=== PATIENT | male | born 1935 | race Caucasian/White ===

== ENCOUNTER 2023-09-23 15:59 | Emergency (ER) | payer MEDICARE, SELFPAY ==
[2023-09-23 16:01] VITALS: BP 150/86; PULSE 76; RESP 16; TEMP 36.4; O2SAT 95; BMI 15.9
--- NOTE | 2023-09-23 16:31 | CT_ITS ---
INDICATION: trauma EXAMINATION: CT Spine Cervical W/O Contrast Injection TECHNIQUE: Helically acquired images were obtained of the cervical spine. 2D reformatted images were reviewed. A radiation dose optimization technique was used for this scan. IV Contrast dosage and agent: None. COMPARISON: None. FINDINGS: VERTEBRAE: No fracture or traumatic subluxation. No discrete lytic or blastic abnormality. Normal alignment. Normal craniocervical junction and cervicothoracic junction. 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 No critical stenosis. NECK SOFT TISSUES: No prevertebral soft tissue swelling. There is no cervical adenopathy. LUNG APICES: Clear. CT/Spine Cervical without Contras IMPRESSION: No evidence of acute cervical spinal fracture or spondylolisthesis. Severe multilevel degenerative disc disease and spondylosis. Electronically Signed: Abdi Lester MD at 17:35 EST ,
--- NOTE | 2023-09-23 16:31 | CT_ITS ---
EXAMINATION : Head CT w/out contrast HISTORY : trauma COMPARISON : None. TECHNIQUE : Multiple contiguous axial images were obtained from the skull base to the vertex without intravenous contrast. A radiation dose optimization technique was used for this scan. FINDINGS : There is no evidence for acute intracranial hemorrhage, mass effect, or midline shift. There is no extra-axial fluid collection. There are periventricular white matter changes consistent with chronic microvascular ischemic disease. There is sulcal widening and ventricular enlargement consistent with cerebral atrophy. There is normal werner-white differentiation, without CT evidence of acute ischemia or infarct. The skull base and calvarium are unremarkable. The orbits are unremarkable. The paranasal sinuses are clear. The mastoid air cells are well-aerated. The soft tissues are unremarkable. CT/Brain/Head without Contrast IMPRESSION: No acute intracranial abnormality. Chronic involutional and ischemic changes of the brain. Electronically Signed: Abdi Lester MD at 17:31 EST ,
--- NOTE | 2023-09-23 16:31 | EX.ED.DYSGE1 ---
HPI History of Present Illness Chief Complaint: Fall Informant: patient, family, EMS and SNF Onset/Context/Timing Onset: Today Narrative Narrative: Patient presents via EMS secondary to fall. Patient is currently a resident at the [facility] home and has a history of dementia. He was diagnosed with COVID on September 10 and was hospitalized for short time. Patient reportedly had a fall at 230 this afternoon falling backwards and striking his head. There is no reported loss of consciousness. Patient apparently was complaining of neck pain. He was placed in a c-collar. At this time patient denies any pain. Daughter is at bedside and states he seems to be acting his normal self. He takes aspirin daily but is on no other form of anticoagulation. [facility] Medical History (Updated 09/23/23 @ 17:[address] Iman Webster MD) Anxiety and depression Dementia Diabetes High cholesterol Hypertension Osteoporosis Allergy/AdvReac Type Severity Reaction Status Date / Time No Known Allergies Allergy Verified 09/23/23 16:00 ROS ROS ED ROS Narrative Review of systems limited given the patient's baseline dementia. He denies any complaints to me at this time. Review of Systems ROS Unobtainable: due to mental condition EXAM Physical Exam Const Vital Signs: 09/23/23 16:01 Temperature 97.6 F L Temperature Source Temporal Pulse Rate 76 Respiratory Rate 16 Blood Pressure 150/86 H Blood Pressure Mean 107 Pulse Ox 95 Oxygen Delivery Method Room Air Positive cachectic General Appearance ED: cachectic Nutritional Appearance: cachectic HEENT Reports moist mucous membranes Eyes EOMs intact bilaterally Neck Neck Narrative: C-collar in place. Chest Wall inspection of chest normal and palpation of chest normal Resp normal respiratory effort and clear to auscultation bilaterally Cardio regular rate and regular rhythm GI non-tender Palpation: soft Extremity Extremity Narrative: Moves both upper extremities without difficulty. Equal leg lengths noted to the lower extremities. No pain with logroll or hip manipulation. Neuro Neuro Narrative: Patient alert and answers questions best he can. Baseline dementia. No focal neurologic deficit noted. Skin no rashes or lesions noted MDM MDM MDM Narrative Medical decision making narrative: Patient was sent for CT scan of the head and C-spine to evaluate for fracture, intracranial bleed, edema. Radiography Diagnostic Testing: Clinical Impression(s) from Imaging Studies Brain CT 09/23/23 16:31 IMPRESSION: No acute intracranial abnormality. Chronic involutional and ischemic changes of the brain. Electronically Signed: Abdi Lester MD at 17:31 EST , Cervical Spine CT 09/23/23 16:31 IMPRESSION: No evidence of acute cervical spinal fracture or spondylolisthesis. Severe multilevel degenerative disc disease and spondylosis. Electronically Signed: Abdi Lester MD at 17:35 EST , Treatment and Re-Evaluation :: CT scan of the head reveals no acute intracranial abnormality. Chronic changes noted. CT of the C-spine reveals no evidence of fracture or spondylolisthesis. Degenerative disc disease noted. On repeat evaluation patient remains resting comfortably in bed. C-collar was removed. Test results discussed with the patient as well as his daughter at bedside. He will be discharged back to the [facility]. Return instructions given. Discharge Plan Triage Chief Complaint: Fall ED Provider: Iman Webster Dx/Rx/DC Orders Clinical Impression: CHI (closed head injury), Fall Instructions: ED Head Injury (Adult) Primary Care Provider: Javy Lynn Sr. Referrals: Javy Lynn Sr., DO [Primary Care Provider] - As Needed Disposition Disposition: Alf Facility Discharge Location: [facility]
== END 2023-09-23 18:43 | disposition skilled nursing facility (03) ==
PROVIDERS: Emergency Provider Emergency Medicine; PCP Internal Medicine; Visit Provider Emergency Medicine
DX: S09.8XXA Other specified injuries of head, initial encounter (principal); E11.9 Type 2 diabetes mellitus without complications; I10 Essential (primary) hypertension; E78.00 Pure hypercholesterolemia, unspecified; W18.30XA Fall on same level, unspecified, initial encounter; Y92.89 Other specified places as the place of occurrence of the external cause
CPT/HCPCS: 70450; 72125; 99284

== ENCOUNTER → 2023-11-02 | Outpatient (REF) | payer MEDICARE, SELFPAY ==
[2023-11-02 09:56] LABS: Mucous, Urine 0 SEEN /hpf (<or=2+); Red Blood Cells-Urine 0 SEEN /hpf (0-5); Squamous Epithelial Cells - UA 0 SEEN /hpf (0-5)
[2023-11-02 10:01] LABS: Color, Urine Yellow (Yellow); Glucose, Dipstick Normal (Normal); Ketone-Dipstick Negative (Negative); Leukocyte Esterase-Dipstick 100 /ul (Negative); Nitrite-Dipstick Negative (Negative); Occult Blood-Urine 10 /ul (Negative); Protein-Dipstick 15 mg/dl (Negative); Specific Gravity, Urine 1.015 (1.002-1.030); Urine Bilirubin Dipstick Negative (Negative); Urine Clarity Clear (Clear); Urine Urobilinogen Normal (Normal); Urine pH 6.5 (5.0 - 8.0)
[2023-11-02 10:33] LABS: Bacteria 1+ /hpf (None Seen); White Blood Cells 10-25 SEEN /hpf (0-5)
== END ==
LOC: OLS.ACH 05:00
PROVIDERS: PCP Internal Medicine; Visit Provider Internal Medicine
DX: N39.0 Urinary tract infection, site not specified (principal)
CPT/HCPCS: 81001; 87077; 87086; 87088; 87186

== ENCOUNTER → 2023-12-05 | Outpatient (REF) | payer MEDICARE, SELFPAY ==
[2023-12-05 09:11] LABS: Hematocrit 37.4 % (40-54); Hemoglobin 12.2 g/dL (13.0-16.5); Mean Corp Hgb Conc 32.6 g/dL (32-36); Mean Corpuscular Hgb 29.8 pg (27.0-32.0); Mean Corpuscular Volume 91.2 fL (80-94); Mean Platelet Vol. 11.9 fl (6.2-12.0); Platelet Count 138 K/mm3 (150-450); RBC Distribution Width CV 13.2 % (11.6-14.6)
[2023-12-05 09:45] LABS: ALB/GLOB Ratio 0.8 RATIO (0.9-2.4); AST(SGOT) 26 U/L (15-37); Alanine Aminotransfer ALT/SGPT 32 U/L (16-61); Albumin, Serum 3.1 g/dL (3.2-5.0); Alkaline Phosphatase 114 U/L (45-117); Anion Gap 8 (5-15); BUN 40 mg/dL (7-18); BUN/Creat Ratio 33.1 RATIO (10-20); Calcium,Total 9.4 mg/dL (8.5-10.1); Chloride 107 mmol/L (98-107); Creatinine, Serum 1.21 mg/dL (0.70-1.30); EST Glomerular Filtration Rate 60 mL/min (>60); Est Glom Filt Rate - Afr Amer 73 mL/min (>60); Globulin 3.7 g/dL (2.2-4.2); Glucose 109 mg/dL (74-106); Potassium 4.6 mmol/L (3.5-5.1); Protein, Total 6.8 g/dL (6.4-8.2); Sodium Level 140 mmol/L (136-145)
== END ==
LOC: OLS.ACH 05:00
PROVIDERS: PCP Internal Medicine; Visit Provider Internal Medicine
DX: I10 Essential (primary) hypertension (principal); E78.5 Hyperlipidemia, unspecified; E11.3293 Type 2 diabetes mellitus with mild nonproliferative diabetic retinopathy without macular edema, bilateral
CPT/HCPCS: 36415; 80053; 85027

== ENCOUNTER → 2024-01-14 | Outpatient (REF) | payer MEDICARE, SELFPAY ==
[2024-01-14 09:46] LABS: Hematocrit 39.3 % (40-54); Hemoglobin 12.3 g/dL (13.0-16.5); Mean Corp Hgb Conc 31.3 g/dL (32-36); Mean Corpuscular Hgb 29.2 pg (27.0-32.0); Mean Corpuscular Volume 93.3 fL (80-94); Mean Platelet Vol. 12.2 fl (6.2-12.0); Platelet Count 131 K/mm3 (150-450); RBC Distribution Width CV 13.3 % (11.6-14.6); RBC Distribution Width SD 45.5 fl (35.1-43.9); Red Blood Count 4.21 M/mm3 (4.6-6.2); White Blood Count 4.9 K/mm3 (4.4-11.0)
[2024-01-14 10:17] LABS: Anion Gap 3 (5-15); BUN 36 mg/dL (7-18); BUN/Creat Ratio 28.1 RATIO (10-20); Calcium,Total 9.8 mg/dL (8.5-10.1); Chloride 108 mmol/L (98-107); Creatinine, Serum 1.28 mg/dL (0.70-1.30); EST Glomerular Filtration Rate 56 mL/min (>60); Est Glom Filt Rate - Afr Amer 68 mL/min (>60); Glucose 114 mg/dL (74-106); Potassium 4.9 mmol/L (3.5-5.1); Sodium Level 143 mmol/L (136-145)
== END ==
LOC: OLS.ACH 04:00
PROVIDERS: PCP Internal Medicine; Referring Provider Internal Medicine; Visit Provider Internal Medicine
DX: R31.9 Hematuria, unspecified (principal)
CPT/HCPCS: 36415; 80048; 85027

== ENCOUNTER → 2024-01-24 | Outpatient (REF) | payer MEDICARE, SELFPAY ==
[2024-01-24 08:42] LABS: Hemoglobin 11.6 g/dL (13.0-16.5); Mean Corp Hgb Conc 32.2 g/dL (32-36); Mean Corpuscular Hgb 29.4 pg (27.0-32.0); Mean Corpuscular Volume 91.1 fL (80-94); Mean Platelet Vol. 11.8 fl (6.2-12.0); Platelet Count 155 K/mm3 (150-450); RBC Distribution Width SD 43.4 fl (35.1-43.9); Red Blood Count 3.95 M/mm3 (4.6-6.2); White Blood Count 4.1 K/mm3 (4.4-11.0)
== END ==
LOC: OLS.ACH 05:00
PROVIDERS: PCP Internal Medicine; Visit Provider Internal Medicine
DX: K92.1 Melena (principal)
CPT/HCPCS: 36415; 85027

== ENCOUNTER → 2024-03-05 | Outpatient (REF) | payer MEDICARE, SELFPAY ==
[2024-03-05 07:15] LABS: Hematocrit 37.9 % (40-54); Hemoglobin 12.2 g/dL (13.0-16.5); Mean Corp Hgb Conc 32.2 g/dL (32-36); Mean Platelet Vol. 11.3 fl (6.2-12.0); Platelet Count 187 K/mm3 (150-450); RBC Distribution Width CV 13.2 % (11.6-14.6); Red Blood Count 4.21 M/mm3 (4.6-6.2); White Blood Count 7.2 K/mm3 (4.4-11.0)
== END ==
LOC: OLS.ACH 04:00
PROVIDERS: PCP Internal Medicine; Referring Provider Internal Medicine; Visit Provider Internal Medicine
DX: I10 Essential (primary) hypertension (principal); E43 Unspecified severe protein-calorie malnutrition
CPT/HCPCS: 36415; 85027

== ENCOUNTER → 2024-03-18 05:00 | Outpatient (REF) | payer MEDICARE, SELFPAY ==
[2024-03-18 10:39] LABS: Hemoglobin A1c 7.1 % (3.8-5.6)
== END ==
LOC: OLS.ACH 05:00
PROVIDERS: PCP Internal Medicine; Visit Provider Internal Medicine
DX: E11.3293 Type 2 diabetes mellitus with mild nonproliferative diabetic retinopathy without macular edema, bilateral (principal)
CPT/HCPCS: 36415; 83036

== ENCOUNTER → 2024-04-01 05:00 | Outpatient (REF) | payer MEDICARE, SELFPAY ==
[2024-04-01 09:50] LABS: Hematocrit 37.7 % (40-54); Mean Corp Hgb Conc 31.8 g/dL (32-36); Mean Corpuscular Hgb 29.3 pg (27.0-32.0); Mean Platelet Vol. 11.6 fl (6.2-12.0); Platelet Count 135 K/mm3 (150-450); RBC Distribution Width CV 13.7 % (11.6-14.6); RBC Distribution Width SD 46.4 fl (35.1-43.9); White Blood Count 4.4 K/mm3 (4.4-11.0)
[2024-04-01 10:23] LABS: Valproic Acid (Depakene) Level 16 ug/mL (50-100)
[2024-04-01 10:28] LABS: ALB/GLOB Ratio 0.9 RATIO (0.9-2.4); AST(SGOT) 15 U/L (15-37); Alanine Aminotransfer ALT/SGPT 25 U/L (16-61); Albumin, Serum 3.3 g/dL (3.2-5.0); Alkaline Phosphatase 115 U/L (45-117); Anion Gap 5 (5-15); BUN 41 mg/dL (7-18); BUN/Creat Ratio 34.7 RATIO (10-20); Calcium,Total 9.6 mg/dL (8.5-10.1); Chloride 105 mmol/L (98-107); Creatinine, Serum 1.18 mg/dL (0.70-1.30); EST Glomerular Filtration Rate 62 mL/min (>60); Est Glom Filt Rate - Afr Amer 75 mL/min (>60); Globulin 3.7 g/dL (2.2-4.2); Glucose 156 mg/dL (74-106); Potassium 4.2 mmol/L (3.5-5.1); Sodium Level 139 mmol/L (136-145)
== END ==
LOC: OLS.ACH 05:00
PROVIDERS: PCP Internal Medicine; Visit Provider Internal Medicine
DX: R45.1 Restlessness and agitation (principal); E43 Unspecified severe protein-calorie malnutrition; E78.5 Hyperlipidemia, unspecified; I10 Essential (primary) hypertension; E11.51 Type 2 diabetes mellitus with diabetic peripheral angiopathy without gangrene; F03.911 Unspecified dementia, unspecified severity, with agitation
CPT/HCPCS: 36415; 80053; 80164; 85027

== ENCOUNTER → 2024-06-09 05:00 | Outpatient (REF) | payer MEDICARE, SELFPAY ==
[2024-06-09 10:13] LABS: Hemoglobin A1c 7.4 % (3.8-5.6)
== END ==
LOC: OLS.ACH 05:00
PROVIDERS: PCP Internal Medicine; Visit Provider Internal Medicine
DX: E11.3293 Type 2 diabetes mellitus with mild nonproliferative diabetic retinopathy without macular edema, bilateral (principal)
CPT/HCPCS: 36415; 83036

== ENCOUNTER → 2024-06-10 04:27 | Outpatient (REF) | payer MEDICARE, SELFPAY ==
[2024-06-10 13:56] LABS: Hemoglobin A1c 7.4 % (3.8-5.6)
== END ==
LOC: OLS.ACH 04:27
PROVIDERS: PCP Internal Medicine; Visit Provider Internal Medicine
DX: E11.3293 Type 2 diabetes mellitus with mild nonproliferative diabetic retinopathy without macular edema, bilateral (principal)
CPT/HCPCS: 36415; 83036

== ENCOUNTER → 2024-07-18 | Outpatient (REF) | payer MEDICARE, SELFPAY ==
[2024-07-18 09:25] LABS: Hematocrit 38.7 % (40-54); Hemoglobin 12.3 g/dL (13.0-16.5); Mean Corp Hgb Conc 31.8 g/dL (32-36); Mean Corpuscular Hgb 29.3 pg (27.0-32.0); Mean Corpuscular Volume 92.1 fL (80-94); Mean Platelet Vol. 11.9 fl (6.2-12.0); Platelet Count 165 K/mm3 (150-450); RBC Distribution Width SD 43.7 fl (35.1-43.9); White Blood Count 5.4 K/mm3 (4.4-11.0)
[2024-07-18 09:35] LABS: Anion Gap 7 (5-15); BUN 38 mg/dL (7-18); BUN/Creat Ratio 28.8 RATIO (10-20); Calcium,Total 9.7 mg/dL (8.5-10.1); Chloride 104 mmol/L (98-107); Creatinine, Serum 1.32 mg/dL (0.70-1.30); EST Glomerular Filtration Rate 54 mL/min (>60); Est Glom Filt Rate - Afr Amer 66 mL/min (>60); Glucose 252 mg/dL (74-106); Potassium 4.2 mmol/L (3.5-5.1); Sodium Level 138 mmol/L (136-145)
== END ==
LOC: OLS.ACH 05:00
PROVIDERS: PCP Internal Medicine; Visit Provider Internal Medicine
DX: I10 Essential (primary) hypertension (principal); E11.3293 Type 2 diabetes mellitus with mild nonproliferative diabetic retinopathy without macular edema, bilateral
CPT/HCPCS: 36415; 80048; 85027

== ENCOUNTER → 2024-08-04 | Outpatient (REF) | payer MEDICARE, SELFPAY ==
[2024-08-04 08:13] LABS: Mucous, Urine 0 SEEN /hpf (<or=2+); Red Blood Cells-Urine 0 SEEN /hpf (0-5)
[2024-08-04 08:31] LABS: Hematocrit 36.7 % (40-54); Mean Corp Hgb Conc 32.7 g/dL (32-36); Mean Corpuscular Hgb 29.9 pg (27.0-32.0); Mean Corpuscular Volume 91.5 fL (80-94); Mean Platelet Vol. 11.4 fl (6.2-12.0); Platelet Count 151 K/mm3 (150-450); RBC Distribution Width CV 13.1 % (11.6-14.6); RBC Distribution Width SD 43.4 fl (35.1-43.9); Red Blood Count 4.01 M/mm3 (4.6-6.2); White Blood Count 6.9 K/mm3 (4.4-11.0)
[2024-08-04 08:46] LABS: Anion Gap 6 (5-15); BUN 36 mg/dL (7-18); BUN/Creat Ratio 26.7 RATIO (10-20); Calcium,Total 9.6 mg/dL (8.5-10.1); Chloride 103 mmol/L (98-107); Creatinine, Serum 1.35 mg/dL (0.70-1.30); EST Glomerular Filtration Rate 53 mL/min (>60); Est Glom Filt Rate - Afr Amer 64 mL/min (>60); Glucose 216 mg/dL (74-106); Potassium 4.4 mmol/L (3.5-5.1); Sodium Level 138 mmol/L (136-145)
[2024-08-04 09:17] LABS: Color, Urine Yellow (Yellow); Glucose, Dipstick 250 mg/dl (Normal); Ketone-Dipstick Negative (Negative); Leukocyte Esterase-Dipstick 500 /ul (Negative); Nitrite-Dipstick Negative (Negative); Occult Blood-Urine 50 /ul (Negative); Protein-Dipstick 100 mg/dl (Negative); Urine Bilirubin Dipstick Negative (Negative); Urine Clarity Sl. Cloudy (Clear); Urine Urobilinogen Normal (Normal)
[2024-08-04 09:31] LABS: Bacteria 1+ /hpf (None Seen)
[2024-08-04 09:32] LABS: White Blood Cells 50-100 SEEN /hpf (0-5)
[2024-08-04 09:34] LABS: Squamous Epithelial Cells - UA 0-5 SEEN /hpf (0-5)
== END ==
LOC: OLS.ACH 04:00
PROVIDERS: PCP Internal Medicine; Visit Provider Internal Medicine
DX: N40.1 Benign prostatic hyperplasia with lower urinary tract symptoms (principal); R62.7 Adult failure to thrive; R39.9 Unspecified symptoms and signs involving the genitourinary system
CPT/HCPCS: 36415; 80048; 81001; 85027; 87086; 87088

== ENCOUNTER → 2024-08-06 | Outpatient (REF) | payer MEDICARE, SELFPAY ==
[2024-08-06 09:33] LABS: Hematocrit 40.3 % (40-54); Hemoglobin 13.3 g/dL (13.0-16.5); Mean Corpuscular Hgb 30.4 pg (27.0-32.0); Mean Corpuscular Volume 92.2 fL (80-94); Mean Platelet Vol. 11.6 fl (6.2-12.0); Platelet Count 161 K/mm3 (150-450); RBC Distribution Width CV 13.1 % (11.6-14.6); RBC Distribution Width SD 43.8 fl (35.1-43.9); Red Blood Count 4.37 M/mm3 (4.6-6.2); White Blood Count 4.9 K/mm3 (4.4-11.0)
== END ==
LOC: OLS.ACH 05:00
PROVIDERS: PCP Internal Medicine; Visit Provider Internal Medicine
DX: R53.1 Weakness (principal); R31.9 Hematuria, unspecified
CPT/HCPCS: 36415; 85027

== ENCOUNTER → 2024-08-27 | Outpatient (REF) | payer MEDICARE, SELFPAY ==
[2024-08-27 07:52] LABS: Hematocrit 33.9 % (40-54); Mean Corp Hgb Conc 32.4 g/dL (32-36); Mean Corpuscular Hgb 29.6 pg (27.0-32.0); Mean Corpuscular Volume 91.4 fL (80-94); Mean Platelet Vol. 11.2 fl (6.2-12.0); Platelet Count 153 K/mm3 (150-450); RBC Distribution Width CV 13.2 % (11.6-14.6); RBC Distribution Width SD 43.2 fl (35.1-43.9); Red Blood Count 3.71 M/mm3 (4.6-6.2); White Blood Count 5.2 K/mm3 (4.4-11.0)
[2024-08-27 08:06] LABS: Anion Gap 5 (5-15); BUN 34 mg/dL (7-18); BUN/Creat Ratio 28.1 RATIO (10-20); Calcium,Total 9.1 mg/dL (8.5-10.1); Chloride 104 mmol/L (98-107); Creatinine, Serum 1.21 mg/dL (0.70-1.30); EST Glomerular Filtration Rate 60 mL/min (>60); Est Glom Filt Rate - Afr Amer 73 mL/min (>60); Glucose 181 mg/dL (74-106); Potassium 4.6 mmol/L (3.5-5.1); Sodium Level 137 mmol/L (136-145)
[2024-08-27 08:34] LABS: Color, Urine Yellow (Yellow); Glucose, Dipstick 250 mg/dl (Normal); Ketone-Dipstick Negative (Negative); Leukocyte Esterase-Dipstick 500 /ul (Negative); Nitrite-Dipstick Negative (Negative); Occult Blood-Urine 250 /ul (Negative); Protein-Dipstick 30 mg/dl (Negative); Specific Gravity, Urine 1.005 (1.002-1.030); Urine Bilirubin Dipstick Negative (Negative); Urine Clarity Sl. Cloudy (Clear); Urine Urobilinogen Normal (Normal)
== END ==
LOC: OLS.ACH 05:00
PROVIDERS: PCP Internal Medicine; Visit Provider Internal Medicine
DX: N40.1 Benign prostatic hyperplasia with lower urinary tract symptoms (principal); R39.9 Unspecified symptoms and signs involving the genitourinary system
CPT/HCPCS: 36415; 80048; 81002; 85027; 87077; 87086; 87088; 87186

== ENCOUNTER → 2024-09-02 | Outpatient (REF) | payer MEDICARE, SELFPAY ==
[2024-09-02 10:06] LABS: Hemoglobin A1c 8.6 % (3.8-5.6)
== END ==
LOC: OLS.ACH 05:00
PROVIDERS: PCP Internal Medicine; Visit Provider Internal Medicine
DX: E11.3293 Type 2 diabetes mellitus with mild nonproliferative diabetic retinopathy without macular edema, bilateral (principal)
CPT/HCPCS: 36415; 83036

== ENCOUNTER → 2024-09-17 05:00 | Outpatient (REF) | payer MEDICARE, SELFPAY ==
[2024-09-17 07:38] LABS: Bacteria 0 SEEN /hpf (None Seen); Mucous, Urine 0 SEEN /hpf (<or=2+); Squamous Epithelial Cells - UA 0 SEEN /hpf (0-5)
[2024-09-17 07:55] LABS: Mean Corp Hgb Conc 33.3 g/dL (32-36); Mean Corpuscular Hgb 30.5 pg (27.0-32.0); Mean Corpuscular Volume 91.6 fL (80-94); Platelet Count 119 K/mm3 (150-450); RBC Distribution Width CV 13.2 % (11.6-14.6); RBC Distribution Width SD 44.2 fl (35.1-43.9); Red Blood Count 3.93 M/mm3 (4.6-6.2)
[2024-09-17 07:56] LABS: Color, Urine Amber (Yellow); Glucose, Dipstick Normal (Normal); Ketone-Dipstick 5 mg/dl (Negative); Leukocyte Esterase-Dipstick 500 /ul (Negative); Nitrite-Dipstick Positive (Negative); Occult Blood-Urine 250 /ul (Negative); Protein-Dipstick 100 mg/dl (Negative); Urine Bilirubin Dipstick Negative (Negative); Urine Clarity Cloudy (Clear); Urine Urobilinogen Normal (Normal); Urine pH 6.5 (5.0 - 8.0)
[2024-09-17 08:03] LABS: Red Blood Cells-Urine > 100 SEEN /hpf (0-5); White Blood Cells >100 SEEN /hpf (0-5)
[2024-09-17 08:16] LABS: ALB/GLOB Ratio 0.8 RATIO (0.9-2.4); AST(SGOT) 17 U/L (15-37); Alanine Aminotransfer ALT/SGPT 24 U/L (16-61); Albumin, Serum 2.9 g/dL (3.2-5.0); Alkaline Phosphatase 97 U/L (45-117); Anion Gap 5 (5-15); BUN 41 mg/dL (7-18); BUN/Creat Ratio 26.8 RATIO (10-20); Chloride 104 mmol/L (98-107); Creatinine, Serum 1.53 mg/dL (0.70-1.30); EST Glomerular Filtration Rate 46 mL/min (>60); Est Glom Filt Rate - Afr Amer 55 mL/min (>60); Globulin 3.5 g/dL (2.2-4.2); Glucose 172 mg/dL (74-106); Potassium 4.4 mmol/L (3.5-5.1); Protein, Total 6.4 g/dL (6.4-8.2); Sodium Level 138 mmol/L (136-145); Valproic Acid (Depakene) Level 10 ug/mL (50-100)
== END ==
LOC: OLS.ACH 05:00
PROVIDERS: PCP Internal Medicine; Visit Provider Internal Medicine
DX: F03.911 Unspecified dementia, unspecified severity, with agitation (principal); J96.11 Chronic respiratory failure with hypoxia; R30.0 Dysuria; N40.1 Benign prostatic hyperplasia with lower urinary tract symptoms
CPT/HCPCS: 36415; 80053; 80164; 81001; 85027; 87077; 87086; 87088

== ENCOUNTER → 2024-10-07 | Outpatient (REF) | payer MEDICARE, SELFPAY ==
[2024-10-07 07:35] LABS: Hematocrit 38.2 % (40-54); Hemoglobin 12.2 g/dL (13.0-16.5); Mean Corp Hgb Conc 31.9 g/dL (32-36); Mean Corpuscular Hgb 29.9 pg (27.0-32.0); Mean Corpuscular Volume 93.6 fL (80-94); Mean Platelet Vol. 11.6 fl (6.2-12.0); Platelet Count 173 K/mm3 (150-450); RBC Distribution Width CV 12.9 % (11.6-14.6); RBC Distribution Width SD 44.7 fl (35.1-43.9); Red Blood Count 4.08 M/mm3 (4.6-6.2); White Blood Count 3.9 K/mm3 (4.4-11.0)
[2024-10-07 08:08] LABS: ALB/GLOB Ratio 0.8 RATIO (0.9-2.4); AST(SGOT) 20 U/L (15-37); Alanine Aminotransfer ALT/SGPT 18 U/L (16-61); Albumin, Serum 2.8 g/dL (3.2-5.0); Alkaline Phosphatase 112 U/L (45-117); Anion Gap 5 (5-15); BUN 38 mg/dL (7-18); BUN/Creat Ratio 31.9 RATIO (10-20); Calcium,Total 9.1 mg/dL (8.5-10.1); Chloride 109 mmol/L (98-107); Creatinine, Serum 1.19 mg/dL (0.70-1.30); EST Glomerular Filtration Rate 61 mL/min (>60); Est Glom Filt Rate - Afr Amer 74 mL/min (>60); Globulin 3.7 g/dL (2.2-4.2); Glucose 89 mg/dL (74-106); Potassium 4.4 mmol/L (3.5-5.1); Protein, Total 6.5 g/dL (6.4-8.2); Sodium Level 139 mmol/L (136-145)
== END ==
LOC: OLS.ACH 05:00
PROVIDERS: PCP Internal Medicine; Visit Provider Internal Medicine
DX: E11.51 Type 2 diabetes mellitus with diabetic peripheral angiopathy without gangrene (principal); E78.5 Hyperlipidemia, unspecified
CPT/HCPCS: 36415; 80053; 85027

== ENCOUNTER → 2024-11-07 05:00 | Outpatient (REF) | payer MEDICARE, SELFPAY ==
[2024-11-07 08:27] LABS: Hematocrit 40.2 % (40-54); Hemoglobin 12.8 g/dL (13.0-16.5); Mean Corp Hgb Conc 31.8 g/dL (32-36); Mean Corpuscular Hgb 29.5 pg (27.0-32.0); Mean Corpuscular Volume 92.6 fL (80-94); Mean Platelet Vol. 11.6 fl (6.2-12.0); Platelet Count 111 K/mm3 (150-450); RBC Distribution Width SD 44.2 fl (35.1-43.9); Red Blood Count 4.34 M/mm3 (4.6-6.2); White Blood Count 5.6 K/mm3 (4.4-11.0)
[2024-11-07 08:52] LABS: Anion Gap 6 (5-15); BUN 33 mg/dL (7-18); BUN/Creat Ratio 21.4 RATIO (10-20); Calcium,Total 9.5 mg/dL (8.5-10.1); Chloride 106 mmol/L (98-107); Creatinine, Serum 1.54 mg/dL (0.70-1.30); EST Glomerular Filtration Rate 45 mL/min (>60); Est Glom Filt Rate - Afr Amer 55 mL/min (>60); Glucose 173 mg/dL (74-106); Potassium 4.7 mmol/L (3.5-5.1); Sodium Level 139 mmol/L (136-145)
== END ==
LOC: OLS.ACH 05:00
PROVIDERS: PCP Internal Medicine; Visit Provider Internal Medicine
DX: J96.11 Chronic respiratory failure with hypoxia (principal)
CPT/HCPCS: 36415; 80048; 85027

== ENCOUNTER → 2024-11-26 05:00 | Outpatient (REF) | payer MEDICARE, SELFPAY ==
[2024-11-26 08:32] LABS: Hemoglobin A1c 7.7 % (3.8-5.6)
== END ==
LOC: OLS.ACH 05:00
PROVIDERS: PCP Internal Medicine; Visit Provider Internal Medicine
DX: E11.3293 Type 2 diabetes mellitus with mild nonproliferative diabetic retinopathy without macular edema, bilateral (principal)
CPT/HCPCS: 36415; 83036

== ENCOUNTER → 2025-02-11 | Outpatient (REF) | payer MEDICARE, SELFPAY ==
[2025-02-13 08:21] LABS: Bacteria 0 SEEN /hpf (None Seen); Mucous, Urine 0 SEEN /hpf (<or=2+); Squamous Epithelial Cells - UA 0 SEEN /hpf (0-5)
[2025-02-13 08:56] LABS: Color, Urine Yellow (Yellow); Glucose, Dipstick Normal (Normal); Ketone-Dipstick Negative (Negative); Leukocyte Esterase-Dipstick 500 /ul (Negative); Nitrite-Dipstick Negative (Negative); Occult Blood-Urine 25 /ul (Negative); Protein-Dipstick 100 mg/dl (Negative); Specific Gravity, Urine 1.015 (1.002-1.030); Urine Bilirubin Dipstick Negative (Negative); Urine Clarity Sl. Cloudy (Clear); Urine Urobilinogen Normal (Normal)
[2025-02-13 09:10] LABS: White Blood Cells 10-25 SEEN /hpf (0-5)
[2025-02-13 09:11] LABS: Red Blood Cells-Urine 0-5 SEEN /hpf (0-5)
== END ==
LOC: OLS.ACH 13:40
PROVIDERS: PCP Internal Medicine; Visit Provider Internal Medicine
DX: J96.11 Chronic respiratory failure with hypoxia (principal); E11.9 Type 2 diabetes mellitus without complications; I10 Essential (primary) hypertension; R39.9 Unspecified symptoms and signs involving the genitourinary system
CPT/HCPCS: 81001; 87077; 87086; 87088; 87186

== ENCOUNTER → 2025-02-12 | Outpatient (REF) | payer MEDICARE, SELFPAY ==
[2025-02-12 07:32] LABS: Hematocrit 32.8 % (40-54); Hemoglobin 10.9 g/dL (13.0-16.5); Mean Corp Hgb Conc 33.2 g/dL (32-36); Mean Corpuscular Hgb 30.6 pg (27.0-32.0); Mean Corpuscular Volume 92.1 fL (80-94); Mean Platelet Vol. 11.7 fl (6.2-12.0); Platelet Count 142 K/mm3 (150-450); RBC Distribution Width CV 13.2 % (11.6-14.6); RBC Distribution Width SD 44.4 fl (35.1-43.9); Red Blood Count 3.56 M/mm3 (4.6-6.2); White Blood Count 5.7 K/mm3 (4.4-11.0)
[2025-02-12 07:34] LABS: Anion Gap 10 (5-15); BUN 34 mg/dL (4-19); BUN/Creat Ratio 27.2 RATIO (10-20); Carbon Dioxide 26.1 mmol/L (21.0-32.0); Chloride 103 mmol/L (98-108); Creatinine, Serum 1.25 mg/dL (0.70-1.20); EST Glomerular Filtration Rate 55 (>60); Glucose 154 mg/dL (70-99); Potassium 4.4 mmol/L (3.3-5.1); Sodium Level 139 mmol/L (133-145)
== END ==
LOC: OLS.ACH 05:00
PROVIDERS: PCP Internal Medicine; Visit Provider Internal Medicine
DX: J96.11 Chronic respiratory failure with hypoxia (principal); E11.9 Type 2 diabetes mellitus without complications; I10 Essential (primary) hypertension
CPT/HCPCS: 36415; 80048; 85027

== ENCOUNTER → 2025-02-17 | Outpatient (REF) | payer MEDICARE, SELFPAY ==
[2025-02-17 09:45] LABS: Hemoglobin A1c 6.9 % (<=5.6)
== END ==
LOC: OLS.ACH 04:00
PROVIDERS: PCP Internal Medicine; Referring Provider Internal Medicine; Visit Provider Internal Medicine
DX: E11.3293 Type 2 diabetes mellitus with mild nonproliferative diabetic retinopathy without macular edema, bilateral (principal)
CPT/HCPCS: 36415; 83036

== ENCOUNTER → 2025-03-02 | Outpatient (REF) | payer MEDICARE, SELFPAY ==
[2025-03-02 10:09] LABS: Hemoglobin A1c 6.9 % (<=5.6)
== END ==
LOC: OLS.ACH 05:00
PROVIDERS: PCP Internal Medicine; Visit Provider Internal Medicine
DX: E11.9 Type 2 diabetes mellitus without complications (principal)
CPT/HCPCS: 36415; 83036

== ENCOUNTER → 2025-03-03 05:40 | Outpatient (REF) | payer MEDICARE, SELFPAY ==
[2025-03-03 10:03] LABS: Hematocrit 37.6 % (40-54); Hemoglobin 12.5 g/dL (13.0-16.5); Mean Corp Hgb Conc 33.2 g/dL (32-36); Mean Corpuscular Hgb 30.6 pg (27.0-32.0); Mean Corpuscular Volume 91.9 fL (80-94); Mean Platelet Vol. 11.1 fl (6.2-12.0); Platelet Count 163 K/mm3 (150-450); RBC Distribution Width CV 12.7 % (11.6-14.6); RBC Distribution Width SD 42.8 fl (35.1-43.9); Red Blood Count 4.09 M/mm3 (4.6-6.2); White Blood Count 7.4 K/mm3 (4.4-11.0)
[2025-03-03 10:39] LABS: ALB/GLOB Ratio 1.2 RATIO (0.9-2.4); AST(SGOT) 18 U/L (<=37); Alanine Aminotransfer ALT/SGPT 12 U/L (<=46); Albumin, Serum 3.7 g/dL (3.4-4.8); Alkaline Phosphatase 133 U/L (40-129); Anion Gap 9 (5-15); BUN 27 mg/dL (4-19); BUN/Creat Ratio 24.7 RATIO (10-20); Calcium,Total 9.8 mg/dL (7.6-11.0); Carbon Dioxide 27.1 mmol/L (21.0-32.0); Chloride 102 mmol/L (98-108); Creatinine, Serum 1.08 mg/dL (0.70-1.20); EST Glomerular Filtration Rate 66 (>60); Globulin 3.2 g/dL (2.2-4.2); Glucose 162 mg/dL (70-99); Potassium 5.1 mmol/L (3.3-5.1); Protein, Total 6.8 g/dL (5.9-8.4); Sodium Level 138 mmol/L (133-145); Total Bilirubin 0.48 mg/dL (0.00-1.30); Valproic Acid (Depakene) Level 19 ug/mL (50-100)
== END ==
LOC: OLS.ACH 05:40
PROVIDERS: PCP Internal Medicine; Visit Provider Internal Medicine
DX: I10 Essential (primary) hypertension (principal); E78.5 Hyperlipidemia, unspecified; F03.911 Unspecified dementia, unspecified severity, with agitation
CPT/HCPCS: 36415; 80053; 80164; 85027

== ENCOUNTER → 2025-07-08 05:00 | Outpatient (REF) | payer MEDICARE, SELFPAY ==
[2025-07-08 08:23] LABS: Mucous, Urine 0 SEEN /hpf (<or=2+); Red Blood Cells-Urine 0 SEEN /hpf (0-5); Squamous Epithelial Cells - UA 0 SEEN /hpf (0-5)
[2025-07-08 08:32] LABS: Hematocrit 33.4 % (40-54); Hemoglobin 11.1 g/dL (13.0-16.5); Mean Corp Hgb Conc 33.2 g/dL (32-36); Mean Corpuscular Volume 90.0 fL (80-94); Mean Platelet Vol. 11.4 fl (6.2-12.0); Platelet Count 151 K/mm3 (150-450); RBC Distribution Width CV 13.7 % (11.6-14.6); RBC Distribution Width SD 44.7 fl (35.1-43.9); Red Blood Count 3.71 M/mm3 (4.6-6.2); White Blood Count 4.7 K/mm3 (4.4-11.0)
[2025-07-08 08:33] LABS: Color, Urine Yellow (Yellow); Glucose, Dipstick Normal (Normal); Ketone-Dipstick Negative (Negative); Leukocyte Esterase-Dipstick 100 /ul (Negative); Nitrite-Dipstick Negative (Negative); Occult Blood-Urine 10 /ul (Negative); Protein-Dipstick 30 mg/dl (Negative); Specific Gravity, Urine 1.010 (1.002-1.030); Urine Bilirubin Dipstick Negative (Negative)
[2025-07-08 09:10] LABS: Anion Gap 10 (5-15); BUN 30 mg/dL (4-19); BUN/Creat Ratio 25.7 RATIO (10-20); Calcium,Total 9.3 mg/dL (7.6-11.0); Carbon Dioxide 27.2 mmol/L (21.0-32.0); Chloride 102 mmol/L (98-108); Potassium 4.2 mmol/L (3.3-5.1)
[2025-07-08 09:15] LABS: Glucose 111 mg/dL (70-99)
== END ==
LOC: OLS.ACH 05:00
PROVIDERS: PCP Internal Medicine; Visit Provider Internal Medicine
DX: R45.1 Restlessness and agitation (principal); E11.3293 Type 2 diabetes mellitus with mild nonproliferative diabetic retinopathy without macular edema, bilateral
CPT/HCPCS: 36415; 80048; 81001; 85027; 87077; 87086; 87088; 87186

== ENCOUNTER → 2025-08-18 05:00 | Outpatient (REF) | payer MEDICARE, SELFPAY ==
--- OUTSIDE RECORDS SUMMARY | 2025-08-18 04:17 | XMS RPT_ITS | CCD ---
Author Organization [facility] ion [facility] Care Team Providers Care Director Of Clinical Education Name Role Phone Dudley Cobb Primary Care Unavailable Dudley Cobb Referring Unavailable ZAIN SAMAYOA Attending Unavailjenni Cobb MD, Dudley Primary Care Provider Marj Plasencia Primary Care Provider Marj Plasencia Primary Care Provider [phone] Deperro Sr. DO, Dr. Palafox Primary Care Provider Leah DRUMMOND, Javy Attending Provider Unavailable Deperro Sr. DO, Dr. Palafox Primary Care Provider Leah DRUMMOND, Javy Attending Provider Unavailable Leah DRUMMOND, Javy Referring Provider Unavailable JOSELITO LIU Attending Unavailable MARJ PLASENCIA Primary Care Unavailable MARJ PLASENCIA Primary Care Unavailable JUAN A, SHAY Admitting Unavailable DELEON, TRAE Consulting Unavailable ANTONIO CARDONA Attending Unavailable Deperro OLS, Javy Attending Unavailable Deperro Sr., Javy Primary Care Unavailable Deperro OLS, Javy Attending Unavailable Deperro Sr., Javy Primary Care Unavailable Deperro OLS, Javy Attending Unavailable Deperro Sr., Javy Primary Care Unavailable Deperro OLS, Ajvy Attending Unavailable Deperro Sr., Javy Primary Care Unavailable Deperro OLS, Javy Attending Unavailable Deperro Sr., Javy Primary Care Unavailable Deperro OLS, Javy Attending Unavailable Deperro Sr., Javy Primary Care Unavailable Deperro OLS, Javy Attending Unavailable Deperro Sr., Javy Primary Care Unavailable Deperro OLS, Javy Attending Unavailable Deperro Sr., Javy Primary Care Unavailable Deperro Sr., Javy Primary Care Unavailable Deperro OLS, Javy Attending Unavailable Deperro OLS, Javy Attending Unavailable Deperro Sr., Javy Primary Care Unavailable Deperro OLS, Javy Attending Unavailable Deperro Sr., Javy Primary Care Unavailable Deperro Sr., Javy Primary Care Unavailable Deperro OLS, Javy Attending Unavailable Deperro OLS, Javy Attending Unavailable Deperro Sr., Javy Primary Care Unavailable Deperro OLS, Javy Attending Unavailable Deperro Sr., Javy Primary Care Unavailable Deperro Sr., Javy Primary Care Unavailable Deperro OLS, Javy Attending Unavailable Deperro OLS, Javy Attending Unavailable Deperro Sr., Javy Primary Care Unavailable Deperro OLS, Javy Referring Unavailable Deperro OLS, Javy Attending Unavailable Deperro Sr., Javy Primary Care Unavailable Medications Current Medications Medication Drug Class(es) Dates Sig (Normalized) Sig (Original) acetaminophen 325 mg oral tablet (15 sources) Start: 04-02-2025 End: 04-12-2025 take 3 tablets by mouth every six hours as needed for pain and pain acetaminophen (Tylenol) 325 MG tablet Take 3 tablets (975 mg) by mouth every 6 hours as needed for mild pain (1-3) or moderate pain (4-6) for up to 10 days. 04/02/2025 04/12/2025 Active Start: 04-01-2025 End: 04-02-2025 take 1 tablet by mouth every six hours as needed for pain 650 mg, Oral, Every 6 hours PRN, mild pain (1-3), Starting on Sun04/01/25 at 0845, Maximum dose of acetaminophen is 4000 mg from all sources in 24 hours. Start: 12-07-2023 End: 12-12-2023 take 1 tablet by mouth every six hours as needed for pain acetaminophen (Tylenol) tablet 650 mg Start: 09-10-2023 End: 09-19-2023 take 1 tablet by mouth every six hours as needed for pain and fever acetaminophen (Tylenol) tablet 650 mg Start: 09-10-2023 End: 09-10-2023 acetaminophen (Tylenol) supp ository 650 mg Start: 01-17-2023 End: 01-26-2023 take 1 tablet by mouth every six hours as needed for pain and fever acetaminophen (Tylenol) tablet 650 mg Start: 01-05-2023 End: 01-05-2023 acetaminophen (Tylenol) tabl et 1,000 mg aspirin 81 mg delayed release oral tablet (9 sources) Platelet Aggregation Inhibitor, Nonsteroidal Anti-inflammatory Drug Start: 04-01-2025 End: 05-01-2025 take 1 tablet by mouth twice daily aspirin 81 MG EC tablet Take 1 tablet (81 mg) by mouth 2 times daily for 58 doses. 04/02/2025 05/01/2025 Active cefdinir 300 mg oral capsule (2 sources) Cephalosporin Antibacterial Start: 12-12-2023 End: 12-14-2023 take 1 capsule by mouth twice daily cefdinir (Omnicef) 300 MG capsule Take 1 capsule (300 mg) by mouth 2 times daily for 2 days. 4 capsule 0 12/12/2023 12/14/2023 Active insulin glargine 100 unt/ml injectable solution (20 sources) Insulin Analog Start: 12-12-2023 End: 04-02-2025 inject 4 [IU] by subcutaneous injection once daily insulin glargine (Lantus) 100 UNIT/ML injection Inject 4 Units under the skin Nightly. 10 mL 12 12/12/2023 Active Start: 12-10-2023 End: 12-12-2023 insulin glargine (Lantus) injection 4 Units Start: 12-07-2023 End: 12-10-2023 inject 14 [IU] by subcutaneous injection once daily 14 Units, SubCUTAneous, Nightly, First dose on Sun12/07/23 at 2100 Start: 09-16-2023 End: 09-19-2023 insulin glargine (Lantus) injection 10 Units Start: 09-11-2023 End: 09-16-2023 insulin glargine (Lantus) injection 5 Units Start: 01-19-2023 End: 01-19-2024 inject 14 [IU] by subcutaneous injection once daily insulin glargine (Lantus) 100 UNIT/ML pen Inject 14 Units under the skin Nightly. 0 01/19/2023 12/12/2023 Discontinued (Stop taking at discharge) Start: 01-17-2023 End: 01-26-2023 inject 14 [IU] by subcutaneous injection once daily 14 Units, SubCUTAneous, Nightly, First dose on Sun01/17/23 at 2355 Start: 03-06-2022 End: 03-06-2023 inject 8 [IU] by subcutaneous injection once daily insulin glargine (Lantus) 100 UNIT/ML pen INJECT 8UNITS UNDER THE SKIN NIGHTLY 15 mL 3 03/06/2022 01/19/2023 Discontinued (Reorder) Completed/Discontinued Medications Medication Drug Class(es) Dates Sig (Normalized) Sig (Original) albuterol 0.833 mg/ml / ipratropium bromide 0.167 mg/ml inhalation solution (6 sources) Anticholinergic, beta2-Adrenergic Agonist Start: 12-08-2023 End: 12-12-2023 ipratropium-albute rol (Duo-Neb) 0.5-2.5 mg/3 mL nebulizer solution 3 mL Start: 12-07-2023 End: 12-08-2023 3 mL, Nebulization, Every 4 hours while awake, First dose on Sun12/07/23 at 0600 barium sulfate (Varibar [place], Varibar Honey) 40 % suspension 5 mL (2 sources) Start: 04-02-2025 End: 04-02-2025 take 5 mL by mouth once 5 mL, Oral, Once, On Judith 04/02/25 at 0930, For 1 dose barium sulfate (Varibar Pudding) 40 % oral paste 5 mL (2 sources) Start: 04-02-2025 End: 04-02-2025 5 mL, Oral, Once, On Judith 04/02/25 at 0930, For 1 dose, Administer with oral syringe or spoon. Max cumulative dose of 30 mL. Discard any unused product 21 days after tube opened. barium sulfate (Varibar THIN Liquid) 40 % suspension 5 mL (2 sources) Start: 04-02-2025 End: 04-02-2025 take 5 mL by mouth once 5 mL, Oral, Once, On Judith 04/02/25 at 0930, For 1 dose ceFAZolin (Ancef) 2,000 mg in sodium chloride 0.9 % 100 mL IVPB (2 sources) Start: 03-31-2025 End: 04-01-2025 take 2000 mg intravenously every eight hours 2,000 mg, IntraVENous, at 200 mL/hr, Administer over 30 Minutes, Every 8 hours, First dose on Sun03/31/25 at 2300, For 2 doses, Phase II/On Unit, Mini-Bag Plus bag, Suspected Indication (Select all that apply): Surgical Prophylaxis cefTRIAXone (Rocephin) 1,000 mg in sodium chloride 0.9 % 50 mL IVPB Mini-Bag Plus (2 sources) Start: 12-08-2023 End: 12-12-2023 cefTRIAXone (Rocephin) 1,000 mg in sodium chloride 0.9 % 50 mL IVPB Mini-Bag Plus cefuroxime 250 mg oral tablet (2 sources) Cephalosporin Antibacterial Start: 01-09-2023 End: 01-19-2023 take 1 tablet by mouth twice daily cefuroxime (Ceftin) 250 MG tablet Take 250 mg by mouth 2 times daily. For 10 days 0 01/09/2023 01/19/2023 cholecalciferol 0.05 mg oral tablet (20 sources) Vitamin D Start: 03-31-2025 End: 04-02-2025 take 2000 [IU] by mouth once daily 2,000 Units, Oral, Daily, First dose on Sun03/31/25 at 0915 cholecalciferol (Vitamin D-3) 50 MCG (2000 UT) capsule Take 2,000 Units by mouth. Active cholecalciferol 9.52 unt/ml / glucose 357 mg/ml oral gel (8 sources) Vitamin D Start: 03-31-2025 End: 04-02-2025 Start: 12-07-2023 End: 12-12-2023 15 g, Oral, As needed, low b lood sugar, Starting on Sun12/07/23 at 0442, If blood glucose less than 50 mg/dL and patient ALERT and NOT NPO, give 2 tubes glucose gel. If blood glucose less than 70 mg/dL and patient ALERT and NOT NPO, give 1 tube glucose gel. Repeat blood glucose in 15 minutes. If blood glucose is less than 70 mg/dL, repeat treatment and recheck blood glucose in 15 minutes x2 and notify provider. Start: 09-10-2023 End: 09-19-2023 15 g, Oral, As needed, low b lood sugar, Starting on Sun09/10/23 at 2030, If blood glucose less than 50 mg/dL and patient ALERT and NOT NPO, give 2 tubes glucose gel. If blood glucose less than 70 mg/dL and patient ALERT and NOT NPO, give 1 tube glucose gel. Repeat blood glucose in 15 minutes. If blood glucose is less than 70 mg/dL, repeat treatment and recheck blood glucose in 15 minutes x2 and notify provider. Start: 01-17-2023 End: 01-26-2023 15 g, Oral, As needed, low b lood sugar, Starting on Sun01/17/23 at 2353 If blood glucose less than 50 mg/dL and patient ALERT and NOT NPO, give 2 tubes glucose gel. If blood glucose less than 70 mg/dL and patient ALERT and NOT NPO, give 1 tube glucose gel. Repeat blood glucose in 15 minutes. If blood glucose is less than 70 mg/dL, repeat treatment and recheck blood glucose in 15 minutes x2 and notify provider. dexamethasone 6 mg oral tablet (8 sources) Corticosteroid Start: 09-18-2023 End: 12-12-2023 take 1 tablet by mouth once daily dexAMETHasone (Decadron) 6 MG tablet Take 1 tablet (6 mg) by mouth daily for 3 days. 0 09/18/2023 12/12/2023 Discontinued (Stop taking at discharge) Start: 09-10-2023 End: 09-19-2023 6 mg, IntraVENous, Every 24 hours, First dose on Sun09/10/23 at 2200, For 10 doses Start: 09-10-2023 End: 09-10-2023 dexAMETHasone (PF) (Decadron ) injection 8 mg docusate sodium 100 mg oral capsule (20 sources) Start: 03-31-2025 End: 04-02-2025 take 100 mg by mouth twice daily 100 mg, Oral, 2 times daily, First dose on Sun03/31/25 at 1000, Do not crush or break. Start: 12-07-2023 End: 12-12-2023 take 100 mg by mouth twice daily 100 mg, Oral, 2 times daily, First dose on Sun12/07/23 at 0900, Do not crush or break. Start: 09-10-2023 End: 09-19-2023 take 100 mg by mouth twice daily 100 mg, Oral, 2 times daily, First dose on Sun09/10/23 at 2100, Do not crush or break. Start: 01-17-2023 End: 01-26-2023 take 100 mg by mouth twice daily 100 mg, Oral, 2 times daily, First dose on Sun01/17/23 at 2355 Do not crush or break. 0.3 ml enoxaparin sodium 100 mg/ml prefilled syringe (4 sources) Low Molecular Weight Heparin Start: 12-07-2023 End: 12-12-2023 inject 30 mg by subcutaneous injection every twenty-four hours 30 mg, SubCUTAneous, Every 24 hours scheduled (Daily), First dose on Sun12/07/23 at 0900, Renal dosing, Indication of Use: Prophylaxis-DVT/PE, Indications: Prophylaxis of Venous Thromboembolism Start: 01-18-2023 End: 01-26-2023 enoxaparin (Lovenox) syringe 30 mg erythromycin 0.005 mg/mg ophthalmic ointment (20 sources) Macrolide, Macrolide Antimicrobial Start: 03-31-2025 End: 04-02-2025 1 Application, Left Eye, Nightly, First dose on Sun03/31/25 at 2100, Apply Amount per Dose: 0.5 inch (~1 cm) per dose. Start: 01-23-2023 End: 01-28-2023 erythromycin (Romycin) 5 MG/ GM ophthalmic ointment Apply to left eye every 6 hours for 5 days. Apply Amount per Dose: 0.5 inch (~1 cm) per dose. 0 01/23/2023 01/28/2023 Active Start: 01-21-2023 End: 01-26-2023 erythromycin (Romycin) 5 MG/ GM ophthalmic ointment Start: 01-05-2023 End: 01-26-2023 erythromycin (Romycin) 5 MG/ GM ophthalmic ointment Apply 1 application to affected eye(s) in the morning and 1 application at noon and 1 application in the evening and 1 application before bedtime. Do all this for [address] a 1/2 inch ribbon of ointment into the lower eyelid. 3.5 g 0 01/05/2023 01/26/2023 Discontinued (Stop taking at discharge) Start: 01-05-2023 End: 01-05-2023 erythromycin (Romycin) 5 MG/ GM ophthalmic ointment glucagon (rdna) 1 mg injecti on (8 sources) Antihypoglycemic Agent Start: 03-31-2025 End: 04-02-2025 Start: 12-07-2023 End: 12-12-2023 1 mg, IntraMUSCular, PRN, lo w blood sugar, Blood glucose less than 70 mg/dL and patient NOT ALERT or NPO and does not have IV access., Starting on Sun12/07/23 at 0442, After administration, attempt intravenous access and start D5W at 100 mL/hr. Repeat blood glucose in 15 minutes x2 and notify provider. Start: 09-10-2023 End: 09-19-2023 1 mg, IntraMUSCular, PRN, lo w blood sugar, Blood glucose less than 70 mg/dL and patient NOT ALERT or NPO and does not have IV access., Starting on Sun09/10/23 at 2030, After administration, attempt intravenous access and start D5W at 100 mL/hr. Repeat blood glucose in 15 minutes x2 and notify provider. Start: 01-17-2023 End: 01-26-2023 take 1 mL intravenously every hour 1 mg, IntraMUSCular, PRN, low blood sugar, Blood glucose less than 70 mg/dL and patient NOT ALERT or NPO and does not have IV access., Starting on Sun01/17/23 at 2353 After administration, attempt intravenous access and start D5W at 100 mL/hr. Repeat blood glucose in 15 minutes x2 and notify provider. 50 ml glucose 50 mg/ml injec tion (16 sources) Start: 03-31-2025 End: 04-02-2025 Start: 03-31-2025 End: 04-02-2025 Start: 12-07-2023 End: 12-12-2023 12.5 g, IntraVENous, PRN, lo w blood sugar, Blood glucose less than 70 mg/dL and patient NOT ALERT or NPO., Starting on Sun12/07/23 at 0442, If patient does not respond within 5 minutes, repeat dose x1. Start D5W at 100 mL/hour until ordering provider can be reached. Repeat blood glucose in 15 minutes. If blood glucose is less than 70 mg/dL, repeat treatment and recheck blood glucose in 15 minutes x2. If using Glucostabilizer, dose as instructed per system. Start: 12-07-2023 End: 12-12-2023 100 mL/hr, IntraVENous, PRN, Blood sugar less than 70mg/dL, Starting on Sun12/07/23 at 0442, Start infusion following administration of dextrose 50% or glucagon. Start: 09-10-2023 End: 09-19-2023 12.5 g, IntraVENous, PRN, lo w blood sugar, Blood glucose less than 70 mg/dL and patient NOT ALERT or NPO., Starting on Sun09/10/23 at 2030, If patient does not respond within 5 minutes, repeat dose x1. Start D5W at 100 mL/hour until ordering provider can be reached. Repeat blood glucose in 15 minutes. If blood glucose is less than 70 mg/dL, repeat treatment and recheck blood glucose in 15 minutes x2. If using Glucostabilizer, dose as instructed per system. Start: 09-10-2023 End: 09-19-2023 100 mL/hr, IntraVENous, PRN, Blood sugar less than 70mg/dL, Starting on Sun09/10/23 at 2030, Start infusion following administration of dextrose 50% or glucagon. Start: 01-17-2023 End: 01-26-2023 12.5 g, IntraVENous, PRN, lo w blood sugar, Blood glucose less than 70 mg/dL and patient NOT ALERT or NPO., Starting on Sun01/17/23 at 2353 If patient does not respond within 5 minutes, repeat dose x1. Start D5W at 100 mL/hour until ordering provider can be reached. Repeat blood glucose in 15 minutes. If blood glucose is less than 70 mg/dL, repeat treatment and recheck blood glucose in 15 minutes x2. If using Glucostabilizer, dose as instructed per system. Start: 01-17-2023 End: 01-26-2023 100 mL/hr, IntraVENous, PRN, Blood sugar less than 70mg/dL, Starting on Sun01/17/23 at 2353 Start infusion following administration of dextrose 50% or glucagon. 250 ml glucose 50 mg/ml / sodium chloride 4.5 mg/ml injection (4 sources) Start: 03-30-2025 End: 03-31-2025 take 75 mL intravenously every hour 75 mL/hr, IntraVENous, Continuous, Starting on Sun03/31/25 at 0915, For 12 hours 1 ml haloperidol 5 mg/ml prefilled syringe (6 sources) Typical Antipsychotic Start: 12-10-2023 End: 12-10-2023 haloperidol lactate (Haldol) injection 2 mg Start: 12-10-2023 End: 12-12-2023 take 1 mg by mouth every six hours as needed haloperidol (Haldol) solution 1 mg Start: 12-07-2023 End: 12-12-2023 inject 1 mg by intramuscular injection every six hours as needed haloperidol lactate (Haldol) injection 1 mg 1 ml hydrALAZINE hydrochloride 20 mg/ml injection (4 sources) Arteriolar Vasodilator Start: 12-07-2023 End: 12-12-2023 take 10 mg intravenously every four hours as needed for hypertension 10 mg, IntraVENous, Every 4 hours PRN, high blood pressure, sbp>150, Starting on Sun12/07/23 at 0442 Start: 09-10-2023 End: 09-19-2023 take 10 mg intravenously every four hours as needed for hypertension 10 mg, IntraVENous, Every 4 hours PRN, high blood pressure, >150, Starting on Sun09/10/23 at 2030 1 ml HYDROmorphone hydrochloride 1 mg/ml cartridge (2 sources) Opioid Agonist Start: 03-31-2025 End: 04-02-2025 take 0.25 mg intravenously every four hours as needed for pain 0.25 mg, IntraVENous, Every 4 hours PRN, severe pain (7-10), Starting on Sun03/31/25 at 1004, If oral and injectable narcotics ordered, use oral first and only use injectable if oral is ineffective or cannot take oral. Do Not give oral and injectable within 1 hour of each other unless specifically ordered. insulin lispro 100 unt/ml injectable solution (6 sources) Insulin Analog Start: 04-01-2025 End: 04-02-2025 0-12 Units, SubCUTAneous, 3 times daily with meals, First dose on Sun04/01/25 at 1200, Medium Dose Correction Algorithm Glucose: Dose: LESS than 150 No Insulin 150-199 2 Units 200-249 4 Units 250-299 6 Units 300-349 8 Units 350-400 10 Units Above 400 12 Units Start: 03-31-2025 End: 03-31-2025 0-12 Units, SubCUTAneous, MS N, high blood sugar, Surgery patient, Starting on Sun03/31/25 at 1322, For 1 dose, Preprocedure, Corrective Low Dose Algorithm Glucose: Dose: 70-180 No Insulin 181-240 4 Unit 241-300 6 Units 301-350 8 Units 351-400 10 Units Over 400 12 Units and notify physician Start: 01-17-2023 End: 01-17-2023 Insulin Lispro (Humalog) inj ection 30 Units Insulin Lispro (Humalog) injection 0-12 Units (2 sources) Start: 12-07-2023 End: 12-12-2023 Insulin Lispro (Humalog) injection 0-12 Units Insulin Lispro (Humalog) injection 0-18 Units (4 sources) Start: 09-17-2023 End: 09-19-2023 Insulin Lispro (Humalog) injection 0-18 Units Start: 01-18-2023 End: 01-26-2023 Insulin Lispro (Humalog) inj ection 0-18 Units iopamidol (Isovue-370) 76 % injection 75 mL (2 sources) Start: 12-06-2023 End: 12-06-2023 iopamidol (Isovue-370) 76 % injection 75 mL lisinopril 20 mg oral tablet (20 sources) Angiotensin Converting Enzyme Inhibitor Start: 03-31-2025 End: 04-02-2025 take 20 mg by mouth once daily 20 mg, Oral, Daily, First dose on Sun03/31/25 at 1000 Start: 12-07-2023 End: 12-12-2023 take 20 mg by mouth once daily 20 mg, Oral, Daily, [facility] dose on Sun12/07/23 at 0900 Start: 09-10-2023 End: 09-11-2023 take 20 mg by mouth once daily 20 mg, Oral, Daily, [facility] dose on Sun09/10/23 at 2034 Start: 01-18-2023 End: 01-26-2023 take 20 mg by mouth once daily 20 mg, Oral, Daily, [facility] dose on Sun01/18/23 at 0900 LORazepam 0.5 mg oral tablet (17 sources) Benzodiazepine Start: 03-31-2025 End: 04-02-2025 Start: 12-07-2023 End: 12-12-2023 take 0.25 mg by mouth four times daily as needed for anxiety 0.25 mg, Oral, 4 times daily PRN, anxiety, Starting on Sun12/07/23 at 0442 Start: 09-11-2023 End: 09-19-2023 take 1 tablet by mouth every four hours as needed for anxiety LORazepam (Ativan) tablet 0.25 mg take 0.25 mg by mout h four times daily as needed for anxiety LORazepam (Ativan) 0.5 MG tablet Take 0.25 mg by mouth 4 times daily as needed for anxiety. Active melatonin 5 mg disintegrating oral tablet (17 sources) Start: 03-31-2025 End: 04-02-2025 take 5 mg by mouth once daily 5 mg, Oral, Nightly, First dose on Sun03/31/25 at 2099 Start: 12-07-2023 End: 12-12-2023 take 5 mg by mouth once daily 5 mg, Oral, Nightly, [facility] dose on Sun12/07/23 at 2099 Start: 09-10-2023 End: 09-19-2023 take 5 mg by mouth once daily as needed for sleep 5 mg, Oral, Nightly PRN, sleep, Starting on Sun09/10/23 at 2030 take 2 capsules by m outh once daily Melatonin 3 MG capsule Take 6 mg by mouth Nightly. Active mirtazapine 15 mg oral tablet (20 sources) Start: 03-31-2025 End: 04-02-2025 take 15 mg by mouth once daily 15 mg, Oral, Nightly, First dose on Sun03/31/25 at 2099 Start: 12-07-2023 End: 12-12-2023 take 15 mg by mouth once daily 15 mg, Oral, Nightly, F irst dose on Sun12/07/23 at 2099 Start: 09-10-2023 End: 09-19-2023 take 15 mg by mouth once daily 15 mg, Oral, Nightly, F irst dose on Sun09/10/23 at 2099 Start: 01-17-2023 End: 01-26-2023 take 15 mg by mouth once daily 15 mg, Oral, Nightly, F irst dose on Sun01/17/23 at 2355 take 7.5 mg by mouth once daily mirtazapine (Remeron) 15 MG tablet Take 7.5 mg by mouth Nightly. 0 Active morphine sulfate 20 mg/ml oral solution (10 sources) Opioid Agonist Start: 12-07-2023 End: 12-12-2023 take 20 mg by mouth every two hours as needed for pain 20 mg, Oral, Every 2 hour PRN, severe pain (7-10), Starting on Sun12/07/23 at 0442, Concentrated product Start: 09-11-2023 End: 09-19-2023 morphine 10 MG/0.5ML concent rated solution 5 mg End: 04-02-2025 take 20 mg by mouth every two hours as needed for pain morphine 10 MG/5ML solution Take 20 mg by mouth every 2 hours as needed for severe pain (7-10). 04/02/2025 Discontinued (Stop taking at discharge) 1 ml naloxone hydrochloride 0.4 mg/ml injection (6 sources) Opioid Antagonist Start: 03-31-2025 End: 04-02-2025 0.4 mg, IntraVENous, Every 5 min PRN, opioid reversal, respiratory depression, Starting on Sun03/31/25 at 1006, +++ For RR Start: 12-07-2023 End: 12-12-2023 naloxone (Narcan) injection 0.4 mg Start: 09-11-2023 End: 09-19-2023 naloxone (Narcan) injection 0.4 mg ondansetron ODT (Zofran-ODT) disintegrating tablet 4 mg (8 sources) Start: 03-31-2025 End: 04-02-2025 take 1 tablet by mouth every eight hours as needed for nausea and vomiting ondansetron ODT (Zofran-ODT) disintegrating tablet 4 mg Start: 12-07-2023 End: 12-12-2023 take 1 tablet by mouth every eight hours as needed for nausea and vomiting ondansetron ODT (Zofran-ODT) disintegrating tablet 4 mg Start: 09-10-2023 End: 09-19-2023 take 1 tablet by mouth every eight hours as needed for nausea and vomiting ondansetron ODT (Zofran-ODT) disintegrating tablet 4 mg Start: 01-17-2023 End: 01-26-2023 take 1 tablet by mouth every eight hours as needed for nausea and vomiting ondansetron ODT (Zofran-ODT) disintegrating tablet 4 mg piperacillin-tazobactam (Zosyn) 3,375 mg in sodium chloride 0.9 % 50 mL IVPB Mini-Bag Plus (2 sources) Start: 12-07-2023 End: 12-08-2023 take 3375 mg intravenously every eight hours 3,375 mg, IntraVENous, at 12.5 mL/hr, Administer over 4 Hours, Every 8 hours, First dose on Sun12/07/23 at 0530, Mini-Bag Plus bag, Suspected Indication (Select all that apply): Pneumonia (HAP) piperacillin-tazobactam (Zosyn) 4.5 g in sodium chloride 0.9 % 100 mL IVPB Mini-Bag Plus (2 sources) Start: 12-06-2023 End: 12-06-2023 piperacillin-ta zobactam (Zosyn) 4.5 g in sodium chloride 0.9 % 100 mL IVPB Mini-Bag Plus polyethylene glycol [id number] mg powder for oral solution (6 sources) Osmotic Laxative Start: 12-07-2023 End: 12-12-2023 take 17 g by mouth every twenty-four hours as needed for constipation 17 g, Oral, Daily PRN, constipation, Starting on Sun12/07/23 at 0442, 1st line for treatment of constipation - give scheduled if no bowel movement in past 24 hours. Start: 09-10-2023 End: 09-19-2023 take 17 g by mouth every twenty-four hours as needed for constipation 17 g, Oral, Daily PRN, constipation, Starting on Sun09/10/23 at 2030, 1st line for treatment of constipation - give scheduled if no bowel movement in past 24 hours. Start: 01-17-2023 End: 01-26-2023 take 17 g by mouth every twenty-four hours as needed for constipation 17 g, Oral, Daily PRN, constipation, Starting on Sun01/17/23 at 2353 1st line for treatment of constipation - give scheduled if no bowel movement in past 24 hours. QUEtiapine 25 mg oral tablet (20 sources) Atypical Antipsychotic Start: 03-31-2025 End: 04-02-2025 take 12.5 mg by mouth twice daily 12.5 mg, Oral, 2 times daily, First dose on Sun03/31/25 at 1000 Start: 03-30-2025 take 25 mg by mouth once 25 mg , Oral, Once, On Sun03/30/25 at 2000, For 1 dose Start: 12-07-2023 End: 12-12-2023 take 12.5 mg by mouth twice daily 12.5 mg, Oral, 2 times daily, First dose on Sun12/07/23 at 0900 Start: 09-10-2023 End: 09-11-2023 take 12.5 mg by mouth twice daily 12.5 mg, Oral, 2 times daily, First dose on Sun09/10/23 at 2100 Start: 01-19-2023 End: 02-18-2023 take 0.5 tablet by mouth twice daily QUEtiapine (SEROquel) 25 MG tablet Take 0.5 tablets (12.5 mg) by mouth 2 times daily. 30 tablet 01/19/2023 Active Start: 01-19-2023 End: 01-26-2023 QUEtiapine (SEROquel) tablet 12.5 mg Start: 03-06-2022 End: 03-06-2023 take 25 mg by mouth once daily 25 mg, Oral, Nightly, F irst dose on Sun01/17/23 at 2355 50 ml sodium chloride 9 mg/m l injection (20 sources) Start: 03-31-2025 End: 04-02-2025 Start: 03-31-2025 End: 04-02-2025 Start: 03-31-2025 End: 04-02-2025 take 5-40 mL intravenously every twelve hours 5-40 mL, IntraVENous, Every 12 hours, First dose on Sun03/31/25 at 0915, For Line Patency: Peripheral IV = 5 mL; Midline or Central Line = 10 mL/lumen. If following IV push medication, administer flush at same rate as the IV push. Flush volume is determined by type of infusion therapy being given. For non-viscous solutions use: Peripheral IV = 5 mL Midline or Central Line = 10 mL/lumen For viscous solutions (i.e. blood components, parenteral nutrition, contrast media, or after obtaining blood sample) use: Peripheral IV = 10 mL Midline or Central Line = 20 mL/lumen Start: 12-07-2023 End: 12-12-2023 10 mL, IntraVENous, Every 12 hours scheduled (2 times per day), First dose on Sun12/07/23 at 0900 Start: 12-07-2023 End: 12-08-2023 take 75 mL intravenously every hour 75 mL/hr, IntraVEN ous, Continuous, Starting on Sun12/07/23 at 0445 Start: 12-07-2023 End: 12-12-2023 take 100 mL intravenously every hour as needed, then take 20 mL intravenously every hour as needed 5-250 mL/hr, IntraVENous, PRN, if patient receiving piggyback infusions and maintenance fluids are not ordered OR KVO fluids to protect IV site / prevent frequent line interruptions/ long duration, Starting on Sun12/07/23 at 0442, For piggyback infusion, administer at same rate as piggyback for a total of 25 mL. Enter 25 mL into dose field and piggyback rate into rate field of order. If piggyback is infusing at a rate less than 100 mL/hr, enter 25 mL into dose field and 100 mL/hr into rate field of order. For KVO fluids, enter rate of 20 mL/hr or less into rate field of order. Start: 12-07-2023 End: 12-12-2023 take 10 mL intravenously once as needed 10 mL, IntraVENous, PRN, line care, Starting on Sun12/07/23 at 0442, After every IV line use Start: 12-06-2023 End: 12-06-2023 sodium chloride 0.9 % bolus 1,674 mL Start: 09-10-2023 End: 09-19-2023 10 mL, IntraVENous, Every 12 hours scheduled (2 times per day), First dose on Sun09/10/23 at 2100 Start: 09-10-2023 End: 09-19-2023 sodium chloride 0.9 % infusi on Start: 09-10-2023 End: 09-19-2023 take 100 mL intravenously every hour as needed, then take 20 mL intravenously every hour as needed 5-250 mL/hr, IntraVENous, PRN, if patient receiving piggyback infusions and maintenance fluids are not ordered OR KVO fluids to protect IV site / prevent frequent line interruptions/ long duration, Starting on Sun09/10/23 at 2030, For piggyback infusion, administer at same rate as piggyback for a total of 25 mL. Enter 25 mL into dose field and piggyback rate into rate field of order. If piggyback is infusing at a rate less than 100 mL/hr, enter 25 mL into dose field and 100 mL/hr into rate field of order. For KVO fluids, enter rate of 20 mL/hr or less into rate field of order. Start: 09-10-2023 End: 09-19-2023 take 10 mL intravenously once as needed 10 mL, IntraVENous, PRN, line care, Starting on Sun09/10/23 at 2030, After every IV line use Start: 09-10-2023 End: 09-10-2023 sodium chloride 0.9 % bolus 1,000 mL Start: 01-17-2023 End: 01-23-2023 take 100 mL intravenously every hour 100 mL/hr, IntraVENous, Continuous, Starting on Sun01/17/23 at 2355 Start: 01-17-2023 End: 01-18-2023 sodium chloride 0.9 % bolus 2,000 mL Start: 01-05-2023 End: 01-05-2023 sodium chloride 0.9 % bolus 1,000 mL tamsulosin hydrochloride 0.4 mg oral capsule (20 sources) alpha-Adrenergic Jeannette Start: 03-31-2025 End: 04-02-2025 Start: 12-07-2023 End: 12-12-2023 take 0.8 mg by mouth once daily 0.8 mg, Oral, Nightly, First dose on Sun12/07/23 at 2100, Do not crush, chew, or split. Start: 09-10-2023 End: 09-19-2023 take 0.8 mg by mouth once daily 0.8 mg, Oral, Nightly, First dose on Sun09/10/23 at 2100, Do not crush, chew, or split. Start: 01-17-2023 End: 01-26-2023 take 0.8 mg by mouth once daily 0.8 mg, Oral, Nightly, First dose on Sun01/17/23 at 2355 Do not crush, chew, or split. Vancomycin (2 sources) Glycopeptide Antibacterial Start: 12-06-2023 End: 12-06-2023 vancomycin IVPB 1500 mg in 250 mL NS (premix) vancomycin (Vancocin) 750 mg in sodium chloride 0.9 % 250 mL IVPB (2 sources) Start: 12-07-2023 End: 12-08-2023 vancomycin (Vancocin) 750 mg in sodium chloride 0.9 % 250 mL IVPB Problems Active Problems Problem Classification Problem Date Documented Date Episodic/Chronic Acute bronchitis (2 sources) Acute bronchiolitis due to respiratory syncytial virus; Translations: [Acute bronchiolitis due to respiratory syncytial virus] 12-06-2023 Episodic Delirium, dementia, and amnestic and other cognitive disorders (19 sources) Delirium due to known physiological condition; Translations: [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] Onset: 03-01-2022 Chronic Diabetes mellitus with complications (20 sources) Type 2 diabetes mellitus with hyperglycemia; Translations: [Hyperosmolar non-ketotic state due to diabetes mellitus] Onset: 03-01-2022 Chronic Diabetes mellitus without complication (20 sources) Type 2 diabetes mellitus without complications; Translations: [Type 2 diabetes mellitus] Onset: 03-01-2022 Chronic Disorders of lipid metabolism (4 sources) Hyperlipidemia, unspecified; Translations: [Hyperlipidemia, unspecified] Onset: 03-01-2022 Chronic E Codes: Fall (10 sources) Fall on same level; Translations: [Fall on same level, unspecified, initial encounter] Episodic Essential hypertension (4 sources) Essential (primary) hypertension; Translations: [Essential (primary) hypertension] Onset: 03-01-2022 Chronic Fracture of neck of femur (hip) (17 sources) Closed intertrochanteric fracture; Translations: [Nondisplaced intertrochanteric fracture of right femur, initial encounter for closed fracture] Onset: 03-30-2025 03-30-2025 Episodic Hyperplasia of prostate (2 sources) Benign prostatic hyperplasia with lower urinary tract symptoms; Translations: [Benign prostatic hyperplasia with lower urinary tract symptoms] Onset: 09-19-2024 Chronic Nutritional deficiencies (17 sources) Nutritional marasmus; Translations: [Unspecified severe protein-calorie malnutrition] Onset: 01-20-2023 Chronic Other eye disorders (2 sources) Discharge from eye; Translations: [Other specified disorders of eye and adnexa] Episodic Other injuries and conditions due to external causes (8 sources) Closed injury of head; Translations: [Unspecified injury of head, initial encounter] 09-23-2023 Episodic Other injuries and conditions due to external causes (2 sources) Personal history of (healed) traumatic fracture; Translations: [Personal history of (healed) traumatic fracture] Onset: 04-15-2025 Episodic Other lower respiratory disease (2 sources) Hypoxia; Translations: [Hypoxemia] 09-10-2023 Episodic Residual codes; unclassified (1 source) Restlessness and agitation; Translations: [Restlessness and agitation] Onset: 07-13-2025 Chronic Residual codes; unclassified (2 sources) Edema of right upper arm; Translations: [Localized edema] 09-17-2023 Episodic Residual codes; unclassified (1 source) History of operation on musculoskeletal system; Translations: [Other specified postprocedural states] 04-15-2025 Episodic Residual codes; unclassified (2 sources) Other specified postprocedural states; Translations: [Other specified postprocedural states] Onset: 04-15-2025 Episodic Respiratory failure; insufficiency; arrest (adult) (2 sources) Chronic respiratory failure with hypoxia; Translations: [Chronic respiratory failure with hypoxia] Onset: 11-17-2024 Chronic Septicemia (except in labor) (2 sources) Sepsis; Translations: [Sepsis, unspecified organism] 12-06-2023 Episodic Unclassified (5 sources) Autogenerated Problem Onset: 03-31-2025 03-31-2025 Unclassified (1 source) Unspecified dementia, unspecified severity, with agitation; Translations: [Unspecified dementia, unspecified severity, with agitation] Onset: 04-04-2025 Past or Other Problems Problem Classification Problem Date Documented Da te Episodic/Chronic Diabetes mellitus without complication (15 sources) Hyperglycemia; Translations: [Hyperglycemia, unspecified] Onset: 01-19-2023 Episodic Fluid and electrolyte disorders (2 sources) Dehydration; Translations: [Dehydration] Onset: 03-01-2022 Episodic Genitourinary symptoms and ill-defined conditions (1 source) Hematuria, unspecified; Translations: [Hematuria, unspecified] Onset: 09-19-2024 Episodic Malaise and fatigue (1 source) Weakness; Translations: [Weakness] Onset: 09-19-2024 Episodic Other diseases of kidney and ureters (2 sources) Disorder of kidney and ureter, unspecified; Translations: [Disorder of kidney and ureter, unspecified] Onset: 03-01-2022 Episodic Other nutritional; endocrine; and metabolic disorders (1 source) Adult failure to thrive; Translations: [Adult failure to thrive] Onset: 09-19-2024 Episodic Pneumonia (except that caused by tuberculosis or sexually transmitted disease) (13 sources) Infective pneumonia; Translations: [Pneumonia, unspecified organism] Onset: 12-06-2023 12-06-2023 Episodic Residual codes; unclassified (2 sources) Do not resuscitate; Translations: [Do not resuscitate] Onset: 03-01-2022 Episodic Viral infection (15 sources) Disease caused by 2019-nCoV; Translations: [COVID-19] Onset: 09-10-2023 09-10-2023 Episodic Results Test Name Value Interpretation Reference Range Facility Urine Cultureon 07-10-2025 [facility] Enterococcus faecalis Beta Lactamase-Reportable Negative [place] Count >100,000 Enterococcus faecalis: REACTION Ampicillin Islt PAVEL <=2 S Ciprofloxacin Islt PAVEL <=0.5 Gentamicin Synergy Susc Islt SYN-S S levoFLOXacin Islt PAVEL 1 S Linezolid Islt PAVEL 2 S Nitrofurantoin Islt PAVEL <=16 S Streptomycin High Pot Susc Islt SYN-S S Tetracycline Islt PAVEL >=16 R Vancomycin Islt PAVEL 1 S Normal [facility] Comment on above: Performed By: #### L 100.0500, L500.4050 #### [facility] [address] [place], [place], [id number] Basic Metabolic Profile (BMP )on 07-08-2025 Glucose [Mass/Vol] 111 mg/dL High 70-99 [facility] Comment on above: Order Comment: 206.2 Performed By: #### L 100.0500, L500.4050 #### [facility] [address] [place], [address] CBC-Complete Blood Cnt No Di ffon 07-08-2025 Erythrocyte distribution width (RBC) [Ratio] 13.7 % Normal 11.6-14.6 [facility] Comment on above: Order Comment: 206.2 Performed By: #### L 100.0500, L500.4050 #### [facility] [address] [place], [address] Hematocrit (Bld) [Volume fraction] 33.4 % Low 40-54 [facility] Comment on above: Order Comment: 206.2 Performed By: #### L 100.0500, L500.4050 #### [facility] [address] [place], [address] Hemoglobin (Bld) [Mass/Vol] 11.1 g/dL Low 13.0-16.5 [facility] Comment on above: Order Comment: 206.2 Performed By: #### L 100.0500, L500.4050 #### [facility] [address] [place], [address] MCH (RBC) [Entitic mass] 29.9 pg Normal 27.0-32.0 [facility] Comment on above: Order Comment: 206.2 Performed By: #### L 100.0500, L500.4050 #### [facility] [address] [place], [address] MCHC (RBC) [Mass/Vol] 33.2 g/dL Normal 32-36 [facility] Comment on above: Order Comment: 206.2 Performed By: #### L 100.0500, L500.4050 #### [facility] [address] [place], [address] MCV (RBC) [Entitic vol] 90.0 fL Normal 80-94 [facility] Comment on above: Order Comment: 206.2 Performed By: #### L 100.0500, L500.4050 #### [facility] [address] [place], [address] Platelet mean volume (Bld) [Entitic vol] 11.4 fL Normal 6.2-12.0 [facility] Comment on above: Order Comment: 206.2 Performed By: #### L 100.0500, L500.4050 #### [facility] [address] [place], [address] Platelets (Bld) [#/Vol] 151 10*3/uL Normal 150-450 [facility] Comment on above: Order Comment: 206.2 Performed By: #### L 100.0500, L500.4050 #### [facility] [address] [place], [address] RBC (Bld) [#/Vol] 3.71 10*6/uL Low 4.6-6.2 [facility] Comment on above: Order Comment: 206.2 Performed By: #### L 100.0500, L500.4050 #### [facility] [address] [place], [address] RDW SD 44.7 fl High 35.1-43.9 [facility] Comment on above: Order Comment: 206.2 Performed By: #### L 100.0500, L500.4050 #### [facility] [address] [place], [address] WBC (Bld) [#/Vol] 4.7 10*3/uL Normal 4.4-11.0 [facility] Comment on above: Order Comment: 206.2 Performed By: #### L 100.0500, L500.4050 #### [facility] [address] [place], [address] Urinalysis, Completeon 07-08 WBC 0-5 SEEN Normal 0-5 [facility] Comment on above: Order Comment: 206.2 Performed By: #### L 100.0500, L500.4050 #### [facility] [address] [place], [address] BACTERIA 0 SEEN Normal None Seen [facility] Comment on above: Order Comment: 206.2 Performed By: #### L 100.0500, L500.4050 #### [facility] [address] [place], [address] EPI,SQUAMOUS 0 SEEN Normal 0-5 [facility] Comment on above: Order Comment: 206.2 Performed By: #### L 100.0500, L500.4050 #### [facility] [address] [place], [address] Mucus Ql (Urine sed) 0 SEEN Normal [facility] Comment on above: Order Comment: 206.2 Performed By: #### L 100.0500, [id number] #### [facility] [address] [place], [address] RBC 0 SEEN Normal 0-5 [facility] Comment on above: Order Comment: 206.2 Performed By: #### L 100.0500, [id number] #### [facility] [address] [place], [address] 29on 04-21-2025 29 Addended by: EBONI JIMENEZ on: 04/21/2025 02:56 PM Modules accepted: Orders [facility] 36on 04-21-2025 36 Faxed orders to number provided. [facility] 36 Let me know what to send over. [facility] 36 Kerline calling due to family request to cancel in office appointment, due to it being difficult on the patient who is has advanced alzheimer's. IPO was cancelled per their request. Please fax orders for imaging and wound care/post op as needed to [phone]. Thank you! DOS: 03/31/25 R ORIF [facility] 36on 04-20-2025 36 Faxed to number provided [facility] Urine Cultureon 04-18-2025 [facility] Enterococcus faecalis [place] Count 11,000-25,000 Enterococcus faecalis: REACTION Ampicillin Islt PAVEL <=2 Ciprofloxacin Islt PAVEL 1 S Gentamicin Synergy Susc Islt SYN-S S levoFLOXacin Islt PAVEL 1 S Linezolid Islt PAVEL 2 S Nitrofurantoin Islt PAVEL <=16 S Streptomycin High Pot Susc Islt SYN-S S Tetracycline Islt PAVEL >=16 R Vancomycin Islt PAVEL 1 S Normal [facility] Comment on above: Performed By: #### L 100.0500, L500.4050 #### [facility] [address] [place], [address] 36on 04-17-2025 36 Name of caller: Carlotta Contact phone number: [phone] Relationship to Patient: [facility] Provider: Dr. Deleon Practice: Ortho Chief Complaint/Reason for Call: Carlotta called in asking if they can do the XR for the 05/06/2025 appointment in house. If yes, please fax orders to [phone]. Please advise. Best time of day caller can be reached: Any Patient advised that office/PCP has 24-48 business hours to return their call: Yes Normal [facility] CBC W/Diff, Automatedon - Absolute Lymph 1.50 X10 3/uL Normal 0.83-4.51 [facility] Comment on above: Performed By: #### L 100.0500, L500.4050 #### [facility] [address] [place], [address] Absolute Neut 4.6 X10 3/uL Normal 2.0-7.7 [facility] Comment on above: Performed By: #### L 100.0500, [id number] #### [facility] [address] [place], [address] Basophils/100 WBC (Bld) 0.4 % Normal 0-1 [facility] Comment on above: Performed By: #### L 100.0500, [id number] #### [facility] [address] [place], [address] Eosinophils/100 WBC (Bld) 3.2 % Normal 0-5 [facility] Comment on above: Performed By: #### L 100.0500, [id number] #### [facility] [address] [place], [address] Erythrocyte distribution width (RBC) [Ratio] 14.2 % Normal 11.6-14.6 [facility] Comment on above: Performed By: #### L 100.0500, [id number] #### [facility] [address] [place], [address] Hematocrit (Bld) [Volume fraction] 34.6 % Low 40-54 [facility] Comment on above: Performed By: #### L 100.0500, [id number] #### [facility] [address] [place], [address] Hemoglobin (Bld) [Mass/Vol] 11.3 g/dL Low 13.0-16.5 [facility] Comment on above: Performed By: #### L 100.0500, [id number] #### [facility] [address] [place], [address] IG% 0.300 Normal 0.0-0.9 [facility] Comment on above: Result Comment: IG% - Immature Granulocytes (promyelocytes, myelocytes and metamyelocytes) > 1% indicates that a LEFT SHIFT is Present. Performed By: #### L 100.0500, L500.4050 #### [facility] [address] [place], [address] Lymphocytes/100 WBC (Bld) 21.8 % Normal 19-41 [facility] Comment on above: Performed By: #### L 100.0500, [id number] #### [facility] [address] [place], [address] MCH (RBC) [Entitic mass] 30.6 pg Normal 27.0-32.0 [facility] Comment on above: Performed By: #### L 100.0500, [id number] #### [facility] [address] [place], [address] MCHC (RBC) [Mass/Vol] 32.7 g/dL Normal 32-36 [facility] Comment on above: Performed By: #### L 100.0500, [id number] #### [facility] [address] [place], [address] MCV (RBC) [Entitic vol] 93.8 fL Normal 80-94 [facility] Comment on above: Performed By: #### L 100.0500, [id number] #### [facility] [address] [place], [address] Monocytes/100 WBC (Bld) 7.1 % Normal 0-10 [facility] Comment on above: Performed By: #### L 100.0500, [id number] #### [facility] [address] [place], [address] Neutrophils/100 WBC (Bld) 67.2 % Normal 47-70 [facility] Comment on above: Performed By: #### L 100.0500, L500.4050 #### [facility] [address] [place], [address] Nucleated RBC (Bld) [#/Vol] 0 10*3/uL Normal 0-5 [facility] Comment on above: Performed By: #### L 100.0500, L500.4050 #### [facility] [address] [place], [address] Platelet mean volume (Bld) [Entitic vol] 11.5 fL Normal 6.2-12.0 [facility] Comment on above: Performed By: #### L 100.0500, L500.4050 #### [facility] [address] [place], [address] Platelets (Bld) [#/Vol] 231 10*3/uL Normal 150-450 [facility] Comment on above: Performed By: #### L 100.0500, [id number] #### [facility] [address] [place], [address] RBC (Bld) [#/Vol] 3.69 10*6/uL Low 4.6-6.2 [facility] Comment on above: Performed By: #### L 100.0500, L500.4050 #### [facility] [address] [place], [address] RDW SD 48.2 fl High 35.1-43.9 [facility] Comment on above: Performed By: #### L 100.0500, L500.4050 #### [facility] [address] [place], [address] WBC (Bld) [#/Vol] 6.9 10*3/uL Normal 4.4-11.0 [facility] Comment on above: Performed By: #### L 100.0500, L500.4050 #### [facility] [address] [place], [address] Comprehensive Metabolic Prof [facility] 04-16-2025 Albumin [Mass/Vol] 3.2 g/dL Low 3.4-4.8 [facility] Comment on above: Performed By: #### L 100.0500, L500.4050 #### [facility] [address] [place], [address] Albumin/Globulin [Mass ratio] 1.1 {ratio} Normal 0.9-2.4 [facility] Comment on above: Performed By: #### L 100.0500, L500.4050 #### [facility] [address] [place], [address] ALK PHOS 177 U/L High 40-129 [facility] Comment on above: Performed By: #### L 100.0500, [id number] #### [facility] [address] [place], [address] ALT [Catalytic activity/Vol] 13 U/L Normal <=46 [facility] Comment on above: Performed By: #### L 100.0500, [id number] #### [facility] [address] [place], [address] AST [Catalytic activity/Vol] 20 U/L Normal <=37 [facility] Comment on above: Performed By: #### L 100.0500, [id number] #### [facility] [address] [place], [address] Bilirubin [Mass/Vol] 0.41 mg/dL Normal 0.00-1.30 [facility] Comment on above: Performed By: #### L 100.0500, [id number] #### [facility] [address] [place], [address] BUN/CRE 29.7 RATIO High 10-20 [facility] Comment on above: Performed By: #### L 100.0500, [id number] #### [facility] [address] [place], [address] Calcium [Mass/Vol] 9.4 mg/dL Normal 7.6-11.0 [facility] Comment on above: Performed By: #### L 100.0500, [id number] #### [facility] [address] [place], [address] Chloride [Moles/Vol] 104 mmol/L Normal 98-108 [facility] Comment on above: Performed By: #### L 100.0500, [id number] #### [facility] [address] [place], [address] CO2 [Moles/Vol] 28.6 mmol/L Normal 21.0-32.0 [facility] Comment on above: Performed By: #### L 100.0500, [id number] #### [facility] [address] [place], [address] Creatinine [Mass/Vol] 1.52 mg/dL High 0.70-1.20 [facility] Comment on above: Performed By: #### L 100.0500, L500.4050 #### [facility] [address] [place], [address] GAP 10 Normal 5-15 [facility] Comment on above: Performed By: #### L 100.0500, [id number] #### [facility] [address] [place], [address] GFR/1.73 sq M.predicted among non-blacks MDRD (S/P/Bld) [Vol rate/Area] 44 mL/min/{1.73_m2} Low >60 [facility] Comment on above: Result Comment: mL/m in/1.73m2 CKD-EPI Creatinine Equation (2020) Performed By: #### L 100.0500, L500.4050 #### [facility] [address] [place], [address] Globulin (S) [Mass/Vol] 3.0 g/dL Normal 2.2-4.2 [facility] Comment on above: Performed By: #### L 100.0500, L500.4050 #### [facility] [address] [place], [address] Glucose [Mass/Vol] 144 mg/dL High 70-99 [facility] Comment on above: Performed By: #### L 100.0500, [id number] #### [facility] [address] [place], [address] Potassium [Moles/Vol] 4.5 mmol/L Normal 3.3-5.1 [facility] Comment on above: Performed By: #### L 100.0500, [id number] #### [facility] [address] [place], [address] Sodium [Moles/Vol] 143 mmol/L Normal 133-145 [facility] Comment on above: Performed By: #### L 100.0500, [id number] #### [facility] [address] [place], [address] T PROT 6.2 g/dL Normal 5.9-8.4 [facility] Comment on above: Performed By: #### L 100.0500, [id number] #### [facility] [address] [place], [address] Urea nitrogen [Mass/Vol] 45 mg/dL High 4-19 [facility] Comment on above: Performed By: #### L 100.0500, [id number] #### [facility] [address] [place], [address] Urinalysis, Completeon 04-16 RBC > 100 SEEN Normal 0-5 [facility] Comment on above: Order Comment: 206.2 Performed By: #### L 100.0500, [id number] #### [facility] [address] [place], [address] WBC >100 SEEN Normal 0-5 [facility] Comment on above: Order Comment: 206.2 Performed By: #### L 100.0500, [id number] #### [facility] [address] [place], [address] BACTERIA 0 SEEN Normal None Seen [facility] Comment on above: Order Comment: 206.2 Performed By: #### L 100.0500, [id number] #### [facility] [address] [place], [address] EPI,SQUAMOUS 0 SEEN Normal 0-5 [facility] Comment on above: Order Comment: 206.2 Performed By: #### L 100.0500, [id number] #### [facility] [address] [place], [address] Mucus Ql (Urine sed) 0 SEEN Normal [facility] Comment on above: Order Comment: 206.2 Performed By: #### L 100.0500, L500.4050 #### [facility] [address] [place], [address] Progress Noteon 04-15-2025 Progress Note DOS: 03/31/25 Surgery: intertan nailing of right hip Surgeon: Victoriano 4 Week Follow-up Scheduled: Yes Called patient to check in at 2 week post-op jj. Patient did not answer, left a voice message stating to call our office or reach out via Briteseed with further questions or concerns. We will plan on seeing them in office at the 4 week post-op visit. Joselito Liu PA-C Orthopedic Surgery Hip and Knee Reconstruction [facility] Normal [facility] Basic Metabolic Profile (BMP )on 04-07-2025 BUN/CRE 32.6 RATIO High 10-20 [facility] Comment on above: Order Comment: 206.2 Performed By: #### L 100.0500, L500.2500 #### [facility] [address] [place], [address] Calcium [Mass/Vol] 9.2 mg/dL Normal 7.6-11.0 [facility] Comment on above: Order Comment: 206.2 Performed By: #### L 100.0500, L500.2500 #### [facility] [address] [place] [place], [address] Chloride [Moles/Vol] 104 mmol/L Normal 98-108 [facility] Comment on above: Order Comment: 206.2 Performed By: #### L 100.0500, L500.2500 #### [facility] [address] [place], [address] CO2 [Moles/Vol] 27.5 mmol/L Normal 21.0-32.0 [facility] Comment on above: Order Comment: 206.2 Performed By: #### L 100.0500, L500.2500 #### [facility] [address] [place], [address] Creatinine [Mass/Vol] 1.33 mg/dL High 0.70-1.20 [facility] Comment on above: Order Comment: 206.2 Performed By: #### L 100.0500, L500.2500 #### [facility] [address] [place], [address] GAP 11 Normal 5-15 [facility] Comment on above: Order Comment: 206.2 Performed By: #### L 100.0500, L500.2500 #### [facility] [address] [place], [address] GFR/1.73 sq M.predicted among non-blacks MDRD (S/P/Bld) [Vol rate/Area] 51 mL/min/{1.73_m2} Low >60 [facility] Comment on above: Order Comment: 206.2 Result Comment: mL/m in/1.73m2 CKD-EPI Creatinine Equation (2020) Performed By: #### L 100.0500, L500.2500 #### [facility] [address] [place], [address] Glucose [Mass/Vol] 227 mg/dL High 70-99 [facility] Comment on above: Order Comment: 206.2 Performed By: #### L 100.0500, L500.2500 #### [facility] [address] [place], [address] Potassium [Moles/Vol] 4.5 mmol/L Normal 3.3-5.1 [facility] Comment on above: Order Comment: 206.2 Performed By: #### L 100.0500, L500.2500 #### [facility] [address] [place], [address] Sodium [Moles/Vol] 142 mmol/L Normal 133-145 [facility] Comment on above: Order Comment: 206.2 Performed By: #### L 100.0500, L500.2500 #### [facility] [address] [place], [address] Urea nitrogen [Mass/Vol] 43 mg/dL High 4-19 [facility] Comment on above: Order Comment: 206.2 Performed By: #### L 100.0500, L500.2500 #### [facility] [address] [place], [address] CBC-Complete Blood Cnt No Di ffon 04-07-2025 Erythrocyte distribution width (RBC) [Ratio] 12.9 % Normal 11.6-14.6 [facility] Comment on above: Order Comment: 206.2 Performed By: #### L 100.0500, L500.2500 #### [facility] [address] [place], [address] Hematocrit (Bld) [Volume fraction] 33.5 % Low 40-54 [facility] Comment on above: Order Comment: 206.2 Performed By: #### L 100.0500, L500.2500 #### [facility] [address] [place], [address] Hemoglobin (Bld) [Mass/Vol] 10.8 g/dL Low 13.0-16.5 [facility] Comment on above: Order Comment: 206.2 Performed By: #### L 100.0500, L500.2500 #### [facility] [address] [place], [address] MCH (RBC) [Entitic mass] 29.7 pg Normal 27.0-32.0 [facility] Comment on above: Order Comment: 206.2 Performed By: #### L 100.0500, L500.2500 #### [facility] [address] [place], [address] MCHC (RBC) [Mass/Vol] 32.2 g/dL Normal 32-36 [facility] Comment on above: Order Comment: 206.2 Performed By: #### L 100.0500, L500.2500 #### [facility] [address] [place], [address] MCV (RBC) [Entitic vol] 92.0 fL Normal 80-94 [facility] Comment on above: Order Comment: 206.2 Performed By: #### L 100.0500, L500.2500 #### [facility] [address] [place], [address] Platelet mean volume (Bld) [Entitic vol] 10.8 fL Normal 6.2-12.0 [facility] Comment on above: Order Comment: 206.2 Performed By: #### L 100.0500, L500.2500 #### [facility] [address] [place], [address] Platelets (Bld) [#/Vol] 229 10*3/uL Normal 150-450 [facility] Comment on above: Order Comment: 206.2 Performed By: #### L 100.0500, L500.2500 #### [facility] [address] [place], [address] RBC (Bld) [#/Vol] 3.64 10*6/uL Low 4.6-6.2 [facility] Comment on above: Order Comment: 206.2 Performed By: #### L 100.0500, L500.2500 #### [facility] [address] [place], [address] RDW SD 43.5 fl Normal 35.1-43.9 [facility] Comment on above: Order Comment: 206.2 Performed By: #### L 100.0500, L500.2500 #### [facility] [address] [place], [address] WBC (Bld) [#/Vol] 5.4 10*3/uL Normal 4.4-11.0 [facility] Comment on above: Order Comment: 206.2 Performed By: #### L 100.0500, L500.2500 #### [facility] [address] [place], [address] 36on 04-03-2025 36 I called and spoke with the facility and got the patient scheduled for the appointment. The facility requested the [facility] location. [facility] [phone] 04-02-2025 [phone] Next Site of Care Admission Date: 03/30/2025 05:49 PM Patient Name: TITA KEITH Location: [address] [id number] Date of : 1935 Placement Information Referral Type:Mcfp ICF - Return Referral ID:[id number] Provider Name:[facility]. Address 1:[address] Address 2: City:[place] Selection Factors:Returning to Facility State:[place] Normal [facility] [phone] Transport confirmed for 12 PM CM notified Kayleigh Sebastientrevon via phone of transport time. [facility] [phone] Confirmed pickup time of NOON by transport company Jonathan Santiago at phone number [phone]. Location of facility drop off is return back to [facility]. Facility notified via Careport, TCC notified on secure chat. [facility] [phone] Transport requested NOON in Roundtrip. Awaiting time confirmation. [facility] [phone] Discharge med list transmitted to TO RETURN BACK TO [facility] via Careport per TCC request. [facility] [phone] [facility] response received from facility that pt may dc today and return ICF . Spoke w MD and DC orders placed and RON completed. CM tasked for transport and for dc PW MAR to be sent to facility. Dtr to be updated via phone of Transport time. [facility] 36on 04-02-2025 36 Name of Caller: Isa Contact Reason for Appointment: Facility calling to schedule IPO for Pt. Please call to schedule thank you. Normal [facility] - Chemistry and C hemistry - challengeon 04-02-2025 Glucose [Mass/Vol] 227 mg/dL High 70 - 100 mg/dL [facility] Panel Informationon 04-02 Interpretation and review of laboratory results Abnormal [facility] Performed by: Gibson Velázquez, [address] [facility], [place] [address] CLIA ID: [id number] [facility] Nursing Noteon 04-02-2025 Nursing Note Reported called over the Apostolic to Carlotta. Normal [facility] Progress Noteon 04-02-2025 Progress Note Physician Response Please review the following and provide your response below. Please clarify which of the following accurately describes the patient's DM: Hyperglycemia due to Decadron This documentation will become part of the patient's medical record. Normal [facility] Progress Note Physician Response Please review the following and provide your response below. Please clarify which of the following accurately describes the patient's respiratory status: Other - please specify no hypoxia per hospitalist This documentation will become part of the patient's medical record. Normal [facility] Progress Note Speech-Language Pathology SPEECH LANGUAGE PATHOLOGY [facility] Modified Barium Swallow Study Patient Name: Tita Keith Evaluation Date: 04/02/2025 Date of : 1935 Admission Date: 03/30/2025 5:49 PM Age: 89 y.o. Room[facility]Bed: [facility] A IMPRESSION: The patient presents with mild - moderate oral phase dysphagia associated with reduced oral bolus control, reduced/disorganized bolus formation and AP transit, and oral residue. There is moderate - marked pharyngeal phase dysphagia associated with base of tongue weakness, pharyngeal wall weakness, reduced hyolaryngeal excursion (at times), nasopharyngeal penetration and incomplete epiglottic deflection (at times), cervical osteophytes (which d/n appear to affect swallowing). There was observed laryngeal penetration with - thin liquid, (cup edge, straw) - mildly thick liquid, (cup edge) - puree, (teaspoon) and aspiration on re-swallows/residual s with - thin liquid, (cup edge, straw (mixed with residuals/secretions ) - mildly thick liquid, (cup edge (residual textures vs. Current swallow) - puree, (residuals clearing mixed textures). Swallowing function continue with increased risk of aspiration. Continued concern for aspiration d/t inability to completely clearing pharyngeal secretions. Continue to feel due to advanced dementia pt is not appropriate for feeding tube (pt's daughter indicated that nutritional support is not part of his wishes therefore recommend Minced and moist vs. Continuation of Regular textures as most lenient diet. RECOMMENDATION: Recommend Minced and moist solids and Thin liquids (continue trials with CLAIMS PROCESSOR to determine benefit of mildly thick liquids) and meds crushed in puree and the following precautions: - Upright positioning for all PO intake - Small bites/sips - 1:1 Assistance - Alternate solid and liquids - Swallow x 2 per bolus - Clear your throat then swallow again - Single sips Penetration-Aspirati on Scale: 7. Contrast enters the airway, crosses the plane of the vocal folds, and is not ejected from the airway despite effort. Pt would benefit from skilled acute CLAIMS PROCESSOR services oropharyngeal strengthening trial and Formal instruction of swallow strategies. Frequency: 3 days/wk for 2 weeks Barriers: Cognitive deficit, Impulsivity, and Limited safety awareness Prognosis: fair D/C Recommendations: ongoing speech therapy at next level of care as appropriate Concern with self feeding and self awareness. Pt is able to follow commands during exam for re-swallows. General Repeat MBS completed to assess the efficiency of his swallow function, rule out aspiration, and make recommendations regarding safe dietary consistencies, effective compensatory strategies, and safe eating environment. Subjective: Pt more lethargic. Needed to arouse for exam. Radiologist: Jayden Blackburn MD Prior MBSS?: Yes - Date: 01/22/23 - Results: Oral Phase: Pt with mild to moderate disorganized oral transit with lingual rocking prior to swallowing initiation. Loss of bolus to the vallecula with all textures tested (thin, nectar via spoon, pudding) during attempt for swallow. Mild oral residuals after pudding and tongue base and palatal staining after liquids. Pharyngeal Phase Pharyngeal: Moderate pharyngeal weakness-decreased tongue base retraction/pharyngea l constriction and epiglottic deflection-- Vellecular residuals with all-moderate thin, severe pudding, [id number]-[id number] ar (difficulty to determine d/t unable to completely clear pudding prior to nectar). Pt does spontaneouly reswallow to assist with clearing, during reswallows transient spillage and accumulation on back of epiglottic falling and accumlating in laryngeal vestibule with eventual vocal cord penetration and anterior tracheal staining. Thicker liquids did not reduce residuals or aspiration risk. Greater vallecular reisduals and pharyngeal wall staing after pudding. Pt is at risk of aspiration with all textures. Suggest continue Palliative diet w/ strategies. Baseline Diet: Regular diet with Mildly thick liquids Current diet: Dietary Orders (From admission, onward) Start Ordered 03/31/251756 Adult diet Regular Diet effective now Question: Diet type Answer: Regular 03/31/251756 Textures tested: - thin liquid, (teaspoon, cup edge, straw) - mildly thick liquid, (teaspoon, cup edge) - puree, (teaspoon) Patient position: lateral Past Medical History: Medical History[1] Past Surgical History: Surgical History[2] Admission Diagnosis: Patient Active Problem List Diagnosis Date Noted Closed nondisplaced intertrochanteric fracture of right femur, initial encounter ([facility]) 03/30/2025 Severe malnutrition ([facility]) ([facility]) 12/07/2023 Pneumonia due to infectious organism, unspecified laterality, unspecified part of lung 12/06/2023 Dementia without behavioral disturbance ([facility]) 09/17/2023 COVID-19 09/10/2023 Hyper (more content not included)... Normal [facility] Progress Note OCCUPATIONAL THERAPY [facility] Name/MRN: Tita Keith ([id number]) Date: 04/02/2025 Chart reviewed. Attempted to see pt today. Daughter at bedside, reporting that he had his cookie swallow this AM and has been more drowsy and agitated this AM. Plan to re-attempt therapy evaluation as schedule permits, once pt is more alert. Reema Barrios, OT Normal [facility] BASIC METABOLIC PANELon 06- Anion gap [Moles/Vol] 11 mmol/L Normal 3-13 [facility] Comment on above: Performed By: #### L AB15 ####Duct Installer: GISSEL SHAW ([id number])[facility] ([facility])[address] [place] [address] Calcium [Mass/Vol] 9.3 mg/dL Normal 8.8-10.0 [facility] Comment on above: Performed By: #### L AB15 ####Duct Installer: GISSEL SHAW ([id number])[facility] ([facility])[address] Chloride [Moles/Vol] 103 mmol/L Normal 98-107 [facility] Comment on above: Performed By: #### L AB15 ####Duct Installer: GISSEL BAHOLAF ([id number])[facility] ([facility])[address] CO2 [Moles/Vol] 27 mmol/L Normal 23-31 [facility] Comment on above: Performed By: #### L AB15 ####Duct Installer: GISSEL BAHOLAF ([id number])[facility] ([facility])[address] Creatinine [Mass/Vol] 1.35 mg/dL High 0.72-1.25 [facility] Comment on above: Performed By: #### L AB15 ####Duct Installer: GISSEL BAHOLAF ([id number])[facility] BARB[facility] MED[facility] CENT[facility] ([facility])[address] GLOMERULAR FILTRATION RATE ML/MIN/1.73 SQ M.PREDICTED 50.2 mL/min/1.73m*2 Low >60.0 [facility] Comment on above: Result Comment: Calc ulation based on the Chronic Kidney Disease Epidemiology Collaboration (CKD-EPI) equation refit without adjustment for race Performed By: #### L AB15 ####Duct Installer: GISSEL SHAW ([id number])[facility] ([facility])[address] Glucose [Mass/Vol] 308 mg/dL High 82-115 [facility] Comment on above: Performed By: #### L AB15 ####Duct Installer: GISSEL SHAW ([id number])[facility] ([facility])[address] Potassium [Moles/Vol] 5.0 mmol/L Normal 3.5-5.1 [facility] Comment on above: Result Comment: [facility] potassium values may be up to 0.5 mmol/L lower than serum values. Performed By: #### L AB15 ####Duct Installer: GISSEL SHAW ([id number])[facility] ([facility])[address] Sodium [Moles/Vol] 141 mmol/L Normal 136-145 [facility] Comment on above: Performed By: #### L AB15 ####Duct Installer: GISSEL SHAW ([id number])[facility] ([facility])[address] Urea nitrogen [Mass/Vol] 30 mg/dL High 9-23 [facility] Comment on above: Performed By: #### L AB15 ####Duct Installer: GISSEL SHAW ([id number])[facility] ([facility])[address] Basic metabolic 1998 panelon 04-01-2025 Anion gap [Moles/Vol] 11 mmol/L 3 - 13 mmol/L [facility] Calcium [Mass/Vol] 9.3 mg/dL 8.8 - 10. 0 mg/dL [facility] Chloride [Moles/Vol] 103 mmol/L 98 - 10 7 mmol/L [facility] CO2 [Moles/Vol] 27 mmol/L 23 - 31 mmol/L [facility] Creatinine [Mass/Vol] 1.35 mg/dL High 0.72 - 1.25 mg/dL [facility] GFR/1.73 sq M.predicted (S/P/Bld) [Vol rate/Area] 50.2 mL/min Low - PINF [facility] Comment on above: Calculation based on the Chronic Kidney Disease Epidemiology Collaboration (CKD-EPI) equation refit without adjustment for race Glucose [Mass/Vol] 308 mg/dL High 82 - 115 mg/dL [facility] Interpretation and review of laboratory results Abnormal [facility] Potassium [Moles/Vol] 5 mmol/L 3.5 - 5.1 mmol/L [facility] Comment on above: Plasma potassium jacky ues may be up to 0.5 mmol/L lower than serum values. Sodium [Moles/Vol] 141 mmol/L 136 - 145 mmol/L [facility] Urea nitrogen [Mass/Vol] 30 mg/dL High 9 - 23 mg/d L [facility] CBC (HEMOGRAM)on 04-01-2025 Erythrocyte distribution width (RBC) [Ratio] 12.3 % Normal 11.5-15.0 [facility] Comment on above: Performed By: #### L AB294 ####Duct Installer: GISSEL SHAW ([id number])[facility] RICKSMENDY ([facility])[address] Hematocrit (Bld) [Volume fraction] 33.6 % Low 40.0-52.0 [facility] Comment on above: Performed By: #### L AB294 ####Duct Installer: GISSEL SHAW ([id number])[facility] ([facility])[address] Hemoglobin (Bld) [Mass/Vol] 10.9 g/dL Low 13.0-18.0 [facility] Comment on above: Performed By: #### L AB294 ####Duct Installer: GISSEL SHAW ([id number])[facility] ([facility])[address] IPF 5 Normal [facility] Comment on above: Performed By: #### L AB294 ####Duct Installer: GISSEL SHAW ([id number])[facility] ([facility])[address] MCH (RBC) [Entitic mass] 30.1 pg Normal 26.0-34.0 [facility] Comment on above: Performed By: #### L AB294 ####Duct Installer: GISSEL SHAW ([id number])[facility] ([facility])[address] MCHC 32.4 % Normal 30.5-36.0 [facility] Comment on above: Performed By: #### L AB294 ####Duct Installer: GISSEL SHAW ([id number])[facility] ([facility])[address] MCV (RBC) [Entitic vol] 92.8 fL Normal 77.0-99.0 S [facility] Comment on above: Performed By: #### L AB294 ####Duct Installer: GISSEL SHAW ([id number])[facility]KS[facility] ([facility])[address] Platelet mean volume (Bld) [Entitic vol] 11.0 fL Normal 9.0-12.7 [facility] Comment on above: Performed By: #### L AB294 ####Duct Installer: GISSEL SHAW ([id number])[facility] ([facility])[address] Platelets (Bld) [#/Vol] 144 10*3/uL Normal 140-440 [facility] Comment on above: Performed By: #### L AB294 ####Duct Installer: GISSEL SHAW ([id number])[facility] [place] ([facility])[address] RBC (Bld) [#/Vol] 3.62 10*6/uL Low 4.40-5.90 [facility] Comment on above: Performed By: #### L AB294 ####Duct Installer: GISSEL SHAW ([id number])[facility] [place] ([facility])[address] WBC (Bld) [#/Vol] 6.4 10*3/uL Normal 3.6-10.7 [facility] Comment on above: Performed By: #### L AB294 ####Duct Installer: GISSEL SHAW ([id number])[facility] ([facility])[address] CBC panel Auto (Bld)on 04-01 Erythrocyte distribution width (RBC) [Ratio] 12.3 % 11.5 - 15.0 % [facility] Hematocrit (Bld) [Volume fraction] 33.6 % Low 40.0 - 52.0 % [facility] Hemoglobin (Bld) [Mass/Vol] 10.9 g/dL Low 13.0 - 18.0 g/dL [facility] Interpretation and review of laboratory results Abnormal [facility] IPF 5 [facility] MCH (RBC) [Entitic mass] 30.1 pg 26. 0 - 34.0 pg [facility] MCHC (RBC) [Mass/Vol] 32.4 % 30.5 - 36.0 % [facility] MCV (RBC) [Entitic vol] 92.8 fL 77.0 - 99.0 fL [facility] Platelet mean volume (Bld) [Entitic vol] 11 fL 9.0 - 12.7 fL [facility] Platelets (Bld) [#/Vol] 144 10*3/uL 140 - 440 10*3/uL [facility] RBC (Bld) [#/Vol] 3.62 10*6/uL Low 4.40 - 5.9 0 10*6/uL [facility] WBC (Bld) [#/Vol] 6.4 10*3/uL 3.6 - 10.7 10*3/uL [facility] HEMOGLOBIN A1Con 04-01-2025 Glucose [Mass/Vol] 154 mg/dL Normal [facility] Comment on above: Result Comment: PRITESH Maxwell COMMENTS: If not done within the last 3 mos HbA1c values of 5.7-6.4 percent indicate an increased risk for developing diabetes mellitus. HbA1c values greater than or equal to 6.5 percent are diagnostic of diabetes mellitus. For diagnosis of diabetes in individuals without unequivocal hyperglycemia, results should be confirmed by repeat testing. Performed By: #### L AB90 ####Duct Installer: GISSEL SHAW ([id number])[facility] ([facility])[address] [place] [address] HEMOGLOBIN A1C 7.0 %HbA1C High <5.7 [facility] Comment on above: Result Comment: Norm al less than 5.7% Prediabetes 5.7% to 6.4% Diabetes 6.5% or higher --HgbA1C levels may not be accurate in patients who have renal disease, received recent blood transfusions, are anemic, or who have dyshemoglobinemia. Performed By: #### L AB90 ####Duct Installer: GISSEL SHAW ([id number])[facility] ([facility])[address] Laboratory - Chemistry and C hemistry - challengeon 04-01-2025 Glucose [Mass/Vol] 231 mg/dL High 70 - 100 mg/dL [facility] Glucose [Mass/Vol] 221 mg/dL High 70 - 100 mg/dL [facility] Glucose [Mass/Vol] 291 mg/dL High 70 - 100 mg/dL [facility] Average glucose Estimated from glycated hemoglobin (Bld) [Mass/Vol] 154 mg/dL [facility] Glucose [Mass/Vol] 310 mg/dL High 70 - 100 mg/dL [facility] Laboratory - Hematology and Cell countson 04-01-2025 HbA1c (Bld) [Mass fraction] 7 % High NINF [facility] Comment on above: Normal less than 5.7 % Prediabetes 5.7% to 6.4% Diabetes 6.5% or higher --HgbA1C levels may not be accurate in patients who have renal disease, received recent blood transfusions, are anemic, or who have dyshemoglobinemia. No Panel Informationon 04-01 Hip fracture with new metallic fixation in adequate alignment. Report Dictated on Electronically Signed By: Christiano Nava MD Electronically Signed Date/Time: 04/01/2025 8:32 PM T [facility] Interpretation and review of laboratory results Abnormal [facility] Performed by: Gibson Velázquez [address] [place] [address] CLIA ID: [id number] [facility] Interpretation and review of laboratory results Abnormal [facility] Performed by: Gibson Velázquez [address] [place] [id number] CLIA ID: [id number] [facility] Interpretation and review of laboratory results Abnormal [facility] Performed by: Gibson Velázquez [address] [place] [id number] CLIA ID: [id number] [facility] Dymant [facility] Interpretation and review of laboratory results Abnormal [facility] HbA1c values of 5.7-6.4 percent indicate an increased risk for developing diabetes mellitus. HbA1c values greater than or equal to 6.5 percent are diagnostic of diabetes mellitus. For diagnosis of diabetes in individuals without unequivocal hyperglycemia, results should be confirmed by repeat testing. [facility] Dymant [facility] Interpretation and review of laboratory results Abnormal [facility] Performed by: Gibson Velázquez, [address] [facility] [address] CLIA ID: [id number] [facility] No Panel InformationOrdered By: Christiano Nava on 04-01-2025 [facility] Work Phone: Progress Noteon 04-01-2025 Progress Note Speech-Language Pathology SPEECH LANGUAGE PATHOLOGY [facility] Bedside Swallow Evaluation Patient Name: Tita Keith Evaluation Date: 04/01/2025 Date of : 1935 Admission Date: 03/30/2025 5:49 PM Age: 89 y.o. Room[facility]Bed: [facility] A IMPRESSION: S/s oropharyngeal dysphagia. + overt clinical s/s pulmonary compromise with PO. Risk factors for aspiration include dementia, h/o of dysphagia, acute hypoxic respiratory failure, and baseline cough + "full" vocal quality. RECOMMENDATION: Recommend Easy to chew solids and Mildly thick liquids and meds as tolerated and the following precautions: - Upright positioning for all PO intake - Slow rate of intake - Small bites/sips - 1:1 Assistance - No straws Dysphagia NOMS: Level 2: Individual is not able to swallow safely by mouth for nutrition and hydration, but may take some consistency with consistent maximal cues in a therapy env only. Alternative method of feeding is required. Pt would benefit from skilled acute CLAIMS PROCESSOR services to determine the safest route and consistency for nutritional intake as well as monitoring tolerance of the recommended diet. Frequency: 3 days/wk for 2 weeks Barriers: cognitive deficit, limited safety awareness, baseline "full" vocal quality Prognosis: fair D/C Recommendations: to be determined Discussed with daughter past diet at home. Stated pt has been on a dysphagia diet. Daughter agreeable to MBSS to determine the safest diet and liquid consistency. Subjective Patient lethargic, confused and flat. Pt was cooperative during PO trials. Seen upright in bed. Answers no basic questions with weak vocal quality. Follows few basic commands. Visitors at bedside - daughter. Spoke with ISABEL Manuel who cleared pt to be evaluated. RN stated that pt coughed on water earlier in the morning. Dysphagia History: Retrospective chart review revealed a history of CLAIMS PROCESSOR services as follows: 01/18/23-09/19/23. Pt demonstrated prolonged mastication, even with softened foods. Hyolaryngeal elevation appeared decreased on 1-2 swallows, however, improved on palpation with progression of trials. Signs of occasional change in vocal quality and increase in cough after drinking via straw were noted. Pt's diet started with minced and moist and ended with puree diet with thin liquids. Prior MBS completed on 01/22/23 with results indicating mild to moderate disorganized oral transit with lingual rocking. Bolus loss into vallecula with the following textures: thin, nectar via spoon, pudding. Mild oral residuals with pudding. Tongue base and palatal staining after liquids. Moderate pharyngeal-weakness with decreased tongue base retraction/pharyngea l constriction and epiglottic deflection. Pt had vallecular residuals with moderate thin, severe pudding, kansvvvv-stjtqv-pibj ar. Transient spillage accumulating in laryngeal vestibule with vocal fold penetration. Osteophytes were noted throughout cervical spine. Baseline Diet: mildly thick liquids with regular solids Current Diet: Dietary Orders (From admission, onward) Start Ordered 03/31/251756 Adult diet Regular Diet effective now Question: Diet type Answer: Regular 03/31/251756 Tube Feeding: no Tracheostomy: no Recent Chest Xray/CT of Chest: XR chest 1 view 03/30/2025 Impression Normal examination. Report Dictated on Electronically Signed By: Gerhard Hannah MD Electronically Signed Date/Time: 03/30/2025 7:24 PM EDT Oxygen: Oxygen Therapy: None (Room air) O2 Delivery Method: Nasal cannula O2 Flow Rate (L/min): 2 L/min Past Medical History: Medical History[1] Past Surgical History: Surgical History[2] Admission Diagnosis: Patient Active Problem List Diagnosis Date Noted Closed nondisplaced intertrochanteric fracture of right femur, initial encounter ([facility]) 03/30/2025 Severe malnutrition (CMS/HCC) ([facility]) 12/07/2023 Pneumonia due to infectious organism, unspecified laterality, unspecified part of lung 12/06/2023 Dementia without behavioral disturbance ([facility]) 09/17/2023 COVID-19 09/10/2023 Hyperglycemia 01/19/2023 Hyperosmolar hyperglycemic state (HHS) ([facility]) 01/17/2023 New onset type 2 diabetes mellitus (CMS/HCC) ([facility]) 03/01/2022 History of Present Illness: Patient Complaint: None stated. Pain: Pt denies any current pain. PPE Worn: gloves Objective Bedside swallow eval completed. Oral Motor Mechanism Facial Movement (CN VII) - Generalized weakness Labial Structure/Function (CN VII) - Reduced retraction, Reduced protrusion, Generalized weakness Lingual Structure/Function (CN XII) - Generalized weakness, reduced elevation and depression, reduced lateralization (cyon-lo-nsll tongue movement) Velopharyngeal Structure/Function (CN X & XI) - Pt had difficulty opening his mouth and sticking tongue out to visualize palate. Oral Hygiene: dried secretions, xerostomia Swallowing Examination PO Trials - (more content not included)... Normal [facility] Progress Note Nutrition rescreen completed. Patient referred to the Dietitian. BMI 16.69. Normal [facility] Progress Note OCCUPATIONAL THERAPY [facility] & ED's Name/MRN: Tita Keith ([id number]) Date: 04/01/2025 OT orders received and chart reviewed. Per RN, pt OK to attempt, however pt not following commands well. Upon arrival to room, I introduced myself and role to pt. Pt was awake in bed, sitting with HOB elevated. He was unable to state his name or answer the question correctly when provided with options. He did not follow any simple commands and did not speak. Pt not appropriate for therapy at this time d/t very poor cognition and inability to follow basic commands. Plan to re-assess tomorrow to see if pts mentation improves at all, however I am not optimistic as notes indicate he is A&Ox 0 at baseline. Reema Barrios, OT [facility] Progress Note Adult Hip and Knee Reconstruction Service Patient Name: Tita Keith Date of : 1935 Date: 04/01/25 Assessment: s/p Right CMN on 03/31/2025 doing well Plan: -Weight bearing: WBAT -Immobilization: No immobilization needed -Consults: none -Antibiotics: Abx 24hrs post-op -Dressings: Keep bandage clean dry and intact for 7-10 days post operatively, then ok to leave open to air if incision is without drainage -Diet: no restrictions from ortho standpoint -Continue PT/OT -Pain control -Ice and elevate -DVT prophylaxis: per medicine -DC planning: home when clears PT -Ortho following, 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 Subjective: Patient is tired upon visit, he is able to participate some in exam but is not responding to questioning. Pain appears to be well controlled with pain medication. Patient has not been out of bed yet. Silverio in place. Starting PT/OT today if able to participate. Denies nausea or vomiting. Denies numbness/tingling. Denies SOB or calf pain. Medications: Scheduled Meds[1] Physical Exam: Vitals: 04/01/25 0456 BP: 122/87 Pulse: 79 Resp: 18 Temp: 36.2 ?C (97.2 ?F) SpO2: 96% Intake and Output Summary (Last 24 hours) at Date Time Intake/Output Summary (Last 24 hours) at 04/01/2025 0715 Last data filed at 04/01/2025 0620 Gross per 24 hour Intake 510 ml Output 1000 ml Net -490 ml General appearance - no acute distress Musculoskeletal - Dressing C/D/I Fires quad/TA/EHL/GSC SILT SP/DP/TN WWP distally Posterior tibial pulse 2+ bilaterally Calves soft, nontender bilateral. No edema, erythema or warmth noted to calves. Labs: Lab Results Component Value Date HGB 11.8 (L) 03/31/2025 , Lab Results Component Value Date WBC 6.8 03/31/2025 HGB 11.8 (L) 03/31/2025 HCT 35.2 (L) 03/31/2025 MCV 89.3 03/31/2025 PLT 119 (L) 03/31/2025 , Lab Results Component Value Date GLUCOSE 299 (H) 03/31/2025 CALCIUM 9.1 03/31/2025 NA 137 03/31/2025 K 4.2 03/31/2025 CO2 27 03/31/2025 CL 102 03/31/2025 BUN 30 (H) 03/31/2025 CREATININE 1.22 03/31/2025 , Lab Results Component Value Date CRP 60.0 (H) 09/14/2023 , and No results found for: "SEDRATE", SEDRATEBYMOD Rads: Radiological Procedure reviewed. Signed by: Rahel Redman PA-C [1] cholecalciferol, 2,000 Units, Oral, Daily docusate sodium, 100 mg, Oral, BID erythromycin, 1 Application, Left Eye, Nightly insulin glargine, 4 Units, SubCUTAneous, Nightly lisinopril, 20 mg, Oral, Daily Melatonin, 5 mg, Oral, Nightly mirtazapine, 15 mg, Oral, Nightly QUEtiapine, 12.5 mg, Oral, BID sodium chloride 0.9%, 5-40 mL, IntraVENous, q12h tamsulosin, 0.8 mg, Oral, Nightly Normal [facility] XR FEMUR 2+ VW RIGHTon 04-01 XR FEMUR 2+ VW RIGHT Patient Name: TITA KEITH : 1935 Exam Date/Time: 03/31/2025 17:32 Procedure: XR FEMUR 2+ VW RIGHT Ordering Provider: LIU WILLIAM Reason For Exam: S/P ORIF RIGHT FEMUR AND PELVIS CLINICAL INDICATION: S/P ORIF. Fracture TECHNIQUE: AP and lateral femur and AP pelvis COMPARISON: One day ago FINDINGS: Intertrochanteric hip fracture again noted with avulsion of the lesser trochanter. Metallic fixation is noted with a shilpa extending throughout the femur and screws extending to the femoral head in adequate position. No other fracture or dislocation is noted. There is degenerative change within the lower lumbar spine. Left hip is unremarkable. The right knee is unremarkable. No bone lesion is identified. Arterial calcifications are noted. IMPRESSION: Hip fracture with new metallic fixation in adequate alignment. Report Dictated on Electronically Signed By: Christiano Nava MD Electronically Signed Date/Time: 04/01/2025 8:32 PM EDT Normal [facility] XR Femur - right 2 Viewson 0 04-01-2025 Patient Name: TITA KEITH : 1935 Exam Date/Time: 03/31/2025 17:32 Procedure: XR FEMUR 2+ VW RIGHT Ordering Provider: LIU WILLIAM Reason For Exam: S/P ORIF RIGHT FEMUR AND PELVIS CLINICAL INDICATION: S/P ORIF. Fracture TECHNIQUE: AP and lateral femur and AP pelvis COMPARISON: One day ago FINDINGS: Intertrochanteric hip fracture again noted with avulsion of the lesser trochanter. Metallic fixation is noted with a shilpa extending throughout the femur and screws extending to the femoral head in adequate position. No other fracture or dislocation is noted. There is degenerative change within the lower lumbar spine. Left hip is unremarkable. The right knee is unremarkable. No bone lesion is identified. Arterial calcifications are noted. [facility] Christiano Nava MD - 04/01/2025 Patient Name: TITA KEITH : 1935 Exam Date/Time: 03/31/2025 17:32 Procedure: XR FEMUR 2+ VW RIGHT Ordering Provider: LIU WILLIAM Reason For Exam: S/P ORIF RIGHT FEMUR AND PELVIS CLINICAL INDICATION: S/P ORIF. Fracture TECHNIQUE: AP and lateral femur and AP pelvis COMPARISON: One day ago FINDINGS: Intertrochanteric hip fracture again noted with avulsion of the lesser trochanter. Metallic fixation is noted with a shilpa extending throughout the femur and screws extending to the femoral head in adequate position. No other fracture or dislocation is noted. There is degenerative change within the lower lumbar spine. Left hip is unremarkable. The right knee is unremarkable. No bone lesion is identified. Arterial calcifications are noted. IMPRESSION: Hip fracture with new metallic fixation in adequate alignment. Report Dictated on Electronically Signed By: Christiano Nava MD Electronically Signed Date/Time: 04/01/2025 8:32 PM EDT [employer] XR PELVIS 1-2 VIEWSon 2024 XR PELVIS 1-2 VIEWS Patient Name: TITA KEITH : 1935 Exam Date/Time: 03/31/2025 17:32 Procedure: XR PELVIS 1-2 VIEWS Ordering Provider: REDMAN BRITTANY Reason For Exam: post-op RIGHT FEMUR AND PELVIS CLINICAL INDICATION: S/P ORIF. Fracture TECHNIQUE: AP and lateral femur and AP pelvis COMPARISON: One day ago FINDINGS: Intertrochanteric hip fracture again noted with avulsion of the lesser trochanter. Metallic fixation is noted with a shilpa extending throughout the femur and screws extending to the femoral head in adequate position. No other fracture or dislocation is noted. There is degenerative change within the lower lumbar spine. Left hip is unremarkable. The right knee is unremarkable. No bone lesion is identified. Arterial calcifications are noted. IMPRESSION: Hip fracture with new metallic fixation in adequate alignment. Report Dictated on Electronically Signed By: Christiano Nava MD Electronically Signed Date/Time: 04/01/2025 8:32 PM EDT [facility] XR Pelvis 1 or 2 Viewson Patient Name: TITA KEITH : 1935 Exam Date/Time: 03/31/2025 17:32 Procedure: XR PELVIS 1-2 VIEWS Ordering Provider: REDMAN BRITTANY Reason For Exam: post-op RIGHT FEMUR AND PELVIS CLINICAL INDICATION: S/P ORIF. Fracture TECHNIQUE: AP and lateral femur and AP pelvis COMPARISON: One day ago FINDINGS: Intertrochanteric hip fracture again noted with avulsion of the lesser trochanter. Metallic fixation is noted with a shilpa extending throughout the femur and screws extending to the femoral head in adequate position. No other fracture or dislocation is noted. There is degenerative change within the lower lumbar spine. Left hip is unremarkable. The right knee is unremarkable. No bone lesion is identified. Arterial calcifications are noted. [facility] Christiano Nava MD - 04/01/2025 Patient Name: TITA KEITH : 1935 Exam Date/Time: 03/31/2025 17:32 Procedure: XR PELVIS 1-2 VIEWS Ordering Provider: REDMAN BRITTANY Reason For Exam: post-op RIGHT FEMUR AND PELVIS CLINICAL INDICATION: S/P ORIF. Fracture TECHNIQUE: AP and lateral femur and AP pelvis COMPARISON: One day ago FINDINGS: Intertrochanteric hip fracture again noted with avulsion of the lesser trochanter. Metallic fixation is noted with a shilpa extending throughout the femur and screws extending to the femoral head in adequate position. No other fracture or dislocation is noted. There is degenerative change within the lower lumbar spine. Left hip is unremarkable. The right knee is unremarkable. No bone lesion is identified. Arterial calcifications are noted. IMPRESSION: Hip fracture with new metallic fixation in adequate alignment. Report Dictated on Electronically Signed By: Christiano Nava MD Electronically Signed Date/Time: 04/01/2025 8:32 PM EDT [facility] ABO and Rh group Confirm Nom (Bld)on 03-31-2025 ABO group Nom (Bld) A [facility] Dymant D Ag Ql (RBC) Positive [facility] Healt h [facility] APTTon 03-31-2025 aPTT Coag (Bld) [Time] 28.6 s Normal 20.0-30.5 [facility] Comment on above: Result Comment: PRITESH Maxwell COMMENTS: NOTE: The therapeutic time for Heparin anticoagulation, based on Xa activity inhibition, is an APTT of 46-80 seconds. Performed By: #### L [id number], [id number] ####Duct Installer: GISSEL SHAW ([id number])[facility] ([facility])[address] BASIC METABOLIC PANELon 06-1 Anion gap [Moles/Vol] 8 mmol/L Normal 3-13 [facility] Comment on above: Performed By: #### L AB15 ####Duct Installer: GISSEL SHAW ([id number])[facility] ([facility])[address] Calcium [Mass/Vol] 9.1 mg/dL Normal 8.8-10.0 [facility] Comment on above: Performed By: #### L AB15 ####Duct Installer: GISSEL SHAW ([id number])[facility] ([facility])[address] Chloride [Moles/Vol] 102 mmol/L Normal 98-107 [facility] Comment on above: Performed By: #### L AB15 ####Duct Installer: GISSEL SHAW ([id number])[facility] ([facility])[address] CO2 [Moles/Vol] 27 mmol/L Normal 23-31 [facility] Comment on above: Performed By: #### L AB15 ####Duct Installer: GISSEL SHAW ([id number])[facility] ([facility])[address] Creatinine [Mass/Vol] 1.22 mg/dL Normal 0.72-1.25 [facility] Comment on above: Performed By: #### L AB15 ####Duct Installer: GISSEL SHAW ([id number])[facility] ([facility])[address] GLOMERULAR FILTRATION RATE ML/MIN/1.73 SQ M.PREDICTED 56.7 mL/min/1.73m*2 Low >60.0 [facility] Comment on above: Result Comment: Calc ulation based on the Chronic Kidney Disease Epidemiology Collaboration (CKD-EPI) equation refit without adjustment for race Performed By: #### L AB15 ####Duct Installer: GISSEL SHAW ([id number])[facility] ([facility])[address] Glucose [Mass/Vol] 299 mg/dL High 82-115 [facility] Comment on above: Performed By: #### L AB15 ####Duct Installer: GISSEL SHAW ([id number])[facility] ([facility])[address] Potassium [Moles/Vol] 4.2 mmol/L Normal 3.5-5.1 [facility] Comment on above: Result Comment: [facility] potassium values may be up to 0.5 mmol/L lower than serum values. Performed By: #### L AB15 ####Duct Installer: GISSEL SHAW ([id number])[facility] ([facility])[address] Sodium [Moles/Vol] 137 mmol/L Normal 136-145 [facility] Comment on above: Performed By: #### L AB15 ####Duct Installer: GISSEL SHAW ([id number])[facility] ([facility])[address] Urea nitrogen [Mass/Vol] 30 mg/dL High 9-23 [facility] Comment on above: Performed By: #### L AB15 ####Duct Installer: GISSEL SHAW ([id number])[facility] ([facility])[address] Anion gap [Moles/Vol] 10 mmol/L Normal 3-13 [facility] Comment on above: Performed By: #### L AB15 ####Duct Installer: GISSEL SHAW ([id number])[facility] [place] ([facility])[address] Calcium [Mass/Vol] 9.0 mg/dL Normal 8.8-10.0 [facility] Comment on above: Performed By: #### L AB15 ####Duct Installer: GISSEL SHAW ([id number])[facility] [place] ([facility])[address] Chloride [Moles/Vol] 103 mmol/L Normal 98-107 [facility] Comment on above: Performed By: #### L AB15 ####Duct Installer: GISSEL SHAW ([id number])[facility] [place] ([facility])[address] [place] [address] [place] CO2 [Moles/Vol] 26 mmol/L Normal 23-31 [facility] Comment on above: Performed By: #### L AB15 ####Duct Installer: GISSEL SHAW ([id number])[facility] [place] ([facility])[address] Creatinine [Mass/Vol] 1.33 mg/dL High 0.72-1.25 [facility] Comment on above: Performed By: #### L AB15 ####Duct Installer: GISSEL SHAW ([id number])[facility] [place] ([facility])[address] GLOMERULAR FILTRATION RATE ML/MIN/1.73 SQ M.PREDICTED 51.1 mL/min/1.73m*2 Low >60.0 [facility] Comment on above: Result Comment: Calc ulation based on the Chronic Kidney Disease Epidemiology Collaboration (CKD-EPI) equation refit without adjustment for race Performed By: #### L AB15 ####Duct Installer: GISSEL SHAW ([id number])[facility] ([facility] Glucose [Mass/Vol] 295 mg/dL High 82-115 [facility] Comment on above: Performed By: #### L AB15 ####Duct Installer: GISSEL SHAW ([id number])[facility] ([facility])[address] Potassium [Moles/Vol] 4.4 mmol/L Normal 3.5-5.1 [facility] Comment on above: Result Comment: [facility] potassium values may be up to 0.5 mmol/L lower than serum values. Performed By: #### L AB15 ####Duct Installer: GISSEL SHAW ([id number])[facility] ([facility])[address] Sodium [Moles/Vol] 139 mmol/L Normal 136-145 [facility] Comment on above: Performed By: #### L AB15 ####Duct Installer: GISSEL SHAW ([id number])[facility] ([facility] [place] [address] [place] Urea nitrogen [Mass/Vol] 35 mg/dL High 9-23 [facility] Comment on above: Performed By: #### L AB15 ####Duct Installer: GISSEL SHAW ([id number])[facility] ([facility] BLOOD TYPE AND SCREEN GELon 03-31-2025 ABO GROUPING A Normal [facility] Comment on above: Performed By: #### L AB276 ####Duct Installer: GISSEL MCCORMICKClaudetteOLAF ([id number])[facility] ([facility])[address] RH TYPE IN BLOOD Positive Normal [facility] Comment on above: Performed By: #### L AB276 ####Duct Installer: GISSEL SHAW ([id number])[facility] ([facility])[address] [place] [address] [facility] Basic metabolic 1998 panelon 03-31-2025 Anion gap [Moles/Vol] 8 mmol/L 3 - 13 mmol/L [facility] Calcium [Mass/Vol] 9.1 mg/dL 8.8 - 10. 0 mg/dL [facility] Chloride [Moles/Vol] 102 mmol/L 98 - 10 7 mmol/L [facility] CO2 [Moles/Vol] 27 mmol/L 23 - 31 mmol/L [facility] Creatinine [Mass/Vol] 1.22 mg/dL 0.72 - 1.25 mg/dL [facility] GFR/1.73 sq M.predicted (S/P/Bld) [Vol rate/Area] 56.7 mL/min Low - PINF [facility] Comment on above: Calculation based on the Chronic Kidney Disease Epidemiology Collaboration (CKD-EPI) equation refit without adjustment for race Glucose [Mass/Vol] 299 mg/dL High 82 - 115 mg/dL [facility] Interpretation and review of laboratory results Abnormal [facility] Potassium [Moles/Vol] 4.2 mmol/L 3.5 - 5.1 mmol/L [facility] Comment on above: Plasma potassium jacky ues may be up to 0.5 mmol/L lower than serum values. Sodium [Moles/Vol] 137 mmol/L 136 - 145 mmol/L [facility] Urea nitrogen [Mass/Vol] 30 mg/dL High 9 - 23 mg/d L [facility] Anion gap [Moles/Vol] 10 mmol/L 3 - 13 mmol/L [facility] Calcium [Mass/Vol] 9 mg/dL 8.8 - 10. 0 mg/dL [facility] Chloride [Moles/Vol] 103 mmol/L 98 - 10 7 mmol/L [facility] CO2 [Moles/Vol] 26 mmol/L 23 - 31 mmol/L [facility] Creatinine [Mass/Vol] 1.33 mg/dL High 0.72 - 1.25 mg/dL [facility] GFR/1.73 sq M.predicted (S/P/Bld) [Vol rate/Area] 51.1 mL/min Low - PINF [facility] Comment on above: Calculation based on the Chronic Kidney Disease Epidemiology Collaboration (CKD-EPI) equation refit without adjustment for race Glucose [Mass/Vol] 295 mg/dL High 82 - 115 mg/dL [facility] Interpretation and review of laboratory results Abnormal [facility] Potassium [Moles/Vol] 4.4 mmol/L 3.5 - 5.1 mmol/L [facility] Comment on above: Plasma potassium jacky ues may be up to 0.5 mmol/L lower than serum values. Sodium [Moles/Vol] 139 mmol/L 136 - 145 mmol/L [facility] Urea nitrogen [Mass/Vol] 35 mg/dL High 9 - 23 mg/d L [facility] Blood type and Crossmatch pa zabrina (Bld)on 03-31-2025 ABO group Nom (Bld) A [facility] Blood group antibody screen GEL Ql Negative [facility] D Ag Ql (RBC) [facility] CBC (HEMOGRAM)on 03-31-2025 Erythrocyte distribution width (RBC) [Ratio] 12.6 % Normal 11.5-15.0 [facility] Comment on above: Performed By: #### L [id number] ####Duct Installer: GISSEL SHAW ([id number])[facility] ([facility])[address] [place] [address] Hematocrit (Bld) [Volume fraction] 35.2 % Low 40.0-52.0 [facility] Comment on above: Performed By: #### L [id number] ####Duct Installer: GISSEL SHAW ([id number])[facility] ([facility])[address] [place] [address] Hemoglobin (Bld) [Mass/Vol] 11.8 g/dL Low 13.0-18.0 [facility] Comment on above: Performed By: #### L [id number] ####Duct Installer: GISSEL SHAW ([id number])[facility] (SB[facility]AB)[address] IPF 4 Normal [facility] Comment on above: Performed By: #### L [id number] ####Duct Installer: GISSEL SHAW ([id number])[facility] (SBHLAB)[address] MCH (RBC) [Entitic mass] 29.9 pg Normal 26.0-34.0 [facility] Comment on above: Performed By: #### L [id number] ####Duct Installer: GISSEL SHAW ([id number])[facility] (SB[facility]AB)[address] MCHC 33.5 % Normal 30.5-36.0 [facility] Comment on above: Performed By: #### L [id number] ####Duct Installer: GISSEL SHAW ([id number])[facility] (SBHLAB)[address] MCV (RBC) [Entitic vol] 89.3 fL Normal 77.0-99.0 S [facility] Comment on above: Performed By: #### L [id number] ####Duct Installer: GISSEL SHAW ([id number])[facility] (SBHLAB)[address] Platelet mean volume (Bld) [Entitic vol] 11.4 fL Normal 9.0-12.7 [facility] Comment on above: Performed By: #### L [id number] ####Duct Installer: GISSEL SHAW ([id number])[facility] (SBHLAB)[address] [place] [address] [place] Platelets (Bld) [#/Vol] 119 10*3/uL Low 140-440 [facility] Comment on above: Performed By: #### L [id number] ####Duct Installer: GISSEL SHAW ([id number])[facility] (SB[facility]AB)[address] RBC (Bld) [#/Vol] 3.94 10*6/uL Low 4.40-5.90 [facility] Comment on above: Performed By: #### L [id number] ####Duct Installer: GISESL SHAW ([id number])[facility] (SBHLAB)[address] WBC (Bld) [#/Vol] 6.8 10*3/uL Normal 3.6-10.7 [facility] Comment on above: Performed By: #### L [id number] ####Duct Installer: GISSEL SHAW ([id number])[facility] (SBHLAB)[address] CBC W Auto Differential pane l (Bld)on 03-31-2025 Basophils (Bld) [#/Vol] 0 10*3/uL 0.0 - 0.2 10*3/uL [facility] Basophils/100 WBC (Bld) 0.1 % 0.0 - 2.0 % [facility] Eosinophils (Bld) [#/Vol] 0 10*3/uL 0.0 - 0.5 10*3/uL [facility] Eosinophils/100 WBC (Bld) 0.3 % 0.0 - 6.0 % [facility]ym[facility] Erythrocyte distribution width (RBC) [Ratio] 12.7 % 11.5 - 15.0 % [facility] Hematocrit (Bld) [Volume fraction] 33.7 % Low 40.0 - 52.0 % [facility] Hemoglobin (Bld) [Mass/Vol] 11.4 g/dL Low 13.0 - 18.0 g/dL [facility] Immature granulocytes (Bld) [#/Vol] 0 10*3/uL NINF - 0.1 10*3/uL [facility] Immature granulocytes/100 WBC (Bld) 0.3 % 0.0 - 2.0 % [facility] Interpretation and review of laboratory results Abnormal [facility] IPF 3 [facility] Lymphocytes (Bld) [#/Vol] 1.1 10*3/uL 1.0 - 4.3 10*3/uL [facility] Lymphocytes/100 WBC (Bld) 15.4 % 15.0 - 45.0 % [facility] MCH (RBC) [Entitic mass] 30.3 pg 26. 0 - 34.0 pg [facility] MCHC (RBC) [Mass/Vol] 33.8 % 30.5 - 36.0 % [facility] MCV (RBC) [Entitic vol] 89.6 fL 77.0 - 99.0 fL [facility] Monocytes (Bld) [#/Vol] 0.8 10*3/uL 0.0 - 0.9 10*3/uL [facility] Monocytes/100 WBC (Bld) 11.2 % 5.0 - 13.0 % [facility] Neutrophils (Bld) [#/Vol] 4.9 10*3/uL 1.8 - 7.5 10*3/uL [facility] Neutrophils/100 WBC (Bld) 72.7 % 38.0 - 82.0 % [facility] Nucleated RBC/100 WBC (Bld) [Ratio] 0 % [facility] Platelet mean volume (Bld) [Entitic vol] 11.1 fL 9.0 - 12.7 fL [facility] Platelets (Bld) [#/Vol] 120 10*3/uL Low 140 - 440 10*3/uL [facility] RBC (Bld) [#/Vol] 3.76 10*6/uL Low 4.40 - 5.9 0 10*6/uL [facility] WBC (Bld) [#/Vol] 6.8 10*3/uL 3.6 - 10.7 10*3/uL [facility] CBC WITH AUTO DIFFERENTIALon 03-31-2025 Basophils (Bld) [#/Vol] 0.0 10*3/uL Normal 0.0-0.2 [facility] Comment on above: Performed By: #### L [id number] ####Duct Installer: GISSEL SHAW ([id number])[facility] ([facility])[address] [place] [address] Basophils/100 WBC (Bld) 0.1 % Normal 0.0-2.0 S [facility] Comment on above: Performed By: #### L [id number] ####Duct Installer: GISSEL SHAW ([id number])[facility] (SBHLAB)[address] Eosinophils (Bld) [#/Vol] 0.0 10*3/uL Normal 0.0-0.5 [facility] Comment on above: Performed By: #### L [id number] ####Duct Installer: GISSEL BAHOLAF ([id number])[facility]ITAL[facility] (SBAB)[address] Eosinophils/100 WBC (Bld) 0.3 % Normal 0.0-6.0 [facility] Comment on above: Performed By: #### L [id number] ####Duct Installer: GISSEL BAHOLAF ([id number])[facility] ([facility])[address] [place] [address] Erythrocyte distribution width (RBC) [Ratio] 12.7 % Normal 11.5-15.0 [facility] Comment on above: Performed By: #### L [id number] ####Duct Installer: GISSEL BAHOLAF ([id number])[facility] ([facility])[address] [place] [address] Hematocrit (Bld) [Volume fraction] 33.7 % Low 40.0-52.0 [facility] Comment on above: Performed By: #### L [id number] ####Duct Installer: GISSEL SHAW ([id number])[facility] ([facility])[address] [place] [address] Hemoglobin (Bld) [Mass/Vol] 11.4 g/dL Low 13.0-18.0 [facility] Comment on above: Performed By: #### L [id number] ####Duct Installer: GISSEL SHAW ([id number])[facility] ([facility])[address] IMMATURE GRANS % 0.3 % Normal 0.0-2.0 [facility] Comment on above: Performed By: #### L [id number] ####Duct Installer: GISSEL SHAW ([id number])[facility] [place] (SBHLAB)[address] IMMATURE GRANS ABSOLUTE 0.0 10*3/uL Normal <0.1 [facility] Comment on above: Performed By: #### L [id number] ####Duct Installer: GISSEL SHAW ([id number])[facility] [place] (SBHLAB)[address] IPF 3 Normal [facility] Comment on above: Performed By: #### L [id number] ####Duct Installer: GISSEL SHAW ([id number])[facility] (SBHLAB)[address] Lymphocytes (Bld) [#/Vol] 1.1 10*3/uL Normal 1.0-4.3 [facility] Comment on above: Performed By: #### L [id number] ####Duct Installer: GISSEL SHAW ([id number])[facility] [place] (SBHLAB)[address] Lymphocytes/100 WBC (Bld) 15.4 % Normal 15.0-45.0 [facility] Comment on above: Performed By: #### L [id number] ####Duct Installer: GISSEL SHAW ([id number])[facility] (SBHLAB)[address] MCH (RBC) [Entitic mass] 30.3 pg Normal 26.0-34.0 [facility] Comment on above: Performed By: #### L [id number] ####Duct Installer: GISSEL SHAW ([id number])[facility] (SBHLAB)[address] MCHC 33.8 % Normal 30.5-36.0 [facility] Comment on above: Performed By: #### L [id number] ####Duct Installer: GISSEL SHAW ([id number])[facility] [place] (SBHLAB)[address] MCV (RBC) [Entitic vol] 89.6 fL Normal 77.0-99.0 S [facility] Comment on above: Performed By: #### L [id number] ####Duct Installer: GISSEL SHAW ([id number])[facility] [place] (SBHLAB)[address] Monocytes (Bld) [#/Vol] 0.8 10*3/uL Normal 0.0-0.9 [facility] Comment on above: Performed By: #### L [id number] ####Duct Installer: GISSEL SHAW ([id number])[facility] [place] (SB[facility]AB)[address] Monocytes/100 WBC (Bld) 11.2 % Normal 5.0-13.0 S [facility] Comment on above: Performed By: #### L [id number] ####Duct Installer: GISSEL SHAW ([id number])[facility] [place] (SBHLAB)[address] NEUTROPHILS ABSOLUTE 4.9 10*3/uL Normal 1.8-7.5 [facility] Comment on above: Performed By: #### L [id number] ####Duct Installer: GISSEL SHAW ([id number])[facility] [place] (SB[facility]AB)[address] Neutrophils/100 WBC (Bld) 72.7 % Normal 38.0-82.0 [facility] Comment on above: Performed By: #### L [id number] ####Duct Installer: GISSEL SHAW ([id number])[facility] [place] (SBHLAB)[address] [place] [address] [place] NRBC 0.0 /100 WBCs Normal 0.0-2.0 [facility] Comment on above: Performed By: #### L [id number] ####Duct Installer: GISSEL SHAW ([id number])[facility] [place] (SB[facility]AB)[address] Platelet mean volume (Bld) [Entitic vol] 11.1 fL Normal 9.0-12.7 [facility] Comment on above: Performed By: #### L [id number] ####Duct Installer: GISSEL SHAW ([id number])[facility] (SBHLAB)[address] Platelets (Bld) [#/Vol] 120 10*3/uL Low 140-440 [facility] Comment on above: Performed By: #### L [id number] ####Duct Installer: GISSEL SHAW ([id number])[facility] (SBHLAB)[address] RBC (Bld) [#/Vol] 3.76 10*6/uL Low 4.40-5.90 [facility] Comment on above: Performed By: #### L [id number] ####Duct Installer: GISSEL SHAW ([id number])[facility] (SBHLAB)[address] WBC (Bld) [#/Vol] 6.8 10*3/uL Normal 3.6-10.7 [facility] Comment on above: Performed By: #### L [id number] ####Duct Installer: GISSEL SHAW ([id number])[facility] (SBHLAB)[address] CBC panel Auto (Bld)on 03-31 Erythrocyte distribution width (RBC) [Ratio] 12.6 % 11.5 - 15.0 % [facility] Hematocrit (Bld) [Volume fraction] 35.2 % Low 40.0 - 52.0 % [facility] Hemoglobin (Bld) [Mass/Vol] 11.8 g/dL Low 13.0 - 18.0 g/dL [facility] Interpretation and review of laboratory results Abnormal [facility] IPF 4 [facility] MCH (RBC) [Entitic mass] 29.9 pg 26. 0 - 34.0 pg [facility] MCHC (RBC) [Mass/Vol] 33.5 % 30.5 - 36.0 % [facility] MCV (RBC) [Entitic vol] 89.3 fL 77.0 - 99.0 fL [facility] Platelet mean volume (Bld) [Entitic vol] 11.4 fL 9.0 - 12.7 fL [facility] Platelets (Bld) [#/Vol] 119 10*3/uL Low 140 - 440 10*3/uL [facility] RBC (Bld) [#/Vol] 3.94 10*6/uL Low 4.40 - 5.9 0 10*6/uL [facility] WBC (Bld) [#/Vol] 6.8 10*3/uL 3.6 - 10.7 10*3/uL [facility] Consulton 03-31-2025 Consult Please see previously dictated consult note Normal [facility] ECG 12-LEADon 03-31-2025 ECG 12-LEAD IMPRESSION: Sinus rhythm Nonspecific T abnormalities, anterior leads Electronically Signed On 03-31-2025 08:56:56 EDT by Pawan Chin Normal [facility] ED Nursing Noteon 03-31-2025 ED Nursing Note Patient was incontinent of stool. Cleaned up and silverio placed as ordered. Patient repositioned to comfort. Confused to situation and date. Normal [facility] Laboratory - Chemistry and C hemistry - challengeon 03-31-2025 Glucose [Mass/Vol] 254 mg/dL High 70 - 100 mg/dL [facility] Glucose [Mass/Vol] 193 mg/dL High 70 - 100 mg/dL [facility] Glucose [Mass/Vol] 165 mg/dL High 70 - 100 mg/dL [facility] Glucose [Mass/Vol] 277 mg/dL High 70 - 100 mg/dL [facility] Glucose [Mass/Vol] 294 mg/dL High 70 - 100 mg/dL [facility] Laboratory - Coagulationon 0 03-31-2025 PT Coag (Bld) [Time] 10.9 s 9.0 - 12.0 s [facility] No Panel Informationon 03-31 Interpretation and review of laboratory results Abnormal [facility] Performed by: Gibson Velázquez, [address] [place], [place] [address] [address] CLIA ID: [id number] [facility] Interpretation and review of laboratory results Abnormal [facility] Performed by: Gibson [place], Will [facility] [address] CLIA ID: [id number] [facility] Interpretation and review of laboratory results Abnormal [facility] Performed by: Gibson Velázquez, [place] [facility] [address] CLIA ID: [id number] [facility] There is no interpretation needed for this exam. IMAGING Interpretation and review of laboratory results Abnormal [facility] Performed by: [place], [place] [facility] [address] CLIA ID: [id number] [facility] Interpretation and review of laboratory results Abnormal [facility] Performed by: Gibson [place], [place] [facility] [address] CLIA ID: [id number] [facility] Sinus rhythm Nonspecific T abnormalities, anterior leads Electronically Signed On 03-31-2025 08:56:56 EDT by Pawan Chin CV Pawan Wright MD - 03/31/2025 IMPRESSION: Sinus rhythm Nonspecific T abnormalities, anterior leads Electronically Signed On 03-31-2025 08:56:56 EDT by Pawan Chin [facility] Interpretation and review of laboratory results Normal [facility] No Panel InformationOrdered By: Pawan Chin on 03-31-2025 P [place] 34 degrees [facility] Work Phone: MS Interval 174 ms [facility] Work Phone: QRS [place] 48 degrees [facility] Work Phone: QRSD Interval 88 ms [facility] Work Phone: QT Interval 339 ms [facility] Work Phone: QTC Interval 400 ms [facility] Work Phone: T Wave [place] -5 degrees [facility] Work Phone: [facility] Work Phone: Nursing Noteon 03-31-2025 Nursing Note Pt bgl 277. Dr ngo notified and insulin order placed at this time Normal [facility] Op Noteon 03-31-2025 Op Note Operative Report Patient Name: Tita Keith Date of : 1935 Date of Surgery: 03/31/25 Pre-operative diagnosis: Right peritrochanteric femur fracture Post-operative diagnosis: Same Procedure(s): Intertan nailing of right hip (CPT 94896) Surgeon: Trae Deleon M.D. Pro Shop Attendant(s): Verna PGY-I Anesthesia: Nerve Block and General EBL: 100 mL IVF: 500 mL crystalloid Medications: Two grams of Cefazolin were given. TXA 1g beginning and end of procedure Implants: Intertan 10mm x 44cm nail, 125 degree Clinical History/Indication for Surgery The patient is a 89 y.o. year old male who was presents for operative fixation of a right peritrochanteric femur fracture. Typical indications for surgery were reviewed and long Intertan nailing was recommended. Risks of surgery in general were reviewed including, but not limited to, infection, nonunion, need for additional procedures, failure of fixation which would require revision, damage to normal structures as well as medical complications such as [place], stroke, PE, DVT, and even . Patient and any family present were given opportunity to ask questions and consider his options ultimately electing to proceed with surgery. No guarantees were given or implied. Operative Narration The patient was identified in the pre-operative holding area. The surgical site was identified and marked. Informed consent was obtained. The patient was then brought to the operating room and placed supine on the operating table. Anesthesia was administered and care of the head, neck, and airway was maintained by the anesthesia staff throughout the entire procedure. Patient was placed onto the fracture table. A well padded perineal post was placed. Both feet were well padded and placed in traction. Preop fluoroscopy confirmed a successful closed reduction. All bony prominences were identified and padded. The operative leg was prepped and draped in the usual sterile fashion. A surgical timeout was performed. Antibiotics were confirmed to have been given. The 3.2mm guide pin was placed percutaneously into the greater trochanter under AP and lateral fluoroscopic guidance. Once correctly positioned the skin incision was made to allow passage of the entry reamer over the pin. The long ball-tipped guidewire was passed across fracture and centered in the distal femur. 11.5 mm reamer was passed. The length of the nail was measured. The correct length and diameter nail was impacted using the depth tower to diving judge the depth of placement. The proximal femur was prepared for the lag and worm screws with excellent compression achieved. Based on the patient's fracture pattern, the preloaded setscrew did not require locking. The distal screw was placed using perfect washoe technique. Final films were obtained and saved. All incisions were irrigated and closed in a layered fashion. Sterile dressings were applied. Once the patient was awakened from anesthesia, they were transported to the PACU in stable condition, having tolerated surgery well with no immediate complications. Postoperative Plan WBAT Abx x 24hrs DVT prophylaxis Follow up 4wks This operative report was prepared and signed by Trae Deleon MD at 03/31/25, 8:18 PM Normal [facility] PROTHROMBIN TIMEon INR Coag (PPP) [Relative time] 1.0 {INR} Normal 0.9-1.1 [facility] Comment on above: Result Comment: Marquise mmended Anticoagulant Therapy: SEE BELOW ----- INR of 2.0 - 3.0 : - Prophylaxis of Venous Thrombosis (high-risk surgery) - Treatment of Venous Thrombosis - Treatment of Pulmonary Embolism (Includes tissue heart valves, Acute Myocardial Infarction to prevent systemic embolism, Valvular Heart Disease, and Atrial Fibrillation) ----- INR of 2.5 - 3.5 : - Mechanical Prosthetic Valves (high risk) - If oral anticoagulant therapy is used to prevent Myocardial Infarction Performed By: #### Brooks [id number], [id number] ####Duct Installer: GISSEL SHAW ([id number])[facility] ([facility])[address] [place] [address] PT Coag (PPP) [Time] 10.9 s Normal 9.0-12.0 [facility] Comment on above: Performed By: #### Brooks [id number], [id number] ####Duct Installer: GISSEL SHAW ([id number])[facility] ([facility])[address] [place] [address] PT Coag (Bld) [Time]on 03-31 INR Coag (PPP) [Relative time] 1 {INR} 0.9 - 1.1 [facility] Comment on above: Recommended Anticoag ulant Therapy: SEE BELOW ----- INR of 2.0 - 3.0 : - Prophylaxis of Venous Thrombosis (high-risk surgery) - Treatment of Venous Thrombosis - Treatment of Pulmonary Embolism (Includes tissue heart valves, Acute Myocardial Infarction to prevent systemic embolism, Valvular Heart Disease, and Atrial Fibrillation) ----- INR of 2.5 - 3.5 : - Mechanical Prosthetic Valves (high risk) - If oral anticoagulant therapy is used to prevent Myocardial Infarction Progress Noteon 03-31-2025 Progress Note ASSESSMENT: 89 y.o. male with right intertrochanteric femur fracture PLAN: -Plan for OR for right hip cephalomedullary nail today 03/31/[address] 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 Mild degenerative changes of the right knee. 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 Report Dictated on Electronically Signed By: Minh Sylvester MD Electronically Signed Date/Time: 03/31/2025 12:10 AM [facility] [email or web address] Patient Name: TITA KEITH : 1935 Exam Date/Time: 03/30/2025 23:50 Procedure: XR KNEE 1-2 VIEWS RIGHT Ordering Provider: VELAZCO ISH Reason For Exam: completion of femur films for hip fx RIGHT KNEE CLINICAL INDICATION: Hip fracture AP and lateral plain film views of the right knee were obtained. COMPARISON: Plain films of the right femur performed same day FINDINGS: No fracture or dislocation of the right knee is identified. Mild tricompartmental joint space loss and degenerative spurring is noted. There is chondrocalcinosis within the medial and lateral compartments of the right knee. No joint effusion is seen on the lateral view. There is no abnormal soft tissue swelling or radiopaque foreign body. Scattered vascular calcification is noted. [facility] Minh Sylvester MD - 03/31/2025 Patient Name: TITA KEITH : 1935 [id number] Exam Date/Time: 03/30/2025 23:50 Procedure: XR KNEE 1-2 VIEWS RIGHT Ordering Provider: VELAZCO ISH Reason For Exam: completion of femur films for hip fx RIGHT KNEE CLINICAL INDICATION: Hip fracture AP and lateral plain film views of the right knee were obtained. COMPARISON: Plain films of the right femur performed same day FINDINGS: No fracture or dislocation of the right knee is identified. Mild tricompartmental joint space loss and degenerative spurring is noted. There is chondrocalcinosis within the medial and lateral compartments of the right knee. No joint effusion is seen on the lateral view. There is no abnormal soft tissue swelling or radiopaque foreign body. Scattered vascular calcification is noted. IMPRESSION: No fracture or dislocation of the right knee is identified. Mild degenerative changes of the right knee. 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 Report Dictated on Electronically Signed By: Minh Sylvester MD Electronically Signed Date/Time: 03/31/2025 12:10 AM EDT [employer] XR Knee - right 1 or 2 Views Ordered By: Minh Sylvester on 03-31-2025 [employer] XR Pelvis 1 or 2 Viewson Radiology Study observation (narrative) [facility] aPTT Coag (Bld) [Time]on aPTT Coag (PPP) [Time] 28.6 s 20.0 - 30.5 s [employer] NOTE: The therapeutic time for Heparin anticoagulation, based on Xa activity inhibition, is an APTT of 46-80 seconds. [facility] Consulton 03-30-2025 Consult Attestation signed by Trae Deleon MD at 03/31/2025 1:38 PM Patient seen and examined independently by me. Above discussed and I agree with resident note except where indicated in the EMR revision history. Also see my additional comments and changes indicated by discrete font, text color, italics, and/or initials. Labs, cultures, and radiographs where available were reviewed. Changes were made in the orders as necessary. I discussed patient concerns with Judith Newell and instructions were given. Please see our orders for the updated patient care plan. Risks of fracture surgery in general were reviewed including, but not limited to, infection, non-union, need for additional procedures, painful or prominent hardware which could require additional surgery, failure of fixation which would require revision, damage to normal structures, as well as medical complications such as WA, stroke, PE, DVT, and even . Patient/family was given opportunity to ask questions and consider his options. They ultimately elected to proceed with surgery. No guarantees were stated or implied. Ortho Consult Patient: Tita Keith Date of : 1935 Acct: [id number] PCP: Marj Plasencia Date of Admission: 03/30/2025 Date of Service: Pt seen/examined on 03/30/2025 Chief Complaint: Right hip pain History Of Present Illness: 89 y.o. male who presents with right hip pain after a fall from standing. The patient was unable to get up and had to call for help. Patient has a medical history of dementia and lives in a memory care facility. History was obtained from his daughter Kayleigh Mendez. Patient had unwitnessed fall at facility. Daughter does report that patient has become more more weak over the past several months and years and now needs to ambulate with a walker. She is not surprised that he had a fall because he is often unsteady on his feet. PMH of dementia. Lives in memory care facility. Orthopaedic surgery history none Patient ambulation status: ambulates with: walker. Antiplatelets/Antico agulation includes: none. Hx from chart and/or Pt. Past Medical History: Medical History[1] Past Surgical History: Surgical History[2] Home Medications: Prior to Admission medications Medication Sig Start Date End Date Taking? Authorizing Provider cholecalciferol (Vitamin D-3) 50 MCG (1999 UT) capsule Take 2,000 Units by mouth. Historical ProviderMD docusate sodium (Colace) 100 MG capsule Take 100 mg by mouth 2 times daily. Historical ProviderMD erythromycin (Romycin) 5 MG/GM ophthalmic ointment Apply 1 Application to left eye Nightly. Apply Amount per Dose: 0.5 inch (~1 cm) per dose. Historical ProviderMD insulin glargine (Lantus) 100 UNIT/ML injection Inject 4 Units under the skin Nightly. 12/12/23 12/11/24 Ruizalfonso Braun MD lisinopril 20 MG tablet Take 20 mg by mouth daily. Historical ProviderMD LORazepam (Ativan) 0.5 MG tablet Take 0.25 mg by mouth 4 times daily as needed for anxiety. Historical ProviderMD Melatonin 3 MG capsule Take 6 mg by mouth Nightly. Historical ProviderMD mirtazapine (Remeron) 15 MG tablet Take 15 mg by mouth Nightly. Historical ProviderMD morphine 10 MG/5ML solution Take 20 mg by mouth every 2 hours as needed for severe pain (7-10). Historical ProviderMD QUEtiapine (SEROquel) 25 MG tablet Take 0.5 tablets (12.5 mg) by mouth 2 times daily. 01/19/23 02/18/23 Kayleigh Stout, tamsulosin (Flomax) 0.4 MG 24 hr capsule Take 0.8 mg by mouth Nightly. Historical Provider, Current Hospital Medications: Current Medications[3] Allergies: Patient has no known allergies. Social History: Social History Socioeconomic History Marital status: Spouse name: Not on file Number of children: Not on file Years of education: Not on file Highest education level: Not on file Occupational History Not on file Tobacco Use Smoking status: Never Smokeless tobacco: Never Substance and Sexual Activity Alcohol use: Not Currently Drug use: Never Sexual activity: Not on file Other Topics Concern Not on file Social History Narrative Not on file Social Drivers of Health Financial Resource Strain: Not on file Food Insecurity: Not on file Transportation Needs: No Transportation Needs (12/07/2023) PRAPARE - Transportation Lack of Transportation (Medical): No Lack of Transportation (Non-Medical): No Physical Activity: Not on file Stress: Not on file Social Connections: Not on file Intimate Partner Violence: Patient Declined (09/11/2023) Humiliation, Afraid, Rape, and Kick questionnaire Fear of Current or Ex-Partner: Patient declined Emotionally Abused: Patient declined Physically Abused: (more content not included)... [facility] ED Provider Noteon ED Provider Note EMERGENCY DEPARTMENT ENCOUNTER Pt Name: Tita Keith Birthdate 1935 Date of evaluation: 03/30/2025 ED Provider: Jj Lara MD CHIEF COMPLAINT Chief Complaint Patient presents with Fall Pt had a fall last night at [facility]. [facility] performed an X-Ray that shows a right femur fracture. Pt is AxOx0 at baseline. Hip Pain Confirmed right femur fracture. HISTORY OF PRESENT ILLNESS (Location/Symptom, Timing/Onset, Context/Setting, Quality, Duration, Modifying Factors, Severity) Note limiting factors. I wore appropriate PPE for the entirety of this encounter. HPI Tita Keith is a 89 y.o. who presents to the emergency department with chief complaint of right hip fracture. Patient had a reported fall last night and had x-rays done today showing a right proximal femur intertrochanteric fracture and sent to the emergency department for this. Patient has a significant history of dementia alert and oriented x 1. Only other noted injury was some ecchymosis to the right elbow. Nursing Notes were reviewed. Limitations to history: None Outside historians: None REVIEW OF SYSTEMS Review of Systems Pertinent positives and negatives as per HPI. PAST MEDICAL HISTORY Medical History[1] SURGICAL HISTORY Surgical History[2] CURRENT MEDICATIONS Previous Medications CHOLECALCIFEROL (VITAMIN D-3) 50 MCG (2000 UT) CAPSULE Take 2,000 Units by mouth. DOCUSATE SODIUM (COLACE) 100 MG CAPSULE Take 100 mg by mouth 2 times daily. ERYTHROMYCIN (ROMYCIN) 5 MG/GM OPHTHALMIC OINTMENT Apply 1 Application to left eye Nightly. Apply Amount per Dose: 0.5 inch (~1 cm) per dose. INSULIN GLARGINE (LANTUS) 100 UNIT/ML INJECTION Inject 4 Units under the skin Nightly. LISINOPRIL 20 MG TABLET Take 20 mg by mouth daily. LORAZEPAM (ATIVAN) 0.5 MG TABLET Take 0.25 mg by mouth 4 times daily as needed for anxiety. MELATONIN 3 MG CAPSULE Take 6 mg by mouth Nightly. MIRTAZAPINE (REMERON) 15 MG TABLET Take 15 mg by mouth Nightly. MORPHINE 10 MG/5ML SOLUTION Take 20 mg by mouth every 2 hours as needed for severe pain (7-10). QUETIAPINE (SEROQUEL) 25 MG TABLET Take 0.5 tablets (12.5 mg) by mouth 2 times daily. TAMSULOSIN (FLOMAX) 0.4 MG 24 HR CAPSULE Take 0.8 mg by mouth Nightly. ALLERGIES Patient has no known allergies. FAMILY HISTORY Family History[3] SOCIAL HISTORY Social History[4] SCREENINGS PHYSICAL EXAM ED Triage Vitals Temp Heart Rate Resp BP 03/30/25 1802 03/30/25 17503/30/25175703/30/251757 37.3 ?C (99.1 ?F) 83 18 (!) 171/90 SpO2 Temp src Heart Rate Source Patient Position 03/30/251757 -- -- -- 96 % BP Location FiO2 (%) 03/30/251757 -- Left arm General appearance: Well-appearing, no acute distress. Psych: Awake alert and oriented ?1. Pleasant and cooperative. Skin: Warm and dry. Neck: Supple. Nontender Cardiovascular: Regular rate and rhythm Lungs: no accessory muscle use, tachypnea, or retractions. Abdomen: Soft, nontender, and nondistended, no rebound, rigidity, or guarding, positive bowel sounds 4 quadrants. Extremities: Warm and well perfused. NROM and SILT throughout upper and lower extermities. Pain with any range of motion of the right hip. No shortening or external rotation. No pain with range of motion of the remainder of the extremities. There is no right knee pain or ankle pain. There is a small area of ecchymosis just distal to the right elbow but no pain at the medial or lateral epicondyle. No pain at the olecranon and normal range of motion of the elbow. DIAGNOSTIC RESULTS Interpretation per the Radiologist below, if available at the time of this note: XR chest 1 view Final Result Normal examination. Report Dictated on Electronically Signed By: Gerhard Hannah MD Electronically Signed Date/Time: 03/30/2025 7:24 PM EDT XR femur right 2+ views Final Result XR pelvis 1 or 2 views Final Result ED BEDSIDE ULTRASOUND: Performed by ED Physician - none LABS: Labs Reviewed CBC WITH AUTO DIFFERENTIAL PROTHROMBIN TIME APTT BLOOD TYPE AND SCREEN GEL BASIC METABOLIC PANEL All other labs were within normal range or not returned as of this dictation. EMERGENCY DEPARTMENT COURSE and DIFFERENTIAL DIAGNOSIS/MDM: Vitals: Vitals: 03/30/25 1758 03/30/25 1800 03/30/25 1802 BP: (!) 171/90 BP Location: Left arm Pulse: 83 Resp: 18 Temp: 37.3 ?C (99.1 ?F) SpO2: 96% 96% Weight: 59 kg (130 lb) Height: 1.88 m (6' 2") The patient presented with a chief complaint of right hip fracture. The differential diagnosis associated with this patient's presentation includes intertrochanteric fracture. Our workup consisted of ordering/reviewing repeat x-rays as well as preoperative labs and x-rays.. External records reviewed: Outpatient labs and studies report from x-rays outpatient showing a right intertrochanteric fracture Diagnostics interpreted by me: Xray(s) right intertrochanter (more content not included)... Normal ubigrate [facility] No Panel InformationOrdered By: Gerhard Hannah on 03-30-2025 [employer] Work Phone: XR Chest Single viewon 03-30 Normal examination. Report Dictated on Electronically Signed By: Gerhard Hannah MD Electronically Signed Date/Time: 03/30/2025 7:24 PM EDT [facility] Patient Name: TITA KEITH : 1935 Exam Date/Time: 03/30/2025 18:52 Procedure: XR CHEST 1 VIEW Ordering Provider: LARA MARK Reason For Exam: sob Chest one view History: Short of breath The heart, mediastinum, pulmonary vasculature, lungs and pleural spaces are normal. [facility] Gerhard Hannah MD - 03/30/2025 Patient Name: TITA KEITH : 1935 Exam Date/Time: 03/30/2025 18:52 Procedure: XR CHEST 1 VIEW Ordering Provider: LARA MARK Reason For Exam: sob Chest one view History: Short of breath The heart, mediastinum, pulmonary vasculature, lungs and pleural spaces are normal. IMPRESSION: Normal examination. Report Dictated on Electronically Signed By: Gerhard Hannah MD Electronically Signed Date/Time: 03/30/2025 7:24 PM EDT [facility] Radiology Study observation (narrative) [facility] XR Femur - right 2 Viewson 0 03-30-2025 Patient Name: TITA KEITH : 1935 Exam Date/Time: 03/30/2025 19:05 Procedure: XR FEMUR 2+ VW RIGHT Ordering Provider: LARA MARK Reason For Exam: PAIN Pelvis one view and right femur two views HISTORY: Pain Acute right femoral intertrochanteric fracture. No dislocations. Mild bilateral hip degenerative changes. Report Dictated on Electronically Signed By: Gerhard Hannah MD Electronically Signed Date/Time: 03/30/2025 7:25 PM EDT [facility] Gerhard Hannah MD - 03/30/2025 Patient Name: TITA KEITH : 1935 Exam Date/Time: 03/30/2025 19:05 Procedure: XR FEMUR 2+ VW RIGHT Ordering Provider: LARA MARK Reason For Exam: PAIN Pelvis one view and right femur two views HISTORY: Pain Acute right femoral intertrochanteric fracture. No dislocations. Mild bilateral hip degenerative changes. Report Dictated on Electronically Signed By: Gerhard Hannah MD Electronically Signed Date/Time: 03/30/2025 7:25 PM EDT [facility] Radiology Study observation (narrative) [facility] XR Knee - right 1 or 2 Views on 03-30-2025 Radiology Study observation (narrative) [facility] XR Pelvis 1 or 2 Viewson Patient Name: TITA KEITH : 1935 Exam Date/Time: 03/30/2025 18:52 Procedure: XR PELVIS 1-2 VIEWS Ordering Provider: LARA MARK Reason For Exam: fall, pain Pelvis one view and right femur two views HISTORY: Pain Acute right femoral intertrochanteric fracture. No dislocations. Mild bilateral hip degenerative changes. Report Dictated on Electronically Signed By: Gerhard Hannah MD Electronically Signed Date/Time: 03/30/2025 7:25 PM T [facility] Gerhard Hannah MD - 03/30/2025 Patient Name: TITA KEITH : 1935 Exam Date/Time: 03/30/2025 18:52 Procedure: XR PELVIS 1-2 VIEWS Ordering Provider: LARA MARK Reason For Exam: fall, pain Pelvis one view and right femur two views HISTORY: Pain Acute right femoral intertrochanteric fracture. No dislocations. Mild bilateral hip degenerative changes. Report Dictated on Electronically Signed By: Gerhard Hannah MD Electronically Signed Date/Time: 03/30/2025 7:25 PM EDT [facility] Radiology Study observation (narrative) [facility] Anion gap in Serum or Plasma Ordered By: Javy Lynn on 03-03-2025 Anion gap [Moles/Vol] 9 mmol/L 5-15 [facility] BUN/creatinine ratioOrdered By: Javy Lynn on 03-03-2025 Urea nitrogen/Creatinine [Mass ratio] 24.7 mg/mg High 10-20 [facility] Bilirubin, totalOrdered By: Javy Lynn on 03-03-2025 Bilirubin [Mass/Vol] 0.48 mg/dL 0.00-1.30 [facility] CBC-Complete Blood Cnt No Di ffon 03-03-2025 Erythrocyte distribution width (RBC) [Ratio] 12.7 % Normal 11.6-14.6 [facility] Comment on above: Performed By: #### L 100.0500, L500.4050 #### [facility] [address] [place], [address] Hematocrit (Bld) [Volume fraction] 37.6 % Low 40-54 [facility] Comment on above: Performed By: #### L 100.0500, L500.4050 #### [facility] [address] [place], [address] Hemoglobin (Bld) [Mass/Vol] 12.5 g/dL Low 13.0-16.5 [facility] Comment on above: Performed By: #### L 100.0500, [id number] #### [facility] [address] [place], [address] MCH (RBC) [Entitic mass] 30.6 pg Normal 27.0-32.0 [facility] Comment on above: Performed By: #### L 100.0500, [id number] #### [facility] [address] [place], [address] MCHC (RBC) [Mass/Vol] 33.2 g/dL Normal 32-36 [facility] Comment on above: Performed By: #### L 100.0500, [id number] #### [facility] [address] [place], [address] MCV (RBC) [Entitic vol] 91.9 fL Normal 80-94 [facility] Comment on above: Performed By: #### L 100.0500, [id number] #### [facility] [address] [place], [address] Platelet mean volume (Bld) [Entitic vol] 11.1 fL Normal 6.2-12.0 [facility] Comment on above: Performed By: #### L 100.0500, [id number] #### [facility] [address] [place], [address] Platelets (Bld) [#/Vol] 163 10*3/uL Normal 150-450 [facility] Comment on above: Performed By: #### L 100.0500, [id number] #### [facility] [address] [place], [address] RBC (Bld) [#/Vol] 4.09 10*6/uL Low 4.6-6.2 [facility] Comment on above: Performed By: #### L 100.0500, [id number] #### [facility] [address] [place], [address] RDW SD 42.8 fl Normal 35.1-43.9 [facility] Comment on above: Performed By: #### L 100.0500, [id number] #### [facility] [address] [place], [address] WBC (Bld) [#/Vol] 7.4 10*3/uL Normal 4.4-11.0 [facility] Comment on above: Performed By: #### L 100.0500, [id number] #### [facility] [address] [place], [address] Carbon dioxide, total [Moles /volume] in Central venous bloodOrdered By: Javy Lynn on 03-03-2025 CO2 [Moles/Vol] 27.1 mmol/L 21.0-32.0 [facility] Chloride assayOrdered By: Manzanares on 03-03-2025 Chloride [Moles/Vol] 102 mmol/L 98-108 [facility] Comprehensive Metabolic Prof ilon 03-03-2025 Albumin [Mass/Vol] 3.7 g/dL Normal 3.4-4.8 [facility] Comment on above: Performed By: #### L 100.0500, [id number] #### [facility] [address] [place], [address] Albumin/Globulin [Mass ratio] 1.2 {ratio} Normal 0.9-2.4 [facility] Comment on above: Performed By: #### L 100.0500, [id number] #### [facility] [address] [place], [address] ALK PHOS 133 U/L High 40-129 [facility] Comment on above: Performed By: #### L 100.0500, [id number] #### [facility] [address] [place], [address] ALT [Catalytic activity/Vol] 12 U/L Normal <=46 [facility] Comment on above: Performed By: #### L 100.0500, [id number] #### [facility] [address] [place], [address] AST [Catalytic activity/Vol] 18 U/L Normal <=37 [facility] Comment on above: Performed By: #### L 100.0500, [id number] #### [facility] [address] [place], [address] Bilirubin [Mass/Vol] 0.48 mg/dL Normal 0.00-1.30 [facility] Comment on above: Performed By: #### L 100.0500, [id number] #### [facility] [address] [place], [address] BUN/CRE 24.7 RATIO High 10-20 [facility] Comment on above: Performed By: #### L 100.0500, [id number] #### [facility] [address] [place], [address] Calcium [Mass/Vol] 9.8 mg/dL Normal 7.6-11.0 [facility] Comment on above: Performed By: #### L 100.0500, [id number] #### [facility] [address] [place], [address] Chloride [Moles/Vol] 102 mmol/L Normal 98-108 [facility] Comment on above: Performed By: #### L 100.0500, [id number] #### [facility] [address] [place], [address] CO2 [Moles/Vol] 27.1 mmol/L Normal 21.0-32.0 [facility] Comment on above: Performed By: #### L 100.0500, [id number] #### [facility] [address] [place], [address] Creatinine [Mass/Vol] 1.08 mg/dL Normal 0.70-1.20 [facility] Comment on above: Performed By: #### L 100.0500, [id number] #### [facility] [address] [place], [address] GAP 9 Normal 5-15 [facility] Comment on above: Performed By: #### L 100.0500, [id number] #### [facility] [address] [place], [address] GFR/1.73 sq M.predicted among non-blacks MDRD (S/P/Bld) [Vol rate/Area] 66 mL/min/{1.73_m2} Normal >60 [facility] Comment on above: Result Comment: mL/m in/1.73m2 CKD-EPI Creatinine Equation (2020) Performed By: #### L 100.0500, [id number] #### [facility] [address] [place], [address] Globulin (S) [Mass/Vol] 3.2 g/dL Normal 2.2-4.2 [facility] Comment on above: Performed By: #### L 100.0500, [id number] #### [facility] [address] [place], [address] Glucose [Mass/Vol] 162 mg/dL High 70-99 [facility] Comment on above: Performed By: #### L 100.0500, [id number] #### [facility] [address] [place], [address] Potassium [Moles/Vol] 5.1 mmol/L Normal 3.3-5.1 [facility] Comment on above: Performed By: #### L 100.0500, [id number] #### [facility] [address] [place], [address] Sodium [Moles/Vol] 138 mmol/L Normal 133-145 [facility] Comment on above: Performed By: #### L 100.0500, [id number] #### [facility] [address] [place], [address] T PROT 6.8 g/dL Normal 5.9-8.4 [facility] Comment on above: Performed By: #### L 100.0500, [id number] #### [facility] [address] [place], [place], [id number] Urea nitrogen [Mass/Vol] 27 mg/dL High 4-19 [facility] Comment on above: Performed By: #### L 100.0500, [id number] #### [facility] [address] [place], [place], [id number] Erythrocyte distribution wid th ratioOrdered By: Javy Lynn on 03-03-2025 Erythrocyte distribution width (RBC) [Ratio] 12.7 % 11.6-14.6 [facility] Erythrocyte distribution wid th standard deviationOrdered By: Javy Lynn on 03-03-2025 Erythrocyte distribution width (RBC) [Ratio] 42.8 fl 35.1-43.9 [facility] Glomerular filtration rate ( GFR) estimation/1.73 sq m using serum, plasma, or whole bOrdered By: Javy Lynn on 03-03-2025 GFR/1.73 sq M.predicted among non-blacks MDRD (S/P/Bld) [Vol rate/Area] 66 mL/min/{1.73_m2} >60 [facility] Comment on above: mL/min/1.73m2 CKD-EP I Creatinine Equation (2020) Hematocrit Auto (Bld) [Volum e fraction]Ordered By: Javy Lynn on 03-03-2025 Hematocrit (Bld) [Volume fraction] 37.6 % Low 40-54 [facility] Hemoglobin measurementOrdere d By: Javy Lynn on 03-03-2025 Hemoglobin (Bld) [Mass/Vol] 12.5 g/dL Low 13.0-16.5 [facility] - Chemistry and C hemistry - challengeOrdered By: Javy Lynn on 03-03-2025 AST [Catalytic activity/Vol] 18 U/L <38 [facility] MCV (mean corpuscular volume ) determinationOrdered By: Javy Lynn on 03-03-2025 MCV (RBC) [Entitic vol] 91.9 fL 80-94 [facility] Mean corpuscular hemoglobin (MCH) determinationOrdered By: Javy Lynn on 03-03-2025 MCH (RBC) [Entitic mass] 30.6 pg 27.0-32.0 [facility] Mean corpuscular hemoglobin concentration (MCHC) determinationOrdered By: Javy Lynn on 03-03-2025 MCHC (RBC) [Mass/Vol] 33.2 g/dL 32-36 [facility] Mean platelet volume determi nationOrdered By: Javy Lynn on 03-03-2025 Platelet mean volume (Bld) [Entitic vol] 11.1 fL 6.2-12.0 [facility] Platelet countOrdered By: Manzanares on 03-03-2025 Platelets (Bld) [#/Vol] 163 10*3/uL 150-450 [facility] Potassium measurement (mass/ volume)Ordered By: Javy Lynn on 03-03-2025 Potassium (Unsp spec) [Mass/Vol] 5.1 mmol/L 3.3-5.1 [facility] RBC Auto (Bld) [#/Vol]Ordere d By: Javy Lynn on 03-03-2025 RBC (Bld) [#/Vol] 4.09 10*6/uL Low 4.6-6.2 [facility] Serum creatinine measurement (mass/volume)Ordered By: Javy Lynn on 03-03-2025 Creatinine [Mass/Vol] 1.08 mg/dL 0.70-1.20 [facility] Serum globulin measurementOr dered By: Javy Lynn on 03-03-2025 Globulin (S) [Mass/Vol] 3.2 g/dL 2.2-4.2 [facility] Serum glucose measurement (m ass/volume)Ordered By: Javy Lynn on 03-03-2025 Glucose [Mass/Vol] 162 mg/dL High 70-99 [facility] Serum or plasma alanine romano otransferase (ALT) measurementOrdered By: Javy Lynn on 03-03-2025 ALT [Catalytic activity/Vol] 12 U/L <47 [facility] Serum or plasma albumin asud urement (mass/volume)Ordered By: Javy Lynn on 03-03-2025 Albumin [Mass/Vol] 3.7 g/dL 3.4-4.8 [facility] Serum or plasma albumin/glob ulin mass ratioOrdered By: Javy Lynn on 03-03-2025 Albumin/Globulin [Mass ratio] 1.2 {ratio} 0.9-2.4 [facility] Serum or plasma alkaline wiliam sphatase measurementOrdered By: Javy Lynn on 03-03-2025 ALP [Catalytic activity/Vol] 133 U/L High 40-129 [facility] Serum or plasma calcium saud urement (mass/volume)Ordered By: Javy Lynn on 03-03-2025 Calcium [Mass/Vol] 9.8 mg/dL 7.6-11.0 [facility] Serum or plasma urea nitroge n measurement (mass/volume)Ordered By: Javy Lynn on 03-03-2025 Urea nitrogen [Mass/Vol] 27 mg/dL High 4-19 [facility] Serum or plasma valproate me asurement (mass/volume)Ordered By: Javy Lynn on 03-03-2025 Valproate [Mass/Vol] 19 ug/mL Low 50-100 [facility] Comment on above: Valproic Acid concen trations >100 ug/mL are potentially toxic. Sodium levelOrdered By: Javy Lynn on 03-03-2025 Sodium [Moles/Vol] 138 mmol/L 133-145 [facility] Total proteinOrdered By: Sunitha Lynn on 03-03-2025 Protein [Mass/Vol] 6.8 g/dL 5.9-8.4 [facility] Valproic Acid (Depakene) Lev angel 03-03-2025 VALPROIC ACID 19 ug/mL Low 50-100 [facility] Comment on above: Result Comment: Valp roic Acid concentrations >100 ug/mL are potentially toxic. Performed By: #### L 100.0500, L500.4050 #### [facility] [address] [address] [place], [place] [address]te[place]. [place], [place], [id number] White blood cell (WBC) count Ordered By: Javy Lynn on 03-03-2025 WBC (Bld) [#/Vol] 7.4 10*3/uL 4.4-11.0 [facility] Hemoglobin A1con 03-02-2025 HbA1c (Bld) [Mass fraction] 6.9 % High <=5.6 [facility] Comment on above: Order Comment: 206.2 Result Comment: Norm al < 5.7 % Prediabetic 5.7 - 6.4 % Diabetic >or= 6.5 % Please note range changes. Performed By: #### L 100.0500, L500.4050 #### [facility] [address] [place], [place], [id number] Hemoglobin A1c percentageOrd ered By: Javy Lynn on 03-02-2025 HbA1c (Bld) [Mass fraction] 6.9 % High <5.7 [facility] Comment on above: Normal < 5.7 % Predi abetic 5.7 - 6.4 % Diabetic >or= 6.5 % Please note range changes. Hemoglobin A1con 02-17-2025 HbA1c (Bld) [Mass fraction] 6.9 % High <=5.6 [facility] Comment on above: Order Comment: 206.2 Result Comment: Norm al < 5.7 % Prediabetic 5.7 - 6.4 % Diabetic >or= 6.5 % Please note range changes. Performed By: #### L [id number] #### [facility] [address] [place], [place], [id number] Hemoglobin A1c percentageOrd ered By: Javy Lynn on 02-17-2025 HbA1c (Bld) [Mass fraction] 6.9 % High <5.7 [facility] Comment on above: Normal < 5.7 % Predi abetic 5.7 - 6.4 % Diabetic >or= 6.5 % Please note range changes. Urine Cultureon 02-15-2025 [facility] Enterococcus faecalis [place] Count 11,000-25,000 Enterococcus faecalis: REACTION Ampicillin Islt PAVEL <=2 Ciprofloxacin Islt PAVEL <=0.5 S Gentamicin Synergy Susc Islt SYN-S S levoFLOXacin Islt PAVEL 1 S Linezolid Islt PAVEL 2 S Nitrofurantoin Islt PAVEL <=16 S Streptomycin High Pot Susc Islt SYN-S S Tetracycline Islt PAVEL >=16 R Vancomycin Islt PAVEL 1 S Normal [facility] Comment on above: Performed By: #### M 100.2200, [id number] #### [facility] [address] [place], [address] Urinalysis, Completeon 02-13 RBC 0-5 SEEN Normal 0-5 [facility] Comment on above: Order Comment: ZACH TER SPECIMEN Performed By: #### M 100.2200, [id number] #### [facility] [address] [place], [address] WBC 10-25 SEEN Normal 0-5 [facility] Comment on above: Order Comment: ZACH TER SPECIMEN Performed By: #### M 100.2200, [id number] #### [facility] [address] [place], [address] BACTERIA 0 SEEN Normal None Seen [facility] Comment on above: Order Comment: ZACH TER SPECIMEN Performed By: #### M 100.2200, [id number] #### [facility] [address] [place], [address] EPI,SQUAMOUS 0 SEEN Normal 0-5 [facility] Comment on above: Order Comment: ZACH TER SPECIMEN Performed By: #### M 100.2200, [id number] #### [facility] [address] [place], [address] Mucus Ql (Urine sed) 0 SEEN Normal [facility] Comment on above: Order Comment: ZACH TER SPECIMEN Performed By: #### M 100.2200, [id number] #### [facility] [address] [place], [address] Anion gap in Serum or Plasma Ordered By: Javy Lynn on 02-12-2025 Anion gap [Moles/Vol] 10 mmol/L 5-15 [facility] BUN/creatinine ratioOrdered By: Javy Lynn on 02-12-2025 Urea nitrogen/Creatinine [Mass ratio] 27.2 mg/mg High - [facility] Basic Metabolic Profile (BMP )on 02-12-2025 BUN/CRE 27.2 RATIO High - [facility] Comment on above: Order Comment: 206.2 Performed By: #### L 100.0500, [id number] #### [facility] [address] [place], [address] Calcium [Mass/Vol] 9.0 mg/dL Normal 7.6-11.0 [facility] Comment on above: Order Comment: 206.2 Performed By: #### L 100.0500, [id number] #### [facility] [address] [place], [address] Chloride [Moles/Vol] 103 mmol/L Normal 98-108 [facility] Comment on above: Order Comment: 206.2 Performed By: #### L 100.0500, [id number] #### [facility] [address] [place], [address] CO2 [Moles/Vol] 26.1 mmol/L Normal 21.0-32.0 [facility] Comment on above: Order Comment: 206.2 Performed By: #### L 100.0500, [id number] #### [facility] [address] [place], [address] Creatinine [Mass/Vol] 1.25 mg/dL High 0.70-1.20 [facility] Comment on above: Order Comment: 206.2 Performed By: #### L 100.0500, [id number] #### [facility] [address] [place], [address] GAP 10 Normal -15 [facility] Comment on above: Order Comment: 206.2 Performed By: #### L 100.0500, [id number] #### [facility] [address] [place], [address] GFR/1.73 sq M.predicted among non-blacks MDRD (S/P/Bld) [Vol rate/Area] 55 mL/min/{1.73_m2} Low >60 [facility] Comment on above: Order Comment: 206.2 Result Comment: mL/m in/1.73m2 CKD-EPI Creatinine Equation (2020) Performed By: #### L 100.0500, [id number] #### [facility] [address] [place], [address] Glucose [Mass/Vol] 154 mg/dL High 70-99 [facility] Comment on above: Order Comment: 206.2 Performed By: #### L 100.0500, [id number] #### [facility] [address] [place], [address] Potassium [Moles/Vol] 4.4 mmol/L Normal 3.3-5.1 [facility] Comment on above: Order Comment: 206.2 Performed By: #### L 100.0500, [id number] #### [facility] [address] [place], [address] Sodium [Moles/Vol] 139 mmol/L Normal 133-145 [facility] Comment on above: Order Comment: 206.2 Performed By: #### L 100.0500, [id number] #### [facility] [address] [place], [address] Urea nitrogen [Mass/Vol] 34 mg/dL High 4-19 [facility] Comment on above: Order Comment: 206.2 Performed By: #### L 100.0500, [id number] #### [facility] [address] [place], [address] CBC-Complete Blood Cnt No Di ffon 02-12-2025 Erythrocyte distribution width (RBC) [Ratio] 13.2 % Normal 11.6-14.6 [facility] Comment on above: Order Comment: 206.2 Performed By: #### L 100.0500, [id number] #### [facility] [address] [place], [address] Hematocrit (Bld) [Volume fraction] 32.8 % Low 40-54 [facility] Comment on above: Order Comment: 206.2 Performed By: #### L 100.0500, [id number] #### [facility] [address] [place], [address] Hemoglobin (Bld) [Mass/Vol] 10.9 g/dL Low 13.0-16.5 [facility] Comment on above: Order Comment: 206.2 Performed By: #### L 100.0500, [id number] #### [facility] [address] [place], [address] MCH (RBC) [Entitic mass] 30.6 pg Normal 27.0-32.0 [facility] Comment on above: Order Comment: 206.2 Performed By: #### L 100.0500, [id number] #### [facility] [address] [place], [address] MCHC (RBC) [Mass/Vol] 33.2 g/dL Normal 32-36 [facility] Comment on above: Order Comment: 206.2 Performed By: #### L 100.0500, [id number] #### [facility] [address] [place], [address] MCV (RBC) [Entitic vol] 92.1 fL Normal 80-94 [facility] Comment on above: Order Comment: 206.2 Performed By: #### L 100.0500, [id number] #### [facility] [address] [place], [address] Platelet mean volume (Bld) [Entitic vol] 11.7 fL Normal 6.2-12.0 [facility] Comment on above: Order Comment: 206.2 Performed By: #### L 100.0500, [id number] #### [facility] [address] [place], [address] Platelets (Bld) [#/Vol] 142 10*3/uL Low 150-450 [facility] Comment on above: Order Comment: 206.2 Performed By: #### L 100.0500, [id number] #### [facility] [address] [place], [address] RBC (Bld) [#/Vol] 3.56 10*6/uL Low 4.6-6.2 [facility] Comment on above: Order Comment: 206.2 Performed By: #### L 100.0500, [id number] #### [facility] [address] [place], [address] RDW SD 44.4 fl High 35.1-43.9 [facility] Comment on above: Order Comment: 206.2 Performed By: #### L 100.0500, [id number] #### [facility] [address] [place], [address] WBC (Bld) [#/Vol] 5.7 10*3/uL Normal 4.4-11.0 [facility] Comment on above: Order Comment: 206.2 Performed By: #### L 100.0500, [id number] #### [facility] [address] [place], [address] Carbon dioxide, total [Moles /volume] in Central venous bloodOrdered By: Javy Lynn on 02-12-2025 CO2 [Moles/Vol] 26.1 mmol/L 21.0-32.0 [facility] Chloride assayOrdered By: Manzanares on 02-12-2025 Chloride [Moles/Vol] 103 mmol/L 98-108 [facility] Erythrocyte distribution wid th ratioOrdered By: Javy Lynn on 02-12-2025 Erythrocyte distribution width (RBC) [Ratio] 13.2 % 11.6-14.6 [facility] Erythrocyte distribution wid th standard deviationOrdered By: Javy Lynn on 02-12-2025 Erythrocyte distribution width (RBC) [Ratio] 44.4 fl High 35.1-43.9 [facility] Glomerular filtration rate ( GFR) estimation/1.73 sq m using serum, plasma, or whole bOrdered By: Javy Lynn on 02-12-2025 GFR/1.73 sq M.predicted among non-blacks MDRD (S/P/Bld) [Vol rate/Area] 55 mL/min/{1.73_m2} Low >60 [facility] Comment on above: mL/min/1.73m2 CKD-EP I Creatinine Equation (2020) Hematocrit Auto (Bld) [Volum e fraction]Ordered By: Javy Lynn on 02-12-2025 Hematocrit (Bld) [Volume fraction] 32.8 % Low 40-54 [facility] Hemoglobin measurementOrdere d By: Javy Lynn 02-12-2025 Hemoglobin (Bld) [Mass/Vol] 10.9 g/dL Low 13.0-16.5 [facility] MCV (mean corpuscular volume ) determinationOrdered By: Javy Lynn 02-12-2025 MCV (RBC) [Entitic vol] 92.1 fL 80-94 [facility] Mean corpuscular hemoglobin (MCH) determinationOrdered By: Javy Lynn on 02-12-2025 MCH (RBC) [Entitic mass] 30.6 pg 27.0-32.0 [facility] Mean corpuscular hemoglobin concentration (MCHC) determinationOrdered By: Javy Lynn 02-12-2025 MCHC (RBC) [Mass/Vol] 33.2 g/dL 32-36 [facility] Mean platelet volume determi nationOrdered By: Javy Lynn 02-12-2025 Platelet mean volume (Bld) [Entitic vol] 11.7 fL 6.2-12.0 [facility] Platelet countOrdered By: Manzanares on 02-12-2025 Platelets (Bld) [#/Vol] 142 10*3/uL Low 150-450 [facility] Potassium measurement (mass/ volume)Ordered By: Javy Lynn on 02-12-2025 Potassium (Unsp spec) [Mass/Vol] 4.4 mmol/L 3.3-5.1 [facility] RBC Auto (Bld) [#/Vol]Ordere d By: Javy Lynn on 02-12-2025 RBC (Bld) [#/Vol] 3.56 10*6/uL Low 4.6-6.2 [facility] Serum creatinine measurement (mass/volume)Ordered By: Javy Lynn on 02-12-2025 Creatinine [Mass/Vol] 1.25 mg/dL High 0.70-1.20 [facility] Serum glucose measurement (m ass/volume)Ordered By: Javy Lynn on 02-12-2025 Glucose [Mass/Vol] 154 mg/dL High 70-99 [facility] Serum or plasma calcium saud urement (mass/volume)Ordered By: Javy Lynn on 02-12-2025 Calcium [Mass/Vol] 9.0 mg/dL 7.6-11.0 [facility] Serum or plasma urea nitroge n measurement (mass/volume)Ordered By: Javy Lynn on 02-12-2025 Urea nitrogen [Mass/Vol] 34 mg/dL High 4-19 [facility] Sodium levelOrdered By: Javy Lynn on 02-12-2025 Sodium [Moles/Vol] 139 mmol/L 133-145 [facility] White blood cell (WBC) count Ordered By: Javy Lynn on 02-12-2025 WBC (Bld) [#/Vol] 5.7 10*3/uL 4.4-11.0 [facility] Bilirubin Test strip Ql (U)O rdered By: Javy Lynn on 02-11-2025 Bilirubin Ql (U) Negative Negative [facility] Ketones Test strip Ql (U)Ord ered By: Javy Lynn on 02-11-2025 Ketones Ql (U) Negative Negative [facility] Microscopic analysis of urin e for red blood cells (RBC)Ordered By: Javy Lynn on 02-11-2025 Microscopic analysis of urine for red blood cells (RBC) 0-5 SEEN /hpf 0-5 [facility] Mucus LM Ql (Urine sed)Order ed By: Javy Lynn on 02-11-2025 Mucus Ql (Urine sed) 0 SEEN /hpf [facility] Nitrite Test strip Ql (U)Ord ered By: Javy Lynn on 02-11-2025 Nitrite Ql (U) Negative Negative [facility] Protein Test strip Ql (U)Ord ered By: Javy Lynn on 02-11-2025 Protein Ql (U) 100 mg/dl High Negative [facility] Squamous epithelial cells de tection in urine sediment by light microscopyOrdered By: Javy Lynn on 02-11-2025 Epithelial cells.squamous LM Ql (Urine sed) 0 SEEN /hpf 0-5 [facility] Urine clarityOrdered By: Sunitha Lynn on 02-11-2025 Clarity (U) Sl. Cloudy Clear [facility] Urine color determinationOrd ered By: Javy Lynn on 02-11-2025 Color (U) Yellow Yellow [facility] Urine cultureOrdered By: Sunitha Lynn on 02-11-2025 Bacteria identified Cx Nom (U) Enterococcus faecalis Abnormal [facility] Urine glucose detectionOrder ed By: Javy Lynn on 02-11-2025 Glucose Ql (U) Normal mg/dl Normal [facility] Urine leukocyte esterase det ection by dipstickOrdered By: Javy Lynn on 02-11-2025 Leukocyte esterase Test strip Ql (U) 500 /ul High Negative [facility] Urine pHOrdered By: Javy gordon on 02-11-2025 pH (U) 6.0 [pH] 5.0 - 8.0 [facility] Urine sediment bacteria coun t by microscopy (number/high power field)Ordered By: Javy Lynn on 02-11-2025 Bacteria LM.HPF (Urine sed) [#/Area] 0 /[HPF] None Seen [facility] Urine specific gravity measu rementOrdered By: Javy Lynn on 02-11-2025 Specific gravity (U) [Rel density] 1.015 1.002-1.030 [facility] Urine urobilinogen measureme ntOrdered By: Javy Lynn on 02-11-2025 Urobilinogen Ql (U) Normal mg/dl Normal [facility] White blood cell countOrdere d By: Javy Lynn on 02-11-2025 White blood cell count 10-25 SEEN /hpf 0-5 [facility] Hemoglobin A1c percentageOrd ered By: Javy Lynn on 11-26-2024 HbA1c (Bld) [Mass fraction] 7.7 % High 3.8-5.6 [facility] Comment on above: Normal < 5.7 % Predi abetic 5.7 - 6.4 % Diabetic >or= 6.5 % Please note range changes. Order Comment: 206.2 Result Comment: Norm al < 5.7 % Prediabetic 5.7 - 6.4 % Diabetic >or= 6.5 % Please note range changes. Performed By: #### L [id number] #### [facility] [address] [place], [address] Basic Metabolic Profile (BMP )on 11-07-2024 BUN/CRE 21.4 RATIO High 10-20 [facility] Comment on above: Order Comment: 206.2 Performed By: #### L [id number] #### [facility] [address] [place], [address] CA,Total 9.5 mg/dL Normal 8.5-10.1 [facility] Comment on above: Order Comment: 206.2 Performed By: #### L [id number] #### [facility] [address] [place], [address] Chloride [Moles/Vol] 106 mmol/L Normal 98-107 [facility] Comment on above: Order Comment: 206.2 Performed By: #### L [id number] #### [facility] [address] [place], [address] CO2 [Moles/Vol] 27.0 mmol/L Normal 21.0-32.0 [facility] Comment on above: Order Comment: .2 Performed By: #### L [id number] #### [facility] [address] [place], [address] Creatinine [Mass/Vol] 1.54 mg/dL High 0.70-1.30 [facility] Comment on above: Order Comment: 206.2 Result Comment: The validity of the calculated GFR GFRAA in patients over 70 years has not been determined. Clinical correlation is essential. Performed By: #### L [id number] #### [facility] [address] [place], [address] EST GFR - AA 55 mL/min Low >60 [facility] Comment on above: Order Comment: .2 Result Comment: Afri can [place] GFR Calc Performed By: #### L [id number] #### [facility] [address] [place], [address] GAP 6 Normal 5-15 [facility] Comment on above: Order Comment: .2 Performed By: #### L [id number] #### [facility] [address] [place], [address] GFR/1.73 sq M.predicted among non-blacks MDRD (S/P/Bld) [Vol rate/Area] 45 mL/min/{1.73_m2} Low >60 [facility] Comment on above: Order Comment: 206.2 Result Comment: Non- GFR Calc Performed By: #### L [id number] #### [facility] [address] [place], [address] Glucose [Mass/Vol] 173 mg/dL High 74-106 [facility] Comment on above: Order Comment: 206.2 Result Comment: Fast ing Glucose result greater than or equal to 126 mg/dL suggests DIABETES MELLITUS per A.D.A. criteria. Performed By: #### L [id number] #### [facility] [address] [place], [address] Potassium [Moles/Vol] 4.7 mmol/L Normal 3.5-5.1 [facility] Comment on above: Order Comment: 206.2 Performed By: #### L [id number] #### [facility] [address] [place], [address] Sodium [Moles/Vol] 139 mmol/L Normal 136-145 [facility] Comment on above: Order Comment: 206.2 Performed By: #### L [id number] #### [facility] [address] [place], [address] Urea nitrogen [Mass/Vol] 33 mg/dL High 7-18 [facility] Comment on above: Order Comment: 206.2 Performed By: #### L [id number] #### [facility] [address] [place], [address] Blood urea nitrogen (BUN)/cr eatinine ratioOrdered By: Javy Lynn on 11-07-2024 Urea nitrogen/Creatinine [Mass ratio] 21.4 mg/mg High 10-20 [facility] CBC-Complete Blood Cnt No Di ffon 11-07-2024 Erythrocyte distribution width (RBC) [Ratio] 13.0 % Normal 11.6-14.6 [facility] Comment on above: Order Comment: 206.2 Performed By: #### L [id number] #### [facility] [address] [place], [address] Hematocrit (Bld) [Volume fraction] 40.2 % Normal 40-54 [facility] Comment on above: Order Comment: 206.2 Performed By: #### L [id number] #### [facility] [address] [place], [address] Hemoglobin (Bld) [Mass/Vol] 12.8 g/dL Low 13.0-16.5 [facility] Comment on above: Order Comment: 206.2 Performed By: #### L [id number] #### [facility] [address] [place], [address] MCH (RBC) [Entitic mass] 29.5 pg Normal 27.0-32.0 [facility] Comment on above: Order Comment: 206.2 Performed By: #### L [id number] #### [facility] [address] [place], [address] MCHC (RBC) [Mass/Vol] 31.8 g/dL Low 32-36 [facility] Comment on above: Order Comment: 206.2 Performed By: #### L [id number] #### [facility] [address] [place], [address] MCV (RBC) [Entitic vol] 92.6 fL Normal 80-94 [facility] Comment on above: Order Comment: 206.2 Performed By: #### L [id number] #### [facility] [address] [place], [address] Platelet mean volume (Bld) [Entitic vol] 11.6 fL Normal 6.2-12.0 [facility] Comment on above: Order Comment: 206.2 Performed By: #### L [id number] #### [facility] [address] [place], [address] Platelets (Bld) [#/Vol] 111 10*3/uL Low 150-450 [facility] Comment on above: Order Comment: 206.2 Performed By: #### L [id number] #### [facility] [address] [place], [address] RBC (Bld) [#/Vol] 4.34 10*6/uL Low 4.6-6.2 [facility] Comment on above: Order Comment: 206.2 Performed By: #### L [id number] #### [facility] [address] [place], [address] RDW SD 44.2 fl High 35.1-43.9 [facility] Comment on above: Order Comment: 206.2 Performed By: #### L [id number] #### [facility] [address] [place], [address] WBC (Bld) [#/Vol] 5.6 10*3/uL Normal 4.4-11.0 [facility] Comment on above: Order Comment: 206.2 Performed By: #### L [id number] #### [facility] [address] [place], [address] Carbon dioxide measurementOr dered By: Javy Lynn on 11-07-2024 CO2 [Moles/Vol] 27.0 mmol/L 21.0-32.0 [facility] Chloride measurementOrdered By: Javy Lynn on 11-07-2024 Chloride [Moles/Vol] 106 mmol/L 98-107 [facility] Erythrocyte distribution wid th ratioOrdered By: Javy Lynn on 11-07-2024 Erythrocyte distribution width (RBC) [Ratio] 13.0 % 11.6-14.6 [facility] Erythrocyte distribution wid th standard deviationOrdered By: Javy Lynn on 11-07-2024 Erythrocyte distribution width (RBC) [Ratio] 44.2 fl High 35.1-43.9 [facility] Glomerular filtration rate ( GFR) estimationOrdered By: Javy Lynn on 11-07-2024 GFR/1.73 sq M.predicted among non-blacks MDRD (S/P/Bld) [Vol rate/Area] 45 mL/min/{1.73_m2} Low >60 [facility] Comment on above: Non- GFR Calc Glucose measurementOrdered B y: Javy Lynn on 11-07-2024 Glucose [Mass/Vol] 173 mg/dL High 74-106 [facility] Comment on above: Fasting Glucose resu lt greater than or equal to 126 mg/dL suggests DIABETES MELLITUS per A.D.A. criteria. Hematocrit Auto (Bld) [Volum e fraction]Ordered By: Javy Lynn on 11-07-2024 Hematocrit (Bld) [Volume fraction] 40.2 % 40-54 [facility] Hemoglobin measurementOrdere d By: Javy Lynn on 11-07-2024 Hemoglobin (Bld) [Mass/Vol] 12.8 g/dL Low 13.0-16.5 [facility] MCV (mean corpuscular volume ) determinationOrdered By: Javy Lynn on 11-07-2024 MCV (RBC) [Entitic vol] 92.6 fL 80-94 [facility] Mean corpuscular hemoglobin (MCH) determinationOrdered By: Javy Lynn on 11-07-2024 MCH (RBC) [Entitic mass] 29.5 pg 27.0-32.0 [facility] Mean corpuscular hemoglobin concentration (MCHC) determinationOrdered By: Javy Lynn on 11-07-2024 MCHC (RBC) [Mass/Vol] 31.8 g/dL Low 32-36 [facility] Mean platelet volume determi nationOrdered By: Javy Lynn on 11-07-2024 Platelet mean volume (Bld) [Entitic vol] 11.6 fL 6.2-12.0 [facility] Platelet countOrdered By: Manzanares on 11-07-2024 Platelets (Bld) [#/Vol] 111 10*3/uL Low 150-450 [facility] Potassium measurementOrdered By: Javy Lynn on 11-07-2024 Potassium [Moles/Vol] 4.7 mmol/L 3.5-5.1 [facility] RBC Auto (Bld) [#/Vol]Ordere d By: Javy Lynn on 11-07-2024 RBC (Bld) [#/Vol] 4.34 10*6/uL Low 4.6-6.2 [facility] Serum anion gap measurementO rdered By: Javy Lynn on 11-07-2024 Anion gap [Moles/Vol] 6 mmol/L 5-15 [facility] Serum or plasma calcium saud urement (mass/volume)Ordered By: Javy Lynn on 11-07-2024 Calcium [Mass/Vol] 9.5 mg/dL 8.5-10.1 [facility] Serum or plasma creatinine m easurement (mass/volume)Ordered By: Javy Lynn on 11-07-2024 Creatinine [Mass/Vol] 1.54 mg/dL High 0.70-1.30 [facility] Comment on above: The validity of the calculated GFR & GFRAA in patients over 70 years has not been determined. Clinical correlation is essential. Serum or plasma urea nitroge n measurement (mass/volume)Ordered By: Javy Lynn on 11-07-2024 Urea nitrogen [Mass/Vol] 33 mg/dL High 7-18 [facility] Sodium levelOrdered By: Javy Lynn on 11-07-2024 Sodium [Moles/Vol] 139 mmol/L 136-145 [facility] White blood cell (WBC) count Ordered By: Javy Lynn on 11-07-2024 WBC (Bld) [#/Vol] 5.6 10*3/uL 4.4-11.0 [facility] CBC-Complete Blood Cnt No Di ffon 10-07-2024 Erythrocyte distribution width (RBC) [Ratio] 12.9 % Normal 11.6-14.6 [facility] Comment on above: Order Comment: 206.2 Performed By: #### L [id number] #### [facility] [address] [place], [address] ( Hematocrit (Bld) [Volume fraction] 38.2 % Low 40-54 [facility] Comment on above: Order Comment: 206.2 Performed By: #### L [id number] #### [facility] [address] [place], [address] Hemoglobin (Bld) [Mass/Vol] 12.2 g/dL Low 13.0-16.5 [facility] Comment on above: Order Comment: 206.2 Performed By: #### L [id number] #### [facility] [address] [place], [address] MCH (RBC) [Entitic mass] 29.9 pg Normal 27.0-32.0 [facility] Comment on above: Order Comment: 206.2 Performed By: #### L [id number] #### [facility] [address] [place], [address] MCHC (RBC) [Mass/Vol] 31.9 g/dL Low 32-36 [facility] Comment on above: Order Comment: 206.2 Performed By: #### L [id number] #### [facility] [address] [place], [address] MCV (RBC) [Entitic vol] 93.6 fL Normal 80-94 [facility] Comment on above: Order Comment: 206.2 Performed By: #### L [id number] #### [facility] [address] [place], [address] Platelet mean volume (Bld) [Entitic vol] 11.6 fL Normal 6.2-12.0 [facility] Comment on above: Order Comment: 206.2 Performed By: #### L [id number] #### [facility] [address] [place], [address] Platelets (Bld) [#/Vol] 173 10*3/uL Normal 150-450 [facility] Comment on above: Order Comment: 206.2 Performed By: #### L [id number] #### [facility] [address] [place], [address] RBC (Bld) [#/Vol] 4.08 10*6/uL Low 4.6-6.2 [facility] Comment on above: Order Comment: 206.2 Performed By: #### L [id number] #### [facility] [address] [place], [address] RDW SD 44.7 fl High 35.1-43.9 [facility] Comment on above: Order Comment: 206.2 Performed By: #### L [id number] #### [facility] [address] [place], [address] WBC (Bld) [#/Vol] 3.9 10*3/uL Low 4.4-11.0 [facility] Comment on above: Order Comment: 206.2 Performed By: #### L [id number] #### [facility] Laboratory [address] [place], [address] Comprehensive Metabolic Prof ilon 10-07-2024 Albumin [Mass/Vol] 2.8 g/dL Low 3.2-5.0 [facility] Comment on above: Order Comment: 206.2 Performed By: #### L 501.9985 #### [facility] [address] [place], [address] Albumin/Globulin [Mass ratio] 0.8 {ratio} Low 0.9-2.4 [facility] Comment on above: Order Comment: 206.2 Performed By: #### L [id number] #### [facility] [address] [place], [address] ALK P 112 U/L Normal 45-117 [facility] Comment on above: Order Comment: 206.2 Performed By: #### L [id number] #### [facility] [address] [place], [address] ALT [Catalytic activity/Vol] 18 U/L Normal 16-61 [facility] Comment on above: Order Comment: 206.2 Performed By: #### L 501.9985 #### [facility] [address] [place], [address] AST [Catalytic activity/Vol] 20 U/L Normal 15-37 [facility] Comment on above: Order Comment: 206.2 Result Comment: Slig ht Hemolysis, Result may be falsely increased. Performed By: #### L [id number] #### [facility] [address] [place], [address] Bilirubin [Mass/Vol] 0.30 mg/dL Normal 0.20-1.00 [facility] Comment on above: Order Comment: 206.2 Result Comment: For patients on eltrombopag therapy, use of Dimension [place] TBIL is not recommended. Performed By: #### L [id number] #### [facility] [address] [place], [address] BUN/CRE 31.9 RATIO High 10-20 [facility] Comment on above: Order Comment: 206.2 Performed By: #### L [id number] #### [facility] [address] [place], [address] CA,Total 9.1 mg/dL Normal 8.5-10.1 [facility] Comment on above: Order Comment: 206.2 Performed By: #### L [id number] #### [facility] [address] [place], [address] Chloride [Moles/Vol] 109 mmol/L High 98-107 [facility] Comment on above: Order Comment: 206.2 Performed By: #### L [id number] #### [facility] [address] [place], [address] CO2 [Moles/Vol] 26.0 mmol/L Normal 21.0-32.0 [facility] Comment on above: Order Comment: 206.2 Performed By: #### L [id number] #### [facility] [address] [place], [address] Creatinine [Mass/Vol] 1.19 mg/dL Normal 0.70-1.30 [facility] Comment on above: Order Comment: 206.2 Result Comment: The validity of the calculated GFR GFRAA in patients over 70 years has not been determined. Clinical correlation is essential. Performed By: #### L [id number] #### [facility] [address] [place], [address] EST GFR - AA 74 mL/min Normal >60 [facility] Comment on above: Order Comment: .2 Result Comment: Afri can [place] GFR Calc Performed By: #### L [id number] #### [facility] [address] [place], [address] GAP 5 Normal 5-15 [facility] Comment on above: Order Comment: .2 Performed By: #### L [id number] #### [facility] [address] [place], [address] GFR/1.73 sq M.predicted among non-blacks MDRD (S/P/Bld) [Vol rate/Area] 61 mL/min/{1.73_m2} Normal >60 [facility] Comment on above: Order Comment: .2 Result Comment: Non- GFR Calc Performed By: #### L [id number] #### [facility] [address] [place], [address] Globulin (S) [Mass/Vol] 3.7 g/dL Normal 2.2-4.2 [facility] Comment on above: Order Comment: .2 Performed By: #### L [id number] #### [facility] [address] [place], [address] Glucose [Mass/Vol] 89 mg/dL Normal 74-106 [facility] Comment on above: Order Comment: .2 Performed By: #### L [id number] #### [facility] [address] [place], [address] Potassium [Moles/Vol] 4.4 mmol/L Normal 3.5-5.1 [facility] Comment on above: Order Comment: 206.2 Result Comment: Slig ht Hemolysis, Result may be falsely increased. Performed By: #### L [id number] #### [facility] [address] [place], [address] Sodium [Moles/Vol] 139 mmol/L Normal 136-145 [facility] Comment on above: Order Comment: 206.2 Performed By: #### L [id number] #### [facility] [address] [place], [address] T PROT 6.5 g/dL Normal 6.4-8.2 [facility] Comment on above: Order Comment: 206.2 Performed By: #### L [id number] #### [facility] [address] [place], [address] Urea nitrogen [Mass/Vol] 38 mg/dL High 7-18 [facility] Comment on above: Order Comment: 206.2 Performed By: #### L [id number] #### [facility] [address] [place], [address] Urine Cultureon 09-21-2024 [facility] Organism is too fastidious for routine susceptibility studies. Urine Culture Urine Culture Urine Culture Aerococcus sanguinicola [place] Count >100,000 Normal [facility] Comment on above: Performed By: #### L 100.0500, L500.4050 #### [facility] [address] [place], [address] CBC-Complete Blood Cnt No Di ffon 09-17-2024 Erythrocyte distribution width (RBC) [Ratio] 13.2 % Normal 11.6-14.6 [facility] Comment on above: Order Comment: 206.2 Performed By: #### L 100.0500, L500.4050 #### [facility] [address] [place], [address] Hematocrit (Bld) [Volume fraction] 36.0 % Low 40-54 [facility] Comment on above: Order Comment: 206.2 Performed By: #### L 100.0500, L500.4050 #### [facility] [address] [place], [address] Hemoglobin (Bld) [Mass/Vol] 12.0 g/dL Low 13.0-16.5 [facility] Comment on above: Order Comment: 206.2 Performed By: #### L 100.0500, L500.4050 #### [facility] [address] [place], [address] MCH (RBC) [Entitic mass] 30.5 pg Normal 27.0-32.0 [facility] Comment on above: Order Comment: 206.2 Performed By: #### L 100.0500, L500.4050 #### [facility] [address] [place], [address] MCHC (RBC) [Mass/Vol] 33.3 g/dL Normal 32-36 [facility] Comment on above: Order Comment: 206.2 Performed By: #### L 100.0500, L500.4050 #### [facility] [address] [place], [address] MCV (RBC) [Entitic vol] 91.6 fL Normal 80-94 [facility] Comment on above: Order Comment: 206.2 Performed By: #### L 100.0500, L500.4050 #### [facility] [address] [place], [address] Platelet mean volume (Bld) [Entitic vol] 12.0 fL Normal 6.2-12.0 [facility] Comment on above: Order Comment: 206.2 Performed By: #### L 100.0500, L500.4050 #### [facility] [address] [place], [address] Platelets (Bld) [#/Vol] 119 10*3/uL Low 150-450 [facility] Comment on above: Order Comment: 206.2 Performed By: #### L 100.0500, L500.4050 #### [facility] [address] [place], [address] RBC (Bld) [#/Vol] 3.93 10*6/uL Low 4.6-6.2 [facility] Comment on above: Order Comment: 206.2 Performed By: #### L 100.0500, L500.4050 #### [facility] [address] [place], [address] RDW SD 44.2 fl High 35.1-43.9 [facility] Comment on above: Order Comment: 206.2 Performed By: #### L 100.0500, L500.4050 #### [facility] [address] [place], [address] WBC (Bld) [#/Vol] 14.0 10*3/uL High 4.4-11.0 [facility] Comment on above: Order Comment: 206.2 Performed By: #### L 100.0500, L500.4050 #### [facility] [address] [place], [address] Comprehensive Metabolic Prof [facility] 09-17-2024 Albumin [Mass/Vol] 2.9 g/dL Low 3.2-5.0 [facility] Comment on above: Order Comment: 206.2 Performed By: #### L 100.0500, L500.4050 #### [facility] [address] [place], [address] Albumin/Globulin [Mass ratio] 0.8 {ratio} Low 0.9-2.4 [facility] Comment on above: Order Comment: 206.2 Performed By: #### L 100.0500, L500.4050 #### [facility] [address] [place], [address] ALK P 97 U/L Normal 45-117 [facility] Comment on above: Order Comment: 206.2 Performed By: #### L 100.0500, L500.4050 #### [facility] [address] [place], [address] ALT [Catalytic activity/Vol] 24 U/L Normal 16-61 [facility] Comment on above: Order Comment: 206.2 Performed By: #### L 100.0500, L500.4050 #### [facility] [address] [place], [address] AST [Catalytic activity/Vol] 17 U/L Normal 15-37 [facility] Comment on above: Order Comment: 206.2 Performed By: #### L 100.0500, L500.4050 #### [facility] [address] [place], [address] Bilirubin [Mass/Vol] 0.60 mg/dL Normal 0.20-1.00 [facility] Comment on above: Order Comment: 206.2 Result Comment: For patients on eltrombopag therapy, use of Dimension [place] TBIL is not recommended. Performed By: #### L 100.0500, L500.4050 #### [facility] [address] [place], [address] BUN/CRE 26.8 RATIO High 10-20 [facility] Comment on above: Order Comment: 206.2 Performed By: #### L 100.0500, L500.4050 #### [facility] [address] [place], [address] CA,Total 9.0 mg/dL Normal 8.5-10.1 [facility] Comment on above: Order Comment: 206.2 Performed By: #### L 100.0500, L500.4050 #### [facility] [address] [place], [address] Chloride [Moles/Vol] 104 mmol/L Normal 98-107 [facility] Comment on above: Order Comment: 206.2 Performed By: #### L 100.0500, L500.4050 #### [facility] [address] [place], [address] CO2 [Moles/Vol] 29.0 mmol/L Normal 21.0-32.0 [facility] Comment on above: Order Comment: . Performed By: #### L 100.0500, L500.4050 #### [facility] [address] [place], [address] Creatinine [Mass/Vol] 1.53 mg/dL High 0.70-1.30 [facility] Comment on above: Order Comment: . Result Comment: The validity of the calculated GFR GFRAA in patients over 70 years has not been determined. Clinical correlation is essential. Performed By: #### L 100.0500, L500.4050 #### [facility] [address] [place], [address] EST GFR - AA 55 mL/min Low >60 [facility] Comment on above: Order Comment: Result Comment: Afri can [place] GFR Calc Performed By: #### L 100.0500, L500.4050 #### [facility] [address] [place], [address] GAP 5 Normal 5-15 [facility] Comment on above: Order Comment: . Performed By: #### L 100.0500, L500.4050 #### [facility] [address] [place], [address] GFR/1.73 sq M.predicted among non-blacks MDRD (S/P/Bld) [Vol rate/Area] 46 mL/min/{1.73_m2} Low >60 [facility] Comment on above: Order Comment: . Result Comment: Non- GFR Calc Performed By: #### L 100.0500, L500.4050 #### [facility] [address] [place], [address] Globulin (S) [Mass/Vol] 3.5 g/dL Normal 2.2-4.2 [facility] Comment on above: Order Comment: 206.2 Performed By: #### L 100.0500, L500.4050 #### [facility] [address] [place], [address] Glucose [Mass/Vol] 172 mg/dL High 74-106 [facility] Comment on above: Order Comment: 206.2 Result Comment: Fast ing Glucose result greater than or equal to 126 mg/dL suggests DIABETES MELLITUS per A.D.A. criteria. Performed By: #### L 100.0500, L500.4050 #### [facility] [address] [place], [address] Potassium [Moles/Vol] 4.4 mmol/L Normal 3.5-5.1 [facility] Comment on above: Order Comment: 206.2 Performed By: #### L 100.0500, L500.4050 #### [facility] [address] [place], [address] Sodium [Moles/Vol] 138 mmol/L Normal 136-145 [facility] Comment on above: Order Comment: 206.2 Performed By: #### L 100.0500, L500.4050 #### [facility] [address] [place], [address] T PROT 6.4 g/dL Normal 6.4-8.2 [facility] Comment on above: Order Comment: 206.2 Performed By: #### L 100.0500, L500.4050 #### [facility] [address] [place], [address] Urea nitrogen [Mass/Vol] 41 mg/dL High 7-18 [facility] Comment on above: Order Comment: 206.2 Performed By: #### L 100.0500, L500.4050 #### [facility] [address] [place], [address] Urinalysis, Completeon 11-27 -2024 RBC > 100 SEEN Normal 0-5 [facility] Comment on above: Order Comment: 206.2 Result Comment: Micr oscopic field is filled. Other elements may be obscured. Performed By: #### L 100.0500, L500.4050 #### [facility] [address] [place], [address] WBC >100 SEEN Normal 0-5 [facility] Comment on above: Order Comment: 206.2 Result Comment: Micr oscopic field is filled. Other elements may be obscured. Performed By: #### L 100.0500, L500.4050 #### [facility] [address] [place], [address] BACTERIA 0 SEEN Normal None Seen [facility] Comment on above: Order Comment: 206.2 Performed By: #### L 100.0500, L500.4050 #### [facility] [address] [place], [address] EPI,SQUAMOUS 0 SEEN Normal 0-5 [facility] Comment on above: Order Comment: 206.2 Performed By: #### L 100.0500, L500.4050 #### [facility] [address] [place], [address] Mucus Ql (Urine sed) 0 SEEN Normal [facility] Comment on above: Order Comment: 206.2 Performed By: #### L 100.0500, L500.4050 #### [facility] [address] [place], [address] Valproic Acid (Depakene) Lev angel 09-17-2024 VALPROIC ACID 10 ug/mL Low 50-100 [facility] Comment on above: Order Comment: 206.2 Performed By: #### L 100.0500, L500.4050 #### [facility] [address] [place], [address] CBC-Complete Blood Cnt No Di ffon 09-16-2024 HCT Normal 40-54 [facility] Comment on above: Order Comment: Result Comment: UTO X1 Performed By: #### L 100.0500, L500.4050 #### [facility] [address] [place], [address] HGB Normal 13.0-16.5 [facility] Comment on above: Order Comment: Result Comment: UTO X1 Performed By: #### L 100.0500, L500.4050 #### [facility] [address] [place], [address] MCH Normal 27.0-32.0 [facility] Comment on above: Order Comment: Result Comment: UTO X1 Performed By: #### L 100.0500, L500.4050 #### [facility] [address] [place], [address] MCHC Normal 32-36 [facility] Comment on above: Order Comment: Result Comment: UTO X1 Performed By: #### L 100.0500, L500.4050 #### [facility] [address] [place], [address] MCV Normal 80-94 [facility] Comment on above: Order Comment: Result Comment: UTO X1 Performed By: #### L 100.0500, L500.4050 #### [facility] [address] [place], [address] PLT Normal 150-450 [facility] Comment on above: Order Comment: Result Comment: UTO X1 Performed By: #### L 100.0500, L500.4050 #### [facility] [address] [place], [address] RBC Normal 4.6-6.2 [facility] Comment on above: Order Comment: Result Comment: UTO X1 Performed By: #### L 100.0500, L500.4050 #### [facility] [address] [place], [address] RDW CV Normal 11.6-14.6 [facility] Comment on above: Order Comment: Result Comment: UTO X1 Performed By: #### L 100.0500, L500.4050 #### [facility] [address] [place], [address] RDW SD Normal 35.1-43.9 [facility] Comment on above: Order Comment: Result Comment: UTO X1 Performed By: #### L 100.0500, L500.4050 #### [facility] [address] [place], [address] WBC Normal 4.4-11.0 [facility] Comment on above: Order Comment: Result Comment: UTO X1 Performed By: #### L 100.0500, L500.4050 #### [facility] [address] [place], [address] Comprehensive Metabolic Prof ilon 09-16-2024 ALB Normal 3.2-5.0 [facility] Comment on above: Order Comment: Result Comment: UTO X1 Performed By: #### L 100.0500, L500.4050 #### [facility] [address] [place], [address] ALK P Normal 45-117 [facility] Comment on above: Order Comment: Result Comment: UTO X1 Performed By: #### L 100.0500, L500.4050 #### [facility] [address] [place], [address] ALT Normal 16-61 [facility] Comment on above: Order Comment: Result Comment: UTO X1 Performed By: #### L 100.0500, L500.4050 #### [facility] [address] [place], [address] AST Normal 15-37 [facility] Comment on above: Order Comment: . Result Comment: UTO X1 Performed By: #### L 100.0500, L500.4050 #### [facility] [address] [place], [address] BUN Normal 7-18 [facility] Comment on above: Order Comment: . Result Comment: UTO X1 Performed By: #### L 100.0500, L500.4050 #### [facility] [address] [place], [address] BUN/CRE Normal 10-20 [facility] Comment on above: Order Comment: Result Comment: UTO X1 Performed By: #### L 100.0500, L500.4050 #### [facility] [address] [place], [address] CA,Total Normal 8.5-10.1 [facility] Comment on above: Order Comment: Result Comment: UTO X1 Performed By: #### L 100.0500, L500.4050 #### [facility] [address] [place], [address] CL Normal 98-107 [facility] Comment on above: Order Comment: . Result Comment: UTO X1 Performed By: #### L 100.0500, L500.4050 #### [facility] [address] [place], [address] CO2 Normal 21.0-32.0 [facility] Comment on above: Order Comment: Result Comment: UTO X1 Performed By: #### L 100.0500, L500.4050 #### [facility] [address] [place], [address] CREAT,SERUM Normal 0.70-1.30 [facility] Comment on above: Order Comment: .2 Result Comment: UTO X1 Performed By: #### L 100.0500, L500.4050 #### [facility] [address] [place], [address] EST GFR Normal >60 [facility] Comment on above: Order Comment: Result Comment: UTO X1 Performed By: #### L 100.0500, L500.4050 #### [facility] [address] [place], [address] EST GFR - AA Normal >60 [facility] Comment on above: Order Comment: Result Comment: UTO X1 Performed By: #### L 100.0500, L500.4050 #### [facility] [address] [place], [address] GAP Normal 5-15 [facility] Comment on above: Order Comment: Result Comment: UTO X1 Performed By: #### L 100.0500, L500.4050 #### [facility] [address] [place], [address] GLU Normal 74-106 [facility] Comment on above: Order Comment: Result Comment: UTO X1 Performed By: #### L 100.0500, L500.4050 #### [facility] [address] [place], [address] Potassium Normal 3.5-5.1 [facility] Comment on above: Order Comment: Result Comment: UTO X1 Performed By: #### L 100.0500, L500.4050 #### [facility] [address] [place], [address] T BILI Normal 0.20-1.00 [facility] Comment on above: Order Comment: Result Comment: UTO X1 Performed By: #### L 100.0500, L500.4050 #### [facility] [address] [place], [address] T PROT Normal 6.4-8.2 [facility] Comment on above: Order Comment: Result Comment: UTO X1 Performed By: #### L 100.0500, L500.4050 #### [facility] [address] [place], [address] Comprehensive Metabolic Profil Normal 136-145 [facility] Comment on above: Order Comment: Result Comment: UTO X1 Performed By: #### L 100.0500, L500.4050 #### [facility] [address] [place], [address] Hemoglobin A1con 09-02-2024 HbA1c (Bld) [Mass fraction] 8.6 % High 3.8-5.6 [facility] Comment on above: Order Comment: Result Comment: Norm al < 5.7 % Prediabetic 5.7 - 6.4 % Diabetic >or= 6.5 % Please note range changes. Performed By: #### L 501.9985 #### [facility] [address] [place], [place], [address] Urine Cultureon 08-29-2024 [facility] Enterococcus faecalis [place] Count 80,000-100,000 Enterococcus faecalis: REACTION Ampicillin Islt PAVEL <=2 Ciprofloxacin Islt PAVEL <=0.5 S levoFLOXacin Islt PAVEL 2 S Linezolid Islt PAVEL 2 S Nitrofurantoin Islt PAVEL 32 S Tetracycline Islt PAVEL >=16 R Vancomycin Islt PAVEL 1 S Normal [facility] Comment on above: Performed By: #### L 501.9985 #### [facility] [address] [place], [address] Basic Metabolic Profile (BMP )on 08-27-2024 BUN/CRE 28.1 RATIO High 10-20 [facility] Comment on above: Order Comment: Performed By: #### L [id number] #### [facility] [address] [place], [address] CA,Total 9.1 mg/dL Normal 8.5-10.1 [facility] Comment on above: Order Comment: 206.2 Performed By: #### L [id number] #### [facility] [address] [place], [address] Chloride [Moles/Vol] 104 mmol/L Normal 98-107 [facility] Comment on above: Order Comment: 206.2 Performed By: #### L [id number] #### [facility] [address] [place], [address] CO2 [Moles/Vol] 29.0 mmol/L Normal 21.0-32.0 [facility] Comment on above: Order Comment: 206.2 Performed By: #### L 501.9985 #### [facility] [address] [place], [address] Creatinine [Mass/Vol] 1.21 mg/dL Normal 0.70-1.30 [facility] Comment on above: Order Comment: 206.2 Result Comment: The validity of the calculated GFR GFRAA in patients over 70 years has not been determined. Clinical correlation is essential. Performed By: #### L [id number] #### [facility] [address] [place], [address] EST GFR - AA 73 mL/min Normal >60 [facility] Comment on above: Order Comment: 206.2 Result Comment: Afri can [place] GFR Calc Performed By: #### L [id number] #### [facility] [address] [place], [address] GAP 5 Normal 5-15 [facility] Comment on above: Order Comment: .2 Performed By: #### L [id number] #### [facility] [address] [place], [address] GFR/1.73 sq M.predicted among non-blacks MDRD (S/P/Bld) [Vol rate/Area] 60 mL/min/{1.73_m2} Normal >60 [facility] Comment on above: Order Comment: 206.2 Result Comment: Non- GFR Calc Performed By: #### L [id number] #### [facility] [address] [place], [address] Glucose [Mass/Vol] 181 mg/dL High 74-106 [facility] Comment on above: Order Comment: 206.2 Result Comment: Fast ing Glucose result greater than or equal to 126 mg/dL suggests DIABETES MELLITUS per A.D.A. criteria. Performed By: #### L [id number] #### [facility] [address] [place], [address] Potassium [Moles/Vol] 4.6 mmol/L Normal 3.5-5.1 [facility] Comment on above: Order Comment: 206.2 Performed By: #### L [id number] #### [facility] [address] [place], [address] Sodium [Moles/Vol] 137 mmol/L Normal 136-145 [facility] Comment on above: Order Comment: 206.2 Performed By: #### L [id number] #### [facility] [address] [place], [address] Urea nitrogen [Mass/Vol] 34 mg/dL High 7-18 [facility] Comment on above: Order Comment: 206.2 Performed By: #### L [id number] #### [facility] [address] [place], [address] CBC-Complete Blood Cnt No Di ffon 08-27-2024 Erythrocyte distribution width (RBC) [Ratio] 13.2 % Normal 11.6-14.6 [facility] Comment on above: Order Comment: 206.2 Performed By: #### L [id number] #### [facility] [address] [place], [address] Hematocrit (Bld) [Volume fraction] 33.9 % Low 40-54 [facility] Comment on above: Order Comment: 206.2 Performed By: #### L [id number] #### [facility] [address] [place], [address] Hemoglobin (Bld) [Mass/Vol] 11.0 g/dL Low 13.0-16.5 [facility] Comment on above: Order Comment: 206.2 Performed By: #### L [id number] #### [facility] [address] [place], [address] MCH (RBC) [Entitic mass] 29.6 pg Normal 27.0-32.0 [facility] Comment on above: Order Comment: 206.2 Performed By: #### L [id number] #### [facility] [address] [place], [address] MCHC (RBC) [Mass/Vol] 32.4 g/dL Normal 32-36 [facility] Comment on above: Order Comment: 206.2 Performed By: #### L [id number] #### [facility] [address] [place], [address] MCV (RBC) [Entitic vol] 91.4 fL Normal 80-94 [facility] Comment on above: Order Comment: 206.2 Performed By: #### L [id number] #### [facility] [address] [place], [address] Platelet mean volume (Bld) [Entitic vol] 11.2 fL Normal 6.2-12.0 [facility] Comment on above: Order Comment: 206.2 Performed By: #### L [id number] #### [facility] [address] [place], [address] Platelets (Bld) [#/Vol] 153 10*3/uL Normal 150-450 [facility] Comment on above: Order Comment: 206.2 Performed By: #### L [id number] #### [facility] [address] [place], [address] RBC (Bld) [#/Vol] 3.71 10*6/uL Low 4.6-6.2 [facility] Comment on above: Order Comment: 206.2 Performed By: #### L [id number] #### [facility] [address] [place], [address] RDW SD 43.2 fl Normal 35.1-43.9 [facility] Comment on above: Order Comment: 206.2 Performed By: #### L [id number] #### [facility] [address] [place], [address] WBC (Bld) [#/Vol] 5.2 10*3/uL Normal 4.4-11.0 [facility] Comment on above: Order Comment: 206.2 Performed By: #### L [id number] #### [facility] [address] [place], [address] Urinalysis, Routine (Dipstic k)on 08-27-2024 BILIRUBIN URINE Negative Normal Negative [facility] Comment on above: Order Comment: 206.2 Performed By: #### L [id number] #### [facility] [address] [place], [address] Clarity (U) Sl. Cloudy Normal Clear [facility] Comment on above: Order Comment: 206.2 Performed By: #### L [id number] #### [facility] [address] [place], [address] Color (U) Yellow Normal Yellow [facility] Comment on above: Order Comment: 206.2 Performed By: #### L [id number] #### [facility] [address] [place], [address] GLUCOSE, UR 250 mg/dl Abnormal Normal [facility] Comment on above: Order Comment: 206.2 Performed By: #### L [id number] #### [facility] [address] [place], [address] KETONE UR Negative Normal Negative [facility] Comment on above: Order Comment: 206.2 Performed By: #### L [id number] #### [facility] [address] [place], [address] LEUK ESTERASE 500 /ul Abnormal Negative [facility] Comment on above: Order Comment: 206.2 Performed By: #### L [id number] #### [facility] [address] [place], [address] Nitrite Ql (U) Negative Normal Negative [facility] Comment on above: Order Comment: 206.2 Performed By: #### L [id number] #### [facility] [address] [place], [address] OCCULT BLOOD-UR 250 /ul Abnormal Negative [facility] Comment on above: Order Comment: 206.2 Performed By: #### L [id number] #### [facility] [address] [place], [address] pH UR 7.0 Normal 5.0 - 8.0 [facility] Comment on above: Order Comment: 206.2 Performed By: #### L [id number] #### [facility] [address] [place], [address] PROT DIPSTX 30 mg/dl Abnormal Negative [facility] Comment on above: Order Comment: 206.2 Performed By: #### L [id number] #### [facility] [address] [place], [address] SP.GR. DIPSTX 1.005 Normal 1.002-1.030 [facility] Comment on above: Order Comment: 206.2 Performed By: #### L [id number] #### [facility] [address] [place], [address] UROBILI Normal Normal Normal [facility] Comment on above: Order Comment: 206.2 Performed By: #### L [id number] #### [facility] [address] [place], [address] CBC-Complete Blood Cnt No Di ffon 08-06-2024 Erythrocyte distribution width (RBC) [Ratio] 13.1 % Normal 11.6-14.6 [facility] Comment on above: Order Comment: 206.2 Performed By: #### L 100.0500 #### [facility] [address] [place], [address] Hematocrit (Bld) [Volume fraction] 40.3 % Normal 40-54 [facility] Comment on above: Order Comment: 206.2 Performed By: #### L 100.0500 #### [facility] [address] [place], [address] Hemoglobin (Bld) [Mass/Vol] 13.3 g/dL Normal 13.0-16.5 [facility] Comment on above: Order Comment: 206.2 Performed By: #### L 100.0500 #### [facility] [address] [place], [address] MCH (RBC) [Entitic mass] 30.4 pg Normal 27.0-32.0 [facility] Comment on above: Order Comment: 206.2 Performed By: #### L 100.0500 #### [facility] [address] [place], [address] MCHC (RBC) [Mass/Vol] 33.0 g/dL Normal 32-36 [facility] Comment on above: Order Comment: 206.2 Performed By: #### L 100.0500 #### [facility] [address] [place], [address] MCV (RBC) [Entitic vol] 92.2 fL Normal 80-94 [facility] Comment on above: Order Comment: 206.2 Performed By: #### L 100.0500 #### [facility] [address] [place], [address] Platelet mean volume (Bld) [Entitic vol] 11.6 fL Normal 6.2-12.0 [facility] Comment on above: Order Comment: 206.2 Performed By: #### L 100.0500 #### [facility] [address] [place], [address] Platelets (Bld) [#/Vol] 161 10*3/uL Normal 150-450 [facility] Comment on above: Order Comment: 206.2 Performed By: #### L 100.0500 #### [facility] [address] [place], [address] RBC (Bld) [#/Vol] 4.37 10*6/uL Low 4.6-6.2 [facility] Comment on above: Order Comment: 206.2 Performed By: #### L 100.0500 #### [facility] [address] [place], [address] RDW SD 43.8 fl Normal 35.1-43.9 [facility] Comment on above: Order Comment: 206.2 Performed By: #### L 100.0500 #### [facility] [address] [place], [address] WBC (Bld) [#/Vol] 4.9 10*3/uL Normal 4.4-11.0 [facility] Comment on above: Order Comment: 206.2 Performed By: #### L 100.0500 #### [facility] [address] [place], [address] Urine Cultureon 08-06-2024 [facility] Mixed Gram Positive Organisms [place] Count 11,000-25,000 MIXC Mixed contaminants. Submit a new specimen if indicated. Normal [facility] Comment on above: Performed By: #### L 501.9985 #### [facility] [address] [place], [address] Basic Metabolic Profile (BMP )on 08-04-2024 BUN/CRE 26.7 RATIO High 10-20 [facility] Comment on above: Order Comment: 206.2 Performed By: #### L [id number] #### [facility] [address] [place], [address] CA,Total 9.6 mg/dL Normal 8.5-10.1 [facility] Comment on above: Order Comment: 206.2 Performed By: #### L [id number] #### [facility] [address] [place], [address] Chloride [Moles/Vol] 103 mmol/L Normal 98-107 [facility] Comment on above: Order Comment: 206.2 Performed By: #### L [id number] #### [facility] [address] [place], [address] CO2 [Moles/Vol] 29.0 mmol/L Normal 21.0-32.0 [facility] Comment on above: Order Comment: 206.2 Performed By: #### L [id number] #### [facility] [address] [place], [address] Creatinine [Mass/Vol] 1.35 mg/dL High 0.70-1.30 [facility] Comment on above: Order Comment: 206.2 Result Comment: The validity of the calculated GFR GFRAA in patients over 70 years has not been determined. Clinical correlation is essential. Performed By: #### L [id number] #### [facility] [address] [place], [address] EST GFR - AA 64 mL/min Normal >60 [facility] Comment on above: Order Comment: 206.2 Result Comment: Afri can [place] GFR Calc Performed By: #### L [id number] #### [facility] [address] [place], [address] GAP 6 Normal 5-15 [facility] Comment on above: Order Comment: 206.2 Performed By: #### L [id number] #### [facility] [address] [place], [address] GFR/1.73 sq M.predicted among non-blacks MDRD (S/P/Bld) [Vol rate/Area] 53 mL/min/{1.73_m2} Low >60 [facility] Comment on above: Order Comment: 206.2 Result Comment: Non- GFR Calc Performed By: #### L [id number] #### [facility] [address] [place], [address] Glucose [Mass/Vol] 216 mg/dL High 74-106 [facility] Comment on above: Order Comment: 206.2 Result Comment: Gluc ose result greater than or equal to 200 mg/dL suggests DIABETES MELLITUS per A.D.A. criteria. Performed By: #### L [id number] #### [facility] [address] [place], [address] Potassium [Moles/Vol] 4.4 mmol/L Normal 3.5-5.1 [facility] Comment on above: Order Comment: 206.2 Performed By: #### L [id number] #### [facility] [address] [place], [address] Sodium [Moles/Vol] 138 mmol/L Normal 136-145 [facility] Comment on above: Order Comment: 206.2 Performed By: #### L [id number] #### [facility] [address] [place], [address] Urea nitrogen [Mass/Vol] 36 mg/dL High 7-18 [facility] Comment on above: Order Comment: 206.2 Performed By: #### L [id number] #### [facility] [address] [place], [address] CBC-Complete Blood Cnt No Di ffon 08-04-2024 Erythrocyte distribution width (RBC) [Ratio] 13.1 % Normal 11.6-14.6 [facility] Comment on above: Order Comment: 206.2 Performed By: #### L [id number] #### [facility] [address] [place], [address] Hematocrit (Bld) [Volume fraction] 36.7 % Low 40-54 [facility] Comment on above: Order Comment: 206.2 Performed By: #### L [id number] #### [facility] [address] [place], [address] Hemoglobin (Bld) [Mass/Vol] 12.0 g/dL Low 13.0-16.5 [facility] Comment on above: Order Comment: 206.2 Performed By: #### L [id number] #### [facility] [address] [place], [address] MCH (RBC) [Entitic mass] 29.9 pg Normal 27.0-32.0 [facility] Comment on above: Order Comment: 206.2 Performed By: #### L [id number] #### [facility] [address] [place], [address] MCHC (RBC) [Mass/Vol] 32.7 g/dL Normal 32-36 [facility] Comment on above: Order Comment: 206.2 Performed By: #### L [id number] #### [facility] [address] [place], [address] MCV (RBC) [Entitic vol] 91.5 fL Normal 80-94 [facility] Comment on above: Order Comment: 206.2 Performed By: #### L [id number] #### [facility] [address] [place], [address] Platelet mean volume (Bld) [Entitic vol] 11.4 fL Normal 6.2-12.0 [facility] Comment on above: Order Comment: 206.2 Performed By: #### L [id number] #### [facility] [address] [place], [address] Platelets (Bld) [#/Vol] 151 10*3/uL Normal 150-450 [facility] Comment on above: Order Comment: 206.2 Performed By: #### L [id number] #### [facility] [address] [place], [address] RBC (Bld) [#/Vol] 4.01 10*6/uL Low 4.6-6.2 [facility] Comment on above: Order Comment: 206.2 Performed By: #### L [id number] #### [facility] [address] [place], [address] RDW SD 43.4 fl Normal 35.1-43.9 [facility] Comment on above: Order Comment: 206.2 Performed By: #### L [id number] #### [facility] [address] [place], [address] WBC (Bld) [#/Vol] 6.9 10*3/uL Normal 4.4-11.0 [facility] Comment on above: Order Comment: 206.2 Performed By: #### L [id number] #### [facility] [address] [place], [address] Urinalysis, Completeon 08-04 EPI,SQUAMOUS 0-5 SEEN Normal 0-5 [facility] Comment on above: Order Comment: CLEAN CATCH Performed By: #### L 400.0001, M100.2200 #### [facility] [address] [place], [address] WBC 50-100 SEEN Normal 0-5 [facility] Comment on above: Order Comment: CLEAN CATCH Performed By: #### L 400.0001, M1.2199 #### [facility] [address] [place], [address] BACTERIA 1+ /hpf Normal None Seen [facility] Comment on above: Order Comment: CLEAN CATCH Performed By: #### L 400.0001, M1.2199 #### [facility] [address] [place], [address] Mucus Ql (Urine sed) 0 SEEN Normal [facility] Comment on above: Order Comment: CLEAN CATCH Performed By: #### L 400.0001, .2199 #### [facility] [address] [place], [address] RBC 0 SEEN Normal 0-5 [facility] Comment on above: Order Comment: CLEAN CATCH Performed By: #### L 400.0001, #### [facility] [address] [place], [address] Basic Metabolic Profile (BMP )on 07-18-2024 BUN/CRE 28.8 RATIO High 10-20 [facility] Comment on above: Order Comment: 206.2 Performed By: #### L [id number] #### [facility] [address] [place], [address] CA,Total 9.7 mg/dL Normal 8.5-10.1 [facility] Comment on above: Order Comment: 206.2 Performed By: #### L [id number] #### [facility] [address] [place], [address] Chloride [Moles/Vol] 104 mmol/L Normal 98-107 [facility] Comment on above: Order Comment: 206.2 Performed By: #### L [id number] #### [facility] [address] [place], [address] CO2 [Moles/Vol] 28.0 mmol/L Normal 21.0-32.0 [facility] Comment on above: Order Comment: .2 Performed By: #### L [id number] #### [facility] [address] [place], [address] Creatinine [Mass/Vol] 1.32 mg/dL High 0.70-1.30 [facility] Comment on above: Order Comment: 206.2 Result Comment: The validity of the calculated GFR GFRAA in patients over 70 years has not been determined. Clinical correlation is essential. Performed By: #### L [id number] #### [facility] [address] [place], [address] EST GFR - AA 66 mL/min Normal >60 [facility] Comment on above: Order Comment: .2 Result Comment: Afri can [place] GFR Calc Performed By: #### L [id number] #### [facility] [address] [place], [address] GAP 7 Normal 5-15 [facility] Comment on above: Order Comment: .2 Performed By: #### L [id number] #### [facility] [address] [place], [address] GFR/1.73 sq M.predicted among non-blacks MDRD (S/P/Bld) [Vol rate/Area] 54 mL/min/{1.73_m2} Low >60 [facility] Comment on above: Order Comment: 206.2 Result Comment: Non- GFR Calc Performed By: #### L [id number] #### [facility] [address] [place], [address] Glucose [Mass/Vol] 252 mg/dL High 74-106 [facility] Comment on above: Order Comment: 206.2 Result Comment: Gluc ose result greater than or equal to 200 mg/dL suggests DIABETES MELLITUS per A.D.A. criteria. Performed By: #### L [id number] #### [facility] [address] [place], [address] Potassium [Moles/Vol] 4.2 mmol/L Normal 3.5-5.1 [facility] Comment on above: Order Comment: 206.2 Performed By: #### L [id number] #### [facility] [address] [place], [address] Sodium [Moles/Vol] 138 mmol/L Normal 136-145 [facility] Comment on above: Order Comment: 206.2 Performed By: #### L [id number] #### [facility] [address] [place], [address] Urea nitrogen [Mass/Vol] 38 mg/dL High 7-18 [facility] Comment on above: Order Comment: 206.2 Performed By: #### L [id number] #### [facility] [address] [place], [address] CBC-Complete Blood Cnt No Di ffon 07-18-2024 Erythrocyte distribution width (RBC) [Ratio] 13.0 % Normal 11.6-14.6 [facility] Comment on above: Order Comment: 206.2 Performed By: #### L 100.0500, [id number] #### [facility] [address] [place], [address] Hematocrit (Bld) [Volume fraction] 38.7 % Low 40-54 [facility] Comment on above: Order Comment: 206.2 Performed By: #### L 100.0500, [id number] #### [facility] [address] [place], [address] Hemoglobin (Bld) [Mass/Vol] 12.3 g/dL Low 13.0-16.5 [facility] Comment on above: Order Comment: 206.2 Performed By: #### L 100.0500, [id number] #### [facility] [address] [place], [address] MCH (RBC) [Entitic mass] 29.3 pg Normal 27.0-32.0 [facility] Comment on above: Order Comment: 206.2 Performed By: #### L 100.0500, [id number] #### [facility] [address] [place], [address] MCHC (RBC) [Mass/Vol] 31.8 g/dL Low 32-36 [facility] Comment on above: Order Comment: 206.2 Performed By: #### L 100.0500, [id number] #### [facility] [address] [place], [address] MCV (RBC) [Entitic vol] 92.1 fL Normal 80-94 [facility] Comment on above: Order Comment: 206.2 Performed By: #### L 100.0500, [id number] #### [facility] [address] [place], [address] Platelet mean volume (Bld) [Entitic vol] 11.9 fL Normal 6.2-12.0 [facility] Comment on above: Order Comment: 206.2 Performed By: #### L 100.0500, [id number] #### [facility] [address] [place], [address] Platelets (Bld) [#/Vol] 165 10*3/uL Normal 150-450 [facility] Comment on above: Order Comment: 206.2 Performed By: #### L 100.0500, [id number] #### [facility] [address] [place], [address] RBC (Bld) [#/Vol] 4.20 10*6/uL Low 4.6-6.2 [facility] Comment on above: Order Comment: 206.2 Performed By: #### L 100.0500, [id number] #### [facility] [address] [place], [address] RDW SD 43.7 fl Normal 35.1-43.9 [facility] Comment on above: Order Comment: 206.2 Performed By: #### L 100.0500, [id number] #### [facility] [address] [place], [address] WBC (Bld) [#/Vol] 5.4 10*3/uL Normal 4.4-11.0 [facility] Comment on above: Order Comment: 206.2 Performed By: #### L 100.0500, [id number] #### [facility] [address] [place], [address] Basophil percentageOrdered B y: Javy Lynn on 01-24-2024 Hemoglobin (Bld) [Mass/Vol] 11.6 g/dL 13.0-16.5 [facility] WBC (Bld) [#/Vol] 4.1 10*3/uL 4.4-11.0 [facility] Determination of erythrocyte mean corpuscular volume (MCV)Ordered By: Javy Lynn on 01-24-2024 MCV (RBC) [Entitic vol] 91.1 fL 80-94 [facility] Erythrocyte distribution wid th ratioOrdered By: Javy Lynn on 01-24-2024 Erythrocyte distribution width (RBC) [Ratio] 13.0 % 11.6-14.6 [facility] Erythrocyte distribution wid th standard deviationOrdered By: Javy Lynn on 01-24-2024 Erythrocyte distribution width (RBC) [Entitic vol] 43.4 fL 35.1-43.9 [facility] Hematocrit Auto (Bld) [Volum e fraction]Ordered By: Javy Lynn on 01-24-2024 Hematocrit (Bld) [Volume fraction] 36.0 % 40-54 [facility] - Hematology and Cell countsOrdered By: Javy Lynn on 01-24-2024 MCH (RBC) [Entitic mass] 29.4 pg 27.0-32.0 [facility] MCHC (RBC) [Mass/Vol] 32.2 g/dL 32-36 [facility] Platelet mean volume (Bld) [Entitic vol] 11.8 fL 6.2-12.0 [facility] Platelets (Bld) [#/Vol] 155 10*3/uL 150-450 [facility] RBC Auto (Bld) [#/Vol]Ordere d By: Javy Lynn on 01-24-2024 RBC (Bld) [#/Vol] 3.95 10*6/uL 4.6-6.2 [facility] Basophil percentageOrdered B y: Javy Lynn on 01-14-2024 Chloride [Moles/Vol] 108 mmol/L 98-107 [facility] Glucose [Mass/Vol] 114 mg/dL 74-106 [facility] Comment on above: Fasting Glucose resu lt from 100 to 125 mg/dL suggests IMPAIRED HOMEOSTASIS per A.D.A. criteria. Hemoglobin (Bld) [Mass/Vol] 12.3 g/dL 13.0-16.5 [facility] Potassium [Moles/Vol] 4.9 mmol/L 3.5-5.1 [facility] Sodium [Moles/Vol] 143 mmol/L 136-145 [facility] WBC (Bld) [#/Vol] 4.9 10*3/uL 4.4-11.0 [facility] Determination of erythrocyte mean corpuscular volume (MCV)Ordered By: Javy Lynn on 01-14-2024 MCV (RBC) [Entitic vol] 93.3 fL 80-94 [facility] Erythrocyte distribution wid th ratioOrdered By: Javy Lynn on 01-14-2024 Erythrocyte distribution width (RBC) [Ratio] 13.3 % 11.6-14.6 [facility] Erythrocyte distribution wid th standard deviationOrdered By: Javy Lynn on 01-14-2024 Erythrocyte distribution width (RBC) [Entitic vol] 45.5 fL 35.1-43.9 [facility] Hematocrit Auto (Bld) [Volum e fraction]Ordered By: Javy Lynn on 01-14-2024 Hematocrit (Bld) [Volume fraction] 39.3 % 40-54 [facility] - Chemistry and C hemistry - challengeOrdered By: Javy Lynn on 01-14-2024 CO2 [Moles/Vol] 32.0 mmol/L 21.0-32.0 [facility] Urea nitrogen/Creatinine [Mass ratio] 28.1 mg/mg 10-20 [facility] - Hematology and Cell countsOrdered By: Javy Lynn on 01-14-2024 MCH (RBC) [Entitic mass] 29.2 pg 27.0-32.0 [facility] MCHC (RBC) [Mass/Vol] 31.3 g/dL 32-36 [facility] Platelet mean volume (Bld) [Entitic vol] 12.2 fL 6.2-12.0 [facility] Platelets (Bld) [#/Vol] 131 10*3/uL 150-450 [facility] No Panel InformationOrdered By: Javy Lynn on 01-14-2024 Estimated GFR (MDRD) Amer 68 mL/min >60 [facility] Comment on above: GFR Calc Estimated GFR (MDRD) Non-Af Amer 56 mL/min >60 [facility] Comment on above: Non- GFR Calc RBC Auto (Bld) [#/Vol]Ordere d By: Javy Lynn on 01-14-2024 RBC (Bld) [#/Vol] 4.21 10*6/uL 4.6-6.2 [facility] Serum or plasma calcium saud urement (mass/volume)Ordered By: Javy Lynn on 01-14-2024 Calcium [Mass/Vol] 9.8 mg/dL 8.5-10.1 [facility] Serum or plasma creatinine m easurement (mass/volume)Ordered By: Javy Lynn on 01-14-2024 Creatinine [Mass/Vol] 1.28 mg/dL 0.70-1.30 [facility] Comment on above: The validity of the calculated GFR & GFRAA in patients over 70 years has not been determined. Clinical correlation is essential. Serum or plasma urea nitroge n measurement (mass/volume)Ordered By: Javy Lynn on 01-14-2024 Urea nitrogen [Mass/Vol] 36 mg/dL 7-18 [facility] Thin prep Papanicolaou smear with manual screeningOrdered By: Javy Lynn on 01-14-2024 Thin prep Papanicolaou smear with manual screening 3 5-15 [facility] Basophil percentageOrdered B y: Javy Lynn on 12-25-2023 Bilirubin [Mass/Vol] 0.40 mg/dL 0.20-1.00 [facility] Comment on above: For patients on eltr ombopag therapy, use of Dimension [place] TBIL is not recommended. Chloride [Moles/Vol] 107 mmol/L 98-107 [facility] Glucose [Mass/Vol] 132 mg/dL 74-106 [facility] Comment on above: Fasting Glucose resu lt greater than or equal to 126 mg/dL suggests DIABETES MELLITUS per A.D.A. criteria. Hemoglobin (Bld) [Mass/Vol] 13.2 g/dL 13.0-16.5 [facility] Potassium [Moles/Vol] 4.3 mmol/L 3.5-5.1 [facility] Protein [Mass/Vol] 7.4 g/dL 6.4-8.2 [facility] Sodium [Moles/Vol] 139 mmol/L 136-145 [facility] WBC (Bld) [#/Vol] 5.1 10*3/uL 4.4-11.0 [facility] Determination of erythrocyte mean corpuscular volume (MCV)Ordered By: Javy Lynn on 12-25-2023 MCV (RBC) [Entitic vol] 91.5 fL 80-94 [facility] Erythrocyte distribution wid th ratioOrdered By: Javy Lynn on 12-25-2023 Erythrocyte distribution width (RBC) [Ratio] 13.0 % 11.6-14.6 [facility] Erythrocyte distribution wid th standard deviationOrdered By: Javy Lynn on 12-25-2023 Erythrocyte distribution width (RBC) [Entitic vol] 43.4 fL 35.1-43.9 [facility] Hematocrit Auto (Bld) [Volum e fraction]Ordered By: Javy Lynn on 12-25-2023 Hematocrit (Bld) [Volume fraction] 40.9 % 40-54 [facility] - Chemistry and C hemistry - challengeOrdered By: Javy Lynn on 12-25-2023 Albumin/Globulin [Mass ratio] 0.9 {ratio} 0.9-2.4 [facility] ALP [Catalytic activity/Vol] 132 U/L 45-117 [facility] ALT [Catalytic activity/Vol] 32 U/L 16-61 [facility] CO2 [Moles/Vol] 28.0 mmol/L 21.0-32.0 [facility] Globulin (S) [Mass/Vol] 3.8 g/dL 2.2-4.2 [facility] Urea nitrogen/Creatinine [Mass ratio] 28.0 mg/mg 10-20 [facility] - Hematology and Cell countsOrdered By: Javy Lynn on 12-25-2023 MCH (RBC) [Entitic mass] 29.5 pg 27.0-32.0 [facility] MCHC (RBC) [Mass/Vol] 32.3 g/dL 32-36 [facility] Platelet mean volume (Bld) [Entitic vol] 12.0 fL 6.2-12.0 [facility] Platelets (Bld) [#/Vol] 193 10*3/uL 150-450 [facility] No Panel InformationOrdered By: Javy Lynn on 12-25-2023 Estimated GFR (MDRD) Amer 66 mL/min >60 [facility] Comment on above: GFR Calc Estimated GFR (MDRD) Non-Af Amer 54 mL/min >60 [facility] Comment on above: Non- GFR Calc RBC Auto (Bld) [#/Vol]Ordere d By: Javy Lynn on 12-25-2023 RBC (Bld) [#/Vol] 4.47 10*6/uL 4.6-6.2 [facility] Serum or plasma calcium saud urement (mass/volume)Ordered By: Javy Lynn on 12-25-2023 Calcium [Mass/Vol] 9.7 mg/dL 8.5-10.1 [facility] Serum or plasma creatinine m easurement (mass/volume)Ordered By: Javy Lynn on 12-25-2023 Creatinine [Mass/Vol] 1.32 mg/dL 0.70-1.30 [facility] Comment on above: The validity of the calculated GFR & GFRAA in patients over 70 years has not been determined. Clinical correlation is essential. Serum or plasma urea nitroge n measurement (mass/volume)Ordered By: Javy Lynn on 12-25-2023 Urea nitrogen [Mass/Vol] 37 mg/dL 7-18 [facility] Thin prep Papanicolaou smear with manual screeningOrdered By: Javy Lynn on 12-25-2023 Thin prep Papanicolaou smear with manual screening 3.6 g/dL 3.2-5.0 [facility] Thin prep Papanicolaou smear with manual screening 18 U/L 15-37 [facility] Thin prep Papanicolaou smear with manual screening 4 5-15 [facility] Whole blood hemoglobin A1c/t otal hemoglobin ratio (mass fraction)Ordered By: Javy Lynn on 12-24-2023 HbA1c (Bld) [Mass fraction] 6.6 % 3.8-5.6 [facility] Comment on above: Normal < 5.7 % Predi abetic 5.7 - 6.4 % Diabetic >or= 6.5 % Please note range changes. Basophil percentageOrdered B y: Javy Lynn on 12-19-2023 Bilirubin [Mass/Vol] 0.30 mg/dL 0.20-1.00 [facility] Comment on above: For patients on eltr ombopag therapy, use of Dimension [place] TBIL is not recommended. Chloride [Moles/Vol] 108 mmol/L 98-107 [facility] Glucose [Mass/Vol] 136 mg/dL 74-106 [facility] Comment on above: Fasting Glucose resu lt greater than or equal to 126 mg/dL suggests DIABETES MELLITUS per A.D.A. criteria. Hemoglobin (Bld) [Mass/Vol] 11.9 g/dL 13.0-16.5 [facility] Potassium [Moles/Vol] 4.3 mmol/L 3.5-5.1 [facility] Comment on above: Slight Hemolysis, Re sult may be falsely increased. Protein [Mass/Vol] 6.6 g/dL 6.4-8.2 [facility] Sodium [Moles/Vol] 139 mmol/L 136-145 [facility] WBC (Bld) [#/Vol] 4.4 10*3/uL 4.4-11.0 [facility] Determination of erythrocyte mean corpuscular volume (MCV)Ordered By: Javy Lynn on 12-19-2023 MCV (RBC) [Entitic vol] 91.0 fL 80-94 [facility] Erythrocyte distribution wid th ratioOrdered By: Javy Lynn on 12-19-2023 Erythrocyte distribution width (RBC) [Ratio] 12.6 % 11.6-14.6 [facility] Erythrocyte distribution wid th standard deviationOrdered By: Javy Lynn on 12-19-2023 Erythrocyte distribution width (RBC) [Entitic vol] 41.8 fL 35.1-43.9 [facility] Hematocrit Auto (Bld) [Volum e fraction]Ordered By: Javy Lynn on 12-19-2023 Hematocrit (Bld) [Volume fraction] 37.2 % 40-54 [facility] - Chemistry and C hemistry - challengeOrdered By: Javy Lynn on 12-19-2023 Albumin/Globulin [Mass ratio] 0.8 {ratio} 0.9-2.4 [facility] ALP [Catalytic activity/Vol] 109 U/L 45-117 [facility] ALT [Catalytic activity/Vol] 31 U/L 16-61 [facility] CO2 [Moles/Vol] 28.0 mmol/L 21.0-32.0 [facility] Globulin (S) [Mass/Vol] 3.6 g/dL 2.2-4.2 [facility] Urea nitrogen/Creatinine [Mass ratio] 30.2 mg/mg 10-20 [facility] - Hematology and Cell countsOrdered By: Javy Lynn on 12-19-2023 MCH (RBC) [Entitic mass] 29.1 pg 27.0-32.0 [facility] MCHC (RBC) [Mass/Vol] 32.0 g/dL 32-36 [facility] Platelet mean volume (Bld) [Entitic vol] 11.1 fL 6.2-12.0 [facility] Platelets (Bld) [#/Vol] 234 10*3/uL 150-450 [facility] No Panel InformationOrdered By: Javy Lynn on 12-19-2023 Estimated GFR (MDRD) Amer 68 mL/min >60 [facility] Comment on above: GFR Calc Estimated GFR (MDRD) Non-Af Amer 56 mL/min >60 [facility] Comment on above: Non- GFR Calc RBC Auto (Bld) [#/Vol]Ordere d By: Javy Lynn on 12-19-2023 RBC (Bld) [#/Vol] 4.09 10*6/uL 4.6-6.2 [facility] Serum or plasma calcium saud urement (mass/volume)Ordered By: Javy Lynn on 12-19-2023 Calcium [Mass/Vol] 9.6 mg/dL 8.5-10.1 [facility] Serum or plasma creatinine m easurement (mass/volume)Ordered By: Javy Lynn on 12-19-2023 Creatinine [Mass/Vol] 1.29 mg/dL 0.70-1.30 [facility] Comment on above: The validity of the calculated GFR & GFRAA in patients over 70 years has not been determined. Clinical correlation is essential. Serum or plasma urea nitroge n measurement (mass/volume)Ordered By: Javy Lynn on 12-19-2023 Urea nitrogen [Mass/Vol] 39 mg/dL 7-18 [facility] Thin prep Papanicolaou smear with manual screeningOrdered By: Javy Lynn on 12-19-2023 Thin prep Papanicolaou smear with manual screening 3.0 g/dL 3.2-5.0 [facility] Thin prep Papanicolaou smear with manual screening 25 U/L 15-37 [facility] Comment on above: Slight Hemolysis, Re sult may be falsely increased. Thin prep Papanicolaou smear with manual screening 3 5-15 [facility] - Chemistry and C hemistry - challengeon 12-12-2023 Glucose [Mass/Vol] 174 mg/dL High 70 - 100 mg/dL [facility] Glucose [Mass/Vol] 101 mg/dL High 70 - 100 mg/dL [facility] Laboratory - Microbiology an d Antimicrobial susceptibilityOrdered By: Tatyana Cedillo on 12-12-2023 SARS-CoV-2 (COVID-19) Ag IA.rapid Ql (Resp) Negative Negative [facility] Comment on above: A negative result do es not rule out the possibility of SARS-CoV-2 infection. NAAT-based methods should be considered for symptomatic patients presenting greater than seven days after onset of symptoms. Method: Lateral flow immunoassay. Fact sheets for healthcare providers and patients can be found at the following sites: https://www.Kidblog.gov/media/652510/download https://www.Kidblog.gov/media/279087/download No Panel Informationon 12-12 Interpretation and review of laboratory results Abnormal [facility] Performed by: [facility], [address] [place] [address] CLIA ID: [id number] [facility] Interpretation and review of laboratory results Abnormal [facility] Performed by: [facility], [address] [place] [address] CLIA ID: [id number] [facility] Radiology Study observation (narrative) [facility] Radiology Study observation (narrative) [facility] SARS-CoV-2 (COVID-19) Ag IA. rapid Ql (Resp)Ordered By: Tatyana Cedillo on 12-12-2023 Interpretation and review of laboratory results Normal [facility] Bacteria identified Cx Nom ( Bld)on 12-11-2023 Interpretation and review of laboratory results Normal [facility] Blood Collection Site: Left Arm [facility] Blood Collection Site: Left Forearm [facility] CBC panel Auto (Bld)Ordered By: Osman Cadena on 12-11-2023 Erythrocyte distribution width (RBC) [Ratio] 13.7 % 11.5 - 14.5 % [facility] Hematocrit (Bld) [Volume fraction] 36.0 % Low 40.0 - 52.0 % [facility] Hemoglobin (Bld) [Mass/Vol] 12.1 g/dL Low 13.0 - 18.0 g/dL [facility] Interpretation and review of laboratory results Abnormal [facility] MCH (RBC) [Entitic mass] 29.8 pg 26. 0 - 34.0 pg [facility] MCHC (RBC) [Mass/Vol] 33.7 % 32.0 - 36.0 % [facility] MCV (RBC) [Entitic vol] 88.2 fL 80.0 - 98.0 fL [facility] Platelet mean volume (Bld) [Entitic vol] 8.4 fL 7.4 - 12.4 fL [facility] Platelets (Bld) [#/Vol] 204 10*3/uL 140 - 440 10*3/uL [facility] RBC (Bld) [#/Vol] 4.08 10*6/uL Low 4.40 - 5.9 0 10*6/uL [facility] WBC (Bld) [#/Vol] 4.6 10*3/uL 3.6 - 10.7 10*3/uL [facility] Comprehensive metabolic 1998 panelon 12-11-2023 Albumin [Mass/Vol] 3.6 g/dL 3.5 - 5.0 g/dL [facility] ALP [Catalytic activity/Vol] 104 U/L 38 - 126 U/L [facility] ALT [Catalytic activity/Vol] 24 U/L 0 - 49 U/L [facility] Anion gap [Moles/Vol] 9 mmol/L 3 - 13 mmol/L [facility] AST [Catalytic activity/Vol] 27 U/L 15 - 46 U/L [facility] Bilirubin [Mass/Vol] 0.3 mg/dL 0.2 - 1 .3 mg/dL [facility] Calcium [Mass/Vol] 9.5 mg/dL 8.4 - 10. 4 mg/dL [facility] Chloride [Moles/Vol] 105 mmol/L 98 - 10 7 mmol/L [facility] CO2 [Moles/Vol] 23 mmol/L 22 - 30 mmol/L [facility] Creatinine [Mass/Vol] 1.02 mg/dL 0.66 - 1.25 mg/dL [facility] GFR/1.73 sq M.predicted MDRD (S/P/Bld) [Vol rate/Area] 70.7 mL/min/{1.73_m2} - PINF [facility] Comment on above: Calculation based on the Chronic Kidney Disease Epidemiology Collaboration (CKD-EPI) equation refit without adjustment for race Glucose [Mass/Vol] 117 mg/dL High 70 - 100 mg/dL [facility] Interpretation and review of laboratory results Abnormal [facility] Potassium [Moles/Vol] 3.6 mmol/L 3.5 - 5.1 mmol/L [facility] Protein [Mass/Vol] 6.9 g/dL 6.3 - 8.2 g/dL [facility] Sodium [Moles/Vol] 137 mmol/L 135 - 145 mmol/L [facility] Urea nitrogen [Mass/Vol] 18 mg/dL 9 - 20 mg/d L [facility] Laboratory - Chemistry and C hemistry - challengeon 12-11-2023 Glucose [Mass/Vol] 214 mg/dL High 70 - 100 mg/dL [facility] Glucose [Mass/Vol] 123 mg/dL High 70 - 100 mg/dL [facility] Glucose [Mass/Vol] 137 mg/dL High 70 - 100 mg/dL [facility] Glucose [Mass/Vol] 226 mg/dL High 70 - 100 mg/dL [facility] Laboratory - Microbiology an d Antimicrobial susceptibilityon 12-11-2023 Bacteria identified Cx Nom (Bld) No growth at 5 days [facility] No Panel Informationon 12-11 Interpretation and review of laboratory results Abnormal [facility] Performed by: [facility], [address] [place] [address] CLIA ID: [id number] [facility] Interpretation and review of laboratory results Abnormal [facility] Performed by: [facility], [address] [place] [address] CLIA ID: [id number] [facility] Interpretation and review of laboratory results Abnormal [facility] Performed by: [facility], [address] [place] [id number] CLIA ID: [id number] [facility] Interpretation and review of laboratory results Abnormal [facility] Performed by: [facility], [address] [place] [address] CLIA ID: [id number] [facility] Radiology Study observation (narrative) [facility] Rad[facility] Study observation (narrative) [facility] Rad[facility] Study observation (narrative) [facility] Rad[facility] Study observation (narrative) [facility] CBC panel Auto (Bld)Ordered By: Davina Ramos on 12-10-2023 Erythrocyte distribution width (RBC) [Ratio] 13.7 % 11.5 - 14.5 % [facility] Hematocrit (Bld) [Volume fraction] 34.7 % Low 40.0 - 52.0 % [facility] Hemoglobin (Bld) [Mass/Vol] 11.8 g/dL Low 13.0 - 18.0 g/dL [facility] Interpretation and review of laboratory results Abnormal [facility] MCH (RBC) [Entitic mass] 30.0 pg 26. 0 - 34.0 pg [facility] MCHC (RBC) [Mass/Vol] 33.9 % 32.0 - 36.0 % [facility] MCV (RBC) [Entitic vol] 88.3 fL 80.0 - 98.0 fL [facility] Platelet mean volume (Bld) [Entitic vol] 8.8 fL 7.4 - 12.4 fL [facility] Platelets (Bld) [#/Vol] 185 10*3/uL 140 - 440 10*3/uL [facility] RBC (Bld) [#/Vol] 3.93 10*6/uL Low 4.40 - 5.9 0 10*6/uL [facility] WBC (Bld) [#/Vol] 4.3 10*3/uL 3.6 - 10.7 10*3/uL [facility] Comprehensive metabolic 1998 panelon 12-10-2023 Albumin [Mass/Vol] 3.5 g/dL 3.5 - 5.0 g/dL [facility] ALP [Catalytic activity/Vol] 93 U/L 38 - 126 U/L [facility] ALT [Catalytic activity/Vol] 24 U/L 0 - 49 U/L [facility] Anion gap [Moles/Vol] 8 mmol/L 3 - 13 mmol/L [facility] AST [Catalytic activity/Vol] 24 U/L 15 - 46 U/L [facility] Bilirubin [Mass/Vol] 0.2 mg/dL 0.2 - 1 .3 mg/dL [facility] Calcium [Mass/Vol] 9.3 mg/dL 8.4 - 10. 4 mg/dL [facility] Chloride [Moles/Vol] 104 mmol/L 98 - 10 7 mmol/L [facility] CO2 [Moles/Vol] 25 mmol/L 22 - 30 mmol/L [facility] Creatinine [Mass/Vol] 0.99 mg/dL 0.66 - 1.25 mg/dL [facility] GFR/1.73 sq M.predicted MDRD (S/P/Bld) [Vol rate/Area] 73.3 mL/min/{1.73_m2} - PINF [facility] Comment on above: Calculation based on the Chronic Kidney Disease Epidemiology Collaboration (CKD-EPI) equation refit without adjustment for race Glucose [Mass/Vol] 124 mg/dL High 70 - 100 mg/dL [facility] Interpretation and review of laboratory results Abnormal [facility] Potassium [Moles/Vol] 3.6 mmol/L 3.5 - 5.1 mmol/L [facility] Protein [Mass/Vol] 6.8 g/dL 6.3 - 8.2 g/dL [facility] Sodium [Moles/Vol] 137 mmol/L 135 - 145 mmol/L [facility] Urea nitrogen [Mass/Vol] 19 mg/dL 9 - 20 mg/d L [facility] Laboratory - Chemistry and C hemistry - challengeon 12-10-2023 Glucose [Mass/Vol] 142 mg/dL High 70 - 100 mg/dL [facility] Glucose [Mass/Vol] 112 mg/dL High 70 - 100 mg/dL [facility] Glucose [Mass/Vol] 223 mg/dL High 70 - 100 mg/dL [facility] Glucose [Mass/Vol] 136 mg/dL High 70 - 100 mg/dL [facility] Glucose [Mass/Vol] 141 mg/dL High 70 - 100 mg/dL [facility] No Panel Informationon 12-10 Interpretation and review of laboratory results Abnormal [facility]formed [facility]: [facility], [address] [place] [address] CLIA ID: [id number] [facility] Interpretation and review of laboratory results Abnormal [facility]formed by: [facility], [address] [place] [address] CLIA ID: [id number] [facility] Interpretation and review of laboratory results Abnormal [facility] Performed by: [facility], [address] [place] [address] CLIA ID: [id number] [facility] Interpretation and review of laboratory results Abnormal [facility] Performed by: [facility], [address] [place] [address] CLIA ID: [id number] [facility] Interpretation and review of laboratory results Abnormal [facility] Performed by: [facility], [address] [place] [address] CLIA ID: [id number] [facility] Radiology Study observation (narrative) [facility] Rad[facility] Study observation (narrative) [facility] Radiology Study observation (narrative) [facility] Rad[facility] Study observation (narrative) [facility] CBC panel Auto (Bld)on 12-09 Erythrocyte distribution width (RBC) [Ratio] 13.9 % 11.5 - 14.5 % [facility] Hematocrit (Bld) [Volume fraction] 35.3 % Low 40.0 - 52.0 % [facility] Hemoglobin (Bld) [Mass/Vol] 11.8 g/dL Low 13.0 - 18.0 g/dL [facility] Interpretation and review of laboratory results Abnormal [facility] MCH (RBC) [Entitic mass] 29.8 pg 26. 0 - 34.0 pg [facility] MCHC (RBC) [Mass/Vol] 33.4 % 32.0 - 36.0 % [facility] MCV (RBC) [Entitic vol] 89.0 fL 80.0 - 98.0 fL [facility] Platelet mean volume (Bld) [Entitic vol] 8.4 fL 7.4 - 12.4 fL [facility] Platelets (Bld) [#/Vol] 166 10*3/uL 140 - 440 10*3/uL [facility] RBC (Bld) [#/Vol] 3.97 10*6/uL Low 4.40 - 5.9 0 10*6/uL [facility] WBC (Bld) [#/Vol] 4.3 10*3/uL 3.6 - 10.7 10*3/uL [facility] Comprehensive metabolic 1998 panelon 12-09-2023 Albumin [Mass/Vol] 3.4 g/dL Low 3.5 - 5.0 g/dL [facility] ALP [Catalytic activity/Vol] 90 U/L 38 - 126 U/L [facility] ALT [Catalytic activity/Vol] 22 U/L 0 - 49 U/L [facility] Anion gap [Moles/Vol] 8 mmol/L 3 - 13 mmol/L [facility] AST [Catalytic activity/Vol] 27 U/L 15 - 46 U/L [facility] Bilirubin [Mass/Vol] 0.3 mg/dL 0.2 - 1 .3 mg/dL [facility] Calcium [Mass/Vol] 9.1 mg/dL 8.4 - 10. 4 mg/dL [facility] Chloride [Moles/Vol] 108 mmol/L High 98 - 10 7 mmol/L [facility] CO2 [Moles/Vol] 26 mmol/L 22 - 30 mmol/L [facility] Creatinine [Mass/Vol] 1.01 mg/dL 0.66 - 1.25 mg/dL [facility] GFR/1.73 sq M.predicted MDRD (S/P/Bld) [Vol rate/Area] 71.5 mL/min/{1.73_m2} - PINF [facility] Comment on above: Calculation based on the Chronic Kidney Disease Epidemiology Collaboration (CKD-EPI) equation refit without adjustment for race Glucose [Mass/Vol] 42 mg/dL Critically low 70 - 10 0 mg/dL [facility] Interpretation and review of laboratory results Abnormal [facility] Potassium [Moles/Vol] 3.3 mmol/L Low 3.5 - 5.1 mmol/L [facility] Protein [Mass/Vol] 6.4 g/dL 6.3 - 8.2 g/dL [facility] Sodium [Moles/Vol] 141 mmol/L 135 - 145 mmol/L [facility] Urea nitrogen [Mass/Vol] 22 mg/dL High 9 - 20 mg/d L [facility] Laboratory - Chemistry and C hemistry - challengeon 12-09-2023 Glucose [Mass/Vol] 137 mg/dL High 70 - 100 mg/dL [facility] Procalcitonin [Mass/Vol] 3.53 ng/mL High 0.0 0 - 0.09 ng/mL [facility] Glucose [Mass/Vol] 111 mg/dL High 70 - 100 mg/dL [facility] Glucose [Mass/Vol] 173 mg/dL High 70 - 100 mg/dL [facility] Glucose [Mass/Vol] 449 mg/dL High 70 - 100 mg/dL [facility] Glucose [Mass/Vol] 101 mg/dL High 70 - 100 mg/dL [facility] Glucose [Mass/Vol] 60 mg/dL Low 70 - 100 mg/dL [facility] Magnesium [Mass/Vol] 1.9 mg/dL 1.6 - 2 .3 mg/dL [facility] Glucose [Mass/Vol] mg/dL Low 70 - 100 mg/dL [facility] Comment on above: Repeated Test; Magnesium [Mass/Vol]on 12-09 Interpretation and review of laboratory results Normal [facility] No Panel Informationon 12-09 Interpretation and review of laboratory results Abnormal [facility]formed by: [facility], [address] [facility] [address] CLIA ID: [id number] [facility] Interpretation and review of laboratory results Abnormal [facility] Performed by: [facility], [address] [facility] [address] CLIA ID: [id number] [facility] Interpretation and review of laboratory results Abnormal [facility] Performed by: [facility], [address] [facility] [address] CLIA ID: [id number] [facility] Interpretation and review of laboratory results Abnormal [facility] Performed by: [facility], [address] [facility] [address] CLIA ID: [id number] [facility] Interpretation and review of laboratory results Abnormal [facility] Performed by: [facility], [address] [facility] [address] CLIA ID: [id number] [facility] Interpretation and review of laboratory results Abnormal [facility] Performed by: [facility], [address] [facility] [address] CLIA ID: [id number] [facility] Interpretation and review of laboratory results Abnormal [facility] Performed by: [facility], [address] [facility] [address] CLIA ID: [id number] [facility] Radiology Study observation (narrative) [facility] Procalcitonin [Mass/Vol]on 0 12-09-2023 Interpretation and review of laboratory results Abnormal [facility] PCT <0.50 = Low risk of severe sepsis and/or septic shock. PCT >2.00 = High risk of severe sepsis and/or septic shock. [facility] CBC panel Auto (Bld)Ordered By: Waylon Fajardo on 12-08-2023 Erythrocyte distribution width (RBC) [Ratio] 13.9 % 11.5 - 14.5 % [facility] Hematocrit (Bld) [Volume fraction] 35.0 % Low 40.0 - 52.0 % [facility] Hemoglobin (Bld) [Mass/Vol] 11.7 g/dL Low 13.0 - 18.0 g/dL [facility] Interpretation and review of laboratory results Abnormal [facility] MCH (RBC) [Entitic mass] 30.0 pg 26. 0 - 34.0 pg [facility] MCHC (RBC) [Mass/Vol] 33.4 % 32.0 - 36.0 % [facility] MCV (RBC) [Entitic vol] 90.0 fL 80.0 - 98.0 fL [facility] Platelet mean volume (Bld) [Entitic vol] 8.9 fL 7.4 - 12.4 fL [facility] Platelets (Bld) [#/Vol] 146 10*3/uL 140 - 440 10*3/uL [facility] RBC (Bld) [#/Vol] 3.89 10*6/uL Low 4.40 - 5.9 0 10*6/uL [facility] WBC (Bld) [#/Vol] 6.0 10*3/uL 3.6 - 10.7 10*3/uL [facility] Comprehensive metabolic 1998 panelon 12-08-2023 Albumin [Mass/Vol] 3.4 g/dL Low 3.5 - 5.0 g/dL [facility] ALP [Catalytic activity/Vol] 92 U/L 38 - 126 U/L [facility] ALT [Catalytic activity/Vol] 23 U/L 0 - 49 U/L [facility] Anion gap [Moles/Vol] 4 mmol/L 3 - 13 mmol/L [facility] AST [Catalytic activity/Vol] 34 U/L 15 - 46 U/L [facility] Bilirubin [Mass/Vol] 0.6 mg/dL 0.2 - 1 .3 mg/dL [facility] Calcium [Mass/Vol] 9.2 mg/dL 8.4 - 10. 4 mg/dL [facility] Chloride [Moles/Vol] 105 mmol/L 98 - 10 7 mmol/L [facility] CO2 [Moles/Vol] 28 mmol/L 22 - 30 mmol/L [facility] Creatinine [Mass/Vol] 1.29 mg/dL High 0.66 - 1.25 mg/dL [facility] GFR/1.73 sq M.predicted MDRD (S/P/Bld) [Vol rate/Area] 53.3 mL/min/{1.73_m2} Low - PINF [facility] Comment on above: Calculation based on the Chronic Kidney Disease Epidemiology Collaboration (CKD-EPI) equation refit without adjustment for race Glucose [Mass/Vol] 143 mg/dL High 70 - 100 mg/dL [facility] Interpretation and review of laboratory results Abnormal [facility] Potassium [Moles/Vol] 3.9 mmol/L 3.5 - 5.1 mmol/L [facility] Protein [Mass/Vol] 6.5 g/dL 6.3 - 8.2 g/dL [facility] Sodium [Moles/Vol] 138 mmol/L 135 - 145 mmol/L [facility] Urea nitrogen [Mass/Vol] 35 mg/dL High 9 - 20 mg/d L [facility] Laboratory - Chemistry and C hemistry - challengeon 12-08-2023 Glucose [Mass/Vol] 138 mg/dL High 70 - 100 mg/dL [facility] Glucose [Mass/Vol] 141 mg/dL High 70 - 100 mg/dL [facility] Glucose [Mass/Vol] 222 mg/dL High 70 - 100 mg/dL [facility] Glucose [Mass/Vol] 136 mg/dL High 70 - 100 mg/dL [facility] Glucose [Mass/Vol] 122 mg/dL High 70 - 100 mg/dL [facility] Laboratory - Drug toxicology on 12-08-2023 Vancomycin [Mass/Vol] 11.3 ug/mL Low 15.0 - 20.0 ug/mL [facility] MRSA DNA LISANDRO+probe Ql (Nose) on 12-08-2023 Interpretation and review of laboratory results Normal [facility] mecA gene Not detected Not Detected [facility] th Staphylococcus aureus Not detected Not Detected [facility] No Staphylococcus aureus detected. Negative nasal MRSA PCR has a high negative predictive value for MRSA pneumonia. Consider stopping Vancomycin if no other clinical indication. Contact Antimicrobial Stewardship for further recommendations. Staphylococcus aureus nasal screen by real-time PCR. This test was modified and its performance characteristics determined by [facility]. The U. S. Food and Drug Administration has not approved or cleared this test; however, FDA clearance or approval is not currently required for clinical use. The results are not intended to be used as the sole means for clinical diagnosis or patient management decisions. [facility] No Panel Informationon 12-08 Interpretation and review of laboratory results Abnormal [facility] Performed by: [facility], [address] [address], [facility] [address] CLIA ID: [id number] [facility] Interpretation and review of laboratory results Abnormal [facility] Performed by: [facility], [address] [facility], [facility] [address] CLIA ID: [id number] [facility] Interpretation and review of laboratory results Abnormal [facility] Performed by: [facility], [address] [facility], [facility] [address] CLIA ID: [id number] [facility] Interpretation and review of laboratory results Abnormal [facility] Performed by: [facility], [address] [facility], [facility] [address] CLIA ID: [id number] [facility] Interpretation and review of laboratory results Abnormal [facility] Performed by: [facility], [address] [place] [address], [facility] [address] CLIA ID: [id number] [facility] Interpretation and review of laboratory results Abnormal [facility] Radiology Study observation (narrative) [facility] Rad[facility]arrative[facility] (narrative) [facility] Radiology Study observation (narrative) [facility] (narrative) [facility] Laboratory - Chemistry and C hemistry - challengeon 12-07-2023 Glucose [Mass/Vol] 143 mg/dL High 70 - 100 mg/dL [facility] Glucose [Mass/Vol] 93 mg/dL 70 - 100 mg/dL [facility] Procalcitonin [Mass/Vol] 7.13 ng/mL High 0.0 0 - 0.09 ng/mL [facility] Glucose [Mass/Vol] 158 mg/dL High 70 - 100 mg/dL [facility] Glucose [Mass/Vol] 108 mg/dL High 70 - 100 mg/dL [facility] Average glucose Estimated from glycated hemoglobin (Bld) [Mass/Vol] 128 mg/dL [facility] Troponin I.cardiac [Mass/Vol] 0.070 ng/mL High [facility] - 0.034 ng/mL [facility] Laboratory - Hematology and Cell countson 12-07-2023 HbA1c (Bld) [Mass fraction] 6.1 % High [facility] - 5.7 % [facility] Comment on above: Normal less than 5.7 % Prediabetes 5.7% to 6.4% Diabetes 6.5% or higher --HgbA1C levels may not be accurate in patients who have renal disease, received recent blood transfusions, are anemic, or who have dyshemoglobinemia. No Panel Informationon 12-07 Interpretation and review of laboratory results Abnormal [facility] Performed by: [facility], [address] [place] [id number] CLIA ID: [id number] [facility] Interpretation and review of laboratory results Normal [facility] Performed by: [facility], [address] [place] [address] CLIA ID: [id number] [facility] Interpretation and review of laboratory results Abnormal [facility] Performed by: [facility], [address] [place] [address] CLIA ID: [id number] [facility] Interpretation and review of laboratory results Abnormal [facility] Performed by: [facility], [address] [place] [address] CLIA ID: [id number] [facility] Sinus rhythm Compared to ECG 09/10/23 Grossly unchanged Electronically Signed On 12-07-2023 06:37:55 EST by Thanh Howard, - 12/07/2023 IMPRESSION: Sinus rhythm Compared to ECG 09/10/23 Grossly unchanged Electronically Signed On 12-07-2023 06:37:55 EST by Thanh Polanco [facility] Interpretation and review of laboratory results Abnormal [facility] Radiology Study observation (narrative) [facility] Rad[facility] Study observation (narrative) [facility] Rad[facility] Study observation (narrative) [facility] Study observation (narrative) [facility] No Panel InformationOrdered By: Melissa Bui on 12-07-2023 Interpretation and review of laboratory results Abnormal [facility] Legionella pneumophila Ag Not detected Not Detected [facility] Streptococcus pneumoniae Ag Detected Abnormal Not Detected [facility] Methodology: Lateral flow enzyme immunoassay This assay is approved for detection of antigens to Streptococcus pneumoniae and Legionella pneumophila serogroup 1; however, other L. pneumophila serogroups may also be detected. [facility] [employer] [facility] No Panel InformationOrdered By: Thanh Polanco on 12-07-2023 P [place] 54 degrees [employer] Work Phone: MS Interval 169 ms [employer] Work Phone: QRS [place] 60 degrees [employer] Work Phone: QRSD Interval 74 ms [employer] Work Phone: QT Interval 334 ms [employer] Work Phone: QTC Interval 420 ms [employer] Work Phone: T Wave [place] 23 degrees [employer] Work Phone: [employer] Work Phone: Procalcitonin [Mass/Vol]on 0 12-07-2023 Interpretation and review of laboratory results Abnormal [facility] PCT <0.50 = Low risk of severe sepsis and/or septic shock. PCT >2.00 = High risk of severe sepsis and/or septic shock. [facility] Troponin I.cardiac [Mass/Vol ]on 12-07-2023 Interpretation and review of laboratory results Abnormal [facility] Patients with high levels of Biotin oral intake (ie >5 mg/day) may have falsely decreased Troponin levels. [facility] Urinalysis complete panel (U )Ordered By: Corina Hoffman on 12-07-2023 Bacteria LM.HPF (Urine sed) [#/Area] Negative Negative /HPF [facility] Bilirubin Ql (U) Negative Negative mg/dL [facility] Clarity (U) Clear Clear [facility] Color (U) Light Yellow Lt. Yellow [facility] Epithelial cells.squamous LM.HPF (Urine sed) [#/Area] Negative [facility] Glucose Ql (U) Normal Normal (<70) mg/dL [facility] Hemoglobin Ql (U) 0.03 mg/dL Abnormal Negative [facility] Interpretation and review of laboratory results Abnormal [facility] Ketones (U) [Mass/Vol] Negative Negat kate mg/dL [facility] Leukocyte esterase Test strip Ql (U) Negative Negative Rosales/uL [facility] Nitrite Ql (U) Negative Negative [facility] th pH (U) 6.0 [pH] 5.0 - 8.0 pH [facility] Protein (U) [Mass/Vol] 30 mg/dL Abnormal Negative [facility] RBC LM.HPF (Urine sed) [#/Area] 0-2 [facility] Specific gravity (U) [Rel density] 1.025 1.005 - 1.030 [facility] Urobilinogen (U) [Mass/Vol] Normal Normal (0-1) mg/dL [facility] WBC LM.HPF (Urine sed) [#/Area] 0-2 [facility] Vital signsOrdered By: Leticia Polanco on 12-07-2023 Heart rate 95 /min bpm [facility] Work Phone: CBC W Auto Differential pane l (Bld)Ordered By: Brianna Stokes on 12-06-2023 Basophils (Bld) [#/Vol] 0.0 10*3/uL 0.0 - 0.2 10*3/uL [facility] Basophils/100 WBC (Bld) 0.1 % 0.0 - 2.0 % [facility] Eosinophils (Bld) [#/Vol] 0.0 10*3/uL 0.0 - 0.5 10*3/uL [facility] Eosinophils/100 WBC (Bld) 0.1 % Low 1.0 - 6.0 % [facility] Erythrocyte distribution width (RBC) [Ratio] 14.0 % 11.5 - 14.5 % [facility] Hematocrit (Bld) [Volume fraction] 36.4 % Low 40.0 - 52.0 % [facility] Hemoglobin (Bld) [Mass/Vol] 12.6 g/dL Low 13.0 - 18.0 g/dL [facility] Interpretation and review of laboratory results Abnormal [facility] Lymphocytes (Bld) [#/Vol] 0.5 10*3/uL Low 1.0 - 4.3 10*3/uL [facility] Lymphocytes/100 WBC (Bld) 5.8 % Low 20.0 - 40.0 % [facility] MCH (RBC) [Entitic mass] 30.6 pg 26. 0 - 34.0 pg [facility] MCHC (RBC) [Mass/Vol] 34.6 % 32.0 - 36.0 % [facility] MCV (RBC) [Entitic vol] 88.5 fL 80.0 - 98.0 fL [facility] Monocytes (Bld) [#/Vol] 0.6 10*3/uL 0.0 - 0.8 10*3/uL [facility] Monocytes/100 WBC (Bld) 7.3 % 2.0 - 10.0 % [facility] Neutrophils (Bld) [#/Vol] 7.3 10*3/uL High 1.8 - 7.0 10*3/uL [facility] Neutrophils/100 WBC (Bld) 86.7 % High 40.0 - 80.0 % [facility] Nucleated RBC/100 WBC (Bld) [Ratio] 0.0 % [facility] Platelet mean volume (Bld) [Entitic vol] 8.9 fL 7.4 - 12.4 fL [facility] Platelets (Bld) [#/Vol] 144 10*3/uL 140 - 440 10*3/uL [facility] RBC (Bld) [#/Vol] 4.11 10*6/uL Low 4.40 - 5.9 0 10*6/uL [facility] WBC (Bld) [#/Vol] 8.4 10*3/uL 3.6 - 10.7 10*3/uL [facility] CTA Chest vessels WO and W c ontrast Jaylen 12-06-2023 1. No evidence of large vessel or central pulmonary emboli. 2. Mucous plugging and patchy atelectasis, infiltrates or postinflammatory change in the bilateral lower lobes, right greater than left, of uncertain chronicity. Correlate clinically. 3. Wedge-shaped compression deformities in mid thoracic vertebral bodies may represent insufficiency change, but age-indeterminate. Report Dictated on Electronically Signed By: Mark Murrell MD Electronically Signed Date/Time: 12/06/2023 6:26 PM [facility] [employer] RADIOLOGY SYSTEM Patient Name: TITA KEITH : 1935 Exam Date/Time: 12/06/2023 17:45 Procedure: CT CHEST ANGIOGRAM W AND/OR WO IV CONTRAST Ordering Provider: [facility], , [facility] Reason For Exam: Pulmonary embolism (PE) suspected, unknown D-dimer CTA CHEST WITH IV CONTRAST CLINICAL INDICATION: Pulmonary embolism (PE) suspected, unknown D-dimer. TECHNIQUE: CTA of the chest with IV contrast. Multiplanar reformations. 3-D image post-processing was performed on an independent workstation. Dose reduction was employed with automated exposure control. COMPARISON: None. FINDINGS: Motion artifact limits examination. The main and bilateral proximal pulmonary arteries are normally opacified without apparent filling defects. Cardiac size within normal limits. Coronary artery calcifications. No apparent aneurysm, pseudoaneurysm or aortic dissection. No significant lymph node enlargement or axillary adenopathy. Lungs show mucous plugging in bilateral lower lobe bronchial airways, right greater than left. Patchy and partially confluent opacities also in the bilateral lower lobes, right greater than left. No discrete mass, pleural effusion or apparent pneumothorax. Visualized upper abdomen without acute abnormality. 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 Marked wedge-shaped compression deformity in T7 level and less severe, moderate wedge-shaped compression in T8 level. Degenerative change scattered in thoracic spine. [facility] RADIOLOGY SYSTEM Mark Murrell MD - 12/06/2023 [facility] Name: [facility]ITA [facility]ITH : 1935 [id number] Exam Date/Time: 12/06/2023 17:45 Procedure: CT CHEST ANGIOGRAM W AND/OR WO IV CONTRAST Ordering Provider: [facility], [facility] Reason For Exam: Pulmonary embolism (PE) suspected, unknown D-dimer CTA CHEST WITH IV CONTRAST CLINICAL INDICATION: Pulmonary embolism (PE) suspected, unknown D-dimer. TECHNIQUE: CTA of the chest with IV contrast. Multiplan[employer] reformations. 3-D image post-processing was performed on an independent workstation. Dose reduction was employed with automated exposure control. COMPARISON: None. FINDINGS: Motion artifact limits examination. The main and bilateral proximal pulmonary arteries are normally opacified without apparent filling defects. Cardiac size within normal limits. Coronary artery calcifications. No apparent aneurysm, pseudoaneurysm or aortic dissection. No significant lymph node enlargement or axillary adenopathy. Lungs show mucous plugging in bilateral lower lobe bronchial airways, right greater than left. Patchy and partially confluent opacities also in the bilateral lower lobes, right greater than left. No discrete mass, pleural effusion or apparent pneumothorax. Visualized upper abdomen without acute abnormality. 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 Marked wedge-shaped compression deformity in T7 level and less severe, moderate wedge-shaped compression in T8 level. Degenerative change scattered in thoracic spine. IMPRESSION: 1. No evidence of large vessel or central pulmonary emboli. 2. Mucous plugging and patchy atelectasis, infiltrates or postinflammatory change in the bilateral lower lobes, right greater than left, of uncertain chronicity. Correlate clinically. 3. Wedge-shaped compression deformities in mid thoracic vertebral bodies may represent insufficiency change, but age-indeterminate. Report Dictated on Electronically Signed By: Mark Murrell MD Electronically Signed Date/Time: 12/06/2023 6:26 PM EST [facility] Radiology Study observation (narrative) [facility]th CTA Chest vessels WO and W c ontrast IVOrdered By: Mark Murrell on 12-06-2023 [facility] [employer] Work Phone: Comprehensive metabolic 1998 panelon 12-06-2023 Albumin [Mass/Vol] 3.8 g/dL 3.5 - 5.0 g/dL [facility] ALP [Catalytic activity/Vol] 99 U/L 38 - 126 U/L [facility] ALT [Catalytic activity/Vol] 28 U/L 0 - 49 U/L [facility] Anion gap [Moles/Vol] 10 mmol/L 3 - 13 mmol/L [facility] AST [Catalytic activity/Vol] 29 U/L 15 - 46 U/L [facility] Bilirubin [Mass/Vol] 0.7 mg/dL 0.2 - 1 .3 mg/dL [facility] Calcium [Mass/Vol] 9.4 mg/dL 8.4 - 10. 4 mg/dL [facility] Chloride [Moles/Vol] 101 mmol/L 98 - 10 7 mmol/L [facility] CO2 [Moles/Vol] 25 mmol/L 22 - 30 mmol/L [facility] Creatinine [Mass/Vol] 1.35 mg/dL High 0.66 - 1.25 mg/dL [facility] GFR/1.73 sq M.predicted MDRD (S/P/Bld) [Vol rate/Area] 50.5 mL/min/{1.73_m2} Low - PINF [facility] Comment on above: Calculation based on the Chronic Kidney Disease Epidemiology Collaboration (CKD-EPI) equation refit without adjustment for race Glucose [Mass/Vol] 200 mg/dL High 70 - 100 mg/dL [facility] Interpretation and review of laboratory results Abnormal [facility] Potassium [Moles/Vol] 4.5 mmol/L 3.5 - 5.1 mmol/L [facility] Protein [Mass/Vol] 7.1 g/dL 6.3 - 8.2 g/dL [facility] Sodium [Moles/Vol] 136 mmol/L 135 - 145 mmol/L [facility] Urea nitrogen [Mass/Vol] 47 mg/dL High 9 - 20 mg/d L [facility] Laboratory - Chemistry and C hemistry - challengeon 12-06-2023 Troponin I.cardiac [Mass/Vol] 0.080 ng/mL High [facility] - 0.034 ng/mL [facility] Troponin I.cardiac [Mass/Vol] 0.031 ng/mL [facility] - 0.034 ng/mL [facility] Lactate [Moles/Vol] 1.4 mmol/L 0.7 - 2. 0 mmol/L [facility] Laboratory - Microbiology an d Antimicrobial susceptibilityon 12-06-2023 FLUAV RNA LISANDRO+probe Ql (Resp) Not detected Not Detected [facility] FLUBV RNA LISANDRO+probe Ql (Resp) Not detected Not Detected [facility] RSV RNA LISANDRO+probe Ql (Resp) Detected Abnormal Not Detected [facility] SARS-CoV-2 (COVID-19) RNA LISANDRO+probe Ql (Resp) Not detected Not Detected [facility]th SARS-CoV-2 (COVID-19) RNA LISANDRO+probe Ql (Unsp spec) Methodology: real-time, RT-PCR The SARS-CoV-2, Flu A/B, and RSV Combo assay is intended for in vitro diagnostic use under the FDA Emergency Use Authorization (EUA). This test has not been FDA cleared or approved. In compliance with this authorization, please visit www.fda.gov/media/ 9568/download or www.fda.gov/media/ 295/download to access the applicable information sheets. [facility] No Panel Informationon 12-06 Interpretation and review of laboratory results Normal [facility] SARS-CoV-2, Flu A/B, and RSV Comboon 12-06-2023 Interpretation and review of laboratory results Abnormal [facility] Troponin I.cardiac [Mass/Vol ]on 12-06-2023 Interpretation and review of laboratory results Abnormal [facility] Patients with high levels of Biotin oral intake (ie >5 mg/day) may have falsely decreased Troponin levels. [facility] Interpretation and review of laboratory results Normal [facility] Patients with high levels of Biotin oral intake (ie >5 mg/day) may have falsely decreased Troponin levels. [facility] XR Chest Single viewon 12-06 No radiographic acute cardiopulmonary process. Report Dictated on Electronically Signed By: Iman Arriaga MD Electronically Signed Date/Time: 12/06/2023 4:36 PM EST [facility] RADIOLOGY SYSTEM Patient Name: TITA KEITH : 1935 Exam Date/Time: 12/06/2023 16:35 Procedure: XR CHEST 1 VIEW Ordering Provider: [facility] Reason For Exam: pna INDICATION: 88-year-old male; pneumonia. VIEWS: Portable AP upright chest-one image COMPARISON: 09/10/2023 FINDINGS: Cardiac monitoring wires and leads are present. The trachea is midline. The cardiac silhouette is within normal limits. There is no confluent consolidation. [facility] Iman Arriaga MD - 12/06/2023 Patient Name: TITA KEITH : 1935 Exam Date/Time: 12/06/2023 16:35 Procedure: XR CHEST 1 VIEW Ordering Provider: [facility] Reason For Exam: pna INDICATION: 88-year-old male; pneumonia. VIEWS: Portable AP upright chest-one image COMPARISON: 09/10/2023 FINDINGS: Cardiac monitoring wires and leads are present. The trachea is midline. The cardiac silhouette is within normal limits. There is no confluent consolidation. IMPRESSION: No radiographic acute cardiopulmonary process. Report Dictated on Electronically Signed By: Iman Arriaga MD Electronically Signed Date/Time: 12/06/2023 4:36 PM EST [facility] Radiology Study observation (narrative) [facility] XR Chest Single viewOrdered By: Iman Arriaga on 12-06-2023 [facility] [employer] Work Phone: Basophil percentageOrdered B y: Javy Lynn on 12-05-2023 Bilirubin [Mass/Vol] 0.50 mg/dL 0.20-1.00 [facility] Comment on above: For patients on eltr ombopag therapy, use of Dimension [place] TBIL is not recommended. Chloride [Moles/Vol] 107 mmol/L 98-107 [facility] Glucose [Mass/Vol] 109 mg/dL 74-106 [facility] Comment on above: Fasting Glucose resu lt from 100 to 125 mg/dL suggests IMPAIRED HOMEOSTASIS per A.D.A. criteria. Hemoglobin (Bld) [Mass/Vol] 12.2 g/dL 13.0-16.5 [facility] Potassium [Moles/Vol] 4.6 mmol/L 3.5-5.1 [facility] Comment on above: Slight Hemolysis, Re sult may be falsely increased. Protein [Mass/Vol] 6.8 g/dL 6.4-8.2 [facility] Sodium [Moles/Vol] 140 mmol/L 136-145 [facility] WBC (Bld) [#/Vol] 7.0 10*3/uL 4.4-11.0 [facility] Determination of erythrocyte mean corpuscular volume (MCV)Ordered By: Javy Lynn on 12-05-2023 MCV (RBC) [Entitic vol] 91.2 fL 80-94 [facility] Erythrocyte distribution wid th ratioOrdered By: Javy Lynn on 12-05-2023 Erythrocyte distribution width (RBC) [Ratio] 13.2 % 11.6-14.6 [facility] Erythrocyte distribution wid th standard deviationOrdered By: Javy Lynn on 12-05-2023 Erythrocyte distribution width (RBC) [Entitic vol] 44.0 fL 35.1-43.9 [facility] Hematocrit Auto (Bld) [Volum e fraction]Ordered By: Javy Lynn on 12-05-2023 Hematocrit (Bld) [Volume fraction] 37.4 % 40-54 [facility] Laboratory - Chemistry and C hemistry - challengeOrdered By: Javy Lynn on 12-05-2023 Albumin/Globulin [Mass ratio] 0.8 {ratio} 0.9-2.4 [facility] ALP [Catalytic activity/Vol] 114 U/L 45-117 [facility] ALT [Catalytic activity/Vol] 32 U/L 16-61 [facility] CO2 [Moles/Vol] 25.0 mmol/L 21.0-32.0 [facility] Globulin (S) [Mass/Vol] 3.7 g/dL 2.2-4.2 [facility] Urea nitrogen/Creatinine [Mass ratio] 33.1 mg/mg 10-20 [facility] Laboratory - Hematology and Cell countsOrdered By: Javy Lynn on 12-05-2023 MCH (RBC) [Entitic mass] 29.8 pg 27.0-32.0 [facility] MCHC (RBC) [Mass/Vol] 32.6 g/dL 32-36 [facility] Platelet mean volume (Bld) [Entitic vol] 11.9 fL 6.2-12.0 [facility] Platelets (Bld) [#/Vol] 138 10*3/uL 150-450 [facility] No Panel InformationOrdered By: Javy Lynn on 12-05-2023 Estimated GFR (MDRD) Amer 73 mL/min >60 [facility] Comment on above: GFR Calc Estimated GFR (MDRD) Non-Af Amer 60 mL/min >60 [facility] Comment on above: Non- GFR Calc RBC Auto (Bld) [#/Vol]Ordere d By: Javy Lynn on 12-05-2023 RBC (Bld) [#/Vol] 4.10 10*6/uL 4.6-6.2 [facility] Serum or plasma calcium saud urement (mass/volume)Ordered By: Javy Lynn on 12-05-2023 Calcium [Mass/Vol] 9.4 mg/dL 8.5-10.1 [facility] Serum or plasma creatinine m easurement (mass/volume)Ordered By: Javy Lynn on 12-05-2023 Creatinine [Mass/Vol] 1.21 mg/dL 0.70-1.30 [facility] Comment on above: The validity of the calculated GFR & GFRAA in patients over 70 years has not been determined. Clinical correlation is essential. Serum or plasma urea nitroge n measurement (mass/volume)Ordered By: Javy Lynn on 12-05-2023 Urea nitrogen [Mass/Vol] 40 mg/dL 7-18 [facility] Thin prep Papanicolaou smear with manual screeningOrdered By: Javy Lynn on 12-05-2023 Thin prep Papanicolaou smear with manual screening 3.1 g/dL 3.2-5.0 [facility] Thin prep Papanicolaou smear with manual screening 26 U/L 15-37 [facility] Comment on above: Slight Hemolysis, Re sult may be falsely increased. Thin prep Papanicolaou smear with manual screening 8 5-15 [facility] Basophil percentageOrdered B y: Javy Lynn on 11-02-2023 Basophil percentage 10-25 SEEN /hpf 0-5 [facility] Bilirubin Test strip Ql (U)O rdered By: Javy Lynn on 11-02-2023 Bilirubin Ql (U) Negative Negative [facility] Culture, urineOrdered By: Manzanares on 11-02-2023 Bacteria identified Cx Nom (U) Enterococcus faecalis [facility] Bacteria identified Cx Nom (U) Corynebacterium striatum [facility] Bacteria identified Cx Nom (U) Staphylococcus simulans [facility] Ketones Test strip Ql (U)Ord ered By: Javy Lynn on 11-02-2023 Ketones Ql (U) Negative Negative [facility] Mucus LM Ql (Urine sed)Order ed By: Javy Lynn on 11-02-2023 Mucus Ql (Urine sed) 0 SEEN /hpf [facility] Nitrite Test strip Ql (U)Ord ered By: Javy Lynn on 11-02-2023 Nitrite Ql (U) Negative Negative [facility] Protein Test strip Ql (U)Ord ered By: Javy Lynn on 11-02-2023 Protein Ql (U) 15 mg/dl Negative [facility] Squamous epithelial cells de tection in urine sediment by light microscopyOrdered By: Javy Lynn on 11-02-2023 Epithelial cells.squamous LM Ql (Urine sed) 0 SEEN /hpf 0-5 [facility] Urine blood detectionOrdered By: Javy Lynn on 11-02-2023 RBC Ql (U) 10 /ul Negative [facility] RBC Ql (U) 0 SEEN /hpf 0-5 [facility] Urine clarityOrdered By: Sunitha Lynn on 11-02-2023 Clarity (U) Clear Clear [facility] Urine color determinationOrd ered By: Javy Lynn on 11-02-2023 Color (U) Yellow Yellow [facility] Urine glucose detectionOrder ed By: Javy Lynn on 11-02-2023 Glucose Ql (U) Normal mg/dl Normal [facility] Urine leukocyte esterase det ection by dipstickOrdered By: Javy Lynn on 11-02-2023 Leukocyte esterase Test strip Ql (U) 100 /ul Negative [facility] Urine pHOrdered By: Javy gordon on 11-02-2023 pH (U) 6.5 [pH] 5.0 - 8.0 [facility] Urine sediment bacteria coun t by microscopy (number/high power field)Ordered By: Javy Lynn on 11-02-2023 Bacteria LM.HPF (Urine sed) [#/Area] 1 /[HPF] None Seen [facility] Urine specific gravity measu rementOrdered By: Javy Lynn on 11-02-2023 Specific gravity (U) [Rel density] 1.015 1.002-1.030 [facility] Urobilinogen Auto test strip Ql (U)Ordered By: Javy Lynn on 11-02-2023 Urobilinogen Ql (U) Normal mg/dl Normal [facility] Whole blood hemoglobin A1c/t otal hemoglobin ratio (mass fraction)Ordered By: Javy Lynn on 10-01-2023 HbA1c (Bld) [Mass fraction] 8.0 % 3.8-5.6 [facility] Comment on above: Normal < 5.7 % Predi abetic 5.7 - 6.4 % Diabetic >or= 6.5 % Please note range changes. Basophil percentageOrdered B y: Javy Lynn on 09-25-2023 Bilirubin [Mass/Vol] 0.50 mg/dL 0.20-1.00 [facility] Comment on above: For patients on eltr ombopag therapy, use of Dimension [place] TBIL is not recommended. Chloride [Moles/Vol] 104 mmol/L 98-107 [facility] Glucose [Mass/Vol] 63 mg/dL 74-106 [facility] Potassium [Moles/Vol] 4.1 mmol/L 3.5-5.1 [facility] Comment on above: Slight Hemolysis, Re sult may be falsely increased. Protein [Mass/Vol] 6.2 g/dL 6.4-8.2 [facility] Sodium [Moles/Vol] 137 mmol/L 136-145 [facility] WBC (Bld) [#/Vol] 4.6 10*3/uL 4.4-11.0 [facility] Blood erythrocytes count (nu mber/volume)Ordered By: Javy Lynn on 09-25-2023 RBC (Bld) [#/Vol] 4.37 10*6/uL 4.6-6.2 [facility] Blood hemoglobin measurement (mass/volume)Ordered By: Javy Lynn on 09-25-2023 Hemoglobin (Bld) [Mass/Vol] 12.7 g/dL 13.0-16.5 [facility] Blood platelet mean volumeOr dered By: Javy Lynn on 09-25-2023 Platelet mean volume (Bld) [Entitic vol] 11.9 fL 6.2-12.0 [facility] Determination of erythrocyte mean corpuscular volume (MCV)Ordered By: Javy Lynn on 09-25-2023 MCV (RBC) [Entitic vol] 91.8 fL 80-94 [facility] Hematocrit Auto (Bld) [Volum e fraction]Ordered By: Javy Lynn on 09-25-2023 Hematocrit (Bld) [Volume fraction] 40.1 % 40-54 [facility] Laboratory - Chemistry and C hemistry - challengeOrdered By: Javy Lynn on 09-25-2023 ALP [Catalytic activity/Vol] 110 U/L 45-117 [facility] ALT [Catalytic activity/Vol] 19 U/L 16-61 [facility] CO2 [Moles/Vol] 29.0 mmol/L 21.0-32.0 [facility] Globulin (S) [Mass/Vol] 3.5 g/dL 2.2-4.2 [facility] Urea nitrogen/Creatinine [Mass ratio] 29.8 mg/mg 10-20 [facility] Laboratory - Hematology and Cell countsOrdered By: Javy Lynn on 09-25-2023 Erythrocyte distribution width (RBC) [Entitic vol] 43.8 fL 35.1-43.9 [facility] Erythrocyte distribution width (RBC) [Ratio] 13.2 % 11.6-14.6 [facility] MCH (RBC) [Entitic mass] 29.1 pg 27.0-32.0 [facility] MCHC Auto (RBC) [Mass/Vol]Or dered By: Javy Lynn on 09-25-2023 MCHC (RBC) [Mass/Vol] 31.7 g/dL 32-36 [facility] No Panel InformationOrdered By: Javy Lynn on 09-25-2023 Estimated GFR (MDRD) Amer 66 mL/min >60 [facility] Comment on above: GFR Calc Estimated GFR (MDRD) Non-Af Amer 55 mL/min >60 [facility] Comment on above: Non- GFR Calc Platelets bldOrdered By: Sunitha Lynn on 09-25-2023 Platelets (Bld) [#/Vol] 225 10*3/uL 150-450 [facility] Serum or plasma albumin saud urement (mass/volume)Ordered By: Javy Lynn on 09-25-2023 Albumin [Mass/Vol] 2.7 g/dL 3.2-5.0 [facility] Serum or plasma albumin/glob ulin mass ratioOrdered By: Javy Lynn on 09-25-2023 Albumin/Globulin [Mass ratio] 0.8 {ratio} 0.9-2.4 [facility] Serum or plasma calcium saud urement (mass/volume)Ordered By: Javy Lynn on 09-25-2023 Calcium [Mass/Vol] 9.2 mg/dL 8.5-10.1 [facility] Serum or plasma creatinine m easurement (mass/volume)Ordered By: Javy Lynn on 09-25-2023 Creatinine [Mass/Vol] 1.31 mg/dL 0.70-1.30 [facility] Comment on above: The validity of the calculated GFR & GFRAA in patients over 70 years has not been determined. Clinical correlation is essential. Serum or plasma urea nitroge n measurement (mass/volume)Ordered By: Javy Lynn on 09-25-2023 Urea nitrogen [Mass/Vol] 39 mg/dL 7-18 [facility] Thin prep Papanicolaou smear with manual screeningOrdered By: Javy Lynn on 09-25-2023 Thin prep Papanicolaou smear with manual screening 16 U/L 15-37 [facility] Comment on above: Slight Hemolysis, Re sult may be falsely increased. Thin prep Papanicolaou smear with manual screening 4 5-15 [facility] Laboratory - Chemistry and C hemistry - challengeon 09-19-2023 Glucose [Mass/Vol] 236 mg/dL High 70 - 100 mg/dL [facility] No Panel Informationon 09-19 Interpretation and review of laboratory results Abnormal [facility] Performed by: [facility], [address] [place] [address] CLIA ID: [id number] [facility] Laboratory - Chemistry and C hemistry - challengeon 09-18-2023 Glucose [Mass/Vol] 155 mg/dL High 70 - 100 mg/dL [facility] Glucose [Mass/Vol] 169 mg/dL High 70 - 100 mg/dL [facility] Glucose [Mass/Vol] 282 mg/dL High 70 - 100 mg/dL [facility] Glucose [Mass/Vol] 124 mg/dL High 70 - 100 mg/dL [facility] No Panel Informationon 09-18 Interpretation and review of laboratory results Abnormal [facility]formed [facility]: [facility], [address], [facility] [address] CLIA ID: [id number] [facility] Interpretation and review of laboratory results Abnormal [facility] Performed by: [facility], [address], [facility] [address] CLIA ID: [id number] [facility] Interpretation and review of laboratory results Abnormal [facility] Performed by: [facility], [address], [facility] [address] CLIA ID: [id number] [facility] Interpretation and review of laboratory results Abnormal [facility] Performed by: [facility], [address], [facility] [address] CLIA ID: [id number] [facility] Basic metabolic 1998 panelon 09-17-2023 Anion gap [Moles/Vol] 6 mmol/L 3 - 13 mmol/L [facility] Calcium [Mass/Vol] 9.2 mg/dL 8.4 - 10. 4 mg/dL [facility] Chloride [Moles/Vol] 109 mmol/L High 98 - 10 7 mmol/L [facility] CO2 [Moles/Vol] 25 mmol/L 22 - 30 mmol/L [facility] Creatinine [Mass/Vol] 0.95 mg/dL 0.66 - 1.25 mg/dL [facility] GFR/1.73 sq M.predicted MDRD (S/P/Bld) [Vol rate/Area] 77.5 mL/min/{1.73_m2} - PINF [facility] Comment on above: Calculation based on the Chronic Kidney Disease Epidemiology Collaboration (CKD-EPI) equation refit without adjustment for race Glucose [Mass/Vol] 50 mg/dL Low 70 - 100 mg/dL [facility] Interpretation and review of laboratory results Abnormal [facility] Potassium [Moles/Vol] 3.1 mmol/L Low 3.5 - 5.1 mmol/L [facility] Sodium [Moles/Vol] 140 mmol/L 135 - 145 mmol/L [facility] Urea nitrogen [Mass/Vol] 37 mg/dL High 9 - 20 mg/d L [facility] CBC panel Auto (Bld)Ordered By: Davina Ramos on 09-17-2023 Erythrocyte distribution width (RBC) [Ratio] 14.0 % 11.5 - 14.5 % [facility] Hematocrit (Bld) [Volume fraction] 39.5 % Low 40.0 - 52.0 % [facility] Hemoglobin (Bld) [Mass/Vol] 13.7 g/dL 13.0 - 18.0 g/dL [facility] Interpretation and review of laboratory results Abnormal [facility] MCH (RBC) [Entitic mass] 29.9 pg 26. 0 - 34.0 pg [facility] MCHC (RBC) [Mass/Vol] 34.6 % 32.0 - 36.0 % [facility] MCV (RBC) [Entitic vol] 86.4 fL 80.0 - 98.0 fL [facility] Platelet mean volume (Bld) [Entitic vol] 8.9 fL 7.4 - 12.4 fL [facility] Platelets (Bld) [#/Vol] 182 10*3/uL 140 - 440 10*3/uL [facility] RBC (Bld) [#/Vol] 4.57 10*6/uL 4.40 - 5.9 0 10*6/uL [facility] WBC (Bld) [#/Vol] 7.0 10*3/uL 3.6 - 10.7 10*3/uL [facility] Laboratory - Chemistry and C hemistry - challengeon 09-17-2023 Glucose [Mass/Vol] 238 mg/dL High 70 - 100 mg/dL [facility] Glucose [Mass/Vol] 126 mg/dL High 70 - 100 mg/dL [facility] Glucose [Mass/Vol] 257 mg/dL High 70 - 100 mg/dL [facility] Glucose [Mass/Vol] 287 mg/dL High 70 - 100 mg/dL [facility] Glucose [Mass/Vol] 235 mg/dL High 70 - 100 mg/dL [facility] Glucose [Mass/Vol] 82 mg/dL 70 - 100 mg/dL [facility] Glucose [Mass/Vol] 65 mg/dL Low 70 - 100 mg/dL [facility] Glucose [Mass/Vol] 58 mg/dL Low 70 - 100 mg/dL [facility] Average glucose Estimated from glycated hemoglobin (Bld) [Mass/Vol] 174 mg/dL [facility] Laboratory - Hematology and Cell countson 09-17-2023 HbA1c (Bld) [Mass fraction] 7.7 % High NINF - 5.7 % [facility] Comment on above: Normal less than 5.7 % Prediabetes 5.7% to 6.4% Diabetes 6.5% or higher --HgbA1C levels may not be accurate in patients who have renal disease, received recent blood transfusions, are anemic, or who have dyshemoglobinemia. No Panel Informationon 09-17 Interpretation and review of laboratory results Abnormal [facility] Performed by: [facility], [address] [facility] [address] CLIA ID: [id number] [facility] Interpretation and review of laboratory results Abnormal [facility]formed by: [facility], [address] [facility] [address] CLIA ID: [id number] [facility] No evidence of deep vein or superficial vein thrombosis in the right upper extremity. Vessels demonstrate normal compressibility, color filling, and phasic and spontaneous flow. Contralateral imaging of the left subclavian vein was normal. Right Upper Venous No evidence of deep vein or superficial vein thrombosis. The internal jugular, subclavian, axillary, brachial, radial, ulnar, basilic, and cephalic veins were imaged in the transverse view and showed normal compressibility. The internal jugular, innominate, subclavian, and axillary veins were imaged in the longitudinal view and showed normal color filling and normal phasic and spontaneous flow. Cephalic Vein (Upper Arm): Not visualized. Left Upper Venous For comparison purposes, the left subclavian vein was investigated. This vein appeared to show normal color filling and Doppler interrogation showed phasic, spontaneous and somewhat pulsatile flow. [employer] Details A rodriguez scale, color Doppler imaging, spectral Doppler analysis and B-flow ultrasound was performed. During the study longitudinal and transverse views were obtained. Pulsed wave doppler was performed. The exam was performed with the patient in the supine position. Overall the study quality was adequate. Study was technically difficult due to: patient uncooperative, bedside exam and patient movement. CV CPACS Interpretation and review of laboratory results Abnormal [facility] Performed by: [facility], [address] [facility] [address] CLIA ID: [id number] [facility] Interpretation and review of laboratory results Abnormal [facility] Performed by: [facility], [address] [facility] [address] CLIA ID: [id number] [facility] Interpretation and review of laboratory results Abnormal [facility] Performed by: [facility], [address] [facility] [address] CLIA ID: [id number] [facility] Interpretation and review of laboratory results Normal [facility] Performed by: [facility], [address] [facility] [address] CLIA ID: [id number] [facility] Interpretation and review of laboratory results Abnormal [facility] Performed by: [facility], [address] [facility] [address] CLIA ID: [id number] [facility] Interpretation and review of laboratory results Abnormal [facility] Performed by: [facility], [address] [facility] [address] CLIA ID: [id number] [facility] Interpretation and review of laboratory results Abnormal [facility] SARS-CoV-2 (COVID-19) RNA pa zabrina LISANDRO+probe (Resp)Ordered By: Katelyn Vail on 09-17-2023 Interpretation and review of laboratory results Abnormal [facility] SARS-CoV-2 (COVID-19) RNA LISANDRO+probe Ql (Resp) Detected Abnormal Not Detected [facility] SARS-CoV-2 (COVID-19) RNA LISANDRO+probe Ql (Unsp spec) Methodology: real-time, RT-PCR The SARS-CoV-2 assay is intended for in vitro diagnostic use under the FDA Emergency Use Authorization (EUA). This test has not been FDA cleared or approved. In compliance with this authorization, please visit www.fda.gov/media/ 3052/download or www.fda.gov/media/ 2707/download to access the applicable information sheets. [facility] Bacteria identified Cx Nom ( Bld)on 09-16-2023 Interpretation and review of laboratory results Normal [facility] Blood Collection Site: Left Arm [facility] Laboratory - Chemistry and C hemistry - challengeon 09-16-2023 Glucose [Mass/Vol] mg/dL High 70 - 100 mg/dL [facility] Comment on above: Caregiver Notified; Glucose [Mass/Vol] 405 mg/dL High 70 - 100 mg/dL [facility] Laboratory - Microbiology an d Antimicrobial susceptibilityon 09-16-2023 Bacteria identified Cx Nom (Bld) No growth at 5 days [facility] No Panel Informationon 09-16 Interpretation and review of laboratory results Abnormal [facility]formed by: [facility], [address] [place] [address] CLIA ID: [id number] [facility] Interpretation and review of laboratory results Abnormal [facility] Performed by: [facility], [address] [place] [address] CLIA ID: [id number] [facility] Laboratory - Chemistry and C hemistry - challengeon 09-15-2023 Glucose [Mass/Vol] 334 mg/dL High 70 - 100 mg/dL [facility] Glucose [Mass/Vol] 320 mg/dL High 70 - 100 mg/dL [facility] No Panel Informationon 09-15 Interpretation and review of laboratory results Abnormal [facility]formed by: [facility], [address] [place] [address] CLIA ID: [id number] [facility] Interpretation and review of laboratory results Abnormal [facility] Performed by: [facility], [address] [place] [address] CLIA ID: [id number] [facility] CBC W Auto Differential pane l (Bld)Ordered By: Pérez Holm on 09-14-2023 Basophils (Bld) [#/Vol] 0.0 10*3/uL 0.0 - 0.2 10*3/uL [facility] Basophils/100 WBC (Bld) 0.1 % 0.0 - 2.0 % [facility] Eosinophils (Bld) [#/Vol] 0.0 10*3/uL 0.0 - 0.5 10*3/uL [facility] Eosinophils/100 WBC (Bld) 0.0 % Low 1.0 - 6.0 % [facility] Erythrocyte distribution width (RBC) [Ratio] 14.2 % 11.5 - 14.5 % [facility] Hematocrit (Bld) [Volume fraction] 41.7 % 40.0 - 52.0 % [facility] Hemoglobin (Bld) [Mass/Vol] 14.1 g/dL 13.0 - 18.0 g/dL [facility] Interpretation and review of laboratory results Abnormal [facility] Lymphocytes (Bld) [#/Vol] 0.6 10*3/uL Low 1.0 - 4.3 10*3/uL [facility] Lymphocytes/100 WBC (Bld) 11.0 % Low 20.0 - 40.0 % [facility] MCH (RBC) [Entitic mass] 29.4 pg 26. 0 - 34.0 pg [facility] MCHC (RBC) [Mass/Vol] 33.7 % 32.0 - 36.0 % [facility] MCV (RBC) [Entitic vol] 87.4 fL 80.0 - 98.0 fL [facility] Monocytes (Bld) [#/Vol] 0.2 10*3/uL 0.0 - 0.8 10*3/uL [facility] Monocytes/100 WBC (Bld) 3.9 % 2.0 - 10.0 % [facility] Neutrophils (Bld) [#/Vol] 4.5 10*3/uL 1.8 - 7.0 10*3/uL [facility] Neutrophils/100 WBC (Bld) 85.0 % High 40.0 - 80.0 % [facility] Nucleated RBC/100 WBC (Bld) [Ratio] 0.1 % [facility] Platelet mean volume (Bld) [Entitic vol] 9.6 fL 7.4 - 12.4 fL [facility] Platelets (Bld) [#/Vol] 133 10*3/uL Low 140 - 440 10*3/uL [facility] RBC (Bld) [#/Vol] 4.77 10*6/uL 4.40 - 5.9 0 10*6/uL [facility] WBC (Bld) [#/Vol] 5.3 10*3/uL 3.6 - 10.7 10*3/uL [facility] CRP [Mass/Vol]on 09-14-2023 Interpretation and review of laboratory results Abnormal [facility] Laboratory - Chemistry and C hemistry - challengeon 09-14-2023 Glucose [Mass/Vol] 263 mg/dL High 70 - 100 mg/dL [facility] Glucose [Mass/Vol] 279 mg/dL High 70 - 100 mg/dL [facility] Glucose [Mass/Vol] 262 mg/dL High 70 - 100 mg/dL [facility] Glucose [Mass/Vol] 238 mg/dL High 70 - 100 mg/dL [facility] CRP [Mass/Vol] 60.0 mg/L High NINF - 10.0 mg/L [facility] No Panel Informationon 09-14 Interpretation and review of laboratory results Abnormal [facility] Performed by: [facility], [address] [place] [address] CLIA ID: [id number] [facility] Interpretation and review of laboratory results Abnormal [facility] Performed by: [facility], [address] [place] [address] CLIA ID: [id number] [facility] Interpretation and review of laboratory results Abnormal [facility] Performed by: [facility], [address] [place] [address] CLIA ID: [id number] [facility] Interpretation and review of laboratory results Abnormal [facility] Performed by: [facility], [address] [place] [address] CLIA ID: [id number] [facility] Bacteria identified Aer cx N om (Lower resp)Ordered By: Loy Alcantar on 09-13-2023 Gram Stain Result Many Polymorphonuclear leukocytes per low power field Abnormal [facility] Gram Stain Result Few Epithelial cells per low power field Abnormal [facility] Gram Stain Result Positive [facility] Gram Stain Result Negative [facility]normal [facility] Interpretation and review of laboratory results Abnormal [facility] Bacteria identified Cx Nom ( Bld)Ordered By: Lexi Pineda on 09-13-2023 Interpretation and review of laboratory results Abnormal [facility] Blood Collection Site: Right Arm [facility] CBC W Auto Differential pane l (Bld)on 09-13-2023 Basophils (Bld) [#/Vol] 0.0 10*3/uL 0.0 - 0.2 10*3/uL [facility] Basophils/100 WBC (Bld) 0.1 % 0.0 - 2.0 % [facility] Eosinophils (Bld) [#/Vol] 0.0 10*3/uL 0.0 - 0.5 10*3/uL [facility] Eosinophils/100 WBC (Bld) 0.0 % Low 1.0 - 6.0 % [facility] Erythrocyte distribution width (RBC) [Ratio] 14.1 % 11.5 - 14.5 % [facility] Hematocrit (Bld) [Volume fraction] 37.1 % Low 40.0 - 52.0 % [facility] Hemoglobin (Bld) [Mass/Vol] 12.5 g/dL Low 13.0 - 18.0 g/dL [facility] Interpretation and review of laboratory results Abnormal [facility] Lymphocytes (Bld) [#/Vol] 0.5 10*3/uL Low 1.0 - 4.3 10*3/uL [facility] Lymphocytes/100 WBC (Bld) 10.6 % Low 20.0 - 40.0 % [facility] MCH (RBC) [Entitic mass] 29.7 pg 26. 0 - 34.0 pg [facility] MCHC (RBC) [Mass/Vol] 33.8 % 32.0 - 36.0 % [facility] MCV (RBC) [Entitic vol] 88.0 fL 80.0 - 98.0 fL [facility] Monocytes (Bld) [#/Vol] 0.1 10*3/uL 0.0 - 0.8 10*3/uL [facility] Monocytes/100 WBC (Bld) 1.9 % Low 2.0 - 10.0 % [facility] Neutrophils (Bld) [#/Vol] 4.1 10*3/uL 1.8 - 7.0 10*3/uL [facility] Neutrophils/100 WBC (Bld) 87.4 % High 40.0 - 80.0 % [facility] Nucleated RBC/100 WBC (Bld) [Ratio] 0.2 % [facility] Platelet mean volume (Bld) [Entitic vol] 10.2 fL 7.4 - 12.4 fL [facility] Platelets (Bld) [#/Vol] 115 10*3/uL Low 140 - 440 10*3/uL [facility] RBC (Bld) [#/Vol] 4.21 10*6/uL Low 4.40 - 5.9 0 10*6/uL [facility] WBC (Bld) [#/Vol] 4.7 10*3/uL 3.6 - 10.7 10*3/uL [facility] CRP [Mass/Vol]on 09-13-2023 Interpretation and review of laboratory results Abnormal [facility] Comprehensive metabolic 1998 panelon 09-13-2023 Albumin [Mass/Vol] 3.3 g/dL Low 3.5 - 5.0 g/dL [facility] ALP [Catalytic activity/Vol] 81 U/L 38 - 126 U/L [facility] ALT [Catalytic activity/Vol] 40 U/L 0 - 49 U/L [facility] Anion gap [Moles/Vol] 6 mmol/L 3 - 13 mmol/L [facility] AST [Catalytic activity/Vol] 45 U/L 15 - 46 U/L [facility] Bilirubin [Mass/Vol] 0.5 mg/dL 0.2 - 1 .3 mg/dL [facility] Calcium [Mass/Vol] 8.7 mg/dL 8.4 - 10. 4 mg/dL [facility] Chloride [Moles/Vol] 106 mmol/L 98 - 10 7 mmol/L [facility] CO2 [Moles/Vol] 25 mmol/L 22 - 30 mmol/L [facility] Creatinine [Mass/Vol] 0.89 mg/dL 0.66 - 1.25 mg/dL [facility] GFR/1.73 sq M.predicted MDRD (S/P/Bld) [Vol rate/Area] 82.9 mL/min/{1.73_m2} - PINF [facility] Comment on above: Calculation based on the Chronic Kidney Disease Epidemiology Collaboration (CKD-EPI) equation refit without adjustment for race Glucose [Mass/Vol] 296 mg/dL High 70 - 100 mg/dL [facility] Interpretation and review of laboratory results Abnormal [facility] Potassium [Moles/Vol] 4.0 mmol/L 3.5 - 5.1 mmol/L [facility] Protein [Mass/Vol] 6.4 g/dL 6.3 - 8.2 g/dL [facility] Sodium [Moles/Vol] 136 mmol/L 135 - 145 mmol/L [facility] Urea nitrogen [Mass/Vol] 39 mg/dL High 9 - 20 mg/d L [facility] Laboratory - Chemistry and C hemistry - challengeon 09-13-2023 Glucose [Mass/Vol] 229 mg/dL High 70 - 100 mg/dL [facility] Glucose [Mass/Vol] 275 mg/dL High 70 - 100 mg/dL [facility] Glucose [Mass/Vol] 291 mg/dL High 70 - 100 mg/dL [facility] Glucose [Mass/Vol] 306 mg/dL High 70 - 100 mg/dL [facility] CRP [Mass/Vol] 80.7 mg/L High NINF - 10.0 mg/L [facility] Laboratory - Microbiology an d Antimicrobial susceptibilityOrdered By: Loy Alcantar on 09-13-2023 Bacteria identified Aer cx Nom (Lower resp) Many respiratory rolando present. [facility] Laboratory - Microbiology an d Antimicrobial susceptibilityOrdered By: Lexi Pineda on 09-13-2023 Bacteria identified Cx Nom (Bld) Staphylococcus epidermidis Critically abnormal [facility] Comment on above: Contamination likely unless additional blood culture sets are found to be positive with the same organism. This is an edited result. Previous organism was Gram-positive cocci on 09/12/2023 at 0502 EST. No Panel Informationon 09-13 Interpretation and review of laboratory results Abnormal [facility] Performed by: [facility] [place] [facility], [address] [place] [id number] CLIA ID: [id number] [facility] Interpretation and review of laboratory results Abnormal [facility] Performed by: [facility] [place] [facility], [address] [place] [address] CLIA ID: [id number] [facility] Interpretation and review of laboratory results Abnormal [facility] Performed by: [facility] [place] [facility], [address] [place] [id number] CLIA ID: [id number] [facility] Interpretation and review of laboratory results Abnormal [facility] Performed by: [facility] [place] [facility], [address] [place] [address] CLIA ID: [id number] [facility] Urinalysis complete panel (U )Ordered By: Brianna Stokes on 09-13-2023 Bacteria LM.HPF (Urine sed) [#/Area] Moderate Abnormal Negative /HPF [facility] Bilirubin Ql (U) Negative Negative mg/dL [facility] Clarity (U) Clear Clear [facility] Color (U) Light Yellow Lt. Yellow [facility] Epithelial cells.squamous LM.HPF (Urine sed) [#/Area] [facility]l (U) >1,000 Abnormal Normal (<70) mg/dL [facility] Hemoglobin Ql (U) >1.0 Abnormal Negative mg/dL [facility] Interpretation and review of laboratory results Abnormal [facility] Ketones (U) [Mass/Vol] Negative Negat kate mg/dL [facility] Leukocyte esterase Test strip Ql (U) 25 Abnormal Negative Rosales/uL [facility] Nitrite Ql (U) Negative Negative [facility] pH (U) 5.5 [pH] 5.0 - 8.0 pH [facility] Protein (U) [Mass/Vol] 30 mg/dL Abnormal Negative [facility] RBC LM.HPF (Urine sed) [#/Area] 51-100 Abnormal [facility] Specific gravity (U) [Rel density] 1.022 1.005 - 1.030 [facility] Urobilinogen (U) [Mass/Vol] Normal Normal (0-1) mg/dL [facility] WBC LM.HPF (Urine sed) [#/Area] 11-25 Abnormal [facility] CBC W Auto Differential pane l (Bld)Ordered By: Osman Cadena on 09-12-2023 Basophils (Bld) [#/Vol] 0.0 10*3/uL 0.0 - 0.2 10*3/uL [facility] Basophils/100 WBC (Bld) 0.3 % 0.0 - 2.0 % [facility] Eosinophils (Bld) [#/Vol] 0.0 10*3/uL 0.0 - 0.5 10*3/uL [facility] Eosinophils/100 WBC (Bld) 0.0 % Low 1.0 - 6.0 % [facility] Erythrocyte distribution width (RBC) [Ratio] 14.4 % 11.5 - 14.5 % [facility] Hematocrit (Bld) [Volume fraction] 34.6 % Low 40.0 - 52.0 % [facility] Hemoglobin (Bld) [Mass/Vol] 11.9 g/dL Low 13.0 - 18.0 g/dL [facility] Interpretation and review of laboratory results Abnormal [facility] Lymphocytes (Bld) [#/Vol] 0.5 10*3/uL Low 1.0 - 4.3 10*3/uL [facility] Lymphocytes/100 WBC (Bld) 11.2 % Low 20.0 - 40.0 % [facility] MCH (RBC) [Entitic mass] 30.1 pg 26. 0 - 34.0 pg [facility] MCHC (RBC) [Mass/Vol] 34.4 % 32.0 - 36.0 % [facility] MCV (RBC) [Entitic vol] 87.6 fL 80.0 - 98.0 fL [facility] Monocytes (Bld) [#/Vol] 0.1 10*3/uL 0.0 - 0.8 10*3/uL [facility] Monocytes/100 WBC (Bld) 2.2 % 2.0 - 10.0 % [facility] Neutrophils (Bld) [#/Vol] 4.2 10*3/uL 1.8 - 7.0 10*3/uL [facility] Neutrophils/100 WBC (Bld) 86.3 % High 40.0 - 80.0 % [facility] Nucleated RBC/100 WBC (Bld) [Ratio] 0.1 % [facility] Platelet mean volume (Bld) [Entitic vol] 9.3 fL 7.4 - 12.4 fL [facility] Platelets (Bld) [#/Vol] 96 10*3/uL Low 140 - 440 10*3/uL [facility] RBC (Bld) [#/Vol] 3.95 10*6/uL Low 4.40 - 5.9 0 10*6/uL [facility] WBC (Bld) [#/Vol] 4.8 10*3/uL 3.6 - 10.7 10*3/uL [facility] CRP [Mass/Vol]on 09-12-2023 Interpretation and review of laboratory results Abnormal [facility] Comprehensive metabolic 1998 panelon 09-12-2023 Albumin [Mass/Vol] 3.3 g/dL Low 3.5 - 5.0 g/dL [facility] ALP [Catalytic activity/Vol] 79 U/L 38 - 126 U/L [facility] ALT [Catalytic activity/Vol] 48 U/L 0 - 49 U/L [facility] Anion gap [Moles/Vol] 5 mmol/L 3 - 13 mmol/L [facility] AST [Catalytic activity/Vol] 70 U/L High 15 - 46 U/L [facility] Bilirubin [Mass/Vol] 0.4 mg/dL 0.2 - 1 .3 mg/dL [facility] Calcium [Mass/Vol] 8.2 mg/dL Low 8.4 - 10. 4 mg/dL [facility] Chloride [Moles/Vol] 107 mmol/L 98 - 10 7 mmol/L [facility] CO2 [Moles/Vol] 23 mmol/L 22 - 30 mmol/L [facility] Creatinine [Mass/Vol] 1.06 mg/dL 0.66 - 1.25 mg/dL [facility] GFR/1.73 sq M.predicted MDRD (S/P/Bld) [Vol rate/Area] 67.9 mL/min/{1.73_m2} - PINF [facility] Comment on above: Calculation based on the Chronic Kidney Disease Epidemiology Collaboration (CKD-EPI) equation refit without adjustment for race Glucose [Mass/Vol] 254 mg/dL High 70 - 100 mg/dL [facility] Interpretation and review of laboratory results Abnormal [facility] Potassium [Moles/Vol] 4.4 mmol/L 3.5 - 5.1 mmol/L [facility] Protein [Mass/Vol] 6.5 g/dL 6.3 - 8.2 g/dL [facility] Sodium [Moles/Vol] 135 mmol/L 135 - 145 mmol/L [facility] Urea nitrogen [Mass/Vol] 45 mg/dL High 9 - 20 mg/d L [facility] Laboratory - Chemistry and C hemistry - challengeon 09-12-2023 Glucose [Mass/Vol] 272 mg/dL High 70 - 100 mg/dL [facility] CRP [Mass/Vol] 193.8 mg/L High NINF - 10.0 mg/L [facility] No Panel Informationon 09-12 Interpretation and review of laboratory results Abnormal [facility] Performed by: [facility], [address] [place] [id number] CLIA ID: [id number] [facility] No Panel InformationOrdered By: Earnest De Anda on 09-12-2023 Interpretation and review of laboratory results Abnormal [facility] mecA/C (MRSE/MRSL) Detected Abnormal Not Detected [facility] Staphylococcus epidermidis Detected Abnormal Not Detected [facility] Methodology: Multiplex PCR The [employer] BCID panel can detect the following organisms: E. faecalis, E. faecium, Staphylococcus spp., S. aureus, S. epidermidis, S. lugdunensis, Streptococcus spp., S. pyogenes (Group A), S. agalactiae (Group B), S. pneumoniae, A. baumannii complex, B. fragilis, H. influenzae, N. meningitidis, P. aeruginosa, S. maltophilia, Enterobacterales, E. cloacae complex, E. coli, K. aerogenes, K. oxytoca, K. pneumoniae, Proteus spp., Salmonella spp., S. marcescens, C. albicans, C. auris, C. glabrata, C. krusei, C. parapsilosis, C. tropicalis, and C. neoformans/gattii. The following antimicrobial resistance genes are reported if appropriate organisms are detected: mecA/C and Mesfin/B. The following antimicrobial resistance genes are reported if detected and the appropriate organisms are detected: CTX-M, IMP, KPC, NDM, OXA-48-like, VIM, and mcr-1. [facility] CBC W Auto Differential pane l (Bld)Ordered By: Tatyana Cedillo on 09-11-2023 Basophils (Bld) [#/Vol] 0.0 10*3/uL 0.0 - 0.2 10*3/uL [facility] Basophils/100 WBC (Bld) 0.2 % 0.0 - 2.0 % [facility] Eosinophils (Bld) [#/Vol] 0.0 10*3/uL 0.0 - 0.5 10*3/uL [facility] Eosinophils/100 WBC (Bld) 0.0 % Low 1.0 - 6.0 % [facility] Erythrocyte distribution width (RBC) [Ratio] 14.5 % 11.5 - 14.5 % [facility] Hematocrit (Bld) [Volume fraction] 36.9 % Low 40.0 - 52.0 % [facility] Hemoglobin (Bld) [Mass/Vol] 12.2 g/dL Low 13.0 - 18.0 g/dL [facility] Interpretation and review of laboratory results Abnormal [facility] Lymphocytes (Bld) [#/Vol] 0.7 10*3/uL Low 1.0 - 4.3 10*3/uL [facility] Lymphocytes/100 WBC (Bld) 10.8 % Low 20.0 - 40.0 % [facility] MCH (RBC) [Entitic mass] 29.7 pg 26. 0 - 34.0 pg [facility] MCHC (RBC) [Mass/Vol] 33.1 % 32.0 - 36.0 % [facility] MCV (RBC) [Entitic vol] 89.7 fL 80.0 - 98.0 fL [facility] Monocytes (Bld) [#/Vol] 0.3 10*3/uL 0.0 - 0.8 10*3/uL [facility] Monocytes/100 WBC (Bld) 4.0 % 2.0 - 10.0 % [facility] Neutrophils (Bld) [#/Vol] 5.5 10*3/uL 1.8 - 7.0 10*3/uL [facility] Neutrophils/100 WBC (Bld) 85.0 % High 40.0 - 80.0 % [facility] Nucleated RBC/100 WBC (Bld) [Ratio] 0.1 % [facility] Platelet mean volume (Bld) [Entitic vol] 9.1 fL 7.4 - 12.4 fL [facility] Platelets (Bld) [#/Vol] 97 10*3/uL Low 140 - 440 10*3/uL [facility] RBC (Bld) [#/Vol] 4.12 10*6/uL Low 4.40 - 5.9 0 10*6/uL [facility] WBC (Bld) [#/Vol] 6.5 10*3/uL 3.6 - 10.7 10*3/uL [facility] CRP [Mass/Vol]on 09-11-2023 Interpretation and review of laboratory results Abnormal [facility] Interpretation and review of laboratory results Abnormal [facility] Comprehensive metabolic 1998 panelon 09-11-2023 Albumin [Mass/Vol] 3.8 g/dL 3.5 - 5.0 g/dL [facility] ALP [Catalytic activity/Vol] 77 U/L 38 - 126 U/L [facility] ALT [Catalytic activity/Vol] 70 U/L High 0 - 49 U/L [facility] Anion gap [Moles/Vol] 10 mmol/L 3 - 13 mmol/L [facility] AST [Catalytic activity/Vol] 41 U/L 15 - 46 U/L [facility] Bilirubin [Mass/Vol] 0.5 mg/dL 0.2 - 1 .3 mg/dL [facility] Calcium [Mass/Vol] 8.8 mg/dL 8.4 - 10. 4 mg/dL [facility] Chloride [Moles/Vol] 106 mmol/L 98 - 10 7 mmol/L [facility] CO2 [Moles/Vol] 23 mmol/L 22 - 30 mmol/L [facility] Creatinine [Mass/Vol] 1.27 mg/dL High 0.66 - 1.25 mg/dL [facility] GFR/1.73 sq M.predicted MDRD (S/P/Bld) [Vol rate/Area] 54.7 mL/min/{1.73_m2} Low - PINF [facility] Comment on above: Calculation based on the Chronic Kidney Disease Epidemiology Collaboration (CKD-EPI) equation refit without adjustment for race Glucose [Mass/Vol] 232 mg/dL High 70 - 100 mg/dL [facility] Interpretation and review of laboratory results Abnormal [facility] Potassium [Moles/Vol] 4.6 mmol/L 3.5 - 5.1 mmol/L [facility] Protein [Mass/Vol] 7.3 g/dL 6.3 - 8.2 g/dL [facility] Sodium [Moles/Vol] 138 mmol/L 135 - 145 mmol/L [facility] Urea nitrogen [Mass/Vol] 42 mg/dL High 9 - 20 mg/d L [facility] Ferritin [Mass/Vol]on 2022 Interpretation and review of laboratory results Normal [facility] LDH Lactate to pyruvate reac tion [Catalytic activity/Vol]on 09-11-2023 Interpretation and review of laboratory results Normal [facility] Laboratory - Chemistry and C hemistry - challengeon 09-11-2023 Glucose [Mass/Vol] 203 mg/dL High 70 - 100 mg/dL [facility] CRP [Mass/Vol] 207.3 mg/L High NINF - 10.0 mg/L [facility] LDH Lactate to pyruvate reaction [Catalytic activity/Vol] 182 U/L 120 - 246 U/L [facility] Ferritin [Mass/Vol] 238 ng/mL 18 - 464 ng/mL [facility] CRP [Mass/Vol] 221.0 mg/L High NINF - 10.0 mg/L [facility] Glucose [Mass/Vol] 190 mg/dL High 70 - 100 mg/dL [facility] No Panel Informationon 09-11 Interpretation and review of laboratory results Abnormal [facility] Performed by: [facility] [place] [facility], [address] [facility] [address] CLIA ID: [id number] [facility] Interpretation and review of laboratory results Abnormal [facility] Performed by: [facility] [place] [facility], [address] [facility] [address] CLIA ID: [id number] [facility] Basic metabolic 1998 panelon 09-10-2023 Anion gap [Moles/Vol] 8 mmol/L 3 - 13 mmol/L [facility] Calcium [Mass/Vol] 8.4 mg/dL 8.4 - 10. 4 mg/dL [facility] Chloride [Moles/Vol] 102 mmol/L 98 - 10 7 mmol/L [facility] CO2 [Moles/Vol] 23 mmol/L 22 - 30 mmol/L [facility] Creatinine [Mass/Vol] 1.63 mg/dL High 0.66 - 1.25 mg/dL [facility] GFR/1.73 sq M.predicted MDRD (S/P/Bld) [Vol rate/Area] 40.5 mL/min/{1.73_m2} Low - PINF [facility] Comment on above: Calculation based on the Chronic Kidney Disease Epidemiology Collaboration (CKD-EPI) equation refit without adjustment for race Glucose [Mass/Vol] 289 mg/dL High 70 - 100 mg/dL [facility] Interpretation and review of laboratory results Abnormal [facility] Potassium [Moles/Vol] 4.2 mmol/L 3.5 - 5.1 mmol/L [facility] Sodium [Moles/Vol] 134 mmol/L Low 135 - 145 mmol/L [facility] Urea nitrogen [Mass/Vol] 50 mg/dL High 9 - 20 mg/d L [facility] CBC W Auto Differential pane l (Bld)Ordered By: Wilmar Salazar on 09-10-2023 Basophils (Bld) [#/Vol] 0.0 10*3/uL 0.0 - 0.2 10*3/uL [facility] Basophils/100 WBC (Bld) 0.2 % 0.0 - 2.0 % [facility] Eosinophils (Bld) [#/Vol] 0.0 10*3/uL 0.0 - 0.5 10*3/uL [facility] Eosinophils/100 WBC (Bld) 0.0 % Low 1.0 - 6.0 % [facility] Erythrocyte distribution width (RBC) [Ratio] 14.1 % 11.5 - 14.5 % [facility] Hematocrit (Bld) [Volume fraction] 36.7 % Low 40.0 - 52.0 % [facility] Hemoglobin (Bld) [Mass/Vol] 12.3 g/dL Low 13.0 - 18.0 g/dL [facility] Interpretation and review of laboratory results Abnormal [facility] Lymphocytes (Bld) [#/Vol] 0.5 10*3/uL Low 1.0 - 4.3 10*3/uL [facility] Lymphocytes/100 WBC (Bld) 13.3 % Low 20.0 - 40.0 % [facility] MCH (RBC) [Entitic mass] 29.9 pg 26. 0 - 34.0 pg [facility] MCHC (RBC) [Mass/Vol] 33.5 % 32.0 - 36.0 % [facility] MCV (RBC) [Entitic vol] 89.3 fL 80.0 - 98.0 fL [facility] Monocytes (Bld) [#/Vol] 0.1 10*3/uL 0.0 - 0.8 10*3/uL [facility] Monocytes/100 WBC (Bld) 3.5 % 2.0 - 10.0 % [facility] Neutrophils (Bld) [#/Vol] 2.9 10*3/uL 1.8 - 7.0 10*3/uL [facility] Neutrophils/100 WBC (Bld) 83.0 % High 40.0 - 80.0 % [facility] Nucleated RBC/100 WBC (Bld) [Ratio] 0.2 % [facility] Platelet mean volume (Bld) [Entitic vol] 9.2 fL 7.4 - 12.4 fL [facility] Platelets (Bld) [#/Vol] 99 10*3/uL Low 140 - 440 10*3/uL [facility] RBC (Bld) [#/Vol] 4.11 10*6/uL Low 4.40 - 5.9 0 10*6/uL [facility] WBC (Bld) [#/Vol] 3.5 10*3/uL Low 3.6 - 10.7 10*3/uL [facility] Laboratory - Chemistry and C hemistry - challengeon 09-10-2023 Lactate [Moles/Vol] 2.0 mmol/L 0.7 - 2. 0 mmol/L [facility] Laboratory - Microbiology an d Antimicrobial susceptibilityon 09-10-2023 FLUAV RNA LISANDRO+probe Ql (Resp) Not detected Not Detected [facility] FLUBV RNA LISANDRO+probe Ql (Resp) Not detected Not Detected [facility] RSV RNA LISANDRO+probe Ql (Resp) Not detected Not Detected [facility] SARS-CoV-2 (COVID-19) RNA LISANDRO+probe Ql (Resp) Detected Abnormal Not Detected [facility] SARS-CoV-2 (COVID-19) RNA LISANDRO+probe Ql (Unsp spec) Methodology: real-time, RT-PCR The SARS-CoV-2, Flu A/B, and RSV Combo assay is intended for in vitro diagnostic use under the FDA Emergency Use Authorization (EUA). This test has not been FDA cleared or approved. In compliance with this authorization, please visit www.fda.gov/media/53 3573/download or www.fda.gov/media/95 7201/download to access the applicable information sheets. [facility] [employer] No Panel InformationOrdered By: Jayden Briseno on 09-10-2023 P [place] 62 degrees [employer] Work Phone: MS Interval 158 ms [employer] Work Phone: QRS [place] 60 degrees [facility] [employer] Work Phone: QRSD Interval 83 ms [facility] [employer] Work Phone: QT Interval 333 ms [facility] [employer] Work Phone: QTC Interval 420 ms [facility] [employer] Work Phone: T Wave [place] 35 degrees [facility] [employer] Work Phone: [facility] Work Phone: No Panel Informationon 09-10 Sinus rhythm normal intervals st depressions laterally and inferioy Probable left atrial enlargement Anteroseptal infarct, age indeterminate Compared to ECG 01/17/2023 20:28:29 Myocardial infarct finding now present Ectopic atrial rhythm no longer present Electronically Signed On 09-10-2023 22:12:38 EST by Jayden Briseno CV Jayden Logan MD - 09/10/2023 IMPRESSION: Sinus rhythm normal intervals st depressions laterally and inferioy Probable left atrial enlargement Anteroseptal infarct, age indeterminate Compared to ECG 01/17/2023 20:28:29 Myocardial infarct finding now present Ectopic atrial rhythm no longer present Electronically Signed On 09-10-2023 22:12:38 EST by Jayden Briseno [facility] [employer] Interpretation and review of laboratory results Normal [facility] SARS-CoV-2, Flu A/B, and RSV Comboon 09-10-2023 Interpretation and review of laboratory results Abnormal [facility] Vital signsOrdered By: David Briseno on 09-10-2023 Heart rate 95 /min bpm [facility] [employer] Work Phone: XR Chest Single viewon 09-10 No acute process. Report Dictated on Electronically Signed By: Tal Patterson DO Electronically Signed Date/Time: 09/10/2023 12:29 PM EST [facility] [email or web address] [facility] 1935 [id number] Exam Date/Time: 09/10/2023 12:21 Procedure: XR CHEST 1 VIEW Ordering Provider: PHILLIPS JAY Reason For Exam: hypoxia PORTABLE CHEST: INDICATION: Hypoxia COMPARISON: 01/17/2023 Obtained at 1203 hours. A single portable AP radiograph of the chest was obtained. The heart is normal in size. The mediastinal silhouette is normal. The lungs are clear. There are no effusions or infiltrates. There is no pleural thickening. The osseous structures are unremarkable. [facility] Tal Patterson DO - 09/10/2023 Patient Name: TITA KEITH : 1935 [facility]#: [id number] Exam Date/Time: 09/10/2023 12:21 Procedure: XR CHEST 1 VIEW Ordering Provider: PHILLIPS JAY Reason For Exam: hypoxia PORTABLE CHEST: INDICATION: Hypoxia COMPARISON: 01/17/2023 Obtained at 1203 hours. A single portable AP radiograph of the chest was obtained. The heart is normal in size. The mediastinal silhouette is normal. The lungs are clear. There are no effusions or infiltrates. There is no pleural thickening. The osseous structures are unremarkable. IMPRESSION: No acute process. Report Dictated on Electronically Signed By: Tal Patterson DO Electronically Signed Date/Time: 09/10/2023 12:29 PM EST [facility] Radiology Study observation (narrative) [facility] XR Chest Single viewOrdered By: Tal Patterson on 09-10-2023 [facility] Work Phone: Laboratory - Chemistry and C hemistry - challengeon 01-26-2023 Glucose [Mass/Vol] 84 mg/dL 70 - 100 mg/dL [facility] No Panel Informationon 01-26 Interpretation and review of laboratory results Normal [facility] Performed by: [employer] [place] [facility], [address] [place] [address] CLIA ID: [id number] [facility] Laboratory - Chemistry and C hemistry - challengeon 01-25-2023 Glucose [Mass/Vol] 167 mg/dL High 70 - 100 mg/dL [facility] Glucose [Mass/Vol] 137 mg/dL High 70 - 100 mg/dL [facility] Glucose [Mass/Vol] 167 mg/dL High 70 - 100 mg/dL [facility] Glucose [Mass/Vol] 163 mg/dL High 70 - 100 mg/dL [facility] Glucose [Mass/Vol] 70 mg/dL 70 - 100 mg/dL [facility] No Panel Informationon 01-25 Interpretation and review of laboratory results Abnormal [facility] Performed by: [facility] [place] [facility], [address] [facility] [address] CLIA ID: [id number] [facility] Interpretation and review of laboratory results Abnormal [facility] Performed by: [facility], [address] [facility] [address] CLIA ID: [id number] [facility] Interpretation and review of laboratory results Abnormal [facility]formed by: [facility] [place] [facility], [address] [facility] [address] CLIA ID: [id number] [facility] Interpretation and review of laboratory results Abnormal [facility] Performed by: [facility], [address] [facility] [address] CLIA ID: [id number] [facility] Interpretation and review of laboratory results Normal [facility] Performed by: [facility], [address] [facility] [address] CLIA ID: [id number] [facility] Laboratory - Chemistry and C hemistry - challengeon 01-24-2023 Glucose [Mass/Vol] 203 mg/dL High 70 - 100 mg/dL [facility] Glucose [Mass/Vol] 129 mg/dL High 70 - 100 mg/dL [facility] Glucose [Mass/Vol] 248 mg/dL High 70 - 100 mg/dL [facility] Glucose [Mass/Vol] 120 mg/dL High 70 - 100 mg/dL [facility] Laboratory - Microbiology an d Antimicrobial susceptibilityOrdered By: Chelsey Muro on 01-24-2023 SARS-CoV-2 (COVID-19) Ag IA.rapid Ql (Resp) Negative Negative [facility] Comment on above: A negative result do es not rule out the possibility of SARS-CoV-2 infection. NAAT-based methods should be considered for symptomatic patients presenting greater than seven days after onset of symptoms. Method: Lateral flow immunoassay. Fact sheets for healthcare providers and patients can be found at the following sites: https://www.fda.gov/media/073452/download https://www.fda.gov/media/204633/download No Panel Informationon 01-24 Interpretation and review of laboratory results Abnormal [facility] Performed by: [facility], [address] [facility] [address] CLIA ID: [id number] [facility] Interpretation and review of laboratory results Abnormal [facility] Performed by: [facility], [address] [facility] [address] CLIA ID: [id number] [facility] Interpretation and review of laboratory results Abnormal [facility] Performed by: [facility] [place] [facility], [address] [facility] [address] CLIA ID: [id number] [facility] Interpretation and review of laboratory results Abnormal [facility] Performed by: [facility] [place] [facility], [address] [facility] [address] CLIA ID: [id number] [facility] SARS-CoV-2 (COVID-19) Ag IA. rapid Ql (Resp)Ordered By: Chelsye Muro on 01-24-2023 Interpretation and review of laboratory results Normal [facility] SARS-CoV-2 (COVID-19) RNA pa zabrina LISANDRO+probe (Resp)on 01-24-2023 Interpretation and review of laboratory results Normal [facility] SARS-CoV-2 (COVID-19) RNA LISANDRO+probe Ql (Resp) Not detected Not Detected [facility] SARS-CoV-2 (COVID-19) RNA LISANDRO+probe Ql (Unsp spec) Methodology: real-time, RT-PCR The SARS-CoV-2 assay is intended for in vitro diagnostic use under the FDA Emergency Use Authorization (EUA). This test has not been FDA cleared or approved. In compliance with this authorization, please visit www.fda.gov/media/ 8591/download or www.fda.gov/media/ 2941/download to access the applicable information sheets. [facility] Laboratory - Chemistry and C hemistry - challengeon 01-23-2023 Glucose [Mass/Vol] 288 mg/dL High 70 - 100 mg/dL [facility] Glucose [Mass/Vol] 122 mg/dL High 70 - 100 mg/dL [facility] Glucose [Mass/Vol] 230 mg/dL High 70 - 100 mg/dL [facility] Glucose [Mass/Vol] 168 mg/dL High 70 - 100 mg/dL [facility] No Panel Informationon 01-23 Interpretation and review of laboratory results Abnormal [facility] Performed by: [facility], [address] [facility] [address] CLIA ID: [id number] [facility] Interpretation and review of laboratory results Abnormal [facility] Performed by: [facility], [address] [facility] [address] CLIA ID: [id number] [facility] Interpretation and review of laboratory results Abnormal [facility] Performed by: [facility], [address] [facility] [address] CLIA ID: [id number] [facility] Interpretation and review of laboratory results Abnormal [facility] Performed by: [facility], [address] [facility] [address] CLIA ID: [id number] [facility] Laboratory - Chemistry and C hemistry - challengeon 01-22-2023 Glucose [Mass/Vol] 307 mg/dL High 70 - 100 mg/dL [facility] Glucose [Mass/Vol] 109 mg/dL High 70 - 100 mg/dL [facility] Glucose [Mass/Vol] 160 mg/dL High 70 - 100 mg/dL [facility] Glucose [Mass/Vol] 93 mg/dL 70 - 100 mg/dL [facility] Glucose [Mass/Vol] 83 mg/dL 70 - 100 mg/dL [facility] No Panel Informationon 01-22 Interpretation and review of laboratory results Abnormal [facility] Performed by: [facility], [address] [place] [address] CLIA ID: [id number] [facility] Interpretation and review of laboratory results Abnormal [facility] Performed by: [facility], [address] [place] [address], [facility] [address] CLIA ID: [id number] [facility] Interpretation and review of laboratory results Abnormal [facility] Performed by: [facility], [address] [place] [address] CLIA ID: [id number] [facility] Interpretation and review of laboratory results Normal [facility] Performed by: [facility], [address] [place] [address] CLIA ID: [id number] [facility] Interpretation and review of laboratory results Normal [facility] Performed by: [facility], [address] [place] [address] CLIA ID: [id number] [facility] RF videography Hypopharynx a nd Esophagus Views for swallowing function W speech and W barium contrast Viji 01-22-2023 1. Penetration and geovanny aspiration during the study. Please refer to the speech pathologist's report for additional details and recommendations. Report Dictated on Electronically Signed By: Christiano Stacy Electronically Signed Date/Time: 01/22/2023 10:44 AM EDT [facility] Patient Name: TITA KEITH : 1935 Exam Date/Time: 01/22/2023 10:25 Procedure: FL MODIFIED BARIUM WITH VIDEO AND SPEECH Ordering Provider: STOUT LISA Reason For Exam: Dysphagia CLINICAL INDICATION: Dysphagia. TECHNIQUE: Swallowing study was performed with fluoroscopic observation in association with the speech pathologist. The patient was observed to swallow barium mixtures of various consistencies with the patient in the sitting, lateral position. Videotape monitoring of the fluoroscopic procedure was performed along with digital radiographs. FLUOROSCOPY USED: Dose Ka,r = 23.55 mGy, 1.6 minutes, 10 cine run(s), and 0 fluoro spot(s) captured. FINDINGS: There is a slow oral phase. Note is made of significant pooling of material in the vallecula. Penetration and aspiration were visualized with both thin and thicker mixtures of barium. There was geovanny aspiration resulting in a cough. Residual pooling in the vallecula was also aspirated. [facility] Christiano Stacy MD - 01/22/2023 Patient Name: TITA KEITH : 1935 Exam Date/Time: 01/22/2023 10:25 Procedure: FL MODIFIED BARIUM WITH VIDEO AND SPEECH Ordering Provider: STOUT LISA Reason For Exam: Dysphagia CLINICAL INDICATION: Dysphagia. TECHNIQUE: Swallowing study was performed with fluoroscopic observation in association with the speech pathologist. The patient was observed to swallow barium mixtures of various consistencies with the patient in the sitting, lateral position. Videotape monitoring of the fluoroscopic procedure was performed along with digital radiographs. FLUOROSCOPY USED: Dose Ka,r = 23.55 mGy, 1.6 minutes, 10 cine run(s), and 0 fluoro spot(s) captured. FINDINGS: There is a slow oral phase. Note is made of significant pooling of material in the vallecula. Penetration and aspiration were visualized with both thin and thicker mixtures of barium. There was geovanny aspiration resulting in a cough. Residual pooling in the vallecula was also aspirated. IMPRESSION: 1. Penetration and geovanny aspiration during the study. Please refer to the speech pathologist's report for additional details and recommendations. Report Dictated on Electronically Signed By: Christiano Stacy Electronically Signed Date/Time: 01/22/2023 10:44 AM EDT [facility] Radiology Study observation (narrative) [facility] videography Hypopharynx a nd Esophagus Views for swallowing function W speech and W barium contrast POOrdered By: Christiano Stacy on 01-22-2023 [facility] Work Phone: Laboratory - Chemistry and C hemistry - challengeon 01-21-2023 Glucose [Mass/Vol] 66 mg/dL Low 70 - 100 mg/dL [facility] Glucose [Mass/Vol] 256 mg/dL High 70 - 100 mg/dL [facility] Glucose [Mass/Vol] 126 mg/dL High 70 - 100 mg/dL [facility] Glucose [Mass/Vol] 158 mg/dL High 70 - 100 mg/dL [facility] Glucose [Mass/Vol] 59 mg/dL Low 70 - 100 mg/dL [facility] Glucose [Mass/Vol] 52 mg/dL Low 70 - 100 mg/dL [facility] No Panel Informationon 01-21 Interpretation and review of laboratory results Abnormal [facility] Performed by: [facility], [address] [place] [address] CLIA ID: [id number] [facility] Interpretation and review of laboratory results Abnormal [facility] Performed by: [facility], [address] [facility] [address] CLIA ID: [id number] [facility] Interpretation and review of laboratory results Abnormal [facility] Performed by: [facility], [address] [facility] [address] CLIA ID: [id number] [facility] Interpretation and review of laboratory results Abnormal [facility] Performed by: [facility], [address] [facility] [address] CLIA ID: [id number] [facility] Interpretation and review of laboratory results Abnormal [facility] Performed by: [facility], [address] [facility] [address] CLIA ID: [id number] [facility] Interpretation and review of laboratory results Abnormal [facility] Performed by: [facility], [address] [facility] [address] CLIA ID: [id number] [facility] Basic metabolic 1998 panelon 01-20-2023 Anion gap [Moles/Vol] 5 mmol/L 3 - 13 mmol/L [facility] Calcium [Mass/Vol] 8.7 mg/dL 8.4 - 10. 4 mg/dL [facility] Chloride [Moles/Vol] 106 mmol/L 98 - 10 7 mmol/L [facility] CO2 [Moles/Vol] 26 mmol/L 22 - 30 mmol/L [facility] Creatinine [Mass/Vol] 1.02 mg/dL 0.66 - 1.25 mg/dL [facility] GFR/1.73 sq M.predicted MDRD (S/P/Bld) [Vol rate/Area] 71.1 mL/min/{1.73_m2} - PINF [facility] Comment on above: Calculation based on the Chronic Kidney Disease Epidemiology Collaboration (CKD-EPI) equation refit without adjustment for race Glucose [Mass/Vol] 75 mg/dL 70 - 100 mg/dL [facility] Interpretation and review of laboratory results Abnormal [facility] Potassium [Moles/Vol] 3.7 mmol/L 3.5 - 5.1 mmol/L [facility] Sodium [Moles/Vol] 137 mmol/L 135 - 145 mmol/L [facility] Urea nitrogen [Mass/Vol] 23 mg/dL High 9 - 20 mg/d L [facility] CBC W Auto Differential pane l (Bld)Ordered By: Davina Ramos on 01-20-2023 Basophils (Bld) [#/Vol] 0.0 10*3/uL 0.0 - 0.2 10*3/uL [facility] Basophils/100 WBC (Bld) 0.5 % 0.0 - 2.0 % [facility] Eosinophils (Bld) [#/Vol] 0.1 10*3/uL 0.0 - 0.5 10*3/uL [facility] Eosinophils/100 WBC (Bld) 0.6 % Low 1.0 - 6.0 % [facility] Erythrocyte distribution width (RBC) [Ratio] 12.9 % 11.5 - 14.5 % [facility] Hematocrit (Bld) [Volume fraction] 35.0 % Low 40.0 - 52.0 % [facility] Hemoglobin (Bld) [Mass/Vol] 12.0 g/dL Low 13.0 - 18.0 g/dL [facility] Interpretation and review of laboratory results Abnormal [facility] Lymphocytes (Bld) [#/Vol] 0.8 10*3/uL Low 1.0 - 4.3 10*3/uL [facility] Lymphocytes/100 WBC (Bld) 8.9 % Low 20.0 - 40.0 % [facility] MCH (RBC) [Entitic mass] 30.1 pg 26. 0 - 34.0 pg [facility] MCHC (RBC) [Mass/Vol] 34.1 % 32.0 - 36.0 % [facility] MCV (RBC) [Entitic vol] 88.3 fL 80.0 - 98.0 fL [facility] Monocytes (Bld) [#/Vol] 0.6 10*3/uL 0.0 - 0.8 10*3/uL [facility] Monocytes/100 WBC (Bld) 6.5 % 2.0 - 10.0 % [facility] Neutrophils (Bld) [#/Vol] 7.9 10*3/uL High 1.8 - 7.0 10*3/uL [facility] Neutrophils/100 WBC (Bld) 83.5 % High 40.0 - 80.0 % [facility] Nucleated RBC/100 WBC (Bld) [Ratio] 0.0 % [facility] Platelet mean volume (Bld) [Entitic vol] 9.1 fL 7.4 - 12.4 fL [facility] Platelets (Bld) [#/Vol] 366 10*3/uL 140 - 440 10*3/uL [facility] RBC (Bld) [#/Vol] 3.97 10*6/uL Low 4.40 - 5.9 0 10*6/uL [facility] WBC (Bld) [#/Vol] 9.4 10*3/uL 3.6 - 10.7 10*3/uL [facility] Laboratory - Chemistry and C hemistry - challengeon 01-20-2023 Glucose [Mass/Vol] 218 mg/dL High 70 - 100 mg/dL [facility] Glucose [Mass/Vol] 120 mg/dL High 70 - 100 mg/dL [facility] Glucose [Mass/Vol] 126 mg/dL High 70 - 100 mg/dL [facility] Glucose [Mass/Vol] 70 mg/dL 70 - 100 mg/dL [facility] No Panel Informationon 01-20 Interpretation and review of laboratory results Abnormal [facility]formed by: [facility], [address] [place] [address] CLIA ID: [id number] [facility] Interpretation and review of laboratory results Abnormal [facility] Performed by: [facility] [place] [facility], [address] [place] [address] CLIA ID: [id number] [facility] Interpretation and review of laboratory results Abnormal [facility] Performed by: [facility] [place] [facility], [address] [place] [address] CLIA ID: [id number] [facility] Interpretation and review of laboratory results Normal [facility] Performed by: [facility] [place] [facility], [address] [place] [address] CLIA ID: [id number] [facility] Basic metabolic 1998 panelon 01-19-2023 Anion gap [Moles/Vol] 3 mmol/L 3 - 13 mmol/L [facility] Calcium [Mass/Vol] 8.8 mg/dL 8.4 - 10. 4 mg/dL [facility] Chloride [Moles/Vol] 111 mmol/L High 98 - 10 7 mmol/L [facility] CO2 [Moles/Vol] 29 mmol/L 22 - 30 mmol/L [facility] Creatinine [Mass/Vol] 1.19 mg/dL 0.66 - 1.25 mg/dL [facility] GFR/1.73 sq M.predicted MDRD (S/P/Bld) [Vol rate/Area] 59.1 mL/min/{1.73_m2} Low - PINF [facility] Comment on above: Calculation based on the Chronic Kidney Disease Epidemiology Collaboration (CKD-EPI) equation refit without adjustment for race Glucose [Mass/Vol] 65 mg/dL Low 70 - 100 mg/dL [facility] Interpretation and review of laboratory results Abnormal [facility] Potassium [Moles/Vol] 3.9 mmol/L 3.5 - 5.1 mmol/L [facility] Sodium [Moles/Vol] 144 mmol/L 135 - 145 mmol/L [facility] Urea nitrogen [Mass/Vol] 34 mg/dL High 9 - 20 mg/d L [facility] CBC W Auto Differential pane l (Bld)on 01-19-2023 Basophils (Bld) [#/Vol] 0.0 10*3/uL 0.0 - 0.2 10*3/uL [facility] Basophils/100 WBC (Bld) 0.4 % 0.0 - 2.0 % [facility] Eosinophils (Bld) [#/Vol] 0.1 10*3/uL 0.0 - 0.5 10*3/uL [facility] Eosinophils/100 WBC (Bld) 1.0 % 1.0 - 6.0 % [facility] Erythrocyte distribution width (RBC) [Ratio] 13.2 % 11.5 - 14.5 % [facility] Hematocrit (Bld) [Volume fraction] 33.3 % Low 40.0 - 52.0 % [facility] Hemoglobin (Bld) [Mass/Vol] 11.2 g/dL Low 13.0 - 18.0 g/dL [facility] Interpretation and review of laboratory results Abnormal [facility] Lymphocytes (Bld) [#/Vol] 0.8 10*3/uL Low 1.0 - 4.3 10*3/uL [facility] Lymphocytes/100 WBC (Bld) 10.3 % Low 20.0 - 40.0 % [facility] MCH (RBC) [Entitic mass] 30.2 pg 26. 0 - 34.0 pg [facility] MCHC (RBC) [Mass/Vol] 33.8 % 32.0 - 36.0 % [facility] MCV (RBC) [Entitic vol] 89.5 fL 80.0 - 98.0 fL [facility] Monocytes (Bld) [#/Vol] 0.6 10*3/uL 0.0 - 0.8 10*3/uL [facility] Monocytes/100 WBC (Bld) 7.6 % 2.0 - 10.0 % [facility] Neutrophils (Bld) [#/Vol] 6.6 10*3/uL 1.8 - 7.0 10*3/uL [facility] Neutrophils/100 WBC (Bld) 80.7 % High 40.0 - 80.0 % [facility] Nucleated RBC/100 WBC (Bld) [Ratio] 0.0 % [facility] Platelet mean volume (Bld) [Entitic vol] 8.8 fL 7.4 - 12.4 fL [facility] Platelets (Bld) [#/Vol] 305 10*3/uL 140 - 440 10*3/uL [facility] RBC (Bld) [#/Vol] 3.72 10*6/uL Low 4.40 - 5.9 0 10*6/uL [facility] WBC (Bld) [#/Vol] 8.2 10*3/uL 3.6 - 10.7 10*3/uL [facility] Laboratory - Chemistry and C hemistry - challengeon 01-19-2023 Glucose [Mass/Vol] 119 mg/dL High 70 - 100 mg/dL [facility] Glucose [Mass/Vol] 91 mg/dL 70 - 100 mg/dL [facility] Glucose [Mass/Vol] 173 mg/dL High 70 - 100 mg/dL [facility] Glucose [Mass/Vol] 90 mg/dL 70 - 100 mg/dL [facility] Glucose [Mass/Vol] 68 mg/dL Low 70 - 100 mg/dL [facility] No Panel Informationon 01-19 Interpretation and review of laboratory results Abnormal [facility]formed by: [facility], [address] [facility] [address] CLIA ID: [id number] [facility] Interpretation and review of laboratory results Normal [facility] Performed by: [facility], [address] [facility] [address] CLIA ID: [id number] [facility] Interpretation and review of laboratory results Abnormal [facility] Performed by: [facility], [address] [facility] [address] CLIA ID: [id number] [facility] Interpretation and review of laboratory results Normal [facility] Performed by: [facility], [address] [facility] [address] CLIA ID: [id number] [facility] Interpretation and review of laboratory results Abnormal [facility]formed by: [facility], [address] [facility] [address] CLIA ID: [id number] [facility] Basic metabolic 1998 panelOr dered By: Osman Cadena on 01-18-2023 Anion gap [Moles/Vol] 4 mmol/L 3 - 13 mmol/L [facility] Calcium [Mass/Vol] 8.8 mg/dL 8.4 - 10. 4 mg/dL [facility] Chloride [Moles/Vol] 110 mmol/L High 98 - 10 7 mmol/L [facility] CO2 [Moles/Vol] 27 mmol/L 22 - 30 mmol/L [facility] Creatinine [Mass/Vol] 1.44 mg/dL High 0.66 - 1.25 mg/dL [facility] GFR/1.73 sq M.predicted MDRD (S/P/Bld) [Vol rate/Area] 47.0 mL/min/{1.73_m2} Low - PINF [facility] Comment on above: Calculation based on the Chronic Kidney Disease Epidemiology Collaboration (CKD-EPI) equation refit without adjustment for race Glucose [Mass/Vol] 94 mg/dL 70 - 100 mg/dL [facility] Interpretation and review of laboratory results Abnormal [facility] Potassium [Moles/Vol] 3.8 mmol/L 3.5 - 5.1 mmol/L [facility] Sodium [Moles/Vol] 141 mmol/L 135 - 145 mmol/L [facility] Urea nitrogen [Mass/Vol] 54 mg/dL High 9 - 20 mg/d L [facility] CBC W Auto Differential pane l (Bld)Ordered By: Waylon Fajardo on 01-18-2023 Basophils (Bld) [#/Vol] 0.0 10*3/uL 0.0 - 0.2 10*3/uL [facility] Basophils/100 WBC (Bld) 0.2 % 0.0 - 2.0 % [facility] Eosinophils (Bld) [#/Vol] 0.0 10*3/uL 0.0 - 0.5 10*3/uL [facility] Eosinophils/100 WBC (Bld) 0.3 % Low 1.0 - 6.0 % [facility] Erythrocyte distribution width (RBC) [Ratio] 12.9 % 11.5 - 14.5 % [facility] Hematocrit (Bld) [Volume fraction] 30.8 % Low 40.0 - 52.0 % [facility] Hemoglobin (Bld) [Mass/Vol] 10.6 g/dL Low 13.0 - 18.0 g/dL [facility] Interpretation and review of laboratory results Abnormal [facility] Lymphocytes (Bld) [#/Vol] 0.7 10*3/uL Low 1.0 - 4.3 10*3/uL [facility] Lymphocytes/100 WBC (Bld) 7.3 % Low 20.0 - 40.0 % [facility] MCH (RBC) [Entitic mass] 30.8 pg 26. 0 - 34.0 pg [facility] MCHC (RBC) [Mass/Vol] 34.5 % 32.0 - 36.0 % [facility] MCV (RBC) [Entitic vol] 89.2 fL 80.0 - 98.0 fL [facility] Monocytes (Bld) [#/Vol] 0.7 10*3/uL 0.0 - 0.8 10*3/uL [facility] Monocytes/100 WBC (Bld) 7.4 % 2.0 - 10.0 % [facility] Neutrophils (Bld) [#/Vol] 7.8 10*3/uL High 1.8 - 7.0 10*3/uL [facility] Neutrophils/100 WBC (Bld) 84.8 % High 40.0 - 80.0 % [facility] Nucleated RBC/100 WBC (Bld) [Ratio] 0.0 % [facility] Platelet mean volume (Bld) [Entitic vol] 9.4 fL 7.4 - 12.4 fL [facility] Platelets (Bld) [#/Vol] 289 10*3/uL 140 - 440 10*3/uL [facility] RBC (Bld) [#/Vol] 3.45 10*6/uL Low 4.40 - 5.9 0 10*6/uL [facility] WBC (Bld) [#/Vol] 9.2 10*3/uL 3.6 - 10.7 10*3/uL [facility] HbA1c (Bld) [Mass fraction]o n 01-18-2023 Glucose [Mass/Vol] 200 mg/dL [facility] HbA1c (Bld) [Mass/Vol] 8.6 % High NINF - 5.7 % [facility] Comment on above: Normal less than 5.7 % Prediabetes 5.7% to 6.4% Diabetes 6.5% or higher --HgbA1C levels may not be accurate in patients who have renal disease, received recent blood transfusions, are anemic, or who have dyshemoglobinemia. Interpretation and review of laboratory results Abnormal [facility] Laboratory - Chemistry and C hemistry - challengeon 01-18-2023 Glucose [Mass/Vol] 202 mg/dL High 70 - 100 mg/dL [facility] Procalcitonin [Mass/Vol] 0.26 ng/mL High 0.0 0 - 0.09 ng/mL [facility] Glucose [Mass/Vol] 74 mg/dL 70 - 100 mg/dL [facility] Glucose [Mass/Vol] 210 mg/dL High 70 - 100 mg/dL [facility] Glucose [Mass/Vol] 139 mg/dL High 70 - 100 mg/dL [facility] Glucose [Mass/Vol] 99 mg/dL 70 - 100 mg/dL [facility] No Panel Informationon 01-18 Interpretation and review of laboratory results Abnormal [facility] Performed by: [facility], [address] [place] [id number] CLIA ID: [id number] [facility] Interpretation and review of laboratory results Normal [facility] Performed by: [facility], [address] [place] [id number] CLIA ID: [id number] [facility] Interpretation and review of laboratory results Abnormal [facility] Performed by: [facility], [address] [facility] [address] CLIA ID: [id number] [facility] Interpretation and review of laboratory results Abnormal [facility] Performed by: [facility], [address] [facility] [address] CLIA ID: [id number] [facility] Interpretation and review of laboratory results Normal [facility] Performed by: [facility], [address] [facility] [address] CLIA ID: [id number] [facility] Procalcitonin [Mass/Vol]on 01-18-2023 Interpretation and review of laboratory results Abnormal [facility] PCT <0.50 = Low risk of severe sepsis and/or septic shock. PCT >2.00 = High risk of severe sepsis and/or septic shock. [facility] CBC W Auto Differential pane l (Bld)Ordered By: Sania Grigsby on 01-17-2023 Basophils (Bld) [#/Vol] 0.0 10*3/uL 0.0 - 0.2 10*3/uL [facility] Basophils/100 WBC (Bld) 0.5 % 0.0 - 2.0 % [facility] Eosinophils (Bld) [#/Vol] 0.1 10*3/uL 0.0 - 0.5 10*3/uL [facility] Eosinophils/100 WBC (Bld) 0.6 % Low 1.0 - 6.0 % [facility] Erythrocyte distribution width (RBC) [Ratio] 13.4 % 11.5 - 14.5 % [facility] Hematocrit (Bld) [Volume fraction] 33.3 % Low 40.0 - 52.0 % [facility] Hemoglobin (Bld) [Mass/Vol] 11.0 g/dL Low 13.0 - 18.0 g/dL [facility] Lymphocytes (Bld) [#/Vol] 0.9 10*3/uL Low 1.0 - 4.3 10*3/uL [facility] Lymphocytes/100 WBC (Bld) 10.0 % Low 20.0 - 40.0 % [facility] MCH (RBC) [Entitic mass] 29.8 pg 26. 0 - 34.0 pg [facility] MCHC (RBC) [Mass/Vol] 33.2 % 32.0 - 36.0 % [facility] MCV (RBC) [Entitic vol] 89.7 fL 80.0 - 98.0 fL [facility] Monocytes (Bld) [#/Vol] 0.6 10*3/uL 0.0 - 0.8 10*3/uL [employer] Monocytes/100 WBC (Bld) 6.9 % 2.0 - 10.0 % [employer] Neutrophils (Bld) [#/Vol] 7.3 10*3/uL High 1.8 - 7.0 10*3/uL [employer] Neutrophils/100 WBC (Bld) 82.0 % High 40.0 - 80.0 % [employer] Nucleated RBC/100 WBC (Bld) [Ratio] 0.2 % [employer] Platelet mean volume (Bld) [Entitic vol] 9.9 fL 7.4 - 12.4 fL [employer] Platelets (Bld) [#/Vol] 296 10*3/uL 140 - 440 10*3/uL [employer] Comment on above: Occasional fibrin st rands noted on smear, no clot detected in tube, may affect platelet count, suggest repeat draw RBC (Bld) [#/Vol] 3.71 10*6/uL Low 4.40 - 5.9 0 10*6/uL [employer] WBC (Bld) [#/Vol] 8.9 10*3/uL 3.6 - 10.7 10*3/uL [facility] CT Head WO contraston 2022 1. No acute intracranial process. 2. Global volume loss with small vessel ischemia. Report Dictated on Electronically Signed By: Iman Arriaga Electronically Signed Date/Time: 01/17/2023 8:59 PM [facility] RADIOLOGY SYSTEM Patient Name: TITA KEITH : 1935 [facility]#: [id number] Exam Date/Time: 01/17/2023 20:43 Procedure: CT HEAD WO IV CONTRAST Ordering Provider: GHOSH JOSEPH Reason For Exam: Mental status change, unknown cause CT HEAD: Clinical Indication: 87-year-old. Mental status change. Difficulty ambulating and difficulty swallowing. Imaging Technique: Multiple axial 3mm CT images of the head were obtained from the skull base to the vertex. Coronal and sagittal reconstructs were rendered. Dose reduction was employed with automated exposure control. Comparison: 01/05/2023 FINDINGS: No intracranial hemorrhage. No extra-axial fluid collection. Atherosclerotic changes are present. Global volume loss with commensurate ventricular dilatation, similar to prior imaging. Periventricular and subcortical areas of low attenuation representing small vessel ischemia. The osseous structures are intact. The globes are symmetric. The sinuses are pneumatized. [facility] RADIOLOGY SYSTEM Iman Arriaga MD - 01/17/2023 [facility] 1935 [id number] Exam Date/Time: 01/17/2023 20:43 Procedure: CT HEAD WO IV CONTRAST Ordering Provider: GHOSH JOSEPH Reason For Exam: Mental status change, unknown cause CT HEAD: Clinical Indication: 87-year-old. Mental status change. Difficulty ambulating and difficulty swallowing. Imaging Technique: Multiple axial 3mm CT images of the head were obtained from the skull base to the vertex. Coronal and sagittal reconstructs were rendered. Dose reduction was employed with automated exposure control. Comparison: 01/05/2023 FINDINGS: No intracranial hemorrhage. No extra-axial fluid collection. Atherosclerotic changes are present. Global volume loss with commensurate ventricular dilatation, similar to prior imaging. Periventricular and subcortical areas of low attenuation representing small vessel ischemia. The osseous structures are intact. The globes are symmetric. The sinuses are pneumatized. IMPRESSION: 1. No acute intracranial process. 2. Global volume loss with small vessel ischemia. Report Dictated on Electronically Signed By: Iman Arriaga Electronically Signed Date/Time: 01/17/2023 8:59 PM EDT [facility] Radiology Study observation (narrative) [facility] CT Head WO contrastOrdered B y: Iman Arriaga on 01-17-2023 [facility] [employer] Work Phone: Comprehensive metabolic 1998 panelOrdered By: Alexey Jackson on 01-17-2023 Albumin [Mass/Vol] 3.2 g/dL Low 3.5 - 5.0 g/dL [facility] ALP [Catalytic activity/Vol] 103 U/L 38 - 126 U/L [facility] ALT [Catalytic activity/Vol] 31 U/L 0 - 49 U/L [facility] Anion gap [Moles/Vol] 4 mmol/L 3 - 13 mmol/L [facility] AST [Catalytic activity/Vol] 45 U/L 15 - 46 U/L [facility] Bilirubin [Mass/Vol] 0.6 mg/dL 0.2 - 1 .3 mg/dL [facility] Calcium [Mass/Vol] 8.7 mg/dL 8.4 - 10. 4 mg/dL [facility] Chloride [Moles/Vol] 99 mmol/L 98 - 10 7 mmol/L [facility] CO2 [Moles/Vol] 28 mmol/L 22 - 30 mmol/L [facility] Creatinine [Mass/Vol] 1.77 mg/dL High 0.66 - 1.25 mg/dL [facility] GFR/1.73 sq M.predicted MDRD (S/P/Bld) [Vol rate/Area] 36.7 mL/min/{1.73_m2} Low - PINF [facility] Comment on above: Calculation based on the Chronic Kidney Disease Epidemiology Collaboration (CKD-EPI) equation refit without adjustment for race Glucose [Mass/Vol] 533 mg/dL Critically high 70 - 1 00 mg/dL [facility] Interpretation and review of laboratory results Abnormal [facility] Potassium [Moles/Vol] 5.4 mmol/L High 3.5 - 5.1 mmol/L [facility] Protein [Mass/Vol] 6.6 g/dL 6.3 - 8.2 g/dL [facility] Sodium [Moles/Vol] 131 mmol/L Low 135 - 145 mmol/L [facility] Urea nitrogen [Mass/Vol] 68 mg/dL High 9 - 20 mg/d L [facility] Specimen slightly hemolyzed please interpret with caution [facility] Laboratory - Chemistry and C hemistry - challengeon 01-17-2023 Lactate [Moles/Vol] 1.6 mmol/L 0.7 - 2. 0 mmol/L [facility] Base excess Calc (BldV) [Moles/Vol] 2.6 mmol/L -3 - 3 mmol/L [facility] CO2 (BldV) [Partial pressure] 48.8 mm[Hg] [facility] CO2 [Moles/Vol] 29.9 mmol/L High 24.0 - 28.0 mmol/L [facility] HCO3 (Bld) [Moles/Vol] 28.4 mmol/L High 23.0 - 27.0 mmol/L [facility] Oxygen (BldV) [Partial pressure] Low [facility] pH (BldV) 7.373 [pH] 7.330 - 7.430 pH [facility] Troponin I.cardiac [Mass/Vol] 0.016 ng/mL 0.000 - 0.034 ng/mL [facility] Beta hydroxybutyrate [Mass/Vol] 1.16 mg/dL 0.20 - 2.81 mg/dL [facility] Lipase [Catalytic activity/Vol] 86 U/L 23 - 300 U/L [facility] Glucose [Mass/Vol] mg/dL High 70 - 100 mg/dL [facility] Comment on above: Confirmation Drawn; Lipase [Catalytic activity/V ol]on 01-17-2023 Interpretation and review of laboratory results Normal [facility] Manual differential performe d Ql (Bld)on 01-17-2023 [place] cells LM Ql (Bld) Slight Abnormal (none) [facility] Leukocyte morphology finding Nom (Bld) Normal [facility] Ovalocytes LM Ql (Bld) Slight Abnormal (none) [facility] Platelet morphology finding Nom (Bld) Normal [facility] Polychromasia LM Ql (Bld) Rare Abnormal (none) [facility] WBC corrected for nucl RBC (Bld) [#/Vol] 8.90 10*3/uL 3.60 - 10.70 10*3/uL [facility] No Panel Informationon 01-17 P [place] -45 degrees [facility] MS Interval 136 ms [facility] QRS [place] 64 degrees [facility] QRSD Interval 84 ms [facility] QT Interval 372 ms [facility] QTC Interval 424 ms [facility] T Wave [place] 46 degrees [facility] SINUS OR ECTOPIC ATRIAL RHYTHM BASELINE WANDER IN LEAD(S) V3 Compared to ECG 01/05/2023 01:08:08 Ectopic atrial rhythm now present Sinus rhythm no longer present Electronically Signed On 01-17-2023 23:24:28 EDT by Karel Lees, - 01/17/2023 IMPRESSION: SINUS OR ECTOPIC ATRIAL RHYTHM BASELINE WANDER IN LEAD(S) V3 Compared to ECG 01/05/2023 01:08:08 Ectopic atrial rhythm now present Sinus rhythm no longer present Electronically Signed On 01-17-2023 23:24:28 EDT by Karel Ghosh [facility] Interpretation and review of laboratory results Normal [facility] FIO2 21 [facility] Comment on above: Performed by CLIA ID : [id number] [facility], [place], [place] ?Device: [id number] Custodial Engineer ID: [id number] Interpretation and review of laboratory results Abnormal [facility]formed by: [facility], [address] [place] [address] CLIA ID: [id number] [facility] Interpretation and review of laboratory results Normal [facility] Interpretation and review of laboratory results Abnormal [facility] Performed by: [facility], [address] [place] [address] CLIA ID: [id number] [facility] No Panel InformationOrdered By: Sania Grigsby on 01-17-2023 Interpretation and review of laboratory results Abnormal [facility] Troponin I.cardiac [Mass/Vol ]on 01-17-2023 Interpretation and review of laboratory results Normal [facility] Patients with high levels of Biotin oral intake (ie >5 mg/day) may have falsely decreased Troponin levels. [facility] Urinalysis complete panel (U )Ordered By: Lilian Mata on 01-17-2023 Amorphous Crystals, Urine Few Abnormal Negative /HPF [facility] Bacteria LM.HPF (Urine sed) [#/Area] Few Abnormal Negative /HPF [facility] Bilirubin Ql (U) Negative Negative mg/dL [facility] Clarity (U) Clear Clear [facility] Color (U) Light Yellow Lt. Yellow [facility] Epithelial cells.squamous LM.HPF (Urine sed) [#/Area] 0-[facility]l (U) >1,000 Abnormal Normal (<70) mg/dL [facility] Hemoglobin Ql (U) Negative Negative mg/dL [facility] Hyaline casts Auto (Urine sed) [#/Area] 0-2 Abnormal Negative /LPF [facility] Interpretation and review of laboratory results Abnormal [facility] Ketones (U) [Mass/Vol] Negative Negat kate mg/dL [facility] Leukocyte esterase Test strip Ql (U) Negative Negative [place]/uL [facility] Mucus LM.HPF (Urine sed) [#/Area] Few Negative /LPF [facility] Nitrite Ql (U) Negative Negative [facility] Non-Squamous Epithalial Cells, Urine 0-2 Abnormal Negative /HPF [facility] pH (U) 5.0 [pH] 5.0 - 8.0 pH [facility] Protein (U) [Mass/Vol] 10 mg/dL Abnormal Negative [facility] RBC LM.HPF (Urine sed) [#/Area] 0-2 [facility] Specific gravity (U) [Rel density] 1.020 1.005 - 1.030 [facility] Urobilinogen (U) [Mass/Vol] Normal Normal (0-1) mg/dL [facility] WBC LM.HPF (Urine sed) [#/Area] 0-2 [facility] Vital signson 01-17-2023 Heart rate 78 /min bpm [facility] Oxygen saturation in Venous blood 35.0 % Low 60.0 - 80.0 % [facility] XR Chest Single viewon 01-17 No acute cardiopulmonary process identified. Report Dictated on Electronically Signed By: Deniz Kelly Electronically Signed Date/Time: 01/17/2023 9:00 PM EDT [facility] [email or web address] Patient Name: TITA KEITH : 1935 Exam Date/Time: 01/17/2023 20:48 Procedure: XR CHEST 1 VIEW Ordering Provider: GHOSH JOSEPH Reason For Exam: weakness CHEST X-RAY CLINICAL INDICATION: weakness TECHNIQUE: Portable AP COMPARISON: 01/05/2023 FINDINGS: Quality: Exam quality: EKG leads obscure small portions of the chest. Lines: None Cardiomediastinal Silhouette: The heart demonstrates normal size. Calcification of the thoracic aorta is noted. Lungs: Chronic interstitial lung markings are observed. Otherwise, no focal consolidation.No evidence of pleural effusion or pneumothorax. Soft tissue: The soft tissue structures appear unremarkable. Bones: No acute osseous process identified. [facility] [email or web address] Deniz Kelly MD - 01/17/2023 Patient Name: TITA KEITH : 1935 [facility]#: [id number] Exam Date/Time: 01/17/2023 20:48 Procedure: XR CHEST 1 VIEW Ordering Provider: GHOSH JOSEPH Reason For Exam: weakness CHEST X-RAY CLINICAL INDICATION: weakness TECHNIQUE: Portable AP COMPARISON: 01/05/2023 FINDINGS: Quality: Exam quality: EKG leads obscure small portions of the chest. Lines: None Cardiomediastinal Silhouette: The heart demonstrates normal size. Calcification of the thoracic aorta is noted. Lungs: Chronic interstitial lung markings are observed. Otherwise, no focal consolidation.No evidence of pleural effusion or pneumothorax. Soft tissue: The soft tissue structures appear unremarkable. Bones: No acute osseous process identified. IMPRESSION: No acute cardiopulmonary process identified. Report Dictated on Electronically Signed By: Deniz Kelly Electronically Signed Date/Time: 01/17/2023 9:00 PM EDT [facility] [employer] Radiology Study observation (narrative) [facility] XR Chest Single viewOrdered By: Deniz Kelly on 01-17-2023 [employer] Work Phone: Basic metabolic 1998 panelon 01-05-2023 Anion gap [Moles/Vol] 2 mmol/L Low 3 - 13 mmol/L [facility] [employer] Calcium [Mass/Vol] 8.4 mg/dL 8.4 - 10. 4 mg/dL [facility] [employer] Chloride [Moles/Vol] 105 mmol/L 98 - 10 7 mmol/L [facility] [employer] CO2 [Moles/Vol] 29 mmol/L 22 - 30 mmol/L [facility] [employer] Creatinine [Mass/Vol] 1.23 mg/dL 0.66 - 1.25 mg/dL [facility] [employer] GFR/1.73 sq M.predicted MDRD (S/P/Bld) [Vol rate/Area] 56.8 mL/min/{1.73_m2} Low - PINF [facility] [employer] Comment on above: Calculation based on the Chronic Kidney Disease Epidemiology Collaboration (CKD-EPI) equation refit without adjustment for race Glucose [Mass/Vol] 127 mg/dL High 70 - 100 mg/dL [facility] [employer] Interpretation and review of laboratory results Abnormal [facility] [employer] Potassium [Moles/Vol] 4.0 mmol/L 3.5 - 5.1 mmol/L [facility] Sodium [Moles/Vol] 136 mmol/L 135 - 145 mmol/L [facility] Urea nitrogen [Mass/Vol] 35 mg/dL High 9 - 20 mg/d L [facility] CBC panel Auto (Bld)Ordered By: Chad Navarro on 01-05-2023 Erythrocyte distribution width (RBC) [Ratio] 12.4 % 11.5 - 14.5 % [facility] Hematocrit (Bld) [Volume fraction] 36.7 % Low 40.0 - 52.0 % [facility] Hemoglobin (Bld) [Mass/Vol] 12.6 g/dL Low 13.0 - 18.0 g/dL [facility] Interpretation and review of laboratory results Abnormal [facility] MCH (RBC) [Entitic mass] 31.2 pg 26. 0 - 34.0 pg [facility] MCHC (RBC) [Mass/Vol] 34.3 % 32.0 - 36.0 % [facility] MCV (RBC) [Entitic vol] 90.8 fL 80.0 - 98.0 fL [facility] Platelet mean volume (Bld) [Entitic vol] 10.4 fL 7.4 - 12.4 fL [facility] Comment on above: MPV is a calculated measurement using platelet volume ratio Platelets (Bld) [#/Vol] 141 10*3/uL 140 - 440 10*3/uL [facility] RBC (Bld) [#/Vol] 4.04 10*6/uL Low 4.40 - 5.9 0 10*6/uL [facility] WBC (Bld) [#/Vol] 9.6 10*3/uL 3.6 - 10.7 10*3/uL [facility] CT Cervical spine WO contras ton 01-05-2023 No cervical spine fracture. Report Dictated on Electronically Signed By: Otf Gutierrez Electronically Signed Date/Time: 01/05/2023 2:19 AM [facility] RADIOLOGY SYSTEM Patient Name: TITA KEITH : 1935 Exam Date/Time: 01/05/2023 01:57 Procedure: CT CERVICAL SPINE WO IV CONTRAST Ordering Provider: MISHRA NICHOLAS Reason For Exam: ground level fall, head injury CT CERVICAL SPINE: CLINICAL INDICATION: Neck pain, trauma TECHNIQUE: Transaxial sequence through the cervical spine. Coronal and sagittal reconstructions included. COMPARISON: None FINDINGS: There is normal cervical lordosis. No prevertebral soft tissue swelling. Craniocervical and atlantoaxial articulations are intact. Predental interval is not widened. Vertebral body heights are maintained. No cervical spine fracture. No spondylolisthesis. There are multilevel degenerative changes of the cervical spine with intervertebral disc space narrowing, endplate osteophytes, and uncovertebral and facet joint hypertrophy, most pronounced at C5-C6 and C6-C7. No high-grade osseous encroachment of the central canal or neural foramina. Imaged neck soft tissues and lung apices are unremarkable. [facility]IOLOGY SYSTEM Otf Gutierrez MD - 01/05/2023 Patient Name: TITA KEITH : 1935 Exam Date/Time: 01/05/2023 01:57 Procedure: CT CERVICAL SPINE WO IV CONTRAST Ordering Provider: MISHRA NICHOLAS Reason For Exam: ground level fall, head injury CT CERVICAL SPINE: CLINICAL INDICATION: Neck pain, trauma TECHNIQUE: Transaxial sequence through the cervical spine. Coronal and sagittal reconstructions included. COMPARISON: None FINDINGS: There is normal cervical lordosis. No prevertebral soft tissue swelling. Craniocervical and atlantoaxial articulations are intact. Predental interval is not widened. Vertebral body heights are maintained. No cervical spine fracture. No spondylolisthesis. There are multilevel degenerative changes of the cervical spine with intervertebral disc space narrowing, endplate osteophytes, and uncovertebral and facet joint hypertrophy, most pronounced at C5-C6 and C6-C7. No high-grade osseous encroachment of the central canal or neural foramina. Imaged neck soft tissues and lung apices are unremarkable. IMPRESSION: No cervical spine fracture. Report Dictated on Electronically Signed By: Otf Gutierrez Electronically Signed Date/Time: 01/05/2023 2:19 AM EDT [facility] Radiology Study observation (narrative) [facility] CT Head WO contraston 2022 No acute intracranial hemorrhage or mass effect. Report Dictated on Electronically Signed By: Otf Gutierrez Electronically Signed Date/Time: 01/05/2023 2:17 AM EDT [facility] Patient Name: TITA KEITH : 1935 Exam Date/Time: 01/05/2023 01:57 Procedure: CT HEAD WO IV CONTRAST Ordering Provider: MISHRA NICHOLAS Reason For Exam: ground level fall, head injury CT HEAD: CLINICAL INDICATION: Fall, head injury TECHNIQUE: Transaxial CT sequence performed through the head with 3 mm reconstruction. Sagittal and Coronal reconstruction images included. COMPARISON: None FINDINGS: Ventricles and sulci are prominent, consistent with age-related cerebral volume loss. There are scattered foci of hypoattenuation in the periventricular and subcortical white matter, which is nonspecific, but commonly seen with chronic small vessel ischemia. No extra-axial collection. No acute intracranial hemorrhage. No mass effect or midline shift. No CT evidence of an acute large territorial infarction. Vascular calcifications noted at the skull base. Imaged paranasal sinuses and mastoid air cells are well aerated. Calvarium is unremarkable. [facility] Otf Gutierrez MD - 01/05/2023 Patient Name: TITA KEITH : 1935 Exam Date/Time: 01/05/2023 01:57 Procedure: CT HEAD WO IV CONTRAST Ordering Provider: MISHRA NICHOLAS Reason For Exam: ground level fall, head injury CT HEAD: CLINICAL INDICATION: Fall, head injury TECHNIQUE: Transaxial CT sequence performed through the head with 3 mm reconstruction. Sagittal and Coronal reconstruction images included. COMPARISON: None FINDINGS: Ventricles and sulci are prominent, consistent with age-related cerebral volume loss. There are scattered foci of hypoattenuation in the periventricular and subcortical white matter, which is nonspecific, but commonly seen with chronic small vessel ischemia. No extra-axial collection. No acute intracranial hemorrhage. No mass effect or midline shift. No CT evidence of an acute large territorial infarction. Vascular calcifications noted at the skull base. Imaged paranasal sinuses and mastoid air cells are well aerated. Calvarium is unremarkable. IMPRESSION: No acute intracranial hemorrhage or mass effect. Report Dictated on Electronically Signed By: Otf Gutierrez Electronically Signed Date/Time: 01/05/2023 2:17 AM EDT [facility] Radiology Study observation (narrative) [facility] Comprehensive metabolic 1998 panelon 01-05-2023 Albumin [Mass/Vol] 4.2 g/dL 3.5 - 5.0 g/dL [facility] ALP [Catalytic activity/Vol] 107 U/L 38 - 126 U/L [facility] ALT [Catalytic activity/Vol] 19 U/L 0 - 49 U/L [facility] Anion gap [Moles/Vol] 4 mmol/L 3 - 13 mmol/L [facility] AST [Catalytic activity/Vol] 26 U/L 15 - 46 U/L [facility] Bilirubin [Mass/Vol] 0.7 mg/dL 0.2 - 1 .3 mg/dL [facility] Calcium [Mass/Vol] 9.5 mg/dL 8.4 - 10. 4 mg/dL [facility] Chloride [Moles/Vol] 104 mmol/L 98 - 10 7 mmol/L [facility] CO2 [Moles/Vol] 32 mmol/L High 22 - 30 mmol/L [facility] Creatinine [Mass/Vol] 1.35 mg/dL High 0.66 - 1.25 mg/dL [facility] GFR/1.73 sq M.predicted MDRD (S/P/Bld) [Vol rate/Area] 50.8 mL/min/{1.73_m2} Low - PINF [facility] Comment on above: Calculation based on the Chronic Kidney Disease Epidemiology Collaboration (CKD-EPI) equation refit without adjustment for race Glucose [Mass/Vol] 141 mg/dL High 70 - 100 mg/dL [facility] Interpretation and review of laboratory results Abnormal [facility] Potassium [Moles/Vol] 5.3 mmol/L High 3.5 - 5.1 mmol/L [facility] Protein [Mass/Vol] 7.5 g/dL 6.3 - 8.2 g/dL [facility] Sodium [Moles/Vol] 139 mmol/L 135 - 145 mmol/L [facility] Urea nitrogen [Mass/Vol] 38 mg/dL High 9 - 20 mg/d L [facility] Laboratory - Chemistry and C hemistry - challengeon 01-05-2023 Troponin I.cardiac [Mass/Vol] ng/mL 0.000 - 0.034 ng/mL [facility] No Panel Informationon 01-05 P [place] degrees [facility] MS Interval 183 ms [facility] QRS [place] 70 degrees [facility] QRSD Interval 88 ms [facility] QT Interval 330 ms [facility] QTC Interval 400 ms [facility] T Wave [place] 57 degrees [facility] SINUS RHYTHM Electronically Signed On 01-05-2023 1:26:20 EDT by Kee Mishra CV Kee Asencio MD - 01/05/2023 IMPRESSION: SINUS RHYTHM Electronically Signed On 01-05-2023 1:26:20 EDT by Kee Mishra [facility] Troponin I.cardiac [Mass/Vol ]on 01-05-2023 Interpretation and review of laboratory results Normal [facility] Patients with high levels of Biotin oral intake (ie >5 mg/day) may have falsely decreased Troponin levels. [facility] Vital signson 01-05-2023 Heart rate 88 /min bpm [facility] XR Chest Single viewon 01-05 No focal consolidation or pulmonary edema. Report Dictated on Electronically Signed By: Otf Gutierrez Electronically Signed Date/Time: 01/05/2023 2:13 AM EDT [employer] SYSTEM [facility]: [facility]ITA [facility] : 1935 [id number] Exam Date/Time: 01/05/2023 01:56 Procedure: XR CHEST 1 VIEW Ordering Provider: MISHRA NICHOLAS Reason For Exam: TRAUMA PORTABLE CHEST CLINICAL INDICATION: Chest pain, trauma TECHNIQUE: Portable AP COMPARISON: None FINDINGS: No focal consolidation or pulmonary edema. No pleural effusions or pneumothorax. The cardiac and mediastinal silhouettes are normal. Degenerative change of the thoracic spine is noted. [facility] Otf Gutierrez MD - 01/05/2023 Patient Name: TITA KEITH : 1935 Exam Date/Time: 01/05/2023 01:56 Procedure: XR CHEST 1 VIEW Ordering Provider: MISHRA NICHOLAS Reason For Exam: TRAUMA PORTABLE CHEST CLINICAL INDICATION: Chest pain, trauma TECHNIQUE: Portable AP COMPARISON: None FINDINGS: No focal consolidation or pulmonary edema. No pleural effusions or pneumothorax. The cardiac and mediastinal silhouettes are normal. Degenerative change of the thoracic spine is noted. IMPRESSION: No focal consolidation or pulmonary edema. Report Dictated on Electronically Signed By: Otf Gutierrez Electronically Signed Date/Time: 01/05/2023 2:13 AM EDT [facility] Radiology Study observation (narrative) [facility] XR Chest Single viewOrdered By: Otf Gutierrez on 01-05-2023 [facility] [employer] Work Phone: XR Hip - right 3 Viewson No fracture or dislocation. Report Dictated on Electronically Signed By: Otf Gutierrez Electronically Signed Date/Time: 01/05/2023 2:14 AM EDT [employer] SYSTEM Patient Name: TITA KEITH : 1935 Exam Date/Time: 01/05/2023 01:56 Procedure: XR HIP 2 OR 3 VW RIGHT Ordering Provider: MISHRA NICHOLAS Reason For Exam: fall, right hip pain PELVIS AND RIGHT HIP: CLINICAL INDICATION: Fall, right hip pain. TECHNIQUE: AP pelvis plus AP and lateral views of the right hip COMPARISON: None. FINDINGS: There is no evidence for fracture or dislocation. The hips joints are unremarkable. The sacroiliac joints are normal. No bone lesion is identified. There is no soft tissue abnormality. [facility] RADIOLOGY SYSTEM Otf Gutierrez MD - 01/05/2023 Patient Name: TITA KEITH : 1935 Exam Date/Time: 01/05/2023 01:56 Procedure: XR HIP 2 OR 3 VW RIGHT Ordering Provider: MISHRA NICHOLAS Reason For Exam: fall, right hip pain PELVIS AND RIGHT HIP: CLINICAL INDICATION: Fall, right hip pain. TECHNIQUE: AP pelvis plus AP and lateral views of the right hip COMPARISON: None. FINDINGS: There is no evidence for fracture or dislocation. The hips joints are unremarkable. The sacroiliac joints are normal. No bone lesion is identified. There is no soft tissue abnormality. IMPRESSION: No fracture or dislocation. Report Dictated on Electronically Signed By: Otf Gutierrez Electronically Signed Date/Time: 01/05/2023 2:14 AM EDT [facility] Radiology Study observation (narrative) [facility] loree Glucose,Bedsideon 03-06-2022 Glucose [Mass/Vol] 183 mg/dL High [address] [facility] Comment on above: Result Comment: Test performed by glucose meter. Results may be 10%-15% lower than serum/plasma values. (CLIA ID [id number]) Performed By: #### B GLU #### [facility] [address] [place] [address] Glucose [Mass/Vol] 145 mg/dL [facility] [address] [facility] Comment on above: Result Comment: Test performed by glucose meter. Results may be 10%-15% lower than serum/plasma values. (CLIA ID [id number]) Performed By: #### B GLU #### [facility] [address] [place] [address] Glucose,Bedsideon 03-05-2022 Glucose [Mass/Vol] 190 mg/dL High 70-100 [facility] Comment on above: Result Comment: Test performed by glucose meter. Results may be 10%-15% lower than serum/plasma values. (CLIA ID [id number]) Performed By: #### B GLU #### [facility] [address] [place] [address] Glucose [Mass/Vol] 210 mg/dL High 70-100 [facility] Comment on above: Result Comment: Test performed by glucose meter. Results may be 10%-15% lower than serum/plasma values. (CLIA ID [id number]) Performed By: #### B GLU #### [facility] [address] [place] [address] Glucose [Mass/Vol] 112 mg/dL High 70-100 [facility] Comment on above: Result Comment: Test performed by glucose meter. Results may be 10%-15% lower than serum/plasma values. (CLIA ID [id number]) Performed By: #### B GLU #### [facility] [address] [place] [address] Glucose,Bedsideon 03-04-2022 Glucose [Mass/Vol] 186 mg/dL High 70-100 [facility] Comment on above: Result Comment: Test performed by glucose meter. Results may be 10%-15% lower than serum/plasma values. (CLIA ID [id number]) Performed By: #### B GLU #### [facility] [address] [place] [address] Glucose [Mass/Vol] 127 mg/dL High 70-[address] [place] [address] Comment on above: Result Comment: Test performed by glucose meter. Results may be 10%-15% lower than serum/plasma values. (CLIA ID [id number]) Performed By: #### B GLU #### [facility] [address] [place] [address] Glucose [Mass/Vol] 192 mg/dL High 70-[address] [place] [address] Comment on above: Result Comment: Test performed by glucose meter. Results may be 10%-15% lower than serum/plasma values. (CLIA ID [id number]) Performed By: #### B GLU #### [facility] [address] [place] [address] Glucose [Mass/Vol] 128 mg/dL High 70-100 [facility] Comment on above: Result Comment: Test performed by glucose meter. Results may be 10%-15% lower than serum/plasma values. (CLIA ID [id number]) Performed By: #### B GLU #### [facility] [address] [place] [address] Basic Metabolic Panelon 05- Anion gap [Moles/Vol] 4 mmol/L Normal 3-13 [facility] Comment on above: Performed By: #### B MP3 #### [facility] [address] [place] [address] Calcium [Mass/Vol] 8.9 mg/dL Normal 8.4-10.4 [facility] Comment on above: Performed By: #### B MP3 #### [facility] [address] [place] [address] CO2 [Moles/Vol] 25 mmol/L Normal 22-30 [facility] Comment on above: Performed By: #### B MP3 #### [facility] [address] [place] [address] Glucose [Mass/Vol] 125 mg/dL High 70-100 [facility] Comment on above: Performed By: #### B MP3 #### [facility] [address] [place] [address] Urea nitrogen [Mass/Vol] 15 mg/dL Normal 7-17 [facility] Comment on above: Performed By: #### B MP3 #### [facility] [address] [place] [address] Creatinine [Mass/Vol] 1.12 mg/dL Normal 0.52-1.25 [facility] Comment on above: Performed By: #### B MP3 #### [facility] [address] [place] [address] GFR/1.73 sq M.predicted among blacks MDRD (S/P/Bld) [Vol rate/Area] 68.4 mL/min/{1.73_m2} Normal >60 [facility] Comment on above: Performed By: #### B MP3 #### [facility] [address] [place] [address] GFR/1.73 sq M.predicted among non-blacks MDRD (S/P/Bld) [Vol rate/Area] 59.1 mL/min/{1.73_m2} Abnormal >60 [facility] Comment on above: Result Comment: KDIG O guidelines provide the following GFR categories: Stage GFR(ml/min/1.73 m2) Terms G1 >=90 Normal or high G2 60-89 Mildly decreased* G3a 45-59 Mildly to moderately decreased G3b 30-44 Moderately to severely decreased G4 15-29 Severely decreased G5 <15 Kidney failure *Relative to young adult level. In the absence of evidence of kidney damage, neither GFR category G1 nor G2 fulfill the criteria for CKD. The CKD-EPI equation is validated in individuals 18 years of age and older. Currently the best equation for estimating glomerular filtration rate (GFR) from serum creatinine in children is the Bedside [place] equation. It is less accurate in patients with extremes of muscle mass, restriction of dietary protein, ingestion of creatine, extra-renal metabolism of creatinine, or treatment with medications that affect renal tubular creatinine secretion. Performed By: #### B MP3 #### [facility] [address] [place] [address] Chloride [Moles/Vol] 106 mmol/L Normal 98-107 [facility] Comment on above: Performed By: #### B MP3 #### [facility] [address] [place] [address] Potassium [Moles/Vol] 4.2 mmol/L Normal 3.5-5.1 [facility] Comment on above: Performed By: #### B MP3 #### [facility] [address] [place] [address] Sodium [Moles/Vol] 136 mmol/L Normal 135-145 [facility] Comment on above: Performed By: #### B MP3 #### [facility] [address] [place] [address] CULTURE URINEon 03-03-2022 CULTURE URINE CULTURE URINE --> Status: F No growth (<1,000 CFU/ml). Normal [facility] Comment on above: Performed By: #### B GLU #### [facility] [address] [place] [address] Glucose,Bedsideon 03-03-2022 Glucose [Mass/Vol] 235 mg/dL High 70-100 [facility] Comment on above: Result Comment: Test performed by glucose meter. Results may be 10%-15% lower than serum/plasma values. (CLIA ID [id number]) Performed By: #### B GLU #### [facility] [address] [place] [address] Glucose [Mass/Vol] 156 mg/dL High 70-100 [facility] Comment on above: Result Comment: Test performed by glucose meter. Results may be 10%-15% lower than serum/plasma values. (CLIA ID [id number]) Performed By: #### B GLU #### [facility] [address] [place] [address] Glucose [Mass/Vol] 119 mg/dL High 70-100 [facility] Comment on above: Result Comment: Test performed by glucose meter. Results may be 10%-15% lower than serum/plasma values. (CLIA ID [id number]) Performed By: #### B GLU #### [facility] [address] [place] [address] Glucose [Mass/Vol] 110 mg/dL High 70-100 [facility] Comment on above: Result Comment: Test performed by glucose meter. Results may be 10%-15% lower than serum/plasma values. (CLIA ID [id number]) Performed By: #### B GLU #### [facility] [address] [place] [address] Basic Metabolic Panelon 05-1 -2021 Anion gap [Moles/Vol] 10 mmol/L Normal 3-13 [facility] Comment on above: Performed By: #### B GLU #### [facility] [address] [place] [address] Calcium [Mass/Vol] 9.6 mg/dL Normal 8.4-10.4 [facility] Comment on above: Performed By: #### B GLU #### [facility] [address] [place] [address] CO2 [Moles/Vol] 24 mmol/L Normal 22-30 [facility] Comment on above: Performed By: #### B GLU #### [facility] [address] [place] [address] Glucose [Mass/Vol] 196 mg/dL High 70-100 [facility] Comment on above: Performed By: #### B GLU #### [facility] [address] [place] [address] Urea nitrogen [Mass/Vol] 23 mg/dL High 7-17 [facility] Comment on above: Performed By: #### B GLU #### [facility] [address] [place] [address] Creatinine [Mass/Vol] 1.27 mg/dL High 0.52-1.25 [facility] Comment on above: Performed By: #### B GLU #### [facility] [address] [place] [address] GFR/1.73 sq M.predicted among blacks MDRD (S/P/Bld) [Vol rate/Area] 58.8 mL/min/{1.73_m2} Abnormal >60 [facility] Comment on above: Performed By: #### B GLU #### [facility] [address] [place] [address] GFR/1.73 sq M.predicted among non-blacks MDRD (S/P/Bld) [Vol rate/Area] 50.7 mL/min/{1.73_m2} Abnormal >60 [facility] Comment on above: Result Comment: KDIG O guidelines provide the following GFR categories: Stage GFR(ml/min/1.73 m2) Terms G1 >=90 Normal or high G2 60-89 Mildly decreased* G3a 45-59 Mildly to moderately decreased G3b 30-44 Moderately to severely decreased G4 15-29 Severely decreased G5 <15 Kidney failure *Relative to young adult level. In the absence of evidence of kidney damage, neither GFR category G1 nor G2 fulfill the criteria for CKD. The CKD-EPI equation is validated in individuals 18 years of age and older. Currently the best equation for estimating glomerular filtration rate (GFR) from serum creatinine in children is the Bedside [place] equation. It is less accurate in patients with extremes of muscle mass, restriction of dietary protein, ingestion of creatine, extra-renal metabolism of creatinine, or treatment with medications that affect renal tubular creatinine secretion. Performed By: #### B GLU #### [facility] [address] [place] [address] Potassium [Moles/Vol] 3.7 mmol/L Normal 3.5-5.1 [facility] Comment on above: Performed By: #### B GLU #### [facility] [address] [place] [address] Chloride [Moles/Vol] 103 mmol/L Normal 98-107 [facility] Comment on above: Performed By: #### B GLU #### [facility] [address] [place] [place] [address] Sodium [Moles/Vol] 137 mmol/L Normal 135-145 [facility] Comment on above: Performed By: #### B GLU #### [facility] [address] [place] [address] Glucose,Bedsideon 03-02-2022 Glucose [Mass/Vol] 112 mg/dL High [address] [facility] Comment on above: Result Comment: Test performed by glucose meter. Results may be 10%-15% lower than serum/plasma values. (CLIA ID [id number]) Performed By: #### B GLU #### [facility] [address] [place] [address] Glucose [Mass/Vol] 347 mg/dL High 70-100 [facility] Comment on above: Result Comment: Test performed by glucose meter. Results may be 10%-15% lower than serum/plasma values. (CLIA ID [id number]) Performed By: #### B GLU #### [facility] [address] [place] [address] Glucose [Mass/Vol] 240 mg/dL [facility] 70-100 [facility] Comment on above: Result Comment: Test performed by glucose meter. Results may be 10%-15% lower than serum/plasma values. (CLIA ID [id number]) Performed By: #### B GLU #### [facility] [address] [place] [address] Glucose [Mass/Vol] 156 mg/dL High 70-100 [facility] Comment on above: Result Comment: Test performed by glucose meter. Results may be 10%-15% lower than serum/plasma values. (CLIA ID [id number]) Performed By: #### B GLU #### [facility] [address] [place] [address] Glucose [Mass/Vol] 202 mg/dL High 70-100 [facility] Comment on above: Result Comment: Test performed by glucose meter. Results may be 10%-15% lower than serum/plasma values. (CLIA ID [id number]) Performed By: #### B GLU #### [facility] [address] [place] [address] Glucose [Mass/Vol] 364 mg/dL High 70-100 [facility] Comment on above: Result Comment: Test performed by glucose meter. Results may be 10%-15% lower than serum/plasma values. (CLIA ID [id number]) Performed By: #### B GLU #### [facility] [address] [place] [address] Hemogram w/ Autodiffon 03-02 Abs Baso Cnt 0.0 10*3/uL Normal 0.0-0.2 [facility] Comment on above: Performed By: #### B GLU #### [facility] [address] [place] [address] Abs Neutrophile Cnt 2.8 10*3/uL Normal 1.8-7.0 [facility] Comment on above: Performed By: #### B GLU #### [facility] [address] [place] [address] Basophils/100 WBC (Bld) 0.4 % Normal 0.0-2.0 S [facility] Comment on above: Performed By: #### B GLU #### [facility] [address] [place] [address] Eosinophils (Bld) [#/Vol] 0.1 10*3/uL Normal 0.0-0.5 [facility] Comment on above: Performed By: #### B GLU #### [facility] [address] [place] [address] Eosinophils/100 WBC (Bld) 2.0 % Normal 1.0-6.0 [facility] Comment on above: Performed By: #### B GLU #### [facility] [address] [place] [address] Erythrocyte distribution width (RBC) [Ratio] 13.3 % Normal 11.5-14.5 [facility] Comment on above: Performed By: #### B GLU #### [facility] [address] [place] [address] Granulocytes/100 WBC (Bld) 59.3 % Normal 40.0-80.0 [facility] Comment on above: Performed By: #### B GLU #### [facility] [address] [place] [address] Hematocrit (Bld) [Volume fraction] 39.0 % Low 40.0-52.0 [facility] Comment on above: Performed By: #### B GLU #### [facility] [address] [place] [address] Hemoglobin (Bld) [Mass/Vol] 13.2 g/dL Normal 13.0-18.0 [facility] Comment on above: Performed By: #### B GLU #### [facility] [address] [place] [address] Lymphocytes (Bld) [#/Vol] 1.4 10*3/uL Normal 1.0-4.3 [facility] Comment on above: Performed By: #### B GLU #### [facility] [address] [place] [address] Lymphocytes/100 WBC (Bld) 28.6 % Normal 20.0-40.0 [facility] Comment on above: Performed By: #### B GLU #### [facility] [address] [place] [address] MCH (RBC) [Entitic mass] 29.6 pg Normal 26.0-34.0 [facility] Comment on above: Performed By: #### B GLU #### [facility] [address] [place] [address] MCHC 33.8 % Normal 32.0-36.0 [facility] Comment on above: Performed By: #### B GLU #### [facility] [address] [place] [address] MCV (RBC) [Entitic vol] 87.7 fL Normal 80.0-98.0 [facility] Comment on above: Performed By: #### B GLU #### [facility] [address] [place] [address] Monocytes (Bld) [#/Vol] 0.5 10*3/uL Normal 0.0-0.8 [facility] Comment on above: Performed By: #### B GLU #### [facility] [address] [place] [address] Monocytes/100 WBC (Bld) 9.7 % Normal 2.0-10.0 [facility] Comment on above: Performed By: #### B GLU #### [facility] [address] [place] [address] Platelet mean volume (Bld) [Entitic vol] 9.0 fL Normal 7.4-12.4 [facility] Comment on above: Result Comment: MPV is a calculated measurement using platelet volume ratio. Performed By: #### B GLU #### [facility] [address] [place] [place] [address] Platelets (Bld) [#/Vol] 163 10*3/uL Normal 140-440 [facility] Comment on above: Performed By: #### B GLU #### [facility] [address] [place] [address] RBC (Bld) [#/Vol] 4.45 10*6/uL Normal 4.40-5.90 [facility] Comment on above: Performed By: #### B GLU #### [facility] [address] [place] [address] WBC (Bld) [#/Vol] 4.7 10*3/uL Normal 3.6-10.7 [facility] Comment on above: Performed By: #### B GLU #### [facility] [address] [place] [address] Beta Hydroxybutyrateon 03-01 Beta Hydroxybutyrate 5.06 mg/dL High 0.20-2.81 [facility] Comment on above: Performed By: #### B GLU #### [facility] [address] [place] [address] Comp Metabolic Panelon 03-01 ALP [Catalytic activity/Vol] 118 U/L Normal 38-126 [facility] Comment on above: Performed By: #### B GLU #### [facility] [address] [place] [address] ALT [Catalytic activity/Vol] 27 U/L Normal 0-49 [facility] Comment on above: Result Comment: The ALT test is performed by an updated assay method. Please note that the reference intervals have been changed and are now sex specific. Performed By: #### B GLU #### [facility] [address] [place] [address] Anion gap [Moles/Vol] 7 mmol/L Normal 3-13 [facility] Comment on above: Performed By: #### B GLU #### [facility] [address] [place] [place] [address] AST [Catalytic activity/Vol] 28 U/L Normal 15-46 [facility] Comment on above: Performed By: #### B GLU #### [facility] [address] [place] [address] Calcium [Mass/Vol] 9.2 mg/dL Normal 8.4-10.4 [facility] Comment on above: Performed By: #### B GLU #### [facility] [address] [place] [address] CO2 [Moles/Vol] 26 mmol/L Normal 22-30 [facility] Comment on above: Performed By: #### B GLU #### [facility] [address] [place] [address] Glucose [Mass/Vol] 544 mg/dL Critically high 70-100 [facility] Comment on above: Performed By: #### B GLU #### [facility] [address] [place] [address] Protein [Mass/Vol] 7.0 g/dL Normal 6.3-8.2 [facility] Comment on above: Performed By: #### B GLU #### [facility] [address] [place] [address] Urea nitrogen [Mass/Vol] 26 mg/dL High 7-17 [facility] Comment on above: Performed By: #### B GLU #### [facility] [address] [place] [address] Bilirubin [Mass/Vol] 0.7 mg/dL Normal 0.2-1.3 [facility] Comment on above: Performed By: #### B GLU #### [facility] [address] [place] [address] Creatinine [Mass/Vol] 1.33 mg/dL High 0.52-1.25 [facility] Comment on above: Performed By: #### B GLU #### [facility] [address] [place] [place] [address] GFR/1.73 sq M.predicted among blacks MDRD (S/P/Bld) [Vol rate/Area] 55.6 mL/min/{1.73_m2} Abnormal >60 [facility] Comment on above: Performed By: #### B GLU #### [facility] [address] [place] [place] [address] GFR/1.73 sq M.predicted among non-blacks MDRD (S/P/Bld) [Vol rate/Area] 48.0 mL/min/{1.73_m2} Abnormal >60 [facility] Comment on above: Result Comment: KDIG O guidelines provide the following GFR categories: Stage GFR(ml/min/1.73 m2) Terms G1 >=90 Normal or high G2 60-89 Mildly decreased* G3a 45-59 Mildly to moderately decreased G3b 30-44 Moderately to severely decreased G4 15-29 Severely decreased G5 <15 Kidney failure *Relative to young adult level. In the absence of evidence of kidney damage, neither GFR category G1 nor G2 fulfill the criteria for CKD. The CKD-EPI equation is validated in individuals 18 years of age and older. Currently the best equation for estimating glomerular filtration rate (GFR) from serum creatinine in children is the Bedside [place] equation. It is less accurate in patients with extremes of muscle mass, restriction of dietary protein, ingestion of creatine, extra-renal metabolism of creatinine, or treatment with medications that affect renal tubular creatinine secretion. Performed By: #### B GLU #### [facility] [address] [place] [place] [address] Albumin [Mass/Vol] 4.2 g/dL Normal 3.5-5.0 [facility] Comment on above: Performed By: #### B GLU #### [facility] [address] [place] [place] [address] Chloride [Moles/Vol] 97 mmol/L Low 98-107 [facility] Comment on above: Performed By: #### B GLU #### [facility] [address] [place] [address] Potassium [Moles/Vol] 4.9 mmol/L Normal 3.5-5.1 [facility] Comment on above: Performed By: #### B GLU #### [facility] [address] [place] [address] Sodium [Moles/Vol] 130 mmol/L Low 135-145 [facility] Comment on above: Performed By: #### B GLU #### [facility] [address] [place] [address] Complete Urinalysison 2021 Appearance (U) Clear Normal Clear [facility] Comment on above: Result Comment: . Performed By: #### B GLU #### [facility] [address] [place] [place] [address] Bilirubin,Urine Negative Normal Negative [facility] Comment on above: Result Comment: . Performed By: #### B GLU #### [facility] [address] [place] [address] Color (U) LIGHT YELLOW Normal Lt. Yellow [facility] Comment on above: Result Comment: . Performed By: #### B GLU #### [facility] [address] [place] [address] Glucose Ql (U) > 1,000 Abnormal Normal (<70) [facility] Comment on above: Result Comment: . Performed By: #### B GLU #### [facility] [address] [place] [address] Ketone,Urine Negative Normal Negative [facility] Comment on above: Result Comment: . Performed By: #### B GLU #### [facility] [address] [place] [address] Leukocytes,Urine Negative Normal Negative [facility] Comment on above: Result Comment: . Performed By: #### B GLU #### [facility] [address] [place] [address] Nitrites,Urine Negative Normal Negative [facility] Comment on above: Result Comment: . Performed By: #### B GLU #### [facility] [address] [place] [address] Occult Blood,Urine Negative Normal Negative [facility] Comment on above: Result Comment: . Performed By: #### B GLU #### [facility] [address] [place] [address] pH,Urine 5.5 Normal 5.0-8.0 [facility] Comment on above: Result Comment: . Performed By: #### B GLU #### [facility] [address] [place] [address] Specific [place],Urine 1.026 Normal 1.005 - 1.030 [facility] Comment on above: Result Comment: . Performed By: #### B GLU #### [facility] [address] [place] [address] Total Protein,Urine Negative Normal Negative [facility] Comment on above: Result Comment: . Performed By: #### B GLU #### [facility] [address] [place] [address] Urobilinogen,Urine Normal Normal Normal (0-1) [facility] Comment on above: Result Comment: . Performed By: #### B GLU #### [facility] [address] [place] [address] Glucose,Bedsideon 03-01-2022 Glucose [Mass/Vol] 323 mg/dL High 70-100 [facility] Comment on above: Result Comment: Test performed by glucose meter. Results may be 10%-15% lower than serum/plasma values. (CLIA ID [id number]) Performed By: #### B GLU #### [facility] [address] [place] [address] Glucose [Mass/Vol] 275 mg/dL High 70-100 [facility] Comment on above: Result Comment: elderly caregiver Notified; Test performed by glucose meter. Results may be 10%-15% lower than serum/plasma values. (CLIA ID [id number]) Performed By: #### B GLU #### [facility] [address] [place] [address] Hemoglobin A1Con 03-01-2022 Glucose [Mass/Vol] 355 mg/dL Normal [facility] Comment on above: Performed By: #### B GLU #### [facility] [address] [place] [address] HbA1c (Bld) [Mass fraction] % Abnormal [facility] Comment on above: Result Comment: Norm al less than 5.7% Prediabetes 5.7% to 6.4% Diabetes 6.5% or higher --HgbA1C levels may not be accurate in patients who have renal disease, received recent blood transfusions, are anemic, or who have dyshemoglobinemia. Performed By: #### B GLU #### [facility] [address] [place] [address] Hemogram w/ Autodiffon 03-01 Abs Baso Cnt 0.0 10*3/uL Normal 0.0-0.2 [facility] Comment on above: Performed By: #### B GLU #### [facility] [address] [place] [address] Abs Neutrophile Cnt 2.5 10*3/uL Normal 1.8-7.0 [facility] Comment on above: Performed By: #### B GLU #### [place] [address] [place] [address] Basophils/100 WBC (Bld) 0.3 % Normal 0.0-2.0 [facility] Comment on above: Performed By: #### B GLU #### [place] [address] [place] [address] Eosinophils (Bld) [#/Vol] 0.0 10*3/uL Normal 0.0-0.5 [facility] Comment on above: Performed By: #### B GLU #### [place] [address] [place] [address] Eosinophils/100 WBC (Bld) 0.5 % Low 1.0-6.0 [facility] Comment on above: Performed By: #### B GLU #### [place] [address] [place] [address] Erythrocyte distribution width (RBC) [Ratio] 12.4 % Normal 11.5-14.5 [facility] Comment on above: Performed By: #### B GLU #### [place] [address] [place] [address] Granulocytes/100 WBC (Bld) 67.7 % Normal 40.0-80.0 [facility] Comment on above: Performed By: #### B GLU #### [place] [address] [place] [address] Hematocrit (Bld) [Volume fraction] 35.8 % Low 40.0-52.0 [facility] Comment on above: Performed By: #### B GLU #### [facility] [address] [place] [address] Hemoglobin (Bld) [Mass/Vol] 12.5 g/dL Low 13.0-18.0 [facility] Comment on above: Performed By: #### B GLU #### [facility] [address] [place] [address] Lymphocytes (Bld) [#/Vol] 0.8 10*3/uL Low 1.0-4.3 [facility] Comment on above: Performed By: #### B GLU #### [facility] [address] [place] [address] Lymphocytes/100 WBC (Bld) 21.5 % Normal 20.0-40.0 [facility] Comment on above: Performed By: #### B GLU #### [facility] [address] [place] [address] MCH (RBC) [Entitic mass] 30.5 pg Normal 26.0-34.0 [facility] Comment on above: Performed By: #### B GLU #### [facility] [address] [place] [address] MCHC 34.9 % Normal 32.0-36.0 [facility] Comment on above: Performed By: #### B GLU #### [place] [address] [place] [address] MCV (RBC) [Entitic vol] 87.3 fL Normal 80.0-98.0 [facility] Comment on above: Performed By: #### B GLU #### [facility] [address] [place] [address] Monocytes (Bld) [#/Vol] 0.4 10*3/uL Normal 0.0-0.8 [facility] Comment on above: Performed By: #### B GLU #### [facility] [address] [place] [address] Monocytes/100 WBC (Bld) 9.7 % Normal 2.0-10.0 [facility] Comment on above: Performed By: #### B GLU #### [facility] [address] [place] [address] Platelet mean volume (Bld) [Entitic vol] 10.8 fL Normal 7.4-12.4 [facility] Comment on above: Result Comment: MPV is a calculated measurement using platelet volume ratio. Performed By: #### B GLU #### [facility] [address] [place] [place] [address] Platelets (Bld) [#/Vol] 152 10*3/uL Normal 140-440 [facility] Comment on above: Performed By: #### B GLU #### [facility] [address] [place] [address] RBC (Bld) [#/Vol] 4.10 10*6/uL Low 4.40-5.90 [facility] Comment on above: Performed By: #### B GLU #### [facility] [address] [place] [address] WBC (Bld) [#/Vol] 3.7 10*3/uL Normal 3.6-10.7 [facility] Comment on above: Performed By: #### B GLU #### [facility] [address] [place] [address] Osmolality,Serumon 2 Osmolality,Serum 303 mosm/kg High 280-300 [facility] Comment on above: Order Comment: Speci men moderately hemolyzed. Performed By: #### B GLU #### [facility] [address] [place] [address] Venous Blood Gas Respiratory on 03-01-2022 Base Excess 0.9 mmol/L Normal -3.0-3.0 [facility] Comment on above: Performed By: #### B GLU #### [facility] [address] [place] [address] CO2 [Moles/Vol] 27.0 mmol/L Normal 24.0-28.0 [facility] Comment on above: Result Comment: Perf ormed by CLIA ID: [id number] [place] Performed By: #### B GLU #### [facility] [address] [place] [address] HCO3 (Bld) [Moles/Vol] 25.7 mmol/L Normal 23.0-27.0 [facility] Comment on above: Performed By: #### B GLU #### [facility] [address] [place] [address] Oxygen (Bld) [Partial pressure] 105.1 mm[Hg] High 30.0-50.0 [facility] Comment on above: Performed By: #### B GLU #### [facility] [address] [place] [address] Oxygen saturation in Blood 98.1 % High 60.0-80.0 [facility] Comment on above: Performed By: #### B GLU #### [facility] [address] [place] [address] pCO2 41.0 mm[Hg] Normal 40.0-55.0 [facility] Comment on above: Performed By: #### B GLU #### [facility] [address] [place] [address] pH 7.405 Normal 7.330-7.430 [facility] Comment on above: Performed By: #### B GLU #### [facility] [address] [place] [address] Vital Signs Date Time Vital Sign Value Performing Clinician Facility 04-02-2025 08:11-0400 Body temperature 97.3 [degF] Jj Lara MD Work Phone: [facility] 04-02-2025 08:11-0400 Diastolic blood pressure 107 mm[Hg] Jj Lara MD Work Phone: [facility] 04-02-2025 08:11-0400 Heart rate 71 /min Jj Lara MD Work Phone: [facility] 04-02-2025 08:11-0400 Respiratory rate 16 /min Jj Lara MD Work Phone: [facility] 04-02-2025 08:11-0400 SaO2% (BldA) [Mass fraction] 95 % Jj Lara MD Work Phone: [facility] 04-02-2025 08:11-0400 Systolic blood pressure 165 mm[Hg] Jj Lara MD Work Phone: [facility] 03-30-2025 17:58-0400 Body height 188 cm Jj Lara MD Work Phone: [facility] 03-30-2025 17:58-0400 Body mass index (BMI) [Ratio] 16.69 kg/m2 Jj Lara MD Work Phone: [facility] 03-30-2025 17:58-0400 Body weight 58.97 kg Jj Lara MD Work Phone: [facility] 12-12-2023 12:22-0500 Heart rate 79 /min Lala Lerma MD Work Phone: [facility] 12-12-2023 12:22-0500 Respiratory rate 18 /min Lala Lerma MD Work Phone: [facility] 12-12-2023 12:22-0500 SaO2% (BldA) [Mass fraction] 93 % Lala Lerma MD Work Phone: [facility] 12-12-2023 09:42-0500 Body temperature 98.1 [degF] Lala Lerma MD Work Phone: [facility] 12-12-2023 09:42-0500 Diastolic blood pressure 77 mm[Hg] Lala Lerma MD Work Phone: [facility] 12-12-2023 09:42-0500 Systolic blood pressure 143 mm[Hg] Lala Lerma MD Work Phone: [facility] 12-11-2023 14:54-0500 Body height 188 cm Lala Lerma MD Work Phone: [facility] 12-07-2023 14:38-0500 Body mass index (BMI) [Ratio] 16.63 kg/m2 Lala Lerma MD Work Phone: [facility] 12-07-2023 14:38-0500 Body weight 58.74 kg Lala Lerma MD Work Phone: [facility] 09-23-2023 16:01-0500 Body height 185.42 cm [facility] 09-23-2023 16:01-0500 Body mass index (BMI) [Ratio] 15.9 kg/m2 [facility] 09-23-2023 16:01-0500 Body temperature 97.6 [degF] [facility] 09-23-2023 16:01-0500 Body weight 54.8 kg [facility] 09-23-2023 16:01-0500 Diastolic blood pressure 86 mm[Hg] [facility] 09-23-2023 16:01-0500 Heart rate 76 /min [facility] 09-23-2023 16:01-0500 Respiratory rate 16 /min [facility] 09-23-2023 16:01-0500 SaO2% (BldA) [Mass fraction] 95 % [facility] 09-23-2023 16:01-0500 Systolic blood pressure 150 mm[Hg] [facility] 09-19-2023 08:02-0500 Body temperature 97 [degF] Bernard Phillips MD Work Phone: [facility] 09-19-2023 08:02-0500 Diastolic blood pressure 69 mm[Hg] Bernard Phillips MD Work Phone: [facility] 09-19-2023 08:02-0500 Heart rate 62 /min Bernard Phillips MD Work Phone: [facility] 09-19-2023 08:02-0500 Respiratory rate 16 /min Bernard Phillips MD Work Phone: [facility] 09-19-2023 08:02-0500 SaO2% (BldA) [Mass fraction] 97 % Bernard Phillips MD Work Phone: [facility] 09-19-2023 08:02-0500 Systolic blood pressure 128 mm[Hg] Bernard Phillips MD Work Phone: [facility] 09-14-2023 09:31-0500 Body height 188 cm Bernard Phillips MD Work Phone: [facility] 01-26-2023 08:41-0400 Diastolic blood pressure 73 mm[Hg] Karel Ghosh DO Work Phone: [facility] 01-26-2023 08:41-0400 Heart rate 116 /min Karel Ghosh DO Work Phone: [facility] 01-26-2023 08:41-0400 Systolic blood pressure 111 mm[Hg] Karel Ghosh DO Work Phone: [facility] 01-26-2023 08:33-0400 Body temperature 97.5 [degF] Karel Ghosh DO Work Phone: [facility] 01-26-2023 08:33-0400 Respiratory rate 17 /min Karel Ghosh DO Work Phone: [facility] 01-26-2023 08:33-0400 SaO2% (BldA) [Mass fraction] 97 % Karel Ghosh DO Work Phone: [facility] 01-20-2023 16:13-0400 Body height 188 cm Karel Ghosh DO Work Phone: [facility] 01-20-2023 16:13-0400 Body mass index (BMI) [Ratio] 15.88 kg/m2 Karel Ghosh DO Work Phone: [facility] 01-20-2023 16:13-0400 Body weight 56.11 kg Karel Ghosh DO Work Phone: [facility] 01-05-2023 04:22-0400 Diastolic blood pressure 88 mm[Hg] Kee Mishra MD Work Phone: [facility] 01-05-2023 04:22-0400 Heart rate 90 /min Kee Mishra MD Work Phone: [employer] [facility] 01-05-2023 04:22-0400 Respiratory rate 17 /min Kee Mishra MD Work Phone: [facility] 01-05-2023 04:22-0400 SaO2% (BldA) [Mass fraction] 98 % Kee Mishra MD Work Phone: [facility] 01-05-2023 04:22-0400 Systolic blood pressure 147 mm[Hg] Kee Mishra MD Work Phone: [facility] 01-05-2023 01:35-0400 Body height 188 cm Kee Mishra MD Work Phone: [facility] 01-05-2023 01:35-0400 Body mass index (BMI) [Ratio] 20.54 kg/m2 Kee Mishra MD Work Phone: [facility] 01-05-2023 01:35-0400 Body weight 72.58 kg Kee Mishra MD Work Phone: [facility] 01-05-2023 01:15-0400 Body temperature 98.49 [degF] Kee Mishra MD Work Phone: [facility] Encounters Encounter Date Encounter Type Care Provider Facility Start: 07-08-2025 ambulatory Javy Ross ty:[facility] Start: 04-21-2025 End: 04-21-2025 Telephone encounter Trae Deleon MD Work Phone: [facility] Clinical Communication Comment on above: Request For Order(s) ; Cancelled Appointment Start: 04-16-2025 ambulatory Javy Ross ty:[facility] Start: 04-15-2025 End: 04-15-2025 Postop follow up visit related to original px Joselito Liu PA-C Work Phone: [facility] Comment on above: Closed nondisplaced intertrochanteric fracture of right femur, initial encounter (HCC) (Primary Dx); S/P ORIF (open reduction internal fixation) fracture Start: 04-15-2025 End: 04-15-2025 ambulatory [facility] Start: 04-07-2025 ambulatory Javy Ross ty:[facility] Start: 04-02-2025 End: 04-03-2025 Telephone encounter Trae Deleon MD Work Phone: [facility] Clinical Communication Comment on above: Other (IPO needs shraddha eduled) Start: 03-30-2025 End: 04-02-2025 Evaluation and management of inpatient Jj Lara MD Work Phone: [facility] Medical Surgical Unit [facility] Comment on above: Closed nondisplaced intertrochanteric fracture of right femur, initial encounter (HCC) (Primary Dx) Start: 03-03-2025 ambulatory Javy REDDY Facili ty:[facility] Start: 03-03-2025 [facility] Start: 03-02-2025 End: 03-02-[address] Javy Lynn Sr. DO Work Phone: [facility] Work Phone: Start: 03-02-2025 End: 03-02-2025 Departed [facility] Start: 03-02-2025 Registered [facility] Start: 03-02-2025 End: 03-02-2025 ambulatory Javy REDDY Facility:[facility] Start: 02-17-2025 End: 02-17-[address] Javy Lynn Sr. DO Work Phone: [facility] Work Phone: Start: 02-17-2025 End: 02-17-2025 [facility]ed [facility] Start: 02-17-2025 Registered Ref[facility] Start: 02-17-2025 End: 02-17-2025 ambulatory Javy REDDY Facility:[facility] Start: 02-12-2025 End: 02-12-[address] Javy Lynn Sr. DO Work Phone: [facility] Work Phone: Start: 02-12-2025 End: 02-12-2025 [facility]ed [facility] Start: 02-12-2025 End: 02-12-2025 ambulatory Javy REDDY Facility:[facility] Start: 02-11-2025 End: 02-11-2025 Departed Referred Javy Lynn MD -[facility] Start: 02-11-2025 Registered Referred Javy Lynn MD -[facility] Start: 02-11-2025 End: 02-11-2025 ambulatory Javy REDDY Facility:[facility] Start: 11-26-2024 ambulatory Javy REDDY Facili ty:[facility] Start: 11-26-2024 Registered Referred Javy Lynn MD -[facility] Start: 11-07-2024 ambulatory Javy [facility] Sr. [facility] [facility] Start: 11-07-2024 Registered Referred Javy Lynn MD -[facility] Start: 10-07-2024 End: 10-07-2024 ambulatory Javy Lynn Sr. Facility:[facility] Start: 09-17-2024 ambulatory Javy Lynn Sr. Facili ty:[facility] Start: 09-02-2024 End: 09-02-2024 ambulatory Javy REDDY Facility:[facility] Start: 08-27-2024 End: 08-27-2024 ambulatory Javy REDDY Facility:[facility] Start: 08-06-2024 End: 08-06-2024 ambulatory Javy REDDY Facility:[facility] Start: 08-04-2024 End: 08-04-2024 ambulatory Javy REDDY Facility:[facility] Start: 07-18-2024 End: 07-18-2024 ambulatory Javy REDDY Facility:[facility] Start: 01-24-2024 End: 01-24-2024 ambulatory [facility] Work Phone: Start: 01-24-2024 End: 01-24-2024 Departed Referred [facility] Start: 01-24-2024 Registered Referred [facility] Start: 01-14-2024 End: 01-14-2024 ambulatory [facility] Work Phone: Start: 01-14-2024 End: 01-14-2024 Departed Referred [facility] Start: 12-25-2023 Registered Referred [facility] Start: 12-24-2023 Registered Referred [facility] Start: 12-19-2023 Registered Referred [facility] Start: 12-06-2023 End: 12-12-2023 Evaluation and management of inpatient Lala Lerma MD Work Phone: [facility] Cardiac Progressive Care Unit PCU 2E Comment on above: Pneumonia due to inf ectious organism, unspecified laterality, unspecified part of lung (Primary Dx); Sepsis, due to unspecified organism, unspecified whether acute organ dysfunction present (HCC); RSV (acute bronchiolitis due to respiratory syncytial virus) Start: 12-05-2023 End: 12-05-2023 ambulatory [facility] Work Phone: Start: 12-05-2023 End: 12-05-2023 Departed Referred [facility] Start: 11-02-2023 End: 11-02-2023 ambulatory [facility] Work Phone: Start: 11-02-2023 End: 11-02-2023 Departed Referred [facility] Start: 10-01-2023 Registered Referred [facility] Start: 09-25-2023 Registered Referred 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) Start: 01-17-2023 End: 01-26-2023 Emergency department patient visit Karel Ghosh DO Work Phone: [facility] 4S TELEMETRY Comment on above: Hyperosmolar hypergl ycemic state (HHS) (HCC) (Primary Dx) Start: 01-05-2023 End: 01-05-2023 Subsequent hospital visit by physician [facility] Exam Room [address] [facility] [address] Comment on above: Arrived Start: 01-05-2023 End: 01-05-2023 Emergency department patient visit Kee Mishra MD Work Phone: [facility] ED Comment on above: Fall from ground lev el (Primary Dx); Discharge of left eye Start: 03-01-2022 End: 03-06-2022 Evaluation and management of inpatient [facility] Procedures Date Procedure Procedure Detail Performing Clinician Start: 04-02-2025 Glucose quantitative blood xcpt reagent strip Antonio C Zay DO Work Phone: Start: 04-01-2025 Glucose quantitative blood xcpt reagent strip Antonio C Zay DO Work Phone: Start: 04-01-2025 Glucose quantitative blood xcpt reagent strip Antonio C Zay DO Work Phone: Start: 04-01-2025 Glucose quantitative blood xcpt reagent strip Antonio C Zay DO Work Phone: Start: 04-01-2025 End: 04-01-2025 Basic metabolic panel calcium total Antonio C Zay DO Work Phone: Start: 03-31-2025 Glucose quantitative blood xcpt reagent strip Antonio C Zay DO Work Phone: Start: 03-31-2025 End: 03-31-2025 Glucose quantitative blood xcpt reagent strip Antonio C Zay DO Work Phone: Start: 03-31-2025 End: 03-31-2025 Radiologic examination femur minimum 2 views Joselito Liu PA-C Work Phone: Start: 03-31-2025 FL GUIDANCE OR USE O NLY - NON-RESULTABLE Trae Deleon MD Work Phone: Start: 03-31-2025 End: 03-31-2025 Tx inter/pr/subtrchntric fem fx imed impltscrew Trae Deleon MD Work Phone: Start: 03-31-2025 Glucose quantitative blood xcpt reagent strip Antonio Cardona DO Work Phone: Start: 03-31-2025 End: 03-31-2025 Basic metabolic panel calcium total Antonio Cardona DO Work Phone: Start: 03-31-2025 Antibody screen JOSELITO LIU Comment on above: Performed By: #### L [id number] ####Duct Installer: GISSEL BABIN ([id number])[facility] B[facility] ([facility])[address] [facility] [address] Start: 03-31-2025 ABO and Rh group [Ty pe] in Blood by Confirmatory method Jj Lara MD Work Phone: Start: 03-31-2025 Basic metabolic pane l calcium total Jj Lara MD Work Phone: Start: 03-31-2025 Blood typing serologic abo Jj Lara MD Work Phone: Start: 03-31-2025 Radiologic examinati on knee 1/2 views Elvia Serrano MD Work Phone: Start: 03-30-2025 Ecg routine ecg w/le ast 12 lds trcg only w/o i&r Elvia Serrano MD Work Phone: Start: 03-30-2025 Radiologic exam ches t single view Jj Lara MD Work Phone: Start: 03-30-2025 End: 03-30-2025 Radiologic examination femur minimum 2 views Jj Lara MD Work Phone: Start: 02-11-[address] Javy Lynn Sr. DO Work Phone: Start: 02-11-2025 Urnls dip stick/tabl et reagent auto microscopy Dr. Javy Lynn Sr. DO Work Phone: Start: 11-07-2024 Measurement of renal function Dr. Javy Lynn Sr. DO Work Phone: Comment on above: GFR Calc Start: 12-12-2023 SARS-CoV-2 (COVID-19 ) Ag [Presence] in Respiratory specimen by Rapid immunoassay Ruiz Braun MD Work Phone: Start: 12-12-2023 Glucose quantitative blood xcpt reagent strip Ruiz Braun MD Work Phone: Start: 12-12-2023 Glucose quantitative blood xcpt reagent strip Ruiz Braun MD Work Phone: Start: 12-11-2023 Glucose quantitative blood xcpt reagent strip Ruiz Braun MD Work Phone: Start: 12-11-2023 Glucose quantitative blood xcpt reagent strip Ruiz Braun MD Work Phone: Start: 12-11-2023 Glucose quantitative blood xcpt reagent strip Ruiz Braun MD Work Phone: Start: 12-11-2023 Glucose quantitative blood xcpt reagent strip Ruiz Braun MD Work Phone: Start: 12-11-2023 Comprehensive metabo lic panel Rai Ray MD Work Phone: Start: 12-10-2023 Glucose quantitative blood xcpt reagent strip Rai Ray MD Work Phone: Start: 12-10-2023 Glucose quantitative blood xcpt reagent strip Rai Ray MD Work Phone: Start: 12-10-2023 Glucose quantitative blood xcpt reagent strip Rai Ray MD Work Phone: Start: 12-10-2023 Glucose quantitative blood xcpt reagent strip Rai Ray MD Work Phone: Start: 12-10-2023 Comprehensive metabo lic panel Rai Ray MD Work Phone: Start: 12-10-2023 Glucose quantitative blood xcpt reagent strip Rai Ray MD Work Phone: Start: 12-09-2023 Glucose quantitative blood xcpt reagent strip Rai Ray MD Work Phone: Start: 12-09-2023 Glucose quantitative blood xcpt reagent strip Rai Ray MD Work Phone: Start: 12-09-2023 Glucose quantitative blood xcpt reagent strip Rai Ray MD Work Phone: Start: 12-09-2023 Glucose quantitative blood xcpt reagent strip Rai Ray MD Work Phone: Start: 12-09-2023 End: 12-09-2023 Glucose quantitative blood xcpt reagent strip Rai Ray MD Work Phone: Start: 12-09-2023 POCT GLUCOSE METER UNSOLICITED RESULTS Rai Ray MD Work Phone: Start: 12-09-2023 Comprehensive metabo lic panel Rai Ray MD Work Phone: Start: 12-08-2023 Glucose quantitative blood xcpt reagent strip Rai Ray MD Work Phone: Start: 12-08-2023 Glucose quantitative blood xcpt reagent strip Rai Rya MD Work Phone: Start: 12-08-2023 Glucose quantitative blood xcpt reagent strip Rai Ray MD Work Phone: Start: 12-08-2023 Glucose quantitative blood xcpt reagent strip Rai Ray MD Work Phone: Start: 12-08-2023 Glucose quantitative blood xcpt reagent strip Rai Ray MD Work Phone: Start: 12-08-2023 Iadna s aureus methi cillin resist amp probe tq Sunshine Updyke PA-C Work Phone: Start: 12-08-2023 Comprehensive metabo lic panel Rai Ray MD Work Phone: Start: 12-08-2023 Drug screen quantita tive vancomycin Kayleigh John Esteraminata DO Work Phone: Start: 12-07-2023 Glucose quantitative blood xcpt reagent strip Rai Ray MD Work Phone: Start: 12-07-2023 Glucose quantitative blood xcpt reagent strip Lala Lerma MD Work Phone: Start: 12-07-2023 Iaad ia mult step me thod nos each organism Rai Ray MD Work Phone: Start: 12-07-2023 End: 12-07-2023 Procalcitonin (pct) Rai Ray MD Work Phone: Start: 12-07-2023 Glucose quantitative blood xcpt reagent strip Lala Lerma MD Work Phone: Start: 12-07-2023 Urinalysis complete panel - Urine Kayleigh Alvaro Esterle DO Work Phone: Start: 12-07-2023 Urnls dip stick/tabl et reagent auto microscopy Lala Lerma MD Work Phone: Start: 12-07-2023 Assay of troponin quantitative Lala Lerma MD Work Phone: Start: 12-06-2023 Assay of troponin quantitative Lala Lerma MD Work Phone: Start: 12-06-2023 Ecg routine ecg w/le ast 12 lds trcg only w/o i&r Lala Lerma MD Work Phone: Start: 12-06-2023 SARS-COV-2, FLU A/B, AND RSV COMBO Lala Lerma MD Work Phone: Start: 12-06-2023 Ct angiography chest w/contrast/noncontrast Lala Lerma MD Work Phone: Start: 12-06-2023 Radiologic exam ches t single view Lala Lerma MD Work Phone: Start: 12-06-2023 Bacteria identified in Blood by Culture Lala Lerma MD Work Phone: Start: 12-06-2023 Comprehensive metabo lic panel Lala Lerma MD Work Phone: Start: 11-02-2023 Urine culture Start: 09-23-2023 CT cervical spine wi thout contrast Start: 09-23-2023 CT of head without contrast Start: 09-19-2023 Glucose quantitative blood xcpt reagent strip Kayleigh M Esterle DO Work Phone: Start: 09-18-2023 Glucose quantitative blood xcpt reagent strip Kayleigh M Esterle DO Work Phone: Start: 09-18-2023 Glucose quantitative blood xcpt reagent strip Kayleigh M Esterle DO Work Phone: Start: 09-18-2023 Glucose quantitative blood xcpt reagent strip Kayleigh M Esterle DO Work Phone: Start: 09-18-2023 Glucose quantitative blood xcpt reagent strip Kayleigh M Esterle DO Work Phone: Start: 09-17-2023 Glucose quantitative blood xcpt reagent strip Kayleigh M Esterle DO Work Phone: Start: 09-17-2023 Glucose quantitative blood xcpt reagent strip Kayleigh M Esterle DO Work Phone: Start: 09-17-2023 Sars-cov-2 detection by dna/rna Kayleigh M Esterle DO Work Phone: Start: 09-17-2023 Glucose quantitative blood xcpt reagent strip Kayleigh M Esterle DO Work Phone: Start: 09-17-2023 Dup-scan xtr veins unilateral/limited study Kayleigh M Esterle DO Work Phone: Start: 09-17-2023 Glucose quantitative blood xcpt reagent strip Kayleigh M Esterle DO Work Phone: Start: 09-17-2023 Glucose quantitative blood xcpt reagent strip Kayleigh M Esterle DO Work Phone: Start: 09-17-2023 End: 09-17-2023 Glucose quantitative blood xcpt reagent strip Kayleigh John Esteraminata DO Work Phone: Start: 09-17-2023 End: 09-17-2023 Basic metabolic panel calcium total Kayleigh Alvaro Esteraminata DO Work Phone: Start: 09-16-2023 POCT GLUCOSE METER UNSOLICITED RESULTS Kayleigh John Esteraminata DO Work Phone: Start: 09-16-2023 Glucose quantitative blood xcpt reagent strip Kayleigh John Esteraminata DO Work Phone: Start: 09-15-2023 Glucose quantitative blood xcpt reagent strip Kayleigh John Esteraminata DO Work Phone: Start: 09-15-2023 Glucose quantitative blood xcpt reagent strip Kayleigh John Esteraminata DO Work Phone: Start: 09-14-2023 Glucose quantitative blood xcpt reagent strip Kayleigh Stout DO Work Phone: Start: 09-14-2023 Glucose quantitative blood xcpt reagent strip Kayleigh Stout DO Work Phone: Start: 09-14-2023 Glucose quantitative blood xcpt reagent strip Kayleigh Stout DO Work Phone: Start: 09-14-2023 Glucose quantitative blood xcpt reagent strip Kayleigh John Esterle DO Work Phone: Start: 09-14-2023 Blood count complete auto&auto difrntl wbc Kalpana León MD Work Phone: Start: 09-14-2023 C-reactive protein Sandy León MD Work Phone: Start: 09-13-2023 Glucose quantitative blood xcpt reagent strip Kayleigh John Esterle DO Work Phone: Start: 09-13-2023 Urnls dip stick/tabl et reagent auto microscopy Kalpana León MD Work Phone: Start: 09-13-2023 Glucose quantitative blood xcpt reagent strip Kayleigh John Esterle DO Work Phone: Start: 09-13-2023 Glucose quantitative blood xcpt reagent strip Kayleigh Alvaro Esterle DO Work Phone: Start: 09-13-2023 Glucose quantitative blood xcpt reagent strip Kayleigh M Esteraminata DO Work Phone: Start: 09-13-2023 C-reactive protein Sandy León MD Work Phone: Start: 09-13-2023 Comprehensive metabo lic panel Kayleigh John Esterle DO Work Phone: Start: 09-12-2023 Glucose quantitative blood xcpt reagent strip Kayleigh M Esterle DO Work Phone: Start: 09-12-2023 C-reactive protein Sandy León MD Work Phone: Start: 09-12-2023 Comprehensive metabo lic panel Kayleigh John Esteraminata DO Work Phone: Start: 09-11-2023 Glucose quantitative blood xcpt reagent strip Kayleigh John Esteraminata DO Work Phone: Start: 09-11-2023 C-reactive protein Sandy León MD Work Phone: Start: 09-11-2023 Lactate dehydrogenase ldh Kalpana León MD Work Phone: Start: 09-11-2023 Bacteria identified in Blood by Culture Kalpana León MD Work Phone: Start: 09-11-2023 BLOOD CULTURE IDENTIFICATION - ANAEROBIC Kalpana León MD Work Phone: Start: 09-11-2023 Glucose quantitative blood xcpt reagent strip Bernard Phillips MD Work Phone: Start: 09-11-2023 C-reactive protein Sandy León MD Work Phone: Start: 09-11-2023 Comprehensive metabo lic panel Kayleigh M Esterle DO Work Phone: Start: 09-11-2023 Smr prim src gram/gi emsa stain bct fungi/cell Kayleigh M Esterle DO Work Phone: Start: 09-10-2023 Radiologic exam ches t single view Bernard Phillips MD Work Phone: Start: 09-10-2023 Basic metabolic pane l calcium total Bernard Phillips MD Work Phone: Start: 09-10-2023 SARS-COV-2, FLU A/B, AND RSV COMBO Bernard Phillips MD Work Phone: Start: 09-10-2023 Ecg routine ecg w/le ast 12 lds trcg only w/o i&r Bernard Phillips MD Work Phone: Start: 01-26-2023 Glucose quantitative blood xcpt reagent strip Kayleigh M Esterle DO Work Phone: Start: 01-25-2023 Glucose quantitative blood xcpt reagent strip Kayleigh M Esterle DO Work Phone: Start: 01-25-2023 Glucose quantitative blood xcpt reagent strip Kayleigh M Esterle DO Work Phone: Start: 01-25-2023 Glucose quantitative blood xcpt reagent strip Kayleigh M Esterle DO Work Phone: Start: 01-25-2023 End: 01-25-2023 Glucose quantitative blood xcpt reagent strip Kayleigh M Esterle DO Work Phone: Start: 01-24-2023 Glucose quantitative blood xcpt reagent strip Kayleigh M Esterle DO Work Phone: Start: 01-24-2023 Glucose quantitative blood xcpt reagent strip Kayleigh M Esterle DO Work Phone: Start: 01-24-2023 SARS-CoV-2 (COVID-19 ) Ag [Presence] in Respiratory specimen by Rapid immunoassay Kayleigh M Esterle DO Work Phone: Start: 01-24-2023 SARS-CoV-2 (COVID-19 ) RNA panel - Respiratory specimen by LISANDRO with probe detection Kayleigh M Esterle DO Work Phone: Start: 01-24-2023 Glucose quantitative blood xcpt reagent strip Kayleigh M Esterle DO Work Phone: Start: 01-24-2023 Glucose quantitative blood xcpt reagent strip Kayleigh M Esterle DO Work Phone: Start: 01-23-2023 Glucose quantitative blood xcpt reagent strip Kayleigh M Esterle DO Work Phone: Start: 01-23-2023 Glucose quantitative blood xcpt reagent strip Kayleigh M Esterle DO Work Phone: Start: 01-23-2023 Glucose quantitative blood xcpt reagent strip Kayleigh M Esterle DO Work Phone: Start: 01-23-2023 Glucose quantitative blood xcpt reagent strip Kayleigh M Esterle DO Work Phone: Start: 01-22-2023 Glucose quantitative blood xcpt reagent strip Kayleigh M Esterle DO Work Phone: Start: 01-22-2023 Glucose quantitative blood xcpt reagent strip Kayleigh M Esterle DO Work Phone: Start: 01-22-2023 Glucose quantitative blood xcpt reagent strip Kayleigh M Esterle DO Work Phone: Start: 01-22-2023 Radiologic exam swal low function contrast study Kayleigh M Esterle DO Work Phone: Start: 01-22-2023 Glucose quantitative blood xcpt reagent strip Kayleigh M Esterle DO Work Phone: Start: 01-22-2023 Glucose quantitative blood xcpt reagent strip Kayleigh M Esterle DO Work Phone: Start: 01-21-2023 Glucose quantitative blood xcpt reagent strip Kayleigh M Esterle DO Work Phone: Start: 01-21-2023 Glucose quantitative blood xcpt reagent strip Kayleigh M Esterle DO Work Phone: Start: 01-21-2023 Glucose quantitative blood xcpt reagent strip Kayleigh M Esterle DO Work Phone: Start: 01-21-2023 Glucose quantitative blood xcpt reagent strip Kayleigh M Esterle DO Work Phone: Start: 01-21-2023 End: 01-21-2023 Glucose quantitative blood xcpt reagent strip Kayleigh M Esterle DO Work Phone: Start: 01-20-2023 Glucose quantitative blood xcpt reagent strip Kayleigh M Esterle DO Work Phone: Start: 01-20-2023 Glucose quantitative blood xcpt reagent strip Kayleigh M Esterle DO Work Phone: Start: 01-20-2023 Glucose quantitative blood xcpt reagent strip Kayleigh M Esterle DO Work Phone: Start: 01-20-2023 End: 01-20-2023 Basic metabolic panel calcium total Kayleigh M Esterle DO Work Phone: Start: 01-19-2023 Glucose quantitative blood xcpt reagent strip Kayleigh M Esterle DO Work Phone: Start: 01-19-2023 Glucose quantitative blood xcpt reagent strip Kayleigh M Esterle DO Work Phone: Start: 01-19-2023 Glucose quantitative blood xcpt reagent strip Kayleigh M Esterle DO Work Phone: Start: 01-19-2023 Glucose quantitative blood xcpt reagent strip Kayleigh M Esterle DO Work Phone: Start: 01-19-2023 Glucose quantitative blood xcpt reagent strip Kayleigh M Esterle DO Work Phone: Start: 01-19-2023 End: 01-19-2023 Basic metabolic panel calcium total Kayleigh M Esterle DO Work Phone: Start: 01-18-2023 Glucose quantitative blood xcpt reagent strip Kayleigh M Esterle DO Work Phone: Start: 01-18-2023 Glucose quantitative blood xcpt reagent strip Kayleigh M Esterle DO Work Phone: Start: 01-18-2023 Procalcitonin (pct) Lis a M Esterle DO Work Phone: Start: 01-18-2023 Glucose quantitative blood xcpt reagent strip Karel Ghosh DO Work Phone: Start: 01-18-2023 Glucose quantitative blood xcpt reagent strip Karel Ghosh DO Work Phone: Start: 01-18-2023 Basic metabolic pane l calcium total Kayleigh Stout DO Work Phone: Start: 01-18-2023 Glucose quantitative blood xcpt reagent strip Karel Ghosh DO Work Phone: Start: 01-17-2023 Blood gases any comb ination ph pco2 po2 co2 hco3 Karel Ghosh DO Work Phone: Start: 01-17-2023 Urinalysis complete panel - Urine Janet Lomeli MD Work Phone: Start: 01-17-2023 Urnls dip stick/tabl et reagent auto microscopy Janet Lomeli MD Work Phone: Start: 01-17-2023 End: 01-17-2023 Comprehensive metabolic panel Janet Lomeli MD Work Phone: Start: 01-17-2023 Manual differential performed [Presence] in Blood Janet Lomeli MD Work Phone: Start: 01-17-2023 Radiologic exam ches t single view Janet Lomeli MD Work Phone: Start: 01-17-2023 Ct head/brain w/o co ntrast material Karel Ghosh DO Work Phone: Start: 01-17-2023 Ecg routine ecg w/le ast 12 lds trcg only w/o i&r Janet Lomeli MD Work Phone: Start: 01-17-2023 POCT GLUCOSE METER UNSOLICITED RESULTS Karel Ghosh DO Work Phone: Start: 01-05-2023 Basic metabolic pane l calcium total Kee Mishra MD Work Phone: Start: 01-05-2023 Ct cervical spine w/ o contrast material Kee Mishra MD Work Phone: Start: 01-05-2023 Ct head/brain w/o co ntrast material Kee Mishra MD Work Phone: Start: 01-05-2023 Radex hip unilateral with pelvis 2-3 views Kee Mishra MD Work Phone: Start: 01-05-2023 Radiologic exam ches t single view Kee Mishra MD Work Phone: Start: 01-05-2023 Comprehensive metabo lic panel Kee Mishra MD Work Phone: Start: 01-05-2023 Ecg routine ecg w/le ast 12 lds i&r only Kee Mishra MD Work Phone: Plan of Treatment Date Care Activity Detail Author Start: 06-22-2025 Influenza vaccination [facility] Start: 05-06-2025 End: 05-06-2025 Patient encounter procedure 05/06/2025 3:00 PM EDT [facility] [address] [place] [address] [place] [address] Joselito Liu, PA-C [address] [place] [id number] [facility] Start: 04-28-2025 End: 05-22-2025 XR Femur - right 2 Views XR femur right 2+ views Imaging Routine Closed nondisplaced intertrochanteric fracture of right femur, initial encounter (HCC) Expected: 04/28/2025, Expires: 05/22/2025 [facility] Work Phone: Comment on above: Expected: 04/28/2025 , Expires: 05/22/2025 Start: 10-22-2024 Medicare Advantage Annual Wellness Visit Medicare Advantage Annual Wellness Visit [facility] Start: 06-22-2024 COVID-19 Vaccine ( season) COVID-19 Vaccine ( season) [facility] Start: 09-23-2023 [facility] Start: 06-22-2023 COVID-19 Vaccine ( season) COVID-19 Vaccine ( season) [facility] Start: 06-22-2023 Influenza vaccination [facility] Start: 04-20-2023 Hemoglobin A1c measurement Diabetes: Hemoglobin A1C [facility] Start: 06-22-2022 Influenza vaccination Influenza Vacc ine (#1) [facility] Start: 06-01-2022 Hemoglobin A1c measurement Diabetes: Hemoglobin A1C [facility] Start: 05-06-2022 COVID-19 Vaccine (2 - Booster for Jadyn series) COVID-19 Vaccine (2 - Booster for Jadyn series) [facility] Start: 2010 RSV Immunization for Adults (1 - 1-dose 75+ series) RSV Immunization for Adults (1 - 1-dose 75+ series) [facility] Start: 1995 RSV Immunization age d 60 or older (1 - 1-dose 60+ series) RSV Immunization aged 60 or older (1 - 1-dose 60+ series) [facility] Start: 1985 Zoster Vaccines (1 o f 2) Zoster Vaccines (1 of 2) [facility] Start: 1954 DTaP/Tdap/Td Vaccine s (1 - Tdap) DTaP/Tdap/Td Vaccines (1 - Tdap) [facility] Start: 1954 Pneumococcal Vaccine : 50+ Years (1 of 2 - PCV) Pneumococcal Vaccine: 50+ Years (1 of 2 - PCV) [facility] Start: 1954 Urine screening for protein Diabetes: Urine Protein Screening [facility] Start: 1947 Depression Monitoring Depression Mon itoring [facility] Start: 1947 Depression Screening Depression Scre ening [facility] Start: 1945 Diabetic foot examination Diabetes: Foot Exam [facility] Start: 1945 Glaucoma screening Diabetes: R etinopathy Screening [facility] Start: 1945 Preventive dental service Diabetes: Dental Exam [facility] Start: 1941 Pneumococcal Vaccine : 65+ Years (1 - PCV) Pneumococcal Vaccine: 65+ Years (1 - PCV) [facility] Start: 1941 Pneumococcal Vaccine : 65+ Years (1 of 2 - PCV) Pneumococcal Vaccine: 65+ Years (1 of 2 - PCV) [facility] Start: 1935 Hepatitis B Vaccines (1 of 3 - 3-dose series) Hepatitis B Vaccines (1 of 3 - 3-dose series) [facility] Start: 1935 Lipid panel Lipid Panel [facility] Start: 1935 Medicare Advantage Annual Wellness Visit (AWV) Medicare Advantage Annual Wellness Visit (AWV) [facility] Start: 1935 Screening for osteoporosis Bone Density Scan [facility] End: 12-07-2023 Bacteria identified in Lower respiratory specimen by Aerobe culture Respiratory culture and Stain Microbiology Routine Once (Lab) for 1 Occurrences starting 12/07/2023 until 12/07/2023 [facility] Comment on above: Once (Lab) for 1 Occ urrences starting 12/07/2023 until 12/07/2023 Patient Education ED Head Injury (Adult) [facility] Work Phone: Patient referral [facility] Work Phone: End: 12-07-2023 Respiratory pathogens DNA and RNA panel - Lower respiratory specimen by LISANDRO with non-probe detection Pneumonia PCR Panel Microbiology Routine Once (Lab) for 1 Occurrences starting 12/07/2023 until 12/07/2023 [facility] [employer] Work Phone: Comment on above: Once (Lab) for 1 Occ urrences starting 12/07/2023 until 12/07/2023 End: 04-02-2025 RF videography Hypopharynx and Esophagus Views for swallowing function W speech and W barium contrast PO [employer] Work Phone: Comment on above: Once for 1 Occurrenc es starting 04/02/2025 until 04/02/2025 Immunizations Immunization Date Immunization Notes Care Provider Fa mainor 09-11-2023 Influenza Vac A&B SA Adj quadrivalent (Fluad) vaccine 0.5 mL Bernard Phillips MD Work Phone: [employer] [place] NEGATED: Highlighted row has not occurred!01-18-2023 Influenza,seasonal,[place],quad,preserv Free Karel Ghosh DO Work Phone: [facility] Comment on above: 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 2021 Medicare HMO AETNA MEDICARE [id number] 2021 Private Health Insurance [id number] 1935 Unknown [id number]. 668 Medicare MEDICARE PART A B [id number] Private Health Insurance Unknown [id number] [id number]. 462 Unknown [id number] 2.16.840.1.040008.3.579.2. 462 Unknown [id number] 2.16.840.1.511921.3.579.2. 462 Unknown [id number] 2.16.840.1.012881.3.579.2. 462 Unknown [id number] 2.16.840.1.234991.3.579.2. 462 Unknown [id number] 2.16.840.1.752198.3.579.2. 462 Unknown [id number] 2.16.840.1.979537.3.579.2. 462 Unknown [id number] 2.16.840.1.926981.3.579.2. 462 Unknown [id number] 2.16.840.1.137294.3.579.2. 462 Unknown [id number] 2.16.840.1.148830.3.579.2. 462 Unknown [id number] 2.16.840.1.718651.3.579.2. 462 Unknown [id number] 2.16.840.1.520007.3.579.2. 462 Unknown [id number] 2.16.840.1.760421.3.579.2. 462 Unknown [id number] 2.16840.1.558458.3.579.2. 462 Unknown [id number] 2.16.840.1.175048.3.579.2. 462 Unknown [id number] 2.16840.1.833449.3.579.2. 462 Unknown [id number] 2.16.840.1.693539.3.579.2. 462 Social History Date Type Detail Facility Start: 09-23-2023 Tobacco smoking status NVIS Never smoked tobacco [facility] Start: 01-05-2023 End: 04-02-2025 Alcohol intake Ex-drinker (finding) [facility] Start: 1935 Sex Assigned At Not on file [facility] Start: 12-26-2022 End: 01-17-2023 Exposure to SARS-CoV-2 (event) Not sure [facility] Start: 01-18-2023 History SDOH IPV Fear 2 [facility] Start: 09-11-2023 End: 12-07-2023 History of Social function [facility] Start: 09-11-2023 End: 12-07-2023 Humiliation, Afraid, Rape, and Kick questionnaire [HARK] [facility] Within the last year , have you been afraid of your partner or ex-partner? Patient refused [facility] How often to you hav e a drink containing alcohol? Never [facility] In the past 12 month s, was there a time when you were not able to pay the mortgage or rent on time? No [facility] Start: 01-18-2023 Sexual orientation Heterosexual (finding) [facility] Start: 09-23-2023 End: 09-23-2023 Tobacco smoking status NVIS Unknown if ever smoked [facility] Start: 1935 Sex Assigned At Male [facility] Start: 03-31-2025 Tobacco smoking status NHIS Ex-smoker [facility] History of tobacco use Current smoker [facility] History of tobacco use Cigarette Smoker [facility] Start: 03-31-2025 Tobacco use and exposure Smokeless tobacco non-user [facility] Start: 05-22-2022 Sex Male (finding) [facility] Medical Equipment Procedure Code Equipment Code Equipment Origin al Text Equipment Identifier Dates USE TO INJECT LA NTUS NIGHTLY [id number] Start: 03-06-2022 End: 03-06-2023 Nail Intertan 10 x440 125deg R - [id number] ()[id number] [id number], [id number] FDA Start: 03-31-2025 Set Bn 85mm 11mm 7mm Intertan - [id number] ()[id number] [id number], [id number] FDA Start: 03-31-2025 Screw Bn 5mm 42. 5mm Trgn Fem - [id number] ()[id number] [id number], [id number] FDA Start: 03-31-2025 Goals Date Patient Goal Desired Activity /State Personal health goal Functional Status Date Assessment Result Facility 01-25-2023 Are you deaf, or do you have serious difficulty hearing Yes 01/25/2023 11:47 AM Edis Rodriguez RN Yes [facility] 01-25-2023 Are you blind, or do you have serious difficulty seeing, even when wearing glasses Yes 01/25/2023 11:47 AM EDEdis Márquez RN Yes [facility] 01-25-2023 Do you have serious difficulty walking or climbing stairs Yes 01/25/2023 11:47 AM EDT Edis Palomino RN Yes [facility] 01-25-2023 Do you have difficul ty dressing or bathing Yes 01/25/2023 11:47 AM EDT Edis Palomino RN Yes [facility] 01-25-2023 Because of a physica l, mental, or emotional condition, do you have difficulty doing errands alone such as visiting a physician's office or shopping Yes 01/25/2023 11:47 AM EDEdis Márquez RN Yes [facility] Mental Status Date Assessment Result Facility 01-25-2023 Because of a physica l, mental, or emotional condition, do you have serious difficulty concentrating, remembering, or making decisions Yes 01/25/2023 11:47 AM EDEdis Márquez RN Yes [facility] Clinical Notes 03-06-2022 to 04-21-2025 Telephone Encounter - Eboni Jimenez LPN - 04/21/2025 2:57 PM EDTTelephone Encounter - Eboni Jimenez LPN - 04/21/2025 2:57 PM EDTAddendum Note - Eboni Jimenez LPN - 04/21/2025 2:56 PM EDTAttachments Note Date & Type Note Facility 04-21-2025 Telephone encounter Note Faxed orders to number provided. [facility] 04-21-2025 Miscellaneous Notes Faxed orders to number provided. Addended by: EBONI JIMENEZ on: 04/21/2025 02:56 PM Modules accepted: Orders Let me know what to send over. Kerline calling due to family request to cancel in office appointment, due to it being difficult on the patient who is has advanced alzheimer's. IPO was cancelled per their request. Please fax orders for imaging and wound care/post op as needed to [phone]. Thank you! DOS: 03/31/25 R ORIF documented in this encounter [facility] 04-21-2025 Note Addended by: EBONI JIMENEZ on: 04/21/2025 02:56 PM Modules accepted: Orders [facility] 04-21-2025 Note Addended by: EBONI JIMENEZ on: 04/21/2025 02:56 PM Modules accepted: Orders [facility] 04-21-2025 Note Addended by: EBONI JIMENEZ on: 04/21/2025 02:56 PM Modules accepted: Orders [facility] 04-21-2025 Telephone encounter Note Let me know what to send over. [facility] 04-21-2025 Telephone encounter Note Kerline calling due to family request to cancel in office appointment, due to it being difficult on the patient who is has advanced alzheimer's. IPO was cancelled per their request. Please fax orders for imaging and wound care/post op as needed to [phone]. Thank you! DOS: 03/31/25 R ORIF [facility] 04-15-2025 History of Presen t illness Narrative Images from the original note were not included. DOS: 03/31/25 Surgery: intertan nailing of right hip Surgeon: Victoriano 4 Week Follow-up Scheduled: Yes Called patient to check in at 2 week post-op jj. Patient did not answer, left a voice message stating to call our office or reach out via [employer]hart with further questions or concerns. We will plan on seeing them in office at the 4 week post-op visit. Joselito Liu PA-C Orthopedic Surgery Hip and Knee Reconstruction [facility] documented in this encounter [facility] 04-03-2025 Telephone encounter Note I called and spoke with the facility and got the patient scheduled for the appointment. The facility requested the [place] location. [facility] 04-03-2025 Miscellaneous Notes I called and spoke with the facility and got the patient scheduled for the appointment. The facility requested the [place] location. Name of Caller: Isa Contact Reason for Appointment: Facility calling to schedule IPO for Pt. Please call to schedule thank you. documented in this encounter [facility] 04-02-2025 Telephone encounter Note Name of Caller: Isa Contact Reason for Appointment: Facility calling to schedule IPO for Pt. Please call to schedule thank you. [facility] 04-02-2025 Nurse Note Reported called over the [facility] to [facility]. [facility] 04-02-2025 Nurse Note Reported called over the [facility] to [facility]. documented in this encounter [facility] 04-02-2025 Note Formatting of this n ote might be different from the original. Transport confirmed for 12 PM CM notified Kayleigh Scott via phone of transport time. [facility] 04-02-2025 Note Formatting of this n ote might be different from the original. Transport confirmed for 12 PM CM notified Kayleigh Scott via phone of transport time. [facility] 04-02-2025 Miscellaneous Notes Transport confirmed for 12 PM CM notified Kayleigh Scott via phone of transport time. Confirmed pickup time of NOON by transport [employer] at phone number [phone]. Location of facility drop off is return back to [facility]. Facility notified via [facility], [facility] notified on secure chat. Transport requested NOON in Roundtrip. Awaiting time confirmation. Discharge med list transmitted to TO RETURN BACK TO [facility] via Careport per [facility] request. [facility]port response received from facility that pt may dc today and return ICF . Spoke w MD and DC orders placed and RON completed. CM tasked for transport and for dc PW MAR to be sent to facility. Dtr to be updated via phone of Transport time. Care Management Progress Note Pt's chart reviewed. Received call back from pt's daughter who is in pt's room. CM met with family member at bedside. Confirmed pt has been at [facility] for 2 yrs and was at another facility prior for 1. Required assist with transfers sit to stand then once up could ambulate length of facility hallways w walker indep. With Dementia diag. Pt does respond well to sensory mats. Baby dolls. CM messaged Facility regarding therapy rec for snf w inability to follow commands requesting pt be able to return unskilled and should mentation improve facility could request skilled time. Awaiting facility response. Length of Stay (Days): 3 GMLOS: No GMLOS Documented Referral placed to RETURN BACK TO [facility] via Careport per TCC request. Await review and response regarding ability to accept. [facility] notified. Problem: Potential for Falls Goal: I will remain free of falls Outcome: Progressing Problem: Safety Goal: I will remain free of falls Outcome: Progressing Problem: Daily Care Goal: Daily care needs are met Outcome: Progressing Care Management Progress Note Pts chart reviewed by BIANCA Pt admitted from [facility] resident s/p fall w acute femur fx. Orthopedic consult completed with radiology readings interpreted To OR for ORIF by Dr. Deleon 03/31/25. WBAT though 2/2 severe dementia unable to follow commands. Call by cm placed to Kayleigh Scott/daughter to discuss PLOF and dc plans. CM tasked SURFACE LAY OUT TECHNICIAN to place referral to [facility] for anticipated return. Call back number left for Daughter Kayleigh to return call. CM will contact again in the AM. DCP: Return to [facility] when stable. Length of Stay (Days): 2 GMLOS: No GMLOS Documented Problem: Potential for Compromised Skin Integrity Goal: Skin Integrity is Maintained or Improved Outcome: Progressing Problem: Urinary Incontinence Goal: Perineal skin integrity is maintained or improved Outcome: Progressing Problem: Potential for Falls Goal: I will remain free of falls Outcome: Progressing Problem: Pain Goal: My pain/discomfort is manageable Outcome: Progressing Images from the original note were not included. Operative Report Patient Name: Tita Keith Date of : 1935 Date of Surgery: 03/31/25 Pre-operative diagnosis: Right peritrochanteric femur fracture Post-operative diagnosis: Same Procedure(s): Intertan nailing of right hip (CPT 73919) Surgeon: Trae Deleon M.D. Pro Shop Attendant(s): Verna PGY-I Anesthesia: Nerve Block and General EBL: 100 mL IVF: 500 mL crystalloid Medications: Two grams of Cefazolin were given. TXA 1g beginning and end of procedure Implants: Intertan 10mm x 44cm nail, 125 degree Clinical History/Indication for Surgery The patient is a 89 y.o. year old male who was presents for operative fixation of a right peritrochanteric femur fracture. Typical indications for surgery were reviewed and long Intertan nailing was recommended. Risks of surgery in general were reviewed including, but not limited to, infection, nonunion, need for additional procedures, failure of fixation which would require revision, damage to normal structures as well as medical complications such as WA, stroke, PE, DVT, and even . Patient and any family present were given opportunity to ask questions and consider his options ultimately electing to proceed with surgery. No guarantees were given or implied. Operative Narration The patient was identified in the pre-operative holding area. The surgical site was identified and marked. Informed consent was obtained. The patient was then brought to the operating room and placed supine on the operating table. Anesthesia was administered and care of the head, neck, and airway was maintained by the anesthesia staff throughout the entire procedure. Patient was placed onto the fracture table. A well padded perineal post was placed. Both feet were well padded and placed in traction. Preop fluoroscopy confirmed a successful closed reduction. All bony prominences were identified and padded. The operative leg was prepped and draped in the usual sterile fashion. A surgical timeout was performed. Antibiotics were confirmed to have been given. The 3.2mm guide pin was placed percutaneously into the greater trochanter under AP and lateral fluoroscopic guidance. Once correctly positioned the skin incision was made to allow passage of the entry reamer over the pin. The long ball-tipped guidewire was passed across fracture and centered in the distal femur. 11.5 mm reamer was passed. The length of the nail was measured. The correct length and diameter nail was impacted using the depth tower to diving judge the depth of placement. The proximal femur was prepared for the lag and worm screws with excellent compression achieved. Based on the patient's fracture pattern, the preloaded setscrew did not require locking. The distal screw was placed using perfect washoe technique. Final films were obtained and saved. All incisions were irrigated and closed in a layered fashion. Sterile dressings were applied. Once the patient was awakened from anesthesia, they were transported to the PACU in stable condition, having tolerated surgery well with no immediate complications. Postoperative Plan WBAT Abx x 24hrs DVT prophylaxis Follow up 4wks This operative report was prepared and signed by Trae Deleon MD at 03/31/25, 8:18 PM Pt bgl 277. Dr ngo notified and insulin order placed at this time documented in this encounter [facility] 04-02-2025 Note Formatting of this n ote might be different from the original. Confirmed pickup time of NOON by transport Online [employer] at phone number [phone]. Location of facility drop off is return back to [facility]. Facility notified via Careport, [facility] notified on secure chat. [facility] 04-02-2025 Note Formatting of this n ote might be different from the original. Confirmed pickup time of NOON by transport [employer] at phone number [phone]. Location of facility drop off is return back to [facility]. Facility notified via [employer], [facility] notified on secure chat. [facility] 04-02-2025 Note Formatting of this n ote might be different from the original. Transport requested NOON in Roundtrip. Awaiting time confirmation. T [facility] 04-02-2025 Note Formatting of this n ote might be different from the original. Transport requested NOON in Roundtrip. Awaiting time confirmation. T [facility] 04-02-2025 Note Formatting of this n ote might be different from the original. Discharge med list transmitted to TO RETURN BACK TO [facility] via Careport per TCC request. [facility] 04-02-2025 Note Formatting of this n ote might be different from the original. Discharge med list transmitted to TO RETURN BACK TO [facility] via Careport per T[facility] request. [facility] 04-02-2025 Note Formatting of this n ote might be different from the original. [facility]port response received from facility that pt may dc today and return ICF . Spoke w MD and DC orders placed and RON completed. CM tasked for transport and for dc PW MAR to be sent to facility. Dtr to be updated via phone of Transport time. [facility] 04-02-2025 Note Formatting of this n ote might be different from the original. [facility]port response received from facility that pt may dc today and return ICF . Spoke w MD and DC orders placed and RON completed. CM tasked for transport and for dc PW MAR to be sent to facility. Dtr to be updated via phone of Transport time. [facility] 04-02-2025 History of Presen t illness Narrative Images from the original note were not included. Speech-Language Pathology SPEECH LANGUAGE PATHOLOGY [facility] ED's Modified Barium Swallow Study Patient Name: Tita Keith Evaluation Date: 04/02/2025 Date of : 1935 Admission Date: 03/30/2025 5:49 PM Age: 89 y.o. Room[facility]Bed: [facility] A IMPRESSION: The patient presents with mild - moderate oral phase dysphagia associated with reduced oral bolus control, reduced/disorganized bolus formation and AP transit, and oral residue. There is moderate - marked pharyngeal phase dysphagia associated with base of tongue weakness, pharyngeal wall weakness, reduced hyolaryngeal excursion (at times), nasopharyngeal penetration and incomplete epiglottic deflection (at times), cervical osteophytes (which d/n appear to affect swallowing). There was observed laryngeal penetration with - thin liquid, (cup edge, straw) - mildly thick liquid, (cup edge) - puree, (teaspoon) and aspiration on re-swallows/residuals with - thin liquid, (cup edge, straw (mixed with residuals/secretions) - mildly thick liquid, (cup edge (residual textures vs. Current swallow) - puree, (residuals clearing mixed textures). Swallowing function continue with increased risk of aspiration. Continued concern for aspiration d/t inability to completely clearing pharyngeal secretions. Continue to feel due to advanced dementia pt is not appropriate for feeding tube (pt's daughter indicated that nutritional support is not part of his wishes therefore recommend Minced and moist vs. Continuation of Regular textures as most lenient diet. RECOMMENDATION: Recommend Minced and moist solids and Thin liquids (continue trials with CLAIMS PROCESSOR to determine benefit of mildly thick liquids) and meds crushed in puree and the following precautions: - Upright positioning for all PO intake - Small bites/sips - 1:1 Assistance - Alternate solid and liquids - Swallow x 2 per bolus - Clear your throat then swallow again - Single sips Penetration-Aspiration Scale: 7. Contrast enters the airway, crosses the plane of the vocal folds, and is not ejected from the airway despite effort. Pt would benefit from skilled acute CLAIMS PROCESSOR services oropharyngeal strengthening trial and Formal instruction of swallow strategies. Frequency: 3 days/wk for 2 weeks Barriers: Cognitive deficit, Impulsivity, and Limited safety awareness Prognosis: fair D/C Recommendations: ongoing speech therapy at next level of care as appropriate Concern with self feeding and self awareness. Pt is able to follow commands during exam for re-swallows. General Repeat MBS completed to assess the efficiency of his swallow function, rule out aspiration, and make recommendations regarding safe dietary consistencies, effective compensatory strategies, and safe eating environment. Subjective: Pt more lethargic. Needed to arouse for exam. Radiologist: Jayden Blackburn MD Prior MBSS?: Yes - Date: 01/22/23 - Results: Oral Phase: Pt with mild to moderate disorganized oral transit with lingual rocking prior to swallowing initiation. Loss of bolus to the vallecula with all textures tested (thin, nectar via spoon, pudding) during attempt for swallow. Mild oral residuals after pudding and tongue base and palatal staining after liquids. Pharyngeal Phase Pharyngeal: Moderate pharyngeal weakness-decreased tongue base retraction/pharyngeal constriction and epiglottic deflection-- Vellecular residuals with all-moderate thin, severe pudding, [id number] (difficulty to determine d/t unable to completely clear pudding prior to nectar). Pt does spontaneouly reswallow to assist with clearing, during reswallows transient spillage and accumulation on back of epiglottic falling and accumlating in laryngeal vestibule with eventual vocal cord penetration and anterior tracheal staining. Thicker liquids did not reduce residuals or aspiration risk. Greater vallecular reisduals and pharyngeal wall staing after pudding. Pt is at risk of aspiration with all textures. Suggest continue Palliative diet w/ strategies. Baseline Diet: Regular diet with Mildly thick liquids Current diet: Dietary Orders (From admission, onward) Start Ordered 03/31/251756 Adult diet Regular Diet effective now Question: Diet type Answer: Regular 03/31/251756 Textures tested: - thin liquid, (teaspoon, cup edge, straw) - mildly thick liquid, (teaspoon, cup edge) - puree, (teaspoon) Patient position: lateral Past Medical History: Medical History[1] Past Surgical History: Surgical History[2] Admission Diagnosis: Patient Active Problem List Diagnosis Date Noted Closed nondisplaced intertrochanteric fracture of right femur, initial encounter ([facility]) 03/30/2025 Severe malnutrition ([facility]) ([facility]) 12/07/2023 Pneumonia due to infectious organism, unspecified laterality, unspecified part of lung 12/06/2023 Dementia without behavioral disturbance ([facility]) 09/17/2023 COVID-19 09/10/2023 Hyperglycemia 01/19/2023 Hyperosmolar hyperglycemic state (HHS) ([facility]) 01/17/2023 New onset type 2 diabetes mellitus ([facility]) ([facility]) 03/01/2022 Pain: Pt denies any current pain. Reason for current admission: 89 y.o. year old male who was presents for operative fixation of a right peritrochanteric femur fracture. Typical indications for surgery were reviewed and long Intertan nailing was recommended. Risks of surgery in general were reviewed including, but not limited to, infection, nonunion, need for additional procedures, failure of fixation which would require revision, damage to normal structures as well as medical complications such as WA, stroke, PE, DVT, and even . Patient and any family present were given opportunity to ask questions and consider his options ultimately electing to proceed with surgery. No guarantees were given or implied. Oral Phase Pt with decreased oral control with spillage to the pharynx with all textures. Weak oral motor musculature with oral residuals after the swallow. These oral residuals spill to pharynx increasing accumulation in pharynx. Spillage of bolus to floor of mouth, oral tongue residuals as well as base of tongue coating. Pt does benefit from slow rate or cue for re-swallows to assist with clearing residuals. Pharyngeal Phase Moderate to severe deficits related to reduced tongue base retraction, pharyngeal constriction with nasopharyngeal penetration. Reduced epiglottic deflection and laryngeal elevation contributes to moderate to severe vellecular and piriform residuals, posterior and lateral pharyngeal wall staining. (Suspect baseline pharyngeal secretions as well that collected barium staining). Re-swallow were effective to reduced residuals, yet unable to completely clear. Thinner liquids improve clearing however resulted in intermittent aspiration as the residuals cleared with the thin and mildly thick liquids. Difficulty with determining if related to single texture alone vs. Accumulation of all residuals and secretions. Single bolus size and re-swallow minimized residuals and aspiration risk. Pt was able to follow instructions with slow presentation and 1:1 cues. Aspiration appears after larger drink of thin, on re-swallow, and trace amount with midly thick questionable. Penetration and staining of the back of the epiglottis throughout; re-swallow clearing some and residuals restaining laryngeal vestibule. Esophageal Phase The esophagus was not visualized below the level of the UES. Noted: Mild narrowing at UES with osteophytes. (Residuals appear related to pharyngeal weakness) Education The preliminary results of this evaluation were briefly shared with the patient. Very briefly discussed with pt. He did not verbalize any understanding. Goals Patient Stated Goal: Patient unable to participate in goal setting at this time. Encounter Problems Encounter Problems (Active) Swallowing Patient will tolerate the least restrictive diet consistency to allow for safe consumption of daily meals Start: 04/01/25 Expected End: 04/15/25 Patient will demonstrate safe swallowing Intervention/techniques Start: 04/01/25 Expected End: 04/15/25 Patient will use appropriate strategies for increased oralpharyngeal swallow function Start: 04/01/25 Expected End: 04/15/25 Patient will participate in instrumental assessment of swallowing as appropriate Start: 04/01/25 Expected End: 04/15/25 Therapy Time CLAIMS PROCESSOR Individual Minutes Time In: 0820 Time Out: 0850 Minutes: 30 BRITTNY Mattson [1] Past Medical History: Diagnosis Date Awareness under anesthesia lateral Benign prostatic hyperplasia Cataract Dementia (HCC) Diabetes mellitus (HCC) Dysphagia Hyperlipidemia Hypertension Major depressive disorder [2] Past Surgical History: Procedure Laterality Date BACK SURGERY ORIF FEMUR FRACTURE Right 03/31/2025 with intramedullary implant insertion Images from the original note were not included. OCCUPATIONAL THERAPY [facility] & ED's Name/MRN: Tita Keith ([id number]) Date: 04/02/2025 Chart reviewed. Attempted to see pt today. Daughter at bedside, reporting that he had his cookie swallow this AM and has been more drowsy and agitated this AM. Plan to re-attempt therapy evaluation as schedule permits, once pt is more alert. Reema Barrios OT Images from the original note were not included. Ortho Progress Note Patient: Tita Keith Date of : 1935 Acct: [id number] PCP: Marj Plasencia Date of Admission: 03/30/2025 Date of Service: Pt seen/examined on 04/02/2025 SUBJECTIVE: No acute events overnight. Resting comfortably in bed. Pain appears adequately well controlled. Patient is A&Ox 0 and unable to participate further in exam OBJECTIVE: General: alert and oriented to person, place and time, well-developed and well-nourished, in no acute distress VITALS: BP 149/76 Pulse 79 Temp 36.3 C (97.4 F) (Temporal) Resp 17 Ht 1.88 m (6' 2") Wt 59 kg (130 lb) SpO2 96% BMI 16.69 kg/m MSK exam: RLE Dressing: C/D/I Withdraws to touch in all distributions Sa/Romeo/DP/SP/T GROSSLY MOVING DF/EHL/PF DP pulse palpable; brisk capillary refill to toes Lab Results Component Value Date WBC 6.4 04/01/2025 HGB 10.9 (L) 04/01/2025 HCT 33.6 (L) 04/01/2025 PLT 144 04/01/2025 ALT 24 12/11/2023 AST 27 12/11/2023 NA 141 04/01/2025 K 5.0 04/01/2025 CL 103 04/01/2025 CREATININE 1.35 (H) 04/01/2025 BUN 30 (H) 04/01/2025 CO2 27 04/01/2025 INR 1.0 03/31/2025 HGBA1C 7.0 (H) 04/01/2025 Lab Results Component Value Date RH POS 03/31/2025 RH POS 03/31/2025 ASSESSMENT AND PLAN: This is a 89 y.o. male status post right CMN on 03/31/2025 -Weight bearing: WBAT -Immobilization: No immobilization needed -Consults: none -Antibiotics: Abx 24hrs post-op -Dressings: Keep bandage clean dry and intact for 7-10 days post operatively, then ok to leave open to air if incision is without drainage -Diet: no restrictions from ortho standpoint -Continue PT/OT -Pain control -Ice and elevate -DVT prophylaxis: per medicine -DC planning: home when clears PT -Ortho following, 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 Judy Anderson 04/02/2025 Images from the original note were not included. PHYSICAL THERAPY [facility] Initial Evaluation Name/MRN: Tita Keith ([id number]) Evaluation Date: 04/01/2025 Date of : 1935 Admission Date: 03/30/2025 5:49 PM Age: 89 y.o. Room[facility]Bed: [facility] Discharge Recommendation: [facility] Equipment Needed: No Assessment IMPRESSION: Patient presents with closed nondisplaced intertrochanteric fracture of R femur and is now s/p R ORIF IMN. WBAT to RLE. Pt presents with decreased functional mobility, decreased strength, decreased safety awareness with use of assistive device, new post op limitations and decreased balance. Upon evaluation, pt required Max Ax1 for bed mobility, Max Ax1 for transfers with fww and without device. Pt has medical history as indicated below that contributes to their clinical presentation. Baseline mobility unknown d/t current cognition. Pt would benefit from skilled PT services in order to increase safety and independence in functional mobility and daily tasks. Recommend SNF upon DC. Admitting Diagnosis: R intertrochanteric hip fracture, s/p ORIF IMN Prognosis: poor Performance Deficits /Impairments: Increased Pain, Decreased Functional Mobility, Decreased ADL status, Decreased Strength, Decreased Safety Awareness, Decreased Endurance, Decreased Balance, Decreased ROM, and Decreased Cognition Decision Making: Medium Complexity Subjective Patient pleasant and agreeable to therapy session this date. Per RN patient okay for therapy. Observation: R hip sx dressing clean and intact Vitals: 04/01/25 1130 BP: 128/81 Pulse: 86 Resp: 18 Temp: 36.9 C (98.5 F) SpO2: 95% Pain: Moore-Rubin Pain Ratin = Hurts even more Pain Location: R hip Past Medical History: Medical History[1] Past Surgical History: Surgical History[2] Admission Diagnosis: Patient Active Problem List Diagnosis Date Noted Closed nondisplaced intertrochanteric fracture of right femur, initial encounter ([facility]) 03/30/2025 Severe malnutrition ([facility]) ([facility]) 12/07/2023 Pneumonia due to infectious organism, unspecified laterality, unspecified part of lung 12/06/2023 Dementia without behavioral disturbance ([facility]) 09/17/2023 COVID-19 09/10/2023 Hyperglycemia 01/19/2023 Hyperosmolar hyperglycemic state (HHS) ([facility]) 01/17/2023 New onset type 2 diabetes mellitus ([facility]) ([facility]) 03/01/2022 Medical Precautions: No active isolations Proper PPE donned/doffed in accordance with facility standards. Fall Risk: Sandoval Fall Risk Score: 100 (High Risk) Precautions/Restrictions: Right LE Weight Bearing: Weight Bearing As Tolerated Family/Caregiver Present: none Overall Cognitive Status: Exceptions - Following commands: follows one step commands with repetition, follows multi-step commands with repetition, and inconsistently follows commands - Attention span: difficulty attending to directions - Memory: decreased recall of biographical information, decreased recall of precautions, decreased recall of recent events, and decreased short term memory - Safety judgement: decreased awareness of need for assistance and decreased awareness of need for safety - Problem solving: assistance required to generate solutions, assistance required to implement solutions, assistance required to identify errors made, and assistance required to correct errors made - Insights: not aware of deficits - Initiation: requires cues for all - Sequencing: requires cues for all Overall Orientation Status: Oriented to Person, Reports he is in [place] but unaware he is in the hospital. Vision: Not Assessed Hearing: normal Social/Functional History Home setup unknown d/t poor orientation and inability to verbalize and PLOF questioning. Prior Level of Function Prior Level of ADL Function: Required Assist Prior Level of Mobility: Required Assist; Device: Unknown Prior Level of Transfers: Required Assist Objective Lower Extremity Assessment AROM: WFL Strength: Pt demonstrates appropriate B LE and quad strength in order to safely participate in OOB mobility. Poor ability to sequencing MMT cues. Sensation: WFL Bed Mobility: Supine to sit: Max Assist Sit to supine: Max Assist Rolling to right: Max Assist Rolling to left: Max Assist Scooting: Max Assist Max Ax1 for all bed mobility required. Total of 4 supine<>sit transitions and rolling L<>R x3 completed d/t pt impulsivity, bowel incontinence and poor sitting balance. Max cues with hand over hand sequencing required for body mechanics, sequencing and overall positioning for self assistance. Limited return d/t poor cognition. Transfers Sit to stand: Max Assist Stand to sit: Max Assist Pt completed STS x4 with max cues and continuous education on proper sequencing, LE positioning, hand placement, device management and overall sequencing of activity. Hand over hand assist required. Pt was able to initiate transfer with given countdown for initial 25% then heavy Max Ax1 to achieve erect standing balance. Unable to take steps at this time. Increased time and effort required to complete all activity. Ambulation Did not assess this session. Outcome Measures AM-PAC How much HELP from another person do you currently need Turning from your back to your side while in a flat bed without using bedrails?: Total Moving from lying on your back to sitting on the side of a flat bed without using bedrails?: Total Moving to and from a bed to a chair (including a wheelchair)?: Total Standing up from a chair using your arms (wheelchair or bedside chair)?: Total Walking in a hospital room?: Total Stair climbing assessed?: No AM-PAC Inpatient Mobility Raw Score (No Stairs) : 5 [facility] Score: Static standing (1 or more minutes) Plan Pt would benefit from skilled acute PT services to address Strengthening, Gait Training, Balance Training, Self-Care/ADL Training, Functional Mobility Training, Endurance Training, Safety Education and Training, Pain Management, and Cognitive Reorientation. Frequency: 10 visits during current hospital admission or until additional recommendations are made Barriers: Pain, Impaired balance, Lower extremity weakness, Decreased endurance, Limited safety awareness, Confusion, New weightbearing/ROM restrictions, and Cognitive deficit Safety/Education Safety Safety Devices in place: All fall risk precautions in place, call light within reach, left in bed, bed alarm in place, gait belt, patient at risk for falls, and nurse notified Restraints: N/A Education Education Given To: patient Education Provided: PT Role, PT Goals, Plan of Care, Precautions, Transfer Training, IADL Safety, Equipment, Fall Prevention Education, Discharge Recommendations, and Benefits of Increasing Activity Education Method: Verbal and Demonstration Barriers to Learning: Cognition Education Outcome: Unable to Verbalize, Unable to Demonstrate, and Continued Education Needed Goals Patient Stated Goal: none stated Encounter Problems Encounter Problems (Active) Balance Patient will maintain static standing balance for 3 minutes with min assist in order to demonstrate decreased risk of falling. Start: 04/01/25 Expected End: 04/11/25 Patient will maintain static sitting balance for 10 minutes with CGA in order to demonstrate improved postural control and prepare for out of bed mobility. Start: 04/01/25 Expected End: 04/11/25 Exercise Patient will complete lower extremity exercises for 1-2 sets / 10-15 reps in order to improve strength and activity tolerance for mobility. Start: 04/01/25 Expected End: 04/11/25 Mobility Patient will ambulate 10 feet with min assist and least restrictive device in order to improve safety and independence with mobility. Start: 04/01/25 Expected End: 04/11/25 Safety Patient will adhere to hip precautions during all functional mobility and ADLs in order to demonstrate improved understanding and promote healing post op. Start: 04/01/25 Expected End: 04/11/25 Patient will recall/demonstrate weight bearing and/or ROM restrictions with all functional mobility in order to promote healing and safety with functional tasks. Start: 04/01/25 Expected End: 04/11/25 Transfers Patient will perform bed mobility with min assist in order to improve independence and prepare for out of bed mobility. Start: 04/01/25 Expected End: 04/11/25 Patient will complete functional transfer with least restrictive device with min assist in order to prepare for ambulation. Start: 04/01/25 Expected End: 04/11/25 Therapy Time Individual Co-Treatment Co-Evaluation Time In 1305 Time Out 1330 Minutes 25 Timed Code Treatment Minutes: 8 Minutes (ther act x1) Uday Fernandez PT Patient's Physical Therapy Plan of Care supervision is transferred to a [facility] Therapy Services Physical Therapist. Goals and/or treatment plan was established in collaboration with patient/family/other representatives. [1] Past Medical History: Diagnosis Date Awareness under anesthesia lateral Benign prostatic hyperplasia Cataract Dementia (HCC) Diabetes mellitus (HCC) Dysphagia Hyperlipidemia Hypertension Major depressive disorder [2] Past Surgical History: Procedure Laterality Date BACK SURGERY ORIF FEMUR FRACTURE Right 03/31/2025 with intramedullary implant insertion Speech-Language Pathology SPEECH LANGUAGE PATHOLOGY [facility] Bedside Swallow Evaluation Patient Name: Tita Keith Evaluation Date: 04/01/2025 Date of : 1935 Admission Date: 03/30/2025 5:49 PM Age: 89 y.o. Room/Bed: B1-155/B1-155 A IMPRESSION: S/s oropharyngeal dysphagia. + overt clinical s/s pulmonary compromise with PO. Risk factors for aspiration include dementia, h/o of dysphagia, acute hypoxic respiratory failure, and baseline cough + "full" vocal quality. RECOMMENDATION: Recommend Easy to chew solids and Mildly thick liquids and meds as tolerated and the following precautions: - Upright positioning for all PO intake - Slow rate of intake - Small bites/sips - 1:1 Assistance - No straws Dysphagia NOMS: Level 2: Individual is not able to swallow safely by mouth for nutrition and hydration, but may take some consistency with consistent maximal cues in a therapy env only. Alternative method of feeding is required. Pt would benefit from skilled acute CLAIMS PROCESSOR services to determine the safest route and consistency for nutritional intake as well as monitoring tolerance of the recommended diet. Frequency: 3 days/wk for 2 weeks Barriers: cognitive deficit, limited safety awareness, baseline "full" vocal quality Prognosis: fair D/C Recommendations: to be determined Discussed with daughter past diet at home. Stated pt has been on a dysphagia diet. Daughter agreeable to MBSS to determine the safest diet and liquid consistency. Subjective Patient lethargic, confused and flat. Pt was cooperative during PO trials. Seen upright in bed. Answers no basic questions with weak vocal quality. Follows few basic commands. Visitors at bedside - daughter. Spoke with ISABEL Manuel who cleared pt to be evaluated. RN stated that pt coughed on water earlier in the morning. Dysphagia History: Retrospective chart review revealed a history of CLAIMS PROCESSOR services as follows: 01/18/23-09/19/23. Pt demonstrated prolonged mastication, even with softened foods. Hyolaryngeal elevation appeared decreased on 1-2 swallows, however, improved on palpation with progression of trials. Signs of occasional change in vocal quality and increase in cough after drinking via straw were noted. Pt's diet started with minced and moist and ended with puree diet with thin liquids. Prior MBS completed on 01/22/23 with results indicating mild to moderate disorganized oral transit with lingual rocking. Bolus loss into vallecula with the following textures: thin, nectar via spoon, pudding. Mild oral residuals with pudding. Tongue base and palatal staining after liquids. Moderate pharyngeal-weakness with decreased tongue base retraction/pharyngeal constriction and epiglottic deflection. Pt had vallecular residuals with moderate thin, severe pudding, [id number]. Transient spillage accumulating in laryngeal vestibule with vocal fold penetration. Osteophytes were noted throughout cervical spine. Baseline Diet: mildly thick liquids with regular solids Current Diet: Dietary Orders (From admission, onward) Start Ordered 03/31/251756 Adult diet Regular Diet effective now Question: Diet type Answer: Regular 03/31/251756 Tube Feeding: no Tracheostomy: no Recent Chest Xray/CT of Chest: XR chest 1 view 03/30/2025 Impression Normal examination. Report Dictated on Electronically Signed By: Gerhard Hannah MD Electronically Signed Date/Time: 03/30/2025 7:24 PM EDT Oxygen: Oxygen Therapy: None (Room air) O2 Delivery Method: Nasal cannula O2 Flow Rate (L/min): 2 L/min Past Medical History: Medical History[1] Past Surgical History: Surgical History[2] Admission Diagnosis: Patient Active Problem List Diagnosis Date Noted Closed nondisplaced intertrochanteric fracture of right femur, initial encounter ([facility]) 03/30/2025 Severe malnutrition ([facility]) ([facility]) 12/07/2023 Pneumonia due to infectious organism, unspecified laterality, unspecified part of lung 12/06/2023 Dementia without behavioral disturbance ([facility]) 09/17/2023 COVID-19 09/10/2023 Hyperglycemia 01/19/2023 Hyperosmolar hyperglycemic state (HHS) ([facility]) 01/17/2023 New onset type 2 diabetes mellitus ([facility]/HCC) ([facility]) 03/01/2022 History of Present Illness: Patient Complaint: None stated. Pain: Pt denies any current pain. PPE Worn: gloves Objective Bedside swallow eval completed. Oral Motor Mechanism Facial Movement (CN VII) - Generalized weakness Labial Structure/Function (CN VII) - Reduced retraction, Reduced protrusion, Generalized weakness Lingual Structure/Function (CN XII) - Generalized weakness, reduced elevation and depression, reduced lateralization ([id number] tongue movement) Velopharyngeal Structure/Function (CN X & XI) - Pt had difficulty opening his mouth and sticking tongue out to visualize palate. Oral Hygiene: dried secretions, xerostomia Swallowing Examination PO Trials - ice chips, (teaspoon, fed by clinician) - thin liquid, (cup edge, self administered) - mildly thick liquid, (teaspoon, fed by clinician) - puree, (teaspoon, self administered) - regular solids Oral Phase Pt with impaired and delayed oral receipt of PO trials. Pt demonstrated difficulty opening his mouth wide enough. No anterior spillage. Mastication with patricia crackers dipped in applesauce appeared prolonged. Oral transit time appears WFL. No oral residue. Pharyngeal Phase Hyolaryngeal excursion clinically appears reduced and slightly delayed per palpation. 1-2 swallows palpated per bolus, likely indicative of impaired pharyngeal clearance. Overt clinical s/s pulmonary compromise with ice chips, mildly thick liquids, and thin liquids, as evidenced by immediate cough, immediate throat clear, altered vocal quality. Education Education Given: role of therapy, diet recommendations Given To: patient and daughter Response: no evidence of learning and requires frequent reminders. Goals Patient Stated Goal: None stated. Encounter Problems Encounter Problems (Active) Swallowing Patient will tolerate the least restrictive diet consistency to allow for safe consumption of daily meals Start: 04/01/25 Expected End: 04/15/25 Patient will demonstrate safe swallowing Intervention/techniques Start: 04/01/25 Expected End: 04/15/25 Patient will use appropriate strategies for increased oralpharyngeal swallow function Start: 04/01/25 Expected End: 04/15/25 Patient will participate in instrumental assessment of swallowing as appropriate Start: 04/01/25 Expected End: 04/15/25 Therapy Time CLAIMS PROCESSOR Individual Minutes Time In: 1030 Time Out: 1049 Minutes: 19 Lexi Reynolds CLAIMS PROCESSOR Graduate Clinician [1] Past Medical History: Diagnosis Date Awareness under anesthesia lateral Benign prostatic hyperplasia Cataract Dementia (HCC) Diabetes mellitus (HCC) Dysphagia Hyperlipidemia Hypertension Major depressive disorder [2] Past Surgical History: Procedure Laterality Date BACK SURGERY ORIF FEMUR FRACTURE Right 03/31/2025 with intramedullary implant insertion Cosigned by BRITTNY Mattson at 04/01/2025 3:21 PM EDT Nutrition rescreen completed. Patient referred to the Dietitian. BMI 16.69. Hospitalist Progress Note 04/01/2025 Subjective: Admit Date: 03/30/2025 PCP: Marj Plasencia Room#: B1-155/B1-155 A BRIEF HOSPITAL COURSE: 89 y.o. male with PMHx of severe dementia (Aox0-1), type 2 diabetes, hypertension, hyperlipidemia. Patient was sent from snf (where he lives) to ED status post fall. XR showed right proximal femur intertrochanteric fracture. Patient is disoriented and unable to provide any history. Orthopedic surgery completed successful ORIF with right hip cephalomedullary nail on 03/31. Interval History: No overnight issues. Patient seen lying in bed eating small amounts of a muffin. Patient is alert but is not oriented to self or location or daughter. Patient states that he has mild pain in his right hip but feels better than he did yesterday. Patient admits to intermittent shortness of breath. Daughter is at bedside stating that patient appears better than he did yesterday. Case and plan discussed with patient and bedside nurse. All questions answered. Adult diet Regular 24HR INTAKE/OUTPUT: Intake/Output Summary (Last 24 hours) at 04/01/2025 0921 Last data filed at 04/01/2025 0620 Gross per 24 hour Intake 510 ml Output 1000 ml Net -490 ml Past Medical History: Medical History[1] LABS: CBC: Recent Labs 03/31/25 0314 03/31/25 1031 04/01/25 0821 WBC 6.8 6.8 6.4 RBC 3.76* 3.94* 3.62* HGB 11.4* 11.8* 10.9* HCT 33.7* 35.2* 33.6* MCV 89.6 89.3 92.8 RDW 12.7 12.6 12.3 PLT 120* 119* 144 BMP: Recent Labs 03/31/25 0314 03/31/25 1031 04/01/25 0821 NA 139 137 141 K 4.4 4.2 5.0 CL 103 102 103 CO2 26 27 27 BUN 35* 30* 30* CREATININE 1.33* 1.22 1.35* GLUCOSE 295* 299* 308* CALCIUM 9.0 9.1 9.3 ANIONGAP 10 8 11 LIVER PROFILE:No results for input(s): "AST", "ALT", "BILITOT", "ALKPHOS", "PROT" in the last 72 hours. No lab exists for component: LABALBU PT/INR: Recent Labs 03/31/25313 PROTIME 10.9 INR 1.0 CARDIAC ENZYMES: No results for input(s): "TROPONINI" in the last 72 hours. Procalcitonin: No results found for: "PROCAL" COVID-19 PCR: No results for input(s): "COVID19" in the last 72 hours. Objective: Vitals: BP 148/86 Pulse 82 Temp 36.4 C (97.6 F) (Temporal) Resp 17 Ht 6' 2" (1.88 m) Wt 130 lb (59 kg) SpO2 92% BMI 16.69 kg/m Pulse Ox: SpO2 Av.1 % Min: 91 % Max: 100 % Supplemental O2: O2 Flow Rate (L/min): 2 L/min Physical Exam Patient lying in bed with daughter feeding him a muffin chronically ill-appearing white male Intermittently alert, not oriented to self or location or daughter Lungs are mostly clear, small crackles in right lung Abdomen soft but feels possibly full stool Silverio catheter in place Right hip postoperative changes Medications: Scheduled PRN Scheduled Meds[2] PRN Meds[3] Continuous Continuous Meds[4] Assessment Acute, acute on chronic, unstable/uncontrolled chronic problems/diagnoses: Right proximal femur intertrochanteric fracture Unwitnessed fall, unclear etiology S/P ORIF on 03/31 Will restart DVT ppx with ASA 81 BID x 30 days Pain control PT/OT cannot rec SNF given inability to follow commands Acute hypoxic respiratory failure Patient has been intermittently placed on 1 to 2 L of oxygen --appears for comfort Will remove oxygen, if patient continues to be hypoxic will order chest x-ray Dysphagia Daughter states patient is on a dysphagia diet at the facility Will have speech see patient Accidental fall As above Stable chronic problems affecting care, new non-acute diagnoses: Severe dementia Continue home lorazepam 0.25 mg 4 times daily as needed, mirtazapine 50 mg daily, quetiapine 12.5 mg twice daily Type 2 diabetes Continue home glargine 4 units nightly Will add sliding scale insulin given steroid use Hypertension-continue home lisinopril Hyperlipidemia BPH-continue Flomax 0.8 mg nightly Plan As a result of the above findings & factors, the following mgmt was pursued: - as above - am labs, replace lytes prn - PT/OT/CM/SW - delirium precautions: increase activity - DVT prophylaxis: SCDs and encourage ambulation Advance Directive: DNR-CCA Anticipated Discharge - Date - 2 days - Location - Pending dispo choice - Pending the following -after OR and postop course Total time spent (which include face to face and non face to face encounters) : 35 minutes Extended Emergency Contact Information Primary Emergency Contact: Kayleigh Scott Mobile Relation: Child Secondary Emergency Contact: Mike Keith Mobile Relation: Child Antonio Cardona DO Division of Hospitalist Medicine [facility] [1] Past Medical History: Diagnosis Date Awareness under anesthesia lateral Benign prostatic hyperplasia Cataract Dementia (HCC) Diabetes mellitus (HCC) Dysphagia Hyperlipidemia Hypertension Major depressive disorder [2] cholecalciferol, 2,000 Units, Oral, Daily docusate sodium, 100 mg, Oral, BID erythromycin, 1 Application, Left Eye, Nightly insulin glargine, 4 Units, SubCUTAneous, Nightly insulin lispro, 0-12 Units, SubCUTAneous, TID WC lisinopril, 20 mg, Oral, Daily Melatonin, 5 mg, Oral, Nightly mirtazapine, 15 mg, Oral, Nightly QUEtiapine, 12.5 mg, Oral, BID sodium chloride 0.9%, 5-40 mL, IntraVENous, q12h tamsulosin, 0.8 mg, Oral, Nightly [3] PRN medications: acetaminophen, dextrose, dextrose, glucagon (rDNA), glucose, HYDROmorphone, LORazepam, naloxone, ondansetron ODT OR ondansetron, sodium chloride, sodium chloride 0.9% [4] Images from the original note were not included. OCCUPATIONAL THERAPY [facility] ED's Name/MRN: Tita Keith ([id number]) Date: 04/01/2025 OT orders received and chart reviewed. Per RN, pt OK to attempt, however pt not following commands well. Upon arrival to room, I introduced myself and role to pt. Pt was awake in bed, sitting with HOB elevated. He was unable to state his name or answer the question correctly when provided with options. He did not follow any simple commands and did not speak. Pt not appropriate for therapy at this time d/t very poor cognition and inability to follow basic commands. Plan to re-assess tomorrow to see if pts mentation improves at all, however I am not optimistic as notes indicate he is A&Ox 0 at baseline. Reema Barrios OT Images from the original note were not included. Adult Hip and Knee Reconstruction Service Patient Name: Tita Keith Date of : 1935 Date: 04/01/25 Assessment: s/p Right CMN on 03/31/2025 doing well Plan: -Weight bearing: WBAT -Immobilization: No immobilization needed -Consults: none -Antibiotics: Abx 24hrs post-op -Dressings: Keep bandage clean dry and intact for 7-10 days post operatively, then ok to leave open to air if incision is without drainage -Diet: no restrictions from ortho standpoint -Continue PT/OT -Pain control -Ice and elevate -DVT prophylaxis: per medicine -DC planning: home when clears PT -Ortho following, 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 Subjective: Patient is tired upon visit, he is able to participate some in exam but is not responding to questioning. Pain appears to be well controlled with pain medication. Patient has not been out of bed yet. Silverio in place. Starting PT/OT today if able to participate. Denies nausea or vomiting. Denies numbness/tingling. Denies SOB or calf pain. Medications: Scheduled Meds[1] Physical Exam: Vitals: 04/01/25 0456 BP: 122/87 Pulse: 79 Resp: 18 Temp: 36.2 C (97.2 F) SpO2: 96% Intake and Output Summary (Last 24 hours) at Date Time Intake/Output Summary (Last 24 hours) at 04/01/2025 0715 Last data filed at 04/01/2025 0620 Gross per 24 hour Intake 510 ml Output 1000 ml Net -490 ml General appearance - no acute distress Musculoskeletal - Dressing C/D/I Fires quad/TA/EHL/GSC SILT SP/DP/TN WWP distally Posterior tibial pulse 2+ bilaterally Calves soft, nontender bilateral. No edema, erythema or warmth noted to calves. Labs: Lab Results Component Value Date HGB 11.8 (L) 03/31/2025 , Lab Results Component Value Date WBC 6.8 03/31/2025 HGB 11.8 (L) 03/31/2025 HCT 35.2 (L) 03/31/2025 MCV 89.3 03/31/2025 PLT 119 (L) 03/31/2025 , Lab Results Component Value Date GLUCOSE 299 (H) 03/31/2025 CALCIUM 9.1 03/31/2025 NA 137 03/31/2025 K 4.2 03/31/2025 CO2 27 03/31/2025 CL 102 03/31/2025 BUN 30 (H) 03/31/2025 CREATININE 1.22 03/31/2025 , Lab Results Component Value Date CRP 60.0 (H) 09/14/2023 , and No results found for: "SEDRATE", "SEDRATEBYMOD" Rads: Radiological Procedure reviewed. Signed by: Rahel Redman PA-C [1] cholecalciferol, 2,000 Units, Oral, Daily docusate sodium, 100 mg, Oral, BID erythromycin, 1 Application, Left Eye, Nightly insulin glargine, 4 Units, SubCUTAneous, Nightly lisinopril, 20 mg, Oral, Daily Melatonin, 5 mg, Oral, Nightly mirtazapine, 15 mg, Oral, Nightly QUEtiapine, 12.5 mg, Oral, BID sodium chloride 0.9%, 5-40 mL, IntraVENous, q12h tamsulosin, 0.8 mg, Oral, Nightly Hospitalist Progress Note 03/31/2025 Subjective: Admit Date: 03/30/2025 PCP: Marj Plasencia Room#: BRIEF HOSPITAL COURSE: 89 y.o. male with PMHx of severe dementia (Aox0-1), type 2 diabetes, hypertension, hyperlipidemia. Patient was sent from snf (where he lives) to ED status post fall. XR showed right proximal femur intertrochanteric fracture. Patient is disoriented and unable to provide any history. Orthopedic surgery saw patient in the ER and plan for ORIF with right hip cephalomedullary nail Interval History: No overnight issues. Patient is alert but is not oriented to self or location or daughter. Patient does not provide history regarding pain. Daughter is at bedside stating that patient appears in intermittent pain but seems to be controlled by medications. Case and plan discussed with patient and bedside nurse. All questions answered. NPO diet with enteral medications 24HR INTAKE/OUTPUT: Intake/Output Summary (Last 24 hours) at 03/31/2025 0854 Last data filed at 03/31/2025 0626 Gross per 24 hour Intake -- Output 50 ml Net -50 ml Past Medical History: Medical History[1] LABS: CBC: Recent Labs 03/31/25313 WBC 6.8 RBC 3.76* HGB 11.4* HCT 33.7* MCV 89.6 RDW 12.7 PLT 120* BMP: Recent Labs 03/31/25313 NA 139 K 4.4 CL 103 CO2 26 BUN 35* CREATININE 1.33* GLUCOSE 295* CALCIUM 9.0 ANIONGAP 10 LIVER PROFILE:No results for input(s): "AST", "ALT", "BILITOT", "ALKPHOS", "PROT" in the last 72 hours. No lab exists for component: LABALBU PT/INR: Recent Labs 03/31/25313 PROTIME 10.9 INR 1.0 CARDIAC ENZYMES: No results for input(s): "TROPONINI" in the last 72 hours. Procalcitonin: No results found for: "PROCAL" COVID-19 PCR: No results for input(s): "COVID19" in the last 72 hours. Objective: Vitals: BP (!) 185/118 (BP Location: Left arm, Patient Position: Lying) Pulse 91 Temp 36.4 C (97.5 F) (Oral) Resp 18 Ht 6' 2" (1.88 m) Wt 130 lb (59 kg) SpO2 94% BMI 16.69 kg/m Pulse Ox: SpO2 Av.8 % Min: 93 % Max: 96 % Supplemental O2: Physical Exam Chronically ill-appearing white male Intermittently alert, not oriented to self or location or daughter Abdomen soft but feels possibly full stool Silverio catheter in place Right hip is swollen and warm Medications: Scheduled PRN Scheduled Meds[2] PRN Meds[3] Continuous Continuous Meds[4] Assessment Acute, acute on chronic, unstable/uncontrolled chronic problems/diagnoses: Right proximal femur intertrochanteric fracture Unwitnessed fall, unclear etiology Acute right intertrochanteric femur fracture Ortho to take patient for OR on 03/31 Hold DVT prophylaxis, pain control Accidental fall As above Stable chronic problems affecting care, new non-acute diagnoses: Severe dementia -continue home lorazepam 0.25 mg 4 times daily as needed, mirtazapine 50 mg daily, quetiapine 12.5 mg twice daily Type 2 diabetes-continue glargine 4 units nightly Hypertension-continue home lisinopril Hyperlipidemia BPH-continue Flomax 0.8 mg nightly Plan As a result of the above findings & factors, the following mgmt was pursued: - as above - am labs, replace lytes prn - PT/OT/CM/SW - delirium precautions: increase activity - DVT prophylaxis: SCDs and encourage ambulation Advance Directive: Prior Anticipated Discharge - Date - 2 days - Location - Pending PT/OT - Pending the following -after OR and postop course Total time spent (which include face to face and non face to face encounters) : 35 minutes Extended Emergency Contact Information Primary Emergency Contact: Kayleigh Scott Mobile Relation: Child Secondary Emergency Contact: Mike Keith Mobile Relation: Carlos Antonio Homero Cardona DO Division of Hospitalist Medicine [facility] [1] Past Medical History: Diagnosis Date Dementia (HCC) Diabetes mellitus (HCC) Hyperlipidemia Hypertension [2] [3] [4] dextrose 5 % and sodium chloride 0.45 %, 75 mL/hr, Last Rate: 75 mL/hr (03/31/25 0141) ASSESSMENT: 89 y.o. male with right intertrochanteric femur fracture PLAN: -Plan for OR for right hip cephalomedullary nail today 03/31/[address] Deleon -NPO -Cleared per medicine -Consent obtained over phone from Kayleigh Mendez [facility] power of city attorney -Pre-op workup complete -Ice -APS consulted -Bedrest -Admit to medicine -Pain control & medical management per primary -Please hold DVT prophylaxis in anticipation of OR -Please comment on clearance in case of OR, page ortho file conversion operator with clearance status documented in this encounter [facility] 04-02-2025 Note Hospitalist Discharg e Summary Tita Keith : 1935 Admit date: 03/30/2025 Discharge date: 04/02/2025 Admitting Physician: Shay Velazco MD Primary Care Physician: Marj Plasencia Visit Status: inpatient Code Status: DNR-CCA BRIEF HOSPITAL COURSE: 89 y.o. male with PMHx of severe dementia (Aox0-1), type 2 diabetes, hypertension, hyperlipidemia. Patient was sent from snf (where he lives) to ED status post fall. XR showed right proximal femur intertrochanteric fracture. Patient is disoriented and unable to provide any history. Orthopedic surgery completed successful ORIF with right hip cephalomedullary nail on 03/31 without complications. Patient was slated for SNF per PT and OT; [facility]. Acute, acute on chronic, unstable/uncontrolled chronic problems/discharge diagnoses: Right proximal femur intertrochanteric fracture Unwitnessed fall, unclear etiology S/P ORIF on 03/31 DVT ppx with ASA 81 BID x 30 days Pain control with Tylenol --can give low-dose opiate if needed Patient to go to SNF for rehab Acute hypoxic respiratory failure, resolved Patient has been intermittently placed on 1 to 2 L of oxygen --appears for comfort Patient is on room air Dysphagia Daughter states patient is on a dysphagia diet at the facility CLAIMS PROCESSOR recommended MBS This is currently pending, will discharge on rec'ed diet Accidental fall As above Stable chronic problems affecting care, new non-acute discharge diagnoses: Severe dementia Continue home lorazepam 0.25 mg 4 times daily as needed, mirtazapine 50 mg daily, quetiapine 12.5 mg twice daily Type 2 diabetes Continue home glargine 4 units nightly Will add sliding scale insulin given steroid use Hypertension-continue home lisinopril Hyperlipidemia BPH-continue Flomax 0.8 mg nightly Medical History[1] Procedures: ORIF on 03/31 Hospital Course: See discharge diagnoses list above and medication adjustments below in med rec.The patient is discharged in improved and stable condition. Consults: IP CONSULT TO ORTHOPAEDIC SURGERY IP CONSULT TO ORTHOPAEDIC SURGERY IP CONSULT TO WOUND PREVENTION Discharge Instructions: Diet: Dietary Orders (From admission, onward) Start Ordered 03/31/251756 Adult diet Regular Diet effective now Question: Diet type Answer: Regular 03/31/251756 Activity: as tolerated Recommended Outpatient Tests: Disposition: Patient discharged in stable condition to SNF. Greater than 31 minutes spent discharging the patient and coming up with patient discharge plan. Vitals: BP (!) 165/107 (BP Location: Left arm, Patient Position: Lying) Pulse 71 Temp 36.3 ?C (97.3 ?F) (Temporal) Resp 16 Ht 6' 2" (1.88 m) Wt 130 lb (59 kg) SpO2 95% BMI 16.69 kg/m? Pulse Ox: SpO2 Av.3 % Min: 95 % Max: 96 % Supplemental O2: O2 Flow Rate (L/min): 2 L/min Physical Exam Patient lying in bed with daughter in chair at bedside clear chronically ill-appearing white male Intermittently alert, not oriented to self or location or daughter Lungs are clear Abdomen soft but feels possibly full stool Right hip postoperative dressing, mild tenderness to palpation LABS: Recent Labs 03/31/25 0314 03/31/25 1031 04/01/25 0821 NA 139 137 141 K 4.4 4.2 5.0 CL 103 102 103 CO2 26 27 27 BUN 35* 30* 30* CREATININE 1.33* 1.22 1.35* GLUCOSE 295* 299* 308* CALCIUM 9.0 9.1 9.3 Recent Labs 03/31/25 0314 03/31/25 1031 04/01/25 0821 WBC 6.8 6.8 6.4 RBC 3.76* 3.94* 3.62* HGB 11.4* 11.8* 10.9* HCT 33.7* 35.2* 33.6* MCV 89.6 89.3 92.8 MCH 30.3 29.9 30.1 MCHC 33.8 33.5 32.4 RDW 12.7 12.6 12.3 PLT 120* 119* 144 MPV 11.1 11.4 11.0 Discharge Medications: Medication List START taking these medications acetaminophen 325 MG tablet Commonly known as: Tylenol Take 3 tablets (975 mg) by mouth every 6 hours as needed for mild pain (1-3) or moderate pain (4-6) for up to 10 days. aspirin 81 MG EC tablet Take 1 tablet (81 mg) by mouth 2 times daily for 58 doses. CONTINUE taking these medications cholecalciferol 50 MCG (2000 UT) capsule Commonly known as: Vitamin D-3 docusate sodium 100 MG capsule Commonly known as: Colace erythromycin 5 MG/GM ophthalmic ointment Commonly known as: Romycin insulin glargine 100 UNIT/ML injection Commonly known as: Lantus Inject 4 Units under the skin Nightly. lisinopril 20 MG tablet LORazepam 0.5 MG tablet Commonly known as: Ativan Melatonin 3 MG capsule mirtazapine 15 MG tablet Commonly known as: Remeron QUEtiapine 25 MG tablet Commonly known as: SEROquel Take 0.5 tablets (12.5 mg) by mouth 2 times daily. tamsulosin 0.4 MG 24 hr capsule Commonly known as: Flomax STOP taking these medications morphine 10 MG/5ML solution Where to Get Your Medications Information about where to get these medications is not yet available Ask your nurse or doctor a (more content not included)... [facility] 04-02-2025 Hospital course Narrative Hospitalist Discharge Summary Tita Keith : 1935 Admit date: 03/30/2025 Discharge date: 04/02/2025 Admitting Physician: Shay Velazco MD Primary Care Physician: Marj Plasencia Visit Status: inpatient Code Status: DNR-CCA BRIEF HOSPITAL COURSE: 89 y.o. male with PMHx of severe dementia (Aox0-1), type 2 diabetes, hypertension, hyperlipidemia. Patient was sent from snf (where he lives) to ED status post fall. XR showed right proximal femur intertrochanteric fracture. Patient is disoriented and unable to provide any history. Orthopedic surgery completed successful ORIF with right hip cephalomedullary nail on 03/31 without complications. Patient was slated for SNF per PT and OT; [facility]. Acute, acute on chronic, unstable/uncontrolled chronic problems/discharge diagnoses: Right proximal femur intertrochanteric fracture Unwitnessed fall, unclear etiology S/P ORIF on 03/31 DVT ppx with ASA 81 BID x 30 days Pain control with Tylenol --can give low-dose opiate if needed Patient to go to SNF for rehab Acute hypoxic respiratory failure, resolved Patient has been intermittently placed on 1 to 2 L of oxygen --appears for comfort Patient is on room air Dysphagia Daughter states patient is on a dysphagia diet at the facility CLAIMS PROCESSOR recommended MBS This is currently pending, will discharge on rec'ed diet Accidental fall As above Stable chronic problems affecting care, new non-acute discharge diagnoses: Severe dementia Continue home lorazepam 0.25 mg 4 times daily as needed, mirtazapine 50 mg daily, quetiapine 12.5 mg twice daily Type 2 diabetes Continue home glargine 4 units nightly Will add sliding scale insulin given steroid use Hypertension-continue home lisinopril Hyperlipidemia BPH-continue Flomax 0.8 mg nightly Medical History[1] Procedures: ORIF on 03/31 Hospital Course: See discharge diagnoses list above and medication adjustments below in [facility] rec.The patient is discharged in improved and stable condition. Consults: IP CONSULT TO ORTHOPAEDIC SURGERY IP CONSULT TO ORTHOPAEDIC SURGERY IP CONSULT TO WOUND PREVENTION Discharge Instructions: Diet: Dietary Orders (From admission, onward) Start Ordered 03/31/251756 Adult diet Regular Diet effective now Question: Diet type Answer: Regular 03/31/251756 Activity: as tolerated Recommended Outpatient Tests: Disposition: Patient discharged in stable condition to SNF. Greater than 31 minutes spent discharging the patient and coming up with patient discharge plan. Vitals: BP (!) 165/107 (BP Location: Left arm, Patient Position: Lying) Pulse 71 Temp 36.3 C (97.3 F) (Temporal) Resp 16 Ht 6' 2" (1.88 m) Wt 130 lb (59 kg) SpO2 95% BMI 16.69 kg/m Pulse Ox: SpO2 Av.3 % Min: 95 % Max: 96 % Supplemental O2: O2 Flow Rate (L/min): 2 L/min Physical Exam Patient lying in bed with daughter in chair at bedside clear chronically ill-appearing white male Intermittently alert, not oriented to self or location or daughter Lungs are clear Abdomen soft but feels possibly full stool Right hip postoperative dressing, mild tenderness to palpation LABS: Recent Labs 03/31/25 0314 03/31/25 1031 04/01/25 0821 NA 139 137 141 K 4.4 4.2 5.0 CL 103 102 103 CO2 26 27 27 BUN 35* 30* 30* CREATININE 1.33* 1.22 1.35* GLUCOSE 295* 299* 308* CALCIUM 9.0 9.1 9.3 Recent Labs 03/31/25 0314 03/31/25 1031 04/01/25 0821 WBC 6.8 6.8 6.4 RBC 3.76* 3.94* 3.62* HGB 11.4* 11.8* 10.9* HCT 33.7* 35.2* 33.6* MCV 89.6 89.3 92.8 MCH 30.3 29.9 30.1 MCHC 33.8 33.5 32.4 RDW 12.7 12.6 12.3 PLT 120* 119* 144 MPV 11.1 11.4 11.0 Discharge Medications: Medication List START taking these medications acetaminophen 325 MG tablet Commonly known as: Tylenol Take 3 tablets (975 mg) by mouth every 6 hours as needed for mild pain (1-3) or moderate pain (4-6) for up to 10 days. aspirin 81 MG EC tablet Take 1 tablet (81 mg) by mouth 2 times daily for 58 doses. CONTINUE taking these medications cholecalciferol 50 MCG (1999 UT) capsule Commonly known as: Vitamin D-3 docusate sodium 100 MG capsule Commonly known as: Colace erythromycin 5 MG/GM ophthalmic ointment Commonly known as: Romycin insulin glargine 100 UNIT/ML injection Commonly known as: Lantus Inject 4 Units under the skin Nightly. lisinopril 20 MG tablet LORazepam 0.5 MG tablet Commonly known as: Ativan Melatonin 3 MG capsule mirtazapine 15 MG tablet Commonly known as: Remeron QUEtiapine 25 MG tablet Commonly known as: SEROquel Take 0.5 tablets (12.5 mg) by mouth 2 times daily. tamsulosin 0.4 MG 24 hr capsule Commonly known as: Flomax STOP taking these medications morphine 10 MG/5ML solution Where to Get Your Medications Information about where to get these medications is not yet available Ask your nurse or doctor about these medications acetaminophen 325 MG tablet aspirin 81 MG EC tablet Recommended Follow-up: Trae Deleon MD [address] [place] [address] Follow up Complexity of Follow up: [] Moderate Complexity: follow up within 7-14 calendar days (21910) [x] Severe Complexity: follow up within 7 calendar days (62489) Follow up Testing, Pending results or Referrals at Transitional Care Visit: [x] yes [] no Instructions to MA: Please call patient on day after discharge (must document patient contacted within 2 business days of discharge). Follow up questions for MA: 1. Did you get medications filled and taking them as instructed from discharge? 2. Are you following your discharge instructions from your hospital stay? 3. Please confirm patient is scheduled for a follow up appointment within the above time frame. Signed: Antonio Cardona DO Division of Hospitalist Medicine [facility] 04/02/2025, 9:32 AM [1] Past Medical History: Diagnosis Date Awareness under anesthesia lateral Benign prostatic hyperplasia Cataract Dementia (HCC) Diabetes mellitus (HCC) Dysphagia Hyperlipidemia Hypertension Major depressive disorder documented in this encounter [facility] 04-02-2025 Note Formatting of this n ote might be different from the original. Care Management Progress Note Pt's chart reviewed. Received call back from pt's daughter who is in pt's room. CM met with family member at bedside. Confirmed pt has been at [facility] for 2 yrs and was at another facility prior for 1. Required assist with transfers sit to stand then once up could ambulate length of facility hallways w walker indep. With Dementia diag. Pt does respond well to sensory mats. Baby dolls. CM messaged Facility regarding therapy rec for snf w inability to follow commands requesting pt be able to return unskilled and should mentation improve facility could request skilled time. Awaiting facility response. Length of Stay (Days): 3 GMLOS: No GMLOS Documented T [facility] 04-02-2025 Note Formatting of this n ote might be different from the original. Care Management Progress Note Pt's chart reviewed. Received call back from pt's daughter who is in pt's room. CM met with family member at bedside. Confirmed pt has been at [facility] for 2 yrs and was at another facility prior for 1. Required assist with transfers sit to stand then once up could ambulate length of facility hallways w walker indep. With Dementia diag. Pt does respond well to sensory mats. Baby dolls. CM messaged Facility regarding therapy rec for snf w inability to follow commands requesting pt be able to return unskilled and should mentation improve facility could request skilled time. Awaiting facility response. Length of Stay (Days): 3 GMLOS: No GMLOS Documented [facility] 04-02-2025 Note Care Management Prog ress Note Pt's chart reviewed. Received call back from pt's daughter who is in pt's room. CM met with family member at bedside. Confirmed pt has been at [facility] for 2 yrs and was at another facility prior for 1. Required assist with transfers sit to stand then once up could ambulate length of facility hallways w walker indep. With Dementia diag. Pt does respond well to sensory mats. Baby dolls. CM messaged Facility regarding therapy rec for snf w inability to follow commands requesting pt be able to return unskilled and should mentation improve facility could request skilled time. Awaiting facility response. Length of Stay (Days): 3 GMLOS: No GMLOS Documented [facility] 04-02-2025 Note Formatting of this n ote might be different from the original. Referral placed to RETURN BACK TO [facility] via [facility] per TCC request. Await review and response regarding ability to accept. TCC notified. [facility] 04-02-2025 Note Formatting of this n ote might be different from the original. Referral placed to RETURN BACK TO [facility] via [facility] per TCC request. Await review and response regarding ability to accept. TCC notified. T [facility] 04-02-2025 Note Referral placed to R ETURN BACK TO [facility] via [facility] per TCC request. Await review and response regarding ability to accept. TCC notified. [facility] 04-02-2025 Note Ortho Progress Note Patient: Tita Keith Date of : 1935 Acct: [id number] PCP: Marj Plasencia Date of Admission: 03/30/2025 Date of Service: Pt seen/examined on 04/02/2025 SUBJECTIVE: No acute events overnight. Resting comfortably in bed. Pain appears adequately well controlled. Patient is A&Ox 0 and unable to participate further in exam OBJECTIVE: General: alert and oriented to person, place and time, well-developed and well-nourished, in no acute distress VITALS: BP 149/76 Pulse 79 Temp 36.3 ?C (97.4 ?F) (Temporal) Resp 17 Ht 1.88 m (6' 2") Wt 59 kg (130 lb) SpO2 96% BMI 16.69 kg/m? MSK exam: RLE Dressing: C/D/I Withdraws to touch in all distributions Sa/Romeo/DP/SP/T GROSSLY MOVING DF/EHL/PF DP pulse palpable; brisk capillary refill to toes Lab Results Component Value Date WBC 6.4 04/01/2025 HGB 10.9 (L) 04/01/2025 HCT 33.6 (L) 04/01/2025 PLT 144 04/01/2025 ALT 24 12/11/2023 AST 27 12/11/2023 NA 141 04/01/2025 K 5.0 04/01/2025 CL 103 04/01/2025 CREATININE 1.35 (H) 04/01/2025 BUN 30 (H) 04/01/2025 CO2 27 04/01/2025 INR 1.0 03/31/2025 HGBA1C 7.0 (H) 04/01/2025 Lab Results Component Value Date RH POS 03/31/2025 RH POS 03/31/2025 ASSESSMENT AND PLAN: This is a 89 y.o. male status post right CMN on 03/31/2025 -Weight bearing: WBAT -Immobilization: No immobilization needed -Consults: none -Antibiotics: Abx 24hrs post-op -Dressings: Keep bandage clean dry and intact for 7-10 days post operatively, then ok to leave open to air if incision is without drainage -Diet: no restrictions from ortho standpoint -Continue PT/OT -Pain control -Ice and elevate -DVT prophylaxis: per medicine -DC planning: home when clears PT -Ortho following, 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 Judy Anderson 04/02/2025 [facility] 04-02-2025 Note Problem: Potential f or Falls Goal: I will remain free of falls Outcome: Progressing Problem: Safety Goal: I will remain free of falls Outcome: Progressing Problem: Daily Care Goal: Daily care needs are met Outcome: Progressing [facility] 06-12-2025 Plan of care note Problem: Potential for Falls Goal: I will remain free of falls Outcome: Progressing Problem: Safety Goal: I will remain free of falls Outcome: Progressing Problem: Daily Care Goal: Daily care needs are met Outcome: Progressing T [facility] 04-01-2025 Note Formatting of this n ote might be different from the original. Care Management Progress Note Pts chart reviewed by BIANCA Pt admitted from [facility] resident s/p fall w acute femur fx. Orthopedic consult completed with radiology readings interpreted To OR for ORIF by Dr. Deleon 03/31/25. WBAT though 2/2 severe dementia unable to follow commands. Call by cm placed to Kayleigh Scott/daughter to discuss PLOF and dc plans. CM tasked SURFACE LAY OUT TECHNICIAN to place referral to [facility] for anticipated return. Call back number left for Daughter Kayleigh to return call. CM will contact again in the AM. DCP: Return to [facility] when stable. Length of Stay (Days): 2 GMLOS: No GMLOS Documented [facility] 04-01-2025 Note Formatting of this n ote might be different from the original. Care Management Progress Note Pts chart reviewed by BIANCA Pt admitted from [facility] resident s/p fall w acute femur fx. Orthopedic consult completed with radiology readings interpreted To OR for ORIF by Dr. Deleon 03/31/25. WBAT though 2/2 severe dementia unable to follow commands. Call by cm placed to Kayleigh Scott/daughter to discuss PLOF and dc plans. CM tasked SURFACE LAY OUT TECHNICIAN to place referral to [facility] for anticipated return. Call back number left for Daughter Kayleigh to return call. CM will contact again in the AM. DCP: Return to [facility] when stable. Length of Stay (Days): 2 GMLOS: No GMLOS Documented [facility] 04-01-2025 Note Care Management Prog ress Note Pts chart reviewed by CM Pt admitted from [facility] resident s/p fall w acute femur fx. Orthopedic consult completed with radiology readings interpreted To OR for ORIF by Dr. Deleon 03/31/25. WBAT though 2/2 severe dementia unable to follow commands. Call by cm placed to Kayleigh Scott/daughter to discuss PLOF and dc plans. CM tasked SURFACE LAY OUT TECHNICIAN to place referral to [facility] for anticipated return. Call back number left for Daughter Kayleigh to return call. CM will contact again in the AM. DCP: Return to [facility] when stable. Length of Stay (Days): 2 GMLOS: No GMLOS Documented [facility] 04-01-2025 Note PHYSICAL THERAPY [facility] Initial Evaluation Name/MRN: Tita Keith ([id number]) Evaluation Date: 04/01/2025 Date of : 1935 Admission Date: 03/30/2025 5:49 PM Age: 89 y.o. Room/Bed: B1-155/B1-155 A Discharge Recommendation: [facility] Equipment Needed: No Assessment IMPRESSION: Patient presents with closed nondisplaced intertrochanteric fracture of R femur and is now s/p R ORIF IMN. WBAT to RLE. Pt presents with decreased functional mobility, decreased strength, decreased safety awareness with use of assistive device, new post op limitations and decreased balance. Upon evaluation, pt required Max Ax1 for bed mobility, Max Ax1 for transfers with fww and without device. Pt has medical history as indicated below that contributes to their clinical presentation. Baseline mobility unknown d/t current cognition. Pt would benefit from skilled PT services in order to increase safety and independence in functional mobility and daily tasks. Recommend SNF upon DC. Admitting Diagnosis: R intertrochanteric hip fracture, s/p ORIF IMN Prognosis: poor Performance Deficits /Impairments: Increased Pain, Decreased Functional Mobility, Decreased ADL status, Decreased Strength, Decreased Safety Awareness, Decreased Endurance, Decreased Balance, Decreased ROM, and Decreased Cognition Decision Making: Medium Complexity Subjective Patient pleasant and agreeable to therapy session this date. Per RN patient okay for therapy. Observation: R hip sx dressing clean and intact Vitals: 04/01/25 1130 BP: 128/81 Pulse: 86 Resp: 18 Temp: 36.9 ?C (98.5 ?F) SpO2: 95% Pain: Moore-Rubin Pain Ratin = Hurts even more Pain Location: R hip Past Medical History: Medical History[1] Past Surgical History: Surgical History[2] Admission Diagnosis: Patient Active Problem List Diagnosis Date Noted Closed nondisplaced intertrochanteric fracture of right femur, initial encounter ([facility]) 03/30/2025 Severe malnutrition ([facility]) ([facility]) 12/07/2023 Pneumonia due to infectious organism, unspecified laterality, unspecified part of lung 12/06/2023 Dementia without behavioral disturbance ([facility]) 09/17/2023 COVID-19 09/10/2023 Hyperglycemia 01/19/2023 Hyperosmolar hyperglycemic state (HHS) ([facility]) 01/17/2023 New onset type 2 diabetes mellitus ([facility]) ([facility]) 03/01/2022 Medical Precautions: No active isolations Proper PPE donned/doffed in accordance with facility standards. Fall Risk: Sandoval Fall Risk Score: 100 (High Risk) Precautions/Restrictions: Right LE Weight Bearing: Weight Bearing As Tolerated Family/Caregiver Present: none Overall Cognitive Status: Exceptions - Following commands: follows one step commands with repetition, follows multi-step commands with repetition, and inconsistently follows commands - Attention span: difficulty attending to directions - Memory: decreased recall of biographical information, decreased recall of precautions, decreased recall of recent events, and decreased short term memory - Safety judgement: decreased awareness of need for assistance and decreased awareness of need for safety - Problem solving: assistance required to generate solutions, assistance required to implement solutions, assistance required to identify errors made, and assistance required to correct errors made - Insights: not aware of deficits - Initiation: requires cues for all - Sequencing: requires cues for all Overall Orientation Status: Oriented to Person, Reports he is in [place] but unaware he is in the hospital. Vision: Not Assessed Hearing: normal Social/Functional History Home setup unknown d/t poor orientation and inability to verbalize and PLOF questioning. Prior Level of Function Prior Level of ADL Function: Required Assist Prior Level of Mobility: Required Assist; Device: Unknown Prior Level of Transfers: Required Assist Objective Lower Extremity Assessment AROM: WFL Strength: Pt demonstrates appropriate B LE and quad strength in order to safely participate in OOB mobility. Poor ability to sequencing MMT cues. Sensation: WFL Bed Mobility: Supine to sit: Max Assist Sit to supine: Max Assist Rolling to right: Max Assist Rolling to left: Max Assist Scooting: Max Assist Max Ax1 for all bed mobility required. Total of 4 supine<>sit transitions and rolling L<>R x3 completed d/t pt impulsivity, bowel incontinence and poor sitting balance. Max cues with hand over hand sequencing required for body mechanics, sequencing and overall positioning for self assistance. Limited return d/t poor cognition. Transfers Sit to stand: Max Assist Stand to sit: Max Assist Pt completed STS x4 with max cues and continuous education on proper sequencing, LE positioning, hand placement, device management and overall sequencing of activity. Hand over hand assist required. Pt was able to initiate transfer with given countdown for initial 25% the (more content not included)... [facility] 04-01-2025 Note Hospitalist Progress Note 04/01/2025 Subjective: Admit Date: 03/30/2025 PCP: Marj Plasencia Room#: B1-155/B1-155 A BRIEF HOSPITAL COURSE: 89 y.o. male with PMHx of severe dementia (Aox0-1), type 2 diabetes, hypertension, hyperlipidemia. Patient was sent from snf (where he lives) to ED status post fall. XR showed right proximal femur intertrochanteric fracture. Patient is disoriented and unable to provide any history. Orthopedic surgery completed successful ORIF with right hip cephalomedullary nail on 03/31. Interval History: No overnight issues. Patient seen lying in bed eating small amounts of a muffin. Patient is alert but is not oriented to self or location or daughter. Patient states that he has mild pain in his right hip but feels better than he did yesterday. Patient admits to intermittent shortness of breath. Daughter is at bedside stating that patient appears better than he did yesterday. Case and plan discussed with patient and bedside nurse. All questions answered. Adult diet Regular 24HR INTAKE/OUTPUT: Intake/Output Summary (Last 24 hours) at 04/01/2025 0921 Last data filed at 04/01/2025 0620 Gross per 24 hour Intake 510 ml Output 1000 ml Net -490 ml Past Medical History: Medical History[1] LABS: CBC: Recent Labs 03/31/2531303/31/25 1031 04/01/25 0821 WBC 6.8 6.8 6.4 RBC 3.76* 3.94* 3.62* HGB 11.4* 11.8* 10.9* HCT 33.7* 35.2* 33.6* MCV 89.6 89.3 92.8 RDW 12.7 12.6 12.3 PLT 120* 119* 144 BMP: Recent Labs 03/31/2531303/31/25 1031 04/01/25 0821 NA 139 137 141 K 4.4 4.2 5.0 CL 103 102 103 CO2 26 27 27 BUN 35* 30* 30* CREATININE 1.33* 1.22 1.35* GLUCOSE 295* 299* 308* CALCIUM 9.0 9.1 9.3 ANIONGAP 10 8 11 LIVER PROFILE:No results for input(s): "AST", "ALT", "BILITOT", "ALKPHOS", "PROT" in the last 72 hours. No lab exists for component: LABALBU PT/INR: Recent Labs 03/31/25313 PROTIME 10.9 INR 1.0 CARDIAC ENZYMES: No results for input(s): "TROPONINI" in the last 72 hours. Procalcitonin: No results found for: "PROCAL" COVID-19 PCR: No results for input(s): "COVID19" in the last 72 hours. Objective: Vitals: BP 148/86 Pulse 82 Temp 36.4 ?C (97.6 ?F) (Temporal) Resp 17 Ht 6' 2" (1.88 m) Wt 130 lb (59 kg) SpO2 92% BMI 16.69 kg/m? Pulse Ox: SpO2 Av.1 % Min: 91 % Max: 100 % Supplemental O2: O2 Flow Rate (L/min): 2 L/min Physical Exam Patient lying in bed with daughter feeding him a muffin chronically ill-appearing white male Intermittently alert, not oriented to self or location or daughter Lungs are mostly clear, small crackles in right lung Abdomen soft but feels possibly full stool Silverio catheter in place Right hip postoperative changes Medications: Scheduled PRN Scheduled Meds[2] PRN Meds[3] Continuous Continuous Meds[4] Assessment Acute, acute on chronic, unstable/uncontrolled chronic problems/diagnoses: Right proximal femur intertrochanteric fracture Unwitnessed fall, unclear etiology S/P ORIF on 03/31 Will restart DVT ppx with ASA 81 BID x 30 days Pain control PT/OT cannot rec SNF given inability to follow commands Acute hypoxic respiratory failure Patient has been intermittently placed on 1 to 2 L of oxygen --appears for comfort Will remove oxygen, if patient continues to be hypoxic will order chest x-ray Dysphagia Daughter states patient is on a dysphagia diet at the facility Will have speech see patient Accidental fall As above Stable chronic problems affecting care, new non-acute diagnoses: Severe dementia Continue home lorazepam 0.25 mg 4 times daily as needed, mirtazapine 50 mg daily, quetiapine 12.5 mg twice daily Type 2 diabetes Continue home glargine 4 units nightly Will add sliding scale insulin given steroid use Hypertension-continue home lisinopril Hyperlipidemia BPH-continue Flomax 0.8 mg nightly Plan As a result of the above findings & factors, the following mgmt was pursued: - as above - am labs, replace lytes prn - PT/OT/CM/SW - delirium precautions: increase activity - DVT prophylaxis: SCDs and encourage ambulation Advance Directive: DNR-CCA Anticipated Discharge - Date - 2 days - Location - Pending dispo choice - Pending the following -after OR and postop course Total time spent (which include face to face and non face to face encounters) : 35 minutes Extended Emergency Contact Information Primary Emergency Contact: JackelinemaddisonKayleigh Mobile Relation: Child Secondary Emergency Contact: Mike Keith Mobile Relation: Child Antonio Cardona DO Division of Hospitalist Medicine Acute care [facility] [1] Past Medical History: Diagnosis Date Awareness under anesthesia lateral Benign prostatic hyperplasia Cataract Dementia (HCC) Diabetes mellitus (HCC) Dysphagia Hyperlipidemia Hypertension Major depressive disorder [2] cholec (more content not included)... [facility] 04-01-2025 Note Problem: Potential f or Compromised Skin Integrity Goal: Skin Integrity is Maintained or Improved Outcome: Progressing Problem: Urinary Incontinence Goal: Perineal skin integrity is maintained or improved Outcome: Progressing [facility] 04-01-2025 Plan of care note Problem: Potential for Compromised Skin Integrity Goal: Skin Integrity is Maintained or Improved Outcome: Progressing Problem: Urinary Incontinence Goal: Perineal skin integrity is maintained or improved Outcome: Progressing [facility] 03-31-2025 Note Problem: Potential f or Falls Goal: I will remain free of falls Outcome: Progressing Problem: Pain Goal: My pain/discomfort is manageable Outcome: Progressing [facility] 03-31-2025 Plan of care note Problem: Potential for Falls Goal: I will remain free of falls Outcome: Progressing Problem: Pain Goal: My pain/discomfort is manageable Outcome: Progressing [facility] 03-31-2025 Hospital Discharg e instructions Antonio Cardona DO - 03/31/2025 7:05 PM EDT Images from the original note were not included. General Orthopedic Discharge Instructions The following instructions have been prepared to help you when you leave the hospital. These guidelines are for the post surgery period. -Activity & Weightbearing: -Weight bearing as tolerated to your right leg. Meaning it is ok to put full weight on your leg for walking and other needs. -Weight bearing as tolerated to your left leg. Meaning it is ok to put full weight on your leg for walking and other needs. -Ok for full range of motion in your injured leg as you can tolerate it. We encourage frequent stretching and moving the hip, knee, and ankle to prevent stiffness. -Ease into normal activity as tolerated. Avoid heavy lifting/pulling/otherwise strenuous activity. -Wound Care and Hygiene: Keep bandaging clean and dry. Ok to change dressings as needed for saturation. Ok to remove bandaging/dressings 5 days after surgery. At this point, if incision is clean and without drainage it is ok to go without any bandaging. If it is draining, reapply new bandaging. -Immobilization Not applicable -Pain Control: -Pain control: Alternate Tylenol (acetaminophen) and Ibuprofen every 4 hours. For example, take Tylenol at 7am and Ibuprofen at 11am. Then take Tylenol at 3pm and Ibuprofen at 7pm. Take narcotic medicine (oxycodone, hydrocodone, vicodin, norco, percocet, tramadol, etc.) for breakthrough pain only. Make sure to double check that narcotic pain medicine does not also contain acetaminophen as exceeding greater than 3000mg a day is unsafe. -Elevate your injured extremity (meaning above the level of your heart) to reduce swelling. Use ice as needed to help reduce pain and swelling. Do not put ice directly on the skin. Do not leave ice on for more than 30 minutes at a time. -Medications: -See medication instructions. Please be sure to read and understand the information provided by your pharmacy. Ask your Pharmacist if you have any questions. -Precautions: call your doctor or return to the emergency department IF: -You experience SEVERE worsening of pain in short period of time and/or significant numbness/weakness in extremities or new loss of bowel or bladder function -You develop signs of infection including but not limited to: increasing pain, redness, swelling, purulent drainage, and/or a fever -Anesthesia Precautions: -Do Not operate any vehicle (automobile, bicycle, motorcycle) or power tools for 24 hours. Do Not drink alcoholic beverages for 24 hours. As precaution to prevent post-operative nausea and vomiting, start your diet with liquids, then progress to light foods. If tolerated, resume normal diet. -Follow up visit: -Follow-up in clinic with Dr. Deleon for a visit 2 weeks after the date of your surgery. The office contact information is provided in your paperwork. Diet recommendation: meals for single small drinks, cued re-swallows when eating. +aspiration of accumulation of residuals. Rec Minced and moist with thin liquids. SINGLE BITES, SINGLE DRINKS Lianet Claire RN - 04/02/2025 9:23 AM EDT Images from the original note were not included. Continuity of Care Form Patient Name: Tita Keith : 1935 Admit date: 03/30/2025 Discharge date: 04/02/2025 Code Status Order: DNR-CCA Advance Directives: Y Admitting Physician: Shay Velazco MD PCP: Marj Plasencia Discharging Nurse: Lianet Claire Discharging Hospital Unit/Room#: B1-155/B1-155 A Discharging Unit Phone Number: [phone] Emergency Contact: Extended Emergency Contact Information Primary Emergency Contact: Kayleigh Scott Mobile Relation: Child Secondary Emergency Contact: Mike Keith Mobile Relation: Child Past Surgical History: Past Surgical History: Procedure Laterality Date BACK SURGERY ORIF FEMUR FRACTURE Right 03/31/2025 with intramedullary implant insertion Immunization History: There is no immunization history for the selected administration types on file for this patient. Active Problems: Medical Problems Problem List * (Principal) Closed nondisplaced intertrochanteric fracture of right femur, initial encounter (HCC) New onset type 2 diabetes mellitus (CMS/HCC) (HCC) Hyperosmolar hyperglycemic state (HHS) (HCC) Hyperglycemia Severe malnutrition (CMS/HCC) (HCC) (Chronic) COVID-19 Dementia without behavioral disturbance ([facility]) Pneumonia due to infectious organism, unspecified laterality, unspecified part of lung Isolation/Infection: No active isolations No active infections Nurse Assessment: Last Vital Signs: BP (!) 165/107 (BP Location: Left arm, Patient Position: Lying) Pulse 71 Temp 36.3 C (97.3 F) (Temporal) Resp 16 Ht 6' 2" (1.88 m) Wt 130 lb (59 kg) SpO2 95% BMI 16.69 kg/m Last documented pain score (0-10 scale): Last Weight: Wt Readings from Last 1 Encounters: 03/30/25 130 lb (59 kg) Mental Status: RON Patient Mental Status: disoriented IV Access: RON IV Access: None Nursing Mobility/ADLs: Walking Total assistance Transfer Total assistance Bathing Total assistance Dressing Total assistance Toileting Total assistance Feeding Minimal assistance Garden Implement Mechanic Minimal assistance Med Delivery yes Wound Care Documentation and Therapy: Wound/Incision 09/11/23 Skin Tear Face Upper (Active) Number of days: 568 Wound/Incision 03/31/25 Incision Leg Anterior;Proximal;Right;Upper (Active) Site Assessment Unable to assess 04/01/252013 Maria Esther-Wound Assessment Unable to assess 04/01/252013 Odor None 04/01/252013 Drainage Amount None 04/01/252013 Treatments Ice applied 04/01/252013 Primary Dressing Sterile dressing;Transparent film 04/01/252013 Dressing Status Clean, dry & intact 04/01/252013 Number of days: 1 Elimination: Continence: Bowel: no Bladder: no Urinary Catheter: None Colostomy/Ileostomy/Ileal Conduit: None Date of Last BM: 04/02/2025 No intake or output data in the 24 hours ending 04/02/25922 I/O last 3 completed shifts: In: - (0 mL/kg) Out: 550 (9.3 mL/kg) [Urine:550 (0.3 mL/kg/hr)] Weight: 59 kg Safety Concerns: history of falls (last 30 days) and at risk for falls Impairments/Disabilities: none Nutrition Therapy: Current Nutrition Therapy: Oral diet: Minced and moist with thin liquids; small drinks and cued re-swallow when eating Routes of Feeding: oral Liquids: thin liquids Daily Fluid Restriction: no Last Modified Barium Swallow with Video (Video Swallowing Test): done on 04/02/2025 Treatments at the Time of Hospital Discharge: Respiratory Treatments: Oxygen Therapy: is not on home oxygen therapy. Ventilator: No ventilator support Rehab Therapies: physical therapy, occupational therapy, speech therapy, recreation therapy, nursing, and aide Weight Bearing Status/Restrictions: weight bearing as tolerated Other Medical Equipment (for information only, NOT a DME order): bedside commode, wheeled walker, and wheelchair Other Treatments: Patient's personal belongings (please select all that are sent with patient): none RN SIGNATURE: MANAGEMENT/SOCIAL WORK SECTION Inpatient Status Date: Discharging to Facility/ Agency Name: [facility] Address: [address] [place], [place] [id number] Fax: [employer] Developer signature: ICIAN SECTION Name: Tita Keith Prognosis: poor Condition at Discharge: stable Rehab Potential (if transferring to Rehab): poor Recommended Labs or Other Treatments After Discharge: The individual is being admitted to a nursing facility directly from an [facility] or a unit of a hospital that is not operated by or licensed by [facility] under section 5119.14 or 5160-3-15.1 5 The individual requires the level of services provided by a nursing facility for the condition for which he or she was treated in the hospital and, Physician Certification: I certify the above information and transfer of Tita Keith is necessary for the continuing treatment of the diagnosis listed and that he requires retirement facility for less than 30 days. Update Admission H&P: No change in H&P PHYSICIAN SIGNATURE: documented in this encounter [facility] 03-31-2025 Note Patient: Tita coates Procedure Summary Date: 03/31/25 Room / Location: [address] Operating Room Anesthesia Start: 1445 Anesthesia Stop: 165 Procedure: RIGHT ORIF, FRACTURE, FEMUR, INTERTROCHANTERIC, WITH INTRAMEDULLARY IMPLANT INSERTION (Right: Hip) Diagnosis: Closed nondisplaced intertrochanteric fracture of right femur, initial encounter ([facility]) Surgeons: Trae Deleon MD Responsible Provider: Jayden Ngo MD Anesthesia Type: general, regional ASA Status: 3 Anesthesia Type: general, regional Vitals Value Taken Time BP 98/68 03/31/25 17:06 Temp 37 03/31/25 17:06 Pulse 87 03/31/25 17:06 Resp 14 03/31/25 17:06 SpO2 98 03/31/25 17:06 Anesthesia Post Evaluation Patient participation: complete - patient participated Level of consciousness: alert and awake Pain management: satisfactory to patient Multimodal analgesia pain management approach Airway patency: patent Two or more strategies used to mitigate risk of obstructive sleep apnea Respiratory status: acceptable Cardiovascular status: acceptable Hydration status: acceptable No notable events documented. MIPS #430 PONV Patient received an inhalational anesthetic (4554F) Patient exhibits three or more risk factors for PONV (4556F) Patient received at leaset 2 prophylactic Rx PONV anti-emtic agents of different classes preop and/or intraop (G9775) MIPS # 424 Perioperative Temperature Management Anesthesia time was 60 minutes or longer (4255F) Anesthesai administered was General (inhalational or TIVA) or Neuraxial block (X0424) At least one body temperature greater than 95.8F/35.5C achieved within the 30 mins immediately prior to or the 15 minutes immediately following anesthesia end time (G9771) MIPS #477 Multimodal Pain Management Not emergent case Patient was administered multimodal pain management (two or more drugs and/or interventions excluding systemic opioids) in the periopeartive period occurring at some time between 6 hours prior to anesthesia start time until discharged from PACU (G2148) MIPS #404 Anesthesiology Smoking Abstinence The patient is not a current smoker (e.g. cigarette, cigar, pipe, e-cigarette/vaping/marijuana) If no stop here (XX404) I completed my handoff to the receiving clinician during which we: 1. Identified the patient 2. Identified the responsible provider 3. Reviewed the pertinent medical history 4. Discussed the surgical course 5. Reviewed intra-op anesthesia management and issues during anesthesia 6. Set expectations for post-procedure period 7. Allowed opportunity for questions and acknowledgement of understanding. [facility] 03-31-2025 Note Patient: Tita coates Procedure Summary Date: 03/31/25 Room / Location: [address] Operating Room Anesthesia Start: 1445 Anesthesia Stop: 1651 Procedure: RIGHT ORIF, FRACTURE, FEMUR, INTERTROCHANTERIC, WITH INTRAMEDULLARY IMPLANT INSERTION (Right: Hip) Diagnosis: Closed nondisplaced intertrochanteric fracture of right femur, initial encounter ([facility]) Surgeons: Trae Deleon MD Responsible Provider: Jayden Ngo MD Anesthesia Type: general, regional ASA Status: 3 Anesthesia Type: general, regional Vitals Value Taken Time BP 99/68 03/31/25 17:05 Temp 37 03/31/25 17:05 Pulse 78 03/31/25 17:05 Resp 14 03/31/25 17:05 SpO2 98 03/31/25 17:05 Anesthesia Post Evaluation Patient location during evaluation: PACU Patient participation: complete - patient participated Level of consciousness: awake and alert Pain management: satisfactory to patient Airway patency: patent Dental Injury: no Cardiovascular status: acceptable, blood pressure returned to baseline and hemodynamically stable Respiratory status: acceptable and spontaneous ventilation Hydration status: euvolemic Nausea/Vomiting: controlled No notable events documented. Patient can be discharged once all PACU criteria has been met. [facility] 03-31-2025 Note Airway Date/Time: 03/31/2025 2:47 PM Reason: emergent General Information and Staff Patient location during procedure: Procedural Resident/SUGAR MILL WORKER: Jj Barakat APRN - SUGAR MILL WORKER Performed: SRNA Patient Condition Indications for airway management: anesthesia Patient position: sniffing Sedation level: Asleep Final Airway Details Preoxygenated: yes Final airway type: supraglottic airway Successful airway: Igel Size: 4 ETT size (mm): 7.5 Number of attempts at approach: 1 [facility] 03-31-2025 Procedure note Images from the original note were not included. Operative Report Patient Name: Tita Keith Date of : 1935 Date of Surgery: 03/31/25 Pre-operative diagnosis: Right peritrochanteric femur fracture Post-operative diagnosis: Same Procedure(s): Intertan nailing of right hip (CPT 02618) Surgeon: Trae Deleon M.D. Pro Shop Attendant(s): Verna PGY-I Anesthesia: Nerve Block and General EBL: 100 mL IVF: 500 mL crystalloid Medications: Two grams of Cefazolin were given. TXA 1g beginning and end of procedure Implants: Intertan 10mm x 44cm nail, 125 degree Clinical History/Indication for Surgery The patient is a 89 y.o. year old male who was presents for operative fixation of a right peritrochanteric femur fracture. Typical indications for surgery were reviewed and long Intertan nailing was recommended. Risks of surgery in general were reviewed including, but not limited to, infection, nonunion, need for additional procedures, failure of fixation which would require revision, damage to normal structures as well as medical complications such as WA, stroke, PE, DVT, and even . Patient and any family present were given opportunity to ask questions and consider his options ultimately electing to proceed with surgery. No guarantees were given or implied. Operative Narration The patient was identified in the pre-operative holding area. The surgical site was identified and marked. Informed consent was obtained. The patient was then brought to the operating room and placed supine on the operating table. Anesthesia was administered and care of the head, neck, and airway was maintained by the anesthesia staff throughout the entire procedure. Patient was placed onto the fracture table. A well padded perineal post was placed. Both feet were well padded and placed in traction. Preop fluoroscopy confirmed a successful closed reduction. All bony prominences were identified and padded. The operative leg was prepped and draped in the usual sterile fashion. A surgical timeout was performed. Antibiotics were confirmed to have been given. The 3.2mm guide pin was placed percutaneously into the greater trochanter under AP and lateral fluoroscopic guidance. Once correctly positioned the skin incision was made to allow passage of the entry reamer over the pin. The long ball-tipped guidewire was passed across fracture and centered in the distal femur. 11.5 mm reamer was passed. The length of the nail was measured. The correct length and diameter nail was impacted using the depth tower to diving judge the depth of placement. The proximal femur was prepared for the lag and worm screws with excellent compression achieved. Based on the patient's fracture pattern, the preloaded setscrew did not require locking. The distal screw was placed using perfect washoe technique. Final films were obtained and saved. All incisions were irrigated and closed in a layered fashion. Sterile dressings were applied. Once the patient was awakened from anesthesia, they were transported to the PACU in stable condition, having tolerated surgery well with no immediate complications. Postoperative Plan WBAT Abx x 24hrs DVT prophylaxis Follow up 4wks This operative report was prepared and signed by Trae Deleon MD at 03/31/25, 8:18 PM [facility] [place] Work Phone: 03-31-2025 Note Peripheral Block Time Out: 03/31/2025 1:58 PM Patient location during procedure: pre-op Start time: 03/31/2025 1:58 PM End time: 03/31/2025 2:03 PM Reason for block: at surgeon's request and post-op pain management Staffing Performed: SUGAR MILL WORKER Resident/SUGAR MILL WORKER: Martin Leonard APRN - SUGAR MILL WORKER Preanesthetic Checklist Completed: patient identified, IV checked, site marked, risks and benefits discussed, surgical consent and timeout performed Region: Lower Extremities Primary: [place] : LFCN. Peripheral Block Patient position: supine Prep: ChloraPrep Patient monitoring: heart rate and continuous pulse ox O2: Room air Laterality: right Injection technique: single-shot Guidance: ultrasound guided -image retained in chart, tip of the needle identified by ultraound during injection. Needle Needle: 22G X 80 mm Additional Notes 03/31/2025 1:58 PM Assessment Injection assessment: negative aspiration for heme, no paresthesia on injection, incremental injection, local visualized surrounding nerve on ultrasound and transient paresthesias Heart rate change: no Slow fractionated injection: yes Required Documentation: Relevant anatomy identified (Nerves, Vessels, Muscles), Negative for blood on aspiration, Local anesthetic injected incrementally with intermittent aspiration every 5 mL, Normal resistance with injection, Local anesthetic spread visualized around nerves or plane., No EKG changes noted, No symptoms of toxicity and No paresthesias reported by patient during injectionMedications stxUFAIKhljds-beagkknfnwg-qukxmtj rine (TAP) syringe - Injection 30 mL - 03/31/2025 1:58:00 PM [facility] 03-31-2025 Nurse Note Pt bgl 277. Dr ngo notified and insulin order placed at this time T [facility] 03-31-2025 Note Patient: Tita coates Procedure Information Date/Time: 03/31/25 1230 Procedure: RIGHT ORIF, FRACTURE, FEMUR, INTERTROCHANTERIC, WITH INTRAMEDULLARY IMPLANT INSERTION (Right: Hip) Location: [place] [facility] [address] [place] [address] Operating Room Surgeons: Trae Deleon MD Relevant Problems Endo (+) New onset type 2 diabetes mellitus (CMS/HCC) (HCC) Pulmonary (+) Pneumonia due to infectious organism, unspecified laterality, unspecified part of lung Past Medical History: Past Medical History: No date: Awareness under anesthesia Comment: lateral No date: Benign prostatic hyperplasia No date: Cataract No date: Dementia (HCC) No date: Diabetes mellitus (HCC) No date: Dysphagia No date: Hyperlipidemia No date: Hypertension No date: Major depressive disorder Past Surgical History: Past Surgical History: No date: BACK SURGERY Social History: TOBACCO: reports that he has quit smoking. His smoking use included cigarettes. He has never used smokeless tobacco. ETOH: reports that he does not currently use alcohol. Social History Substance and Sexual Activity Drug Use Never Family History: Family History[1] Screening: unknown Clinical information reviewed: Tobacco Allergies Meds Med Hx Surg Hx Fam Hx Soc Hx Physical Exam Airway Mallampati: II Mouth Open: normal Cardiovascular Dental (+) Poor, Missing Pulmonary Abdominal Anesthesia Plan patient is NPO appropriate Any family history or previous problems with anesthesia no ASA 3 general and regional Any family history or previous problems with anesthesia no(Block as needed for post op pain) The patient is not a current smoker. Anesthetic plan and risks discussed with legal guardian. Anesthesia Mcmahon Considerations Children in room answering questions pt minimally responsive YAYO Screening Labs: Lab Results Component Value Date WBC 6.8 03/31/2025 HGB 11.8 (L) 03/31/2025 HCT 35.2 (L) 03/31/2025 MCV 89.3 03/31/2025 PLT 119 (L) 03/31/2025 Lab Results Component Value Date NA 137 03/31/2025 K 4.2 03/31/2025 CL 102 03/31/2025 CO2 27 03/31/2025 BUN 30 (H) 03/31/2025 CREATININE 1.22 03/31/2025 GLUCOSE 299 (H) 03/31/2025 CALCIUM 9.1 03/31/2025 PROT 6.9 12/11/2023 ALKPHOS 104 12/11/2023 AST 27 12/11/2023 ALT 24 12/11/2023 EGFR 56.7 (L) 03/31/2025 Pain Score: 10 - Worst possible pain No echocardiogram results found for the past 14 days 03/30/25 ECG 12-LEAD 03/31/2025 8:56 AM (Final) Impression Sinus rhythm Nonspecific T abnormalities, anterior leads Electronically Signed On 03-31-2025 08:56:56 EDT by Pawan Chin Signed by: Pawan Chin MD on 03/31/2025 8:56 AM Equipment Requests: Additional Equipment Requests [1] Family History Problem Relation Name Age of Onset Heart attack Mother Heart failure Father [facility] 03-31-2025 Consult note Associated Order (s): IP CONSULT TO ORTHOPAEDIC SURGERY Please see previously dictated consult note Cosigned by Trae Deleon MD at 03/31/2025 1:38 PM EDT [facility] [place] Work Phone: 03-31-2025 Consult note Associated Order (s): IP CONSULT TO ORTHOPAEDIC SURGERY Please see previously dictated consult note Cosigned by Trae Deleon MD at 03/31/2025 1:38 PM EDT Associated Order(s): IP CONSULT TO ORTHOPAEDIC SURGERY Ortho Consult Patient: Tita Keith Date of : 1935 Acct: [id number] PCP: Marj Plasencia Date of Admission: 03/30/2025 Date of Service: Pt seen/examined on 03/30/2025 Chief Complaint: Right hip pain History Of Present Illness: 89 y.o. male who presents with right hip pain after a fall from standing. The patient was unable to get up and had to call for help. Patient has a medical history of dementia and lives in a memory care facility. History was obtained from his daughter Kayleigh Mendez. Patient had unwitnessed fall at facility. Daughter does report that patient has become more more weak over the past several months and years and now needs to ambulate with a walker. She is not surprised that he had a fall because he is often unsteady on his feet. PMH of dementia. Lives in memory care facility. Orthopaedic surgery history none Patient ambulation status: ambulates with: walker. Antiplatelets/Anticoagulation includes: none. Hx from chart and/or Pt. Past Medical History: Medical History[1] Past Surgical History: Surgical History[2] Home Medications: Prior to Admission medications Medication Sig Start Date End Date Taking? Authorizing Provider cholecalciferol (Vitamin D-3) 50 MCG (1999) capsule Take 2,000 Units by mouth. Historical Provider, docusate sodium (Colace) 100 MG capsule Take 100 mg by mouth 2 times daily. Historical ProviderMD erythromycin (Romycin) 5 MG/GM ophthalmic ointment Apply 1 Application to left eye Nightly. Apply Amount per Dose: 0.5 inch (~1 cm) per dose. Historical ProviderMD insulin glargine (Lantus) 100 UNIT/ML injection Inject 4 Units under the skin Nightly. 12/12/23 12/11/24 Ruiz Braun MD lisinopril 20 MG tablet Take 20 mg by mouth daily. Historical ProviderMD LORazepam (Ativan) 0.5 MG tablet Take 0.25 mg by mouth 4 times daily as needed for anxiety. Historical ProviderMD Melatonin 3 MG capsule Take 6 mg by mouth Nightly. Historical ProviderMD mirtazapine (Remeron) 15 MG tablet Take 15 mg by mouth Nightly. Historical ProviderMD morphine 10 MG/5ML solution Take 20 mg by mouth every 2 hours as needed for severe pain (7-10). Historical ProviderMD QUEtiapine (SEROquel) 25 MG tablet Take 0.5 tablets (12.5 mg) by mouth 2 times daily. 01/19/23 02/18/23 Kayleigh Stout DO tamsulosin (Flomax) 0.4 MG 24 hr capsule Take 0.8 mg by mouth Nightly. Historical ProviderMD Current Hospital Medications: Current Medications[3] Allergies: Patient has no known allergies. Social History: Social History Socioeconomic History Marital status: Spouse name: Not on file Number of children: Not on file Years of education: Not on file Highest education level: Not on file Occupational History Not on file Tobacco Use Smoking status: Never Smokeless tobacco: Never Substance and Sexual Activity Alcohol use: Not Currently Drug use: Never Sexual activity: Not on file Other Topics Concern Not on file Social History Narrative Not on file Social Drivers of Health Financial Resource Strain: Not on file Food Insecurity: Not on file Transportation Needs: No Transportation Needs (12/07/2023) PRAPARE - Transportation Lack of Transportation (Medical): No Lack of Transportation (Non-Medical): No Physical Activity: Not on file Stress: Not on file Social Connections: Not on file Intimate Partner Violence: Patient Declined (09/11/2023) Humiliation, Afraid, Rape, and Kick questionnaire Fear of Current or Ex-Partner: Patient declined Emotionally Abused: Patient declined Physically Abused: Patient declined Sexually Abused: Patient declined Housing Stability: Unknown (12/07/2023) Housing Stability Vital Sign Unable to Pay for Housing in the Last Year: No Number of Places Lived in the Last Year: Not on file Unstable Housing in the Last Year: Not on file Family History: Family History[4] Further Family History is noncontributory to this injury. REVIEW OF SYSTEMS: Unable to be obtained PHYSICAL EXAM: BP (!) 171/90 (BP Location: Left arm) Pulse 83 Temp 37.3 C (99.1 F) Resp 18 Ht 1.88 m (6' 2") Wt 59 kg (130 lb) SpO2 96% BMI 16.69 kg/m GENERAL APPEARANCE: Awake and oriented x0. No acute distress, except appropriate to injury. MOOD AND AFFECT: Calm appropriate to situation GAIT AND STATION: unable to assess COORDINATION and BALANCE: unable to assess Lymphadenopathy: none on examination of the affected extremity(s) Right Upper Extremity: -No obvious pain or deformity to inspection with normal joint range of motion, stability, and muscle strength except noted below -No TTP over clavicle, shoulder, humerus, elbow, forearm, wrist, hand, or fingers -TTP: nontender throughout extremity -Radial pulse palpable -No Lymphedema -Skin intact except where noted below -Painless pROM at shoulder/elbow/wrist Left Upper Extremity: -No obvious pain or deformity to inspection with normal joint range of motion, stability, and muscle strength except noted below -No TTP over clavicle, shoulder, humerus, elbow, forearm, wrist, hand, or fingers -TTP: nontender throughout extremity -Radial pulse palpable -No Lymphedema -Skin intact except where noted below -Painless pROM at shoulder/elbow/wrist Right Lower Extremity: -No obvious pain or deformity to inspection with normal joint range of motion, stability, and muscle strength except noted below. Extremity shortened and externally rotated. Skin over lateral hip is clean and dry without signs of wounds or breakdown. -No TTP over knee, tibia, lateral mal, medial mal, calc, midfoot, forefoot -TTP: hip -Pulse: DP Palpable -No Lymphedema -Skin intact except where noted below -Painless pROM at knee/ankle - + logroll Left lower Extremity: -No obvious pain or deformity to inspection with normal joint range of motion, stability, and muscle strength except noted below -No TTP over pelvis, hip, thigh, knee, tibia, lateral mal, medial mal, calc, midfoot, forefoot -TTP: Nontender throughout extremity -Pulse: DP Palpable -No Lymphedema -Skin intact except where noted below -Painless pROM at hip/knee/ankle Labs: CBC: No results found for: "WBC", "RBC", "HEMOGLOBIN" BMP:No results found for: "GLUCOSE", "SODIUM", "POTASSIUM", "CHLORIDE", "CO2", "BUN", "CREATININE", "CALCIUM" PT/INR: No results found for: "PT", "INR", "APTT" Type and Screen: No results found for: "RH", "LABANTI" CRP: No results found for: "CRP" ESR: No results found for: SEDRATE HgBA1c: No components found for: LABA1C The above labs were reviewed by me. Radiology: The below images were independently reviewed and interpreted XR: Right hip, femur: Right intertrochanteric femur fracture. No other acute fracture or dislocation. Pelvis: Right intertrochanteric femur fracture. No other acute fracture or dislocation. Radiology report reviewed. ASSESSMENT: 89 y.o. male with right intertrochanteric femur fracture PLAN: -Will d/w Dr. 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 Current Outpatient Medications: cholecalciferol (Vitamin D-3) 50 MCG (2000 UT) capsule, Take 2,000 Units by mouth., Disp: , Rfl: docusate sodium (Colace) 100 MG capsule, Take 100 mg by mouth 2 times daily., Disp: , Rfl: erythromycin (Romycin) 5 MG/GM ophthalmic ointment, Apply 1 Application to left eye Nightly. Apply Amount per Dose: 0.5 inch (~1 cm) per dose., Disp: , Rfl: insulin glargine (Lantus) 100 UNIT/ML injection, Inject 4 Units under the skin Nightly., Disp: 10 mL, Rfl: 12 lisinopril 20 MG tablet, Take 20 mg by mouth daily., Disp: , Rfl: LORazepam (Ativan) 0.5 MG tablet, Take 0.25 mg by mouth 4 times daily as needed for anxiety., Disp: , Rfl: Melatonin 3 MG capsule, Take 6 mg by mouth Nightly., Disp: , Rfl: mirtazapine (Remeron) 15 MG tablet, Take 15 mg by mouth Nightly., Disp: , Rfl: morphine 10 MG/5ML solution, Take 20 mg by mouth every 2 hours as needed for severe pain (7-10)., Disp: , Rfl: QUEtiapine (SEROquel) 25 MG tablet, Take 0.5 tablets (12.5 mg) by mouth 2 times daily., Disp: 30 tablet, Rfl: 0 tamsulosin (Flomax) 0.4 MG 24 hr capsule, Take 0.8 mg by mouth Nightly., Disp: , Rfl: [4] No family history on file. Cosigned by Trae Deleon MD at 03/31/2025 1:38 PM EDT Associated attestation - Trae Deleon MD - 03/31/2025 1:38 PM EDT Patient seen and examined independently by me. Above discussed and I agree with resident note except where indicated in the EMR revision history. Also see my additional comments and changes indicated by discrete font, text color, italics, and/or initials. Labs, cultures, and radiographs where available were reviewed. Changes were made in the orders as necessary. I discussed patient concerns with Judith Newell and instructions were given. Please see our orders for the updated patient care plan. Risks of fracture surgery in general were reviewed including, but not limited to, infection, non-union, need for additional procedures, painful or prominent hardware which could require additional surgery, failure of fixation which would require revision, damage to normal structures, as well as medical complications such as WA, stroke, PE, DVT, and even . Patient/family was given opportunity to ask questions and consider his options. They ultimately elected to proceed with surgery. No guarantees were stated or implied. documented in this encounter [facility] 03-31-2025 Note Hospitalist Progress Note 03/31/2025 Subjective: Admit Date: 03/30/2025 PCP: Marj Plasencia Room#: BRIEF HOSPITAL COURSE: 89 y.o. male with PMHx of severe dementia (Aox0-1), type 2 diabetes, hypertension, hyperlipidemia. Patient was sent from snf (where he lives) to ED status post fall. XR showed right proximal femur intertrochanteric fracture. Patient is disoriented and unable to provide any history. Orthopedic surgery saw patient in the ER and plan for ORIF with right hip cephalomedullary nail Interval History: No overnight issues. Patient is alert but is not oriented to self or location or daughter. Patient does not provide history regarding pain. Daughter is at bedside stating that patient appears in intermittent pain but seems to be controlled by medications. Case and plan discussed with patient and bedside nurse. All questions answered. NPO diet with enteral medications 24HR INTAKE/OUTPUT: Intake/Output Summary (Last 24 hours) at 03/31/2025 0854 Last data filed at 03/31/2025 0626 Gross per 24 hour Intake -- Output 50 ml Net -50 ml Past Medical History: Medical History[1] LABS: CBC: Recent Labs 03/31/25313 WBC 6.8 RBC 3.76* HGB 11.4* HCT 33.7* MCV 89.6 RDW 12.7 PLT 120* BMP: Recent Labs 03/31/25313 NA 139 K 4.4 CL 103 CO2 26 BUN 35* CREATININE 1.33* GLUCOSE 295* CALCIUM 9.0 ANIONGAP 10 LIVER PROFILE:No results for input(s): "AST", "ALT", "BILITOT", "ALKPHOS", "PROT" in the last 72 hours. No lab exists for component: LABALBU PT/INR: Recent Labs 03/31/25313 PROTIME 10.9 INR 1.0 CARDIAC ENZYMES: No results for input(s): "TROPONINI" in the last 72 hours. Procalcitonin: No results found for: "PROCAL" COVID-19 PCR: No results for input(s): "COVID19" in the last 72 hours. Objective: Vitals: BP (!) 185/118 (BP Location: Left arm, Patient Position: Lying) Pulse 91 Temp 36.4 ?C (97.5 ?F) (Oral) Resp 18 Ht 6' 2" (1.88 m) Wt 130 lb (59 kg) SpO2 94% BMI 16.69 kg/m? Pulse Ox: SpO2 Av.8 % Min: 93 % Max: 96 % Supplemental O2: Physical Exam Chronically ill-appearing white male Intermittently alert, not oriented to self or location or daughter Abdomen soft but feels possibly full stool Silverio catheter in place Right hip is swollen and warm Medications: Scheduled PRN Scheduled Meds[2] PRN Meds[3] Continuous Continuous Meds[4] Assessment Acute, acute on chronic, unstable/uncontrolled chronic problems/diagnoses: Right proximal femur intertrochanteric fracture Unwitnessed fall, unclear etiology Acute right intertrochanteric femur fracture Ortho to take patient for OR on 03/31 Hold DVT prophylaxis, pain control Accidental fall As above Stable chronic problems affecting care, new non-acute diagnoses: Severe dementia -continue home lorazepam 0.25 mg 4 times daily as needed, mirtazapine 50 mg daily, quetiapine 12.5 mg twice daily Type 2 diabetes-continue glargine 4 units nightly Hypertension-continue home lisinopril Hyperlipidemia BPH-continue Flomax 0.8 mg nightly Plan As a result of the above findings & factors, the following mgmt was pursued: - as above - am labs, replace lytes prn - PT/OT/CM/SW - delirium precautions: increase activity - DVT prophylaxis: SCDs and encourage ambulation Advance Directive: Prior Anticipated Discharge - Date - 2 days - Location - Pending PT/OT - Pending the following -after OR and postop course Total time spent (which include face to face and non face to face encounters) : 35 minutes Extended Emergency Contact Information Primary Emergency Contact: Kayleigh Scott Mobile Relation: Child Secondary Emergency Contact: Mike Keith Mobile Relation: Child Antonio Cardona DO Division of Hospitalist Medicine [facility] [1] Past Medical History: Diagnosis Date Dementia (HCC) Diabetes mellitus (HCC) Hyperlipidemia Hypertension [2] [3] [4] dextrose 5 % and sodium chloride 0.45 %, 75 mL/hr, Last Rate: 75 mL/hr (03/31/25 0141) [facility] 03-31-2025 Emergency department Note Patient was incontinent of stool. Cleaned up and silverio placed as ordered. Patient repositioned to comfort. Confused to situation and date. [facility] 03-31-2025 Emergency department Note Patient was incontinent of stool. Cleaned up and silverio placed as ordered. Patient repositioned to comfort. Confused to situation and date. EMERGENCY DEPARTMENT ENCOUNTER Pt Name: Tita Keith Birthdate 1935 Date of evaluation: 03/30/2025 ED Provider: Jj Lara MD CHIEF COMPLAINT Chief Complaint Patient presents with Fall Pt had a fall last night at [facility]. [facility] performed an X-Ray that shows a right femur fracture. Pt is AxOx0 at baseline. Hip Pain Confirmed right femur fracture. HISTORY OF PRESENT ILLNESS (Location/Symptom, Timing/Onset, Context/Setting, Quality, Duration, Modifying Factors, Severity) Note limiting factors. I wore appropriate PPE for the entirety of this encounter. HPI Tita Keith is a 89 y.o. who presents to the emergency department with chief complaint of right hip fracture. Patient had a reported fall last night and had x-rays done today showing a right proximal femur intertrochanteric fracture and sent to the emergency department for this. Patient has a significant history of dementia alert and oriented x 1. Only other noted injury was some ecchymosis to the right elbow. Nursing Notes were reviewed. Limitations to history: None Outside historians: None REVIEW OF SYSTEMS Review of Systems Pertinent positives and negatives as per HPI. PAST MEDICAL HISTORY Medical History[1] SURGICAL HISTORY Surgical History[2] CURRENT MEDICATIONS Previous Medications CHOLECALCIFEROL (VITAMIN D-3) 50 MCG (2000 UT) CAPSULE Take 2,000 Units by mouth. DOCUSATE SODIUM (COLACE) 100 MG CAPSULE Take 100 mg by mouth 2 times daily. ERYTHROMYCIN (ROMYCIN) 5 MG/GM OPHTHALMIC OINTMENT Apply 1 Application to left eye Nightly. Apply Amount per Dose: 0.5 inch (~1 cm) per dose. INSULIN GLARGINE (LANTUS) 100 UNIT/ML INJECTION Inject 4 Units under the skin Nightly. LISINOPRIL 20 MG TABLET Take 20 mg by mouth daily. LORAZEPAM (ATIVAN) 0.5 MG TABLET Take 0.25 mg by mouth 4 times daily as needed for anxiety. MELATONIN 3 MG CAPSULE Take 6 mg by mouth Nightly. MIRTAZAPINE (REMERON) 15 MG TABLET Take 15 mg by mouth Nightly. MORPHINE 10 MG/5ML SOLUTION Take 20 mg by mouth every 2 hours as needed for severe pain (7-10). QUETIAPINE (SEROQUEL) 25 MG TABLET Take 0.5 tablets (12.5 mg) by mouth 2 times daily. TAMSULOSIN (FLOMAX) 0.4 MG 24 HR CAPSULE Take 0.8 mg by mouth Nightly. ALLERGIES Patient has no known allergies. FAMILY HISTORY Family History[3] SOCIAL HISTORY Social History[4] SCREENINGS PHYSICAL EXAM ED Triage Vitals Temp Heart Rate Resp BP 03/30/25 1802 03/30/25 1758 03/30/25 1758 03/30/251757 37.3 C (99.1 F) 83 18 (!) 171/90 SpO2 Temp src Heart Rate Source Patient Position 03/30/251757 -- -- -- 96 % BP Location FiO2 (%) 03/30/251757 -- Left arm General appearance: Well-appearing, no acute distress. Psych: Awake alert and oriented 1. Pleasant and cooperative. Skin: Warm and dry. Neck: Supple. Nontender Cardiovascular: Regular rate and rhythm Lungs: no accessory muscle use, tachypnea, or retractions. Abdomen: Soft, nontender, and nondistended, no rebound, rigidity, or guarding, positive bowel sounds 4 quadrants. Extremities: Warm and well perfused. NROM and SILT throughout upper and lower extermities. Pain with any range of motion of the right hip. No shortening or external rotation. No pain with range of motion of the remainder of the extremities. There is no right knee pain or ankle pain. There is a small area of ecchymosis just distal to the right elbow but no pain at the medial or lateral epicondyle. No pain at the olecranon and normal range of motion of the elbow. DIAGNOSTIC RESULTS Interpretation per the Radiologist below, if available at the time of this note: XR chest 1 view Final Result Normal examination. Report Dictated on Electronically Signed By: Gerhard Hannah MD Electronically Signed Date/Time: 03/30/2025 7:24 PM EDT XR femur right 2+ views Final Result XR pelvis 1 or 2 views Final Result ED BEDSIDE ULTRASOUND: Performed by ED Physician - none LABS: Labs Reviewed CBC WITH AUTO DIFFERENTIAL PROTHROMBIN TIME APTT BLOOD TYPE AND SCREEN GEL BASIC METABOLIC PANEL All other labs were within normal range or not returned as of this dictation. EMERGENCY DEPARTMENT COURSE and DIFFERENTIAL DIAGNOSIS/MDM: Vitals: Vitals: 03/30/25 1758 03/30/25 1800 03/30/25 1802 BP: (!) 171/90 BP Location: Left arm Pulse: 83 Resp: 18 Temp: 37.3 C (99.1 F) SpO2: 96% 96% Weight: 59 kg (130 lb) Height: 1.88 m (6' 2") The patient presented with a chief complaint of right hip fracture. The differential diagnosis associated with this patient's presentation includes intertrochanteric fracture. Our workup consisted of ordering/reviewing repeat x-rays as well as preoperative labs and x-rays.. External records reviewed: Outpatient labs and studies report from x-rays outpatient showing a right intertrochanteric fracture Diagnostics interpreted by me: Xray(s) right intertrochanteric fracture Discussions with other clinicians: Admitting team hospitalist and Women[employer] Soccer [employer] orthopedic resident Admission Criteria: The patient needs Med/surg level of care and not appropriate for a lower acuity location of care due to hip fracture Chronic conditions impacting care: Dementia ED Medications managed: Medications QUEtiapine (SEROquel) tablet 25 mg (has no administration in time range) CRITICAL CARE TIME CONSULTS: None PROCEDURES: Unless otherwise noted below, none Procedures FINAL IMPRESSION 1. Closed nondisplaced intertrochanteric fracture of right femur, initial encounter ([facility]) DISPOSITION Admit 03/30/2025 08:00:24 PM PATIENT REFERRED TO: No follow-up provider specified. DISCHARGE MEDICATIONS: New Prescriptions No medications on file (Comment: Please note this report has been produced using speech recognition software and may contain errors related to that system including errors in grammar, punctuation, and spelling, as well as words and phrases that may be inappropriate. If there are any questions or concerns please feel free to contact the dictating provider for clarification.) Jj Lara MD (electronically signed) Emergency Medicine Provider [1] Past Medical History: Diagnosis Date Dementia (HCC) Diabetes mellitus (HCC) Hyperlipidemia Hypertension [2] Past Surgical History: Procedure Laterality Date BACK SURGERY [3] No family history on file. [4] Social History Socioeconomic History Marital status: Tobacco Use Smoking status: Never Smokeless tobacco: Never Substance and Sexual Activity Alcohol use: Not Currently Drug use: Never Social Drivers of Health Transportation Needs: No Transportation Needs (12/07/2023) PRAPARE - Transportation Lack of Transportation (Medical): No Lack of Transportation (Non-Medical): No Intimate Partner Violence: Patient Declined (09/11/2023) Humiliation, Afraid, Rape, and Kick questionnaire Fear of Current or Ex-Partner: Patient declined Emotionally Abused: Patient declined Physically Abused: Patient declined Sexually Abused: Patient declined Housing Stability: Unknown (12/07/2023) Housing Stability Vital Sign Unable to Pay for Housing in the Last Year: No Jj Lara MD 03/30/251999 documented in this encounter [facility] 03-30-2025 Consult note Associated Order (s): IP CONSULT TO ORTHOPAEDIC SURGERY Ortho Consult Patient: Tita Keith Date of : 1935 Acct: [id number] PCP: Marj Plasencia Date of Admission: 03/30/2025 Date of Service: Pt seen/examined on 03/30/2025 Chief Complaint: Right hip pain History Of Present Illness: 89 y.o. male who presents with right hip pain after a fall from standing. The patient was unable to get up and had to call for help. Patient has a medical history of dementia and lives in a memory care facility. History was obtained from his daughter Kayleigh Mendez. Patient had unwitnessed fall at facility. Daughter does report that patient has become more more weak over the past several months and years and now needs to ambulate with a walker. She is not surprised that he had a fall because he is often unsteady on his feet. PMH of dementia. Lives in memory care facility. Orthopaedic surgery history none Patient ambulation status: ambulates with: walker. Antiplatelets/Anticoagulation includes: none. Hx from chart and/or Pt. Past Medical History: Medical History[1] Past Surgical History: Surgical History[2] Home Medications: Prior to Admission medications Medication Sig Start Date End Date Taking? Authorizing Provider cholecalciferol (Vitamin D-3) 50 MCG (1999) capsule Take 2,000 Units by mouth. Historical Provider, docusate sodium (Colace) 100 MG capsule Take 100 mg by mouth 2 times daily. Historical Provider, erythromycin (Romycin) 5 MG/GM ophthalmic ointment Apply 1 Application to left eye Nightly. Apply Amount per Dose: 0.5 inch (~1 cm) per dose. Historical Provider, insulin glargine (Lantus) 100 UNIT/ML injection Inject 4 Units under the skin Nightly. 12/12/23 12/11/24 uRiz Braun MD lisinopril 20 MG tablet Take 20 mg by mouth daily. Historical Provider, LORazepam (Ativan) 0.5 MG tablet Take 0.25 mg by mouth 4 times daily as needed for anxiety. Historical Provider, Melatonin 3 MG capsule Take 6 mg by mouth Nightly. Historical Provider, mirtazapine (Remeron) 15 MG tablet Take 15 mg by mouth Nightly. Historical Provider, morphine 10 MG/5ML solution Take 20 mg by mouth every 2 hours as needed for severe pain (7-10). Historical Provider, QUEtiapine (SEROquel) 25 MG tablet Take 0.5 tablets (12.5 mg) by mouth 2 times daily. 01/19/23 02/18/23 Kayleigh Stout DO tamsulosin (Flomax) 0.4 MG 24 hr capsule Take 0.8 mg by mouth Nightly. Historical Provider, Current Hospital Medications: Current Medications[3] Allergies: Patient has no known allergies. Social History: Social History Socioeconomic History Marital status: Spouse name: Not on file Number of children: Not on file Years of education: Not on file Highest education level: Not on file Occupational History Not on file Tobacco Use Smoking status: Never Smokeless tobacco: Never Substance and Sexual Activity Alcohol use: Not Currently Drug use: Never Sexual activity: Not on file Other Topics Concern Not on file Social History Narrative Not on file Social Drivers of Health Financial Resource Strain: Not on file Food Insecurity: Not on file Transportation Needs: No Transportation Needs (12/07/2023) PRAPARE - Transportation Lack of Transportation (Medical): No Lack of Transportation (Non-Medical): No Physical Activity: Not on file Stress: Not on file Social Connections: Not on file Intimate Partner Violence: Patient Declined (09/11/2023) Humiliation, Afraid, Rape, and Kick questionnaire Fear of Current or Ex-Partner: Patient declined Emotionally Abused: Patient declined Physically Abused: Patient declined Sexually Abused: Patient declined Housing Stability: Unknown (12/07/2023) Housing Stability Vital Sign Unable to Pay for Housing in the Last Year: No Number of Places Lived in the Last Year: Not on file Unstable Housing in the Last Year: Not on file Family History: Family History[4] Further Family History is noncontributory to this injury. REVIEW OF SYSTEMS: Unable to be obtained PHYSICAL EXAM: BP (!) 171/90 (BP Location: Left arm) Pulse 83 Temp 37.3 C (99.1 F) Resp 18 Ht 1.88 m (6' 2") Wt 59 kg (130 lb) SpO2 96% BMI 16.69 kg/m GENERAL APPEARANCE: Awake and oriented x0. No acute distress, except appropriate to injury. MOOD AND AFFECT: Calm appropriate to situation GAIT AND STATION: unable to assess COORDINATION and BALANCE: unable to assess Lymphadenopathy: none on examination of the affected extremity(s) Right Upper Extremity: -No obvious pain or deformity to inspection with normal joint range of motion, stability, and muscle strength except noted below -No TTP over clavicle, shoulder, humerus, elbow, forearm, wrist, hand, or fingers -TTP: nontender throughout extremity -Radial pulse palpable -No Lymphedema -Skin intact except where noted below -Painless pROM at shoulder/elbow/wrist Left Upper Extremity: -No obvious pain or deformity to inspection with normal joint range of motion, stability, and muscle strength except noted below -No TTP over clavicle, shoulder, humerus, elbow, forearm, wrist, hand, or fingers -TTP: nontender throughout extremity -Radial pulse palpable -No Lymphedema -Skin intact except where noted below -Painless pROM at shoulder/elbow/wrist Right Lower Extremity: -No obvious pain or deformity to inspection with normal joint range of motion, stability, and muscle strength except noted below. Extremity shortened and externally rotated. Skin over lateral hip is clean and dry without signs of wounds or breakdown. -No TTP over knee, tibia, lateral mal, medial mal, calc, midfoot, forefoot -TTP: hip -Pulse: DP Palpable -No Lymphedema -Skin intact except where noted below -Painless pROM at knee/ankle - + logroll Left lower Extremity: -No obvious pain or deformity to inspection with normal joint range of motion, stability, and muscle strength except noted below -No TTP over pelvis, hip, thigh, knee, tibia, lateral mal, medial mal, calc, midfoot, forefoot -TTP: Nontender throughout extremity -Pulse: DP Palpable -No Lymphedema -Skin intact except where noted below -Painless pROM at hip/knee/ankle Labs: CBC: No results found for: "WBC", "RBC", "HEMOGLOBIN" BMP:No results found for: "GLUCOSE", "SODIUM", "POTASSIUM", "CHLORIDE", "CO2", "BUN", "CREATININE", "CALCIUM" PT/INR: No results found for: "PT", "INR", "APTT" Type and Screen: No results found for: "RH", "LABANTI" CRP: No results found for: "CRP" ESR: No results found for: SEDRATE HgBA1c: No components found for: LABA1C The above labs were reviewed by me. Radiology: The below images were independently reviewed and interpreted XR: Right hip, femur: Right intertrochanteric femur fracture. No other acute fracture or dislocation. Pelvis: Right intertrochanteric femur fracture. No other acute fracture or dislocation. Radiology report reviewed. ASSESSMENT: 89 y.o. male with right intertrochanteric femur fracture PLAN: -Will d/w Dr. 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 Current Outpatient Medications: cholecalciferol (Vitamin D-3) 50 MCG (2000 UT) capsule, Take 2,000 Units by mouth., Disp: , Rfl: docusate sodium (Colace) 100 MG capsule, Take 100 mg by mouth 2 times daily., Disp: , Rfl: erythromycin (Romycin) 5 MG/GM ophthalmic ointment, Apply 1 Application to left eye Nightly. Apply Amount per Dose: 0.5 inch (~1 cm) per dose., Disp: , Rfl: insulin glargine (Lantus) 100 UNIT/ML injection, Inject 4 Units under the skin Nightly., Disp: 10 mL, Rfl: 12 lisinopril 20 MG tablet, Take 20 mg by mouth daily., Disp: , Rfl: LORazepam (Ativan) 0.5 MG tablet, Take 0.25 mg by mouth 4 times daily as needed for anxiety., Disp: , Rfl: Melatonin 3 MG capsule, Take 6 mg by mouth Nightly., Disp: , Rfl: mirtazapine (Remeron) 15 MG tablet, Take 15 mg by mouth Nightly., Disp: , Rfl: morphine 10 MG/5ML solution, Take 20 mg by mouth every 2 hours as needed for severe pain (7-10)., Disp: , Rfl: QUEtiapine (SEROquel) 25 MG tablet, Take 0.5 tablets (12.5 mg) by mouth 2 times daily., Disp: 30 tablet, Rfl: 0 tamsulosin (Flomax) 0.4 MG 24 hr capsule, Take 0.8 mg by mouth Nightly., Disp: , Rfl: [4] No family history on file. Cosigned by Trae Deleon MD at 03/31/2025 1:38 PM EDT Associated attestation - Trae Deleon MD - 03/31/2025 1:38 PM EDT Patient seen and examined independently by me. Above discussed and I agree with resident note except where indicated in the EMR revision history. Also see my additional comments and changes indicated by discrete font, text color, italics, and/or initials. Labs, cultures, and radiographs where available were reviewed. Changes were made in the orders as necessary. I discussed patient concerns with Judith Newell and instructions were given. Please see our orders for the updated patient care plan. Risks of fracture surgery in general were reviewed including, but not limited to, infection, non-union, need for additional procedures, painful or prominent hardware which could require additional surgery, failure of fixation which would require revision, damage to normal structures, as well as medical complications such as WA, stroke, PE, DVT, and even . Patient/family was given opportunity to ask questions and consider his options. They ultimately elected to proceed with surgery. No guarantees were stated or implied. [facility] 03-30-2025 History and physical note Attending History and Physical Admit Date: 03/30/2025 PCP: Marj Plasencia CHIEF COMPLAINT: Fall Reason for Admission: Right hip intertrochanteric fracture History Obtained From: ER provider HISTORY OF PRESENT ILLNESS: Tita is a 89 y.o. male with past medical history significant for severe dementia, type 2 diabetes, hypertension, hyperlipidemia. Patient currently resides at the nursing facility. Patient was sent to the emergency room status post fall that happened last night. Patient had an x-ray done today showing right proximal femur intertrochanteric fracture and was subsequently sent to the emergency room. Patient is disoriented and unable to provide any history. Daughter is currently in the room Case was discussed with her in detail. Past Medical History: Medical History[1] Past Surgical History: Surgical History[2] Social History: Social History Socioeconomic History Marital status: Spouse name: Not on file Number of children: Not on file Years of education: Not on file Highest education level: Not on file Occupational History Not on file Tobacco Use Smoking status: Never Smokeless tobacco: Never Substance and Sexual Activity Alcohol use: Not Currently Drug use: Never Sexual activity: Not on file Other Topics Concern Not on file Social History Narrative Not on file Social Drivers of Health Financial Resource Strain: Not on file Food Insecurity: Not on file Transportation Needs: No Transportation Needs (12/07/2023) PRAPARE - Transportation Lack of Transportation (Medical): No Lack of Transportation (Non-Medical): No Physical Activity: Not on file Stress: Not on file Social Connections: Not on file Intimate Partner Violence: Patient Declined (09/11/2023) Humiliation, Afraid, Rape, and Kick questionnaire Fear of Current or Ex-Partner: Patient declined Emotionally Abused: Patient declined Physically Abused: Patient declined Sexually Abused: Patient declined Housing Stability: Unknown (12/07/2023) Housing Stability Vital Sign Unable to Pay for Housing in the Last Year: No Number of Places Lived in the Last Year: Not on file Unstable Housing in the Last Year: Not on file Family History: Family History[3] Medications Prior to Admission: Current Medications[4] Allergies: Allergies[5] REVIEW OF SYSTEMS: Unable to obtain due to patient mental status Vitals: BP (!) 171/90 (BP Location: Left arm) Pulse 83 Temp 37.3 C (99.1 F) Resp 18 Ht 6' 2" (1.88 m) Wt 130 lb (59 kg) SpO2 96% BMI 16.69 kg/m BMI Classification: Underweight (BMI <18.5) Pulse Ox: SpO2 Av % Min: 96 % Max: 96 % Supplemental O2: PHYSICAL EXAM: Constitutional: General: Patient is not in acute distress. Appearance: Normal appearance. HENT: Head: Normocephalic and atraumatic. Right Ear: External ear normal. Left Ear: External ear normal. Mouth/Throat: Mouth: Mucous membranes are moist. Pharynx: Oropharynx is clear. Eyes: Extraocular Movements: Extraocular movements intact. Conjunctiva/sclera: Conjunctivae normal. Pupils: Pupils are equal, round, and reactive to light. Cardiovascular: Comments: Regular rate and rhythm, normal S1-S2, no murmurs noted. Radial pulses 2+ and symmetric. Pulmonary: Effort: Pulmonary effort is normal. No respiratory distress. Breath sounds: Normal breath sounds. No stridor. No wheezing or rhonchi. Abdominal: Comments: The abdomen is soft, nondistended and nontender. There is no rebound tenderness or guarding. Bowel sounds are normal. Skin: General: Skin is warm and dry. Capillary Refill: Capillary refill takes less than 2 seconds. Coloration: Skin is not jaundiced or pale. Findings: No bruising or erythema. Neurological: General: No focal deficit present. Mental Status: Patient is alert and pleasantly confused Musculoskeletal: NO edema, right hip minimal ecchymosis was noted. Pain with the range of motion of the right hip. No shortening or external rotation was noted DATA: CBC: No results for input(s): "WBC", "RBC", "HGB", "HCT", "MCV", "RDW", "PLT" in the last 72 hours. BMP: No results for input(s): "NA", "K", "CL", "CO2", "BUN", "CREATININE", "GLUCOSE", "CALCIUM", "ANIONGAP" in the last 72 hours. LIVER PROFILE: No results for input(s): "AST", "ALT", "BILITOT", "ALKPHOS", "PROT" in the last 72 hours. No lab exists for component: LABALBU PT/INR: No results for input(s): "PROTIME", "INR" in the last 72 hours. CARDIAC ENZYMES: No results for input(s): "TROPONINI" in the last 72 hours. Procalcitonin: No results found for: "PROCAL" Urine Culture: No results found for this or any previous visit. COVID-19 PCR: No results for input(s): "COVID19" in the last 72 hours. I reviewed: [x] laboratory results [x] radiographic results At the time of today's encounter. Pt was advised of the results. Data: (CAT1) Reviewed 3 or more labs/studies ordered by another provider not previously counted (each=1, panels count as 1). (LOW: 2x CAT1 or independent historian MOD: 3x CAT1 or 1x CAT3 EXTENSIVE: 3x CAT1 and 1x CAT3) Assessment Discussed management with the ED provider and agree with hospitalization. Acute, acute on chronic, unstable/uncontrolled chronic problems/diagnoses: Right proximal femur intertrochanteric fracture Accidental fall Stable chronic problems affecting care, new non-acute diagnoses: Senile dementia Type 2 diabetes Hypertension Hyperlipidemia Plan As a result of the above findings & factors, the following mgmt was pursued: - Admit the patient to the medical floor Will place him on complete bedrest Case discussed with the daughter in detail she would like to discuss with the orthopedic surgery regarding possibility of surgical intervention. I explained to her regarding prognosis. Daughter is very realistic. She would like to touch base with the orthopedic surgery regarding possible palliative surgery. Will also consult palliative care CODE STATUS was discussed with her in detail all the options were explained to her. At this point she prefers to keep him Comfort Care arrest with no intubation. If surgery is deferred then she would like the patient to be discharged back to nursing facility Will resume medications from home Accu-Cheks ACHS with sliding scale coverage needleworker consult - delirium precautions: limit nighttime disturbances - DVT prophylaxis: enoxaparin Complexity: Acute illness with systemic symptoms (MOD). Risk: Admission to hospital-level care was considered or occurred (HIGH). Advance Directive: Prior Anticipated Discharge - Date - 04/01/2025 - Location - [facility] (Non-Skilled) - Pending the following -orthopedic and palliative care evaluation Total time spent (which include face to face and non face to face encounters) : 65 minutes. Toxic drug monitoring/narrow therapeutic index drug monitoring : # Drug name : Brienox # Route administered : Subcutaneous # Method of monitoring : CBC Extended Emergency Contact Information Primary Emergency Contact: Kayleigh Scott Mobile Relation: Child Secondary Emergency Contact: Mike Keith Mobile Relation: Child [employer] Tita Keith : 1935 Primary Care Physician: Marj Plasencia The patient and/or family/surrogate voluntarily agreed to participate in ACP services. Patient s cognitive capacity: Alert, Orientedx3 Code Status: [_] [FULL CODE - Continue all advanced life support: CPR,intubation,invasive procedures] [x_] [DNR-CCA - DO NOT do CPR, intubation] [_] [DNR-ASSOCIATE PROFESSOR OF ART HISTORY - Comfort care only] [_] DNR form [was/was not] signed Summary of discussion: The patient health care POA/ surrogate is the following: Daughter [Condition that instigated the ACP on this DOS, relevant PMH, functional status, goals of care, and whom this was discussed with including names and relationship to the patient, and any relevant advance care documentation discussion] I answered all the patient/family questions that I could within the range and scope of the current medical situation. We discussed the medical conditions, risks, benefits, outcomes, and goals of care at this time for the patient's medical issues at hand in the face of the patient's chronic issues and current presentation. Total time spent: 7 minutes were spent discussing the patient's resuscitation status, advance care planning, and end of life care, with patient and/or family/surrogate. Shay Velazco MD Division of Hospitalist Medicine [facility] [facility] [1] Past Medical History: Diagnosis Date Dementia (HCC) Diabetes mellitus (HCC) Hyperlipidemia Hypertension [2] Past Surgical History: Procedure Laterality Date BACK SURGERY [3] No family history on file. [4] No current facility-administered medications for this encounter. Current Outpatient Medications: cholecalciferol (Vitamin D-3) 50 MCG (1999 UT) capsule, Take 2,000 Units by mouth., Disp: , Rfl: docusate sodium (Colace) 100 MG capsule, Take 100 mg by mouth 2 times daily., Disp: , Rfl: erythromycin (Romycin) 5 MG/GM ophthalmic ointment, Apply 1 Application to left eye Nightly. Apply Amount per Dose: 0.5 inch (~1 cm) per dose., Disp: , Rfl: insulin glargine (Lantus) 100 UNIT/ML injection, Inject 4 Units under the skin Nightly., Disp: 10 mL, Rfl: 12 lisinopril 20 MG tablet, Take 20 mg by mouth daily., Disp: , Rfl: LORazepam (Ativan) 0.5 MG tablet, Take 0.25 mg by mouth 4 times daily as needed for anxiety., Disp: , Rfl: Melatonin 3 MG capsule, Take 6 mg by mouth Nightly., Disp: , Rfl: mirtazapine (Remeron) 15 MG tablet, Take 15 mg by mouth Nightly., Disp: , Rfl: morphine 10 MG/5ML solution, Take 20 mg by mouth every 2 hours as needed for severe pain (7-10)., Disp: , Rfl: QUEtiapine (SEROquel) 25 MG tablet, Take 0.5 tablets (12.5 mg) by mouth 2 times daily., Disp: 30 tablet, Rfl: 0 tamsulosin (Flomax) 0.4 MG 24 hr capsule, Take 0.8 mg by mouth Nightly., Disp: , Rfl: [5] No Known Allergies [employer] Work Phone: 03-30-2025 Note Attending History an d Physical Admit Date: 03/30/2025 PCP: Marj Plasencia CHIEF COMPLAINT: Fall Reason for Admission: Right hip intertrochanteric fracture History Obtained From: ER provider HISTORY OF PRESENT ILLNESS: Tita is a 89 y.o. male with past medical history significant for severe dementia, type 2 diabetes, hypertension, hyperlipidemia. Patient currently resides at the nursing facility. Patient was sent to the emergency room status post fall that happened last night. Patient had an x-ray done today showing right proximal femur intertrochanteric fracture and was subsequently sent to the emergency room. Patient is disoriented and unable to provide any history. Daughter is currently in the room Case was discussed with her in detail. Past Medical History: Medical History[1] Past Surgical History: Surgical History[2] Social History: Social History Socioeconomic History Marital status: Spouse name: Not on file Number of children: Not on file Years of education: Not on file Highest education level: Not on file Occupational History Not on file Tobacco Use Smoking status: Never Smokeless tobacco: Never Substance and Sexual Activity Alcohol use: Not Currently Drug use: Never Sexual activity: Not on file Other Topics Concern Not on file Social History Narrative Not on file Social Drivers of Health Financial Resource Strain: Not on file Food Insecurity: Not on file Transportation Needs: No Transportation Needs (12/07/2023) PRAPARE - Transportation Lack of Transportation (Medical): No Lack of Transportation (Non-Medical): No Physical Activity: Not on file Stress: Not on file Social Connections: Not on file Intimate Partner Violence: Patient Declined (09/11/2023) Humiliation, Afraid, Rape, and Kick questionnaire Fear of Current or Ex-Partner: Patient declined Emotionally Abused: Patient declined Physically Abused: Patient declined Sexually Abused: Patient declined Housing Stability: Unknown (12/07/2023) Housing Stability Vital Sign Unable to Pay for Housing in the Last Year: No Number of Places Lived in the Last Year: Not on file Unstable Housing in the Last Year: Not on file Family History: Family History[3] Medications Prior to Admission: Current Medications[4] Allergies: Allergies[5] REVIEW OF SYSTEMS: Unable to obtain due to patient mental status Vitals: BP (!) 171/90 (BP Location: Left arm) Pulse 83 Temp 37.3 ?C (99.1 ?F) Resp 18 Ht 6' 2" (1.88 m) Wt 130 lb (59 kg) SpO2 96% BMI 16.69 kg/m? BMI Classification: Underweight (BMI <18.5) Pulse Ox: SpO2 Av % Min: 96 % Max: 96 % Supplemental O2: PHYSICAL EXAM: Constitutional: General: Patient is not in acute distress. Appearance: Normal appearance. HENT: Head: Normocephalic and atraumatic. Right Ear: External ear normal. Left Ear: External ear normal. Mouth/Throat: Mouth: Mucous membranes are moist. Pharynx: Oropharynx is clear. Eyes: Extraocular Movements: Extraocular movements intact. Conjunctiva/sclera: Conjunctivae normal. Pupils: Pupils are equal, round, and reactive to light. Cardiovascular: Comments: Regular rate and rhythm, normal S1-S2, no murmurs noted. Radial pulses 2+ and symmetric. Pulmonary: Effort: Pulmonary effort is normal. No respiratory distress. Breath sounds: Normal breath sounds. No stridor. No wheezing or rhonchi. Abdominal: Comments: The abdomen is soft, nondistended and nontender. There is no rebound tenderness or guarding. Bowel sounds are normal. Skin: General: Skin is warm and dry. Capillary Refill: Capillary refill takes less than 2 seconds. Coloration: Skin is not jaundiced or pale. Findings: No bruising or erythema. Neurological: General: No focal deficit present. Mental Status: Patient is alert and pleasantly confused Musculoskeletal: NO edema, right hip minimal ecchymosis was noted. Pain with the range of motion of the right hip. No shortening or external rotation was noted DATA: CBC: No results for input(s): "WBC", "RBC", "HGB", "HCT", "MCV", "RDW", "PLT" in the last 72 hours. BMP: No results for input(s): "NA", "K", "CL", "CO2", "BUN", "CREATININE", "GLUCOSE", "CALCIUM", "ANIONGAP" in the last 72 hours. LIVER PROFILE: No results for input(s): "AST", "ALT", "BILITOT", "ALKPHOS", "PROT" in the last 72 hours. No lab exists for component: LABALBU PT/INR: No results for input(s): "PROTIME", "INR" in the last 72 hours. CARDIAC ENZYMES: No results for input(s): "TROPONINI" in the last 72 hours. Procalcitonin: No results found for: "PROCAL" Urine Culture: No results found for this or any previous visit. COVID-19 PCR: No results for input(s): "COVID19" in the last 72 hours. I reviewed: [x] laboratory results [x] radiographic results At the time of today's encounter. Pt was advised of the results. Data: (CAT1) Reviewed 3 or more labs/studies ordered by anot (more content not included)... [facility] 03-30-2025 History and physical note Attending History and Physical Admit Date: 03/30/2025 PCP: Marj Plasencia CHIEF COMPLAINT: Fall Reason for Admission: Right hip intertrochanteric fracture History Obtained From: ER provider HISTORY OF PRESENT ILLNESS: Tita is a 89 y.o. male with past medical history significant for severe dementia, type 2 diabetes, hypertension, hyperlipidemia. Patient currently resides at the nursing facility. Patient was sent to the emergency room status post fall that happened last night. Patient had an x-ray done today showing right proximal femur intertrochanteric fracture and was subsequently sent to the emergency room. Patient is disoriented and unable to provide any history. Daughter is currently in the room Case was discussed with her in detail. Past Medical History: Medical History[1] Past Surgical History: Surgical History[2] Social History: Social History Socioeconomic History Marital status: Spouse name: Not on file Number of children: Not on file Years of education: Not on file Highest education level: Not on file Occupational History Not on file Tobacco Use Smoking status: Never Smokeless tobacco: Never Substance and Sexual Activity Alcohol use: Not Currently Drug use: Never Sexual activity: Not on file Other Topics Concern Not on file Social History Narrative Not on file Social Drivers of Health Financial Resource Strain: Not on file Food Insecurity: Not on file Transportation Needs: No Transportation Needs (12/07/2023) PRAPARE - Transportation Lack of Transportation (Medical): No Lack of Transportation (Non-Medical): No Physical Activity: Not on file Stress: Not on file Social Connections: Not on file Intimate Partner Violence: Patient Declined (09/11/2023) Humiliation, Afraid, Rape, and Kick questionnaire Fear of Current or Ex-Partner: Patient declined Emotionally Abused: Patient declined Physically Abused: Patient declined Sexually Abused: Patient declined Housing Stability: Unknown (12/07/2023) Housing Stability Vital Sign Unable to Pay for Housing in the Last Year: No Number of Places Lived in the Last Year: Not on file Unstable Housing in the Last Year: Not on file Family History: Family History[3] Medications Prior to Admission: Current Medications[4] Allergies: Allergies[5] REVIEW OF SYSTEMS: Unable to obtain due to patient mental status Vitals: BP (!) 171/90 (BP Location: Left arm) Pulse 83 Temp 37.3 C (99.1 F) Resp 18 Ht 6' 2" (1.88 m) Wt 130 lb (59 kg) SpO2 96% BMI 16.69 kg/m BMI Classification: Underweight (BMI <18.5) Pulse Ox: SpO2 Av % Min: 96 % Max: 96 % Supplemental O2: PHYSICAL EXAM: Constitutional: General: Patient is not in acute distress. Appearance: Normal appearance. HENT: Head: Normocephalic and atraumatic. Right Ear: External ear normal. Left Ear: External ear normal. Mouth/Throat: Mouth: Mucous membranes are moist. Pharynx: Oropharynx is clear. Eyes: Extraocular Movements: Extraocular movements intact. Conjunctiva/sclera: Conjunctivae normal. Pupils: Pupils are equal, round, and reactive to light. Cardiovascular: Comments: Regular rate and rhythm, normal S1-S2, no murmurs noted. Radial pulses 2+ and symmetric. Pulmonary: Effort: Pulmonary effort is normal. No respiratory distress. Breath sounds: Normal breath sounds. No stridor. No wheezing or rhonchi. Abdominal: Comments: The abdomen is soft, nondistended and nontender. There is no rebound tenderness or guarding. Bowel sounds are normal. Skin: General: Skin is warm and dry. Capillary Refill: Capillary refill takes less than 2 seconds. Coloration: Skin is not jaundiced or pale. Findings: No bruising or erythema. Neurological: General: No focal deficit present. Mental Status: Patient is alert and pleasantly confused Musculoskeletal: NO edema, right hip minimal ecchymosis was noted. Pain with the range of motion of the right hip. No shortening or external rotation was noted DATA: CBC: No results for input(s): "WBC", "RBC", "HGB", "HCT", "MCV", "RDW", "PLT" in the last 72 hours. BMP: No results for input(s): "NA", "K", "CL", "CO2", "BUN", "CREATININE", "GLUCOSE", "CALCIUM", "ANIONGAP" in the last 72 hours. LIVER PROFILE: No results for input(s): "AST", "ALT", "BILITOT", "ALKPHOS", "PROT" in the last 72 hours. No lab exists for component: LABALBU PT/INR: No results for input(s): "PROTIME", "INR" in the last 72 hours. CARDIAC ENZYMES: No results for input(s): "TROPONINI" in the last 72 hours. Procalcitonin: No results found for: "PROCAL" Urine Culture: No results found for this or any previous visit. COVID-19 PCR: No results for input(s): "COVID19" in the last 72 hours. I reviewed: [x] laboratory results [x] radiographic results At the time of today's encounter. Pt was advised of the results. Data: (CAT1) Reviewed 3 or more labs/studies ordered by another provider not previously counted (each=1, panels count as 1). (LOW: 2x CAT1 or independent historian MOD: 3x CAT1 or 1x CAT3 EXTENSIVE: 3x CAT1 and 1x CAT3) Assessment Discussed management with the ED provider and agree with hospitalization. Acute, acute on chronic, unstable/uncontrolled chronic problems/diagnoses: Right proximal femur intertrochanteric fracture Accidental fall Stable chronic problems affecting care, new non-acute diagnoses: Senile dementia Type 2 diabetes Hypertension Hyperlipidemia Plan As a result of the above findings & factors, the following mgmt was pursued: - Admit the patient to the medical floor Will place him on complete bedrest Case discussed with the daughter in detail she would like to discuss with the orthopedic surgery regarding possibility of surgical intervention. I explained to her regarding prognosis. Daughter is very realistic. She would like to touch base with the orthopedic surgery regarding possible palliative surgery. Will also consult palliative care CODE STATUS was discussed with her in detail all the options were explained to her. At this point she prefers to keep him Comfort Care arrest with no intubation. If surgery is deferred then she would like the patient to be discharged back to nursing facility Will resume medications from home Accu-Cheks ACHS with sliding scale coverage needleworker consult - delirium precautions: limit nighttime disturbances - DVT prophylaxis: enoxaparin Complexity: Acute illness with systemic symptoms (MOD). Risk: Admission to hospital-level care was considered or occurred (HIGH). Advance Directive: Prior Anticipated Discharge - Date - 04/01/2025 - [facility] - Pending the following -orthopedic and palliative care evaluation Total time spent (which include face to face and non face to face encounters) : 65 minutes. Toxic drug monitoring/narrow therapeutic index drug monitoring : # Drug name : Lovenox # Route administered : Subcutaneous # Method of monitoring : CBC Extended Emergency Contact Information Primary Emergency Contact: Kayleigh Scott Mobile Relation: Child Secondary Emergency Contact: Mike Keith Mobile Relation: Child [employer] Tita Keith : 1935 Primary Care Physician: Marj Plasencia The patient and/or family/surrogate voluntarily agreed to participate in ACP services. Patient s cognitive capacity: Alert, Orientedx3 Code Status: [_] [FULL CODE - Continue all advanced life support: CPR,intubation,invasive procedures] [x_] [DNR-CCA - DO NOT do CPR, intubation] [_] [DNR-ASSOCIATE PROFESSOR OF ART HISTORY - Comfort care only] [_] DNR form [was/was not] signed Summary of discussion: The patient health care POA/ surrogate is the following: Daughter [Condition that instigated the ACP on this DOS, relevant PMH, functional status, goals of care, and whom this was discussed with including names and relationship to the patient, and any relevant advance care documentation discussion] I answered all the patient/family questions that I could within the range and scope of the current medical situation. We discussed the medical conditions, risks, benefits, outcomes, and goals of care at this time for the patient's medical issues at hand in the face of the patient's chronic issues and current presentation. Total time spent: 7 minutes were spent discussing the patient's resuscitation status, advance care planning, and end of life care, with patient and/or family/surrogate. Shay Velazco MD Division of Hospitalist Medicine [facility] [1] Past Medical History: Diagnosis Date Dementia (HCC) Diabetes mellitus (HCC) Hyperlipidemia Hypertension [2] Past Surgical History: Procedure Laterality Date BACK SURGERY [3] No family history on file. [4] No current facility-administered medications for this encounter. Current Outpatient Medications: cholecalciferol (Vitamin D-3) 50 MCG (2000 UT) capsule, Take 2,000 Units by mouth., Disp: , Rfl: docusate sodium (Colace) 100 MG capsule, Take 100 mg by mouth 2 times daily., Disp: , Rfl: erythromycin (Romycin) 5 MG/GM ophthalmic ointment, Apply 1 Application to left eye Nightly. Apply Amount per Dose: 0.5 inch (~1 cm) per dose., Disp: , Rfl: insulin glargine (Lantus) 100 UNIT/ML injection, Inject 4 Units under the skin Nightly., Disp: 10 mL, Rfl: 12 lisinopril 20 MG tablet, Take 20 mg by mouth daily., Disp: , Rfl: LORazepam (Ativan) 0.5 MG tablet, Take 0.25 mg by mouth 4 times daily as needed for anxiety., Disp: , Rfl: Melatonin 3 MG capsule, Take 6 mg by mouth Nightly., Disp: , Rfl: mirtazapine (Remeron) 15 MG tablet, Take 15 mg by mouth Nightly., Disp: , Rfl: morphine 10 MG/5ML solution, Take 20 mg by mouth every 2 hours as needed for severe pain (7-10)., Disp: , Rfl: QUEtiapine (SEROquel) 25 MG tablet, Take 0.5 tablets (12.5 mg) by mouth 2 times daily., Disp: 30 tablet, Rfl: 0 tamsulosin (Flomax) 0.4 MG 24 hr capsule, Take 0.8 mg by mouth Nightly., Disp: , Rfl: [5] No Known Allergies documented in this encounter [facility] 03-30-2025 Physician Emergency department Note EMERGENCY DEPARTMENT ENCOUNTER Pt Name: Tita Keith Birthdate 1935 Date of evaluation: 03/30/2025 ED Provider: Jj Lara MD CHIEF COMPLAINT Chief Complaint Patient presents with Fall Pt had a fall last night at [facility]. [facility] performed an X-Ray that shows a right femur fracture. Pt is AxOx0 at baseline. Hip Pain Confirmed right femur fracture. HISTORY OF PRESENT ILLNESS (Location/Symptom, Timing/Onset, Context/Setting, Quality, Duration, Modifying Factors, Severity) Note limiting factors. I wore appropriate PPE for the entirety of this encounter. HPI Tita Keith is a 89 y.o. who presents to the emergency department with chief complaint of right hip fracture. Patient had a reported fall last night and had x-rays done today showing a right proximal femur intertrochanteric fracture and sent to the emergency department for this. Patient has a significant history of dementia alert and oriented x 1. Only other noted injury was some ecchymosis to the right elbow. Nursing Notes were reviewed. Limitations to history: None Outside historians: None REVIEW OF SYSTEMS Review of Systems Pertinent positives and negatives as per HPI. PAST MEDICAL HISTORY Medical History[1] SURGICAL HISTORY Surgical History[2] CURRENT MEDICATIONS Previous Medications CHOLECALCIFEROL (VITAMIN D-3) 50 MCG (1999 UT) CAPSULE Take 2,000 Units by mouth. DOCUSATE SODIUM (COLACE) 100 MG CAPSULE Take 100 mg by mouth 2 times daily. ERYTHROMYCIN (ROMYCIN) 5 MG/GM OPHTHALMIC OINTMENT Apply 1 Application to left eye Nightly. Apply Amount per Dose: 0.5 inch (~1 cm) per dose. INSULIN GLARGINE (LANTUS) 100 UNIT/ML INJECTION Inject 4 Units under the skin Nightly. LISINOPRIL 20 MG TABLET Take 20 mg by mouth daily. LORAZEPAM (ATIVAN) 0.5 MG TABLET Take 0.25 mg by mouth 4 times daily as needed for anxiety. MELATONIN 3 MG CAPSULE Take 6 mg by mouth Nightly. MIRTAZAPINE (REMERON) 15 MG TABLET Take 15 mg by mouth Nightly. MORPHINE 10 MG/5ML SOLUTION Take 20 mg by mouth every 2 hours as needed for severe pain (7-10). QUETIAPINE (SEROQUEL) 25 MG TABLET Take 0.5 tablets (12.5 mg) by mouth 2 times daily. TAMSULOSIN (FLOMAX) 0.4 MG 24 HR CAPSULE Take 0.8 mg by mouth Nightly. ALLERGIES Patient has no known allergies. FAMILY HISTORY Family History[3] SOCIAL HISTORY Social History[4] SCREENINGS PHYSICAL EXAM ED Triage Vitals Temp Heart Rate Resp BP 03/30/25 1802 03/30/25 1758 03/30/25 17503/30/[id number] 37.3 C (99.1 F) 83 18 (!) 171/90 SpO2 Temp src Heart Rate Source Patient Position 03/30/251757 -- -- -- 96 % BP Location FiO2 (%) 03/30/25 1758 -- Left arm General appearance: Well-appearing, no acute distress. Psych: Awake alert and oriented 1. Pleasant and cooperative. Skin: Warm and dry. Neck: Supple. Nontender Cardiovascular: Regular rate and rhythm Lungs: no accessory muscle use, tachypnea, or retractions. Abdomen: Soft, nontender, and nondistended, no rebound, rigidity, or guarding, positive bowel sounds 4 quadrants. Extremities: Warm and well perfused. NROM and SILT throughout upper and lower extermities. Pain with any range of motion of the right hip. No shortening or external rotation. No pain with range of motion of the remainder of the extremities. There is no right knee pain or ankle pain. There is a small area of ecchymosis just distal to the right elbow but no pain at the medial or lateral epicondyle. No pain at the olecranon and normal range of motion of the elbow. DIAGNOSTIC RESULTS Interpretation per the Radiologist below, if available at the time of this note: XR chest 1 view Final Result Normal examination. Report Dictated on Electronically Signed By: Gerhard Hannah MD Electronically Signed Date/Time: 03/30/2025 7:24 PM EDT XR femur right 2+ views Final Result XR pelvis 1 or 2 views Final Result ED BEDSIDE ULTRASOUND: Performed by ED Physician - none LABS: Labs Reviewed CBC WITH AUTO DIFFERENTIAL PROTHROMBIN TIME APTT BLOOD TYPE AND SCREEN GEL BASIC METABOLIC PANEL All other labs were within normal range or not returned as of this dictation. EMERGENCY DEPARTMENT COURSE and DIFFERENTIAL DIAGNOSIS/MDM: Vitals: Vitals: 03/30/25 1758 03/30/25 1800 03/30/25 1802 BP: (!) 171/90 BP Location: Left arm Pulse: 83 Resp: 18 Temp: 37.3 C (99.1 F) SpO2: 96% 96% Weight: 59 kg (130 lb) Height: 1.88 m (6' 2") The patient presented with a chief complaint of right hip fracture. The differential diagnosis associated with this patient's presentation includes intertrochanteric fracture. Our workup consisted of ordering/reviewing repeat x-rays as well as preoperative labs and x-rays.. External records reviewed: Outpatient labs and studies report from x-rays outpatient showing a right intertrochanteric fracture Diagnostics interpreted by me: Xray(s) right intertrochanteric fracture Discussions with other clinicians: Admitting team hospitalist and Women'S Soccer Coach orthopedic resident Admission Criteria: The patient needs Med/surg level of care and not appropriate for a lower acuity location of care due to hip fracture Chronic conditions impacting care: Dementia ED Medications managed: Medications QUEtiapine (SEROquel) tablet 25 mg (has no administration in time range) CRITICAL CARE TIME CONSULTS: None PROCEDURES: Unless otherwise noted below, none Procedures FINAL IMPRESSION 1. Closed nondisplaced intertrochanteric fracture of right femur, initial encounter (HCC) DISPOSITION Admit 03/30/2025 08:00:24 PM PATIENT REFERRED TO: No follow-up provider specified. DISCHARGE MEDICATIONS: New Prescriptions No medications on file (Comment: Please note this report has been produced using speech recognition software and may contain errors related to that system including errors in grammar, punctuation, and spelling, as well as words and phrases that may be inappropriate. If there are any questions or concerns please feel free to contact the dictating provider for clarification.) Jj Lara MD (electronically signed) Emergency Medicine Provider [1] Past Medical History: Diagnosis Date Dementia (HCC) Diabetes mellitus (HCC) Hyperlipidemia Hypertension [2] Past Surgical History: Procedure Laterality Date BACK SURGERY [3] No family history on file. [4] Social History Socioeconomic History Marital status: Tobacco Use Smoking status: Never Smokeless tobacco: Never Substance and Sexual Activity Alcohol use: Not Currently Drug use: Never Social Drivers of Health Transportation Needs: No Transportation Needs (12/07/2023) PRAPARE - Transportation Lack of Transportation (Medical): No Lack of Transportation (Non-Medical): No Intimate Partner Violence: Patient Declined (09/11/2023) Humiliation, Afraid, Rape, and Kick questionnaire Fear of Current or Ex-Partner: Patient declined Emotionally Abused: Patient declined Physically Abused: Patient declined Sexually Abused: Patient declined Housing Stability: Unknown (12/07/2023) Housing Stability Vital Sign Unable to Pay for Housing in the Last Year: No Jj Lara MD 03/30/251999 T [facility] 12-12-2023 History of Presen t illness Narrative Patients daughter was informed that the patient is set up for transfer to [facility] at 1:00pm. Report was called to [facility]. They were notified of hand picker time of 1300. They did request a covid test before discharge. Will contact Dr Braun for an order and obtain prior to leaving. Images from the original note were not included. OCCUPATIONAL THERAPY [facility] Treatment Note Name/MRN: Tita Keith ([id number]) Date of : 1935 Age: 88 y.o. Room/Bed: [facility] A Visit #: 2 out of 7 visits Discharge Recommendation: [facility] Facility Equipment Needed: No Prior Level of Function ADL Assistance: Needs Assist Ambulation Assistance: Needs Assistance Device(s) used: front wheeled walker Transfer Assistance: Needs Assist Assessment Pt in the bed uncovered and wearing only only a brief. Is pleasantly confused. States name but not birthday. Pt is max assist for supine > sit, SBA for sitting balance, max assist with LB dressing, mod assist with UB self care, max assist for sit > stand and mod assist to side step to th HOB. Once standing and balanced, pt was light min assist to maintain standing balance. Stood approx 3 minutes to pull up pants and resting before and after side stepping. Pt limited by decreased standing balance, weakness, fatigue and decreased cognition. OT recs SNF a discharge. Subjective Pt pleasantly confused Pain: Pt did not c/o pain Medical Precautions: Droplet Proper PPE donned/doffed in accordance with facility standards. Fall Risk: [place] Fall Risk Score: 85 (High Risk) Precautions/Restrictions: N/A Family/Caregiver Present: none Objective ADLs Feeding: SBA, after setup, Pt able to feed himself some yogurt in the bed after set up. Grooming: Mod Assist, washd face with set up and needed total assist for hair care. UE Dressing: Mod Assist, Hospital gown. LE Dressing: Max Assist, to don pants sitting EOB and to stand and pull up over hips. Toileting: Pt currently set up with a pure wick and is wearing a brief. Pt sat EOB to don pants and gown. No LOB in sitting but needed max assist to start pants and then conductor pullman hips. Fair tolerance. Bed Mobility Supine to sit: Max Assist Sit to supine: Mod Assist Transfers/Mobility Sit to stand: Max Assist Stand to sit: Mod Assist Sitting balance: SBA Standing balance: Min Assist Functional mobility: Mod Assist Once standing at the FWW, pt was able to stand for a total of 3-4 minutes between LB ADL's and side stepping to the HOB. Mod assist needed to side step with max verbal and visual cues. Pt is limited by decreased balance and decreased cognition. Device(s) used: front wheeled walker and hospital bed Cognition - Following commands: follows one step commands with increased time, follows one step commands with repetition, follows multi-step commands with increased time, and follows multi-step commands with repetition. - Memory: decreased short term memory and decreased lobsterman memory - Safety judgement: decreased awareness of need for assistance - Sequencing: requires cues for some Exceptions Pt is pleasant and not agitated. Plan Continue acute OT per plan of care. Safety/Education Safety Safety Devices in place: All fall risk precautions in place, call light within reach, left in bed, bed alarm in place, gait belt, and nurse notified Restraints: No Education Education Given To: patient Education Provided: OT Role, Plan of Care, ADL Adaptive Strategies, Transfer Training, Fall Prevention Education, and Benefits of Increasing Activity Education Method: Verbal and Demonstration Barriers to Learning: Cognition Education Outcome: Verbalized Understanding, Demonstrated Understanding, and Continued Education Needed AM-PAC AM-PAC Inpatient Daily Activity Raw Score: 13 ADL Inpatient CMS G-Code Modifier: CL Goals Patient Stated Goal: None stated Encounter Problems Encounter Problems (Active) Dressing Upper Extremities Patient will complete upper body dressing SBA (Progressing) Start: 12/07/23 Expected End: 12/17/23 Dressings Lower Extremities Patient will dress lower body MIN A overall (Progressing) Start: 12/07/23 Expected End: 12/17/23 Mobility Patient will demonstrate functional mobility with SBA and FWW (Progressing) Start: 12/07/23 Expected End: 12/17/23 Toileting Patient will complete toileting tasks at standard toilet with SBA. (Not Addressed) Start: 12/07/23 Expected End: 12/17/23 Transfers Patient will complete functional transfer with rolling walker with SBA in order to prepare for ambulation. (Progressing) Start: 12/07/23 Expected End: 12/17/23 Therapy Time Individual Co-treatment Time In 1143 Time Out 1215 Minutes 32 Timed Code Treatment Minutes: 32 Minutes (adl and ther act) KORI Carbone Images from the original note were not included. 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 Vitals, notes, and lab work reviewed. Patient is awake, pt is confused, and resting comfortably in bed. He remains afebrile and on RA. His daughter is at bedside. Daughter states his cough has improved and he has not had any mucous production. Patient denies shortness of breath, chest pain, and dyspnea on exertion. Has been able to ambulate with assistance. He denies chills, n/v, and diarrhea. Tolerating antibiotics, anticipated DC today. Objective: Vitals: Patient Vitals for the past 24 hrs: BP Temp Temp src Pulse Resp SpO2 Height 12/12/23 0942 143/77 36.7 C (98.1 F) Temporal 75 16 98 % -- 12/12/23 0827 -- -- -- 75 16 96 % -- 12/12/23 0324 132/86 36.3 C (97.4 F) Temporal 78 18 96 % -- 12/12/23 0022 (!) 164/98 36.6 C (97.9 F) Temporal 83 18 90 % -- 12/11/23 2148 -- -- -- 86 18 94 % -- 12/11/232020 149/91 36.9 C (98.5 F) Temporal 82 18 94 % -- 12/11/23 1717 -- -- -- 76 16 93 % -- 12/11/23 1454 -- -- -- -- -- -- 1.88 m (6' 2") Physical Exam Vitals and nursing note reviewed. Constitutional: General: He is awake. He is not in acute distress. Appearance: He is not toxic-appearing. Comments: Pt is alert, interactive and conversant, NAD. HENT: Head: Normocephalic and atraumatic. Nose: No congestion. Mouth/Throat: Mouth: Mucous membranes are moist. Eyes: General: Right eye: No discharge. Left eye: No discharge. Extraocular Movements: Extraocular movements intact. Conjunctiva/sclera: Left eye: No exudate. Pupils: Pupils are equal, round, and reactive to light. Comments: Right eye ptosis, Left lower lid redness. No drainage today and overall improved. Cardiovascular: Rate and Rhythm: Normal rate and regular rhythm. Pulses: Radial pulses are 2+ on the right side and 2+ on the left side. Dorsalis pedis pulses are 2+ on the right side and 2+ on the left side. Heart sounds: S1 normal and S2 normal. No murmur heard. No gallop. Pulmonary: Effort: No accessory muscle usage or respiratory distress. Breath sounds: Decreased air movement (right lower lobe) present. Examination of the left-lower field reveals rales. Rales present. No wheezing or rhonchi. Comments: Breathing comfortable on RA Abdominal: General: Abdomen is flat. Bowel sounds are normal. There is no distension. Palpations: Abdomen is soft. Tenderness: There is no abdominal tenderness. Musculoskeletal: General: No swelling or tenderness. Cervical back: Full passive range of motion without pain and neck supple. Right lower leg: No edema. Left lower leg: No edema. Skin: General: Skin is warm and dry. Capillary Refill: Capillary refill takes less than 2 seconds. Neurological: General: No focal deficit present. Mental Status: He is alert. Mental status is at baseline. He is disoriented. Sensory: Sensation is intact. Motor: Weakness present. No tremor. Coordination: Coordination normal. Psychiatric: Attention and Perception: Attention normal. Mood and Affect: Mood normal. Speech: Speech is delayed ((baseline)). Behavior: Behavior is cooperative. Thought Content: Thought content normal. Cognition and Memory: Memory is impaired. Comments: Baseline dementia Labs: Recent Labs 12/10/23 0348 12/11/23 0315 NA 137 137 K 3.6 3.6 CL 104 105 CO2 25 23 BUN 19 18 CREATININE 0.99 1.02 GLUCOSE 124* 117* CALCIUM 9.3 9.5 PROT 6.8 6.9 BILITOT 0.2 0.3 ALKPHOS 93 104 AST 24 27 ALT 24 24 Recent Labs 12/10/23 0348 12/11/23 0315 WBC 4.3 4.6 HGB 11.8* 12.1* HCT 34.7* 36.0* PLT 185 204 Micro: 12/12- Covid ag- negative 12/08- MRSA by PCR- negative 12/07- strep pneumo ag- +positive 12/07- legionella ag- negative 12/06- covid/rsv/flu combo- + RSV 12/06- blood cx- 11/23 NGTD Lines: PIV x1 Radiography/Echo/Other: 12/06- CT chest 1. No evidence of large vessel or central pulmonary emboli. 2. Mucous plugging and patchy atelectasis, infiltrates or postinflammatory change in the bilateral lower lobes, right greater than left, of uncertain chronicity. Correlate clinically. 3. Wedge-shaped compression deformities in mid thoracic vertebral bodies may represent insufficiency change, but age-indeterminate. 12/06- CXR Cardiac monitoring wires and leads are present. The trachea is midline. The cardiac silhouette is within normal limits. There is no confluent consolidation. Impression: No radiographic acute cardiopulmonary process. Antimicrobials, Start/End Dates: Vancomycin: 12/06 Pip/tazo: 12/06-12/07 Ceftriaxone: 12/08-present Impression: Bilateral pneumococcal pneumonia Acute RSV infection Fevers- resolved Bilateral conjunctival eye drainage; likely viral- improving Dementia DM Plan: Continue Ceftriaxone x 7 days total through 12/13 Can be transitioned to Cefdinir 300 mg bid to complete course at discharge Ok to transition to next phase of care from ID standpoint. Carola Raines NP Student 11:51am 12/12/23 [facility] Infectious Disease Advance Practice Provider Note Patient seen and evaluated with STRAND FORMING MACHINE OPERATOR student. I performed/re-performed a history and physical examination of the patient and discussed his/her management with the student. I reviewed pertinent history, medications, labs, radiology, and other reports. I performed the associated medical decision making activities, reviewed the note and agree with the documented findings and plan of care with changes as noted with italics. Doing well overall all and clinically Improved. Plans to discharge back to [facility] today. Based on diagnoses and management, combination of acute and chronic problems, exacerbations and/or acuity, this visit should be considered to be of moderate complexity. Nusrat Conde CNP [facility] Medical [facility] - Infectious Diseases 2:10 PM 12/12/2023 Nutrition Assessment Type and Reason for Visit: Reassess Nutrition Recommendations/Plan: Continue with Adult diet Dysphagia - Minced and Moist; 5 carb choices (75 gm/meal); No Drinking Straws Monitor need to consult CLAIMS PROCESSOR. Pt currently denies any further deficits, but not always a reliable historian. Continue with Ensure high protein BID. Ensure High Protein provides 160 kcals, 16 g protein per serving. Initiate Ensure Plus High Protein once daily per MNT protocol. Ensure Plus High Protein provides 350 kcals, 20g protein per serving. Please document pt's PO intakes via flowsheet to accurately assess PO intake adequacy. Monitor intakes, weights, and labs weekly. RD will follow. Malnutrition Assessment: Malnutrition Status: Severe malnutrition Context: Chronic Illness Findings of the 6 clinical characteristics of malnutrition: Energy Intake: 75% or less estimated energy requirements for 1 month or longer Weight Loss: Unable to assess Body Fat Loss: Severe body fat loss Orbital, Triceps, Buccal region Muscle Mass Loss: Severe muscle mass loss Temples (temporalis), Clavicles (pectoralis & deltoids), Thigh (quadraceps), Calf (gastrocnemius), Hand (interosseous), Scapula (trapezius) Fluid Accumulation: Mild Extremities Machine Attendant Strength: Not Performed Nutrition Assessment: Pt is comfortable, pleasant, answering questions, but may not be a reliable historian. Pt stated that he is eating well during admit, however, documented intakes are mostly <50% of meals. Pt reported to RD that he is eating most of the food he is receiving. Pt also stated that he is drinking his chocolate Ensure supplements. Agreed to receive TID. Will trial alternating low CHO Ensure and high protein/high calorie Ensure Plus HP to maximize nutrient intake. RD weighed the pt via bed scale today at 129.5#. Pt with evident severe muscle/fat loss observed. Estimated Daily Nutrient Needs: Energy Requirements Based On: Kcal/kg Weight Used for Energy Requirements: Current Weight for Energy Calculation (kg): 56 kg Total Energy Requirements (kcals/day): 5656-9877 kcals (30-35 kcals/kg) Weight Used for Protein Requirements: Current Weight in Kg Used for Protein Requirements: 56 kg Estimated Total Protein (g/day): 67-84 (1.2-1.5g/kg) Estimated Daily Total Fluid (ml/day): 1700 ml/day or per MD Nutrition Related Findings: non pitting generalized edema; trace RUE, non pitting BLE edema; Glucose 117, 124, 42, Hgb 12.1, Hct 36.0, Hgb A1c 6.1% Wound Type: Skin Tears (facial skin tear, red coccyx, scattered bruising) Current Nutrition Therapies: Adult diet Dysphagia - Minced and Moist; 5 carb choices (75 gm/meal); No Drinking Straws Current Oral Intake Average Meal Intake: 26-50%, 1-25% Average Supplements Intake: 76-100% Anthropometric Measures: Height: 188 cm (6' 2") Current Body Weight: 58.7 kg (129 lb 8 oz) Weight Source: Bed Scale Admission Body Weight: 55.8 kg (123 lb) (stated) Usual Body Weight: 57.6 kg (127 lb) (127-128# at facility) % Weight Change (Calculated): -3.1 [place] Body Weight (lbs) (Calculated): 190 lbs [place] Body Weight (Kg) (Calculated): 86 kg % [place] Body Weight (Calculated): 68.2 % BMI (kg/m2) (Calculated): 16.6 Weight Adjustment For: No Adjustment BMI Categories: Underweight (BMI less than 22) age over 65 Nutrition Diagnosis: Severe malnutrition related to inadequate protein-energy intake, cognitive or neurological impairment as evidenced by poor intake prior to admission, severe loss of subcutaneous fat, severe muscle loss, localized or generalized fluid accumulation Increased nutrient needs related to increase demand for energy/nutrients, impaired respiratory function as evidenced by BMI, other (comment) (estimated anabolic needs) Nutrition Interventions: Nutrition Education/Counseling: No recommendation at this time Coordination of Nutrition Care: Continue to monitor while inpatient Plan of Care discussed with: Patient Goals: Previous Goal Met: No Progress toward Goal(s) Goals: PO intake 75% or greater, by next RD assessment Nutrition Monitoring and Evaluation: Behavioral-Environmental Outcomes: None Identified Food/Nutrient Intake Outcomes: Diet Advancement/Tolerance, Food and Nutrient Intake, Supplement Intake Physical Signs/Symptoms Outcomes: Biochemical Data, GI Status, Nausea or Vomiting, Fluid Status or Edema, Nutrition Focused Physical Findings, Skin, Weight Discharge Planning: Continue current diet, Continue Oral Nutrition Supplement Dian Tipton RD Contact: *[phone] or via Secure Chat Images from the original note were not included. Hospitalist Progress Note 12/11/2023 Subjective: Admit Date: 12/06/2023 PCP: Marj Plasencia Room#: B2-260/B2-260 A Brief Hospital course: Interval History: Alert, awake, oriented to self only Discussed with daughter at bedside. Adult diet Dysphagia - Minced and Moist; 5 carb choices (75 gm/meal); No Drinking Straws 24HR INTAKE/OUTPUT: Intake/Output Summary (Last 24 hours) at 12/11/2023 1244 Last data filed at 12/11/2023 1100 Gross per 24 hour Intake 410 ml Output 1 ml Net 409 ml Past Medical History: Past Medical History: Diagnosis Date Dementia (HCC) Diabetes mellitus (HCC) Hyperlipidemia Hypertension LABS: CBC: Recent Labs 12/09/23 04012/10/23 0348 12/11/23 0315 WBC 4.3 4.3 4.6 RBC 3.97* 3.93* 4.08* HGB 11.8* 11.8* 12.1* HCT 35.3* 34.7* 36.0* MCV 89.0 88.3 88.2 RDW 13.9 13.7 13.7 PLT 166 185 204 BMP: Recent Labs 12/09/23 0407 12/10/23 0348 12/11/23 0315 NA 141 137 137 K 3.3* 3.6 3.6 CL 108* 104 105 CO2 26 25 23 BUN 22* 19 18 CREATININE 1.01 0.99 1.02 GLUCOSE 42* 124* 117* CALCIUM 9.1 9.3 9.5 ANIONGAP 8 8 9 LIVER PROFILE: Recent Labs 12/09/23 0407 12/10/23 0348 12/11/23 0315 AST 27 24 27 ALT 22 24 24 BILITOT 0.3 0.2 0.3 ALKPHOS 90 93 104 PROT 6.4 6.8 6.9 PT/INR: No results for input(s): "PROTIME", "INR" in the last 72 hours. CARDIAC ENZYMES: No results for input(s): "TROPONINI" in the last 72 hours. Procalcitonin: Lab Results Component Value Date PROCAL 3.53 (H) 12/09/2023 COVID-19 PCR: No results for input(s): "COVID19" in the last 72 hours. Objective: Vitals: BP 148/85 Pulse 84 Temp 36.3 C (97.4 F) (Temporal) Resp 16 Ht 6' 2" (1.88 m) Wt 123 lb (55.8 kg) SpO2 94% BMI 15.79 kg/m Pulse Ox: SpO2 Av.2 % Min: 94 % Max: 97 % Supplemental O2: Physical Exam Medications: cefTRIAXone, 1,000 mg, IntraVENous, q24h docusate sodium, 100 mg, Oral, BID enoxaparin, 30 mg, SubCUTAneous, Daily insulin glargine, 4 Units, SubCUTAneous, Nightly insulin lispro, 0-12 Units, SubCUTAneous, TID WC And insulin lispro, 0-12 Units, SubCUTAneous, Nightly insulin lispro, 5 Units, SubCUTAneous, Once ipratropium-albuterol, 3 mL, Nebulization, TID lisinopril, 20 mg, Oral, Daily Melatonin, 5 mg, Oral, Nightly mirtazapine, 15 mg, Oral, Nightly QUEtiapine, 12.5 mg, Oral, BID sodium chloride 0.9%, 10 mL, IntraVENous, 2 times per day tamsulosin, 0.8 mg, Oral, Nightly Assessment Data: (CAT1) Reviewed 1 notes from different specialty or health system (each=1). (LOW: 2x CAT1 or independent historian MOD: 3x CAT1 or 1x CAT3 EXTENSIVE: 3x CAT1 and 1x CAT3) Acute, acute on chronic, unstable/uncontrolled chronic problems/diagnoses: Community-acquired pneumonia due to RSV and Streptococcus pneumonia Simple sepsis due to above Acute hypoxia with respiratory insufficiency Mild elevated troponin due to demand ischemia Type 2 diabetes mellitus with hyperglycemia Alzheimer's dementia with behavioral disturbance Severe malnutrition Stable chronic problems affecting care, new non-acute diagnoses: Dementia DM HTN HLP Plan As a result of the above findings & factors, the following mgmt was pursued: - continue ceftriaxone to complete the course - DC planning. - am labs, replace lytes prn - PT/OT/CM/SW - delirium precautions: increase activity - DVT prophylaxis: enoxaparin and encourage ambulation Extended Emergency Contact Information Primary Emergency Contact: Kayleigh Scott Mobile Relation: Child Secondary Emergency Contact: Mike Keith Mobile Relation: Child Ruiz Braun MD Division of Hospitalist Medicine [facility] Images from the original note were not included. 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 Notes reviewed. Pt is alert and pleasantly confused. Resting comfortably in bed on RA. Daughter present at bedside. States he still has an occasional cough. Walked the halls yesterday wo dyspnea or sob. Diet is fare. Tolerating abx. Afebrile. Objective: Vitals: Patient Vitals for the past 24 hrs: BP Temp Temp src Pulse Resp SpO2 12/11/23 0835 -- -- -- 84 16 94 % 12/11/23 0749 148/85 36.3 C (97.4 F) Temporal 69 15 97 % 12/10/232038 152/89 36.7 C (98.1 F) Temporal 69 18 94 % 12/10/232031 -- -- -- 66 18 94 % 12/10/23 1451 151/87 36.2 C (97.2 F) Temporal 71 18 97 % 12/10/23 1255 -- -- -- 78 18 95 % 12/10/23 1059 104/65 36.4 C (97.5 F) Temporal 76 16 99 % Physical Exam Vitals and nursing note reviewed. Constitutional: General: He is not in acute distress. Appearance: Normal appearance. He is not toxic-appearing. Comments: Alert and interactive elderly male sitting up in bed, NAD. HENT: Head: Normocephalic and atraumatic. Nose: Nose normal. Mouth/Throat: Mouth: Mucous membranes are moist. Pharynx: Oropharynx is clear. No oropharyngeal exudate. Eyes: General: No scleral icterus. Right eye: No discharge. Left eye: No discharge. Conjunctiva/sclera: Conjunctivae normal. Comments: + mild R eye ptosis. L eye conjunctiva clear with clear drainage. Cardiovascular: Rate and Rhythm: Normal rate and regular rhythm. Pulmonary: Effort: Pulmonary effort is normal. No respiratory distress. Breath sounds: Normal breath sounds. No wheezing, rhonchi or rales. Comments: Diminished bases; breathing comfortable on RA Abdominal: General: Bowel sounds are normal. There is no distension. Palpations: Abdomen is soft. Tenderness: There is no abdominal tenderness. There is no right CVA tenderness, left CVA tenderness or guarding. Musculoskeletal: General: No swelling or tenderness. Normal range of motion. Cervical back: Neck supple. Right lower leg: No edema. Left lower leg: No edema. Skin: General: Skin is warm and dry. Findings: No erythema or rash. Neurological: General: No focal deficit present. Mental Status: He is alert. Mental status is at baseline. Cranial Nerves: No cranial nerve deficit. Motor: Weakness present. Comments: Baseline dementia Psychiatric: Mood and Affect: Mood normal. Behavior: Behavior normal. Labs: Recent Labs 12/09/23 0407 12/10/23 0348 12/11/23 0315 NA 141 137 137 K 3.3* 3.6 3.6 CL 108* 104 105 CO2 26 25 23 BUN 22* 19 18 CREATININE 1.01 0.99 1.02 GLUCOSE 42* 124* 117* CALCIUM 9.1 9.3 9.5 PROT 6.4 6.8 6.9 BILITOT 0.3 0.2 0.3 ALKPHOS 90 93 104 AST 27 24 27 ALT 22 24 24 PROCAL 3.53* -- -- Recent Labs 12/09/23 0407 12/10/23 0348 12/11/23 0315 WBC 4.3 4.3 4.6 HGB 11.8* 11.8* 12.1* HCT 35.3* 34.7* 36.0* PLT 166 185 204 Micro: 12/08- MRSA by PCR- negative 12/07- strep pneumo ag- +positive 12/07- legionella ag- negative 12/06- covid/rsv/flu combo- + RSV 12/06- blood cx- 11/23 NGTD Lines: PIV Radiography/Echo/Other: 12/06- CT chest 1. No evidence of large vessel or central pulmonary emboli. 2. Mucous plugging and patchy atelectasis, infiltrates or postinflammatory change in the bilateral lower lobes, right greater than left, of uncertain chronicity. Correlate clinically. 3. Wedge-shaped compression deformities in mid thoracic vertebral bodies may represent insufficiency change, but age-indeterminate. 12/06- CXR Cardiac monitoring wires and leads are present. The trachea is midline. The cardiac silhouette is within normal limits. There is no confluent consolidation. Impression: No radiographic acute cardiopulmonary process. Antimicrobials, Start/End Dates: Vancomycin: 12/06 Pip/tazo: 12/06-12/07 Ceftriaxone: 12/08-present Impression: Bilateral pneumococcal pneumonia Acute RSV infection Fevers- resolved Bilateral conjunctival eye drainage; likely viral Dementia DM Plan: Continue Ceftriaxone x 7 days total through 12/13 Can be transitioned to Cefdinir 300 mg bid to complete course at discharge ID service will continue to follow; plan d/w Dr. Favian Conde CNP [facility] - Infectious Diseases 10:58 AM 12/11/2023 Based on diagnoses and management, combination of acute and chronic problems, exacerbations and/or acuity, this visit should be considered to be of moderate complexity. Images from the original note were not included. Hospitalist Progress Note 12/10/2023 [id number]: Please secure chat me for patient care issues. [phone]: Please secure chat [facility] Hospitalist for any issues. Subjective: Admit Date: 12/06/2023 PCP: Marj Plasencia Room#: B2260/B2-564 A Brief History: Patient is 88-year-old gentleman with dementia admitted for shortness of breath and fever, CT chest showed mucous plugging and multiple infiltrates atelectasis versus pneumonia, respiratory panel positive for strep pneumo and RSV, Chief Complaint : Breathing and cough better, frequent agitation, daughter at bedside in the morning Interval History: Frequent agitation, received Haldol Cough and breathing improved, respiratory PCR panel grew strep pneumo Adult diet Dysphagia - Minced and Moist; 5 carb choices (75 gm/meal); No Drinking Straws @[id number]@ 24HR INTAKE/OUTPUT: Intake/Output Summary (Last 24 hours) at 12/10/2023 1314 Last data filed at 12/10/2023 0838 Gross per 24 hour Intake 850 ml Output 1000 ml Net -150 ml Past Medical History: Past Medical History: Diagnosis Date Dementia (HCC) Diabetes mellitus (HCC) Hyperlipidemia Hypertension LABS: CBC: Recent Labs 12/08/2332212/09/2340612/10/23347 WBC 6.0 4.3 4.3 RBC 3.89* 3.97* 3.93* HGB 11.7* 11.8* 11.8* HCT 35.0* 35.3* 34.7* MCV 90.0 89.0 88.3 RDW 13.9 13.9 13.7 PLT 146 166 185 BMP: Recent Labs 12/08/2332212/09/2340612/10/23347 NA 138 141 137 K 3.9 3.3* 3.6 CL 105 108* 104 CO2 28 26 25 BUN 35* 22* 19 CREATININE 1.29* 1.01 0.99 GLUCOSE 143* 42* 124* CALCIUM 9.2 9.1 9.3 ANIONGAP 4 8 8 LIVER PROFILE: Recent Labs 12/08/2332212/09/2340612/10/23347 AST 34 27 24 ALT 23 22 24 BILITOT 0.6 0.3 0.2 ALKPHOS 92 90 93 PROT 6.5 6.4 6.8 PT/INR: No results for input(s): "PROTIME", "INR" in the last 72 hours. CARDIAC ENZYMES: No results for input(s): "TROPONINI" in the last 72 hours. Procalcitonin: Lab Results Component Value Date PROCAL 3.53 (H) 12/09/2023 COVID-19 PCR: No results for input(s): "COVID19" in the last 72 hours. Objective: Vitals: BP 104/65 (BP Location: Left arm, Patient Position: Lying) Pulse 78 Temp 36.4 C (97.5 F) (Temporal) Resp 18 Ht 6' 2" (1.88 m) Wt 123 lb (55.8 kg) SpO2 95% BMI 15.79 kg/m Pulse Ox: SpO2 Av.9 % Min: 93 % Max: 99 % Physical Exam Constitutional: Appearance: He appears weak and pleasant on my initial exam Lateral in one hour, he became agitated and received Haldol-fluctuating agitation Cardiovascular: Rate and Rhythm: Normal rate and regular rhythm. Pulses: Normal pulses. Heart sounds: Normal heart sounds, S1 normal and S2 normal. Pulmonary: Diminished air entry throughout, normal respiratory effort Abdominal: General: Bowel sounds are normal. Palpations: Abdomen is soft. Musculoskeletal: Right lower le+ Pitting Edema present. Left lower le+ Pitting Edema present. Skin: Comments: Chronic skin changes of the legs Neurological: Comments: Underlying baseline dementia Medications: cefTRIAXone, 1,000 mg, IntraVENous, q24h docusate sodium, 100 mg, Oral, BID enoxaparin, 30 mg, SubCUTAneous, Daily haloperidol lactate, 2 mg, IntraMUSCular, Once insulin glargine, 14 Units, SubCUTAneous, Nightly insulin lispro, 0-12 Units, SubCUTAneous, TID WC And insulin lispro, 0-12 Units, SubCUTAneous, Nightly insulin lispro, 5 Units, SubCUTAneous, Once ipratropium-albuterol, 3 mL, Nebulization, TID lisinopril, 20 mg, Oral, Daily Melatonin, 5 mg, Oral, Nightly mirtazapine, 15 mg, Oral, Nightly QUEtiapine, 12.5 mg, Oral, BID sodium chloride 0.9%, 10 mL, IntraVENous, 2 times per day tamsulosin, 0.8 mg, Oral, Nightly Assessment Acute Problems : Community-acquired pneumonia due to RSV and Streptococcus pneumonia Simple sepsis due to above Acute hypoxia with respiratory insufficiency Mild elevated troponin due to demand ischemia Type 2 diabetes mellitus with hyperglycemia Alzheimer's dementia with behavioral disturbance Severe malnutrition Stable chronic problems affecting care, new non-acute diagnoses: Past Medical History: Diagnosis Date Dementia (HCC) Diabetes mellitus (HCC) Hyperlipidemia Hypertension Medical Decision Making 12/08 -says he feels better today, O2 sats maintaining well on room air, appears weak, daughter at bedside, PT and OT assessments, encourage oral intake, protein supplements, DC'd IV fluids DuoNebs 3 times a day, O2 supplementation, on ceftraixone switched from Zosyn and vancomycin, PCR panel positive for strep pneumo and RSV Procalcitonin high 12/09 -has dementia, feels breathing is better, continue current antibiotics and DuoNebs maintaining good O2 saturations PT and OT assessments 12/10 -Haldol as needed for agitation, antibiotic switched to ceftriaxone, respiratory panel grew strep pneumo, discussed with infectious diseases Blood sugar management, sitter free for 24 hours to be transferred to extended care facility, continue DuoNebs Maintaining good O2 saturations -am labs, replace lytes prn -increase activity -DVT prophylaxis: [] Lovenox [] Heparin [] SCDs [x] Encourage ambulation [] Already on Anticoagulation Anticipated Discharge - Date -December 12 or - Location -retirement facility - Pending the following -sitter free for 24 hours Total time spent (which include face to face and non face to face encounters) : 36 minutes Toxic drug monitoring/narrow therapeutic index drug monitoring : # Drug name : # Route administered : # Method of monitoring : Extended Emergency Contact Information Primary Emergency Contact: Kayleigh Scott Mobile Relation: Child Secondary Emergency Contact: Mike Keith Mobile Relation: Child RAI RAY MD, Division of Hospitalist Medicine [facility] PAGER: Epic chat Images from the original note were not included. PHYSICAL THERAPY [facility] Treatment Note Name/MRN: Tita Keith ([id number]) Date of : 1935 Age: 88 y.o. Room/Bed: B2-260/B2-260 A Visit #: 1 out of 5 visits Discharge Recommendation: [facility] Facility Equipment Needed: No Prior Level of Function ADL Assistance: Needs Assist Ambulation Assistance: Needs Assistance Device(s) used: front wheeled walker Transfer Assistance: Needs Assist Assessment Pt presents with improved functional independence and is progressing towards PT goals. Pt completed bed mobility, transfers and short ambulation with use of FWW and Jorge. Pt with history of dementia and requires constant cues for sequencing and to stay on task. Pt should continue to benefit from skilled PT to increase functional independence and safety. Continue to rec SNF. Subjective Pt lying in bed and agreeable to therapy. Pain: Pt denies any current pain. Medical Precautions: Droplet Proper PPE donned/doffed in accordance with facility standards. Fall Risk: [place] Fall Risk Score: 85 (High Risk) Precautions/Restrictions: N/A Overall Cognitive Status: Exceptions - Memory: decreased recall of recent events and decreased short term memory - Safety judgement: decreased awareness of need for assistance and decreased awareness of need for safety - Problem solving: assistance required to generate solutions, assistance required to implement solutions, assistance required to identify errors made, and assistance required to correct errors made - Insights: decreased awareness of deficits - Initiation: requires cues for some - Sequencing: requires cues for some Overall Orientation Status: Oriented to Place and Oriented to Person Family/Caregiver Present: daughter Objective Ambulation Ambulation 1 Assistive device(s) used: front wheeled walker Assist level: Min Assist Distance (ft): ~50'x1 Quality of gait: reciprocal stepping, shuffling, postural sway Cues for FWW management and to stay on task. Transfers/Mobility Sit to stand: Min Assist Stand to sit: Min Assist From EOB to FWW x2. Denies dizziness. Device(s) used: front wheeled walker Exercises Exercises Hip Flexion: 1x10 R and L seated marching Knee Long Arc Quad: 1x10 R and L in sitting Ankle Pumps: alternating DF/PF it sitting Bed Mobility Supine to sit: Min Assist Sit to supine: Min Assist Scooting: Min Assist Pt requires cues for sequencing and to stay on task. Use of bedrail for assist. Plan Continue acute PT per plan of care. Safety/Education Safety Safety Devices in place: All fall risk precautions in place, call light within reach, left in bed, bed alarm in place, gait belt, patient at risk for falls, and nurse notified Restraints: N/A Education Education Given To: patient Education Provided: PT Role, PT Goals, Gait Training, Plan of Care, Precautions, Transfer Training, Equipment, and Discharge Recommendations Education Method: Verbal and Demonstration Barriers to Learning: Cognition Education Outcome: Verbalized Understanding and Continued Education Needed Outcome Measures AM-PAC AM-PAC Inpatient Mobility Raw Score (No Stairs) : 15 Goals Patient Stated Goal: Pt did not state. Encounter Problems Encounter Problems (Active) Balance Patient will maintain dynamic standing balance for 5 minutes with CGA in order to demonstrate decreased risk of falling. (Progressing) Start: 12/07/23 Expected End: 12/13/23 Exercise Patient will complete lower extremity exercises for 1-2 sets / 5-10 reps in order to improve strength and activity tolerance for mobility. (Progressing) Start: 12/07/23 Expected End: 12/13/23 Mobility Patient will ambulate 50 feet with CGA and rolling walker in order to improve safety and independence with mobility. (Progressing) Start: 12/07/23 Expected End: 12/13/23 Transfers Patient will perform bed mobility with CGA in order to improve independence and prepare for out of bed mobility. (Progressing) Start: 12/07/23 Expected End: 12/13/23 Patient will complete functional transfer with rolling walker with CGA in order to prepare for ambulation. (Progressing) Start: 12/07/23 Expected End: 12/13/23 Therapy Time Individual Co-treatment Time In 1021 Time Out 1038 Minutes 17 Timed Code Treatment Minutes: 15 Minutes (1 Gt) Marry Mendoza PT Images from the original note were not included. 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 Chart, labs, and vitals reviewed. Daughter present at bedside. Fevers resolved. Daughter states he is still coughing. He is stable on RA. Denies any sob or chest pain. Eyes with no drainage today and conjunctiva clear. Tolerating abx. Afebrile. Objective: Vitals: Patient Vitals for the past 24 hrs: BP Temp Temp src Pulse Resp SpO2 12/10/23 1059 104/65 36.4 C (97.5 F) Temporal 76 16 99 % 12/10/23 0840 -- -- -- 70 16 95 % 12/10/23 0754 159/85 36.1 C (97 F) Temporal 69 20 98 % 12/10/23 0358 149/80 36.1 C (97 F) Temporal 65 16 95 % 12/09/23 2359 152/79 36.2 C (97.2 F) Temporal 73 17 97 % 12/09/23 2243 143/84 -- -- 70 -- 95 % 12/09/232018 -- -- -- 71 16 97 % 12/09/23 1956 (!) 169/92 36.5 C (97.7 F) Temporal 71 17 95 % 12/09/23 1509 146/92 36.5 C (97.7 F) Temporal 71 20 93 % 12/09/23 1158 -- -- -- -- -- 96 % 12/09/23 1123 143/80 36.2 C (97.2 F) Temporal 68 18 96 % Physical Exam Vitals and nursing note reviewed. Constitutional: General: He is not in acute distress. Appearance: Normal appearance. He is ill-appearing. He is not toxic-appearing. Comments: Alert and interactive elderly male sitting up in bed, NAD. HENT: Head: Normocephalic and atraumatic. Nose: Nose normal. Mouth/Throat: Mouth: Mucous membranes are moist. Pharynx: Oropharynx is clear. No oropharyngeal exudate. Eyes: General: No scleral icterus. Right eye: No discharge. Left eye: No discharge. Conjunctiva/sclera: Conjunctivae normal. Cardiovascular: Rate and Rhythm: Normal rate and regular rhythm. Pulmonary: Effort: Pulmonary effort is normal. No respiratory distress. Breath sounds: Normal breath sounds. No wheezing, rhonchi or rales. Comments: Diminished bases; breathing comfortable on RA Abdominal: General: Bowel sounds are normal. There is no distension. Palpations: Abdomen is soft. Tenderness: There is no abdominal tenderness. There is no right CVA tenderness, left CVA tenderness or guarding. Musculoskeletal: General: No swelling or tenderness. Normal range of motion. Cervical back: Neck supple. Right lower leg: No edema. Left lower leg: No edema. Skin: General: Skin is warm and dry. Findings: No erythema or rash. Neurological: General: No focal deficit present. Mental Status: He is alert. Mental status is at baseline. Cranial Nerves: No cranial nerve deficit. Motor: Weakness present. Comments: Baseline dementia Psychiatric: Mood and Affect: Mood normal. Behavior: Behavior normal. Labs: Recent Labs 12/07/23 1227 12/08/23 0323 12/09/23 0407 12/10/23 0348 NA -- 138 141 137 K -- 3.9 3.3* 3.6 CL -- 105 108* 104 CO2 -- 28 26 25 BUN -- 35* 22* 19 CREATININE -- 1.29* 1.01 0.99 GLUCOSE -- 143* 42* 124* CALCIUM -- 9.2 9.1 9.3 PROT -- 6.5 6.4 6.8 BILITOT -- 0.6 0.3 0.2 ALKPHOS -- 92 90 93 AST -- 34 27 24 ALT -- 23 22 24 PROCAL 7.13* -- 3.53* -- Recent Labs 12/08/23 0323 12/09/23 0407 12/10/23 0348 WBC 6.0 4.3 4.3 HGB 11.7* 11.8* 11.8* HCT 35.0* 35.3* 34.7* PLT 146 166 185 Micro: 12/08- MRSA by PCR- negative 12/07- strep pneumo ag- +tive 12/07- legionella ag- negative 12/06- covid/rsv/flu combo- + RSV 12/06- blood cx- 11/23 NGTD Lines: PIV Radiography/Echo/Other: 12/06- CT chest 1. No evidence of large vessel or central pulmonary emboli. 2. Mucous plugging and patchy atelectasis, infiltrates or postinflammatory change in the bilateral lower lobes, right greater than left, of uncertain chronicity. Correlate clinically. 3. Wedge-shaped compression deformities in mid thoracic vertebral bodies may represent insufficiency change, but age-indeterminate. 12/06- CXR Cardiac monitoring wires and leads are present. The trachea is midline. The cardiac silhouette is within normal limits. There is no confluent consolidation. Impression: No radiographic acute cardiopulmonary process. Antimicrobials, Start/End Dates: Vancomycin: 12/06 Pip/tazo: 12/06-12/07 Ceftriaxone: 12/08-present Impression: Bilateral pneumococcal pneumonia Acute RSV infection Fevers- resolved Bilateral conjunctival eye drainage; likely viral Dementia DM Plan: Continue Ceftriaxone Plan for 7 days total through 12/13; can be transitioned to Cefdinir 300 mg bid to complete course at discharge ID service will continue to follow; plan d/w Dr. Favian Conde CNP [facility] - Infectious Diseases 2:27 PM 12/10/2023 Based on diagnoses and management, combination of acute and chronic problems, exacerbations and/or acuity, this visit should be considered to be of moderate complexity. Images from the original note were not included. OCCUPATIONAL THERAPY [facility] Treatment Note Name/MRN: Tita Keith ([id number]) Date of : 1935 Age: 88 y.o. Room/Bed: B2-260/B2-260 A Visit #: 1 out of 7 visits Discharge Recommendation: [facility] Facility Equipment Needed: No Prior Level of Function ADL Assistance: Needs Assist Ambulation Assistance: Needs Assistance Device(s) used: front wheeled walker Transfer Assistance: Needs Assist Assessment Pt responded to session well. Pt completed x1 STS at Mod-Min A with increased time. Pt complete functional mobility, lateral side steps, and toilet transfer at Min A. Pt completed bed mobility at Mod-Min A. Pt requires Max VC for completion of tasks. Pt recommended for SNF at discharge. Pt would benefit from SNF to improve functional indep. Subjective Pt supine in bed, agreeable to OT services. Per RN, pt okay to see. Pt unable to recognize daughter at bedside this date. Pain: Pt denies any current pain. Medical Precautions: Droplet Proper PPE donned/doffed in accordance with facility standards. Fall Risk: [place] Fall Risk Score: 85 (High Risk) Precautions/Restrictions: N/A Family/Caregiver Present: child(natividad) Objective Bed Mobility Supine to sit: Mod Assist Sit to supine: Mod Assist Scooting: Min Assist Pt completed supine/sit and sit/supine at Mod A. Pt required guidance of BLE out/in bed and managing trunk when scooting EOB at Mod A. Pt required posterior assistance for trunk control into bed at Mod A. Pt required use of draw pads to scoot hips towards EOB at Min A. Transfers/Mobility Sit to stand: Mod Assist Stand to sit: Min Assist Toilet: Min Assist Sitting balance: Contact Guard Standing balance: Min Assist Functional mobility: Min Assist Pt completed x1 STS at Mod A with FWW. Pt required assistance with maintaining erect posture when standing at Mod A. Pt able to sit with Min A for guidance of LE and required CGA for sitting balance due to observed posterior lean. Pt completed toilet transfer at Min A with FWW. Pt required Max VC for guidance of FWW and body mechanics at toilet, therapist guiding hips for safe placement at Min A. Pt completed room functional mobility at Min A with FWW. Pt completing lateral steps at EOB at Min A with FWW. Pt required Min A for FWW management Device(s) used: front wheeled walker, hospital bed, and grab bars Cognition - Following commands: follows one step commands with increased time, follows one step commands with repetition, follows multi-step commands with increased time, and follows multi-step commands with repetition - Memory: decreased short term memory and decreased lobsterman memory - Safety judgement: decreased awareness of need for assistance - Sequencing: requires cues for some Exceptions Plan Continue acute OT per plan of care. Safety/Education Safety Safety Devices in place: All fall risk precautions in place, call light within reach, left in bed, bed alarm in place, gait belt, patient at risk for falls, nurse notified, video monitor, and construction materials tester present Restraints: No Education Education Given To: patient and daughter Education Provided: OT Role, Plan of Care, Precautions, Transfer Training, Orientation, Family Education, Equipment, and Fall Prevention Education Education Method: Verbal, Demonstration, and Teach Back Barriers to Learning: Cognition Education Outcome: Verbalized Understanding, Demonstrated Understanding, and Continued Education Needed AM-PAC AM-PAC Inpatient Daily Activity Raw Score: 13 ADL Inpatient CMS G-Code Modifier: CL Goals Patient Stated Goal: Encounter Problems Encounter Problems (Active) Dressing Upper Extremities Patient will complete upper body dressing SBA (Not Addressed) Start: 12/07/23 Expected End: 12/17/23 Dressings Lower Extremities Patient will dress lower body MIN A overall (Not Addressed) Start: 12/07/23 Expected End: 12/17/23 Mobility Patient will demonstrate functional mobility with SBA and FWW (Progressing) Start: 12/07/23 Expected End: 12/17/23 Toileting Patient will complete toileting tasks at standard toilet with SBA. (Progressing) Start: 12/07/23 Expected End: 12/17/23 Transfers Patient will complete functional transfer with rolling walker with SBA in order to prepare for ambulation. (Progressing) Start: 12/07/23 Expected End: 12/17/23 Therapy Time Individual Co-treatment Time In 0914 Time Out 0938 Minutes 24 Timed Code Treatment Minutes: 24 Minutes (2 Ther Act) Branden Mcfarlane I personally guided the care of this patient's treatment with the [employer] TECH[employer]IST student and agree with the above note. Alexus SHEIKH/Brooks Images from the original note were not included. Palliative Care Progress Note Chief Complaint: Tita Keith is a 88 y.o. male with chief complaint of SOB Palliative care consulted for goals of care Palliative Care is actively following. Assessment/Plan Goals of care - met with patient this morning , patient was awake, oriented x 0 - patient at this time does not have medical decision making capacity - met with daughter/HCPOA Kayleighchamp Scott,at bedside - Kayleigh's goal for patient is for patient to go back to [facility] for SNF - Code status at this time remains DNRCCA - will continue to have ongoing goals of care discussions with Kayleigh Altered mental status - likely due to delirium on top of Dementia, RSV infection - patient was awake when seen today, oriented X 0 - continue to monitor RSV/PNA - patient on isolation, empiric antibiotics, IVF started Bilateral pneumococcal pneumonia - on rocephin, per ID continue thru 12/13 Skin cancer - per daughter revoked hospice recently to get surgery for skin cancer Severe PCM - patient is hospice appropriate Palliative Care Encounter - will continue to follow for ongoing monitoring of progression of Dyspnea and Pain as well as for appropriateness for hospice care due to Protein Calorie Malnutrition - will continue to evaluate test results related to Protein Calorie Malnutrition, medication effectiveness for Dyspnea, Pain, and Constipation, response to treatment of Protein Calorie Malnutrition - obtaining testing as needed to monitor medication results:N/A Total of 55 minutes spent on this encounter including Chart review, Patient visit and exam, Documentation in EHR, Care coordination, and Communicating with primary attending or other consultants. Discharge planning: Not ready for discharge due to ongoing goals of care discussion Patient meets criteria for general inpatient hospice care including the following: N/A - Palliative Care Patient Referrals to: None Discussed patient and the plan of care with the other interdisciplinary team (IDT) members of Palliative Care Team, and with Family Insert attestation statement here if applicable (.disupervision) or (.npattest) Subjective: Subjective/Events Tita Keith is a 88 y.o. male admitted to [facility] on 12/06/23 for altered mental status. Patient seen and examined this morning. Daughter Kayleigh at bedside. Per Kayleigh patient's mental status continues to improve. Stated he does have a monitor in the room. Patient Goals of care:Continue Current Management Advance Directives: DNR-CCA Surrogate: Child and HCPOA Prognosis: depends upon goals Spiritual assessment: No spiritual distress identified Bereavement and grief: Grief Issues Not Identified Review of Systems ROS: See palliative care ROS/ESAS below; Detail ROS unable to be obtained due to patient's mental status [place] Symptom Assessment Score [place] Score Pain Score 0 Tiredness Score 8 Nausea Score 0 Depression Score 0 Anxiety Score 0 Drowsiness Score 8 Anorexia Score (0= eating well, 10= not eating) 6 Wellbeing Score (10= worst sense of well-being) 6 Constipation 0 Dyspnea Score (0= no shortness of breath) 0 FLACC Scale (For Pain Assessment of the Non-Verbal Patient) - Patient verbal but confused Assessed by: provider. Social history: status: no Marital status: single Living status: snf Work history: retired Family Meeting: (if discussing Advanced Care Planning, include .PALLACP) Participants: child Family meeting was held to discuss:Diagnosis and Prognosis, Goals of Care, Treatment Options, Symptom Management, Advanced Care Planning, and Prior Expressed Wishes Objective: Physical Exam BP 159/85 Pulse 70 Temp 36.1 C (97 F) (Temporal) Resp 16 Ht 6' 2" (1.88 m) Wt 123 lb (55.8 kg) SpO2 95% BMI 15.79 kg/m HENT: Head: Atraumatic. Nose: Nose normal. Mouth/Throat: Mouth: Mucous membranes are moist. Eyes: General: No scleral icterus. Pupils: Pupils are equal, round, and reactive to light. Cardiovascular: Rate and Rhythm: Normal rate and regular rhythm. Pulses: Normal pulses. Heart sounds: Normal heart sounds. No murmur heard. Pulmonary: Effort: Pulmonary effort is normal. Breath sounds: Normal breath sounds. No stridor. No wheezing or rhonchi. Abdominal: General: Bowel sounds are normal. Palpations: Abdomen is soft. Musculoskeletal: General: No swelling. Cervical back: Neck supple. Right lower leg: No edema. Left lower leg: No edema. Skin: General: Skin is warm. Coloration: Skin is not jaundiced. Neurological: Comments: Awake, alert, oriented X 0 Psychiatric: Comments: No agitation Current Medications: Inpatient medications reviewed: yes Home medications reviewed: yes OARRS Reviewed: Yes-Yes-11/06/23 Lorazepam 0.5 # 4 24 Hour PRN Meds: no PRN medications in 24 hours Results/Verification of Data Review Objective data reviewed (be specific which labs, imaging reports with dates reviewed): - labs, imaging, MAR reviewed 12/10/23 Data in Support of Terminal Illness: Is patient hospice appropriate? TBD Taking several bites of meal, then states he is full. Attempting to get OOB, states, "trying to find his gun." Call light handed to pt, pt states, "thank you for finding it." When asked why he needed a gun, pt states, "so if somebody comes in my house, I will shoot them." Assured he was safe, will cont to monitor. Appears to be sleeping, rouses with verbal stimuli. Refusing meal at present. Back to sleep after repositioning. Images from the original note were not included. Hospitalist Progress Note 12/09/2023 [phone]: Please secure chat me for patient care issues. [phone]: Please secure chat [facility] Hospitalist for any issues. Subjective: Admit Date: 12/06/2023 PCP: Marj Plasencia Room#: [id number] A Brief History: Patient is 88-year-old gentleman with dementia admitted for shortness of breath and fever, CT chest showed mucous plugging and multiple infiltrates atelectasis versus pneumonia, respiratory panel positive for strep pneumo and RSV, on Augmentin and droplet isolation Chief Complaint : Breathing better today appears better but looks weak Interval History: breathing improved, feels weak Adult diet Dysphagia - Minced and Moist; 5 carb choices (75 gm/meal); No Drinking Straws @[id number]@ 24HR INTAKE/OUTPUT: Intake/Output Summary (Last 24 hours) at 12/09/2023 1011 Last data filed at 12/08/2023 1846 Gross per 24 hour Intake 2050 ml Output -- Net 0 ml Past Medical History: Past Medical History: Diagnosis Date Dementia (HCC) Diabetes mellitus (HCC) Hyperlipidemia Hypertension LABS: CBC: Recent Labs 12/06/23162012/08/2332212/09/23 0407 WBC 8.4 6.0 4.3 RBC 4.11* 3.89* 3.97* HGB 12.6* 11.7* 11.8* HCT 36.4* 35.0* 35.3* MCV 88.5 90.0 89.0 RDW 14.0 13.9 13.9 PLT 144 146 166 BMP: Recent Labs 12/06/23162012/08/2332212/09/23 0407 NA 136 138 141 K 4.5 3.9 3.3* CL 101 105 108* CO2 25 28 26 BUN 47* 35* 22* CREATININE 1.35* 1.29* 1.01 GLUCOSE 200* 143* 42* CALCIUM 9.4 9.2 9.1 ANIONGAP 10 4 8 LIVER PROFILE: Recent Labs 12/06/23162012/08/2332212/09/23 0407 AST 29 34 27 ALT 28 23 22 BILITOT 0.7 0.6 0.3 ALKPHOS 99 92 90 PROT 7.1 6.5 6.4 PT/INR: No results for input(s): "PROTIME", "INR" in the last 72 hours. CARDIAC ENZYMES: Recent Labs 12/06/23162012/06/23202312/07/23 0104 TROPONINI 0.031 0.080* 0.070* Procalcitonin: Lab Results Component Value Date PROCAL 7.13 (H) 12/07/2023 COVID-19 PCR: No results for input(s): "COVID19" in the last 72 hours. Objective: Vitals: BP 136/78 (BP Location: Left arm, Patient Position: Lying) Pulse 83 Temp 36.3 C (97.3 F) (Temporal) Resp 20 Ht 6' 2" (1.88 m) Wt 123 lb (55.8 kg) SpO2 93% BMI 15.79 kg/m Pulse Ox: SpO2 Av.7 % Min: 91 % Max: 98 % Physical Exam Constitutional: Appearance: He is ill-appearing. Cardiovascular: Rate and Rhythm: Normal rate and regular rhythm. Pulses: Normal pulses. Heart sounds: Normal heart sounds, S1 normal and S2 normal. Pulmonary: Diminished air entry throughout, normal respiratory effort Abdominal: General: Bowel sounds are normal. Palpations: Abdomen is soft. Musculoskeletal: Right lower le+ Pitting Edema present. Left lower le+ Pitting Edema present. Skin: Comments: Chronic skin changes of the legs Neurological: Comments: Underlying baseline dementia Medications: cefTRIAXone, 1,000 mg, IntraVENous, q24h docusate sodium, 100 mg, Oral, BID enoxaparin, 30 mg, SubCUTAneous, Daily insulin glargine, 14 Units, SubCUTAneous, Nightly insulin lispro, 0-12 Units, SubCUTAneous, TID WC And insulin lispro, 0-12 Units, SubCUTAneous, Nightly insulin lispro, 5 Units, SubCUTAneous, Once ipratropium-albuterol, 3 mL, Nebulization, TID lisinopril, 20 mg, Oral, Daily Melatonin, 5 mg, Oral, Nightly mirtazapine, 15 mg, Oral, Nightly QUEtiapine, 12.5 mg, Oral, BID sodium chloride 0.9%, 10 mL, IntraVENous, 2 times per day tamsulosin, 0.8 mg, Oral, Nightly Assessment Acute Problems : Community-acquired pneumonia due to RSV and Streptococcus pneumonia Simple sepsis due to above Acute hypoxia with respiratory insufficiency Mild elevated troponin due to demand ischemia Type 2 diabetes mellitus with hyperglycemia Alzheimer's dementia with behavioral disturbance Severe malnutrition Stable chronic problems affecting care, new non-acute diagnoses: Past Medical History: Diagnosis Date Dementia (HCC) Diabetes mellitus (HCC) Hyperlipidemia Hypertension Medical Decision Making 12/08 -says he feels better today, O2 sats maintaining well on room air, appears weak, daughter at bedside, PT and OT assessments, encourage oral intake, protein supplements, DC'd IV fluids DuoNebs 3 times a day, O2 supplementation, on ceftraixone switched from Zosyn and vancomycin, PCR panel positive for strep pneumo and RSV Procalcitonin high 12/09 -has dementia, feels breathing is better, continue current antibiotics and DuoNebs maintaining good O2 saturations PT and OT assessments -am labs, replace lytes prn -increase activity -DVT prophylaxis: [x] Lovenox [] Heparin [] SCDs [x] Encourage ambulation [] Already on Anticoagulation Anticipated Discharge - Date -December 10 - Location -retirement facility - Pending the following -clinical improvement and bed availability Total time spent (which include face to face and non face to face encounters) : 36 minutes Toxic drug monitoring/narrow therapeutic index drug monitoring : # Drug name : enoxaparin # Route administered : SC # Method of monitoring : CBC Extended Emergency Contact Information Primary Emergency Contact: Kayleigh Scott Mobile Relation: Child Secondary Emergency Contact: Mike Keith Mobile Relation: Child RAI RAY MD, MD Division of Hospitalist Medicine [facility] PAGER: Epic chat Repositioned with skin care. Pt attempting to get OOB, Remains pleasantly confused, nonredirectable at times. Refusing breakfast but taking sips fluids. Will continue to monitor. Images from the original note were not included. Hospitalist Progress Note 12/08/2023 [phone]: Please secure chat me for patient care issues. [phone]: Please secure chat [facility] Hospitalist for any issues. Subjective: Admit Date: 12/06/2023 PCP: Marj Plasencia Room#: [id number] A Brief History: Patient is 88-year-old gentleman with dementia admitted for shortness of breath and fever, CT chest showed mucous plugging and multiple infiltrates atelectasis versus pneumonia, respiratory panel positive for strep pneumo and RSV, on Augmentin and droplet isolation Chief Complaint : Breathing better today appears better but looks weak Interval History: No overnight issues. Denies chest pain, abdominal pain, nausea, vomiting, diarrhea, constipation, fevers, or chills. Adult diet Dysphagia - Minced and Moist; 5 carb choices (75 gm/meal); No Drinking Straws @[id number]@ 24HR INTAKE/OUTPUT: Intake/Output Summary (Last 24 hours) at 12/08/2023 1339 Last data filed at 12/08/2023 0505 Gross per 24 hour Intake -- Output 460 ml Net -460 ml Past Medical History: Past Medical History: Diagnosis Date Dementia (HCC) Diabetes mellitus (HCC) Hyperlipidemia Hypertension LABS: CBC: Recent Labs 12/06/23162012/08/23 0323 WBC 8.4 6.0 RBC 4.11* 3.89* HGB 12.6* 11.7* HCT 36.4* 35.0* MCV 88.5 90.0 RDW 14.0 13.9 PLT 144 146 BMP: Recent Labs 12/06/23162012/08/23 0323 NA 136 138 K 4.5 3.9 CL 101 105 CO2 25 28 BUN 47* 35* CREATININE 1.35* 1.29* GLUCOSE 200* 143* CALCIUM 9.4 9.2 ANIONGAP 10 4 LIVER PROFILE: Recent Labs 12/06/23162012/08/23 0323 AST 29 34 ALT 28 23 BILITOT 0.7 0.6 ALKPHOS 99 92 PROT 7.1 6.5 PT/INR: No results for input(s): "PROTIME", "INR" in the last 72 hours. CARDIAC ENZYMES: Recent Labs 12/06/23162012/06/23202312/07/23 0104 TROPONINI 0.031 0.080* 0.070* Procalcitonin: Lab Results Component Value Date PROCAL 7.13 (H) 12/07/2023 COVID-19 PCR: No results for input(s): "COVID19" in the last 72 hours. Objective: Vitals: BP 153/93 (BP Location: Left arm, Patient Position: Lying) Pulse 68 Temp 36.2 C (97.2 F) (Temporal) Resp 16 Ht 6' 2" (1.88 m) Wt 123 lb (55.8 kg) SpO2 96% BMI 15.79 kg/m Pulse Ox: SpO2 Av.9 % Min: 94 % Max: 100 % Physical Exam Constitutional: Appearance: He is ill-appearing. Cardiovascular: Rate and Rhythm: Normal rate and regular rhythm. Pulses: Normal pulses. Heart sounds: Normal heart sounds, S1 normal and S2 normal. Pulmonary: Effort: Tachypnea present. Breath sounds: Decreased air movement (anteriorly) present. Abdominal: General: Bowel sounds are normal. Palpations: Abdomen is soft. Musculoskeletal: Right lower le+ Pitting Edema present. Left lower le+ Pitting Edema present. Skin: Comments: Chronic skin changes of the legs Neurological: Comments: Underlying baseline dementia Medications: amoxicillin-clavulanate, 875 mg, Oral, 2 times per day docusate sodium, 100 mg, Oral, BID enoxaparin, 30 mg, SubCUTAneous, Daily insulin glargine, 14 Units, SubCUTAneous, Nightly insulin lispro, 0-12 Units, SubCUTAneous, TID WC And insulin lispro, 0-12 Units, SubCUTAneous, Nightly ipratropium-albuterol, 3 mL, Nebulization, TID lisinopril, 20 mg, Oral, Daily Melatonin, 5 mg, Oral, Nightly mirtazapine, 15 mg, Oral, Nightly QUEtiapine, 12.5 mg, Oral, BID sodium chloride 0.9%, 10 mL, IntraVENous, 2 times per day tamsulosin, 0.8 mg, Oral, Nightly Assessment Acute Problems : Community-acquired pneumonia due to RSV and Streptococcus pneumonia Simple sepsis due to above Acute hypoxia with respiratory insufficiency Mild elevated troponin due to demand ischemia Type 2 diabetes mellitus with hyperglycemia Alzheimer's dementia with behavioral disturbance Severe malnutrition Stable chronic problems affecting care, new non-acute diagnoses: Past Medical History: Diagnosis Date Dementia (HCC) Diabetes mellitus (HCC) Hyperlipidemia Hypertension Medical Decision Making 12/08 -says he feels better today, O2 sats maintaining well on room air, appears weak, daughter at bedside, PT and OT assessments, encourage oral intake, protein supplements, DC'd IV fluids DuoNebs 3 times a day, O2 supplementation, on ceftraixone switched from Zosyn and vancomycin, PCR panel positive for strep pneumo and RSV Procalcitonin high -am labs, replace lytes prn -increase activity -DVT prophylaxis: [] Lovenox [] Heparin [] SCDs [x] Encourage ambulation [] Already on Anticoagulation Anticipated Discharge - Date -December 09 or - Location -retirement facility - Pending the following -PT and OT assessments, bed availability and insurance approval Total time spent (which include face to face and non face to face encounters) : 36 minutes Toxic drug monitoring/narrow therapeutic index drug monitoring : # Drug name : # Route administered : # Method of monitoring : Extended Emergency Contact Information Primary Emergency Contact: Kayleigh Scott Mobile Relation: Child Secondary Emergency Contact: Mike Keith Mobile Relation: Child RAI RAY MD, MD Division of Hospitalist Medicine [facility] PAGER: Epic chat [facility] Respiratory Care Department Progress Note As part of the Respiratory Assessment Program (RAP), the following Respiratory Therapist evaluation has been completed, including a chart review and clinical/physical assessment. Respiratory Therapist RAP Evaluation Guideline Points 0 1 2 3 4 Points Strongly Consider History Factor No Pulmonary conditions Stable Pulmonary condition(s) Surgery or Intervention that may impact Pulmonary system (at risk) Surgery or Intervention that is impacting Pulmonary system Active Exacerbation of Pulmonary Condition 0 Respiratory Pattern Regular, RR= 12-18 [place] or Increased RR= 19-24 Irregular, or RR= 25-30 SOB, talk in short sentences, or RR= 31-35 Severe SOB, accessory muscle use, one word answers, or RR>35 0 Aerosol Med(s), High Flow O2 Breath Sounds Clear Diminished in 1 lobe Diminished in ? 2 lobes Adventitious breath sounds Coarse crackles, Wheezes, or Diminished in >2 lobes 2 Aerosol Med(s), Bronchial Hygiene, Hyperinflation Cough & Sputum Strong cough, no secretion retention or production Weak cough, no secretion retention or production Weak cough, w/ production (less often than Q2hr), or secretion retention No cough, w/ secretion retention or production (less often than Q2hr) Significant secretion production (more often than Q2hr) or mucus plug 1 Aerosol Med(s), Bronchial Hygiene, Hyperinflation Level of Activity Ambulatory Ambulatory with Assist Up in chair or edge of bed (dangle) Non-ambulatory, bedridden with active ROM Completely paralyzed or without active ROM 2 Triage 5 0-2 Triage 4 3-5 Triage 3 6-10 Triage 2 11-14 Triage 1 ?15 Total 5 Triage Score = 3 TRIAGE SCORING - SUGGESTED FREQUENCIES Aerosol Therapy Bronchial Hygiene Hyperinflation Triage Score Q4h & PRN 1 Q4hWA (QID) & PRN 2 TID & PRN 3 BID & PRN 4 PRN 5 Therapy(s) Indicated Yes/No Aerosol Medication yes Hyperinflation no Bronchial Hygiene no High Flow Oxygen no Patient instructed and returned demonstration on use of MDI (with spacer, as appropriate) None RT to enter/modify frequency of treatment order in EMR/EHR to match this RAP evaluation. Based on this RAP evaluation the following therapy is being initiated: Duoneb At the following frequency: TID and PRN Comments: Patient states no SOB Thank you for involving Respiratory in the care of this patient, Pharmacy Vancomycin Consult Follow-Up Note Non-[employer] Patients Current Dosing: Vanc 750mg every 24 hours CREATININE Date Value Ref Range Status 12/08/2023 1.29 (H) 0.66 - 1.25 mg/dL Final 03/03/2022 1.12 0.52 - 1.25 mg/dL Final UREA NITROGEN Date Value Ref Range Status 12/08/2023 35 (H) 9 - 20 mg/dL Final Auto WBC Date Value Ref Range Status 12/08/2023 6.0 3.6 - 10.7 10*3/uL Final Ht Readings from Last 1 Encounters: 12/07/23 1.88 m (6' 2") Wt Readings from Last 1 Encounters: 12/06/23 55.8 kg (123 lb) Body mass index is Body mass index is 15.79 kg/m . Random: 11.3 mcg/ml drawn correctly at 0300 Calculated AUC: 420 mg/L.hr Assessment/Plan: Calculated AUC is therapeutic at 420 mg/L.hr. Will keep current dosing and continue to follow. Patient arrived to floor, this nurse pulled patient to new bed. This is a confused patient. New bed was ordered and visual monitor ordered. Patients vitals taken , patient resting comfortably. Nutrition Assessment Type and Reason for Visit: Initial, Consult (poor PO) Nutrition Recommendations/Plan: Modify diet to Adult diet Dysphagia - Minced and Moist; 5 carb choices (75 gm/meal); No Drinking Straws per MNT protocol. Monitor need for CLAIMS PROCESSOR consult. Initiate Ensure high protein TID per MNT protocol. Ensure High Protein provides 160 kcals, 16 g protein per serving. Prefers chocolate flavor. Please document pt's PO intakes via flowsheet to accurately assess PO intake adequacy. Monitor intakes, weights, and labs weekly. RD will follow. Malnutrition Assessment: Malnutrition Status: Severe malnutrition Context: Chronic Illness Findings of the 6 clinical characteristics of malnutrition: Energy Intake: 75% or less estimated energy requirements for 1 month or longer Weight Loss: Unable to assess Body Fat Loss: Severe body fat loss Orbital, Triceps, Buccal region Muscle Mass Loss: Severe muscle mass loss Temples (temporalis), Clavicles (pectoralis & deltoids), Calf (gastrocnemius), Hand (interosseous) Fluid Accumulation: Mild Extremities Machine Attendant Strength: Not Performed Nutrition Assessment: Pt was admitted from facility with Shortness of breath and fever here with RSV. Pt appeared weak and sleepy during RD visit today. Pt ate about 26-50% of his lunch tray this afternoon. Pt unable to provide much history this date. RD weighed via bed scale at 146.9#, however the ED bed scale was not zeroed prior to weighing. 12/06 wt-123#. Previous weights at the facility 127-128#. Estimated Daily Nutrient Needs: Energy Requirements Based On: Kcal/kg Weight Used for Energy Requirements: Current Weight for Energy Calculation (kg): 56 kg Total Energy Requirements (kcals/day): 7265-0168 kcals (30-35 kcals/kg) Weight Used for Protein Requirements: Current Weight in Kg Used for Protein Requirements: 56 kg Estimated Total Protein (g/day): 67-84 (1.2-1.5g/kg) Estimated Daily Total Fluid (ml/day): 1700 ml/day or per MD Nutrition Related Findings: non pitting generalized edema; moderate RUE edema; BUN 47, Cr 1.35, GFR 50.5, glucose 158, 108, 236, Troponin 0.070, NaCl-75 ml/hr Wound Type: Skin Tears (upper face) Current Nutrition Therapies: Adult diet Dysphagia - Minced and Moist; 5 carb choices (75 gm/meal); No Drinking Straws Current Oral Intake Average Meal Intake: 26-50% Average Supplements Intake: None Ordered Anthropometric Measures: Height: 188 cm (6' 2") Current Body Weight: 55.8 kg (123 lb) Weight Source: Not Specified Admission Body Weight: 55.8 kg (123 lb) (stated) Usual Body Weight: 57.6 kg (127 lb) (127-128# at facility) % Weight Change (Calculated): -3.1 [place] Body Weight (lbs) (Calculated): 190 lbs [place] Body Weight (Kg) (Calculated): 86 kg % [place] Body Weight (Calculated): 64.7 % BMI (kg/m2) (Calculated): 15.8 Weight Adjustment For: No Adjustment BMI Categories: Underweight (BMI less than 22) age over 65 Nutrition Diagnosis: Severe malnutrition related to inadequate protein-energy intake, cognitive or neurological impairment as evidenced by poor intake prior to admission, severe loss of subcutaneous fat, severe muscle loss, localized or generalized fluid accumulation Increased nutrient needs related to increase demand for energy/nutrients, impaired respiratory function as evidenced by BMI, other (comment) (estimated anabolic needs) Nutrition Interventions: Nutrition Education/Counseling: No recommendation at this time Coordination of Nutrition Care: Continue to monitor while inpatient Plan of Care discussed with: Patient Goals: Goals: PO intake 75% or greater, by next RD assessment Nutrition Monitoring and Evaluation: Behavioral-Environmental Outcomes: None Identified Food/Nutrient Intake Outcomes: Diet Advancement/Tolerance, Food and Nutrient Intake, Supplement Intake Physical Signs/Symptoms Outcomes: Biochemical Data, Chewing or Swallowing, GI Status, Fluid Status or Edema, Nutrition Focused Physical Findings, Skin, Weight Discharge Planning: Continue Oral Nutrition Supplement Dian Tipton RD Contact: *[phone] or via Secure Chat Images from the original note were not included. PHYSICAL THERAPY [facility] Initial Evaluation Name/MRN: Tita Keith ([id number]) Evaluation Date: 12/07/2023 Date of : 1935 Admission Date: 12/06/2023 3:50 PM Age: 88 y.o. Room/Bed: Discharge Recommendation: [facility] Equipment Needed: No Assessment IMPRESSION: Pt admitted 12/06 with SOB, fever and PNA. Pt also found to have sepsis and RSV. Pt presents with the below deficits limiting his functional independence. On evaluation patient requires ModA for bed mobility, mod-Jorge for transfers and CGA-Jorge for standing balance. Pt is limited by fatigue and demos poor safety awareness with cues for all sequencing and initiation. Per family patient recently revoked hospice to have a surgical procedure and was receiving PT/OT at SNF. Pt should continue to benefit from skilled PT to increase functional independence and safety. Rec return to SNF with PT. Prognosis: good Performance Deficits /Impairments: Decreased Functional Mobility, Decreased ADL status, Decreased ROM, Decreased Strength, Decreased Safety Awareness, Decreased Cognition, Decreased Endurance, Decreased Balance, and Decreased Posture Decision Making: Medium Complexity Subjective Pt lying in bed and agreeable to therapy. Daughter in room at bedside and assisting with questions. Pain: Pt denies any current pain. Past Medical History: Past Medical History: Diagnosis Date Dementia ([facility]) Diabetes mellitus ([facility]) Hyperlipidemia Hypertension Past Surgical History: Past Surgical History: Procedure Laterality Date BACK SURGERY Admission Diagnosis: Patient Active Problem List Diagnosis Date Noted Pneumonia due to infectious organism, unspecified laterality, unspecified part of lung 12/06/2023 Dementia without behavioral disturbance ([facility]) 09/17/2023 COVID-19 09/10/2023 Severe malnutrition ([facility]) ([facility]) 01/20/2023 Hyperglycemia 01/19/2023 Hyperosmolar hyperglycemic state (HHS) ([facility]) 01/17/2023 New onset type 2 diabetes mellitus ([facility]/HCC) ([facility]) 03/01/2022 Medical Precautions: Droplet Proper PPE donned/doffed in accordance with facility standards. Fall Risk: [place] Fall Risk Score: 80 (High Risk) Precautions/Restrictions: N/A Family/Caregiver Present: daughter Overall Cognitive Status: Exceptions - Arousal/alertness: appropriate responses to stimuli - Following commands: follows one step commands with increased time and follows one step commands with repetition - Attention span: attends with cues to redirect - Memory: decreased recall of recent events and decreased short term memory - Safety judgement: decreased awareness of need for assistance and decreased awareness of need for safety - Problem solving: assistance required to generate solutions, assistance required to implement solutions, assistance required to identify errors made, assistance required to correct errors made, and decreased awareness of errors - Insights: decreased awareness of deficits - Initiation: requires cues for all - Sequencing: requires cues for all Overall Orientation Status: Oriented to Person Vision: no visual deficits Hearing: normal Social/Functional History Pt admitted from SNF and per family was receiving PT/OT recently. Pt ambulates with use of FWW and assist x1 at SNF. Pt recently getting bedbaths due to inability to sit in shower. Prior Level of Function ADL Assistance: Needs Assist Ambulation Assistance: Needs Assistance Device(s) used: front wheeled walker Transfer Assistance: Needs Assist Objective Lower Extremity Assessment AROM: WFL PROM: WFL Strength: WFL demos at least 3/5 with mobility Bed Mobility: Supine to sit: Mod Assist Sit to supine: Mod Assist Scooting: Mod Assist ModA for Les and trunk management and increased time to complete. Denies dizziness with change in position. Transfers Sit to stand: Min Assist, Mod Assist Stand to sit: Min Assist, Mod Assist Pt completed 4 stand with modA initially and progressed to Jorge within session. Requires cues for initiation each time and demos good static standing balance with CGA and Jorge for dynamic standing balance. Denies dizziness. Ambulation Did not assess this session. Outcome Measures AM-PAC How much HELP from another person do you currently need Turning from your back to your side while in a flat bed without using bedrails?: A Lot Moving from lying on your back to sitting on the side of a flat bed without using bedrails?: A Lot Moving to and from a bed to a chair (including a wheelchair)?: A Lot Standing up from a chair using your arms (wheelchair or bedside chair)?: A Lot Walking in a hospital room?: A Lot Stair climbing assessed?: No AM-PAC Inpatient Mobility Raw Score (No Stairs) : 10 Plan Pt would benefit from skilled acute PT services to address Strengthening, ROM, Balance Training, Functional Mobility Training, Endurance Training, Gait Training, Pain Management, Safety Education and Training, Patient/Caregiver Training, Equipment Evaluation/Education, and Positioning. Frequency: 5 visits Barriers: Confusion and Decreased endurance Safety/Education Safety Safety Devices in place: All fall risk precautions in place, call light within reach, left in bed, gait belt, patient at risk for falls, and nurse notified Restraints: N/A Education Education Given To: patient and daughter Education Provided: PT Role, PT Goals, Plan of Care, Precautions, Transfer Training, Equipment, and Discharge Recommendations Education Method: Verbal and Demonstration Barriers to Learning: Cognition Education Outcome: Continued Education Needed Goals Patient Stated Goal: Pt did not state. Encounter Problems Encounter Problems (Active) Balance Patient will maintain dynamic standing balance for 5 minutes with CGA in order to demonstrate decreased risk of falling. Start: 12/07/23 Expected End: 12/13/23 Exercise Patient will complete lower extremity exercises for 1-2 sets / 5-10 reps in order to improve strength and activity tolerance for mobility. Start: 12/07/23 Expected End: 12/13/23 Mobility Patient will ambulate 50 feet with CGA and rolling walker in order to improve safety and independence with mobility. Start: 12/07/23 Expected End: 12/13/23 Transfers Patient will perform bed mobility with CGA in order to improve independence and prepare for out of bed mobility. Start: 12/07/23 Expected End: 12/13/23 Patient will complete functional transfer with rolling walker with CGA in order to prepare for ambulation. Start: 12/07/23 Expected End: 12/13/23 Therapy Time Individual Co-treatment Time In 0837 Time Out 0905 Minutes 28 Timed Code Treatment Minutes: 10 Minutes (1 TA) Marry Mendoza PT Patient's Physical Therapy Plan of Care supervision is transferred to a [facility] Therapy Services Physical Therapist. Goals and/or treatment plan was established in collaboration with patient/family/other representatives. Images from the original note were not included. OCCUPATIONAL THERAPY [facility] Initial Evaluation Name/MRN: Tita Keith ([id number]) Evaluation Date: 12/07/2023 Date of : 1935 Admission Date: 12/06/2023 3:50 PM Age: 88 y.o. Room/Bed: Discharge Recommendation: [facility] Facility Equipment Needed: No (TBD at next level of care) Assessment IMPRESSION: Pt in 12/06 with pneumonia, SOB, and fever. He was previously requiring assist for ADLs, IADLs, and transfers / mobility with a FWW. He is currently MAX A for LB ADLs, MOD A for UB ADLs, and MOD - MIN A for transfers with a FWW. He is limited by diminished cognition and increased fatigue this date. He requires increased cueing for safety this date. He would benefit from skilled OT Services to address the below. Recommend planned discharge for return to facility with OT services. Performance Deficits /Impairments: Decreased Functional Mobility, Decreased ADL status, Decreased Strength, Decreased Cognition, Decreased Endurance, and Decreased Balance Prognosis: Good Decision Making: Medium Complexity Subjective Pleasant and cooperative. OK to see per RN. ED tele intact and in place. Pain: Pt denies any current pain. Past Medical History: Past Medical History: Diagnosis Date Dementia ([facility]) Diabetes mellitus ([facility]) Hyperlipidemia Hypertension Past Surgical History: Past Surgical History: Procedure Laterality Date BACK SURGERY Admission Diagnosis: Patient Active Problem List Diagnosis Date Noted Pneumonia due to infectious organism, unspecified laterality, unspecified part of lung 12/06/2023 Dementia without behavioral disturbance ([facility]) 09/17/2023 COVID-19 09/10/2023 Severe malnutrition ([facility]) ([facility]) 01/20/2023 Hyperglycemia 01/19/2023 Hyperosmolar hyperglycemic state (HHS) ([facility]) 01/17/2023 New onset type 2 diabetes mellitus ([facility]) ([facility]) 03/01/2022 Medical Precautions: Droplet Proper PPE donned/doffed in accordance with facility standards. Fall Risk: [place] Fall Risk Score: 80 (High Risk) Precautions/Restrictions: N/A Family/Caregiver Present: family Overall Cognitive Status: Exceptions - Following commands: follows one step commands with increased time and follows one step commands with repetition - Attention span: attends with cues to redirect - Memory: decreased recall of recent events and decreased short term memory - Safety judgement: decreased awareness of need for assistance and decreased awareness of need for safety - Problem solving: assistance required to generate solutions, assistance required to implement solutions, assistance required to identify errors made, assistance required to correct errors made, and decreased awareness of errors - Insights: decreased awareness of deficits - Initiation: requires cues for some - Sequencing: requires cues for some Overall Orientation Status: Oriented to Person Social/Functional History Patient admitted from SNF. Assistive Equipment: front wheeled walker Prior Level of Function ADL Assistance: Needs Assist Ambulation Assistance: Needs Assistance Device(s) used: front wheeled walker Transfer Assistance: Needs Assist Objective ADLs LE Dressing: Max Assist Toileting: Max Assist Pt requries increased assist this date for completion of all functional tasks. He requires increased cueing for problem solving, sequencing, and initiation at this time. No true lOB noted during standing tasks. He required increased assist to thread clean briefs over BLE this date and to manage up over hips in standing posteriorly. He required increased assist to complete pericare this date in standing with increased reliance on FWW in standing for stability. Based on observed functional ability, anticipate that he would require MAX A for LB ADLs and MOD A for UB ADLs. Upper Extremity Assessment AROM: Exceptions: ~ 90 BUE shoulder flexion functionally observed PROM: Not assessed this session Strength: Exceptions: > +3/5 grossly observed with functional activity BUE. Vision: not assessed this session Hearing: normal Bed Mobility Supine to sit: Mod Assist Sit to supine: Mod Assist Scooting: Min Assist HOB elevated, increased time required to complete. Denies dizziness with positional changes. Repetitive cueing required for for positional changes and for BLE management/ trunk control. Pt demos diminished sequencing at this time. He required MOD A overall to manage trunk to EOB with increased time for BLE management. Transfers/Functional Mobility Sit to stand: Min Assist, Mod Assist Stand to sit: Min Assist, Mod Assist Sitting balance: Contact Guard Standing balance: Min Assist Pt completed sit<>stand from EOB to FWW x2 this date with MOD A progressing to MIN A on second attempt. Cueing required for proper hand placement for push up into standing / reach back during controlled descent. Pt demos no true LOB and denies dizziness with positional changes. MOD - MIN A for lift into standing at this time. Pt tolerates standing at EOB with CGA - MIN A fluctuating with noted posterior lean during standing. Cueing for posture correction with good follow through. Device(s) used: front wheeled walker AM-PAC AM-PAC Inpatient Daily Activity Raw Score: 13 ADL Inpatient CMS G-Code Modifier: CL Plan Pt would benefit from skilled acute OT services to address Strengthening, Balance Training, Functional Mobility Training, Endurance Training, Cognitive Reorientation, Safety Education and Training, Patient/Caregiver Training, Equipment Evaluation/Education, Self-Care/ADL Training, and Cognitive/Perceptual Training. Frequency: 7 visits during current hospital admission or until additional recommendations are made Barriers: Confusion, Cognitive deficit, Decreased endurance, Upper extremity weakness, and Lower extremity weakness Prognosis: good Safety/Education Safety Safety Devices in place: All fall risk precautions in place, call light within reach, left in bed, gait belt, patient at risk for falls, nurse notified, and no alarms engaged upon entry Restraints: No Education Education Given To: patient and family Education Provided: OT Role, Plan of Care, Precautions, ADL Adaptive Strategies, Transfer Training, Equipment, Fall Prevention Education, Discharge Recommendations, and Benefits of Increasing Activity Education Method: Verbal, Demonstration, and Teach Back Barriers to Learning: Cognition Education Outcome: Verbalized Understanding, Demonstrated Understanding, and Continued Education Needed Goals Patient Stated Goal: Patient unable to participate in goal setting at this time. Encounter Problems Encounter Problems (Active) Dressing Upper Extremities Patient will complete upper body dressing SBA Start: 12/07/23 Expected End: 12/17/23 Dressings Lower Extremities Patient will dress lower body MIN A overall Start: 12/07/23 Expected End: 12/17/23 Mobility Patient will demonstrate functional mobility with SBA and FWW Start: 12/07/23 Expected End: 12/17/23 Toileting Patient will complete toileting tasks at standard toilet with SBA. Start: 12/07/23 Expected End: 12/17/23 Transfers Patient will complete functional transfer with rolling walker with SBA in order to prepare for ambulation. Start: 12/07/23 Expected End: 12/17/23 Therapy Time Individual Co-treatment Time In 0840 Time Out 0905 Minutes 25 Timed Code Treatment Minutes: 8 Minutes (ADL) Margarito Hicks OT Patient's Occupational Therapy Plan of Care supervision is transferred to a [facility] Therapy Services Occupational Therapist. Goals and/or treatment plan was established in collaboration with patient/family/other representatives. documented in this encounter [facility] 12-12-2023 Note Formatting of this n ote might be different from the original. Dc to [facility] this afternoon at 1:00. [facility] to transport. [facility] messaged the facility with hand picker time. Ambulance form completed and report number provided to the bedside nurse. Spoke with patients daughter Kayleigh to discuss dc arrangements and the hand picker time. [facility] 12-12-2023 Note Formatting of this n ote might be different from the original. Dc to [facility] this afternoon at 1:00. [facility] to transport. [facility] messaged the facility with hand picker time. Ambulance form completed and report number provided to the bedside nurse. Spoke with patients daughter Kayleigh to discuss dc arrangements and the hand picker time. [facility] 12-12-2023 Miscellaneous Notes Dc to [facility] this afternoon at 1:00. [facility] to transport. [facility] messaged the facility with hand picker time. Ambulance form completed and report number provided to the bedside nurse. Spoke with patients daughter Kayleigh to discuss dc arrangements and the hand picker time. Images from the original note were not included. Care Management Progress Note Pt has discharge order. Pt to return to [facility]. COPPER [employer]ER notified to set up transport. SURFACE LAY OUT TECHNICIAN tasked to send discharge paperwork. Discharge Milestones and Delays Expected Date/Time: 12/12/2023 Disposition: [facility] Facility Transport status: No current request Discharge Milestones Completed Place discharge order Complete med reconciliation Case mgmt discharge readiness Expected Discharge History Expected Date/Time Set By Reviewed At 12/12/2023 Lara Russell RN 12/12/2023 10:47 AM [facility] 12/12/2023 Ruiz Braun MD 12/12/2023 10:10 AM Dysphasia. telesitter. [facility] when stable" 12/12/2023 MITCHELL Graham 12/11/2023 9:11 AM 12/12/2023 Mi Titus RN 12/10/2023 10:56 AM From [facility]. Dysphasia. telesitter." 12/11/2023 MITCHELL Graham 12/10/2023 9:30 AM 12/08/2023 Lala Lerma MD 12/07/2023 6:39 PM 12/08/2023 Lala Lerma MD 12/06/2023 6:39 PM Length of Stay (Days): 6 GMLOS: 5.1 Discharge med list transmitted to return back to [facility] via [facility] per [facility] request. Problem: Knowledge Deficit Goal: Patient/family/caregiver demonstrates understanding of disease process, treatment plan, medications, and discharge instructions Outcome: Progressing Problem: Potential for Compromised Skin Integrity Goal: Skin Integrity is Maintained or Improved Outcome: Progressing Goal: Nutritional status is improving Outcome: Progressing Problem: Urinary Incontinence Goal: Perineal skin integrity is maintained or improved Outcome: Progressing Problem: Problem Interventions Goal: Assess Nutritional Intake Outcome: Progressing Goal: Dietary Supplements Outcome: Progressing The patient is Moderately Stable - Low risk of patient condition declining or worsening The patient's goals for the shift include safety The clinical goals for the shift include safety Over the shift, the patient did not make progress toward the following goals. Barriers to progression include . Recommendations to address these barriers include . Images from the original note were not included. Care Management Progress Note Chart reviewed. Patient remains on 2 east for treatment of Pnemonia and RSV. On IVF and IV Rocephin. PT/OT. Droplet Isolation. Discussed patient in rounds; will need to be video monitor free for 24 hours before discharge back to [facility]. 1220: Spoke with Mckeznie at [facility]. Confirms patient will need to be sitter and/or video monitor free x 24 hours before discharge. She is aware patient received Haldol yesterday and currently has video monitor; but not a bed side sitter. Discharge Milestones and Delays Expected Date/Time: 12/12/[address] discharge order Complete med reconciliation Case mgmt discharge readiness Clinical Stability Diagnsotic Workup Expected Discharge History Expected Date/Time Set By Reviewed At 12/12/2023 MITCHELL Graham 12/11/2023 9:11 AM Dysphasia. telesitter. [facility] when stable" 12/12/2023 Mi Titus RN 12/10/2023 10:56 AM From [facility]. Dysphasia. telesitter." 12/11/2023 MITCHELL Graham 12/10/2023 9:30 AM 12/08/2023 Lala Lerma MD 12/07/2023 6:39 PM 12/08/2023 Lala Lerma MD 12/06/2023 6:39 PM Length of Stay (Days): 5 GMLOS: 5.1 Problem: Knowledge Deficit Goal: Patient/family/caregiver demonstrates understanding of disease process, treatment plan, medications, and discharge instructions Outcome: Progressing Problem: Potential for Compromised Skin Integrity Goal: Skin Integrity is Maintained or Improved Outcome: Progressing Goal: Nutritional status is improving Outcome: Progressing Problem: Urinary Incontinence Goal: Perineal skin integrity is maintained or improved Outcome: Progressing Problem: Problem Interventions Goal: Assess Nutritional Intake Outcome: Progressing Goal: Dietary Supplements Outcome: Progressing The patient is Moderately Stable - Low risk of patient condition declining or worsening The patient's goals for the shift include safety The clinical goals for the shift include safety Over the shift, the patient did not make progress toward the following goals. Barriers to progression include . Recommendations to address these barriers include . Images from the original note were not included. Care Management Progress Note Chart reviewed. Patient remains on 2 east for treatment of Pnemonia and RSV. On IVF and IV Rocephin. PT/OT. Droplet Isolation. Received call from Mckenzie at [facility]; [phone]. She states patient is a correction care bedhold and can return when ready. She states patient does not need authorization started before discharge. She did state patient will need to be tele sitter free for 24 hours; bedside Rn and Dr. Ray updated via secure [employer] chat. DC plan: Return to [facility], needs to be tele sitter free 24 hours before discharge. Discharge Milestones and Delays Expected Date/Time: 12/12/[address] discharge order Complete med reconciliation Case mgmt discharge readiness Clinical Stability Diagnsotic Workup Expected Discharge History Expected Date/Time Set By Reviewed At 12/12/2023 Mi Titus RN 12/10/2023 10:56 AM From [facility]. Dysphasia. 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/caregiver as indicated: Confirmation of Payer with patient/family: Yes Payer Name: Aet Medicare : Yes Confirmation of Primary Care Physician: Confirmed PCP Name: Peter Katsaros Seen in last 2 years?: Yes Primary Caregiver: Other (Comment) (F staff) If assistance needed, confirmed caregiver ready, willing and able to care for patient at discharge: Yes Confirmed with: ECF staff Living Arrangements Current Residence: Number of Floors Number of Entry Steps: Bed/Bath Levels: Facility: [facility] Facility Name: [facility] Plan to Return: Yes Lives with: (other residents of [facility]) Support Systems: Children, Family members, Comments (Other) (F staff) Activities of Daily Living Ambulation: Assistance (FWW) Bathing/Dressing: Assistance Elimination/Continence/Toileting: Assistance Feeding: Independent Who Assists with Activities of Daily Living: ECF staff Instrumental Activities of Daily Living Prescription Coverage: Yes Pharmacy Used: [facility] pharmacy Medication Management: Medication dispenser Who assists with medication securing and setup?: ECF staff Transportation/Shopping: Assistance Provider Transportation Mode: Wheelchair van, Senior/disability transport service Needs Assistance with Transportation at Discharge: Yes ( will setup transport for return to facility) Meal Preparation: Assistance Provider Meal Prep Assistance Provider Name: EC staff Laundry/Cleaning: Assistance Provider Laundry/Cleaning Assistance Provider Name: EC staff Finances/Bill Paying: Assistance Provider Finances/Bill Payer Assistance Provider Name: DaughterKayleigh Communication: Independent Types of Care Services/Equipment Utilized Care Services: (N/A) Dialysis Type: NA Durable Medical Equipment: Walker, Glucometer Patient's Goal/Discharge Plan Patient expects to be discharged to: Discharge Planning Actions: Continue to follow, [facility] Facility referral indicated [place] of choice: [place] of choice discussed Patient's Choice Rights and [employer] and Collaborative Relationships Disclosed as Indicated for Post-Acute Care: Yes Interdisciplinary Team Engagement: Social Work Referral for: Additional Information: Spoke with patient's daughter, Kayleigh Scott, at [phone]. Introduced self and role. Patient admitted for SOB, fever, pneumonia - RSV. Recently, he was hospice, but this was revoked by family to treat him for skin cancer. Reportedly, the patient is comfort care, but the facility is providing him with antibiotics. Daughter does not wish to reenroll patient into hospice at this time but if his condition declines she would be open to hospice discussions. ID consulted. PT/OT recommending SNF LOC. Return referral to [facility] ECF submitted via [facility]. TCC will continue to follow. Ru Duckworth RN documented in this encounter [facility] 12-12-2023 Note Formatting of this n ote is different from the original. Images from the original note were not included. Care Management Progress Note Pt has discharge order. Pt to return to [facility]. COPPER [employer]ER notified to set up transport. SURFACE LAY OUT TECHNICIAN tasked to send discharge paperwork. Discharge Milestones and Delays Expected Date/Time: 12/12/2023 Disposition: [facility] Facility Transport status: No current request Discharge Milestones Completed Place discharge order Complete med reconciliation Case mgmt discharge readiness Expected Discharge History Expected Date/Time Set By Reviewed At 12/12/2023 Lara Russell RN 12/12/2023 10:[address] [facility] 12/12/2023 Ruiz Braun MD 12/12/2023 10:[address] [facility] when stable" 12/12/2023 MITCHELL Graham 12/11/2023 9:11 AM 12/12/2023 Mi Titus RN 12/10/2023 10:56 AM From [facility]. Dysphasia. telesitter." 12/11/2023 MITCHELL Graham 12/10/2023 9:30 AM 12/08/2023 Lala Lerma MD 12/07/2023 6:39 PM 12/08/2023 Lala Lerma MD 12/06/2023 6:39 PM Length of Stay (Days): 6 GMLOS: 5.1 [facility] 12-12-2023 Note Formatting of this n ote is different from the original. Images from the original note were not included. Care Management Progress Note Pt has discharge order. Pt to return to [facility]. COPPER MINER notified to set up transport. SURFACE LAY OUT TECHNICIAN tasked to send discharge paperwork. Discharge Milestones and Delays Expected Date/Time: 12/12/2023 Disposition: [facility] Facility Transport status: No current request Discharge Milestones Completed Place discharge order Complete med reconciliation Case mgmt discharge readiness Expected Discharge History Expected Date/Time Set By Reviewed At 12/12/2023 Lara Russell RN 12/12/[facility]23 10:[facility] 12/12/2023 Ruiz Braun MD 12/12/2023 10:10 AM Dysphasia. telesitter. [facility] when stable" 12/12/2023 MITCHELL Graham 12/11/2023 9:11 AM 12/12/2023 Mi Titus RN 12/10/2023 10:56 AM From [facility]. Dysphasia. telesitter." 12/11/2023 MITCHELL Graham 12/10/2023 9:30 AM 12/08/2023 Lala Lerma MD 12/07/2023 6:39 PM 12/08/2023 Lala Lerma MD 12/06/2023 6:39 PM Length of Stay (Days): 6 GMLOS: 5.1 [facility] 12-12-2023 Note Formatting of this n ote might be different from the original. Discharge med list transmitted to return back to [facility] via [facility] per [facility] request. [facility] [place] 12-12-2023 Note Formatting of this n ote might be different from the original. Discharge med list transmitted to return back to [facility] via [facility] per T[facility] request. [facility] 12-12-2023 Hospital course Narrative Images from the original note were not included. Discharge Summary Tita Keith : 1935 ADMIT DATE: 12/06/2023 DISCHARGE DATE: 12/12/2023 PRIMARY CARE PHYSICIAN: Marj Plasencia VISIT STATUS: Admission CODE STATUS: DNR-CCA DISCHARGE DIAGNOSES: Principal Problem: Pneumonia due to infectious organism, unspecified laterality, unspecified part of lung Active Problems: Severe malnutrition (CMS/HCC) (HCC) Acute, acute on chronic, unstable/uncontrolled chronic problems/diagnoses: Community-acquired pneumonia due to RSV and Streptococcus pneumonia Simple sepsis due to above Acute hypoxia with respiratory insufficiency- improved Mild elevated troponin due to demand ischemia from sepsis. EKG - no acute ST- T changes. Type 2 diabetes mellitus with hypoglycemia Alzheimer's dementia with behavioral disturbance Severe malnutrition Age indeterminate compression deformities in mid thoracic vertebral bodies Stable chronic problems affecting care, new non-acute diagnoses: Dementia DM HTN HLP HOSPITAL COURSE: Details as above: Admitted for SOB and fever with pneumonia. Initially started on broad spectrum antibiotics. Pneumonia work up positive for RSV and strep pneumo antigen. ID consulted and treated with antibiotics. DC back to SNF in stable and improved condition. SIGNIFICANT DIAGNOSTIC STUDIES: CT chest: IMPRESSION: 1. No evidence of large vessel or central pulmonary emboli. 2. Mucous plugging and patchy atelectasis, infiltrates or postinflammatory change in the bilateral lower lobes, right greater than left, of uncertain chronicity. Correlate clinically. 3. Wedge-shaped compression deformities in mid thoracic vertebral bodies may represent insufficiency change, but age-indeterminate. 12/07/2023 1317 12/07/2023 1610 Legionella and Streptococcus Urine Antigen [[id number]] (Abnormal) Urine, Clean Catch Final result Component Value Legionella pneumophila Ag Not Detected Streptococcus pneumoniae Ag Detected Abnormal SARS-CoV-2, Flu A/B, and RSV Combo [[id number]] (Abnormal) Swab from Nasopharynx Final result Component Value SARS-CoV-2 Not Detected Respiratory Syncytial Virus Detected Abnormal Influenza A Not Detected Influenza B Not Detected CONSULTANTS: ID, palliative care RECOMMENDED NEXT STEPS: CBC/BMP in 3 days Exam: BP 143/77 Pulse 75 Temp 36.7 C (98.1 F) (Temporal) Resp 16 Ht 6' 2" (1.88 m) Wt 129 lb 8 oz (58.7 kg) SpO2 98% BMI 16.63 kg/m General: alert, awake Chest : b/l equal air entry, no added sound , decreased breath sound on lung bases CVS: s1, s2, mo PA: soft, NT, BS+ Ext: no edema Neuro: overall weak, no focal neuroglial deficit noted, oriented to self only DISCHARGE MEDICATIONS: Medication List START taking these medications cefdinir 300 MG capsule Commonly known as: Omnicef Take 1 capsule (300 mg) by mouth 2 times daily for 2 days. CHANGE how you take these medications insulin glargine 100 UNIT/ML injection Commonly known as: Lantus Inject 4 Units under the skin Nightly. What changed: how much to take CONTINUE taking these medications cholecalciferol 50 MCG (2000 UT) capsule Commonly known as: Vitamin D-3 docusate sodium 100 MG capsule Commonly known as: Colace erythromycin 5 MG/GM ophthalmic ointment Commonly known as: Romycin lisinopril 20 MG tablet LORazepam 0.5 MG tablet Commonly known as: Ativan Melatonin 3 MG capsule mirtazapine 15 MG tablet Commonly known as: Remeron morphine 10 MG/5ML solution QUEtiapine 25 MG tablet Commonly known as: SEROquel Take 0.5 tablets (12.5 mg) by mouth 2 times daily. tamsulosin 0.4 MG 24 hr capsule Commonly known as: Flomax STOP taking these medications dexAMETHasone 6 MG tablet Commonly known as: Decadron Where to Get Your Medications These medications were sent to [facility] [address] [place] [id number] Hours: Sunday to Sunday 10 am to 6 pm cefdinir 300 MG capsule insulin glargine 100 UNIT/ML injection DIET: Adult diet Dysphagia - Minced and Moist; 5 carb choices (75 gm/meal); No Drinking Straws ACTIVITY: No restriction. COMPLEXITY OF FOLLOW UP: [x] Moderate Complexity: follow up within 7-14 calendar days (10532) [] Severe Complexity: follow up within 7 calendar days (78490) FOLLOW UP TESTING, PENDING RESULTS OR REFERRALS AT TRANSITIONAL CARE VISIT: [x] Yes [] No PENDING STUDIES: DISPOSITION: Skilled Facility FACILITY/HOME CARE AGENCY NAME: Follow up with No follow-up provider specified. on per RON INSTRUCTIONS TO MA/SW: Please call patient on day after discharge (must document patient contacted within 2 business days of discharge). FOLLOW UP QUESTIONS FOR MA/SW: 1. Did you get medications filled and taking them as instructed from discharge? 2. Are you following your discharge instructions from your hospital stay? 3. Please confirm patient is scheduled for a follow up appointment within the above time frame. DISCHARGE TIME: 40 min SIGNED: Ruiz Braun MD 12/12/2023, 10:16 AM documented in this encounter [facility] 12-12-2023 Hospital Discharg e instructions Candace Eastman RN - 12/12/2023 10:12 AM EST Continuity of Care Form Patient Name: Tita Keith : 1935 Admit date: 12/06/2023 Discharge date: 12-12-23 Code Status Order: DNR-CCA Advance Directives: Y Admitting Physician: Kayleigh Stout DO PCP: Marj Plasencia Discharging Nurse: RN Discharging Hospital Unit/Room#: B2-260/B2-260 A Discharging Unit Emergency Contact: Extended Emergency Contact Information Primary Emergency Contact: Kayleigh Scott Mobile Relation: Child Secondary Emergency Contact: Mike Keith Mobile Relation: Child Past Surgical History: Past Surgical History: Procedure Laterality Date BACK SURGERY Immunization History: There is no immunization history for the selected administration types on file for this patient. Active Problems: Medical Problems Problem List * (Principal) Pneumonia due to infectious organism, unspecified laterality, unspecified part of lung New onset type 2 diabetes mellitus (CMS/HCC) (HCC) Hyperosmolar hyperglycemic state (HHS) (HCC) Hyperglycemia Severe malnutrition (CMS/HCC) (HCC) (Chronic) COVID-19 Dementia without behavioral disturbance ([facility]) Isolation/Infection: Droplet Pneumonia rule out Nurse Assessment: Last Vital Signs: BP 143/77 Pulse 75 Temp 36.7 C (98.1 F) (Temporal) Resp 16 Ht 6' 2" (1.88 m) Wt 129 lb 8 oz (58.7 kg) SpO2 98% BMI 16.63 kg/m Last documented pain score (0-10 scale): Last Weight: Wt Readings from Last 1 Encounters: 12/07/23 129 lb 8 oz (58.7 kg) Mental Status: RON Patient Mental Status: disoriented and alert IV Access: RON IV Access: None Nursing Mobility/ADLs: Walking Total assistance Transfer Total assistance Bathing Total assistance Dressing Total assistance Toileting Total assistance Feeding Minimal assistance Garden Implement Mechanic Total assistance Med Delivery yes Wound Care Documentation and Therapy: Wound/Incision 09/11/23 Skin Tear Face Upper (Active) Odor None 12/11/23 1000 Drainage Amount None 12/11/23 1000 Primary Dressing Open to air 12/11/23 1000 Number of days: 91 Elimination: Continence: Bowel: no Bladder: no Urinary Catheter: None Colostomy/Ileostomy/Ileal Conduit: None Date of Last BM: 12-11-23 Intake/Output Summary (Last 24 hours) at 12/12/2023 1012 Last data filed at 12/11/2023 2041 Gross per 24 hour Intake 360 ml Output -- Net 360 ml I/O last 3 completed shifts: In: 440 (7.5 mL/kg) [P.O.:360; I.V.:30 (0.5 mL/kg); IV Piggyback:50] Out: - (0 mL/kg) Weight: 58.7 kg Safety Concerns: history of falls (last 30 days) Impairments/Disabilities: Cognitive impairments due to dementia Nutrition Therapy: Current Nutrition Therapy: Oral diet: general Routes of Feeding: oral Liquids: thin liquids Daily Fluid Restriction: no Last Modified Barium Swallow with Video (Video Swallowing Test): not done Treatments at the Time of Hospital Discharge: Respiratory Treatments: na Oxygen Therapy: is not on home oxygen therapy. Ventilator: No ventilator support Rehab Therapies: physical therapy and occupational therapy Weight Bearing Status/Restrictions: no restriction Other Medical Equipment (for information only, NOT a DME order): none Other Treatments: Patient's personal belongings (please select all that are sent with patient): none RN SIGNATURE: MANAGEMENT/SOCIAL WORK SECTION Inpatient Status Date: Readmission Risk Assessment Score: @READMISSIONRISKDETAILS@ Discharging to Facility/ Agency Name: [facility] Address: [address], [place] [address] Dialysis Facility (if applicable) Name: Address: Dialysis Schedule: Phone: Fax: [employer]/Sap Bobj Developer signature: ICIAN SECTION Prognosis: fair Condition at Discharge: stable Rehab Potential (if transferring to Rehab): fair Recommended Labs or Other Treatments After Discharge: Cbc/bmp in 3 days Physician Certification: I certify the above information and transfer of Tiat Keith is necessary for the continuing treatment of the diagnosis listed and that he requires retirement facility for less than 30 days. Update Admission H&P: No change in H&P PHYSICIAN SIGNATURE: documented in this encounter [facility] 12-12-2023 Nurse Note Pt refused labs this am [facility] 12-12-2023 Nurse Note Pt refused labs this am documented in this encounter [facility] 12-11-2023 Plan of care note Problem: Knowledge Deficit Goal: Patient/family/caregiver demonstrates understanding of disease process, treatment plan, medications, and discharge instructions Outcome: Progressing Problem: Potential for Compromised Skin Integrity Goal: Skin Integrity is Maintained or Improved Outcome: Progressing Goal: Nutritional status is improving Outcome: Progressing Problem: Urinary Incontinence Goal: Perineal skin integrity is maintained or improved Outcome: Progressing Problem: Problem Interventions Goal: Assess Nutritional Intake Outcome: Progressing Goal: Dietary Supplements Outcome: Progressing The patient is Moderately Stable - Low risk of patient condition declining or worsening The patient's goals for the shift include safety The clinical goals for the shift include safety Over the shift, the patient did not make progress toward the following goals. Barriers to progression include . Recommendations to address these barriers include . [facility] 12-11-2023 Note Formatting of this n ote is different from the original. Images from the original note were not included. Care Management Progress Note Chart reviewed. Patient remains on 2 east for treatment of Pnemonia and RSV. On IVF and IV Rocephin. PT/OT. Droplet Isolation. Discussed patient in rounds; will need to be video monitor free for 24 hours before discharge back to [facility]. 1220: Spoke with Mckenzie at [facility]. Confirms patient will need to be sitter and/or video monitor free x 24 hours before discharge. She is aware patient received Haldol yesterday and currently has video monitor; but not a bed side sitter. Discharge Milestones and Delays Expected Date/Time: 12/12/[address] discharge order Complete med reconciliation Case mgmt discharge readiness Clinical Stability Diagnsotic Workup Expected Discharge History Expected Date/Time Set By Reviewed At 12/12/2023 MITCHELL Graham 12/11/2023 9:11 AM Dysphasia. telesitter. [facility] when stable" 12/12/2023 Mi Titus RN 12/10/2023 10:56 AM From [facility]. Dysphasia. telesitter." 12/11/2023 MITCHELL Graham 12/10/2023 9:30 AM 12/08/2023 Lala Lerma MD 12/07/2023 6:39 PM 12/08/2023 Lala Lerma MD 12/06/2023 6:39 PM Length of Stay (Days): 5 GMLOS: 5.1 [facility] 12-11-2023 Note Formatting of this n ote is different from the original. Images from the original note were not included. Care Management Progress Note Chart reviewed. Patient remains on 2 east for treatment of Pnemonia and RSV. On IVF and IV Rocephin. PT/OT. Droplet Isolation. Discussed patient in rounds; will need to be video monitor free for 24 hours before discharge back to [facility]. 1220: Spoke with Mckenzie at [facility]. Confirms patient will need to be sitter and/or video monitor free x 24 hours before discharge. She is aware patient received Haldol yesterday and currently has video monitor; but not a bed side sitter. Discharge Milestones and Delays Expected Date/Time: 12/12/[address] discharge order Complete med reconciliation Case mgmt discharge readiness Clinical Stability Diagnsotic Workup Expected Discharge History Expected Date/Time Set By Reviewed At 12/12/2023 MITCHELL Graham 12/11/2023 9:11 AM Dysphasia. telesitter. [facility] when stable" 12/12/2023 Mi Titus RN 12/10/2023 10:56 AM From [facility]. Dysphasia. telesitter." 12/11/2023 MITCHELL Graham 12/10/2023 9:30 AM 12/08/2023 Lala Lerma MD 12/07/2023 6:39 PM 12/08/2023 Lala Lerma MD 12/06/2023 6:39 PM Length of Stay (Days): 5 GMLOS: 5.1 [facility] 12-10-2023 Plan of care note Problem: Knowledge Deficit Goal: Patient/family/caregiver demonstrates understanding of disease process, treatment plan, medications, and discharge instructions Outcome: Progressing Problem: Potential for Compromised Skin Integrity Goal: Skin Integrity is Maintained or Improved Outcome: Progressing Goal: Nutritional status is improving Outcome: Progressing Problem: Urinary Incontinence Goal: Perineal skin integrity is maintained or improved Outcome: Progressing Problem: Problem Interventions Goal: Assess Nutritional Intake Outcome: Progressing Goal: Dietary Supplements Outcome: Progressing The patient is Moderately Stable - Low risk of patient condition declining or worsening The patient's goals for the shift include safety The clinical goals for the shift include safety Over the shift, the patient did not make progress toward the following goals. Barriers to progression include . Recommendations to address these barriers include . [facility] 12-10-2023 Note Formatting of this n ote is different from the original. Images from the original note were not included. Care Management Progress Note Chart reviewed. Patient remains on 2 east for treatment of Pnemonia and RSV. On IVF and IV Rocephin. PT/OT. Droplet Isolation. Received call from Mckenzie at [facility]; [phone]. She states patient is a correction care bedhold and can return when ready. She states patient does not need authorization started before discharge. She did state patient will need to be tele sitter free for 24 hours; bedside Rn and Dr. Ray updated via secure [employer] chat. DC plan: Return to [facility], needs to be tele sitter free 24 hours before discharge. Discharge Milestones and Delays Expected Date/Time: 12/12/[address] discharge order Complete med reconciliation Case mgmt discharge readiness Clinical Stability Diagnsotic Workup Expected Discharge History Expected Date/Time Set By Reviewed At 12/12/2023 Mi Titus RN 12/10/2023 10:56 AM From [facility]. Dysphasia. telesitter." 12/11/2023 MITCHELL Graham 12/10/2023 9:30 AM 12/08/2023 Lala Lerma MD 12/07/2023 6:39 PM 12/08/2023 Lala Lerma MD 12/06/2023 6:39 PM Length of Stay (Days): 4 GMLOS: No GMLOS Documented [id number] 12-10-2023 Note Formatting of this n ote is different from the original. Images from the original note were not included. Care Management Progress Note Chart reviewed. Patient remains on 2 east for treatment of Pnemonia and RSV. On IVF and IV Rocephin. PT/OT. Droplet Isolation. Received call from Mckenzie at [facility]; [phone]. She states patient is a lobsterman care bedhold and can return when ready. She states patient does not need authorization started before discharge. She did state patient will need to be tele sitter free for 24 hours; bedside Rn and Dr. Ray updated via secure [employer] chat. DC plan: Return to [facility], needs to be tele sitter free 24 hours before discharge. Discharge Milestones and Delays Expected Date/Time: 12/12/[address] discharge order Complete med reconciliation Case mgmt discharge readiness Clinical Stability Diagnsotic Workup Expected Discharge History Expected Date/Time Set By Reviewed At 12/12/2023 Mi Titus RN 12/10/2023 10:56 AM From [facility]. Dysphasia. telesitter." 12/11/2023 MITCHELL Graham 12/10/2023 9:30 AM 12/08/2023 Lala Lerma MD 12/07/2023 6:39 PM 12/08/2023 Lala Lerma MD 12/06/2023 6:39 PM Length of Stay (Days): 4 GMLOS: No GMLOS Documented [id number] 12-09-2023 Consult note Associated Order (s): PHARMACY TO DOSE VANCO Vancomycin therapy has been discontinued by Dr. Ray on 12/08/23. Thank you for the consult. Pharmacy signing off for vancomycin dosing. Dior Whitaker Bettie, PharmD Date: 12/09/23 Time: 7:05 AM [facility] 12-09-2023 Consult note Associated Order (s): PHARMACY TO DOSE VANCO Vancomycin therapy has been discontinued by Dr. Ray on 12/08/23. Thank you for the consult. Pharmacy signing off for vancomycin dosing. Dior Whitaker RPh, PharmD Date: 12/09/23 Time: 7:05 AM Associated Order(s): IP CONSULT TO DIETITIAN Nutrition Assessment Type and Reason for Visit: Initial, Consult (poor PO) Nutrition Recommendations/Plan: Modify diet to Adult diet Dysphagia - Minced and Moist; 5 carb choices (75 gm/meal); No Drinking Straws per MNT protocol. Monitor need for CLAIMS PROCESSOR consult. Initiate Ensure high protein TID per MNT protocol. Ensure High Protein provides 160 kcals, 16 g protein per serving. Prefers chocolate flavor. Please document pt's PO intakes via flowsheet to accurately assess PO intake adequacy. Monitor intakes, weights, and labs weekly. RD will follow. Malnutrition Assessment: Malnutrition Status: Severe malnutrition Context: Chronic Illness Findings of the 6 clinical characteristics of malnutrition: Energy Intake: 75% or less estimated energy requirements for 1 month or longer Weight Loss: Unable to assess Body Fat Loss: Severe body fat loss Orbital, Triceps, Buccal region Muscle Mass Loss: Severe muscle mass loss Temples (temporalis), Clavicles (pectoralis & deltoids), Calf (gastrocnemius), Hand (interosseous) Fluid Accumulation: Mild Extremities Machine Attendant Strength: Not Performed Nutrition Assessment: Pt was admitted from facility with Shortness of breath and fever here with RSV. Pt appeared weak and sleepy during RD visit today. Pt ate about 26-50% of his lunch tray this afternoon. Pt unable to provide much history this date. RD weighed via bed scale at 146.9#, however the ED bed scale was not zeroed prior to weighing. 12/06 wt-123#. Previous weights at the facility 127-128#. Estimated Daily Nutrient Needs: Energy Requirements Based On: Kcal/kg Weight Used for Energy Requirements: Current Weight for Energy Calculation (kg): 56 kg Total Energy Requirements (kcals/day): 0285-3144 kcals (30-35 kcals/kg) Weight Used for Protein Requirements: Current Weight in Kg Used for Protein Requirements: 56 kg Estimated Total Protein (g/day): 67-84 (1.2-1.5g/kg) Estimated Daily Total Fluid (ml/day): 1700 ml/day or per MD Nutrition Related Findings: non pitting generalized edema; moderate RUE edema; BUN 47, Cr 1.35, GFR 50.5, glucose 158, 108, 236, Troponin 0.070, NaCl-75 ml/hr Wound Type: Skin Tears (upper face) Current Nutrition Therapies: Adult diet Dysphagia - Minced and Moist; 5 carb choices (75 gm/meal); No Drinking Straws Current Oral Intake Average Meal Intake: 26-50% Average Supplements Intake: None Ordered Anthropometric Measures: Height: 188 cm (6' 2") Current Body Weight: 55.8 kg (123 lb) Weight Source: Not Specified Admission Body Weight: 55.8 kg (123 lb) (stated) Usual Body Weight: 57.6 kg (127 lb) (127-128# at facility) % Weight Change (Calculated): -3.1 [place] Body Weight (lbs) (Calculated): 190 lbs [place] Body Weight (Kg) (Calculated): 86 kg % [place] Body Weight (Calculated): 64.7 % BMI (kg/m2) (Calculated): 15.8 Weight Adjustment For: No Adjustment BMI Categories: Underweight (BMI less than 22) age over 65 Nutrition Diagnosis: Severe malnutrition related to inadequate protein-energy intake, cognitive or neurological impairment as evidenced by poor intake prior to admission, severe loss of subcutaneous fat, severe muscle loss, localized or generalized fluid accumulation Increased nutrient needs related to increase demand for energy/nutrients, impaired respiratory function as evidenced by BMI, other (comment) (estimated anabolic needs) Nutrition Interventions: Nutrition Education/Counseling: No recommendation at this time Coordination of Nutrition Care: Continue to monitor while inpatient Plan of Care discussed with: Patient Goals: Goals: PO intake 75% or greater, by next RD assessment Nutrition Monitoring and Evaluation: Behavioral-Environmental Outcomes: None Identified Food/Nutrient Intake Outcomes: Diet Advancement/Tolerance, Food and Nutrient Intake, Supplement Intake Physical Signs/Symptoms Outcomes: Biochemical Data, Chewing or Swallowing, GI Status, Fluid Status or Edema, Nutrition Focused Physical Findings, Skin, Weight Discharge Planning: Continue Oral Nutrition Supplement Dian Tipton RD Contact: *[phone] or via Secure Chat Associated Order(s): IP CONSULT TO INFECTIOUS DISEASES Images from the original note were not included. [facility] - Infectious Diseases Advanced Practice Provider Consult Note Reason for Consult: Bilateral pna History of Present Illness: This is an 88 yo M with a PMH of dementia, DM, HLD and HTN who presents to [facility] ED on 12/06 from his nursing facility for c/o fevers, chills and cough for the last 4 days. Pt has dementia and is poor historian. Does endorse fever and chills currently. Endorses cough. Denies abd pain, n/v/d. Pt's daughter assists in history, states his cough and fevers began on Sunday, and have worsened. His highest temp recorded at his nursing facility was 105F. He was given Tylenol rectally prior to ED arrival at . States when he coughs, it is sometimes wet with white colored phlegm. Daughter states his L eye always has lower lid drooping, but the eye discharge is new as of this week. Afebrile. Currently on room air. WBC 8.4. CXR without acute process. CTA chest with no evidence of PE, but with mucous plugging/patchy atelectasis/infiltrate in b/l lower lobes. Pt tested + for RSV on 12/06. Blood cx collected. Started on empiric vanc and zosyn by primary. ID consulted for bilateral pneumonia. Past Medical History: Past Medical History: Diagnosis Date Dementia (HCC) Diabetes mellitus (HCC) Hyperlipidemia Hypertension Past Surgical History: Past Surgical History: Procedure Laterality Date BACK SURGERY Current Medications: Current Facility-Administered Medications Medication Dose Route Frequency Provider Last Rate Last Admin acetaminophen (Tylenol) tablet 650 mg 650 mg Oral q6h PRN Kayleigh M Esterle, DO Or acetaminophen (Tylenol) suppository 650 mg 650 mg Rectal q6h PRN Kayleigh M Esterle, DO dextrose 5 % infusion 100 mL/hr IntraVENous PRN Kayleigh M Esterle, DO dextrose 50 % solution 12.5 g 12.5 g IntraVENous PRN Kayleigh M Esterle, DO docusate sodium (Colace) capsule 100 mg 100 mg Oral BID Kayleigh M Esterle, DO 100 mg at 12/07/23 0938 enoxaparin (Lovenox) syringe 30 mg 30 mg SubCUTAneous Daily Kayleigh M Esterle, DO 30 mg at 12/07/23 0938 glucagon (human recombinant) injection 1 mg 1 mg IntraMUSCular PRN Kayleigh M Esterle, DO glucose oral gel 15 g 15 g Oral PRN Kayleigh M Esterle, DO haloperidol lactate (Haldol) injection 1 mg 1 mg IntraMUSCular q6h PRN Rai Ray MD 1 mg at 12/07/23 1221 hydrALAZINE (Apresoline) injection 10 mg 10 mg IntraVENous q4h PRN Kayleigh M Esterle, DO insulin glargine (Lantus) injection 14 Units 14 Units SubCUTAneous Nightly Kayleigh M Esterle, DO Insulin Lispro (Humalog) injection 0-12 Units 0-12 Units SubCUTAneous TID WC Kayeligh M Esterle, DO 2 Units at 12/07/23 1313 And Insulin Lispro (Humalog) injection 0-12 Units 0-12 Units SubCUTAneous Nightly Kayleigh M Esterle, DO ipratropium-albuterol (Duo-Neb) 0.5-2.5 mg/3 mL nebulizer solution 3 mL 3 mL Nebulization Q4H while awake Kayleigh M Esterle, DO lisinopril tablet 20 mg 20 mg Oral Daily Kayleigh M Esterle, DO 20 mg at 12/07/23 0938 LORazepam (Ativan) tablet 0.25 mg 0.25 mg Oral 4x daily PRN Kayleigh M Esterle, DO Melatonin disintegrating tablet 5 mg 5 mg Oral Nightly Kayleigh M Esterle, DO mirtazapine (Remeron) tablet 15 mg 15 mg Oral Nightly Kayleigh M Esterle, DO morphine 10 MG/0.5ML concentrated solution 20 mg 20 mg Oral q2h PRN Kayleigh M Esterle, DO naloxone (Narcan) injection 0.4 mg 0.4 mg IntraVENous q5 min PRN Kayleigh M Esterle, DO ondansetron ODT (Zofran-ODT) disintegrating tablet 4 mg 4 mg Oral q8h PRN Kayleigh M Esterle, DO Or ondansetron (Zofran) injection 4 mg 4 mg IntraVENous q6h PRN Kayleigh M Esterle, DO piperacillin-tazobactam (Zosyn) 3,375 mg in sodium chloride 0.9 % 50 mL IVPB Mini-Bag Plus 3,375 mg IntraVENous q8h Kayleigh M Esterle, DO Stopped at 12/07/23 0931 polyethylene glycol (PEG) 3350 (Miralax) packet 17 g 17 g Oral Daily PRN Kayleigh M Esterle, DO QUEtiapine (SEROquel) tablet 12.5 mg 12.5 mg Oral BID Kayleigh M Esterle, DO 12.5 mg at 12/07/23 0938 sodium chloride 0.9 % infusion 5-250 mL/hr IntraVENous PRN Kayleihg M Esterle, DO sodium chloride 0.9 % infusion 75 mL/hr IntraVENous Continuous Kayleigh M Esterle, DO 75 mL/hr at 12/07/23 0821 75 mL/hr at 12/07/23 0821 sodium chloride 0.9% (NS) flush 10 mL 10 mL IntraVENous 2 times per day Kayleigh M Esterle, DO 10 mL at 12/07/23 0900 sodium chloride 0.9% (NS) flush 10 mL 10 mL IntraVENous PRN Kayleigh M Esterle, DO tamsulosin (Flomax) 24 hr capsule 0.8 mg 0.8 mg Oral Nightly Kayleigh M Esterle, DO vancomycin (Vancocin) 750 mg in sodium chloride 0.9 % 250 mL IVPB 750 mg IntraVENous q24h Kayleigh M Esterle, DO Current Outpatient Medications Medication Sig Dispense Refill cholecalciferol (Vitamin D-3) 50 MCG (1999 UT) capsule Take 2,000 Units by mouth. dexAMETHasone (Decadron) 6 MG tablet Take 1 tablet (6 mg) by mouth daily for 3 days. docusate sodium (Colace) 100 MG capsule Take 100 mg by mouth 2 times daily. erythromycin (Romycin) 5 MG/GM ophthalmic ointment Apply 1 Application to left eye Nightly. Apply Amount per Dose: 0.5 inch (~1 cm) per dose. insulin glargine (Lantus) 100 UNIT/ML pen Inject 14 Units under the skin Nightly. lisinopril 20 MG tablet Take 20 mg by mouth daily. LORazepam (Ativan) 0.5 MG tablet Take 0.25 mg by mouth 4 times daily as needed for anxiety. Melatonin 3 MG capsule Take 6 mg by mouth Nightly. mirtazapine (Remeron) 15 MG tablet Take 15 mg by mouth Nightly. morphine 10 MG/5ML solution Take 20 mg by mouth every 2 hours as needed for severe pain (7-10). QUEtiapine (SEROquel) 25 MG tablet Take 0.5 tablets (12.5 mg) by mouth 2 times daily. 30 tablet 0 tamsulosin (Flomax) 0.4 MG 24 hr capsule Take 0.8 mg by mouth Nightly. Allergies: No Known Allergies Social History: Social History Socioeconomic History Marital status: Spouse name: Not on file Number of children: Not on file Years of education: Not on file Highest education level: Not on file Occupational History Not on file Tobacco Use Smoking status: Never Smokeless tobacco: Never Substance and Sexual Activity Alcohol use: Not Currently Drug use: Never Sexual activity: Not on file Other Topics Concern Not on file Social History Narrative Not on file Social Determinants of Health Financial Resource Strain: Not on file Food Insecurity: Not on file Transportation Needs: No Transportation Needs (01/18/2023) PRAPARE - Transportation Lack of Transportation (Medical): No Lack of Transportation (Non-Medical): No Physical Activity: Not on file Stress: Not on file Social Connections: Not on file Intimate Partner Violence: Patient Declined (09/11/2023) Humiliation, Afraid, Rape, and Kick questionnaire Fear of Current or Ex-Partner: Patient declined Emotionally Abused: Patient declined Physically Abused: Patient declined Sexually Abused: Patient declined Housing Stability: Low Risk (01/18/2023) Housing Stability Vital Sign Unable to Pay for Housing in the Last Year: No Number of Places Lived in the Last Year: 2 Unstable Housing in the Last Year: No Family History: No family history on file. Review of Systems: Review of Systems Constitutional: Positive for chills and fever. Negative for activity change and appetite change. HENT: Negative for congestion, ear discharge, ear pain, facial swelling, hearing loss, sore throat, trouble swallowing and voice change. Eyes: Positive for discharge. Negative for photophobia, pain, redness, itching and visual disturbance. Respiratory: Positive for cough and shortness of breath. Negative for apnea, choking and wheezing. Cardiovascular: Negative for chest pain and leg swelling. Gastrointestinal: Negative for abdominal distention, abdominal pain, constipation, diarrhea, nausea and vomiting. Genitourinary: Negative for difficulty urinating, dysuria, flank pain, frequency, hematuria and urgency. Musculoskeletal: Negative for arthralgias, gait problem, joint swelling, neck pain and neck stiffness. Skin: Negative for color change, rash and wound. Neurological: Negative for dizziness, speech difficulty, weakness, light-headedness, numbness and headaches. Psychiatric/Behavioral: Negative for agitation, behavioral problems and confusion. Vitals: Patient Vitals for the past 24 hrs: BP Temp Temp src Pulse Resp SpO2 Height Weight 12/07/23 1400 -- -- -- -- -- -- 1.88 m (6' 2") 66.6 kg (146 lb 14.4 oz) 12/07/23 1131 122/77 -- -- 88 16 100 % -- -- 12/07/23 0757 128/84 36.6 C (97.8 F) Oral 64 16 97 % -- -- 12/07/23 0530 (!) 165/67 36.6 C (97.9 F) Oral 64 15 95 % -- -- 12/07/23 0130 (!) 160/71 -- -- 59 13 96 % -- -- 12/07/23 0005 (!) 178/63 -- -- 69 19 95 % -- -- 12/06/23 2232 133/65 -- -- 65 15 90 % -- -- 12/06/232023 (!) 152/135 -- -- 81 16 93 % 1.88 m (6' 2") 55.8 kg (123 lb) 12/06/23 1902 123/82 -- -- 84 25 92 % -- -- 12/06/23 1832 136/82 -- -- 89 20 93 % -- -- 12/06/23 1810 133/74 -- -- 93 19 93 % -- -- 12/06/23 1802 133/74 -- -- 95 20 92 % -- -- 12/06/23 1757 (!) 153/90 -- -- 100 19 -- -- -- 12/06/23 1626 -- -- -- -- -- -- -- 55.8 kg (123 lb) 12/06/23 1603 (!) 145/87 37.1 C (98.8 F) -- 110 23 93 % -- -- Physical Exam: Physical Exam Vitals and nursing note reviewed. Constitutional: General: He is not in acute distress. Appearance: He is normal weight. He is ill-appearing. He is not toxic-appearing or diaphoretic. Comments: Pt sitting up in bed, NAD.Responds appropriately, conversant. Daughter at bedside. HENT: Head: Atraumatic. Right Ear: External ear normal. Left Ear: External ear normal. Nose: Nose normal. Mouth/Throat: Mouth: Mucous membranes are moist. Pharynx: Oropharynx is clear. No oropharyngeal exudate. Eyes: General: Right eye: Discharge present. Left eye: Discharge present. Extraocular Movements: Extraocular movements intact. Pupils: Pupils are equal, round, and reactive to light. Comments: L lower eyelid ptosis. Bilateral crusting eye discharge Cardiovascular: Rate and Rhythm: Normal rate and regular rhythm. Pulses: Normal pulses. Heart sounds: Normal heart sounds. No murmur heard. Pulmonary: Effort: Pulmonary effort is normal. No respiratory distress. Breath sounds: Normal breath sounds. No wheezing or rhonchi. Abdominal: General: Abdomen is flat. Bowel sounds are normal. There is no distension. Palpations: Abdomen is soft. Tenderness: There is no abdominal tenderness. There is no guarding. Musculoskeletal: General: No swelling. Normal range of motion. Cervical back: Normal range of motion. No rigidity. Right lower leg: No edema. Left lower leg: No edema. Skin: General: Skin is warm and dry. Coloration: Skin is not jaundiced. Findings: No erythema, lesion or rash. Neurological: Mental Status: He is alert. Mental status is at baseline. Sensory: Sensory deficit present. Motor: Weakness present. Comments: Dementia Psychiatric: Mood and Affect: Mood normal. Behavior: Behavior normal. Labs: Recent Labs 12/06/23 1621 NA 136 K 4.5 CL 101 CO2 25 BUN 47* CREATININE 1.35* GLUCOSE 200* CALCIUM 9.4 PROT 7.1 BILITOT 0.7 ALKPHOS 99 AST 29 ALT 28 Recent Labs 12/06/23 1621 WBC 8.4 HGB 12.6* HCT 36.4* PLT 144 LYMPHOPCT 5.8* MONOPCT 7.3 BASOPCT 0.1 NEUTROABS 7.3* Micro: No results for input(s): "COVID19" in the last 72 hours. 12/07 legionella/strep pneumo antigen in process 12/06 RSV + 12/06 11/23 blood cx collected Lines: PIV Radiography/Echo/Other: 12/06 CT chest angio 1. No evidence of large vessel or central pulmonary emboli. 2. Mucous plugging and patchy atelectasis, infiltrates or postinflammatory change in the bilateral lower lobes, right greater than left, of uncertain chronicity. Correlate clinically. 3. Wedge-shaped compression deformities in mid thoracic vertebral bodies may represent insufficiency change, but age-indeterminate. 12/06 CXR No radiographic acute cardiopulmonary process. Antimicrobials,Start/End Dates: Vancomycin Pip tazo Impression: Acute RSV LRTI of b/l lower lobes without hypoxia Fevers ALFRED Dementia Bilateral conjunctival eye discharge L lower eyelid ptosis Plan: Pt afebrile. Without leukocytosis. Likely his infiltrates/fevers are d/t RSV. Continue supportive care. However, pending further pneumonia work up, can maintain empiric atb coverage with pip tazo and vancomycin. Procal not reliable in setting of ALFRED If MRSA nasal PCR negative, discontinue vancomycin Optimize as able Follow work up/blood cx Likely viral conjunctival discharge on eyelids, but if worsens/does not improve, consider Optho eval. No visual impairment at this time ID to follow Dr Signs to cover this weekend Total time 80 minutes on this day of encounter includes counseling, coordinating plan of care, record and documentation review before and after visit including documentation and time not explicitly included on EMR time stamp for accounting for open encounter. SIDNEY Faulkner PA-C Associated Order(s): IP CONSULT TO PALLIATIVE CARE Images from the original note were not included. Palliative Care Initial Consult Chief Complaint: Tita Keith is a 88 y.o. male with chief complaint of SOB Palliative care consulted for goals of care Palliative Care is actively following. Assessment/Plan Goals of care - met with patient this morning in ED, patient was confused - patient at this time does not have medical decision making capacity - reached out to daughter/HCPOA Kayleigh Sebastientrevon, introduced self and role - Kayleigh stated that patient has 4 children, 2 boys 2 girls - stated 2 of patient's children live out of town - Kayleigh stated that patient was in hospice at [facility] and they revoked hospice for him to be treated for skin cancer - kayleigh stated that patient likes it at [facility] and she would like him to go back there b - stated she does not want to re enroll him on hospice at this time but if his condition declined she would be open to hospice discussions - Code status at this time remains DNRCCA - will continue to have ongoing goals of care discussions with Kayleigh - discussed with primary team attending Dr. Ray Altered mental status - likely due to delirium on top of Dementia, RSV infection - continue to monitor RSV/PNA - patient on isolation, empiric antibiotics, IVF started Dementia - per daughter Kayleigh she was here this morning and that is his baseline - stated he did have altered mental status yesterday Pneumonia - on IV zosyn, vancomycin Skin cancer - per daughter revoked hospice recently to get surgery for skin cancer Severe PCM - patient is hospice appropriate Palliative Care Encounter - will continue to follow for ongoing monitoring of progression of Dyspnea and Pain as well as for appropriateness for hospice care due to Protein Calorie Malnutrition - will continue to evaluate test results related to Protein Calorie Malnutrition, medication effectiveness for Dyspnea, Pain, and Constipation, response to treatment of Protein Calorie Malnutrition - obtaining testing as needed to monitor medication results:N/A Total of 85 minutes spent on this encounter including Chart review, Patient visit and exam, Documentation in EHR, Care coordination, and Communicating with primary attending or other consultants. Discharge planning: Not ready for discharge due to ongoing goals of care discussion Patient meets criteria for general inpatient hospice care including the following: N/A - Palliative Care Patient Referrals to: None Discussed patient and the plan of care with the other interdisciplinary team (IDT) members of Palliative Care Team, and with Primary Attending, Family, and Floor Nurse Insert attestation statement here if applicable (.disupervision) or (.npattest) Subjective: Hospital days prior to consult: 1 day Trauma Consult: no. (If yes, please add .traumapall dotphrase for tracking purposes.) Subjective/Events Tita Keith is a 88 y.o. male with PMHx of Dementia, HTN, HLP, DM 2 who was admitted to [facility] on 12/06/23 from [facility] for altered mental status. Per daughter patient was previously on hospice at [facility], hospice was revoked to seek treatment for skin cancer. Daughter stated patient developed altered mental status, had TM of 105 F and he was sent to ED this admission. Patient found to have RSV infection, was palced on isolation. Patient was started on IV antibiotics. Palliative care consulted for goals of care. Pain Assessment (If Pain Scale >0) Please see FLACC Goals of care:Continue Current Management Advance Directives: DNR-CCA Surrogate: Child and HCPOA Prognosis: depends upon goals Spiritual assessment: No spiritual distress identified Bereavement and grief: Grief Issues Not Identified Past Medical History: Diagnosis Date Dementia (HCC) Diabetes mellitus (HCC) Hyperlipidemia Hypertension Past Surgical History: Procedure Laterality Date BACK SURGERY No family history on file. Unable to obtain family history due to patient unresponsive No Known Allergies Review of Systems ROS: See palliative care ROS/ESAS below; Detail ROS unable to be obtained due to patient's mental status [place] Symptom Assessment Score [place] Score Pain Score 0 per FLACC Tiredness Score 10 Nausea Score 0 Depression Score 0 Anxiety Score 0 Drowsiness Score 10 Anorexia Score (0= eating well, 10= not eating) 10 Wellbeing Score (10= worst sense of well-being) 8 Constipation 0 Dyspnea Score (0= no shortness of breath) 0 FLACC Scale (For Pain Assessment of the Non-Verbal Patient) Face: 0- no particular expression Legs: 0- normal position or relaxed Activity: 0-lying quietly, moves easily Cry: 0-no cry Consolability:0-content, relaxed Total Score: 0 Assessed by: provider. Social history: status: no Marital status: single Living status: snf Work history: retired Advance Care Planning: The patient has capacity to make healthcare and advanced care planning decisions No The patient's identified surrogate decision maker is Child and HCPOA. Discussion participants: Provider - myself and Child - Kayleigh Diagnosis and Prognosis, Goals of Care, Treatment Options, Symptom Management, Advanced Care Planning, and Prior Expressed Wishes We discussed goals of care related to the patient's current health as documented below: - see A and P We discussed molcigy-hv-vuar concerns identified by the patient/surrogate, including - see A and P Interventions reviewed: Resuscitation procedures (CPR), Mechanical ventilator support, and Diagnostic testing Advance Care Planning Documents: Healthcare Power of Animal Control Specialist: Completed Financial Power of Animal Control Specialist: Other Unknown Living Will: Other Unknown Code Status: DNR-CCA In addition to the time spent evaluating and managing the patient's medical diagnoses above, 15 minutes of this encounter was spent discussing advanced care planning documented above. Please bill [id number] for 16-46 minutes and add additional [id number] for >46 minutes. Family Meeting: Participants: child Family meeting was held to discuss:Diagnosis and Prognosis, Goals of Care, Treatment Options, Symptom Management, Advanced Care Planning, Prior Expressed Wishes, and Discharge Plan Objective: Physical Exam BP (!) 165/67 Pulse 64 Temp 36.6 C (97.9 F) (Oral) Resp 15 Ht 6' 2" (1.88 m) Wt 123 lb (55.8 kg) SpO2 95% BMI 15.79 kg/m Physical Exam HENT: Head: Atraumatic. Nose: Nose normal. Mouth/Throat: Mouth: Mucous membranes are moist. Eyes: General: No scleral icterus. Pupils: Pupils are equal, round, and reactive to light. Cardiovascular: Rate and Rhythm: Normal rate and regular rhythm. Pulses: Normal pulses. Heart sounds: Normal heart sounds. No murmur heard. Pulmonary: Effort: Pulmonary effort is normal. Breath sounds: Normal breath sounds. No stridor. No wheezing or rhonchi. Abdominal: General: Bowel sounds are normal. Palpations: Abdomen is soft. Musculoskeletal: General: No swelling. Cervical back: Neck supple. Right lower leg: No edema. Left lower leg: No edema. Skin: General: Skin is warm. Coloration: Skin is not jaundiced. Neurological: Comments: No response to verbal stimuli Psychiatric: Comments: No agitation Current Medications: Inpatient medications reviewed: yes Home medications reviewed: yes OARRS Reviewed: Yes-11/06/23 Lorazepam 0.5 # 4 24 Hour PRN Meds: no PRN medications in 24 hours Results/Verification of Data Review Objective data reviewed (be specific which labs, imaging reports with dates reviewed): - labs, imaging, OARRS reviewed 12/07/23 Data in Support of Terminal Illness: Is patient hospice appropriate? TBD Transition Note Initiated: yes. 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 year old male ordered vancomycin for Pneumonia (CAP); consult from Dr. Stout to manage therapy. Patient Active Problem List Diagnosis Date Noted Pneumonia due to infectious organism, unspecified laterality, unspecified part of lung 12/06/2023 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) 09/17/2023 COVID-19 09/10/2023 Severe malnutrition (CMS/HCC) ([facility]) 01/20/2023 Hyperglycemia 01/19/2023 Hyperosmolar hyperglycemic state (HHS) ([facility]) 01/17/2023 New onset type 2 diabetes mellitus ([facility]) ([facility]) 03/01/2022 Patient has no known allergies. CREATININE Date Value Ref Range Status 12/06/2023 1.35 (H) 0.66 - 1.25 mg/dL Final 03/03/2022 1.12 0.52 - 1.25 mg/dL Final UREA NITROGEN Date Value Ref Range Status 12/06/2023 47 (H) 9 - 20 mg/dL Final Auto WBC Date Value Ref Range Status 12/06/2023 8.4 3.6 - 10.7 10*3/uL Final Ht Readings from Last 1 Encounters: 12/06/23 1.88 m (6' 2") Wt Readings from Last 1 Encounters: 12/06/23 55.8 kg (123 lb) Plan: Will initiate vancomycin 750 mg IV every 24 hours based on predicted AUC of 494 mg/L.hr . Goal AUC is 400-600 mg/L.hr. Random level will be scheduled for 06:00 on 12/08/23. Thank you for the consult. Will continue to follow. documented in this encounter [facility] 12-08-2023 Note Formatting of this n ote might be different from the original. Care Managment Initial Assessment Date: 12/08/2023 Patient Name: Tita Keith : 1935 Patient Information Source of Information: Patient Perioperative Nurse Name/Contact Information: Kayleigh Scott dtr & MAY Cognition/Language: Confused at baseline Permission given to speak with patient metals sales representative/caregiver as indicated: Confirmation of Payer with patient/family: Yes Payer Name: [place] Medicare : Yes Confirmation of Primary Care Physician: Confirmed PCP Name: Marj Plasencia Seen in last 2 years?: Yes Primary Caregiver: Other (Comment) ([facility] staff) If assistance needed, confirmed caregiver ready, willing and able to care for patient at discharge: Yes Confirmed with: [facility] staff Living Arrangements Current Residence: Number of Floors Number of Entry Steps: Bed/Bath Levels: Facility: [facility] Facility Name: [facility] Plan to Return: Yes Lives with: (other residents of [facility]) Support Systems: Children, Family members, Comments (Other) (F staff) Activities of Daily Living Ambulation: Assistance (FWW) Bathing/Dressing: Assistance Elimination/Continence/Toileting: Assistance Feeding: Independent Who Assists with Activities of Daily Living: ECF staff Instrumental Activities of Daily Living Prescription Coverage: Yes Pharmacy Used: [facility] pharmacy Medication Management: Medication dispenser Who assists with medication securing and setup?: [facility] staff Transportation/Shopping: Assistance Provider Transportation Mode: Wheelchair van, Senior/disability transport service Needs Assistance with Transportation at Discharge: Yes ( will setup transport for return to facility) Meal Preparation: Assistance Provider Meal Prep Assistance Provider Name: [facility] staff Laundry/Cleaning: Assistance Provider Laundry/Cleaning Assistance Provider Name: [facility] staff Finances/Bill Paying: Assistance Provider Finances/Bill Payer Assistance Provider Name: DaughterKayleigh Communication: Independent Types of Care Services/Equipment Utilized Care Services: (N/A) Dialysis Type: NA Durable Medical Equipment: Walker, Glucometer Patient's Goal/Discharge Plan Patient expects to be discharged to: Discharge Planning Actions: Continue to follow, [facility] Facility referral indicated [place] of choice: [place] of [place] discussed Patient's Choice Rights and [employer] and Collaborative Relationships Disclosed as Indicated for Post-Acute Care: Yes Interdisciplinary Team Engagement: Social Work Referral for: Additional Information: Spoke with patient's daughter, Kayleigh Scott, at [phone]. Introduced self and role. Patient admitted for SOB, fever, pneumonia - RSV. Recently, he was hospice, but this was revoked by family to treat him for skin cancer. Reportedly, the patient is comfort care, but the facility is providing him with antibiotics. Daughter does not wish to reenroll patient into hospice at this time but if his condition declines she would be open to hospice discussions. ID consulted. PT/OT recommending SNF LOC. Return referral to [facility] submitted via [facility]. [facility] will continue to follow. Ru Duckworth RN [facility] 12-08-2023 Note Formatting of this n ote might be different from the original. 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 as indicated: Confirmation of Payer with patient/family: Yes Payer Name: [employer] Medicare : Yes Confirmation of Primary Care Physician: Confirmed PCP Name: Marj Plasencia Seen in last 2 years?: Yes Primary Caregiver: Other (Comment) (F staff) If assistance needed, confirmed caregiver ready, willing and able to care for patient at discharge: Yes Confirmed with: [facility] staff Living Arrangements Current Residence: Number of Floors Number of Entry Steps: Bed/Bath Levels: Facility: [facility] Facility Name: [facility] Plan to Return: Yes Lives with: (other residents of [facility]) Support Systems: Children, Family members, Comments (Other) (F staff) Activities of Daily Living Ambulation: Assistance (FWW) Bathing/Dressing: Assistance Elimination/Continence/Toileting: Assistance Feeding: Independent Who Assists with Activities of Daily Living: F staff Instrumental Activities of Daily Living Prescription Coverage: Yes Pharmacy Used: [facility] pharmacy Medication Management: Medication dispenser Who assists with medication securing and setup?: ECF staff Transportation/Shopping: Assistance Provider Transportation Mode: Wheelchair van, Senior/disability transport service Needs Assistance with Transportation at Discharge: Yes (SW will setup transport for return to facility) Meal Preparation: Assistance Provider Meal Prep Assistance Provider Name: ECF staff Laundry/Cleaning: Assistance Provider Laundry/Cleaning Assistance Provider Name: ECF staff Finances/Bill Paying: Assistance Provider Finances/Bill Payer Assistance Provider Name: DaughterKayleigh Communication: Independent Types of Care Services/Equipment Utilized Care Services: (N/A) Dialysis Type: NA Durable Medical Equipment: Walker, Glucometer Patient's Goal/Discharge Plan Patient expects to be discharged to: Discharge Planning Actions: Continue to follow, [facility] Facility referral indicated [place] of [facility]: [place] of [place] discussed Patient's Choice Rights and [employer] and Collaborative Relationships Disclosed as Indicated for Post-Acute Care: Yes Interdisciplinary Team Engagement: Social Work Referral for: Additional Information: Spoke with patient's daughter, Kayleigh Scott, at [phone]. Introduced self and role. Patient admitted for SOB, fever, pneumonia - RSV. Recently, he was hospice, but this was revoked by family to treat him for skin cancer. Reportedly, the patient is comfort care, but the facility is providing him with antibiotics. Daughter does not wish to reenroll patient into hospice at this time but if his condition declines she would be open to hospice discussions. ID consulted. PT/OT recommending SNF LOC. Return referral to [facility] submitted via [facility]. [facility] will continue to follow. Ru Duckworth RN [facility] [place] 12-07-2023 Emergency department Note Dietary bringing pt's tray to 2 east. Radha Torres RN 12/07/23 1578 [facility] [place] 12-07-2023 Emergency department Note Dietary bringing pt's tray to 2 east. Radha Torres RN 12/07/23 1843 Pt received ensure and is drinking it independently. Radha Torres RN 12/07/23 1826 Updated pt's RN Carly. Radha Torres RN 12/07/23 1818 Ordered pt dinner. Radha Torres RN 12/07/23 1801 Pt sleeping with non-labored respirations. Radha Torres RN 12/07/23 1656 Pt ate about 30% of tray. Pt pulling at leads again. Radha Torres RN 12/07/23 1429 Pt more calm post medication. Assisted pt to eat lunch. Radha Torres RN 12/07/23 1254 #20 left posterior forearm placed in 1 attempt after pt removed his IV. Pt tolerated well. Site wrapped in gauze for protection. Corina Osorio, EMT 12/07/23 1231 Let physician know about pt's agitation and non-cooperation. Radha Torres RN 12/07/23 1213 Rounded on pt. Pt removed last IV and took self off all telemetry. Pt refusing IV. Radha Torres RN 12/07/23 1210 Pt removed all monitoring devices and is not cooperative with staff in replacing them. 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 Corina Osorio EMT 12/07/23 1204 ID and daughter @ bedside. Radha Torres RN 12/07/23 0943 PT @ bedside. Radha Torres RN 12/07/23 0840 [facility] (SNF) staff notified about pt admission and status. Daughter @ bedside feeding pt. Daughter updated on POC. Radha Torres RN 12/07/23 0822 Rounded on pt. Pt pulled out one IV and all telemetry leads/SPO2. Pt confused however calm and cooperative. Placed pt back on tele and wrapped remaining IV site loosely w/Kerlix. Re-oriented pt to place and situation. Pt clean and dry. Urine collection in place and functioning well. Gave pt a clean gown. Propped pt to rt side. Ordered pt breakfast. Radha Torres RN 12/07/23 0757 EMERGENCY DEPARTMENT ENCOUNTER Pt Name: Tita Keith Birthdate 1935 Date of evaluation: 12/06/2023 ED Provider: Lala Lerma MD CHIEF COMPLAINT Chief Complaint Patient presents with Shortness of Breath Fever Pnuemonia HISTORY OF PRESENT ILLNESS (Location/Symptom, Timing/Onset, Context/Setting, Quality, Duration, Modifying Factors, Severity) Note limiting factors. I wore appropriate PPE for the entirety of this encounter. HPI Tita Keith is a 88 y.o. who presents to the emergency department with a chief complaint of fever in the setting of a pneumonia. He presents from his snf. Recently, he was hospice, but this was revoked by family. Reportedly, the patient is comfort care, but the facility is providing him with antibiotics. EMS reports that he was satting around 93%. History is limited secondary to the patient's AMS. Nursing Notes were reviewed. Limitations to history: AMS Outside historians: EMS REVIEW OF SYSTEMS Review of Systems Pertinent positives and negatives as per HPI. PAST MEDICAL HISTORY Past Medical History: Diagnosis Date Dementia (HCC) Diabetes mellitus (HCC) Hyperlipidemia Hypertension SURGICAL HISTORY Past Surgical History: Procedure Laterality Date BACK SURGERY CURRENT MEDICATIONS Previous Medications CHOLECALCIFEROL (VITAMIN D-3) 50 MCG (1999 UT) CAPSULE Take 2,000 Units by mouth. DEXAMETHASONE (DECADRON) 6 MG TABLET Take 1 tablet (6 mg) by mouth daily for 3 days. DOCUSATE SODIUM (COLACE) 100 MG CAPSULE Take 100 mg by mouth 2 times daily. ERYTHROMYCIN (ROMYCIN) 5 MG/GM OPHTHALMIC OINTMENT Apply 1 Application to left eye Nightly. Apply Amount per Dose: 0.5 inch (~1 cm) per dose. INSULIN GLARGINE (LANTUS) 100 UNIT/ML PEN Inject 14 Units under the skin Nightly. LISINOPRIL 20 MG TABLET Take 20 mg by mouth daily. LORAZEPAM (ATIVAN) 0.5 MG TABLET Take 0.25 mg by mouth 4 times daily as needed for anxiety. MELATONIN 3 MG CAPSULE Take 6 mg by mouth Nightly. MIRTAZAPINE (REMERON) 15 MG TABLET Take 15 mg by mouth Nightly. MORPHINE 10 MG/5ML SOLUTION Take 20 mg by mouth every 2 hours as needed for severe pain (7-10). QUETIAPINE (SEROQUEL) 25 MG TABLET Take 0.5 tablets (12.5 mg) by mouth 2 times daily. TAMSULOSIN (FLOMAX) 0.4 MG 24 HR CAPSULE Take 0.8 mg by mouth Nightly. ALLERGIES Patient has no known allergies. FAMILY HISTORY No family history on file. SOCIAL HISTORY Social History Socioeconomic History Marital status: Tobacco Use Smoking status: Never Smokeless tobacco: Never Substance and Sexual Activity Alcohol use: Not Currently Drug use: Never Social Determinants of Health Transportation Needs: No Transportation Needs (01/18/2023) PRAPARE - Transportation Lack of Transportation (Medical): No Lack of Transportation (Non-Medical): No Intimate Partner Violence: Patient Declined (09/11/2023) Humiliation, Afraid, Rape, and Kick questionnaire Fear of Current or Ex-Partner: Patient declined Emotionally Abused: Patient declined Physically Abused: Patient declined Sexually Abused: Patient declined Housing Stability: Low Risk (01/18/2023) Housing Stability Vital Sign Unable to Pay for Housing in the Last Year: No Number of Places Lived in the Last Year: 2 Unstable Housing in the Last Year: No SCREENINGS [place] Coma Scale Best Eye Response: To verbal stimuli Best Verbal Response: Inappropriate words Best Motor Response: Localizes pain [place] Coma Scale Score: 11 PHYSICAL EXAM ED Triage Vitals Temp Pulse Resp BP -- -- -- -- SpO2 Temp src Heart Rate Source Patient Position -- -- -- -- BP Location FiO2 (%) -- -- General-elderly, warm to the touch, no acute distress, nontoxic-appearing HEENT- atraumatic, normocephalic Neck- no meningismus, no obvious masses Respiratory- rhonchi noted on the L, no respiratory distress Cardiovascular- borderline tachycardic Abdomen- soft, non-tender, no rebound or guarding MSK- thin muscle bulk, no gross deformities Skin- non-diaphoretic, no obvious rashes or lesions Neuro- alert, CN2-12 grossly intact, moving all extremities DIAGNOSTIC RESULTS Interpretation per the Radiologist below, if available at the time of this note: CT chest angiogram w and/or wo IV contrast Final Result 1. No evidence of large vessel or central pulmonary emboli. 2. Mucous plugging and patchy atelectasis, infiltrates or postinflammatory change in the bilateral lower lobes, right greater than left, of uncertain chronicity. Correlate clinically. 3. Wedge-shaped compression deformities in mid thoracic vertebral bodies may represent insufficiency change, but age-indeterminate. Report Dictated on Electronically Signed By: Mark Murrell MD Electronically Signed Date/Time: 12/06/2023 6:26 PM EST XR chest 1 view Final Result No radiographic acute cardiopulmonary process. Report Dictated on Electronically Signed By: Iman Arriaga MD Electronically Signed Date/Time: 12/06/2023 4:36 PM EST LABS: Labs Reviewed SARS-COV-2, FLU A/B, AND RSV COMBO - Abnormal Result Value SARS-CoV-2 Not Detected Respiratory Syncytial Virus Detected (*) Influenza A Not Detected Influenza B Not Detected Narrative: Methodology: real-time, RT-PCR The SARS-CoV-2, Flu A/B, and RSV Combo assay is intended for in vitro diagnostic use under the FDA Emergency Use Authorization (EUA). This test has not been FDA cleared or approved. In compliance with this authorization, please visit www.fda.gov/media/066300/download or www.fda.gov/media/150503/download to access the applicable information sheets. CBC WITH AUTO DIFFERENTIAL - Abnormal Auto WBC 8.4 RBC 4.11 (*) Hemoglobin 12.6 (*) Hematocrit 36.4 (*) MCV 88.5 MCH 30.6 MCHC 34.6 RDW 14.0 Platelets 144 MPV 8.9 nRBC 0.0 Neutrophils Relative 86.7 (*) Lymphocytes Relative 5.8 (*) Monocytes Relative 7.3 Eosinophils Relative 0.1 (*) Basophils Relative 0.1 Neutrophils Absolute 7.3 (*) Lymphocytes Absolute 0.5 (*) Monocytes Absolute 0.6 Eosinophils Absolute 0.0 Basophils Absolute 0.0 COMPREHENSIVE METABOLIC PANEL - Abnormal SODIUM 136 POTASSIUM 4.5 CHLORIDE 101 CARBON DIOXIDE 25 ANION GAP 10 UREA NITROGEN 47 (*) CREATININE 1.35 (*) GLUCOSE 200 (*) CALCIUM 9.4 AST (SGOT) 29 ALT 28 ALKALINE PHOSPHATASE 99 ALBUMIN 3.8 BILIRUBIN, TOTAL 0.7 TOTAL PROTEIN 7.1 eGFR 50.5 (*) LACTIC ACID WITH REFLEX - Normal LACTIC ACID 1.4 BLOOD CULTURE BLOOD CULTURE COMPLETE URINALYSIS WITH REFLEX TO CULTURE Narrative: The following orders were created for panel order Urinalysis Complete with reflex to Culture. Procedure Abnormality Status --------- ------ Complete Urinalysis[[id number]] Please view results for these tests on the individual orders. COMPLETE URINALYSIS TROPONIN, WITH SERIAL REFLEX All other labs were within normal range or not returned as of this dictation. EMERGENCY DEPARTMENT COURSE/Reval Vitals: Vitals: 12/06/23 1802 12/06/23 1810 12/06/23 18312/06/23 190 BP: 133/74 133/74 136/82 123/82 BP Location: Patient Position: Pulse: 95 93 89 84 Resp: Temp: SpO2: 92% 93% 93% 92% Weight: Diagnoses as of 12/06/231948 Pneumonia due to infectious organism, unspecified laterality, unspecified part of lung Sepsis, due to unspecified organism, unspecified whether acute organ dysfunction present (HCC) RSV (acute bronchiolitis due to respiratory syncytial virus) Medications piperacillin-tazobactam (Zosyn) 4.5 g in sodium chloride 0.9 % 100 mL IVPB Mini-Bag Plus (0 g IntraVENous Stopped 12/06/23 1716) vancomycin IVPB 1500 mg in 250 mL NS (premix) (1,500 mg IntraVENous New Bag 12/06/23 1640) sodium chloride 0.9 % bolus 1,674 mL (0 mL IntraVENous Stopped 12/06/23 1740) iopamidol (Isovue-370) 76 % injection 75 mL (75 mL IntraVENous Given 12/06/23 1744) EMERGENCY DEPARTMENT COURSE and DIFFERENTIAL DIAGNOSIS/Reval/MDM: Vitals: Vitals: 12/06/23 1802 12/06/23 1810 12/06/23183112/06/23 190 BP: 133/74 133/74 136/82 123/82 BP Location: Patient Position: Pulse: 95 93 89 84 Resp: Temp: SpO2: 92% 93% 93% 92% Weight: Diagnoses as of 12/06/231948 Pneumonia due to infectious organism, unspecified laterality, unspecified part of lung Sepsis, due to unspecified organism, unspecified whether acute organ dysfunction present (HCC) RSV (acute bronchiolitis due to respiratory syncytial virus) ED Medications managed: Medications piperacillin-tazobactam (Zosyn) 4.5 g in sodium chloride 0.9 % 100 mL IVPB Mini-Bag Plus (0 g IntraVENous Stopped 12/06/23 1716) vancomycin IVPB 1500 mg in 250 mL NS (premix) (1,500 mg IntraVENous New Bag 12/06/23 1640) sodium chloride 0.9 % bolus 1,674 mL (0 mL IntraVENous Stopped 12/06/23 1740) iopamidol (Isovue-370) 76 % injection 75 mL (75 mL IntraVENous Given 12/06/23 174) SEP-1 CORE MEASURE DATA SIRS Criteria Sepsis Criteria Severe Sepsis Criteria Septic Shock Criteria Must meet 2: [] Temperature > 100.4 F (38 C) or < 96.8 F (36 C) [] HR > 90 [] RR > 20 [] WBC > 12 or < 4 or 10% bands Must be confirmed or suspected to move forward with diagnosis of sepsis. [] Infection Confirmed or Suspected. [] No infection present. Patient does not meet criteria for Sepsis. Must meet 1: [] Lactate > 2 or [] Signs of Organ Dysfunction: - SBP < 90 or MAP < 65 - Altered mental status - Creatinine > 2 or increased from baseline - Urine Output < 0.5 ml/kg/hr - Bilirubin > 2 - INR > 1.5 - Platelets < 100,000 - Acute Respiratory Failure as evidenced by new need for NIPPV or mechanical ventilation [] No criteria met for Severe Sepsis. Must meet 1: [] Lactate = or > 4 or [] SBP < 90 or MAP < 65 for at least two readings in the first hour after fluid bolus administration [] No criteria met for Septic Shock. No data found. Recent Labs 12/06/23 1621 WBC 8.4 LACTATE 1.4 CREATININE 1.35* BILITOT 0.7 PLT 144 Sepsis Identified at 1630 hours. Fluid Resuscitation Rational: at least 30mL/kg based on entered actual body weight at time of triage Infection Source: Pulmonary - Nosocomial Reassessment Exam: Not applicable. Patient does not have Septic Shock. Lala Lerma MD EKG interpreted by me: 12-06-2023. Time 1936. Rate 95 normal sinus rhythm. Normal axis. TERE 169, QRS 74, QTc 420. No STEMI. Discussions with other clinicians: hospitalist, about admission Medical conditions impacting care: dementia Social determinants of health affecting care: Resides at snf Escalation of care, appropriate for: Admission MDM: 88-year-old male presenting with concerns about treatment failure for pneumonia from his snf. He was hemodynamically stable, but not met sepsis criteria. Broad-spectrum antibiotics were started. His x-ray was negative. I had some concern for a radio-occult pneumonia, as well as a PE. Therefore, I got a CT angiogram of his chest for PE. This was negative for PE, but did demonstrate a pneumonia. I clarified the CODE STATUS with the daughter, and it was made DNR CCA. His EKG was reassuring. He was positive for RSV. I spoke with the hospitalist, and had the patient admitted for further care. CRITICAL CARE TIME PROCEDURES: Unless otherwise noted below, none Procedures FINAL IMPRESSION 1. Pneumonia due to infectious organism, unspecified laterality, unspecified part of lung 2. Sepsis, due to unspecified organism, unspecified whether acute organ dysfunction present (HCC) 3. RSV (acute bronchiolitis due to respiratory syncytial virus) DISPOSITION Admit 12/06/2023 06:39:14 PM PATIENT REFERRED TO: No follow-up provider specified. DISCHARGE MEDICATIONS: New Prescriptions No medications on file (Comment: Please note this report has been produced using speech recognition software and may contain errors related to that system including errors in grammar, punctuation, and spelling, as well as words and phrases that may be inappropriate. If there are any questions or concerns please feel free to contact the dictating provider for clarification.) Lala Lerma MD (electronically signed) Emergency Medicine Physician Lala Lerma MD 12/06/231949 Patient is from [facility] and was sent due to Mental status change, fever of 105 oral, rigors, and is being treated for pneumonia. Patient was started on Cefdinar 300 mg PO BID. [facility] X-ray at the [facility] showed infiltrates. Patient was given Tylenol suppository while EMS was enroute. documented in this encounter [facility] 12-07-2023 Emergency department Note Pt received ensure and is drinking it independently. Radha Torres RN 12/07/23 1826 [facility] 12-07-2023 Emergency department Note Updated pt's RN Carly. Radha Torres RN 12/07/23 1818 [facility] 12-07-2023 Emergency department Note Ordered pt dinner. Radha Torres RN 12/07/23 1801 [facility] 12-07-2023 Emergency department Note Pt sleeping with non-labored respirations. Radha Torres RN 12/07/23 1656 [facility] 12-07-2023 Consult note Associated Order (s): IP CONSULT TO DIETITIAN Nutrition Assessment Type and Reason for Visit: Initial, Consult (poor PO) Nutrition Recommendations/Plan: Modify diet to Adult diet Dysphagia - Minced and Moist; 5 carb choices (75 gm/meal); No Drinking Straws per MNT protocol. Monitor need for CLAIMS PROCESSOR consult. Initiate Ensure high protein TID per MNT protocol. Ensure High Protein provides 160 kcals, 16 g protein per serving. Prefers chocolate flavor. Please document pt's PO intakes via flowsheet to accurately assess PO intake adequacy. Monitor intakes, weights, and labs weekly. RD will follow. Malnutrition Assessment: Malnutrition Status: Severe malnutrition Context: Chronic Illness Findings of the 6 clinical characteristics of malnutrition: Energy Intake: 75% or less estimated energy requirements for 1 month or longer Weight Loss: Unable to assess Body Fat Loss: Severe body fat loss Orbital, Triceps, Buccal region Muscle Mass Loss: Severe muscle mass loss Temples (temporalis), Clavicles (pectoralis & deltoids), Calf (gastrocnemius), Hand (interosseous) Fluid Accumulation: Mild Extremities Machine Attendant Strength: Not Performed Nutrition Assessment: Pt was admitted from facility with Shortness of breath and fever here with RSV. Pt appeared weak and sleepy during RD visit today. Pt ate about 26-50% of his lunch tray this afternoon. Pt unable to provide much history this date. RD weighed via bed scale at 146.9#, however the ED bed scale was not zeroed prior to weighing. 12/06 wt-123#. Previous weights at the facility 127-128#. Estimated Daily Nutrient Needs: Energy Requirements Based On: Kcal/kg Weight Used for Energy Requirements: Current Weight for Energy Calculation (kg): 56 kg Total Energy Requirements (kcals/day): 5457-7268 kcals (30-35 kcals/kg) Weight Used for Protein Requirements: Current Weight in Kg Used for Protein Requirements: 56 kg Estimated Total Protein (g/day): 67-84 (1.2-1.5g/kg) Estimated Daily Total Fluid (ml/day): 1700 ml/day or per MD Nutrition Related Findings: non pitting generalized edema; moderate RUE edema; BUN 47, Cr 1.35, GFR 50.5, glucose 158, 108, 236, Troponin 0.070, NaCl-75 ml/hr Wound Type: Skin Tears (upper face) Current Nutrition Therapies: Adult diet Dysphagia - Minced and Moist; 5 carb choices (75 gm/meal); No Drinking Straws Current Oral Intake Average Meal Intake: 26-50% Average Supplements Intake: None Ordered Anthropometric Measures: Height: 188 cm (6' 2") Current Body Weight: 55.8 kg (123 lb) Weight Source: Not Specified Admission Body Weight: 55.8 kg (123 lb) (stated) Usual Body Weight: 57.6 kg (127 lb) (127-128# at facility) % Weight Change (Calculated): -3.1 [place] Body Weight (lbs) (Calculated): 190 lbs [place] Body Weight (Kg) (Calculated): 86 kg % [place] Body Weight (Calculated): 64.7 % BMI (kg/m2) (Calculated): 15.8 Weight Adjustment For: No Adjustment BMI Categories: Underweight (BMI less than 22) age over 65 Nutrition Diagnosis: Severe malnutrition related to inadequate protein-energy intake, cognitive or neurological impairment as evidenced by poor intake prior to admission, severe loss of subcutaneous fat, severe muscle loss, localized or generalized fluid accumulation Increased nutrient needs related to increase demand for energy/nutrients, impaired respiratory function as evidenced by BMI, other (comment) (estimated anabolic needs) Nutrition Interventions: Nutrition Education/Counseling: No recommendation at this time Coordination of Nutrition Care: Continue to monitor while inpatient Plan of Care discussed with: Patient Goals: Goals: PO intake 75% or greater, by next RD assessment Nutrition Monitoring and Evaluation: Behavioral-Environmental Outcomes: None Identified Food/Nutrient Intake Outcomes: Diet Advancement/Tolerance, Food and Nutrient Intake, Supplement Intake Physical Signs/Symptoms Outcomes: Biochemical Data, Chewing or Swallowing, GI Status, Fluid Status or Edema, Nutrition Focused Physical Findings, Skin, Weight Discharge Planning: Continue Oral Nutrition Supplement Dian Tipton RD Contact: *[phone] or via Secure Chat [facility] 12-07-2023 Emergency department Note Pt ate about 30% of tray. Pt pulling at leads again. Radha Torres RN 12/07/23 1429 [facility] 12-07-2023 Consult note Associated Order (s): IP CONSULT TO INFECTIOUS DISEASES Images from the original note were not included. [facility] - Infectious Diseases Advanced Practice Provider Consult Note Reason for Consult: Bilateral pna History of Present Illness: This is an 88 yo M with a PMH of dementia, DM, HLD and HTN who presents to [facility] ED on 12/06 from his nursing facility for c/o fevers, chills and cough for the last 4 days. Pt has dementia and is poor historian. Does endorse fever and chills currently. Endorses cough. Denies abd pain, n/v/d. Pt's daughter assists in history, states his cough and fevers began on Sunday, and have worsened. His highest temp recorded at his nursing facility was 105F. He was given Tylenol rectally prior to ED arrival at . States when he coughs, it is sometimes wet with white colored phlegm. Daughter states his L eye always has lower lid drooping, but the eye discharge is new as of this week. Afebrile. Currently on room air. WBC 8.4. CXR without acute process. CTA chest with no evidence of PE, but with mucous plugging/patchy atelectasis/infiltrate in b/l lower lobes. Pt tested + for RSV on 12/06. Blood cx collected. Started on empiric vanc and zosyn by primary. ID consulted for bilateral pneumonia. Past Medical History: Past Medical History: Diagnosis Date Dementia (HCC) Diabetes mellitus (HCC) Hyperlipidemia Hypertension Past Surgical History: Past Surgical History: Procedure Laterality Date BACK SURGERY Current Medications: Current Facility-Administered Medications Medication Dose Route Frequency Provider Last Rate Last Admin acetaminophen (Tylenol) tablet 650 mg 650 mg Oral q6h PRN Kayleigh M Esterle, DO Or acetaminophen (Tylenol) suppository 650 mg 650 mg Rectal q6h PRN Kayleigh M Esterle, DO dextrose 5 % infusion 100 mL/hr IntraVENous PRN Kayleigh M Esterle, DO dextrose 50 % solution 12.5 g 12.5 g IntraVENous PRN Kayleigh M Esterle, DO docusate sodium (Colace) capsule 100 mg 100 mg Oral BID Kayleigh M Esterle, DO 100 mg at 12/07/23 0938 enoxaparin (Lovenox) syringe 30 mg 30 mg SubCUTAneous Daily Kayleigh M Esterle, DO 30 mg at 12/07/23 0938 glucagon (human recombinant) injection 1 mg 1 mg IntraMUSCular PRN Kayleigh M Esterle, DO glucose oral gel 15 g 15 g Oral PRN Kayleigh M Esterle, DO haloperidol lactate (Haldol) injection 1 mg 1 mg IntraMUSCular q6h PRN Rai Ray MD 1 mg at 12/07/23 1221 hydrALAZINE (Apresoline) injection 10 mg 10 mg IntraVENous q4h PRN Kayleigh M Esterle, DO insulin glargine (Lantus) injection 14 Units 14 Units SubCUTAneous Nightly Kayleigh M Esterle, DO Insulin Lispro (Humalog) injection 0-12 Units 0-12 Units SubCUTAneous TID WC Kayleigh M Esterle, DO 2 Units at 12/07/23 1313 And Insulin Lispro (Humalog) injection 0-12 Units 0-12 Units SubCUTAneous Nightly Kayleigh M Esterle, DO ipratropium-albuterol (Duo-Neb) 0.5-2.5 mg/3 mL nebulizer solution 3 mL 3 mL Nebulization Q4H while awake Kayleigh M Esterle, DO lisinopril tablet 20 mg 20 mg Oral Daily Kayleigh M Esterle, DO 20 mg at 12/07/23 0938 LORazepam (Ativan) tablet 0.25 mg 0.25 mg Oral 4x daily PRN Kayleigh M Esterle, DO Melatonin disintegrating tablet 5 mg 5 mg Oral Nightly Kayleigh M Esterle, DO mirtazapine (Remeron) tablet 15 mg 15 mg Oral Nightly Kayleigh M Esterle, DO morphine 10 MG/0.5ML concentrated solution 20 mg 20 mg Oral q2h PRN Kayleigh M Esterle, DO naloxone (Narcan) injection 0.4 mg 0.4 mg IntraVENous q5 min PRN Kayleigh M Esterle, DO ondansetron ODT (Zofran-ODT) disintegrating tablet 4 mg 4 mg Oral q8h PRN Kayleigh M Esterle, DO Or ondansetron (Zofran) injection 4 mg 4 mg IntraVENous q6h PRN Kayleigh M Esterle, DO piperacillin-tazobactam (Zosyn) 3,375 mg in sodium chloride 0.9 % 50 mL IVPB Mini-Bag Plus 3,375 mg IntraVENous q8h Kayleigh M Esterle, DO Stopped at 12/07/23 0931 polyethylene glycol (PEG) 3350 (Miralax) packet 17 g 17 g Oral Daily PRN Kayleigh M Esterle, DO QUEtiapine (SEROquel) tablet 12.5 mg 12.5 mg Oral BID Kayleigh M Esterle, DO 12.5 mg at 12/07/23 0938 sodium chloride 0.9 % infusion 5-250 mL/hr IntraVENous PRN Kayleigh M Esterle, DO sodium chloride 0.9 % infusion 75 mL/hr IntraVENous Continuous Kayleigh M Esterle, DO 75 mL/hr at 12/07/23 0821 75 mL/hr at 12/07/23 0821 sodium chloride 0.9% (NS) flush 10 mL 10 mL IntraVENous 2 times per day Kayleigh M Esterle, DO 10 mL at 12/07/23 0900 sodium chloride 0.9% (NS) flush 10 mL 10 mL IntraVENous PRN Kayleigh M Esterle, DO tamsulosin (Flomax) 24 hr capsule 0.8 mg 0.8 mg Oral Nightly Kayleigh M Esterle, DO vancomycin (Vancocin) 750 mg in sodium chloride 0.9 % 250 mL IVPB 750 mg IntraVENous q24h Kayleigh M Esterle, DO Current Outpatient Medications Medication Sig Dispense Refill cholecalciferol (Vitamin D-3) 50 MCG (1999 UT) capsule Take 2,000 Units by mouth. dexAMETHasone (Decadron) 6 MG tablet Take 1 tablet (6 mg) by mouth daily for 3 days. docusate sodium (Colace) 100 MG capsule Take 100 mg by mouth 2 times daily. erythromycin (Romycin) 5 MG/GM ophthalmic ointment Apply 1 Application to left eye Nightly. Apply Amount per Dose: 0.5 inch (~1 cm) per dose. insulin glargine (Lantus) 100 UNIT/ML pen Inject 14 Units under the skin Nightly. lisinopril 20 MG tablet Take 20 mg by mouth daily. LORazepam (Ativan) 0.5 MG tablet Take 0.25 mg by mouth 4 times daily as needed for anxiety. Melatonin 3 MG capsule Take 6 mg by mouth Nightly. mirtazapine (Remeron) 15 MG tablet Take 15 mg by mouth Nightly. morphine 10 MG/5ML solution Take 20 mg by mouth every 2 hours as needed for severe pain (7-10). QUEtiapine (SEROquel) 25 MG tablet Take 0.5 tablets (12.5 mg) by mouth 2 times daily. 30 tablet 0 tamsulosin (Flomax) 0.4 MG 24 hr capsule Take 0.8 mg by mouth Nightly. Allergies: No Known Allergies Social History: Social History Socioeconomic History Marital status: Spouse name: Not on file Number of children: Not on file Years of education: Not on file Highest education level: Not on file Occupational History Not on file Tobacco Use Smoking status: Never Smokeless tobacco: Never Substance and Sexual Activity Alcohol use: Not Currently Drug use: Never Sexual activity: Not on file Other Topics Concern Not on file Social History Narrative Not on file Social Determinants of Health Financial Resource Strain: Not on file Food Insecurity: Not on file Transportation Needs: No Transportation Needs (01/18/2023) PRAPARE - Transportation Lack of Transportation (Medical): No Lack of Transportation (Non-Medical): No Physical Activity: Not on file Stress: Not on file Social Connections: Not on file Intimate Partner Violence: Patient Declined (09/11/2023) Humiliation, Afraid, Rape, and Kick questionnaire Fear of Current or Ex-Partner: Patient declined Emotionally Abused: Patient declined Physically Abused: Patient declined Sexually Abused: Patient declined Housing Stability: Low Risk (01/18/2023) Housing Stability Vital Sign Unable to Pay for Housing in the Last Year: No Number of Places Lived in the Last Year: 2 Unstable Housing in the Last Year: No Family History: No family history on file. Review of Systems: Review of Systems Constitutional: Positive for chills and fever. Negative for activity change and appetite change. HENT: Negative for congestion, ear discharge, ear pain, facial swelling, hearing loss, sore throat, trouble swallowing and voice change. Eyes: Positive for discharge. Negative for photophobia, pain, redness, itching and visual disturbance. Respiratory: Positive for cough and shortness of breath. Negative for apnea, choking and wheezing. Cardiovascular: Negative for chest pain and leg swelling. Gastrointestinal: Negative for abdominal distention, abdominal pain, constipation, diarrhea, nausea and vomiting. Genitourinary: Negative for difficulty urinating, dysuria, flank pain, frequency, hematuria and urgency. Musculoskeletal: Negative for arthralgias, gait problem, joint swelling, neck pain and neck stiffness. Skin: Negative for color change, rash and wound. Neurological: Negative for dizziness, speech difficulty, weakness, light-headedness, numbness and headaches. Psychiatric/Behavioral: Negative for agitation, behavioral problems and confusion. Vitals: Patient Vitals for the past 24 hrs: BP Temp Temp src Pulse Resp SpO2 Height Weight 12/07/23 1400 -- -- -- -- -- -- 1.88 m (6' 2") 66.6 kg (146 lb 14.4 oz) 12/07/23 1131 122/77 -- -- 88 16 100 % -- -- 12/07/23 0757 128/84 36.6 C (97.8 F) Oral 64 16 97 % -- -- 12/07/23 0530 (!) 165/67 36.6 C (97.9 F) Oral 64 15 95 % -- -- 12/07/23 0130 (!) 160/71 -- -- 59 13 96 % -- -- 12/07/23 0005 (!) 178/63 -- -- 69 19 95 % -- -- 12/06/23 2232 133/65 -- -- 65 15 90 % -- -- 12/06/232023 (!) 152/135 -- -- 81 16 93 % 1.88 m (6' 2") 55.8 kg (123 lb) 12/06/23 1902 123/82 -- -- 84 25 92 % -- -- 12/06/23 1832 136/82 -- -- 89 20 93 % -- -- 12/06/23 1810 133/74 -- -- 93 19 93 % -- -- 12/06/23 1802 133/74 -- -- 95 20 92 % -- -- 12/06/23 1757 (!) 153/90 -- -- 100 19 -- -- -- 12/06/23 1626 -- -- -- -- -- -- -- 55.8 kg (123 lb) 12/06/23 1603 (!) 145/87 37.1 C (98.8 F) -- 110 23 93 % -- -- Physical Exam: Physical Exam Vitals and nursing note reviewed. Constitutional: General: He is not in acute distress. Appearance: He is normal weight. He is ill-appearing. He is not toxic-appearing or diaphoretic. Comments: Pt sitting up in bed, NAD.Responds appropriately, conversant. Daughter at bedside. HENT: Head: Atraumatic. Right Ear: External ear normal. Left Ear: External ear normal. Nose: Nose normal. Mouth/Throat: Mouth: Mucous membranes are moist. Pharynx: Oropharynx is clear. No oropharyngeal exudate. Eyes: General: Right eye: Discharge present. Left eye: Discharge present. Extraocular Movements: Extraocular movements intact. Pupils: Pupils are equal, round, and reactive to light. Comments: L lower eyelid ptosis. Bilateral crusting eye discharge Cardiovascular: Rate and Rhythm: Normal rate and regular rhythm. Pulses: Normal pulses. Heart sounds: Normal heart sounds. No murmur heard. Pulmonary: Effort: Pulmonary effort is normal. No respiratory distress. Breath sounds: Normal breath sounds. No wheezing or rhonchi. Abdominal: General: Abdomen is flat. Bowel sounds are normal. There is no distension. Palpations: Abdomen is soft. Tenderness: There is no abdominal tenderness. There is no guarding. Musculoskeletal: General: No swelling. Normal range of motion. Cervical back: Normal range of motion. No rigidity. Right lower leg: No edema. Left lower leg: No edema. Skin: General: Skin is warm and dry. Coloration: Skin is not jaundiced. Findings: No erythema, lesion or rash. Neurological: Mental Status: He is alert. Mental status is at baseline. Sensory: Sensory deficit present. Motor: Weakness present. Comments: Dementia Psychiatric: Mood and Affect: Mood normal. Behavior: Behavior normal. Labs: Recent Labs 12/06/23 1621 NA 136 K 4.5 CL 101 CO2 25 BUN 47* CREATININE 1.35* GLUCOSE 200* CALCIUM 9.4 PROT 7.1 BILITOT 0.7 ALKPHOS 99 AST 29 ALT 28 Recent Labs 12/06/23 1621 WBC 8.4 HGB 12.6* HCT 36.4* PLT 144 LYMPHOPCT 5.8* MONOPCT 7.3 BASOPCT 0.1 NEUTROABS 7.3* Micro: No results for input(s): "COVID19" in the last 72 hours. 12/07 legionella/strep pneumo antigen in process 12/06 RSV + 12/06 11/23 blood cx collected Lines: PIV Radiography/Echo/Other: 12/06 CT chest angio 1. No evidence of large vessel or central pulmonary emboli. 2. Mucous plugging and patchy atelectasis, infiltrates or postinflammatory change in the bilateral lower lobes, right greater than left, of uncertain chronicity. Correlate clinically. 3. Wedge-shaped compression deformities in mid thoracic vertebral bodies may represent insufficiency change, but age-indeterminate. 12/06 CXR No radiographic acute cardiopulmonary process. Antimicrobials,Start/End Dates: Vancomycin Pip tazo Impression: Acute RSV LRTI of b/l lower lobes without hypoxia Fevers ALFRED Dementia Bilateral conjunctival eye discharge L lower eyelid ptosis Plan: Pt afebrile. Without leukocytosis. Likely his infiltrates/fevers are d/t RSV. Continue supportive care. However, pending further pneumonia work up, can maintain empiric atb coverage with pip tazo and vancomycin. Procal not reliable in setting of ALFRED If MRSA nasal PCR negative, discontinue vancomycin Optimize as able Follow work up/blood cx Likely viral conjunctival discharge on eyelids, but if worsens/does not improve, consider Optho eval. No visual impairment at this time ID to follow Dr Signs to cover this weekend Total time 80 minutes on this day of encounter includes counseling, coordinating plan of care, record and documentation review before and after visit including documentation and time not explicitly included on EMR time stamp for accounting for open encounter. SIDNEY Faulkner, TARA [id number] Work Phone: 12-07-2023 Emergency department Note Pt more calm post medication. Assisted pt to eat lunch. Radha Torres RN 12/07/23 1254 [facility] [place] 12-07-2023 Emergency department Note #20 left posterior forearm placed in 1 attempt after pt removed his IV. Pt tolerated well. Site wrapped in gauze for protection. KB White 12/07/23 1231 [facility] [employer] [place] 12-07-2023 Emergency department Note Let physician know about pt's agitation and non-cooperation. Radha Torres RN 12/07/23 1213 [id number] 12-07-2023 Emergency department Note Rounded on pt. Pt removed last IV and took self off all telemetry. Pt refusing IV. Radha Torres RN 12/07/23 1210 [facility] 12-07-2023 Emergency department Note Pt removed all monitoring devices and is not cooperative with staff in replacing them. 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 Corina Osorio EMT 12/07/23 1204 [facility] 12-07-2023 History and physical note Images from the original note were not included. Attending History and Physical Admit Date: 12/06/2023 PCP: Marj Plasencia CHIEF COMPLAINT: Shortness of breath and fever Reason for Admission: ED physician's notes, patient has dementia and a poor historian History Obtained From: HISTORY OF PRESENT ILLNESS: Tita is a 88 y.o. male with past medical history below who presents with chief complaint listed above. Patient presents to the emergency department with a chief complaint of fever, he was sent here from the nursing snf, he was a hospice care patient until recently when it was revoked. , CTA chest showed no PE, mucous plugging in the lower lobes and chronic changes and possible pneumonia, patient tested positive for RSV on respiratory panel. initial oxygen saturations were 93% on room air, Patient started on empiric antibiotics Zosyn and vancomycin. will admit for further evaluation and management. Past Medical History: Past Medical History: Diagnosis Date Dementia (HCC) Diabetes mellitus (HCC) Hyperlipidemia Hypertension Past Surgical History: Past Surgical History: Procedure Laterality Date BACK SURGERY Social History: Social History Socioeconomic History Marital status: Spouse name: Not on file Number of children: Not on file Years of education: Not on file Highest education level: Not on file Occupational History Not on file Tobacco Use Smoking status: Never Smokeless tobacco: Never Substance and Sexual Activity Alcohol use: Not Currently Drug use: Never Sexual activity: Not on file Other Topics Concern Not on file Social History Narrative Not on file Social Determinants of Health Financial Resource Strain: Not on file Food Insecurity: Not on file Transportation Needs: No Transportation Needs (01/18/2023) PRAPARE - Transportation Lack of Transportation (Medical): No Lack of Transportation (Non-Medical): No Physical Activity: Not on file Stress: Not on file Social Connections: Not on file Intimate Partner Violence: Patient Declined (09/11/2023) Humiliation, Afraid, Rape, and Kick questionnaire Fear of Current or Ex-Partner: Patient declined Emotionally Abused: Patient declined Physically Abused: Patient declined Sexually Abused: Patient declined Housing Stability: Low Risk (01/18/2023) Housing Stability Vital Sign Unable to Pay for Housing in the Last Year: No Number of Places Lived in the Last Year: 2 Unstable Housing in the Last Year: No Family History: No family history on file. Medications Prior to Admission: No current facility-administered medications on file prior to encounter. Current Outpatient Medications on File Prior to Encounter Medication Sig Dispense Refill cholecalciferol (Vitamin D-3) 50 MCG (1999 UT) capsule Take 2,000 Units by mouth. dexAMETHasone (Decadron) 6 MG tablet Take 1 tablet (6 mg) by mouth daily for 3 days. docusate sodium (Colace) 100 MG capsule Take 100 mg by mouth 2 times daily. erythromycin (Romycin) 5 MG/GM ophthalmic ointment Apply 1 Application to left eye Nightly. Apply Amount per Dose: 0.5 inch (~1 cm) per dose. insulin glargine (Lantus) 100 UNIT/ML pen Inject 14 Units under the skin Nightly. lisinopril 20 MG tablet Take 20 mg by mouth daily. LORazepam (Ativan) 0.5 MG tablet Take 0.25 mg by mouth 4 times daily as needed for anxiety. Melatonin 3 MG capsule Take 6 mg by mouth Nightly. mirtazapine (Remeron) 15 MG tablet Take 15 mg by mouth Nightly. morphine 10 MG/5ML solution Take 20 mg by mouth every 2 hours as needed for severe pain (7-10). QUEtiapine (SEROquel) 25 MG tablet Take 0.5 tablets (12.5 mg) by mouth 2 times daily. 30 tablet 0 tamsulosin (Flomax) 0.4 MG 24 hr capsule Take 0.8 mg by mouth Nightly. Allergies: No Known Allergies REVIEW OF SYSTEMS: Poor historian due to dementia, based on the ED physician's notes patient presents for fever, shortness of breath, generalized weakness and inability to ambulate Vitals: BP 128/84 Pulse 64 Temp 36.6 C (97.8 F) (Oral) Resp 16 Ht 6' 2" (1.88 m) Wt 123 lb (55.8 kg) SpO2 97% BMI 15.79 kg/m BMI Classification: Underweight (BMI <18.5) Pulse Ox: SpO2 Av.5 % Min: 90 % Max: 97 % Supplemental O2: PHYSICAL EXAM: Physical Exam Constitutional: Appearance: He is ill-appearing. Cardiovascular: Rate and Rhythm: Normal rate and regular rhythm. Pulses: Normal pulses. Heart sounds: Normal heart sounds, S1 normal and S2 normal. Pulmonary: Effort: Tachypnea present. Breath sounds: Decreased air movement (anteriorly) present. Abdominal: General: Bowel sounds are normal. Palpations: Abdomen is soft. Musculoskeletal: Right lower le+ Pitting Edema present. Left lower le+ Pitting Edema present. Skin: Comments: Chronic skin changes of the legs Neurological: Comments: Underlying baseline dementia DATA: CBC: Recent Labs 12/06/23 1621 WBC 8.4 RBC 4.11* HGB 12.6* HCT 36.4* MCV 88.5 RDW 14.0 PLT 144 BMP: Recent Labs 12/06/23 1621 NA 136 K 4.5 CL 101 CO2 25 BUN 47* CREATININE 1.35* GLUCOSE 200* CALCIUM 9.4 ANIONGAP 10 LIVER PROFILE: Recent Labs 12/06/23 1621 AST 29 ALT 28 BILITOT 0.7 ALKPHOS 99 PROT 7.1 PT/INR: No results for input(s): "PROTIME", "INR" in the last 72 hours. CARDIAC ENZYMES: Recent Labs 12/06/23 1621 12/06/23 2024 12/07/23 0104 TROPONINI 0.031 0.080* 0.070* Procalcitonin: No results found for: "PROCAL" Urine Culture: No results found for this or any previous visit. COVID-19 PCR: No results for input(s): "COVID19" in the last 72 hours. I reviewed: [x] laboratory results [x] radiographic results At the time of today's encounter. Pt was advised of the results. Assessment Discussed management with the ED provider and agree with hospitalization. Acute, acute on chronic, unstable/uncontrolled chronic problems/diagnoses: Acute RSV associated bronchitis/pneumonia Acute hypoxia with respiratory insufficiency Mild elevated troponin due to demand ischemia Type 2 diabetes mellitus with hyperglycemia Alzheimer's dementia with behavioral disturbance Stable chronic problems affecting care, new non-acute diagnoses: Past Medical History: Diagnosis Date Dementia (HCC) Diabetes mellitus (HCC) Hyperlipidemia Hypertension Plan As a result of the above findings & factors, the following mgmt was pursued: -Admit the patient to medical floor, droplet isolation, continue empiric antibiotics with pneumonia workup, IV fluids, monitor blood sugars, DuoNebs, O2 supplementation to keep sats more than 92% PT and OT assessments Palliative consulted-family wants SNF discharge before continuing hospice care Haldol PRN - am labs, replace lytes prn - PT/OT/CM/SW - delirium precautions: increase activity - DVT prophylaxis: enoxaparin and encourage ambulation Complexity: Risk: Advance Directive: DNR-CCA Anticipated Discharge - Date - - Location - - Pending the following - Total time spent (which include face to face and non face to face encounters) : 74 minutes. Toxic drug monitoring/narrow therapeutic index drug monitoring : # Drug name : # Route administered : # Method of monitoring : Extended Emergency Contact Information Primary Emergency Contact: Kayleigh Scott Mobile Relation: Child Secondary Emergency Contact: Mike Keith Mobile Relation: Child RAI RAY MD, MD Division of Hospitalist Medicine [facility] 12-07-2023 History and physical note Images from the original note were not included. Attending History and Physical Admit Date: 12/06/2023 PCP: Marj Plasencia CHIEF COMPLAINT: Shortness of breath and fever Reason for Admission: ED physician's notes, patient has dementia and a poor historian History Obtained From: HISTORY OF PRESENT ILLNESS: Tita is a 88 y.o. male with past medical history below who presents with chief complaint listed above. Patient presents to the emergency department with a chief complaint of fever, he was sent here from the nursing snf, he was a hospice care patient until recently when it was revoked. , CTA chest showed no PE, mucous plugging in the lower lobes and chronic changes and possible pneumonia, patient tested positive for RSV on respiratory panel. initial oxygen saturations were 93% on room air, Patient started on empiric antibiotics Zosyn and vancomycin. will admit for further evaluation and management. Past Medical History: Past Medical History: Diagnosis Date Dementia (HCC) Diabetes mellitus (HCC) Hyperlipidemia Hypertension Past Surgical History: Past Surgical History: Procedure Laterality Date BACK SURGERY Social History: Social History Socioeconomic History Marital status: Spouse name: Not on file Number of children: Not on file Years of education: Not on file Highest education level: Not on file Occupational History Not on file Tobacco Use Smoking status: Never Smokeless tobacco: Never Substance and Sexual Activity Alcohol use: Not Currently Drug use: Never Sexual activity: Not on file Other Topics Concern Not on file Social History Narrative Not on file Social Determinants of Health Financial Resource Strain: Not on file Food Insecurity: Not on file Transportation Needs: No Transportation Needs (01/18/2023) PRAPARE - Transportation Lack of Transportation (Medical): No Lack of Transportation (Non-Medical): No Physical Activity: Not on file Stress: Not on file Social Connections: Not on file Intimate Partner Violence: Patient Declined (09/11/2023) Humiliation, Afraid, Rape, and Kick questionnaire Fear of Current or Ex-Partner: Patient declined Emotionally Abused: Patient declined Physically Abused: Patient declined Sexually Abused: Patient declined Housing Stability: Low Risk (01/18/2023) Housing Stability Vital Sign Unable to Pay for Housing in the Last Year: No Number of Places Lived in the Last Year: 2 Unstable Housing in the Last Year: No Family History: No family history on file. Medications Prior to Admission: No current facility-administered medications on file prior to encounter. Current Outpatient Medications on File Prior to Encounter Medication Sig Dispense Refill cholecalciferol (Vitamin D-3) 50 MCG (2000 UT) capsule Take 2,000 Units by mouth. dexAMETHasone (Decadron) 6 MG tablet Take 1 tablet (6 mg) by mouth daily for 3 days. docusate sodium (Colace) 100 MG capsule Take 100 mg by mouth 2 times daily. erythromycin (Romycin) 5 MG/GM ophthalmic ointment Apply 1 Application to left eye Nightly. Apply Amount per Dose: 0.5 inch (~1 cm) per dose. insulin glargine (Lantus) 100 UNIT/ML pen Inject 14 Units under the skin Nightly. lisinopril 20 MG tablet Take 20 mg by mouth daily. LORazepam (Ativan) 0.5 MG tablet Take 0.25 mg by mouth 4 times daily as needed for anxiety. Melatonin 3 MG capsule Take 6 mg by mouth Nightly. mirtazapine (Remeron) 15 MG tablet Take 15 mg by mouth Nightly. morphine 10 MG/5ML solution Take 20 mg by mouth every 2 hours as needed for severe pain (7-10). QUEtiapine (SEROquel) 25 MG tablet Take 0.5 tablets (12.5 mg) by mouth 2 times daily. 30 tablet 0 tamsulosin (Flomax) 0.4 MG 24 hr capsule Take 0.8 mg by mouth Nightly. Allergies: No Known Allergies REVIEW OF SYSTEMS: Poor historian due to dementia, based on the ED physician's notes patient presents for fever, shortness of breath, generalized weakness and inability to ambulate Vitals: BP 128/84 Pulse 64 Temp 36.6 C (97.8 F) (Oral) Resp 16 Ht 6' 2" (1.88 m) Wt 123 lb (55.8 kg) SpO2 97% BMI 15.79 kg/m BMI Classification: Underweight (BMI <18.5) Pulse Ox: SpO2 Av.5 % Min: 90 % Max: 97 % Supplemental O2: PHYSICAL EXAM: Physical Exam Constitutional: Appearance: He is ill-appearing. Cardiovascular: Rate and Rhythm: Normal rate and regular rhythm. Pulses: Normal pulses. Heart sounds: Normal heart sounds, S1 normal and S2 normal. Pulmonary: Effort: Tachypnea present. Breath sounds: Decreased air movement (anteriorly) present. Abdominal: General: Bowel sounds are normal. Palpations: Abdomen is soft. Musculoskeletal: Right lower le+ Pitting Edema present. Left lower le+ Pitting Edema present. Skin: Comments: Chronic skin changes of the legs Neurological: Comments: Underlying baseline dementia DATA: CBC: Recent Labs 12/06/23 1621 WBC 8.4 RBC 4.11* HGB 12.6* HCT 36.4* MCV 88.5 RDW 14.0 PLT 144 BMP: Recent Labs 12/06/23 1621 NA 136 K 4.5 CL 101 CO2 25 BUN 47* CREATININE 1.35* GLUCOSE 200* CALCIUM 9.4 ANIONGAP 10 LIVER PROFILE: Recent Labs 12/06/23 1621 AST 29 ALT 28 BILITOT 0.7 ALKPHOS 99 PROT 7.1 PT/INR: No results for input(s): "PROTIME", "INR" in the last 72 hours. CARDIAC ENZYMES: Recent Labs 12/06/23 1621 12/06/23 20212/07/23 0104 TROPONINI 0.031 0.080* 0.070* Procalcitonin: No results found for: "PROCAL" Urine Culture: No results found for this or any previous visit. COVID-19 PCR: No results for input(s): "COVID19" in the last 72 hours. I reviewed: [x] laboratory results [x] radiographic results At the time of today's encounter. Pt was advised of the results. Assessment Discussed management with the ED provider and agree with hospitalization. Acute, acute on chronic, unstable/uncontrolled chronic problems/diagnoses: Acute RSV associated bronchitis/pneumonia Acute hypoxia with respiratory insufficiency Mild elevated troponin due to demand ischemia Type 2 diabetes mellitus with hyperglycemia Alzheimer's dementia with behavioral disturbance Stable chronic problems affecting care, new non-acute diagnoses: Past Medical History: Diagnosis Date Dementia (HCC) Diabetes mellitus (HCC) Hyperlipidemia Hypertension Plan As a result of the above findings & factors, the following mgmt was pursued: -Admit the patient to medical floor, droplet isolation, continue empiric antibiotics with pneumonia workup, IV fluids, monitor blood sugars, DuoNebs, O2 supplementation to keep sats more than 92% PT and OT assessments Palliative consulted-family wants SNF discharge before continuing hospice care Haldol PRN - am labs, replace lytes prn - PT/OT/CM/SW - delirium precautions: increase activity - DVT prophylaxis: enoxaparin and encourage ambulation Complexity: Risk: Advance Directive: DNR-CCA Anticipated Discharge - Date - - Location - - Pending the following - Total time spent (which include face to face and non face to face encounters) : 74 minutes. Toxic drug monitoring/narrow therapeutic index drug monitoring : # Drug name : # Route administered : # Method of monitoring : Extended Emergency Contact Information Primary Emergency Contact: Kayleigh Scott Mobile Relation: Child Secondary Emergency Contact: JulitoMike Mobile Relation: Child RAI RAY MD, Division of Hospitalist Medicine [facility] documented in this encounter [facility] 12-07-2023 Emergency department Note ID and daughter @ bedside. Radha Torres RN 12/07/23 0943 [facility] 12-07-2023 Emergency department Note PT @ bedside. Radha Torres RN 12/07/23 0840 [facility] 12-07-2023 Emergency department Note [facility] (S[facility]) staff notified about pt admission and status. Daughter @ bedside feeding pt. Daughter updated on POC. Radha Torres RN 12/07/23 0822 [facility] 12-07-2023 Emergency department Note Rounded on pt. Pt pulled out one IV and all telemetry leads/SPO2. Pt confused however calm and cooperative. Placed pt back on tele and wrapped remaining IV site loosely w/Kerlix. Re-oriented pt to place and situation. Pt clean and dry. Urine collection in place and functioning well. Gave pt a clean gown. Propped pt to rt side. Ordered pt breakfast. Radha Torres RN 12/07/23 0757 [facility] 12-07-2023 Consult note Associated Order (s): IP CONSULT TO PALLIATIVE CARE Images from the original note were not included. Palliative Care Initial Consult Chief Complaint: Tita Keith is a 88 y.o. male with chief complaint of SOB Palliative care consulted for goals of care Palliative Care is actively following. Assessment/Plan Goals of care - met with patient this morning in ED, patient was confused - patient at this time does not have medical decision making capacity - reached out to daughter/HCPOA Kayleigh Sebastientrevon, introduced self and role - Kayleigh stated that patient has 4 children, 2 boys 2 girls - stated 2 of patient's children live out of town - Kayleigh stated that patient was in hospice at [facility] and they revoked hospice for him to be treated for skin cancer - kayleigh stated that patient likes it at [facility] and she would like him to go back there b - stated she does not want to re enroll him on hospice at this time but if his condition declined she would be open to hospice discussions - Code status at this time remains DNRCCA - will continue to have ongoing goals of care discussions with Kayleigh - discussed with primary team attending Dr. Ray Altered mental status - likely due to delirium on top of Dementia, RSV infection - continue to monitor RSV/PNA - patient on isolation, empiric antibiotics, IVF started Dementia - per daughter Kayleigh she was here this morning and that is his baseline - stated he did have altered mental status yesterday Pneumonia - on IV zosyn, vancomycin Skin cancer - per daughter revoked hospice recently to get surgery for skin cancer Severe PCM - patient is hospice appropriate Palliative Care Encounter - will continue to follow for ongoing monitoring of progression of Dyspnea and Pain as well as for appropriateness for hospice care due to Protein Calorie Malnutrition - will continue to evaluate test results related to Protein Calorie Malnutrition, medication effectiveness for Dyspnea, Pain, and Constipation, response to treatment of Protein Calorie Malnutrition - obtaining testing as needed to monitor medication results:N/A Total of 85 minutes spent on this encounter including Chart review, Patient visit and exam, Documentation in EHR, Care coordination, and Communicating with primary attending or other consultants. Discharge planning: Not ready for discharge due to ongoing goals of care discussion Patient meets criteria for general inpatient hospice care including the following: N/A - Palliative Care Patient Referrals to: None Discussed patient and the plan of care with the other interdisciplinary team (IDT) members of Palliative Care Team, and with Primary Attending, Family, and Floor Nurse Insert attestation statement here if applicable (.disupervision) or (.npattest) Subjective: Hospital days prior to consult: 1 day Trauma Consult: no. (If yes, please add .traumapall aries for tracking purposes.) Subjective/Events Tita Keith is a 88 y.o. male with PMHx of Dementia, HTN, HLP, DM 2 who was admitted to [facility] on 12/06/23 from [facility] for altered mental status. Per daughter patient was previously on hospice at [facility], hospice was revoked to seek treatment for skin cancer. Daughter stated patient developed altered mental status, had TM of 105 F and he was sent to ED this admission. Patient found to have RSV infection, was palced on isolation. Patient was started on IV antibiotics. Palliative care consulted for goals of care. Pain Assessment (If Pain Scale >0) Please see FLACC Goals of care:Continue Current Management Advance Directives: DNR-CCA Surrogate: Child and HCPOA Prognosis: depends upon goals Spiritual assessment: No spiritual distress identified Bereavement and grief: Grief Issues Not Identified Past Medical History: Diagnosis Date Dementia (HCC) Diabetes mellitus (HCC) Hyperlipidemia Hypertension Past Surgical History: Procedure Laterality Date BACK SURGERY No family history on file. Unable to obtain family history due to patient unresponsive No Known Allergies Review of Systems ROS: See palliative care ROS/ESAS below; Detail ROS unable to be obtained due to patient's mental status [place] Symptom Assessment Score [place] Score Pain Score 0 per FLACC Tiredness Score 10 Nausea Score 0 Depression Score 0 Anxiety Score 0 Drowsiness Score 10 Anorexia Score (0= eating well, 10= not eating) 10 Wellbeing Score (10= worst sense of well-being) 8 Constipation 0 Dyspnea Score (0= no shortness of breath) 0 FLACC Scale (For Pain Assessment of the Non-Verbal Patient) Face: 0- no particular expression Legs: 0- normal position or relaxed Activity: 0-lying quietly, moves easily Cry: 0-no cry Consolability:0-content, relaxed Total Score: 0 Assessed by: provider. Social history: [place] status: no Marital status: single Living status: snf Work history: retired Advance Care Planning: The patient has capacity to make healthcare and advanced care planning decisions No The patient's identified surrogate decision maker is Child and HCPOA. Discussion participants: Provider - myself and Child - Kayleigh Diagnosis and Prognosis, Goals of Care, Treatment Options, Symptom Management, Advanced Care Planning, and Prior Expressed Wishes We discussed goals of care related to the patient's current health as documented below: - see A and P We discussed [id number] concerns identified by the patient/surrogate, including - see A and P Interventions reviewed: Resuscitation procedures (CPR), Mechanical ventilator support, and Diagnostic testing Advance Care Planning Documents: Healthcare Power of Animal Control Specialist: Completed Financial Power of Animal Control Specialist: Other Unknown Living Will: Other Unknown Code Status: DNR-CCA In addition to the time spent evaluating and managing the patient's medical diagnoses above, 15 minutes of this encounter was spent discussing advanced care planning documented above. Please bill [id number] for 16-46 minutes and add additional [id number] for >46 minutes. Family Meeting: Participants: child Family meeting was held to discuss:Diagnosis and Prognosis, Goals of Care, Treatment Options, Symptom Management, Advanced Care Planning, Prior Expressed Wishes, and Discharge Plan Objective: Physical Exam BP (!) 165/67 Pulse 64 Temp 36.6 C (97.9 F) (Oral) Resp 15 Ht 6' 2" (1.88 m) Wt 123 lb (55.8 kg) SpO2 95% BMI 15.79 kg/m Physical Exam HENT: Head: Atraumatic. Nose: Nose normal. Mouth/Throat: Mouth: Mucous membranes are moist. Eyes: General: No scleral icterus. Pupils: Pupils are equal, round, and reactive to light. Cardiovascular: Rate and Rhythm: Normal rate and regular rhythm. Pulses: Normal pulses. Heart sounds: Normal heart sounds. No murmur heard. Pulmonary: Effort: Pulmonary effort is normal. Breath sounds: Normal breath sounds. No stridor. No wheezing or rhonchi. Abdominal: General: Bowel sounds are normal. Palpations: Abdomen is soft. Musculoskeletal: General: No swelling. Cervical back: Neck supple. Right lower leg: No edema. Left lower leg: No edema. Skin: General: Skin is warm. Coloration: Skin is not jaundiced. Neurological: Comments: No response to verbal stimuli Psychiatric: Comments: No agitation Current Medications: Inpatient medications reviewed: yes Home medications reviewed: yes OARRS Reviewed: Yes-11/06/23 Lorazepam 0.5 # 4 24 Hour PRN Meds: no PRN medications in 24 hours Results/Verification of Data Review Objective data reviewed (be specific which labs, imaging reports with dates reviewed): - labs, imaging, OARRS reviewed 12/07/23 Data in Support of Terminal Illness: Is patient hospice appropriate? TBD Transition Note Initiated: yes. [facility] 12-07-2023 Consult note Formatting of th is note is different from the original. 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 year old male ordered vancomycin for Pneumonia (CAP); consult from Dr. Stout to manage therapy. Patient Active Problem List Diagnosis Date Noted Pneumonia due to infectious organism, unspecified laterality, unspecified part of lung 12/06/2023 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) 09/17/2023 COVID-19 09/10/2023 Severe malnutrition (CMS/HCC) ([facility]) 01/20/2023 Hyperglycemia 01/19/2023 Hyperosmolar hyperglycemic state (HHS) ([facility]) 01/17/2023 New onset type 2 diabetes mellitus ([facility]/HCC) ([facility]) 03/01/2022 Patient has no known allergies. CREATININE Date Value Ref Range Status 12/06/2023 1.35 (H) 0.66 - 1.25 mg/dL Final 03/03/2022 1.12 0.52 - 1.25 mg/dL Final UREA NITROGEN Date Value Ref Range Status 12/06/2023 47 (H) 9 - 20 mg/dL Final Auto WBC Date Value Ref Range Status 12/06/2023 8.4 3.6 - 10.7 10*3/uL Final Ht Readings from Last 1 Encounters: 12/06/23 1.88 m (6' 2") Wt Readings from Last 1 Encounters: 12/06/23 55.8 kg (123 lb) Plan: Will initiate vancomycin 750 mg IV every 24 hours based on predicted AUC of 494 mg/L.hr . Goal AUC is 400-600 mg/L.hr. Random level will be scheduled for 06:00 on 12/08/23. Thank you for the consult. Will continue to follow. [facility] 12-06-2023 Emergency department Triage note Patient is from SNF and was sent due to Mental status change, fever of 105 oral, rigors, and is being treated for pneumonia. Patient was started on Cefdinar 300 mg PO BID. [facility] X-ray at the [facility] showed infiltrates. Patient was given Tylenol suppository while EMS was enroute. [facility] 12-06-2023 Physician Emergency department Note EMERGENCY DEPARTMENT ENCOUNTER Pt Name: Tita Keith Birthdate 1935 Date of evaluation: 12/06/2023 ED Provider: Lala Lerma MD CHIEF COMPLAINT Chief Complaint Patient presents with Shortness of Breath Fever Pnuemonia HISTORY OF PRESENT ILLNESS (Location/Symptom, Timing/Onset, Context/Setting, Quality, Duration, Modifying Factors, Severity) Note limiting factors. I wore appropriate PPE for the entirety of this encounter. HPI Tita Keith is a 88 y.o. who presents to the emergency department with a chief complaint of fever in the setting of a pneumonia. He presents from his snf. Recently, he was hospice, but this was revoked by family. Reportedly, the patient is comfort care, but the facility is providing him with antibiotics. EMS reports that he was satting around 93%. History is limited secondary to the patient's AMS. Nursing Notes were reviewed. Limitations to history: AMS Outside historians: EMS REVIEW OF SYSTEMS Review of Systems Pertinent positives and negatives as per HPI. PAST MEDICAL HISTORY Past Medical History: Diagnosis Date Dementia (HCC) Diabetes mellitus (HCC) Hyperlipidemia Hypertension SURGICAL HISTORY Past Surgical History: Procedure Laterality Date BACK SURGERY CURRENT MEDICATIONS Previous Medications CHOLECALCIFEROL (VITAMIN D-3) 50 MCG (1999 UT) CAPSULE Take 2,000 Units by mouth. DEXAMETHASONE (DECADRON) 6 MG TABLET Take 1 tablet (6 mg) by mouth daily for 3 days. DOCUSATE SODIUM (COLACE) 100 MG CAPSULE Take 100 mg by mouth 2 times daily. ERYTHROMYCIN (ROMYCIN) 5 MG/GM OPHTHALMIC OINTMENT Apply 1 Application to left eye Nightly. Apply Amount per Dose: 0.5 inch (~1 cm) per dose. INSULIN GLARGINE (LANTUS) 100 UNIT/ML PEN Inject 14 Units under the skin Nightly. LISINOPRIL 20 MG TABLET Take 20 mg by mouth daily. LORAZEPAM (ATIVAN) 0.5 MG TABLET Take 0.25 mg by mouth 4 times daily as needed for anxiety. MELATONIN 3 MG CAPSULE Take 6 mg by mouth Nightly. MIRTAZAPINE (REMERON) 15 MG TABLET Take 15 mg by mouth Nightly. MORPHINE 10 MG/5ML SOLUTION Take 20 mg by mouth every 2 hours as needed for severe pain (7-10). QUETIAPINE (SEROQUEL) 25 MG TABLET Take 0.5 tablets (12.5 mg) by mouth 2 times daily. TAMSULOSIN (FLOMAX) 0.4 MG 24 HR CAPSULE Take 0.8 mg by mouth Nightly. ALLERGIES Patient has no known allergies. FAMILY HISTORY No family history on file. SOCIAL HISTORY Social History Socioeconomic History Marital status: Tobacco Use Smoking status: Never Smokeless tobacco: Never Substance and Sexual Activity Alcohol use: Not Currently Drug use: Never Social Determinants of Health Transportation Needs: No Transportation Needs (01/18/2023) PRAPARE - Transportation Lack of Transportation (Medical): No Lack of Transportation (Non-Medical): No Intimate Partner Violence: Patient Declined (09/11/2023) Humiliation, Afraid, Rape, and Kick questionnaire Fear of Current or Ex-Partner: Patient declined Emotionally Abused: Patient declined Physically Abused: Patient declined Sexually Abused: Patient declined Housing Stability: Low Risk (01/18/2023) Housing Stability Vital Sign Unable to Pay for Housing in the Last Year: No Number of Places Lived in the Last Year: 2 Unstable Housing in the Last Year: No SCREENINGS Jinny Coma Scale Best Eye Response: To verbal stimuli Best Verbal Response: Inappropriate words Best Motor Response: Localizes pain [place] Coma Scale Score: 11 PHYSICAL EXAM ED Triage Vitals Temp Pulse Resp BP -- -- -- -- SpO2 Temp src Heart Rate Source Patient Position -- -- -- -- BP Location FiO2 (%) -- -- General-elderly, warm to the touch, no acute distress, nontoxic-appearing HEENT- atraumatic, normocephalic Neck- no meningismus, no obvious masses Respiratory- rhonchi noted on the L, no respiratory distress Cardiovascular- borderline tachycardic Abdomen- soft, non-tender, no rebound or guarding MSK- thin muscle bulk, no gross deformities Skin- non-diaphoretic, no obvious rashes or lesions Neuro- alert, CN2-12 grossly intact, moving all extremities DIAGNOSTIC RESULTS Interpretation per the Radiologist below, if available at the time of this note: CT chest angiogram w and/or wo IV contrast Final Result 1. No evidence of large vessel or central pulmonary emboli. 2. Mucous plugging and patchy atelectasis, infiltrates or postinflammatory change in the bilateral lower lobes, right greater than left, of uncertain chronicity. Correlate clinically. 3. Wedge-shaped compression deformities in mid thoracic vertebral bodies may represent insufficiency change, but age-indeterminate. Report Dictated on Electronically Signed By: Mark Murrell MD Electronically Signed Date/Time: 12/06/2023 6:26 PM EST XR chest 1 view Final Result No radiographic acute cardiopulmonary process. Report Dictated on Electronically Signed By: Iman Arriaga MD Electronically Signed Date/Time: 12/06/2023 4:36 PM EST LABS: Labs Reviewed SARS-COV-2, FLU A/B, AND RSV COMBO - Abnormal Result Value SARS-CoV-2 Not Detected Respiratory Syncytial Virus Detected (*) Influenza A Not Detected Influenza B Not Detected Narrative: Methodology: real-time, RT-PCR The SARS-CoV-2, Flu A/B, and RSV Combo assay is intended for in vitro diagnostic use under the FDA Emergency Use Authorization (EUA). This test has not been FDA cleared or approved. In compliance with this authorization, please visit www.fda.gov/media/518303/download or www.fda.gov/media/917353/download to access the applicable information sheets. CBC WITH AUTO DIFFERENTIAL - Abnormal Auto WBC 8.4 RBC 4.11 (*) Hemoglobin 12.6 (*) Hematocrit 36.4 (*) MCV 88.5 MCH 30.6 MCHC 34.6 RDW 14.0 Platelets 144 MPV 8.9 nRBC 0.0 Neutrophils Relative 86.7 (*) Lymphocytes Relative 5.8 (*) Monocytes Relative 7.3 Eosinophils Relative 0.1 (*) Basophils Relative 0.1 Neutrophils Absolute 7.3 (*) Lymphocytes Absolute 0.5 (*) Monocytes Absolute 0.6 Eosinophils Absolute 0.0 Basophils Absolute 0.0 COMPREHENSIVE METABOLIC PANEL - Abnormal SODIUM 136 POTASSIUM 4.5 CHLORIDE 101 CARBON DIOXIDE 25 ANION GAP 10 UREA NITROGEN 47 (*) CREATININE 1.35 (*) GLUCOSE 200 (*) CALCIUM 9.4 AST (SGOT) 29 ALT 28 ALKALINE PHOSPHATASE 99 ALBUMIN 3.8 BILIRUBIN, TOTAL 0.7 TOTAL PROTEIN 7.1 eGFR 50.5 (*) LACTIC ACID WITH REFLEX - Normal LACTIC ACID 1.4 BLOOD CULTURE BLOOD CULTURE COMPLETE URINALYSIS WITH REFLEX TO CULTURE Narrative: The following orders were created for panel order Urinalysis Complete with reflex to Culture. Procedure Abnormality Status --------- ------ Complete Urinalysis[[id number]] Please view results for these tests on the individual orders. COMPLETE URINALYSIS TROPONIN, WITH SERIAL REFLEX All other labs were within normal range or not returned as of this dictation. EMERGENCY DEPARTMENT COURSE/Reval Vitals: Vitals: 12/06/23 1802 12/06/23 1810 12/06/23 18312/06/23 190 BP: 133/74 133/74 136/82 123/82 BP Location: Patient Position: Pulse: 95 93 89 84 Resp: 20 25 Temp: SpO2: 92% 93% 93% 92% Weight: Diagnoses as of 12/06/231948 Pneumonia due to infectious organism, unspecified laterality, unspecified part of lung Sepsis, due to unspecified organism, unspecified whether acute organ dysfunction present (HCC) RSV (acute bronchiolitis due to respiratory syncytial virus) Medications piperacillin-tazobactam (Zosyn) 4.5 g in sodium chloride 0.9 % 100 mL IVPB Mini-Bag Plus (0 g IntraVENous Stopped 12/06/23 1716) vancomycin IVPB 1500 mg in 250 mL NS (premix) (1,500 mg IntraVENous New Bag 12/06/23 1640) sodium chloride 0.9 % bolus 1,674 mL (0 mL IntraVENous Stopped 12/06/23 174) iopamidol (Isovue-370) 76 % injection 75 mL (75 mL IntraVENous Given 12/06/23 174) EMERGENCY DEPARTMENT COURSE and DIFFERENTIAL DIAGNOSIS/Reval/MDM: Vitals: Vitals: 12/06/23 1802 12/06/23 1810 12/06/23 18312/06/23 190 BP: 133/74 133/74 136/82 123/82 BP Location: Patient Position: Pulse: 95 93 89 84 Resp: 20 20 25 Temp: SpO2: 92% 93% 93% 92% Weight: Diagnoses as of 12/06/23 194 Pneumonia due to infectious organism, unspecified laterality, unspecified part of lung Sepsis, due to unspecified organism, unspecified whether acute organ dysfunction present (HCC) RSV (acute bronchiolitis due to respiratory syncytial virus) ED Medications managed: Medications piperacillin-tazobactam (Zosyn) 4.5 g in sodium chloride 0.9 % 100 mL IVPB Mini-Bag Plus (0 g IntraVENous Stopped 12/06/23 1716) vancomycin IVPB 1500 mg in 250 mL NS (premix) (1,500 mg IntraVENous New Bag 12/06/23 1640) sodium chloride 0.9 % bolus 1,674 mL (0 mL IntraVENous Stopped 12/06/23 1740) iopamidol (Isovue-370) 76 % injection 75 mL (75 mL IntraVENous Given 12/06/23 174) SEP-1 CORE MEASURE DATA SIRS Criteria Sepsis Criteria Severe Sepsis Criteria Septic Shock Criteria Must meet 2: [] Temperature > 100.4 F (38 C) or < 96.8 F (36 C) [] HR > 90 [] RR > 20 [] WBC > 12 or < 4 or 10% bands Must be confirmed or suspected to move forward with diagnosis of sepsis. [] Infection Confirmed or Suspected. [] No infection present. Patient does not meet criteria for Sepsis. Must meet 1: [] Lactate > 2 or [] Signs of Organ Dysfunction: - SBP < 90 or MAP < 65 - Altered mental status - Creatinine > 2 or increased from baseline - Urine Output < 0.5 ml/kg/hr - Bilirubin > 2 - INR > 1.5 - Platelets < 100,000 - Acute Respiratory Failure as evidenced by new need for NIPPV or mechanical ventilation [] No criteria met for Severe Sepsis. Must meet 1: [] Lactate = or > 4 or [] SBP < 90 or MAP < 65 for at least two readings in the first hour after fluid bolus administration [] No criteria met for Septic Shock. No data found. Recent Labs 12/06/23 1621 WBC 8.4 LACTATE 1.4 CREATININE 1.35* BILITOT 0.7 PLT 144 Sepsis Identified at 1630 hours. Fluid Resuscitation Rational: at least 30mL/kg based on entered actual body weight at time of triage Infection Source: Pulmonary - Nosocomial Reassessment Exam: Not applicable. Patient does not have Septic Shock. Lala Lerma MD EKG interpreted by me: 12-06-2023. Time 1936. Rate 95 normal sinus rhythm. Normal axis. TERE 169, QRS 74, QTc 420. No STEMI. Discussions with other clinicians: hospitalist, about admission Medical conditions impacting care: dementia Social determinants of health affecting care: Resides at snf Escalation of care, appropriate for: Admission MDM: 88-year-old male presenting with concerns about treatment failure for pneumonia from his snf. He was hemodynamically stable, but not met sepsis criteria. Broad-spectrum antibiotics were started. His x-ray was negative. I had some concern for a radio-occult pneumonia, as well as a PE. Therefore, I got a CT angiogram of his chest for PE. This was negative for PE, but did demonstrate a pneumonia. I clarified the CODE STATUS with the daughter, and it was made DNR CCA. His EKG was reassuring. He was positive for RSV. I spoke with the hospitalist, and had the patient admitted for further care. CRITICAL CARE TIME PROCEDURES: Unless otherwise noted below, none Procedures FINAL IMPRESSION 1. Pneumonia due to infectious organism, unspecified laterality, unspecified part of lung 2. Sepsis, due to unspecified organism, unspecified whether acute organ dysfunction present (HCC) 3. RSV (acute bronchiolitis due to respiratory syncytial virus) DISPOSITION Admit 12/06/2023 06:39:14 PM PATIENT REFERRED TO: No follow-up provider specified. DISCHARGE MEDICATIONS: New Prescriptions No medications on file (Comment: Please note this report has been produced using speech recognition software and may contain errors related to that system including errors in grammar, punctuation, and spelling, as well as words and phrases that may be inappropriate. If there are any questions or concerns please feel free to contact the dictating provider for clarification.) Lala Lerma MD (electronically signed) Emergency Medicine Physician Lala Lerma MD 12/06/231949 [facility] 09-19-2023 Nurse Note Report given to apostolic receiving nurse. All questions answered. Waiting on transport [facility] 09-19-2023 Nurse Note Report given to apostolic receiving nurse. All questions answered. Waiting on transport documented in this encounter [facility] 09-19-2023 History of Presen t illness Narrative Images from the original note were not included. Speech-Language Pathology SPEECH LANGUAGE PATHOLOGY [facility] Dysphagia Treatment Note Patient Name: Tita Keith Evaluation Date: 09/19/2023 Date of : 1935 Admission Date: 09/10/2023 11:21 AM Age: 87 y.o. Room[facility]Bed: [facility] A Subjective Patient alert and restless, fidgeting with sock on his arm. Seen upright, after pulling up in bed.. No visitors at bedside. Pt able to state name only. CLAIMS PROCESSOR oriented pt to place and time. Reference current date on the white board. Pain: RN managing pain. No indication or c/o pain. PPE Worn: n95, face shield, gown, gloves Objective & Assessment Dysphagia Treatment Dysphagia Activity 1: Assess cough and clearing ability (abdomenal/deep breathing) Dysphagia Activity 2: Assess advanced diet trials. Pt was alert when CLAIMS PROCESSOR entered. He did eat most of his breakfast tray per discussion with nursing home assistant administrator. He took depend off and was putting sock on his hand/arm. Pt was agreeable to po trial. He indicated that he does like chocolate pudding. Baseline "full" vocal quality. Unable to cough to clear on command. Completed blowing through straw (observation of increased abdominal breathing with progression of trial and cues to "blow hard" to make tissue move.) and loud vocalization which triggered a throat clear and multiple re-swallows. Pt's cough remains weak and non-productive. Trial of softened patricia crackers in pudding. He was able to clear given slow rate and continue with multiple re-swallows. Intermittent vocal changes, not observed 09/18. Pt is now on room air, overall improved alertness. Able to follow some simple commands and answer basic questions inconsistently. Will delay diet advancement. Baseline was Minced and moist with thin liquids via single drinks. Plan & Recommendations Plan: Continue puree diet with thin liquids. Needs set up for most upright position. Supervision to ensure slower rate and multiple swallows with each bite. Further assess need for repeat instrumentation. Clinically improved. Continue acute CLAIMS PROCESSOR therapy per initial plan of care and established goals. D/C Recommendations: to be determined Education Education Given: swallowing strategies, deep breathing and airway management. Given To: patient Response: no evidence of learning Goals Patient Stated Goal: I want a cold drink of water. Encounter Problems Encounter Problems (Active) Swallowing Patient will tolerate the least restrictive diet consistency to allow for safe consumption of daily meals (Progressing) Start: 09/13/23 Expected End: 09/27/23 Patient will tolerate recommended food and liquid consistencies without clinical signs and symptoms of aspirations (Progressing) Start: 09/13/23 Expected End: 09/27/23 Therapy Time CLAIMS PROCESSOR Individual Minutes Time In: 1006 Time Out: 1025 Minutes: 19 BRITTNY Mattson Images from the original note were not included. OCCUPATIONAL THERAPY [facility] Treatment Note Name/MRN: Tita Keith ([id number]) Date of : 1935 Age: 87 y.o. Room/Bed: -193/J3-017 A Visit #: 1 out of 8 visits Discharge Recommendation: SNF Equipment Needed: TBD at next level of care Prior Level of Function ADL Assistance: Needs Assist Ambulation Assistance: Independent Device(s) used: front wheeled walker Transfer Assistance: Independent Assessment Pt tolerated session fair, with improvement from previous session. Pt completed bed mobility with Mod Ax1-2. Pt completed x1 STS with Mod Ax2, and x1 with Mod Ax1. Pt completed functional mobility and UB dressing with Mod Ax1 and toilet transfer with Max Ax1. Pt is progressing with POC but is still below baseline and is a high fall risk. Pt would benefit from continued OT to improve activity tolerance, balance, and strength needed for improved occupational performance. Pt is recommended for SNF at D/C Subjective Pt supine in bed, pleasant and agreeable for therapy. Co-tx due to prior documenation of need for x2 therapists, current session billed separately. Pain: Pt denies any current pain. Medical Precautions: Droplet Plus Proper PPE donned/doffed in accordance with facility standards. Fall Risk: Sandoval Fall Risk Score: 75 (High Risk) Precautions/Restrictions: N/A Family/Caregiver Present: none Objective ADLs UE Dressing: Mod Assist Pt required Mod A to complete UB bathing. Pt with difficulty sequencing and task completion to dress UB. Bed Mobility Supine to sit: Mod Assist, x2 Person Assist Sit to supine: Mod Assist Scooting: Mod Assist Pt completed supine to sit with HOB elevated, use of bed rails, and Mod Ax2 for BLE and trunk management. Pt required Mod Ax1 to return to supine and to scoot hips to EOB with draw pad Transfers/Mobility Sit to stand: Mod Assist, x2 Person Assist Stand to sit: Mod Assist, x2 Person Assist, Pt completed x2 STS from lowered EOB with FWW. Pt initially required Mod Ax2 for transfer, progressing to Mod Ax1. Pt with poor carryover of proper BUE placement, despite VC. Pt with constant slight bora knee flexion, and posterior lean Toilet: Max Assist, Pt completed bathroom level toilet transfer with use of R grab bar and Max A. Pt required max tactile and VC for sequencing to complete. Sitting balance: Supervision Standing balance: Mod Assist Functional mobility: Mod Assist Pt completed functional mobility to/from bathroom with FWW and Mod A. Pt required tactile and VC for sequencing and FWW management. Device(s) used: front wheeled walker, hospital bed, and grab bars Cognition - Following commands: follows one step commands with increased time - Safety judgement: decreased awareness of need for safety - Problem solving: assistance required to generate solutions, assistance required to implement solutions, assistance required to identify errors made, assistance required to correct errors made, and decreased awareness of errors - Sequencing: requires cues for all WFL Plan Continue acute OT per plan of care. Safety/Education Safety Safety Devices in place: All fall risk precautions in place, call light within reach, left in bed, bed alarm in place, gait belt, patient at risk for falls, and nurse notified Restraints: No Education Education Given To: patient Education Provided: OT Role, Plan of Care, Precautions, ADL Adaptive Strategies, Transfer Training, Equipment, Fall Prevention Education, and Discharge Recommendations Education Method: Verbal, Demonstration, and Teach Back Barriers to Learning: None Education Outcome: Verbalized Understanding, Demonstrated Understanding, and Continued Education Needed AM-PAC AM-PAC Inpatient Daily Activity Raw Score: 10 ADL Inpatient CMS G-Code Modifier: CL Goals Patient Stated Goal: Encounter Problems Encounter Problems (Active) Dressing Upper Extremities Patient will complete upper body dressing with SBA (Slowly Progressing) Start: 09/11/23 Expected End: 09/19/23 Grooming Patient will complete daily grooming tasks with SBA (Not Addressed) Start: 09/11/23 Expected End: 09/19/23 Mobility Patient will demonstrate functional ambulation with min A (Progressing) Start: 09/11/23 Expected End: 09/19/23 Toileting Patient will complete toileting tasks at bedside commode with min assist. (Progressing) Start: 09/11/23 Expected End: 09/19/23 Transfers Patient will complete functional transfer with rolling walker with min assist in order to prepare for ambulation. (Progressing) Start: 09/11/23 Expected End: 09/19/23 Patient will perform bed mobility with min assist in order to improve independence and prepare for out of bed mobility. (Progressing) Start: 09/11/23 Expected End: 09/19/23 Therapy Time Individual Co-treatment Time In 1308 Time Out 1328 Minutes 20 Timed Code Treatment Minutes: 10 Minutes (1 Ther Act) Variance: 10 (co-tx due to pt last reported function) KORI Nguyen Images from the original note were not included. PHYSICAL THERAPY [facility] Treatment Note Name/MRN: Tita Keith ([id number]) Date of : 1935 Age: 87 y.o. Room/Bed: V8-238/R0-909 A Visit #: 1 out of 5 visits Discharge Recommendation: SNF Equipment Needed: TBD at next level of care Prior Level of Function ADL Assistance: Needs Assist Ambulation Assistance: Needs Assistance Device(s) used: front wheeled walker Transfer Assistance: Needs Assist Assessment Pt presents with increased functional mobility. Pt requires mod a x 2 for bed mobility, mod A x 2 progressing to mod A x 1 for transfers and mod A x 1 for ambulation within room due to precautions. Pt requires assist for FWW management and proximity. PT rec SNF at discharge. Subjective Pt is agreeable to therapy. Observation: Per RN okay to see. Vitals: Per RN okay to see. Pain: Pt denies any current pain. Medical Precautions: Droplet Plus Proper PPE donned/doffed in accordance with facility standards. Fall Risk: Sandoval Fall Risk Score: 75 (High Risk) Precautions/Restrictions: N/A Overall Cognitive Status: WFL requires assistance with sequencing Overall Orientation Status: Unable to Assess Family/Caregiver Present: none Objective Ambulation Ambulation 1 Assistive device(s) used: front wheeled walker Assist level: Mod Assist Distance (ft): 25ft x 2 Quality of gait: demonstrates a short step to pattern, decreased step height and length, forward flexed posture, requires assist for sequencing, proximity and safety awareness. Transfers/Mobility Sit to stand: Mod Assist, x2 Person Assist Stand to sit: Mod Assist, x2 Person Assist Pt initially requires mod A x 2 and progressed to mod A x 1 Device(s) used: front wheeled walker Bed Mobility Supine to sit: Mod Assist, x2 Person Assist Sit to supine: Mod Assist, x2 Person Assist HOB elevated unable to sequence use of bed rail and requires assist for B LE and trunk Plan Continue acute PT per plan of care. Safety/Education Safety Safety Devices in place: All fall risk precautions in place, call light within reach, left in bed, bed alarm in place, gait belt, patient at risk for falls, and nurse notified Restraints: No Education Education Given To: patient Education Provided: PT Role, PT Goals, Gait Training, Plan of Care, Transfer Training, and Equipment Education Method: Verbal and Demonstration Barriers to Learning: None Education Outcome: Verbalized Understanding and Demonstrated Understanding Outcome Measures AM-PAC AM-PAC Inpatient Mobility Raw Score (No Stairs) : 10 Goals Patient Stated Goal: To walk Encounter Problems Encounter Problems (Active) Balance Patient will maintain static standing balance for 2 minutes with SBA in order to demonstrate decreased risk of falling. (Progressing) Start: 09/11/23 Expected End: 09/18/23 Exercise Patient will complete lower extremity exercises for 1-2 sets / 10 reps in order to improve strength and activity tolerance for mobility. (Not Addressed) Start: 09/11/23 Expected End: 09/18/23 Mobility Patient will ambulate 25 feet with min assist and least restrictive device in order to improve safety and independence with mobility. (Progressing) Start: 09/11/23 Expected End: 09/18/23 Transfers Patient will perform bed mobility with SBA in order to improve independence and prepare for out of bed mobility. (Progressing) Start: 09/11/23 Expected End: 09/18/23 Patient will complete functional transfers with least restrictive device with min assist in order to prepare for ambulation. (Progressing) Start: 09/11/23 Expected End: 09/18/23 Therapy Time Individual Co-treatment Time In 1308 Time Out 1328 Minutes 20 Timed Code Treatment Minutes: 10 Minutes (1 gait) Lupe Santizo PTA Images from the original note were not included. Speech-Language Pathology SPEECH LANGUAGE PATHOLOGY [facility] Dysphagia Treatment Note Patient Name: Tita Keith Evaluation Date: 09/18/2023 Date of : 1935 Admission Date: 09/10/2023 11:21 AM Age: 87 y.o. Room[facility]Bed: [facility] A Subjective Patient alert and restless. Seen repositioned to most upright in bed. No visitors at bedside. Spoke with RN Jaswant who cleared pt for treatment. Pt was pulling at depend, assist with with repositioning and covering self back up with blankets. Oriented to Self only. Re-oriented to place and time. Pain: RN managing pain. PPE Worn: n95, face shield, gown, gloves Objective & Assessment Dysphagia Treatment # of Activities: 2 Dysphagia Activity 1: Assess tolerance of current diet. Dysphagia Activity 2: Assess advanced diet trials. Pt is on puree diet. H/o MBSS and modified diet. Pt with at risk for airway compromise with debility in the past. Pt was on Minced and moist diet with puree...unable to chew chopped for ground meats. Trial of soft and bite sized vs. Moist foods. Pt was spitting out hard solid bites of patricia cracker. He does not have upper denture. Improved mastication and clear of patricia cracker after softened in applesauce. +improved clearing and management. Trial of applesauce and additionally with softened patricia cracker with improved oral preparation and clearing. Suggest advance to Minced and moist with PUREE MEAT. Slight cough at conclusion of trial, not certain if rate of intake increased vs. Covid/cough. Plan & Recommendations Plan: Continue re-assessment of diet tolerance, prandial as able to determine further diet modification vs. Need for repeat MBS!.. Recommend Minced and moist solids, Thin liquids, and WITH PUREE MEATS and meds crushed in puree and the following precautions: - Upright positioning for all PO intake - Slow rate of intake - Alternate solid and liquids - slower rate to allow for reswallows. D/C Recommendations: to be determined Education Education Given: goals explained, diet recommendations Given To: patient Response: no evidence of learning Goals Patient Stated Goal: Pt did not state a goal. Encounter Problems Encounter Problems (Active) Swallowing Patient will tolerate the least restrictive diet consistency to allow for safe consumption of daily meals (Progressing) Start: 09/13/23 Expected End: 09/27/23 Patient will tolerate recommended food and liquid consistencies without clinical signs and symptoms of aspirations (Progressing) Start: 09/13/23 Expected End: 09/27/23 Therapy Time CLAIMS PROCESSOR Individual Minutes Time In: 1118 Time Out: 1133 Minutes: 15 BRITTNY Mattson Department of Family Medicine Daily Progress Note Subjective Chief Complaint (required for billing): COVID-19 Pt foing ok today sugars improved. Still waiting on ok to go back to snf he is still covid positive ROS: Review of Systems Objective BP 131/82 (BP Location: Right arm, Patient Position: Lying) Pulse 72 Temp 36.1 C (97 F) (Temporal) Resp 18 Ht 6' 2" (1.88 m) SpO2 94% BMI 15.88 kg/m Physical Exam Pt is alert and oriented x 2 Heent wnl Heart regular Lungs diminished throughout Abd benign Ext no edema Labs Notable Labs: Current Medications Medication orders reviewed, see MAR Assessment/Plan Principal Problem: COVID-19 Active Problems: 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) Acute hypoxic respiratory failure Covid 19 DM 2 with hyperglycemia Dementia HTN HPL Dysphagia Plan Cont current poc May not be able to return to snf until sep 21 if needs to quarantine for 10 days FEN:Adult diet Dysphagia - Pureed; Isolation Tray (Disposables) GI prophylaxis: NA DVT prophylaxis: lovenox # Anticipated Discharge - Date - ? - Location - Skilled Facility - Pending the following - KAYLEIGH STOUT DO 09/18/23 9:04 AM Pt getting testing done in his room at this time. Will re-attempt as able. KORI Carbone/Brooks Images from the original note were not included. 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 Weaned to RA. Denies cough or dyspnea Denies f/c/n/v/d, tolerating PO Awaiting dispo plans to return to SNF Objective: Vitals: Patient Vitals for the past 24 hrs: BP Temp Temp src Pulse Resp SpO2 09/17/23 0745 (!) 145/75 36.9 C (98.5 F) Temporal 77 16 93 % 09/16/23 2229 135/76 -- -- 69 -- -- 09/16/23 2044 (!) 169/90 36.1 C (96.9 F) Temporal 64 16 94 % Physical Exam Vitals and nursing note reviewed. Constitutional: General: He is awake. He is not in acute distress. Appearance: Normal appearance. He is not ill-appearing. HENT: Head: Normocephalic and atraumatic. Right Ear: External ear normal. Left Ear: External ear normal. Nose: Nose normal. Mouth/Throat: Mouth: Mucous membranes are moist. Pharynx: Oropharynx is clear. Eyes: Conjunctiva/sclera: Conjunctivae normal. Cardiovascular: Rate and Rhythm: Normal rate and regular rhythm. Heart sounds: Normal heart sounds. Pulmonary: Effort: Pulmonary effort is normal. Breath sounds: Normal breath sounds. Comments: Diminished bases, unlabored on RA Abdominal: General: Bowel sounds are normal. Palpations: Abdomen is soft. Tenderness: There is no right CVA tenderness or left CVA tenderness. Musculoskeletal: General: No swelling. Normal range of motion. Cervical back: Normal range of motion and neck supple. Skin: General: Skin is warm and dry. Findings: No rash. Neurological: General: No focal deficit present. Mental Status: He is alert and oriented to person, place, and time. Psychiatric: Mood and Affect: Mood normal. Behavior: Behavior normal. Behavior is cooperative. Labs: Recent Labs 09/17/2330 NA 140 K 3.1* CL 109* CO2 25 BUN 37* CREATININE 0.95 GLUCOSE 50* CALCIUM 9.2 Recent Labs 09/17/2330 WBC 7.0 HGB 13.7 HCT 39.5* PLT 182 Micro: No results for input(s): "COVID19" in the last 72 hours. 09/11 blood cx / + MRSE 09/11 sputum culture- mod respiratory rolando 09/10 COVID-19 + Lines: PIV Radiography/Echo/Other: Reviewed Antimicrobials, Start/End Dates: (Remdesivir) Impression: COVID-19 Ac Hypoxic Respiratory Failure- resolved MRSE in 1 set of blood cultures, likely contaminate AkiI- resolved Fever- resolved Leukopenia/ thrombocytopenia- resolved Plan: Completed Remdesivir Continue Decadron- management per primary ID will sign off at this time- please call with questions or concerns. Opportunity given for questions and all questions answered to the patient's satisfaction. Patient is in agreement with plan. Aliyah Raines APRN, CNP [facility] Infectious Disease 12:40 PM 09/17/2023 Images from the original note were not included. Speech-Language Pathology SPEECH LANGUAGE PATHOLOGY [facility] Dysphagia Treatment Note Patient Name: Tita Keith Evaluation Date: 09/17/2023 Date of : 1935 Admission Date: 09/10/2023 11:21 AM Age: 87 y.o. Room[facility]Bed: [facility] A Subjective Patient confused and cooperative. Seen upright in bed. Answers some basic questions with weak vocal quality. Follows some basic commands. No visitors at bedside. Spoke with RN, Karel, who cleared pt for treatment. Current Diet: Dietary Orders (From admission, onward) Start Ordered 09/14/23 5866 Supplement:Lunch; Chocolate Magic Cup Until discontinued Question Answer Comment Frequency Lunch Select supplement: Chocolate Magic Cup 09/14/23 1133 09/14/23 1133 Supplement:Breakfast, Dinner; Chocolate Ensure High Protein Until discontinued Question Answer Comment Frequency Breakfast Frequency Dinner Select supplement: Chocolate Ensure High Protein 09/14/23 1133 09/13/23 1604 Adult diet Dysphagia - Pureed; Isolation Tray (Disposables) Diet effective now Question Answer Comment Diet type Dysphagia - Pureed Tray Modifier: Isolation Tray (Disposables) 09/13/23 1604 Aspiration Precautions: - Upright positioning for all PO intake - Slow rate of intake - Small bites/sips - PO only when fully alert - Alternate solid and liquids - Consistent mouth care Oxygen: Oxygen Therapy: None (Room air) O2 Delivery Method: High flow nasal cannula O2 Flow Rate (L/min): 4 L/min Pain: RN managing pain. PPE Worn: n95, face shield, gown, gloves Objective & Assessment Activity 1: Diet tolerance Pt continues to present with confusion, impacting his ability to self-feed and answer questions adequately. Accepted small bite of puree with adequate manipulation & clearance, no pharyngeal phase deficits observed. Trialed mm & sbs trials with observed prolonged/disorganized mastication, bolus holding, and attempting to talk during mastication. Bolus clearance not fully achieved, with noted mild oral residue post liquid wash. Cough x2 observed. Recommending to continue with current diet and trial upgrades with CLAIMS PROCESSOR only. Plan & Recommendations Plan: Continue acute CLAIMS PROCESSOR therapy per initial plan of care and established goals. D/C Recommendations: to be determined Education Education Given: safety Given To: patient Response: verbalizes understanding Goals Patient Stated Goal: Patient unable to participate in goal setting at this time. Encounter Problems Encounter Problems (Active) Swallowing Patient will tolerate the least restrictive diet consistency to allow for safe consumption of daily meals (Progressing) Start: 09/13/23 Patient will tolerate recommended food and liquid consistencies without clinical signs and symptoms of aspirations (Progressing) Start: 09/13/23 Therapy Time CLAIMS PROCESSOR Individual Minutes Time In: 1055 Time Out: 1105 Minutes: 10 Janet Lauren CCC-CLAIMS PROCESSOR Department of Family Medicine Daily Progress Note Subjective Chief Complaint (required for billing): COVID-19 Pt had some low blood sugars during the night after being super high yesterday. He is doing ok this am ROS: Review of Systems Objective BP (!) 145/75 (BP Location: Left arm, Patient Position: Lying) Pulse 77 Temp 36.9 C (98.5 F) (Temporal) Resp 16 Ht 6' 2" (1.88 m) SpO2 93% BMI 15.88 kg/m Physical Exam Pt is alert and oriented x 2 Heent wnl Heart regular Lungs diminished throughout Abd benign Ext no edema Labs Notable Labs: Current Medications Medication orders reviewed, see MAR Assessment/Plan Principal Problem: COVID-19 Acute hypoxic respiratory failure Covid 19 DM 2 with hyperglycemia Dementia HTN HPL Dysphagia Plan Cont current poc May not be able to return to snf until dec 1 if needs to quarantine for 10 days FEN:Adult diet Dysphagia - Pureed; Isolation Tray (Disposables) GI prophylaxis: NA DVT prophylaxis: lovenox # Anticipated Discharge - Date - ? - Location - Skilled Facility - Pending the following - KAYLEIGH STOUT DO 09/17/23 9:06 AM Department of Family Medicine Daily Progress Note Subjective Chief Complaint (required for billing): DUID-19 Pt doing ok today no new issues overnight ROS: Review of Systems Objective BP 137/82 (BP Location: Right arm, Patient Position: Lying) Pulse 69 Temp 36.4 C (97.5 F) (Temporal) Resp 20 Ht 6' 2" (1.88 m) SpO2 95% BMI 15.88 kg/m Physical Exam Pt is alert and oriented x 2 Heent wnl Heart regular Lungs diminished throughout Abd benign Ext no edema Labs Notable Labs: Current Medications Medication orders reviewed, see MAR Assessment/Plan Principal Problem: COVID-19 Acute hypoxic respiratory failure Covid 19 DM 2 with hyperglycemia Dementia HTN HPL Dysphagia Plan Cont current poc May not be able to return to snf until dec 1 if needs to quarantine for 10 days FEN:Adult diet Dysphagia - Pureed; Isolation Tray (Disposables) GI prophylaxis: NA DVT prophylaxis: lovenox # Anticipated Discharge - Date - ? - Location - Skilled Facility - Pending the following - KAYLEIGH SOTUT DO 09/16/23 9:32 AM Department of Family Medicine Daily Progress Note Subjective Chief Complaint (required for billing): COVID-19 Pr doing ok today no new issues overnight ROS: Review of Systems Objective BP (!) 158/90 (BP Location: Left arm, Patient Position: Lying) Pulse 74 Temp 36.2 C (97.2 F) (Temporal) Resp 18 Ht 6' 2" (1.88 m) SpO2 100% BMI 15.88 kg/m Physical Exam Pt is alert and oriented x 2 Heent wnl Heart regular Lungs diminished throughout Abd benign Ext no edema Labs Notable Labs: Current Medications Medication orders reviewed, see MAR Assessment/Plan Principal Problem: COVID-19 Sepsis Acute hypoxic respiratory failure Covid 19 DM 2 with hyperglycemia Dementia HTN HPL Dysphagia Plan Cont current poc May not be able to return to snf until sep 21 if needs to quarantine for 10 days FEN:Adult diet Dysphagia - Pureed; Isolation Tray (Disposables) GI prophylaxis: NA DVT prophylaxis: lovenox # Anticipated Discharge - Date - ? - Location - Skilled Facility - Pending the following - KAYLEIGH STOUT DO 09/15/23 10:28 AM Nutrition Assessment Type and Reason for Visit: Initial Nutrition Recommendations/Plan: Continue diet as recommended by CLAIMS PROCESSOR during admit: Puree diet with thin liquids and meds crushed in Puree Per facility, patient was previously on a "Regular diet with cut up meat", +Glucerna TID (+180 kcal, 10 g protein. 240 mL/serving) Per MNT Protocol, added: Ensure High Protien BID (+160 kcal, 16 g protein, 240 mL/serving) Magic Cup with lunch daily (+290 kcal, 9 g protien, 120 mL/serving) Please record % meals and oral nutrition supplements consumed in flow-sheet for most accurate nutrient intake assessment. Obtain accurate weight for most accurate anthropometric data RDN to continue to monitor weekly: fluid accumulation, weight, skin integrity, trends in lab values, tolerance of diet and ability to meet nutrition needs, clinical status, discharge planning. Malnutrition Assessment: Malnutrition Status: Severe malnutrition Context: Chronic Illness Findings of the 6 clinical characteristics of malnutrition: Energy Intake: 75% or less estimated energy requirements for 1 month or longer (per facility "not a huge eater", +Glucerna TID) Weight Loss: Body Fat Loss: Severe body fat loss Buccal region, Triceps, Orbital Muscle Mass Loss: Severe muscle mass loss Temples (temporalis), Calf (gastrocnemius), Thigh (quadraceps), Clavicles (pectoralis & deltoids) Fluid Accumulation: No significant fluid accumulation Machine Attendant Strength: Not Performed Nutrition Assessment: 87 year old man with PMHx: dementia, HLD, HTN, DMII(A1C=8.6% on 01/18/23), and Dysphagia (MBSS 01/22/23 with mild oral and moderate pharyngeal deficits. Recommended Minced and Moist diet +pureed meats, and thin liquids). Recently family revoked DNR-CC for dermatology procedure scheduled on 09/25/23. He presented to [facility] ED with shortness of breath from nursing facility. Significant labs on admit: WBC(3.5), Hbg(12.3), Hct(36.7), Na+(134), BUN(50), Creatinine(1.63), BGL(289). Imaging on admit without acute process. +COVID and Respiratory PCR. Continues on IV fluid and decadron, final dose of remdesivir today. Noted difficulty eating, and CLAIMS PROCESSOR consulted and recommended: Pureed solids and Thin liquids with meds crushed in puree". RDN donned appropriate, required PPE to assess patient [id number]. Sitting up in bed at time of assessment with only adult diaper on. Severe sites of muscle and fat wasting observed, deferred NFPE. Observed 50% puree breakfast tray consumed, patient is agreeable to Chocolate Ensure shakes. Bed scale weight obtained: 54.5 kg or 120.1## (please note bed scale was not zeroed prior to obtaining). Per facility on a Regular diet, staff cuts up food and he is observed eating. Per staff he is not a huge eater , + 8 ounces of Glucerna TID. Reports that UBW has been between 127-128# since he became a resident in January 2023. Estimated Daily Nutrient Needs: Energy Requirements Based On: Kcal/kg Weight Used for Energy Requirements: Current Weight for Energy Calculation (kg): 54.5 kg Total Energy Requirements (kcals/day): 3900-9210 (30-35 kcal/kg CBW) Weight Used for Protein Requirements: Current Weight in Kg Used for Protein Requirements: 54.5 kg Estimated Total Protein (g/day): 65-82 (1.2-1.5 g protein/kg CBW) Estimated Daily Total Fluid (ml/day): per EMR Nutrition Related Findings: A+Ox1, +generalized Non-pitting edema. Inna score=11. +head tear. Meds: remdesivir, decadron, remeron, insulin, +IVF. Labs reviewed: CRP(60.0), BGL(238), PO minimal, +Puree diet per CLAIMS PROCESSOR Wound Type: Skin Tears (+skin tear to head) Current Nutrition Therapies: Adult diet Dysphagia - Pureed; Isolation Tray (Disposables) Current Oral Intake Average Meal Intake: 26-50% Average Supplements Intake: None Ordered Anthropometric Measures: Height: 188 cm (6' 2") Current Body Weight: 54.5 kg (120 lb 2.4 oz) Admission Body Weight: (NA) Usual Body Weight: 56.1 kg (123 lb 10.9 oz) (noted 01/20/23 per EMR review. Per facility has been weighing ~127-128# since his admit) % Weight Change (Calculated): -2.9 [place] Body Weight (lbs) (Calculated): 190 lbs [place] Body Weight (Kg) (Calculated): 86 kg % [place] Body Weight (Calculated): 63.2 % BMI (kg/m2) (Calculated): 15.4 Weight Adjustment For: No Adjustment BMI Categories: Underweight (BMI less than 22) age over 65 Nutrition Diagnosis: Severe malnutrition, In context of chronic illness related to inadequate protein-energy intake, cognitive or neurological impairment as evidenced by severe loss of subcutaneous fat, severe muscle loss Underweight related to inadequate protein-energy intake (predicted) as evidenced by BMI Nutrition Interventions: Nutrition Education/Counseling: Education not indicated Coordination of Nutrition Care: Speech Therapy, Continue to monitor while inpatient Plan of Care discussed with: patient Goals: Goals: PO intake 50% or greater, prior to discharge Nutrition Monitoring and Evaluation: Behavioral-Environmental Outcomes: None Identified Food/Nutrient Intake Outcomes: Food and Nutrient Intake Physical Signs/Symptoms Outcomes: Meal Time Behavior, Chewing or Swallowing, Biochemical Data, Hemodynamic Status, Weight, Skin, GI Status, Fluid Status or Edema, Nausea or Vomiting, Nutrition Focused Physical Findings Discharge Planning: Continue Oral Nutrition Supplement, Continue current diet Xuan Hogan RDN, LDN, Contact: *[phone] Images from the original note were not included. Speech-Language Pathology SPEECH LANGUAGE PATHOLOGY [facility] Dysphagia Treatment Note Patient Name: Tita Keith Evaluation Date: 09/14/2023 Date of : 1935 Admission Date: 09/10/2023 11:21 AM Age: 87 y.o. Room[facility]Bed: [facility] A Subjective Patient somnolent, confused and cooperative. Seen upright in bed. Answers few basic questions with weak vocal quality. Follows some basic commands. No visitors at bedside . Spoke with RNColleen, who cleared pt for treatment. Current Diet: Dietary Orders (From admission, onward) Start Ordered 09/13/23 1604 Adult diet Dysphagia - Pureed; Isolation Tray (Disposables) Diet effective now Question Answer Comment Diet type Dysphagia - Pureed Tray Modifier: Isolation Tray (Disposables) 09/13/23 1604 Aspiration Precautions: - Upright positioning for all PO intake - Slow rate of intake - Small bites/sips - PO only when fully alert - Alternate solid and liquids - Consistent mouth care Oxygen: Oxygen Therapy: None (Room air) O2 Delivery Method: High flow nasal cannula O2 Flow Rate (L/min): 4 L/min Pain: RN managing pain. PPE Worn: n95, face shield, gown, gloves Objective & Assessment Activity 1: Diet tolerance Per RN, pt's diet was only just downgraded to puree/thin with noted continued prolonged mastication. The appeared confused in today's therapy session and required short, 1 step directions from CLAIMS PROCESSOR. Tolerated thin liquids via straw & cup sip per bedside. Tolerated puree textures with full bolus clearance. Trialed minced/moist textures with noted prolonged mastication, bolus holding, and poor oral clearance. No overt s/s of aspiration/penetration observed at this time. Vocal quality remained weak before/after trials were provided. Plan & Recommendations Plan: Recommend Pureed solids and Thin liquids and meds crushed in puree and the following precautions: - Upright positioning for all PO intake - Slow rate of intake - Small bites/sips - Alternate solid and liquids - Consistent mouth care D/C Recommendations: to be determined Education Education Given: swallowing strategies, diet recommendations Given To: patient and RN Response: verbalizes understanding Goals Patient Stated Goal: Patient unable to participate in goal setting at this time. Encounter Problems Encounter Problems (Active) Swallowing Patient will tolerate the least restrictive diet consistency to allow for safe consumption of daily meals (Progressing) Start: 09/13/23 Patient will tolerate recommended food and liquid consistencies without clinical signs and symptoms of aspirations (Progressing) Start: 09/13/23 Therapy Time CLAIMS PROCESSOR Individual Minutes Time In: 954 Time Out: 1005 Minutes: 10 TRE AstorgaCLAIMS PROCESSOR Department of Family Medicine Daily Progress Note Subjective Chief Complaint (required for billing): COVID-19 Pt doing ok today no complaints. Apparently [facility] wont take him back without 2 neg covid tests or waiting the 10 days so he will be here a while ROS: Review of Systems Objective BP (!) 176/89 (BP Location: Right arm, Patient Position: Lying) Pulse 51 Temp 36.5 C (97.7 F) (Temporal) Resp 16 Ht 6' 2" (1.88 m) SpO2 96% BMI 15.88 kg/m Physical Exam Pt is alert and oriented x 2 Heent wnl Heart regular Lungs diminished throughout Abd benign Ext no edema Labs Notable Labs: Current Medications Medication orders reviewed, see MAR Assessment/Plan Principal Problem: COVID-19 Sepsis Acute hypoxic respiratory failure Covid 19 DM 2 with hyperglycemia Dementia HTN HPL Dysphagia Plan Cont current poc May not be able to return to snf until dec if needs to quarantine for 10 days FEN:Adult diet Dysphagia - Pureed; Isolation Tray (Disposables) GI prophylaxis: NA DVT prophylaxis: lovenox # Anticipated Discharge - Date - ? - Location - Skilled Facility - Pending the following - KAYLEIGH STOUT DO 09/14/23 9:58 AM Department of Family Medicine Daily Progress Note Subjective Chief Complaint (required for billing): COVID-19 Pt having difficulty swallowing this am speech is on consult. Otherwise stable oxygenation improved ROS: Review of Systems Objective BP 127/87 (BP Location: Right arm, Patient Position: Lying) Pulse 63 Temp 36.2 C (97.2 F) (Temporal) Resp 16 SpO2 92% Physical Exam Pt is alert and oriented x 2 Heent wnl Heart regular Lungs diminished throughout Abd benign Ext no edema Labs Notable Labs: Current Medications Medication orders reviewed, see MAR Assessment/Plan Principal Problem: COVID-19 Sepsis Acute hypoxic respiratory failure Covid 19 DM 2 with hyperglycemia Dementia HTN HPL Dysphagia Plan Speech eval pureed diet Cont remdesivir for total 5 days. FEN:Adult diet Dysphagia - Pureed GI prophylaxis: NA DVT prophylaxis: lovenox # Anticipated Discharge - Date - 2-3 d - Location - Skilled Facility - Pending the following - auth KAYLEIGH STOUT DO 09/13/23 9:57 AM Images from the original note were not included. Speech-Language Pathology SPEECH LANGUAGE PATHOLOGY [facility] Bedside Swallow Evaluation Patient Name: Tita Keith Evaluation Date: 09/13/2023 Date of : 1935 Admission Date: 09/10/2023 11:21 AM Age: 87 y.o. Room[facility]Bed: [facility] IMPRESSION: S/s oropharyngeal dysphagia. No overt clinical s/s pulmonary compromise with PO. Risk factors for aspiration include dementia, history of oropharyngeal dysphagia, and confusion. RECOMMENDATION: Recommend Pureed solids and Thin liquids and meds crushed in puree and the following precautions: - Upright positioning for all PO intake - Slow rate of intake - Small bites/sips - No straws - Alternate solid and liquids - Swallow x 2 per bolus Pt would benefit from skilled acute CLAIMS PROCESSOR services to address oropharyngeal dysphagia. Frequency: 3 days/wk for 2 weeks Barriers: Confusion and Limited insight into deficits Prognosis: good D/C Recommendations: to be determined Subjective Patient alert and cooperative. Seen upright in bed. Answers few basic questions with clear, breathy vocal quality. Follows few basic commands. No visitors at bedside. Spoke with ISABEL Macias who cleared pt to be evaluated. Dysphagia History: Retrospective chart review revealed a history of CLAIMS PROCESSOR services as follows: Pt was seen from 01/18/2023-01/26/2023 due to oropharyngeal dysphagia. Prior MBS completed on 01/22/2023 with results indicating Pt demonstrated mild oral and moderate pharyngeal deficits related to disorganized oral transit, loss of bolus to pharynx prior to swallow. Pharyngeal deficits include reduced tongue base and pharyngeal constriction w/ incomplete epiglottic deflection resulting in vallecular and piriform residuals. Eventual laryngeal vestibule penetration and accumulation and eventual vocal cord penetration and tracheal aspiration trace amounts (accumulating). Swallowing function is suggestive of NPO with alternate feeds, however pt does have advanced dementia and is not appropriate for feeding tube (feeding tube does not improve quality of life, nor does it eliminate aspiration in dementia pts) Therefore recommend continue most lenient diet of minced and moist with thin liquids. Slow rate--to allow reswallows, alternate liquids after solid. Expectorate and clear at conclusion of meal to clear residuals as able. Baseline Diet: Minced and moist solids, pureed meats; thin liquids Current Diet: Dietary Orders (From admission, onward) Start Ordered 09/13/23 0907 Adult diet Regular; Isolation Tray (Disposables); 5 carb choices (75 gm/meal) Diet effective now Question Answer Comment Diet type Regular Tray Modifier: Isolation Tray (Disposables) Carbohydrate restriction: 5 carb choices (75 gm/meal) 09/13/23 0906 Tube Feeding: no Tracheostomy: no Recent Chest Xray/CT of Chest: XR chest 1 view 09/10/2023 Impression No acute process. Report Dictated on Electronically Signed By: Tal Patterson DO Electronically Signed Date/Time: 09/10/2023 12:29 PM EST Oxygen: Oxygen Therapy: None (Room air) O2 Delivery Method: High flow nasal cannula O2 Flow Rate (L/min): 4 L/min Past Medical History: Past Medical History: Diagnosis Date Dementia (HCC) Diabetes mellitus (HCC) Hyperlipidemia Hypertension Past Surgical History: Past Surgical History: Procedure Laterality Date BACK SURGERY Admission Diagnosis: Patient Active Problem List Diagnosis Date Noted COVID-19 09/10/2023 Severe malnutrition ([facility] ([facility]) 01/20/2023 Hyperglycemia 01/19/2023 Hyperosmolar hyperglycemic state (HHS) ([facility]) 01/17/2023 New onset type 2 diabetes mellitus ([facility]) ([facility]) 03/01/2022 History of Present Illness: Tita Keith is a 87 y.o. person who presents to the emergency department with concern for shortness of breath. Has a history of dementia diabetes skin cancer from nursing facility. Initially came in with DNR CC paperwork although patient was not able to provide much details on this or his presentation. Reportedly developed a fever last night was tested positive for COVID-19. Was placed on CPAP by EMS as he was hypoxic which he normally is not. He does appear more somnolent. Discussed with patient's power of city attorney and daughter who noted that she revoked his hospice last week as he had a skin biopsy of his head although does not believe he would want intubation or extreme measures. Did note that would likely be amenable to at least more comfort measures as well as treatment of underlying COVID-19 as well as with oxygen therapy and fluids. He was started on iv remdesivir and decadron; I have also consulted palliative care. He is doing a little better this am still on high flow oxygen. Patient Complaint: I want a drink of cold water. Pain: RN managing pain. PPE Worn: n95, face shield, gown, gloves Objective Bedside swallow eval completed. Oral Motor Mechanism Facial Movement (CN VII) - WFL Labial Structure/Function (CN VII) - WFL Lingual Structure/Function (CN XII) - Generalized weakness Volitional Swallow - Present Volitional cough - weak/ineffective Dentition - Adequate Patient was not able to participate with a formal oral motor evaluation. Oral Hygiene: moist, clean Swallowing Examination PO Trials - thin liquid (cup edge) - puree (teaspoon) Oral Phase Pt with adequate oral receipt of PO trials. No anterior spillage. Mastication with pureed solids appeared disorganized and prolonged. Oral transit time appears prolonged. No oral residue. Additional Observations: Patient refused all offers of regular texture and minced and moist solids offered. Pharyngeal Phase Hyolaryngeal excursion clinically appears reduced and delayed per palpation. 3-4 swallows palpated per bolus, likely indicative of impaired pharyngeal clearance. No overt clinical s/s pulmonary compromise as evidenced by no cough, no throat clear, and no change in vocal quality. Additional Observations: RN reports difficulty with swallowing medications whole in puree, pocketing regular texture solids in buccal cavities, and prolonged mastication with regular texture solids. Education Education Given: swallowing strategies, diet recommendations Given To: patient and RN Response: verbalizes understanding Goals Patient Stated Goal: I want a cold drink of water. Encounter Problems Encounter Problems (Active) Swallowing Patient will tolerate the least restrictive diet consistency to allow for safe consumption of daily meals Start: 09/13/23 Patient will tolerate recommended food and liquid consistencies without clinical signs and symptoms of aspirations Start: 09/13/23 Therapy Time CLAIMS PROCESSOR Individual Minutes Time In: 923 Time Out: 934 Minutes: 11 Shannon Badillo CCC-CLAIMS PROCESSOR Images from the original note were not included. [facility] - Infectious Diseases Attending Progress Note Subjective: F/U for Sepsis and COVID-19 with hypoxia. He was seen, found him alert, laying on bed, answered few questions, Pox 95% in RA, fever decreased, did not cough during my exam, were not using accessory respiratory muscles, appeared confused and ill. He was admitted on 09/10/23 via EMS from a facility with fever, SOB, and acute mental status change; on presentation, he was febrile (T 102.4 F), tachycardic (P 118), tachypneic (R 24), Pox 93%- which was decreased to 89%; labs showed leukopenia (3.5k), anaemia (Hg 12.3), thrombocytopenia (99k), elevated creatinine (1.63), and SARS-CoV2 pcr was positive; he was started on O2 through positive pressure mask, Pox improved to 96%, O2 was changed to 4L NC, remdesivir and dexamethasone were started. He has h/o dementia, DM, and skin cancer. He was examined; notes, labs, imaging were reviewed and treatment plan was discussed. Objective: Vitals: Patient Vitals for the past 24 hrs: BP Temp Temp src Pulse Resp SpO2 09/12/23 0822 (!) 157/96 36.5 C (97.7 F) Temporal 72 16 95 % 09/11/23 2212 138/73 36.5 C (97.7 F) Temporal 70 16 93 % Physical Exam Vitals and nursing notes were reviewed. Constitutional: General: He is in acute distress. Appearance: He is ill-appearing. HENT: Mouth/Throat: Pharynx: Oropharynx is clear. Eyes: Extraocular Movements: Extraocular movements intact. Pupils: Pupils are equal, round, and reactive to light. Cardiovascular: Rate and Rhythm: Regular rhythm. Tachycardia present. Pulmonary: Effort: Pulmonary effort is normal. No accessory muscle usage. Breath sounds: Decreased breath sounds and rhonchi present. Chest: Chest wall: No tenderness. Musculoskeletal: General: Normal range of motion. Cervical back: Normal range of motion. Right lower leg: No edema. Left lower leg: No edema. Skin: General: Skin is warm. Capillary Refill: Capillary refill takes 2 to 3 seconds. Neurological: Mental Status: He is disoriented. Labs: Recent Labs 09/10/23 1219 09/11/23 0635 09/12/23 0521 NA 134* 138 135 K 4.2 4.6 4.4 CL 102 106 107 CO2 BUN 50* 42* 45* CREATININE 1.63* 1.27* 1.06 GLUCOSE 289* 232* 254* CALCIUM 8.4 8.8 8.2* PROT -- 7.3 6.5 BILITOT -- 0.5 0.4 ALKPHOS -- 77 79 AST -- 41 70* ALT -- 70* 48 Recent Labs 09/10/23 1219 09/11/23 1031 09/12/23 0521 WBC 3.5* 6.5 4.8 HGB 12.3* 12.2* 11.9* HCT 36.7* 36.9* 34.6* PLT 99* 97* 96* LYMPHOPCT 13.3* 10.8* 11.2* MONOPCT 3.5 4.0 2.2 BASOPCT 0.2 0.2 0.3 NEUTROABS 2.9 5.5 4.2 CRP 193.8 207.3 221.0 LDH 182 Ferritin 238 Micro: No results for input(s): "COVID19" in the last 72 hours. 09/11/2023 1013 09/12/2023 1401 Blood culture Site #1 - Suspected Infection [[id number]] Blood, Venous Preliminary result Component Value Blood Culture No growth at 24 hours P 09/11/2023 1013 09/12/2023 0502 Blood culture Site #2 - Suspected Infection [[id number]] (Abnormal) Blood, Venous Preliminary result Component Value Blood Culture Gram-positive cocci Panic P 09/11/2023 1013 09/12/2023 0502 Blood Culture Identification - Anaerobic [[id number]] (Abnormal) Blood, Venous Final result Component Value Staphylococcus epidermidis Detected Abnormal mecA/C (MRSE/MRSL) Detected Abnormal 09/11/2023 0635 09/12/2023 0708 Respiratory culture and Stain [[id number]] (Abnormal) Sputum Preliminary result Component Value Respiratory culture Many respiratory rolando present. P Gram Stain Result Many Polymorphonuclear leukocytes per low power field Abnormal P Few Epithelial cells per low power field Abnormal P Many Gram positive cocci Abnormal P Few Gram negative bacilli Abnormal P Few Gram positive bacilli Abnormal P Rare Gram negative diplococci Abnormal P 09/10/2023 1219 09/10/2023 1318 SARS-CoV-2, Flu A/B, and RSV Combo [[id number]] (Abnormal) Swab from Nasopharynx Final result Component Value SARS-CoV-2 Detected Abnormal Respiratory Syncytial Virus Not Detected Influenza A Not Detected Influenza B Not Detected Lines: PIV site ok Radiography/Echo/Other: XR chest 1 view [[id number]] Collected: 09/10/23 1228 Order Status: Completed Updated: 09/10/23 1230 Narrative: [facility] 1935 [id number] Exam Date/Time: 09/10/2023 12:21 Procedure: XR CHEST 1 VIEW Ordering Provider: PHILLIPS JAY Reason For Exam: hypoxia PORTABLE CHEST: INDICATION: Hypoxia COMPARISON: 01/17/2023 Obtained at 1203 hours. A single portable AP radiograph of the chest was obtained. The heart is normal in size. The mediastinal silhouette is normal. The lungs are clear. There are no effusions or infiltrates. There is no pleural thickening. The osseous structures are unremarkable. Impression: No acute process. Report Dictated on Electronically Signed By: Tal Patterson DO Electronically Signed Date/Time: 09/10/2023 12:29 PM EST Antimicrobials, Start/End Dates: Remdesivir 09/10- Impression: Sepsis. COVID-19 infection. Acute hypoxic respiratory failure. Improved. Dementia. Skin cancer. ALFRED. Improved. Plan: Pt sick due to sepsis and hypoxia due to C-19 infection. Fever decreased, hemodynamically ok. Oxygenation improved. CXR unremarkable. Crp remained significantly elevated (193.8). Continue remdesivir for a total of 5 days. Hypoxia resolved, dexamethasone may be discontinued. Pancytopenia improved. MRSE in 1 blood cx may not be significant. Please call with any further question. Total time 50 minutes on this day of encounter includes counseling, coordinating plan of care, record and documentation review before and after visit including documentation and time not explicitly included on EMR time stamp for accounting for open encounter. Images from the original note were not included. Palliative Care Progress Note Chief Complaint: Tita Keith is a 87 y.o. male with chief complaint of covid. Palliative Care is signing off, please re-consult if needed. (add SIGNOFFTRANSITION dotphrase below) Assessment/Plan Covid - dx 09/10/23 - droplet isolation - resides in [facility]--they are aware of covid status, his roommate has continued to test negative for covid as has all residents and staff - per primary: dexamethasone, remdesivir 12/24--suspect completion before returning to snf - on room air without concerns, admits to breathing easy - was on morphine concentrate at facility will order prn, 5mg q2h and monitor needs for pain or air hunger--without need since ordering Dementia - resides at [facility] - with behaviors as per primary and home list quetiapine scheduled, stopped as not supposed to be on this per facility - med list faxed and placed on chart in ER - continue prn lorazepam 0.25mg q4h prn--without need - was on hospice, revoked to have procedure with dermatology, dtr aware can return with hospice or wait until dermatology surgery which is scheduled for 09/25/23. - would recommend upon dc return to ECF WITHOUT hospice until surgery performed then can re-enroll. Surgery is less than 2 weeks away, if changes at facility can enroll sooner, doubtful that would need to happen though HTN/DM/HLD - per primary--of note lantus at facility was 5 units nightly, adjusted yesterday Reduced appetite - per facility yesterday had been doing and eating well there Palliative Care Encounter -full code--changed to [id number] icu transfer, if decompensates and needs hospice here will do that - call to dtr Kayleigh at [phone], introduced myself and service, why consulted provided medical updates, and plans. - without LW or HCPOA in epic - dtr Kayleigh is primary emergency contact - goals clear, without symptoms will sign off at this time. Tita Keith has been seen in consultation by [facility] during their admission to [facility]. They currently have no uncontrolled symptoms and have established goals of care and we have signed off of their case. The patient has established follow-up with ECF at [facility] . Total of 40 minutes spent on this encounter including Chart review, Patient visit and exam, Documentation in EHR, Care coordination, and Communicating with primary attending or other consultants. Discharge planning: Signing off, discharge disposition per primary team Patient meets criteria for general inpatient hospice care including the following: N/A - Palliative Care Patient Referrals to: None Discussed patient and the plan of care with the other interdisciplinary team (IDT) members of Palliative Care Team, and with Primary Attending, Patient, and Floor Nurse Insert attestation statement here if applicable (.disupervision) or (.npattest) I have discussed the patient's case and plan of care with my collaborating physician Dr. Moore Subjective: Subjective/Events Since last seen: admitted to 4S. Awake in bed in NAD, without pain, CP, abdominal pain, breathing easy and not labored, no nausea, vomiting, unknown BM, tells me ate eggs for breakfast. No family at bedside Tita Keith is a 87 y.o. male residing at [facility] for 24 hour care and supervision for underlying dementia, DM, HTN, HLD, skin cancer, had been on hospice services, but revoked to have biopsy completed last week. Had increased work of breathing, prompting SBHER, tested positive for covid, plans for admitting for treatment. Palliative care consulted for goals of care. Goals of care:Continue Current Management Advance Directives: DNR-CCA Surrogate: Child Prognosis: unknown Spiritual assessment: No spiritual distress identified Bereavement and grief: Grief Issues Not Identified Review of Systems ROS: See palliative care ROS/ESAS below; All other systems were reviewed and are negative. [place] Symptom Assessment Score [place] Score Pain Score 0 Tiredness Score 0 Nausea Score 0 Depression Score 0 Anxiety Score 0 Drowsiness Score 0 Anorexia Score (0= eating well, 10= not eating) 0 Wellbeing Score (10= worst sense of well-being) 0 Constipation 0 Dyspnea Score (0= no shortness of breath) 0 FLACC Scale (For Pain Assessment of the Non-Verbal Patient) Patient is verbal Assessed by: patient and provider. 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 Objective: Physical Exam BP (!) 157/96 (BP Location: Right arm, Patient Position: Lying) Pulse 72 Temp 36.5 C (97.7 F) (Temporal) Resp 16 SpO2 95% Physical Exam Vitals and nursing note reviewed. Constitutional: Appearance: He is underweight. He is ill-appearing. HENT: Head: Normocephalic and atraumatic. Nose: Nose normal. Mouth/Throat: Mouth: Mucous membranes are moist. Eyes: General: Right eye: No discharge. Left eye: No discharge. Cardiovascular: Rate and Rhythm: Normal rate and regular rhythm. Pulses: Normal pulses. Heart sounds: Normal heart sounds. No murmur heard. Comments: No edema B post tib/dorsalis pedis palpable Pulmonary: Effort: Pulmonary effort is normal. Breath sounds: Normal breath sounds. Abdominal: General: Bowel sounds are normal. There is no distension. Palpations: Abdomen is soft. There is no mass. Genitourinary: Comments: External male catheter/incontinent Musculoskeletal: Cervical back: Normal range of motion and neck supple. Right lower leg: No edema. Left lower leg: No edema. Skin: General: Skin is warm and dry. Comments: fragile Neurological: Mental Status: He is disoriented. Comments: Pleasantly confused Psychiatric: Mood and Affect: Mood normal. Behavior: Behavior normal. Behavior is cooperative. Comments: No agitation Current Medications: Inpatient medications reviewed: yes Home medications reviewed: yes OARRS Reviewed: copied from initial consult: Yes-no reportable medications, patient resided in [facility] 24 Hour PRN Meds: no PRN medications in 24 hours Results/Verification of Data Review Objective data reviewed (be specific which labs, imaging reports with dates reviewed): MAR/vitals/labs reviewed 09/12/23 Data in Support of Terminal Illness: Is patient hospice appropriate? no Nutrition rescreen completed. Pt referred to RD for malnutrition, new onset DM, and cachexia. Department of Family Medicine Daily Progress Note Subjective Chief Complaint (required for billing): COVID-19 Pt feeling better today on room air ROS: Review of Systems Objective BP (!) 157/96 (BP Location: Right arm, Patient Position: Lying) Pulse 72 Temp 36.5 C (97.7 F) (Temporal) Resp 16 SpO2 95% Physical Exam Pt is alert and oriented x 2 Heent wnl Heart regular Lungs diminished throughout Abd benign Ext no edema Labs Notable Labs: Current Medications Medication orders reviewed, see MAR Assessment/Plan Principal Problem: COVID-19 Sepsis Acute hypoxic respiratory failure Covid 19 DM 2 Dementia HTN HPL Plan Cont with current poc Anticipate 3-5 d remdesivir per ID Back to snf when able FEN:Adult diet Regular; 5 carb choices (75 gm/meal) GI prophylaxis: NA DVT prophylaxis: lovenox # Anticipated Discharge - Date - 2-3 d - Location - Skilled Facility - Pending the following - KAYLEIGH STOUT DO 09/12/23 9:22 AM Images from the original note were not included. PHYSICAL THERAPY [facility] Initial Evaluation Name/MRN: Tita Keith ([id number]) Evaluation Date: 09/11/2023 Date of : 1935 Admission Date: 09/10/2023 11:21 AM Age: 87 y.o. Room/Bed: B4-453/B4-453 A Discharge Recommendation: SNF Equipment Needed: TBD at next level of care Assessment IMPRESSION: Pt presents with decreased functional mobility, decreased strength, decreased safety awareness, decreased endurance and impaired balance. Pt has decreased balance, poor activity tolerance, decreased safety awareness and weakness requiring physical assist of 2 person in order to safely complete minimal bed level mobility placing him at a high risk of falling. Pt could benefit from skilled PT in order to address his decreased functional mobility, strength, balance and safety. Pt has medical history as listed below that that contributes to his clinical presentation. Patients recent baseline is unclear, however per documentation he was ambulating with assist and a walker. Currently patient is unsafe to return to his prior level of supervision secondary to his increased need for assist and fall risks with mobility. Diagnosis: Pt admitted 09/10 with AMS and SOB. Pt found to have COVID. Pt baseline unclear at this time, h/o dementia. Pt recently revoking hospice for biopsy however facility reporting he was ambulating with a walker and required assist with most ADLs. Prognosis: fair Performance Deficits /Impairments: Decreased Functional Mobility, Decreased Strength, Decreased Safety Awareness, Decreased Cognition, Decreased Endurance, and Decreased Balance Decision Making: Medium Complexity Subjective Patient pleasant agreeable to therapy session this date. Observation: 10 L O2 with continuous O2 monitoring, pt initially pleasant however with increased agitation patient removed O2 for ~ 5 minutes, SpO2 maintained 88-95% on room air and O2 redonned within session and all lines intact end of session with RN present in room Vitals: Pts SpO2 remained >88% throughout session Pain: Pt denies any current pain. Past Medical History: Past Medical History: Diagnosis Date Dementia (HCC) Diabetes mellitus (HCC) Hyperlipidemia Hypertension Past Surgical History: Past Surgical History: Procedure Laterality Date BACK SURGERY Admission Diagnosis: Patient Active Problem List Diagnosis Date Noted COVID-19 09/10/2023 Severe malnutrition (CMS/HCC) (HCC) 01/20/2023 Hyperglycemia 01/19/2023 Hyperosmolar hyperglycemic state (HHS) ([facility]) 01/17/2023 New onset type 2 diabetes mellitus ([facility]) ([facility]) 03/01/2022 Medical Precautions: Droplet Plus Proper PPE donned/doffed in accordance with facility standards. Fall Risk: [place] Fall Risk Score: 60 (High Risk) Precautions/Restrictions: N/A Family/Caregiver Present: none Overall Cognitive Status: Exceptions - Arousal/alertness: delayed responses to stimuli - Following commands: inconsistently follows commands - Attention span: difficulty dividing attention - Memory: decreased recall of recent events, decreased short term memory, and decreased lobsterman memory - Safety judgement: decreased awareness of need for assistance and decreased awareness of need for safety - Problem solving: assistance required to generate solutions, assistance required to implement solutions, assistance required to identify errors made, assistance required to correct errors made, and decreased awareness of errors - Insights: not aware of deficits - Initiation: requires cues for some - Sequencing: requires cues for some - h/o dementia Overall Orientation Status: Oriented to Person Vision: no visual deficits Hearing: normal Social/Functional History Patient admitted from SNF. Assistive Equipment: front wheeled walker Prior Level of Function ADL Assistance: Needs Assist Ambulation Assistance: Needs Assistance Device(s) used: front wheeled walker Transfer Assistance: Needs Assist Objective Lower Extremity Assessment AROM: WFL Strength: Pt demonstrates >3/5 with mobility, unable to formally assess due to variable command following Bed Mobility: Supine to sit: Max Assist, x2 Person Assist Sit to supine: Max Assist, x2 Person Assist Scooting: Max Assist, x2 Person Assist Pt completed with max A x2 for BLE mgmt and trunk mgmt. Pt denies dizziness with positional changes. Pt required verbal and tactile cues to initiate movement with bed mobility. Pt sitting EOB 10 minutes with initial min A progressing to SBA. Pt becoming agitated while sitting EOB and began pulling on OT/PT's hands and pulling on lines and removing oxygen. Pt refusing to allow oxygen be replaced. Pt desat to 88% sitting EOB. Eventually agreeable to allow oxygen to be replaced, and returned to high 90s. Transfers NT due to safety concerns. Ambulation Did not assess this session. Outcome Measures AM-PAC How much HELP from another person do you currently need Turning from your back to your side while in a flat bed without using bedrails?: A Lot Moving from lying on your back to sitting on the side of a flat bed without using bedrails?: A Lot Moving to and from a bed to a chair (including a wheelchair)?: A Lot Standing up from a chair using your arms (wheelchair or bedside chair)?: A Lot Walking in a hospital room?: Total Stair climbing assessed?: No AM-PAC Inpatient Mobility Raw Score (No Stairs) : 9 Plan Pt would benefit from skilled acute PT services to address Strengthening, ROM, Balance Training, Functional Mobility Training, Endurance Training, Gait Training, Neuromuscular Re-Education Training, Cognitive Reorientation, Pain Management, Safety Education and Training, Patient/Caregiver Training, Equipment Evaluation/Education, Positioning, and Cognitive/Perceptual Training. Frequency: 5 visits - trial Barriers: Confusion, Cognitive deficit, and Decreased endurance Safety/Education Safety Safety Devices in place: All fall risk precautions in place, call light within reach, left in bed, patient at risk for falls, nurse notified, and no alarms engaged upon entry Restraints: N/A Education Education Given To: patient Education Provided: PT Role, PT Goals, Plan of Care, Fall Prevention Education, Benefits of Increasing Activity, and functional mobility training Education Method: Verbal and Demonstration Barriers to Learning: Cognition Education Outcome: Continued Education Needed Goals Patient Stated Goal: Patient unable to participate in goal setting at this time. Encounter Problems Encounter Problems (Active) Balance Patient will maintain static standing balance for 2 minutes with SBA in order to demonstrate decreased risk of falling. Start: 09/11/23 Expected End: 09/18/23 Exercise Patient will complete lower extremity exercises for 1-2 sets / 10 reps in order to improve strength and activity tolerance for mobility. Start: 09/11/23 Expected End: 09/18/23 Mobility Patient will ambulate 25 feet with min assist and least restrictive device in order to improve safety and independence with mobility. Start: 09/11/23 Expected End: 09/18/23 Transfers Patient will perform bed mobility with SBA in order to improve independence and prepare for out of bed mobility. Start: 09/11/23 Expected End: 09/18/23 Patient will complete functional transfers with least restrictive device with min assist in order to prepare for ambulation. Start: 09/11/23 Expected End: 09/18/23 Therapy Time Individual Co-treatment Time In 0945 Time Out 1006 Minutes 21 Kerline Bhat, PT Patient's Physical Therapy Plan of Care supervision is transferred to a [facility] Therapy Services Physical Therapist. Goals and/or treatment plan was established in collaboration with patient/family/other representatives. Images from the original note were not included. OCCUPATIONAL THERAPY [facility] Initial Evaluation Name/MRN: Tita Keith ([id number]) Evaluation Date: 09/11/2023 Date of : 1935 Admission Date: 09/10/2023 11:21 AM Age: 87 y.o. Room/Bed: 05/29 Discharge Recommendation: SNF and Continue to assess pending progress Equipment Needed: TBD at next level of care Assessment IMPRESSION: Pt admitted 09/10 with AMS and SOB. Pt found to have COVID. Pt baseline unclear at this time. Pt recently revoking hospice for biopsy however facility reporting he was ambulating with a walker and required assist with most ADLs. At time of eval, pt is max-total A with ADLs and max A x2 for bed mobility. Pt unsafe to attempt transfers at this time. Pt is limited by cognition, weakness, balance deficits, poor activity tolerance, new O2 needs, and safety. Pt is functioning below baseline and would benefit from skilled OT services on a trial basis to maximize safety and independence with ADLs and functional mobility. Rec SNF. Performance Deficits /Impairments: Increased Pain, Decreased Functional Mobility, Decreased ADL status, Decreased Strength, Decreased Safety Awareness, Decreased Cognition, Decreased Endurance, Decreased Balance, and Decreased Posture Prognosis: Fair Decision Making: Medium Complexity Subjective Pt supine in bed at arrival. Pt ok to see per RN. ED tele, O2, and PIV in tact. Pt was pleasant and agreeable to OT eval. Pain: Pt denies any current pain. Past Medical History: Past Medical History: Diagnosis Date Dementia (HCC) Diabetes mellitus (HCC) Hyperlipidemia Hypertension Past Surgical History: Past Surgical History: Procedure Laterality Date BACK SURGERY Admission Diagnosis: Patient Active Problem List Diagnosis Date Noted COVID-19 09/10/2023 Severe malnutrition (CMS/HCC) ([facility]) 01/20/2023 Hyperglycemia 01/19/2023 Hyperosmolar hyperglycemic state (HHS) ([facility]) 01/17/2023 New onset type 2 diabetes mellitus (CMS/HCC) ([facility]) 03/01/2022 Medical Precautions: Droplet Plus Proper PPE donned/doffed in accordance with facility standards. Fall Risk: [place] Fall Risk Score: 60 (High Risk) Precautions/Restrictions: N/A Family/Caregiver Present: none Overall Cognitive Status: Exceptions - Arousal/alertness: appropriate responses to stimuli - Following commands: follows one step commands with increased time, follows one step commands with repetition, and inconsistently follows commands - Attention span: difficulty attending to directions - Memory: decreased recall of biographical information, decreased recall of precautions, decreased recall of recent events, decreased short term memory, and decreased correction memory - Safety judgement: decreased awareness of need for assistance and decreased awareness of need for safety - Problem solving: assistance required to generate solutions, assistance required to implement solutions, assistance required to identify errors made, assistance required to correct errors made, and decreased awareness of errors - Insights: not aware of deficits - Initiation: requires cues for all - Sequencing: requires cues for all Overall Orientation Status: Oriented to Person Social/Functional History Patient admitted from SNF. Assistive Equipment: front wheeled walker Prior Level of Function ADL Assistance: Needs Assist Ambulation Assistance: Independent Device(s) used: front wheeled walker Transfer Assistance: Independent Objective ADLs No formal ADLs completed this date d/t pt difficulty following commands. Pt likely to require total A for LB ADLs and bed level toileting and max A for UB ADLs evidenced by weakness, decreased functional reach, and cognition. Upper Extremity Assessment AROM: WFL mildly limited shoulder ROM PROM: WFL Strength: Exceptions: grossly 4/5 Vision: no visual deficits Hearing: normal Bed Mobility Supine to sit: Max Assist, x2 Person Assist Sit to supine: Max Assist, x2 Person Assist Scooting: Max Assist Pt completed with max A x2 for BLE mgmt and trunk mgmt. Pt denies dizziness with positional changes. Pt required verbal and tactile cues to initiate movement with bed mobility. Pt sitting EOB 10 minutes with initial min A progressing to SBA. Pt becoming agitated while sitting EOB and began pulling on OT/PT's hands and pulling on lines and removing oxygen. Pt refusing to allow oxygen be replaced. Pt desat to 88% sitting EOB. Eventually agreeable to allow oxygen to be replaced, and returned to high 90s. Transfers/Functional Mobility Unsafe to attempt transfers this date d/t pt cognition and weakness Device(s) used: none AM-PAC AM-PAC Inpatient Daily Activity Raw Score: 10 ADL Inpatient CMS G-Code Modifier: CL Plan Pt would benefit from skilled acute OT services to address Strengthening, ROM, Balance Training, Functional Mobility Training, Endurance Training, Cognitive Reorientation, Pain Management, Safety Education and Training, Patient/Caregiver Training, Equipment Evaluation/Education, Positioning, Self-Care/ADL Training, and Cognitive/Perceptual Training. Frequency: 8 visits during current hospital admission or until additional recommendations are made Barriers: Pain, Confusion, Cognitive deficit, Limited safety awareness, Limited insight into deficits, Decreased endurance, Upper extremity weakness, and Lower extremity weakness Prognosis: fair Safety/Education Safety Safety Devices in place: All fall risk precautions in place, call light within reach, left in bed, gait belt, patient at risk for falls, nurse notified, and no alarms engaged upon entry Restraints: N/A Education Education Given To: patient Education Provided: OT Role, Plan of Care, Orientation, and Fall Prevention Education Education Method: Verbal Barriers to Learning: Cognition Education Outcome: Continued Education Needed Goals Patient Stated Goal: Patient unable to participate in goal setting at this time. Encounter Problems Encounter Problems (Active) Dressing Upper Extremities Patient will complete upper body dressing with SBA Start: 09/11/23 Expected End: 09/19/23 Grooming Patient will complete daily grooming tasks with SBA Start: 09/11/23 Expected End: 09/19/23 Mobility Patient will demonstrate functional ambulation with min A Start: 09/11/23 Expected End: 09/19/23 Toileting Patient will complete toileting tasks at bedside commode with min assist. Start: 09/11/23 Expected End: 09/19/23 Transfers Patient will complete functional transfer with rolling walker with min assist in order to prepare for ambulation. Start: 09/11/23 Expected End: 09/19/23 Patient will perform bed mobility with min assist in order to improve independence and prepare for out of bed mobility. Start: 09/11/23 Expected End: 09/19/23 Therapy Time Individual Co-treatment Time In 0945 Time Out 1006 (co eval with PT) Minutes 21 Lata Desai OT Patient's Occupational Therapy Plan of Care supervision is transferred to a [facility] Therapy Services Occupational Therapist. Goals and/or treatment plan was established in collaboration with patient/family/other representatives. documented in this encounter [facility] 09-19-2023 Note Formatting of this n ote might be different from the original. Transportation arranged through [facility] by cot set for 11:30 am, however, since an ambulance is near by they may arrive at 11 am. Informed RN of this and she will call report. Notified patient's daughter of this as well. Attempted to speak with [facility] to notify them as well. Sent message in [facility]. SW remains available if any other needs or concerns arise. [facility] 09-19-2023 Note Formatting of this n ote might be different from the original. Transportation arranged through [facility] by cot set for 11:30 am, however, since an ambulance is near by they may arrive at 11 am. Informed RN of this and she will call report. Notified patient's daughter of this as well. Attempted to speak with [facility] to notify them as well. Sent message in [facility]. SW remains available if any other needs or concerns arise. [facility] 09-19-2023 Miscellaneous Notes Transportation arranged through [facility] by cot set for 11:30 am, however, since an ambulance is near by they may arrive at 11 am. Informed RN of this and she will call report. Notified patient's daughter of this as well. Attempted to speak with [facility] to notify them as well. Sent message in [facility]. SW remains available if any other needs or concerns arise. Discharge med list transmitted to return back to [facility] via [facility] per T[facility] request. Patient is able to discharge to [facility] today. . Number for report is [phone]. Attending aware. Did update primary care nurse and marriage and family social worker. Did task SURFACE LAY OUT TECHNICIAN to send discharge packet to [facility]. . Per Mckenzie at [facility] patient is able to return to facility tomorrow morning.Will update attending in the am. . Sent updated notes including MAR to return back to [facility] via [facility] per T[facility] request. Await review and response regarding ability to accept. TCC notified. Tasked SURFACE LAY OUT TECHNICIAN to send MAR to [facility]. Received call from Mckenzie at [facility] and they are agreeable to accepting patient back under skilled level of care tomorrow. She wants to verify that his Medicare is his primary payor, before [facility] updates attending of this. Anticipate patient to return to [facility] facility tomorrow. . Did call and update Mckenzie at [facility] that Covid PCR is still positive. She will speak with site administrator and call T[facility] back with update regarding requirements for him to return to facility. . Images from the original note were not included. Care Management Progress Note Covid PCR requested by [facility] was positive yesterday afternoon. Will call and speak with Mckenzie in admissions later this morning to discuss next steps regarding return to their facility. Pulse ox is 94% on room air. Remains on iv decadron and iv fluids. Discharge plan is return to [facility] when cleared by facility. . Discharge Milestones and Delays Expected Date/Time: 09/21/[address] discharge order Complete med reconciliation Case mgmt discharge readiness Clinical Stability Diagnsotic Workup Expected Discharge History Expected Date/Time Set By Reviewed At 09/21/2023 MITCHELL Rhodes 09/17/2023 10:00 AM will need to negative covid tests within 48 hours to return to [facility] due to hx of wandering. out of Covid iso" 09/21/2023 Mayra Lundberg RN 09/17/2023 8:55 AM will need to negative covid tests within 48 hours to return to [facility] due to hx of wandering." 09/21/2023 Mayra Lundberg RN 09/14/2023 9:03 AM iv decadron and remdesivir. will need to negative covid tests within 48 hours to return to [facility] due to hx of wandering." 09/15/2023 Mayra Lundberg RN 09/12/2023 8:44 AM iv decadron and remdesivir 09/13/2023 Kayleigh Stout, 09/11/2023 12:51 PM 09/13/2023 Kayleigh Stout, DO 09/10/2023 8:04 PM 09/12/2023 Bernard Phillips MD 09/10/2023 2:03 PM Length of Stay (Days): 8 GMLOS: 5.1 Spoke with Mckenzie at [facility]. Requesting covid PCR be completed today and one on day 10. If both are negative will be able to return on day 11. If not will have to wait/check again with her site administrator. Must be PCR and not antigens. Did update attending and primary care nurse of this. Did call and spoke with Mckenzie at [facility] to determine if patient is able to return once out of 10 days of isolation period and she is checking with her site administrator and will updated TCC with response... Images from the original note were not included. Care Management Progress Note Remains on iv decadron and cont ivf. Did require iv apresoline x 1 last pm for elevated blood pressure. Blood pressures have been elevated. Remains off of oxygen. Will contact admissions at [facility] to determine if will require 2 negative covid swabs or if will need to wait until day of 11 and patient is not longer in covid isolation for him to return. Will update attending and primary care nurse with this information. Discharge Milestones and Delays Expected Date/Time: 09/21/[address] discharge order Complete med reconciliation Case mgmt discharge readiness Clinical Stability Diagnsotic Workup Expected Discharge History Expected Date/Time Set By Reviewed At 09/21/2023 Mayra Lundberg RN 09/14/2023 9:03 AM iv decadron and remdesivir. will need to negative covid tests within 48 hours to return to [facility] due to hx of wandering." 09/15/2023 Mayra Lundberg RN 09/12/2023 8:44 AM iv decadron and remdesivir 09/13/2023 Kayleigh Stout DO 09/11/2023 12:51 PM 09/13/2023 Kayleigh Stout DO 09/10/2023 8:04 PM 09/12/2023 Bernard Phillips MD 09/10/2023 2:03 PM Length of Stay (Days): 7 GMLOS: 5.1 .. Remains on iv fluid and iv decadron. Will receive final dose of remdesivr tonight. Pulse ox is 95% on room air. Crp is improved this am. Is on pureed diet. Due to fact patient wanders at [facility]. Will need to have two negative rapid covid test within 48 hours of each other prior to returning. Did update attending of this. . 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: Patient Perioperative Nurse Name/Contact Information: KAYLEIGH SCOTT [phone] DAUGHTER Cognition/Language: Confused at baseline Permission given to speak with patient metals sales representative/caregiver as indicated: Yes Confirmation of Payer with patient/family: Yes Payer Name: TNA MEDICARE : Yes Confirmation of Primary Care Physician: Confirmed PCP Name: MARJ PLASENCIA Seen in last 2 years?: Yes Primary Caregiver: Other (Comment) If assistance needed, confirmed caregiver ready, willing and able to care for patient at discharge: Yes Confirmed with: STAFF AT [facility] Living Arrangements Current Residence: ([facility]) Number of Floors 1 Number of Entry Steps: (LEVEL ENTRY) Bed/Bath Levels: Both first floor Facility: [facility] Facility Name: [facility] Plan to Return: Lives with: Other (Comment) (FACILITY) Support Systems: Family members, Comments (Other) (FACILITY) Activities of Daily Living Ambulation: Assistance (WITH FWW) Bathing/Dressing: Assistance Elimination/Continence/Toileting: Assistance Feeding: Independent Who Assists with Activities of Daily Living: staff at [facility] Instrumental Activities of Daily Living Prescription Coverage: Yes Pharmacy Used: [facility] Medication Management: Medication dispenser Who assists with medication securing and setup?: staff at [facility] Transportation/Shopping: Assistance Provider Transportation/Shopping Assistance Provider Name: payor provided transport Transportation Mode: Payer provided transport service Needs Assistance with Transportation at Discharge: Yes Meal Preparation: Assistance Provider Meal Prep Assistance Provider Name: [facility] Laundry/Cleaning: Assistance Provider Laundry/Cleaning Assistance Provider Name: [facility] Finances/Bill Paying: Assistance Provider Finances/Bill Payer Assistance Provider Name: gilmar Communication: Emergency Call System Types of Care Services/Equipment Utilized Care Services: Dialysis Type: NA Durable Medical Equipment: Walker, Glucometer Patient's Goal/Discharge Plan Patient expects to be discharged to: return to [facility] Discharge Planning Actions: Continue to follow Patient's Choice Rights and [employer] and Collaborative Relationships Disclosed as Indicated for Post-Acute Care: Interdisciplinary Team Engagement: PT/OT, Palliative Care Social Work Referral for: Additional Information: Inpatient status from [facility] with covid. Receiving iv decadron and remdesivr. Did call and speak with daughter Kayleigh to complete case management initial assessment. Patient has been at facility since January. Was active with [facility] hospice services until last week, but had skin cancer that needed removed and due to billing, hospice services were revoked last week and plan to remain revoked until skin cancer is removed. Tentative date of removal is 09/25. Kayleigh would like patient to return to [facility] upon discharge. Spoke with Mckenzie [phone] venue coordinator at [facility], due to patient wandering at their facility and not staying in his room. They are unable to take him back until he has 2 negative rapid covid test within 48 hours of each other or until his appt on 09/25. Did call and speak with [facility] real estate portfolio manager and will honor [facility] infection control policies. Patient's initial covid diagnosis was 09/10. Will continue to work with [facility] and attending for return back to their facility. Did provide Mckenzie with [facility]'s direct contact number.. Mayra Lundberg RN Admitted from [facility] home with covid. Admitted to medical. Iv remdesivir and decadron, supplemental oxygen. Per documentation is 93% on ra. 10/23 bc positive. Anticipate contaminate. Palliative care following. Tentative discharge plan is to return to [facility] when medically stable. Will need to determine if will be returning under skilled services or under hospice care. Will contact daughter to complete case management initial assessment and also speak with admissions at [facility] and continue to follow with palliative care.. Called and left message for daughter to assist with completing case management initial assessment. . Referral placed to return back to [facility] via [facility] per [facility] request. Await review and response regarding ability to accept. T[facility] notified. documented in this encounter [facility] 09-19-2023 Note Formatting of this n ote might be different from the original. Discharge med list transmitted to return back to [facility] via [facility] per [facility] request. [facility] 09-19-2023 Note Formatting of this n ote might be different from the original. Discharge med list transmitted to return back to [facility] via [facility] per [facility] request. [facility] 09-19-2023 Note Formatting of this n ote might be different from the original. Patient is able to discharge to [facility] today. . Number for report is [phone]. Attending aware. Did update primary care nurse and marriage and family social worker. Did task SURFACE LAY OUT TECHNICIAN to send discharge packet to [facility]. . [facility] 09-19-2023 Note Formatting of this n ote might be different from the original. Patient is able to discharge to [facility] today. . Number for report is [phone]. Attending aware. Did update primary care nurse and marriage and family social worker. Did task SURFACE LAY OUT TECHNICIAN to send discharge packet to [facility]. . [facility] 09-18-2023 Note Formatting of this n ote might be different from the original. Per Mckenzie [facility] patient is able to return to facility tomorrow morning.Will update attending in the am. . [facility] 09-18-2023 Note Formatting of this n ote might be different from the original. Per Mckenzie at [facility] patient is able to return to facility tomorrow morning.Will update attending in the am. . [facility] 09-18-2023 Note Formatting of this n ote might be different from the original. Sent updated notes including MAR to return back to [facility] via [facility] per [facility] request. Await review and response regarding ability to accept. TCC notified. [facility] 09-18-2023 Note Formatting of this n ote might be different from the original. Sent updated notes including MAR to return back to [facility] via [facility] per [facility] request. Await review and response regarding ability to accept. TCC notified. [facility] 09-18-2023 Note Formatting of this n ote might be different from the original. Tasked SURFACE LAY OUT TECHNICIAN to send MAR to [facility]. Received call from Mckenzie at [facility] and they are agreeable to accepting patient back under skilled level of care tomorrow. She wants to verify that his Medicare is his primary payor, before [facility] updates attending of this. [facility] . [facility] 09-18-2023 Note Formatting of this n ote might be different from the original. Tasked SURFACE LAY OUT TECHNICIAN to send MAR to [facility]. Received call from Mckenzie at [facility] and they are agreeable to accepting patient back under skilled level of care tomorrow. She wants to verify that his Medicare is his primary payor, before [facility] updates attending of this. An[facility]ip[facility]. . [facility] 09-18-2023 Note Formatting of this n ote might be different from the original. Did call and update Mckenzie at [facility] that Covid PCR is still positive. She will speak with site administrator and call TCC back with update regarding requirements for him to return to facility. . [facility] 09-18-2023 Note Formatting of this n ote might be different from the original. Did call and update Mckenzie at [facility] that Covid PCR is still positive. She will speak with site administrator and call [facility] back with update regarding requirements for him to return to facility. . [facility] 09-18-2023 Note Formatting of this n ote is different from the original. Images from the original note were not included. Care Management Progress Note Covid PCR requested by [facility] was positive yesterday afternoon. Will call and speak with Mckenzie in admissions later this morning to discuss next steps regarding return to their facility. Pulse ox is 94% on room air. Remains on iv decadron and iv fluids. Discharge plan is return to [facility] when cleared by facility. . Discharge Milestones and Delays Expected Date/Time: 09/21/[address] discharge order Complete med reconciliation Case mgmt discharge readiness Clinical Stability Diagnsotic Workup Expected Discharge History Expected Date/Time Set By Reviewed At 09/21/2023 MITCHELL Rhodes 09/17/2023 10:00 AM will need to negative covid tests within 48 hours to return to [facility] due to hx of wandering. out of Covid iso" 09/21/2023 Mayra Lundberg RN 09/17/2023 8:55 AM will need to negative covid tests within 48 hours to return to [facility] due to hx of wandering." 09/21/2023 Mayra Lundberg RN 09/14/2023 9:03 AM iv decadron and remdesivir. will need to negative covid tests within 48 [facility]x of wandering." 09/15/2023 Mayra Lundberg RN 09/12/2023 8:44 AM iv decadron and remdesivir 09/13/2023 Kayleigh Stout, DO 09/11/2023 12:51 PM 09/13/2023 Kayleigh Stout, DO 09/10/2023 8:04 PM 09/12/2023 Bernard Phillips MD 09/10/2023 2:03 PM Length of Stay (Days): 8 GMLOS: 5.1 [facility] 09-18-2023 Note Formatting of this n ote is different from the original. Images from the original note were not included. Care Management Progress Note Covid PCR requested by [facility] was positive yesterday afternoon. Will call and speak with Mckenzie in admissions later this morning to discuss next steps regarding return to their facility. Pulse ox is 94% on room air. Remains on iv decadron and iv fluids. Discharge plan is return to [facility] when cleared by facility. . Discharge Milestones and Delays Expected Date/Time: 09/21/[address] discharge order Complete med reconciliation Case mgmt discharge readiness Clinical Stability Diagnsotic Workup Expected Discharge History Expected Date/Time Set By Reviewed At 09/21/2023 MITCHELL Rhodes 09/17/2023 10:00 AM will need to negative covid tests within 48 hours to return to [facility] due to hx of wandering. out of Covid iso" 09/21/2023 Mayra Lundberg RN 09/17/2023 8:55 AM will need to negative covid tests within 48 hours to return to [facility] due to hx of wandering." 09/21/2023 Mayra Lundberg RN 09/14/2023 9:03 AM iv decadron and remdesivir. will need to negative covid tests within 48 hours to return to [facility] due to hx of wandering." 09/15/2023 Mayra Lundberg RN 09/12/2023 8:44 AM iv decadron and remdesivir 09/13/2023 Kayleigh Stout, DO 09/11/2023 12:51 PM 09/13/2023 Kayleigh Stout, DO 09/10/2023 8:04 PM 09/12/2023 Bernard Phillips MD 09/10/2023 2:03 PM Length of Stay (Days): 8 GMLOS: 5.1 [facility] 09-17-2023 Note Formatting of this n ote might be different from the original. Spoke with Mckenzie at [facility]. Requesting covid PCR be completed today and one on day 10. If both are negative will be able to return on day 11. If not will have to wait/check again with her site administrator. Must be PCR and not antigens. Did update attending and primary care nurse of this. [facility] 09-17-2023 Note Formatting of this n ote might be different from the original. Spoke with Mckenzie at [facility]. Requesting covid PCR be completed today and one on day 10. If both are negative will be able to return on day 11. If not will have to wait/check again with her site administrator. Must be PCR and not antigens. Did update attending and primary care nurse of this. [email or web address] 09-17-2023 Note Formatting of this n ote might be different from the original. Did call and spoke with Mckenzie at [facility] to determine if patient is able to return once out of 10 days of isolation period and she is checking with her site administrator and will updated TCC with response... [email or web address] 09-17-2023 Note Formatting of this n ote might be different from the original. Did call and spoke with Mckenzie at [facility] to determine if patient is able to return once out of 10 days of isolation period and she is checking with her site administrator and will updated TCC with response... [facility] 09-17-2023 Note Formatting of this n ote is different from the original. Images from the original note were not included. Care Management Progress Note Remains on iv decadron and cont ivf. Did require iv apresoline x 1 last pm for elevated blood pressure. Blood pressures have been elevated. Remains off of oxygen. Will contact admissions at [facility] to determine if will require 2 negative covid swabs or if will need to wait until day of 11 and patient is not longer in covid isolation for him to return. Will update attending and primary care nurse with this information. Discharge Milestones and Delays Expected Date/Time: 09/21/[address] discharge order Complete med reconciliation Case mgmt discharge readiness Clinical Stability Diagnsotic Workup Expected Discharge History Expected Date/Time Set By Reviewed At 09/21/2023 Mayra Lundberg RN 09/14/2023 9:03 AM iv decadron and remdesivir. will need to negative covid tests within 48 hours to return to [facility] due to hx of wandering." 09/15/2023 Mayra Lundberg RN 09/12/2023 8:44 AM iv decadron and remdesivir 09/13/2023 Kayleigh Stout DO 09/11/2023 12:51 PM 09/13/2023 Kayleigh Stout DO 09/10/2023 8:04 PM 09/12/2023 Bernard Phillips MD 09/10/2023 2:03 PM Length of Stay (Days): 7 GMLOS: 5.1 .. [facility] 09-17-2023 Note Formatting of this n ote is different from the original. Images from the original note were not included. Care Management Progress Note Remains on iv decadron and cont ivf. Did require iv apresoline x 1 last pm for elevated blood pressure. Blood pressures have been elevated. Remains off of oxygen. Will contact admissions at [facility] to determine if will require 2 negative covid swabs or if will need to wait until day of 11 and patient is not longer in covid isolation for him to return. Will update attending and primary care nurse with this information. Discharge Milestones and Delays Expected Date/Time: 09/21/[address] discharge order Complete med reconciliation Case mgmt discharge readiness Clinical Stability Diagnsotic Workup Expected Discharge History Expected Date/Time Set By Reviewed At 09/21/2023 Mayra Lundberg RN 09/14/2023 9:03 AM iv decadron and remdesivir. will need to negative covid tests within 48 hours to return to [facility] due to hx of wandering." 09/15/2023 Mayra Lundberg RN 09/12/2023 8:44 AM iv decadron and remdesivir 09/13/2023 Kayleigh Stout, DO 09/11/2023 12:51 PM 09/13/2023 Kayleigh Stout, DO 09/10/2023 8:04 PM 09/12/2023 Bernard Phillips MD 09/10/2023 2:03 PM Length of Stay (Days): 7 GMLOS: 5.1 .. [facility] 09-14-2023 Note Formatting of this n ote might be different from the original. Remains on iv fluid and iv decadron. Will receive final dose of remdesivr tonight. Pulse ox is 95% on room air. Crp is improved this am. Is on pureed diet. Due to fact patient wanders at [facility] home. Will need to have two negative rapid covid test within 48 hours of each other prior to returning. Did update attending of this. . [facility] 09-14-2023 Note Formatting of this n ote might be different from the original. Remains on iv fluid and iv decadron. Will receive final dose of remdesivr tonight. Pulse ox is 95% on room air. Crp is improved this am. Is on pureed diet. Due to fact patient wanders at [facility]. Will need to have two negative rapid covid test within 48 hours of each other prior to returning. Did update attending of this. . [facility] 09-12-2023 Hospital Discharg e instructions Yue Ludwig RN - 09/12/2023 12:13 PM EST Continuity of Care Form Patient Name: Tita Keith : 1935 Admit date: 09/10/2023 Discharge date: [id number] Code Status Order: DNR-CCA Advance Directives: N Admitting Physician: Kayleigh Stout DO PCP: Marj Plasencia Discharging Nurse: Discharging Hospital Unit/Room#: B4-453/B4-453 A Discharging Unit Emergency Contact: Extended Emergency Contact Information Primary Emergency Contact: JackelineKayleigh washburn Mobile Relation: Child Secondary Emergency Contact: Mike Keith Mobile Relation: Child Past Surgical History: Past Surgical History: Procedure Laterality Date BACK SURGERY Immunization History: There is no immunization history for the selected administration types on file for this patient. Active Problems: Medical Problems Problem List * (Principal) COVID-19 New onset type 2 diabetes mellitus (CMS/HCC) (HCC) Hyperosmolar hyperglycemic state (HHS) (HCC) Hyperglycemia Severe malnutrition (CMS/HCC) (HCC) (Chronic) Isolation/Infection: Droplet Plus COVID-19 (confirmed) Nurse Assessment: Last Vital Signs: BP (!) 157/96 (BP Location: Right arm, Patient Position: Lying) Pulse 72 Temp 36.5 C (97.7 F) (Temporal) Resp 16 SpO2 95% Last documented pain score (0-10 scale): Last Weight: Wt Readings from Last 1 Encounters: 01/20/23 56.1 kg (123 lb 11.2 oz) Mental Status: Alert and oriented to self IV Access: RON IV Access: None Nursing Mobility/ADLs: Walking Total assistance Transfer Total assistance Bathing Total assistance Dressing Total assistance Toileting Total assistance Feeding Total assistance Garden Implement Mechanic Total assistance Med Delivery no Wound Care Documentation and Therapy: Wound/Incision 09/11/23 Skin Tear Face Upper (Active) Number of days: 0 Elimination: Continence: Bowel: no Bladder: no Urinary Catheter: None Colostomy/Ileostomy/Ileal Conduit: None Date of Last BM: 09/19/2023 Intake/Output Summary (Last 24 hours) at 09/12/2023 1212 Last data filed at 09/11/2023 2320 Gross per 24 hour Intake 1993.75 ml Output -- Net 1993.75 ml I/O last 3 completed shifts: In: 2243.8 [I.V.:1993.8; IV Piggyback:250] Out: 200 [Urine:200] Safety Concerns: at risk for falls and aspiration risk Impairments/Disabilities: vision and hearing Nutrition Therapy: Current Nutrition Therapy: Oral diet: dysphagia 1 pureed Routes of Feeding: oral Liquids: thin liquids Daily Fluid Restriction: no Last Modified Barium Swallow with Video (Video Swallowing Test): {done not done:84087} Treatments at the Time of Hospital Discharge: Respiratory Treatments: Oxygen Therapy: is not on home oxygen therapy. Ventilator: No ventilator support Rehab Therapies: {GEN THERAPY DISCIPLINE [facility]:5884050} Weight Bearing Status/Restrictions: {POD WEIGHT BEARIN} Other Medical Equipment (for information only, NOT a DME order): {Assistive Devices DME:35954} Other Treatments: Patient's personal belongings (please select all that are sent with patient): {RON Patient Belongings:81923} RN SIGNATURE: {E-signature:78562} CASE MANAGEMENT/SOCIAL WORK SECTION Inpatient Status Date: Readmission Risk Assessment Score: @READMISSIONRISKDETAILS@ Discharging to Facility/ Agency Name: [facility] Address:[address] [place] [address] Dialysis Facility (if applicable) Name: Address: Dialysis Schedule: Phone: Fax: [employer] Head/Sap Bobj Developer signature: ICIAN SECTION Prognosis: fair Condition at Discharge: stable Rehab Potential (if transferring to Rehab): fair Recommended Labs or Other Treatments After Discharge: none Physician Certification: I certify the above information and transfer of Tita Keith is necessary for the continuing treatment of the diagnosis listed and that he requires retirement facility for greater than 30 days. Update Admission H&P: No change in H&P PHYSICIAN SIGNATURE: documented in this encounter [facility] 09-12-2023 Note Formatting of this n ote might be different from the original. 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: Patient Perioperative Nurse Name/Contact Information: KAYLEIGH SEBASTIENTREVON [phone] DAUGHTER Cognition/Language: Confused at baseline Permission given to speak with patient metals sales representative/caregiver as indicated: Yes Confirmation of Payer with patient/family: Yes Payer Name: [employer] MEDICARE : Yes Confirmation of Primary Care Physician: Confirmed PCP Name: MARJ PLASENCIA Seen in last 2 years?: Yes Primary Caregiver: Other (Comment) If assistance needed, confirmed caregiver ready, willing and able to care for patient at discharge: Yes Confirmed with: STAFF AT [facility] Living Arrangements Current Residence: ([facility]) Number of Floors 1 Number of Entry Steps: (LEVEL ENTRY) Bed/Bath Levels: Both first floor Facility: [facility] Facility Name: [facility] Plan to Return: Lives with: Other (Comment) (FACILITY) Support Systems: Family members, Comments (Other) (FACILITY) Activities of Daily Living Ambulation: Assistance (WITH FWW) Bathing/Dressing: Assistance Elimination/Continence/Toileting: Assistance Feeding: Independent Who Assists with Activities of Daily Living: staff at [facility] Instrumental Activities of Daily Living Prescription Coverage: Yes Pharmacy Used: [facility] Medication Management: Medication dispenser Who assists with medication securing and setup?: staff at [facility] Transportation/Shopping: Assistance Provider Transportation/Shopping Assistance Provider Name: payor provided transport Transportation Mode: Payer provided transport service Needs Assistance with Transportation at Discharge: Yes Meal Preparation: Assistance Provider Meal Prep Assistance Provider Name: [facility] Laundry/Cleaning: Assistance Provider Laundry/Cleaning Assistance Provider Name: [facility] Finances/Bill Paying: Assistance Provider Finances/Bill Payer Assistance Provider Name: daughter Communication: Emergency Call System Types of Care Services/Equipment Utilized Care Services: Dialysis Type: NA Durable Medical Equipment: Walker, Glucometer Patient's Goal/Discharge Plan Patient expects to be discharged to: return to [facility] Discharge Planning Actions: Continue to follow Patient's Choice Rights and [employer] and Collaborative Relationships Disclosed as Indicated for Post-Acute Care: Interdisciplinary Team Engagement: PT/OT, Palliative Care Social Work Referral for: Additional Information: Inpatient status from [facility] with covid. Receiving iv decadron and remdesivr. Did call and speak with gilmar Martell to complete case management initial assessment. Patient has been at facility since January. Was active with [facility] hospice services until last week, but had skin cancer that needed removed and due to billing, hospice services were revoked last week and plan to remain revoked until skin cancer is removed. Tentative date of removal is 09/25. Kayleigh would like patient to return to [facility] upon discharge. Spoke with Mckenzie [phone] venue coordinator at [facility], due to patient wandering at their facility and not staying in his room. They are unable to take him back until he has 2 negative rapid covid test within 48 hours of each other or until his appt on 09/25. Did call and speak with [facility] real estate portfolio manager and will honor [facility] infection control policies. Patient's initial covid diagnosis was 09/10. Will continue to work with [facility] and attending for return back to their facility. Danica provide Mckenzie with [facility]'s direct contact number.. Mayra Lundberg RN [facility] 09-12-2023 Note Formatting of this n ote might be different from the original. 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: Patient Perioperative Nurse Name/Contact Information: KAYLEIGH SCOTT [phone] DAUGHTER Cognition/Language: Confused at baseline Permission given to speak with patient metals sales representative/caregiver as indicated: Yes Confirmation of Payer with patient/family: Yes Payer Name: [employer] MEDICARE : Yes Confirmation of Primary Care Physician: Confirmed PCP Name: MARJ PLASENCIA Seen in last 2 years?: Yes Primary Caregiver: Other (Comment) If assistance needed, confirmed caregiver ready, willing and able to care for patient at discharge: Yes Confirmed with: STAFF AT [facility] Living Arrangements Current Residence: ([facility]) Number of Floors 1 Number of Entry Steps: (LEVEL ENTRY) Bed/Bath Levels: Both first floor Facility: [facility] Facility Name: [facility] Plan to Return: Lives with: Other (Comment) (FACILITY) Support Systems: Family members, Comments (Other) (FACILITY) Activities of Daily Living Ambulation: Assistance (WITH FWW) Bathing/Dressing: Assistance Elimination/Continence/Toileting: Assistance Feeding: Independent Who Assists with Activities of Daily Living: staff at [facility] Instrumental Activities of Daily Living Prescription Coverage: Yes Pharmacy Used: [facility] Medication Management: Medication dispenser Who assists with medication securing and setup?: staff at [facility] Transportation/Shopping: Assistance Provider Transportation/Shopping Assistance Provider Name: payor provided transport Transportation Mode: Payer provided transport service Needs Assistance with Transportation at Discharge: Yes Meal Preparation: Assistance Provider Meal Prep Assistance Provider Name: [facility] Laundry/Cleaning: Assistance Provider Laundry/Cleaning Assistance Provider Name: [facility] Finances/Bill Paying: Assistance Provider Finances/Bill Payer Assistance Provider Name: daughter Communication: Emergency Call System Types of Care Services/Equipment Utilized Care Services: Dialysis Type: NA Durable Medical Equipment: Walker, Glucometer Patient's Goal/Discharge Plan Patient expects to be discharged to: return to [facility] Discharge Planning Actions: Continue to follow Patient's Choice Rights and [employer] and Collaborative Relationships Disclosed as Indicated for Post-Acute Care: Interdisciplinary Team Engagement: PT/OT, Palliative Care Social Work Referral for: Additional Information: Inpatient status from [facility] with covid. Receiving iv decadron and remdesivr. Did call and speak with daughter Kayleigh to complete case management initial assessment. Patient has been at facility since January. Was active with [facility] hospice services until last week, but had skin cancer that needed removed and due to billing, hospice services were revoked last week and plan to remain revoked until skin cancer is removed. Tentative date of removal is 09/25. Kayleigh would like patient to return to [facility] upon discharge. Spoke with Mckenzie [phone] venue coordinator at [facility], due to patient wandering at their facility and not staying in his room. They are unable to take him back until he has 2 negative rapid covid test within 48 hours of each other or until his appt on 09/25. Did call and speak with [facility] real estate portfolio manager and will honor [facility] infection control policies. Patient's initial covid diagnosis was 09/10. Will continue to work with [facility] and attending for return back to their facility. Did provide Mckenzie with [facility]'s direct contact number.. Mayra Lundberg RN [facility] 09-12-2023 Note Formatting of this n ote might be different from the original. Admitted from [facility] with covid. Admitted to medical. Iv remdesivir and decadron, supplemental oxygen. Per documentation is 93% on ra. 10/23 bc positive. Anticipate contaminate. Palliative care following. Tentative discharge plan is to return to [facility] when medically stable. Will need to determine if will be returning under skilled services or under hospice care. Will contact daughter to complete case management initial assessment and also speak with admissions at [facility] and continue to follow with palliative care.. [facility] 09-12-2023 Note Formatting of this n ote might be different from the original. Admitted from [facility] home with covid. Admitted to medical. Iv remdesivir and decadron, supplemental oxygen. Per documentation is 93% on ra. 10/23 bc positive. Anticipate contaminate. Palliative care following. Tentative discharge plan is to return to [facility] when medically stable. Will need to determine if will be returning under skilled services or under hospice care. Will contact daughter to complete case management initial assessment and also speak with admissions at [facility] and continue to follow with palliative care.. [facility] 09-11-2023 Note Formatting of this n ote might be different from the original. Called and left message for daughter to assist with completing case management initial assessment. . [facility] 09-11-2023 Note Formatting of this n ote might be different from the original. Called and left message for daughter to assist with completing case management initial assessment. . [facility] 09-11-2023 Note Formatting of this n ote might be different from the original. Referral placed to return back to [facility] via [facility] per [facility] request. Await review and response regarding ability to accept. [facility] notified. [facility] 09-11-2023 Note Formatting of this n ote might be different from the original. Referral placed to return back to [facility] via [facility] per [facility] request. Await review and response regarding ability to accept. [facility] notified. [facility] 09-11-2023 Consult note Associated Order (s): IP CONSULT TO INFECTIOUS DISEASES Images from the original note were not included. [facility] - Infectious Diseases Attending Consult Note Reason for Consult: Sepsis, COVID-19 with hypoxia History of Present Illness: 87 y/o male presented on 09/10/23 via EMS from a facility with fever, SOB, and acute mental status change; on presentation, he was febrile (T 102.4 F), tachycardic (P 118), tachypneic (R 24), Pox 93%- which was decreased to 89%; labs showed leukopenia (3.5k), anaemia (Hg 12.3), thrombocytopenia (99k), elevated creatinine (1.63), and SARS-CoV2 pcr was positive; he was started on O2 through positive pressure mask, Pox improved to 96%, O2 was changed to 4L NC, remdesivir and dexamethasone were given. He was seen, found him alert, laying on bed, answered few questions, took of O2 NC, Pox 92%, did not cough during my exam, were not using accessory muscles, appeared little confused and ill. He has h/o dementia, DM, and skin cancer. He was examined; notes, labs, imaging were reviewed and treatment plan was discussed. Past Medical History: Past Medical History: Diagnosis Date Dementia (HCC) Diabetes mellitus (HCC) Hyperlipidemia Hypertension Past Surgical History: Past Surgical History: Procedure Laterality Date BACK SURGERY Current Medications: Current Facility-Administered Medications Medication Dose Route Frequency Provider Last Rate Last Admin acetaminophen (Tylenol) tablet 650 mg 650 mg Oral q6h PRN Kayleigh M Esterle, DO Or acetaminophen (Tylenol) suppository 650 mg 650 mg Rectal q6h PRN Kayleigh M Esterle, DO dexAMETHasone (PF) (Decadron) injection 6 mg 6 mg IntraVENous q24h Kayleigh M Esterle, DO dextrose 5 % infusion 100 mL/hr IntraVENous PRN Kayleigh M Esterle, DO dextrose 50 % solution 12.5 g 12.5 g IntraVENous PRN Kayleigh M Esterle, DO docusate sodium (Colace) capsule 100 mg 100 mg Oral BID Kayleigh M Esterle, DO glucagon (human recombinant) injection 1 mg 1 mg IntraMUSCular PRN Kayleigh M Esterle, DO glucose oral gel 15 g 15 g Oral PRN Kayleigh M Esterle, DO hydrALAZINE (Apresoline) injection 10 mg 10 mg IntraVENous q4h PRN Kayleigh M Esterle, DO Influenza Vac A&B SA Adj quadrivalent (Fluad) vaccine 0.5 mL 0.5 mL IntraMUSCular Prior to discharge Kayleigh M Esterle, DO insulin glargine (Lantus) injection 5 Units 5 Units SubCUTAneous Nightly Radha L Hoiles, SUBSTATION MECHANIC - FULLING MACHINE OPERATOR LORazepam (Ativan) tablet 0.25 mg 0.25 mg Oral q4h PRN Radha L Hoiles, SUBSTATION MECHANIC - FULLING MACHINE OPERATOR Melatonin disintegrating tablet 5 mg 5 mg Oral Nightly PRN Kayleigh M Esterle, DO mirtazapine (Remeron) tablet 15 mg 15 mg Oral Nightly Kayleigh M Esterle, DO morphine 10 MG/0.5ML concentrated solution 5 mg 5 mg Oral q2h PRN Radha L Hoiles, SUBSTATION MECHANIC - FULLING MACHINE OPERATOR naloxone (Narcan) injection 0.4 mg 0.4 mg IntraVENous PRN Radha L Hoiles, SUBSTATION MECHANIC - FULLING MACHINE OPERATOR ondansetron ODT (Zofran-ODT) disintegrating tablet 4 mg 4 mg Oral q8h PRN Kayleigh M Esterle, DO Or ondansetron (Zofran) injection 4 mg 4 mg IntraVENous q6h PRN Kayleigh M Esterle, DO polyethylene glycol (PEG) 3350 (Miralax) packet 17 g 17 g Oral Daily PRN Kayleigh M Esterle, DO remdesivir (Veklury) 100 mg in sodium chloride 0.9 % 250 mL IVPB 100 mg IntraVENous q24h Kayleigh M Esterle, DO sodium chloride 0.9 % infusion 5-250 mL/hr IntraVENous PRN Kayleigh M Esterle, DO sodium chloride 0.9 % infusion 75 mL/hr IntraVENous Continuous Kayleigh M Esterle, DO 75 mL/hr at 09/11/23 1011 75 mL/hr at 09/11/23 1011 sodium chloride 0.9% (NS) flush 10 mL 10 mL IntraVENous 2 times per day Kayleigh M Esterle, DO 10 mL at 09/11/23 1006 sodium chloride 0.9% (NS) flush 10 mL 10 mL IntraVENous PRN Kayleigh M Esterle, DO tamsulosin (Flomax) 24 hr capsule 0.8 mg 0.8 mg Oral Nightly Kayleigh M Esterle, DO Current Outpatient Medications Medication Sig Dispense Refill cholecalciferol (Vitamin D-3) 50 MCG (1999 UT) capsule Take 2,000 Units by mouth. docusate sodium (Colace) 100 MG capsule Take 100 mg by mouth 2 times daily. insulin glargine (Lantus) 100 UNIT/ML pen Inject 14 Units under the skin Nightly. lisinopril 20 MG tablet Take 20 mg by mouth daily. mirtazapine (Remeron) 15 MG tablet Take 15 mg by mouth Nightly. QUEtiapine (SEROquel) 25 MG tablet Take 0.5 tablets (12.5 mg) by mouth 2 times daily. 30 tablet 0 tamsulosin (Flomax) 0.4 MG 24 hr capsule Take 0.8 mg by mouth Nightly. Allergies: No Known Allergies Social History: Social History Socioeconomic History Marital status: Spouse name: Not on file Number of children: Not on file Years of education: Not on file Highest education level: Not on file Occupational History Not on file Tobacco Use Smoking status: Never Smokeless tobacco: Never Substance and Sexual Activity Alcohol use: Not Currently Drug use: Never Sexual activity: Not on file Other Topics Concern Not on file Social History Narrative Not on file Social Determinants of Health Financial Resource Strain: Not on file Food Insecurity: Not on file Transportation Needs: No Transportation Needs (01/18/2023) PRAPARE - Transportation Lack of Transportation (Medical): No Lack of Transportation (Non-Medical): No Physical Activity: Not on file Stress: Not on file Social Connections: Not on file Intimate Partner Violence: Not At Risk (01/18/2023) Humiliation, Afraid, Rape, and Kick questionnaire Fear of Current or Ex-Partner: No Emotionally Abused: No Physically Abused: No Sexually Abused: No Housing Stability: Low Risk (01/18/2023) Housing Stability Vital Sign Unable to Pay for Housing in the Last Year: No Number of Places Lived in the Last Year: 2 Unstable Housing in the Last Year: No Family History: No family history on file. Review of Systems: Review of Systems Constitutional: Positive for fever. HENT: Negative for ear pain and sinus pain. Eyes: Positive for redness. Respiratory: Positive for shortness of breath. Cardiovascular: Negative for chest pain. Gastrointestinal: Negative for abdominal pain. Endocrine: Negative for polyphagia. Genitourinary: Positive for urgency. Musculoskeletal: Negative for arthralgias. Skin: Negative for rash. Neurological: Negative for headaches. Psychiatric/Behavioral: Positive for confusion. Vitals: Patient Vitals for the past 24 hrs: BP Temp Temp src Pulse Resp SpO2 09/11/23 1158 132/83 -- -- 78 16 91 % 09/11/23 1156 -- 36.2 C (97.2 F) Oral -- -- -- 09/11/23 0900 130/76 -- -- 79 19 97 % 09/11/23 0818 (!) 147/84 (!) 38.4 C (101.1 F) Temporal 77 22 97 % 09/11/23 0407 (!) 154/86 37.8 C (100 F) Temporal 79 20 92 % 09/10/23 2240 -- 36.4 C (97.5 F) Oral -- -- -- 09/10/23 2232 (!) 166/73 -- -- 72 13 97 % 09/10/23 2056 (!) 150/78 -- -- 82 16 100 % 09/10/23 1902 (!) 161/89 -- -- 75 16 94 % 09/10/23 1732 (!) 150/87 -- -- 79 18 93 % 09/10/23 1601 (!) 142/77 -- -- 80 20 94 % 09/10/23 1432 136/68 -- -- 88 20 (!) 89 % 09/10/23 1317 -- 37.5 C (99.5 F) Oral -- -- -- 09/10/23 1239 139/71 -- -- 90 20 96 % 09/10/23 1230 -- (!) 39 C (102.2 F) Rectal -- -- -- Physical Exam: Physical Exam Vitals and nursing notes were reviewed. Constitutional: General: He is in acute distress. Appearance: He is ill-appearing. HENT: Mouth/Throat: Pharynx: Oropharynx is clear. Eyes: Extraocular Movements: Extraocular movements intact. Pupils: Pupils are equal, round, and reactive to light. Cardiovascular: Rate and Rhythm: Regular rhythm. Tachycardia present. Pulmonary: Effort: Pulmonary effort is normal. No accessory muscle usage. Breath sounds: Decreased breath sounds and rhonchi present. Chest: Chest wall: No tenderness. Musculoskeletal: General: Normal range of motion. Cervical back: Normal range of motion. Right lower leg: No edema. Left lower leg: No edema. Skin: General: Skin is warm. Capillary Refill: Capillary refill takes 2 to 3 seconds. Neurological: Mental Status: He is disoriented. Labs: Recent Labs 09/10/23 1219 09/11/23 0635 NA 134* 138 K 4.2 4.6 CL 102 106 CO2 23 23 BUN 50* 42* CREATININE 1.63* 1.27* GLUCOSE 289* 232* CALCIUM 8.4 8.8 PROT -- 7.3 BILITOT -- 0.5 ALKPHOS -- 77 AST -- 41 ALT -- 70* Recent Labs 09/10/23 1219 09/11/23 1031 WBC 3.5* 6.5 HGB 12.3* 12.2* HCT 36.7* 36.9* PLT 99* 97* LYMPHOPCT 13.3* 10.8* MONOPCT 3.5 4.0 BASOPCT 0.2 0.2 NEUTROABS 2.9 5.5 CRP 207.3 221.0 LDH 182 Ferritin 238 Micro: No results for input(s): "COVID19" in the last 72 hours. 09/11/2023 1013 09/11/2023 1019 Blood culture Site #1 - Suspected Infection [[id number]] Blood, Venous In process Component Value No component results 09/11/2023 1013 09/11/2023 1019 Blood culture Site #2 - Suspected Infection [[id number]] Blood, Venous In process Component Value No component results 09/11/2023 0635 09/11/2023 1302 Respiratory culture and Stain [[id number]] (Abnormal) Sputum Preliminary result Component Value Respiratory culture Culture in progress P Gram Stain Result Many Polymorphonuclear leukocytes per low power field Abnormal P Few Epithelial cells per low power field Abnormal P Many Gram positive cocci Abnormal P Few Gram negative bacilli Abnormal P Few Gram positive bacilli Abnormal P Rare Gram negative diplococci Abnormal P 09/10/2023 1219 09/10/2023 1318 SARS-CoV-2, Flu A/B, and RSV Combo [[id number]] (Abnormal) Swab from Nasopharynx Final result Component Value SARS-CoV-2 Detected Abnormal Respiratory Syncytial Virus Not Detected Influenza A Not Detected Influenza B Not Detected Lines: PIV site ok Radiography/Echo/Other: XR chest 1 view [[id number]] Collected: 09/10/23 1228 Order Status: Completed Updated: 09/10/23 1230 Narrative: [facility] 1935 [id number] Exam Date/Time: 09/10/2023 12:21 Procedure: XR CHEST 1 VIEW Ordering Provider: PHILLIPS JAY Reason For Exam: hypoxia PORTABLE CHEST: INDICATION: Hypoxia COMPARISON: 01/17/2023 Obtained at 1203 hours. A single portable AP radiograph of the chest was obtained. The heart is normal in size. The mediastinal silhouette is normal. The lungs are clear. There are no effusions or infiltrates. There is no pleural thickening. The osseous structures are unremarkable. Impression: No acute process. Report Dictated on Electronically Signed By: Tal Patterson DO Electronically Signed Date/Time: 09/10/2023 12:29 PM EST Antimicrobials,Start/End Dates: Remdesivir 09/10- Impression: Sepsis (fever, tachycardia, tachypnea, leukopenia). COVID-19 infection. Acute hypoxic respiratory failure. Dementia. Skin cancer. ALFRED. Plan: Pt sick due to sepsis and hypoxia due to C-19 infection. He remained febrile and hypoxic-off O2 (he has been removing his NC). He has elevated CRP. CXR unremarkable. Continue remdesivir and dexamethasone. Use of O2 emphasized. His pancytopenia probably due to viral disease. LA borderline. Follow cultures for further recs. Will follow. High level complexity medical decision making. Thank you. Total time 75 minutes on this day of encounter includes counseling, coordinating plan of care, record and documentation review before and after visit including documentation and time not explicitly included on EMR time stamp for accounting for open encounter. [facility] 09-11-2023 Consult note Associated Order (s): IP CONSULT TO INFECTIOUS DISEASES Images from the original note were not included. [facility] - Infectious Diseases Attending Consult Note Reason for Consult: Sepsis, COVID-19 with hypoxia History of Present Illness: 87 y/o male presented on 09/10/23 via EMS from a facility with fever, SOB, and acute mental status change; on presentation, he was febrile (T 102.4 F), tachycardic (P 118), tachypneic (R 24), Pox 93%- which was decreased to 89%; labs showed leukopenia (3.5k), anaemia (Hg 12.3), thrombocytopenia (99k), elevated creatinine (1.63), and SARS-CoV2 pcr was positive; he was started on O2 through positive pressure mask, Pox improved to 96%, O2 was changed to 4L NC, remdesivir and dexamethasone were given. He was seen, found him alert, laying on bed, answered few questions, took of O2 NC, Pox 92%, did not cough during my exam, were not using accessory muscles, appeared little confused and ill. He has h/o dementia, DM, and skin cancer. He was examined; notes, labs, imaging were reviewed and treatment plan was discussed. Past Medical History: Past Medical History: Diagnosis Date Dementia (HCC) Diabetes mellitus (HCC) Hyperlipidemia Hypertension Past Surgical History: Past Surgical History: Procedure Laterality Date BACK SURGERY Current Medications: Current Facility-Administered Medications Medication Dose Route Frequency Provider Last Rate Last Admin acetaminophen (Tylenol) tablet 650 mg 650 mg Oral q6h PRN Kayleigh M Esterle, DO Or acetaminophen (Tylenol) suppository 650 mg 650 mg Rectal q6h PRN Kayleigh M Esterle, DO dexAMETHasone (PF) (Decadron) injection 6 mg 6 mg IntraVENous q24h Kayleigh M Esterle, DO dextrose 5 % infusion 100 mL/hr IntraVENous PRN Kayleigh M Esterle, DO dextrose 50 % solution 12.5 g 12.5 g IntraVENous PRN Kayleigh M Esterle, DO docusate sodium (Colace) capsule 100 mg 100 mg Oral BID Kayleigh M Esterle, DO glucagon (human recombinant) injection 1 mg 1 mg IntraMUSCular PRN Kayleigh M Esterle, DO glucose oral gel 15 g 15 g Oral PRN Kayleigh M Esterle, DO hydrALAZINE (Apresoline) injection 10 mg 10 mg IntraVENous q4h PRN Kayleigh M Esterle, DO Influenza Vac A&B SA Adj quadrivalent (Fluad) vaccine 0.5 mL 0.5 mL IntraMUSCular Prior to discharge Kayleigh M Esterle, DO insulin glargine (Lantus) injection 5 Units 5 Units SubCUTAneous Nightly Radha L Hoiles, SUBSTATION MECHANIC - FULLING MACHINE OPERATOR LORazepam (Ativan) tablet 0.25 mg 0.25 mg Oral q4h PRN Radha L Hoiles, SUBSTATION MECHANIC - FULLING MACHINE OPERATOR Melatonin disintegrating tablet 5 mg 5 mg Oral Nightly PRN Kayleigh M Esterle, DO mirtazapine (Remeron) tablet 15 mg 15 mg Oral Nightly Kayleigh M Esterle, DO morphine 10 MG/0.5ML concentrated solution 5 mg 5 mg Oral q2h PRN Radha L Hoiles, SUBSTATION MECHANIC - FULLING MACHINE OPERATOR naloxone (Narcan) injection 0.4 mg 0.4 mg IntraVENous PRN Radha L Hoiles, SUBSTATION MECHANIC - FULLING MACHINE OPERATOR ondansetron ODT (Zofran-ODT) disintegrating tablet 4 mg 4 mg Oral q8h PRN Kayleigh M Esterle, DO Or ondansetron (Zofran) injection 4 mg 4 mg IntraVENous q6h PRN Kayleigh M Esterle, DO polyethylene glycol (PEG) 3350 (Miralax) packet 17 g 17 g Oral Daily PRN Kayleigh M Esterle, DO remdesivir (Veklury) 100 mg in sodium chloride 0.9 % 250 mL IVPB 100 mg IntraVENous q24h Kayleigh M Esterle, DO sodium chloride 0.9 % infusion 5-250 mL/hr IntraVENous PRN Kayleigh M Esterle, DO sodium chloride 0.9 % infusion 75 mL/hr IntraVENous Continuous Kayleigh M Esterle, DO 75 mL/hr at 09/11/23 1011 75 mL/hr at 09/11/23 1011 sodium chloride 0.9% (NS) flush 10 mL 10 mL IntraVENous 2 times per day Kayleigh M Esterle, DO 10 mL at 09/11/23 1006 sodium chloride 0.9% (NS) flush 10 mL 10 mL IntraVENous PRN Kayleigh M Esterle, DO tamsulosin (Flomax) 24 hr capsule 0.8 mg 0.8 mg Oral Nightly Kayleigh Stout, DO Current Outpatient Medications Medication Sig Dispense Refill cholecalciferol (Vitamin D-3) 50 MCG (1999 UT) capsule Take 2,000 Units by mouth. docusate sodium (Colace) 100 MG capsule Take 100 mg by mouth 2 times daily. insulin glargine (Lantus) 100 UNIT/ML pen Inject 14 Units under the skin Nightly. lisinopril 20 MG tablet Take 20 mg by mouth daily. mirtazapine (Remeron) 15 MG tablet Take 15 mg by mouth Nightly. QUEtiapine (SEROquel) 25 MG tablet Take 0.5 tablets (12.5 mg) by mouth 2 times daily. 30 tablet 0 tamsulosin (Flomax) 0.4 MG 24 hr capsule Take 0.8 mg by mouth Nightly. Allergies: No Known Allergies Social History: Social History Socioeconomic History Marital status: Spouse name: Not on file Number of children: Not on file Years of education: Not on file Highest education level: Not on file Occupational History Not on file Tobacco Use Smoking status: Never Smokeless tobacco: Never Substance and Sexual Activity Alcohol use: Not Currently Drug use: Never Sexual activity: Not on file Other Topics Concern Not on file Social History Narrative Not on file Social Determinants of Health Financial Resource Strain: Not on file Food Insecurity: Not on file Transportation Needs: No Transportation Needs (01/18/2023) PRAPARE - Transportation Lack of Transportation (Medical): No Lack of Transportation (Non-Medical): No Physical Activity: Not on file Stress: Not on file Social Connections: Not on file Intimate Partner Violence: Not At Risk (01/18/2023) Humiliation, Afraid, Rape, and Kick questionnaire Fear of Current or Ex-Partner: No Emotionally Abused: No Physically Abused: No Sexually Abused: No Housing Stability: Low Risk (01/18/2023) Housing Stability Vital Sign Unable to Pay for Housing in the Last Year: No Number of Places Lived in the Last Year: 2 Unstable Housing in the Last Year: No Family History: No family history on file. Review of Systems: Review of Systems Constitutional: Positive for fever. HENT: Negative for ear pain and sinus pain. Eyes: Positive for redness. Respiratory: Positive for shortness of breath. Cardiovascular: Negative for chest pain. Gastrointestinal: Negative for abdominal pain. Endocrine: Negative for polyphagia. Genitourinary: Positive for urgency. Musculoskeletal: Negative for arthralgias. Skin: Negative for rash. Neurological: Negative for headaches. Psychiatric/Behavioral: Positive for confusion. Vitals: Patient Vitals for the past 24 hrs: BP Temp Temp src Pulse Resp SpO2 09/11/23 1158 132/83 -- -- 78 16 91 % 09/11/23 1156 -- 36.2 C (97.2 F) Oral -- -- -- 09/11/23 0900 130/76 -- -- 79 19 97 % 09/11/23 0818 (!) 147/84 (!) 38.4 C (101.1 F) Temporal 77 22 97 % 09/11/23 0407 (!) 154/86 37.8 C (100 F) Temporal 79 20 92 % 09/10/23 2240 -- 36.4 C (97.5 F) Oral -- -- -- 09/10/23 2232 (!) 166/73 -- -- 72 13 97 % 09/10/23 2056 (!) 150/78 -- -- 82 16 100 % 09/10/23 1902 (!) 161/89 -- -- 75 16 94 % 09/10/23 1732 (!) 150/87 -- -- 79 18 93 % 09/10/23 1601 (!) 142/77 -- -- 80 20 94 % 09/10/23 1432 136/68 -- -- 88 20 (!) 89 % 09/10/23 1317 -- 37.5 C (99.5 F) Oral -- -- -- 09/10/23 1239 139/71 -- -- 90 20 96 % 09/10/23 1230 -- (!) 39 C (102.2 F) Rectal -- -- -- Physical Exam: Physical Exam Vitals and nursing notes were reviewed. Constitutional: General: He is in acute distress. Appearance: He is ill-appearing. HENT: Mouth/Throat: Pharynx: Oropharynx is clear. Eyes: Extraocular Movements: Extraocular movements intact. Pupils: Pupils are equal, round, and reactive to light. Cardiovascular: Rate and Rhythm: Regular rhythm. Tachycardia present. Pulmonary: Effort: Pulmonary effort is normal. No accessory muscle usage. Breath sounds: Decreased breath sounds and rhonchi present. Chest: Chest wall: No tenderness. Musculoskeletal: General: Normal range of motion. Cervical back: Normal range of motion. Right lower leg: No edema. Left lower leg: No edema. Skin: General: Skin is warm. Capillary Refill: Capillary refill takes 2 to 3 seconds. Neurological: Mental Status: He is disoriented. Labs: Recent Labs 09/10/23 1219 09/11/23 0635 NA 134* 138 K 4.2 4.6 CL 102 106 CO2 23 23 BUN 50* 42* CREATININE 1.63* 1.27* GLUCOSE 289* 232* CALCIUM 8.4 8.8 PROT -- 7.3 BILITOT -- 0.5 ALKPHOS -- 77 AST -- 41 ALT -- 70* Recent Labs 09/10/23 1219 09/11/23 1031 WBC 3.5* 6.5 HGB 12.3* 12.2* HCT 36.7* 36.9* PLT 99* 97* LYMPHOPCT 13.3* 10.8* MONOPCT 3.5 4.0 BASOPCT 0.2 0.2 NEUTROABS 2.9 5.5 CRP 207.3 221.0 LDH 182 Ferritin 238 Micro: No results for input(s): "COVID19" in the last 72 hours. 09/11/2023 1013 09/11/2023 1019 Blood culture Site #1 - Suspected Infection [[id number]] Blood, Venous In process Component Value No component results 09/11/2023 1013 09/11/2023 1019 Blood culture Site #2 - Suspected Infection [[id number]] Blood, Venous In process Component Value No component results 09/11/2023 0635 09/11/2023 1302 Respiratory culture and Stain [[id number]] (Abnormal) Sputum Preliminary result Component Value Respiratory culture Culture in progress P Gram Stain Result Many Polymorphonuclear leukocytes per low power field Abnormal P Few Epithelial cells per low power field Abnormal P Many Gram positive cocci Abnormal P Few Gram negative bacilli Abnormal P Few Gram positive bacilli Abnormal P Rare Gram negative diplococci Abnormal P 09/10/2023 1219 09/10/2023 1318 SARS-CoV-2, Flu A/B, and RSV Combo [[id number]] (Abnormal) Swab from Nasopharynx Final result Component Value SARS-CoV-2 Detected Abnormal Respiratory Syncytial Virus Not Detected Influenza A Not Detected Influenza B Not Detected Lines: PIV site ok Radiography/Echo/Other: XR chest 1 view [[id number]] Collected: 09/10/23 1228 Order Status: Completed Updated: 09/10/23 1230 Narrative: Patient Name: TITA KEITH : 1935 [facility]#: [id number] Exam Date/Time: 09/10/2023 12:21 Procedure: XR CHEST 1 VIEW Ordering Provider: PHILLIPS JAY Reason For Exam: hypoxia PORTABLE CHEST: INDICATION: Hypoxia COMPARISON: 01/17/2023 Obtained at 1203 hours. A single portable AP radiograph of the chest was obtained. The heart is normal in size. The mediastinal silhouette is normal. The lungs are clear. There are no effusions or infiltrates. There is no pleural thickening. The osseous structures are unremarkable. Impression: No acute process. Report Dictated on Electronically Signed By: Tal Patterson DO Electronically Signed Date/Time: 09/10/2023 12:29 PM EST Antimicrobials,Start/End Dates: Remdesivir 09/10- Impression: Sepsis (fever, tachycardia, tachypnea, leukopenia). COVID-19 infection. Acute hypoxic respiratory failure. Dementia. Skin cancer. ALFRED. Plan: Pt sick due to sepsis and hypoxia due to C-19 infection. He remained febrile and hypoxic-off O2 (he has been removing his NC). He has elevated CRP. CXR unremarkable. Continue remdesivir and dexamethasone. Use of O2 emphasized. His pancytopenia probably due to viral disease. LA borderline. Follow cultures for further recs. Will follow. High level complexity medical decision making. Thank you. Total time 75 minutes on this day of encounter includes counseling, coordinating plan of care, record and documentation review before and after visit including documentation and time not explicitly included on EMR time stamp for accounting for open encounter. Associated Order(s): IP CONSULT TO PALLIATIVE CARE Images from the original note were not included. Palliative Care Initial Consult Chief Complaint: Tita Keith is a 87 y.o. male with chief complaint of increased work of breathing. Palliative Care is actively following. Assessment/Plan Covid - dx 09/10/23 - droplet isolation - resides in [facility]--they are aware of covid status, his roommate has continued to test negative for covid as has all residents and staff - per primary: dexamethasone, remdesivir /, - HFNC-->N/C 4L---> RA was 90%, replaced on 4L - was on morphine concentrate at facility will order prn, 5mg q2h and monitor needs for pain or air hunger Dementia - resides at [facility] - with behaviors as per primary and home list quetiapine scheduled, stopped as not supposed to be on this per facility - med list faxed and placed on chart in ER - will add prn lorazepam 0.25mg q4h prn - was on hospice, revoked to have procedure with dermatology, dtr aware can return with hospice or wait until dermatology surgery which is scheduled for 09/25/23. Also sounds as though he might be improving to point of hospice graduation but given covid might decline with this hospitalization, will continue to monitor HTN/DM/HLD - per primary--of note lantus at facility was 5 units nightly Reduced appetite - yesterday not awake enough to take any oral foods or fluids, does not want food right now, not hungry Palliative Care Encounter -full code--changed to [id number] transfer, if decompensates and needs hospice here will do that - call to dtr Kayleigh at [phone], introduced myself and service, why consulted provided medical updates, and plans. - without LW or HCPOA in epic - dtr Kayleigh is primary emergency contact - call to [facility] spoke with SERENA Wilkerson, will be faxing med list, confirms was on 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 Was on PRN lorazepam and morphine concentrate [employer] with minimal use. - will continue to follow for ongoing monitoring of progression of Dyspnea - will continue to evaluate test results related to COVID-19, medication effectiveness for Dyspnea, response to treatment of COVID-19 - follow Total of 75 minutes spent on this encounter including Chart review, Patient visit and exam, Documentation in EHR, Care coordination, Communicating with primary attending or other consultants, Electronic mill recorder of medications, tests or procedures, and Counseling and educating patient/family/caregiver. Discharge planning: Not ready for discharge due to medical instability Patient meets criteria for general inpatient hospice care including the following: N/A - Palliative Care Patient Referrals to: None Discussed patient and the plan of care with the other interdisciplinary team (IDT) members of Palliative Care Team, and with Primary Attending, Patient, Family, and Floor Nurse Insert attestation statement here if applicable (.disupervision) or (.npattest) I have discussed the patient's case and plan of care with my collaborating physician Dr. Jiang Subjective: Hospital days prior to consult: 0--seen in ER Trauma Consult: no. (If yes, please add .traumapall aries for tracking purposes.) Subjective/Events Tita Keith is a 87 y.o. male residing at [facility] for 24 hour care and supervision for underlying dementia, DM, HTN, HLD, skin cancer, had been on hospice services, but revoked to have biopsy completed last week. Had increased work of breathing, prompting SBHER, tested positive for covid, plans for admitting for treatment. Palliative care consulted for goals of care. Appears discussion with family regarding code status done but remains full code at this time. Patient awake in bed in NAD without pain, CP, abdominal pain, breathing easier, no nausea, vomiting, BM yesterday, not hungry Off hospice for squamous cell carcinoma. [facility], [facility] Pain Assessment (If Pain Scale >0) Denies pain Goals of care:Continue Current Management Advance Directives: Full Code Surrogate: Child Prognosis: depends upon goals Spiritual assessment: No spiritual distress identified Bereavement and grief: Grief Issues Not Identified Past Medical History: Diagnosis Date Dementia (HCC) Diabetes mellitus (HCC) Hyperlipidemia Hypertension Past Surgical History: Procedure Laterality Date BACK SURGERY No family history on file. Unable to obtain family history due to dementia No Known Allergies Review of Systems ROS: See palliative care ROS/ESAS below; All other systems were reviewed and are negative. [place] Symptom Assessment Score [place] Score Pain Score 0 Tiredness Score 0 Nausea Score 0 Depression Score 0 Anxiety Score 0 Drowsiness Score 0 Anorexia Score (0= eating well, 10= not eating) 5 Wellbeing Score (10= worst sense of well-being) 0 Constipation 0 Dyspnea Score (0= no shortness of breath) 4 FLACC Scale (For Pain Assessment of the Non-Verbal Patient) Patient is verbal Assessed by: provider. 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 As above Family Meeting: Participants: patient and child Family meeting was held to discuss:Diagnosis and Prognosis, Goals of Care, Symptom Management, and Discharge Plan Objective: Physical Exam BP (!) 147/84 Pulse 77 Temp (!) 38.4 C (101.1 F) (Temporal) Resp 22 SpO2 97% Physical Exam Vitals and nursing note reviewed. Constitutional: Appearance: He is ill-appearing. HENT: Head: Normocephalic and atraumatic. Nose: Nose normal. Mouth/Throat: Mouth: Mucous membranes are moist. Eyes: General: Right eye: No discharge. Left eye: No discharge. Cardiovascular: Rate and Rhythm: Normal rate and regular rhythm. Pulses: Normal pulses. Heart sounds: Normal heart sounds. No murmur heard. Comments: No edema B post tib/dorsalis pedis palpable Pulmonary: Effort: Pulmonary effort is normal. Breath sounds: Decreased breath sounds present. Abdominal: General: Bowel sounds are normal. There is no distension. Palpations: Abdomen is soft. There is no mass. Genitourinary: Comments: External male catheter Musculoskeletal: Cervical back: Normal range of motion and neck supple. Right lower leg: No edema. Left lower leg: No edema. Skin: General: Skin is warm and dry. Comments: fragile Neurological: Mental Status: He is disoriented. Psychiatric: Behavior: Behavior is cooperative. Comments: No agitation Current Medications: Inpatient medications reviewed: yes Home medications reviewed: yes OARRS Reviewed: Yes-no reportable medications, patient resided in [facility] 24 Hour PRN Meds: no PRN medications in 24 hours Results/Verification of Data Review Objective data reviewed (be specific which labs, imaging reports with dates reviewed): MAR/vitals/labs reviewed 09/11/23 09/10/23: COVID positive Data in Support of Terminal Illness: Is patient hospice appropriate? TBD Transition Note Initiated: yes. documented in this encounter [facility] 09-11-2023 Emergency department Note Patient up in bed at this time, speaking with this RN. Patient VS updated, patient being afebrile at this time and 92% on RA. Call light within reach. Nick Branham RN 09/11/23 115 [facility] 09-11-2023 Emergency department Note Patient up in bed at this time, speaking with this RN. Patient VS updated, patient being afebrile at this time and 92% on RA. Call light within reach. Nick Branham RN 09/11/[address] Stout notified that pt has not been alert enough to take PO medications. Per Dr Stout, ok to hold PO medications as well as lantus because pt is not eating meals. Molly Garcia RN 09/10/232043 Dr Stout contacted and asked for admission orders. States they will be put in shortly. Molly Garcia RN [facility]23[facility] Perla Sousa RN 09/10/[address] Jm mckinley. Pt to be transitioned to high flow NC Molly Garcia RN 09/10/23 1138 EMERGENCY DEPARTMENT ENCOUNTER Pt Name: Tita Keith Birthdate 1935 Date of evaluation: 09/10/2023 ED Provider: Bernard Phillips MD CHIEF COMPLAINT Chief Complaint Patient presents with Shortness of Breath HISTORY OF PRESENT ILLNESS I wore appropriate PPE for the entirety of this encounter. HPI Tita Keith is a 87 y.o. person who presents to the emergency department with concern for shortness of breath. Has a history of dementia diabetes skin cancer from nursing facility. Initially came in with DNR CC paperwork although patient was not able to provide much details on this or his presentation. Reportedly developed a fever last night was tested positive for COVID-19. Was placed on CPAP by EMS as he was hypoxic which he normally is not. He does appear more somnolent. Discussed with patient's power of city attorney and daughter who noted that she revoked his hospice last week as he had a skin biopsy of his head although does not believe he would want intubation or extreme measures. Did note that would likely be amenable to at least more comfort measures as well as treatment of underlying COVID-19 as well as with oxygen therapy and fluids. Nursing Notes were reviewed. Limitations to history: Patient's mental status Outside historians: Family REVIEW OF SYSTEMS Review of Systems Unable to perform ROS: Mental status change PAST MEDICAL HISTORY Past Medical History: Diagnosis Date Dementia (HCC) Diabetes mellitus (HCC) Hyperlipidemia Hypertension SURGICAL HISTORY Past Surgical History: Procedure Laterality Date BACK SURGERY CURRENT MEDICATIONS Previous Medications CHOLECALCIFEROL (VITAMIN D-3) 50 MCG (1999) CAPSULE Take 2,000 Units by mouth. DOCUSATE SODIUM (COLACE) 100 MG CAPSULE Take 100 mg by mouth 2 times daily. INSULIN GLARGINE (LANTUS) 100 UNIT/ML PEN Inject 14 Units under the skin Nightly. LISINOPRIL 20 MG TABLET Take 20 mg by mouth daily. MIRTAZAPINE (REMERON) 15 MG TABLET Take 15 mg by mouth Nightly. QUETIAPINE (SEROQUEL) 25 MG TABLET Take 0.5 tablets (12.5 mg) by mouth 2 times daily. TAMSULOSIN (FLOMAX) 0.4 MG 24 HR CAPSULE Take 0.8 mg by mouth Nightly. ALLERGIES Patient has no known allergies. FAMILY HISTORY No family history on file. SOCIAL HISTORY Social History Socioeconomic History Marital status: Tobacco Use Smoking status: Never Smokeless tobacco: Never Substance and Sexual Activity Alcohol use: Not Currently Drug use: Never Social Determinants of Health Transportation Needs: No Transportation Needs (01/18/2023) PRAPARE - Transportation Lack of Transportation (Medical): No Lack of Transportation (Non-Medical): No Intimate Partner Violence: Not At Risk (01/18/2023) Humiliation, Afraid, Rape, and Kick questionnaire Fear of Current or Ex-Partner: No Emotionally Abused: No Physically Abused: No Sexually Abused: No Housing Stability: Low Risk (01/18/2023) Housing Stability Vital Sign Unable to Pay for Housing in the Last Year: No Number of Places Lived in the Last Year: 2 Unstable Housing in the Last Year: No SCREENINGS PHYSICAL EXAM ED Triage Vitals Temp Heart Rate Resp BP 09/10/23 1134 09/10/23 1132 09/10/23 1132 09/10/23 1132 (!) 39.1 C (102.4 F) (!) 118 24 (!) 139/127 SpO2 Temp Source Heart Rate Source Patient Position 09/10/23 1132 09/10/23 1134 -- -- 93 % Axillary BP Location FiO2 (%) -- -- Physical Exam Constitutional: General: He is in acute distress. Appearance: He is ill-appearing. HENT: Mouth/Throat: Pharynx: Oropharynx is clear. Eyes: Extraocular Movements: Extraocular movements intact. Pupils: Pupils are equal, round, and reactive to light. Cardiovascular: Rate and Rhythm: Regular rhythm. Tachycardia present. Pulmonary: Effort: Pulmonary effort is normal. No accessory muscle usage. Breath sounds: Decreased breath sounds and rhonchi present. Chest: Chest wall: No tenderness. Musculoskeletal: General: Normal range of motion. Cervical back: Normal range of motion. Right lower leg: No edema. Left lower leg: No edema. Skin: General: Skin is warm. Capillary Refill: Capillary refill takes 2 to 3 seconds. Neurological: Mental Status: He is disoriented. DIAGNOSTIC RESULTS RADIOLOGY (Per Emergency Physician): Interpretation per the Radiologist below, if available at the time of this note: XR chest 1 view Final Result No acute process. Report Dictated on Electronically Signed By: Tal Patterson DO Electronically Signed Date/Time: 09/10/2023 12:29 PM EST EKG Interpretation: Sinus rhythm [address] segment elevations or depressions concerning for ischemia LABS: Labs Reviewed SARS-COV-2, FLU A/B, AND RSV COMBO - Abnormal Result Value SARS-CoV-2 Detected (*) Respiratory Syncytial Virus Not Detected Influenza A Not Detected Influenza B Not Detected Narrative: Methodology: real-time, RT-PCR The SARS-CoV-2, Flu A/B, and RSV Combo assay is intended for in vitro diagnostic use under the FDA Emergency Use Authorization (EUA). This test has not been FDA cleared or approved. In compliance with this authorization, please visit www.fda.gov/media/436995/download or www.fda.gov/media/594668/download to access the applicable information sheets. CBC WITH AUTO DIFFERENTIAL - Abnormal Auto WBC 3.5 (*) RBC 4.11 (*) Hemoglobin 12.3 (*) Hematocrit 36.7 (*) MCV 89.3 MCH 29.9 MCHC 33.5 RDW 14.1 Platelets 99 (*) MPV 9.2 nRBC 0.2 Neutrophils Relative 83.0 (*) Lymphocytes Relative 13.3 (*) Monocytes Relative 3.5 Eosinophils Relative 0.0 (*) Basophils Relative 0.2 Neutrophils Absolute 2.9 Lymphocytes Absolute 0.5 (*) Monocytes Absolute 0.1 Eosinophils Absolute 0.0 Basophils Absolute 0.0 BASIC METABOLIC PANEL - Abnormal SODIUM 134 (*) POTASSIUM 4.2 CHLORIDE 102 CARBON DIOXIDE 23 UREA NITROGEN 50 (*) CREATININE 1.63 (*) GLUCOSE 289 (*) CALCIUM 8.4 ANION GAP 8 eGFR 40.5 (*) LACTIC ACID WITH REFLEX - Normal LACTIC ACID 2.0 All other labs were within normal range or not returned as of this dictation. EMERGENCY DEPARTMENT COURSE and DIFFERENTIAL DIAGNOSIS/MDM: Vitals: Vitals: 09/10/23 1148 09/10/23 1230 09/10/23 1239 09/10/23 1317 BP: 139/71 Pulse: 100 90 Resp: 24 20 Temp: (!) 39 C (102.2 F) 37.5 C (99.5 F) TempSrc: Rectal Oral SpO2: 95% 96% Medications Administered in the ED: Medications dexAMETHasone (PF) (Decadron) injection 8 mg (8 mg IntraVENous Given 09/10/23 1227) sodium chloride 0.9 % bolus 1,000 mL (0 mL IntraVENous Stopped 09/10/23 1321) acetaminophen (Tylenol) suppository 650 mg (650 mg Rectal Given 09/10/23 1230) With shortness of breath, COVID-19 PROCEDURES: Unless otherwise noted below, none Procedures Differential Diagnosis Considerations: Viral pneumonia, hypoxia Sources of History: Patient, family ED Course: Vital signs on arrival with hypoxia, febrile without any hypotension. Is tachycardic as well. Patient was on CPAP and he was moving adequate air decision was made to place on nasal cannula for comfort purposes while we discussed with family members who noted that patient would still be agreeable to some nonaggressive measures such as steroids, oxygen and fluids if warranted although would not want intubation or other severe life saving measures. Did obtain chest x-ray, basic blood work, given Decadron and fluids. We will plan to admit and have inpatient palliative team evaluation to see if he is appropriate for hospice especially if his clinical course deteriorates. Does not want any significant escalation of care Reassessment: Work-up was positive for COVID-19, creatinine slightly elevated concerning for ALFRED. Fever did improve as well as his tachycardia although still on supplemental oxygen. Discussed this finding with family member and are recommending admission for further treatment as well as palliative care intervention as warranted. Consideration of Admission/Observation: Independent Interpretation of Tests: Diagnostic Tests Considered but not Performed: Prescription Medications Considered but not Prescribed: Chronic Conditions Affecting Care: FINAL IMPRESSION 1. COVID-19 2. Hypoxia DISPOSITION Admit 09/10/2023 02:03:33 PM PATIENT REFERRED TO: No follow-up provider specified. DISCHARGE MEDICATIONS: New Prescriptions No medications on file (Comment: Please note this report has been produced using speech recognition software and may contain errors related to that system including errors in grammar, punctuation, and spelling, as well as words and phrases that may be inappropriate. If there are any questions or concerns please feel free to contact the dictating provider for clarification.) Bernard Phillips MD (electronically signed) Emergency Medicine Provider [facility] Bernard Phillips MD 09/10/23 1436 Pt arrived by squad from a facility for AMS and SOB. Pt tested positive for covid this morning. Per EMS pt is normally alert and talking. Pt not responding to triage questions. Alert to voice. Pt arrived on CPAP sats in the low 90's. Per EMS pt is DNR. No paperwork provided at this time. Will call facility to have it faxed over Bed: 08 Expected date: Expected time: Means of arrival: Comments: Nathaniel Garcia RN 09/10/23 1122 documented in this encounter [facility] 09-11-2023 History and physical note Department of Family Medicine Attending History and Physical CHIEF COMPLAINT: sob Reason for Admission: covid History Obtained From: patient and medical records History of Present Illness Tita Keith is a 87 y.o. person who presents to the emergency department with concern for shortness of breath. Has a history of dementia diabetes skin cancer from nursing facility. Initially came in with DNR CC paperwork although patient was not able to provide much details on this or his presentation. Reportedly developed a fever last night was tested positive for COVID-19. Was placed on CPAP by EMS as he was hypoxic which he normally is not. He does appear more somnolent. Discussed with patient's power of city attorney and daughter who noted that she revoked his hospice last week as he had a skin biopsy of his head although does not believe he would want intubation or extreme measures. Did note that would likely be amenable to at least more comfort measures as well as treatment of underlying COVID-19 as well as with oxygen therapy and fluids. He was started on iv remdesivir and decadron; I have also consulted palliative care. He is doing a little better this am still on high flow oxygen. Past Medical History: Past Medical History: Diagnosis Date Dementia (HCC) Diabetes mellitus (HCC) Hyperlipidemia Hypertension Past Surgical History: Past Surgical History: Procedure Laterality Date BACK SURGERY Medications Prior to Admission: (Not in a hospital admission) Allergies: Patient has no known allergies. Social History: Social History Socioeconomic History Marital status: Tobacco Use Smoking status: Never Smokeless tobacco: Never Substance and Sexual Activity Alcohol use: Not Currently Drug use: Never Social Determinants of Health Transportation Needs: No Transportation Needs (01/18/2023) PRAPARE - Transportation Lack of Transportation (Medical): No Lack of Transportation (Non-Medical): No Intimate Partner Violence: Not At Risk (01/18/2023) Humiliation, Afraid, Rape, and Kick questionnaire Fear of Current or Ex-Partner: No Emotionally Abused: No Physically Abused: No Sexually Abused: No Housing Stability: Low Risk (01/18/2023) Housing Stability Vital Sign Unable to Pay for Housing in the Last Year: No Number of Places Lived in the Last Year: 2 Unstable Housing in the Last Year: No Family History: No family history on file. REVIEW OF SYSTEMS: Review of Systems Unable to assess due to his mental status Objective Vitals: BP (!) 147/84 Pulse 77 Temp (!) 38.4 C (101.1 F) (Temporal) Resp 22 SpO2 97% Physical Exam Pt is alert and oriented x 2 Heent wnl Heart regular Lungs diminished throughout Abd benign Ext no edema Assessment/Plan Patient Active Problem List Diagnosis New onset type 2 diabetes mellitus (CMS/HCC) (HCC) Hyperosmolar hyperglycemic state (HHS) (HCC) Hyperglycemia Severe malnutrition (CMS/HCC) (HCC) COVID-19 Sepsis Acute hypoxic respiratory failure Covid 19 DM 2 Dementia HTN HPL Plan Admit to med floor Consult ID Consult palliative Iv remdesivir and decadron KAYLEIGH STOUT DO 09/11/23 9:04 AM [facility] 09-11-2023 History and physical note Department of Family Medicine Attending History and Physical CHIEF COMPLAINT: sob Reason for Admission: covid History Obtained From: patient and medical records History of Present Illness Tita Keith is a 87 y.o. person who presents to the emergency department with concern for shortness of breath. Has a history of dementia diabetes skin cancer from nursing facility. Initially came in with DNR CC paperwork although patient was not able to provide much details on this or his presentation. Reportedly developed a fever last night was tested positive for COVID-19. Was placed on CPAP by EMS as he was hypoxic which he normally is not. He does appear more somnolent. Discussed with patient's power of city attorney and daughter who noted that she revoked his hospice last week as he had a skin biopsy of his head although does not believe he would want intubation or extreme measures. Did note that would likely be amenable to at least more comfort measures as well as treatment of underlying COVID-19 as well as with oxygen therapy and fluids. He was started on iv remdesivir and decadron; I have also consulted palliative care. He is doing a little better this am still on high flow oxygen. Past Medical History: Past Medical History: Diagnosis Date Dementia (HCC) Diabetes mellitus (HCC) Hyperlipidemia Hypertension Past Surgical History: Past Surgical History: Procedure Laterality Date BACK SURGERY Medications Prior to Admission: (Not in a hospital admission) Allergies: Patient has no known allergies. Social History: Social History Socioeconomic History Marital status: Tobacco Use Smoking status: Never Smokeless tobacco: Never Substance and Sexual Activity Alcohol use: Not Currently Drug use: Never Social Determinants of Health Transportation Needs: No Transportation Needs (01/18/2023) PRAPARE - Transportation Lack of Transportation (Medical): No Lack of Transportation (Non-Medical): No Intimate Partner Violence: Not At Risk (01/18/2023) Humiliation, Afraid, Rape, and Kick questionnaire Fear of Current or Ex-Partner: No Emotionally Abused: No Physically Abused: No Sexually Abused: No Housing Stability: Low Risk (01/18/2023) Housing Stability Vital Sign Unable to Pay for Housing in the Last Year: No Number of Places Lived in the Last Year: 2 Unstable Housing in the Last Year: No Family History: No family history on file. REVIEW OF SYSTEMS: Review of Systems Unable to assess due to his mental status Objective Vitals: BP (!) 147/84 Pulse 77 Temp (!) 38.4 C (101.1 F) (Temporal) Resp 22 SpO2 97% Physical Exam Pt is alert and oriented x 2 Heent wnl Heart regular Lungs diminished throughout Abd benign Ext no edema Assessment/Plan Patient Active Problem List Diagnosis New onset type 2 diabetes mellitus (CMS/HCC) (HCC) Hyperosmolar hyperglycemic state (HHS) (HCC) Hyperglycemia Severe malnutrition (CMS/HCC) (HCC) COVID-19 Sepsis Acute hypoxic respiratory failure Covid 19 DM 2 Dementia HTN HPL Plan Admit to med floor Consult ID Consult palliative Iv remdesivir and decadron KAYLEIGH STOUT DO 09/11/23 9:04 AM documented in this encounter [facility] 09-11-2023 Consult note Associated Order (s): IP CONSULT TO PALLIATIVE CARE Images from the original note were not included. Palliative Care Initial Consult Chief Complaint: Tita Keith is a 87 y.o. male with chief complaint of increased work of breathing. Palliative Care is actively following. Assessment/Plan Covid - dx 09/10/23 - droplet isolation - resides in [facility]--they are aware of covid status, his roommate has continued to test negative for covid as has all residents and staff - per primary: dexamethasone, remdesivir 2/5, - HFNC-->N/C 4L---> RA was 90%, replaced on 4L - was on morphine concentrate at facility will order prn, 5mg q2h and monitor needs for pain or air hunger Dementia - resides at [facility] - with behaviors as per primary and home list quetiapine scheduled, stopped as not supposed to be on this per facility - med list faxed and placed on chart in ER - will add prn lorazepam 0.25mg q4h prn - was on hospice, revoked to have procedure with dermatology, dtr aware can return with hospice or wait until dermatology surgery which is scheduled for 09/25/23. Also sounds as though he might be improving to point of hospice graduation but given covid might decline with this hospitalization, will continue to monitor HTN/DM/HLD - per primary--of note lantus at facility was 5 units nightly Reduced appetite - yesterday not awake enough to take any oral foods or fluids, does not want food right now, not hungry Palliative Care Encounter -full code--changed to [id number] icu transfer, if decompensates and needs hospice here will do that - call to dtr Kayleigh at [phone], introduced myself and service, why consulted provided medical updates, and plans. - without LW or HCPOA in [facility] - dtr Kayleigh is primary emergency contact - call to ECF spoke with SERENA Wilkerson, will be faxing med list, confirms was on 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 Was on PRN lorazepam and morphine concentrate [employer]ATING [employer] with minimal use. - will continue to follow for ongoing monitoring of progression of Dyspnea - will continue to evaluate test results related to COVID-19, medication effectiveness for Dyspnea, response to treatment of COVID-19 - follow Total of 75 minutes spent on this encounter including Chart review, Patient visit and exam, Documentation in EHR, Care coordination, Communicating with primary attending or other consultants, Electronic mill recorder of medications, tests or procedures, and Counseling and educating patient/family/caregiver. Discharge planning: Not ready for discharge due to medical instability Patient meets criteria for general inpatient hospice care including the following: N/A - Palliative Care Patient Referrals to: None Discussed patient and the plan of care with the other interdisciplinary team (IDT) members of Palliative Care Team, and with Primary Attending, Patient, Family, and Floor Nurse Insert attestation statement here if applicable (.disupervision) or (.npattest) I have discussed the patient's case and plan of care with my collaborating physician Dr. Jiang Subjective: Hospital days prior to consult: 0--seen in ER Trauma Consult: no. (If yes, please add .traumapall dotphrase for tracking purposes.) Subjective/Events Tita Keith is a 87 y.o. male residing at [facility] for 24 hour care and supervision for underlying dementia, DM, HTN, HLD, skin cancer, had been on hospice services, but revoked to have biopsy completed last week. Had increased work of breathing, prompting SBHER, tested positive for covid, plans for admitting for treatment. Palliative care consulted for goals of care. Appears discussion with family regarding code status done but remains full code at this time. Patient awake in bed in NAD without pain, CP, abdominal pain, breathing easier, no nausea, vomiting, BM yesterday, not hungry Off hospice for squamous cell carcinoma. [facility] Pain Assessment (If Pain Scale >0) Denies pain Goals of care:Continue Current Management Advance Directives: Full Code Surrogate: Child Prognosis: depends upon goals Spiritual assessment: No spiritual distress identified Bereavement and grief: Grief Issues Not Identified Past Medical History: Diagnosis Date Dementia (HCC) Diabetes mellitus (HCC) Hyperlipidemia Hypertension Past Surgical History: Procedure Laterality Date BACK SURGERY No family history on file. Unable to obtain family history due to dementia No Known Allergies Review of Systems ROS: See palliative care ROS/ESAS below; All other systems were reviewed and are negative. [place] Symptom Assessment Score [place] Score Pain Score 0 Tiredness Score 0 Nausea Score 0 Depression Score 0 Anxiety Score 0 Drowsiness Score 0 Anorexia Score (0= eating well, 10= not eating) 5 Wellbeing Score (10= worst sense of well-being) 0 Constipation 0 Dyspnea Score (0= no shortness of breath) 4 FLACC Scale (For Pain Assessment of the Non-Verbal Patient) Patient is verbal Assessed by: provider. 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 As above Family Meeting: Participants: patient and child Family meeting was held to discuss:Diagnosis and Prognosis, Goals of Care, Symptom Management, and Discharge Plan Objective: Physical Exam BP (!) 147/84 Pulse 77 Temp (!) 38.4 C (101.1 F) (Temporal) Resp 22 SpO2 97% Physical Exam Vitals and nursing note reviewed. Constitutional: Appearance: He is ill-appearing. HENT: Head: Normocephalic and atraumatic. Nose: Nose normal. Mouth/Throat: Mouth: Mucous membranes are moist. Eyes: General: Right eye: No discharge. Left eye: No discharge. Cardiovascular: Rate and Rhythm: Normal rate and regular rhythm. Pulses: Normal pulses. Heart sounds: Normal heart sounds. No murmur heard. Comments: No edema B post tib/dorsalis pedis palpable Pulmonary: Effort: Pulmonary effort is normal. Breath sounds: Decreased breath sounds present. Abdominal: General: Bowel sounds are normal. There is no distension. Palpations: Abdomen is soft. There is no mass. Genitourinary: Comments: External male catheter Musculoskeletal: Cervical back: Normal range of motion and neck supple. Right lower leg: No edema. Left lower leg: No edema. Skin: General: Skin is warm and dry. Comments: fragile Neurological: Mental Status: He is disoriented. Psychiatric: Behavior: Behavior is cooperative. Comments: No agitation Current Medications: Inpatient medications reviewed: yes Home medications reviewed: yes OARRS Reviewed: Yes-no reportable medications, patient resided in [facility] 24 Hour PRN Meds: no PRN medications in 24 hours Results/Verification of Data Review Objective data reviewed (be specific which labs, imaging reports with dates reviewed): MAR/vitals/labs reviewed 09/11/23 09/10/23: COVID positive Data in Support of Terminal Illness: Is patient hospice appropriate? TBD Transition Note Initiated: yes. [facility] 09-10-[address] Stout notified that pt has not been alert enough to take PO medications. Per Dr Stout, ok to hold PO medications as well as lantus because pt is not eating meals. Molly Garcia RN 09/10/232043 [facility] 09-10-[address] Stout contacted and asked for admission orders. States they will be put in shortly. Molly Garcia RN 09/10/231958 [facility] 09-10-[address] [facility] to fax over DNR Perla Sousa RN 09/10/23 1138 [facility] 09-10-2023 Emergency department Note RT and Dr Jm mckinley. Pt to be transitioned to high flow NC Molly Garcia RN 09/10/23 1138 [facility] 09-10-2023 Emergency department Note Bed: 08 Expected date: Expected time: Means of arrival: Comments: Nathaniel Garcia RN 09/10/23 1122 [facility] 09-10-2023 Emergency department Triage note Pt arrived by squad from a facility for AMS and SOB. Pt tested positive for covid this morning. Per EMS pt is normally alert and talking. Pt not responding to triage questions. Alert to voice. Pt arrived on CPAP sats in the low 90's. Per EMS pt is DNR. No paperwork provided at this time. Will call facility to have it faxed over [facility] 09-10-2023 Physician Emergency department Note EMERGENCY DEPARTMENT ENCOUNTER Pt Name: Tita Keith Birthdate 1935 Date of evaluation: 09/10/2023 ED Provider: Bernard Phillips MD CHIEF COMPLAINT Chief Complaint Patient presents with Shortness of Breath HISTORY OF PRESENT ILLNESS I wore appropriate PPE for the entirety of this encounter. HPI Tita Keith is a 87 y.o. person who presents to the emergency department with concern for shortness of breath. Has a history of dementia diabetes skin cancer from nursing facility. Initially came in with DNR CC paperwork although patient was not able to provide much details on this or his presentation. Reportedly developed a fever last night was tested positive for COVID-19. Was placed on CPAP by EMS as he was hypoxic which he normally is not. He does appear more somnolent. Discussed with patient's power of city attorney and daughter who noted that she revoked his hospice last week as he had a skin biopsy of his head although does not believe he would want intubation or extreme measures. Did note that would likely be amenable to at least more comfort measures as well as treatment of underlying COVID-19 as well as with oxygen therapy and fluids. Nursing Notes were reviewed. Limitations to history: Patient's mental status Outside historians: Family REVIEW OF SYSTEMS Review of Systems Unable to perform ROS: Mental status change PAST MEDICAL HISTORY Past Medical History: Diagnosis Date Dementia (HCC) Diabetes mellitus (HCC) Hyperlipidemia Hypertension SURGICAL HISTORY Past Surgical History: Procedure Laterality Date BACK SURGERY CURRENT MEDICATIONS Previous Medications CHOLECALCIFEROL (VITAMIN D-3) 50 MCG (2000 UT) CAPSULE Take 2,000 Units by mouth. DOCUSATE SODIUM (COLACE) 100 MG CAPSULE Take 100 mg by mouth 2 times daily. INSULIN GLARGINE (LANTUS) 100 UNIT/ML PEN Inject 14 Units under the skin Nightly. LISINOPRIL 20 MG TABLET Take 20 mg by mouth daily. MIRTAZAPINE (REMERON) 15 MG TABLET Take 15 mg by mouth Nightly. QUETIAPINE (SEROQUEL) 25 MG TABLET Take 0.5 tablets (12.5 mg) by mouth 2 times daily. TAMSULOSIN (FLOMAX) 0.4 MG 24 HR CAPSULE Take 0.8 mg by mouth Nightly. ALLERGIES Patient has no known allergies. FAMILY HISTORY No family history on file. SOCIAL HISTORY Social History Socioeconomic History Marital status: Tobacco Use Smoking status: Never Smokeless tobacco: Never Substance and Sexual Activity Alcohol use: Not Currently Drug use: Never Social Determinants of Health Transportation Needs: No Transportation Needs (01/18/2023) PRAPARE - Transportation Lack of Transportation (Medical): No Lack of Transportation (Non-Medical): No Intimate Partner Violence: Not At Risk (01/18/2023) Humiliation, Afraid, Rape, and Kick questionnaire Fear of Current or Ex-Partner: No Emotionally Abused: No Physically Abused: No Sexually Abused: No Housing Stability: Low Risk (01/18/2023) Housing Stability Vital Sign Unable to Pay for Housing in the Last Year: No Number of Places Lived in the Last Year: 2 Unstable Housing in the Last Year: No SCREENINGS PHYSICAL EXAM ED Triage Vitals Temp Heart Rate Resp BP 09/10/23 1134 09/10/23 1132 09/10/23 1132 09/10/23 1132 (!) 39.1 C (102.4 F) (!) 118 24 (!) 139/127 SpO2 Temp Source Heart Rate Source Patient Position 09/10/23 1132 09/10/23 1134 -- -- 93 % Axillary BP Location FiO2 (%) -- -- Physical Exam Constitutional: General: He is in acute distress. Appearance: He is ill-appearing. HENT: Mouth/Throat: Pharynx: Oropharynx is clear. Eyes: Extraocular Movements: Extraocular movements intact. Pupils: Pupils are equal, round, and reactive to light. Cardiovascular: Rate and Rhythm: Regular rhythm. Tachycardia present. Pulmonary: Effort: Pulmonary effort is normal. No accessory muscle usage. Breath sounds: Decreased breath sounds and rhonchi present. Chest: Chest wall: No tenderness. Musculoskeletal: General: Normal range of motion. Cervical back: Normal range of motion. Right lower leg: No edema. Left lower leg: No edema. Skin: General: Skin is warm. Capillary Refill: Capillary refill takes 2 to 3 seconds. Neurological: Mental Status: He is disoriented. DIAGNOSTIC RESULTS RADIOLOGY (Per Emergency Physician): Interpretation per the Radiologist below, if available at the time of this note: XR chest 1 view Final Result No acute process. Report Dictated on Electronically Signed By: Tal Patterson DO Electronically Signed Date/Time: 09/10/2023 12:29 PM EST EKG Interpretation: Sinus rhythm [address] segment elevations or depressions concerning for ischemia LABS: Labs Reviewed SARS-COV-2, FLU A/B, AND RSV COMBO - Abnormal Result Value SARS-CoV-2 Detected (*) Respiratory Syncytial Virus Not Detected Influenza A Not Detected Influenza B Not Detected Narrative: Methodology: real-time, RT-PCR The SARS-CoV-2, Flu A/B, and RSV Combo assay is intended for in vitro diagnostic use under the FDA Emergency Use Authorization (EUA). This test has not been FDA cleared or approved. In compliance with this authorization, please visit www.fda.gov/media/291206/download or www.fda.gov/media/023772/download to access the applicable information sheets. CBC WITH AUTO DIFFERENTIAL - Abnormal Auto WBC 3.5 (*) RBC 4.11 (*) Hemoglobin 12.3 (*) Hematocrit 36.7 (*) MCV 89.3 MCH 29.9 MCHC 33.5 RDW 14.1 Platelets 99 (*) MPV 9.2 nRBC 0.2 Neutrophils Relative 83.0 (*) Lymphocytes Relative 13.3 (*) Monocytes Relative 3.5 Eosinophils Relative 0.0 (*) Basophils Relative 0.2 Neutrophils Absolute 2.9 Lymphocytes Absolute 0.5 (*) Monocytes Absolute 0.1 Eosinophils Absolute 0.0 Basophils Absolute 0.0 BASIC METABOLIC PANEL - Abnormal SODIUM 134 (*) POTASSIUM 4.2 CHLORIDE 102 CARBON DIOXIDE 23 UREA NITROGEN 50 (*) CREATININE 1.63 (*) GLUCOSE 289 (*) CALCIUM 8.4 ANION GAP 8 eGFR 40.5 (*) LACTIC ACID WITH REFLEX - Normal LACTIC ACID 2.0 All other labs were within normal range or not returned as of this dictation. EMERGENCY DEPARTMENT COURSE and DIFFERENTIAL DIAGNOSIS/MDM: Vitals: Vitals: 09/10/23 1148 09/10/23 1230 09/10/23 1239 09/10/23 1317 BP: 139/71 Pulse: 100 90 Resp: 24 20 Temp: (!) 39 C (102.2 F) 37.5 C (99.5 F) TempSrc: Rectal Oral SpO2: 95% 96% Medications Administered in the ED: Medications dexAMETHasone (PF) (Decadron) injection 8 mg (8 mg IntraVENous Given 09/10/23 1227) sodium chloride 0.9 % bolus 1,000 mL (0 mL IntraVENous Stopped 09/10/23 1321) acetaminophen (Tylenol) suppository 650 mg (650 mg Rectal Given 09/10/23 1230) With shortness of breath, COVID-19 PROCEDURES: Unless otherwise noted below, none Procedures Differential Diagnosis Considerations: Viral pneumonia, hypoxia Sources of History: Patient, family ED Course: Vital signs on arrival with hypoxia, febrile without any hypotension. Is tachycardic as well. Patient was on CPAP and he was moving adequate air decision was made to place on nasal cannula for comfort purposes while we discussed with family members who noted that patient would still be agreeable to some nonaggressive measures such as steroids, oxygen and fluids if warranted although would not want intubation or other severe life saving measures. Did obtain chest x-ray, basic blood work, given Decadron and fluids. We will plan to admit and have inpatient palliative team evaluation to see if he is appropriate for hospice especially if his clinical course deteriorates. Does not want any significant escalation of care Reassessment: Work-up was positive for COVID-19, creatinine slightly elevated concerning for ALFRED. Fever did improve as well as his tachycardia although still on supplemental oxygen. Discussed this finding with family member and are recommending admission for further treatment as well as palliative care intervention as warranted. Consideration of Admission/Observation: Independent Interpretation of Tests: Diagnostic Tests Considered but not Performed: Prescription Medications Considered but not Prescribed: Chronic Conditions Affecting Care: FINAL IMPRESSION 1. COVID-19 2. Hypoxia DISPOSITION Admit 09/10/2023 02:03:33 PM PATIENT REFERRED TO: No follow-up provider specified. DISCHARGE MEDICATIONS: New Prescriptions No medications on file (Comment: Please note this report has been produced using speech recognition software and may contain errors related to that system including errors in grammar, punctuation, and spelling, as well as words and phrases that may be inappropriate. If there are any questions or concerns please feel free to contact the dictating provider for clarification.) Bernard Phillips MD (electronically signed) Emergency Medicine Provider Acute Care [facility] Bernard Phillips MD 09/10/23 1436 [facility] 01-26-2023 History of Presen t illness Narrative Speech-Language Pathology Facility/Department: [address] DYSPHAGIA TREATMENT NAME: Tita Keith : 1935 ADMISSION DATE: 01/17/2023 ADMITTING DIAGNOSIS: has New onset type 2 diabetes mellitus (CMS/HCC) (HCC); Hyperosmolar hyperglycemic state (HHS) (HCC); Hyperglycemia; and Severe malnutrition (CMS/HCC) (HCC) on their problem list. No Known Allergies Oxygen Level: O2 Device: None (Room air) Liters of Oxygen: Current Diet Level: Dietary Orders (From admission, onward) Start Ordered 01/23/23722 Adult diet Dysphagia - Minced and Moist; No Drinking Straws Diet effective now Comments: PLEASE PROVIDE PUREE MEAT Question Answer Comment Diet type Dysphagia - Minced and Moist Other restriction(s): No Drinking Straws 01/23/23 0701/20/23 1622 Supplement:Breakfast, Lunch, Dinner; Chocolate Ensure Plus Until discontinued Question Answer Comment Frequency Breakfast Frequency Lunch Frequency Dinner Select supplement: Chocolate Ensure Plus 01/20/23 1621 General Chart Reviewed: Yes Comments: Pt's daughter was at bedside. PPE Worn: surgical mask, gloves Pain: No indication of any pain. S: Pt more alert and sitting up in chair. Pt was cooperative with encouragement. Pt initiated request for use of "toilet room" I have to pee O: Oropharyngeal strengthening to assist with swallowing safety. A: Pt assist with sitting more upright in the chair. Following directions to assist by sitting up and pulling self forward. Assisted by CLAIMS PROCESSOR to push bottom back in chair from upright sitting and so pt would not slide out of chair when sat up. Pt was agreeable to Exercises: Expiratory resistance--blowing through straw; x4 set of 10 each. Pt did not cues to slow rate and 'take a deep breath' Increased effort and airflow noted. Increased functional noted by stronger voice, slight improvement in throat clear, cough overtly sounds stronger. CTAR (hold up to 5 seconds) Chin tuck against resistance. CTAR-4 sets of 3-4 each. Coaching pt to push hard, "I am" Pt is not able to maintain without resistance. Improved effort with progression of task. Pt took drinks of Ensure, "I'm not hungry" but accepted cup to self feed sips with encouragement. Recommended Diet and Intervention Diet Solids Recommendation: Dysphagia Minced and Moist (Dysphagia II) (Puree meats) Liquid Consistency Recommendation: Thin Recommended Form of Meds: Crushed in puree as able Recommendations: Dysphagia treatment Therapeutic Interventions: Patient/Family education, Effortful swallow, Pharyngeal exercises Compensatory Swallowing Strategies Compensatory Swallowing Strategies : Small bites/sips, Swallow 2 times per bite/sip, Upright as possible for all oral intake, Other (comments) (Throat clear and reswallows as able) Treatment/Goals Encounter Problems Encounter Problems (Active) Swallowing Patient will tolerate recommended food and liquid consistencies without clinical signs and symptoms of aspirations (Progressing) Start: 01/18/23 Expected End: 02/02/23 Patient will participate in instrumental assessment of swallowing as appropriate (Completed) Start: 01/18/23 Expected End: 02/02/23 Met: 01/22/23 Patient will complete oropharyngeal strengthening exercises to improve swallow function (Progressing) Start: 01/23/23 Expected End: 02/02/23 Education Education Given: Exercise instructions Education Given To: Patient Education Response: Needs reinforcement P: Continue dysphagia POC. Treatment Plan Requires CLAIMS PROCESSOR Intervention: Yes Frequency/Duration: Frequency of Treatment: 3 days/wk for Duration of Treatment: 2 weeks Therapy Time CLAIMS PROCESSOR Individual Minutes Time In: 1003 Time Out: 1022 Minutes: 19 BRITTNY Mattson 01/26/2023 12:36 PM Report given to Lauren at [facility]. Occupational Therapy Facility/Department: [facility] Occupational Therapy Treatment NAME: Tita Keith : 1935 Date of Service: 01/26/2023 Discharge Recommendations: Subacute/[facility]ci Facility Assessment Performance deficits / Impairments: Decreased functional mobility , Decreased endurance, Decreased ADL status, Decreased strength, Decreased balance, Decreased safe awareness, Decreased cognition Assessment: Pt tolerated session fair. Pt completed bed mobility and seated feeding with Min A. Pt required Max A for STS with FWW, and Mod A with FWW for stand step transfer. Pt is progressing with POC but is still below baseline and is a high fall risk. Pt would benefit from continued OT to improve activity tolerance, balance, and strength for increased indep and safety. Pt is recommended for SNF at D/C REQUIRES OT FOLLOW-UP: Yes Patient Diagnosis(es): The encounter diagnosis was Hyperosmolar hyperglycemic state (HHS) (HCC). has a past medical history of Dementia (HCC), Diabetes mellitus (HCC), Hyperlipidemia, and Hypertension. has a past surgical history that includes Back surgery. Restrictions Restrictions/Precautions Restrictions/Precautions: General Precautions, Fall Risk Required Braces or Orthoses?: No Cognition/Orientation Overall Cognitive Status: Exceptions Cognition Comment: able to give name, unable to give or location Overall Orientation Status: Impaired Subjective Subjective Subjective: Pt supine in bed, agreeable to OT tx General Comments Comments: Per RN ok to see. Pain Assessment Pain Assessment: No/denies pain Objective Feeding Assistance Level: Set-up, Minimal assistance Skilled Clinical Factors: Pt seated in recliner for breakfast. Pt required set up, explanation of all items on tray, and Min A to open containers and five appropriate utensils. Pt required intermittent Min A to complete, due to deficits in problem solving. Pt assisted with ~5 mins of breakfast before nursing home assistant administrator was addressed to finish assisting if needed. Balance Sitting Balance: Stand by assistance Standing Balance: Moderate assistance Standing Balance Time: ~1-2 mins Activity: side steps, static stand at recliner with difficulty sequencing to sit Comment: Pt completed lateral steps to recliner location and static stand at recliner with Mod A and FWW. Pt required constant Mod A for balance, demo difficulty with task initiation and sequencing needed to return to sitting. Pt required ~1 min of heavy VC to return to sitting. Functional Mobility Functional - Mobility Device: Rolling Walker Assist Level: Moderate assistance Functional Mobility Comments: Pt completed lateral steps to HOB to prepare for transfer to recliner. Pt completed with Mod A and FWW, required increased time and VC for sequencing and FWW management. Pt denied dizziness, but demo significant unsteadiness. Bed mobility Supine to Sit: Minimal assistance Sit to Supine: Unable to assess Scooting: Minimal assistance Comment: Pt completed supine to sit with HOB slightly elevated, increased time, and Min A for trunk elevation. Pt required Min A with use of draw pad to scoot hips to proper position at EOB. Pt in recliner post session to eat breakfast, Nurse assistant branch manager aware and stating she will asssit with feeding. Transfers Stand Step Transfers: Moderate assistance Sit to stand: Maximum assistance Stand to sit: Maximum assistance Transfer Comments: Pt completed STS from EOB in lowered position, use of FWW, and Max A to complete.P t required Max VC for BUE placement, poor carryover and still grabbing for FWW. Pt was very slow to rise and required heavy VC for task initiation to return to sitting. Pt denied dizziness. Pt completed stand step transfer from EOB to recliner. Pt completed with Mod A and FWW, increased time and frequent VC for sequencing. Pt denied dizziness no ovetr Lob but demo unsteadiness . Plan Times per Week: 4 visits Current Treatment Recommendations: Strengthening, Balance Training, Functional Mobility Training, Endurance Training, Pain Management, Safety Education & Training, Self-Care / ADL, Positioning, Cognitive Reorientation, Equipment Evaluation, Education, & procurement, Patient/Caregiver Education & Training Plan Comment: cont ot tx per poc Safety Safety Devices in place: Yes Type of devices: All fall risk precautions in place, Left in chair, Call light within reach, Nurse notified, Chair alarm in place, Gait belt, Patient at risk for falls (daughter in room, NA aware of breakfast being set up stating she is going in to assist) Restraints Initially in place: No AM-PAC Score AM-PAC Inpatient Daily Activity Raw Score: 13 ADL Inpatient [facility] G-Code Modifier: CL Goals Encounter Problems Encounter Problems (Active) Balance Patient will tolerate standing for 3 minutes with SBA to improve occupational performance. (Progressing) Start: 01/18/23 Expected End: 01/25/23 Patient will maintain dynamic sitting balance for 6 minutes with supervision in order to demonstrate improved postural control and prepare for out of bed mobility. (Progressing) Start: 01/18/23 Expected End: 01/25/23 Dressing Upper Extremities Patient will complete upper body ADLs and grooming tasks with SBA (Not Addressed) Start: 01/18/23 Expected End: 01/25/23 Dressings Lower Extremities Patient will perform LB ADLs with Min A (Not Addressed) Start: 01/18/23 Expected End: 01/25/23 Mobility Pt will perform functional mobility and transfers with Min A using FWW (Progressing) Start: 01/18/23 Expected End: 01/25/23 Toileting Patient will complete toileting tasks at standard toilet with min assist. (Not Addressed) Start: 01/18/23 Expected End: 01/25/23 Transfers Patient will perform bed mobility with min assist in order to improve independence and prepare for out of bed mobility. (Progressing) Start: 01/18/23 Expected End: 01/25/23 Education Education Given To: Patient, Family (daughter post session) Education Provided: OT Role, Plan of Care, Equipment, ADL Adaptive Strategies, Transfer Training, Energy Conservation, Fall Prevention Strategies Education Method: Demonstration, Verbal, Teach Back Barriers to Learning: Cognition Education Outcome: Verbalized understanding, Demonstrated understanding, Continued education needed Therapy Time Individual Co-treatment Time In 0832 Time Out 0850 Minutes 18 Timed Code Treatment Minutes: 18 Minutes (1 Ther Act) KORI Nguyen Pt is planned for discharge today. Pt is pleasant, was eating breakfast upon RD visit this AM. Pt remains on Minced and Moist diet, no straws, with pureed meats. Pt continues to receive Chocolate Ensure Plus TID which pt stated that he liked and wanted to continue. Ensure Plus High Protein provides 350 kcals, 20g protein per serving. RD reweighed the pt via bed scale which measured the pt at 123.7#, up 13.7# from previously documented weight from 01/17. No new nutrition interventions at this time. Pt's transportation is set up for 15:[address] follow in case pt's discharge is held up again. Malnutrition Assessment and Plan The following was documented by the Dietitian per initial assessment: Malnutrition Assessment Context of Malnutrition: Chronic Illness Chronic Illness - Energy Intake: 75% or less estimated energy requirements for 1 month or longer Chronic Illness - Weight Loss: Unable to assess Chronic Illness - Body Fat Loss: Severe body fat loss Chronic Illness - Body Fat Loss Locations: Orbital, Triceps, Buccal region Chronic Illness - Muscle Mass Loss: Severe muscle mass loss Chronic Illness - Muscle Mass Loss Location: Temples (temporalis), Clavicles (pectoralis & deltoids), Scapula (trapezius), Hand (interosseous), Calf (gastrocnemius), Thigh (quadraceps) Chronic Illness - Fluid Accumulation: No significant fluid accumulation Chronic Illness - Machine Attendant Strength: Not Performed Chronic Illness - Malnutrition Score: 21 Malnutrition Status: Severe malnutrition Medical Nutrition Therapy: Adult diet Dysphagia - Minced and Moist; No Drinking Straws with Pureed meats and Ensure Plus TID Speech-Language Pathology Facility/Department: [facility] [address] DYSPHAGIA TREATMENT NAME: Tita Keith : 1935 ADMISSION DATE: 01/17/2023 ADMITTING DIAGNOSIS: has New onset type 2 diabetes mellitus (CMS/HCC) ([facility]); Hyperosmolar hyperglycemic state (HHS) (HCC); Hyperglycemia; and Severe malnutrition (CMS/HCC) ([facility]) on their problem list. No Known Allergies Oxygen Level: O2 Device: None (Room air) Liters of Oxygen: Current Diet Level: Dietary Orders (From admission, onward) Start Ordered 01/23/23 0723 Adult diet Dysphagia - Minced and Moist; No Drinking Straws Diet effective now Comments: PLEASE PROVIDE PUREE MEAT Question Answer Comment Diet type Dysphagia - Minced and Moist Other restriction(s): No Drinking Straws 01/23/23 0722 01/20/23 1622 Supplement:Breakfast, Lunch, Dinner; Chocolate Ensure Plus Until discontinued Question Answer Comment Frequency Breakfast Frequency Lunch Frequency Dinner Select supplement: Chocolate Ensure Plus 01/20/23 1621 General Chart Reviewed: Yes PPE Worn: surgical mask, gloves Behavior/Cognition: Alert, Cooperative Respiratory Status: Room air Follows Directions: Simple Current Diet : Dysphagia Minced and Moist (Dysphagia II) Current Liquid Diet : Thin Dentition: Adequate Patient Positioning: Upright in bed Baseline Vocal Quality: Wet Volitional Cough: Weak, Wet Consistencies Administered: Thin - cup Pain: RN managing patient pain S: Alert and reclined in bed. CLAIMS PROCESSOR attempted to reposition pt upright for the duration of tx session. O: Pharyngeal exercises continuation; education on swallowing strategies A: Exercises continued : Expiratory resistance via forced exhale through a straw. Pt required visual/verbal cue to inhale through nose, exhale ("blow") through straw. Continues to present with weak blowing, tolerating 2-3 coordinated breathing at a time. Chin tuck again resistance x10 with poor retraction noted, unable to squeeze towel resistance independently, required CLAIMS PROCESSOR to hold towel and break was provided between 5 trials. Completed 10 effortful swallows with single cup thin liquid sips. Pt unable to completed dry swallow at this time. Recommended Diet and Intervention Diet Solids Recommendation: Dysphagia Minced and Moist (Dysphagia II) Liquid Consistency Recommendation: Thin Therapeutic Interventions: Patient/Family education, Effortful swallow, Pharyngeal exercises Compensatory Swallowing Strategies Compensatory Swallowing Strategies : Assist feed, Upright as possible for all oral intake, No straws, Small bites/sips, Eat/Feed slowly Treatment/Goals Encounter Problems Encounter Problems (Active) Swallowing Patient will tolerate recommended food and liquid consistencies without clinical signs and symptoms of aspirations (Progressing) Start: 01/18/23 Expected End: 02/02/23 Patient will participate in instrumental assessment of swallowing as appropriate (Completed) Start: 01/18/23 Expected End: 02/02/23 Met: 01/22/23 Patient will complete oropharyngeal strengthening exercises to improve swallow function (Progressing) Start: 01/23/23 Expected End: 02/02/23 Education Education Given: diet recommendations, role of therapy, swallowing strategies Education Given To: Patient Education Response: Needs reinforcement P: Continue with pharyngeal exercises & diet tolerance. Assess for potential upgrade as tolerated. Treatment Plan Requires CLAIMS PROCESSOR Intervention: Yes Frequency/Duration: Frequency of Treatment: 3 days/wk for Duration of Treatment: 2 weeks Therapy Time CLAIMS PROCESSOR Individual Minutes Time In: 0950 Time Out: 1005 Minutes: 15 Janet Lauren CCC-CLAIMS PROCESSOR 01/25/2023 10:12 AM Department of Family Medicine Daily Progress Note Subjective Chief Complaint (required for billing): Hyperosmolar hyperglycemic state (HHS) (HCC) Pt doing ok this am eating breakfast no complaints ROS: Review of Systems Objective BP 101/61 (BP Location: Left arm, Patient Position: Lying) Pulse 85 Temp 36.4 C (97.6 F) (Temporal) Resp 14 Ht 6' 2" (1.88 m) Wt 123 lb 11.2 oz (56.1 kg) SpO2 97% BMI 15.88 kg/m Physical Exam Pt is alert and oriented x 2 Heent wnl Heart regular Lungs ctab Abd benign Ext no edema Labs Notable Labs: Current Medications Medication orders reviewed, see MAR Assessment/Plan Principal Problem: Hyperosmolar hyperglycemic state (HHS) (HCC) Active Problems: Hyperglycemia Severe malnutrition (CMS/HCC) ([facility]) DM 2 with hyperglycemia Dysphagia HTN HPL Plan Waiting on placement FEN:Adult diet Dysphagia - Minced and Moist; No Drinking Straws GI prophylaxis: PPI ordered DVT prophylaxis: lovenox # Anticipated Discharge - Date - 1 d - Location - Skilled Facility - Pending the following - KAYLEIGH STOUT DO 01/25/23 7:27 PM Speech-Language Pathology Facility/Department: [address] DYSPHAGIA TREATMENT NAME: Tita Keith : 1935 ADMISSION DATE: 01/17/2023 ADMITTING DIAGNOSIS: has New onset type 2 diabetes mellitus (CMS/HCC) ([facility]); Hyperosmolar hyperglycemic state (HHS) ([facility]); Hyperglycemia; and Severe malnutrition (CMS/HCC) ([facility]) on their problem list. No Known Allergies Oxygen Level: O2 Device: None (Room air) Liters of Oxygen: Current Diet Level: Dietary Orders (From admission, onward) Start Ordered 01/23/23 0723 Adult diet Dysphagia - Minced and Moist; No Drinking Straws Diet effective now Comments: PLEASE PROVIDE PUREE MEAT Question Answer Comment Diet type Dysphagia - Minced and Moist Other restriction(s): No Drinking Straws 01/23/23 0722 01/20/23 1622 Supplement:Breakfast, Lunch, Dinner; Chocolate Ensure Plus Until discontinued Question Answer Comment Frequency Breakfast Frequency Lunch Frequency Dinner Select supplement: Chocolate Ensure Plus 01/20/23 1621 General Chart Reviewed: Yes PPE Worn: surgical mask, gloves Pain: Pt without complaints of pain. S: "I feel really tired". O: Encourage/training in swallowing strategies. Initiate oropharyngeal strengthening. A: Pt was slouched down in the bed. With assist, repositioned pt more upright in bed. Pt will feed self, however needs set up. He does eat at a slow rate. Provided occasional cues to reswallow. Pt on occasion will throat clear. Exercises initiated. Expiratory resistance via Forced exhale through a straw. Weak blowing. He was able to improve airflow with encouragement. He could tolerate 2-3 at a time, completed 3 rounds. ("I need to rest"). Chin tuck again resistance and forehead push to engage pharyngeal constriction. Head pushes side to side as well. Pt able to complete 2-3 at a time to complete task. Recommended Diet and Intervention Diet Solids Recommendation: Dysphagia Minced and Moist (Dysphagia II) (Puree meats) Liquid Consistency Recommendation: Thin Recommended Form of Meds: Crushed in puree as able Recommendations: Dysphagia treatment Therapeutic Interventions: Therapeutic PO trials with CLAIMS PROCESSOR Compensatory Swallowing Strategies Compensatory Swallowing Strategies : Small bites/sips, Swallow 2 times per bite/sip, Upright as possible for all oral intake, Other (comments) (Throat clear and reswallows as able) Treatment/Goals Encounter Problems Encounter Problems (Active) Swallowing Patient will tolerate recommended food and liquid consistencies without clinical signs and symptoms of aspirations (Progressing) Start: 01/18/23 Expected End: 02/02/23 Patient will participate in instrumental assessment of swallowing as appropriate (Completed) Start: 01/18/23 Expected End: 02/02/23 Met: 01/22/23 Patient will complete oropharyngeal strengthening exercises to improve swallow function Start: 01/23/23 Expected End: 02/02/23 Education Education Given: diet recommendations, instruction in exercises and rationale. Education Response: Needs reinforcement P: Treatment Plan Requires CLAIMS PROCESSOR Intervention: Yes Frequency/Duration: Frequency of Treatment: 3 days/wk for Duration of Treatment: 2 weeks Therapy Time CLAIMS PROCESSOR Individual Minutes Time In: 1341 Time Out: 1401 Minutes: 20 BRITTNY Mattson 01/24/2023 2:25 PM Department of Family Medicine Daily Progress Note Subjective Chief Complaint (required for billing): Hyperosmolar hyperglycemic state (HHS) (HCC) Pt doing ok today still waiting on auth ROS: Review of Systems Objective BP 127/77 (BP Location: Left arm, Patient Position: Lying) Pulse 80 Temp 36.4 C (97.6 F) (Temporal) Resp 16 Ht 6' 2" (1.88 m) Wt 110 lb 14.3 oz (50.3 kg) SpO2 96% BMI 14.24 kg/m Physical Exam Pt is alert and oriented x 2 Heent wnl Heart regular Lungs ctab Abd benign Ext no edema Lab Notable Labs: Current Medications Medication orders reviewed, see MAR Assessment/Plan Principal Problem: Hyperosmolar hyperglycemic state (HHS) (HCC) Active Problems: Hyperglycemia Severe malnutrition (CMS/HCC) (HCC) DM 2 with hyperglycemia Dysphagia HTN HPL Plan Waiting on auth for snf FEN:Adult diet Dysphagia - Minced and Moist; No Drinking Straws GI prophylaxis: NA DVT prophylaxis: lovenox # Anticipated Discharge - Date - 1 d - Location - Skilled Facility - Pending the following - auth KAYLEIGH STOUT DO 01/24/23 8:43 PM Physical Therapy Facility/Department: [facility] Physical Therapy Daily Treatment Note NAME: Tita Keith : 1935 Date of Service: 01/23/2023 Discharge Recommendations: Subacute/[facility]ci Facility PT Equipment Recommendations Equipment Needed: (TBD at next level of care) Other: TBD at next level of care Assessment Assessment: Pt continues to demonstrate decreased functional mobility with attempts to initate activity but then requires increased assist to complete. Decreased safety noted with transfers but does demonstrate awareness of surroundings when mobilizing. Pt is not at a safe functional level and will benefit from further skilled therapy to improve function and strength/safety Barriers to Learning: Cognition Requires PT Follow-Up: Yes Patient Diagnosis(es): The encounter diagnosis was Hyperosmolar hyperglycemic state (HHS) (HCC). has a past medical history of Dementia (HCC), Diabetes mellitus (HCC), Hyperlipidemia, and Hypertension. has a past surgical history that includes Back surgery. Restrictions Restrictions/Precautions Restrictions/Precautions: General Precautions, Fall Risk Required Braces or Orthoses?: No Subjective General Chart Reviewed: Yes Patient Assessed for Rehabilitation Services: Yes Additional Pertinent Hx: Pt admitted 01/17 with confusion and generalized weakness. Pt was found to have HHS. Family / Caregiver Present: No Follows Commands: Within Functional Limits General Comment Comments: Pt attempting to take clothing off upon entry and even with initiation of activity Subjective Subjective: Pt disoriented but agreeable to walk. Pain Assessment Pain Assessment: No/denies pain Cognition/Orientation Arousal/Alertness: Delayed responses to stimuli, Appropriate responses to stimuli Following Commands: Follows one step commands with increased time, Follows one step commands with repetition Attention Span: Attends with cues to redirect Memory: Decreased recall of recent events, Decreased short term memory, Decreased recall of biographical Information Safety Judgement: Decreased awareness of need for safety, Decreased awareness of need for assistance Problem Solving: Assistance required to identify errors made, Assistance required to correct errors made, Assistance required to implement solutions, Assistance required to generate solutions Insights: Decreased awareness of deficits Initiation: Requires cues for some Sequencing: Requires cues for some Orientation Level: Oriented to person, Disoriented to place, Disoriented to time, Disoriented to situation Objective Bed mobility Supine to Sit: Maximum assistance Sit to Supine: Minimal assistance Scooting: Moderate assistance Comment: Pt able to initiate transition to sitting with manuevering LE's and hips to EOB but then unable to initiate trunk raise. Provided hand to encourage rotation and elevation with MAX A needed to start and then decreased as pt becomes more upright with ability to maintain sitting balance. Pt required time to initiate transition to supine but when started, pt has tendency to lie across bed and then requires time to slowly manuever self to middle of bed with assist to manuever trunk. Transfers Sit to Stand: Moderate Assistance Stand to sit: Minimal Assistance Comment: Pt requires repeated cues for hand placement with each attempt with walker placed out of reach to encourage proper technique and MOD A to balance pt during transition with tendency to post with B LE's until fully elevated. Pt demonstrates decreased hand placement when sitting with MIN A for safety with pt assisting to control eccentrically. Ambulation 1 Surface 1: Level tile Device 1: Rolling walker Assistance 1: Minimum assistance Quality of Gait Comment 1: Pt walks with a slow reciprical pattern with occassional pauses. Pt aware of surroundings pointing out obstacles for therapist to avoid. strides are short with a slightly rounded posture. Distance (ft) 1: 100' x 1 and 50' x 1 Comments 1: Pt limited second walk secondary to feeling tired and weak with increased flexing of knees noted. Exercises Comments: Pt declined attempts to participate secondary to too tired. Plan # of visits: 3 visits Current Treatment Recommendations: (Cont ther ex and functional training) Safety Safety Devices Type of Devices: All fall risk precatuions in place, Call light within reach, Gait belt, Patient at risk for falls, Left in bed, Nurse notified, Bed alarm in place AM-PAC Score AM-PAC Inpatient Mobility Raw Score: 10 Mobility Inpatient CMS G-Code Modifier: CL Goals Encounter Problems Encounter Problems (Active) Exercise Patient will complete lower extremity exercises for 1-2 sets / 5-10 reps in order to improve strength and activity tolerance for mobility. (Not Addressed) Start: 01/18/23 Expected End: 01/25/23 Mobility Patient will ambulate 50 feet with min assist and rolling walker in order to improve safety and independence with mobility. (Progressing) Start: 01/18/23 Expected End: 01/25/23 Transfers Patient will perform bed mobility with mod assist in order to improve independence and prepare for out of bed mobility. (Progressing) Start: 01/18/23 Expected End: 01/25/23 Patient will complete functional transfer with rolling walker with mod A in order to prepare for ambulation. (Progressing) Start: 01/18/23 Expected End: 01/25/23 Education Education Given To: Patient Education Provided: Goals, PT Role, Plan of Care, Transfer Training, General Safety, Equipment, Gait Training, Functional Mobility Training Education Method: Verbal, Teach Back, Demonstration Barriers to Learning: Cognition Education Outcome: Verbalized understanding, Demonstrated understanding, Continued education needed Therapy Time Individual Co-treatment Time In 1130 Time Out 1149 Minutes 19 Timed Code Treatment Minutes: 15 Minutes (gait) Juliette Aguillon PTA Occupational Therapy Facility/Department: [facility] Occupational Therapy Treatment NAME: Tita Keith : 1935 Date of Service: 01/23/2023 Discharge Recommendations: Subacute/[facility] Facility Assessment Performance deficits / Impairments: Decreased functional mobility , Decreased endurance, Decreased ADL status, Decreased strength, Decreased balance, Decreased safe awareness, Decreased cognition Assessment: Pt is making slow progress with OT for ADLs and transfers with pt overall at a mod to max A level and limited from cognition. Pt has difficulty following one step commands during session with ADLs. Pt would benefit from ongoing skilled OT tx to max indep with ADLs and transfers. OT is recommending SNF level therapy at D/C. REQUIRES OT FOLLOW-UP: Yes Patient Diagnosis(es): The encounter diagnosis was Hyperosmolar hyperglycemic state (HHS) (HCC). has a past medical history of Dementia (HCC), Diabetes mellitus (HCC), Hyperlipidemia, and Hypertension. has a past surgical history that includes Back surgery. Restrictions Restrictions/Precautions Restrictions/Precautions: General Precautions, Fall Risk Required Braces or Orthoses?: No Vision/Hearing Cognition/Orientation Overall Orientation Status: Impaired Orientation Level: Oriented to person, Disoriented to place, Disoriented to time, Disoriented to situation Subjective Subjective Subjective: Pt supine in bed and agreeable to OT tx, confusion noted. General Comments Comments: Per RN ok to see. Pain Assessment Pain Assessment: No/denies pain Objective Grooming/Oral Hygiene Assistance Level: Minimal assistance, Moderate assistance Skilled Clinical Factors: seated with setup with hand over hand assist and constant cues UE Dressing Assistance Level: Moderate assistance Skilled Clinical Factors: for donning gown with extended time for processing and following one step commands LE Dressing Assistance Level: Maximum assistance Skilled Clinical Factors: Pt training for ADLs while seated with intermittent standing with pt having difficulty following one step commands and assist with initiation and to pull up over hips Balance Sitting Balance: Minimal assistance Standing Balance: Moderate assistance Standing Balance Time: Pt trixie 2 mins of standign with mod A to maintain bal during ADLS and taking side steps at EOB, denies dizziness, pt unsteady Functional Mobility Functional - Mobility Device: Rolling Walker Activity: Other Assist Level: Moderate assistance Functional Mobility Comments: Pt training for mob at EOB with side steps with mod A and therapist needing to guide walker Bed mobility Supine to Sit: Maximum assistance Sit to Supine: Maximum assistance Scooting: Maximal assistance Comment: Pt training for bed mob with HOB elevated and cues to use bed rail with extended time and pt having diffculty following one step commands with pt needing assist with trunk and BLE, denies dizziness Transfers Sit to stand: Maximum assistance Stand to sit: Moderate assistance Transfer Comments: cues for hand placement to fww with poor teachback by pt with pt pulling up on walker, denies dizziness Plan Times per Week: 5 visits Current Treatment Recommendations: Strengthening, Balance Training, Functional Mobility Training, Endurance Training, Pain Management, Safety Education & Training, Self-Care / ADL, Positioning, Cognitive Reorientation, Equipment Evaluation, Education, & procurement, Patient/Caregiver Education & Training Plan Comment: cont ot tx per poc Safety Safety Devices in place: Yes Type of devices: All fall risk precautions in place, Call light within reach, Gait belt, Patient at risk for falls, Nurse notified, Left in bed, Bed alarm in place Outcomes Score AM-PAC Score AM-PAC Inpatient Daily Activity Raw Score: 13 ADL Inpatient [facility] G-Code Modifier: CL Goals Encounter Problems Encounter Problems (Active) Balance Patient will tolerate standing for 3 minutes with SBA to improve occupational performance. (Progressing) Start: 01/18/23 Expected End: 01/25/23 Patient will maintain dynamic sitting balance for 6 minutes with supervision in order to demonstrate improved postural control and prepare for out of bed mobility. (Progressing) Start: 01/18/23 Expected End: 01/25/23 Dressing Upper Extremities Patient will complete upper body ADLs and grooming tasks with SBA (Slowly Progressing) Start: 01/18/23 Expected End: 01/25/23 Dressings Lower Extremities Patient will perform LB ADLs with Min A (Slowly Progressing) Start: 01/18/23 Expected End: 01/25/23 Mobility Pt will perform functional mobility and transfers with Min A using FWW (Progressing) Start: 01/18/23 Expected End: 01/25/23 Toileting Patient will complete toileting tasks at standard toilet with min assist. (Not Addressed) Start: 01/18/23 Expected End: 01/25/23 Transfers Patient will perform bed mobility with min assist in order to improve independence and prepare for out of bed mobility. (Slowly Progressing) Start: 01/18/23 Expected End: 01/25/23 Education Education Given To: Patient Education Provided: ADL Adaptive Strategies, Transfer Training, Fall Prevention Strategies Education Method: Demonstration, Verbal Barriers to Learning: Cognition Education Outcome: Continued education needed Therapy Time Individual Co-treatment Time In 957 Time Out 1021 Minutes 23 Timed Code Treatment Minutes: 23 Minutes (2 ADL) CARMINA Christianson Speech-Language Pathology Facility/Department: [address] DYSPHAGIA TREATMENT NAME: Tita Keith : 1935 ADMISSION DATE: 01/17/2023 ADMITTING DIAGNOSIS: has New onset type 2 diabetes mellitus (CMS/HCC) (HCC); Hyperosmolar hyperglycemic state (HHS) (HCC); Hyperglycemia; and Severe malnutrition (CMS/HCC) (HCC) on their problem list. No Known Allergies Oxygen Level: O2 Device: None (Room air) Liters of Oxygen: Current Diet Level: Dietary Orders (From admission, onward) Start Ordered 01/23/23 07 Adult diet Dysphagia - Minced and Moist; No Drinking Straws Diet effective now Comments: PLEASE PROVIDE PUREE MEAT Question Answer Comment Diet type Dysphagia - Minced and Moist Other restriction(s): No Drinking Straws 01/23/23 0722 01/20/23 1622 Supplement:Breakfast, Lunch, Dinner; Chocolate Ensure Plus Until discontinued Question Answer Comment Frequency Breakfast Frequency Lunch Frequency Dinner Select supplement: Chocolate Ensure Plus 01/20/23 1621 Pain: no current complaints. S: Pt was alert, daughter at bedside, RN passing medications. O: Education re: MBS, aspiration risk, desire for po and exercises trial. A: Pt demonstrated pharyngeal weakness resulting in penetration of residuals. Pt instructed to trial effortful swallow with some of swallows during meal. Very slow rate of presentation as pt does feed himself. This is most appropriate for pt in order to reswallow to assist with reducing residuals. +occasional throat clearing noted. He does prefer drinks of solids and taking Ensure well. Cued additional cough. Daughter did report decline in function with recent pneumonia. Consistent with falls and debility. Pt does answer and respond to questions. He is appropriate for trial strengthening initiation. Recommended Diet and Intervention Diet Solids Recommendation: Dysphagia Minced and Moist (Dysphagia II) (Puree meats) Liquid Consistency Recommendation: Thin Recommended Form of Meds: Crushed in puree as able Recommendations: Dysphagia treatment Therapeutic Interventions: Therapeutic PO trials with CLAIMS PROCESSOR Compensatory Swallowing Strategies Compensatory Swallowing Strategies : Small bites/sips, Swallow 2 times per bite/sip, Upright as possible for all oral intake, Other (comments) (Throat clear and reswallows as able) Treatment/Goals Encounter Problems Encounter Problems (Active) Swallowing Patient will tolerate recommended food and liquid consistencies without clinical signs and symptoms of aspirations (Progressing) Start: 01/18/23 Expected End: 02/02/23 Patient will participate in instrumental assessment of swallowing as appropriate (Completed) Start: 01/18/23 Expected End: 02/02/23 Met: 01/22/23 Patient will complete oropharyngeal strengthening exercises to improve swallow function Start: 01/23/23 Expected End: 02/02/23 Education Education Given: diet recommendations Education Given To: Patient, Family Family member name and relationship: Daughter Education Response: Needs reinforcement P: Initiate strengthening with dysphagia POC. (Tongue base/pharyngeal constriction, respiratory resistance for improved cough) Continue most lenient palliative diet of minced and moist with puree meats and single cup drinks of thin liquids. Multiple reswallows, slow rate, alternate textures to assist with clearing. Treatment Plan Requires CLAIMS PROCESSOR Intervention: Yes Frequency/Duration: Frequency of Treatment: 3 days/wk for Duration of Treatment: 2 weeks Therapy Time CLAIMS PROCESSOR Individual Minutes Time In: 824 Time Out: 0845 Minutes: 20 BRITTNY Mattson 01/23/2023 9:40 AM Department of Family Medicine Daily Progress Note Subjective Chief Complaint (required for billing): Hyperosmolar hyperglycemic state (HHS) ([facility]) Pt doing ok today daughter at the bedside hopefully to get auth today ROS: Review of Systems Objective BP (!) 141/79 (BP Location: Right arm, Patient Position: Sitting) Pulse 92 Temp 36.9 C (98.4 F) (Temporal) Resp 18 Ht 6' 2" (1.88 m) Wt 110 lb 14.3 oz (50.3 kg) SpO2 99% BMI 14.24 kg/m Physical Exam Pt is alert and oriented x 2 Heent wnl Heart regular Lungs ctab Abd benign Ext no edema Labs Notable Labs: Current Medications Medication orders reviewed, see MAR Assessment/Plan Principal Problem: Hyperosmolar hyperglycemic state (HHS) (HCC) Active Problems: Hyperglycemia Severe malnutrition (CMS/HCC) (HCC) DM 2 with hyperglycemia Dysphagia HTN HPL Plan Waiting on auth for snf FEN:Adult diet Dysphagia - Minced and Moist; No Drinking Straws GI prophylaxis: PPI ordered DVT prophylaxis: lovenox # Anticipated Discharge - Date - 1-2 d - Location - Skilled Facility - Pending the following - chantal STOUT DO 01/23/23 8:03 PM Speech-Language Pathology This CLAIMS PROCESSOR was able to reach pt's daughter to discuss MBS. She verbalized understanding of aspiration risk (food getting into airway). She was ok with current diet, assistance with eating and changing his meats to puree. He is not able to chew even the ground/chopped meats. Recommend continue po with assist and strategies as previously stated in MBS note. Kirsty Ray MA, [facility]/CLAIMS PROCESSOR Speech Language Pathologist Department of Family Medicine Daily Progress Note Subjective Chief Complaint (required for billing): Hyperosmolar hyperglycemic state (HHS) (HCC) Pt sleeping this am no new issues overnight ROS: Review of Systems Objective BP 121/63 Pulse 86 Temp 36.5 C (97.7 F) (Temporal) Resp 16 Ht 6' 2" (1.88 m) Wt 110 lb 14.3 oz (50.3 kg) SpO2 94% BMI 14.24 kg/m Physical Exam Pt is alert and oriented x 2 Heent wnl Heart regular Lungs ctab Abd benign Ext no edema Labs Notable Labs: Current Medications Medication orders reviewed, see MAR Assessment/Plan Principal Problem: Hyperosmolar hyperglycemic state (HHS) (HCC) Active Problems: Hyperglycemia Severe malnutrition (CMS/HCC) (HCC) DM 2 with hyperglycemia Dysphagia HTN HPL Plan Waiting on auth for snf I did speak with speech and she feels that e is still aspiration risk with current diet but not a candidate for a peg tube daughter is aware of this and is ok with current diet she understands the risk of aspiration FEN:Adult diet Dysphagia - Minced and Moist; No Drinking Straws GI prophylaxis: NA DVT prophylaxis: lovenox # Anticipated Discharge - Date - 1 d - Location - Skilled Facility - Pending the following - auth KAYLEIGH STOUT DO 01/22/23 9:54 PM Occupational Therapy Facility/Department: [facility] Occupational Therapy Treatment NAME: Tita Keith : 1935 Date of Service: 01/21/2023 Discharge Recommendations: Subacute/ correction facility Assessment Performance deficits / Impairments: Decreased functional mobility , Decreased endurance, Decreased ADL status, Decreased strength, Decreased balance, Decreased safe awareness, Decreased cognition Assessment: Pt in bed upon arrival with daughter and son in room. Pt agreeable for OT tx. This session was focused on bed mobility, sitting balance, STS, standing balance and ADL tasks. Pt required max assist for bed mobility, STS to elevate and steady. Pt required mod assist for throughoness of ADL's. Pt is limited by cognitive deficits, generalized weakness, decreased activity tolerance, heavy retro-lean, slow to initate. Pt would continue to benefit from skilled OT therapy services to adapt to deficits, decrease caregiver burden and increase health wellness before pt's date of discharge. Rec SNF upon d/c. Prognosis: Fair Exam: AM-PAC REQUIRES OT FOLLOW-UP: Yes Patient Diagnosis(es): The encounter diagnosis was Hyperosmolar hyperglycemic state (HHS) (HCC). has a past medical history of Dementia (HCC), Diabetes mellitus (HCC), Hyperlipidemia, and Hypertension. has a past surgical history that includes Back surgery. Restrictions Restrictions/Precautions Restrictions/Precautions: General Precautions, Fall Risk Required Braces or Orthoses?: No Vision/Hearing Cognition/Orientation Overall Cognitive Status: Exceptions Arousal/Alertness: Delayed responses to stimuli Following Commands: Follows one step commands with increased time, Follows one step commands with repetition Attention Span: Attends with cues to redirect Memory: Decreased recall of recent events, Decreased short term memory, Decreased recall of biographical Information Safety Judgement: Decreased awareness of need for safety, Decreased awareness of need for assistance Problem Solving: Assistance required to identify errors made, Assistance required to correct errors made Insights: Decreased awareness of deficits Initiation: Requires cues for some Sequencing: Requires cues for some Overall Orientation Status: Impaired Orientation Level: Oriented to person Subjective Subjective Subjective: Pt in bed upon arrival, agreeable to OT tx with v/c's for encouragement General Comments Comments: Per RN ok to see. Objective Grooming/Oral Hygiene Assistance Level: Minimal assistance Skilled Clinical Factors: Pt completed oral hygiene task with min assist for throughoness d/t poor FM coordination. For hair hygiene pt able to initate with min assist for thoughoness with comb. Balance Standing Balance: Moderate assistance Standing Balance Time: ~1 min Activity: static standing balance with fww Comment: Pt completed static standing balance with mod assist to steady d/t heavy retro-lean and v/c's for fww mgmnt. Bed mobility Rolling to Left: Maximum assistance Supine to Sit: Maximum assistance Sit to Supine: Maximum assistance Scooting: Maximal assistance Comment: Pt required max assist for all aspects of bed mobility this date. Pt required max assist for Lying <> sitting for trunk and LB mgmnt with extended time to process commands. Pt required increased assist to scoot hips to EOB with use of alisha pad and noted retro-lean from poor core. Pt required max assist after therapy session to elevate BL LE's and for alignment in bed. Transfers Sit to stand: Maximum assistance Stand to sit: Moderate assistance Transfer Comments: Pt completed x2 STS with max assist to elevate and steady d/t increased fatigue and heavy retro-lean, v/c's for proper body mechancis and use of fww. Pt required moderate assist to controll descent and v/c's for sequencing of steps. Plan Times per Week: 6 visits Current Treatment Recommendations: Strengthening, Balance Training, Functional Mobility Training, Endurance Training, Pain Management, Safety Education & Training, Self-Care / ADL, Positioning, Cognitive Reorientation, Equipment Evaluation, Education, & procurement, Patient/Caregiver Education & Training Plan Comment: POC and goals established in collaboration with pt. Safety Safety Devices in place: Yes Type of devices: All fall risk precautions in place, Left in bed, Call light within reach, Nurse notified, Gait belt, Patient at risk for falls, Bed alarm in place AM-PAC Score AM-PAC Inpatient Daily Activity Raw Score: 12 ADL Inpatient CMS G-Code Modifier: CL Goals Encounter Problems Encounter Problems (Active) Balance Patient will tolerate standing for 3 minutes with SBA to improve occupational performance. (Slowly Progressing) Start: 01/18/23 Expected End: 01/25/23 Patient will maintain dynamic sitting balance for 6 minutes with supervision in order to demonstrate improved postural control and prepare for out of bed mobility. (Not Addressed) Start: 01/18/23 Expected End: 01/25/23 Dressing Upper Extremities Patient will complete upper body ADLs and grooming tasks with SBA (Slowly Progressing) Start: 01/18/23 Expected End: 01/25/23 Dressings Lower Extremities Patient will perform LB ADLs with Min A (Not Addressed) Start: 01/18/23 Expected End: 01/25/23 Mobility Pt will perform functional mobility and transfers with Min A using FWW (Slowly Progressing) Start: 01/18/23 Expected End: 01/25/23 Toileting Patient will complete toileting tasks at standard toilet with min assist. (Not Addressed) Start: 01/18/23 Expected End: 01/25/23 Transfers Patient will perform bed mobility with min assist in order to improve independence and prepare for out of bed mobility. (Slowly Progressing) Start: 01/18/23 Expected End: 01/25/23 Education Education Given To: Patient, Family Education Provided: OT Role, Plan of Care, Equipment, Transfer Training, ADL Adaptive Strategies, Fall Prevention Strategies Education Method: Verbal Barriers to Learning: Cognition Education Outcome: Continued education needed, Verbalized understanding Therapy Time Individual Co-treatment Time In 1308 Time Out 1338 Minutes 30 Timed Code Treatment Minutes: 30 Minutes (1 ADL, 1 THER ACT) RANDALL Marinelli Department of Family Medicine Daily Progress Note Subjective Chief Complaint (required for billing): Hyperosmolar hyperglycemic state (HHS) (HCC) Pt doing ok this am no new issues. ROS: Review of Systems Objective BP 129/75 (BP Location: Left arm, Patient Position: Lying) Pulse 81 Temp 36.2 C (97.2 F) (Temporal) Resp 16 Ht 6' 2" (1.88 m) Wt 110 lb 14.3 oz (50.3 kg) SpO2 98% BMI 14.24 kg/m Physical Exam Pt is alert and oriented x 2 Heent wnl Heart regular Lungs ctab Abd benign Ext no edema Labs Notable Labs: Current Medications Medication orders reviewed, see MAR Assessment/Plan Principal Problem: Hyperosmolar hyperglycemic state (HHS) (HCC) Active Problems: Hyperglycemia Severe malnutrition (CMS/HCC) (HCC) DM 2 with hyperglycemia Dysphagia HTN HPL Plan MBS on Sunday Plan is for snf placement FEN:Adult diet Dysphagia - Minced and Moist; No Drinking Straws GI prophylaxis: NA DVT prophylaxis: lovenox # Anticipated Discharge - Date - 1-2 d - Location - Skilled Facility - Pending the following - auth KAYLEIGH STOUT DO 01/21/23 7:58 PM Physical Therapy Facility/Department: [facility] Physical Therapy Daily Treatment Note NAME: Tita Keith : 1935 Date of Service: 01/21/2023 Discharge Recommendations: Subacute/[facility] Facility PT Equipment Recommendations Equipment Needed: (TBD at next level of care) Other: TBD at next level of care Assessment Assessment: Pt demonstrated improvement in functional mobility with less assistance needed to complete functional tasks. Pt still requires assist for safety and balance with increased tolerance for gait. Pt still remains a safety risk for falls and will continue to benefit from further skilled therapy to improve strength and functional independence. Patient Diagnosis(es): The encounter diagnosis was Hyperosmolar hyperglycemic state (HHS) (HCC). has a past medical history of Dementia (HCC), Diabetes mellitus (HCC), Hyperlipidemia, and Hypertension. has a past surgical history that includes Back surgery. Restrictions Restrictions/Precautions Restrictions/Precautions: General Precautions, Fall Risk Required Braces or Orthoses?: No Subjective General Chart Reviewed: Yes Patient Assessed for Rehabilitation Services: Yes Additional Pertinent Hx: Pt admitted 01/17 with confusion and generalized weakness. Pt was found to have HHS. Family / Caregiver Present: No Follows Commands: Within Functional Limits Subjective Subjective: Pt pleasant and agreeable to therapy session. Pain Assessment Pain Assessment: No/denies pain Cognition/Orientation Arousal/Alertness: Delayed responses to stimuli Following Commands: Follows one step commands with increased time, Follows one step commands with repetition Attention Span: Attends with cues to redirect Safety Judgement: Decreased awareness of need for safety, Decreased awareness of need for assistance Problem Solving: Assistance required to identify errors made, Assistance required to correct errors made Insights: Decreased awareness of deficits Initiation: Requires cues for some Sequencing: Requires cues for some Orientation Level: Oriented to person Objective Bed mobility Supine to Sit: Minimal assistance, Moderate assistance Sit to Supine: Stand by assistance Comment: Pt initiate task of manuevering to sitting with HOB slightly elevated with pt able to manuever Le's to EOB and initiate trunk raise but then required assist to support trunk and aid with scooting to EOB to find COB. Pt rquired cueing to lean anteriorly and to place feet on floor. Once balance found, pt able to maintain. Pt demonstrated ability to return to supine with SBA with time given to problem solve activity and slow transition to complete. Pt aligned self in middle of bed with usage of edrails and bridging. Transfers Sit to Stand: Moderate Assistance Stand to sit: Minimal Assistance Comment: Pt required repeated cueing for proper hand placement with first attempt to stand with pt placing one hand on walker andone on bed and therapist bracing walker as pt stood with MOD support secondary to posterior lean during transiion. Second attempt pt placed B hands on bed and required assist to support during transition with less posterior lean but a slight twisting movement. Once standing, pt required light MIN to SBA for safety. Pt demonstrates eccentric control when sitting but reqired cueing to fully align self with FWW prior to attempting and lacks proper hand placement. Ambulation 1 Surface 1: Level tile Device 1: Rolling walker Assistance 1: Minimum assistance Quality of Gait Comment 1: Pt initially performed steppping in place with ability to clear feet and maintain stance. Progressed to walking with a slow step thru/reciprical pattern with pt demonstrating fair ability to avoid objects in his path without assist. Posture is slightly flexed. Distance (ft) 1: 40' x 1 and 100' x 2 Plan # of visits: 4 visits Current Treatment Recommendations: (Cont ther ex and functional training) Safety Safety Devices Type of Devices: All fall risk precatuions in place, Call light within reach, Gait belt, Patient at risk for falls, Left in bed, Nurse notified, Bed alarm in place AM-PAC Score AM-PAC Inpatient Mobility Raw Score: 10 Mobility Inpatient [facility] G-Code Modifier: CL Goals Encounter Problems Encounter Problems (Active) Exercise Patient will complete lower extremity exercises for 1-2 sets / 5-10 reps in order to improve strength and activity tolerance for mobility. (Not Addressed) Start: 01/18/23 Expected End: 01/25/23 Mobility Patient will ambulate 50 feet with min assist and rolling walker in order to improve safety and independence with mobility. (Progressing) Start: 01/18/23 Expected End: 01/25/23 Transfers Patient will perform bed mobility with mod assist in order to improve independence and prepare for out of bed mobility. (Progressing) Start: 01/18/23 Expected End: 01/25/23 Patient will complete functional transfer with rolling walker with mod A in order to prepare for ambulation. (Progressing) Start: 01/18/23 Expected End: 01/25/23 Education Education Given To: Patient Education Provided: Goals, PT Role, Plan of Care, Transfer Training, General Safety, Equipment, Gait Training, Functional Mobility Training Education Method: Verbal, Demonstration, Teach Back Barriers to Learning: Cognition Education Outcome: Verbalized understanding, Demonstrated understanding, Continued education needed Therapy Time Individual Co-treatment Time In 0900 Time Out 0930 Minutes 30 Timed Code Treatment Minutes: 23 Minutes (ther act and gait) Juliette Aguillon PTA This nurse was informed by assistant professor of nursing that patient BG this morning was 52. Patient initially refusing to drink orange juice. This nurse explained to patient his options besides drinking orange juice to assist to raise his blood glucose, patient opted to drink orange juice. This nurse assisted patient to drink 4oz of orange juice at this time. Nutrition Assessment Type and Reason for Visit: Initial, Positive Nutrition Screen (dt screen for cachexia and unc dm- pt minimally responsive,dysphagia) Nutrition Recommendations/Plan: Suggest to continue minced and moist no straw dysphagia diet per CLAIMS PROCESSOR -for MBS 4/ per MNT protocol ,will initiate chocolate Ensure Plus hi protein - 350 alcides, 20 gm pro/serving. Please document PO intakes-diet and ONS- consistently in the flowsheet to better assess intake adequacy. Needs fed Continue remeron Monitor labs, status, intakes,wts to reassess. Follow up at least weekly Malnutrition Assessment: Malnutrition Status: Severe malnutrition Context: Chronic Illness Findings of the 6 clinical characteristics of malnutrition: Energy Intake: 75% or less estimated energy requirements for 1 month or longer Weight Loss: Unable to assess Body Fat Loss: Severe body fat loss Orbital, Triceps, Buccal region Muscle Mass Loss: Severe muscle mass loss Temples (temporalis), Clavicles (pectoralis & deltoids), Scapula (trapezius), Hand (interosseous), Calf (gastrocnemius), Thigh (quadraceps) Fluid Accumulation: No significant fluid accumulation Machine Attendant Strength: Not Performed Nutrition Assessment: per md-CHIEF COMPLAINT: generalized weakness Reason for Admission: hyperglycemia History Obtained From: patient History of Present Illness Tita Keith is a 87 y.o. male who presents to the emergency department with chief complaint of generalized weakness. He has a history of dementia, but is baseline oriented to what only. He comes from retirement facility. Reportedly at his facility the last couple days he has been overall weak and nonambulatory. He had an episode where he choked on his pills the other day. Facility called to bring a bed, when EMS arrived they noted a sugar that was high up a glucometer. In the ED, patient is oriented to self but otherwise does not answer questions appropriately. Noted recent falls, but per chart review he did have a fall on 01/05/2023 and was evaluated at that time. His sugar is much better this am. He is still having issues with swallowing and speech is to see him daughter is at the bedside questions answered.Principal Problem: Hyperosmolar hyperglycemic state (HHS) (HCC) Active Problems: Hyperglycemia DM 2 with hyperglycemia Dysphagia HTN HPL Plan MBS on Sunday Plan is for snf placementTO HAVE MBS Estimated Daily Nutrient Needs: Energy Requirements Based On: Kcal/kg Weight Used for Energy Requirements: [place] Weight for Energy Calculation (kg): 86 kg Total Energy Requirements (kcals/day): 22-25 or 6925-8227 Weight Used for Protein Requirements: [place] Weight in Kg Used for Protein Requirements: 86 kg Estimated Total Protein (g/day): .8-1.2 or 69-86-103 Estimated Daily Total Fluid (ml/day): or per md Nutrition Related Findings: glu 533, hbaic 8.6, prior adm >14 01/19bm-eats bites for daughter Wound Type: (inna 12- poor integrity) Current Nutrition Therapies: Adult diet Dysphagia - Minced and Moist; No Drinking Straws Current Oral Intake Average Meal Intake: 0%, 1-25% (son at bedside) Average Supplements Intake: None Ordered (RD to start) Anthropometric Measures: Height: 188 cm (6' 2") Current Body Weight: 50.3 kg (110 lb 14.3 oz) Weight Source: Bed Scale [place] Body Weight (lbs) (Calculated): 190 lbs [place] Body Weight (Kg) (Calculated): 86 kg % [place] Body Weight (Calculated): 58.4 % BMI (kg/m2) (Calculated): 14.2 BMI Categories: Underweight (BMI less than 22) age over 65 Nutrition Diagnosis: Severe malnutrition related to cognitive or neurological impairment, swallowing difficulty, biting/chewing (masticatory) difficulty as evidenced by intake 0-25%, weight loss, BMI, severe muscle loss, severe loss of subcutaneous fat (acute on chronic) Altered nutrition-related lab values related to endocrine dysfuntion as evidenced by lab values (hbaic) Nutrition Interventions: Nutrition Education/Counseling: Education not indicated Coordination of Nutrition Care: Continue to monitor while inpatient, Feeding Assistance/Environment Change, Speech Therapy Plan of Care discussed with: daughter Goals: Goals: PO intake 50% or greater, other (specify) Specify Other Goals: labs trend toward baseline Nutrition Monitoring and Evaluation: Behavioral-Environmental Outcomes: None Identified Food/Nutrient Intake Outcomes: Food and Nutrient Intake, Supplement Intake, Diet Advancement/Tolerance Physical Signs/Symptoms Outcomes: Biochemical Data, Chewing or Swallowing, GI Status, Fluid Status or Edema, Hemodynamic Status, Meal Time Behavior, Nutrition Focused Physical Findings, Skin, Weight Discharge Planning: Continue current diet, Continue Oral Nutrition Supplement Mayra Man RD Contact: *[phone] or secure chat Department of Family Medicine Daily Progress Note Subjective Chief Complaint (required for billing): Hyperosmolar hyperglycemic state (HHS) (HCC) Pt doing ok this am daughter at the bedside. We are awaiting auth for snf ROS: Review of Systems Objective BP (!) 142/80 (BP Location: Right arm, Patient Position: Lying) Pulse 81 Temp 36.3 C (97.3 F) (Temporal) Resp 20 Ht 6' 2" (1.88 m) Wt 110 lb 14.3 oz (50.3 kg) SpO2 98% BMI 14.24 kg/m Physical Exam Pt is alert and oriented x 2 Heent wnl Heart regular Lungs ctab Abd benign Ext no edema Labs Notable Labs: Current Medications Medication orders reviewed, see MAR Assessment/Plan Principal Problem: Hyperosmolar hyperglycemic state (HHS) (HCC) Active Problems: Hyperglycemia DM 2 with hyperglycemia Dysphagia HTN HPL Plan MBS on Sunday Plan is for snf placement FEN:Adult diet Dysphagia - Minced and Moist; No Drinking Straws GI prophylaxis: NA DVT prophylaxis: lovenox # Anticipated Discharge - Date - 2 d - Location - Skilled Facility - Pending the following - KAYLEIGH STOUT DO 01/20/23 3:16 PM Speech-Language Pathology Facility/Department: [facility] [id number] DYSPHAGIA TREATMENT NAME: Tita Keith : 1935 ADMISSION DATE: 01/17/2023 ADMITTING DIAGNOSIS: has New onset type 2 diabetes mellitus (CMS/HCC) ([facility]); Hyperosmolar hyperglycemic state (HHS) ([facility]); and Hyperglycemia on their problem list. No Known Allergies Oxygen Level: O2 Device: None (Room air) Liters of Oxygen: Current Diet Level: Dietary Orders (From admission, onward) Start Ordered 01/18/23 1214 Adult diet Dysphagia - Minced and Moist Diet effective now Question: Diet type Answer: Dysphagia - Minced and Moist 01/18/23 1214 General Chart Reviewed: Yes PPE Worn: surgical mask, gloves Behavior/Cognition: Cooperative, Distractible, Requires cueing, Confused Respiratory Status: Room air Follows Directions: Simple Current Diet : Dysphagia Minced and Moist (Dysphagia II) Current Liquid Diet : Thin Dentition: Adequate Patient Positioning: Upright in bed Baseline Vocal Quality: Wet Volitional Cough: Weak, Wet Consistencies Administered: Dysphagia Minced and Moist (Dysphagia II), Dysphagia Pureed (Dysphagia I), Thin - cup Pain: RN managing patient pain S: Alert but confused throughout the session. Nonsense speech observed; possible hallucinations - RN notified O: Assess tolerance of current diet A: Adjusted upright in bed and provided 1:1 feeding assist. Pt presents with wet/gurgly vocal quality at arrival. Opens oral cavity minimal and requires verbal cues to "open". Pt observed to take tiny presentation of food from spoon and observed to hold for 3 seconds, swallow initiated when cued to swallow. Hyolaryngeal elevation observed through palpitation. Delayed weak cough observed x2 with solids presentations, cued to reswallow to clear vocal quality. RN notified of pt's status, who reports this is a decline from yesterday. Recommended Diet and Intervention Diet Solids Recommendation: Dysphagia Minced and Moist (Dysphagia II) Liquid Consistency Recommendation: Thin Therapeutic Interventions: Diet tolerance monitoring, Therapeutic PO trials with CLAIMS PROCESSOR, Patient/Family education Compensatory Swallowing Strategies Compensatory Swallowing Strategies : Assist feed, Upright as possible for all oral intake, No straws, Small bites/sips, Eat/Feed slowly Treatment/Goals Encounter Problems Encounter Problems (Active) Swallowing Patient will tolerate recommended food and liquid consistencies without clinical signs and symptoms of aspirations (Progressing) Start: 01/18/23 Expected End: 02/02/23 Patient will participate in instrumental assessment of swallowing as appropriate (Not Addressed) Start: 01/18/23 Expected End: 02/02/23 Education Education Given To: Patient Education Response: Needs reinforcement P: Check diet tolerance & recommending MBS to assess pharyngeal phase of the swallow/determine LRD. Treatment Plan Requires CLAIMS PROCESSOR Intervention: Yes Frequency/Duration: Frequency of Treatment: 3 days/wk for Duration of Treatment: 2 weeks Therapy Time CLAIMS PROCESSOR Individual Minutes Time In: 1240 Time Out: 1300 Minutes: 20 RENE Astorga 01/19/2023 1:01 PM Physical Therapy Facility/Department: [address] Physical Therapy Daily Treatment Note NAME: Tita Keith : 1935 Date of Service: 01/19/2023 Discharge Recommendations: Subacute/[facility] Facility PT Equipment Recommendations Equipment Needed: (TBD at next level of care) Other: TBD at next level of care Assessment Assessment: Pt demonstrates continued confusion and weakness at this time. Pt requires skilled modA x 2 therapists for bed mobility, STS transfers and minimal ambulation placing him at a high risk of falling. Pt limited by fatigue and weakness. Pt could benefit from continued PT in order to progress toward goals. Recommendation for SNF remains appropriate at this time. Requires PT Follow-Up: Yes Patient Diagnosis(es): The encounter diagnosis was Hyperosmolar hyperglycemic state (HHS) (HCC). has a past medical history of Dementia (HCC), Diabetes mellitus (HCC), Hyperlipidemia, and Hypertension. has a past surgical history that includes Back surgery. Restrictions Restrictions/Precautions Restrictions/Precautions: General Precautions, Fall Risk Required Braces or Orthoses?: No Subjective General Chart Reviewed: Yes Patient Assessed for Rehabilitation Services: Yes Additional Pertinent Hx: Pt admitted 01/17 with confusion and generalized weakness. Pt was found to have HHS. Family / Caregiver Present: No Follows Commands: Within Functional Limits General Comment Comments: Per RN patient okay for therapy. Co-tx with OT secondary to level of assist for safe mobility. Subjective Subjective: Pt pleasant and agreeable to therapy session. Pain Assessment Pain Assessment: No/denies pain Cognition/Orientation Overall Cognitive Status: Exceptions Arousal/Alertness: Delayed responses to stimuli Following Commands: Follows one step commands with increased time, Follows one step commands with repetition Attention Span: Attends with cues to redirect Memory: Decreased recall of recent events, Decreased short term memory, Decreased recall of biographical Information Safety Judgement: Decreased awareness of need for safety, Decreased awareness of need for assistance Problem Solving: Assistance required to generate solutions, Assistance required to implement solutions, Decreased awareness of errors, Assistance required to correct errors made, Assistance required to identify errors made Insights: Not aware of deficits Initiation: Requires cues for all Sequencing: Requires cues for all Overall Orientation Status: Impaired Orientation Level: Oriented to person, Disoriented to situation, Disoriented to time, Disoriented to place Objective Bed mobility Supine to Sit: Moderate assistance, 2 Person assistance Sit to Supine: Moderate assistance, 2 Person assistance Scootin Person assistance, Moderate assistance Comment: Pt required HOB elevated and use of bed features with extended time and to complete with verbal cues for initiation and sequencing of bed mobility. Pt required mod A x2 for all aspects for bed mobility in regards to BLE and trunk management. Denied dizziness with changes in positioning. Transfers Sit to Stand: Moderate Assistance, 2 Person Assistance (to FWW from EOB 3x) Stand to sit: Moderate Assistance, 2 Person Assistance Comment: Denies dizziness on initial stance. Pt requires cues for hand placement and B LE placement in preparation for ascent/descent with need for hand over hand placement and cues/physical assist for weight shifting on ascent/descent. Pt requires skilled assist of 2 therapists to safely complete for 3 trials. Pt tolerates 2 minutes static standing consistently. Patient requires continued modA x 2 for lateral stepping EOB with assist for weight shifting, FWW management and stability during steps. Increased time to adjust COM over JESE in standing, once completed modA x 1 for static standing. Ambulation Ambulation: Yes Ambulation 1 Surface 1: Level tile Device 1: Rolling walker Assistance 1: Moderate assistance, x2 person Quality of Gait 1: shuffling, instability throughout all phases, slow diane, step to pattern Distance (ft) 1: 2 ft laterally EOB Comments 1: Pt ambulates ~4 lateral steps at EOB. Pt requires mod A x2 person for FWW management, lateral and anterior weightshifting. Cues required for sequencing task, upright posture. Pt demos short, step to pattern, decreased gait speed. Demos generalized instability. Balance Comments: Pt requires CGA to SBA for static and dynamic sitting balance for ~20 minutes total this session during rest breaks between transfers and during ADLs with OT. Plan # of visits: 5 visits Current Treatment Recommendations: Strengthening, Balance Training, Functional Mobility Training, Transfer Training, Endurance Training, Gait Training, Neuromuscular Re-education, Pain Management, Home Exercise Program, Safety Education & Training, Patient/Caregiver Education & Training, Equipment Evaluation, Education, & procurement, Positioning, ROM, Cognitive/Perceptual Training, Cognitive Reorientation Plan Comment: Goals and/or treatment plan were established in collaboration with patient. Safety Safety Devices Type of Devices: All fall risk precatuions in place, Call light within reach, Gait belt, Patient at risk for falls, Left in bed, Nurse notified, Bed alarm in place AM-PAC Score AM-PAC Inpatient Mobility Raw Score: 8 Mobility Inpatient [facility] G-Code Modifier: CM Goals Encounter Problems Encounter Problems (Active) Exercise Patient will complete lower extremity exercises for 1-2 sets / 5-10 reps in order to improve strength and activity tolerance for mobility. (Not Addressed) Start: 01/18/23 Expected End: 01/25/23 Mobility Patient will ambulate 50 feet with min assist and rolling walker in order to improve safety and independence with mobility. (Progressing) Start: 01/18/23 Expected End: 01/25/23 Transfers Patient will perform bed mobility with mod assist in order to improve independence and prepare for out of bed mobility. (Progressing) Start: 01/18/23 Expected End: 01/25/23 Patient will complete functional transfer with rolling walker with mod A in order to prepare for ambulation. (Progressing) Start: 01/18/23 Expected End: 01/25/23 Education Education Given To: Patient Education Provided: Goals, Precautions, Family Education, Gait Training, PT Role, Transfer Training, Plan of Care, Energy Conservation, Functional Mobility Training, Discharge recommendations, Orientation, Injury Prevention Education Method: Demonstration, Verbal Barriers to Learning: Cognition Education Outcome: Verbalized understanding, Demonstrated understanding, Continued education needed Therapy Time Individual Co-treatment Time In 932 Time Out 1013 Minutes 40 Timed Code Treatment Minutes: 25 Minutes (theract x 2) Kerline Bhat PT Per Dr. Stout, okay to leave tele off and IV out as pt keeps pulling IV out and tele off. Okay to stop continuous fluids. Occupational Therapy Facility/Department: Occupational Therapy Treatment NAME: Tita Keith : 1935 Date of Service: 01/19/2023 Discharge Recommendations: Subacute/[facility] Facility Assessment Performance deficits / Impairments: Decreased functional mobility , Decreased endurance, Decreased ADL status, Decreased strength, Decreased balance, Decreased safe awareness, Decreased cognition Assessment: Pt continues to be limited by impaired balance, endurance and strength as well as impaired cognition. Pt completed grooming with SBA, and LB ADLs with mod-total A. Pt completed bed mobility, STS, standing balance and lateral steps with mod A at fww. Pt should continue to benefit from skilled OT services in order to increase safety and independence in occupational participation, pt remains appropriate for SNF at d/c. Prognosis: Fair Exam: AM-PAC REQUIRES OT FOLLOW-UP: Yes Patient Diagnosis(es): The encounter diagnosis was Hyperosmolar hyperglycemic state (HHS) (HCC). has a past medical history of Dementia (HCC), Diabetes mellitus (HCC), Hyperlipidemia, and Hypertension. has a past surgical history that includes Back surgery. Restrictions Restrictions/Precautions Restrictions/Precautions: General Precautions, Fall Risk Required Braces or Orthoses?: No Cognition/Orientation Overall Cognitive Status: Exceptions Arousal/Alertness: Delayed responses to stimuli Following Commands: Follows one step commands with increased time, Follows one step commands with repetition Attention Span: Attends with cues to redirect Memory: Decreased recall of recent events, Decreased short term memory, Decreased recall of biographical Information Safety Judgement: Decreased awareness of need for safety, Decreased awareness of need for assistance Problem Solving: Assistance required to generate solutions, Assistance required to implement solutions, Decreased awareness of errors, Assistance required to correct errors made, Assistance required to identify errors made Insights: Not aware of deficits Initiation: Requires cues for all Sequencing: Requires cues for all Overall Orientation Status: Impaired Orientation Level: Oriented to person, Disoriented to situation, Disoriented to time, Disoriented to place Subjective Subjective Subjective: Pt pleasant and cooperative. General Comments Comments: Per RN, pt OK to see. Co-tx with PT as pt is 2-person assist to safely mobilize. Pain Assessment Pain Assessment: No/denies pain Objective Grooming/Oral Hygiene Assistance Level: Set-up, Stand by assist Skilled Clinical Factors: Pt completed grooming while seated at EOB with SBA for sitting balance. Pt completed face washing/drying, brushing of hair and oral hygiene with SBA to complete and setup. UE Dressing Assistance Level: Moderate assistance Skilled Clinical Factors: Pt required assist for intiation and sequencing doffing soiled gown and donning fresh gown. Pt required mod A for sleeve management. LE Dressing Assistance Level: Maximum assistance, Moderate assistance Skilled Clinical Factors: Pt required significant assist to doff soiled brief. Pt required VC for intiation and sequencing donning brief, pt required assist to thread BLE into brief after pt's multiple unsuccessful attempts at completing. Pt able to hike past hips in standing at fww with SBA to complete, with mod A for standing balance at fww. Toileting Assistance Level: Dependent Skilled Clinical Factors: Pt required total A for pericare in standing with mod A for balance at fww. Balance Sitting Balance: (min A progress to SBA- pt tolerated sitting at EOB ~20 min) Standing Balance: Moderate assistance Standing Balance Time: at best ~2 min between ~3 trials Activity: static standing, LB ADLs Comment: Pt required mod A for standing balance at fww with VC for forward weight shift. Functional Mobility Functional - Mobility Device: Rolling Walker Activity: Other Assist Level: Moderate assistance Functional Mobility Comments: Pt completed ~3 lateral steps with mod A x2 with assist for balance and fww management for sequencing lateral steps. Pt with instability but no true LOB noted. Bed mobility Supine to Sit: Moderate assistance, 2 Person assistance Sit to Supine: Moderate assistance, 2 Person assistance Scootin Person assistance, Moderate assistance Comment: Pt required HOB elevated and use of bed features with extended time and to complete with VC for initiation and sequencing of bed mobility. Pt required mod A x2 for all aspects for bed mobility in regards to BLE and trunk management. Denied dizziness with changes in positioning. Transfers Sit to stand: Moderate assistance, 2 Person assistance Stand to sit: Moderate assistance, 2 Person assistance (assist for controlled descent) Transfer Comments: at fww- from elevated surface (first trial) and from standard surface (trial 2 and 3) with VC for safe hand placement with TC to complete. Pt completed with mod A x2 to complete. Plan Times per Week: 7 visits Current Treatment Recommendations: Strengthening, Balance Training, Functional Mobility Training, Endurance Training, Pain Management, Safety Education & Training, Self-Care / ADL, Positioning, Cognitive Reorientation, Equipment Evaluation, Education, & procurement, Patient/Caregiver Education & Training Plan Comment: POC and goals established in collaboration with pt. Safety Safety Devices in place: Yes Type of devices: All fall risk precautions in place, Left in bed, Call light within reach, Nurse notified, Gait belt, Patient at risk for falls, Bed alarm in place AM-PAC Score AM-PAC Inpatient Daily Activity Raw Score: 13 ADL Inpatient CMS G-Code Modifier: CL Goals Encounter Problems Encounter Problems (Active) Balance Patient will tolerate standing for 3 minutes with SBA to improve occupational performance. Start: 01/18/23 Expected End: 01/25/23 Patient will maintain dynamic sitting balance for 6 minutes with supervision in order to demonstrate improved postural control and prepare for out of bed mobility. Start: 01/18/23 Expected End: 01/25/23 Dressing Upper Extremities Patient will complete upper body ADLs and grooming tasks with SBA Start: 01/18/23 Expected End: 01/25/23 Dressings Lower Extremities Patient will perform LB ADLs with Min A Start: 01/18/23 Expected End: 01/25/23 Mobility Pt will perform functional mobility and transfers with Min A using FWW Start: 01/18/23 Expected End: 01/25/23 Toileting Patient will complete toileting tasks at standard toilet with min assist. Start: 01/18/23 Expected End: 01/25/23 Transfers Patient will perform bed mobility with min assist in order to improve independence and prepare for out of bed mobility. Start: 01/18/23 Expected End: 01/25/23 Education Education Given To: Patient, Family Education Provided: OT Role, Plan of Care, Equipment, Transfer Training, ADL Adaptive Strategies, Fall Prevention Strategies Education Method: Verbal Barriers to Learning: Cognition Education Outcome: Continued education needed, Verbalized understanding Therapy Time Individual Co-treatment Time In 932 Time Out 1013 Minutes 40 Timed Code Treatment Minutes: 39 Minutes (3 ADL) Trisha Gambino OT Department of Family Medicine Daily Progress Note Subjective Chief Complaint (required for billing): Hyperosmolar hyperglycemic state (HHS) (HCC) Pt doing ok today still very confused at times glucose nornalized ROS: Review of Systems Objective BP (!) 157/90 (BP Location: Left arm, Patient Position: Lying) Pulse 79 Temp 36.8 C (98.3 F) (Temporal) Resp 14 Ht 6' 2" (1.88 m) Wt 110 lb 14.3 oz (50.3 kg) SpO2 96% BMI 14.24 kg/m Physical Exam Pt is alert and oriented x 2 Heent wnl Heart regular Lungs ctab Abd benign Ext no edema Labs Notable Labs: Current Medications Medication orders reviewed, see MAR Assessment/Plan Principal Problem: Hyperosmolar hyperglycemic state (HHS) (HCC) Active Problems: Hyperglycemia DM 2 with hyperglycemia Dysphagia HTN HPL Plan MBS on Sunday Plan is for snf placement FEN:Adult diet Dysphagia - Minced and Moist GI prophylaxis: NA DVT prophylaxis: lovenox # Anticipated Discharge - Date - 2 d - Location - Skilled Facility - Pending the following - KAYLEIGH STOUT DO 01/19/23 9:25 PM Nutrition rescreen completed. Patient referred to the Dietitian for cachexia & uncontrolled DM. Physical Therapy Facility/Department: [address] Physical Therapy Initial Evaluation NAME: Tita Keith : 1935 Date of Service: 01/18/2023 Discharge Recommendations: Subacute/[facility] Facility PT Equipment Recommendations Equipment Needed: (TBD at next level of care) Assessment Assessment: Pt admitted 01/17 with confusion and generalized weakness. Pt was found to have HHS. Pt was previously independent with functional mobility, daughter reports decline in functional mobility in last 3 weeks. Pt is currently requiring mod A x2 for bed mobility, mod A x2 person for functional transfers, mod A x1 for lateral steps EOB. Pt is limited by fatigue, cognition. Pt is currently at an increased risk for falls. Pt will benefit from acute skilled PT to address current deficits. Recommend SNF. Performance Deficits/Impairments: Decreased functional mobility , Decreased strength, Decreased balance, Decreased cognition, Decreased endurance, Decreased posture Activity Tolerance Comment: Pt limited by fatigue, cognition Decision Making: Medium Complexity History: Pt admitted 01/17 with confusion and generalized weakness. Pt was found to have HHS. Exam: AM-PAC Clinical Presentation: Pt admitted 01/17 with confusion and generalized weakness. Pt was found to have HHS. Pt has significant past medical history as indicated impacting pt's current clinical presentation. Pt requires mod A x2 for bed mobility, functional transfers, mod A x1 for lateral steps. Pt is currently at an increased risk for falls. Recommend SNF. Barriers to Learning: Cognition Requires PT Follow-Up: Yes Barriers to Learning: Cognition Activity Tolerance Activity Tolerance: Patient limited by fatigue Patient Diagnosis(es): The encounter diagnosis was Hyperosmolar hyperglycemic state (HHS) ([facility]). has a past medical history of Dementia (HCC), Diabetes mellitus (HCC), Hyperlipidemia, and Hypertension. has a past surgical history that includes Back surgery. Restrictions Restrictions/Precautions Restrictions/Precautions: General Precautions, Fall Risk Required Braces or Orthoses?: No Vision/Hearing Vision: Within Functional Limits Hearing: Functional/adequate for paticipation in therapy Cognition/Orientation Overall Cognitive Status: Exceptions Arousal/Alertness: Delayed responses to stimuli Following Commands: Follows one step commands with increased time, Follows one step commands with repetition Attention Span: Attends with cues to redirect Memory: Decreased recall of recent events, Decreased short term memory, Decreased recall of biographical Information Safety Judgement: Decreased awareness of need for safety, Decreased awareness of need for assistance Problem Solving: Assistance required to generate solutions, Assistance required to implement solutions, Decreased awareness of errors, Assistance required to correct errors made, Assistance required to identify errors made Insights: Not aware of deficits Initiation: Requires cues for all Sequencing: Requires cues for all Overall Orientation Status: Impaired Orientation Level: Oriented to person, Disoriented to situation, Disoriented to time, Disoriented to place Subjective General Chart Reviewed: Yes Patient Assessed for Rehabilitation Services: Yes Additional Pertinent Hx: Pt admitted 01/17 with confusion and generalized weakness. Pt was found to have HHS. Family / Caregiver Present: Yes (daughter) Follows Commands: Within Functional Limits General Comment Comments: Per RN okay for therapy Subjective Subjective: Pt pleasant and agreeable to therapy session. Pain Assessment Pain Assessment: No/denies pain Social/Functional History Social/Functional History Type of Home: Assisted living Home Layout: One level Home Access: Level entry Bathroom Shower/Tub: Walk-in shower, Shower chair with back Bathroom Toilet: Handicap height Bathroom Equipment: Grab bars in shower, Built-in shower seat, Hand-held shower, Grab bars around toilet Bathroom Accessibility: Wheelchair accessible Home Equipment: Wheelchair-manual, Rollator Receives Help From: Other (comment) (staff) ADL Assistance: Needs assistance (Pt was previously completing some of his ADLs, but in the last month has begun requiring nearly total assist.) Homemaking Assistance: Needs assistance Homemaking Responsibilities: No (staff completes) Ambulation Assistance: Needs assistance (Pt was previously walking with no AD but in the last 3 weeks has required a wc for mobility.) With device?: Yes Transfer Assistance: Needs assistance Active Forest Fire Officer: No Occupation: Retired Objective Observation/Palpation Posture: Fair Observation: IV intact; ED tele intact with vitals WFL Gross Assessment Gross Assessment: Yes Strength: Generally decreased, functional Gross Assessment: Yes Strength: Generally decreased, functional Bed mobility Supine to Sit: Moderate assistance, 2 Person assistance Sit to Supine: Moderate assistance, 2 Person assistance Scootin Person assistance, Moderate assistance Comment: Pt requires mod A x2 person assist for bed mobility. Pt requires assist for trunk and BLE assist. Pt able to initiate BLE movement with increased time to complete. Significant cues required for initiation and sequencing of task. Use of alisha pad to square hips to EOB. Pt denies dizziness with position changes. Transfers Sit to Stand: Moderate Assistance, 2 Person Assistance Stand to sit: Moderate Assistance, 2 Person Assistance Comment: Pt requires mod A x2 person assist for sit<->stand transfers. Cues required cues for hand placement. Allowed pt to place one hand on FWW to elevate to stand due to cognition. Pt requires assist to elevate and control descent. Ambulation Ambulation: Yes Ambulation 1 Surface 1: Level tile Device 1: Rolling walker Assistance 1: Moderate assistance Quality of Gait 1: No LOB, step to pattern, shuffling, slow diane, instability throughout all phases Quality of Gait Comment 1: Pt ambulates ~4 lateral steps at EOB. Pt requires mod A x1 person for FWW management, lateral and anterior weightshifting. Cues required for sequencing task, upright posture. Pt demos short, step to pattern, decreased gait speed. Demos generalized instability. Distance (ft) 1: ~4 lateral steps Balance Posture: Fair Sitting - Static: Fair, + Sitting - Dynamic: Fair Standing - Static: Fair, - Standing - Dynamic: Fair, - Comments: Pt requires CGA for static and dynamic standing balance, CGA to mod A for standing balance at FWW. Plan # of visits: 5 Current Treatment Recommendations: Strengthening, Balance Training, Functional Mobility Training, Transfer Training, Endurance Training, Wheelchair Mobility Training, Gait Training, Neuromuscular Re-education, Pain Management, Home Exercise Program, Safety Education & Training, Patient/Caregiver Education & Training, Equipment Evaluation, Education, & procurement, Positioning Plan Comment: Goals and plan of care established in collaboration with pt Safety Safety Devices Safety Devices in Place: Yes Type of Devices: All fall risk precatuions in place, Call light within reach, Gait belt, Patient at risk for falls, Left in bed, Nurse notified Restraints Restraints Initially in Place: No AM-PAC Score AM-PAC Inpatient Mobility Raw Score: 8 Mobility Inpatient [facility] G-Code Modifier: CM Goals Encounter Problems Encounter Problems (Active) Exercise Patient will complete lower extremity exercises for 1-2 sets / 5-10 reps in order to improve strength and activity tolerance for mobility. Start: 01/18/23 Expected End: 01/25/23 Mobility Patient will ambulate 50 feet with min assist and rolling walker in order to improve safety and independence with mobility. Start: 01/18/23 Expected End: 01/25/23 Transfers Patient will perform bed mobility with mod assist in order to improve independence and prepare for out of bed mobility. Start: 01/18/23 Expected End: 01/25/23 Patient will complete functional transfer with rolling walker with mod A in order to prepare for ambulation. Start: 01/18/23 Expected End: 01/25/23 Education Education Given To: Patient Education Provided: Goals, Precautions, Family Education, Gait Training, PT Role, Transfer Training, Plan of Care, Energy Conservation, Functional Mobility Training, Discharge recommendations Education Method: Demonstration, Verbal Barriers to Learning: Cognition Education Outcome: Verbalized understanding, Demonstrated understanding, Continued education needed Therapy Time Individual Co-treatment Time In 915 (co-eval with OT) Time Out 0935 Minutes 19 Fatou Emanuel PT Occupational Therapy Facility/Department: ED Occupational Therapy Initial Evaluation NAME: Tita Keith : 1935 Date of Service: 01/18/2023 Having reviewed the treatment plan and goals for this patient, I certify that the plan of care below is medically necessary and appropriate. Discharge Recommendations: Subacute/[facility] Facility OT Equipment Recommendations Equipment Needed: No Assessment Performance deficits / Impairments: Decreased functional mobility , Decreased endurance, Decreased ADL status, Decreased strength, Decreased balance, Decreased safe awareness, Decreased cognition Assessment: Pt admitted to ED on 01/17 with high blood sugars (>500). 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 At baseline, pt is A&O x1. Per his daughter, pt was at [facility] and was ambulating independently but requiring some assist for ADLs until 3 weeks ago where he began declining. He has since required total assist for ADLs and uses a wc for mobility. Upon eval, pt required Mod x2 for bed mobility and transfers, Mod A x1 for a few steps at EOB, and Mod-total for ADLs. Pt is well below baseline and is a high risk for falls and readmission. Recommend SNF. Prognosis: Fair Decision Making: Medium Complexity Exam: AM-PAC Assistance / Modification: Mod A x2 REQUIRES OT FOLLOW-UP: Yes Activity Tolerance Activity Tolerance: Patient limited by fatigue, Treatment limited secondary to decreased cognition Patient Diagnosis(es): The encounter diagnosis was Hyperosmolar hyperglycemic state (HHS) (HCC). has a past medical history of Dementia (HCC), Diabetes mellitus (HCC), Hyperlipidemia, and Hypertension. has a past surgical history that includes Back surgery. Restrictions Restrictions/Precautions Restrictions/Precautions: General Precautions, Fall Risk Required Braces or Orthoses?: No Vision/Hearing Vision: Within Functional Limits Hearing: Functional/adequate for paticipation in therapy Cognition/Orientation Overall Cognitive Status: Exceptions Arousal/Alertness: Delayed responses to stimuli Following Commands: Follows one step commands with increased time, Follows one step commands with repetition Attention Span: Attends with cues to redirect Memory: Decreased recall of recent events, Decreased short term memory, Decreased recall of biographical Information Safety Judgement: Decreased awareness of need for safety, Decreased awareness of need for assistance Problem Solving: Assistance required to generate solutions, Assistance required to implement solutions, Decreased awareness of errors, Assistance required to correct errors made, Assistance required to identify errors made Insights: Not aware of deficits Initiation: Requires cues for all Sequencing: Requires cues for all Overall Orientation Status: Impaired Orientation Level: Oriented to person, Disoriented to situation, Disoriented to time, Disoriented to place Subjective General Chart Reviewed: Yes Patient Assessed for Rehabilitation Services: Yes Family / Caregiver Present: Yes (daughter) Subjective Subjective: Pt quiet but agreeable and cooperative with therapy. General Comments Comments: Per RN, pt OK to see. Pain Assessment Pain Assessment: No/denies pain Pain Score: 0 - No pain Social/Functional History Social/Functional History Type of Home: Assisted living Home Layout: One level Home Access: Level entry Bathroom Shower/Tub: Walk-in shower, Shower chair with back Bathroom Toilet: Handicap height Bathroom Equipment: Grab bars in shower, Built-in shower seat, Hand-held shower, Grab bars around toilet Bathroom Accessibility: Wheelchair accessible Home Equipment: Wheelchair-manual, Rollator Receives Help From: Other (comment) (staff) ADL Assistance: Needs assistance (Pt was previously completing some of his ADLs, but in the last month has begun requiring nearly total assist.) Homemaking Assistance: Needs assistance Homemaking Responsibilities: No (staff completes) Ambulation Assistance: Needs assistance (Pt was previously walking with no AD but in the last 3 weeks has required a wc for mobility.) With device?: Yes Transfer Assistance: Needs assistance Active Forest Fire Officer: No Occupation: Retired Objective Gross Assessment: Yes AROM: Generally decreased, functional PROM: Generally decreased, functional Strength: Grossly decreased, non-functional Coordination: Generally decreased, functional Tone: Normal Sensation: Intact Observation/Palpation Posture: Fair Observation: IV intact; ED tele intact with vitals WFL Balance Sitting Balance: Contact guard assistance Standing Balance: Moderate assistance Standing Balance Time: ~ 30 seconds Activity: static standing Comment: Pt stood at EOB with mod A x1 using the FWW for support. He presented with a retro lean requiring cues to correct posture. Functional Mobility Functional - Mobility Device: Rolling Walker Activity: Other Assist Level: Moderate assistance Functional Mobility Comments: Pt able to take ~ 6 lateral steps at EOB with Mod A using the FWW. Assist for balance and walker management. Unsafe to leave EOB this date d/t cognition and strength deficits. ADL Feeding: Setup Grooming: Moderate assistance UE Bathing: Moderate assistance LE Bathing: Dependent/Total UE Dressing: Moderate assistance LE Dressing: Dependent/Total Toileting: Dependent/Total Additional Comments: Pt toileting at bed level but possesses the ability to transfer to a BSC based on observation during evaluation. He requires Mod-Total assist for all ADLs d/t poor cognition at this time. Bed mobility Supine to Sit: Moderate assistance, 2 Person assistance Sit to Supine: Moderate assistance, 2 Person assistance Scootin Person assistance, Moderate assistance Comment: Pt required Mod A x2 for bed mobility. Required frequent cues to initiate and sequence the movements but did attempt to assist with B LE management. Required use of alisha pad to square hips and assist to elevate trunk. He sat at EOB with CGA for balance for~ 5 minutes. Denied dizziness. Pt returned to supine with Mod A x2 Transfers Sit to stand: Moderate assistance, 2 Person assistance Stand to sit: Moderate assistance, 2 Person assistance Transfer Comments: Pt required Mod A x2 to elevate from bed to FWW. Cues for hand placement, with pt needing to put one hand on the walker to have success. Cues to correct posture d/t initial retro lean Plan Times per Week: 7 visits Current Treatment Recommendations: Strengthening, Balance Training, Functional Mobility Training, Endurance Training, Pain Management, Safety Education & Training, Self-Care / ADL, Positioning, Cognitive Reorientation, Equipment Evaluation, Education, & procurement, Patient/Caregiver Education & Training Plan Comment: POC and goals established in collaboration with pt. Safety Safety Devices in place: Yes Type of devices: All fall risk precautions in place, Left in bed, Call light within reach, Nurse notified, Gait belt, Patient at risk for falls AM-PAC Score AM-PAC Inpatient Daily Activity Raw Score: 9 ADL Inpatient CMS G-Code Modifier: CL Goals Encounter Problems Encounter Problems (Active) Balance Patient will tolerate standing for 3 minutes with SBA to improve occupational performance. Start: 01/18/23 Expected End: 01/25/23 Patient will maintain dynamic sitting balance for 6 minutes with supervision in order to demonstrate improved postural control and prepare for out of bed mobility. Start: 01/18/23 Expected End: 01/25/23 Dressing Upper Extremities Patient will complete upper body ADLs and grooming tasks with SBA Start: 01/18/23 Expected End: 01/25/23 Dressings Lower Extremities Patient will perform LB ADLs with Min A Start: 01/18/23 Expected End: 01/25/23 Mobility Pt will perform functional mobility and transfers with Min A using FWW Start: 01/18/23 Expected End: 01/25/23 Toileting Patient will complete toileting tasks at standard toilet with min assist. Start: 01/18/23 Expected End: 01/25/23 Transfers Patient will perform bed mobility with min assist in order to improve independence and prepare for out of bed mobility. Start: 01/18/23 Expected End: 01/25/23 Education Education Given To: Patient, Family Education Provided: OT Role, Plan of Care, Equipment, Transfer Training Education Provided Comments: Pts daughter receptive to education regarding DC recommendation and POC. Pt will require continued education d/t cognitive deficits. Education Method: Verbal Barriers to Learning: Cognition Education Outcome: Continued education needed Therapy Time Individual Co-treatment Time In 0915 Time Out 0935 Minutes 20 Reema Will OT Sent for cosign: Speech-Language Pathology Facility/Department: [facility] ED CLINICAL BEDSIDE SWALLOW EVALUATION NAME: Tita Keith : 1935 ADMISSION DATE: 01/17/2023 ADMITTING DIAGNOSIS: has New onset type 2 diabetes mellitus (CMS/HCC) (HCC) and Hyperosmolar hyperglycemic state (HHS) (HCC) on their problem list. Recent Chest Xray/CT of Chest: 01/17/23 Lungs: Chronic interstitial lung markings are observed. Otherwise, no focal consolidation.No evidence of pleural effusion or pneumothorax. Soft tissue: The soft tissue structures appear unremarkable. Bones: No acute osseous process identified. IMPRESSION: No acute cardiopulmonary process identified. Date of Eval: 01/18/2023 Evaluating Therapist: BRITTNY Mattson Current Diet level: Dietary Orders (From admission, onward) Start Ordered 01/17/232353 NPO diet Diet effective now 01/17/23 235 Primary Complaint Patient Complaint: Pt had coughing with drinks of water and while taking medications since in [facility]. Pain: Pain Assessment Pain Assessment: No/denies pain Pain Score: 0 - No pain Reason for Referral ED Note: 87 y.o. male who presents to the emergency department with chief complaint of generalized weakness. He has a history of dementia, but is baseline oriented to what only. He comes from retirement facility. Reportedly at his facility the last couple days he has been overall weak and nonambulatory. He had an episode where he choked on his pills the other day. Facility called to bring a bed, when EMS arrived they noted a sugar that was high up a glucometer. In the ED, patient is oriented to self but otherwise does not answer questions appropriately. Noted recent falls, but per chart review he did have a fall on 01/05/2023 and was evaluated at that time. Principal Problem: Hyperosmolar hyperglycemic state (HHS) (HCC) Tita Keith was referred for a bedside swallow evaluation to assess the efficiency of his swallow function, identify signs and symptoms of aspiration and make recommendations regarding safe dietary consistencies, effective compensatory strategies, and safe eating environment. Impression Dysphagia Impression : Recommend Minced and moist diet with thin liquids. No straws. Single smaller drinks. Provided medication crushed in puree or whole in puree if unable to crush. Assist with meals to keeps rate slow and single drinks. Throat clear and reswallow. CLAIMS PROCESSOR will assess need for further testing. (daughter indicated periods of spitting up food at times). Treatment Plan Requires CLAIMS PROCESSOR Intervention: Yes Frequency/Duration: 3 days/wk for 2 weeks Recommended Diet and Intervention Diet Solids Recommendation: Dysphagia Minced and Moist (Dysphagia II) Liquid Consistency Recommendation: Thin Recommended Form of Meds: Crushed in puree as able Recommendations: Dysphagia treatment Therapeutic Interventions: Diet tolerance monitoring, Patient/Family education, Therapeutic PO trials with CLAIMS PROCESSOR Compensatory Swallowing Strategies Compensatory Swallowing Strategies : Assist feed, Upright as possible for all oral intake, Small bites/sips, Eat/Feed slowly (throat clear and reswallow PRN) Treatment/Goals Encounter Problems Encounter Problems (Active) Swallowing Patient will tolerate recommended food and liquid consistencies without clinical signs and symptoms of aspirations Start: 01/18/23 Expected End: 02/02/23 Patient will participate in instrumental assessment of swallowing as appropriate Start: 01/18/23 Expected End: 02/02/23 Education Education Given: swallowing strategies, diet recommendations, potential for additional diagnositc testing Education Given To: Patient, Family Family member name and relationship: Daughter Education Response: Verbalizes understanding (Daughter, pt requires assist and reinforcement) General Chart Reviewed: Yes Comments: Pt's daughter was at bedside to assist with history. PPE Worn: surgical mask, gloves Subjective: Pt alert. Able to state First and middle name for orientation. Behavior/Cognition: Alert, Cooperative Respiratory Status: Room air O2 Device: None (Room air) Communication Observation: (Limited) Follows Directions: Simple Current Diet : NPO Current Liquid Diet : NPO Dentition: Adequate Patient Positioning: Upright in bed Baseline Vocal Quality: Normal, Weak (Baseline soft voicing) Volitional Cough: Congested (at times. wet, otherwise hacky) Prior Dysphagia History: Daughter indicated that increased chewing with meats over last few weeks. (at least 2 weeks with change in mentation and fever, ?virus) Prior MBS: No Patient Complaint: Pt had coughing with drinks of water and while taking medications since in [facility]. Consistencies Administered: Reg solid, Dysphagia Soft and Bite-Sized (Dysphagia III), Dysphagia Pureed (Dysphagia I), Ice Chips, Thin - straw, Thin - cup Vision/Hearing Hearing: Functional/adequate for paticipation in therapy Oral Motor Deficits Oral/Motor Oral Motor: (No formal assessment completed. No asymmetry noted.) Oral Phase Dysfunction Oral Phase Oral Phase - Comment: Mastication is slightly prolonged, even with softened foods. Daughter reported increased deficits with meat last week or two. Better oral clearing of very soft and puree items. Indicators of Pharyngeal Phase Dysfunction Pharyngeal Phase Pharyngeal: Clinically decreased laryngeal elevation on 1-2 swallows, improved on palpation with progression of trial. Occasional change in quality that improved with throat clear and a reswallow. Slight increase cough after straw drinks noted. Recommend use of no straws. Softer foods decreased overt pharyngeal deficits. Therapy Time CLAIMS PROCESSOR Individual Minutes Time In: 0956 Time Out: 1022 Minutes: 26 BRITTNY Mattson 01/18/2023 10:54 AM RT called and told that VBG was sent to lab and to go pick it up to run it. RT went to lab and VBG sample was not in heparin syringe. Attempted to call ED with no answer. Will need to be redrawn in correct syringe. documented in this encounter [facility] 01-26-2023 Note Formatting of this n ote might be different from the original. Patient has active discharge order in place. Patient to discharge to [facility] today. Communication Equipment Repairer set up transport for 11 am. Daughter Kayleigh notified. POLICY WRITER to send pasrr through [employer]. [facility] 01-26-2023 Note Formatting of this n ote might be different from the original. Patient has active discharge order in place. Patient to discharge to [facility] today. Communication Equipment Repairer set up transport for 11 am. Daughter Kayleigh notified. POLICY WRITER to send pasrr through [employer]. [facility] 01-25-2023 Plan of care note The patient is Moderately Stable - Low risk of patient condition declining or worsening The patient's goals for the shift include sleep The clinical goals for the shift include safety, no aspiration Problem: Knowledge Deficit Goal: Patient/family/caregiver demonstrates understanding of disease process, treatment plan, medications, and discharge instructions Outcome: Progressing Problem: Potential for Compromised Skin Integrity Goal: Skin Integrity is Maintained or Improved Outcome: Progressing Goal: Nutritional status is improving Outcome: Progressing Problem: Urinary Incontinence Goal: Perineal skin integrity is maintained or improved Outcome: Progressing Problem: Problem Interventions Goal: Assess Nutritional Intake Outcome: Progressing Goal: Dietary Supplements Outcome: Progressing Goal: Promote nutritional intake Outcome: Progressing [facility] 01-25-2023 Note Formatting of this n ote might be different from the original. Notified by [facility] that they are not willing to accept patient back at this time, daughter Kayleigh notified. I faxed over confidential line the therapy notes that was used for the insurance to deny SNF level of care to the [place]. Talked to daughter Kayleigh and stated I will request for therapy to re-evaluate on 01/26 and I will fax an appeal to [facility] [phone], reference number [id number] and will wait up to 72 hours for the appeal process do be either approved or denied. [facility] states they have a LTC bed available if the family is interested. The family will discuss possible move from the [place] and call me tomorrow with decision. Dr Stout updated. Transport discontinued and discharge held. [facility] 01-25-2023 Note Formatting of this n ote might be different from the original. Notified by [facility] that they are not willing to accept patient back at this time, gilmar Martell notified. I faxed over confidential line the therapy notes that was used for the insurance to deny SNF level of care to the [place]. Talked to daughter Kayleigh and stated I will request for therapy to re-evaluate on 01/26 and I will fax an appeal to [facility] [phone], reference number [id number] and will wait up to 72 hours for the appeal process do be either approved or denied. [facility] states they have a LTC bed available if the family is interested. The family will discuss possible move from the [place] and call me tomorrow with decision. Dr Stout updated. Transport discontinued and discharge held. [facility] 01-25-2023 Nurse Note Pt is heavy 2 assistance to chair. Inconsistent with prior PT notes. PT to re-evaluate tomorrow 01/26. [facility] 01-25-2023 Nurse Note Pt is heavy 2 assistance to chair. Inconsistent with prior PT notes. PT to re-evaluate tomorrow 01/26. documented in this encounter [facility] 01-25-2023 Note Formatting of this n ote might be different from the original. S/W, follow up TCC indicated patient needs transport to [facility]. Transport set via [facility] at 3p. Staff aware Patient placed on cot due to Dementia, Aox1-2, Cot for Safety. Family aware. Transport has been cancelled as AL not accepting patient back. [facility] 01-25-2023 Note Formatting of this n ote might be different from the original. S/W, follow up TCC indicated patient needs transport to [facility]. Transport set via [facility] at 3p. Staff aware Patient placed on cot due to Dementia, Aox1-2, Cot for Safety. Family aware. Transport has been cancelled as AL not accepting patient back. [facility] 04-06-2023 Plan of care note Problem: Knowledge Deficit Goal: Patient/family/caregiver demonstrates understanding of disease process, treatment plan, medications, and discharge instructions Outcome: Not Progressing Problem: Urinary Incontinence Goal: Perineal skin integrity is maintained or improved Outcome: Not Progressing The patient is Moderately Stable - Low risk of patient condition declining or worsening The patient's goals for the shift include Sleep The clinical goals for the shift include Safety, no aspiration Over the shift, the patient did not make progress toward the following goals. Barriers to progression include cognition. Recommendations to address these barriers include reorientation. Problem: Knowledge Deficit Goal: Patient/family/caregiver demonstrates understanding of disease process, treatment plan, medications, and discharge instructions Outcome: Not Progressing Problem: Urinary Incontinence Goal: Perineal skin integrity is maintained or improved Outcome: Not Progressing [facility] 01-25-2023 Note Formatting of this n ote might be different from the original. [facility] notified me that Remi is requesting a P2P today by noon. The phone number provided is option 4. Dr Stout notified via confidential message. [facility] states they got the call yesterday, but left message with the weekend TCC. Dr Stout notified me that she is in the office today seeing patients and is unable to complete the P2P. Call placed to Kayleigh Scott, daughter and explained that patient will return today to [facility]. Updated [facility] Aleshia to assist with setting up HHC at the facility. Kayleigh states she would like a ambulance transport to be set up. I explained that patient could be charged some out of pocket costs for the transport and she is verbalizes understanding and is agreeable with us setting up transport to the [place]. [facility] 01-25-2023 Note Formatting of this n ote might be different from the original. [facility] notified me that Remi is requesting a P2P today by noon. The phone number provided is option 4. Dr Stout notified via confidential message. [facility] states they got the call yesterday, but left message with the weekend TCC. Dr Stout notified me that she is in the office today seeing patients and is unable to complete the P2P. Call placed to Kayleigh Scott, daughter and explained that patient will return today to [facility] with HHC. Updated [facility] Aleshia to assist with setting up HHC at the facility. Kayleigh states she would like a ambulance transport to be set up. I explained that patient could be charged some out of pocket costs for the transport and she is verbalizes understanding and is agreeable with us setting up transport to the [place]. [facility] [employer] [facility] 01-25-2023 Plan of care note The patient is Moderately Stable - Low risk of patient condition declining or worsening The patient's goals for the shift include Sleep The clinical goals for the shift include Safety, no aspiration Over the shift, the patient did not make progress toward the following goals. Barriers to progression include dementia. Recommendations to address these barriers include reorientation and therapeutic communication. Problem: Knowledge Deficit Goal: Patient/family/caregiver demonstrates understanding of disease process, treatment plan, medications, and discharge instructions Outcome: Progressing Problem: Potential for Compromised Skin Integrity Goal: Skin Integrity is Maintained or Improved Outcome: Progressing Goal: Nutritional status is improving Outcome: Progressing Problem: Urinary Incontinence Goal: Perineal skin integrity is maintained or improved Outcome: Progressing Problem: Problem Interventions Goal: Assess Nutritional Intake Outcome: Progressing Goal: Dietary Supplements Outcome: Progressing Goal: Promote nutritional intake Outcome: Progressing [facility] 01-24-2023 Plan of care note The patient is Moderately Stable - Low risk of patient condition declining or worsening The patient's goals for the shift include Sleep. The clinical goals for the shift include Safety, no aspiration, assist with feed. Over the shift, the patient did not make progress toward the following goals. Barriers to progression include cognition. Recommendations to address these barriers include reorientation. Problem: Knowledge Deficit Goal: Patient/family/caregiver demonstrates understanding of disease process, treatment plan, medications, and discharge instructions 01/24/20231754 by Edis Palomino RN Outcome: Not Progressing 01/24/20231754 by Edis Palomino RN Outcome: Progressing Problem: Potential for Compromised Skin Integrity Goal: Skin Integrity is Maintained or Improved 01/24/20231754 by Edis Palomino RN Outcome: Not Progressing 01/24/20231754 by Edis Palomino RN Outcome: Progressing Goal: Nutritional status is improving 01/24/20231754 by Edis Palomino RN Outcome: Not Progressing 01/24/20231754 by Edis Palomino RN Outcome: Progressing Problem: Urinary Incontinence Goal: Perineal skin integrity is maintained or improved 01/24/20231754 by Edis Palomino RN Outcome: Not Progressing 01/24/20231754 by Edis Palomino RN Outcome: Progressing Problem: Problem Interventions Goal: Assess Nutritional Intake 01/24/20231754 by Edis Palomino RN Outcome: Not Progressing 01/24/20231754 by Edis Palomino RN Outcome: Progressing Goal: Dietary Supplements 01/24/20231754 by Edis Palomino RN Outcome: Not Progressing 01/24/20231754 by Edis Palomino RN Outcome: Progressing Goal: Promote nutritional intake 01/24/20231754 by Edis Palomino RN Outcome: Not Progressing 01/24/20231754 by Edis Palomino RN Outcome: Progressing [facility] 01-24-2023 Note Formatting of this n ote might be different from the original. Sent updated notes (PT/OT/Md) to [facility] via [employer] per TCC request. Await review and response regarding ability to accept. TCC notified. T [facility] 01-24-2023 Note Formatting of this n ote might be different from the original. Sent updated notes (PT/OT/Md) to [facility] via [employer] per TCC request. Await review and response regarding ability to accept. TCC notified. [facility] 01-24-2023 Note Formatting of this n ote might be different from the original. Patient Choice Patient Name: TITA KEITH Date of : 1935 All Providers Sent Referral Name: [facility] [employer] Address: [address] [place] [address] Name: [facility] Address: [address] [place] [address] Name: [facility] Phone: [phone] Address: [address] [place] [address] [facility] 01-24-2023 Note Formatting of this n ote might be different from the original. Patient Choice Patient Name: TITA KEITH Date of : 1935 All Providers Sent Referral Name: [facility] [employer] Address: [address] [place] [address] Name: [facility] Address: [address] [place] [address] Name: [facility] Phone: [phone] Address: [address] [place] [address] [facility] 01-24-2023 Note Formatting of this n ote is different from the original. Images from the original note were not included. Care Management Progress Note Patient medically stable for discharge today with active discharge in place since Monday 01/22. Medication management per medical team. Chronic silverio in place. Therapy seen on 01/23. [facility] requesting updated therapy notes. Request for SURFACE LAY OUT TECHNICIAN to send via [employer] today. Auth has been pending since 01/19 through [employer]. Hope to receive approval today. Discharge Milestones and Delays Expected Date/Time: 01/23/2023 Midday Disposition: [facility] Transport status: No current request Discharge Milestones Place discharge order Complete med reconciliation Request transport Case mgmt discharge readiness Expected Discharge History Expected Date/Time Set By Reviewed At 01/23/2023 Midday Kayleigh Stout DO 01/23/2023 8:21 AM 24-48 hours estimated, pending auth" 01/22/2023 Margarita Herrera RN 01/22/2023 11:13 AM 01/19/2023 Kayleigh Stout DO 01/19/2023 11:01 AM 01/20/2023 Afternoon Kayleigh Stout DO 01/19/2023 9:05 AM 01/20/2023 Kayleigh Stout DO 01/18/2023 3:40 PM 01/20/2023 Kayleigh Stout DO 01/17/2023 10:11 PM 01/19/2023 Janet Lomeli MD 01/17/2023 9:39 PM Length of Stay (Days): 0 GMLOS: No GMLOS Documented [facility] 01-24-2023 Note Formatting of this n ote is different from the original. Images from the original note were not included. Care Management Progress Note Patient medically stable for discharge today with active discharge in place since Monday 01/22. Medication management per medical team. Chronic silverio in place. Therapy seen on 01/23. [facility] requesting updated therapy notes. Request for SURFACE LAY OUT TECHNICIAN to send via [employer] today. Auth has been pending since 01/19 through [employer]. Hope to receive approval today. Discharge Milestones and Delays Expected Date/Time: 01/23/2023 Midday Disposition: [facility] Transport status: No current request Discharge Milestones Place discharge order Complete med reconciliation Request transport Case mgmt discharge readiness Expected Discharge History Expected Date/Time Set By Reviewed At 01/23/2023 Midday Kayleigh Stout, DO 01/23/2023 8:21 AM 24-48 hours estimated, pending auth" 01/22/2023 Margarita Herrera RN 01/22/2023 11:13 AM 01/19/2023 Kayleigh Stout, DO 01/19/2023 11:01 AM 01/20/2023 Afternoon Kayleigh Stout, DO 01/19/2023 9:05 AM 01/20/2023 Kayleigh Stout, DO 01/18/2023 3:40 PM 01/20/2023 Kayleigh Stout, DO 01/17/2023 10:11 PM 01/19/2023 Janet Lomeli MD 01/17/2023 9:39 PM Length of Stay (Days): 0 GMLOS: No GMLOS Documented [facility] 01-24-2023 Plan of care note The patient is Moderately Stable - Low risk of patient condition declining or worsening The patient's goals for the shift include Sleep The clinical goals for the shift include Safety, no aspiration Problem: Knowledge Deficit Goal: Patient/family/caregiver demonstrates understanding of disease process, treatment plan, medications, and discharge instructions Outcome: Progressing Problem: Potential for Compromised Skin Integrity Goal: Skin Integrity is Maintained or Improved Outcome: Progressing Goal: Nutritional status is improving Outcome: Progressing Problem: Urinary Incontinence Goal: Perineal skin integrity is maintained or improved Outcome: Progressing Problem: Problem Interventions Goal: Assess Nutritional Intake Outcome: Progressing Goal: Dietary Supplements Outcome: Progressing Goal: Promote nutritional intake Outcome: Progressing [facility] 01-23-2023 Note Formatting of this n ote might be different from the original. Spoke to Mckenzie with admissions today at [facility] and she states that insurance auth is still pending. Will continue to await approval/denial. Will update Dr Stout via confidential message. [facility] 01-23-2023 Note Formatting of this n ote might be different from the original. Spoke to Mckenzie with admissions today at [facility] and she states that insurance auth is still pending. Will continue to await approval/denial. Will update Dr Stout via confidential message. [facility] 01-22-2023 Plan of care note The patient is Moderately Stable - Low risk of patient condition declining or worsening The patient's goals for the shift include The clinical goals for the shift include stable blood glucose Problem: Knowledge Deficit Goal: Patient/family/caregiver demonstrates understanding of disease process, treatment plan, medications, and discharge instructions Outcome: Progressing Problem: Potential for Compromised Skin Integrity Goal: Skin Integrity is Maintained or Improved Outcome: Progressing Goal: Nutritional status is improving Outcome: Progressing Problem: Urinary Incontinence Goal: Perineal skin integrity is maintained or improved Outcome: Progressing Problem: Problem Interventions Goal: Assess Nutritional Intake Outcome: Progressing Goal: Dietary Supplements Outcome: Progressing Goal: Promote nutritional intake Outcome: Progressing [facility] 01-22-2023 Note Formatting of this n ote might be different from the original. S/W, follow up After Hours Forms placed on patient chart in the event insurance approval come back later today. PAS-ID completed in HENS T [facility] 01-22-2023 Note Formatting of this n ote might be different from the original. S/W, follow up After Hours Forms placed on patient chart in the event insurance approval come back later today. PAS-ID completed in HENS T [facility] 01-22-2023 Plan of care note Problem: Knowledge Deficit Goal: Patient/family/caregiver demonstrates understanding of disease process, treatment plan, medications, and discharge instructions Outcome: Progressing The patient is Moderately Stable - Low risk of patient condition declining or worsening The patient's goals for the shift include does not express needs. The clinical goals for the shift include safety. Over the shift, the patient did not make progress toward the following goals. Barriers to progression include cognition. T [facility] 01-22-2023 Procedure note Images from the original note were not included. SPEECH LANGUAGE PATHOLOGY MODIFIED BARIUM SWALLOW STUDY Patient Name: Tita Keith : 1935 Today's Date: 01/22/2023 Visit Info / [facility] ADMISSION DATE: 01/17/2023 ADMITTING DIAGNOSIS: has New onset type 2 diabetes mellitus (CMS/HCC) (HCC); Hyperosmolar hyperglycemic state (HHS) (HCC); Hyperglycemia; and Severe malnutrition (CMS/HCC) (HCC) on their problem list. General Information Ordering Physician: Dr. Kayleigh Stout MD Radiologist: Dr. Christiano Larson Date of Onset: 01/17/23 Type of Study: Initial MBS Current Diet Solid Consistency: Dysphagia Pureed (Dysphagia I) Current Diet Liquid Consistency: Mildly Thick ([place]) Patient complaints: Pt without complaints. Pt with intermittent coughing with po. Referring Diagnosis: Dysphagia, dementia, hyperglycemic Consistencies Administered: Dysphagia Pureed (Dysphagia I), [place] cup, Thin cup Procedure Method: Cup, Feed by clinician, Self feed Patient Position: Lateral Patient was referred for a to assess the efficiency of his swallow function, rule out aspiration and make recommendations regarding safe dietary consistencies, effective compensatory strategies, and safe eating environment. Past Medical History: Diagnosis Date Dementia (HCC) Diabetes mellitus (HCC) Hyperlipidemia Hypertension Past Surgical History: Procedure Laterality Date BACK SURGERY Subjective General Chart Reviewed: Yes Subjective Subjective: Pt alert and responsive. 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 Loss of bolus to the vallecula with all textures tested (thin, nectar via spoon, pudding) during attempt for swallow. Mild oral residuals after pudding and tongue base and palatal staining after liquids. Pharyngeal Phase: Pharyngeal Phase Pharyngeal: Moderate pharyngeal weakness-decreased tongue base retraction/pharyngeal constriction and epiglottic deflection-- Vellecular residuals with all-moderate thin, severe pudding, [id number] (difficulty to determine d/t unable to completely clear pudding prior to nectar). Pt does spontaneouly reswallow to assist with clearing, during reswallows transient spillage and accumulation on back of epiglottic falling and accumlating in laryngeal vestibule with eventual vocal cord penetration and anterior tracheal staining. Thicker liquids did not reduce residuals or aspiration risk. Greater vallecular reisduals and pharyngeal wall staing after pudding. Pt is at risk of aspiration with all textures. Suggest continue Palliative diet w/ strategies. Compensatory Swallowing Strategies Attempted: Alternate solids and liquids, Small bites/sips, Swallow 2 times per bite/sip, Upright as possible for all oral intake, No straws Postural Changes and/or Swallow Maneuvers Trialed: Upright Cervical Esophageal Phase: Upper Esophageal Screen Upper Esophageal Screen: Osteohytes throughout cervical spine. Non-contributary to swallowing function. Impression Pt demonstrated mild oral and moderate pharyngeal deficits related to disorganized oral transit, loss of bolus to pharynx prior to swallow. Pharyngeal deficits include reduced tongue base and pharyngeal constriction w/ incomplete epiglottic deflection resulting in vallecular and piriform residuals. Eventual laryngeal vestibule penetration and accumulation and eventual vocal cord penetration and tracheal aspiration trace amounts (accumulating). Swallowing function is suggestive of NPO with alternate feeds, however pt does have advanced dementia and is not appropriate for feeding tube (feeding tube does not improve quality of life, nor does it eliminate aspiration in dementia pts) Therefore recommend continue most lenient diet of minced and moist with thin liquids. Slow rate--to allow reswallows, alternate liquids after solid. Expectorate and clear at conclusion of meal to clear residuals as able. Plan & Recommendations Recommendations/Treatment: Recommendations/Treat Requires CLAIMS PROCESSOR Intervention: Yes Recommendations comment: Recommend Palliative diet of minced and moist diet with thin liquids. NO STRAWS, slow rate to allow reswallows. Pt is at RISK and will probably aspirate. D/C Recommendations: No follow up therapy recommended post discharge Solid consistency: Dysphagia Minced and Moist (Dysphagia II) Liquid consistency: Thin Liquid administration via: Cup Medication administration: Meds in puree Supervision: 1:1 Compensatory Swallowing Strategies : Small bites/sips, Swallow 2 times per bite/sip, Upright as possible for all oral intake Therapeutic Interventions: Therapeutic PO trials with CLAIMS PROCESSOR Education Given: diet recommendations Education Response: Needs reinforcement Prognosis: Prognosis Prognosis for safe diet advancement: fair Barriers to reach goals: cognitive deficits, age Barriers/Prognosis Comment: Pt is at risk for aspiration with pharyngeal residuals. Individuals consulted Consulted and agree with results and recommendations: Patient, Physician (Call/message to Call CLAIMS PROCESSOR left for pt's daughter.) The patient was educated regarding the general results and recommendations of this evaluation. Encounter Problems Encounter Problems (Active) Swallowing Patient will tolerate recommended food and liquid consistencies without clinical signs and symptoms of aspirations (Progressing) Start: 01/18/23 Expected End: 02/02/23 Patient will participate in instrumental assessment of swallowing as appropriate (Completed) Start: 01/18/23 Expected End: 02/02/23 Met: 01/22/23 Therapy Time CLAIMS PROCESSOR Individual Minutes Time In: 1005 Time Out: 1025 Minutes: 20 BRITTNY Mattson [facility] 01-22-2023 Procedure note Images from the original note were not included. SPEECH LANGUAGE PATHOLOGY MODIFIED BARIUM SWALLOW STUDY Patient Name: Tita Keith : 1935 Today's Date: 01/22/2023 Visit Info / [facility] ADMISSION DATE: 01/17/2023 ADMITTING DIAGNOSIS: has New onset type 2 diabetes mellitus (CMS/HCC) (HCC); Hyperosmolar hyperglycemic state (HHS) (HCC); Hyperglycemia; and Severe malnutrition (CMS/HCC) (HCC) on their problem list. General Information Ordering Physician: Dr. Kayleigh Stout MD Radiologist: Dr. Christiano Larson Date of Onset: 01/17/23 Type of Study: Initial MBS Current Diet Solid Consistency: Dysphagia Pureed (Dysphagia I) Current Diet Liquid Consistency: Mildly Thick ([place]) Patient complaints: Pt without complaints. Pt with intermittent coughing with po. Referring Diagnosis: Dysphagia, dementia, hyperglycemic Consistencies Administered: Dysphagia Pureed (Dysphagia I), [place] cup, Thin cup Procedure Method: Cup, Feed by clinician, Self feed Patient Position: Lateral Patient was referred for a to assess the efficiency of his swallow function, rule out aspiration and make recommendations regarding safe dietary consistencies, effective compensatory strategies, and safe eating environment. Past Medical History: Diagnosis Date Dementia (HCC) Diabetes mellitus (HCC) Hyperlipidemia Hypertension Past Surgical History: Procedure Laterality Date BACK SURGERY Subjective General Chart Reviewed: Yes Subjective Subjective: Pt alert and responsive. 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 Loss of bolus to the vallecula with all textures tested (thin, nectar via spoon, pudding) during attempt for swallow. Mild oral residuals after pudding and tongue base and palatal staining after liquids. Pharyngeal Phase: Pharyngeal Phase Pharyngeal: Moderate pharyngeal weakness-decreased tongue base retraction/pharyngeal constriction and epiglottic deflection-- Vellecular residuals with all-moderate thin, severe pudding, [id number] (difficulty to determine d/t unable to completely clear pudding prior to nectar). Pt does spontaneouly reswallow to assist with clearing, during reswallows transient spillage and accumulation on back of epiglottic falling and accumlating in laryngeal vestibule with eventual vocal cord penetration and anterior tracheal staining. Thicker liquids did not reduce residuals or aspiration risk. Greater vallecular reisduals and pharyngeal wall staing after pudding. Pt is at risk of aspiration with all textures. Suggest continue Palliative diet w/ strategies. Compensatory Swallowing Strategies Attempted: Alternate solids and liquids, Small bites/sips, Swallow 2 times per bite/sip, Upright as possible for all oral intake, No straws Postural Changes and/or Swallow Maneuvers Trialed: Upright Cervical Esophageal Phase: Upper Esophageal Screen Upper Esophageal Screen: Osteohytes throughout cervical spine. Non-contributary to swallowing function. Impression Pt demonstrated mild oral and moderate pharyngeal deficits related to disorganized oral transit, loss of bolus to pharynx prior to swallow. Pharyngeal deficits include reduced tongue base and pharyngeal constriction w/ incomplete epiglottic deflection resulting in vallecular and piriform residuals. Eventual laryngeal vestibule penetration and accumulation and eventual vocal cord penetration and tracheal aspiration trace amounts (accumulating). Swallowing function is suggestive of NPO with alternate feeds, however pt does have advanced dementia and is not appropriate for feeding tube (feeding tube does not improve quality of life, nor does it eliminate aspiration in dementia pts) Therefore recommend continue most lenient diet of minced and moist with thin liquids. Slow rate--to allow reswallows, alternate liquids after solid. Expectorate and clear at conclusion of meal to clear residuals as able. Plan & Recommendations Recommendations/Treatment: Recommendations/Treat Requires CLAIMS PROCESSOR Intervention: Yes Recommendations comment: Recommend Palliative diet of minced and moist diet with thin liquids. NO STRAWS, slow rate to allow reswallows. Pt is at RISK and will probably aspirate. D/C Recommendations: No follow up therapy recommended post discharge Solid consistency: Dysphagia Minced and Moist (Dysphagia II) Liquid consistency: Thin Liquid administration via: Cup Medication administration: Meds in puree Supervision: 1:1 Compensatory Swallowing Strategies : Small bites/sips, Swallow 2 times per bite/sip, Upright as possible for all oral intake Therapeutic Interventions: Therapeutic PO trials with CLAIMS PROCESSOR Education Given: diet recommendations Education Response: Needs reinforcement Prognosis: Prognosis Prognosis for safe diet advancement: fair Barriers to reach goals: cognitive deficits, age Barriers/Prognosis Comment: Pt is at risk for aspiration with pharyngeal residuals. Individuals consulted Consulted and agree with results and recommendations: Patient, Physician (Call/message to Call CLAIMS PROCESSOR left for pt's daughter.) The patient was educated regarding the general results and recommendations of this evaluation. Encounter Problems Encounter Problems (Active) Swallowing Patient will tolerate recommended food and liquid consistencies without clinical signs and symptoms of aspirations (Progressing) Start: 01/18/23 Expected End: 02/02/23 Patient will participate in instrumental assessment of swallowing as appropriate (Completed) Start: 01/18/23 Expected End: 02/02/23 Met: 01/22/23 Therapy Time CLAIMS PROCESSOR Individual Minutes Time In: 1005 Time Out: 1025 Minutes: 20 BRITTNY Mattson documented in this encounter [facility] 01-22-2023 Note Formatting of this n ote is different from the original. Images from the original note were not included. Care Management Progress Note Patient remains on [address] [place] today with generalized weakness, Hyperglycemia, improving. MBS today for difficulty, CLAIMS PROCESSOR following. Patient plans to discharge to [facility] with insurance authorization pending. Called and spoke to Mckenzie in Admissions today and she states auth is still pending. Discharge Milestones and Delays Expected Date/Time: 01/19/2023 Disposition: [facility] Discharge Milestones Place discharge order Complete med reconciliation Request transport Case mgmt discharge readiness Expected Discharge History Expected Date/Time Set By Reviewed At 01/19/2023 Kayleigh Stout DO 01/19/2023 11:01 AM 01/20/2023 Afternoon Kayleigh Stout DO 01/19/2023 9:05 AM 01/20/2023 Kayleigh Stout DO 01/18/2023 3:40 PM 01/20/2023 Kayleigh Stout DO 01/17/2023 10:11 PM 01/19/2023 Janet Lomeli MD 01/17/2023 9:39 PM Length of Stay (Days): 0 GMLOS: No GMLOS Documented [facility] 01-22-2023 Note Formatting of this n ote is different from the original. Images from the original note were not included. Care Management Progress Note Patient remains on [address] [place] today with generalized weakness, Hyperglycemia, improving. MBS today for difficulty, CLAIMS PROCESSOR following. Patient plans to discharge to [facility] with insurance authorization pending. Called and spoke to Mckenzie in Admissions today and she states auth is still pending. Discharge Milestones and Delays Expected Date/Time: 01/19/2023 Disposition: [facility] Discharge Milestones Place discharge order Complete med reconciliation Request transport Case mgmt discharge readiness Expected Discharge History Expected Date/Time Set By Reviewed At 01/19/2023 Kayleigh Stout, DO 01/19/2023 11:01 AM 01/20/2023 Afternoon Kayleigh Stout, DO 01/19/2023 9:05 AM 01/20/2023 Kayleigh Stout, DO 01/18/2023 3:40 PM 01/20/2023 Kayleigh Stout, DO 01/17/2023 10:11 PM 01/19/2023 Janet Lomeli MD 01/17/2023 9:39 PM Length of Stay (Days): 0 GMLOS: No GMLOS Documented [facility] 01-21-2023 Note Formatting of this n ote might be different from the original. Reviewed careport. NO authorization has been obtained a this time. Will update attending and primary care nurse if auth obtained over the weekend. [facility] 01-21-2023 Note Formatting of this n ote might be different from the original. Reviewed careport. NO authorization has been obtained a this time. Will update attending and primary care nurse if auth obtained over the weekend. [facility] 01-20-2023 Hospital Discharg e instructions Margarita Herrera RN - 01/19/2023 9:05 AM EDT Continuity of Care Form Patient Name: Tita Keith : 1935 Admit date: 01/17/2023 Discharge date: 01/26 Code Status Order: DNR-CCA Advance Directives: N Admitting Physician: Kayleigh Stout DO PCP: No primary care provider on file. Discharging Nurse: Sherry Discharging Hospital Unit/Room#: B4-460/B4-460 A Discharging Unit Phone Number: [phone] Emergency Contact: Extended Emergency Contact Information Primary Emergency Contact: SebastienKayleigh lester Mobile Relation: Child Secondary Emergency Contact: Mike Keith Mobile Relation: Child Past Surgical History: Past Surgical History: Procedure Laterality Date BACK SURGERY Immunization History: There is no immunization history for the selected administration types on file for this patient. Active Problems: Medical Problems Problem List * (Principal) Hyperosmolar hyperglycemic state (HHS) (HCC) New onset type 2 diabetes mellitus (CMS/HCC) (HCC) Isolation/Infection: No active isolations No active infections Nurse Assessment: Last Vital Signs: BP (!) 169/81 (BP Location: Right arm, Patient Position: Lying) Pulse 91 Temp 37.5 C (99.5 F) (Temporal) Resp 14 Ht 6' 2" (1.88 m) Wt 110 lb 14.3 oz (50.3 kg) SpO2 94% BMI 14.24 kg/m Last documented pain score (0-10 scale): Last Weight: Wt Readings from Last 1 Encounters: 01/17/23 110 lb 14.3 oz (50.3 kg) Mental Status: RON Patient Mental Status: disoriented and alert IV Access: RON IV Access: None Nursing Mobility/ADLs: Walking Total assistance Transfer Total assistance Bathing Minimal assistance Dressing Minimal assistance Toileting Minimal assistance Feeding Independent Garden Implement Mechanic Minimal assistance Med Delivery yes Wound Care Documentation and Therapy: Elimination: Continence: Bowel: no Bladder: no Urinary Catheter: None Colostomy/Ileostomy/Ileal Conduit: None Date of Last BM: unk Intake/Output Summary (Last 24 hours) at 01/19/2023 0905 Last data filed at 01/18/2023 2352 Gross per 24 hour Intake -- Output 250 ml Net -250 ml I/O last 3 completed shifts: In: - (0 mL/kg) Out: 250 (5 mL/kg) [Urine:250 (0.1 mL/kg/hr)] Weight: 50.3 kg Safety Concerns: history of falls (last 30 days), at risk for falls, and aspiration risk Impairments/Disabilities: speech Nutrition Therapy: Current Nutrition Therapy: Oral diet: dysphagia 2 mechanically altered and no straws Routes of Feeding: oral Liquids: thin liquids Daily Fluid Restriction: no Last Modified Barium Swallow with Video (Video Swallowing Test): done on 01/25 Treatments at the Time of Hospital Discharge: Respiratory Treatments: PRN Oxygen Therapy: is not on home oxygen therapy. Ventilator: No ventilator support Rehab Therapies: physical therapy, occupational therapy, and speech therapy Weight Bearing Status/Restrictions: no restriction Other Medical Equipment (for information only, NOT a DME order): none Other Treatments: NA Patient's personal belongings (please select all that are sent with patient): none RN SIGNATURE: MANAGEMENT/SOCIAL WORK SECTION Inpatient Status Date: 01/17/2023 Readmission Risk Assessment Score: @READMISSIONRISKDETAILS@ Discharging to Facility/ Agency Name: [facility] Address: [address] [place] [address] Fax: Dialysis Facility (if applicable) Name: Address: Dialysis Schedule: Phone: Fax: [employer] Cook Head/Sap Bobj Developer signature: ICIAN SECTION Prognosis: fair Condition at Discharge: stable Rehab Potential (if transferring to Rehab): fair Recommended Labs or Other Treatments After Discharge: none Physician Certification: I certify the above information and transfer of Tita Keith is necessary for the continuing treatment of the diagnosis listed and that he requires retirement facility for greater than 30 days. Update Admission H&P: No change in H&P PHYSICIAN SIGNATURE: documented in this encounter [facility] 01-20-2023 Miscellaneous Notes Patient has active discharge order in place. Patient to discharge to [facility] today. Communication Equipment Repairer set up transport for 11 am. Daughter Kayleigh notified. POLICY WRITER to send pasrr through [facility]. The patient is Moderately Stable - Low risk of patient condition declining or worsening The patient's goals for the shift include sleep The clinical goals for the shift include safety, no aspiration Problem: Knowledge Deficit Goal: Patient/family/caregiver demonstrates understanding of disease process, treatment plan, medications, and discharge instructions Outcome: Progressing Problem: Potential for Compromised Skin Integrity Goal: Skin Integrity is Maintained or Improved Outcome: Progressing Goal: Nutritional status is improving Outcome: Progressing Problem: Urinary Incontinence Goal: Perineal skin integrity is maintained or improved Outcome: Progressing Problem: Problem Interventions Goal: Assess Nutritional Intake Outcome: Progressing Goal: Dietary Supplements Outcome: Progressing Goal: Promote nutritional intake Outcome: Progressing Notified by [facility] that they are not willing to accept patient back at this time, gilmar Martell notified. I faxed over confidential line the therapy notes that was used for the insurance to deny SNF level of care to the [place]. Talked to gilmar Martell and stated I will request for therapy to re-evaluate on 01/26 and I will fax an appeal to [facility] [phone], reference number [id number] and will wait up to 72 hours for the appeal process do be either approved or denied. [facility] states they have a LTC bed available if the family is interested. The family will discuss possible move from the [facility] and call me tomorrow with decision. Dr Stout updated. Transport discontinued and discharge held. S/W, follow up TCC indicated patient needs transport to [facility]. Transport set via [facility] at 3p. Staff aware Patient placed on cot due to Dementia, Aox1-2, Cot for Safety. Family aware. Transport has been cancelled as AL not accepting patient back. Problem: Knowledge Deficit Goal: Patient/family/caregiver demonstrates understanding of disease process, treatment plan, medications, and discharge instructions Outcome: Not Progressing Problem: Urinary Incontinence Goal: Perineal skin integrity is maintained or improved Outcome: Not Progressing The patient is Moderately Stable - Low risk of patient condition declining or worsening The patient's goals for the shift include Sleep The clinical goals for the shift include Safety, no aspiration Over the shift, the patient did not make progress toward the following goals. Barriers to progression include cognition. Recommendations to address these barriers include reorientation. Problem: Knowledge Deficit Goal: Patient/family/caregiver demonstrates understanding of disease process, treatment plan, medications, and discharge instructions Outcome: Not Progressing Problem: Urinary Incontinence Goal: Perineal skin integrity is maintained or improved Outcome: Not Progressing [facility] notified me that Remi is requesting a P2P today by noon. The phone number provided is option 4. Dr Stout notified via confidential message. [facility] states they got the call yesterday, but left message with the weekend TCC. Dr Stout notified me that she is in the office today seeing patients and is unable to complete the P2P. Call placed to Kayleigh Scott, daughter and explained that patient will return today to [facility] with [facility] Aleshia to assist with setting up HHC at the facility. Kayleigh states she would like a ambulance transport to be set up. I explained that patient could be charged some out of pocket costs for the transport and she is verbalizes understanding and is agreeable with us setting up transport to the [facility]. The patient is Moderately Stable - Low risk of patient condition declining or worsening The patient's goals for the shift include Sleep The clinical goals for the shift include Safety, no aspiration Over the shift, the patient did not make progress toward the following goals. Barriers to progression include dementia. Recommendations to address these barriers include reorientation and therapeutic communication. Problem: Knowledge Deficit Goal: Patient/family/caregiver demonstrates understanding of disease process, treatment plan, medications, and discharge instructions Outcome: Progressing Problem: Potential for Compromised Skin Integrity Goal: Skin Integrity is Maintained or Improved Outcome: Progressing Goal: Nutritional status is improving Outcome: Progressing Problem: Urinary Incontinence Goal: Perineal skin integrity is maintained or improved Outcome: Progressing Problem: Problem Interventions Goal: Assess Nutritional Intake Outcome: Progressing Goal: Dietary Supplements Outcome: Progressing Goal: Promote nutritional intake Outcome: Progressing The patient is Moderately Stable - Low risk of patient condition declining or worsening The patient's goals for the shift include Sleep. The clinical goals for the shift include Safety, no aspiration, assist with feed. Over the shift, the patient did not make progress toward the following goals. Barriers to progression include cognition. Recommendations to address these barriers include reorientation. Problem: Knowledge Deficit Goal: Patient/family/caregiver demonstrates understanding of disease process, treatment plan, medications, and discharge instructions 01/24/20231754 by Edis Palomino RN Outcome: Not Progressing 01/24/20231754 by Edis Palomino RN Outcome: Progressing Problem: Potential for Compromised Skin Integrity Goal: Skin Integrity is Maintained or Improved 01/24/20231754 by Edis Palomino RN Outcome: Not Progressing 01/24/20231754 by Edis Palomino RN Outcome: Progressing Goal: Nutritional status is improving 01/24/20231754 by Edis Palomino RN Outcome: Not Progressing 01/24/20231754 by Edis Palomino RN Outcome: Progressing Problem: Urinary Incontinence Goal: Perineal skin integrity is maintained or improved 01/24/20231754 by Edis Palomino RN Outcome: Not Progressing 01/24/20231754 by Edis Palomino RN Outcome: Progressing Problem: Problem Interventions Goal: Assess Nutritional Intake 01/24/20231754 by Edsi Palomino RN Outcome: Not Progressing 01/24/20231754 by Edis Palomino RN Outcome: Progressing Goal: Dietary Supplements 01/24/20231754 by Edis Palomino RN Outcome: Not Progressing 01/24/20231754 by Edis Palomino RN Outcome: Progressing Goal: Promote nutritional intake 01/24/20231754 by Edis Palomino RN Outcome: Not Progressing 01/24/20231754 by Edis Palomino RN Outcome: Progressing Sent updated notes (PT/OT/Md) to [facility] per TCC request. Await review and response regarding ability to accept. TCC notified. Patient Choice Patient Name: TITA KEITH Date of : 1935 All Providers Sent Referral Name: [facility], [facility]. Address: [address] [id number] Name: [facility] Address: [address] [place], [place] [id number] Name: [facility] Phone: [phone] Address: [address] [id number] Images from the original note were not included. Care Management Progress Note Patient medically stable for discharge today with active discharge in place since Monday 01/22. Medication management per medical team. Chronic silverio in place. Therapy seen on 01/23. [facility] requesting updated therapy notes. Request for SURFACE LAY OUT TECHNICIAN to send via [facility] today. Auth has been pending since 01/19 through [employer]. Hope to receive approval today. Discharge Milestones and Delays Expected Date/Time: 01/23/2023 Midday Disposition: [facility] Facility Transport status: No current request Discharge Milestones Place discharge order Complete med reconciliation Request transport Case mgmt discharge readiness Expected Discharge History Expected Date/Time Set By Reviewed At 01/23/2023 Midday Kayleigh Stout DO 01/23/2023 8:21 AM 24-48 hours estimated, pending auth" 01/22/2023 Margarita Herrera RN 01/22/2023 11:13 AM 01/19/2023 Kayleigh Stout DO 01/19/2023 11:01 AM 01/20/2023 Afternoon Kayleigh Stout DO 01/19/2023 9:05 AM 01/20/2023 Kayleigh Stout DO 01/18/2023 3:40 PM 01/20/2023 Kayleigh Stout DO 01/17/2023 10:11 PM 01/19/2023 Janet Lomeli MD 01/17/2023 9:39 PM Length of Stay (Days): 0 GMLOS: No GMLOS Documented The patient is Moderately Stable - Low risk of patient condition declining or worsening The patient's goals for the shift include Sleep The clinical goals for the shift include Safety, no aspiration Problem: Knowledge Deficit Goal: Patient/family/caregiver demonstrates understanding of disease process, treatment plan, medications, and discharge instructions Outcome: Progressing Problem: Potential for Compromised Skin Integrity Goal: Skin Integrity is Maintained or Improved Outcome: Progressing Goal: Nutritional status is improving Outcome: Progressing Problem: Urinary Incontinence Goal: Perineal skin integrity is maintained or improved Outcome: Progressing Problem: Problem Interventions Goal: Assess Nutritional Intake Outcome: Progressing Goal: Dietary Supplements Outcome: Progressing Goal: Promote nutritional intake Outcome: Progressing Spoke to Mckenzie with admissions today at [facility] and she states that insurance auth is still pending. Will continue to await approval/denial. Will update Dr Stout via confidential message. The patient is Moderately Stable - Low risk of patient condition declining or worsening The patient's goals for the shift include The clinical goals for the shift include stable blood glucose Problem: Knowledge Deficit Goal: Patient/family/caregiver demonstrates understanding of disease process, treatment plan, medications, and discharge instructions Outcome: Progressing Problem: Potential for Compromised Skin Integrity Goal: Skin Integrity is Maintained or Improved Outcome: Progressing Goal: Nutritional status is improving Outcome: Progressing Problem: Urinary Incontinence Goal: Perineal skin integrity is maintained or improved Outcome: Progressing Problem: Problem Interventions Goal: Assess Nutritional Intake Outcome: Progressing Goal: Dietary Supplements Outcome: Progressing Goal: Promote nutritional intake Outcome: Progressing S/W, follow up After Hours Forms placed on patient chart in the event insurance approval come back later today. PAS-ID completed in [facility] Problem: Knowledge Deficit Goal: Patient/family/caregiver demonstrates understanding of disease process, treatment plan, medications, and discharge instructions Outcome: Progressing The patient is Moderately Stable - Low risk of patient condition declining or worsening The patient's goals for the shift include does not express needs. The clinical goals for the shift include safety. Over the shift, the patient did not make progress toward the following goals. Barriers to progression include cognition. Images from the original note were not included. Care Management Progress Note Patient remains on [address] today with generalized weakness, Hyperglycemia, improving. MBS today for difficulty, CLAIMS PROCESSOR following. Patient plans to discharge to [facility] with insurance authorization pending. Called and spoke to Mckenzie in Admissions today and she states auth is still pending. Discharge Milestones and Delays Expected Date/Time: 01/19/2023 Disposition: [facility] Discharge Milestones Place discharge order Complete med reconciliation Request transport Case mgmt discharge readiness Expected Discharge History Expected Date/Time Set By Reviewed At 01/19/2023 Kayleigh Stout DO 01/19/2023 11:01 AM 01/20/2023 Afternoon Kayleigh Stout DO 01/19/2023 9:05 AM 01/20/2023 Kayleigh Stout DO 01/18/2023 3:40 PM 01/20/2023 Kayleigh Stout DO 01/17/2023 10:11 PM 01/19/2023 Janet Lomeli MD 01/17/2023 9:39 PM Length of Stay (Days): 0 GMLOS: No GMLOS Documented Reviewed [place]. NO authorization has been obtained a this time. Will update attending and primary care nurse if auth obtained over the weekend. Reviewed careport. No authorization obtained. Did call and speak with Linh at [facility] [phone] and request that she call me if auth obtained.. [facility] are [facility] and that they are going to proceed with starting insurance authorization. Dr Stout notified via confidential message. Referral placed to [facility] via Careport per TCC request. Await review and response regarding ability to accept. TCC notified. Request for SURFACE LAY OUT TECHNICIAN to place referrals to [facility], [facility], and [facility]. Will wait for accepting facility to start insurance auth. Weekend TCC to be updated via Careport for possible weekend discharge. Tasked weekend therapy to request patient to have updated notes on Sunday via Careport. 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 representative/caregiver as indicated: Yes Confirmation of Payer with patient/family: Yes Payer Name: Aetna Medicare [place]: No Confirmation of Primary Care Physician: Confirmed PCP Name: Marj Plasencia Seen in last 2 years?: Yes Primary Caregiver: Other (Comment) (Staff at facility) If assistance needed, confirmed caregiver ready, willing and able to care for patient at discharge: Yes Confirmed with: AL staff at [facility] Living Arrangements Current Residence: (Assisted Living) Number of Floors 1 Number of Entry Steps: (Level Entry) Bed/Bath Levels: Both first floor Facility: Assisted Living Facility Name: [facility] in [place], [place] memory care Plan to Return: Yes (after rehab) Lives with: Alone Support Systems: apartment manager/marriage and family social worker, Family members, Children, Therapist Activities of Daily Living Ambulation: Assistance (baseline ambulates with device) Bathing/Dressing: Assistance Elimination/Continence/Toileting: Independent Feeding: Independent Who Assists with Activities of Daily Living: AL staff at facility Instrumental Activities of Daily Living Prescription Coverage: Yes Pharmacy Used: [facility] managed by medical staff at facility Medication Management: Assistance Type: Dose packaging system Who assists with medication securing and setup?: staff at facility Transportation/Shopping: Assistance Provider Transportation/Shopping Assistance Provider Name: Family/staff at facility Transportation Mode: Needs Assistance with Transportation at Discharge: Yes (Transport to be set up by [facility] for rehab) Meal Preparation: Assistance Provider Meal Prep Assistance Provider Name: staff at facility Laundry/Cleaning: Assistance Provider Laundry/Cleaning Assistance Provider Name: staff at facility Finances/Bill Paying: Assistance Provider Finances/Bill Payer Assistance Provider Name: Daughter/staff at facility Communication: Independent Types of Care Services/Equipment Utilized Care Services: Dialysis Type: Durable Medical Equipment: Rollator, Wheelchair (standard or power), Raised Toilet Seat, Shower Seat Patient's Goal/Discharge Plan Patient expects to be discharged to: SNF Vs Home with [facility] Discharge Planning Actions: Continue to follow, [facility] Facility referral indicated [place]: [place] discussed Patient's Choice Rights and [employer] and Collaborative Relationships Disclosed as Indicated for Post-Acute Care: Yes Interdisciplinary Team Engagement: PT/OT, Home Health Care Social Work Referral for: Additional Information: Patient is from [facility] with memory care. He at baseline uses a rollator/WC to ambulate. He has medical insurance with prescription coverage. Admitted for generalized weakness/falls. Reports of patient being non ambulatory. Difficulty swallowing, CLAIMS PROCESSOR seen and Dysphagia diet. Hyperglycemia, DM2. IVF. CT head neg. CXR neg. UA neg. Therapy recommending SNF. Called daughter to review discharge plan and possible need for rehab prior to returning to [facility]. I left contact information via confidential voice mail and awaiting return call. Margarita Herrera RN documented in this encounter [facility] 01-20-2023 Note Formatting of this n ote might be different from the original. Reviewed [facility]. No authorization obtained. Did call and speak with Linh at [facility] [phone] and request that she call me if auth obtained.. [facility] 01-20-2023 Note Formatting of this n ote might be different from the original. [facility]. No authorization obtained. Did call and speak with Linh at [facility] [phone] and request that she call me if auth obtained.. [facility] 01-19-2023 Note Formatting of this n ote might be different from the original. [facility] Mckenzie Dailey called today and stated they are willing to accept and that they are going to proceed with starting insurance authorization. Dr Stout notified via confidential message. [facility] 01-19-2023 Note Formatting of this n ote might be different from the original. [facility] and stated they are willing to accept and that they are going to proceed with starting insurance authorization. Dr Stout notified via confidential message. [facility] 01-19-2023 Note Formatting of this n ote might be different from the original. Referral placed to [facility] via Careport per TCC request. Await review and response regarding ability to accept. TCC notified. [facility] 01-19-2023 Note Formatting of this n ote might be different from the original. Referral placed to [facility] via Careport per TCC request. Await review and response regarding ability to accept. TCC notified. [facility] 01-19-2023 Note Formatting of this n ote might be different from the original. Request for SURFACE LAY OUT TECHNICIAN to place referrals to [facility], and [facility]. Will wait for accepting facility to start insurance auth. Weekend TCC to be updated via Careport for possible weekend discharge. Tasked weekend therapy to request patient to have updated notes on Sunday via Careport. [facility] 01-19-2023 Note Formatting of this n ote might be different from the original. Request for SURFACE LAY OUT TECHNICIAN to place referrals to [facility], and [facility]. Will wait for accepting facility to start insurance auth. Weekend TCC to be updated via Careport for possible weekend discharge. Tasked weekend therapy to request patient to have updated notes on Sunday via Careport. [facility] 01-19-2023 Note Formatting of this n ote might be different from the original. 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 representative/caregiver as indicated: Yes Confirmation of Payer with patient/family: Yes Payer Name: Remi Medicare [place]: No Confirmation of Primary Care Physician: Confirmed PCP Name: Marj Plasencia Seen in last 2 years?: Yes Primary Caregiver: Other (Comment) (Staff at facility) If assistance needed, confirmed caregiver ready, willing and able to care for patient at discharge: Yes Confirmed with: AL staff at [facility] Living Arrangements Current Residence: (Assisted Living) Number of Floors 1 Number of Entry Steps: (Level Entry) Bed/Bath Levels: Both first floor Facility: Assisted Living Facility Name: [facility] in [place], [place] memory care Plan to Return: Yes (after rehab) Lives with: Alone Support Systems: apartment manager/marriage and family social worker, Family members, Children, Therapist Activities of Daily Living Ambulation: Assistance (baseline ambulates with device) Bathing/Dressing: Assistance Elimination/Continence/Toileting: Independent Feeding: Independent Who Assists with Activities of Daily Living: AL staff at facility Instrumental Activities of Daily Living Prescription Coverage: Yes Pharmacy Used: [facility] managed by medical staff at facility Medication Management: Assistance Type: Dose packaging system Who assists with medication securing and setup?: staff at facility Transportation/Shopping: Assistance Provider Transportation/Shopping Assistance Provider Name: Family/staff at facility Transportation Mode: Needs Assistance with Transportation at Discharge: Yes (Transport to be set up by [facility] for rehab) Meal Preparation: Assistance Provider Meal Prep Assistance Provider Name: staff at facility Laundry/Cleaning: Assistance Provider Laundry/Cleaning Assistance Provider Name: staff at facility Finances/Bill Paying: Assistance Provider Finances/Bill Payer Assistance Provider Name: Daughter/staff at facility Communication: Independent Types of Care Services/Equipment Utilized Care Services: Dialysis Type: Durable Medical Equipment: Rollator, Wheelchair (standard or power), Raised Toilet Seat, Shower Seat Patient's Goal/Discharge Plan Patient expects to be discharged to: SNF Vs Home with [facility] Discharge Planning Actions: Continue to follow, [facility] Facility referral indicated [place] of choice: [place] discussed Patient's Choice Rights and [employer] and Collaborative Relationships Disclosed as Indicated for Post-Acute Care: Yes Interdisciplinary Team Engagement: PT/OT, Home Health Care Social Work Referral for: Additional Information: Patient is from [facility] with memory care. He at baseline uses a rollator/WC to ambulate. He has medical insurance with prescription coverage. Admitted for generalized weakness/falls. Reports of patient being non ambulatory. Difficulty swallowing, CLAIMS PROCESSOR seen and Dysphagia diet. Hyperglycemia, DM2. IVF. CT head neg. CXR neg. UA neg. Therapy recommending SNF. Called daughter to review discharge plan and possible need for rehab prior to returning to [facility]. I left contact information via confidential voice mail and awaiting return call. Margarita Herrera RN [facility] 01-19-2023 Note Formatting of this n ote might be different from the original. 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 representative/caregiver as indicated: Yes Confirmation of Payer with patient/family: Yes Payer Name: Remi Medicare : No Confirmation of Primary Care Physician: Confirmed PCP Name: Marj Plasencia Seen in last 2 years?: Yes Primary Caregiver: Other (Comment) (Staff at facility) If assistance needed, confirmed caregiver ready, willing and able to care for patient at discharge: Yes Confirmed with: AL staff at [facility] Living Arrangements Current Residence: (Assisted Living) Number of Floors 1 Number of Entry Steps: (Level Entry) Bed/Bath Levels: Both first floor Facility: Assisted Living Facility Name: [facility] in [place], [place] memory care Plan to Return: Yes (after rehab) Lives with: Alone Support Systems: apartment manager/marriage and family social worker, Family members, Children, Therapist Activities of Daily Living Ambulation: Assistance (baseline ambulates with device) Bathing/Dressing: Assistance Elimination/Continence/Toileting: Independent Feeding: Independent Who Assists with Activities of Daily Living: PA staff at facility Instrumental Activities of Daily Living Prescription Coverage: Yes Pharmacy Used: [facility] managed by medical staff at facility Medication Management: Assistance Type: Dose packaging system Who assists with medication securing and setup?: staff at facility Transportation/Shopping: Assistance Provider Transportation/Shopping Assistance Provider Name: Family/staff at facility Transportation Mode: Needs Assistance with Transportation at Discharge: Yes (Transport to be set up by [facility] for rehab) Meal Preparation: Assistance Provider Meal Prep Assistance Provider Name: staff at facility Laundry/Cleaning: Assistance Provider Laundry/Cleaning Assistance Provider Name: staff at facility Finances/Bill Paying: Assistance Provider Finances/Bill Payer Assistance Provider Name: Daughter/staff at facility Communication: Independent Types of Care Services/Equipment Utilized Care Services: Dialysis Type: Durable Medical Equipment: Rollator, Wheelchair (standard or power), Raised Toilet Seat, Shower Seat Patient's Goal/Discharge Plan Patient expects to be discharged to: SNF Vs Home with [facility] Discharge Planning Actions: Continue to follow, [facility] Facility referral indicated [place] of choice: [place] discussed Patient's Choice Rights and [employer] and Collaborative Relationships Disclosed as Indicated for Post-Acute Care: Yes Interdisciplinary Team Engagement: PT/OT, Home Health Care Social Work Referral for: Additional Information: Patient is from [facility] with memory care. He at baseline uses a rollator/WC to ambulate. He has medical insurance with prescription coverage. Admitted for generalized weakness/falls. Reports of patient being non ambulatory. Difficulty swallowing, CLAIMS PROCESSOR seen and Dysphagia diet. Hyperglycemia, DM2. IVF. CT head neg. CXR neg. UA neg. Therapy recommending SNF. Called daughter to review discharge plan and possible need for rehab prior to returning to [facility]. I left contact information via confidential voice mail and awaiting return call. Margarita Herrera RN [facility] 01-18-2023 Emergency department Note Pt found again undressed with all wires pulled off. Moved patient to a closer room to nurses station. Fela Jameson RN 01/18/23 1501 [facility] 01-18-2023 Emergency department Note Pt found again undressed with all wires pulled off. Moved patient to a closer room to nurses station. Fela Jameson RN 01/18/23 1501 Pt pulled male external catheter off himself by mistake. Provided patient with full bed change and new gown and pericare was performed. I did order lunch for patient and once it is here, will assist him with eating. New male external catheter was placed. No further concerns at this time. Fela Jameson RN 01/18/23 1236 Gave patient a small sip of water. Patient tolerated fairly well but did display some trouble swallowing. Will continue to hold PO mani, Dr. Stout informed. Fela Jameson RN 01/18/23 0832 Introduced myself to patient and explained role. On arrival into patient room with Shira WEBB patient was undressed and needed slid back up in bed. Adjusted patient correctly, provided new gown for patient and placed a new male external catheter. Patient bed in lowest position, side rails x2, call light within reach. Pt is AxOx1- only to himself and is unable to tell us his birthday. Fela Jameson RN 01/18/23 0739 This RN called and spoke with Dr Stout to advise that pt is unable to swallow pills. Per Dr Stout hold patients PO meds. Chelsie Kelley RN 01/18/23317 Patient was able to void. Shira James LPN 01/17/232119 Pt BGL was 577 on BGT machine. Confirmation drawn with patient initial bloodwork. Chelsie Kelley RN 01/17/232021 EMERGENCY DEPARTMENT ENCOUNTER Pt Name: Tita Keith Birthdate 1935 Date of evaluation: 01/17/2023 ED Provider: Janet Lomeli MD CHIEF COMPLAINT Chief Complaint Patient presents with Weakness, Gen Pt brought in by EMS from SNF for difficulty ambulating and difficulty swallowing. Per EMS the facility states that pt is usually up and ambulating but has now been in bed unable to get up. They also stated that they attempted to give him his pills last night and he choked on them. EMS states that pt BGL was registering HI on their BGT machine. Pt A&Ox1 baseline per EMS Dysphagia HISTORY OF PRESENT ILLNESS (Location/Symptom, Timing/Onset, Context/Setting, Quality, Duration, Modifying Factors, Severity) Note limiting factors. I wore appropriate PPE for the entirety of this encounter. HPI Tita Keith is a 87 y.o. male who presents to the emergency department with chief complaint of generalized weakness. He has a history of dementia, but is baseline oriented to what only. He comes from retirement facility. Reportedly at his facility the last couple days he has been overall weak and nonambulatory. He had an episode where he choked on his pills the other day. Facility called to bring a bed, when EMS arrived they noted a sugar that was high up a glucometer. In the ED, patient is oriented to self but otherwise does not answer questions appropriately. Noted recent falls, but per chart review he did have a fall on 01/05/2023 and was evaluated at that time. Nursing Notes were reviewed. Limitations to history: Dementia Outside historians: EMS REVIEW OF SYSTEMS Review of Systems Pertinent positives and negatives as per HPI. PAST MEDICAL HISTORY Past Medical History: Diagnosis Date Dementia (HCC) Diabetes mellitus (HCC) Hyperlipidemia Hypertension SURGICAL HISTORY Past Surgical History: Procedure Laterality Date BACK SURGERY CURRENT MEDICATIONS Previous Medications CEFUROXIME (CEFTIN) 250 MG TABLET Take 250 mg by mouth 2 times daily. For 10 days CHOLECALCIFEROL (VITAMIN D-3) 50 MCG (1999 UT) CAPSULE Take 2,000 Units by mouth. DOCUSATE SODIUM (COLACE) 100 MG CAPSULE Take 100 mg by mouth 2 times daily. INSULIN GLARGINE (LANTUS) 100 UNIT/ML PEN INJECT 8UNITS UNDER THE SKIN NIGHTLY INSULIN PEN NEEDLE 31G X 6 MM MISC USE TO INJECT LANTUS NIGHTLY LISINOPRIL 20 MG TABLET Take 20 mg by mouth daily. MIRTAZAPINE (REMERON) 15 MG TABLET Take 15 mg by mouth Nightly. QUETIAPINE (SEROQUEL) 25 MG TABLET TAKE 1 TABLET BY MOUTH NIGHTLY TAMSULOSIN (FLOMAX) 0.4 MG 24 HR CAPSULE Take 0.8 mg by mouth Nightly. ALLERGIES Patient has no known allergies. FAMILY HISTORY No family history on file. SOCIAL HISTORY Social History Socioeconomic History Marital status: Tobacco Use Smoking status: Never Smokeless tobacco: Never Substance and Sexual Activity Alcohol use: Not Currently Drug use: Never SCREENINGS PHYSICAL EXAM ED Triage Vitals Temp Pulse Resp BP -- -- -- -- SpO2 Temp src Heart Rate Source Patient Position -- -- -- -- BP Location FiO2 (%) -- -- Physical Exam Vitals and nursing note reviewed. Constitutional: General: He is not in acute distress. Appearance: He is well-developed. HENT: Head: Normocephalic and atraumatic. Mouth/Throat: Mouth: Mucous membranes are dry. Eyes: Conjunctiva/sclera: Conjunctivae normal. Cardiovascular: Rate and Rhythm: Normal rate and regular rhythm. Heart sounds: No murmur heard. Pulmonary: Effort: Pulmonary effort is normal. No respiratory distress. Breath sounds: Normal breath sounds. Abdominal: Palpations: Abdomen is soft. Tenderness: There is no abdominal tenderness. Musculoskeletal: General: No swelling. Cervical back: Neck supple. Skin: General: Skin is warm and dry. Capillary Refill: Capillary refill takes less than 2 seconds. Neurological: Mental Status: He is alert. He is disoriented. Motor: No weakness. Psychiatric: Mood and Affect: Mood normal. DIAGNOSTIC RESULTS Procedures/EKG: EKG was reviewed by myself. Physician EKG interpretation can be found in [facility] RADIOLOGY (Per Emergency Physician): Interpretation per the Radiologist below, if available at the time of this note: XR chest 1 view Final Result No acute cardiopulmonary process identified. Report Dictated on Electronically Signed By: Deniz Kelly Electronically Signed Date/Time: 01/17/2023 9:[address] head wo IV contrast Final Result 1. No acute intracranial process. 2. Global volume loss with small vessel ischemia. Report Dictated on Electronically Signed By: Iman Arriaga Electronically Signed Date/Time: 01/17/2023 8:59 PM EDT ED BEDSIDE ULTRASOUND: Performed by ED Physician - none LABS: Labs Reviewed CBC WITH AUTO DIFFERENTIAL - Abnormal Result Value Auto WBC 8.9 RBC 3.71 (*) Hemoglobin 11.0 (*) Hematocrit 33.3 (*) MCV 89.7 MCH 29.8 MCHC 33.2 RDW 13.4 Platelets 296 MPV 9.9 nRBC 0.2 Neutrophils Relative 82.0 (*) Lymphocytes Relative 10.0 (*) Monocytes Relative 6.9 Eosinophils Relative 0.6 (*) Basophils Relative 0.5 Neutrophils Absolute 7.3 (*) Lymphocytes Absolute 0.9 (*) Monocytes Absolute 0.6 Eosinophils Absolute 0.1 Basophils Absolute 0.0 COMPREHENSIVE METABOLIC PANEL - Abnormal SODIUM 131 (*) POTASSIUM 5.4 (*) CHLORIDE 99 CARBON DIOXIDE 28 ANION GAP 4 UREA NITROGEN 68 (*) CREATININE 1.77 (*) GLUCOSE 533 (*) CALCIUM 8.7 AST (SGOT) 45 ALT 31 ALKALINE PHOSPHATASE 103 ALBUMIN 3.2 (*) BILIRUBIN, TOTAL 0.6 TOTAL PROTEIN 6.6 eGFR 36.7 (*) Narrative: Specimen slightly hemolyzed please interpret with caution COMPLETE URINALYSIS - Abnormal Color, Urine Light Yellow Clarity, Urine Clear pH, Urine 5.0 Leukocytes, Urine Negative Nitrite, Urine Negative Protein, Urine 10 (*) Glucose, Urine >1,000 (*) Bilirubin, Urine Negative Ketones, Urine Negative Urobilinogen, Urine Normal Blood, Urine Negative RBC, Urine 0-2 WBC, Urine 0-2 Squamous Epithelial, Urine 0-2 Non-Squamous Epithalial Cells, Urine 0-2 (*) Bacteria, Urine Few (*) Mucus, Urine Few Amorphous Crystals, Urine Few (*) Hyaline Casts, Urine 0-2 (*) SPECIFIC GRAVITY OF URINE (NUMERIC) 1.020 POCT GLUCOSE METER UNSOLICITED RESULTS - Abnormal Glucose >450 (*) Narrative: Performed by: [facility], [address] [place] [address] CLIA ID: [id number] POCT VENOUS BLOOD GAS UNSOLICITED RESULTS - Abnormal pH, Venous 7.373 pCO2, Venous 48.8 pO2, Venous <29.6 (*) TCO2, Venous 29.9 (*) HCO3, Venous 28.4 (*) Base Excess, Venous 2.6 SO2, Venous 35.0 (*) FIO2 21 Narrative: Performed by: [facility], [address] [place] [address] CLIA ID: [id number] MANUAL DIFFERENTIAL - Abnormal Adjusted WBC 8.90 Polychromasia Rare (*) Ovalocytes Slight (*) Edy Cells Slight (*) WBC Morphology Normal PLT Morphology Normal TROPONIN I - Normal TROPONIN I 0.016 Narrative: Patients with high levels of Biotin oral intake (ie >5 mg/day) may have falsely decreased Troponin levels. LIPASE - Normal LIPASE 86 BETA HYDROXYBUTYRATE - Normal BETA HYDROXYBUTYRATE 1.16 COMPLETE URINALYSIS WITH REFLEX TO CULTURE Narrative: The following orders were created for panel order Urinalysis complete with reflex to Culture. Procedure Abnormality Status --------- ------ Complete Urinalysis[[id number]] Abnormal Final result Please view results for these tests on the individual orders. BLOOD GAS, VENOUS LACTIC ACID, PLASMA POCT GLUCOSE METER All other labs were within normal range or not returned as of this dictation. EMERGENCY DEPARTMENT COURSE and DIFFERENTIAL DIAGNOSIS/MDM: Vitals: Vitals: 01/17/23200501/17/232007 BP: 137/67 Pulse: 79 Resp: 16 Temp: 36.8 C (98.2 F) SpO2: 98% 99% ED Course as of 01/17/232148Jan 17, 20232107 CT head wo IV contrast IMPRESSION: 1. No acute intracranial process. 2. Global volume loss with small vessel ischemia. [MS] 2107 XR chest 1 view IMPRESSION: No acute cardiopulmonary process identified. [MS] 2130 GLUCOSE(!!): 533 [MS] ED Course User Index [MS] Janet Lomeli MD Diagnoses as of 01/17/232148 Hyperosmolar hyperglycemic state (HHS) (HCC) The patient presented with chief complaint of generalized weakness, dysphagia. The differential diagnosis associated with this patient's presentation includes infection, electrolyte abnormality, ACS, DKA versus HHS, dehydration, acute renal injury, acute intracranial process. Our workup consisted of ordering/reviewing: bloodwork, EKG, imaging. Patient is in agreement with this plan. 87-year-old male presents the ED as above, history physical exam as above. In the ED vitals within normal limits. Given his symptoms, most concerning for DKA versus HHS, will start with fluid hydration and reassess. Will discuss with patient's daughter when she arrives as well determine disposition based off diagnostic testing. [id number] glucose is 450. Medications sodium chloride 0.9 % bolus 1,000 mL (1,000 mL IntraVENous New Bag 01/17/232140) sodium chloride 0.9 % bolus 2,000 mL (has no administration in time range) sodium chloride 0.9 % infusion (has no administration in time range) REVAL: Work with evidence of HHS. His sugar is 533, no anion gap, no ketosis. His bicarb is 28. Urine does show sugar but no infection. Remainder of blood work is pending. He is given 3 L IV fluids here, chest x-ray and CT head are unremarkable, aside from global atrophy. Discussed with admitting doctor who is comfortable with admission at, she states she will continue with IV fluid hydration and likely subcu insulin. Patient is stable at time of admission, please see inpatient documentation for continuity of care. CRITICAL CARE TIME None CONSULTS: None PROCEDURES: Unless otherwise noted below, none Procedures FINAL IMPRESSION 1. Hyperosmolar hyperglycemic state (HHS) (HCC) DISPOSITION Admit 01/17/2023 09:39:41 PM PATIENT REFERRED TO: No follow-up provider specified. DISCHARGE MEDICATIONS: New Prescriptions No medications on file (Comment: Please note this report has been produced using speech recognition software and may contain errors related to that system including errors in grammar, punctuation, and spelling, as well as words and phrases that may be inappropriate. If there are any questions or concerns please feel free to contact the dictating provider for clarification.) Janet Lomeli MD (electronically signed) Emergency Medicine Provider Janet Lomeli MD Resident 01/17/232148 Emergency Department Encounter [facility] ED Patient: Tita Keith : 1935 Date of Evaluation: 01/17/2023 ED Supervising Physician: Karel Ghosh DO I independently examined and evaluated Tita Keith. This will serve as my Supervisory note as the spinning bath person of record and shared attestation. I did perform a substantive portion of the visit including all aspects of the Medical Decision Making. I wore appropriate PPE for the entirety of this encounter. In brief, Tita Keith is a 87 y.o. male that presents to the emergency department with generalized weakness, confusion symptoms over the past few weeks progressively worsening. Daughter at bedside helps provide history. Focused exam: No facial asymmetry, moving extremities x4, sensation in extremities x4. Brief ED course/MDM: MDM The patient presented with chief complaint of confusion, generalized weakness. The patient appears well, no acute distress, neurologic exam is nonfocal. The differential diagnosis associated with this patient's presentation includes electrolyte abnormality, hyperglycemia, intracranial hemorrhage, UTI. Our workup consisted of ordering/reviewing: CT head, chest x-ray, CBC, BMP, beta hydroxybutyrate troponin, VBG To aid in management, I performed an independent interpretation of all laboratory tests, EKG, imaging, and other diagnostics ordered. I discussed their care with admitting physician Results reveal markedly elevated glucose, normal bicarb, normal anion gap, normal pH. Findings consistent with HHS. The patient was given 3 L normal saline bolus, started on maintenance fluids. No insulin at this time due to caution of overcorrection. The patient will be admitted for further monitoring and evaluation. Patient's care was impacted by Diabetes, Hypertension, and dementia . All diagnostic, treatment, and disposition decisions were made by myself in conjunction with the Resident. I also supervised mcmahon portions of any procedures performed by the Resident. For all further details of the patient's emergency department visit, please see their documentation. (Comment: Please note this report has been produced using speech recognition software and may contain errors related to that system including errors in grammar, punctuation, and spelling, as well as words and phrases that may be inappropriate. If there are any questions or concerns please feel free to contact the dictating provider for clarification.) Karel Ghosh DO [facility] Karel Ghosh DO 01/17/232141 Bed: 15 Expected date: Expected time: Means of arrival: Comments: Latasha Chelsie Kelley RN 01/17/231954 Bed: 16 Expected date: Expected time: Means of arrival: Comments: Room 15 Chelsie Kelley RN 01/17/232134 documented in this encounter [facility] 01-18-2023 Emergency department Note Pt pulled male external catheter off himself by mistake. Provided patient with full bed change and new gown and pericare was performed. I did order lunch for patient and once it is here, will assist him with eating. New male external catheter was placed. No further concerns at this time. Fela Jameson RN 01/18/23 1667 [facility] 01-18-2023 History and physical note Department of Family Medicine Attending History and Physical CHIEF COMPLAINT: generalized weakness Reason for Admission: hyperglycemia History Obtained From: patient History of Present Illness Tita Keith is a 87 y.o. male who presents to the emergency department with chief complaint of generalized weakness. He has a history of dementia, but is baseline oriented to what only. He comes from retirement facility. Reportedly at his facility the last couple days he has been overall weak and nonambulatory. He had an episode where he choked on his pills the other day. Facility called to bring a bed, when EMS arrived they noted a sugar that was high up a glucometer. In the ED, patient is oriented to self but otherwise does not answer questions appropriately. Noted recent falls, but per chart review he did have a fall on 01/05/2023 and was evaluated at that time. His sugar is much better this am. He is still having issues with swallowing and speech is to see him daughter is at the bedside questions answered. Past Medical History: Past Medical History: Diagnosis Date Dementia (HCC) Diabetes mellitus (HCC) Hyperlipidemia Hypertension Past Surgical History: Past Surgical History: Procedure Laterality Date BACK SURGERY Medications Prior to Admission: (Not in a hospital admission) Allergies: Patient has no known allergies. Social History: Social History Socioeconomic History Marital status: Tobacco Use Smoking status: Never Smokeless tobacco: Never Substance and Sexual Activity Alcohol use: Not Currently Drug use: Never Family History: No family history on file. REVIEW OF SYSTEMS: Review of Systems 10 point ros negative except for hpi Objective Vitals: BP 133/71 (BP Location: Left arm, Patient Position: Sitting) Pulse 71 Temp 36.8 C (98.2 F) (Temporal) Resp 18 Ht 1.88 m (6' 2") Wt 50.3 kg (110 lb 14.3 oz) SpO2 95% BMI 14.24 kg/m Physical Exam Pt is alert and oriented x 2 Heent wnl Heart regular Lungs ctab Abd benign Ext no edema Assessment/Plan Patient Active Problem List Diagnosis New onset type 2 diabetes mellitus (CMS/HCC) (HCC) Hyperosmolar hyperglycemic state (HHS) (HCC) DM 2 with hyperglycemia Dysphagia HTN HPL Plan Admit to [facility] floor Cover with ssi Speech geni Pt/ot geni STOUT DO 03/30/23 9:27 AM T [facility] 01-18-2023 History and physical note Department of Family Medicine Attending History and Physical CHIEF COMPLAINT: generalized weakness Reason for Admission: hyperglycemia History Obtained From: patient History of Present Illness Tita Keith is a 87 y.o. male who presents to the emergency department with chief complaint of generalized weakness. He has a history of dementia, but is baseline oriented to what only. He comes from retirement facility. Reportedly at his facility the last couple days he has been overall weak and nonambulatory. He had an episode where he choked on his pills the other day. Facility called to bring a bed, when EMS arrived they noted a sugar that was high up a glucometer. In the ED, patient is oriented to self but otherwise does not answer questions appropriately. Noted recent falls, but per chart review he did have a fall on 01/05/2023 and was evaluated at that time. His sugar is much better this am. He is still having issues with swallowing and speech is to see him daughter is at the bedside questions answered. Past Medical History: Past Medical History: Diagnosis Date Dementia (HCC) Diabetes mellitus (HCC) Hyperlipidemia Hypertension Past Surgical History: Past Surgical History: Procedure Laterality Date BACK SURGERY Medications Prior to Admission: (Not in a hospital admission) Allergies: Patient has no known allergies. Social History: Social History Socioeconomic History Marital status: Tobacco Use Smoking status: Never Smokeless tobacco: Never Substance and Sexual Activity Alcohol use: Not Currently Drug use: Never Family History: No family history on file. REVIEW OF SYSTEMS: Review of Systems 10 point ros negative except for hpi Objective Vitals: BP 133/71 (BP Location: Left arm, Patient Position: Sitting) Pulse 71 Temp 36.8 C (98.2 F) (Temporal) Resp 18 Ht 1.88 m (6' 2") Wt 50.3 kg (110 lb 14.3 oz) SpO2 95% BMI 14.24 kg/m Physical Exam Pt is alert and oriented x 2 Heent wnl Heart regular Lungs ctab Abd benign Ext no edema Assessment/Plan Patient Active Problem List Diagnosis New onset type 2 diabetes mellitus (CMS/HCC) (HCC) Hyperosmolar hyperglycemic state (HHS) (HCC) DM 2 with hyperglycemia Dysphagia HTN HPL Plan Admit to med floor Cover with ssi Speech eval Pt/ot eval AKYLEIGH STOUT DO 01/18/23 9:27 AM documented in this encounter [facility] 01-18-2023 Emergency department Note Gave patient a small sip of water. Patient tolerated fairly well but did display some trouble swallowing. Will continue to hold PO meds, Dr. Stout informed. Fela Jameson RN 01/18/23 0832 [facility] 01-18-2023 Emergency department Note Introduced myself to patient and explained role. On arrival into patient room with Shira WEBB patient was undressed and needed slid back up in bed. Adjusted patient correctly, provided new gown for patient and placed a new male external catheter. Patient bed in lowest position, side rails x2, call light within reach. Pt is AxOx1- only to himself and is unable to tell us his birthday. Fela Jameson RN 01/18/23 0739 [facility] 01-17-2023 Emergency department Note This RN called and spoke with Dr Stout to advise that pt is unable to swallow pills. Per Dr Stout hold patients PO meds. Chelsie Kelley RN 01/18/235 [facility] 01-17-2023 Emergency department Note Patient was able to void. Shira James LPN 01/17/232119 [facility] 01-17-2023 Emergency department Note Pt BGL was 577 on BGT machine. Confirmation drawn with patient initial bloodwork. Chelsie Kelley RN 01/17/232021 [facility] 01-17-2023 Emergency department Note Bed: 15 Expected date: Expected time: Means of arrival: Comments: Latasha Kelley RN 01/17/231954 [facility] 01-17-2023 Emergency department Note Bed: 16 Expected date: Expected time: Means of arrival: Comments: Room 15 Chelsie Kelley RN 01/17/232134 [facility] 01-17-2023 Physician Emergency department Note EMERGENCY DEPARTMENT ENCOUNTER Pt Name: Tita Keith Birthdate 1935 Date of evaluation: 01/17/2023 ED Provider: Janet Lomeli MD CHIEF COMPLAINT Chief Complaint Patient presents with Weakness, Gen Pt brought in by EMS from SNF for difficulty ambulating and difficulty swallowing. Per EMS the facility states that pt is usually up and ambulating but has now been in bed unable to get up. They also stated that they attempted to give him his pills last night and he choked on them. EMS states that pt BGL was registering HI on their BGT machine. Pt A&Ox1 baseline per EMS Dysphagia HISTORY OF PRESENT ILLNESS (Location/Symptom, Timing/Onset, Context/Setting, Quality, Duration, Modifying Factors, Severity) Note limiting factors. I wore appropriate PPE for the entirety of this encounter. HPI Tita Keith is a 87 y.o. male who presents to the emergency department with chief complaint of generalized weakness. He has a history of dementia, but is baseline oriented to what only. He comes from retirement facility. Reportedly at his facility the last couple days he has been overall weak and nonambulatory. He had an episode where he choked on his pills the other day. Facility called to bring a bed, when EMS arrived they noted a sugar that was high up a glucometer. In the ED, patient is oriented to self but otherwise does not answer questions appropriately. Noted recent falls, but per chart review he did have a fall on 01/05/2023 and was evaluated at that time. Nursing Notes were reviewed. Limitations to history: Dementia Outside historians: EMS REVIEW OF SYSTEMS Review of Systems Pertinent positives and negatives as per HPI. PAST MEDICAL HISTORY Past Medical History: Diagnosis Date Dementia (HCC) Diabetes mellitus (HCC) Hyperlipidemia Hypertension SURGICAL HISTORY Past Surgical History: Procedure Laterality Date BACK SURGERY CURRENT MEDICATIONS Previous Medications CEFUROXIME (CEFTIN) 250 MG TABLET Take 250 mg by mouth 2 times daily. For 10 days CHOLECALCIFEROL (VITAMIN D-3) 50 MCG (2000 UT) CAPSULE Take 2,000 Units by mouth. DOCUSATE SODIUM (COLACE) 100 MG CAPSULE Take 100 mg by mouth 2 times daily. INSULIN GLARGINE (LANTUS) 100 UNIT/ML PEN INJECT 8UNITS UNDER THE SKIN NIGHTLY INSULIN PEN NEEDLE 31G X 6 MM MISC USE TO INJECT LANTUS NIGHTLY LISINOPRIL 20 MG TABLET Take 20 mg by mouth daily. MIRTAZAPINE (REMERON) 15 MG TABLET Take 15 mg by mouth Nightly. QUETIAPINE (SEROQUEL) 25 MG TABLET TAKE 1 TABLET BY MOUTH NIGHTLY TAMSULOSIN (FLOMAX) 0.4 MG 24 HR CAPSULE Take 0.8 mg by mouth Nightly. ALLERGIES Patient has no known allergies. FAMILY HISTORY No family history on file. SOCIAL HISTORY Social History Socioeconomic History Marital status: Tobacco Use Smoking status: Never Smokeless tobacco: Never Substance and Sexual Activity Alcohol use: Not Currently Drug use: Never SCREENINGS PHYSICAL EXAM ED Triage Vitals Temp Pulse Resp BP -- -- -- -- SpO2 Temp src Heart Rate Source Patient Position -- -- -- -- BP Location FiO2 (%) -- -- Physical Exam Vitals and nursing note reviewed. Constitutional: General: He is not in acute distress. Appearance: He is well-developed. HENT: Head: Normocephalic and atraumatic. Mouth/Throat: Mouth: Mucous membranes are dry. Eyes: Conjunctiva/sclera: Conjunctivae normal. Cardiovascular: Rate and Rhythm: Normal rate and regular rhythm. Heart sounds: No murmur heard. Pulmonary: Effort: Pulmonary effort is normal. No respiratory distress. Breath sounds: Normal breath sounds. Abdominal: Palpations: Abdomen is soft. Tenderness: There is no abdominal tenderness. Musculoskeletal: General: No swelling. Cervical back: Neck supple. Skin: General: Skin is warm and dry. Capillary Refill: Capillary refill takes less than 2 seconds. Neurological: Mental Status: He is alert. He is disoriented. Motor: No weakness. Psychiatric: Mood and Affect: Mood normal. DIAGNOSTIC RESULTS Procedures/EKG: EKG was reviewed by myself. [facility] RADIOLOGY (Per Emergency Physician): Interpretation per the Radiologist below, if available at the time of this note: XR chest 1 view Final Result No acute cardiopulmonary process identified. Report Dictated on Electronically Signed By: Deniz Kelly Electronically Signed Date/Time: 01/17/2023 9:[address] head wo IV contrast Final Result 1. No acute intracranial process. 2. Global volume loss with small vessel ischemia. Report Dictated on Electronically Signed By: Iman Arriaga Electronically Signed Date/Time: 01/17/2023 8:59 PM EDT ED BEDSIDE ULTRASOUND: Performed by ED Physician - none LABS: Labs Reviewed CBC WITH AUTO DIFFERENTIAL - Abnormal Result Value Auto WBC 8.9 RBC 3.71 (*) Hemoglobin 11.0 (*) Hematocrit 33.3 (*) MCV 89.7 MCH 29.8 MCHC 33.2 RDW 13.4 Platelets 296 MPV 9.9 nRBC 0.2 Neutrophils Relative 82.0 (*) Lymphocytes Relative 10.0 (*) Monocytes Relative 6.9 Eosinophils Relative 0.6 (*) Basophils Relative 0.5 Neutrophils Absolute 7.3 (*) Lymphocytes Absolute 0.9 (*) Monocytes Absolute 0.6 Eosinophils Absolute 0.1 Basophils Absolute 0.0 COMPREHENSIVE METABOLIC PANEL - Abnormal SODIUM 131 (*) POTASSIUM 5.4 (*) CHLORIDE 99 CARBON DIOXIDE 28 ANION GAP 4 UREA NITROGEN 68 (*) CREATININE 1.77 (*) GLUCOSE 533 (*) CALCIUM 8.7 AST (SGOT) 45 ALT 31 ALKALINE PHOSPHATASE 103 ALBUMIN 3.2 (*) BILIRUBIN, TOTAL 0.6 TOTAL PROTEIN 6.6 eGFR 36.7 (*) Narrative: Specimen slightly hemolyzed please interpret with caution COMPLETE URINALYSIS - Abnormal Color, Urine Light Yellow Clarity, Urine Clear pH, Urine 5.0 Leukocytes, Urine Negative Nitrite, Urine Negative Protein, Urine 10 (*) Glucose, Urine >1,000 (*) Bilirubin, Urine Negative Ketones, Urine Negative Urobilinogen, Urine Normal Blood, Urine Negative RBC, Urine 0-2 WBC, Urine 0-2 Squamous Epithelial, Urine 0-2 Non-Squamous Epithalial Cells, Urine 0-2 (*) Bacteria, Urine Few (*) Mucus, Urine Few Amorphous Crystals, Urine Few (*) Hyaline Casts, Urine 0-2 (*) SPECIFIC GRAVITY OF URINE (NUMERIC) 1.020 POCT GLUCOSE METER UNSOLICITED RESULTS - Abnormal Glucose >450 (*) Narrative: Performed by: [facility], [address] [place] [address] CLIA ID: [id number] POCT VENOUS BLOOD GAS UNSOLICITED RESULTS - Abnormal pH, Venous 7.373 pCO2, Venous 48.8 pO2, Venous <29.6 (*) TCO2, Venous 29.9 (*) HCO3, Venous 28.4 (*) Base Excess, Venous 2.6 SO2, Venous 35.0 (*) FIO2 21 Narrative: Performed by: [facility], [address] [place] [address] CLIA ID: [id number] MANUAL DIFFERENTIAL - Abnormal Adjusted WBC 8.90 Polychromasia Rare (*) Ovalocytes Slight (*) Edy Cells Slight (*) WBC Morphology Normal PLT Morphology Normal TROPONIN I - Normal TROPONIN I 0.016 Narrative: Patients with high levels of Biotin oral intake (ie >5 mg/day) may have falsely decreased Troponin levels. LIPASE - Normal LIPASE 86 BETA HYDROXYBUTYRATE - Normal BETA HYDROXYBUTYRATE 1.16 COMPLETE URINALYSIS WITH REFLEX TO CULTURE Narrative: The following orders were created for panel order Urinalysis complete with reflex to Culture. Procedure Abnormality Status --------- ------ Complete Urinalysis[[id number]] Abnormal Final result Please view results for these tests on the individual orders. BLOOD GAS, VENOUS LACTIC ACID, PLASMA POCT GLUCOSE METER All other labs were within normal range or not returned as of this dictation. EMERGENCY DEPARTMENT COURSE and DIFFERENTIAL DIAGNOSIS/MDM: Vitals: Vitals: 01/17/23200501/17/232007 BP: 137/67 Pulse: 79 Resp: 16 Temp: 36.8 C (98.2 F) SpO2: 98% 99% ED Course as of 01/17/232148Jan 17, 20232107 CT head wo IV contrast IMPRESSION: 1. No acute intracranial process. 2. Global volume loss with small vessel ischemia. [MS] 2107 XR chest 1 view IMPRESSION: No acute cardiopulmonary process identified. [MS] 2130 GLUCOSE(!!): 533 [MS] ED Course User Index [MS] Janet Lomeli MD Diagnoses as of 01/17/232148 Hyperosmolar hyperglycemic state (HHS) (HCC) The patient presented with chief complaint of generalized weakness, dysphagia. The differential diagnosis associated with this patient's presentation includes infection, electrolyte abnormality, ACS, DKA versus HHS, dehydration, acute renal injury, acute intracranial process. Our workup consisted of ordering/reviewing: bloodwork, EKG, imaging. Patient is in agreement with this plan. 87-year-old male presents the ED as above, history physical exam as above. In the ED vitals within normal limits. Given his symptoms, most concerning for DKA versus HHS, will start with fluid hydration and reassess. Will discuss with patient's daughter when she arrives as well determine disposition based off diagnostic testing. [id number] glucose is 450. Medications sodium chloride 0.9 % bolus 1,000 mL (1,000 mL IntraVENous New Bag 01/17/232140) sodium chloride 0.9 % bolus 2,000 mL (has no administration in time range) sodium chloride 0.9 % infusion (has no administration in time range) REVAL: Work with evidence of HHS. His sugar is 533, no anion gap, no ketosis. His bicarb is 28. Urine does show sugar but no infection. Remainder of blood work is pending. He is given 3 L IV fluids here, chest x-ray and CT head are unremarkable, aside from global atrophy. Discussed with admitting doctor who is comfortable with admission at, she states she will continue with IV fluid hydration and likely subcu insulin. Patient is stable at time of admission, please see inpatient documentation for continuity of care. CRITICAL CARE TIME None CONSULTS: None PROCEDURES: Unless otherwise noted below, none Procedures FINAL IMPRESSION 1. Hyperosmolar hyperglycemic state (HHS) ([facility]) DISPOSITION Admit 01/17/2023 09:39:41 PM PATIENT REFERRED TO: No follow-up provider specified. DISCHARGE MEDICATIONS: New Prescriptions No medications on file (Comment: Please note this report has been produced using speech recognition software and may contain errors related to that system including errors in grammar, punctuation, and spelling, as well as words and phrases that may be inappropriate. If there are any questions or concerns please feel free to contact the dictating provider for clarification.) Janet Lomeli MD (electronically signed) Emergency Medicine Provider Janet Lomeli MD Resident 01/17/232148 [facility] 01-17-2023 Physician Emergency department Note Emergency Department Encounter [facility] ED Patient: Tita Keith : 1935 Date of Evaluation: 01/17/2023 ED Supervising Physician: Karel Ghosh DO I independently examined and evaluated Tita Keith. This will serve as my Supervisory note as the spinning bath person of record and shared attestation. I did perform a substantive portion of the visit including all aspects of the Medical Decision Making. I wore appropriate PPE for the entirety of this encounter. In brief, Tita Keith is a 87 y.o. male that presents to the emergency department with generalized weakness, confusion symptoms over the past few weeks progressively worsening. Daughter at bedside helps provide history. Focused exam: No facial asymmetry, moving extremities x4, sensation in extremities x4. Brief ED course/MDM: MDM The patient presented with chief complaint of confusion, generalized weakness. The patient appears well, no acute distress, neurologic exam is nonfocal. The differential diagnosis associated with this patient's presentation includes electrolyte abnormality, hyperglycemia, intracranial hemorrhage, UTI. Our workup consisted of ordering/reviewing: CT head, chest x-ray, CBC, BMP, beta hydroxybutyrate troponin, VBG To aid in management, I performed an independent interpretation of all laboratory tests, EKG, imaging, and other diagnostics ordered. I discussed their care with admitting physician Results reveal markedly elevated glucose, normal bicarb, normal anion gap, normal pH. Findings consistent with HHS. The patient was given 3 L normal saline bolus, started on maintenance fluids. No insulin at this time due to caution of overcorrection. The patient will be admitted for further monitoring and evaluation. Patient's care was impacted by Diabetes, Hypertension, and dementia . All diagnostic, treatment, and disposition decisions were made by myself in conjunction with the Resident. I also supervised mcmahon portions of any procedures performed by the Resident. For all further details of the patient's emergency department visit, please see their documentation. (Comment: Please note this report has been produced using speech recognition software and may contain errors related to that system including errors in grammar, punctuation, and spelling, as well as words and phrases that may be inappropriate. If there are any questions or concerns please feel free to contact the dictating provider for clarification.) Karel Ghosh DO Acute Care [facility] Karel Ghosh DO 01/17/232141 [facility] Work Phone: 01-05-2023 Emergency department Note [facility] bedside to transport patient to facility. Discharge Packet provided to ambulance to return to facility. Chrystal Melendez RN 01/05/23421 [facility] 01-05-2023 Emergency department Note [facility] bedside to transport patient to facility. Discharge Packet provided to ambulance to return to facility. Chrystal Melendez RN 01/05/23421 Patient ambulated with two RN's and a walker, able to bear weight without complaints of pain. Chrystal Melendez RN 01/05/23 0346 Family called RN into the room, patient requested a urinal, RN provided patient with a urinal, patient was able to urinate about 100mL into urinal but depends was soaked as well. RN got patient cleaned up and placed a new goan and new depends on patient; family remains bedside. Call light in reach. Chrystal Melendez RN 01/05/23 0324 Emergency Department Encounter [facility] ED Patient: Tita Keith : 1935 Date of Evaluation: 01/05/2023 ED Provider: Kee Mishra MD Note: I wore an N95 mask and gloves during this encounter. CHIEF COMPLAINT: Ground-level fall HPI: Tita Keith is a 87 y.o. male with PMH Per accompanying documentation and senior office assistant report history of dementia, hypertension, diabetes, not on antiplatelet or anticoagulation medication, presents from assisted living facility by senior office assistant with concern for ground-level fall. Paramedics provide history, report this evening patient walked to the bathroom, had an unwitnessed fall, complained of right hip pain, and "bumping his head", no report of loss of consciousness or additional injuries, report patient was weightbearing with bilateral lower extremities, and the assisted living facility stated patient was at his baseline state of health. On my evaluation patient is unable to provide details regarding the reported fall, he endorses mild discomfort in the right hip, also that he "bumped" his posterior head, he denies pain or injury elsewhere including the neck, chest abdomen or pelvis, back, extremities elsewhere, numbness or weakness, cough, shortness of breath, fever chills, nausea vomiting, or other symptoms or concerns. REVIEW OF SYSTEMS: Pertinent positives and negatives as per HPI. HISTORIES: PAST MEDICAL HISTORY: as per HPI SOCIAL HISTORY: Resides at assisted living facility, no tobacco use MEDICATIONS: Nursing notes and EMR reviewed ALLERGIES: Nursing notes and EMR reviewed PHYSICAL EXAM: Vital signs: reviewed Gen: alert, no acute distress Eye: Left eye mild conjunctival injection with subtle purulent discharge, right eye conjunctiva clear, pupils midsize, symmetrical, really reactive, extraocular motor intact Neck: No midline cervical tenderness, step-offs or deformities HEENT: No visible facial trauma, posterior scalp contusion without laceration, no other scalp wounds Respiratory: nonlabored respiration, bilateral breath sounds present, no chest wall tenderness Cardiovascular: Normal rate, regular rhythm Gastrointestinal: Soft, nontender, nondistended Integumentary: Warm, dry, intact Musculoskeletal: No limitation range of motion bilateral shoulders, elbows, wrist, hips, knees, ankles RUE: No tenderness or deformity, including throughout the right hip LUE: No tenderness or deformity, including throughout the left hip RLE: No tenderness or deformity LLE: No tenderness or deformity Back: No midline thoracic or lumbar tenderness step-offs or deformities Neurologic: Nonslurred speech, answering questions appropriately, follows commands, extraocular movements intact, full strength bilateral shoulder flexion, full strength bilateral hip flexion MEDICAL DECISION MAKING: Medications acetaminophen (Tylenol) tablet 1,000 mg (1,000 mg Oral Given 01/05/23 0120) sodium chloride 0.9 % bolus 1,000 mL (0 mL IntraVENous Stopped 01/05/23 0252) erythromycin (Romycin) 5 MG/GM ophthalmic ointment ( Left Eye Given 01/05/23 0358) Tita Keith is a 87 y.o. male who presents as above, concern for ground-level fall unwitnessed, patient unable to provide details of events leading to his fall, complains of right hip pain, head injury, denies pain or injury elsewhere or other symptoms or concerns, he is accompanied by signed DNR CC paperwork, no reported antiplatelet or anticoagulation medication use. Presentation concerning for mechanical versus nonmechanical ground-level fall, as well as traumatic injury including the head, right hip, will obtain work-up to evaluate including EKG, laboratory valuation, CT head and cervical spine, chest x-ray, pelvis and right hip x-ray. Labs obtained, interpreted by me, notable for creatinine 1.35 (previously 1.12-1.33), potassium 5.3-repeat potassium 4.0 following IV fluids, no leukocytosis, hemoglobin 12.6 comparable to baseline EKG obtained, per my interpretation, notable for sinus rhythm. Troponin WNL CT head per radiologist interpretation, no acute findings CT C-spine per radiologist interpretation, no acute findings Right hip/pelvis x-ray obtained, interpreted per radiologist no acute findings including fracture or dislocation CXR obtained, interpreted per radiologist no acute findings On reevaluation patient remains well-appearing in no apparent discomfort. Patient was able to tolerate weightbearing bilateral lower extremities. Discussed patient's presentation and findings with family present at the bedside, they are in agreement with plan for discharge to return to current living facility, patient also in agreement, recommend close PCP follow-up, return precautions discussed, patient and family agree with plan, stable for discharge. Note: I discussed patient's left eye exam findings with patient's family, concerning for conjunctivitis, they report this is chronic and intermittently flares up, they report he does not wear contact lenses, they elect to initiate treatment with antibiotic ointment, with recommended mandatory close ophthalmology follow-up, referral placed. DIAGNOSIS: Ground-level fall DISPOSITION: Discharge PRESCRIPTIONS: Discharge Medication List as of 01/05/2023 3:34 AM START taking these medications Details erythromycin (Romycin) 5 MG/GM ophthalmic ointment Apply 1 application to affected eye(s) in the morning and 1 application at noon and 1 application in the evening and 1 application before bedtime. Do all this for [address] a 1/2 inch ribbon of ointment into the lower eyelid., Starting Sun01/05/2023, Until Sun01/12/2023, Print Comment: Please note this report has been produced using speech recognition software and may contain errors related to that system including errors in grammar, punctuation, and spelling, as well as words and phrases that may be inappropriate. If there are any questions or concerns please feel free to contact the dictating provider for clarification. Kee Mishra MD Acute Care [facility] Kee Mishra MD 01/05/23 0422 Patient brought via EMS to room 7 presenting with c/o of fall at facility; patient was up going to the bathroom and had an unwitnessed fall. Per snf patient is at cognitive baseline, upon assessment here patient is unaware of time, place. Patient is able to state his name but not his birthday, patient is able to tell staff that he fell trying to go to the bathroom and that he uses a cane for ambulation. Patient has a history of dementia. Patient reports right hip pain, and per EMS had a bump on his head; no apparent laceration or open area to the back of the head. Patient is not on blood thinners, did not lose consciousness, and is a DNRCC. Patient is following commands with triage. Call light in reach. EKG completed and handed to physician. documented in this encounter [facility] 01-05-2023 Emergency department Note Patient ambulated with two RN's and a walker, able to bear weight without complaints of pain. Chrystal Melendez RN 01/05/23 0346 [facility] 01-05-2023 Hospital Discharg e instructions Kee Mishra MD - 01/05/2023 3:26 AM EDT Please return to the Emergency Department immediately for new or worsening symptoms or any new concerns. Please follow-up with [your primary care doctor] within the next [3-5] days. Please follow-up with ophthalmology in the next 3 to 5 days for further evaluation of left eye discharge and redness. The following attachments cannot be sent through Care Everywhere.Closed Head Injury Discharge Instructions ([place])Contusion Discharge Instructions ([place])Conjunctivitis ([facility]) ED ([place])documented in this encounter [facility] 01-05-2023 Emergency department Note Family called RN into the room, patient requested a urinal, RN provided patient with a urinal, patient was able to urinate about 100mL into urinal but depends was soaked as well. RN got patient cleaned up and placed a new goan and new depends on patient; family remains bedside. Call light in reach. Chrystal Melendez RN 01/05/23 0324 [facility] 01-05-2023 Emergency department Triage note Patient brought via EMS to room 7 presenting with c/o of fall at facility; patient was up going to the bathroom and had an unwitnessed fall. Per snf patient is at cognitive baseline, upon assessment here patient is unaware of time, place. Patient is able to state his name but not his birthday, patient is able to tell staff that he fell trying to go to the bathroom and that he uses a cane for ambulation. Patient has a history of dementia. Patient reports right hip pain, and per EMS had a bump on his head; no apparent laceration or open area to the back of the head. Patient is not on blood thinners, did not lose consciousness, and is a DNRCC. Patient is following commands with triage. Call light in reach. EKG completed and handed to physician. [facility] 01-05-2023 Physician Emergency department Note Emergency Department Encounter [facility] ED Patient: Tita Keith : 1935 Date of Evaluation: 01/05/2023 ED Provider: Kee Mishra MD Note: I wore an N95 mask and gloves during this encounter. CHIEF COMPLAINT: Ground-level fall HPI: Tita Keith is a 87 y.o. male with PMH Per accompanying documentation and senior office assistant report history of dementia, hypertension, diabetes, not on antiplatelet or anticoagulation medication, presents from assisted living facility by senior office assistant with concern for ground-level fall. Paramedics provide history, report this evening patient walked to the bathroom, had an unwitnessed fall, complained of right hip pain, and "bumping his head", no report of loss of consciousness or additional injuries, report patient was weightbearing with bilateral lower extremities, and the assisted living facility stated patient was at his baseline state of health. On my evaluation patient is unable to provide details regarding the reported fall, he endorses mild discomfort in the right hip, also that he "bumped" his posterior head, he denies pain or injury elsewhere including the neck, chest abdomen or pelvis, back, extremities elsewhere, numbness or weakness, cough, shortness of breath, fever chills, nausea vomiting, or other symptoms or concerns. REVIEW OF SYSTEMS: Pertinent positives and negatives as per HPI. HISTORIES: PAST MEDICAL HISTORY: as per HPI SOCIAL HISTORY: Resides at assisted living facility, no tobacco use MEDICATIONS: Nursing notes and EMR reviewed ALLERGIES: Nursing notes and EMR reviewed PHYSICAL EXAM: Vital signs: reviewed Gen: alert, no acute distress Eye: Left eye mild conjunctival injection with subtle purulent discharge, right eye conjunctiva clear, pupils midsize, symmetrical, really reactive, extraocular motor intact Neck: No midline cervical tenderness, step-offs or deformities HEENT: No visible facial trauma, posterior scalp contusion without laceration, no other scalp wounds Respiratory: nonlabored respiration, bilateral breath sounds present, no chest wall tenderness Cardiovascular: Normal rate, regular rhythm Gastrointestinal: Soft, nontender, nondistended Integumentary: Warm, dry, intact Musculoskeletal: No limitation range of motion bilateral shoulders, elbows, wrist, hips, knees, ankles RUE: No tenderness or deformity, including throughout the right hip LUE: No tenderness or deformity, including throughout the left hip RLE: No tenderness or deformity LLE: No tenderness or deformity Back: No midline thoracic or lumbar tenderness step-offs or deformities Neurologic: Nonslurred speech, answering questions appropriately, follows commands, extraocular movements intact, full strength bilateral shoulder flexion, full strength bilateral hip flexion MEDICAL DECISION MAKING: Medications acetaminophen (Tylenol) tablet 1,000 mg (1,000 mg Oral Given 01/05/23 0120) sodium chloride 0.9 % bolus 1,000 mL (0 mL IntraVENous Stopped 01/05/23 0252) erythromycin (Romycin) 5 MG/GM ophthalmic ointment ( Left Eye Given 01/05/23 0358) Tita Keith is a 87 y.o. male who presents as above, concern for ground-level fall unwitnessed, patient unable to provide details of events leading to his fall, complains of right hip pain, head injury, denies pain or injury elsewhere or other symptoms or concerns, he is accompanied by signed DNR CC paperwork, no reported antiplatelet or anticoagulation medication use. Presentation concerning for mechanical versus nonmechanical ground-level fall, as well as traumatic injury including the head, right hip, will obtain work-up to evaluate including EKG, laboratory valuation, CT head and cervical spine, chest x-ray, pelvis and right hip x-ray. Labs obtained, interpreted by me, notable for creatinine 1.35 (previously 1.12-1.33), potassium 5.3-repeat potassium 4.0 following IV fluids, no leukocytosis, hemoglobin 12.6 comparable to baseline EKG obtained, per my interpretation, notable for sinus rhythm. Troponin WNL CT head per radiologist interpretation, no acute findings CT C-spine per radiologist interpretation, no acute findings Right hip/pelvis x-ray obtained, interpreted per radiologist no acute findings including fracture or dislocation CXR obtained, interpreted per radiologist no acute findings On reevaluation patient remains well-appearing in no apparent discomfort. Patient was able to tolerate weightbearing bilateral lower extremities. Discussed patient's presentation and findings with family present at the bedside, they are in agreement with plan for discharge to return to current living facility, patient also in agreement, recommend close PCP follow-up, return precautions discussed, patient and family agree with plan, stable for discharge. Note: I discussed patient's left eye exam findings with patient's family, concerning for conjunctivitis, they report this is chronic and intermittently flares up, they report he does not wear contact lenses, they elect to initiate treatment with antibiotic ointment, with recommended mandatory close ophthalmology follow-up, referral placed. DIAGNOSIS: Ground-level fall DISPOSITION: Discharge PRESCRIPTIONS: Discharge Medication List as of 01/05/2023 3:34 AM START taking these medications Details erythromycin (Romycin) 5 MG/GM ophthalmic ointment Apply 1 application to affected eye(s) in the morning and 1 application at noon and 1 application in the evening and 1 application before bedtime. Do all this for [address] a 1/2 inch ribbon of ointment into the lower eyelid., Starting Sun01/05/2023, Until Sun01/12/2023, Print Comment: Please note this report has been produced using speech recognition software and may contain errors related to that system including errors in grammar, punctuation, and spelling, as well as words and phrases that may be inappropriate. If there are any questions or concerns please feel free to contact the dictating provider for clarification. Kee Mishra MD Acute Care [facility] Kee Mishra MD 01/05/23421 [facility] 03-06-2022 Note Discharge Summary Tita Keith : 1935 ADMIT DATE: 03/01/2022 DISCHARGE DATE: 03/06/2022 PRIMARY CARE PHYSICIAN: DUDLEY COBB MD VISIT STATUS: Admission CODE STATUS: DNR-CCA DISCHARGE DIAGNOSES: Active Problems: New onset type 2 diabetes mellitus (HCC) Acute renal insufficiency Hyperglycemia. New onset type 2 diabetes mellitus. Dementia/delirium. Delirium secondary to dementia Pseudohyponatremia in the setting of high blood glucose ? ROS_ mild confusion, son at bedside, no agitation today, wants to go home. Denies chest pain, SOB, nausea or vomiting , urinary frequency improved PHYSICALEXAM Vitals: 03/06/22 0727 BP: 130/81 Pulse: 75 Resp: 16 Temp: 97.8 ?F (36.6 ?C) SpO2: 95% General appearance: Alert, oriented x2 HEENT: Normal cephalic, atraumatic without obvious deformity. Pupils equal, round, and reactive to light. Extra ocular muscles intact. Conjunctivae/corneas clear. Neck: Supple, with full range of motion. No jugular venous distention. Trachea midline. No lymphadenopathy. Respiratory: Normal respiratory effort. Clear to auscultation, bilaterally without Rales/Wheezes/Rhonchi. Cardiovascular: Regular rate and rhythm with normal S1/S2 without murmurs, rubs or gallops. Abdomen: Soft, non-tender, non-distended with normal bowel sounds. No rebound or guarding. Musculoskeletal: No clubbing, cyanosis or edema bilaterally. Full range of motion without deformity. Skin: Skin color, texture, turgor normal. No rashes or lesions. Neurologic: Alert, oriented x2, no focal deficits. HOSPITAL COURSE: Admitted with urinary frequency and new onset DM, Endocrinology was consulted, Lantus started. Seroquel was added for sleep and agitation, renal function improved with hydration SIGNIFICANT DIAGNOSTIC STUDIES: None CONSULTANTS: IP CONSULT TO UTILITY DIVISION PROJECT MANAGER IP CONSULT TO ENDOCRINOLOGY MEDICATION CHANGES: Lantus and Seroquel were added , see med rec for details RECOMMENDED NEXT STEPS: Follow up with endocrine and PCP DISCHARGE MEDICATIONS: Medication List START taking these medications Insulin Pen Needle 32G X 6 MM Misc Give lantus 8 units nightly Lantus SoloStar 100 UNIT/ML injection pen Generic drug: insulin glargine Inject 8 Units into the skin nightly QUEtiapine 25 MG tablet Commonly known as: SEROQUEL Take 1 tablet by mouth nightly CONTINUE taking these medications carboxymethylcellulose 0.5 % Soln ophthalmic solution Commonly known as: REFRESH PLUS lisinopril 20 MG tablet Commonly known as: PRINIVIL;ZESTRIL simvastatin 40 MG tablet Commonly known as: ZOCOR tamsulosin 0.4 MG capsule Commonly known as: FLOMAX Where to Get Your Medications These medications were sent to [address] - P [phone] - F [phone] [place] [id number] ? Insulin Pen Needle 32G X 6 MM Misc ? Lantus SoloStar 100 UNIT/ML injection pen ? QUEtiapine 25 MG tablet Pharmacy Instructions: As tolerated going home with Home hhealth DIET: ADULT DIET; Regular; 4 carb choices (60 gm/meal) ADULT ORAL NUTRITION SUPPLEMENT; Breakfast, Dinner; Diabetic Oral Supplement ACTIVITY: up with assist ____ COMPLEXITY OF FOLLOW UP: [] Moderate Complexity: follow up within 7-14 calendar days (69899) [] Severe Complexity: follow up within 7 calendar days (01574) FOLLOW UP TESTING, PENDING RESULTS OR REFERRALS AT TRANSITIONAL CARE VISIT: [] Yes [] No PENDING STUDIES: No DISPOSITION: Home FACILITY/HOME CARE AGENCY NAME: Home health agency Follow up with Dudley Cobb MD [address] [place] [id number] Schedule an appointment as soon as possible for a visit in 1 week medical follow up after hospital visit on INSTRUCTIONS TO MA/SW: Please call patient on day after discharge (must document patient contacted within 2 business days of discharge). FOLLOW UP QUESTIONS FOR MA/SW: 1. Did you get medications filled and taking them as instructed from discharge? 2. Are you following your discharge instructions from your hospital stay? 3. Please confirm patient is scheduled for a follow up appointment within the above time frame. DISCHARGE TIME: > 30 minutes SIGNED: Ilene Willingham MD 03/06/2022, 2:29 PM [facility] Evaluation note Diagnosis Fall from ground level- Primary Discharge of left eye [facility] Diagnosis Hyperosmolar hyperglycemic state (HHS) (HCC)- Primary Hyperosmolar hyperglycemic state (HHS) (HCC) Hyperglycemia Other abnormal glucose Severe malnutrition (CMS/HCC) (HCC) Nutritional marasmus documented in this encounter [facility] note* Diagnosis COVID-19- Primary COVID-19 Hypoxia Hypoxemia Edema of right upper arm 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) [facility] noteNo assessment information availableW[facility] Work Phone: Evaluation note* Diagnosis Pneumonia due to infectious organism, unspecified laterality, unspecified part of lung- Primary Pneumonia due to infectious organism, unspecified laterality, unspecified part of lung Sepsis, due to unspecified organism, unspecified whether acute organ dysfunction present (HCC) RSV (acute bronchiolitis due to respiratory syncytial virus) Acute bronchiolitis due to respiratory syncytial virus (RSV) Severe malnutrition (CMS/HCC) (HCC) Nutritional marasmus documented in this encounter [facility] note* Diagnosis Closed nondisplaced intertrochanteric fracture of right femur, initial encounter ([facility])- Primary Closed nondisplaced intertrochanteric fracture of right femur, initial encounter ([facility]) documented in this encounter [facility] note* Diagnosis Closed nondisplaced intertrochanteric fracture of right femur, initial encounter ([facility])- Primary S/P ORIF (open reduction internal fixation) fracture documented in this encounter [facility] note* Diagnosis Closed nondisplaced intertrochanteric fracture of right femur, initial encounter ([facility])- [facility] Consultation (Urgent) - Pending Review Specialty Diagnoses / Procedures Referred By Contac t Referred To Contact Ophthalmology Diagnoses Fall from ground level Discharge of left eye Procedures [place] OFFICE/OUTPATIENT [facility] 60-74 MINUTES Kee Mishra MD [address] [place] [address] [facility] [address] [place] [address] Referral ID Status Reason Start Date Expiration Date Visits Requested Visits Authorized [id number] Pending Review Specialty Services Required 01/05/2023 01/05/2024 1 1 [facility] ([facility]ative)No reason for referral information availableWOhio Valley Hospital Work Phone: Summary Purpose Family History No Family History Records FoundNo Family History Records FoundNo Family History Records Found Advance Directives No Advanced Directives Records FoundLatest Code Status on File Code Status Date Activated Date Inactivated Comments DNR-CCA 01/18/2023 7:46 PM 01/26/2023 2:32 PM Question Answer Comments ICU transfer: Yes Intubation: No Code Status History Code Status Date Activated Date Inactivated Comments Full Code 01/17/2023 11:53 PM 01/18/2023 7:46 PM Healthcare Agents on File Name Relationship Healthcare Agent Relationshi p Communication [facility] Latest Code Status on File Code Status Date Activated Date Inactivated Comments DNR-CCA 09/11/2023 10:32 AM 09/19/2023 1:45 PM Question Answer Comments ICU transfer: No Code Status History Code Status Date Activated Date Inactivated Comments Full Code 09/10/2023 8:30 PM 09/11/2023 10:32 AM DNR-CCA 01/18/2023 7:46 PM 01/26/2023 2:32 PM Question Answer Comments ICU transfer: Yes Intubation: No Full Code 01/17/2023 11:53 PM 01/18/2023 7:46 PM Healthcare Agents on File Name Relationship Healthcare Agent Relationshi p Communication [facility] Care Agent Advance Directive Response Recorded Date/ Time Living Will No September 23 3:59pm Power of Animal Control Specialist No September 23, 2023 3:59pm Documents on File Type Date Recorded Patient Perioperative Nurse Expl anation Advance Directives and Livin g Will 09/20/2023 11:51 AM DNR (Do Not Resuscitate) 12/06/2023 5:38 PM Latest Code Status on File Code Status Date Activated Date Inactivated Comments DNR-CCA 12/07/2023 12:08 PM 12/12/2023 5:01 PM Question Answer Comments ICU transfer: Yes Intubation: No Code Status History Code Status Date Activated Date Inactivated Comments DNR-CCA 12/07/2023 4:42 AM 12/07/2023 12:08 PM Question Answer Comments ICU transfer: No DNR-CCA 12/06/2023 5:40 PM 12/07/2023 4:42 AM Question Answer Comments ICU transfer: Yes Intubation: No DNR-CCA 12/06/2023 5:38 PM 12/06/2023 5:39 PM Question Answer Comments ICU transfer: No DNR-CCA 09/11/2023 10:32 AM 09/19/2023 1:45 PM Question Answer Comments ICU transfer: No Healthcare Agents on File Name Relationship Healthcare Agent [facility] Communication [facility] Advance Directive Response Recorded Date/ Time Living Will No September 23 4:59pm Power of Animal Control Specialist No September 23, 2023 4:59pm Documents on File Type Date Recorded Patient Perioperative Nurse Expl anation Advance Directives and Living Will 12/13/2023 9:02 AM Advance Directives and Living Will 09/20/2023 11:51 AM DNR (Do Not Resuscitate) 04/02/2025 9:24 AM [place] DNR Form DNR (Do Not Resuscitate) 12/06/2023 5:38 PM Date Activated Date Inactivated Comments 03/31/2025 9:11 AM 04/02/2025 3:10 PM Question Answer Comments ICU transfer: No Date Activated Date Inactivated Comments 12/07/2023 12:08 PM 12/12/2023 5:01 PM Question Answer Comments ICU transfer: Yes Intubation: No Date Activated Date Inactivated Comments 12/07/2023 4:42 AM 12/07/2023 12:08 PM Question Answer Comments ICU transfer: No Date Activated Date Inactivated Comments 12/06/2023 5:40 PM 12/07/2023 4:42 AM Question Answer Comments ICU transfer: Yes Intubation: No Date Activated Date Inactivated Comments 12/06/2023 5:38 PM 12/06/2023 5:39 PM Question Answer Comments ICU transfer: No Healthcare Agents on File Name Relationship Healthcare Agent Relationshi p Communication Kayleigh Scott Child Health Care Agent Healthcare Agents on File Name Relationship Healthcare Agent Relationshi p Communication Kayleigh Scott Child Health Care Agent Healthcare Agents on File Name Relationship Healthcare Agent Relationshi p Communication Kayleigh Scott Child Health Care Agent Healthcare Agents on File Name Relationship Healthcare Agent Relationshi p Communication Kayleigh Scott Child Health Care Agent Chief Complaint and Reason for Visit Chief Complaint FALL Chief Complaint FALL LAB WORK LAB WORK LABWORK Chief Complaint FALL LAB WORK LAB WORK LABWORK LABWORK Chief Complaint LAB WORK LABWORK LABWORK LABWORK LAB WORK LABWORK PENITENTIARY LAB WORK Chief Complaint LABWORK LABWORK LABWORK LAB WORK LABWORK PENITENTIARY LAB WORK PENITENTIARY LAB WORK Chief Complaint Admit Date PENITENTIARY LAB WORK November 07, 2024 5:00am LABWORK February 12, 2025 5:0 0am Chief Complaint Admit Date PENITENTIARY LAB WORK February 11, 2025 1 :40pm LABWORK February 12, 2025 5:0 0am LABWORK March 02, 2025 5:00a m Chief Complaint Admit Date PENITENTIARY LAB WORK February 11, 2025 1 :40pm LABWORK February 12, 2025 5:0 0am PENITENTIARY LAB WORK February 17, 2025 4 :00am LABWORK March 02, 2025 5:00a m Reason for Referral Specialty Diagnoses / Procedures Referred By Darlene t Referred To Contact Ruiz Braun MD [address] [facility], [place] [id number] Referral ID Status Reason Start Date Expiration Date V isits Requested Visits Authorized [id number] Pending Review 1 1 Additional Source Comments (unrecognized sect ion and content) No Status Records FoundNo Status Records FoundNo Status Records Found INFORMATION SOURCE (unrecogn ized section and content) DATE CREATED AUTHOR 08/17/2022 [employer] DATE CREATED AUTHOR AUTHOR'S ORGANIZ ATION 04/23/2025 [facility] DATE CREATED AUTHOR AUTHOR'S ORGANIZ ATION 07/13/2025 [facility] Reason for Visit (unrecogniz ed section and content) Reason Comments Fall Reason Comments Weakness, Gen Pt brought in by EMS from SNF for difficulty ambulating and difficulty swallowing. Per EMS the facility states that pt is usually up and ambulating but has now been in bed unable to get up. They also stated that they attempted to give him his pills last night and he choked on them. EMS states that pt BGL was registering HI on their BGT machine. Pt A&Ox1 baseline per EMS Dysphagia Specialty Diagnoses / Procedures Referred By Contac t Referred To Contact Diagnoses Hyperosmolar hyperglycemic state (HHS) ([facility]) Procedures . Kayleigh Stout DO [address] [place] [address] [facility] Dept [address] [place] [phone] Referral ID Status Reason Start Date Expiration Date Visits Re quested Visits Authorized [id number] 1 1 Reason Comments Shortness of Breath Specialty Diagnoses / Procedures Referred By Contac t Referred To Contact Diagnoses COVID-19 Procedures . Kayleigh Stout DO [address] [place] [address] [facility] [address] [place] [phone] Referral ID Status Reason Start Date Expiration Date Visits Re quested Visits Authorized [id number] 1 1 Reason Comments Shortness of Breath Fever Pnuemonia Specialty Diagnoses / Procedures Referred By Contac t Referred To Contact Diagnoses Pneumonia due to infectious organism, unspecified laterality, unspecified part of lung Procedures [id number] due to infectious organism, unspecified laterality, unspecified part of lung Kayleigh Stout DO [address] [place] [address] [facility] Dept [address] [place] [address] Referral ID Status Reason Start Date Expiration Date Visits Re quested Visits Authorized [id number] 1 1 Reason Comments Fall Pt had a fall last n ight at [facility]. [facility] performed an X-Ray that shows a right femur fracture. Pt is AxOx0 at baseline. Hip Pain Confirmed right femu r fracture. Specialty Diagnoses / Procedures Referred By Darlene robertson Referred To Contact Diagnoses Closed nondisplaced intertrochanteric fracture of right femur, initial encounter ([facility]) Procedures . Shay Velazco MD [address] [place] [address] Phone: tel: fax: [facility] [address] [place] [address] Phone: tel: Referral ID Status Reason Start Date Expiration Date Visits Re quested Visits Authorized [id number] 1 1 Reason Onset Date Comments Other 04/02/2025 IPO needs schedu led Reason Onset Date Comments Request For Order(s) 04/21/2025 Cancelled Appointment 04/21/2025 Scheduled Active and Recently Administ ered Medications (unrecognized section and content) Medication Order 01/03/2023 01/04/2023 01/05/2023 acetaminophen (Tylenol) tablet 1,000 mg (COMPLETED) 1,000 mg, Oral, Once, On Sun01/05/23 at 0110, For 1 dose, Maximum dose of acetaminophen is 4000 mg from all sources in 24 hours. 0120 (Given - Provid er: Chrystal Melendez RN) erythromycin (Romycin) 5 MG/GM ophthalmic ointment (COMPLETED) Left Eye, Once, On Sun01/05/23 at 0335, For 1 dose, Apply Amount per Dose: 0.5 inch (~1 cm) per dose. 0358 (Given - Provid er: Chrystal Melendez, ISABEL) sodium chloride 0.9 % bolus 1,000 mL (COMPLETED) 1,000 mL, IntraVENous, at 1,000 mL/hr, Administer over 1 Hours, Once, On Sun01/05/23 at 0145, For 1 dose 0211 (New Bag - Prov ider: Chrystal Melendez, ISABEL)0252 (Stopped - Provider: Chrystal Melendez RN) Scheduled Medication Order 01/24/2023 01/25/2023 01/26/2023 docusate sodium (Colace) capsule 100 mg 100 mg, Oral, 2 times daily, First dose on Sun01/17/23 at 2355, Do not crush or break. 1222 (Given - Provider: Edis Palomino RN)2020 (Not Given - Provider: Jana Silverio RN - Reason: Patient/family refused) 0805 (Given - Provider: Edis Palomino RN)204 (Given - Provider: Maty Michael RN) 0920 (Not Given - Provider: Sherry Renteria RN - Reason: Patient/family refused) enoxaparin (Lovenox) syringe 30 mg 30 mg, SubCUTAneous, Every 24 hours scheduled (Daily), First dose (after last modification) on Judith 01/18/23 at 0900, Indication of Use: Prophylaxis-DVT/PE, Indications: Prophylaxis of Venous Thromboembolism 1218 (Given - Provider: Edis Palomino RN) 0805 (Given - Provider: Edis Palomino RN) 0920 (Given - Provider: Sherry Renteria RN) erythromycin (Romycin) 5 MG/GM ophthalmic ointment Left Eye, Every 6 hours scheduled (4 times per day), First dose on Sun01/21/23 at 1445, Apply Amount per Dose: 0.5 inch (~1 cm) per dose. 0520 (Given - Provider: Jana Silverio RN)1219 (Given - Provider: Edis Palomino RN)1800 (Canceled Entry - Provider: Automatic Discharge Provider - Comment: Automatically canceled at discontinue of medication order) 0046 (Given - Provider: Jana Silverio RN)0554 (Given - Provider: Jana Silverio RN)1210 (Given - Provider: Edis Palomino RN)1818 (Given - Provider: Edis Palomino RN) 0029 (Given - Provider: Maty Michael, ISABEL)0523 (Given - Provider: Maty Michael RN)1200 (Canceled Entry - Provider: Automatic Discharge Provider - Comment: Automatically canceled at discontinue of medication order) insulin glargine (Lantus) injection 14 Units 14 Units, SubCUTAneous, Nightly, First dose on Sun01/17/23 at 2355 2020 (Given - Provider: Jana Silverio RN - Comment: [phone]) 2049 (Given - Provider: Maty Michael, RN) Insulin Lispro (Humalog) injection 0-18 Units(Linked Group 1) 0-18 Units, SubCUTAneous, 3 times daily with meals, First dose on Sun01/18/23 at 0800, High Dose Correction Algorithm Glucose: Dose: LESS than 139 No Insulin 140-199 3 Unit 200-249 6 Units 250-299 9 Units 300-349 12 Units 350-400 15 Units Above 400 18 Units 0800 (Not Given - Provider: Edis Palomino RN - Reason: Order parameters not met)1219 (Given - Provider: Edis Palomino RN - Comment: [phone] (Not Given - Provider: Edis Palomino RN - Reason: Order parameters not met - Comment: 129) 0800 (Not Given - Provider: Edis Palomino RN - Reason: Order parameters not met)1210 (Given - Provider: Edis Palomino RN - Comment: [phone])1700 (Not Given - Provider: Edis Palomino RN - Reason: Order parameters not met - Comment: 137) 0800 (Not Given - Provider: Sherry Renteria RN - Reason: Order parameters not met)1200 (Canceled Entry - Provider: Automatic Discharge Provider - Comment: Automatically canceled at discontinue of medication order) Insulin Lispro (Humalog) injection 0-18 Units(Linked Group 1) 0-18 Units, SubCUTAneous, Nightly, First dose on Sun01/17/23 at 2355, If continuous tube feedings/TPN/NPO, give correction dose based on result, no reduction in dose. If eating or bolus tube feeding: High Dose Correction Algorithm Glucose: Dose: LESS than 139 No Insulin 140-199 3 Unit 200-249 6 Units 250-299 9 Units 300-349 12 Units 350-400 15 Units Above 400 18 Units 2020 (Given - Provider: Jana Silverio RN - Comment: 203) 2048 (Given - Provider: Maty Michael, IASBEL) lisinopril tablet 20 mg 20 mg, Oral, Daily, First dose on Sun01/18/23 at 0900 1220 (Given - Provider: Edis Palomino RN) 0805 (Given - Provider: Edis Palomino, ISABEL) 0919 (Given - Provider: Sherry Renteria, ISABEL) mirtazapine (Remeron) tablet 15 mg 15 mg, Oral, Nightly, First dose on Sun01/17/23 at 2355 2021 (Given - Provider: Jana Silverio, ISABEL) 2043 (Given - Provider: Maty Michael, RN) QUEtiapine (SEROquel) tablet 12.5 mg 12.5 mg, Oral, 2 times daily, First dose (after last modification) on Sun01/19/23 at 1330 1222 (Given - Provider: Edis Palomino RN)2021 (Given - Provider: Jana Silverio, ISABEL) 0805 (Given - Provider: Edis Palomino, ISABEL)2042 (Given - Provider: Maty Michael, ISABEL) 0920 (Given - Provider: Sherry Renteria, ISABEL) sodium chloride 0.9 % infusion 100 mL/hr, IntraVENous, Once, On Sun01/17/23 at 2150, For 1 dose tamsulosin (Flomax) 24 hr capsule 0.8 mg 0.8 mg, Oral, Nightly, First dose on Sun01/17/23 at 2355, Do not crush, chew, or split. 2023 (Given - Provider: Jana Silverio, ISABEL) 2042 (Given - Provider: Maty Michael, ISABEL) PRN Medication Order 01/24/2023 01/25/2023 01/26/2023 acetaminophen (Tylenol) suppository 650 mg(Linked Group 2) 650 mg, Rectal, Every 6 hours PRN, mild pain (1-3), fever, For temp greater than 100.4 F (38 C), Starting on Sun01/17/23 at 2353, Administer if oral route cannot be used. Maximum dose of acetaminophen is 4000 mg from all sources in 24 hours. acetaminophen (Tylenol) tablet 650 mg(Linked Group 2) 650 mg, Oral, Every 6 hours PRN, mild pain (1-3), fever, For temp greater than 100.4 F (38 C), Starting on Sun01/17/23 at 2353, Maximum dose of acetaminophen is 4000 mg from all sources in 24 hours. dextrose 5 % infusion 100 mL/hr, IntraVENous, PRN, Blood sugar less than 70mg/dL, Starting on Sun01/17/23 at 2353, Start infusion following administration of dextrose 50% or glucagon. dextrose 50 % solution 12.5 g 12.5 g, IntraVENous, PRN, low blood sugar, Blood glucose less than 70 mg/dL and patient NOT ALERT or NPO., Starting on Sun01/17/23 at 2353, If patient does not respond within 5 minutes, repeat dose x1. Start D5W at 100 mL/hour until ordering provider can be reached. Repeat blood glucose in 15 minutes. If blood glucose is less than 70 mg/dL, repeat treatment and recheck blood glucose in 15 minutes x2. If using Glucostabilizer, dose as instructed per system. glucagon (human recombinant) injection 1 mg 1 mg, IntraMUSCular, PRN, low blood sugar, Blood glucose less than 70 mg/dL and patient NOT ALERT or NPO and does not have IV access., Starting on Sun01/17/23 at 2353, After administration, attempt intravenous access and start D5W at 100 mL/hr. Repeat blood glucose in 15 minutes x2 and notify provider. glucose oral gel 15 g 15 g, Oral, As needed, low blood sugar, Starting on Sun01/17/23 at 2353, If blood glucose less than 50 mg/dL and patient ALERT and NOT NPO, give 2 tubes glucose gel. If blood glucose less than 70 mg/dL and patient ALERT and NOT NPO, give 1 tube glucose gel. Repeat blood glucose in 15 minutes. If blood glucose is less than 70 mg/dL, repeat treatment and recheck blood glucose in 15 minutes x2 and notify provider. ondansetron (Zofran) injection 4 mg(Linked Group 3) 4 mg, IntraVENous, Every 6 hours PRN, nausea, vomiting, Starting on Sun01/17/23 at 2353, 1st Line. Give IV if patient is unable to take orally. If inadequate response within 60 minutes, proceed to next-line agent or contact provider if no further options ordered. ondansetron ODT (Zofran-ODT) disintegrating tablet 4 mg(Linked Group 3) 4 mg, Oral, Every 8 hours PRN, nausea, vomiting, Starting on 3/29/23 at 2353, 1st Line. If inadequate response within 60 minutes, proceed to next-line agent or contact provider if no further options ordered. Patient should allow tablet to dissolve on tongue. Do not remove from blister pack until just before administering. polyethylene glycol (PEG) 3350 (Miralax) packet 17 g 17 g, Oral, Daily PRN, constipation, Starting on Sun01/17/23 at 2353, 1st line for treatment of constipation - give scheduled if no bowel movement in past 24 hours. Linked Groups Order Group 1: Insulin Lispro (Humalog) injection 0-18 UnitsJump to med 0-18 Units, SubCUTAneous, 3 times daily with meals, First dose on Judith 01/18/23 at 0800
High Dose Correction Algorithm Glucose: & nbsp; Dose: LESS than 139 No Insulin 140-199 3 Unit 200-249 6 Units 250-299 9 Units 300- 349 12 Units 350-400 15 Units Above 400 18 Units
And Insulin Lispro (Humalog) injection 0-18 UnitsJump to med 0-18 Units, SubCUTAneous, Nightly, First dose on Sun01/17/23 at 2355
If continuous tube feedings/TPN/NPO, give correction dose based on result, no reduction in dose. If eating or bolus tube feeding: High Dose Correction Algorithm Glucose: & nbsp; Dose: LESS than 139 No Insulin 140-199 3 Unit 200-249 6 Units 250-299 9 Units 300- 349 12 Units 350-400 15 Units Above 400 18 Units
Group 2: acetaminophen (Tylenol) tablet 650 mgJump to med 650 mg, Oral, Every 6 hours PRN, mild pain (1-3), fever, For temp greater than 100.4 F (38 C), Starting on Sun01/17/23 at 2353
Maximum dose of acetaminophen is 4000 mg from all sources in 24 hours.
Or acetaminophen (Tylenol) suppository 650 mgJump to med 650 mg, Rectal, Every 6 hours PRN, mild pain (1-3), fever, For temp greater than 100.4 F (38 C), Starting on Sun01/17/23 at 2353
Administer if oral route cannot be used. Maximum dose of acetaminophen is 4000 mg from all sources in 24 hours.
Group 3: ondansetron ODT (Zofran-ODT) disintegrating tablet 4 mgJump to med 4 mg, Oral, Every 8 hours PRN, nausea, vomiting, Starting on Sun01/17/23 at 2353
1st Line. If inadequate response within 60 minutes, proceed to next-line agent or contact provider if no further options ordered. Patient should allow tablet to dissolve on tongue. Do not remove from blister pack until just before administering.
Or ondansetron (Zofran) injection 4 mgJump to med 4 mg, IntraVENous, Every 6 hours PRN, nausea, vomiting, Starting on Sun01/17/23 at 2353
1st Line. Give IV if patient is unable to take orally. If inadequate response within 60 minutes, proceed to next-line agent or contact provider if no further options ordered.
Scheduled Medication Order 09/17/2023 09/18/2023 09/19/2023 dexAMETHasone (PF) (Decadron) injection 6 mg 6 mg, IntraVENous, Every 24 hours, First dose on 09/10/23 at 2200, For 10 doses 2203 (Given - Provider: Marina Salazar RN) 2129 (Given - Provider: Marina Salazar RN) docusate sodium (Colace) capsule 100 mg 100 mg, Oral, 2 times daily, First dose on Sun09/10/23 at 2100, Do not crush or break. 0900 (Not Given - Provider: Karel Maldonado RN - Reason: Other - Comment: Cannot crush)2150 (Given - Provider: Marina Salazar RN) 0900 (Not Given - Provider: Karel Maldonado RN - Reason: Other - Comment: Cannot crush)2129 (Given - Provider: Marina Salazar RN) 08 (Not Given - Provider: Yue Ludwig RN - Reason: Other - Comment: unable to crash) Influenza Vac A&B SA Adj quadrivalent (Fluad) vaccine 0.5 mL 0.5 mL, IntraMUSCular, Prior to discharge, Starting on Sun09/11/23 at 0900, For 1 dose insulin glargine (Lantus) injection 10 Units 10 Units, SubCUTAneous, Nightly, First dose (after last modification) on Sun09/16/23 at 2100 2150 (Given - Provider: Marina Salazar RN) 2130 (Given - Provider: Marina Salzaar RN) Insulin Lispro (Humalog) injection 0-18 Units(Linked Group 1) 0-18 Units, SubCUTAneous, 3 times daily with meals, First dose on Sun09/17/23 at 0800, High Dose Correction Algorithm Glucose: Dose: LESS than 139 No Insulin 140-199 3 Unit 200-249 6 Units 250-299 9 Units 300-349 12 Units 350-400 15 Units Above 400 18 Units 0927 (Given - Provider: Karel Maldonado RN)1203 (Given - Provider: Karel Maldonado RN)1700 (Not Given - Provider: Karel Maldonado RN - Reason: Order parameters not met) 0800 (Not Given - Provider: Karel Maldonado RN - Reason: Order parameters not met)1335 (Given - Provider: Karel Maldonado RN)1829 (Given - Provider: Karel Maldonado RN) 0803 (Given - Provider: Yue Ludwig RN)1200 (Canceled Entry - Provider: Automatic Discharge Provider - Comment: Automatically canceled at discontinue of medication order) Insulin Lispro (Humalog) injection 0-18 Units(Linked Group 1) 0-18 Units, SubCUTAneous, Nightly, First dose on Sun09/16/23 at 2100, If continuous tube feedings/TPN/NPO, give correction dose based on result, no reduction in dose. If eating or bolus tube feeding: High Dose Correction Algorithm Glucose: Dose: LESS than 139 No Insulin 140-199 3 Unit 200-249 6 Units 250-299 9 Units 300-349 12 Units 350-400 15 Units Above 400 18 Units 2201 (Given - Provider: Marina Salazar RN) 2130 (Given - Provider: Marina Salazar RN) mirtazapine (Remeron) tablet 15 mg 15 mg, Oral, Nightly, First dose on Sun09/10/23 at 2100 2150 (Given - Provider: Marina Salazar RN) 2129 (Given - Provider: Marina Salazar RN) sodium chloride 0.9% (NS) flush 10 mL 10 mL, IntraVENous, Every 12 hours scheduled (2 times per day), First dose on Sun09/10/23 at 2100 0928 (Given - Provider: Karel Maldonado RN)2203 (Given - Provider: Marina Salazar RN) 0900 (Not Given - Provider: Karel Maldonado RN - Reason: IV Fluids Infusing)2132 (Given - Provider: Marina Salazar RN) 0806 (Given - Provider: Yue Ludwig RN) tamsulosin (Flomax) 24 hr capsule 0.8 mg 0.8 mg, Oral, Nightly, First dose on Sun09/10/23 at 2100, Do not crush, chew, or split. 2150 (Given - Provider: Marina Salazar RN) 2129 (Given - Provider: Marina Salazar RN) Continuous Medication Order 09/17/2023 09/18/2023 09/19/2023 sodium chloride 0.9 % infusion 75 mL/hr, IntraVENous, Continuous, Starting on Sun09/10/23 at 2045 0646 (New Bag - Provider: Peter Fernando RN)0815 (Stopped - Provider: Karel Maldonado RN - Comment: IV Infiltrated)1100 (Restarted - Provider: Karel Maldonado RN) 1831 (New Bag - Provider: Karel Maldonado RN) PRN Medication Order 09/17/2023 09/18/2023 09/19/2023 acetaminophen (Tylenol) suppository 650 mg(Linked Group 2) 650 mg, Rectal, Every 6 hours PRN, mild pain (1-3), fever, For temp greater than 100.4 F (38 C), Starting on Sun09/10/23 at 2029, Administer if oral route cannot be used. Maximum dose of acetaminophen is 4000 mg from all sources in 24 hours. acetaminophen (Tylenol) tablet 650 mg(Linked Group 2) 650 mg, Oral, Every 6 hours PRN, mild pain (1-3), fever, For temp greater than 100.4 F (38 C), Starting on Sun09/10/23 at 2029, Maximum dose of acetaminophen is 4000 mg from all sources in 24 hours. dextrose 5 % infusion 100 mL/hr, IntraVENous, PRN, Blood sugar less than 70mg/dL, Starting on Sun09/10/23 at 2029, Start infusion following administration of dextrose 50% or glucagon. dextrose 50 % solution 12.5 g 12.5 g, IntraVENous, PRN, low blood sugar, Blood glucose less than 70 mg/dL and patient NOT ALERT or NPO., Starting on Sun09/10/23 at 2029, If patient does not respond within 5 minutes, repeat dose x1. Start D5W at 100 mL/hour until ordering provider can be reached. Repeat blood glucose in 15 minutes. If blood glucose is less than 70 mg/dL, repeat treatment and recheck blood glucose in 15 minutes x2. If using Glucostabilizer, dose as instructed per system. glucagon (human recombinant) injection 1 mg 1 mg, IntraMUSCular, PRN, low blood sugar, Blood glucose less than 70 mg/dL and patient NOT ALERT or NPO and does not have IV access., Starting on Sun09/10/23 at 2029, After administration, attempt intravenous access and start D5W at 100 mL/hr. Repeat blood glucose in 15 minutes x2 and notify provider. glucose oral gel 15 g 15 g, Oral, As needed, low blood sugar, Starting on Sun09/10/23 at 2029, If blood glucose less than 50 mg/dL and patient ALERT and NOT NPO, give 2 tubes glucose gel. If blood glucose less than 70 mg/dL and patient ALERT and NOT NPO, give 1 tube glucose gel. Repeat blood glucose in 15 minutes. If blood glucose is less than 70 mg/dL, repeat treatment and recheck blood glucose in 15 minutes x2 and notify provider. 0120 (Given - Provider: Peter Fernando, RN)0208 (Given - Provider: Peter Fernando RN) hydrALAZINE (Apresoline) injection 10 mg 10 mg, IntraVENous, Every 4 hours PRN, high blood pressure, >150, Starting on Sun09/10/23 at 2030 0052 (Given - Provider: Marina Salazar RN) LORazepam (Ativan) tablet 0.25 mg 0.25 mg, Oral, Every 4 hours PRN, anxiety, agitation, Starting on Sun09/11/23 at 1031 Melatonin disintegrating tablet 5 mg 5 mg, Oral, Nightly PRN, sleep, Starting on Sun09/10/23 at 2030 morphine 10 MG/0.5ML concentrated solution 5 mg 5 mg, Oral, Every 2 hour PRN, moderate pain (4-6), severe pain (7-10), shortness of breath, Starting on Sun09/11/23 at 1032, Concentrated product naloxone (Narcan) injection 0.4 mg 0.4 mg, IntraVENous, PRN, opioid reversal, Starting on Sun09/11/23 at 1128, For oversedation/difficult to rouse, pinpoint pupils, RR < 8; notify primary team file conversion operator if used ondansetron (Zofran) injection 4 mg(Linked Group 3) 4 mg, IntraVENous, Every 6 hours PRN, nausea, vomiting, Starting on Sun09/10/23 at 2030, 1st Line. Give IV if patient is unable to take orally. If inadequate response within 60 minutes, proceed to next-line agent or contact provider if no further options ordered. ondansetron ODT (Zofran-ODT) disintegrating tablet 4 mg(Linked Group 3) 4 mg, Oral, Every 8 hours PRN, nausea, vomiting, Starting on Sun09/10/23 at 2030, 1st Line. If inadequate response within 60 minutes, proceed to next-line agent or contact provider if no further options ordered. Patient should allow tablet to dissolve on tongue. Do not remove from blister pack until just before administering. polyethylene glycol (PEG) 3350 (Miralax) packet 17 g 17 g, Oral, Daily PRN, constipation, Starting on Sun09/10/23 at 2030, 1st line for treatment of constipation - give scheduled if no bowel movement in past 24 hours. 926 (Given - Provider: Karel Maldonado RN) 925 (Given - Provider: Karel Maldonado RN) sodium chloride 0.9 % infusion 5-250 mL/hr, IntraVENous, PRN, if patient receiving piggyback infusions and maintenance fluids are not ordered OR KVO fluids to protect IV site / prevent frequent line interruptions/ long duration, Starting on Sun09/10/23 at 2030, For piggyback infusion, administer at same rate as piggyback for a total of 25 mL. Enter 25 mL into dose field and piggyback rate into rate field of order. If piggyback is infusing at a rate less than 100 mL/hr, enter 25 mL into dose field and 100 mL/hr into rate field of order. For KVO fluids, enter rate of 20 mL/hr or less into rate field of order. sodium chloride 0.9% (NS) flush 10 mL 10 mL, IntraVENous, PRN, line care, Starting on Sun09/10/23 at 2030, After every IV line use Linked Groups Order Group 1: Insulin Lispro (Humalog) injection 0-18 UnitsJump to med 0-18 Units, SubCUTAneous, 3 times daily with meals, First dose on Sun09/17/23 at 0800, High Dose Correction Algorithm Glucose: Dose: LESS than 139 No Insulin 140-199 3 Unit 200-249 6 Units 250-299 9 Units 300-349 12 Units 350-400 15 Units Above 400 18 Units And Insulin Lispro (Humalog) injection 0-18 UnitsJump to med 0-18 Units, SubCUTAneous, Nightly, First dose on Sun09/16/23 at 2100, If continuous tube feedings/TPN/NPO, give correction dose based on result, no reduction in dose. If eating or bolus tube feeding: High Dose Correction Algorithm Glucose: Dose: LESS than 139 No Insulin 140-199 3 Unit 200-249 6 Units 250-299 9 Units 300-349 12 Units 350-400 15 Units Above 400 18 Units Group 2: acetaminophen (Tylenol) tablet 650 mgJump to med 650 mg, Oral, Every 6 hours PRN, mild pain (1-3), fever, For temp greater than 100.4 F (38 C), Starting on Sun09/10/23 at 2030, Maximum dose of acetaminophen is 4000 mg from all sources in 24 hours. Or acetaminophen (Tylenol) suppository 650 mgJump to med 650 mg, Rectal, Every 6 hours PRN, mild pain (1-3), fever, For temp greater than 100.4 F (38 C), Starting on Sun09/10/23 at 2030, Administer if oral route cannot be used. Maximum dose of acetaminophen is 4000 mg from all sources in 24 hours. Group 3: ondansetron ODT (Zofran-ODT) disintegrating tablet 4 mgJump to med 4 mg, Oral, Every 8 hours PRN, nausea, vomiting, Starting on Sun09/10/23 at 2030, 1st Line. If inadequate response within 60 minutes, proceed to next-line agent or contact provider if no further options ordered. Patient should allow tablet to dissolve on tongue. Do not remove from blister pack until just before administering. Or ondansetron (Zofran) injection 4 mgJump to med 4 mg, IntraVENous, Every 6 hours PRN, nausea, vomiting, Starting on Sun09/10/23 at 2030, 1st Line. Give IV if patient is unable to take orally. If inadequate response within 60 minutes, proceed to next-line agent or contact provider if no further options ordered. Scheduled Medication Order 12/10/2023 12/11/2023 12/12/2023 cefTRIAXone (Rocephin) 1,000 mg in sodium chloride 0.9 % 50 mL IVPB Mini-Bag Plus 1,000 mg, IntraVENous, at 100 mL/hr, Administer over 30 Minutes, Every 24 hours, First dose on 12/08/23 at 1500, For 5 doses, Mini-Bag Plus bag, Suspected Indication (Select all that apply): Pneumonia (CAP) 1454 (New Bag - Provider: Chelsey Robles, ISABEL)1524 (Stopped - Provider: Chelsey Robles, RN) 1544 (New Bag - Provider: Chelsey Robles RN)1614 (Stopped - Provider: Chelsey Robles RN) 1500 (Canceled Entry - Provider: Automatic Discharge Provider - Comment: Automatically canceled at discontinue of medication order) docusate sodium (Colace) capsule 100 mg 100 mg, Oral, 2 times daily, First dose on Sun12/07/23 at 0900, Do not crush or break. 0826 (Given - Provider: Chelsey Robles RN)2100 (Not Given - Provider: Angel Dean RN - Reason: Patient/family refused) 0956 (Given - Provider: Chelsey Robles RN)2100 (Not Given - Provider: Angel Dean RN - Reason: Patient/family refused) 0943 (Given - Provider: Candace Eastman RN) enoxaparin (Lovenox) syringe 30 mg 30 mg, SubCUTAneous, Every 24 hours scheduled (Daily), First dose on Sun12/07/23 at 0900, Renal dosing, Indication of Use: Prophylaxis-DVT/PE, Indications: Prophylaxis of Venous Thromboembolism 08 (Given - Provider: Chelsey Robles RN) 0900 (Not Given - Provider: Chelsey Robles RN - Reason: Other - Comment: pt agitated. pt refusing.) 0943 (Given - Provider: Candace Eastman RN) haloperidol lactate (Haldol) injection 2 mg (COMPLETED) 2 mg, IntraMUSCular, Once, On Sun12/10/23 at 1315, For 1 dose, IM route of administration preferred. Because of the risk of TdP and QT prolongation, ECG monitoring is recommended if haloperidol is given IV 1315 (Given - Provider: Chelsey Robles RN) insulin glargine (Lantus) injection 4 Units (COMPLETED) 4 Units, SubCUTAneous, Once, On Sun12/10/23 at 0145, For 1 dose 0141 (Given - Provider: Yahaira Chaidez RN) insulin glargine (Lantus) injection 4 Units 4 Units, SubCUTAneous, Nightly, First dose (after last modification) on Sun12/10/23 at 2215 2224 (Given - Provider: Angel Dean RN) 2036 (Given - Provider: Angel Dean RN) Insulin Lispro (Humalog) injection 0-12 Units(Linked Group 1) 0-12 Units, SubCUTAneous, 3 times daily with meals, First dose on Sun12/07/23 at 0800, Medium Dose Correction Algorithm Glucose: Dose: LESS than 139 No Insulin 140-199 2 Unit 200-249 4 Units 250-299 6 Units 300-349 8 Units 350-400 10 Units Above 400 12 Units 0800 (Not Given - Provider: Chelsey Robles RN - Reason: Order parameters not met)1200 (Not Given - Provider: Chelsey Robles RN - Reason: Other - Comment: pt aggressive and punching at staff. not safe to admin)1700 (Not Given - Provider: Chelsey Robles RN - Reason: Order parameters not met) 0800 (Given - Provider: Chelsey Robles RN)1200 (Not Given - Provider: Chelsey Robles RN - Reason: Order parameters not met)1700 (Not Given - Provider: Chelsey Robles RN - Reason: Order parameters not met) 0800 (Not Given - Provider: Candace Eastman RN - Reason: Order parameters not met)1200 (Not Given - Provider: Candace Eastman RN - Reason: Other - Comment: PATIENT NOT EATING)1700 (Canceled Entry - Provider: Automatic Discharge Provider - Comment: Automatically canceled at discontinue of medication order) Insulin Lispro (Humalog) injection 0-12 Units(Linked Group 1) 0-12 Units, SubCUTAneous, Nightly, First dose on Sun12/07/23 at 2100, If continuous tube feedings/TPN/NPO, give correction dose based on result, no reduction in dose. If eating or bolus tube feeding: Medium Dose Correction Algorithm Glucose: Dose: LESS than 139 No Insulin 140-199 2 Unit 200-249 4 Units 250-299 6 Units 300-349 8 Units 350-400 10 Units Above 400 12 Units 2100 (Not Given - Provider: Angel Dean RN - Reason: Patient/family refused - Comment: Pt not eating) 2036 (Given - Provider: Angel Dean RN) Insulin Lispro (Humalog) injection 5 Units 5 Units, SubCUTAneous, Once, On Sun12/09/23 at 0715, For 1 dose, BG 449 per latest reading in chart ipratropium-albuterol (Duo-Neb) 0.5-2.5 mg/3 mL nebulizer solution 3 mL 3 mL, Nebulization, 3 times daily, First dose on Sun12/08/23 at 0900 0840 (Given - Provider: Renea Neely RCP)1255 (Given - Provider: Renea Neely RCP)2032 (Given - Provider: Fabby Cm PRODUCTION MACHINE SHOP SUPERVISOR) 0820 (Given - Provider: Lolis Noel PRODUCTION MACHINE SHOP SUPERVISOR)1705 (Given - Provider: Lolis Noel RCP)2148 (Given - Provider: Fabby Cm PRODUCTION MACHINE SHOP SUPERVISOR) 0826 (Given - Provider: Jada Thomason PRODUCTION MACHINE SHOP SUPERVISOR)1220 (Given - Provider: Jada Thomason PRODUCTION MACHINE SHOP SUPERVISOR) lisinopril tablet 20 mg 20 mg, Oral, Daily, First dose on Sun12/07/23 at 0900 0826 (Given - Provider: Chelsey Robles RN) 0956 (Given - Provider: Chelsey Robles RN) 0943 (Given - Provider: Candace Eastman RN) Melatonin disintegrating tablet 5 mg 5 mg, Oral, Nightly, First dose on Sun12/07/23 at 2099 2013 (Given - Provider: Angel Dean RN) 2036 (Given - Provider: Angel Dean RN) mirtazapine (Remeron) tablet 15 mg 15 mg, Oral, Nightly, First dose on Sun12/07/23 at 2099 2013 (Given - Provider: Angel Dean RN) 2035 (Given - Provider: Angel Dean, ISABEL) QUEtiapine (SEROquel) tablet 12.5 mg 12.5 mg, Oral, 2 times daily, First dose on Sun12/07/23 at 0900 0825 (Given - Provider: Chelsey Robles RN)2013 (Given - Provider: Angel Dean RN) 0956 (Given - Provider: Chelsey Robles RN)2036 (Given - Provider: Angel Dean RN) 0943 (Given - Provider: Candace Eastman RN) sodium chloride 0.9% (NS) flush 10 mL 10 mL, IntraVENous, Every 12 hours scheduled (2 times per day), First dose on Sun12/07/23 at 0900 08 (Given - Provider: Chelsey Robles RN)2014 (Given - Provider: Angel Dean RN) 1000 (Given - Provider: Chelsey Robles, RN)2040 (Given - Provider: Angel Dean RN) 0948 (Given - Provider: Candace Eastman RN) tamsulosin (Flomax) 24 hr capsule 0.8 mg 0.8 mg, Oral, Nightly, First dose on Sun12/07/23 at 2100, Do not crush, chew, or split. 2013 (Given - Provider: Angel Dean RN) 2036 (Given - Provider: Angel Dean RN) PRN Medication Order 12/10/2023 12/11/2023 12/12/2023 acetaminophen (Tylenol) suppository 650 mg(Linked Group 2) 650 mg, Rectal, Every 6 hours PRN, mild pain (1-3), Fever GREATER than 100.4 F (38 C), Starting on Sun12/07/23 at 0442, Administer if oral route cannot be used. acetaminophen (Tylenol) tablet 650 mg(Linked Group 2) 650 mg, Oral, Every 6 hours PRN, mild pain (1-3), Fever GREATER than 100.4 F (38 C), Starting on Sun12/07/23 at 0442, Maximum dose of acetaminophen is 4000 mg from all sources in 24 hours. dextrose 5 % infusion 100 mL/hr, IntraVENous, PRN, Blood sugar less than 70mg/dL, Starting on Sun12/07/23 at 0442, Start infusion following administration of dextrose 50% or glucagon. dextrose 50 % solution 12.5 g 12.5 g, IntraVENous, PRN, low blood sugar, Blood glucose less than 70 mg/dL and patient NOT ALERT or NPO., Starting on Sun12/07/23 at 0442, If patient does not respond within 5 minutes, repeat dose x1. Start D5W at 100 mL/hour until ordering provider can be reached. Repeat blood glucose in 15 minutes. If blood glucose is less than 70 mg/dL, repeat treatment and recheck blood glucose in 15 minutes x2. If using Glucostabilizer, dose as instructed per system. glucagon (human recombinant) injection 1 mg 1 mg, IntraMUSCular, PRN, low blood sugar, Blood glucose less than 70 mg/dL and patient NOT ALERT or NPO and does not have IV access., Starting on Sun12/07/23 at 0442, After administration, attempt intravenous access and start D5W at 100 mL/hr. Repeat blood glucose in 15 minutes x2 and notify provider. glucose oral gel 15 g 15 g, Oral, As needed, low blood sugar, Starting on Sun12/07/23 at 0442, If blood glucose less than 50 mg/dL and patient ALERT and NOT NPO, give 2 tubes glucose gel. If blood glucose less than 70 mg/dL and patient ALERT and NOT NPO, give 1 tube glucose gel. Repeat blood glucose in 15 minutes. If blood glucose is less than 70 mg/dL, repeat treatment and recheck blood glucose in 15 minutes x2 and notify provider. haloperidol (Haldol) solution 1 mg 1 mg, Oral, Every 6 hours PRN, agitation, Starting on Sun12/10/23 at 1205 haloperidol lactate (Haldol) injection 1 mg 1 mg, IntraMUSCular, Every 6 hours PRN, agitation, Starting on Sun12/07/23 at 1215, IM route of administration preferred. Because of the risk of TdP and QT prolongation, ECG monitoring is recommended if haloperidol is given IV 1214 (Given - Provider: Chelsey Robles, RN) 0952 (Given - Provider: Chelsey Robles, RN) hydrALAZINE (Apresoline) injection 10 mg 10 mg, IntraVENous, Every 4 hours PRN, high blood pressure, sbp>150, Starting on Sun12/07/23 at 0442 ipratropium-albuterol (Duo-Neb) 0.5-2.5 mg/3 mL nebulizer solution 3 mL 3 mL, Nebulization, Every 6 hours PRN, shortness of breath, Starting on Sun12/08/23 at 0850 LORazepam (Ativan) tablet 0.25 mg 0.25 mg, Oral, 4 times daily PRN, anxiety, Starting on Sun12/07/23 at 0442 morphine 10 MG/0.5ML concentrated solution 20 mg 20 mg, Oral, Every 2 hour PRN, severe pain (7-10), Starting on Sun12/07/23 at 0442, Concentrated product naloxone (Narcan) injection 0.4 mg 0.4 mg, IntraVENous, Every 5 min PRN, opioid reversal, respiratory depression, Starting on Sun12/07/23 at 0455, +++ For RR <10, pinpoint pupils, over sedation for opioid reversal - MUST notify file conversion operator provider immediately after first dose, may give IM or SQ if no IV access +++ ondansetron (Zofran) injection 4 mg(Linked Group 3) 4 mg, IntraVENous, Every 6 hours PRN, nausea, vomiting, Starting on Sun12/07/23 at 0442, 1st Line. Give IV if patient is unable to take orally. If inadequate response within 60 minutes, proceed to next-line agent or contact provider if no further options ordered. ondansetron ODT (Zofran-ODT) disintegrating tablet 4 mg(Linked Group 3) 4 mg, Oral, Every 8 hours PRN, nausea, vomiting, Starting on Sun12/07/23 at 0442, 1st Line. If inadequate response within 60 minutes, proceed to next-line agent or contact provider if no further options ordered. Patient should allow tablet to dissolve on tongue. Do not remove from blister pack until just before administering. polyethylene glycol (PEG) 3350 (Miralax) packet 17 g 17 g, Oral, Daily PRN, constipation, Starting on Sun12/07/23 at 0442, 1st line for treatment of constipation - give scheduled if no bowel movement in past 24 hours. sodium chloride 0.9 % infusion 5-250 mL/hr, IntraVENous, PRN, if patient receiving piggyback infusions and maintenance fluids are not ordered OR KVO fluids to protect IV site / prevent frequent line interruptions/ long duration, Starting on Sun12/07/23 at 0442, For piggyback infusion, administer at same rate as piggyback for a total of 25 mL. Enter 25 mL into dose field and piggyback rate into rate field of order. If piggyback is infusing at a rate less than 100 mL/hr, enter 25 mL into dose field and 100 mL/hr into rate field of order. For KVO fluids, enter rate of 20 mL/hr or less into rate field of order. sodium chloride 0.9% (NS) flush 10 mL 10 mL, IntraVENous, PRN, line care, Starting on Sun12/07/23 at 0442, After every IV line use Linked Groups Order Group 1: Insulin Lispro (Humalog) injection 0-12 UnitsJump to med 0-12 Units, SubCUTAneous, 3 times daily with meals, First dose on Sun12/07/23 at 0800, Medium Dose Correction Algorithm Glucose: Dose: LESS than 139 No Insulin 140-199 2 Unit 200-249 4 Units 250-299 6 Units 300-349 8 Units 350-400 10 Units Above 400 12 Units And Insulin Lispro (Humalog) injection 0-12 UnitsJump to med 0-12 Units, SubCUTAneous, Nightly, First dose on Sun12/07/23 at 2100, If continuous tube feedings/TPN/NPO, give correction dose based on result, no reduction in dose. If eating or bolus tube feeding: Medium Dose Correction Algorithm Glucose: Dose: LESS than 139 No Insulin 140-199 2 Unit 200-249 4 Units 250-299 6 Units 300-349 8 Units 350-400 10 Units Above 400 12 Units Group 2: acetaminophen (Tylenol) tablet 650 mgJump to med 650 mg, Oral, Every 6 hours PRN, mild pain (1-3), Fever GREATER than 100.4 F (38 C), Starting on Sun12/07/23 at 0442, Maximum dose of acetaminophen is 4000 mg from all sources in 24 hours. Or acetaminophen (Tylenol) suppository 650 mgJump to med 650 mg, Rectal, Every 6 hours PRN, mild pain (1-3), Fever GREATER than 100.4 F (38 C), Starting on Sun12/07/23 at 0442, Administer if oral route cannot be used. Group 3: ondansetron ODT (Zofran-ODT) disintegrating tablet 4 mgJump to med 4 mg, Oral, Every 8 hours PRN, nausea, vomiting, Starting on Sun12/07/23 at 0442, 1st Line. If inadequate response within 60 minutes, proceed to next-line agent or contact provider if no further options ordered. Patient should allow tablet to dissolve on tongue. Do not remove from blister pack until just before administering. Or ondansetron (Zofran) injection 4 mgJump to med 4 mg, IntraVENous, Every 6 hours PRN, nausea, vomiting, Starting on Sun12/07/23 at 0442, 1st Line. Give IV if patient is unable to take orally. If inadequate response within 60 minutes, proceed to next-line agent or contact provider if no further options ordered. Scheduled Medication Order 03/31/2025 04/01/2025 04/02/2025 aspirin EC tablet 81 mg 81 mg, Oral, 2 times daily, First dose on Sun04/01/25 at 1500, For 30 days, Do not crush, chew, or split. 1741 (Given - Provider: Mar Lee, RN) 0606 (Given - Provider: Magdy Griffin, RN)1500 (Canceled Entry - Provider: Automatic Discharge Provider - Comment: Automatically canceled at discontinue of medication order) barium sulfate (Varibar [place], Varibar Honey) 40 % suspension 5 mL (COMPLETED) 5 mL, Oral, Once, On Sun04/02/25 at 0930, For 1 dose 0900 (Given - Provider: RT Chaya (R)) barium sulfate (Varibar Pudding) 40 % oral paste 5 mL (COMPLETED) 5 mL, Oral, Once, On Sun04/02/25 at 0930, For 1 dose, Administer with oral syringe or spoon. Max cumulative dose of 30 mL. Discard any unused product 21 days after tube opened. 0900 (Given - Provider: RT Chaya (R)) barium sulfate (Varibar THIN Liquid) 40 % suspension 5 mL (COMPLETED) 5 mL, Oral, Once, On Sun04/02/25 at 0930, For 1 dose 0900 (Given - Provider: RT Chaya (R)) ceFAZolin (Ancef) 2,000 mg in sodium chloride 0.9 % 100 mL IVPB (COMPLETED) 2,000 mg, IntraVENous, at 200 mL/hr, Administer over 30 Minutes, Every 8 hours, First dose on Sun03/31/25 at 2300, For 2 doses, Phase II/On Unit, Mini-Bag Plus bag, Suspected Indication (Select all that apply): Surgical Prophylaxis 0023 (New Bag - Provider: Magdy Griffin, ISABEL)0053 (Stopped - Provider: Magdy Griffin, RN)0624 (New Bag - Provider: Magdy Griffin, RN)0700 (Stopped - Provider: Magdy Griffin, RN) cholecalciferol (Vitamin D-3) tablet 2,000 Units 2,000 Units, Oral, Daily, First dose on Sun03/31/25 at 0915 1018 (Not Given - Provider: Nate Davis RN - Reason: NPO - Comment: pt cannot tolerate meds without pudding/crushed pt has dementia and is NPO)131 ([facility] Hold - Provider: Automatic Transfer Provider - Reason: Patient not available)175 ([facility] Unhold - Provider: Automatic Transfer Provider) 0829 (Given - Provider: Mar Lee, ISABEL) 0958 (Given - Provider: Lianet Claire, ISABEL) docusate sodium (Colace) capsule 100 mg 100 mg, Oral, 2 times daily, First dose on Sun03/31/25 at 1000, Do not crush or break. 1018 (Not Given - Provider: Nate Davis RN - Reason: Other - Comment: pt cannot tolerate meds without pudding/crushed pt has dementia and is NPODR aware)131 ([facility] Hold - Provider: Automatic Transfer Provider - Reason: Patient not available)175 ([facility] Unhold - Provider: Automatic Transfer Provider)2209 (Not Given - Provider: Magdy Griffin RN - Reason: Patient/family refused - Comment: patient unable to take oral) 08 (Given - Provider: Mar Lee, ISABEL)2016 (Not Given - Provider: Magdy Griffin RN - Reason: Patient/family refused) 0958 (Given - Provider: Lianet Claire, ISABEL) erythromycin (Romycin) 5 MG/GM ophthalmic ointment 1 Application 1 Application, Left Eye, Nightly, First dose on Sun03/31/25 at 2100, Apply Amount per Dose: 0.5 inch (~1 cm) per dose. 1310 ([facility] Hold - Provider: Automatic Transfer Provider - Reason: Patient not available)175 ([facility] Unhold - Provider: Automatic Transfer Provider)2206 (Given - Provider: Magdy Griffin, ISABEL) 2019 (Given - Provider: Magdy Griffin, ISABEL) insulin glargine (Lantus) injection 4 Units 4 Units, SubCUTAneous, Nightly, First dose on Sun03/31/25 at 2100 1310 ([facility] Hold - Provider: Automatic Transfer Provider - Reason: Patient not available)175 ([facility] Unhold - Provider: Automatic Transfer Provider)2204 (Given - Provider: Magdy Griffin, ISABEL) 2014 (Given - Provider: Magdy Griffin RN) Insulin Lispro (Humalog) injection 0-12 Units 0-12 Units, SubCUTAneous, 3 times daily with meals, First dose on Sun04/01/25 at 1200, Medium Dose Correction Algorithm Glucose: Dose: LESS than 150 No Insulin 150-199 2 Units 200-249 4 Units 250-299 6 Units 300-349 8 Units 350-400 10 Units Above 400 12 Units 1141 (Given - Provider: Mar Lee RN)1741 (Given - Provider: Mar Lee RN) 0958 (Given - Provider: Lianet Claire, ISABEL)1200 (Canceled Entry - Provider: Automatic Discharge Provider - Comment: Automatically canceled at discontinue of medication order) lisinopril tablet 20 mg 20 mg, Oral, Daily, First dose on Sun03/31/25 at 1000 1019 (Not Given - Provider: Nate Davis RN - Reason: NPO - Comment: pt cannot tolerate meds without pudding/crushed pt has dementia and is NPODR awarewill give dilaidid IV for pain/bp elevation Dr aware)1310 ([facility] Hold - Provider: Automatic Transfer Provider - Reason: Patient not available)1753 ([facility] Unhold - Provider: Automatic Transfer Provider) 0827 (Given - Provider: Mar Lee RN) 0958 (Given - Provider: Lianet Claire RN) Melatonin disintegrating tablet 5 mg 5 mg, Oral, Nightly, First dose on Sun03/31/25 at 2100 1310 ([facility] Hold - Provider: Automatic Transfer Provider - Reason: Patient not available)1753 ([facility] Unhold - Provider: Automatic Transfer Provider)221 (Not Given - Provider: Magdy Griffin RN - Reason: Patient/family refused - Comment: patient unable to take) 2016 (Given - Provider: Magdy Griffin, ISABEL) mirtazapine (Remeron) tablet 15 mg 15 mg, Oral, Nightly, First dose on Sun03/31/25 at 2100 1310 ([facility] Hold - Provider: Automatic Transfer Provider - Reason: Patient not available)1753 (DEC Unhold - Provider: Automatic Transfer Provider)221 (Not Given - Provider: Magdy Griffin RN - Reason: Patient/family refused - Comment: patient unable to take meds) 2018 (Given - Provider: Magdy Griffin RN) QUEtiapine (SEROquel) tablet 12.5 mg 12.5 mg, Oral, 2 times daily, First dose on Sun03/31/25 at 1000 1019 (Not Given - Provider: Nate Davis RN - Reason: Other - Comment: pt cannot tolerate meds without pudding/crushed pt has dementia and is NPODR aware)131 (DEC Hold - Provider: Automatic Transfer Provider - Reason: Patient not available)1752 (DEC Unhold - Provider: Automatic Transfer Provider)2210 (Not Given - Provider: Magdy Griffin RN - Reason: Patient/family refused - Comment: patient unable to take) 08 (Given - Provider: Mar Lee RN)2015 (Given - Provider: Magdy Griffin RN) 0958 (Given - Provider: Lianet Claire, ISABEL) sodium chloride 0.9% (NS) flush 5-40 mL 5-40 mL, IntraVENous, Every 12 hours, First dose on Sun03/31/25 at 0915, For Line Patency: Peripheral IV = 5 mL; Midline or Central Line = 10 mL/lumen. If following IV push medication, administer flush at same rate as the IV push. Flush volume is determined by type of infusion therapy being given. For non-viscous solutions use: Peripheral IV = 5 mL Midline or Central Line = 10 mL/lumen For viscous solutions (i.e. blood components, parenteral nutrition, contrast media, or after obtaining blood sample) use: Peripheral IV = 10 mL Midline or Central Line = 20 mL/lumen 1017 (Given - Provider: Nate Davis RN)131 ([facility] Hold - Provider: Automatic Transfer Provider - Reason: Patient not available)1752 ([facility] Unhold - Provider: Automatic Transfer Provider)2212 (Not Given - Provider: Magdy Griffin RN - Reason: IV Fluids Infusing) 08 (Given - Provider: Mar Lee RN)2025 (Not Given - Provider: Magdy Griffin RN - Reason: Loss of IV access) 0958 (Not Given - Provider: Lianet Claire RN - Reason: Other - Comment: no iv access) tamsulosin (Flomax) 24 hr capsule 0.8 mg 0.8 mg, Oral, Nightly, First dose on Sun03/31/25 at 2100, Do not crush, chew, or split. 1310 ([facility] Hold - Provider: Automatic Transfer Provider - Reason: Patient not available)175 (DEC Unhold - Provider: Automatic Transfer Provider)2211 (Not Given - Provider: Magdy Griffin, ISABEL - Reason: Patient/family refused - Comment: patient unable to take) 2016 (Not Given - Provider: Magdy Griffin RN - Reason: Patient/family refused) Continuous Medication Order 03/31/2025 04/01/2025 04/02/2025 dextrose 5 % and sodium chloride 0.45 % infusion (CANCELED) 75 mL/hr, IntraVENous, Continuous, Starting on Sun03/30/25 at 2350 0141 (New Bag - Provider: Flakita Tenorio, RN) 1315 (Stopped - Provider: Mar Lee, ISABEL) dextrose 5 % and sodium chloride 0.45 % infusion () 75 mL/hr, IntraVENous, Continuous, Starting on Sun03/31/25 at 0915, For 12 hours 1016 (New Bag - Provider: Nate Davis, ISABEL)1300 (Stopped - Provider: Emil Huber, ISABEL - Comment: going to [place])1810 (Restarted - Provider: Emil Huber, RN)2300 (Stopped - Provider: Magdy Griffin, RN) PRN Medication Order 03/31/2025 04/01/2025 04/02/2025 acetaminophen (Tylenol) tablet 650 mg 650 mg, Oral, Every 6 hours PRN, mild pain (1-3), Starting on Sun04/01/25 at 0845, Maximum dose of acetaminophen is 4000 mg from all sources in 24 hours. 1338 (Given - Provider: Mar Lee, RN)2354 (Given - Provider: Magdy Griffin, RN) dextrose 5 % infusion 100 mL/hr, IntraVENous, PRN, Blood sugar less than 70mg/dL, Starting on Sun03/31/25 at 0911, Start infusion following administration of dextrose 50% or glucagon. 1310 (DEC Hold - Provider: Automatic Transfer Provider - Reason: Patient not available)175 (DEC Unhold - Provider: Automatic Transfer Provider) dextrose 50 % solution 12.5 g 12.5 g, IntraVENous, PRN, low blood sugar, Blood glucose less than 70 mg/dL and patient NOT ALERT or NPO., Starting on Sun03/31/25 at 0911, If patient does not respond within 5 minutes, repeat dose x1. Start D5W at 100 mL/hour until ordering provider can be reached. Repeat blood glucose in 15 minutes. If blood glucose is less than 70 mg/dL, repeat treatment and recheck blood glucose in 15 minutes x2. If using Glucostabilizer, dose as instructed per system. 1310 ([facility] Hold - Provider: Automatic Transfer Provider - Reason: Patient not available)1753 ([facility] Unhold - Provider: Automatic Transfer Provider) glucagon (human recombinant) injection 1 mg 1 mg, IntraMUSCular, PRN, low blood sugar, Blood glucose less than 70 mg/dL and patient NOT ALERT or NPO and does not have IV access., Starting on Sun03/31/25 at 0911, After administration, attempt intravenous access and start D5W at 100 mL/hr. Repeat blood glucose in 15 minutes x2 and notify provider. 1310 ([facility] Hold - Provider: Automatic Transfer Provider - Reason: Patient not available)1753 ([facility] Unhold - Provider: Automatic Transfer Provider) glucose oral gel 15 g 15 g, Oral, As needed, low blood sugar, Starting on Sun03/31/25 at 0911, If blood glucose less than 50 mg/dL and patient ALERT and NOT NPO, give 2 tubes glucose gel. If blood glucose less than 70 mg/dL and patient ALERT and NOT NPO, give 1 tube glucose gel. Repeat blood glucose in 15 minutes. If blood glucose is less than 70 mg/dL, repeat treatment and recheck blood glucose in 15 minutes x2 and notify provider. 1310 ([facility] Hold - Provider: Automatic Transfer Provider - Reason: Patient not available)1753 ([facility] Unhold - Provider: Automatic Transfer Provider) HYDROmorphone (Dilaudid) injection 0.25 mg 0.25 mg, IntraVENous, Every 4 hours PRN, severe pain (7-10), Starting on Sun03/31/25 at 1004, If oral and injectable narcotics ordered, use oral first and only use injectable if oral is ineffective or cannot take oral. Do Not give oral and injectable within 1 hour of each other unless specifically ordered. 1024 (Given - Provider: Nate Davis RN)1310 ([facility] Hold - Provider: Automatic Transfer Provider - Reason: Patient not available)175 ([facility] Unhold - Provider: Automatic Transfer Provider) Insulin Lispro (Humalog) injection 0-12 Units (COMPLETED) 0-12 Units, SubCUTAneous, PRN, high blood sugar, Surgery patient, Starting on Sun03/31/25 at 1322, For 1 dose, Preprocedure, Corrective Low Dose Algorithm Glucose: Dose: 70-180 No Insulin 181-240 4 Unit 241-300 6 Units 301-350 8 Units 351-400 10 Units Over 400 12 Units and notify physician 1328 (Given - Provider: Carrol Martinez RN) LORazepam (Ativan) tablet 0.25 mg 0.25 mg, Oral, 4 times daily PRN, anxiety, Starting on Sun03/31/25 at 0911 1310 ([facility] Hold - Provider: Automatic Transfer Provider - Reason: Patient not available)1752 ([facility] Unhold - Provider: Automatic Transfer Provider) naloxone (Narcan) injection 0.4 mg 0.4 mg, IntraVENous, Every 5 min PRN, opioid reversal, respiratory depression, Starting on Sun03/31/25 at 1006, +++ For RR <10, pinpoint pupils, over sedation for opioid reversal - MUST notify file conversion operator provider immediately after first dose, may give IM or SQ if no IV access +++ 1310 ([facility] Hold - Provider: Automatic Transfer Provider - Reason: Patient not available)1752 ([facility] Unhold - Provider: Automatic Transfer Provider) ondansetron (Zofran) injection 4 mg(Linked Group 1) 4 mg, IntraVENous, Every 6 hours PRN, nausea, vomiting, Starting on Sun03/31/25 at 0911, 1st Line. Give IV if patient is unable to take orally. If inadequate response within 60 minutes, proceed to next-line agent or contact provider if no further options ordered. 1310 ([facility] Hold - Provider: Automatic Transfer Provider - Reason: Patient not available)1752 ([facility] Unhold - Provider: Automatic Transfer Provider) ondansetron ODT (Zofran-ODT) disintegrating tablet 4 mg(Linked Group 1) 4 mg, Oral, Every 8 hours PRN, nausea, vomiting, Starting on Sun03/31/25 at 0911, 1st Line. If inadequate response within 60 minutes, proceed to next-line agent or contact provider if no further options ordered. Patient should allow tablet to dissolve on tongue. Do not remove from blister pack until just before administering. 1310 ([facility] Hold - Provider: Automatic Transfer Provider - Reason: Patient not available)175 ([facility] Unhold - Provider: Automatic Transfer Provider) sodium chloride 0.9 % infusion 5-250 mL/hr, IntraVENous, PRN, if patient receiving piggyback infusions and maintenance fluids are not ordered OR KVO fluids to protect IV site / prevent frequent line interruptions / long duration, Starting on Sun03/31/25 at 0911, For piggyback infusion, administer at same rate as piggyback for a total of 25 mL. Enter 25 mL into dose field and piggyback rate into rate field of order. If piggyback is infusing at a rate less than 100 mL/hr, enter 25 mL into dose field and 100 mL/hr into rate field of order. For KVO fluids, enter rate of 20 mL/hr or less into rate field of order. 1310 ([facility] Hold - Provider: Automatic Transfer Provider - Reason: Patient not available)175 ([facility] Unhold - Provider: Automatic Transfer Provider) sodium chloride 0.9 % irrigation solution (CANCELED) As needed, Starting on Sun03/31/25 at 1449, Intraprocedure 1449 (Given - Provider: Trae Deleon MD) sodium chloride 0.9% (NS) flush 5-40 mL 5-40 mL, IntraVENous, PRN, line care, After every IV line use, Starting on Sun03/31/25 at 0911, For Line Patency: Peripheral IV = 5 mL; Midline or Central Line = 10 mL/lumen. If following IV push medication, administer flush at same rate as the IV push. Flush volume is determined by type of infusion therapy being given. For non-viscous solutions use: Peripheral IV = 5 mL Midline or Central Line = 10 mL/lumen For viscous solutions (i.e. blood components, parenteral nutrition, contrast media, or after obtaining blood sample) use: Peripheral IV = 10 mL Midline or Central Line = 20 mL/lumen 1310 ([facility] Hold - Provider: Automatic Transfer Provider - Reason: Patient not available)175 ([facility] Unhold - Provider: Automatic Transfer Provider) Linked Groups Order Group 1: ondansetron ODT (Zofran-ODT) disintegrating tablet 4 mgJump to med 4 mg, Oral, Every 8 hours PRN, nausea, vomiting, Starting on Sun03/31/25 at 0911, 1st Line. If inadequate response within 60 minutes, proceed to next-line agent or contact provider if no further options ordered. Patient should allow tablet to dissolve on tongue. Do not remove from blister pack until just before administering. Or ondansetron (Zofran) injection 4 mgJump to med 4 mg, IntraVENous, Every 6 hours PRN, nausea, vomiting, Starting on Sun03/31/25 at 0911, 1st Line. Give IV if patient is unable to take orally. If inadequate response within 60 minutes, proceed to next-line agent or contact provider if no further options ordered. Care Teams (unrecognized sec tion and content) Team Status: Active Member Role Status Dates Dr. Javy Lynn Sr. , DO Primary Care Provider Active Team Status: Active Member Role Status Dates Dr. Javy Lynn Sr. , DO Primary Care Provider Active Start: November 07, 2024 Javy REDDY MD Attending Provider Active S tart: November 07, 2024 Team Status: Active Member Role Status Dates Dr. Javy Lynn Sr. , DO Primary Care Provider Active Start: November 26, 2024 Javy REDDY MD Attending Provider Active S tart: November 26, 2024 Team Status: Active Member Role Status Dates Dr. Javy Lynn Sr. , DO Primary Care Provider Active Start: February 11, 2025 Javy REDDY MD Attending Provider Active S tart: February 11, 2025 Team Status: Inactive Member Role Status Dates Dr. Javy Lynn Sr. , DO Primary Care Provider Active Start: February 12, 2025 End: February 12, 2025 Javy REDDY MD Attending Provider Active S tart: February 12, 2025 End: February 12, 2025 Team Status: Active Member Role Status Dates Dr. Javy Lynn Sr. , DO Primary Care Provider Active Start: February 17, 2025 Javy REDDY MD Attending Provider Active S tart: February 17, 2025 Team Status: Active Member Role Status Dates Dr. Javy Lynn Sr. , DO Primary Care Provider Active Start: March 02, 2025 Javy REDDY MD Attending Provider Active S tart: March 02, 2025 Team Status: Active Member Role Status Dates Dr. Javy Lynn Sr. , DO Primary Care Provider Active Start: March 03, 2025 Javy REDDY MD Attending Provider Active S tart: March 03, 2025 Director Of Clinical Education Relationship Specialty Start Date End Date Dudley Cobb MD [address] [place] [address] PCP - General 12/07/16 Director Of Clinical Education Relationship Specialty Start Date End Date Dudley Cobb MD [address] [place] [address] PCP - General 12/07/16 Director Of Clinical Education Relationship Specialty Start Date End Date Dudley Cobb MD [address] [place] [address] PCP - General 12/07/16 Director Of Clinical Education Relationship Specialty Start Date End Date Marj Plasencia [address] [place] [address] PCP - General Internal Medicine 01/19/23 Director Of Clinical Education Relationship Specialty Start Date End Date Marj Plasencia [address] [place] [address] PCP - General Internal Medicine 01/19/23 Team Status: Inactive Member Role Status Dates Dr. Iman Webster MD Emergency Provider Active Dr. Javy Lynn Sr. , DO Primary Care Provider Active Team Status: Inactive Member Role Status Dates Dr. Iman Webster MD Attending Provider, Emergency Provider Active Dr. Javy Lynn Sr. , DO Primary Care Provider Active Team Status: Active Member Role Status Dates Dr. Javy Lynn Sr. , DO Primary Care Provider Active Javy REDDY MD Attending Provider Active Team Status: Inactive Member Role Status Dates Dr. Javy Lynn Sr. , DO Primary Care Provider Active Javy REDDY MD Attending Provider Active Director Of Clinical Education Relationship Specialty Start Date End Date Marj Plasencia [address] [place] [phone] PCP - General Internal Medicine 01/19/23 Team Status: Active Member Role Status Dates Dr. Javy Lynn Sr. , DO Primary Care Provider Active Javy RDEDY MD Attending Provider, Referring Pro vider Active Team Status: Inactive Member Role Status Dates Dr. Javy Lynn Sr. , DO Primary Care Provider Active Javy REDDY MD Attending Provider, Referring Pro vider Active Team Status: Inactive Member Role Status Dates Dr. Javy Lynn Sr. , DO Primary Care Provider Active Start: February 11, 2025 End: February 11, 2025 Javy REDDY MD Attending Provider Active S tart: February 11, 2025 End: February 11, 2025 Team Status: Inactive Member Role Status Dates Dr. Javy Lynn Sr. , DO Primary Care Provider Active Start: March 02, 2025 End: March 02, 2025 Javy REDDY MD Attending Provider Active S tart: March 02, 2025 End: March 02, 2025 Director Of Clinical Education Relationship Specialty Start Date End Date Marj Plasencia [address] [place] [phone] PCP - General Internal Medicine 01/19/23 Director Of Clinical Education Relationship Specialty Start Date End Date Marj Plasencia [address] [place] [phone] PCP - General Internal Medicine 01/19/23 Team Status: Inactive Member Role Status Dates Dr. Javy Lynn Sr. , DO Primary Care Provider Active Start: February 17, 2025 End: February 17, 2025 Javy REDDY MD Attending Provider Active S tart: February 17, 2025 End: February 17, 2025 Javy Leah REDDY MD Referring Provider Active S tart: February 17, 2025 End: February 17, 2025 Director Of Clinical Education Relationship Specialty Start Date End Date Marj Plasencia [address] [place] [phone] PCP - General Internal Medicine 01/19/23 Director Of Clinical Education Relationship Specialty Start Date End Date Marj Plasencia [address] [place] [phone] PCP - General Internal Medicine 01/19/23 Goals (unrecognized section and content) Goals may be documented in a n alternate sectionGoals may be documented in an alternate sectionGoals may be documented in an alternate sectionGoals may be documented in an alternate sectionGoals may be documented in an alternate sectionGoals may be documented in an alternate sectionGoals may be documented in an alternate sectionGoals may be documented in an alternate section FOR RECORDS PERTAINING TO PATIENTS WHO ARE OR HAVE BEEN ENROLLED IN A CHEMICAL DEPENDENCY/SUBSTANCEABUSE PROGRAM, SOME INFORMATION MAY BE OMITTED. This clinical summary was aggregated from multiple sources. Caution should be exercised in using it in the provision of clinical care. This summary normalizes information from multiple sources, and as a consequence, information in this document may materially change the coding, format and clinical context of patient data. In addition, data may be omitted in some cases. CLINICAL DECISIONS SHOULD BE BASED ON THE PRIMARY CLINICAL RECORDS. [employer] [facility] provides no warranty or guarantee of the accuracy or completeness of information in this document.
[2025-08-18 08:48] LABS: Hematocrit 34.1 % (40-54); Hemoglobin 11.4 g/dL (13.0-16.5); Mean Corp Hgb Conc 33.4 g/dL (32-36); Mean Corpuscular Volume 89.5 fL (80-94); Mean Platelet Vol. 11.2 fl (6.2-12.0); Platelet Count 141 K/mm3 (150-450); RBC Distribution Width CV 13.5 % (11.6-14.6); RBC Distribution Width SD 44.3 fl (35.1-43.9); Red Blood Count 3.81 M/mm3 (4.6-6.2); White Blood Count 4.0 K/mm3 (4.4-11.0)
[2025-08-18 09:06] LABS: AST(SGOT) 20 U/L (<=37); Alanine Aminotransfer ALT/SGPT 13 U/L (<=46); Albumin, Serum 3.4 g/dL (3.4-4.8); Alkaline Phosphatase 113 U/L (40-129); Anion Gap 7 (5-15); BUN 34 mg/dL (4-19); BUN/Creat Ratio 29.0 RATIO (10-20); Calcium,Total 9.4 mg/dL (7.6-11.0); Carbon Dioxide 30.0 mmol/L (21.0-32.0); Chloride 103 mmol/L (98-108); Globulin 2.7 g/dL (2.2-4.2); Glucose 105 mg/dL (70-99); Potassium 4.3 mmol/L (3.3-5.1)
[2025-08-18 09:07] LABS: Valproic Acid (Depakene) Level 17 ug/mL (50-100)
== END ==
LOC: OLS.ACH 05:00
PROVIDERS: PCP Internal Medicine; Visit Provider Internal Medicine
DX: I10 Essential (primary) hypertension (principal); E78.5 Hyperlipidemia, unspecified; F03.911 Unspecified dementia, unspecified severity, with agitation
CPT/HCPCS: 36415; 80053; 80164; 85027

== ENCOUNTER → 2025-08-20 | Outpatient (REF) | payer MEDICARE, SELFPAY ==
--- OUTSIDE RECORDS SUMMARY | 2025-08-20 04:30 | XMS RPT_ITS | CCD ---
Author Organization [facility] ion [facility] Care Team Providers Care Director Of Community Life Name Role Phone Dudley Cobb Primary Care Unavailable Dudley Cobb Referring Unavailable ZAIN SAMAYOA Attending Unavailjenni Cobb MD, Dudley Primary Care Provider Marj Plasencia Primary Care Provider Marj Plasencia Primary Care Provider Deperro Sr. DO, Dr. Palafox Primary Care [...] on Sun12/07/23 at 0600 barium sulfate (Varibar [place], Varibar Honey) 40 % suspension 5 mL (2 sources) Start: 04-02-2025 End: 04-02-2025 take 5 mL by mouth once 5 mL, Oral, Once, On Sun04/02/25 at 0930, For 1 dose barium sulfate (Varibar Pudding) 40 % oral paste 5 mL (2 sources) Start: 04-02-2025 End: 04-02-2025 5 mL, Oral, Once, On Sun04/02/25 at 0930, For 1 dose, Administer with oral syringe or spoon. Max cumulative dose of 30 mL. Discard any unused product 21 days after tube opened. barium sulfate (Varibar THIN Liquid) 40 % suspension 5 mL (2 sources) Start: 04-02-2025 End: 04-02-2025 take 5 mL by mouth once 5 mL, Oral, Once, On Sun04/02/25 at 0930, For 1 dose ceFAZolin (Ancef) [...] does not have IV access., Starting on 09/10/23 at 2030, After administration, attempt intravenous access [...] Start: 03-31-2025 End: 03-31-2025 0-12 Units, SubCUTAneous, [place] N, high blood sugar, Surgery patient, Starting [...] mL IVPB Mini-Bag Plus polyethylene glycol 3350 20420 mg powder for oral solution (6 sources) [...] sources) Dehydration; Translations: [Dehydration] Onset: 03-01-2022 Episodic Other diseases of kidney and ureters (2 sources) Disorder of kidney and ureter, unspecified; Translations: [Disorder of kidney and ureter, unspecified] Onset: 03-01-2022 Episodic Pneumonia (except that caused by tuberculosis or sexually transmitted disease) (13 sources) Infective pneumonia; Translations: [Pneumonia, unspecified organism] Onset: 12-06-2023 12-06-2023 Episodic Residual codes; unclassified (2 sources) Do not resuscitate; Translations: [Do not resuscitate] Onset: 03-01-2022 Episodic Viral infection (15 sources) Disease caused by 2019-nCoV; Translations: [COVID-19] Onset: 09-10-2023 09-10-2023 Episodic Results Test Name Value Interpretation Reference Range Facility CBC-Complete Blood Cnt No Di ffon 08-18-2025 Erythrocyte distribution width (RBC) [Ratio] 13.5 % Normal 11.6-14.6 [facility] Comment on above: Order Comment: ZACH TER SPECIMEN Performed By: #### L 500.4050, M100.2200, L400.0001, L100.0100 #### [facility] [address] [place], [address] Hematocrit (Bld) [Volume fraction] 34.1 % Low 40-54 [facility] Comment on above: Order Comment: ZACH TER SPECIMEN Performed By: #### L 500.4050, M100.2200, L400.0001, L100.0100 #### [facility] [address] [place], [address] Hemoglobin (Bld) [Mass/Vol] 11.4 g/dL Low 13.0-16.5 [facility] Comment on above: Order Comment: ZACH TER SPECIMEN Performed By: #### L 500.4050, M100.2200, L400.0001, L100.0100 #### [facility] [address] [place], [address] MCH (RBC) [Entitic mass] 29.9 pg Normal 27.0-32.0 [facility] Comment on above: Order Comment: ZACH TER SPECIMEN Performed By: #### L 500.4050, M100.2200, L400.0001, L100.0100 #### [facility] [address] [place], [address] MCHC (RBC) [Mass/Vol] 33.4 g/dL Normal 32-36 [facility] Comment on above: Order Comment: ZACH TER SPECIMEN Performed By: #### L 500.4050, M100.2200, L400.0001, L100.0100 #### [facility] [address] [place], [address] MCV (RBC) [Entitic vol] 89.5 fL Normal 80-94 [facility] Comment on above: Order Comment: ZACH TER SPECIMEN Performed By: #### L 500.4050, M100.2200, L400.0001, L100.0100 #### [facility] [address] [place], [address] Platelet mean volume (Bld) [Entitic vol] 11.2 fL Normal 6.2-12.0 [facility] Comment on above: Order Comment: ZACH TER SPECIMEN Performed By: #### L 500.4050, M100.2200, L400.0001, L100.0100 #### [facility] [address] [place], [address] Platelets (Bld) [#/Vol] 141 10*3/uL Low 150-450 [facility] Comment on above: Order Comment: ZACH TER SPECIMEN Performed By: #### L 500.4050, M100.2200, L400.0001, L100.0100 #### [facility] [address] [place], [address] RBC (Bld) [#/Vol] 3.81 10*6/uL Low 4.6-6.2 [facility] Comment on above: Order Comment: ZACH TER SPECIMEN Performed By: #### L 500.4050, M100.2200, L400.0001, L100.0100 #### [facility] [address] [place], [address] RDW SD 44.3 fl High 35.1-43.9 [facility] Comment on above: Order Comment: ZACH TER SPECIMEN Performed By: #### L 500.4050, M100.2200, L400.0001, L100.0100 #### [facility] [address] [place], [address] WBC (Bld) [#/Vol] 4.0 10*3/uL Low 4.4-11.0 [facility] Comment on above: Order Comment: ZACH TER SPECIMEN Performed By: #### L 500.4050, M100.2200, L400.0001, L100.0100 #### [facility] [address] [place], [address] Comprehensive Metabolic Prof ilon 08-18-2025 Albumin [Mass/Vol] 3.4 g/dL Normal 3.4-4.8 [facility] Comment on above: Order Comment: 206.2 Performed By: #### L 500.4050, M100.2200, L400.0001, L100.0100 #### [facility] [address] [place], [address] Albumin/Globulin [Mass ratio] 1.3 {ratio} Normal 0.9-2.4 [facility] Comment on above: Order Comment: 206.2 Performed By: #### L 500.4050, M100.2200, L400.0001, L100.0100 #### [facility] [address] [place], [address] ALK PHOS 113 U/L Normal 40-129 [facility] Comment on above: Order Comment: 206.2 Performed By: #### L 500.4050, M100.2200, L400.0001, L100.0100 #### [facility] [address] [place], [address] ALT [Catalytic activity/Vol] 13 U/L Normal <=46 [facility] Comment on above: Order Comment: 206.2 Performed By: #### L 500.4050, M100.2200, L400.0001, L100.0100 #### [facility] [address] [place], [address] AST [Catalytic activity/Vol] 20 U/L Normal <=37 [facility] Comment on above: Order Comment: 206.2 Performed By: #### L 500.4050, M100.2200, L400.0001, L100.0100 #### [facility] [address] [place], [address] Bilirubin [Mass/Vol] 0.27 mg/dL Normal 0.00-1.30 [facility] Comment on above: Order Comment: 206.2 Performed By: #### L 500.4050, M100.2200, L400.0001, L100.0100 #### [facility] [address] [place], [address] BUN/CRE 29.0 RATIO High 10-20 [facility] Comment on above: Order Comment: 206.2 Performed By: #### L 500.4050, M100.2200, L400.0001, L100.0100 #### [facility] [address] [place], [address] Calcium [Mass/Vol] 9.4 mg/dL Normal 7.6-11.0 [facility] Comment on above: Order Comment: 206.2 Performed By: #### L 500.4050, M100.2200, L400.0001, L100.0100 #### [facility] [address] [place], [address] Chloride [Moles/Vol] 103 mmol/L Normal 98-108 [facility] Comment on above: Order Comment: 206.2 Performed By: #### L 500.4050, M100.2200, L400.0001, L100.0100 #### [facility] [address] [place], [address] CO2 [Moles/Vol] 30.0 mmol/L Normal 21.0-32.0 [facility] Comment on above: Order Comment: 206.2 Performed By: #### L 500.4050, M100.2200, L400.0001, L100.0100 #### [facility] [address] [place], [address] Creatinine [Mass/Vol] 1.16 mg/dL Normal 0.70-1.20 [facility] Comment on above: Order Comment: 206.2 Performed By: #### L 500.4050, M100.2200, L400.0001, L100.0100 #### [facility] [address] [place], [address] GAP 7 Normal 5-15 [facility] Comment on above: Order Comment: 206.2 Performed By: #### L 500.4050, M100.2200, L400.0001, L100.0100 #### [facility] [address] [place], [address] GFR/1.73 sq M.predicted among non-blacks MDRD (S/P/Bld) [Vol rate/Area] 60 mL/min/{1.73_m2} Normal >60 [facility] Comment on above: Order Comment: 206.2 Result Comment: mL/m in/1.73m2 CKD-EPI Creatinine Equation (2020) Performed By: #### L 500.4050, M100.2200, L400.0001, L100.0100 #### [facility] [address] [place], [address] Globulin (S) [Mass/Vol] 2.7 g/dL Normal 2.2-4.2 [facility] Comment on above: Order Comment: 206.2 Performed By: #### L 500.4050, M100.2200, L400.0001, L100.0100 #### [facility] [address] [place], [address] Glucose [Mass/Vol] 105 mg/dL High 70-99 [facility] Comment on above: Order Comment: 206.2 Performed By: #### L 500.4050, M100.2200, L400.0001, L100.0100 #### [facility] [address] [place], [address] Potassium [Moles/Vol] 4.3 mmol/L Normal 3.3-5.1 [facility] Comment on above: Order Comment: 206.2 Performed By: #### L 500.4050, M100.2200, L400.0001, L100.0100 #### [facility] [address] [place], [address] Sodium [Moles/Vol] 141 mmol/L Normal 133-145 [facility] Comment on above: Order Comment: 206.2 Performed By: #### L 500.4050, M100.2200, L400.0001, L100.0100 #### [facility] [address] [place], [address] T PROT 6.1 g/dL Normal 5.9-8.4 [facility] Comment on above: Order Comment: 206.2 Performed By: #### L 500.4050, M100.2200, L400.0001, L100.0100 #### [facility] [address] [place], [address] Urea nitrogen [Mass/Vol] 34 mg/dL High -19 [facility] Comment on above: Order Comment: 206.2 Performed By: #### L 500.4050, M100.2200, L400.0001, L100.0100 #### [facility] [address] [place], [address] Valproic Acid (Depakene) Lev angel 08-18-2025 VALPROIC ACID 17 ug/mL Low 50-100 [facility] Comment on above: Order Comment: 206.2 Result Comment: Valp roic Acid concentrations >100 ug/mL are potentially toxic. Performed By: #### L 500.4050, M100.2200, L400.0001, L100.0100 #### [facility] [address] [place], [address] Urine Cultureon 07-10-2025 [facility] Enterococcus faecalis Beta Lactamase-Reportable Negative [place] Count >100,000 Enterococcus faecalis: REACTION Ampicillin Islt PAVEL <=2 S Ciprofloxacin Islt PAVEL <=0.5 Gentamicin Synergy Susc Islt SYN-S S levoFLOXacin Islt PAVEL 1 S Linezolid Islt PAVEL 2 S Nitrofurantoin Islt PAVEL <=16 S Streptomycin High Pot Susc Islt SYN-S S Tetracycline Islt PAVEL >=16 R Vancomycin Islt PAVEL 1 S Normal [facility] Comment on above: Performed By: #### L 500.4050, M100.2200, L400.0001, L100.0100 #### [facility] [address] [place], [address] Basic Metabolic Profile (BMP )on 07-08-2025 Glucose [Mass/Vol] 111 mg/dL High 70-99 [facility] Comment on above: Order Comment: Performed By: #### L 500.4050, M100.2200, L400.0001, L100.0100 #### [facility] [address] [place], [address] CBC-Complete Blood Cnt No Di ffon 07-08-2025 Erythrocyte distribution width (RBC) [Ratio] 13.7 % Normal 11.6-14.6 [facility] Comment on above: Order Comment: Performed By: #### L 500.4050, M100.2200, L400.0001, L100.0100 #### [facility] [address] [place], [address] Hematocrit (Bld) [Volume fraction] 33.4 % Low 40-54 [facility] Comment on above: Order Comment: - Performed By: #### L 500.4050, M100.2200, L400.0001, L100.0100 #### [facility] [address] [place], [address] Hemoglobin (Bld) [Mass/Vol] 11.1 g/dL Low 13.0-16.5 [facility] Comment on above: Order Comment: 206-2 Performed By: #### L 500.4050, M100.2200, L400.0001, L100.0100 #### [facility] [address] [place], [address] MCH (RBC) [Entitic mass] 29.9 pg Normal 27.0-32.0 [facility] Comment on above: Order Comment: 206-2 Performed By: #### L 500.4050, M100.2200, L400.0001, L100.0100 #### [facility] [address] [place], [address] MCHC (RBC) [Mass/Vol] 33.2 g/dL Normal 32-36 [facility] Comment on above: Order Comment: 206-2 Performed By: #### L 500.4050, M100.2200, L400.0001, L100.0100 #### [facility] [address] [place], [address] MCV (RBC) [Entitic vol] 90.0 fL Normal 80-94 [facility] Comment on above: Order Comment: 206-2 Performed By: #### L 500.4050, M100.2200, L400.0001, L100.0100 #### [facility] [address] [place], [address] Platelet mean volume (Bld) [Entitic vol] 11.4 fL Normal 6.2-12.0 [facility] Comment on above: Order Comment: 206-2 Performed By: #### L 500.4050, M100.2200, L400.0001, L100.0100 #### [facility] [address] [place], [address] Platelets (Bld) [#/Vol] 151 10*3/uL Normal 150-450 [facility] Comment on above: Order Comment: 206-2 Performed By: #### L 500.4050, M100.2200, L400.0001, L100.0100 #### [facility] [address] [place], [address] RBC (Bld) [#/Vol] 3.71 10*6/uL Low 4.6-6.2 [facility] Comment on above: Order Comment: 206-2 Performed By: #### L 500.4050, M100.2200, L400.0001, L100.0100 #### [facility] [address] [place], [address] RDW SD 44.7 fl High 35.1-43.9 [facility] Comment on above: Order Comment: 206-2 Performed By: #### L 500.4050, M100.2200, L400.0001, L100.0100 #### [facility] [address] [place], [address] WBC (Bld) [#/Vol] 4.7 10*3/uL Normal 4.4-11.0 [facility] Comment on above: Order Comment: 206-2 Performed By: #### L 500.4050, M100.2200, L400.0001, L100.0100 #### [facility] [address] [place], [address] Urinalysis, Completeon 07-08 WBC 0-5 SEEN Normal 0-5 [facility] Comment on above: Order Comment: 206-2 CATHETER SPECIMEN Performed By: #### L 500.4050, M100.2200, L400.0001, L100.0100 #### [facility] [address] [place], [address] BACTERIA 0 SEEN Normal None Seen [facility] Comment on above: Order Comment: 206-2 CATHETER SPECIMEN Performed By: #### L 500.4050, M100.2200, L400.0001, L100.0100 #### [facility] [address] [place], [address] EPI,SQUAMOUS 0 SEEN Normal 0-5 [facility] Comment on above: Order Comment: 206-2 CATHETER SPECIMEN Performed By: #### L 500.4050, M100.2200, L400.0001, L100.0100 #### [facility] [address] [place], [address] Mucus Ql (Urine sed) 0 SEEN Normal [facility] Comment on above: Order Comment: 206-2 CATHETER SPECIMEN Performed By: #### L 500.4050, M100.2200, L400.0001, L100.0100 #### [facility] [address] [place], [address] RBC 0 SEEN Normal 0-5 [facility] Comment on above: Order Comment: 206-2 CATHETER SPECIMEN Performed By: #### L 500.4050, M100.2200, L400.0001, L100.0100 #### [facility] [address] [place], [address] 29on 04-21-2025 29 Addended by: EBONI JIMENEZ on: 04/21/2025 02:56 PM Modules accepted: Orders [facility] 36on 04-21-2025 36 Faxed orders to number provided. [facility] 36 Let me know what to send over. [facility] 36 Kerline calling due to family request to cancel in office appointment, due to it being difficult on the patient who is has advanced alzheimer's. IPO was cancelled per their request. Please fax orders for imaging and wound care/post op as needed to [phone]. Thank you! DOS: 03/31/25 R ORIF [facility] 36on 04-20-2025 36 Faxed to number provided [facility] Urine Cultureon 04-18-2025 URC Enterococcus faecalis [place] Count 11,000-25,000 Enterococcus faecalis: REACTION Ampicillin Islt PAVEL <=2 Ciprofloxacin Islt PAVEL 1 S Gentamicin Synergy Susc Islt SYN-S S levoFLOXacin Islt PAVEL 1 S Linezolid Islt PAVEL 2 S Nitrofurantoin Islt PAVEL <=16 S Streptomycin High Pot Susc Islt SYN-S S Tetracycline Islt PAVEL >=16 R Vancomycin Islt PAVEL 1 S Normal [facility] Comment on above: Performed By: #### L 500.4050, M100.2200, L400.0001, L100.0100 #### [facility] [address] [place], [address] 36on 04-17-2025 36 Name of caller: Carlotta Contact phone number: [phone] Relationship to Patient: HIGINIO Urbano Provider: Dr. Deleon Practice: Ortho Chief Complaint/Reason for Call: Carlotta called in asking if they can do the XR for the 05/06/2025 appointment in house. If yes, please fax orders to [phone]. Please advise. Best time of day caller can be reached: Any Patient advised that office/PCP has 24-48 business hours to return their call: Yes Normal [facility] CBC W/Diff, Automatedon - Absolute Lymph 1.50 X10 3/uL Normal 0.83-4.51 [facility] Comment on above: Performed By: #### L 500.4050, M100.2200, L400.0001, L100.0100 #### [facility] [address] [place], [address] Absolute Neut 4.6 X10 3/uL Normal 2.0-7.7 [facility] Comment on above: Performed By: #### L 500.4050, M100.2200, L400.0001, L100.0100 #### [facility] [address] [place], [address] Basophils/100 WBC (Bld) 0.4 % Normal 0-1 [facility] Comment on above: Performed By: #### L 500.4050, M100.2200, L400.0001, L100.0100 #### [facility] [address] [place], [address] Eosinophils/100 WBC (Bld) 3.2 % Normal 0-5 [facility] Comment on above: Performed By: #### L 500.4050, M100.2200, L400.0001, L100.0100 #### [facility] [address] [place], [address] Erythrocyte distribution width (RBC) [Ratio] 14.2 % Normal 11.6-14.6 [facility] Comment on above: Performed By: #### L 500.4050, M100.2200, L400.0001, L100.0100 #### [facility] [address] [place], [address] Hematocrit (Bld) [Volume fraction] 34.6 % Low 40-54 [facility] Comment on above: Performed By: #### L 500.4050, M100.2200, L400.0001, L100.0100 #### [facility] [address] [place], [address] Hemoglobin (Bld) [Mass/Vol] 11.3 g/dL Low 13.0-16.5 [facility] Comment on above: Performed By: #### L 500.4050, M100.2200, L400.0001, L100.0100 #### [facility] [address] [place], [address] IG% 0.300 Normal 0.0-0.9 [facility] Comment on above: Result Comment: IG% - Immature Granulocytes (promyelocytes, myelocytes and metamyelocytes) > 1% indicates that a LEFT SHIFT is Present. Performed By: #### L 500.4050, M100.2200, L400.0001, L100.0100 #### [facility] [address] [place], [address] Lymphocytes/100 WBC (Bld) 21.8 % Normal 19-41 [facility] Comment on above: Performed By: #### L 500.4050, M100.2200, L400.0001, L100.0100 #### [facility] [address] [place], [address] MCH (RBC) [Entitic mass] 30.6 pg Normal 27.0-32.0 [facility] Comment on above: Performed By: #### L 500.4050, M100.2200, L400.0001, L100.0100 #### [facility] [address] [place], [address] MCHC (RBC) [Mass/Vol] 32.7 g/dL Normal 32-36 [facility] Comment on above: Performed By: #### L 500.4050, M100.2200, L400.0001, L100.0100 #### [facility] [address] [place], [address] MCV (RBC) [Entitic vol] 93.8 fL Normal 80-94 [facility] Comment on above: Performed By: #### L 500.4050, M100.2200, L400.0001, L100.0100 #### [facility] [address] [place], [address] Monocytes/100 WBC (Bld) 7.1 % Normal 0-10 [facility] Comment on above: Performed By: #### L 500.4050, M100.2200, L400.0001, L100.0100 #### [facility] [address] [place], [address] Neutrophils/100 WBC (Bld) 67.2 % Normal 47-70 [facility] Comment on above: Performed By: #### L 500.4050, M100.2200, L400.0001, L100.0100 #### [facility] [address] [place], [address] Nucleated RBC (Bld) [#/Vol] 0 10*3/uL Normal 0-5 [facility] Comment on above: Performed By: #### L 500.4050, M100.2200, L400.0001, L100.0100 #### [facility] [address] [place], [address] Platelet mean volume (Bld) [Entitic vol] 11.5 fL Normal 6.2-12.0 [facility] Comment on above: Performed By: #### L 500.4050, M100.2200, L400.0001, L100.0100 #### [facility] [address] [place], [address] Platelets (Bld) [#/Vol] 231 10*3/uL Normal 150-450 [facility] Comment on above: Performed By: #### L 500.4050, M100.2200, L400.0001, L100.0100 #### [facility] [address] [place], [address] RBC (Bld) [#/Vol] 3.69 10*6/uL Low 4.6-6.2 [facility] Comment on above: Performed By: #### L 500.4050, M100.2200, L400.0001, L100.0100 #### [facility] [address] [place], [address] RDW SD 48.2 fl High 35.1-43.9 [facility] Comment on above: Performed By: #### L 500.4050, M100.2200, L400.0001, L100.0100 #### [facility] [address] [place], [address] WBC (Bld) [#/Vol] 6.9 10*3/uL Normal 4.4-11.0 [facility] Comment on above: Performed By: #### L 500.4050, M100.2200, L400.0001, L100.0100 #### [facility] [address] [place], [address] Comprehensive Metabolic Prof ilon 04-16-2025 Albumin [Mass/Vol] 3.2 g/dL Low 3.4-4.8 [facility] [facility] Comment on above: Performed By: #### L 500.4050, M100.2200, L400.0001, L100.0100 #### [facility] [address] [place], [address] Albumin/Globulin [Mass ratio] 1.1 {ratio} Normal 0.9-2.4 [facility] Comment on above: Performed By: #### L 500.4050, M100.2200, L400.0001, L100.0100 #### [facility] [address] [place], [address] ALK PHOS 177 U/L High 40-129 [facility] Comment on above: Performed By: #### L 500.4050, M100.2200, L400.0001, L100.0100 #### [facility] [address] [place], [address] ALT [Catalytic activity/Vol] 13 U/L Normal <=46 [facility] Comment on above: Performed By: #### L 500.4050, M100.2200, L400.0001, L100.0100 #### [facility] [address] [place], [address] AST [Catalytic activity/Vol] 20 U/L Normal <=37 [facility] Comment on above: Performed By: #### L 500.4050, M100.2200, L400.0001, L100.0100 #### [facility] [address] [place], [address] Bilirubin [Mass/Vol] 0.41 mg/dL Normal 0.00-1.30 [facility] Comment on above: Performed By: #### L 500.4050, M100.2200, L400.0001, L100.0100 #### [facility] [address] [place], [address] BUN/CRE 29.7 RATIO High 10-20 [facility] Comment on above: Performed By: #### L 500.4050, M100.2200, L400.0001, L100.0100 #### [facility] [address] [place], [address] Calcium [Mass/Vol] 9.4 mg/dL Normal 7.6-11.0 [facility] Comment on above: Performed By: #### L 500.4050, M100.2200, L400.0001, L100.0100 #### [facility] [address] [place], [address] Chloride [Moles/Vol] 104 mmol/L Normal 98-108 [facility] Comment on above: Performed By: #### L 500.4050, M100.2200, L400.0001, L100.0100 #### [facility] [address] [place], [address] CO2 [Moles/Vol] 28.6 mmol/L Normal 21.0-32.0 [facility] Comment on above: Performed By: #### L 500.4050, M100.2200, L400.0001, L100.0100 #### [facility] [address] [place], [address] Creatinine [Mass/Vol] 1.52 mg/dL High 0.70-1.20 [facility] Comment on above: Performed By: #### L 500.4050, M100.2200, L400.0001, L100.0100 #### [facility] [address] [place], [address] GAP 10 Normal 5-15 [facility] Comment on above: Performed By: #### L 500.4050, M100.2200, L400.0001, L100.0100 #### [facility] [address] [place], [address] GFR/1.73 sq M.predicted among non-blacks MDRD (S/P/Bld) [Vol rate/Area] 44 mL/min/{1.73_m2} Low >60 [facility] Comment on above: Result Comment: mL/m in/1.73m2 CKD-EPI Creatinine Equation (2020) Performed By: #### L 500.4050, M100.2200, L400.0001, L100.0100 #### [facility] [address] [place], [address] Globulin (S) [Mass/Vol] 3.0 g/dL Normal 2.2-4.2 [facility] Comment on above: Performed By: #### L 500.4050, M100.2200, L400.0001, L100.0100 #### [facility] [address] [place], [address] Glucose [Mass/Vol] 144 mg/dL High 70-99 [facility] Comment on above: Performed By: #### L 500.4050, M100.2200, L400.0001, L100.0100 #### [facility] [address] [place], [address] Potassium [Moles/Vol] 4.5 mmol/L Normal 3.3-5.1 [facility] Comment on above: Performed By: #### L 500.4050, M100.2200, L400.0001, L100.0100 #### [facility] [address] [place], [address] Sodium [Moles/Vol] 143 mmol/L Normal 133-145 [facility] Comment on above: Performed By: #### L 500.4050, M100.2200, L400.0001, L100.0100 #### [facility] [address] [place], [address] T PROT 6.2 g/dL Normal 5.9-8.4 [facility] Comment on above: Performed By: #### L 500.4050, M100.2200, L400.0001, L100.0100 #### [facility] [address] [place], [address] Urea nitrogen [Mass/Vol] 45 mg/dL High 4-19 [facility] Comment on above: Performed By: #### L 500.4050, M100.2200, L400.0001, L100.0100 #### [facility] [address] [place], [address] Urinalysis, Completeon 04-16 RBC > 100 SEEN Normal 0-5 [facility] Comment on above: Order Comment: ZACH TER SPECIMEN Performed By: #### L 500.4050, M100.2200, L400.0001, L100.0100 #### [facility] [address] [place], [address] WBC >100 SEEN Normal 0-5 [facility] Comment on above: Order Comment: ZACH TER SPECIMEN Performed By: #### L 500.4050, M100.2200, L400.0001, L100.0100 #### [facility] [address] [place], [address] BACTERIA 0 SEEN Normal None Seen [facility] Comment on above: Order Comment: ZACH TER SPECIMEN Performed By: #### L 500.4050, M100.2200, L400.0001, L100.0100 #### [facility] [address] [place], [address] EPI,SQUAMOUS 0 SEEN Normal 0-5 [facility] Comment on above: Order Comment: ZACH TER SPECIMEN Performed By: #### L 500.4050, M100.2200, L400.0001, L100.0100 #### [facility] [address] [place], [address] Mucus Ql (Urine sed) 0 SEEN Normal [facility] Comment on above: Order Comment: ZACH TER SPECIMEN Performed By: #### L 500.4050, M100.2200, L400.0001, L100.0100 #### [facility] [address] [place], [address] Progress Noteon 04-15-2025 Progress Note DOS: 03/31/25 Surgery: intertan nailing of right hip Surgeon: Victoriano 4 Week Follow-up Scheduled: Yes Called patient to check in at 2 week post-op jj. Patient did not answer, left a voice message stating to call our office or reach out via iHandle with further questions or concerns. We will plan on seeing them in office at the 4 week post-op visit. Joselito Liu PA-C Orthopedic Surgery Hip and Knee Reconstruction [facility] Normal [facility] Basic Metabolic Profile (BMP )on 04-07-2025 BUN/CRE 32.6 RATIO High 10-20 [facility] Comment on above: Order Comment: ZACH TER SPECIMEN Performed By: #### L 500.4050, M100.2200, L400.0001, L100.0100 #### [facility] [address] [place], [address] Calcium [Mass/Vol] 9.2 mg/dL Normal 7.6-11.0 [facility] Comment on above: Order Comment: ZACH TER SPECIMEN Performed By: #### L 500.4050, M100.2200, L400.0001, L100.0100 #### [facility] [address] [place], [address] Chloride [Moles/Vol] 104 mmol/L Normal 98-108 [facility] Comment on above: Order Comment: ZACH TER SPECIMEN Performed By: #### L 500.4050, M100.2200, L400.0001, L100.0100 #### [facility] [address] [place], [address] CO2 [Moles/Vol] 27.5 mmol/L Normal 21.0-32.0 [facility] Comment on above: Order Comment: ZACH TER SPECIMEN Performed By: #### L 500.4050, M100.2200, L400.0001, L100.0100 #### [facility] [address] [place], [address] Creatinine [Mass/Vol] 1.33 mg/dL High 0.70-1.20 [facility] Comment on above: Order Comment: ZACH TER SPECIMEN Performed By: #### L 500.4050, M100.2200, L400.0001, L100.0100 #### [facility] [address] [place], [address] GAP 11 Normal 5-15 [facility] Comment on above: Order Comment: ZACH TER SPECIMEN Performed By: #### L 500.4050, M100.2200, L400.0001, L100.0100 #### [facility] [address] [place], [address] GFR/1.73 sq M.predicted among non-blacks MDRD (S/P/Bld) [Vol rate/Area] 51 mL/min/{1.73_m2} Low >60 [facility] Comment on above: Order Comment: ZACH TER SPECIMEN Result Comment: mL/m in/1.73m2 CKD-EPI Creatinine Equation (2020) Performed By: #### L 500.4050, M100.2200, L400.0001, L100.0100 #### [facility] [address] [place], [address] Glucose [Mass/Vol] 227 mg/dL High 70-99 [facility] Comment on above: Order Comment: ZACH TER SPECIMEN Performed By: #### L 500.4050, M100.2200, L400.0001, L100.0100 #### [facility] [address] [place], [address] Potassium [Moles/Vol] 4.5 mmol/L Normal 3.3-5.1 [facility] Comment on above: Order Comment: ZACH TER SPECIMEN Performed By: #### L 500.4050, M100.2200, L400.0001, L100.0100 #### [facility] [address] [place], [address] Sodium [Moles/Vol] 142 mmol/L Normal 133-145 [facility] Comment on above: Order Comment: ZACH TER SPECIMEN Performed By: #### L 500.4050, M100.2200, L400.0001, L100.0100 #### [facility] [address] [place], [address] Urea nitrogen [Mass/Vol] 43 mg/dL High 4-19 [facility] Comment on above: Order Comment: ZACH TER SPECIMEN Performed By: #### L 500.4050, M100.2200, L400.0001, L100.0100 #### [facility] [address] [place], [address] CBC-Complete Blood Cnt No Di ffon 04-07-2025 Erythrocyte distribution width (RBC) [Ratio] 12.9 % Normal 11.6-14.6 [facility] Comment on above: Order Comment: ZACH TER SPECIMEN Performed By: #### L 500.4050, M100.2200, L400.0001, L100.0100 #### [facility] [address] [place], [address] Hematocrit (Bld) [Volume fraction] 33.5 % Low 40-54 [facility] Comment on above: Order Comment: ZACH TER SPECIMEN Performed By: #### L 500.4050, M100.2200, L400.0001, L100.0100 #### [facility] [address] [place], [address] Hemoglobin (Bld) [Mass/Vol] 10.8 g/dL Low 13.0-16.5 [facility] Comment on above: Order Comment: ZACH TER SPECIMEN Performed By: #### L 500.4050, M100.2200, L400.0001, L100.0100 #### [facility] [address] [place], [address] MCH (RBC) [Entitic mass] 29.7 pg Normal 27.0-32.0 [facility] Comment on above: Order Comment: ZACH TER SPECIMEN Performed By: #### L 500.4050, M100.2200, L400.0001, L100.0100 #### [facility] [address] [place], [address] MCHC (RBC) [Mass/Vol] 32.2 g/dL Normal 32-36 [facility] Comment on above: Order Comment: ZACH TER SPECIMEN Performed By: #### L 500.4050, M100.2200, L400.0001, L100.0100 #### [facility] [address] [place], [address] MCV (RBC) [Entitic vol] 92.0 fL Normal 80-94 [facility] Comment on above: Order Comment: ZACH TER SPECIMEN Performed By: #### L 500.4050, M100.2200, L400.0001, L100.0100 #### [facility] [address] [place], [address] Platelet mean volume (Bld) [Entitic vol] 10.8 fL Normal 6.2-12.0 [facility] Comment on above: Order Comment: ZACH TER SPECIMEN Performed By: #### L 500.4050, M100.2200, L400.0001, L100.0100 #### [facility] [address] [place], [address] Platelets (Bld) [#/Vol] 229 10*3/uL Normal 150-450 [facility] Comment on above: Order Comment: ZACH TER SPECIMEN Performed By: #### L 500.4050, M100.2200, L400.0001, L100.0100 #### [facility] [address] [place], [address] RBC (Bld) [#/Vol] 3.64 10*6/uL Low 4.6-6.2 [facility] Comment on above: Order Comment: ZACH TER SPECIMEN Performed By: #### L 500.4050, M100.2200, L400.0001, L100.0100 #### [facility] [address] [place], [address] RDW SD 43.5 fl Normal 35.1-43.9 [facility] Comment on above: Order Comment: ZACH TER SPECIMEN Performed By: #### L 500.4050, M100.2200, L400.0001, L100.0100 #### [facility] [address] [place], [address] WBC (Bld) [#/Vol] 5.4 10*3/uL Normal 4.4-11.0 [facility] Comment on above: Order Comment: ZACH TER SPECIMEN Performed By: #### L 500.4050, M100.2200, L400.0001, L100.0100 #### [facility] [address] [place], [address] 36on 04-03-2025 36 I called and spoke with the facility and got the patient scheduled for the appointment. The facility requested the [place] location. [facility] [id number] 04-02-2025 [id number] Next Site of Care Admission Date: 03/30/2025 05:49 PM Patient Name: TITA KEITH Location: [address]/[facility] [id number] A Date of : 1935 Placement Information Referral Type:Fdc ICF - Return Referral ID:[id number] [facility] Address 1:[address] [facility] Address 2: City:[place] Selection Factors:Returning to Facility State:[place] [facility] [phone] Transport confirmed for 12 PM CM notified Kayleigh Scott via phone of transport time. [employer] [facility] [phone] Confirmed pickup time of NOON by transport company [employer] at phone number [phone]. Location of facility drop off is return back to [facility]. Facility notified via Careport, TCC notified on secure chat. [facility] [phone] Transport requested NOON in [employer]. Awaiting time confirmation. [facility] [phone] Discharge med list transmitted to TO RETURN BACK TO [facility] via Careport per TCC request. [facility] [phone] [employer] response received from facility that pt may dc today and return ICF . Spoke w MD and DC orders placed and RON completed. CM tasked for transport and for dc PW MAR to be sent to facility. Dtr to be updated via phone of Transport time. [facility] 36on 04-02-2025 36 Name of Caller: Isa Contact Reason for Appointment: Facility calling to schedule IPO for Pt. Please call to schedule thank you. Normal [facility] - Chemistry and C hemistry - challengeon 04-02-2025 Glucose [Mass/Vol] 227 mg/dL High 70 - 100 mg/dL [facility] No Panel Informationon 04-02 Interpretation and review of laboratory results Abnormal [facility] Performed by: Dorene Velázquez, [address] [place], [place] [address] [place] [address] CLIA ID: [id number] [facility] Nursing Noteon 04-02-2025 Nursing Note Reported called over the Apostolic to Carlotta. Normal [facility] Progress Noteon 04-02-2025 Progress Note Physician Response Please review the following and provide your response below. Please clarify which of the following accurately describes the patient's DM: Hyperglycemia due to Decadron This documentation will become part of the patient's medical record. Normal [facility] Progress Note Physician Response Please review the following and provide your response below. Please clarify which of the following accurately describes the patient's respiratory status: Other - please specify no hypoxia per hospitalist This documentation will become part of the patient's medical record. Normal [facility] Progress Note Speech-Language Pathology SPEECH LANGUAGE PATHOLOGY [facility] Modified Barium Swallow Study Patient Name: Tita Keith Evaluation Date: 04/02/2025 Date of : 1935 Admission Date: 03/30/2025 5:49 PM Age: 89 y.o. [facility]: [facility] A IMPRESSION: The patient presents with mild [...] solids and Thin liquids (continue trials with [employer] to determine benefit of mildly thick liquids) [...] effort. Pt would benefit from skilled acute [employer] services oropharyngeal strengthening trial and Formal instruction [...] Vellecular residuals with all-moderate thin, severe pudding, kscoogop-cukabj-ebdz ar (difficulty to determine d/t unable to [...] intertrochanteric fracture of right femur, initial encounter ([facility]) 03/30/2025 Severe malnutrition (CMS/HCC) (HCC) 12/07/2023 Pneumonia due to infectious organism, unspecified laterality, unspecified part of lung 12/06/2023 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) 09/17/2023 COVID-19 09/10/2023 Hyper (more content not included)... Normal [facility] Progress Note OCCUPATIONAL THERAPY [facility] Name/MRN: Tita Keith ([id number]) Date: 04/02/2025 Chart reviewed. Attempted to see pt today. Daughter at bedside, reporting that he had his cookie swallow this AM and has been more drowsy and agitated this AM. Plan to re-attempt therapy evaluation as schedule permits, once pt is more alert. Reema Barrios, OT Normal [facility] BASIC METABOLIC PANELon 06 Anion gap [Moles/Vol] 11 mmol/L Normal 3-13 [facility] Comment on above: Performed By: #### L AB15 ####Al[employer] Shingle Roofer: GISSEL SHAW ([id number])[facility] ([facility])[address] Calcium [Mass/Vol] 9.3 mg/dL Normal 8.8-10.0 [facility] Comment on above: Performed By: #### L AB15 ####[employer] Roofer: GISSEL SHAW ([id number])[facility] ([facility])[address] [place] [address] [place] Chloride [Moles/Vol] 103 mmol/L Normal 98-107 [facility] Comment on above: Performed By: #### L AB15 ####[employer] Roofer: GISSEL SHAW ([id number])[facility] ([facility])[address] [place] [address] [place] CO2 [Moles/Vol] 27 mmol/L Normal 23-31 [facility] Comment on above: Performed By: #### L AB15 ####[employer] Roofer: GISSEL SHAW ([id number])[facility] ([facility])[address] [place] [address] [place] Creatinine [Mass/Vol] 1.35 mg/dL High 0.72-1.25 [facility] Comment on above: Performed By: #### L AB15 ####[employer] Roofer: GISSEL SHAW ([id number])[facility] ([facility])[address] [place] [address] [place] GLOMERULAR FILTRATION RATE ML/MIN/1.73 SQ M.PREDICTED 50.2 mL/min/1.73m*2 Low >60.0 [facility] Comment on above: Result Comment: Calc ulation based on the Chronic Kidney Disease Epidemiology Collaboration (CKD-EPI) equation refit without adjustment for race Performed By: #### L AB15 ####[employer] Roofer: GISSEL SHAW ([id number])[facility] ([facility])[address] Glucose [Mass/Vol] 308 mg/dL High 82-115 [facility] Comment on above: Performed By: #### L AB15 ####Al[employer] Sh[employer] Roofer: GISSEL SHAW ([id number])[facility] ([facility])[address] Potassium [Moles/Vol] 5.0 mmol/L Normal 3.5-5.1 [facility] Comment on above: Result Comment: [facility] potassium values may be up to 0.5 mmol/L lower than serum values. Performed By: #### L AB15 ####Al[employer] Sh[employer] Roofer: GISSEL SHAW ([id number])[facility] ([facility] [place] [address] [place] Sodium [Moles/Vol] 141 mmol/L Normal 136-145 [facility] Comment on above: Performed By: #### L AB15 ####[employer] Sh[employer] Roofer: GISSEL SHAW ([id number])[facility] ([facility])[address] [place] [address] [place] Urea nitrogen [Mass/Vol] 30 mg/dL High 9-23 [facility] Comment on above: Performed By: #### L AB15 ####Al[employer] Sh[employer] Roofer: GISSEL SHAW ([id number])[facility] ERICKMEND[facility] ([facility])[address] Basic metabolic 1998 panelon 04-01-2025 Anion gap [Moles/Vol] 11 mmol/L 3 - 13 mmol/L [facility] Calcium [Mass/Vol] 9.3 mg/dL 8.8 - 10. 0 mg/dL [facility] Chloride [Moles/Vol] 103 mmol/L 98 - 10 7 mmol/L [facility] CO2 [Moles/Vol] 27 mmol/L 23 - 31 mmol/L [facility] Creatinine [Mass/Vol] 1.35 mg/dL High 0.72 - 1.25 mg/dL [facility] GFR/1.73 sq M.predicted (S/P/Bld) [Vol rate/Area] 50.2 mL/min Low - PINF [facility] Comment on above: Calculation based on the Chronic Kidney Disease Epidemiology Collaboration (CKD-EPI) equation refit without adjustment for race Glucose [Mass/Vol] 308 mg/dL High 82 - 115 mg/dL [facility] Interpretation and review of laboratory results Abnormal [facility] Potassium [Moles/Vol] 5 mmol/L 3.5 - 5.1 mmol/L [facility] Comment on above: Plasma potassium jacky ues may be up to 0.5 mmol/L lower than serum values. Sodium [Moles/Vol] 141 mmol/L 136 - 145 mmol/L [facility] Urea nitrogen [Mass/Vol] 30 mg/dL High 9 - 23 mg/d L [facility] CBC (HEMOGRAM)on 04-01-2025 Erythrocyte distribution width (RBC) [Ratio] 12.3 % Normal 11.5-15.0 [facility] Comment on above: Performed By: #### L AB294 ####Al[employer] Sh[employer] Roofer: GISSEL SHAW ([id number])[facility] VELÁZQUE[facility] ([facility])[address] [place] [address] Hematocrit (Bld) [Volume fraction] 33.6 % Low 40.0-52.0 [facility] Comment on above: Performed By: #### L AB294 ####Al[employer] Sh[employer] Roofer: GISSEL SHAW ([id number])[facility] GLEN[facility] ([facility])[address] Hemoglobin (Bld) [Mass/Vol] 10.9 g/dL Low 13.0-18.0 [facility] Comment on above: Performed By: #### L AB294 ####[employer] Sh[employer] Roofer: GISSEL SHAW ([id number])[facility]ORENE DOBSONTia ([facility])[address] IPF 5 Normal [facility] Comment on above: Performed By: #### L AB294 ####Aluminum Shingle Roofer: GISSEL SHAW ([id number])[facility] RICKSGIL[facility] REGION[facility] MEDICAL CENTERTia ([facility])[address] MCH (RBC) [Entitic mass] 30.1 pg Normal 26.0-34.0 [facility] Comment on above: Performed By: #### L AB294 ####Al[employer] Shingle Roofer: GISSEL SHAW ([id number])[facility] CENTERT[facility] ([facility])[address] MCHC 32.4 % Normal 30.5-36.0 [facility] Comment on above: Performed By: #### L AB294 ####Al[employer] Shingle Roofer: GISSEL SHAW ([id number])[facility] CENTERTia ([facility])[address] MCV (RBC) [Entitic vol] 92.8 fL Normal 77.0-99.0 S [facility] Comment on above: Performed By: #### L AB294 ####Al[employer] Shingle Roofer: GISSEL SHAW ([id number])[facility] CENT[facility] ([facility])[address] Platelet mean volume (Bld) [Entitic vol] 11.0 fL Normal 9.0-12.7 [facility] Comment on above: Performed By: #### L AB294 ####Aluminum Shingle Roofer: GISSEL SHAW ([id number])[facility]ITAL[facility] RICK[facility]ENDY (SBHLAB)[address] [place] [address] [place] Platelets (Bld) [#/Vol] 144 10*3/uL Normal 140-440 [facility] Comment on above: Performed By: #### L [id number] ####Aluminum Shingle Roofer: GISSEL MCCORMICKClaudetteOLAF ([id number])[facility] (SBHLAB)[address] [place] [address] RBC (Bld) [#/Vol] 3.62 10*6/uL Low 4.40-5.90 [facility] Comment on above: Performed By: #### L [id number] ####Aluminum Shingle Roofer: GISSEL BAHOLAF ([id number])[facility] ([facility])[address] [place] [address] WBC (Bld) [#/Vol] 6.4 10*3/uL Normal 3.6-10.7 [facility] Comment on above: Performed By: #### L [id number] ####Aluminum Shingle Roofer: GISSEL VALERIA ([id number])[facility] ([facility])[address] [place] [address] CBC panel Auto (Bld)on 04-01 Erythrocyte distribution width (RBC) [Ratio] 12.3 % 11.5 - 15.0 % [facility] Hematocrit (Bld) [Volume fraction] 33.6 % Low 40.0 - 52.0 % [facility] Hemoglobin (Bld) [Mass/Vol] 10.9 g/dL Low 13.0 - 18.0 g/dL [facility] Interpretation and review of laboratory results Abnormal [facility] IPF 5 [facility] MCH (RBC) [Entitic mass] 30.1 pg 26. 0 - 34.0 pg [facility] MCHC (RBC) [Mass/Vol] 32.4 % 30.5 - 36.0 % [facility] MCV (RBC) [Entitic vol] 92.8 fL 77.0 - 99.0 fL [facility] Platelet mean volume (Bld) [Entitic vol] 11 fL 9.0 - 12.7 fL [facility] Platelets (Bld) [#/Vol] 144 10*3/uL 140 - 440 10*3/uL [facility] RBC (Bld) [#/Vol] 3.62 10*6/uL Low 4.40 - 5.9 0 10*6/uL [facility] WBC (Bld) [#/Vol] 6.4 10*3/uL 3.6 - 10.7 10*3/uL [facility] HEMOGLOBIN A1Con 04-01-2025 Glucose [Mass/Vol] 154 mg/dL Normal [facility] Comment on above: Result Comment: PRITESH [...] repeat testing. Performed By: #### L [id number] ####Aluminum Shingle Roofer: GISSEL SHAW ([id number])[facility] ([facility])[address] [place] [address] HEMOGLOBIN A1C 7.0 %HbA1C High <5.7 [facility] Comment on above: Result Comment: Norm al less than 5.7% Prediabetes 5.7% to 6.4% Diabetes 6.5% or higher --HgbA1C levels may not be accurate in patients who have renal disease, received recent blood transfusions, are anemic, or who have dyshemoglobinemia. Performed By: #### L AB90 ####Aluminum Shingle Roofer: GISSEL SHAW ([id number])[facility] ([facility])[address] [place] [address] Laboratory - Chemistry and C hemistry - challengeon 04-01-2025 Glucose [Mass/Vol] 231 mg/dL High 70 - 100 mg/dL [facility] Glucose [Mass/Vol] 221 mg/dL High 70 - 100 mg/dL [facility] Glucose [Mass/Vol] 291 mg/dL High 70 - 100 mg/dL [facility] Average glucose Estimated from glycated hemoglobin (Bld) [Mass/Vol] 154 mg/dL [facility] Glucose [Mass/Vol] 310 mg/dL High 70 - 100 mg/dL [facility] Laboratory - Hematology and Cell countson 04-01-2025 HbA1c (Bld) [Mass fraction] 7 % High [facility] Comment on above: Normal less [...] Electronically Signed Date/Time: 04/01/2025 8:32 PM T [facility] Interpretation and review of laboratory results Abnormal [facility] Performed by: [facility] Center[facility]amp Velázquez [address] [place] [address] CLIA ID: [id number] [facility] Interpretation and review of laboratory results Abnormal [facility] Performed by: Dorene Velázquez [address] [place] [id number] CLIA ID: [id number] [facility] Interpretation and review of laboratory results Abnormal [facility] Performed by: Dorene Velázquez [address] [place] [address] CLIA ID: [id number] [facility]yla [facility] Interpretation and review of laboratory results Abnormal [facility] HbA1c values of 5.7-6.4 percent indicate an increased risk for developing diabetes mellitus. HbA1c values greater than or equal to 6.5 percent are diagnostic of diabetes mellitus. For diagnosis of diabetes in individuals without unequivocal hyperglycemia, results should be confirmed by repeat testing. [facility] Myla Interpretation and review of laboratory results Abnormal [facility] Performed by: Dorene Velázquez [address] [place] [address] CLIA ID: [id number] [facility] No Panel InformationOrdered By: Christiano Nava on 04-01-2025 [facility] Myla Work Phone: Progress Noteon 04-01-2025 Progress Note Speech-Language Pathology SPEECH LANGUAGE PATHOLOGY [facility] Bedside Swallow Evaluation Patient Name: Tita Keith Evaluation Date: 04/01/2025 Date of : 1935 Admission Date: 03/30/2025 5:49 PM Age: 89 y.o. Room/Bed: [facility]/B1-155 A IMPRESSION: S/s oropharyngeal dysphagia. + overt [...] required. Pt would benefit from skilled acute [employer] services to determine the safest route and [...] Visitors at bedside - daughter. Spoke with RN Mar who cleared pt to be evaluated. RN stated that pt coughed on water earlier in the morning. Dysphagia History: Retrospective chart review revealed a history of [employer] services as follows: 01/18/23-09/19/23. Pt demonstrated prolonged [...] vallecular residuals with moderate thin, severe pudding, dznqcqyo-doovux-zetd ar. Transient spillage accumulating in laryngeal vestibule [...] intertrochanteric fracture of right femur, initial encounter ([facility]) 03/30/2025 Severe malnutrition ([facility]) ([facility]) 12/07/2023 Pneumonia due to infectious organism, unspecified laterality, unspecified part of lung 12/06/2023 Dementia without behavioral disturbance ([facility]) 09/17/2023 COVID-19 09/10/2023 Hyperglycemia 01/19/2023 Hyperosmolar hyperglycemic state (HHS) ([facility]) 01/17/2023 New onset type 2 diabetes mellitus ([facility]) ([facility]) 03/01/2022 History of Present Illness: Patient Complaint: None stated. Pain: Pt denies any current pain. PPE Worn: gloves Objective Bedside swallow eval completed. Oral Motor Mechanism Facial Movement (CN VII) - Generalized weakness Labial Structure/Function (CN VII) - Reduced retraction, Reduced protrusion, Generalized weakness Lingual Structure/Function (CN XII) - Generalized weakness, reduced elevation and depression, reduced lateralization (muab-ot-eidb tongue movement) Velopharyngeal Structure/Function (CN X & XI) - Pt had difficulty opening his mouth and sticking tongue out to visualize palate. Oral Hygiene: dried secretions, xerostomia Swallowing Examination PO Trials - (more content not included)... Normal [facility] Progress Note Nutrition rescreen completed. Patient referred to the Dietitian. BMI 16.69. Normal [facility] Progress Note OCCUPATIONAL THERAPY [facility]'s Name/MRN: Tita Keith ([id number]) Date: 04/01/2025 OT orders received and chart [...] 0 at baseline. 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 Subjective: Patient [...] q12h tamsulosin, 0.8 mg, Oral, Nightly Normal [facility] XR FEMUR 2+ VW RIGHTon 04-01 [...] Signed Date/Time: 04/01/2025 8:32 PM EDT [facility] XR Femur - right 2 Viewson 0 [...] lesion is identified. Arterial calcifications are noted. [facility] Christiano Nava MD - 04/01/2025 [...] Electronically Signed Date/Time: 04/01/2025 8:32 PM EDT [facility] XR PELVIS 1-2 VIEWSon 2024 XR PELVIS [...] Signed Date/Time: 04/01/2025 8:32 PM EDT [facility] XR Pelvis 1 or 2 Viewson Patient [...] lesion is identified. Arterial calcifications are noted. [facility] Christiano Nava MD - 04/01/2025 [...] Electronically Signed Date/Time: 04/01/2025 8:32 PM EDT [facility] ABO and Rh group Confirm Nom (Bld)on 03-31-2025 ABO group Nom (Bld) A Incuvo D Ag Ql (RBC) Positive [facility]alt [facility] APTTon 03-31-2025 aPTT Coag (Bld) [Time] 28.6 s Normal 20.0-30.5 [facility] Comment on above: Result Comment: PRITESH R COMMENTS: NOTE: The therapeutic time for Heparin anticoagulation, based on Xa activity inhibition, is an APTT of 46-80 seconds. Performed By: #### L [id number], [id number] ####Aluminum Shingle Roofer: GISSEL SHAW ([id number])[facility] (SBHLAB)[address] BASIC METABOLIC PANELon 06--2024 Anion gap [Moles/Vol] 8 mmol/L Normal 3-13 [facility] Comment on above: Performed By: #### L AB15 ####Aluminum Shingle Roofer: GISSEL SHAW ([id number])[facility] [place] (SBHLAB)[address] Calcium [Mass/Vol] 9.1 mg/dL Normal 8.8-10.0 [facility] Comment on above: Performed By: #### L AB15 ####Aluminum Shingle Roofer: GISSEL SHAW ([id number])[facility] [place] (SBHLAB)[address] Chloride [Moles/Vol] 102 mmol/L Normal 98-107 [facility] Comment on above: Performed By: #### L AB15 ####Aluminum Shingle Roofer: GISSEL SHAW ([id number])[facility] [place] (SBHLAB)[address] CO2 [Moles/Vol] 27 mmol/L Normal 23-31 [facility] Comment on above: Performed By: #### L AB15 ####Aluminum Shingle Roofer: GISSEL SHAW ([id number])[facility] [place] (SBHLAB)[address] Creatinine [Mass/Vol] 1.22 mg/dL Normal 0.72-1.25 [facility] Comment on above: Performed By: #### L AB15 ####Aluminum Shingle Roofer: GISSEL SHAW ([id number])[facility] [place] (SBHLAB)[address] GLOMERULAR FILTRATION RATE ML/MIN/1.73 SQ M.PREDICTED 56.7 mL/min/1.73m*2 Low >60.0 [facility] Comment on above: Result Comment: Calc ulation based on the Chronic Kidney Disease Epidemiology Collaboration (CKD-EPI) equation refit without adjustment for race Performed By: #### L AB15 ####Aluminum Shingle Roofer: GISSEL SHAW ([id number])[facility] (HLAB)[address] Glucose [Mass/Vol] 299 mg/dL High 82-115 [facility] Comment on above: Performed By: #### L AB15 ####Aluminum Shingle Roofer: GISSEL SHAW ([id number])[facility] ([facility])[address] [place] [address] Potassium [Moles/Vol] 4.2 mmol/L Normal 3.5-5.1 [facility] Comment on above: Result Comment: [facility] potassium values may be up to 0.5 mmol/L lower than serum values. Performed By: #### L AB15 ####Aluminum Shingle Roofer: GISSEL SHAW ([id number])[facility] ([facility])[address] [place] [address] [place] Sodium [Moles/Vol] 137 mmol/L Normal 136-145 [facility] Comment on above: Performed By: #### L AB15 ####Aluminum Shingle Roofer: GISSEL SHAW ([id number])[facility] ([facility])[address] [place] [address] [place] Urea nitrogen [Mass/Vol] 30 mg/dL High 9-23 [facility] Comment on above: Performed By: #### L AB15 ####Aluminum Shingle Roofer: GISSEL SHAW ([id number])[facility] ([facility])[address] Anion gap [Moles/Vol] 10 mmol/L Normal 3-13 [facility] Comment on above: Performed By: #### L AB15 ####Aluminum Shingle Roofer: GISSEL SHAW ([id number])[facility] [place] (SBHLAB)[address] Calcium [Mass/Vol] 9.0 mg/dL Normal 8.8-10.0 [facility] Comment on above: Performed By: #### L AB15 ####Aluminum Shingle Roofer: GISSEL SHAW ([id number])[facility] [place] (SBHLAB)[address] Chloride [Moles/Vol] 103 mmol/L Normal 98-107 [facility] Comment on above: Performed By: #### L AB15 ####Aluminum Shingle Roofer: GISSEL SHAW ([id number])[facility] [place] (SBHLAB)[address] CO2 [Moles/Vol] 26 mmol/L Normal 23-31 [facility] Comment on above: Performed By: #### L AB15 ####Aluminum Shingle Roofer: GISSEL SHAW ([id number])[facility] [place] (SBHLAB)[address] Creatinine [Mass/Vol] 1.33 mg/dL High 0.72-1.25 [facility] Comment on above: Performed By: #### L AB15 ####Aluminum Shingle Roofer: GISSEL SHAW ([id number])[facility] [place] (SBHLAB)[address] [place] [address] [place] GLOMERULAR FILTRATION RATE ML/MIN/1.73 SQ M.PREDICTED 51.1 mL/min/1.73m*2 Low >60.0 [facility] Comment on above: Result Comment: Calc ulation based on the Chronic Kidney Disease Epidemiology Collaboration (CKD-EPI) equation refit without adjustment for race Performed By: #### L AB15 ####Aluminum Shingle Roofer: GISSEL SHAW ([id number])[facility] [place] (SBHLAB)[address] [place] [address] [place] Glucose [Mass/Vol] 295 mg/dL High 82-115 [facility] Comment on above: Performed By: #### L AB15 ####Aluminum Shingle Roofer: GISSEL SHAW ([id number])[facility] (SBHLAB)[address] Potassium [Moles/Vol] 4.4 mmol/L Normal 3.5-5.1 [facility] Comment on above: Result Comment: [facility] potassium values may be up to 0.5 mmol/L lower than serum values. Performed By: #### L AB15 ####Aluminum Shingle Roofer: GISSEL SHAW ([id number])[facility] (SBHLAB)[address] Sodium [Moles/Vol] 139 mmol/L Normal 136-145 [facility] Comment on above: Performed By: #### L AB15 ####Aluminum Shingle Roofer: GISSEL SHAW ([id number])[facility] ([facility])[address] Urea nitrogen [Mass/Vol] 35 mg/dL High 9-23 [facility] Comment on above: Performed By: #### L AB15 ####Aluminum Shingle Roofer: GISSEL SHAW ([id number])[facility] ([facility])[address] BLOOD TYPE AND SCREEN GELon 03-31-2025 ABO GROUPING A Normal [facility] Comment on above: Performed By: #### L [id number] ####Aluminum Shingle Roofer: GISSEL SHAW ([id number])[facility] ([facility])[address] [place] [address] RH TYPE IN BLOOD Positive Normal [facility] Comment on above: Performed By: #### L [id number] ####Aluminum Shingle Roofer: GISSEL SHAW ([id number])[facility] ([facility])[address] [place] [address] Basic metabolic 1998 panelon 03-31-2025 Anion gap [Moles/Vol] 8 mmol/L 3 - 13 mmol/L [facility] Calcium [Mass/Vol] 9.1 mg/dL 8.8 - 10. 0 mg/dL [facility] Chloride [Moles/Vol] 102 mmol/L 98 - 10 7 mmol/L [facility] CO2 [Moles/Vol] 27 mmol/L 23 - 31 mmol/L [facility] Creatinine [Mass/Vol] 1.22 mg/dL 0.72 - 1.25 mg/dL [facility] GFR/1.73 sq M.predicted (S/P/Bld) [Vol rate/Area] 56.7 mL/min Low - PINF [facility] Comment on above: Calculation based on the Chronic Kidney Disease Epidemiology Collaboration (CKD-EPI) equation refit without adjustment for race Glucose [Mass/Vol] 299 mg/dL High 82 - 115 mg/dL [facility] Interpretation and review of laboratory results Abnormal [facility] Potassium [Moles/Vol] 4.2 mmol/L 3.5 - 5.1 mmol/L [facility] Comment on above: Plasma potassium jacky ues may be up to 0.5 mmol/L lower than serum values. Sodium [Moles/Vol] 137 mmol/L 136 - 145 mmol/L [facility] Urea nitrogen [Mass/Vol] 30 mg/dL High 9 - 23 mg/d L [facility] Anion gap [Moles/Vol] 10 mmol/L 3 - 13 mmol/L [facility] Calcium [Mass/Vol] 9 mg/dL 8.8 - 10. 0 mg/dL [facility] Chloride [Moles/Vol] 103 mmol/L 98 - 10 7 mmol/L [facility] CO2 [Moles/Vol] 26 mmol/L 23 - 31 mmol/L [facility] Creatinine [Mass/Vol] 1.33 mg/dL High 0.72 - 1.25 mg/dL [facility] GFR/1.73 sq M.predicted (S/P/Bld) [Vol rate/Area] 51.1 mL/min Low - PINF [facility] Comment on above: Calculation based on the Chronic Kidney Disease Epidemiology Collaboration (CKD-EPI) equation refit without adjustment for race Glucose [Mass/Vol] 295 mg/dL High 82 - 115 mg/dL [facility] Interpretation and review of laboratory results Abnormal [facility] Potassium [Moles/Vol] 4.4 mmol/L 3.5 - 5.1 mmol/L [facility] Comment on above: Plasma potassium jakcy ues may be up to 0.5 mmol/L lower than serum values. Sodium [Moles/Vol] 139 mmol/L 136 - 145 mmol/L [facility] Urea nitrogen [Mass/Vol] 35 mg/dL High 9 - 23 mg/d L [facility] Blood type and Crossmatch pa zabrina (Bld)on 03-31-2025 ABO group Nom (Bld) A [facility] Blood group antibody screen GEL Ql Negative [facility] D Ag Ql [facility]RBC) [facility] CBC (HEMOGRAM)on 03-31-2025 Erythrocyte distribution width (RBC) [Ratio] 12.6 % Normal 11.5-15.0 [facility] Comment on above: Performed By: #### L [id number] ####Aluminum Shingle Roofer: GISSEL SHAW ([id number])[facility] ([facility])[address] [place] [address] Hematocrit (Bld) [Volume fraction] 35.2 % Low 40.0-52.0 [facility] Comment on above: Performed By: #### L [id number] ####Aluminum Shingle Roofer: GISSEL SHAW ([id number])[facility] ([facility])[address] [place] [address] Hemoglobin (Bld) [Mass/Vol] 11.8 g/dL Low 13.0-18.0 [facility] Comment on above: Performed By: #### L [id number] ####Aluminum Shingle Roofer: GISSEL SHAW ([id number])[facility] (SBAB)[address] [place] [address] IPF 4 Normal [facility] Comment on above: Performed By: #### L [id number] ####Aluminum Shingle Roofer: GISSEL SHAW ([id number])[facility] ([facility])[address] [place] [address] MCH (RBC) [Entitic mass] 29.9 pg Normal 26.0-34.0 [facility] Comment on above: Performed By: #### L [id number] ####Aluminum Shingle Roofer: GISSEL SHAW ([id number])[facility] [place] (SBHLAB)[address] MCHC 33.5 % Normal 30.5-36.0 [facility] Comment on above: Performed By: #### L [id number] ####Aluminum Shingle Roofer: GISSEL SHAW ([id number])[facility] [place] (SBHLAB)[address] MCV (RBC) [Entitic vol] 89.3 fL Normal 77.0-99.0 S [facility] Comment on above: Performed By: #### L [id number] ####Aluminum Shingle Roofer: GISSEL SHAW ([id number])[facility] [place] (SBHLAB)[address] Platelet mean volume (Bld) [Entitic vol] 11.4 fL Normal 9.0-12.7 [facility] Comment on above: Performed By: #### L [id number] ####Aluminum Shingle Roofer: GISSEL SHAW ([id number])[facility] [place] (SBHLAB)[address] Platelets (Bld) [#/Vol] 119 10*3/uL Low 140-440 [facility] Comment on above: Performed By: #### L [id number] ####Aluminum Shingle Roofer: GISSEL SHAW ([id number])[facility] [place] (SBHLAB)[address] RBC (Bld) [#/Vol] 3.94 10*6/uL Low 4.40-5.90 [facility] Comment on above: Performed By: #### L [id number] ####Aluminum Shingle Roofer: GISSEL SHAW ([id number])[facility] [place] (SBHLAB)[address] WBC (Bld) [#/Vol] 6.8 10*3/uL Normal 3.6-10.7 [facility] Comment on above: Performed By: #### L [id number] ####Aluminum Shingle Roofer: GISSEL SHAW ([id number])[facility] (SBHLAB)[address] [place] [address] CBC W Auto Differential pane l (Bld)on 03-31-2025 Basophils (Bld) [#/Vol] 0 10*3/uL 0.0 - 0.2 10*3/uL [facility] Basophils/100 WBC (Bld) 0.1 % 0.0 - 2.0 % [facility] Eosinophils (Bld) [#/Vol] 0 10*3/uL 0.0 - 0.5 10*3/uL [facility] Eosinophils/100 WBC (Bld) 0.3 % 0.0 - 6.0 % [facility] Erythrocyte distribution width (RBC) [Ratio] 12.7 % 11.5 - 15.0 % [facility] Hematocrit (Bld) [Volume fraction] 33.7 % Low 40.0 - 52.0 % [facility] Hemoglobin (Bld) [Mass/Vol] 11.4 g/dL Low 13.0 - 18.0 g/dL [facility] Immature granulocytes (Bld) [#/Vol] 0 10*3/uL NINF - 0.1 10*3/uL [facility] Immature granulocytes/100 WBC (Bld) 0.3 % 0.0 - 2.0 % [facility] Interpretation and review of laboratory results Abnormal [facility] IPF 3 [facility] Lymphocytes (Bld) [#/Vol] 1.1 10*3/uL 1.0 - 4.3 10*3/uL [facility] Lymphocytes/100 WBC (Bld) 15.4 % 15.0 - 45.0 % [facility] MCH (RBC) [Entitic mass] 30.3 pg 26. 0 - 34.0 pg [facility] MCHC (RBC) [Mass/Vol] 33.8 % 30.5 - 36.0 % [facility] MCV (RBC) [Entitic vol] 89.6 fL 77.0 - 99.0 fL [facility] Monocytes (Bld) [#/Vol] 0.8 10*3/uL 0.0 - 0.9 10*3/uL [facility] Monocytes/100 WBC (Bld) 11.2 % 5.0 - 13.0 % [facility] Neutrophils (Bld) [#/Vol] 4.9 10*3/uL 1.8 - 7.5 10*3/uL [facility] Neutrophils/100 WBC (Bld) 72.7 % 38.0 - 82.0 % [facility] Nucleated RBC/100 WBC (Bld) [Ratio] 0 % [facility] Platelet mean volume (Bld) [Entitic vol] 11.1 fL 9.0 - 12.7 fL [facility] Platelets (Bld) [#/Vol] 120 10*3/uL Low 140 - 440 10*3/uL [facility] RBC (Bld) [#/Vol] 3.76 10*6/uL Low 4.40 - 5.9 0 10*6/uL [facility] WBC (Bld) [#/Vol] 6.8 10*3/uL 3.6 - 10.7 10*3/uL [facility] CBC WITH AUTO DIFFERENTIALon 03-31-2025 Basophils (Bld) [#/Vol] 0.0 10*3/uL Normal 0.0-0.2 [facility] Comment on above: Performed By: #### L [id number] ####Al[employer]um Shingle Roofer: GISSEL SHAW ([id number])[facility] ([facility])[address] [place] [address] Basophils/100 WBC (Bld) 0.1 % Normal 0.0-2.0 S [facility] Comment on above: Performed By: #### L [id number] ####Aluminum Shingle Roofer: GISSEL SHAW ([id number])[facility] ([facility] [place] [address] Eosinophils (Bld) [#/Vol] 0.0 10*3/uL Normal 0.0-0.5 [facility] Comment on above: Performed By: #### L [id number] ####[employer] Roofer: GISSEL SHAW ([id number])[facility] ([facility])[address] [place] [address] Eosinophils/100 WBC (Bld) 0.3 % Normal 0.0-6.0 [facility] Comment on above: Performed By: #### L [id number] ####[employer] Roofer: GISSEL SHAW ([id number])[facility] ([facility])[address] [place] [address] Erythrocyte distribution width (RBC) [Ratio] 12.7 % Normal 11.5-15.0 [facility] Comment on above: Performed By: #### L [id number] ####[employer] Roofer: GISSEL SHAW ([id number])[facility] ([facility])[address] Hematocrit (Bld) [Volume fraction] 33.7 % Low 40.0-52.0 [facility] Comment on above: Performed By: #### L [id number] ####[employer] Roofer: GISSEL SHAW ([id number])[facility] [place] ([facility])[address] [place] [address] Hemoglobin (Bld) [Mass/Vol] 11.4 g/dL Low 13.0-18.0 [facility] Comment on above: Performed By: #### L [id number] ####[employer] Roofer: GISSEL SHAW ([id number])[facility] ([facility])[address] [place] [address] IMMATURE GRANS % 0.3 % Normal 0.0-2.0 [facility] Comment on above: Performed By: #### L [id number] ####[employer] Sh[employer] Roofer: GISSEL SHAW ([id number])[facility] ([facility])[address] IMMATURE GRANS ABSOLUTE 0.0 10*3/uL Normal <0.1 [facility] Comment on above: Performed By: #### L [id number] ####[employer] Roofer: GISSEL SHAW ([id number])[facility] ([facility])[address] IPF 3 Normal [facility] Comment on above: Performed By: #### L [id number] ####[employer] Sh[employer] Roofer: GISSEL SHAW ([id number])[facility] (SBHLAB)[address] Lymphocytes (Bld) [#/Vol] 1.1 10*3/uL Normal 1.0-4.3 [facility] Comment on above: Performed By: #### L [id number] ####[employer] Sh[employer] Roofer: GISSEL SHAW ([id number])[facility] [place] (SB[facility])[address] Lymphocytes/100 WBC (Bld) 15.4 % Normal 15.0-45.0 [facility] Comment on above: Performed By: #### L [id number] ####[employer] Sh[employer] Roofer: GISSEL SHAW ([id number])[facility] [place] (SB[facility])[address] MCH (RBC) [Entitic mass] 30.3 pg Normal 26.0-34.0 [facility] Comment on above: Performed By: #### L [id number] ####[employer] Roofer: GISSEL SHAW ([id number])[facility] ([facility])[address] [place] [address] MCHC 33.8 % Normal 30.5-36.0 [facility] Comment on above: Performed By: #### L [id number] ####[employer] Sh[employer] Roofer: GISSEL SHAW ([id number])[facility] ([facility])[address] [place] [address] MCV (RBC) [Entitic vol] 89.6 fL Normal 77.0-99.0 [facility] Comment on above: Performed By: #### L [id number] ####[employer] Roofer: GISSEL SHAW ([id number])[facility] [place] ([facility])[address] Monocytes (Bld) [#/Vol] 0.8 10*3/uL Normal 0.0-0.9 [facility] Comment on above: Performed By: #### L [id number] ####[employer] Sh[employer] Roofer: GISSEL SHAW ([id number])[facility] (SB[facility])[address] [place] [address] [place] Monocytes/100 WBC (Bld) 11.2 % Normal 5.0-13.0 [facility] Comment on above: Performed By: #### L [id number] ####[employer] Sh[employer] Roofer: GISSEL SHAW ([id number])[facility] [place] (SBHLAB)[address] NEUTROPHILS ABSOLUTE 4.9 10*3/uL Normal 1.8-7.5 [facility] Comment on above: Performed By: #### L [id number] ####Al[employer] Sh[employer] Roofer: GISSEL SHAW ([id number])[facility] [place] (SB[facility])[address] Neutrophils/100 WBC (Bld) 72.7 % Normal 38.0-82.0 [facility] Comment on above: Performed By: #### L [id number] ####[employer] Sh[employer] Roofer: GISSEL SHAW ([id number])[facility] [place] ([facility])[address] NRBC 0.0 /100 WBCs Normal 0.0-2.0 [facility] Comment on above: Performed By: #### L [id number] ####Al[employer] Sh[employer] Roofer: GISSEL SHAW ([id number])[facility] [place] (SB[facility])[address] Platelet mean volume (Bld) [Entitic vol] 11.1 fL Normal 9.0-12.7 [facility] Comment on above: Performed By: #### L [id number] ####Al[employer] Sh[employer] Roofer: GISSEL SHAW ([id number])[facility] [place] (SB[facility])[address] [place] [address] [place] Platelets (Bld) [#/Vol] 120 10*3/uL Low 140-440 [facility] Comment on above: Performed By: #### L [id number] ####[employer] Sh[employer] Roofer: GISSEL SHAW ([id number])[facility] [place] ([facility])[address] RBC (Bld) [#/Vol] 3.76 10*6/uL Low 4.40-5.90 [facility] Comment on above: Performed By: #### L [id number] ####Al[employer] Shingle Roofer: GISSEL SHAW ([id number])[facility]ITAL[facility] (SBHLAB)[address] WBC (Bld) [#/Vol] 6.8 10*3/uL Normal 3.6-10.7 [facility] Comment on above: Performed By: #### L [id number] ####Al[employer] Sh[employer] Roofer: GISSEL SHAW ([id number])[facility] (HLAB)[address] CBC panel Auto (Bld)on 03-31 Erythrocyte distribution width (RBC) [Ratio] 12.6 % 11.5 - 15.0 % [facility] Hematocrit (Bld) [Volume fraction] 35.2 % Low 40.0 - 52.0 % [facility] Hemoglobin (Bld) [Mass/Vol] 11.8 g/dL Low 13.0 - 18.0 g/dL [facility] Interpretation and review of laboratory results Abnormal [facility] IPF 4 [facility] MCH (RBC) [Entitic mass] 29.9 pg 26. 0 - 34.0 pg [facility] MCHC (RBC) [Mass/Vol] 33.5 % 30.5 - 36.0 % [facility] MCV (RBC) [Entitic vol] 89.3 fL 77.0 - 99.0 fL [facility] Platelet mean volume (Bld) [Entitic vol] 11.4 fL 9.0 - 12.7 fL [facility] Platelets (Bld) [#/Vol] 119 10*3/uL Low 140 - 440 10*3/uL [facility] RBC (Bld) [#/Vol] 3.94 10*6/uL Low 4.40 - 5.9 0 10*6/uL [facility] WBC (Bld) [#/Vol] 6.8 10*3/uL 3.6 - 10.7 10*3/uL [facility] Consulton 03-31-2025 Consult Please see previously dictated consult note Normal [facility] ECG 12-LEADon 03-31-2025 ECG 12-LEAD IMPRESSION: Sinus rhythm Nonspecific T abnormalities, anterior leads Electronically Signed On 03-31-2025 08:56:56 EDT by Pawan Chin Normal [facility] ED Nursing Noteon 03-31-2025 ED Nursing Note Patient was incontinent of stool. Cleaned up and silverio placed as ordered. Patient repositioned to comfort. Confused to situation and date. Normal [facility] Laboratory - Chemistry and C hemistry - challengeon 03-31-2025 Glucose [Mass/Vol] 254 mg/dL High 70 - 100 mg/dL [facility] Glucose [Mass/Vol] 193 mg/dL High 70 - 100 mg/dL [facility] Glucose [Mass/Vol] 165 mg/dL High 70 - 100 mg/dL [facility] Glucose [Mass/Vol] 277 mg/dL High 70 - 100 mg/dL [facility] Glucose [Mass/Vol] 294 mg/dL High 70 - 100 mg/dL [facility] Laboratory - Coagulationon 0 03-31-2025 PT Coag (Bld) [Time] 10.9 s 9.0 - 12.0 s [facility] No Panel Informationon 03-31 Interpretation and review of laboratory results Abnormal [facility] Performed by: Will Johnson [facility] [address] CLIA ID: [id number] [facility] Interpretation and review of laboratory results Abnormal [facility] Performed by: Will Johnson [facility] [address] CLIA ID: [id number] [facility] Interpretation and review of laboratory results Abnormal [facility] Performed by: Will Johnson [facility] [address] CLIA ID: [id number] [facility] There is no interpretation needed for this exam. IMAGING Interpretation and review of laboratory results Abnormal [facility] Performed by: Will Johnson [facility] [address] CLIA ID: [id number] [facility] Interpretation and review of laboratory results Abnormal [facility] Performed by: Summa Colome, [address] [place] [address] CLIA ID: [id number] [facility] [employer]™ Medical Myla Sinus rhythm Nonspecific T abnormalities, anterior leads Electronically Signed On 03-31-2025 08:56:56 EDT by Pawan Chin CV Pawan Wright MD - 03/31/2025 IMPRESSION: Sinus rhythm Nonspecific T abnormalities, anterior leads Electronically Signed On 03-31-2025 08:56:56 EDT by Pawan Chin [facility] Myla Interpretation and review of laboratory results Normal [facility] Myla No Panel InformationOrdered By: Pawan Chin on 03-31-2025 P [place] 34 degrees [employer] Work Phone: FL Interval 174 ms [employer] Work Phone: QRS [place] 48 degrees [employer] Work Phone: QRSD Interval 88 ms [facility] Work Phone: QT Interval 339 ms [employer] Work Phone: QTC Interval 400 ms [employer] Myla Work Phone: T Wave [place] -5 degrees [employer] Work Phone: [employer] Work Phone: Nursing Noteon 03-31-2025 Nursing Note Pt bgl 277. Dr ngo notified and insulin order placed at this time Normal [facility] Myla [facility] Op Noteon 03-31-2025 Op Note Operative Report Patient Name: Tita Keith Date of : 1935 Date of Surgery: 03/31/25 Pre-operative diagnosis: Right peritrochanteric femur fracture Post-operative diagnosis: Same Procedure(s): Intertan nailing of right hip (CPT 91343) Surgeon: Trae Deleon M.D. Operational Test Mechanic(s): Verna PGY-I Anesthesia: Nerve Block and General [...] as well as medical complications such as ID, stroke, PE, DVT, and even . Patient [...] was impacted using the depth tower to mold finisher the depth of placement. The proximal femur [...] Deleon MD at 03/31/25, 8:18 PM Normal [facility] PROTHROMBIN TIMEon INR Coag (PPP) [Relative time] 1.0 {INR} Normal 0.9-1.1 [facility] Comment on above: Result Comment: Marquise [...] to prevent Myocardial Infarction Performed By: #### L [id number], [id number] ####Aluminum Shingle Roofer: GISSEL SHAW ([id number])[facility] ([facility])[address] [place] [address] PT Coag (PPP) [Time] 10.9 s Normal 9.0-12.0 [facility] Comment on above: Performed By: #### Brooks AB320, [id number] ####Aluminum Shingle Roofer: GISSEL SHAW ([id number])[facility] ([facility])[address] [place] [address] PT Coag (Bld) [Time]on 03-31 INR Coag (PPP) [Relative time] 1 {INR} 0.9 - 1.1 [facility] Comment on above: Recommended Anticoag ulant Therapy: [...] -Consent obtained over phone from Kayleigh Mendez [facility] power of state attorney -Pre-op workup complete -Ice -APS consulted -Bedrest -Admit to medicine -Pain control & medical management per primary -Please hold DVT prophylaxis in anticipation of OR -Please comment on clearance in case of OR, 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 Scattered vascular calcification is noted. [facility] [employer] Minh Sylvester MD - 03/31/2025 Patient Name: TITA KEITH : 1935 Exam [...] Electronically Signed Date/Time: 03/31/2025 12:10 AM EDT [employer] XR Knee - right 1 or 2 Views Ordered By: Minh Sylvester on 03-31-2025 [employer] XR Pelvis 1 or 2 Viewson Radiology Study observation (narrative) [facility] loree aPTT Coag (Bld) [Time]on aPTT Coag (PPP) [Time] 28.6 s 20.0 - 30.5 s [employer] NOTE: The therapeutic time for Heparin anticoagulation, based on Xa activity inhibition, is an APTT of 46-80 seconds. [employer] Consulton 03-30-2025 Consult Attestation signed by Trae [...] as necessary. I discussed patient concerns with Tita's R.Tatiana and instructions were given. Please see our orders for the updated patient care plan. Risks of fracture surgery in general were reviewed including, but not limited to, infection, non-union, need for additional procedures, painful or prominent hardware which could require additional surgery, failure of fixation which would require revision, damage to normal structures, as well as medical complications such as ID, stroke, PE, DVT, and even . Patient/family was given opportunity to ask questions and consider his options. They ultimately elected to proceed with surgery. No guarantees were stated or implied. Ortho Consult Patient: Tita Keith Date of : 1935 Acct: [id number] PCP: Marj Plasencia Date of Admission: 03/30/2025 [...] Authorizing Provider cholecalciferol (Vitamin D-3) 50 MCG (2000 UT) [...] declined Physically Abused: (more content not included)... Normal [facility] ED Provider Noteon ED Provider Note EMERGENCY DEPARTMENT ENCOUNTER Pt Name: Tita Keith Birthdate 1935 Date of evaluation: 03/30/2025 ED Provider: Jj Lara MD CHIEF COMPLAINT Chief Complaint Patient presents with Fall Pt had a fall last night at [facility]. [facility] performed an X-Ray that shows a [...] Rate Resp BP 03/30/25 1802 03/30/25 1758 03/30/25175703/30/251757 37.3 ?C (99.1 ?F) 83 18 (!) [...] right intertrochanter (more content not included)... Normal [facility] No Panel InformationOrdered By: Gerhard Hannah on 03-30-2025 [employer] Work Phone: XR Chest Single viewon 03-30 Normal examination. Report Dictated on Electronically Signed By: Gerhard Hannah MD Electronically Signed Date/Time: 03/30/2025 7:24 PM EDT [facility] [employer] [facility] 1935 [id number] Exam Date/Time: 03/30/2025 18:52 Procedure: XR CHEST 1 VIEW Ordering Provider: LARA MARK Reason For Exam: sob Chest one view History: Short of breath The heart, mediastinum, pulmonary vasculature, lungs and pleural spaces are normal. [facility] Gerhard Hannah MD - 03/30/2025 [...] Electronically Signed Date/Time: 03/30/2025 7:24 PM EDT [facility] Radiology Study observation (narrative) [facility] XR Femur - right 2 Viewson 0 [...] Electronically Signed Date/Time: 03/30/2025 7:25 PM EDT [facility] RADIOLOGY SYSTEM Gerhard Hannah MD - 03/30/2025 [...] Electronically Signed Date/Time: 03/30/2025 7:25 PM EDT [facility] Radiology Study observation (narrative) [facility] XR Knee - right 1 or 2 Views on 03-30-2025 Radiology Study observation (narrative) [facility] XR Pelvis 1 or 2 Viewson [...] Electronically Signed Date/Time: 03/30/2025 7:25 PM EDT [facility] Gerhard Hannah MD - 03/30/2025 [...] Electronically Signed Date/Time: 03/30/2025 7:25 PM EDT [facility] Radiology Study observation (narrative) [facility] Anion gap in Serum or Plasma Ordered By: Javy Lynn on 03-03-2025 Anion gap [Moles/Vol] 9 mmol/L 5-15 [facility] BUN/creatinine ratioOrdered By: Javy Lynn on 03-03-2025 Urea nitrogen/Creatinine [Mass ratio] 24.7 mg/mg High 10-20 [facility] Bilirubin, totalOrdered By: Javy Lynn on 03-03-2025 Bilirubin [Mass/Vol] 0.48 mg/dL 0.00-1.30 [facility] CBC-Complete Blood Cnt No Di ffon 03-03-2025 Erythrocyte distribution width (RBC) [Ratio] 12.7 % Normal 11.6-14.6 [facility] Comment on above: Performed By: #### L 500.4050, M100.2200, L400.0001, L100.0100 #### [facility] [address] [place], [address] Hematocrit (Bld) [Volume fraction] 37.6 % Low 40-54 [facility] Comment on above: Performed By: #### L 500.4050, M100.2200, L400.0001, L100.0100 #### [facility] [address] [place], [address] Hemoglobin (Bld) [Mass/Vol] 12.5 g/dL Low 13.0-16.5 [facility] Comment on above: Performed By: #### L 500.4050, M100.2200, L400.0001, L100.0100 #### [facility] [address] [place], [address] MCH (RBC) [Entitic mass] 30.6 pg Normal 27.0-32.0 [facility] Comment on above: Performed By: #### L 500.4050, M100.2200, L400.0001, L100.0100 #### [facility] [address] [place], [address] MCHC (RBC) [Mass/Vol] 33.2 g/dL Normal 32-36 [facility] Comment on above: Performed By: #### L 500.4050, M100.2200, L400.0001, L100.0100 #### [facility] [address] [place], [address] MCV (RBC) [Entitic vol] 91.9 fL Normal 80-94 [facility] Comment on above: Performed By: #### L 500.4050, M100.2200, L400.0001, L100.0100 #### [facility] [address] [place], [address] Platelet mean volume (Bld) [Entitic vol] 11.1 fL Normal 6.2-12.0 [facility] Comment on above: Performed By: #### L 500.4050, M100.2200, L400.0001, L100.0100 #### [facility] [address] [place], [address] Platelets (Bld) [#/Vol] 163 10*3/uL Normal 150-450 [facility] Comment on above: Performed By: #### L 500.4050, M100.2200, L400.0001, L100.0100 #### [facility] [address] [place], [address] RBC (Bld) [#/Vol] 4.09 10*6/uL Low 4.6-6.2 [facility] Comment on above: Performed By: #### L 500.4050, M100.2200, L400.0001, L100.0100 #### [facility] [address] [place], [address] RDW SD 42.8 fl Normal 35.1-43.9 [facility] Comment on above: Performed By: #### L 500.4050, M100.2200, L400.0001, L100.0100 #### [facility] [address] [place], [address] WBC (Bld) [#/Vol] 7.4 10*3/uL Normal 4.4-11.0 [facility] Comment on above: Performed By: #### L 500.4050, M100.2200, L400.0001, L100.0100 #### [facility] [address] [place], [address] Carbon dioxide, total [Moles /volume] in Central venous bloodOrdered By: Javy Lynn on 03-03-2025 CO2 [Moles/Vol] 27.1 mmol/L 21.0-32.0 [facility] Chloride assayOrdered By: Manzanares on 03-03-2025 Chloride [Moles/Vol] 102 mmol/L 98-108 [facility] Comprehensive Metabolic Prof ilon 03-03-2025 Albumin [Mass/Vol] 3.7 g/dL Normal 3.4-4.8 [facility] Comment on above: Performed By: #### L 500.4050, M100.2200, L400.0001, L100.0100 #### [facility] [address] [place], [address] Albumin/Globulin [Mass ratio] 1.2 {ratio} Normal 0.9-2.4 [facility] Comment on above: Performed By: #### L 500.4050, M100.2200, L400.0001, L100.0100 #### [facility] [address] [place], [address] ALK PHOS 133 U/L High 40-129 [facility] Comment on above: Performed By: #### L 500.4050, M100.2200, L400.0001, L100.0100 #### [facility] [address] [place], [address] ALT [Catalytic activity/Vol] 12 U/L Normal <=46 [facility] Comment on above: Performed By: #### L 500.4050, M100.2200, L400.0001, L100.0100 #### [facility] [address] [place], [address] AST [Catalytic activity/Vol] 18 U/L Normal <=37 [facility] Comment on above: Performed By: #### L 500.4050, M100.2200, L400.0001, L100.0100 #### [facility] [address] [place], [address] Bilirubin [Mass/Vol] 0.48 mg/dL Normal 0.00-1.30 [facility] Comment on above: Performed By: #### L 500.4050, M100.2200, L400.0001, L100.0100 #### [facility] [address] [place], [address] BUN/CRE 24.7 RATIO High 10-20 [facility] Comment on above: Performed By: #### L 500.4050, M100.2200, L400.0001, L100.0100 #### [facility] [address] [place], [address] Calcium [Mass/Vol] 9.8 mg/dL Normal 7.6-11.0 [facility] Comment on above: Performed By: #### L 500.4050, M100.2200, L400.0001, L100.0100 #### [facility] [address] [place], [address] Chloride [Moles/Vol] 102 mmol/L Normal 98-108 [facility] Comment on above: Performed By: #### L 500.4050, M100.2200, L400.0001, L100.0100 #### [facility] [address] [place], [address] CO2 [Moles/Vol] 27.1 mmol/L Normal 21.0-32.0 [facility] Comment on above: Performed By: #### L 500.4050, M100.2200, L400.0001, L100.0100 #### [facility] [address] [place], [address] Creatinine [Mass/Vol] 1.08 mg/dL Normal 0.70-1.20 [facility] Comment on above: Performed By: #### L 500.4050, M100.2200, L400.0001, L100.0100 #### [facility] [address] [place], [address] GAP 9 Normal 5-15 [facility] Comment on above: Performed By: #### L 500.4050, M100.2200, L400.0001, L100.0100 #### [facility] [address] [place], [address] GFR/1.73 sq M.predicted among non-blacks MDRD (S/P/Bld) [Vol rate/Area] 66 mL/min/{1.73_m2} Normal >60 [facility] Comment on above: Result Comment: mL/m in/1.73m2 CKD-EPI Creatinine Equation (2020) Performed By: #### L 500.4050, M100.2200, L400.0001, L100.0100 #### [facility] [address] [place], [address] Globulin (S) [Mass/Vol] 3.2 g/dL Normal 2.2-4.2 [facility] Comment on above: Performed By: #### L 500.4050, M100.2200, L400.0001, L100.0100 #### [facility] [address] [place], [address] Glucose [Mass/Vol] 162 mg/dL High 70-99 [facility] Comment on above: Performed By: #### L 500.4050, M100.2200, L400.0001, L100.0100 #### [facility] [address] [place], [address] Potassium [Moles/Vol] 5.1 mmol/L Normal 3.3-5.1 [facility] Comment on above: Performed By: #### L 500.4050, M100.2200, L400.0001, L100.0100 #### [facility] [address] [place], [address] Sodium [Moles/Vol] 138 mmol/L Normal 133-145 [facility] Comment on above: Performed By: #### L 500.4050, M100.2200, L400.0001, L100.0100 #### [facility] [address] [place], [address] T PROT 6.8 g/dL Normal 5.9-8.4 [facility] Comment on above: Performed By: #### L [id number], M100.2200, [id number], L100.0100 #### [facility] [address] [place], [address] Urea nitrogen [Mass/Vol] 27 mg/dL High 4-19 [facility] Comment on above: Performed By: #### L [id number], M100.2200, [id number], L100.0100 #### [facility] [address] [place], [address] Erythrocyte distribution wid th ratioOrdered By: Jvay Lynn on 03-03-2025 Erythrocyte distribution width (RBC) [Ratio] 12.7 % 11.6-14.6 [facility] Erythrocyte distribution wid th standard deviationOrdered By: Javy Lynn on 03-03-2025 Erythrocyte distribution width (RBC) [Ratio] 42.8 fl 35.1-43.9 [facility] Glomerular filtration rate ( GFR) estimation/1.73 sq m using serum, plasma, or whole bOrdered By: Javy Lynn on 03-03-2025 GFR/1.73 sq M.predicted among non-blacks MDRD (S/P/Bld) [Vol rate/Area] 66 mL/min/{1.73_m2} >60 [facility] Comment on above: mL/min/1.73m2 CKD-EP I Creatinine Equation (2020) Hematocrit Auto (Bld) [Volum e fraction]Ordered By: Javy Lynn on 03-03-2025 Hematocrit (Bld) [Volume fraction] 37.6 % Low 40-54 [facility] Hemoglobin measurementOrdere d By: Javy Lynn on 03-03-2025 Hemoglobin (Bld) [Mass/Vol] 12.5 g/dL Low 13.0-16.5 [facility] - Chemistry and C hemistry - challengeOrdered By: Javy Lynn on 03-03-2025 AST [Catalytic activity/Vol] 18 U/L <38 [facility] MCV (mean corpuscular volume ) determinationOrdered By: Javy Lynn on 03-03-2025 MCV (RBC) [Entitic vol] 91.9 fL 80-94 [facility] Mean corpuscular hemoglobin (MCH) determinationOrdered By: Javy Lynn on 03-03-2025 MCH (RBC) [Entitic mass] 30.6 pg 27.0-32.0 [facility] Mean corpuscular hemoglobin concentration (MCHC) determinationOrdered By: Javy Lynn on 03-03-2025 MCHC (RBC) [Mass/Vol] 33.2 g/dL 32-36 [facility] Mean platelet volume determi nationOrdered By: Javy Lynn on 03-03-2025 Platelet mean volume (Bld) [Entitic vol] 11.1 fL 6.2-12.0 [facility] Platelet countOrdered By: Manzanares on 03-03-2025 Platelets (Bld) [#/Vol] 163 10*3/uL 150-450 [facility] Potassium measurement (mass/ volume)Ordered By: Javy Lynn on 03-03-2025 Potassium (Unsp spec) [Mass/Vol] 5.1 mmol/L 3.3-5.1 [facility] RBC Auto (Bld) [#/Vol]Ordere d By: Javy Lynn on 03-03-2025 RBC (Bld) [#/Vol] 4.09 10*6/uL Low 4.6-6.2 [facility] Serum creatinine measurement (mass/volume)Ordered By: Javy Lynn on 03-03-2025 Creatinine [Mass/Vol] 1.08 mg/dL 0.70-1.20 [facility] Serum globulin measurementOr dered By: Javy Lynn on 03-03-2025 Globulin (S) [Mass/Vol] 3.2 g/dL 2.2-4.2 [facility] Serum glucose measurement (m ass/volume)Ordered By: Javy Lynn on 03-03-2025 Glucose [Mass/Vol] 162 mg/dL High 70-99 [facility] Serum or plasma alanine romano otransferase (ALT) measurementOrdered By: Javy Lynn on 03-03-2025 ALT [Catalytic activity/Vol] 12 U/L <47 [facility] Serum or plasma albumin saud urement (mass/volume)Ordered By: Javy Lynn on 03-03-2025 Albumin [Mass/Vol] 3.7 g/dL 3.4-4.8 [facility] Serum or plasma albumin/glob ulin mass ratioOrdered By: Javy Lynn on 03-03-2025 Albumin/Globulin [Mass ratio] 1.2 {ratio} 0.9-2.4 [facility] Serum or plasma alkaline wiliam sphatase measurementOrdered By: Javy Lynn on 03-03-2025 ALP [Catalytic activity/Vol] 133 U/L High 40-129 [facility] Serum or plasma calcium saud urement (mass/volume)Ordered By: Javy Lynn on 03-03-2025 Calcium [Mass/Vol] 9.8 mg/dL 7.6-11.0 [facility] Serum or plasma urea nitroge n measurement (mass/volume)Ordered By: Javy Lynn on 03-03-2025 Urea nitrogen [Mass/Vol] 27 mg/dL High 4-19 [facility] Serum or plasma valproate me asurement (mass/volume)Ordered By: Javy Lynn on 03-03-2025 Valproate [Mass/Vol] 19 ug/mL Low 50-100 [facility] Comment on above: Valproic Acid concen trations >100 ug/mL are potentially toxic. Sodium levelOrdered By: Javy Lynn on 03-03-2025 Sodium [Moles/Vol] 138 mmol/L 133-145 [facility] Total proteinOrdered By: Sunitha yLnn on 03-03-2025 Protein [Mass/Vol] 6.8 g/dL 5.9-8.4 [facility] Valproic Acid (Depakene) Lev angel 03-03-2025 VALPROIC ACID 19 ug/mL Low 50-100 [facility] Comment on above: Result Comment: Valp roic Acid concentrations >100 ug/mL are potentially toxic. Performed By: #### L [id number], M100.2200, [id number], L100.0100 #### [facility] [address] [place], [place], [address] White blood cell (WBC) count Ordered By: Javy Lynn on 03-03-2025 WBC (Bld) [#/Vol] 7.4 10*3/uL 4.4-11.0 [facility] Hemoglobin A1con 03-02-2025 HbA1c (Bld) [Mass fraction] 6.9 % High <=5.6 [facility] Comment on above: Order Comment: 206- Result Comment: Norm al < 5.7 % Prediabetic 5.7 - 6.4 % Diabetic >or= 6.5 % Please note range changes. Performed By: #### L [id number], M100.2200, [id number], L100.0100 #### [facility] [address] [place], [place], [address] Hemoglobin A1c percentageOrd ered By: Javy Lynn on 03-02-2025 HbA1c (Bld) [Mass fraction] 6.9 % High <5.7 [facility] Comment on above: Normal < 5.7 % Predi abetic 5.7 - 6.4 % Diabetic >or= 6.5 % Please note range changes. Hemoglobin A1con 02-17-2025 HbA1c (Bld) [Mass fraction] 6.9 % High <=5.6 [facility] Comment on above: Order Comment: 206.2 Result Comment: Norm al < 5.7 % Prediabetic 5.7 - 6.4 % Diabetic >or= 6.5 % Please note range changes. Performed By: #### L [id number], M100.2200, [id number], L100.0100 #### [facility] [address] [place], [address] Hemoglobin A1c percentageOrd ered By: Javy Lynn on 02-17-2025 HbA1c (Bld) [Mass fraction] 6.9 % High <5.7 [facility] Comment on above: Normal < 5.7 % Predi abetic 5.7 - 6.4 % Diabetic >or= 6.5 % Please note range changes. Urine Cultureon 02-15-2025 [facility] Enterococcus faecalis [place] Count 11,000-25,000 Enterococcus faecalis: REACTION Ampicillin Islt PAVEL <=2 Ciprofloxacin Islt PAVEL <=0.5 S Gentamicin Synergy Susc Islt SYN-S S levoFLOXacin Islt PAVEL 1 S Linezolid Islt PAVEL 2 S Nitrofurantoin Islt PAVEL <=16 S Streptomycin High Pot Susc Islt SYN-S S Tetracycline Islt PAVEL >=16 R Vancomycin Islt PAVEL 1 S Normal [facility] Comment on above: Performed By: #### L [id number], M100.2200, [id number], L100.0100 #### [facility] [address] [place], [address] Urinalysis, Completeon 02-13 RBC 0-5 SEEN Normal 0-5 [facility] Comment on above: Order Comment: ZACH TER SPECIMEN Performed By: #### L [id number], M100.2200, [id number], L100.0100 #### [facility] [address] [place], [address] WBC 10-25 SEEN Normal 0-5 [facility] Comment on above: Order Comment: ZACH TER SPECIMEN Performed By: #### L [id number], M100.2200, [id number], L100.0100 #### [facility] [address] [place], [address] BACTERIA 0 SEEN Normal None Seen [facility] Comment on above: Order Comment: ZACH TER SPECIMEN Performed By: #### L [id number], M100.2200, [id number], L100.0100 #### [facility] [address] [place], [address] EPI,SQUAMOUS 0 SEEN Normal 0-5 [facility] Comment on above: Order Comment: ZACH TER SPECIMEN Performed By: #### L [id number], M100.2200, [id number], L100.0100 #### [facility] [address] [place], [address] Mucus Ql (Urine sed) 0 SEEN Normal [facility] Comment on above: Order Comment: ZACH TER SPECIMEN Performed By: #### L [id number], M100.2200, [id number], L100.0100 #### [facility] [address] [place], [address] Anion gap in Serum or Plasma Ordered By: Javy Lynn on 02-12-2025 Anion gap [Moles/Vol] 10 mmol/L 5-15 [facility] BUN/creatinine ratioOrdered By: Javy Lynn on 02-12-2025 Urea nitrogen/Creatinine [Mass ratio] 27.2 mg/mg High 10-20 [facility] Basic Metabolic Profile (BMP )on 02-12-2025 BUN/CRE 27.2 RATIO High [facility]20 [facility] Comment on above: Order Comment: - Performed By: #### L [id number], M100.2200, [id number], L100.0100 #### [facility] [address] [place], [address] Calcium [Mass/Vol] 9.0 mg/dL Normal 7.6-11.0 [facility] Comment on above: Order Comment: Performed By: #### L [id number], M100.2200, [id number], L100.0100 #### [facility] [address] [place], [address] Chloride [Moles/Vol] 103 mmol/L Normal 98-108 [facility] Comment on above: Order Comment: 206-2 Performed By: #### L [id number], M100.2200, [id number], L100.0100 #### [facility] [address] [place], [address] CO2 [Moles/Vol] 26.1 mmol/L Normal 21.0-32.0 [facility] Comment on above: Order Comment: 206-2 Performed By: #### L [id number], M100.2200, [id number], L100.0100 #### [facility] [address] [place], [address] Creatinine [Mass/Vol] 1.25 mg/dL High 0.70-1.20 [facility] Comment on above: Order Comment: 206-2 Performed By: #### L [id number], M100.2200, [id number], L100.0100 #### [facility] [address] [place], [address] GAP 10 Normal 5-15 [facility] Comment on above: Order Comment: 206-2 Performed By: #### L [id number], M100.2200, [id number], L100.0100 #### [facility] [address] [place], [address] GFR/1.73 sq M.predicted among non-blacks MDRD (S/P/Bld) [Vol rate/Area] 55 mL/min/{1.73_m2} Low >60 [facility] Comment on above: Order Comment: -2 Result Comment: mL/m in/1.73m2 CKD-EPI Creatinine Equation (2020) Performed By: #### L [id number], M100.2200, [id number], L100.0100 #### [facility] [address] [place], [address] Glucose [Mass/Vol] 154 mg/dL High 70-99 [facility] Comment on above: Order Comment: 206-2 Performed By: #### L [id number], M100.2200, [id number], L100.0100 #### [facility] [address] [place], [address] Potassium [Moles/Vol] 4.4 mmol/L Normal 3.3-5.1 [facility] Comment on above: Order Comment: 206-2 Performed By: #### L [id number], M100.2200, [id number], L100.0100 #### [facility] [address] [place], [address] Sodium [Moles/Vol] 139 mmol/L Normal 133-145 [facility] Comment on above: Order Comment: 206-2 Performed By: #### L [id number], M100.2200, [id number], L100.0100 #### [facility] [address] [place], [address] Urea nitrogen [Mass/Vol] 34 mg/dL High 4-19 [facility] Comment on above: Order Comment: 206-2 Performed By: #### L [id number], M100.2200, [id number], L100.0100 #### [facility] [address] [place], [address] CBC-Complete Blood Cnt No Di ffon 02-12-2025 Erythrocyte distribution width (RBC) [Ratio] 13.2 % Normal 11.6-14.6 [facility] Comment on above: Order Comment: 206-2 Performed By: #### L [id number], M100.2200, [id number], L100.0100 #### [facility] [address] [place], [address] Hematocrit (Bld) [Volume fraction] 32.8 % Low 40-54 [facility] Comment on above: Order Comment: 206-2 Performed By: #### L [id number], M100.2200, [id number], L100.0100 #### [facility] [address] [place], [address] Hemoglobin (Bld) [Mass/Vol] 10.9 g/dL Low 13.0-16.5 [facility] Comment on above: Order Comment: 206-2 Performed By: #### L 500.4050, M100.2200, [id number], L100.0100 #### [facility] [address] [place], [address] MCH (RBC) [Entitic mass] 30.6 pg Normal 27.0-32.0 [facility] Comment on above: Order Comment: 206-2 Performed By: #### L [id number], M100.2200, [id number], L100.0100 #### [facility] [address] [place], [address] MCHC (RBC) [Mass/Vol] 33.2 g/dL Normal 32-36 [facility] Comment on above: Order Comment: -2 Performed By: #### L [id number], M100.2200, [id number], L100.0100 #### [facility] [address] [place], [address] MCV (RBC) [Entitic vol] 92.1 fL Normal 80-94 [facility] Comment on above: Order Comment: 206-2 Performed By: #### L 500.4050, M100.2200, [id number], L100.0100 #### [facility] [address] [place], [address] Platelet mean volume (Bld) [Entitic vol] 11.7 fL Normal 6.2-12.0 [facility] Comment on above: Order Comment: 206-2 Performed By: #### L 500.4050, M100.2200, [id number], L100.0100 #### [facility] [address] [place], [address] Platelets (Bld) [#/Vol] 142 10*3/uL Low 150-450 [facility] Comment on above: Order Comment: 206-2 Performed By: #### L 500.4050, M100.2200, [id number], L100.0100 #### [facility] [address] [place], [address] RBC (Bld) [#/Vol] 3.56 10*6/uL Low 4.6-6.2 [facility] Comment on above: Order Comment: 206-2 Performed By: #### L [id number], M100.2200, [id number], L100.0100 #### [facility] [address] [place], [address] RDW SD 44.4 fl High 35.1-43.9 [facility] Comment on above: Order Comment: 206-2 Performed By: #### L [id number], M100.2200, [id number], L100.0100 #### [facility] [address] [place], [address] WBC (Bld) [#/Vol] 5.7 10*3/uL Normal 4.4-11.0 [facility] Comment on above: Order Comment: 206-2 Performed By: #### L [id number], M100.2200, [id number], L100.0100 #### [facility] [address] [place], [address] Carbon dioxide, total [Moles /volume] in Central venous bloodOrdered By: Javy Lynn on 02-12-2025 CO2 [Moles/Vol] 26.1 mmol/L 21.0-32.0 [facility] Chloride assayOrdered By: Manzanares on 02-12-2025 Chloride [Moles/Vol] 103 mmol/L 98-108 [facility] Eryth[facility] distribution wid th ratioOrdered By: Javy Lynn on 02-12-2025 Erythrocyte distribution width (RBC) [Ratio] 13.2 % 11.6-14.6 [facility] Erythrocyte distribution wid th standard deviationOrdered By: Javy Lynn on 02-12-2025 Erythrocyte distribution width (RBC) [Ratio] 44.4 fl High 35.1-43.9 [facility] Glomerular filtration rate ( GFR) estimation/1.73 sq m using serum, plasma, or whole bOrdered By: Javy Lynn on 02-12-2025 GFR/1.73 sq M.predicted among non-blacks MDRD (S/P/Bld) [Vol rate/Area] 55 mL/min/{1.73_m2} Low >60 [facility] Comment on above: mL/min/1.73m2 CKD-EP I Creatinine Equation (2020) Hematocrit Auto (Bld) [Volum e fraction]Ordered By: Javy Lynn on 02-12-2025 Hematocrit (Bld) [Volume fraction] 32.8 % Low 40-54 [facility] Hemoglobin measurementOrdere d By: Javy Lynn on 02-12-2025 Hemoglobin (Bld) [Mass/Vol] 10.9 g/dL Low 13.0-16.5 [facility] MCV (mean corpuscular volume ) determinationOrdered By: Javy Lynn on 02-12-2025 MCV (RBC) [Entitic vol] 92.1 fL 80-94 [facility] Mean corpuscular hemoglobin (MCH) determinationOrdered By: Javy Lynn on 02-12-2025 MCH (RBC) [Entitic mass] 30.6 pg 27.0-32.0 [facility] Mean corpuscular hemoglobin concentration (MCHC) determinationOrdered By: Javy Lynn on 02-12-2025 MCHC (RBC) [Mass/Vol] 33.2 g/dL 32-36 [facility] Mean platelet volume determi nationOrdered By: Javy Lynn on 02-12-2025 Platelet mean volume (Bld) [Entitic vol] 11.7 fL 6.2-12.0 [facility] Platelet countOrdered By: Manzanares on 02-12-2025 Platelets (Bld) [#/Vol] 142 10*3/uL Low 150-450 [facility] Potassium measurement (mass/ volume)Ordered By: Javy Lynn on 02-12-2025 Potassium (Unsp spec) [Mass/Vol] 4.4 mmol/L 3.3-5.1 [facility] RBC Auto (Bld) [#/Vol]Ordere d By: Javy Lynn on 02-12-2025 RBC (Bld) [#/Vol] 3.56 10*6/uL Low 4.6-6.2 [facility] Serum creatinine measurement (mass/volume)Ordered By: Javy Lynn on 02-12-2025 Creatinine [Mass/Vol] 1.25 mg/dL High 0.70-1.20 [facility] Serum glucose measurement (m ass/volume)Ordered By: Javy Lynn on 02-12-2025 Glucose [Mass/Vol] 154 mg/dL High 70-99 [facility] Serum or plasma calcium saud urement (mass/volume)Ordered By: Javy Lynn on 02-12-2025 Calcium [Mass/Vol] 9.0 mg/dL 7.6-11.0 [facility] Serum or plasma urea nitroge n measurement (mass/volume)Ordered By: Javy Lynn on 02-12-2025 Urea nitrogen [Mass/Vol] 34 mg/dL High 4-19 [facility] Sodium levelOrdered By: Javy Lynn on 02-12-2025 Sodium [Moles/Vol] 139 mmol/L 133-145 [facility] White blood cell (WBC) count Ordered By: Javy Lynn on 02-12-2025 WBC (Bld) [#/Vol] 5.7 10*3/uL 4.4-11.0 [facility] Bilirubin Test strip Ql (U)O rdered By: Javy Lynn on 02-11-2025 Bilirubin Ql (U) Negative Negative [facility] Ketones Test strip Ql (U)Ord ered By: Javy Lynn on 02-11-2025 Ketones Ql (U) Negative Negative [facility] Microscopic analysis of urin e for red blood cells (RBC)Ordered By: Javy Lynn on 02-11-2025 Microscopic analysis of urine for red blood cells (RBC) 0-5 SEEN /hpf 0-5 [facility] Mucus LM Ql (Urine sed)Order ed By: Javy Lynn on 02-11-2025 Mucus Ql (Urine sed) 0 SEEN /hpf [facility] Nitrite Test strip Ql (U)Ord ered By: Javy Lynn on 02-11-2025 Nitrite Ql (U) Negative Negative [facility] Protein Test strip Ql (U)Ord ered By: Javy Lynn on 02-11-2025 Protein Ql (U) 100 mg/dl High Negative [facility] Squamous epithelial cells de tection in urine sediment by light microscopyOrdered By: Javy Lynn on 02-11-2025 Epithelial cells.squamous LM Ql (Urine sed) 0 SEEN /hpf 0-5 [facility] Urine clarityOrdered By: Sunitha Lynn on 02-11-2025 Clarity (U) Sl. Cloudy Clear [facility] Urine color determinationOrd ered By: Javy Lynn on 02-11-2025 Color (U) Yellow Yellow [facility] Urine cultureOrdered By: Sunitha Lynn on 02-11-2025 Bacteria identified Cx Nom (U) Enterococcus faecalis Abnormal [facility] Urine glucose detectionOrder ed By: Javy Lynn on 02-11-2025 Glucose Ql (U) Normal mg/dl Normal [facility] Urine leukocyte esterase det ection by dipstickOrdered By: Javy Lynn on 02-11-2025 Leukocyte esterase Test strip Ql (U) 500 /ul High Negative [facility] Urine pHOrdered By: Javy gordon on 02-11-2025 pH (U) 6.0 [pH] 5.0 - 8.0 [facility] Urine sediment bacteria coun t by microscopy (number/high power field)Ordered By: Javy Lynn on 02-11-2025 Bacteria LM.HPF (Urine sed) [#/Area] 0 /[HPF] None Seen [facility] Urine specific gravity measu rementOrdered By: Javy Lynn on 02-11-2025 Specific gravity (U) [Rel density] 1.015 1.002-1.030 [facility] Urine urobilinogen measureme ntOrdered By: Javy Lynn on 02-11-2025 Urobilinogen Ql (U) Normal mg/dl Normal [facility] White blood cell countOrdere d By: Javy Lynn on 02-11-2025 White blood cell count 10-25 SEEN /hpf 0-5 [facility] Hemoglobin A1c percentageOrd ered By: Javy Lynn on 11-26-2024 HbA1c (Bld) [Mass fraction] 7.7 % High 3.8-5.6 [facility] Comment on above: Normal < 5.7 % Predi abetic 5.7 - 6.4 % Diabetic >or= 6.5 % Please note range changes. Order Comment: ZACH TER SPECIMEN Result Comment: Norm al < 5.7 % Prediabetic 5.7 - 6.4 % Diabetic >or= 6.5 % Please note range changes. Performed By: #### L [id number], M100.2200, [id number], L100.0100 #### [facility] [address] [place], [address] Basic Metabolic Profile (BMP )on 11-07-2024 BUN/CRE 21.4 RATIO High 10-20 [facility] Comment on above: Order Comment: 206.2 Performed By: #### L [id number], M100.2200, [id number], L100.0100 #### [facility] [address] [place], [address] CA,Total 9.5 mg/dL Normal 8.5-10.1 [facility] Comment on above: Order Comment: 206.2 Performed By: #### L [id number], M100.2200, [id number], L100.0100 #### [facility] [address] [place], [address] Chloride [Moles/Vol] 106 mmol/L Normal 98-107 [facility] Comment on above: Order Comment: 206.2 Performed By: #### L [id number], M100.2200, [id number], L100.0100 #### [facility] [address] [place], [address] CO2 [Moles/Vol] 27.0 mmol/L Normal 21.0-32.0 [facility] Comment on above: Order Comment: .2 Performed By: #### L [id number], M100.2200, [id number], L100.0100 #### [facility] [address] [place], [address] Creatinine [Mass/Vol] 1.54 mg/dL High 0.70-1.30 [facility] Comment on above: Order Comment: .2 Result Comment: The validity of the calculated GFR GFRAA in patients over 70 years has not been determined. Clinical correlation is essential. Performed By: #### L 500.4050, M100.2200, [id number], L100.0100 #### [facility] [address] [place], [address] EST GFR - AA 55 mL/min Low >60 [facility] Comment on above: Order Comment: .2 Result Comment: Afri can [place] GFR Calc Performed By: #### L [id number], M100.2200, [id number], L100.0100 #### [facility] [address] [place], [address] GAP 6 Normal 5-15 [facility] Comment on above: Order Comment: .2 Performed By: #### L [id number], M100.2200, [id number], L100.0100 #### [facility] [address] [place], [address] GFR/1.73 sq M.predicted among non-blacks MDRD (S/P/Bld) [Vol rate/Area] 45 mL/min/{1.73_m2} Low >60 [facility] Comment on above: Order Comment: 206.2 Result Comment: Non- GFR Calc Performed By: #### L 500.4050, M100.2200, [id number], L100.0100 #### [facility] [address] [place], [address] Glucose [Mass/Vol] 173 mg/dL High 74-106 [facility] Comment on above: Order Comment: 206.2 Result Comment: Fast ing Glucose result greater than or equal to 126 mg/dL suggests DIABETES MELLITUS per A.D.A. criteria. Performed By: #### L 500.4050, M100.2200, L400.0001, L100.0100 #### [facility] [address] [place], [address] Potassium [Moles/Vol] 4.7 mmol/L Normal 3.5-5.1 [facility] Comment on above: Order Comment: 206.2 Performed By: #### L 500.4050, M100.2200, L400.0001, L100.0100 #### [facility] [address] [place], [address] Sodium [Moles/Vol] 139 mmol/L Normal 136-145 [facility] Comment on above: Order Comment: 206.2 Performed By: #### L 500.4050, M100.2200, L400.0001, L100.0100 #### [facility] [address] [place], [address] Urea nitrogen [Mass/Vol] 33 mg/dL High 7-18 [facility] Comment on above: Order Comment: 206.2 Performed By: #### L 500.4050, M100.2200, L400.0001, L100.0100 #### [facility] [address] [place], [address] Blood urea nitrogen (BUN)/cr eatinine ratioOrdered By: Javy Lynn on 11-07-2024 Urea nitrogen/Creatinine [Mass ratio] 21.4 mg/mg High 10-20 [facility] CBC-Complete Blood Cnt No Di ffon 11-07-2024 Erythrocyte distribution width (RBC) [Ratio] 13.0 % Normal 11.6-14.6 [facility] Comment on above: Order Comment: 206.2 Performed By: #### L 500.4050, M100.2200, L400.0001, L100.0100 #### [facility] [address] [place], [address] Hematocrit (Bld) [Volume fraction] 40.2 % Normal 40-54 [facility] Comment on above: Order Comment: 206.2 Performed By: #### L 500.4050, M100.2200, L400.0001, L100.0100 #### [facility] [address] [place], [address] Hemoglobin (Bld) [Mass/Vol] 12.8 g/dL Low 13.0-16.5 [facility] Comment on above: Order Comment: 206.2 Performed By: #### L 500.4050, M100.2200, L400.0001, L100.0100 #### [facility] [address] [place], [address] MCH (RBC) [Entitic mass] 29.5 pg Normal 27.0-32.0 [facility] Comment on above: Order Comment: 206.2 Performed By: #### L 500.4050, M100.2200, L400.0001, L100.0100 #### [facility] [address] [place], [address] MCHC (RBC) [Mass/Vol] 31.8 g/dL Low 32-36 [facility] Comment on above: Order Comment: 206.2 Performed By: #### L 500.4050, M100.2200, L400.0001, L100.0100 #### [facility] [address] [place], [address] MCV (RBC) [Entitic vol] 92.6 fL Normal 80-94 [facility] Comment on above: Order Comment: 206.2 Performed By: #### L 500.4050, M100.2200, L400.0001, L100.0100 #### [facility] [address] [place], [address] Platelet mean volume (Bld) [Entitic vol] 11.6 fL Normal 6.2-12.0 [facility] Comment on above: Order Comment: 206.2 Performed By: #### L 500.4050, M100.2200, L400.0001, L100.0100 #### [facility] [address] [place], [address] Platelets (Bld) [#/Vol] 111 10*3/uL Low 150-450 [facility] Comment on above: Order Comment: 206.2 Performed By: #### L 500.4050, M100.2200, L400.0001, L100.0100 #### [facility] [address] [place], [address] RBC (Bld) [#/Vol] 4.34 10*6/uL Low 4.6-6.2 [facility] Comment on above: Order Comment: 206.2 Performed By: #### L 500.4050, M100.2200, L400.0001, L100.0100 #### [facility] [address] [place], [address] RDW SD 44.2 fl High 35.1-43.9 [facility] Comment on above: Order Comment: 206.2 Performed By: #### L 500.4050, M100.2200, L400.0001, L100.0100 #### [facility] [address] [place], [place], [address] WBC (Bld) [#/Vol] 5.6 10*3/uL Normal 4.4-11.0 [facility] Comment on above: Order Comment: 206.2 Performed By: #### L 500.4050, M100.2200, L400.0001, L100.0100 #### [facility] [address] [place], [address] Carbon dioxide measurementOr dered By: Javy Lynn on 11-07-2024 CO2 [Moles/Vol] 27.0 mmol/L 21.0-32.0 [facility] Chloride measurementOrdered By: Javy Lynn on 11-07-2024 Chloride [Moles/Vol] 106 mmol/L 98-107 [facility] Erythrocyte distribution wid th ratioOrdered By: Javy Lynn on 11-07-2024 Erythrocyte distribution width (RBC) [Ratio] 13.0 % 11.6-14.6 [facility] Erythrocyte distribution wid th standard deviationOrdered By: Javy Lynn on 11-07-2024 Erythrocyte distribution width (RBC) [Ratio] 44.2 fl High 35.1-43.9 [facility] Glomerular filtration rate ( GFR) estimationOrdered By: Javy Lynn on 11-07-2024 GFR/1.73 sq M.predicted among non-blacks MDRD (S/P/Bld) [Vol rate/Area] 45 mL/min/{1.73_m2} Low >60 [facility] Comment on above: Non- GFR Calc Glucose measurementOrdered B y: Javy Lynn on 11-07-2024 Glucose [Mass/Vol] 173 mg/dL High 74-106 [facility] Comment on above: Fasting Glucose resu lt greater than or equal to 126 mg/dL suggests DIABETES MELLITUS per A.D.A. criteria. Hematocrit Auto (Bld) [Volum e fraction]Ordered By: Javy Lynn on 11-07-2024 Hematocrit (Bld) [Volume fraction] 40.2 % 40-54 [facility] Hemoglobin measurementOrdere d By: Javy Lynn on 11-07-2024 Hemoglobin (Bld) [Mass/Vol] 12.8 g/dL Low 13.0-16.5 [facility] MCV (mean corpuscular volume ) determinationOrdered By: Javy Lynn on 11-07-2024 MCV (RBC) [Entitic vol] 92.6 fL 80-94 [facility] Mean corpuscular hemoglobin (MCH) determinationOrdered By: Javy Lynn on 11-07-2024 MCH (RBC) [Entitic mass] 29.5 pg 27.0-32.0 [facility] Mean corpuscular hemoglobin concentration (MCHC) determinationOrdered By: Javy Lynn on 11-07-2024 MCHC (RBC) [Mass/Vol] 31.8 g/dL Low 32-36 [facility] Mean platelet volume determi nationOrdered By: Javy Lynn on 11-07-2024 Platelet mean volume (Bld) [Entitic vol] 11.6 fL 6.2-12.0 [facility] Platelet countOrdered By: Manzanares on 11-07-2024 Platelets (Bld) [#/Vol] 111 10*3/uL Low 150-450 [facility] Potassium measurementOrdered By: Javy Lynn on 11-07-2024 Potassium [Moles/Vol] 4.7 mmol/L 3.5-5.1 [facility] RBC Auto (Bld) [#/Vol]Ordere d By: Javy Lynn on 11-07-2024 RBC (Bld) [#/Vol] 4.34 10*6/uL Low 4.6-6.2 [facility] Serum anion gap measurementO rdered By: Javy Lynn on 11-07-2024 Anion gap [Moles/Vol] 6 mmol/L 5-15 [facility] Serum or plasma calcium saud urement (mass/volume)Ordered By: Javy Lynn on 11-07-2024 Calcium [Mass/Vol] 9.5 mg/dL 8.5-10.1 [facility] Serum or plasma creatinine m easurement (mass/volume)Ordered By: Javy Lynn on 11-07-2024 Creatinine [Mass/Vol] 1.54 mg/dL High 0.70-1.30 [facility] Comment on above: The validity of the calculated GFR & GFRAA in patients over 70 years has not been determined. Clinical correlation is essential. Serum or plasma urea nitroge n measurement (mass/volume)Ordered By: Javy Lynn on 11-07-2024 Urea nitrogen [Mass/Vol] 33 mg/dL High 7-18 [facility] Sodium levelOrdered By: Javy Lynn on 11-07-2024 Sodium [Moles/Vol] 139 mmol/L 136-145 [facility] White blood cell (WBC) count Ordered By: Javy Lynn on 11-07-2024 WBC (Bld) [#/Vol] 5.6 10*3/uL 4.4-11.0 [facility] CBC-Complete Blood Cnt No Di ffon 10-07-2024 Erythrocyte distribution width (RBC) [Ratio] 12.9 % Normal 11.6-14.6 [facility] Comment on above: Order Comment: 206.2 Performed By: #### L 500.4050, M100.2200, L400.0001, L100.0100 #### [facility] [address] [place], [address] Hematocrit (Bld) [Volume fraction] 38.2 % Low 40-54 [facility] Comment on above: Order Comment: 206.2 Performed By: #### L 500.4050, M100.2200, L400.0001, L100.0100 #### [facility] [address] [place], [address] Hemoglobin (Bld) [Mass/Vol] 12.2 g/dL Low 13.0-16.5 [facility] Comment on above: Order Comment: 206.2 Performed By: #### L 500.4050, M100.2200, L400.0001, L100.0100 #### [facility] [address] [place], [address] MCH (RBC) [Entitic mass] 29.9 pg Normal 27.0-32.0 [facility] Comment on above: Order Comment: 206.2 Performed By: #### L 500.4050, M100.2200, L400.0001, L100.0100 #### [facility] [address] [place], [address] MCHC (RBC) [Mass/Vol] 31.9 g/dL Low 32-36 [facility] Comment on above: Order Comment: 206.2 Performed By: #### L 500.4050, M100.2200, L400.0001, L100.0100 #### [facility] [address] [place], [address] MCV (RBC) [Entitic vol] 93.6 fL Normal 80-94 [facility] Comment on above: Order Comment: 206.2 Performed By: #### L 500.4050, M100.2200, L400.0001, L100.0100 #### [facility] [address] [place], [address] Platelet mean volume (Bld) [Entitic vol] 11.6 fL Normal 6.2-12.0 [facility] Comment on above: Order Comment: 206.2 Performed By: #### L 500.4050, M100.2200, L400.0001, L100.0100 #### [facility] [address] [place], [address] Platelets (Bld) [#/Vol] 173 10*3/uL Normal 150-450 [facility] Comment on above: Order Comment: 206.2 Performed By: #### L 500.4050, M100.2200, L400.0001, L100.0100 #### [facility] [address] [place], [address] RBC (Bld) [#/Vol] 4.08 10*6/uL Low 4.6-6.2 [facility] Comment on above: Order Comment: 206.2 Performed By: #### L 500.4050, M100.2200, L400.0001, L100.0100 #### [facility] [address] [place], [address] RDW SD 44.7 fl High 35.1-43.9 [facility] Comment on above: Order Comment: 206.2 Performed By: #### L 500.4050, M100.2200, L400.0001, L100.0100 #### [facility] [address] [place], [address] WBC (Bld) [#/Vol] 3.9 10*3/uL Low 4.4-11.0 [facility] Comment on above: Order Comment: 206.2 Performed By: #### L 500.4050, M100.2200, L400.0001, L100.0100 #### [facility] [address] [place], [address] Comprehensive Metabolic [facility] 10-07-2024 Albumin [Mass/Vol] 2.8 g/dL Low 3.2-5.0 [facility] Comment on above: Order Comment: 206.2 Performed By: #### L 500.4050, M100.2200, L400.0001, L100.0100 #### [facility] [address] [place], [address] Albumin/Globulin [Mass ratio] 0.8 {ratio} Low 0.9-2.4 [facility] Comment on above: Order Comment: 206.2 Performed By: #### L 500.4050, M100.2200, L400.0001, L100.0100 #### [facility] [address] [place], [address] ALK P 112 U/L Normal 45-117 [facility] Comment on above: Order Comment: 206.2 Performed By: #### L 500.4050, M100.2200, L400.0001, L100.0100 #### [facility] [address] [place], [address] ALT [Catalytic activity/Vol] 18 U/L Normal 16-61 [facility] Comment on above: Order Comment: 206.2 Performed By: #### L 500.4050, M100.2200, L400.0001, L100.0100 #### [facility] [address] [place], [address] AST [Catalytic activity/Vol] 20 U/L Normal 15-37 [facility] Comment on above: Order Comment: 206.2 Result Comment: Slig ht Hemolysis, Result may be falsely increased. Performed By: #### L 500.4050, M100.2200, L400.0001, L100.0100 #### [facility] [address] [place], [address] Bilirubin [Mass/Vol] 0.30 mg/dL Normal 0.20-1.00 [facility] Comment on above: Order Comment: 206.2 Result Comment: For patients on eltrombopag therapy, use of Dimension [place] TBIL is not recommended. Performed By: #### L 500.4050, M100.2200, L400.0001, L100.0100 #### [facility] [address] [place], [address] BUN/CRE 31.9 RATIO High 10-20 [facility] Comment on above: Order Comment: 206.2 Performed By: #### L 500.4050, M100.2200, L400.0001, L100.0100 #### [facility] [address] [place], [address] CA,Total 9.1 mg/dL Normal 8.5-10.1 [facility] Comment on above: Order Comment: 206.2 Performed By: #### L 500.4050, M100.2200, L400.0001, L100.0100 #### [facility] [address] [place], [address] Chloride [Moles/Vol] 109 mmol/L High 98-107 [facility] Comment on above: Order Comment: .2 Performed By: #### L 500.4050, M100.2200, L400.0001, L100.0100 #### [facility] [address] [place], [address] CO2 [Moles/Vol] 26.0 mmol/L Normal 21.0-32.0 [facility] Comment on above: Order Comment: .2 Performed By: #### L 500.4050, M100.2200, L400.0001, L100.0100 #### [facility] [address] [place], [address] Creatinine [Mass/Vol] 1.19 mg/dL Normal 0.70-1.30 [facility] Comment on above: Order Comment: .2 Result Comment: The validity of the calculated GFR GFRAA in patients over 70 years has not been determined. Clinical correlation is essential. Performed By: #### L 500.4050, M100.2200, L400.0001, L100.0100 #### [facility] [address] [place], [address] EST GFR - AA 74 mL/min Normal >60 [facility] Comment on above: Order Comment: .2 Result Comment: Afri can [place] GFR Calc Performed By: #### L 500.4050, M100.2200, L400.0001, L100.0100 #### [facility] [address] [place], [address] GAP 5 Normal 5-15 [facility] Comment on above: Order Comment: .2 Performed By: #### L 500.4050, M100.2200, L400.0001, L100.0100 #### [facility] [address] [place], [address] GFR/1.73 sq M.predicted among non-blacks MDRD (S/P/Bld) [Vol rate/Area] 61 mL/min/{1.73_m2} Normal >60 [facility] Comment on above: Order Comment: 206.2 Result Comment: Non- GFR Calc Performed By: #### L 500.4050, M100.2200, L400.0001, L100.0100 #### [facility] [address] [place], [address] Globulin (S) [Mass/Vol] 3.7 g/dL Normal 2.2-4.2 [facility] Comment on above: Order Comment: 206.2 Performed By: #### L 500.4050, M100.2200, L400.0001, L100.0100 #### [facility] [address] [place], [address] Glucose [Mass/Vol] 89 mg/dL Normal 74-106 [facility] Comment on above: Order Comment: 206.2 Performed By: #### L 500.4050, M100.2200, L400.0001, L100.0100 #### [facility] [address] [place], [address] Potassium [Moles/Vol] 4.4 mmol/L Normal 3.5-5.1 [facility] Comment on above: Order Comment: 206.2 Result Comment: Slig ht Hemolysis, Result may be falsely increased. Performed By: #### L 500.4050, M100.2200, L400.0001, L100.0100 #### [facility] [address] [place], [address] Sodium [Moles/Vol] 139 mmol/L Normal 136-145 [facility] Comment on above: Order Comment: 206.2 Performed By: #### L 500.4050, M100.2200, L400.0001, L100.0100 #### [facility] [address] [place], [address] T PROT 6.5 g/dL Normal 6.4-8.2 [facility] Comment on above: Order Comment: 206.2 Performed By: #### L 500.4050, M100.2200, L400.0001, L100.0100 #### [facility] [address] [place], [address] Urea nitrogen [Mass/Vol] 38 mg/dL High 7-18 [facility] Comment on above: Order Comment: 206.2 Performed By: #### L 500.4050, M100.2200, L400.0001, L100.0100 #### [facility] [address] [place], [address] Urine Cultureon 09-21-2024 URC Organism is too fastidious for routine susceptibility studies. Urine Culture Urine Culture Urine Culture Aerococcus sanguinicola [place] Count >100,000 Normal [facility] Comment on above: Performed By: #### L 500.4050, M100.2200, L400.0001, L100.0100 #### [facility] [address] [place], [address] CBC-Complete Blood Cnt No Di ffon 09-17-2024 Erythrocyte distribution width (RBC) [Ratio] 13.2 % Normal 11.6-14.6 [facility] Comment on above: Order Comment: 206.2 Performed By: #### L 500.4050, M100.2200, L400.0001, L100.0100 #### [facility] [address] [place], [address] Hematocrit (Bld) [Volume fraction] 36.0 % Low 40-54 [facility] Comment on above: Order Comment: 206.2 Performed By: #### L 500.4050, M100.2200, L400.0001, L100.0100 #### [facility] [address] [place], [address] Hemoglobin (Bld) [Mass/Vol] 12.0 g/dL Low 13.0-16.5 [facility] Comment on above: Order Comment: 206.2 Performed By: #### L 500.4050, M100.2200, L400.0001, L100.0100 #### [facility] [address] [place], [address] MCH (RBC) [Entitic mass] 30.5 pg Normal 27.0-32.0 [facility] Comment on above: Order Comment: 206.2 Performed By: #### L 500.4050, M100.2200, L400.0001, L100.0100 #### [facility] [address] [place], [address] MCHC (RBC) [Mass/Vol] 33.3 g/dL Normal 32-36 [facility] Comment on above: Order Comment: 206.2 Performed By: #### L 500.4050, M100.2200, L400.0001, L100.0100 #### [facility] [address] [place], [address] MCV (RBC) [Entitic vol] 91.6 fL Normal 80-94 [facility] Comment on above: Order Comment: 206.2 Performed By: #### L 500.4050, M100.2200, L400.0001, L100.0100 #### [facility] [address] [place], [address] Platelet mean volume (Bld) [Entitic vol] 12.0 fL Normal 6.2-12.0 [facility] Comment on above: Order Comment: 206.2 Performed By: #### L 500.4050, M100.2200, L400.0001, L100.0100 #### [facility] [address] [place], [address] Platelets (Bld) [#/Vol] 119 10*3/uL Low 150-450 [facility] Comment on above: Order Comment: 206.2 Performed By: #### L 500.4050, M100.2200, L400.0001, L100.0100 #### [facility] [address] [place], [address] RBC (Bld) [#/Vol] 3.93 10*6/uL Low 4.6-6.2 [facility] Comment on above: Order Comment: 206.2 Performed By: #### L 500.4050, M100.2200, L400.0001, L100.0100 #### [facility] [address] [place], [address] RDW SD 44.2 fl High 35.1-43.9 [facility] Comment on above: Order Comment: 206.2 Performed By: #### L 500.4050, M100.2200, L400.0001, L100.0100 #### [facility] [address] [place], [address] WBC (Bld) [#/Vol] 14.0 10*3/uL High 4.4-11.0 [facility] Comment on above: Order Comment: 206.2 Performed By: #### L 500.4050, M100.2200, L400.0001, L100.0100 #### [facility] [address] [place], [address] Comprehensive Metabolic Prof [facility] 09-17-2024 Albumin [Mass/Vol] 2.9 g/dL Low 3.2-5.0 [facility] Comment on above: Order Comment: 206.2 Performed By: #### L 500.4050, M100.2200, L400.0001, L100.0100 #### [facility] [address] [place], [address] Albumin/Globulin [Mass ratio] 0.8 {ratio} Low 0.9-2.4 [facility] Comment on above: Order Comment: 206.2 Performed By: #### L 500.4050, M100.2200, L400.0001, L100.0100 #### [facility] [address] [place], [address] ALK P 97 U/L Normal 45-117 [facility] Comment on above: Order Comment: 206.2 Performed By: #### L 500.4050, M100.2200, L400.0001, L100.0100 #### [facility] [address] [place], [address] ALT [Catalytic activity/Vol] 24 U/L Normal 16-61 [facility] Comment on above: Order Comment: 206.2 Performed By: #### L 500.4050, M100.2200, L400.0001, L100.0100 #### [facility] [address] [place], [address] AST [Catalytic activity/Vol] 17 U/L Normal 15-37 [facility] Comment on above: Order Comment: 206.2 Performed By: #### L 500.4050, M100.2200, L400.0001, L100.0100 #### [facility] [address] [place], [address] Bilirubin [Mass/Vol] 0.60 mg/dL Normal 0.20-1.00 [facility] Comment on above: Order Comment: 206.2 Result Comment: For patients on eltrombopag therapy, use of Dimension [place] TBIL is not recommended. Performed By: #### L 500.4050, M100.2200, L400.0001, L100.0100 #### [facility] [address] [place], [address] BUN/CRE 26.8 RATIO High 10-20 [facility] Comment on above: Order Comment: 206.2 Performed By: #### L 500.4050, M100.2200, L400.0001, L100.0100 #### [facility] [address] [place], [address] CA,Total 9.0 mg/dL Normal 8.5-10.1 [facility] Comment on above: Order Comment: .2 Performed By: #### L 500.4050, M100.2200, L400.0001, L100.0100 #### [facility] [address] [place], [address] Chloride [Moles/Vol] 104 mmol/L Normal 98-107 [facility] Comment on above: Order Comment: .2 Performed By: #### L 500.4050, M100.2200, L400.0001, L100.0100 #### [facility] [address] [place], [address] CO2 [Moles/Vol] 29.0 mmol/L Normal 21.0-32.0 [facility] Comment on above: Order Comment: .2 Performed By: #### L 500.4050, M100.2200, L400.0001, L100.0100 #### [facility] [address] [place], [address] Creatinine [Mass/Vol] 1.53 mg/dL High 0.70-1.30 [facility] Comment on above: Order Comment: .2 Result Comment: The validity of the calculated GFR GFRAA in patients over 70 years has not been determined. Clinical correlation is essential. Performed By: #### L 500.4050, M100.2200, L400.0001, L100.0100 #### [facility] [address] [place], [address] EST GFR - AA 55 mL/min Low >60 [facility] Comment on above: Order Comment: 206.2 Result Comment: Afri can Mosotho GFR Calc Performed By: #### L 500.4050, M100.2200, L400.0001, L100.0100 #### [facility] [address] [place], [address] GAP 5 Normal 5-15 [facility] Comment on above: Order Comment: 206.2 Performed By: #### L 500.4050, M100.2200, L400.0001, L100.0100 #### [facility] [address] [place], [address] GFR/1.73 sq M.predicted among non-blacks MDRD (S/P/Bld) [Vol rate/Area] 46 mL/min/{1.73_m2} Low >60 [facility] Comment on above: Order Comment: 206.2 Result Comment: Non- GFR Calc Performed By: #### L 500.4050, M100.2200, L400.0001, L100.0100 #### [facility] [address] [place], [address] Globulin (S) [Mass/Vol] 3.5 g/dL Normal 2.2-4.2 [facility] Comment on above: Order Comment: 206.2 Performed By: #### L 500.4050, M100.2200, L400.0001, L100.0100 #### [facility] [address] [place], [address] Glucose [Mass/Vol] 172 mg/dL High 74-106 [facility] Comment on above: Order Comment: .2 Result Comment: Fast ing Glucose result greater than or equal to 126 mg/dL suggests DIABETES MELLITUS per A.D.A. criteria. Performed By: #### L 500.4050, M100.2200, L400.0001, L100.0100 #### [facility] [address] [place], [address] Potassium [Moles/Vol] 4.4 mmol/L Normal 3.5-5.1 [facility] Comment on above: Order Comment: 206.2 Performed By: #### L 500.4050, M100.2200, L400.0001, L100.0100 #### [facility] [address] [place], [address] Sodium [Moles/Vol] 138 mmol/L Normal 136-145 [facility] Comment on above: Order Comment: 206.2 Performed By: #### L 500.4050, M100.2200, L400.0001, L100.0100 #### [facility] [address] [place], [address] T PROT 6.4 g/dL Normal 6.4-8.2 [facility] Comment on above: Order Comment: 206.2 Performed By: #### L 500.4050, M100.2200, L400.0001, L100.0100 #### [facility] [address] [place], [address] Urea nitrogen [Mass/Vol] 41 mg/dL High 7-18 [facility] Comment on above: Order Comment: 206.2 Performed By: #### L 500.4050, M100.2200, L400.0001, L100.0100 #### [facility] [address] [place], [address] Urinalysis, Completeon 09-17 RBC > 100 SEEN Normal 0-5 [facility] Comment on above: Order Comment: COLOR OF URINE MAY AFFECT DIPSTICK RESULTS.SCCATHETER SPECIMEN Result Comment: Micr oscopic field is filled. Other elements may be obscured. Performed By: #### L 500.4050, M100.2200, L400.0001, L100.0100 #### [facility] [address] [place], [address] WBC >100 SEEN Normal 0-5 [facility] Comment on above: Order Comment: COLOR OF URINE MAY AFFECT DIPSTICK RESULTS.SCCATHETER SPECIMEN Result Comment: Micr oscopic field is filled. Other elements may be obscured. Performed By: #### L 500.4050, M100.2200, L400.0001, L100.0100 #### [facility] [address] [place], [address] BACTERIA 0 SEEN Normal None Seen [facility] Comment on above: Order Comment: COLOR OF URINE MAY AFFECT DIPSTICK RESULTS.SCCATHETER SPECIMEN Performed By: #### L 500.4050, M100.2200, L400.0001, L100.0100 #### [facility] [address] [place], [address] EPI,SQUAMOUS 0 SEEN Normal 0-5 [facility] Comment on above: Order Comment: COLOR OF URINE MAY AFFECT DIPSTICK RESULTS.SCCATHETER SPECIMEN Performed By: #### L 500.4050, M100.2200, L400.0001, L100.0100 #### [facility] [address] [place], [address] Mucus Ql (Urine sed) 0 SEEN Normal [facility] Comment on above: Order Comment: COLOR OF URINE MAY AFFECT DIPSTICK RESULTS.SCCATHETER SPECIMEN Performed By: #### L 500.4050, M100.2200, L400.0001, L100.0100 #### [facility] [address] [place], [address] Valproic Acid (Depakene) Lev angel 09-17-2024 VALPROIC ACID 10 ug/mL Low 50-100 [facility] Comment on above: Order Comment: 206.2 Performed By: #### L 500.4050, M100.2200, L400.0001, L100.0100 #### [facility] [address] [place], [address] CBC-Complete Blood Cnt No Di ffon 09-16-2024 HCT Normal 40-54 [facility] Comment on above: Order Comment: ZACH TER SPECIMEN Result Comment: UTO X1 Performed By: #### L 500.4050, M100.2200, L400.0001, L100.0100 #### [facility] [address] [place], [address] HGB Normal 13.0-16.5 [facility] Comment on above: Order Comment: ZACH TER SPECIMEN Result Comment: UTO X1 Performed By: #### L 500.4050, M100.2200, L400.0001, L100.0100 #### [facility] [address] [place], [address] MCH Normal 27.0-32.0 [facility] Comment on above: Order Comment: ZACH TER SPECIMEN Result Comment: UTO X1 Performed By: #### L 500.4050, M100.2200, L400.0001, L100.0100 #### [facility] [address] [place], [address] MCHC Normal 32-36 [facility] Comment on above: Order Comment: ZACH TER SPECIMEN Result Comment: UTO X1 Performed By: #### L 500.4050, M100.2200, L400.0001, L100.0100 #### [facility] [address] [place], [address] MCV Normal 80-94 [facility] Comment on above: Order Comment: ZACH TER SPECIMEN Result Comment: UTO X1 Performed By: #### L 500.4050, M100.2200, L400.0001, L100.0100 #### [facility] [address] [place], [address] PLT Normal 150-450 [facility] Comment on above: Order Comment: ZACH TER SPECIMEN Result Comment: UTO X1 Performed By: #### L 500.4050, M100.2200, L400.0001, L100.0100 #### [facility] [address] [place], [address] RBC Normal 4.6-6.2 [facility] Comment on above: Order Comment: ZACH TER SPECIMEN Result Comment: UTO X1 Performed By: #### L 500.4050, M100.2200, L400.0001, L100.0100 #### [facility] [address] [place], [address] RDW CV Normal 11.6-14.6 [facility] Comment on above: Order Comment: ZACH TER SPECIMEN Result Comment: UTO X1 Performed By: #### L 500.4050, M100.2200, L400.0001, L100.0100 #### [facility] [address] [place], [address] RDW SD Normal 35.1-43.9 [facility] Comment on above: Order Comment: ZACH TER SPECIMEN Result Comment: UTO X1 Performed By: #### L 500.4050, M100.2200, L400.0001, L100.0100 #### [facility] [address] [place], [address] WBC Normal 4.4-11.0 [facility] Comment on above: Order Comment: ZACH TER SPECIMEN Result Comment: UTO X1 Performed By: #### L 500.4050, M100.2200, L400.0001, L100.0100 #### [facility] [address] [place], [address] Comprehensive Metabolic Prof ilon 09-16-2024 ALB Normal 3.2-5.0 [facility] Comment on above: Order Comment: .2 Result Comment: UTO X1 Performed By: #### L 100.0500, L500.4050 #### [facility] [address] [place], [address] ALK P Normal 45-117 [facility] Comment on above: Order Comment: .2 Result Comment: UTO X1 Performed By: #### L 100.0500, L500.4050 #### [facility] [address] [place], [address] ALT Normal 16-61 [facility] Comment on above: Order Comment: 206.2 Result Comment: UTO X1 Performed By: #### L 100.0500, L500.4050 #### [facility] [address] [place], [address] AST Normal 15-37 [facility] Comment on above: Order Comment: Result Comment: UTO X1 Performed By: #### L 100.0500, L500.4050 #### [facility] [address] [place], [address] BUN Normal 7-18 [facility] Comment on above: Order Comment: Result Comment: UTO X1 Performed By: #### L 100.0500, L500.4050 #### [facility] [address] [place], [address] BUN/CRE Normal 10-20 [facility] Comment on above: Order Comment: Result Comment: UTO X1 Performed By: #### L 100.0500, L500.4050 #### [facility] [address] [place], [address] CA,Total Normal 8.5-10.1 [facility] Comment on above: Order Comment: Result Comment: UTO X1 Performed By: #### L 100.0500, L500.4050 #### [facility] [address] [place], [address] CL Normal 98-107 [facility] Comment on above: Order Comment: Result Comment: UTO X1 Performed By: #### L 100.0500, L500.4050 #### [facility] [address] [place], [address] CO2 Normal 21.0-32.0 [facility] Comment on above: Order Comment: Result Comment: UTO X1 Performed By: #### L 100.0500, L500.4050 #### [facility] [address] [place], [address] CREAT,SERUM Normal 0.70-1.30 [facility] Comment on above: Order Comment: . Result Comment: UTO X1 Performed By: #### L 100.0500, L500.4050 #### [facility] [address] [place], [address] EST GFR Normal >60 [facility] Comment on above: Order Comment: Result Comment: UTO X1 Performed By: #### L 100.0500, L500.4050 #### [facility] [address] [place], [address] EST GFR - AA Normal >60 [facility] Comment on above: Order Comment: Result Comment: UTO X1 Performed By: #### L 100.0500, L500.4050 #### [facility] [address] [place], [address] GAP Normal 5-15 [facility] Comment on above: Order Comment: Result Comment: UTO X1 Performed By: #### L 100.0500, L500.4050 #### [facility] [address] [place], [address] GLU Normal 74-106 [facility] Comment on above: Order Comment: Result Comment: UTO X1 Performed By: #### L 100.0500, L500.4050 #### [facility] [address] [place], [address] Potassium Normal 3.5-5.1 [facility] Comment on above: Order Comment: Result Comment: UTO X1 Performed By: #### L 100.0500, L500.4050 #### [facility] [address] [place], [address] T BILI Normal 0.20-1.00 [facility] Comment on above: Order Comment: Result Comment: UTO X1 Performed By: #### L 100.0500, L500.4050 #### [facility] [address] [place], [address] T PROT Normal 6.4-8.2 [facility] Comment on above: Order Comment: Result Comment: UTO X1 Performed By: #### L 100.0500, L500.4050 #### [facility] [address] [place], [address] Comprehensive Metabolic Profil Normal 136-145 [facility] Comment on above: Order Comment: Result Comment: UTO X1 Performed By: #### L 100.0500, L500.4050 #### [facility] [address] [place], [address] Hemoglobin A1con 09-02-2024 HbA1c (Bld) [Mass fraction] 8.6 % High 3.8-5.6 [facility] Comment on above: Order Comment: Result Comment: Norm al < 5.7 % Prediabetic 5.7 - 6.4 % Diabetic >or= 6.5 % Please note range changes. Performed By: #### L 501.9985 #### [facility] [address] [place], [address] Urine Cultureon 08-29-2024 URC Enterococcus faecalis [place] Count 80,000-100,000 Enterococcus faecalis: REACTION Ampicillin Islt PAVEL <=2 Ciprofloxacin Islt PAVEL <=0.5 S levoFLOXacin Islt PAVEL 2 S Linezolid Islt PAVEL 2 S Nitrofurantoin Islt PAVEL 32 S Tetracycline Islt PAVEL >=16 R Vancomycin Islt PAVEL 1 S Normal [facility] Comment on above: Performed By: #### L 400.2011, L500.2500, L100.0500, M100.2200 #### [facility] [address] [place], [address] Basic Metabolic Profile (BMP )on 08-27-2024 BUN/CRE 28.1 RATIO High 10-20 [facility] Comment on above: Order Comment: 206.2 Performed By: #### L 400.2010, L500.2500, L100.0500, M100.2200 #### [facility] [address] [place], [address] CA,Total 9.1 mg/dL Normal 8.5-10.1 [facility] Comment on above: Order Comment: 206.2 Performed By: #### L 400, L500.2500, L100.0500, M100.2200 #### [facility] [address] [place], [address] Chloride [Moles/Vol] 104 mmol/L Normal 98-107 [facility] Comment on above: Order Comment: .2 Performed By: #### L 400, L500.2500, L100.0500, M100.2200 #### [facility] [address] [place], [address] CO2 [Moles/Vol] 29.0 mmol/L Normal 21.0-32.0 [facility] Comment on above: Order Comment: .2 Performed By: #### L 400, L500.2500, L100.0500, M100.2200 #### [facility] [address] [place], [address] Creatinine [Mass/Vol] 1.21 mg/dL Normal 0.70-1.30 [facility] Comment on above: Order Comment: 206.2 Result Comment: The validity of the calculated GFR GFRAA in patients over 70 years has not been determined. Clinical correlation is essential. Performed By: #### L 400, L500.2500, L100.0500, M100.2200 #### [facility] [address] [place], [address] EST GFR - AA 73 mL/min Normal >60 [facility] Comment on above: Order Comment: 206.2 Result Comment: Afri can [place] GFR Calc Performed By: #### L 400.2010, L500.2500, L100.0500, M100.2200 #### [facility] [address] [place], [address] GAP 5 Normal 5-15 [facility] Comment on above: Order Comment: . Performed By: #### L 400, L500.2500, L100.0500, M100.2200 #### [facility] [address] [place], [address] GFR/1.73 sq M.predicted among non-blacks MDRD (S/P/Bld) [Vol rate/Area] 60 mL/min/{1.73_m2} Normal >60 [facility] Comment on above: Order Comment: . Result Comment: Non- GFR Calc Performed By: #### L 400, L500.2499, L100.0500, M100.2200 #### [facility] [address] [place], [address] Glucose [Mass/Vol] 181 mg/dL High 74-106 [facility] Comment on above: Order Comment: Result Comment: Fast ing Glucose result greater than or equal to 126 mg/dL suggests DIABETES MELLITUS per A.D.A. criteria. Performed By: #### L 400, L500.2499, L100.0500, M100.2200 #### [facility] [address] [place], [address] Potassium [Moles/Vol] 4.6 mmol/L Normal 3.5-5.1 [facility] Comment on above: Order Comment: . Performed By: #### L 400, L500.2500, L100.0500, M100.2200 #### [facility] [address] [place], [address] Sodium [Moles/Vol] 137 mmol/L Normal 136-145 [facility] Comment on above: Order Comment: 206.2 Performed By: #### L 400.2010, L500.2500, L100.0500, M100.2200 #### [facility] [address] [place], [address] Urea nitrogen [Mass/Vol] 34 mg/dL High 7-18 [facility] Comment on above: Order Comment: 206.2 Performed By: #### L 400, L500.2500, L100.0500, M100.2200 #### [facility] [address] [place], [address] CBC-Complete Blood Cnt No Di ffon 08-27-2024 Erythrocyte distribution width (RBC) [Ratio] 13.2 % Normal 11.6-14.6 [facility] Comment on above: Order Comment: 206.2 Performed By: #### L 400, L500.2500, L100.0500, M100.2200 #### [facility] [address] [place], [address] Hematocrit (Bld) [Volume fraction] 33.9 % Low 40-54 [facility] Comment on above: Order Comment: 206.2 Performed By: #### L 400, L500.2500, L100.0500, M100.2200 #### [facility] [address] [place], [address] Hemoglobin (Bld) [Mass/Vol] 11.0 g/dL Low 13.0-16.5 [facility] Comment on above: Order Comment: 206.2 Performed By: #### L 400, L500.2500, L100.0500, M100.2200 #### [facility] [address] [place], [address] MCH (RBC) [Entitic mass] 29.6 pg Normal 27.0-32.0 [facility] Comment on above: Order Comment: 206.2 Performed By: #### L 400, L500.2500, L100.0500, M100.2200 #### [facility] [address] [place], [address] MCHC (RBC) [Mass/Vol] 32.4 g/dL Normal 32-36 [facility] Comment on above: Order Comment: 206.2 Performed By: #### L 400.2010, L500.2500, L100.0500, M100.2200 #### [facility] [address] [place], [address] MCV (RBC) [Entitic vol] 91.4 fL Normal 80-94 [facility] Comment on above: Order Comment: 206.2 Performed By: #### L 400, L500.2500, L100.0500, M100.2200 #### [facility] [address] [place], [address] Platelet mean volume (Bld) [Entitic vol] 11.2 fL Normal 6.2-12.0 [facility] Comment on above: Order Comment: 206.2 Performed By: #### L 400, L500.2500, L100.0500, M100.2200 #### [facility] [address] [place], [address] Platelets (Bld) [#/Vol] 153 10*3/uL Normal 150-450 [facility] Comment on above: Order Comment: 206.2 Performed By: #### L 400.2010, L500.2500, L100.0500, M100.2200 #### [facility] [address] [place], [address] RBC (Bld) [#/Vol] 3.71 10*6/uL Low 4.6-6.2 [facility] Comment on above: Order Comment: 206.2 Performed By: #### L 400, L500.2500, L100.0500, M100.2200 #### [facility] [address] [place], [address] RDW SD 43.2 fl Normal 35.1-43.9 [facility] Comment on above: Order Comment: 206.2 Performed By: #### L 400.2010, L500.2500, L100.0500, M100.2200 #### [facility] [address] [place], [address] WBC (Bld) [#/Vol] 5.2 10*3/uL Normal 4.4-11.0 [facility] Comment on above: Order Comment: 206.2 Performed By: #### L 400.2010, L500.2500, L100.0500, M100.2200 #### [facility] [address] [place], [address] Urinalysis, Routine (Dipstic k)on 08-27-2024 BILIRUBIN URINE Negative Normal Negative [facility] Comment on above: Order Comment: CLEAN CATCH Performed By: #### L 400.2010, L500.2500, L100.0500, M100.2200 #### [facility] [address] [place], [address] Clarity (U) Sl. Cloudy Normal Clear [facility] Comment on above: Order Comment: CLEAN CATCH Performed By: #### L 400.2010, L500.2500, L100.0500, M100.2200 #### [facility] [address] [place], [address] Color (U) Yellow Normal Yellow [facility] Comment on above: Order Comment: CLEAN CATCH Performed By: #### L 400.2010, L500.2500, L100.0500, M100.2200 #### [facility] [address] [place], [address] GLUCOSE, UR 250 mg/dl Abnormal Normal [facility] Comment on above: Order Comment: CLEAN CATCH Performed By: #### L 400.2010, L500.2500, L100.0500, M100.2200 #### [facility] [address] [place], [address] KETONE UR Negative Normal Negative [facility] Comment on above: Order Comment: CLEAN CATCH Performed By: #### L 400.2010, L500.2500, L100.0500, M100.2200 #### [facility] [address] [place], [address] LEUK ESTERASE 500 /ul Abnormal Negative [facility] Comment on above: Order Comment: CLEAN CATCH Performed By: #### L 400.2010, L500.2500, L100.0500, M100.2200 #### [facility] [address] [place], [address] Nitrite Ql (U) Negative Normal Negative [facility] Comment on above: Order Comment: CLEAN CATCH Performed By: #### L 400.2010, L500.2500, L100.0500, M100.2200 #### [facility] [address] [place], [address] OCCULT BLOOD-UR 250 /ul Abnormal Negative [facility] Comment on above: Order Comment: CLEAN CATCH Performed By: #### L 400.2010, L500.2500, L100.0500, M100.2200 #### [facility] [address] [place], [address] pH UR 7.0 Normal 5.0 - 8.0 [facility] Comment on above: Order Comment: CLEAN CATCH Performed By: #### L 400.2010, L500.2500, L100.0500, M100.2200 #### [facility] [address] [place], [address] PROT DIPSTX 30 mg/dl Abnormal Negative [facility] Comment on above: Order Comment: CLEAN CATCH Performed By: #### L 400.2010, L500.2500, L100.0500, M100.2200 #### [facility] [address] [place], [address] SP.GR. DIPSTX 1.005 Normal 1.002-1.030 [facility] Comment on above: Order Comment: CLEAN CATCH Performed By: #### L 400.2010, L500.2500, L100.0500, M100.2200 #### [facility] [address] [place], [address] UROBILI Normal Normal Normal [facility] Comment on above: Order Comment: CLEAN CATCH Performed By: #### L 400.2010, L500.2500, L100.0500, M100.2200 #### [facility] [address] [place], [address] Basophil percentageOrdered B y: Javy Lynn on 01-24-2024 Hemoglobin (Bld) [Mass/Vol] 11.6 g/dL 13.0-16.5 [facility] WBC (Bld) [#/Vol] 4.1 10*3/uL 4.4-11.0 [facility] Determination of erythrocyte mean corpuscular volume (MCV)Ordered By: Javy Lynn on 01-24-2024 MCV (RBC) [Entitic vol] 91.1 fL 80-94 [facility] Erythrocyte distribution wid th ratioOrdered By: Javy Lynn on 01-24-2024 Erythrocyte distribution width (RBC) [Ratio] 13.0 % 11.6-14.6 [facility] Erythrocyte distribution wid th standard deviationOrdered By: Javy Lynn on 01-24-2024 Erythrocyte distribution width (RBC) [Entitic vol] 43.4 fL 35.1-43.9 [facility] Hematocrit Auto (Bld) [Volum e fraction]Ordered By: Javy Lynn on 01-24-2024 Hematocrit (Bld) [Volume fraction] 36.0 % 40-54 [facility] Laboratory - Hematology and Cell countsOrdered By: Javy Lynn on 01-24-2024 MCH (RBC) [Entitic mass] 29.4 pg 27.0-32.0 [facility] MCHC (RBC) [Mass/Vol] 32.2 g/dL 32-36 [facility] Platelet mean volume (Bld) [Entitic vol] 11.8 fL 6.2-12.0 [facility] Platelets (Bld) [#/Vol] 155 10*3/uL 150-450 [facility] RBC Auto (Bld) [#/Vol]Ordere d By: Javy Lynn on 01-24-2024 RBC (Bld) [#/Vol] 3.95 10*6/uL 4.6-6.2 [facility] Basophil percentageOrdered B y: Javy Lynn on 01-14-2024 Chloride [Moles/Vol] 108 mmol/L 98-107 [facility] Glucose [Mass/Vol] 114 mg/dL 74-106 [facility] Comment on above: Fasting Glucose resu lt from 100 to 125 mg/dL suggests IMPAIRED HOMEOSTASIS per A.D.A. criteria. Hemoglobin (Bld) [Mass/Vol] 12.3 g/dL 13.0-16.5 [facility] Potassium [Moles/Vol] 4.9 mmol/L 3.5-5.1 [facility] Sodium [Moles/Vol] 143 mmol/L 136-145 [facility] WBC (Bld) [#/Vol] 4.9 10*3/uL 4.4-11.0 [facility] Determination of erythrocyte mean corpuscular volume (MCV)Ordered By: Javy Lynn on 01-14-2024 MCV (RBC) [Entitic vol] 93.3 fL 80-94 [facility] Erythrocyte distribution wid th ratioOrdered By: Javy Lynn on 01-14-2024 Erythrocyte distribution width (RBC) [Ratio] 13.3 % 11.6-14.6 [facility] Erythrocyte distribution wid th standard deviationOrdered By: Javy Lynn on 01-14-2024 Erythrocyte distribution width (RBC) [Entitic vol] 45.5 fL 35.1-43.9 [facility] Hematocrit Auto (Bld) [Volum e fraction]Ordered By: Javy Lynn on 01-14-2024 Hematocrit (Bld) [Volume fraction] 39.3 % 40-54 [facility] Laboratory - Chemistry and C hemistry - challengeOrdered By: Javy Lynn on 01-14-2024 CO2 [Moles/Vol] 32.0 mmol/L 21.0-32.0 [facility] Urea nitrogen/Creatinine [Mass ratio] 28.1 mg/mg 10-20 [facility] Laboratory - Hematology and Cell countsOrdered By: Javy Lynn on 01-14-2024 MCH (RBC) [Entitic mass] 29.2 pg 27.0-32.0 [facility] MCHC (RBC) [Mass/Vol] 31.3 g/dL 32-36 [facility] Platelet mean volume (Bld) [Entitic vol] 12.2 fL 6.2-12.0 [facility] Platelets (Bld) [#/Vol] 131 10*3/uL 150-450 [facility] No Panel InformationOrdered By: Javy Lynn on 01-14-2024 Estimated GFR (MDRD) Amer 68 mL/min >60 [facility] Comment on above: GFR Calc Estimated GFR (MDRD) Non-Af Amer 56 mL/min >60 [facility] Comment on above: Non- GFR Calc RBC Auto (Bld) [#/Vol]Ordere d By: Javy Lynn on 01-14-2024 RBC (Bld) [#/Vol] 4.21 10*6/uL 4.6-6.2 [facility] Serum or plasma calcium saud urement (mass/volume)Ordered By: Javy Lynn on 01-14-2024 Calcium [Mass/Vol] 9.8 mg/dL 8.5-10.1 [facility] Serum or plasma creatinine m easurement (mass/volume)Ordered By: Javy Lynn on 01-14-2024 Creatinine [Mass/Vol] 1.28 mg/dL 0.70-1.30 [facility] Comment on above: The validity of the calculated GFR & GFRAA in patients over 70 years has not been determined. Clinical correlation is essential. Serum or plasma urea nitroge n measurement (mass/volume)Ordered By: Javy Lynn on 01-14-2024 Urea nitrogen [Mass/Vol] 36 mg/dL 7-18 [facility] Thin prep Papanicolaou smear with manual screeningOrdered By: Javy Lynn on 01-14-2024 Thin prep Papanicolaou smear with manual screening 3 5-15 [facility] Basophil percentageOrdered B y: Javy Lynn on 12-25-2023 Bilirubin [Mass/Vol] 0.40 mg/dL 0.20-1.00 [facility] Comment on above: For patients on eltr ombopag therapy, use of [employer] [place] TBIL is not recommended. Chloride [Moles/Vol] 107 mmol/L 98-107 [facility] Glucose [Mass/Vol] 132 mg/dL 74-106 [facility] Comment on above: Fasting Glucose resu lt greater than or equal to 126 mg/dL suggests DIABETES MELLITUS per A.D.A. criteria. Hemoglobin (Bld) [Mass/Vol] 13.2 g/dL 13.0-16.5 [facility] Potassium [Moles/Vol] 4.3 mmol/L 3.5-5.1 [facility] Protein [Mass/Vol] 7.4 g/dL 6.4-8.2 [facility] Sodium [Moles/Vol] 139 mmol/L 136-145 [facility] WBC (Bld) [#/Vol] 5.1 10*3/uL 4.4-11.0 [facility] Determination of erythrocyte mean corpuscular volume (MCV)Ordered By: Javy Lynn on 12-25-2023 MCV (RBC) [Entitic vol] 91.5 fL 80-94 [facility] Erythrocyte distribution wid th ratioOrdered By: Javy Lynn on 12-25-2023 Erythrocyte distribution width (RBC) [Ratio] 13.0 % 11.6-14.6 [facility] Erythrocyte distribution wid th standard deviationOrdered By: Javy Lynn on 12-25-2023 Erythrocyte distribution width (RBC) [Entitic vol] 43.4 fL 35.1-43.9 [facility] Hematocrit Auto (Bld) [Volum e fraction]Ordered By: Javy Lynn on 12-25-2023 Hematocrit (Bld) [Volume fraction] 40.9 % 40-54 [facility] Laboratory - Chemistry and C hemistry - challengeOrdered By: Javy Lynn on 12-25-2023 Albumin/Globulin [Mass ratio] 0.9 {ratio} 0.9-2.4 [facility] ALP [Catalytic activity/Vol] 132 U/L 45-117 [facility] ALT [Catalytic activity/Vol] 32 U/L 16-61 [facility] CO2 [Moles/Vol] 28.0 mmol/L 21.0-32.0 [facility] Globulin (S) [Mass/Vol] 3.8 g/dL 2.2-4.2 [facility] Urea nitrogen/Creatinine [Mass ratio] 28.0 mg/mg 10-20 [facility] Laboratory - Hematology and Cell countsOrdered By: Javy Lynn on 12-25-2023 MCH (RBC) [Entitic mass] 29.5 pg 27.0-32.0 [facility] MCHC (RBC) [Mass/Vol] 32.3 g/dL 32-36 [facility] Platelet mean volume (Bld) [Entitic vol] 12.0 fL 6.2-12.0 [facility] Platelets (Bld) [#/Vol] 193 10*3/uL 150-450 [facility] No Panel InformationOrdered By: Javy Lynn on 12-25-2023 Estimated GFR (MDRD) Amer 66 mL/min >60 [facility] Comment on above: GFR Calc Estimated GFR (MDRD) Non-Af Amer 54 mL/min >60 [facility] Comment on above: Non- GFR Calc RBC Auto (Bld) [#/Vol]Ordere d By: Javy Lynn on 12-25-2023 RBC (Bld) [#/Vol] 4.47 10*6/uL 4.6-6.2 [facility] Serum or plasma calcium saud urement (mass/volume)Ordered By: Javy Lynn on 12-25-2023 Calcium [Mass/Vol] 9.7 mg/dL 8.5-10.1 [facility] Serum or plasma creatinine m easurement (mass/volume)Ordered By: Javy Lynn on 12-25-2023 Creatinine [Mass/Vol] 1.32 mg/dL 0.70-1.30 [facility] Comment on above: The validity of the calculated GFR & GFRAA in patients over 70 years has not been determined. Clinical correlation is essential. Serum or plasma urea nitroge n measurement (mass/volume)Ordered By: Javy Lynn on 12-25-2023 Urea nitrogen [Mass/Vol] 37 mg/dL 7-18 [facility] Thin prep Papanicolaou smear with manual screeningOrdered By: Javy Lynn on 12-25-2023 Thin prep Papanicolaou smear with manual screening 3.6 g/dL 3.2-5.0 [facility] Thin prep Papanicolaou smear with manual screening 18 U/L 15-37 [facility] Thin prep Papanicolaou smear with manual screening 4 5-15 [facility] Whole blood hemoglobin A1c/t otal hemoglobin ratio (mass fraction)Ordered By: Javy Lynn on 12-24-2023 HbA1c (Bld) [Mass fraction] 6.6 % 3.8-5.6 [facility] Comment on above: Normal < 5.7 % Predi abetic 5.7 - 6.4 % Diabetic >or= 6.5 % Please note range changes. Basophil percentageOrdered B y: Javy Lynn on 12-19-2023 Bilirubin [Mass/Vol] 0.30 mg/dL 0.20-1.00 [facility] Comment on above: For patients on eltr ombopag therapy, use of [employer] [place] TBIL is not recommended. Chloride [Moles/Vol] 108 mmol/L 98-107 [facility] Glucose [Mass/Vol] 136 mg/dL 74-106 [facility] Comment on above: Fasting Glucose resu lt greater than or equal to 126 mg/dL suggests DIABETES MELLITUS per A.D.A. criteria. Hemoglobin (Bld) [Mass/Vol] 11.9 g/dL 13.0-16.5 [facility] Potassium [Moles/Vol] 4.3 mmol/L 3.5-5.1 [facility] Comment on above: Slight Hemolysis, Re sult may be falsely increased. Protein [Mass/Vol] 6.6 g/dL 6.4-8.2 [facility] Sodium [Moles/Vol] 139 mmol/L 136-145 [facility] WBC (Bld) [#/Vol] 4.4 10*3/uL 4.4-11.0 [facility] Determination of erythrocyte mean corpuscular volume (MCV)Ordered By: Javy Lynn on 12-19-2023 MCV (RBC) [Entitic vol] 91.0 fL 80-94 [facility] Erythrocyte distribution wid th ratioOrdered By: Javy Lynn on 12-19-2023 Erythrocyte distribution width (RBC) [Ratio] 12.6 % 11.6-14.6 [facility] Erythrocyte distribution wid th standard deviationOrdered By: Javy Lynn on 12-19-2023 Erythrocyte distribution width (RBC) [Entitic vol] 41.8 fL 35.1-43.9 [facility] Hematocrit Auto (Bld) [Volum e fraction]Ordered By: Javy Lynn on 12-19-2023 Hematocrit (Bld) [Volume fraction] 37.2 % 40-54 [facility] Laboratory - Chemistry and C hemistry - challengeOrdered By: Javy Lynn on 12-19-2023 Albumin/Globulin [Mass ratio] 0.8 {ratio} 0.9-2.4 [facility] ALP [Catalytic activity/Vol] 109 U/L 45-117 [facility] ALT [Catalytic activity/Vol] 31 U/L 16-61 [facility] CO2 [Moles/Vol] 28.0 mmol/L 21.0-32.0 [facility] Globulin (S) [Mass/Vol] 3.6 g/dL 2.2-4.2 [facility] Urea nitrogen/Creatinine [Mass ratio] 30.2 mg/mg 10-20 [facility] Laboratory - Hematology and Cell countsOrdered By: Javy Lynn on 12-19-2023 MCH (RBC) [Entitic mass] 29.1 pg 27.0-32.0 [facility] MCHC (RBC) [Mass/Vol] 32.0 g/dL 32-36 [facility] Platelet mean volume (Bld) [Entitic vol] 11.1 fL 6.2-12.0 [facility] Platelets (Bld) [#/Vol] 234 10*3/uL 150-450 [facility] No Panel InformationOrdered By: Javy Lynn on 12-19-2023 Estimated GFR (MDRD) Amer 68 mL/min >60 [facility] Comment on above: GFR Calc Estimated GFR (MDRD) Non-Af Amer 56 mL/min >60 [facility] Comment on above: Non- GFR Calc RBC Auto (Bld) [#/Vol]Ordere d By: Javy Lynn on 12-19-2023 RBC (Bld) [#/Vol] 4.09 10*6/uL 4.6-6.2 [facility] Serum or plasma calcium saud urement (mass/volume)Ordered By: Javy Lynn on 12-19-2023 Calcium [Mass/Vol] 9.6 mg/dL 8.5-10.1 [facility] Serum or plasma creatinine m easurement (mass/volume)Ordered By: Javy Lynn on 12-19-2023 Creatinine [Mass/Vol] 1.29 mg/dL 0.70-1.30 [facility] Comment on above: The validity of the calculated GFR & GFRAA in patients over 70 years has not been determined. Clinical correlation is essential. Serum or plasma urea nitroge n measurement (mass/volume)Ordered By: Javy Lynn on 12-19-2023 Urea nitrogen [Mass/Vol] 39 mg/dL 7-18 [facility] Thin prep Papanicolaou smear with manual screeningOrdered By: Javy Lynn on 12-19-2023 Thin prep Papanicolaou smear with manual screening 3.0 g/dL 3.2-5.0 [facility] Thin prep Papanicolaou smear with manual screening 25 U/L 15-37 [facility] Comment on above: Slight Hemolysis, Re sult may be falsely increased. Thin prep Papanicolaou smear with manual screening 3 5-15 [facility] Laboratory - Chemistry and C hemistry - challengeon 12-12-2023 Glucose [Mass/Vol] 174 mg/dL High 70 - 100 mg/dL [facility] Glucose [Mass/Vol] 101 mg/dL High 70 - 100 mg/dL [facility] Laboratory - Microbiology an d Antimicrobial susceptibilityOrdered By: Tatyana Cedillo on 12-12-2023 SARS-CoV-2 (COVID-19) Ag IA.rapid Ql (Resp) Negative Negative [facility] Comment on above: A negative result do es not rule out the possibility of SARS-CoV-2 infection. NAAT-based methods should be considered for symptomatic patients presenting greater than seven days after onset of symptoms. Method: Lateral flow immunoassay. Fact sheets for healthcare providers and patients can be found at the following sites: https://www.[employer].gov/media/399964/download https://www.[employer].gov/media/415266/download No Panel Informationon 12-12 Interpretation and review of laboratory results Abnormal [facility] Performed by: [facility], [address] [place] [address] CLIA ID: [id number] [facility] Interpretation and review of laboratory results Abnormal [facility] Performed by: [facility], [address] [place] [address] CLIA ID: [id number] [facility] Radiology Study observation (narrative) [facility] Radiology Study observation (narrative) [facility] SARS-CoV-2 (COVID-19) Ag IA. rapid Ql (Resp)Ordered By: Tatyana Cedillo on 12-12-2023 Interpretation and review of laboratory results Normal [facility] Bacteria identified Cx Nom ( Bld)on 12-11-2023 Interpretation and review of laboratory results Normal [facility] Blood Collection Site: Left Arm [facility] Blood Collection Site: Left Forearm [facility] CBC panel Auto (Bld)Ordered By: Osman Cadena on 12-11-2023 Erythrocyte distribution width (RBC) [Ratio] 13.7 % 11.5 - 14.5 % [facility] Hematocrit (Bld) [Volume fraction] 36.0 % Low 40.0 - 52.0 % [facility] Hemoglobin (Bld) [Mass/Vol] 12.1 g/dL Low 13.0 - 18.0 g/dL [facility] Interpretation and review of laboratory results Abnormal [facility] MCH (RBC) [Entitic mass] 29.8 pg 26. 0 - 34.0 pg [facility] MCHC (RBC) [Mass/Vol] 33.7 % 32.0 - 36.0 % [facility] MCV (RBC) [Entitic vol] 88.2 fL 80.0 - 98.0 fL [facility] Platelet mean volume (Bld) [Entitic vol] 8.4 fL 7.4 - 12.4 fL [facility] Platelets (Bld) [#/Vol] 204 10*3/uL 140 - 440 10*3/uL [facility] RBC (Bld) [#/Vol] 4.08 10*6/uL Low 4.40 - 5.9 0 10*6/uL [facility] WBC (Bld) [#/Vol] 4.6 10*3/uL 3.6 - 10.7 10*3/uL [facility] Comprehensive metabolic 1998 panelon 12-11-2023 Albumin [Mass/Vol] 3.6 g/dL 3.5 - 5.0 g/dL [facility] ALP [Catalytic activity/Vol] 104 U/L 38 - 126 U/L [facility] ALT [Catalytic activity/Vol] 24 U/L 0 - 49 U/L [facility] Anion gap [Moles/Vol] 9 mmol/L 3 - 13 mmol/L [facility] AST [Catalytic activity/Vol] 27 U/L 15 - 46 U/L [facility] Bilirubin [Mass/Vol] 0.3 mg/dL 0.2 - 1 .3 mg/dL [facility] Calcium [Mass/Vol] 9.5 mg/dL 8.4 - 10. 4 mg/dL [facility] Chloride [Moles/Vol] 105 mmol/L 98 - 10 7 mmol/L [facility] CO2 [Moles/Vol] 23 mmol/L 22 - 30 mmol/L [facility] Creatinine [Mass/Vol] 1.02 mg/dL 0.66 - 1.25 mg/dL [facility] GFR/1.73 sq M.predicted MDRD (S/P/Bld) [Vol rate/Area] 70.7 mL/min/{1.73_m2} - PINF [facility] Comment on above: Calculation based on the Chronic Kidney Disease Epidemiology Collaboration (CKD-EPI) equation refit without adjustment for race Glucose [Mass/Vol] 117 mg/dL High 70 - 100 mg/dL [facility] Interpretation and review of laboratory results Abnormal [facility] Potassium [Moles/Vol] 3.6 mmol/L 3.5 - 5.1 mmol/L [facility] Protein [Mass/Vol] 6.9 g/dL 6.3 - 8.2 g/dL [facility] Sodium [Moles/Vol] 137 mmol/L 135 - 145 mmol/L [facility] Urea nitrogen [Mass/Vol] 18 mg/dL 9 - 20 mg/d L [facility] Laboratory - Chemistry and C hemistry - challengeon 12-11-2023 Glucose [Mass/Vol] 214 mg/dL High 70 - 100 mg/dL [facility] Glucose [Mass/Vol] 123 mg/dL High 70 - 100 mg/dL [facility] Glucose [Mass/Vol] 137 mg/dL High 70 - 100 mg/dL [facility] Glucose [Mass/Vol] 226 mg/dL High 70 - 100 mg/dL [facility] Laboratory - Microbiology an d Antimicrobial susceptibilityon 12-11-2023 Bacteria identified Cx Nom (Bld) No growth at 5 days [facility] No Panel Informationon 12-11 Interpretation and review of laboratory results Abnormal [facility] Performed by: [facility] [facility], [address] [place] [id number] CLIA ID: [id number] [facility] Interpretation and review of laboratory results Abnormal [facility] Performed by: [facility], [address] [place] [id number] CLIA ID: [id number] [facility] Interpretation and review of laboratory results Abnormal [facility] Performed by: [facility] [facility], [address] [place] [id number] CLIA ID: [id number] [facility] Interpretation and review of laboratory results Abnormal [facility] Performed by: [facility] [place] [facility], [address] [place] [address] CLIA ID: [id number] [facility] Radiology Study observation (narrative) [facility] Radiology Study observation (narrative) [facility] Radiology Study observation (narrative) [facility] Radiology Study observation (narrative) [facility] CBC panel Auto (Bld)Ordered By: Davina Ramos on 12-10-2023 Erythrocyte distribution width (RBC) [Ratio] 13.7 % 11.5 - 14.5 % [facility] Hematocrit (Bld) [Volume fraction] 34.7 % Low 40.0 - 52.0 % [facility] Hemoglobin (Bld) [Mass/Vol] 11.8 g/dL Low 13.0 - 18.0 g/dL [facility] Interpretation and review of laboratory results Abnormal [facility] MCH (RBC) [Entitic mass] 30.0 pg 26. 0 - 34.0 pg [facility] MCHC (RBC) [Mass/Vol] 33.9 % 32.0 - 36.0 % [facility] MCV (RBC) [Entitic vol] 88.3 fL 80.0 - 98.0 fL [facility] Platelet mean volume (Bld) [Entitic vol] 8.8 fL 7.4 - 12.4 fL [facility] Platelets (Bld) [#/Vol] 185 10*3/uL 140 - 440 10*3/uL [facility] RBC (Bld) [#/Vol] 3.93 10*6/uL Low 4.40 - 5.9 0 10*6/uL [facility] WBC (Bld) [#/Vol] 4.3 10*3/uL 3.6 - 10.7 10*3/uL [facility] Comprehensive metabolic 1998 panelon 12-10-2023 Albumin [Mass/Vol] 3.5 g/dL 3.5 - 5.0 g/dL [facility] ALP [Catalytic activity/Vol] 93 U/L 38 - 126 U/L [facility] ALT [Catalytic activity/Vol] 24 U/L 0 - 49 U/L [facility] Anion gap [Moles/Vol] 8 mmol/L 3 - 13 mmol/L [facility] AST [Catalytic activity/Vol] 24 U/L 15 - 46 U/L [facility] Bilirubin [Mass/Vol] 0.2 mg/dL 0.2 - 1 .3 mg/dL [facility] Calcium [Mass/Vol] 9.3 mg/dL 8.4 - 10. 4 mg/dL [facility] Chloride [Moles/Vol] 104 mmol/L 98 - 10 7 mmol/L [facility] CO2 [Moles/Vol] 25 mmol/L 22 - 30 mmol/L [facility] Creatinine [Mass/Vol] 0.99 mg/dL 0.66 - 1.25 mg/dL [facility] GFR/1.73 sq M.predicted MDRD (S/P/Bld) [Vol rate/Area] 73.3 mL/min/{1.73_m2} - PINF [facility] Comment on above: Calculation based on the Chronic Kidney Disease Epidemiology Collaboration (CKD-EPI) equation refit without adjustment for race Glucose [Mass/Vol] 124 mg/dL High 70 - 100 mg/dL [facility] Interpretation and review of laboratory results Abnormal [facility] Potassium [Moles/Vol] 3.6 mmol/L 3.5 - 5.1 mmol/L [facility] Protein [Mass/Vol] 6.8 g/dL 6.3 - 8.2 g/dL [facility] Sodium [Moles/Vol] 137 mmol/L 135 - 145 mmol/L [facility] Urea nitrogen [Mass/Vol] 19 mg/dL 9 - 20 mg/d L [facility] Laboratory - Chemistry and C hemistry - challengeon 12-10-2023 Glucose [Mass/Vol] 142 mg/dL High 70 - 100 mg/dL [facility] Glucose [Mass/Vol] 112 mg/dL High 70 - 100 mg/dL [facility] Glucose [Mass/Vol] 223 mg/dL High 70 - 100 mg/dL [facility] Glucose [Mass/Vol] 136 mg/dL High 70 - 100 mg/dL [facility] Glucose [Mass/Vol] 141 mg/dL High 70 - 100 mg/dL [facility] No Panel Informationon 12-10 Interpretation and review of laboratory results Abnormal [facility]: [facility], [address] [place] [id number] CLIA ID: [id number] [facility] Interpretation and review of laboratory results Abnormal [facility]formed by: [facility], [address] [place] [id number] CLIA ID: [id number] [facility] Interpretation and review of laboratory results Abnormal [facility] Performed by: [facility], [address] [place] [id number] CLIA ID: [id number] [facility] Interpretation and review of laboratory results Abnormal [facility] Performed by: [facility], [address] [place] [id number] CLIA ID: [id number] [facility] Interpretation and review of laboratory results Abnormal [facility] Performed by: [facility], [address] [place] [address] [place] [address] CLIA ID: [id number] [facility] Radiology Study observation (narrative) [facility] Radiology Study observation (narrative) [facility] Radiology Study observation (narrative) [facility] Radiology Study observation (narrative) [facility] CBC panel Auto (Bld)on 12-09 Erythrocyte distribution width (RBC) [Ratio] 13.9 % 11.5 - 14.5 % [facility] Hematocrit (Bld) [Volume fraction] 35.3 % Low 40.0 - 52.0 % [facility] Hemoglobin (Bld) [Mass/Vol] 11.8 g/dL Low 13.0 - 18.0 g/dL [facility] Interpretation and review of laboratory results Abnormal [facility] MCH (RBC) [Entitic mass] 29.8 pg 26. 0 - 34.0 pg [facility] MCHC (RBC) [Mass/Vol] 33.4 % 32.0 - 36.0 % [facility] MCV (RBC) [Entitic vol] 89.0 fL 80.0 - 98.0 fL [facility] Platelet mean volume (Bld) [Entitic vol] 8.4 fL 7.4 - 12.4 fL [facility] Platelets (Bld) [#/Vol] 166 10*3/uL 140 - 440 10*3/uL [facility] [facility] RBC (Bld) [#/Vol] 3.97 10*6/uL Low 4.40 - 5.9 0 10*6/uL [facility] WBC (Bld) [#/Vol] 4.3 10*3/uL 3.6 - 10.7 10*3/uL [facility] Comprehensive metabolic 1998 panelon 12-09-2023 Albumin [Mass/Vol] 3.4 g/dL Low 3.5 - 5.0 g/dL [facility] ALP [Catalytic activity/Vol] 90 U/L 38 - 126 U/L [facility] ALT [Catalytic activity/Vol] 22 U/L 0 - 49 U/L [facility] Anion gap [Moles/Vol] 8 mmol/L 3 - 13 mmol/L [facility] AST [Catalytic activity/Vol] 27 U/L 15 - 46 U/L [facility] Bilirubin [Mass/Vol] 0.3 mg/dL 0.2 - 1 .3 mg/dL [facility] Calcium [Mass/Vol] 9.1 mg/dL 8.4 - 10. 4 mg/dL [facility] Chloride [Moles/Vol] 108 mmol/L High 98 - 10 7 mmol/L [facility] CO2 [Moles/Vol] 26 mmol/L 22 - 30 mmol/L [facility] Creatinine [Mass/Vol] 1.01 mg/dL 0.66 - 1.25 mg/dL [facility] GFR/1.73 sq M.predicted MDRD (S/P/Bld) [Vol rate/Area] 71.5 mL/min/{1.73_m2} - PINF [facility] Comment on above: Calculation based on the Chronic Kidney Disease Epidemiology Collaboration (CKD-EPI) equation refit without adjustment for race Glucose [Mass/Vol] 42 mg/dL Critically low 70 - 10 0 mg/dL [facility] Interpretation and review of laboratory results Abnormal [facility] Potassium [Moles/Vol] 3.3 mmol/L Low 3.5 - 5.1 mmol/L [facility] Protein [Mass/Vol] 6.4 g/dL 6.3 - 8.2 g/dL [facility] Sodium [Moles/Vol] 141 mmol/L 135 - 145 mmol/L [facility] Urea nitrogen [Mass/Vol] 22 mg/dL High 9 - 20 mg/d L [facility] - Chemistry and C hemistry - challengeon 12-09-2023 Glucose [Mass/Vol] 137 mg/dL High 70 - 100 mg/dL [facility] Procalcitonin [Mass/Vol] 3.53 ng/mL High 0.0 0 - 0.09 ng/mL [facility] Glucose [Mass/Vol] 111 mg/dL High 70 - 100 mg/dL [facility] Glucose [Mass/Vol] 173 mg/dL High 70 - 100 mg/dL [facility] Glucose [Mass/Vol] 449 mg/dL High 70 - 100 mg/dL [facility] Glucose [Mass/Vol] 101 mg/dL High 70 - 100 mg/dL [facility] Glucose [Mass/Vol] 60 mg/dL Low 70 - 100 mg/dL [facility] Magnesium [Mass/Vol] 1.9 mg/dL 1.6 - 2 .3 mg/dL [facility] Glucose [Mass/Vol] mg/dL Low 70 - 100 mg/dL [facility] Comment on above: Repeated Test; Magnesium [Mass/Vol]on 12-09 Interpretation and review of laboratory results Normal [facility] No Panel Informationon 12-09 Interpretation and review of laboratory results Abnormal [facility] by: [facility], [address], [facility] [address] CLIA ID: [id number] [facility] Interpretation and review of laboratory results Abnormal [facility] Performed by: [facility], [address], [facility] [address] CLIA ID: [id number] [facility] Interpretation and review of laboratory results Abnormal [facility] Performed by: [facility], [address], [facility] [address] CLIA ID: [id number] [facility] Interpretation and review of laboratory results Abnormal [facility] Performed by: [facility], [address], [facility] [address] CLIA ID: [id number] [facility] Interpretation and review of laboratory results Abnormal [facility] Performed by: [facility], [address], [facility] [address] CLIA ID: [id number] [facility] Interpretation and review of laboratory results Abnormal [facility] Performed by: [facility], [address], [facility] [address] CLIA ID: [id number] [facility] Interpretation and review of laboratory results Abnormal [facility] Performed by: [facility], [address], [facility] [address] CLIA ID: [id number] [facility] Rad[facility]narrative[facility] Procalcitonin [Mass/Vol]on 0 12-09-2023 Interpretation and review of laboratory results Abnormal [facility] PCT <0.50 = Low risk of severe sepsis and/or septic shock. PCT >2.00 = High risk of severe sepsis and/or septic shock. [facility] CBC panel Auto (Bld)Ordered By: Waylon Fajardo on 12-08-2023 Erythrocyte distribution width (RBC) [Ratio] 13.9 % 11.5 - 14.5 % [facility] Hematocrit (Bld) [Volume fraction] 35.0 % Low 40.0 - 52.0 % [facility] Hemoglobin (Bld) [Mass/Vol] 11.7 g/dL Low 13.0 - 18.0 g/dL [facility] Interpretation and review of laboratory results Abnormal [facility] MCH (RBC) [Entitic mass] 30.0 pg 26. 0 - 34.0 pg [facility] MCHC (RBC) [Mass/Vol] 33.4 % 32.0 - 36.0 % [facility] MCV (RBC) [Entitic vol] 90.0 fL 80.0 - 98.0 fL [facility] Platelet mean volume (Bld) [Entitic vol] 8.9 fL 7.4 - 12.4 fL [facility] Platelets (Bld) [#/Vol] 146 10*3/uL 140 - 440 10*3/uL [facility] RBC (Bld) [#/Vol] 3.89 10*6/uL Low 4.40 - 5.9 0 10*6/uL [facility] WBC (Bld) [#/Vol] 6.0 10*3/uL 3.6 - 10.7 10*3/uL [facility] Comprehensive metabolic 1998 panelon 12-08-2023 Albumin [Mass/Vol] 3.4 g/dL Low 3.5 - 5.0 g/dL [facility] ALP [Catalytic activity/Vol] 92 U/L 38 - 126 U/L [facility] ALT [Catalytic activity/Vol] 23 U/L 0 - 49 U/L [facility] Anion gap [Moles/Vol] 4 mmol/L 3 - 13 mmol/L [facility] AST [Catalytic activity/Vol] 34 U/L 15 - 46 U/L [facility] Bilirubin [Mass/Vol] 0.6 mg/dL 0.2 - 1 .3 mg/dL [facility] Calcium [Mass/Vol] 9.2 mg/dL 8.4 - 10. 4 mg/dL [facility] Chloride [Moles/Vol] 105 mmol/L 98 - 10 7 mmol/L [facility] CO2 [Moles/Vol] 28 mmol/L 22 - 30 mmol/L [facility] Creatinine [Mass/Vol] 1.29 mg/dL High 0.66 - 1.25 mg/dL [facility] GFR/1.73 sq M.predicted MDRD (S/P/Bld) [Vol rate/Area] 53.3 mL/min/{1.73_m2} Low - PINF [facility] Comment on above: Calculation based on the Chronic Kidney Disease Epidemiology Collaboration (CKD-EPI) equation refit without adjustment for race Glucose [Mass/Vol] 143 mg/dL High 70 - 100 mg/dL [facility] Interpretation and review of laboratory results Abnormal [facility] Potassium [Moles/Vol] 3.9 mmol/L 3.5 - 5.1 mmol/L [facility] Protein [Mass/Vol] 6.5 g/dL 6.3 - 8.2 g/dL [facility] Sodium [Moles/Vol] 138 mmol/L 135 - 145 mmol/L [facility] Urea nitrogen [Mass/Vol] 35 mg/dL High 9 - 20 mg/d L [facility] - Chemistry and C hemistry - challengeon 12-08-2023 Glucose [Mass/Vol] 138 mg/dL High 70 - 100 mg/dL [facility] Glucose [Mass/Vol] 141 mg/dL High 70 - 100 mg/dL [facility] Glucose [Mass/Vol] 222 mg/dL High 70 - 100 mg/dL [facility] Glucose [Mass/Vol] 136 mg/dL High 70 - 100 mg/dL [facility] Glucose [Mass/Vol] 122 mg/dL High 70 - 100 mg/dL [facility] Laboratory - Drug toxicology on 12-08-2023 Vancomycin [Mass/Vol] 11.3 ug/mL Low 15.0 - 20.0 ug/mL [facility] MRSA DNA LISANDRO+probe Ql (Nose) on 12-08-2023 Interpretation and review of laboratory results Normal [facility] mecA gene Not detected Not Detected [facility] th Staphylococcus aureus Not detected Not Detected [facility] No Staphylococcus aureus detected. Negative nasal MRSA PCR has a high negative predictive value for MRSA pneumonia. Consider stopping Vancomycin if no other clinical indication. Contact Antimicrobial Stewardship for further recommendations. Staphylococcus aureus nasal screen by real-time PCR. This test was modified and its performance characteristics determined by [facility]. The U. S. Food and Drug Administration has not approved or cleared this test; however, FDA clearance or approval is not currently required for clinical use. The results are not intended to be used as the sole means for clinical diagnosis or patient management decisions. [facility] No Panel Informationon 12-08 Interpretation and review of laboratory results Abnormal [facility]formed by: [facility], [address], [facility] [address] CLIA ID: [id number] [facility] Interpretation and review of laboratory results Abnormal [facility] Performed by: [facility], [address], [facility] [address] CLIA ID: [id number] [facility] Interpretation and review of laboratory results Abnormal [facility] Performed by: [facility], [address], [facility] [address] CLIA ID: [id number] [facility] Interpretation and review of laboratory results Abnormal [facility] Performed by: [facility], [address], [facility] [address] CLIA ID: [id number] [facility] Interpretation and review of laboratory results Abnormal [facility] Performed by: [facility], [address], [facility] [address] CLIA ID: [id number] [facility] Interpretation and review of laboratory results Abnormal [facility] Radiology Study observation (narrative) [facility] Rad[facility] Study [facility] (narrative) [facility] Rad[facility] Study observation (narrative) [facility] Radiology Study observation (narrative) [facility] Rad[facility] Study observation (narrative) [facility] Laboratory - Chemistry and C hemistry - challengeon 12-07-2023 Glucose [Mass/Vol] 143 mg/dL High 70 - 100 mg/dL [facility] Glucose [Mass/Vol] 93 mg/dL 70 - 100 mg/dL [facility] Procalcitonin [Mass/Vol] 7.13 ng/mL High 0.0 0 - 0.09 ng/mL [facility] Glucose [Mass/Vol] 158 mg/dL High 70 - 100 mg/dL [facility] Glucose [Mass/Vol] 108 mg/dL High 70 - 100 mg/dL [facility] Average glucose Estimated from glycated hemoglobin (Bld) [Mass/Vol] 128 mg/dL [facility] Troponin I.cardiac [Mass/Vol] 0.070 ng/mL High [facility] - 0.034 ng/mL [facility] Laboratory - Hematology and Cell countson 12-07-2023 HbA1c (Bld) [Mass fraction] 6.1 % High [facility] - 5.7 % [facility] Comment on above: Normal less than 5.7 % Prediabetes 5.7% to 6.4% Diabetes 6.5% or higher --HgbA1C levels may not be accurate in patients who have renal disease, received recent blood transfusions, are anemic, or who have dyshemoglobinemia. No Panel Informationon 12-07 Interpretation and review of laboratory results Abnormal [facility] Performed by: [facility], [address] [place] [address] CLIA ID: [id number] [facility] Interpretation and review of laboratory results Normal [facility] Performed by: [facility], [address] [place] [address] CLIA ID: [id number] [facility] Interpretation and review of laboratory results Abnormal [facility] Performed by: [facility], [address] [place] [address] CLIA ID: [id number] [facility] Interpretation and review of laboratory results Abnormal [facility] Performed by: [facility], [address] [place] [address] CLIA ID: [id number] [facility] Sinus rhythm Compared to ECG 09/10/23 Grossly unchanged Electronically Signed On 12-07-2023 06:37:55 EST by Thanh Howard DO - 12/07/2023 IMPRESSION: Sinus rhythm Compared to ECG 09/10/23 Grossly unchanged Electronically Signed On 12-07-2023 06:37:55 EST by Thanh Polanco [facility] Interpretation and review of laboratory results Abnormal [facility] Radiology Study observation (narrative) [facility] Rad[facility] Study observation (narrative) [facility] Radiology Study observation (narrative) [facility] Radiology Study observation (narrative) [facility] No Panel InformationOrdered By: Melissa Bui on 12-07-2023 Interpretation and review of laboratory results Abnormal [facility] Legionella pneumophila Ag Not detected Not Detected [facility] Streptococcus pneumoniae Ag Detected Abnormal Not Detected [facility] Methodology: Lateral flow enzyme immunoassay This assay is approved for detection of antigens to Streptococcus pneumoniae and Legionella pneumophila serogroup 1; however, other L. pneumophila serogroups may also be detected. [facility] No Panel InformationOrdered By: Thanh Polanco on 12-07-2023 P [place] 54 degrees [facility] Work Phone: [phone] FL Interval 169 ms [employer] Work Phone: QRS [place] 60 degrees [employer] Work Phone: QRSD Interval 74 ms [facility] [employer] Work Phone: [phone] QT Interval 334 ms [employer] Work Phone: QTC Interval 420 ms [facility] Work Phone: [phone] T Wave [place] 23 degrees [employer] Work Phone: [employer] Work Phone: Procalcitonin [Mass/Vol]on 0 12-07-2023 Interpretation and review of laboratory results Abnormal [facility] PCT <0.50 = Low risk of severe sepsis and/or septic shock. PCT >2.00 = High risk of severe sepsis and/or septic shock. [facility] Troponin I.cardiac [Mass/Vol ]on 12-07-2023 Interpretation and review of laboratory results Abnormal [facility] Patients with high levels of Biotin oral intake (ie >5 mg/day) may have falsely decreased Troponin levels. [facility] Urinalysis complete panel (U )Ordered By: Corina Hoffman on 12-07-2023 Bacteria LM.HPF (Urine sed) [#/Area] Negative Negative /HPF [facility] Bilirubin Ql (U) Negative Negative mg/dL [facility] Clarity (U) Clear Clear [facility] Color (U) Light Yellow Lt. Yellow [facility] Epithelial cells.squamous LM.HPF (Urine sed) [#/Area] Negative [facility] Glucose Ql (U) Normal Normal (<70) mg/dL [facility] Hemoglobin Ql (U) 0.03 mg/dL Abnormal Negative [facility] Interpretation and review of laboratory results Abnormal [facility] Ketones (U) [Mass/Vol] Negative Negat kate mg/dL [facility] Leukocyte esterase Test strip Ql (U) Negative Negative Rosales/uL [facility] Nitrite Ql (U) Negative Negative [facility] th pH (U) 6.0 [pH] 5.0 - 8.0 pH [facility] Protein (U) [Mass/Vol] 30 mg/dL Abnormal Negative [facility] RBC LM.HPF (Urine sed) [#/Area] 0-2 [facility] Specific gravity (U) [Rel density] 1.025 1.005 - 1.030 [facility] Urobilinogen (U) [Mass/Vol] Normal Normal (0-1) mg/dL [facility] WBC LM.HPF (Urine sed) [#/Area] 0-2 [facility] Vital signsOrdered By: Leticia Polanco on 12-07-2023 Heart rate 95 /min bpm [facility] Work Phone: CBC W Auto Differential pane l (Bld)Ordered By: Brianna Stokes on 12-06-2023 Basophils (Bld) [#/Vol] 0.0 10*3/uL 0.0 - 0.2 10*3/uL [facility] Basophils/100 WBC (Bld) 0.1 % 0.0 - 2.0 % [facility] Eosinophils (Bld) [#/Vol] 0.0 10*3/uL 0.0 - 0.5 10*3/uL [facility] Eosinophils/100 WBC (Bld) 0.1 % Low 1.0 - 6.0 % [facility] Erythrocyte distribution width (RBC) [Ratio] 14.0 % 11.5 - 14.5 % [facility] Hematocrit (Bld) [Volume fraction] 36.4 % Low 40.0 - 52.0 % [facility] Hemoglobin (Bld) [Mass/Vol] 12.6 g/dL Low 13.0 - 18.0 g/dL [facility] Interpretation and review of laboratory results Abnormal [facility] Lymphocytes (Bld) [#/Vol] 0.5 10*3/uL Low 1.0 - 4.3 10*3/uL [facility] Lymphocytes/100 WBC (Bld) 5.8 % Low [...] [#/Vol] 144 10*3/uL 140 - 440 10*3/uL [facility] RBC (Bld) [#/Vol] 4.11 10*6/uL Low 4.40 - 5.9 0 10*6/uL [facility] WBC (Bld) [#/Vol] 8.4 10*3/uL 3.6 - 10.7 10*3/uL [facility] CTA Chest vessels WO and W [...] MD Electronically Signed Date/Time: 12/06/2023 6:26 PM [facility] [employer] Patient Name: TITA KEITH : 1935 Exam Date/Time: 12/06/2023 17:45 Procedure: CT CHEST ANGIOGRAM W AND/OR WO IV CONTRAST Ordering Provider: [facility] Reason For Exam: Pulmonary embolism (PE) suspected, [...] level. Degenerative change scattered in thoracic spine. [facility] Mark Murrell MD - 12/06/2023 Patient Name: TITA KEITH : 1935 [facility]#: [id number] Exam Date/Time: 12/06/2023 17:45 Procedure: CT CHEST ANGIOGRAM W AND/OR WO IV CONTRAST Ordering Provider: [facility] Reason For Exam: Pulmonary embolism (PE) suspected, [...] Electronically Signed Date/Time: 12/06/2023 6:26 PM EST [facility] Radiology Study observation (narrative) [facility] Chest vessels WO and W c ontrast IVOrdered By: Mark Murrell on 12-06-2023 [facility] Work Phone: Comprehensive metabolic 1998 panelon 12-06-2023 Albumin [Mass/Vol] 3.8 g/dL 3.5 - 5.0 g/dL [facility] ALP [Catalytic activity/Vol] 99 U/L 38 - 126 U/L [facility] ALT [Catalytic activity/Vol] 28 U/L 0 - 49 U/L [facility] Anion gap [Moles/Vol] 10 mmol/L 3 - 13 mmol/L [facility] AST [Catalytic activity/Vol] 29 U/L 15 - 46 U/L [facility] Bilirubin [Mass/Vol] 0.7 mg/dL 0.2 - 1 .3 mg/dL [facility] Calcium [Mass/Vol] 9.4 mg/dL 8.4 - 10. 4 mg/dL [facility] Chloride [Moles/Vol] 101 mmol/L 98 - 10 7 mmol/L [facility] CO2 [Moles/Vol] 25 mmol/L 22 - 30 mmol/L [facility] Creatinine [Mass/Vol] 1.35 mg/dL High 0.66 - 1.25 mg/dL [facility] GFR/1.73 sq M.predicted MDRD (S/P/Bld) [Vol rate/Area] 50.5 mL/min/{1.73_m2} Low - PINF [facility] Comment on above: Calculation based on the Chronic Kidney Disease Epidemiology Collaboration (CKD-EPI) equation refit without adjustment for race Glucose [Mass/Vol] 200 mg/dL High 70 - 100 mg/dL [facility] Interpretation and review of laboratory results Abnormal [facility] Potassium [Moles/Vol] 4.5 mmol/L 3.5 - 5.1 mmol/L [facility] Protein [Mass/Vol] 7.1 g/dL 6.3 - 8.2 g/dL [facility] Sodium [Moles/Vol] 136 mmol/L 135 - 145 mmol/L [facility] Urea nitrogen [Mass/Vol] 47 mg/dL High 9 - 20 mg/d L [facility] Laboratory - Chemistry and C hemistry - challengeon 12-06-2023 Troponin I.cardiac [Mass/Vol] 0.080 ng/mL High [facility] - 0.034 ng/mL [facility] Troponin I.cardiac [Mass/Vol] 0.031 ng/mL [facility] - 0.034 ng/mL [facility] Lactate [Moles/Vol] 1.4 mmol/L 0.7 - 2. 0 mmol/L [facility] Laboratory - Microbiology an d Antimicrobial susceptibilityon 12-06-2023 FLUAV RNA LISANDRO+probe Ql (Resp) Not detected Not Detected [facility] FLUBV RNA LISANDRO+probe Ql (Resp) Not detected Not Detected [facility] RSV RNA LISANDRO+probe Ql (Resp) Detected Abnormal Not Detected [facility] SARS-CoV-2 (COVID-19) RNA LISANDRO+probe Ql (Resp) Not detected Not Detected [facility] SARS-CoV-2 (COVID-19) RNA LISANDRO+probe Ql (Unsp spec) Methodology: real-time, RT-PCR The SARS-CoV-2, Flu A/B, and RSV Combo assay is intended for in vitro diagnostic use under the FDA Emergency Use Authorization (EUA). This test has not been FDA cleared or approved. In compliance with this authorization, please visit www.fda.gov/media/ 7680/download or www.fda.gov/media/ 819/download to access the applicable information sheets. [facility] No Panel Informationon 12-06 Interpretation and review of laboratory results Normal [facility] SARS-CoV-2, Flu A/B, and RSV Comboon 12-06-2023 Interpretation and review of laboratory results Abnormal [facility] Troponin I.cardiac [Mass/Vol ]on 12-06-2023 Interpretation and review of laboratory results Abnormal [facility] Patients with high levels of Biotin oral intake (ie >5 mg/day) may have falsely decreased Troponin levels. [facility] Interpretation and review of laboratory results Normal [facility] Patients with high levels of Biotin oral intake (ie >5 mg/day) may have falsely decreased Troponin levels. [facility] XR Chest Single viewon 12-06 No radiographic acute cardiopulmonary process. Report Dictated on Electronically Signed By: Iman Arriaga MD Electronically Signed Date/Time: 12/06/2023 4:36 PM EST [facility] Patient Name: TITA KEITH : 1935 Exam Date/Time: 12/06/2023 16:35 Procedure: XR CHEST 1 VIEW Ordering Provider: [facility] Reason For Exam: pna INDICATION: 88-year-old male; pneumonia. VIEWS: Portable AP upright chest-one image COMPARISON: 09/10/2023 FINDINGS: Cardiac monitoring wires and leads are present. The trachea is midline. The cardiac silhouette is within normal limits. There is no confluent consolidation. [facility] Iman Arriaga MD - 12/06/2023 Patient Name: TITA KEITH : 1935 Exam Date/Time: 12/06/2023 16:35 Procedure: XR CHEST 1 VIEW Ordering Provider: [facility] Reason For Exam: pna INDICATION: 88-year-old male; pneumonia. VIEWS: Portable AP upright chest-one image COMPARISON: 09/10/2023 FINDINGS: Cardiac monitoring wires and leads are present. The trachea is midline. The cardiac silhouette is within normal limits. There is no confluent consolidation. IMPRESSION: No radiographic acute cardiopulmonary process. Report Dictated on Electronically Signed By: Iman Arriaga MD Electronically Signed Date/Time: 12/06/2023 4:36 PM EST [facility] Radiology Study observation (narrative) [facility] XR Chest Single viewOrdered By: Iman Arriaga on 12-06-2023 [facility] Work Phone: Basophil percentageOrdered B y: Javy Lynn on 12-05-2023 Bilirubin [Mass/Vol] 0.50 mg/dL 0.20-1.00 [facility] Comment on above: For patients on eltr ombopag therapy, use of Dimension [place] TBIL is not recommended. Chloride [Moles/Vol] 107 mmol/L 98-107 [facility] Glucose [Mass/Vol] 109 mg/dL 74-106 [facility] Comment on above: Fasting Glucose resu lt from 100 to 125 mg/dL suggests IMPAIRED HOMEOSTASIS per A.D.A. criteria. Hemoglobin (Bld) [Mass/Vol] 12.2 g/dL 13.0-16.5 [facility] Potassium [Moles/Vol] 4.6 mmol/L 3.5-5.1 [facility] Comment on above: Slight Hemolysis, Re sult may be falsely increased. Protein [Mass/Vol] 6.8 g/dL 6.4-8.2 [facility] Sodium [Moles/Vol] 140 mmol/L 136-145 [facility] WBC (Bld) [#/Vol] 7.0 10*3/uL 4.4-11.0 [facility] Determination of erythrocyte mean corpuscular volume (MCV)Ordered By: Javy Lynn on 12-05-2023 MCV (RBC) [Entitic vol] 91.2 fL 80-94 [facility] Erythrocyte distribution wid th ratioOrdered By: Javy Lynn on 12-05-2023 Erythrocyte distribution width (RBC) [Ratio] 13.2 % 11.6-14.6 [facility] Erythrocyte distribution wid th standard deviationOrdered By: Javy Lynn on 12-05-2023 Erythrocyte distribution width (RBC) [Entitic vol] 44.0 fL 35.1-43.9 [facility] Hematocrit Auto (Bld) [Volum e fraction]Ordered By: Javy Lynn on 12-05-2023 Hematocrit (Bld) [Volume fraction] 37.4 % 40-54 [facility] Laboratory - Chemistry and C hemistry - challengeOrdered By: Javy Lynn on 12-05-2023 Albumin/Globulin [Mass ratio] 0.8 {ratio} 0.9-2.4 [facility] ALP [Catalytic activity/Vol] 114 U/L 45-117 [facility] ALT [Catalytic activity/Vol] 32 U/L 16-61 [facility] CO2 [Moles/Vol] 25.0 mmol/L 21.0-32.0 [facility] Globulin (S) [Mass/Vol] 3.7 g/dL 2.2-4.2 [facility] Urea nitrogen/Creatinine [Mass ratio] 33.1 mg/mg 10-20 [facility] Laboratory - Hematology and Cell countsOrdered By: Javy Lynn on 12-05-2023 MCH (RBC) [Entitic mass] 29.8 pg 27.0-32.0 [facility] MCHC (RBC) [Mass/Vol] 32.6 g/dL 32-36 [facility] Platelet mean volume (Bld) [Entitic vol] 11.9 fL 6.2-12.0 [facility] Platelets (Bld) [#/Vol] 138 10*3/uL 150-450 [facility] No Panel InformationOrdered By: Javy Lynn on 12-05-2023 Estimated GFR (MDRD) Amer 73 mL/min >60 [facility] Comment on above: GFR Calc Estimated GFR (MDRD) Non-Af Amer 60 mL/min >60 [facility] Comment on above: Non- GFR Calc RBC Auto (Bld) [#/Vol]Ordere d By: Javy Lynn on 12-05-2023 RBC (Bld) [#/Vol] 4.10 10*6/uL 4.6-6.2 [facility] Serum or plasma calcium saud urement (mass/volume)Ordered By: Javy Lynn on 12-05-2023 Calcium [Mass/Vol] 9.4 mg/dL 8.5-10.1 [facility] Serum or plasma creatinine m easurement (mass/volume)Ordered By: Javy Lynn on 12-05-2023 Creatinine [Mass/Vol] 1.21 mg/dL 0.70-1.30 [facility] Comment on above: The validity of the calculated GFR & GFRAA in patients over 70 years has not been determined. Clinical correlation is essential. Serum or plasma urea nitroge n measurement (mass/volume)Ordered By: Javy Lynn on 12-05-2023 Urea nitrogen [Mass/Vol] 40 mg/dL 7-18 [facility] Thin prep Papanicolaou smear with manual screeningOrdered By: Javy Lynn on 12-05-2023 Thin prep Papanicolaou smear with manual screening 3.1 g/dL 3.2-5.0 [facility] Thin prep Papanicolaou smear with manual screening 26 U/L 15-37 [facility] Comment on above: Slight Hemolysis, Re sult may be falsely increased. Thin prep Papanicolaou smear with manual screening 8 5-15 [facility] Basophil percentageOrdered B y: Javy Lynn on 11-02-2023 Basophil percentage 10-25 SEEN /hpf 0-5 [facility] Bilirubin Test strip Ql (U)O rdered By: Javy Lynn on 11-02-2023 Bilirubin Ql (U) Negative Negative [facility] Culture, urineOrdered By: Manzanares on 11-02-2023 Bacteria identified Cx Nom (U) Enterococcus faecalis [facility] Bacteria identified Cx Nom (U) Corynebacterium striatum [facility] Bacteria identified Cx Nom (U) Staphylococcus simulans [facility] Ketones Test strip Ql (U)Ord ered By: Javy Lynn on 11-02-2023 Ketones Ql (U) Negative Negative [facility] Mucus LM Ql (Urine sed)Order ed By: Javy Lynn on 11-02-2023 Mucus Ql (Urine sed) 0 SEEN /hpf [facility] Nitrite Test strip Ql (U)Ord ered By: Javy Lynn on 11-02-2023 Nitrite Ql (U) Negative Negative [facility] Protein Test strip Ql (U)Ord ered By: Javy Lynn on 11-02-2023 Protein Ql (U) 15 mg/dl Negative [facility] Squamous epithelial cells de tection in urine sediment by light microscopyOrdered By: Javy Lynn on 11-02-2023 Epithelial cells.squamous LM Ql (Urine sed) 0 SEEN /hpf 0-5 [facility] Urine blood detectionOrdered By: Javy Lynn on 11-02-2023 RBC Ql (U) 10 /ul Negative [facility] RBC Ql (U) 0 SEEN /hpf 0-5 [facility] Urine clarityOrdered By: Sunitha Lynn on 11-02-2023 Clarity (U) Clear Clear [facility] Urine color determinationOrd ered By: Javy Lynn on 11-02-2023 Color (U) Yellow Yellow [facility] Urine glucose detectionOrder ed By: Javy Lynn on 11-02-2023 Glucose Ql (U) Normal mg/dl Normal [facility] Urine leukocyte esterase det ection by dipstickOrdered By: Javy Lynn on 11-02-2023 Leukocyte esterase Test strip Ql (U) 100 /ul Negative [facility] Urine pHOrdered By: Javy gordon on 11-02-2023 pH (U) 6.5 [pH] 5.0 - 8.0 [facility] Urine sediment bacteria coun t by microscopy (number/high power field)Ordered By: Javy Lynn on 11-02-2023 Bacteria LM.HPF (Urine sed) [#/Area] 1 /[HPF] None Seen [facility] Urine specific gravity measu rementOrdered By: Javy Lynn on 11-02-2023 Specific gravity (U) [Rel density] 1.015 1.002-1.030 [facility] Urobilinogen Auto test strip Ql (U)Ordered By: Javy Lynn on 11-02-2023 Urobilinogen Ql (U) Normal mg/dl Normal [facility] Whole blood hemoglobin A1c/t otal hemoglobin ratio (mass fraction)Ordered By: Javy Lynn on 10-01-2023 HbA1c (Bld) [Mass fraction] 8.0 % 3.8-5.6 [facility] Comment on above: Normal < 5.7 % Predi abetic 5.7 - 6.4 % Diabetic >or= 6.5 % Please note range changes. Basophil percentageOrdered B y: Javy Lynn on 09-25-2023 Bilirubin [Mass/Vol] 0.50 mg/dL 0.20-1.00 [facility] Comment on above: For patients on eltr ombopag therapy, use of Dimension [place] TBIL is not recommended. Chloride [Moles/Vol] 104 mmol/L 98-107 [facility] Glucose [Mass/Vol] 63 mg/dL 74-106 [facility] Potassium [Moles/Vol] 4.1 mmol/L 3.5-5.1 [facility] Comment on above: Slight Hemolysis, Re sult may be falsely increased. Protein [Mass/Vol] 6.2 g/dL 6.4-8.2 [facility] Sodium [Moles/Vol] 137 mmol/L 136-145 [facility] WBC (Bld) [#/Vol] 4.6 10*3/uL 4.4-11.0 [facility] Blood erythrocytes count (nu mber/volume)Ordered By: Javy Lynn on 09-25-2023 RBC (Bld) [#/Vol] 4.37 10*6/uL 4.6-6.2 [facility] Blood hemoglobin measurement (mass/volume)Ordered By: Javy Lynn on 09-25-2023 Hemoglobin (Bld) [Mass/Vol] 12.7 g/dL 13.0-16.5 [facility] Blood platelet mean volumeOr dered By: Javy Lynn on 09-25-2023 Platelet mean volume (Bld) [Entitic vol] 11.9 fL 6.2-12.0 [facility] Determination of erythrocyte mean corpuscular volume (MCV)Ordered By: Javy Lynn on 09-25-2023 MCV (RBC) [Entitic vol] 91.8 fL 80-94 [facility] Hematocrit Auto (Bld) [Volum e fraction]Ordered By: Javy Lynn on 09-25-2023 Hematocrit (Bld) [Volume fraction] 40.1 % 40-54 [facility] Laboratory - Chemistry and C hemistry - challengeOrdered By: Javy Lynn on 09-25-2023 ALP [Catalytic activity/Vol] 110 U/L 45-117 [facility] ALT [Catalytic activity/Vol] 19 U/L 16-61 [facility] CO2 [Moles/Vol] 29.0 mmol/L 21.0-32.0 [facility] Globulin (S) [Mass/Vol] 3.5 g/dL 2.2-4.2 [facility] Urea nitrogen/Creatinine [Mass ratio] 29.8 mg/mg 10-20 [facility] Laboratory - Hematology and Cell countsOrdered By: Javy Lynn on 09-25-2023 Erythrocyte distribution width (RBC) [Entitic vol] 43.8 fL 35.1-43.9 [facility] Erythrocyte distribution width (RBC) [Ratio] 13.2 % 11.6-14.6 [facility] MCH (RBC) [Entitic mass] 29.1 pg 27.0-32.0 [facility] MCHC Auto (RBC) [Mass/Vol]Or dered By: Javy Lynn on 09-25-2023 MCHC (RBC) [Mass/Vol] 31.7 g/dL 32-36 [facility] No Panel InformationOrdered By: Javy Lynn on 09-25-2023 Estimated GFR (MDRD) Amer 66 mL/min >60 [facility] Comment on above: GFR Calc Estimated GFR (MDRD) Non-Af Amer 55 mL/min >60 [facility] Comment on above: Non- GFR Calc Platelets bldOrdered By: Sunitha Lynn on 09-25-2023 Platelets (Bld) [#/Vol] 225 10*3/uL 150-450 [facility] Serum or plasma albumin saud urement (mass/volume)Ordered By: Javy Lynn on 09-25-2023 Albumin [Mass/Vol] 2.7 g/dL 3.2-5.0 [facility] Serum or plasma albumin/glob ulin mass ratioOrdered By: Javy Lynn on 09-25-2023 Albumin/Globulin [Mass ratio] 0.8 {ratio} 0.9-2.4 [facility] Serum or plasma calcium saud urement (mass/volume)Ordered By: Javy Lynn on 09-25-2023 Calcium [Mass/Vol] 9.2 mg/dL 8.5-10.1 [facility] Serum or plasma creatinine m easurement (mass/volume)Ordered By: Javy Lynn on 09-25-2023 Creatinine [Mass/Vol] 1.31 mg/dL 0.70-1.30 [facility] Comment on above: The validity of the calculated GFR & GFRAA in patients over 70 years has not been determined. Clinical correlation is essential. Serum or plasma urea nitroge n measurement (mass/volume)Ordered By: Javy Lynn on 09-25-2023 Urea nitrogen [Mass/Vol] 39 mg/dL 7-18 [facility] Thin prep Papanicolaou smear with manual screeningOrdered By: Javy Lynn on 09-25-2023 Thin prep Papanicolaou smear with manual screening 16 U/L 15-37 [facility] Comment on above: Slight Hemolysis, Re sult may be falsely increased. Thin prep Papanicolaou smear with manual screening 4 5-15 [facility] Laboratory - Chemistry and C hemistry - challengeon 09-19-2023 Glucose [Mass/Vol] 236 mg/dL High 70 - 100 mg/dL [facility] No Panel Informationon 09-19 Interpretation and review of laboratory results Abnormal [facility] Performed by: [facility], [address] [place] [id number] CLIA ID: [id number] [facility] Laboratory - Chemistry and C hemistry - challengeon 09-18-2023 Glucose [Mass/Vol] 155 mg/dL High 70 - 100 mg/dL [facility] Glucose [Mass/Vol] 169 mg/dL High 70 - 100 mg/dL [facility] Glucose [Mass/Vol] 282 mg/dL High 70 - 100 mg/dL [facility] Glucose [Mass/Vol] 124 mg/dL High 70 - 100 mg/dL [facility] No Panel Informationon 09-18 Interpretation and review of laboratory results Abnormal [facility] Performed by: [facility], [address] [place], [facility] [address] CLIA ID: [id number] [facility] Interpretation and review of laboratory results Abnormal [facility]formed by: [facility], [address] [place], [facility] [address] CLIA ID: [id number] [facility] Interpretation and review of laboratory results Abnormal [facility] Performed by: [facility], [address] [place], [facility] [address] CLIA ID: [id number] [facility] Interpretation and review of laboratory results Abnormal [facility] Performed by: [facility], [address] [place], [facility] [address] CLIA ID: [id number] [facility] Basic metabolic 1998 panelon 09-17-2023 Anion gap [Moles/Vol] 6 mmol/L 3 - 13 mmol/L [facility] Calcium [Mass/Vol] 9.2 mg/dL 8.4 - 10. 4 mg/dL [facility] Chloride [Moles/Vol] 109 mmol/L High 98 - 10 7 mmol/L [facility] CO2 [Moles/Vol] 25 mmol/L 22 - 30 mmol/L [facility] Creatinine [Mass/Vol] 0.95 mg/dL 0.66 - 1.25 mg/dL [facility] GFR/1.73 sq M.predicted MDRD (S/P/Bld) [Vol rate/Area] 77.5 mL/min/{1.73_m2} - PINF [facility] Comment on above: Calculation based on the Chronic Kidney Disease Epidemiology Collaboration (CKD-EPI) equation refit without adjustment for race Glucose [Mass/Vol] 50 mg/dL Low 70 - 100 mg/dL [facility] Interpretation and review of laboratory results Abnormal [facility] Potassium [Moles/Vol] 3.1 mmol/L Low 3.5 - 5.1 mmol/L [facility] Sodium [Moles/Vol] 140 mmol/L 135 - 145 mmol/L [facility] Urea nitrogen [Mass/Vol] 37 mg/dL High 9 - 20 mg/d L [facility] CBC panel Auto (Bld)Ordered By: Davina Ramos on 09-17-2023 Erythrocyte distribution width (RBC) [Ratio] 14.0 % 11.5 - 14.5 % [facility] Hematocrit (Bld) [Volume fraction] 39.5 % Low 40.0 - 52.0 % [facility] Hemoglobin (Bld) [Mass/Vol] 13.7 g/dL 13.0 - 18.0 g/dL [facility] Interpretation and review of laboratory results Abnormal [facility] MCH (RBC) [Entitic mass] 29.9 pg 26. 0 - 34.0 pg [facility] MCHC (RBC) [Mass/Vol] 34.6 % 32.0 - 36.0 % [facility] MCV (RBC) [Entitic vol] 86.4 fL 80.0 - 98.0 fL [facility] Platelet mean volume (Bld) [Entitic vol] 8.9 fL 7.4 - 12.4 fL [facility] Platelets (Bld) [#/Vol] 182 10*3/uL 140 - 440 10*3/uL [facility] RBC (Bld) [#/Vol] 4.57 10*6/uL 4.40 - 5.9 0 10*6/uL [facility] WBC (Bld) [#/Vol] 7.0 10*3/uL 3.6 - 10.7 10*3/uL [facility] Laboratory - Chemistry and C hemistry - challengeon 09-17-2023 Glucose [Mass/Vol] 238 mg/dL High 70 - 100 mg/dL [facility] Glucose [Mass/Vol] 126 mg/dL High 70 - 100 mg/dL [facility] Glucose [Mass/Vol] 257 mg/dL High 70 - 100 mg/dL [facility] Glucose [Mass/Vol] 287 mg/dL High 70 - 100 mg/dL [facility] Glucose [Mass/Vol] 235 mg/dL High 70 - 100 mg/dL [facility] Glucose [Mass/Vol] 82 mg/dL 70 - 100 mg/dL [facility] Glucose [Mass/Vol] 65 mg/dL Low 70 - 100 mg/dL [facility] Glucose [Mass/Vol] 58 mg/dL Low 70 - 100 mg/dL [facility] Average glucose Estimated from glycated hemoglobin (Bld) [Mass/Vol] 174 mg/dL [facility] Laboratory - Hematology and Cell countson 09-17-2023 HbA1c (Bld) [Mass fraction] 7.7 % High NINF - 5.7 % [facility] Comment on above: Normal less than 5.7 % Prediabetes 5.7% to 6.4% Diabetes 6.5% or higher --HgbA1C levels may not be accurate in patients who have renal disease, received recent blood transfusions, are anemic, or who have dyshemoglobinemia. No Panel Informationon 09-17 Interpretation and review of laboratory results Abnormal [facility] Performed by: [facility], [address] [place] [address] CLIA ID: [id number] [facility] Interpretation and review of laboratory results Abnormal [facility] Performed by: [facility], [address] [place] [address] CLIA ID: [id number] [facility] No evidence of deep vein or superficial [...] showed phasic, spontaneous and somewhat pulsatile flow. [employer] A rodriguez scale, color Doppler imaging, [...] Interpretation and review of laboratory results Abnormal [facility] Performed by: [facility], [address] [facility] [address] CLIA ID: [id number] [facility] Interpretation and review of laboratory results Abnormal [facility] Performed by: [facility], [address] [facility], [facility] [address] CLIA ID: [id number] [facility] Interpretation and review of laboratory results Abnormal [facility] Performed by: [facility], [address] [facility], [facility] [address] CLIA ID: [id number] [facility] Interpretation and review of laboratory results Normal [facility] Performed by: [facility], [address] [facility], [facility] [address] CLIA ID: [id number] [facility] Interpretation and review of laboratory results Abnormal [facility] Performed by: [facility], [address] [facility], [facility] [address] CLIA ID: [id number] [facility] Interpretation and review of laboratory results Abnormal [facility] Performed by: [facility], [address] [facility], [facility] [address] CLIA ID: [id number] [facility] Interpretation and review of laboratory results Abnormal [facility] SARS-CoV-2 (COVID-19) RNA pa zabrina LISANDRO+probe (Resp)Ordered By: Katelyn Vail on 09-17-2023 Interpretation and review of laboratory results Abnormal [facility] SARS-CoV-2 (COVID-19) RNA LISANDRO+probe Ql (Resp) Detected Abnormal Not Detected [facility] SARS-CoV-2 (COVID-19) RNA LISANDRO+probe Ql (Unsp spec) Methodology: real-time, RT-PCR The SARS-CoV-2 assay is intended for in vitro diagnostic use under the FDA Emergency Use Authorization (EUA). This test has not been FDA cleared or approved. In compliance with this authorization, please visit www.fda.gov/media/ 0597/download or www.fda.gov/media/14 6679/download to access the applicable information sheets. [facility] Bacteria identified Cx Nom ( Bld)on 09-16-2023 Interpretation and review of laboratory results Normal [facility] Blood Collection Site: Left Arm [facility] Laboratory - Chemistry and C hemistry - challengeon 09-16-2023 Glucose [Mass/Vol] mg/dL High 70 - 100 mg/dL [facility] Comment on above: Caregiver Notified; Glucose [Mass/Vol] 405 mg/dL High 70 - 100 mg/dL [facility] Laboratory - Microbiology an d Antimicrobial susceptibilityon 09-16-2023 Bacteria identified Cx Nom (Bld) No growth at 5 days [facility] No Panel Informationon 09-16 Interpretation and review of laboratory results Abnormal [facility] Performed by: [facility], [address] [facility] [address] CLIA ID: [id number] [facility] Interpretation and review of laboratory results Abnormal [facility] Performed by: [facility], [address] [facility] [address] CLIA ID: [id number] [facility] Laboratory - Chemistry and C hemistry - challengeon 09-15-2023 Glucose [Mass/Vol] 334 mg/dL High 70 - 100 mg/dL [facility] Glucose [Mass/Vol] 320 mg/dL High 70 - 100 mg/dL [facility] No Panel Informationon 09-15 Interpretation and review of laboratory results Abnormal [facility] Performed by: [facility], [address] [facility] [address] CLIA ID: [id number] [facility] Interpretation and review of laboratory results Abnormal [facility] Performed by: [facility], [address] [facility] [address] CLIA ID: [id number] [facility] CBC W Auto Differential pane l (Bld)Ordered By: Pérez Holm on 09-14-2023 Basophils (Bld) [#/Vol] 0.0 10*3/uL 0.0 - 0.2 10*3/uL [facility] Basophils/100 WBC (Bld) 0.1 % 0.0 - 2.0 % [facility] Eosinophils (Bld) [#/Vol] 0.0 10*3/uL 0.0 - 0.5 10*3/uL [facility] Eosinophils/100 WBC (Bld) 0.0 % Low 1.0 - 6.0 % [facility] Erythrocyte distribution width (RBC) [Ratio] 14.2 % 11.5 - 14.5 % [facility] Hematocrit (Bld) [Volume fraction] 41.7 % 40.0 - 52.0 % [facility] Hemoglobin (Bld) [Mass/Vol] 14.1 g/dL 13.0 - 18.0 g/dL [facility] Interpretation and review of laboratory results Abnormal [facility] Lymphocytes (Bld) [#/Vol] 0.6 10*3/uL Low 1.0 - 4.3 10*3/uL [facility] Lymphocytes/100 WBC (Bld) 11.0 % Low 20.0 - 40.0 % [facility] MCH (RBC) [Entitic mass] 29.4 pg 26. 0 - 34.0 pg [facility] MCHC (RBC) [Mass/Vol] 33.7 % 32.0 - 36.0 % [facility] MCV (RBC) [Entitic vol] 87.4 fL 80.0 - 98.0 fL [facility] Monocytes (Bld) [#/Vol] 0.2 10*3/uL 0.0 - 0.8 10*3/uL [facility] Monocytes/100 WBC (Bld) 3.9 % 2.0 - 10.0 % [facility] Neutrophils (Bld) [#/Vol] 4.5 10*3/uL 1.8 - 7.0 10*3/uL [facility] Neutrophils/100 WBC (Bld) 85.0 % High 40.0 - 80.0 % [facility] Nucleated RBC/100 WBC (Bld) [Ratio] 0.1 % [facility] Platelet mean volume (Bld) [Entitic vol] 9.6 fL 7.4 - 12.4 fL [facility] Platelets (Bld) [#/Vol] 133 10*3/uL Low 140 - 440 10*3/uL [facility] RBC (Bld) [#/Vol] 4.77 10*6/uL 4.40 - 5.9 0 10*6/uL [facility] WBC (Bld) [#/Vol] 5.3 10*3/uL 3.6 - 10.7 10*3/uL [facility] CRP [Mass/Vol]on 09-14-2023 Interpretation and review of laboratory results Abnormal [facility] Laboratory - Chemistry and C hemistry - challengeon 09-14-2023 Glucose [Mass/Vol] 263 mg/dL High 70 - 100 mg/dL [facility] Glucose [Mass/Vol] 279 mg/dL High 70 - 100 mg/dL [facility] Glucose [Mass/Vol] 262 mg/dL High 70 - 100 mg/dL [facility] Glucose [Mass/Vol] 238 mg/dL High 70 - 100 mg/dL [facility] CRP [Mass/Vol] 60.0 mg/L High NINF - 10.0 mg/L [facility] No Panel Informationon 09-14 Interpretation and review of laboratory results Abnormal [facility]formed by: [facility], [address] [place] [id number] CLIA ID: [id number] [facility] Interpretation and review of laboratory results Abnormal [facility] Performed by: [facility], [address] [place] [address] CLIA ID: [id number] [facility] Interpretation and review of laboratory results Abnormal [facility] Performed by: [facility], [address] [place] [address] CLIA ID: [id number] [facility] Interpretation and review of laboratory results Abnormal [facility]formed by: [facility], [address] [place] [address] CLIA ID: [id number] [facility] Bacteria identified Aer cx N om (Lower resp)Ordered By: Loy Alcantar on 09-13-2023 Gram Stain Result Many Polymorphonuclear leukocytes per low power field Abnormal [facility] Gram Stain Result Few Epithelial cells per low power field Abnormal [facility] Gram Stain Result Positive Abnormal [facility] Gram Stain Result Negative Abnormal [facility] Interpretation and review of laboratory results Abnormal [facility] Bacteria identified Cx Nom ( Bld)Ordered By: Lexi Pineda on 09-13-2023 Interpretation and review of laboratory results Abnormal [facility] Blood Collection Site: Right Arm [facility] CBC W Auto Differential pane l (Bld)on 09-13-2023 Basophils (Bld) [#/Vol] 0.0 10*3/uL 0.0 - 0.2 10*3/uL [facility] Basophils/100 WBC (Bld) 0.1 % 0.0 - 2.0 % [facility] Eosinophils (Bld) [#/Vol] 0.0 10*3/uL 0.0 - 0.5 10*3/uL [facility] Eosinophils/100 WBC (Bld) 0.0 % Low 1.0 - 6.0 % [facility] Erythrocyte distribution width (RBC) [Ratio] 14.1 % 11.5 - 14.5 % [facility] Hematocrit (Bld) [Volume fraction] 37.1 % Low 40.0 - 52.0 % [facility] Hemoglobin (Bld) [Mass/Vol] 12.5 g/dL Low 13.0 - 18.0 g/dL [facility] Interpretation and review of laboratory results Abnormal [facility] Lymphocytes (Bld) [#/Vol] 0.5 10*3/uL Low 1.0 - 4.3 10*3/uL [facility] Lymphocytes/100 WBC (Bld) 10.6 % Low 20.0 - 40.0 % [facility] MCH (RBC) [Entitic mass] 29.7 pg 26. 0 - 34.0 pg [facility] MCHC (RBC) [Mass/Vol] 33.8 % 32.0 - 36.0 % [facility] MCV (RBC) [Entitic vol] 88.0 fL 80.0 - 98.0 fL [facility] Monocytes (Bld) [#/Vol] 0.1 10*3/uL 0.0 - 0.8 10*3/uL [facility] Monocytes/100 WBC (Bld) 1.9 % Low 2.0 - 10.0 % [facility] Neutrophils (Bld) [#/Vol] 4.1 10*3/uL 1.8 - 7.0 10*3/uL [facility] Neutrophils/100 WBC (Bld) 87.4 % High 40.0 - 80.0 % [facility] Nucleated RBC/100 WBC (Bld) [Ratio] 0.2 % [facility] Platelet mean volume (Bld) [Entitic vol] 10.2 fL 7.4 - 12.4 fL [facility] Platelets (Bld) [#/Vol] 115 10*3/uL Low 140 - 440 10*3/uL [facility] RBC (Bld) [#/Vol] 4.21 10*6/uL Low 4.40 - 5.9 0 10*6/uL [facility] WBC (Bld) [#/Vol] 4.7 10*3/uL 3.6 - 10.7 10*3/uL [facility] CRP [Mass/Vol]on 09-13-2023 Interpretation and review of laboratory results Abnormal [facility] Comprehensive metabolic 1998 panelon 09-13-2023 Albumin [Mass/Vol] 3.3 g/dL Low 3.5 - 5.0 g/dL [facility] ALP [Catalytic activity/Vol] 81 U/L 38 - 126 U/L [facility] ALT [Catalytic activity/Vol] 40 U/L 0 - 49 U/L [facility] Anion gap [Moles/Vol] 6 mmol/L 3 - 13 mmol/L [facility] AST [Catalytic activity/Vol] 45 U/L 15 - 46 U/L [facility] Bilirubin [Mass/Vol] 0.5 mg/dL 0.2 - 1 .3 mg/dL [facility] Calcium [Mass/Vol] 8.7 mg/dL 8.4 - 10. 4 mg/dL [facility] Chloride [Moles/Vol] 106 mmol/L 98 - 10 7 mmol/L [facility] CO2 [Moles/Vol] 25 mmol/L 22 - 30 mmol/L [facility] Creatinine [Mass/Vol] 0.89 mg/dL 0.66 - 1.25 mg/dL [facility] GFR/1.73 sq M.predicted MDRD (S/P/Bld) [Vol rate/Area] 82.9 mL/min/{1.73_m2} - PINF [facility] Comment on above: Calculation based on the Chronic Kidney Disease Epidemiology Collaboration (CKD-EPI) equation refit without adjustment for race Glucose [Mass/Vol] 296 mg/dL High 70 - 100 mg/dL [facility] Interpretation and review of laboratory results Abnormal [facility] Potassium [Moles/Vol] 4.0 mmol/L 3.5 - 5.1 mmol/L [facility] Protein [Mass/Vol] 6.4 g/dL 6.3 - 8.2 g/dL [facility] Sodium [Moles/Vol] 136 mmol/L 135 - 145 mmol/L [facility] Urea nitrogen [Mass/Vol] 39 mg/dL High 9 - 20 mg/d L [facility] Laboratory - Chemistry and C hemistry - challengeon 09-13-2023 Glucose [Mass/Vol] 229 mg/dL High 70 - 100 mg/dL [facility] Glucose [Mass/Vol] 275 mg/dL High 70 - 100 mg/dL [facility] Glucose [Mass/Vol] 291 mg/dL High 70 - 100 mg/dL [facility] Glucose [Mass/Vol] 306 mg/dL High 70 - 100 mg/dL [facility] CRP [Mass/Vol] 80.7 mg/L High NINF - 10.0 mg/L [facility] Laboratory - Microbiology an d Antimicrobial susceptibilityOrdered By: Loy Alcantar on 09-13-2023 Bacteria identified Aer cx Nom (Lower resp) Many respiratory rolando present. [facility] Laboratory - Microbiology an d Antimicrobial susceptibilityOrdered By: Lexi Pineda on 09-13-2023 Bacteria identified Cx Nom (Bld) Staphylococcus epidermidis Critically abnormal [facility] Comment on above: Contamination likely unless additional blood culture sets are found to be positive with the same organism. This is an edited result. Previous organism was Gram-positive cocci on 09/12/2023 at 0502 EST. No Panel Informationon 09-13 Interpretation and review of laboratory results Abnormal [facility] Performed by: [facility], [address] [place] [address] CLIA ID: [id number] [facility] Interpretation and review of laboratory results Abnormal [facility] Performed by: [facility], [address] [place] [address] CLIA ID: [id number] [facility] Interpretation and review of laboratory results Abnormal [facility] Performed by: [facility], [address] [place] [address] CLIA ID: [id number] [facility] Interpretation and review of laboratory results Abnormal [facility] Performed by: [facility], [address] [place] [address] CLIA ID: [id number] [facility] Urinalysis complete panel (U )Ordered By: Brianna Stokes on 09-13-2023 Bacteria LM.HPF (Urine sed) [#/Area] Moderate Abnormal Negative /HPF [facility] Bilirubin Ql (U) Negative Negative mg/dL [facility] Clarity (U) Clear Clear [facility] Color (U) Light Yellow Lt. Yellow [facility] Epithelial cells.squamous LM.HPF (Urine sed) [#/Area] [facility] >1,000 Abnormal Normal (<70) mg/dL [facility] Hemoglobin Ql (U) >1.0 Abnormal Negative mg/dL [facility] Interpretation and review of laboratory results Abnormal [facility] Ketones (U) [Mass/Vol] Negative Negat kate mg/dL [facility] Leukocyte esterase Test strip Ql (U) 25 Abnormal Negative Rosales/uL [facility] Nitrite Ql (U) Negative Negative [facility] th pH (U) 5.5 [pH] 5.0 - 8.0 pH [facility] Protein (U) [Mass/Vol] 30 mg/dL Abnormal Negative [facility] RBC LM.HPF (Urine sed) [#/Area] 51-100 Abnormal [facility] Specific gravity (U) [Rel density] 1.022 1.005 - 1.030 [facility] Urobilinogen (U) [Mass/Vol] Normal Normal (0-1) mg/dL [facility] WBC LM.HPF (Urine sed) [#/Area] 11-25 Abnormal [facility] CBC W Auto Differential pane l (Bld)Ordered By: Osman Cadena on 09-12-2023 Basophils (Bld) [#/Vol] 0.0 10*3/uL 0.0 - 0.2 10*3/uL [facility] Basophils/100 WBC (Bld) 0.3 % 0.0 - 2.0 % [facility] Eosinophils (Bld) [#/Vol] 0.0 10*3/uL 0.0 - 0.5 10*3/uL [facility] Eosinophils/100 WBC (Bld) 0.0 % Low 1.0 - 6.0 % [facility] Erythrocyte distribution width (RBC) [Ratio] 14.4 % 11.5 - 14.5 % [facility] Hematocrit (Bld) [Volume fraction] 34.6 % Low 40.0 - 52.0 % [facility] Hemoglobin (Bld) [Mass/Vol] 11.9 g/dL Low 13.0 - 18.0 g/dL [facility] Interpretation and review of laboratory results Abnormal [facility] Lymphocytes (Bld) [#/Vol] 0.5 10*3/uL Low 1.0 - 4.3 10*3/uL [facility] Lymphocytes/100 WBC (Bld) 11.2 % Low 20.0 - 40.0 % [facility] MCH (RBC) [Entitic mass] 30.1 pg 26. 0 - 34.0 pg [facility] MCHC (RBC) [Mass/Vol] 34.4 % 32.0 - 36.0 % [facility] MCV (RBC) [Entitic vol] 87.6 fL 80.0 - 98.0 fL [facility] Monocytes (Bld) [#/Vol] 0.1 10*3/uL 0.0 - 0.8 10*3/uL [facility] Monocytes/100 WBC (Bld) 2.2 % 2.0 - 10.0 % [facility] Neutrophils (Bld) [#/Vol] 4.2 10*3/uL 1.8 - 7.0 10*3/uL [facility] Neutrophils/100 WBC (Bld) 86.3 % High 40.0 - 80.0 % [facility] Nucleated RBC/100 WBC (Bld) [Ratio] 0.1 % [facility] Platelet mean volume (Bld) [Entitic vol] 9.3 fL 7.4 - 12.4 fL [facility] Platelets (Bld) [#/Vol] 96 10*3/uL Low 140 - 440 10*3/uL [facility] RBC (Bld) [#/Vol] 3.95 10*6/uL Low 4.40 - 5.9 0 10*6/uL [facility] WBC (Bld) [#/Vol] 4.8 10*3/uL 3.6 - 10.7 10*3/uL [facility] CRP [Mass/Vol]on 09-12-2023 Interpretation and review of laboratory results Abnormal [facility] Comprehensive metabolic 1998 panelon 09-12-2023 Albumin [Mass/Vol] 3.3 g/dL Low 3.5 - 5.0 g/dL [facility] ALP [Catalytic activity/Vol] 79 U/L 38 - 126 U/L [facility] ALT [Catalytic activity/Vol] 48 U/L 0 - 49 U/L [facility] Anion gap [Moles/Vol] 5 mmol/L 3 - 13 mmol/L [facility] AST [Catalytic activity/Vol] 70 U/L High 15 - 46 U/L [facility] Bilirubin [Mass/Vol] 0.4 mg/dL 0.2 - 1 .3 mg/dL [facility] Calcium [Mass/Vol] 8.2 mg/dL Low 8.4 - 10. 4 mg/dL [facility] Chloride [Moles/Vol] 107 mmol/L 98 - 10 7 mmol/L [facility] CO2 [Moles/Vol] 23 mmol/L 22 - 30 mmol/L [facility] Creatinine [Mass/Vol] 1.06 mg/dL 0.66 - 1.25 mg/dL [facility] GFR/1.73 sq M.predicted MDRD (S/P/Bld) [Vol rate/Area] 67.9 mL/min/{1.73_m2} - PINF [facility] Comment on above: Calculation based on the Chronic Kidney Disease Epidemiology Collaboration (CKD-EPI) equation refit without adjustment for race Glucose [Mass/Vol] 254 mg/dL High 70 - 100 mg/dL [facility] Interpretation and review of laboratory results Abnormal [facility] Potassium [Moles/Vol] 4.4 mmol/L 3.5 - 5.1 mmol/L [facility] Protein [Mass/Vol] 6.5 g/dL 6.3 - 8.2 g/dL [facility] Sodium [Moles/Vol] 135 mmol/L 135 - 145 mmol/L [facility] Urea nitrogen [Mass/Vol] 45 mg/dL High 9 - 20 mg/d L [facility] Laboratory - Chemistry and C hemistry - challengeon 09-12-2023 Glucose [Mass/Vol] 272 mg/dL High 70 - 100 mg/dL [facility] CRP [Mass/Vol] 193.8 mg/L High NINF - 10.0 mg/L [facility] No Panel Informationon 09-12 Interpretation and review of laboratory results Abnormal [facility] Performed by: [facility], [address] [place] [address] [place] [address] CLIA ID: [id number] [facility] No Panel InformationOrdered By: Earnest De Anda on 09-12-2023 Interpretation and review of laboratory results Abnormal [facility] mecA/C (MRSE/MRSL) Detected Abnormal Not Detected [facility] Staphylococcus epidermidis Detected Abnormal Not Detected [facility] Methodology: Multiplex PCR The [employer] BCID panel can detect the following organisms: [...] IMP, KPC, NDM, OXA-48-like, VIM, and mcr-1. [facility] CBC W Auto Differential pane l (Bld)Ordered By: Tatyana Cedillo on 09-11-2023 Basophils (Bld) [#/Vol] 0.0 10*3/uL 0.0 - 0.2 10*3/uL [facility] Basophils/100 WBC (Bld) 0.2 % 0.0 - 2.0 % [facility] Eosinophils (Bld) [#/Vol] 0.0 10*3/uL 0.0 - 0.5 10*3/uL [facility] Eosinophils/100 WBC (Bld) 0.0 % Low 1.0 - 6.0 % [facility] Erythrocyte distribution width (RBC) [Ratio] 14.5 % 11.5 - 14.5 % [facility] Hematocrit (Bld) [Volume fraction] 36.9 % Low 40.0 - 52.0 % [facility] Hemoglobin (Bld) [Mass/Vol] 12.2 g/dL Low 13.0 - 18.0 g/dL [facility] Interpretation and review of laboratory results Abnormal [facility] Lymphocytes (Bld) [#/Vol] 0.7 10*3/uL Low 1.0 - 4.3 10*3/uL [facility] Lymphocytes/100 WBC (Bld) 10.8 % Low 20.0 - 40.0 % [facility] MCH (RBC) [Entitic mass] 29.7 pg 26. 0 - 34.0 pg [facility] MCHC (RBC) [Mass/Vol] 33.1 % 32.0 - 36.0 % [facility] MCV (RBC) [Entitic vol] 89.7 fL 80.0 - 98.0 fL [facility] Monocytes (Bld) [#/Vol] 0.3 10*3/uL 0.0 - 0.8 10*3/uL [facility] Monocytes/100 WBC (Bld) 4.0 % 2.0 - 10.0 % [facility] Neutrophils (Bld) [#/Vol] 5.5 10*3/uL 1.8 - 7.0 10*3/uL [facility] Neutrophils/100 WBC (Bld) 85.0 % High 40.0 - 80.0 % [facility] Nucleated RBC/100 WBC (Bld) [Ratio] 0.1 % [facility] Platelet mean volume (Bld) [Entitic vol] 9.1 fL 7.4 - 12.4 fL [facility] Platelets (Bld) [#/Vol] 97 10*3/uL Low 140 - 440 10*3/uL [facility] RBC (Bld) [#/Vol] 4.12 10*6/uL Low 4.40 - 5.9 0 10*6/uL [facility] WBC (Bld) [#/Vol] 6.5 10*3/uL 3.6 - 10.7 10*3/uL [facility] CRP [Mass/Vol]on 09-11-2023 Interpretation and review of laboratory results Abnormal [facility] Interpretation and review of laboratory results Abnormal [facility] Comprehensive metabolic 1998 panelon 09-11-2023 Albumin [Mass/Vol] 3.8 g/dL 3.5 - 5.0 g/dL [facility] ALP [Catalytic activity/Vol] 77 U/L 38 - 126 U/L [facility] ALT [Catalytic activity/Vol] 70 U/L High 0 - 49 U/L [facility] Anion gap [Moles/Vol] 10 mmol/L 3 - 13 mmol/L [facility] AST [Catalytic activity/Vol] 41 U/L 15 - 46 U/L [facility] Bilirubin [Mass/Vol] 0.5 mg/dL 0.2 - 1 .3 mg/dL [facility] Calcium [Mass/Vol] 8.8 mg/dL 8.4 - 10. 4 mg/dL [facility] Chloride [Moles/Vol] 106 mmol/L 98 - 10 7 mmol/L [facility] CO2 [Moles/Vol] 23 mmol/L 22 - 30 mmol/L [facility] Creatinine [Mass/Vol] 1.27 mg/dL High 0.66 - 1.25 mg/dL [facility] GFR/1.73 sq M.predicted MDRD (S/P/Bld) [Vol rate/Area] 54.7 mL/min/{1.73_m2} Low - PINF [facility] Comment on above: Calculation based on the Chronic Kidney Disease Epidemiology Collaboration (CKD-EPI) equation refit without adjustment for race Glucose [Mass/Vol] 232 mg/dL High 70 - 100 mg/dL [facility] Interpretation and review of laboratory results Abnormal [facility] Potassium [Moles/Vol] 4.6 mmol/L 3.5 - 5.1 mmol/L [facility] Protein [Mass/Vol] 7.3 g/dL 6.3 - 8.2 g/dL [facility] Sodium [Moles/Vol] 138 mmol/L 135 - 145 mmol/L [facility] Urea nitrogen [Mass/Vol] 42 mg/dL High 9 - 20 mg/d L [facility] Ferritin [Mass/Vol]on 2022 Interpretation and review of laboratory results Normal [facility] LDH Lactate to pyruvate reac tion [Catalytic activity/Vol]on 09-11-2023 Interpretation and review of laboratory results Normal [facility] Laboratory - Chemistry and C hemistry - challengeon 09-11-2023 Glucose [Mass/Vol] 203 mg/dL High 70 - 100 mg/dL [facility] CRP [Mass/Vol] 207.3 mg/L High NINF - 10.0 mg/L [facility] LDH Lactate to pyruvate reaction [Catalytic activity/Vol] 182 U/L 120 - 246 U/L [facility] Ferritin [Mass/Vol] 238 ng/mL 18 - 464 ng/mL [facility] CRP [Mass/Vol] 221.0 mg/L High NINF - 10.0 mg/L [facility] Glucose [Mass/Vol] 190 mg/dL High 70 - 100 mg/dL [facility] No Panel Informationon 09-11 Interpretation and review of laboratory results Abnormal [facility]formed by: [facility], [address] [facility] [address] CLIA ID: [id number] [facility] Interpretation and review of laboratory results Abnormal [facility] Performed by: [facility] [address] [facility] [address] CLIA ID: [id number] [facility] Basic metabolic 1998 panelon 09-10-2023 Anion gap [Moles/Vol] 8 mmol/L 3 - 13 mmol/L [facility] Calcium [Mass/Vol] 8.4 mg/dL 8.4 - 10. 4 mg/dL [facility] Chloride [Moles/Vol] 102 mmol/L 98 - 10 7 mmol/L [facility] CO2 [Moles/Vol] 23 mmol/L 22 - 30 mmol/L [facility] Creatinine [Mass/Vol] 1.63 mg/dL High 0.66 - 1.25 mg/dL [facility] GFR/1.73 sq M.predicted MDRD (S/P/Bld) [Vol rate/Area] 40.5 mL/min/{1.73_m2} Low - PINF [facility] Comment on above: Calculation based on the Chronic Kidney Disease Epidemiology Collaboration (CKD-EPI) equation refit without adjustment for race Glucose [Mass/Vol] 289 mg/dL High 70 - 100 mg/dL [facility] Interpretation and review of laboratory results Abnormal [facility] Potassium [Moles/Vol] 4.2 mmol/L 3.5 - 5.1 mmol/L [facility] Sodium [Moles/Vol] 134 mmol/L Low 135 - 145 mmol/L [facility] Urea nitrogen [Mass/Vol] 50 mg/dL High 9 - 20 mg/d L [facility] CBC W Auto Differential pane l (Bld)Ordered By: Wilmar Salazar on 09-10-2023 Basophils (Bld) [#/Vol] 0.0 10*3/uL 0.0 - 0.2 10*3/uL [facility] Basophils/100 WBC (Bld) 0.2 % 0.0 - 2.0 % [facility] Eosinophils (Bld) [#/Vol] 0.0 10*3/uL 0.0 - 0.5 10*3/uL [facility] Eosinophils/100 WBC (Bld) 0.0 % Low 1.0 - 6.0 % [facility] Erythrocyte distribution width (RBC) [Ratio] 14.1 % 11.5 - 14.5 % [facility] Hematocrit (Bld) [Volume fraction] 36.7 % Low 40.0 - 52.0 % [facility] Hemoglobin (Bld) [Mass/Vol] 12.3 g/dL Low 13.0 - 18.0 g/dL [facility] Interpretation and review of laboratory results Abnormal [facility] Lymphocytes (Bld) [#/Vol] 0.5 10*3/uL Low 1.0 - 4.3 10*3/uL [facility] Lymphocytes/100 WBC (Bld) 13.3 % Low 20.0 - 40.0 % [facility] MCH (RBC) [Entitic mass] 29.9 pg 26. 0 - 34.0 pg [facility] MCHC (RBC) [Mass/Vol] 33.5 % 32.0 - 36.0 % [facility] MCV (RBC) [Entitic vol] 89.3 fL 80.0 - 98.0 fL [facility] Monocytes (Bld) [#/Vol] 0.1 10*3/uL 0.0 - 0.8 10*3/uL [facility] Monocytes/100 WBC (Bld) 3.5 % 2.0 - 10.0 % [facility] Neutrophils (Bld) [#/Vol] 2.9 10*3/uL 1.8 - 7.0 10*3/uL [facility] Neutrophils/100 WBC (Bld) 83.0 % High 40.0 - 80.0 % [facility] Nucleated RBC/100 WBC (Bld) [Ratio] 0.2 % [facility] Platelet mean volume (Bld) [Entitic vol] 9.2 fL 7.4 - 12.4 fL [facility] Platelets (Bld) [#/Vol] 99 10*3/uL Low 140 - 440 10*3/uL [facility] RBC (Bld) [#/Vol] 4.11 10*6/uL Low 4.40 - 5.9 0 10*6/uL [facility] WBC (Bld) [#/Vol] 3.5 10*3/uL Low 3.6 - 10.7 10*3/uL [facility] Laboratory - Chemistry and C hemistry - challengeon 09-10-2023 Lactate [Moles/Vol] 2.0 mmol/L 0.7 - 2. 0 mmol/L [facility] Laboratory - Microbiology an d Antimicrobial susceptibilityon 09-10-2023 FLUAV RNA LISANDRO+probe Ql (Resp) Not detected Not Detected [facility] FLUBV RNA LISANDRO+probe Ql (Resp) Not detected Not Detected [facility] RSV RNA LISANDRO+probe Ql (Resp) Not detected Not Detected [facility] SARS-CoV-2 (COVID-19) RNA LISANDRO+probe Ql (Resp) Detected Abnormal Not Detected [facility] SARS-CoV-2 (COVID-19) RNA LISANDRO+probe Ql (Unsp spec) Methodology: real-time, RT-PCR The SARS-CoV-2, Flu A/B, and RSV Combo assay is intended for in vitro diagnostic use under the FDA Emergency Use Authorization (EUA). This test has not been FDA cleared or approved. In compliance with this authorization, please visit www.fda.gov/media/03 9819/download or www.fda.gov/media/50 3046/download to access the applicable information sheets. [facility] Myla No Panel InformationOrdered By: Jayden Briseno on 09-10-2023 P Phoenix 62 degrees [employer] Myla Work Phone: FL Interval 158 ms [employer]yla Work Phone: QRS [place] 60 degrees [employer] Myla Work Phone: QRSD Interval 83 ms [facility] [employer] Work Phone: QT Interval 333 ms [employer] Myla Work Phone: QTC Interval 420 ms [facility]yla Work Phone: T Wave [place] 35 degrees [facility] Work Phone: [employer] Work Phone: No Panel Informationon 09-10 Sinus [...] On 09-10-2023 22:12:38 EST by Jayden Briseno [facility] Interpretation and review of laboratory results Normal [facility] SARS-CoV-2, Flu A/B, and RSV Comboon 09-10-2023 Interpretation and review of laboratory results Abnormal [facility] Vital signsOrdered By: David Briseno on 09-10-2023 Heart rate 95 /min bpm [facility] Myla Work Phone: XR Chest Single viewon 09-10 No acute process. Report Dictated on Electronically Signed By: Tal Patterson DO Electronically Signed Date/Time: 09/10/2023 12:29 PM EST [facility] 1935 [id number] Exam Date/Time: 09/10/2023 12:21 Procedure: XR CHEST [...] pleural thickening. The osseous structures are unremarkable. [facility] Tal Patterson DO - 09/10/2023 Patient Name: TITA KEITH : 1935 [facility] [id number] Exam Date/Time: 09/10/2023 12:21 Procedure: XR CHEST [...] Electronically Signed Date/Time: 09/10/2023 12:29 PM EST [facility] Radiology Study observation (narrative) [facility] XR Chest Single viewOrdered By: Tal Patterson on 09-10-2023 [facility] Myla Work Phone: Laboratory - Chemistry and C hemistry - challengeon 01-26-2023 Glucose [Mass/Vol] 84 mg/dL 70 - 100 mg/dL [facility] No Panel Informationon 01-26 Interpretation and review of laboratory results Normal [facility] Performed by: [facility], [address] [place] [address] CLIA ID: [id number] [facility] Laboratory - Chemistry and C hemistry - challengeon 01-25-2023 Glucose [Mass/Vol] 167 mg/dL High 70 - 100 mg/dL [facility] Glucose [Mass/Vol] 137 mg/dL High 70 - 100 mg/dL [facility] Glucose [Mass/Vol] 167 mg/dL High 70 - 100 mg/dL [facility] Glucose [Mass/Vol] 163 mg/dL High 70 - 100 mg/dL [facility] Glucose [Mass/Vol] 70 mg/dL 70 - 100 mg/dL [facility] No Panel Informationon 01-25 Interpretation and review of laboratory results Abnormal [facility] Performed by: [facility], [address] [facility] [address] CLIA ID: [id number] [facility] Interpretation and review of laboratory results Abnormal [facility] Performed by: [facility], [address] [facility], [facility] [address] CLIA ID: [id number] [facility] Interpretation and review of laboratory results Abnormal [facility] Performed by: [facility], [address] [place], [facility] [address] CLIA ID: [id number] [facility] Interpretation and review of laboratory results Abnormal [facility] Performed by: [facility], [address] [facility], [facility] [address] CLIA ID: [id number] [facility] Interpretation and review of laboratory results Normal [facility] Performed by: [facility], [address] [facility], [facility] [address] CLIA ID: [id number] [facility] Laboratory - Chemistry and C hemistry - challengeon 01-24-2023 Glucose [Mass/Vol] 203 mg/dL High 70 - 100 mg/dL [facility] Glucose [Mass/Vol] 129 mg/dL High 70 - 100 mg/dL [facility] Glucose [Mass/Vol] 248 mg/dL High 70 - 100 mg/dL [facility] Glucose [Mass/Vol] 120 mg/dL High 70 - 100 mg/dL [facility] Laboratory - Microbiology an d Antimicrobial susceptibilityOrdered By: Chelsey Muro on 01-24-2023 SARS-CoV-2 (COVID-19) Ag IA.rapid Ql (Resp) Negative Negative [facility] Comment on above: A negative result do es not rule out the possibility of SARS-CoV-2 infection. NAAT-based methods should be considered for symptomatic patients presenting greater than seven days after onset of symptoms. Method: Lateral flow immunoassay. Fact sheets for healthcare providers and patients can be found at the following sites: https://www.fda.gov/media/659377/download https://www.fda.gov/media/869497/download No Panel Informationon 01-24 Interpretation and review of laboratory results Abnormal [facility] Performed by: [facility], [address] [place], [facility] [address] CLIA ID: [id number] [facility] Interpretation and review of laboratory results Abnormal [facility] Performed by: [facility], [address] [facility] [address] CLIA ID: [id number] [facility] Interpretation and review of laboratory results Abnormal [facility] Performed by: [facility], [address] [facility] [address] CLIA ID: [id number] [facility] Interpretation and review of laboratory results Abnormal [facility] Performed by: [facility], [address] [facility] [address] CLIA ID: [id number] [facility] SARS-CoV-2 (COVID-19) Ag IA. rapid Ql (Resp)Ordered By: Chelsey Muro on 01-24-2023 Interpretation and review of laboratory results Normal [facility] SARS-CoV-2 (COVID-19) RNA pa zabrina LISANDRO+probe (Resp)on 01-24-2023 Interpretation and review of laboratory results Normal [facility] SARS-CoV-2 (COVID-19) RNA LISANDRO+probe Ql (Resp) Not detected Not Detected [facility] SARS-CoV-2 (COVID-19) RNA LISANDRO+probe Ql (Unsp spec) Methodology: real-time, RT-PCR The SARS-CoV-2 assay is intended for in vitro diagnostic use under the FDA Emergency Use Authorization (EUA). This test has not been FDA cleared or approved. In compliance with this authorization, please visit www.fda.gov/media/ 1752/download or www.fda.gov/media/ 8405/download to access the applicable information sheets. [facility] Laboratory - Chemistry and C hemistry - challengeon 01-23-2023 Glucose [Mass/Vol] 288 mg/dL High 70 - 100 mg/dL [facility] Glucose [Mass/Vol] 122 mg/dL High 70 - 100 mg/dL [facility] Glucose [Mass/Vol] 230 mg/dL High 70 - 100 mg/dL [facility] Glucose [Mass/Vol] 168 mg/dL High 70 - 100 mg/dL [facility] No Panel Informationon 01-23 Interpretation and review of laboratory results Abnormal [facility] Performed by: [facility], [address] [facility] [address] CLIA ID: [id number] [facility] Interpretation and review of laboratory results Abnormal [facility] Performed by: [facility], [address] [facility], [facility] [address] CLIA ID: [id number] [facility] Interpretation and review of laboratory results Abnormal [facility] Performed by: [facility], [address] [facility], [facility] [address] CLIA ID: [id number] [facility] Interpretation and review of laboratory results Abnormal [facility] Performed by: [facility], [address] [place] [address], [facility] [address] CLIA ID: [id number] [facility] Laboratory - Chemistry and C hemistry - challengeon 01-22-2023 Glucose [Mass/Vol] 307 mg/dL High 70 - 100 mg/dL [facility] Glucose [Mass/Vol] 109 mg/dL High 70 - 100 mg/dL [facility] Glucose [Mass/Vol] 160 mg/dL High 70 - 100 mg/dL [facility] Glucose [Mass/Vol] 93 mg/dL 70 - 100 mg/dL [facility] Glucose [Mass/Vol] 83 mg/dL 70 - 100 mg/dL [facility] No Panel Informationon 01-22 Interpretation and review of laboratory results Abnormal [facility] Performed by: [facility], [address] [place] [address] CLIA ID: [id number] [facility] Interpretation and review of laboratory results Abnormal [facility] Performed by: [facility], [address] [place] [address], [facility] [address] CLIA ID: [id number] [facility] Interpretation and review of laboratory results Abnormal [facility] Performed by: [facility], [address] [place] [address], [facility] [address] CLIA ID: [id number] [facility] Interpretation and review of laboratory results Normal [facility] Performed by: [facility], [address] [place] [address] CLIA ID: [id number] [facility] Interpretation and review of laboratory results Normal [facility] Performed by: [facility], [address] [place] [address] CLIA ID: [id number] [facility] RF videography Hypopharynx a nd Esophagus Views for swallowing function W speech and W barium contrast Viji 01-22-2023 1. Penetration and geovanny aspiration during the study. Please refer to the speech pathologist's report for additional details and recommendations. Report Dictated on Electronically Signed By: Christiano Stacy Electronically Signed Date/Time: 01/22/2023 10:44 AM EDT [facility] Patient Name: TITA KEITH : [...] pooling in the vallecula was also aspirated. [facility] Christiano Stacy MD - 01/22/2023 Patient Name: [...] Electronically Signed Date/Time: 01/22/2023 10:44 AM EDT [facility] Radiology Study observation (narrative) [facility] videography Hypopharynx a nd Esophagus Views for swallowing function W speech and W barium contrast POOrdered By: Christiano Stacy on 01-22-2023 [facility] Work Phone: Laboratory - Chemistry and C hemistry - challengeon 01-21-2023 Glucose [Mass/Vol] 66 mg/dL Low 70 - 100 mg/dL [facility] Glucose [Mass/Vol] 256 mg/dL High 70 - 100 mg/dL [facility] Glucose [Mass/Vol] 126 mg/dL High 70 - 100 mg/dL [facility] Glucose [Mass/Vol] 158 mg/dL High 70 - 100 mg/dL [facility] Glucose [Mass/Vol] 59 mg/dL Low 70 - 100 mg/dL [facility] Glucose [Mass/Vol] 52 mg/dL Low 70 - 100 mg/dL [facility] No Panel Informationon 01-21 Interpretation and review of laboratory results Abnormal [facility] Performed by: [facility], [address] [place] [address] CLIA ID: [id number] [facility] Interpretation and review of laboratory results Abnormal [facility] Performed by: [facility], [address] [place] [address] CLIA ID: [id number] [facility] Interpretation and review of laboratory results Abnormal [facility] Performed by: [facility] Melania [facility], [address] [place] [address] CLIA ID: [id number] [facility] Interpretation and review of laboratory results Abnormal [facility] Performed by: [facility], [address] [place], [facility] [address] CLIA ID: [id number] [facility] Interpretation and review of laboratory results Abnormal [facility] Performed by: [facility], [address] [place], [facility] [address] CLIA ID: [id number] [facility] Interpretation and review of laboratory results Abnormal [facility] Performed by: [facility], [address] [place], [facility] [address] CLIA ID: [id number] [facility] Basic metabolic 1998 panelon 01-20-2023 Anion gap [Moles/Vol] 5 mmol/L 3 - 13 mmol/L [facility] Calcium [Mass/Vol] 8.7 mg/dL 8.4 - 10. 4 mg/dL [facility] Chloride [Moles/Vol] 106 mmol/L 98 - 10 7 mmol/L [facility] CO2 [Moles/Vol] 26 mmol/L 22 - 30 mmol/L [facility] Creatinine [Mass/Vol] 1.02 mg/dL 0.66 - 1.25 mg/dL [facility] GFR/1.73 sq M.predicted MDRD (S/P/Bld) [Vol rate/Area] 71.1 mL/min/{1.73_m2} - PINF [facility] Comment on above: Calculation based on the Chronic Kidney Disease Epidemiology Collaboration (CKD-EPI) equation refit without adjustment for race Glucose [Mass/Vol] 75 mg/dL 70 - 100 mg/dL [facility] Interpretation and review of laboratory results Abnormal [facility] Potassium [Moles/Vol] 3.7 mmol/L 3.5 - 5.1 mmol/L [facility] Sodium [Moles/Vol] 137 mmol/L 135 - 145 mmol/L [facility] Urea nitrogen [Mass/Vol] 23 mg/dL High 9 - 20 mg/d L [facility] CBC W Auto Differential pane l (Bld)Ordered By: Davina Ramos on 01-20-2023 Basophils (Bld) [#/Vol] 0.0 10*3/uL 0.0 - 0.2 10*3/uL [facility] Basophils/100 WBC (Bld) 0.5 % 0.0 - 2.0 % [facility] Eosinophils (Bld) [#/Vol] 0.1 10*3/uL 0.0 - 0.5 10*3/uL [facility] Eosinophils/100 WBC (Bld) 0.6 % Low 1.0 - 6.0 % [facility] Erythrocyte distribution width (RBC) [Ratio] 12.9 % 11.5 - 14.5 % [facility] Hematocrit (Bld) [Volume fraction] 35.0 % Low 40.0 - 52.0 % [facility] Hemoglobin (Bld) [Mass/Vol] 12.0 g/dL Low 13.0 - 18.0 g/dL [facility] Interpretation and review of laboratory results Abnormal [facility] Lymphocytes (Bld) [#/Vol] 0.8 10*3/uL Low 1.0 - 4.3 10*3/uL [facility] Lymphocytes/100 WBC (Bld) 8.9 % Low 20.0 - 40.0 % [facility] MCH (RBC) [Entitic mass] 30.1 pg 26. 0 - 34.0 pg [facility] MCHC (RBC) [Mass/Vol] 34.1 % 32.0 - 36.0 % [facility] MCV (RBC) [Entitic vol] 88.3 fL 80.0 - 98.0 fL [facility] Monocytes (Bld) [#/Vol] 0.6 10*3/uL 0.0 - 0.8 10*3/uL [facility] Monocytes/100 WBC (Bld) 6.5 % 2.0 - 10.0 % [facility] Neutrophils (Bld) [#/Vol] 7.9 10*3/uL High 1.8 - 7.0 10*3/uL [facility] Neutrophils/100 WBC (Bld) 83.5 % High 40.0 - 80.0 % [facility] Nucleated RBC/100 WBC (Bld) [Ratio] 0.0 % [facility] Platelet mean volume (Bld) [Entitic vol] 9.1 fL 7.4 - 12.4 fL [facility] Platelets (Bld) [#/Vol] 366 10*3/uL 140 - 440 10*3/uL [facility] RBC (Bld) [#/Vol] 3.97 10*6/uL Low 4.40 - 5.9 0 10*6/uL [facility] WBC (Bld) [#/Vol] 9.4 10*3/uL 3.6 - 10.7 10*3/uL [facility] Laboratory - Chemistry and C hemistry - challengeon 01-20-2023 Glucose [Mass/Vol] 218 mg/dL High 70 - 100 mg/dL [facility] Glucose [Mass/Vol] 120 mg/dL High 70 - 100 mg/dL [facility] Glucose [Mass/Vol] 126 mg/dL High 70 - 100 mg/dL [facility] Glucose [Mass/Vol] 70 mg/dL 70 - 100 mg/dL [facility] No Panel Informationon 01-20 Interpretation and review of laboratory results Abnormal [facility] Performed by: [facility], [address] [place] [address] CLIA ID: [id number] [facility] Interpretation and review of laboratory results Abnormal [facility] Performed by: [facility], [address] [place] [address] CLIA ID: [id number] [facility] Interpretation and review of laboratory results Abnormal [facility] Performed by: [facility], [address] [place] [address] CLIA ID: [id number] [facility] Interpretation and review of laboratory results Normal [facility] Performed by: [facility], [address] [place] [address] CLIA ID: [id number] [facility] Basic metabolic 1998 panelon 01-19-2023 Anion gap [Moles/Vol] 3 mmol/L 3 - 13 mmol/L [facility] Calcium [Mass/Vol] 8.8 mg/dL 8.4 - 10. 4 mg/dL [facility] Chloride [Moles/Vol] 111 mmol/L High 98 - 10 7 mmol/L [facility] CO2 [Moles/Vol] 29 mmol/L 22 - 30 mmol/L [facility] Creatinine [Mass/Vol] 1.19 mg/dL 0.66 - 1.25 mg/dL [facility] GFR/1.73 sq M.predicted MDRD (S/P/Bld) [Vol rate/Area] 59.1 mL/min/{1.73_m2} Low - PINF [facility] Comment on above: Calculation based on the Chronic Kidney Disease Epidemiology Collaboration (CKD-EPI) equation refit without adjustment for race Glucose [Mass/Vol] 65 mg/dL Low 70 - 100 mg/dL [facility] Interpretation and review of laboratory results Abnormal [facility] Potassium [Moles/Vol] 3.9 mmol/L 3.5 - 5.1 mmol/L [facility] Sodium [Moles/Vol] 144 mmol/L 135 - 145 mmol/L [facility] Urea nitrogen [Mass/Vol] 34 mg/dL High 9 - 20 mg/d L [facility] CBC W Auto Differential pane l (Bld)on 01-19-2023 Basophils (Bld) [#/Vol] 0.0 10*3/uL 0.0 - 0.2 10*3/uL [facility] Basophils/100 WBC (Bld) 0.4 % 0.0 - 2.0 % [facility] Eosinophils (Bld) [#/Vol] 0.1 10*3/uL 0.0 - 0.5 10*3/uL [facility] Eosinophils/100 WBC (Bld) 1.0 % 1.0 - 6.0 % [facility] Erythrocyte distribution width (RBC) [Ratio] 13.2 % 11.5 - 14.5 % [facility] Hematocrit (Bld) [Volume fraction] 33.3 % Low 40.0 - 52.0 % [facility] Hemoglobin (Bld) [Mass/Vol] 11.2 g/dL Low 13.0 - 18.0 g/dL [facility] Interpretation and review of laboratory results Abnormal [facility] Lymphocytes (Bld) [#/Vol] 0.8 10*3/uL Low 1.0 - 4.3 10*3/uL [facility] Lymphocytes/100 WBC (Bld) 10.3 % Low 20.0 - 40.0 % [facility] MCH (RBC) [Entitic mass] 30.2 pg 26. 0 - 34.0 pg [facility] MCHC (RBC) [Mass/Vol] 33.8 % 32.0 - 36.0 % [facility] MCV (RBC) [Entitic vol] 89.5 fL 80.0 - 98.0 fL [facility] Monocytes (Bld) [#/Vol] 0.6 10*3/uL 0.0 - 0.8 10*3/uL [facility] Monocytes/100 WBC (Bld) 7.6 % 2.0 - 10.0 % [facility] Neutrophils (Bld) [#/Vol] 6.6 10*3/uL 1.8 - 7.0 10*3/uL [facility] Neutrophils/100 WBC (Bld) 80.7 % High 40.0 - 80.0 % [facility] Nucleated RBC/100 WBC (Bld) [Ratio] 0.0 % [facility] Platelet mean volume (Bld) [Entitic vol] 8.8 fL 7.4 - 12.4 fL [facility] Platelets (Bld) [#/Vol] 305 10*3/uL 140 - 440 10*3/uL [facility] RBC (Bld) [#/Vol] 3.72 10*6/uL Low 4.40 - 5.9 0 10*6/uL [facility] WBC (Bld) [#/Vol] 8.2 10*3/uL 3.6 - 10.7 10*3/uL [facility] Laboratory - Chemistry and C hemistry - challengeon 01-19-2023 Glucose [Mass/Vol] 119 mg/dL High 70 - 100 mg/dL [facility] Glucose [Mass/Vol] 91 mg/dL 70 - 100 mg/dL [facility] Glucose [Mass/Vol] 173 mg/dL High 70 - 100 mg/dL [facility] Glucose [Mass/Vol] 90 mg/dL 70 - 100 mg/dL [facility] Glucose [Mass/Vol] 68 mg/dL Low 70 - 100 mg/dL [facility] No Panel Informationon 01-19 Interpretation and review of laboratory results Abnormal [facility] Performed by: [facility], [address] [place] [address] CLIA ID: [id number] [facility] Interpretation and review of laboratory results Normal [facility] Performed by: [facility], [address] [place] [address] CLIA ID: [id number] [facility] Interpretation and review of laboratory results Abnormal [facility] Performed by: [facility], [address] [facility] [address] CLIA ID: [id number] [facility] Interpretation and review of laboratory results Normal [facility] Performed by: [facility], [address] [facility] [address] CLIA ID: [id number] [facility] Interpretation and review of laboratory results Abnormal [facility] Performed by: [facility], [address] [facility] [address] CLIA ID: [id number] [facility] Basic metabolic 1998 panelOr dered By: Osman Cadena on 01-18-2023 Anion gap [Moles/Vol] 4 mmol/L 3 - 13 mmol/L [facility] Calcium [Mass/Vol] 8.8 mg/dL 8.4 - 10. 4 mg/dL [facility] Chloride [Moles/Vol] 110 mmol/L High 98 - 10 7 mmol/L [facility] CO2 [Moles/Vol] 27 mmol/L 22 - 30 mmol/L [facility] Creatinine [Mass/Vol] 1.44 mg/dL High 0.66 - 1.25 mg/dL [facility] GFR/1.73 sq M.predicted MDRD (S/P/Bld) [Vol rate/Area] 47.0 mL/min/{1.73_m2} Low - PINF [facility] Comment on above: Calculation based on the Chronic Kidney Disease Epidemiology Collaboration (CKD-EPI) equation refit without adjustment for race Glucose [Mass/Vol] 94 mg/dL 70 - 100 mg/dL [facility] Interpretation and review of laboratory results Abnormal [facility] Potassium [Moles/Vol] 3.8 mmol/L 3.5 - 5.1 mmol/L [facility] Sodium [Moles/Vol] 141 mmol/L 135 - 145 mmol/L [facility] Urea nitrogen [Mass/Vol] 54 mg/dL High 9 - 20 mg/d L [facility] CBC W Auto Differential pane l (Bld)Ordered By: Waylon Fajardo on 01-18-2023 Basophils (Bld) [#/Vol] 0.0 10*3/uL 0.0 - 0.2 10*3/uL [facility] Basophils/100 WBC (Bld) 0.2 % 0.0 - 2.0 % [facility] Eosinophils (Bld) [#/Vol] 0.0 10*3/uL 0.0 - 0.5 10*3/uL [facility] Eosinophils/100 WBC (Bld) 0.3 % Low 1.0 - 6.0 % [facility] Erythrocyte distribution width (RBC) [Ratio] 12.9 % 11.5 - 14.5 % [facility] Hematocrit (Bld) [Volume fraction] 30.8 % Low 40.0 - 52.0 % [facility] Hemoglobin (Bld) [Mass/Vol] 10.6 g/dL Low 13.0 - 18.0 g/dL [facility] Interpretation and review of laboratory results Abnormal [facility] Lymphocytes (Bld) [#/Vol] 0.7 10*3/uL Low 1.0 - 4.3 10*3/uL [facility] Lymphocytes/100 WBC (Bld) 7.3 % Low 20.0 - 40.0 % [facility] MCH (RBC) [Entitic mass] 30.8 pg 26. 0 - 34.0 pg [facility] MCHC (RBC) [Mass/Vol] 34.5 % 32.0 - 36.0 % [facility] MCV (RBC) [Entitic vol] 89.2 fL 80.0 - 98.0 fL [facility] Monocytes (Bld) [#/Vol] 0.7 10*3/uL 0.0 - 0.8 10*3/uL [facility] Monocytes/100 WBC (Bld) 7.4 % 2.0 - 10.0 % [facility] Neutrophils (Bld) [#/Vol] 7.8 10*3/uL High 1.8 - 7.0 10*3/uL [facility] Neutrophils/100 WBC (Bld) 84.8 % High 40.0 - 80.0 % [facility] Nucleated RBC/100 WBC (Bld) [Ratio] 0.0 % [facility] Platelet mean volume (Bld) [Entitic vol] 9.4 fL 7.4 - 12.4 fL [facility] Platelets (Bld) [#/Vol] 289 10*3/uL 140 - 440 10*3/uL [facility] RBC (Bld) [#/Vol] 3.45 10*6/uL Low 4.40 - 5.9 0 10*6/uL [facility] WBC (Bld) [#/Vol] 9.2 10*3/uL 3.6 - 10.7 10*3/uL [facility] HbA1c (Bld) [Mass fraction]o n 01-18-2023 Glucose [Mass/Vol] 200 mg/dL [facility] HbA1c (Bld) [Mass/Vol] 8.6 % High NINF - 5.7 % [facility] Comment on above: Normal less than 5.7 % Prediabetes 5.7% to 6.4% Diabetes 6.5% or higher --HgbA1C levels may not be accurate in patients who have renal disease, received recent blood transfusions, are anemic, or who have dyshemoglobinemia. Interpretation and review of laboratory results Abnormal [facility] Laboratory - Chemistry and C hemistry - challengeon 01-18-2023 Glucose [Mass/Vol] 202 mg/dL High 70 - 100 mg/dL [facility] Procalcitonin [Mass/Vol] 0.26 ng/mL High 0.0 0 - 0.09 ng/mL [facility] Glucose [Mass/Vol] 74 mg/dL 70 - 100 mg/dL [facility] Glucose [Mass/Vol] 210 mg/dL High 70 - 100 mg/dL [facility] Glucose [Mass/Vol] 139 mg/dL High 70 - 100 mg/dL [facility] Glucose [Mass/Vol] 99 mg/dL 70 - 100 mg/dL [facility] No Panel Informationon 01-18 Interpretation and review of laboratory results Abnormal [facility] Performed by: [facility], [address] [place] [id number] CLIA ID: [id number] [facility] Interpretation and review of laboratory results Normal [facility] Performed by: [facility], [address] [facility] [address] CLIA ID: [id number] [facility] Interpretation and review of laboratory results Abnormal [facility] Performed by: [facility], [address] [facility] [address] CLIA ID: [id number] [facility] Interpretation and review of laboratory results Abnormal [facility] Performed by: [facility], [address] [facility] [address] CLIA ID: [id number] [facility] Interpretation and review of laboratory results Normal [facility] Performed by: [facility], [address] [facility] [address] CLIA ID: [id number] [facility] Procalcitonin [Mass/Vol]on 0 01-18-2023 Interpretation and review of laboratory results Abnormal [facility] PCT <0.50 = Low risk of severe sepsis and/or septic shock. PCT >2.00 = High risk of severe sepsis and/or septic shock. [facility] CBC W Auto Differential pane l (Bld)Ordered By: Sania Grigsby on 01-17-2023 Basophils (Bld) [#/Vol] 0.0 10*3/uL 0.0 - 0.2 10*3/uL [facility] Basophils/100 WBC (Bld) 0.5 % 0.0 - 2.0 % [facility] Eosinophils (Bld) [#/Vol] 0.1 10*3/uL 0.0 - 0.5 10*3/uL [facility] Eosinophils/100 WBC (Bld) 0.6 % Low 1.0 - 6.0 % [facility] Erythrocyte distribution width (RBC) [Ratio] 13.4 % 11.5 - 14.5 % [facility] Hematocrit (Bld) [Volume fraction] 33.3 % Low 40.0 - 52.0 % [facility] Hemoglobin (Bld) [Mass/Vol] 11.0 g/dL Low 13.0 - 18.0 g/dL [facility] Lymphocytes (Bld) [#/Vol] 0.9 10*3/uL Low 1.0 - 4.3 10*3/uL [facility] Lymphocytes/100 WBC (Bld) 10.0 % Low 20.0 - 40.0 % [facility] MCH (RBC) [Entitic mass] 29.8 pg 26. 0 - 34.0 pg [facility] MCHC (RBC) [Mass/Vol] 33.2 % 32.0 - 36.0 % [facility] MCV (RBC) [Entitic vol] 89.7 fL 80.0 - 98.0 fL [facility] Monocytes (Bld) [#/Vol] 0.6 10*3/uL 0.0 - 0.8 10*3/uL [facility] Monocytes/100 WBC (Bld) 6.9 % 2.0 - 10.0 % [facility] Neutrophils (Bld) [#/Vol] 7.3 10*3/uL High 1.8 - 7.0 10*3/uL [facility] Neutrophils/100 WBC (Bld) 82.0 % High 40.0 - 80.0 % [facility] Nucleated RBC/100 WBC (Bld) [Ratio] 0.2 % [facility] Platelet mean volume (Bld) [Entitic vol] 9.9 fL 7.4 - 12.4 fL [facility] Platelets (Bld) [#/Vol] 296 10*3/uL 140 - 440 10*3/uL [facility] Comment on above: Occasional fibrin st rands noted on smear, no clot detected in tube, may affect platelet count, suggest repeat draw RBC (Bld) [#/Vol] 3.71 10*6/uL Low 4.40 - 5.9 0 10*6/uL [facility] WBC (Bld) [#/Vol] 8.9 10*3/uL 3.6 - 10.7 10*3/uL [facility] CT Head WO contraston 2022 1. No acute intracranial process. 2. Global volume loss with small vessel ischemia. Report Dictated on Electronically Signed By: Iman Arriaga Electronically Signed Date/Time: 01/17/2023 8:59 PM [facility] Patient Name: TITA KEITH : 1935 [facility]#: [id number] Exam Date/Time: 01/17/2023 20:43 Procedure: CT HEAD [...] globes are symmetric. The sinuses are pneumatized. [facility] Iman Arriaga MD - 01/17/2023 Patient Name: TITA KEITH : 1935 [facility]#: [id number] Exam Date/Time: 01/17/2023 20:43 Procedure: CT HEAD [...] Electronically Signed Date/Time: 01/17/2023 8:59 PM EDT [facility] Radiology Study observation (narrative) [facility] CT Head WO contrastOrdered B y: Iman Arriaga on 01-17-2023 [facility] Work Phone: Comprehensive metabolic 1998 panelOrdered By: Alexey Jackson on 01-17-2023 Albumin [Mass/Vol] 3.2 g/dL Low 3.5 - 5.0 g/dL [facility] ALP [Catalytic activity/Vol] 103 U/L 38 - 126 U/L [facility] ALT [Catalytic activity/Vol] 31 U/L 0 - 49 U/L [facility] Anion gap [Moles/Vol] 4 mmol/L 3 - 13 mmol/L [facility] AST [Catalytic activity/Vol] 45 U/L 15 - 46 U/L [facility] Bilirubin [Mass/Vol] 0.6 mg/dL 0.2 - 1 .3 mg/dL [facility] Calcium [Mass/Vol] 8.7 mg/dL 8.4 - 10. 4 mg/dL [facility] Chloride [Moles/Vol] 99 mmol/L 98 - 10 7 mmol/L [facility] CO2 [Moles/Vol] 28 mmol/L 22 - 30 mmol/L [facility] Creatinine [Mass/Vol] 1.77 mg/dL High 0.66 - 1.25 mg/dL [facility] GFR/1.73 sq M.predicted MDRD (S/P/Bld) [Vol rate/Area] 36.7 mL/min/{1.73_m2} Low - PINF [facility] Comment on above: Calculation based on the Chronic Kidney Disease Epidemiology Collaboration (CKD-EPI) equation refit without adjustment for race Glucose [Mass/Vol] 533 mg/dL Critically high 70 - 1 00 mg/dL [facility] Interpretation and review of laboratory results Abnormal [facility] Potassium [Moles/Vol] 5.4 mmol/L High 3.5 - 5.1 mmol/L [facility] Protein [Mass/Vol] 6.6 g/dL 6.3 - 8.2 g/dL [facility] Sodium [Moles/Vol] 131 mmol/L Low 135 - 145 mmol/L [facility] Urea nitrogen [Mass/Vol] 68 mg/dL High 9 - 20 mg/d L [facility] Specimen slightly hemolyzed please interpret with caution [facility] - Chemistry and C hemistry - challengeon 01-17-2023 Lactate [Moles/Vol] 1.6 mmol/L 0.7 - 2. 0 mmol/L [facility] Base excess Calc (BldV) [Moles/Vol] 2.6 mmol/L -3 - 3 mmol/L [facility] CO2 (BldV) [Partial pressure] 48.8 mm[Hg] [facility] CO2 [Moles/Vol] 29.9 mmol/L High 24.0 - 28.0 mmol/L [facility] HCO3 (Bld) [Moles/Vol] 28.4 mmol/L High 23.0 - 27.0 mmol/L [facility] Oxygen (BldV) [Partial pressure] Low [facility] pH (BldV) 7.373 [pH] 7.330 - 7.430 pH [facility] Troponin I.cardiac [Mass/Vol] 0.016 ng/mL 0.000 - 0.034 ng/mL [facility] Beta hydroxybutyrate [Mass/Vol] 1.16 mg/dL 0.20 - 2.81 mg/dL [facility] Lipase [Catalytic activity/Vol] 86 U/L 23 - 300 U/L [facility] Glucose [Mass/Vol] mg/dL High 70 - 100 mg/dL [facility] Comment on above: Confirmation Drawn; Lipase [Catalytic activity/V ol]on 01-17-2023 Interpretation and review of laboratory results Normal [facility] Manual differential performe d Ql (Bld)on 01-17-2023 [place] cells LM Ql (Bld) Slight Abnormal (none) [facility] Leukocyte morphology finding Nom (Bld) Normal [facility] Ovalocytes LM Ql (Bld) Slight Abnormal (none) [facility] Platelet morphology finding Nom (Bld) Normal [facility] Polychromasia LM Ql (Bld) Rare Abnormal (none) [facility] WBC corrected for nucl RBC (Bld) [#/Vol] 8.90 10*3/uL 3.60 - 10.70 10*3/uL [facility] No Panel Informationon 01-17 P [place] -45 degrees [facility] FL Interval 136 ms [facility] QRS [place] 64 degrees [facility] QRSD Interval 84 ms [facility] QT Interval 372 ms [facility] QTC Interval 424 ms [facility] T Wave [place] 46 degrees [facility] SINUS OR ECTOPIC ATRIAL RHYTHM BASELINE [...] On 01-17-2023 23:24:28 EDT by Karel Ghosh [facility] Interpretation and review of laboratory results Normal [facility] FIO2 21 [facility] Comment on above: Performed by CLIA ID : [id number] [facility], [place], [place] ?Device: [id number] Chemistry Lab Instructor ID: [id number] Interpretation and review of laboratory results Abnormal [facility] by: [facility], [address] [facility], [facility] [address] CLIA ID: [id number] [facility] Interpretation and review of laboratory results Normal [facility] Interpretation and review of laboratory results Abnormal [facility] Performed by: [facility], [address] [facility], [facility] [address] CLIA ID: [id number] [facility] No Panel InformationOrdered By: Sania Grigsby on 01-17-2023 Interpretation and review of laboratory results Abnormal [facility] Troponin I.cardiac [Mass/Vol ]on 01-17-2023 Interpretation and review of laboratory results Normal [facility] Patients with high levels of Biotin oral intake (ie >5 mg/day) may have falsely decreased Troponin levels. [facility] Urinalysis complete panel (U )Ordered By: Lilian Mata on 01-17-2023 Amorphous Crystals, Urine Few Abnormal Negative /HPF [facility] Bacteria LM.HPF (Urine sed) [#/Area] Few Abnormal Negative /HPF [facility] Bilirubin Ql (U) Negative Negative mg/dL [facility] Clarity (U) Clear Clear [facility] Color (U) Light Yellow Lt. Yellow [facility] Epithelial cells.squamous LM.HPF (Urine sed) [#/Area] 0[facility]l (U) >1,000 Abnormal Normal (<70) mg/dL [facility] Hemoglobin Ql (U) Negative Negative mg/dL [facility] Hyaline casts Auto (Urine sed) [#/Area] 0-2 Abnormal Negative /LPF [facility] Interpretation and review of laboratory results Abnormal [facility] Ketones (U) [Mass/Vol] Negative Negat kate mg/dL [facility] Leukocyte esterase Test strip Ql (U) Negative Negative Rosales/uL [facility] Mucus LM.HPF (Urine sed) [#/Area] Few Negative /LPF [facility] Nitrite Ql (U) Negative Negative [facility] Non-Squamous Epithalial Cells, Urine 0-2 Abnormal Negative /HPF [facility] pH (U) 5.0 [pH] 5.0 - 8.0 pH [facility] Protein (U) [Mass/Vol] 10 mg/dL Abnormal Negative [facility] RBC LM.HPF (Urine sed) [#/Area] 0-2 [facility] Specific gravity (U) [Rel density] 1.020 1.005 - 1.030 [facility] Urobilinogen (U) [Mass/Vol] Normal Normal (0-1) mg/dL [facility] WBC LM.HPF (Urine sed) [#/Area] 0-2 [facility] Vital signson 01-17-2023 Heart rate 78 /min bpm [facility] Oxygen saturation in Venous blood 35.0 % Low 60.0 - 80.0 % [facility] XR Chest Single viewon 01-17 No acute cardiopulmonary process identified. Report Dictated on Electronically Signed By: Deniz Kelly Electronically Signed Date/Time: 01/17/2023 9:00 PM EDT [facility] Patient Name: TITA KEITH : 1935 [...] unremarkable. Bones: No acute osseous process identified. [facility] Deniz Kelly MD - 01/17/2023 Patient Name: TITA KEITH : 1935 Exam [...] Electronically Signed Date/Time: 01/17/2023 9:00 PM EDT [facility] Radiology Study observation (narrative) [facility] XR Chest Single viewOrdered By: Deniz Kelly on 01-17-2023 [facility] Work Phone: Basic metabolic 1998 panelon 01-05-2023 Anion gap [Moles/Vol] 2 mmol/L Low 3 - 13 mmol/L [facility] Calcium [Mass/Vol] 8.4 mg/dL 8.4 - 10. 4 mg/dL [facility] Chloride [Moles/Vol] 105 mmol/L 98 - 10 7 mmol/L [facility] CO2 [Moles/Vol] 29 mmol/L 22 - 30 mmol/L [facility] Creatinine [Mass/Vol] 1.23 mg/dL 0.66 - 1.25 mg/dL [facility] GFR/1.73 sq M.predicted MDRD (S/P/Bld) [Vol rate/Area] 56.8 mL/min/{1.73_m2} Low - PINF [facility] Comment on above: Calculation based on the Chronic Kidney Disease Epidemiology Collaboration (CKD-EPI) equation refit without adjustment for race Glucose [Mass/Vol] 127 mg/dL High 70 - 100 mg/dL [facility] Interpretation and review of laboratory results Abnormal [facility] Potassium [Moles/Vol] 4.0 mmol/L 3.5 - 5.1 mmol/L [facility] Sodium [Moles/Vol] 136 mmol/L 135 - 145 mmol/L [facility] Urea nitrogen [Mass/Vol] 35 mg/dL High 9 - 20 mg/d L [facility] CBC panel Auto (Bld)Ordered By: Chad Navarro on 01-05-2023 Erythrocyte distribution width (RBC) [Ratio] 12.4 % 11.5 - 14.5 % [facility] Hematocrit (Bld) [Volume fraction] 36.7 % Low 40.0 - 52.0 % [facility] Hemoglobin (Bld) [Mass/Vol] 12.6 g/dL Low 13.0 - 18.0 g/dL [facility] Interpretation and review of laboratory results Abnormal [facility] MCH (RBC) [Entitic mass] 31.2 pg 26. 0 - 34.0 pg [facility] MCHC (RBC) [Mass/Vol] 34.3 % 32.0 - 36.0 % [facility] MCV (RBC) [Entitic vol] 90.8 fL 80.0 - 98.0 fL [facility] Platelet mean volume (Bld) [Entitic vol] 10.4 fL 7.4 - 12.4 fL [facility] Comment on above: MPV is a calculated measurement using platelet volume ratio Platelets (Bld) [#/Vol] 141 10*3/uL 140 - 440 10*3/uL [facility] RBC (Bld) [#/Vol] 4.04 10*6/uL Low 4.40 - 5.9 0 10*6/uL [facility] WBC (Bld) [#/Vol] 9.6 10*3/uL 3.6 - 10.7 10*3/uL [facility] CT Cervical spine WO contras ton 01-05-2023 No cervical spine fracture. Report Dictated on Electronically Signed By: Otf Gutierrez Electronically Signed Date/Time: 01/05/2023 2:19 AM [facility] Patient Name: TITA KEITH : [...] soft tissues and lung apices are unremarkable. [facility] Otf Gutierrez MD - 01/05/2023 [...] Electronically Signed Date/Time: 01/05/2023 2:19 AM EDT [facility] Radiology Study observation (narrative) [facility] CT Head WO contraston 03-17- 2023 No acute intracranial hemorrhage or mass effect. Report Dictated on Electronically Signed By: Otf Gutierrez Electronically Signed Date/Time: 01/05/2023 2:17 AM EDT [facility] Patient Name: TITA KEITH : [...] cells are well aerated. Calvarium is unremarkable. [facility] Otf Gutierrez MD - 01/05/2023 [...] Electronically Signed Date/Time: 01/05/2023 2:17 AM EDT [facility] Radiology Study observation (narrative) [facility] metabolic 1998 panelon 01-05-2023 Albumin [Mass/Vol] 4.2 g/dL 3.5 - 5.0 g/dL [facility] ALP [Catalytic activity/Vol] 107 U/L 38 - 126 U/L [facility] ALT [Catalytic activity/Vol] 19 U/L 0 - 49 U/L [facility] Anion gap [Moles/Vol] 4 mmol/L 3 - 13 mmol/L [facility] AST [Catalytic activity/Vol] 26 U/L 15 - 46 U/L [facility] Bilirubin [Mass/Vol] 0.7 mg/dL 0.2 - 1 .3 mg/dL [facility] Calcium [Mass/Vol] 9.5 mg/dL 8.4 - 10. 4 mg/dL [facility] Chloride [Moles/Vol] 104 mmol/L 98 - 10 7 mmol/L [facility] CO2 [Moles/Vol] 32 mmol/L High 22 - 30 mmol/L [facility] Creatinine [Mass/Vol] 1.35 mg/dL High 0.66 - 1.25 mg/dL [facility] GFR/1.73 sq M.predicted MDRD (S/P/Bld) [Vol rate/Area] 50.8 mL/min/{1.73_m2} Low - PINF [facility] Comment on above: Calculation based on the Chronic Kidney Disease Epidemiology Collaboration (CKD-EPI) equation refit without adjustment for race Glucose [Mass/Vol] 141 mg/dL High 70 - 100 mg/dL [facility] Interpretation and review of laboratory results Abnormal [facility] Potassium [Moles/Vol] 5.3 mmol/L High 3.5 - 5.1 mmol/L [facility] Protein [Mass/Vol] 7.5 g/dL 6.3 - 8.2 g/dL [facility] Sodium [Moles/Vol] 139 mmol/L 135 - 145 mmol/L [facility] Urea nitrogen [Mass/Vol] 38 mg/dL High 9 - 20 mg/d L [facility] - Chemistry and C hemistry - challengeon 01-05-2023 Troponin I.cardiac [Mass/Vol] ng/mL 0.000 - 0.034 ng/mL [facility] No Panel Informationon 01-05 P [place] degrees [facility] FL Interval 183 ms [facility] QRS [place] 70 degrees [facility] QRSD Interval 88 ms [facility] QT Interval 330 ms [facility] QTC Interval 400 ms [facility] T Wave [place] 57 degrees [facility] SINUS RHYTHM Electronically Signed On 01-05-2023 1:26:20 EDT by Kee Mishra CV Kee Asencio MD - 01/05/2023 IMPRESSION: SINUS RHYTHM Electronically Signed On 01-05-2023 1:26:20 EDT by Kee Mishra [facility] Troponin I.cardiac [Mass/Vol ]on 01-05-2023 Interpretation and review of laboratory results Normal [facility] Patients with high levels of Biotin oral intake (ie >5 mg/day) may have falsely decreased Troponin levels. [facility] Vital signson 01-05-2023 Heart rate 88 /min bpm [facility] XR Chest Single viewon 01-05 No focal consolidation or pulmonary edema. Report Dictated on Electronically Signed By: Otf Gutierrez Electronically Signed Date/Time: 01/05/2023 2:13 AM EDT [facility] 1935 [id number] Exam Date/Time: 01/05/2023 01:56 Procedure: XR CHEST 1 VIEW Ordering Provider: MISHRA NICHOLAS Reason For Exam: TRAUMA PORTABLE CHEST CLINICAL INDICATION: Chest pain, trauma TECHNIQUE: Portable AP COMPARISON: None FINDINGS: No focal consolidation or pulmonary edema. No pleural effusions or pneumothorax. The cardiac and mediastinal silhouettes are normal. Degenerative change of the thoracic spine is noted. [facility] Otf Gutierrez MD - 01/05/2023 Patient [...] consolidation or pulmonary edema. Report Dictated on Workstation: [id number] Electronically Signed By: Otf Gutierrez Electronically Signed Date/Time: 01/05/2023 2:13 AM EDT [facility] Radiology Study observation (narrative) [facility] XR Chest Single viewOrdered By: Otf Gutierrez on 01-05-2023 [facility] Work Phone: XR Hip - right 3 Viewson No fracture or dislocation. Report Dictated on Workstation: [id number] Electronically Signed By: Otf Gutierrez Electronically Signed Date/Time: 01/05/2023 2:14 AM EDT [employer] [facility] Patient Name: TITA KEITH : 1935 [...] identified. There is no soft tissue abnormality. [facility] Otf Gutierrez MD - 01/05/2023 [...] Electronically Signed Date/Time: 01/05/2023 2:14 AM EDT [facility] Radiology Study observation (narrative) Dorene ralph Glucose,Bedsideon 03-06-2022 Glucose [Mass/Vol] 183 mg/dL High 70-100 [facility] Comment on above: Result Comment: Test performed by glucose meter. Results may be 10%-15% lower than serum/plasma values. (CLIA ID [id number]) Performed By: #### B GLU #### [facility] [address] [place] [address] Glucose [Mass/Vol] 145 mg/dL High 70-100 [facility] Comment on above: Result Comment: Test performed by glucose meter. Results may be 10%-15% lower than serum/plasma values. (CLIA ID [id number]) Performed By: #### B GLU #### [facility] [address] [place] [address] Glucose,Bedsideon 03-05-2022 Glucose [Mass/Vol] 190 mg/dL High 70-100 [facility] Comment on above: Result Comment: Test performed by glucose meter. Results may be 10%-15% lower than serum/plasma values. (CLIA ID [id number]) Performed By: #### B GLU #### [facility] [address] [place] [address] Glucose [Mass/Vol] 210 mg/dL High 70-100 [facility] Comment on above: Result Comment: Test performed by glucose meter. Results may be 10%-15% lower than serum/plasma values. (CLIA ID [id number]) Performed By: #### B GLU #### [facility] [address] [place] [address] Glucose [Mass/Vol] 112 mg/dL [facility] [address] [facility] Comment on above: Result Comment: Test performed by glucose meter. Results may be 10%-15% lower than serum/plasma values. (CLIA ID [id number]) Performed By: #### B GLU #### [facility] [address] [place] [address] Glucose,Bedsideon 03-04-2022 Glucose [Mass/Vol] 186 mg/dL High [address] [facility] Comment on above: Result Comment: Test performed by glucose meter. Results may be 10%-15% lower than serum/plasma values. (CLIA ID [id number]) Performed By: #### B GLU #### [facility] [address] [place] [address] Glucose [Mass/Vol] 127 mg/dL [facility] [address] Comment on above: Result Comment: Test performed by glucose meter. Results may be 10%-15% lower than serum/plasma values. (CLIA ID [id number]) Performed By: #### B GLU #### [facility] [address] [place] [address] Glucose [Mass/Vol] 192 mg/dL [facility] [address] Comment on above: Result Comment: Test performed by glucose meter. Results may be 10%-15% lower than serum/plasma values. (CLIA ID [id number]) Performed By: #### B GLU #### [facility] [address] [place] [address] Glucose [Mass/Vol] 128 mg/dL [facility] [address] [facility] Comment on above: Result Comment: Test performed by glucose meter. Results may be 10%-15% lower than serum/plasma values. (CLIA ID [id number]) Performed By: #### B GLU #### [facility] [address] [place] [address] Basic Metabolic Panelon 05- Anion gap [Moles/Vol] 4 mmol/L Normal 3-13 [facility] Comment on above: Performed By: #### B MP3 #### [facility] [address] [place] [address] Calcium [Mass/Vol] 8.9 mg/dL Normal 8.4-10.4 [facility] Comment on above: Performed By: #### B MP3 #### [facility] [address] [place] [address] CO2 [Moles/Vol] 25 mmol/L Normal 22-30 [facility] Comment on above: Performed By: #### B MP3 #### [facility] [address] [place] [address] Glucose [Mass/Vol] 125 mg/dL High 70-100 [facility] Comment on above: Performed By: #### B MP3 #### [facility] [address] [place] [address] Urea nitrogen [Mass/Vol] 15 mg/dL Normal 7-17 [facility] Comment on above: Performed By: #### B MP3 #### [facility] [address] [place] [address] Creatinine [Mass/Vol] 1.12 mg/dL Normal 0.52-1.25 [facility] Comment on above: Performed By: #### B MP3 #### [facility] [address] [place] [address] GFR/1.73 sq M.predicted among blacks MDRD (S/P/Bld) [Vol rate/Area] 68.4 mL/min/{1.73_m2} Normal >60 [facility] Comment on above: Performed By: #### B MP3 #### [facility] [address] [place] [address] GFR/1.73 sq M.predicted among non-blacks MDRD (S/P/Bld) [Vol rate/Area] 59.1 mL/min/{1.73_m2} Abnormal >60 [facility] Comment on above: Result Comment: KDIG O [...] secretion. Performed By: #### B MP3 #### [facility] [address] [place] [address] Chloride [Moles/Vol] 106 mmol/L Normal 98-107 [facility] Comment on above: Performed By: #### B MP3 #### [facility] [address] [place] [address] Potassium [Moles/Vol] 4.2 mmol/L Normal 3.5-5.1 [facility] Comment on above: Performed By: #### B MP3 #### [facility] [address] [place] [address] Sodium [Moles/Vol] 136 mmol/L Normal 135-145 [facility] Comment on above: Performed By: #### B MP3 #### [facility] [address] [place] [address] CULTURE URINEon 03-03-2022 CULTURE URINE CULTURE URINE --> Status: F No growth (<1,000 CFU/ml). Normal [facility] Comment on above: Performed By: #### B GLU #### [facility] [address] [place] [address] Glucose,Bedsideon 03-03-2022 Glucose [Mass/Vol] 235 mg/dL [facility] 70-100 [facility] Comment on above: Result Comment: Test performed by glucose meter. Results may be 10%-15% lower than serum/plasma values. (CLIA ID [id number]) Performed By: #### B GLU #### [facility] [address] [place] [address] Glucose [Mass/Vol] 156 mg/dL High 70-100 [facility] Comment on above: Result Comment: Test performed by glucose meter. Results may be 10%-15% lower than serum/plasma values. (CLIA ID [id number]) Performed By: #### B GLU #### [facility] [address] [place] [address] Glucose [Mass/Vol] 119 mg/dL High 70-100 [facility] Comment on above: Result Comment: Test performed by glucose meter. Results may be 10%-15% lower than serum/plasma values. (CLIA ID [id number]) Performed By: #### B GLU #### [facility] [address] [place] [address] Glucose [Mass/Vol] 110 mg/dL High 70-100 [facility] Comment on above: Result Comment: Test performed by glucose meter. Results may be 10%-15% lower than serum/plasma values. (CLIA ID [id number]) Performed By: #### B GLU #### [facility] [address] [place] [address] Basic Metabolic Panelon 05-1 -2021 Anion gap [Moles/Vol] 10 mmol/L Normal 3-13 [facility] Comment on above: Performed By: #### B GLU #### [facility] [address] [place] [address] Calcium [Mass/Vol] 9.6 mg/dL Normal 8.4-10.4 [facility] Comment on above: Performed By: #### B GLU #### [facility] [address] [place] [address] CO2 [Moles/Vol] 24 mmol/L Normal 22-30 [facility] Comment on above: Performed By: #### B GLU #### [facility] [address] [place] [address] Glucose [Mass/Vol] 196 mg/dL High 70-100 [facility] Comment on above: Performed By: #### B GLU #### [facility] [address] [place] [address] Urea nitrogen [Mass/Vol] 23 mg/dL High 7-17 [facility] Comment on above: Performed By: #### B GLU #### [facility] [address] [place] [address] Creatinine [Mass/Vol] 1.27 mg/dL High 0.52-1.25 [facility] Comment on above: Performed By: #### B GLU #### [facility] [address] [place] [address] GFR/1.73 sq M.predicted among blacks MDRD (S/P/Bld) [Vol rate/Area] 58.8 mL/min/{1.73_m2} Abnormal >60 [facility] Comment on above: Performed By: #### B GLU #### [facility] [address] [place] [address] GFR/1.73 sq M.predicted among non-blacks MDRD (S/P/Bld) [Vol rate/Area] 50.7 mL/min/{1.73_m2} Abnormal >60 [facility] Comment on above: Result Comment: KDIG O [...] secretion. Performed By: #### B GLU #### [facility] [address] [place] [address] Potassium [Moles/Vol] 3.7 mmol/L Normal 3.5-5.1 [facility] Comment on above: Performed By: #### B GLU #### [facility] [address] [place] [address] Chloride [Moles/Vol] 103 mmol/L Normal 98-107 [facility] Comment on above: Performed By: #### B GLU #### [facility] [address] [place] [address] Sodium [Moles/Vol] 137 mmol/L Normal 135-145 [facility] Comment on above: Performed By: #### B GLU #### [facility] [address] [place] [address] Glucose,Bedsideon 03-02-2022 Glucose [Mass/Vol] 112 mg/dL High 70-100 [facility] Comment on above: Result Comment: Test performed by glucose meter. Results may be 10%-15% lower than serum/plasma values. (CLIA ID [id number]) Performed By: #### B GLU #### [facility] [address] [place] [address] Glucose [Mass/Vol] 347 mg/dL High 70-100 [facility] Comment on above: Result Comment: Test performed by glucose meter. Results may be 10%-15% lower than serum/plasma values. (CLIA ID [id number]) Performed By: #### B GLU #### [facility] [address] [place] [address] Glucose [Mass/Vol] 240 mg/dL High 70-100 [facility] Comment on above: Result Comment: Test performed by glucose meter. Results may be 10%-15% lower than serum/plasma values. (CLIA ID [id number]) Performed By: #### B GLU #### [facility] [address] [place] [address] Glucose [Mass/Vol] 156 mg/dL High 70-100 [facility] Comment on above: Result Comment: Test performed by glucose meter. Results may be 10%-15% lower than serum/plasma values. (CLIA ID [id number]) Performed By: #### B GLU #### [facility] [address] [place] [address] Glucose [Mass/Vol] 202 mg/dL High 70-100 [facility] Comment on above: Result Comment: Test performed by glucose meter. Results may be 10%-15% lower than serum/plasma values. (CLIA ID [id number]) Performed By: #### B GLU #### [facility] [address] [place] [address] Glucose [Mass/Vol] 364 mg/dL High 70-100 [facility] Comment on above: Result Comment: Test performed by glucose meter. Results may be 10%-15% lower than serum/plasma values. (CLIA ID [id number]) Performed By: #### B GLU #### [facility] [address] [place] [address] Hemogram w/ Autodiffon 03-02 Abs Baso Cnt 0.0 10*3/uL Normal 0.0-0.2 [facility] Comment on above: Performed By: #### B GLU #### [facility] [address] [place] [address] Abs Neutrophile Cnt 2.8 10*3/uL Normal 1.8-7.0 [facility] Comment on above: Performed By: #### B GLU #### [facility] [address] [place] [address] Basophils/100 WBC (Bld) 0.4 % Normal 0.0-2.0 [facility] Comment on above: Performed By: #### B GLU #### [facility] [address] [place] [address] Eosinophils (Bld) [#/Vol] 0.1 10*3/uL Normal 0.0-0.5 [facility] Comment on above: Performed By: #### B GLU #### [facility] [address] [place] [address] Eosinophils/100 WBC (Bld) 2.0 % Normal 1.0-6.0 [facility] Comment on above: Performed By: #### B GLU #### [facility] [address] [place] [address] Erythrocyte distribution width (RBC) [Ratio] 13.3 % Normal 11.5-14.5 [facility] Comment on above: Performed By: #### B GLU #### [facility] [address] [place] [address] Granulocytes/100 WBC (Bld) 59.3 % Normal 40.0-80.0 [facility] Comment on above: Performed By: #### B GLU #### [facility] [address] [place] [address] Hematocrit (Bld) [Volume fraction] 39.0 % Low 40.0-52.0 [facility] Comment on above: Performed By: #### B GLU #### [facility] [address] [place] [address] Hemoglobin (Bld) [Mass/Vol] 13.2 g/dL Normal 13.0-18.0 [facility] Comment on above: Performed By: #### B GLU #### [facility] [address] [place] [address] Lymphocytes (Bld) [#/Vol] 1.4 10*3/uL Normal 1.0-4.3 [facility] Comment on above: Performed By: #### B GLU #### [facility] [address] [place] [address] Lymphocytes/100 WBC (Bld) 28.6 % Normal 20.0-40.0 [facility] Comment on above: Performed By: #### B GLU #### [facility] [address] [place] [address] MCH (RBC) [Entitic mass] 29.6 pg Normal 26.0-34.0 [facility] Comment on above: Performed By: #### B GLU #### [facility] [address] [place] [address] MCHC 33.8 % Normal 32.0-36.0 [facility] Comment on above: Performed By: #### B GLU #### [facility] [address] [place] [address] MCV (RBC) [Entitic vol] 87.7 fL Normal 80.0-98.0 [facility] Comment on above: Performed By: #### B GLU #### [facility] [address] [place] [address] Monocytes (Bld) [#/Vol] 0.5 10*3/uL Normal 0.0-0.8 [facility] Comment on above: Performed By: #### B GLU #### [facility] [address] [place] [address] Monocytes/100 WBC (Bld) 9.7 % Normal 2.0-10.0 [facility] Comment on above: Performed By: #### B GLU #### [facility] [address] [place] [address] Platelet mean volume (Bld) [Entitic vol] 9.0 fL Normal 7.4-12.4 [facility] Comment on above: Result Comment: MPV is a calculated measurement using platelet volume ratio. Performed By: #### B GLU #### [facility] [address] [place] [address] Platelets (Bld) [#/Vol] 163 10*3/uL Normal 140-440 [facility] Comment on above: Performed By: #### B GLU #### [facility] [address] [place] [address] RBC (Bld) [#/Vol] 4.45 10*6/uL Normal 4.40-5.90 [facility] Comment on above: Performed By: #### B GLU #### [facility] [address] [place] [address] WBC (Bld) [#/Vol] 4.7 10*3/uL Normal 3.6-10.7 [facility] Comment on above: Performed By: #### B GLU #### [facility] [address] [place] [address] Beta Hydroxybutyrateon 03-01 Beta Hydroxybutyrate 5.06 mg/dL High 0.20-2.81 [facility] Comment on above: Performed By: #### B GLU #### [facility] [address] [place] [address] Comp Metabolic Panelon 03-01 ALP [Catalytic activity/Vol] 118 U/L Normal 38-126 [facility] Comment on above: Performed By: #### B GLU #### [facility] [address] [place] [address] ALT [Catalytic activity/Vol] 27 U/L Normal 0-49 [facility] Comment on above: Result Comment: The ALT test is performed by an updated assay method. Please note that the reference intervals have been changed and are now sex specific. Performed By: #### B GLU #### [facility] [address] [place] [address] Anion gap [Moles/Vol] 7 mmol/L Normal 3-13 [facility] Comment on above: Performed By: #### B GLU #### [facility] [address] [place] [address] AST [Catalytic activity/Vol] 28 U/L Normal 15-46 [facility] Comment on above: Performed By: #### B GLU #### [facility] [address] [place] [address] Calcium [Mass/Vol] 9.2 mg/dL Normal 8.4-10.4 [facility] Comment on above: Performed By: #### B GLU #### [facility] [address] [place] [address] CO2 [Moles/Vol] 26 mmol/L Normal 22-30 [facility] Comment on above: Performed By: #### B GLU #### [facility] [address] [place] [address] Glucose [Mass/Vol] 544 mg/dL Critically high 70-100 [facility] Comment on above: Performed By: #### B GLU #### [facility] [address] [place] [address] Protein [Mass/Vol] 7.0 g/dL Normal 6.3-8.2 [facility] Comment on above: Performed By: #### B GLU #### [facility] [address] [place] [address] Urea nitrogen [Mass/Vol] 26 mg/dL High 7-17 [facility] Comment on above: Performed By: #### B GLU #### [facility] [address] [place] [address] Bilirubin [Mass/Vol] 0.7 mg/dL Normal 0.2-1.3 [facility] Comment on above: Performed By: #### B GLU #### [facility] [address] [place] [address] Creatinine [Mass/Vol] 1.33 mg/dL High 0.52-1.25 [facility] Comment on above: Performed By: #### B GLU #### [facility] [address] [place] [address] GFR/1.73 sq M.predicted among blacks MDRD (S/P/Bld) [Vol rate/Area] 55.6 mL/min/{1.73_m2} Abnormal >60 [facility] Comment on above: Performed By: #### B GLU #### [facility] [address] [place] [address] GFR/1.73 sq M.predicted among non-blacks MDRD (S/P/Bld) [Vol rate/Area] 48.0 mL/min/{1.73_m2} Abnormal >60 [facility] Comment on above: Result Comment: KDIG O [...] secretion. Performed By: #### B GLU #### [facility] [address] [place] [address] Albumin [Mass/Vol] 4.2 g/dL Normal 3.5-5.0 [facility] Comment on above: Performed By: #### B GLU #### [facility] [address] [place] [address] Chloride [Moles/Vol] 97 mmol/L Low 98-107 [facility] Comment on above: Performed By: #### B GLU #### [facility] [address] [place] [address] Potassium [Moles/Vol] 4.9 mmol/L Normal 3.5-5.1 [facility] Comment on above: Performed By: #### B GLU #### [facility] [address] [place] [address] Sodium [Moles/Vol] 130 mmol/L Low 135-145 [facility] Comment on above: Performed By: #### B GLU #### [facility] [address] [place] [address] Complete Urinalysison 2021 Appearance (U) Clear Normal Clear [facility] Comment on above: Result Comment: . Performed By: #### B GLU #### [facility] [address] [place] [address] Bilirubin,Urine Negative Normal Negative [facility] Comment on above: Result Comment: . Performed By: #### B GLU #### [facility] [address] [place] [address] Color (U) LIGHT YELLOW Normal Lt. Yellow [facility] Comment on above: Result Comment: . Performed By: #### B GLU #### [facility] [address] [place] [address] Glucose Ql (U) > 1,000 Abnormal Normal (<70) [facility] Comment on above: Result Comment: . Performed By: #### B GLU #### [facility] [address] [place] [address] Ketone,Urine Negative Normal Negative [facility] Comment on above: Result Comment: . Performed By: #### B GLU #### [facility] [address] [place] [address] Leukocytes,Urine Negative Normal Negative [facility] Comment on above: Result Comment: . Performed By: #### B GLU #### [facility] [address] [place] [address] Nitrites,Urine Negative Normal Negative [facility] Comment on above: Result Comment: . Performed By: #### B GLU #### [facility] [address] [place] [address] Occult Blood,Urine Negative Normal Negative [facility] Comment on above: Result Comment: . Performed By: #### B GLU #### [facility] [address] [place] [address] pH,Urine 5.5 Normal 5.0-8.0 [facility] Comment on above: Result Comment: . Performed By: #### B GLU #### [facility] [address] [place] [address] Specific Jesse,Urine 1.026 Normal 1.005 - 1.030 [facility] Comment on above: Result Comment: . Performed By: #### B GLU #### [facility] [address] [place] [address] Total Protein,Urine Negative Normal Negative [facility] Comment on above: Result Comment: . Performed By: #### B GLU #### [facility] [address] [place] [address] Urobilinogen,Urine Normal Normal Normal (0-1) [facility] Comment on above: Result Comment: . Performed By: #### B GLU #### [facility] [address] [place] [address] Glucose,Bedsideon 03-01-2022 Glucose [Mass/Vol] 323 mg/dL High 70-100 [facility] Comment on above: Result Comment: Test performed by glucose meter. Results may be 10%-15% lower than serum/plasma values. (CLIA ID [id number]) Performed By: #### B GLU #### [facility] [address] [place] [address] Glucose [Mass/Vol] 275 mg/dL High 70-100 [facility] Comment on above: Result Comment: visitor use assistant Notified; Test performed by glucose meter. Results may be 10%-15% lower than serum/plasma values. (CLIA ID [id number]) Performed By: #### B GLU #### [facility] [address] [place] [address] Hemoglobin A1Con 03-01-2022 Glucose [Mass/Vol] 355 mg/dL Normal [facility] Comment on above: Performed By: #### B GLU #### [facility] [address] [place] [address] HbA1c (Bld) [Mass fraction] % Abnormal [facility] Comment on above: Result Comment: Norm al less than 5.7% Prediabetes 5.7% to 6.4% Diabetes 6.5% or higher --HgbA1C levels may not be accurate in patients who have renal disease, received recent blood transfusions, are anemic, or who have dyshemoglobinemia. Performed By: #### B GLU #### [facility] [address] [place] [address] Hemogram w/ Autodiffon 03-01 Abs Baso Cnt 0.0 10*3/uL Normal 0.0-0.2 [facility] Comment on above: Performed By: #### B GLU #### [facility] [address] [place] [address] Abs Neutrophile Cnt 2.5 10*3/uL Normal 1.8-7.0 [facility] Comment on above: Performed By: #### B GLU #### [place] [address] [place] [address] Basophils/100 WBC (Bld) 0.3 % Normal 0.0-2.0 [facility] Comment on above: Performed By: #### B GLU #### [facility] [address] [place] [address] Eosinophils (Bld) [#/Vol] 0.0 10*3/uL Normal 0.0-0.5 [facility] Comment on above: Performed By: #### B GLU #### [place] [address] [place] [address] Eosinophils/100 WBC (Bld) 0.5 % Low 1.0-6.0 [facility] Comment on above: Performed By: #### B GLU #### [facility] [address] [place] [address] Erythrocyte distribution width (RBC) [Ratio] 12.4 % Normal 11.5-14.5 [facility] Comment on above: Performed By: #### B GLU #### [place] [address] [place] [address] Granulocytes/100 WBC (Bld) 67.7 % Normal 40.0-80.0 [facility] Comment on above: Performed By: #### B GLU #### [facility] [address] [place] [address] Hematocrit (Bld) [Volume fraction] 35.8 % Low 40.0-52.0 [facility] Comment on above: Performed By: #### B GLU #### [facility] [address] [place] [address] Hemoglobin (Bld) [Mass/Vol] 12.5 g/dL Low 13.0-18.0 [facility] Comment on above: Performed By: #### B GLU #### [facility] [address] [place] [address] Lymphocytes (Bld) [#/Vol] 0.8 10*3/uL Low 1.0-4.3 [facility] Comment on above: Performed By: #### B GLU #### [facility] [address] [place] [address] Lymphocytes/100 WBC (Bld) 21.5 % Normal 20.0-40.0 [facility] Comment on above: Performed By: #### B GLU #### [facility] [address] [place] [address] MCH (RBC) [Entitic mass] 30.5 pg Normal 26.0-34.0 [facility] Comment on above: Performed By: #### B GLU #### [facility] [address] [place] [address] MCHC 34.9 % Normal 32.0-36.0 [facility] Comment on above: Performed By: #### B GLU #### [facility] [address] [place] [address] MCV (RBC) [Entitic vol] 87.3 fL Normal 80.0-98.0 [facility] Comment on above: Performed By: #### B GLU #### [facility] [address] [place] [address] Monocytes (Bld) [#/Vol] 0.4 10*3/uL Normal 0.0-0.8 [facility] Comment on above: Performed By: #### B GLU #### [facility] [address] [place] [address] Monocytes/100 WBC (Bld) 9.7 % Normal 2.0-10.0 [facility] Comment on above: Performed By: #### B GLU #### [facility] [address] [place] [address] Platelet mean volume (Bld) [Entitic vol] 10.8 fL Normal 7.4-12.4 [facility] Comment on above: Result Comment: MPV is a calculated measurement using platelet volume ratio. Performed By: #### B GLU #### [facility] [address] [place] [address] Platelets (Bld) [#/Vol] 152 10*3/uL Normal 140-440 [facility] Comment on above: Performed By: #### B GLU #### [facility] [address] [place] [address] RBC (Bld) [#/Vol] 4.10 10*6/uL Low 4.40-5.90 [facility] Comment on above: Performed By: #### B GLU #### [facility] [address] [place] [address] WBC (Bld) [#/Vol] 3.7 10*3/uL Normal 3.6-10.7 [facility] Comment on above: Performed By: #### B GLU #### [facility] [address] [place] [address] Osmolality,Serumon 2 Osmolality,Serum 303 mosm/kg High 280-300 [facility] Comment on above: Order Comment: Speci men moderately hemolyzed. Performed By: #### B GLU #### [facility] [address] [place] [address] Venous Blood Gas Respiratory on 03-01-2022 Base Excess 0.9 mmol/L Normal -3.0-3.0 [facility] Comment on above: Performed By: #### B GLU #### [facility] [address] [place] [address] CO2 [Moles/Vol] 27.0 mmol/L Normal 24.0-28.0 [facility] Comment on above: Result Comment: Perf ormed by CLIA ID: [id number] [place], [place] Performed By: #### B GLU #### [facility] [address] [place] [address] HCO3 (Bld) [Moles/Vol] 25.7 mmol/L Normal 23.0-27.0 [facility] Comment on above: Performed By: #### B GLU #### [facility] [address] [place] [address] Oxygen (Bld) [Partial pressure] 105.1 mm[Hg] High 30.0-50.0 [facility] Comment on above: Performed By: #### B GLU #### [facility] [address] [place] [address] Oxygen saturation in Blood 98.1 % High 60.0-80.0 [facility] Comment on above: Performed By: #### B GLU #### [facility] [address] [place] [address] pCO2 41.0 mm[Hg] Normal 40.0-55.0 [facility] Comment on above: Performed By: #### B GLU #### [facility] [address] [place] [address] pH 7.405 Normal 7.330-7.430 [facility] Comment on above: Performed By: #### B GLU #### [facility] [address] [place] [address] Vital Signs Date Time Vital Sign Value Performing Clinician Facility 04-02-2025 08:11-0400 Body temperature 97.3 [degF] Jj Lara MD Work Phone: [facility] 04-02-2025 08:11-0400 Diastolic blood pressure 107 mm[Hg] Jj Lara MD Work Phone: [facility] 04-02-2025 08:11-0400 Heart rate 71 /min Jj Lara MD Work Phone: [facility] 04-02-2025 08:11-0400 Respiratory rate 16 /min Jj Lara MD Work Phone: [facility] 04-02-2025 08:11-0400 SaO2% (BldA) [Mass fraction] 95 % Jj Lara MD Work Phone: [facility] 04-02-2025 08:11-0400 Systolic blood pressure 165 mm[Hg] Jj Lara MD Work Phone: [facility] 03-30-2025 17:58-0400 Body height 188 cm Jj Lara MD Work Phone: [facility] 03-30-2025 17:58-0400 Body mass index (BMI) [Ratio] 16.69 kg/m2 Jj Lara MD Work Phone: [facility] 03-30-2025 17:58-0400 Body weight 58.97 kg Jj Lara MD Work Phone: [facility] 12-12-2023 12:22-0500 Heart rate 79 /min Cody Lerma MD Work Phone: [facility] 12-12-2023 12:22-0500 Respiratory rate 18 /min Cody Lerma MD Work Phone: [facility] 12-12-2023 12:22-0500 SaO2% (BldA) [Mass fraction] 93 % Cody Lerma MD Work Phone: [facility] 12-12-2023 09:42-0500 Body temperature 98.1 [degF] Cody Lerma MD Work Phone: [facility] 12-12-2023 09:42-0500 Diastolic blood pressure 77 mm[Hg] Cody Lerma MD Work Phone: [facility] 12-12-2023 09:42-0500 Systolic blood pressure 143 mm[Hg] Cody Lerma MD Work Phone: [facility] 12-11-2023 14:54-0500 Body height 188 cm Cody Lerma MD Work Phone: [facility] 12-07-2023 14:38-0500 Body mass index (BMI) [Ratio] 16.63 kg/m2 Cody Lerma MD Work Phone: [facility] 12-07-2023 14:38-0500 Body weight 58.74 kg Cody Lerma MD Work Phone: [facility] 09-23-2023 16:01-0500 Body height 185.42 cm [facility] 09-23-2023 16:01-0500 Body mass index (BMI) [Ratio] 15.9 kg/m2 [facility] 09-23-2023 16:01-0500 Body temperature 97.6 [degF] [facility] 09-23-2023 16:01-0500 Body weight 54.8 kg [facility] 09-23-2023 16:01-0500 Diastolic blood pressure 86 mm[Hg] [facility] 09-23-2023 16:01-0500 Heart rate 76 /min [facility] 09-23-2023 16:01-0500 Respiratory rate 16 /min [facility] 09-23-2023 16:01-0500 SaO2% (BldA) [Mass fraction] 95 % [facility] 09-23-2023 16:01-0500 Systolic blood pressure 150 mm[Hg] [facility] 09-19-2023 08:02-0500 Body temperature 97 [degF] Bernard Phillips MD Work Phone: [facility] 09-19-2023 08:02-0500 Diastolic blood pressure 69 mm[Hg] Bernard Phillips MD Work Phone: [facility] 09-19-2023 08:02-0500 Heart rate 62 /min Bernard Phillips MD Work Phone: [facility] 09-19-2023 08:02-0500 Respiratory rate 16 /min Bernard Phillips MD Work Phone: [facility] 09-19-2023 08:02-0500 SaO2% (BldA) [Mass fraction] 97 % Bernard Phillips MD Work Phone: [facility] 09-19-2023 08:02-0500 Systolic blood pressure 128 mm[Hg] Bernard Phillips MD Work Phone: [facility] 09-14-2023 09:31-0500 Body height 188 cm Bernard Phillips MD Work Phone: [facility] 01-26-2023 08:41-0400 Diastolic blood pressure 73 mm[Hg] Karel Ghosh DO Work Phone: [facility] 01-26-2023 08:41-0400 Heart rate 116 /min Karel Ghosh DO Work Phone: [facility] 01-26-2023 08:41-0400 Systolic blood pressure 111 mm[Hg] Karel Ghosh DO Work Phone: [facility] 01-26-2023 08:33-0400 Body temperature 97.5 [degF] Karel Ghosh DO Work Phone: [facility] 01-26-2023 08:33-0400 Respiratory rate 17 /min Karel Ghosh DO Work Phone: [facility] 01-26-2023 08:33-0400 SaO2% (BldA) [Mass fraction] 97 % Karel Ghosh DO Work Phone: [facility] 01-20-2023 16:13-0400 Body height 188 cm Karel Ghosh DO Work Phone: [facility] 01-20-2023 16:13-0400 Body mass index (BMI) [Ratio] 15.88 kg/m2 Karel Ghosh DO Work Phone: [facility] 01-20-2023 16:13-0400 Body weight 56.11 kg Karel Ghosh DO Work Phone: [facility] 01-05-2023 04:22-0400 Diastolic blood pressure 88 mm[Hg] Kee Mishra MD Work Phone: [facility] 01-05-2023 04:22-0400 Heart rate 90 /min Kee Mishra MD Work Phone: [employer] [facility] 01-05-2023 04:22-0400 Respiratory rate 17 /min Kee Mishra MD Work Phone: [facility] 01-05-2023 04:22-0400 SaO2% (BldA) [Mass fraction] 98 % Kee Mishra MD Work Phone: [facility] 01-05-2023 04:22-0400 Systolic blood pressure 147 mm[Hg] Kee Mishra MD Work Phone: [facility] 01-05-2023 01:35-0400 Body height 188 cm Kee Mishra MD Work Phone: [facility] 01-05-2023 01:35-0400 Body mass index (BMI) [Ratio] 20.54 kg/m2 Kee Mishra MD Work Phone: [facility] 01-05-2023 01:35-0400 Body weight 72.58 kg Kee Mishra MD Work Phone: [facility] 01-05-2023 01:15-0400 Body temperature 98.49 [degF] Kee Mishra MD Work Phone: [facility] Encounters Encounter Date Encounter Type Care Provider Facility Start: 08-18-2025 ambulatory Javy Ross ty:[facility] Start: 07-08-2025 ambulatory Javy Ross ty:[facility] Start: 04-21-2025 End: 04-21-2025 Telephone encounter Trae Deleon MD Work Phone: [facility] Clinical Communication Comment on above: Request For Order(s) ; Cancelled Appointment Start: 04-16-2025 ambulatory Javy Ross ty:[facility] Start: 04-15-2025 End: 04-15-2025 Postop follow up visit related to original px Joselito Liu PA-C Work Phone: [facility] Orthopedics [facility] Comment on above: Closed nondisplaced intertrochanteric fracture of right femur, initial encounter (HCC) (Primary Dx); S/P ORIF (open reduction internal fixation) fracture Start: 04-15-2025 End: 04-15-2025 [facility] Start: 04-07-2025 ambulatory Javy Ross ty:[facility] Start: 04-02-2025 End: 04-03-2025 Telephone encounter Trae Deleon MD Work Phone: [facility] Clinical Communication Comment on above: Other (IPO needs shraddha eduled) Start: 03-30-2025 End: 04-02-2025 Evaluation and management of inpatient Jj Lara MD Work Phone: [facility] Medical Surgical Unit MSU 1E Comment on above: Closed nondisplaced intertrochanteric fracture of right femur, initial encounter (HCC) (Primary Dx) Start: 03-03-2025 ambulatory Javy Lynn Sr. Facili ty:[facility] Start: 03-03-2025 [facility] Start: 03-02-2025 End: 03-02-[address] Javy Lynn Sr. DO Work Phone: [facility] Work Phone: Start: 03-02-2025 End: 03-02-2025 [facility]ed [facility] Start: 03-02-2025 Registered [facility] Start: 03-02-2025 End: 03-02-2025 ambulatory Javy Lynn Sr. Facility:[facility] Start: 02-17-2025 End: 02-17-[address] Javy Lynn Sr. DO Work Phone: [facility] Work Phone: Start: 02-17-2025 End: 02-17-2025 Departed [facility] Start: 02-17-2025 Registered Referred [facility] Start: 02-17-2025 End: 02-17-2025 ambulatory Javy REDDY Facility:[facility] Start: 02-12-2025 End: 02-12-[address] Javy Lynn Sr. DO Work Phone: [facility] Work Phone: Start: 02-12-2025 End: 02-12-2025 Departed Referred [facility] Start: 02-12-2025 End: 02-12-2025 ambulatory Javy REDDY Facility:[facility] Start: 02-11-2025 End: 02-11-2025 Departed Referred J[facility] Lynn MD [facility] Start: 02-11-2025 Registered Referred Javy Lynn MD [facility] Start: 02-11-2025 End: 02-11-2025 ambulatory Javy REDDY Facility:[facility] Start: 11-26-2024 ambulatory Javy REDDY Facili ty:[facility] Start: 11-26-2024 Registered [facility] Start: 11-07-2024 ambulatory Javy REDDY Facili ty:[facility] Start: 11-07-2024 Registered Referred [facility] -[facility] Start: 10-07-2024 End: 10-07-2024 ambulatory Javy REDDY Facility:[facility] Start: 09-17-2024 ambulatory Javy REDDY Facili ty:[facility] Start: 09-02-2024 End: 09-02-2024 ambulatory Javy REDDY Facility:[facility] Start: 08-27-2024 End: 08-27-2024 ambulatory Javy REDDY Facility:[facility] Start: 01-24-2024 End: 01-24-2024 ambulatory [facility] Work Phone: Start: 01-24-2024 End: 01-24-2024 Departed Referred [facility] Start: 01-24-2024 Registered Referred [facility] Start: 01-14-2024 End: 01-14-2024 ambulatory [facility] Work Phone: Start: 01-14-2024 End: 01-14-2024 Departed Referred [facility] Start: 12-25-2023 Registered Referred [facility] Start: 12-24-2023 Registered Referred [facility] Start: 12-19-2023 Registered Referred [facility] Start: 12-06-2023 End: 12-12-2023 Evaluation and management of inpatient Cody Lerma MD Work Phone: [facility] Cardiac Progressive Care Unit PCU 2E Comment on above: Pneumonia due to inf ectious organism, unspecified laterality, unspecified part of lung (Primary Dx); Sepsis, due to unspecified organism, unspecified whether acute organ dysfunction present (HCC); RSV (acute bronchiolitis due to respiratory syncytial virus) Start: 12-05-2023 End: 12-05-2023 ambulatory [facility] Work Phone: Start: 12-05-2023 End: 12-05-2023 Departed Referred [facility] Start: 11-02-2023 End: 11-02-2023 ambulatory [facility] Work Phone: Start: 11-02-2023 End: 11-02-2023 Departed Referred [facility] Start: 10-01-2023 Registered Referred [facility] Start: 09-25-2023 Registered Referred [facility] Start: 09-23-2023 End: 09-23-2023 Emergency department patient visit [facility]-Emergency Department Work Phone: Start: 09-10-2023 End: 09-19-2023 Evaluation and management of inpatient Bernard Phillips MD Work Phone: [facility] Medical Surgical Unit MSU 4S Comment on above: COVID-19 (Primary Dx ); Hypoxia; Edema of right upper arm; 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) Start: 01-17-2023 End: 01-26-2023 Emergency department patient visit Karel Ghosh DO Work Phone: [facility] 4S TELEMETRY Comment on above: Hyperosmolar hypergl ycemic state (HHS) (HCC) (Primary Dx) Start: 01-05-2023 End: 01-05-2023 Subsequent hospital visit by physician [facility] Exam Room [address] [facility] [address] Comment on above: Arrived Start: 01-05-2023 End: 01-05-2023 Emergency department patient visit Kee Mishra MD Work Phone: [facility] ED Comment on above: Fall from ground lev el (Primary Dx); Discharge of left eye Start: 03-01-2022 End: 03-06-2022 Evaluation and management of inpatient Dudley Cobb [facility] Procedures Date Procedure Procedure Detail Performing Clinician Start: 04-02-2025 Glucose quantitative blood xcpt reagent strip Antonio C Zay DO Work Phone: Start: 04-01-2025 Glucose quantitative blood xcpt reagent strip Antnoio C Zay DO Work Phone: Start: 04-01-2025 [...] on above: Performed By: #### L [id number] ####[employer]: GISSEL BABIN ([id number])[facility] ([facility])[address] Start: 03-31-2025 ABO and Rh group [...] 12-08-2023 Drug screen quantita tive vancomycin Kayleigh M Esterle DO Work Phone: Start: 12-07-2023 Glucose quantitative blood xcpt reagent strip Rai Ray MD Work Phone: Start: 12-07-2023 Glucose quantitative blood xcpt reagent strip Cody Lerma MD Work Phone: Start: 12-07-2023 Iaad ia mult step me thod nos each organism Rai Ray MD Work Phone: Start: 12-07-2023 End: 12-07-2023 Procalcitonin (pct) Rai Ray MD Work Phone: Start: 12-07-2023 Glucose quantitative blood xcpt reagent strip Cody Lerma MD Work Phone: Start: 12-07-2023 Urinalysis complete panel - Urine Kayleigh Stout DO Work Phone: Start: 12-07-2023 Urnls dip stick/tabl et reagent auto microscopy Cody Lerma MD Work Phone: Start: 12-07-2023 Assay of troponin quantitative Cody Lerma MD Work Phone: Start: 12-06-2023 Assay of troponin quantitative Cody Lerma MD Work Phone: Start: 12-06-2023 Ecg routine ecg w/le ast 12 lds trcg only w/o i&r Cody Lerma MD Work Phone: Start: 12-06-2023 SARS-COV-2, FLU A/B, AND RSV COMBO Cody Lerma MD Work Phone: Start: 12-06-2023 Ct angiography chest w/contrast/noncontrast Cody Lerma MD Work Phone: Start: 12-06-2023 Radiologic exam ches t single view Cody Lerma MD Work Phone: Start: 12-06-2023 Bacteria identified in Blood by Culture Cody Lerma MD Work Phone: Start: 12-06-2023 Comprehensive metabo lic panel Cody Lerma MD Work Phone: Start: 11-02-2023 Urine [...] 09-17-2023 Basic metabolic panel calcium total Kayleigh M Esterle DO Work Phone: Start: 09-16-2023 POCT GLUCOSE METER UNSOLICITED RESULTS Kayleigh M Esterle DO Work Phone: Start: 09-16-2023 Glucose quantitative blood xcpt reagent strip Kayleigh Alvaro Esterle DO Work Phone: Start: 09-15-2023 Glucose quantitative blood xcpt reagent strip Kayleigh Alvaro Esterle DO Work Phone: Start: 09-15-2023 Glucose quantitative blood xcpt reagent strip Kayleigh Alvaro Esterle DO Work Phone: Start: 09-14-2023 Glucose quantitative blood xcpt reagent strip Kayleigh Alvaro Esterle DO Work Phone: Start: 09-14-2023 Glucose quantitative blood xcpt reagent strip Kayleigh John Esterle DO Work Phone: Start: 09-14-2023 Glucose quantitative blood xcpt reagent strip Kayleigh Alvaro Esterle DO Work Phone: Start: 09-14-2023 Glucose quantitative blood xcpt reagent strip Kayleigh Alvaro Esterle DO Work Phone: Start: 09-14-2023 Blood count complete auto&auto difrntl wbc Kalpana León MD Work Phone: Start: 09-14-2023 C-reactive protein Sandy León MD Work Phone: Start: 09-13-2023 Glucose quantitative blood xcpt reagent strip Kayleigh Jhon Esterle DO Work Phone: Start: 09-13-2023 Urnls dip stick/tabl et reagent auto microscopy Kalpana León MD Work Phone: Start: 09-13-2023 Glucose quantitative blood xcpt reagent strip Kayleigh Alvaro Esterle DO Work Phone: Start: 09-13-2023 Glucose quantitative blood xcpt reagent strip Kayleigh Alvaro Esterle DO Work Phone: Start: 09-13-2023 Glucose quantitative blood xcpt reagent strip Kayleigh Alvaro Esterle DO Work Phone: Start: 09-13-2023 C-reactive protein Sandy León MD Work Phone: Start: 09-13-2023 Comprehensive metabo lic panel Kayleigh Stout DO Work Phone: Start: 09-12-2023 Glucose quantitative blood xcpt reagent strip Kayleigh Stout DO Work Phone: Start: 09-12-2023 C-reactive protein Sandy León MD Work Phone: Start: 09-12-2023 Comprehensive metabo lic panel Kayleigh Stout DO Work Phone: Start: 09-11-2023 Glucose quantitative blood xcpt reagent strip Kayleigh Stout DO Work Phone: Start: 09-11-2023 C-reactive protein [...] Start: 09-11-2023 Comprehensive metabo lic panel Kayleigh Stout DO Work Phone: Start: 09-11-2023 Smr prim src gram/gi emsa stain bct fungi/cell Kayleigh Stout DO Work Phone: Start: 09-10-2023 Radiologic exam ches t single view Bernard Phillips MD Work Phone: Start: 09-10-2023 Basic metabolic pane l calcium total Bernard Phillips MD Work Phone: Start: 09-10-2023 SARS-COV-2, FLU A/B, AND RSV COMBO Bernard Phillips MD Work Phone: Start: 09-10-2023 Ecg routine ecg w/le ast 12 lds trcg only w/o i&r Bernard Phillisp MD Work Phone: Start: 01-26-2023 Glucose quantitative [...] Basic metabolic pane l calcium total Kayleigh M Esterle DO Work [...] Detail Author Start: 06-22-2025 Influenza vaccination [facility] Start: 05-06-2025 End: 05-06-2025 Patient encounter procedure 05/06/2025 3:00 PM EDT Office Visit [facility] [address] [place] [address] [place] [address] Joselito Liu, PA-C [address] [place] [id number] [facility] Start: 04-28-2025 End: 05-22-2025 XR Femur - right 2 Views XR femur right 2+ views Imaging Routine Closed nondisplaced intertrochanteric fracture of right femur, initial encounter ([facility]) Expected: 04/28/2025, Expires: 05/22/2025 [facility] Work Phone: Comment on above: Expected: 04/28/2025 , Expires: 05/22/2025 Start: 10-22-2024 Medicare Advantage Annual Wellness Visit Medicare Advantage Annual Wellness Visit [facility] Start: 06-22-2024 COVID-19 Vaccine ( season) COVID-19 Vaccine ( season) [facility] Start: 09-23-2023 [facility] Start: 06-22-2023 COVID-19 Vaccine ( season) COVID-19 Vaccine ( season) [facility] Start: 06-22-2023 Influenza vaccination [facility] Start: 04-20-2023 Hemoglobin A1c measurement Diabetes: Hemoglobin A1C [facility] Start: 06-22-2022 Influenza vaccination Influenza Vacc ine (#1) [facility] Start: 06-01-2022 Hemoglobin A1c measurement Diabetes: Hemoglobin A1C [facility] Start: 05-06-2022 COVID-19 Vaccine (2 - Booster for Jadyn series) COVID-19 Vaccine (2 - Booster for Jadyn series) [facility] Start: 2010 RSV Immunization for Adults (1 - 1-dose 75+ series) RSV Immunization for Adults (1 - 1-dose 75+ series) [facility] Start: 1995 RSV Immunization age d 60 or older (1 - 1-dose 60+ series) RSV Immunization aged 60 or older (1 - 1-dose 60+ series) [facility] Start: 1985 Zoster Vaccines (1 o f 2) Zoster Vaccines (1 of 2) [facility] Start: 1954 DTaP/Tdap/Td Vaccine s (1 - Tdap) DTaP/Tdap/Td Vaccines (1 - Tdap) [facility] Start: 1954 Pneumococcal Vaccine : 50+ Years (1 of 2 - PCV) Pneumococcal Vaccine: 50+ Years (1 of 2 - PCV) [facility] Start: 1954 Urine screening for protein Diabetes: Urine Protein Screening [facility] Start: 1947 Depression Monitoring Depression Mon itoring [facility] Start: 1947 Depression Screening Depression Scre ening [facility] Start: 1945 Diabetic foot examination Diabetes: Foot Exam [facility] Start: 1945 Glaucoma screening Diabetes: R etinopathy Screening [facility] Start: 1945 Preventive dental service Diabetes: Dental Exam [facility] Start: 1941 Pneumococcal Vaccine : 65+ Years (1 - PCV) Pneumococcal Vaccine: 65+ Years (1 - PCV) [facility] Start: 1941 Pneumococcal Vaccine : 65+ Years (1 of 2 - PCV) Pneumococcal Vaccine: 65+ Years (1 of 2 - PCV) [facility] Start: 1935 Hepatitis B Vaccines (1 of 3 - 3-dose series) Hepatitis B Vaccines (1 of 3 - 3-dose series) [facility] Start: 1935 Lipid panel Lipid Panel [facility] Start: 1935 Medicare Advantage Annual Wellness Visit (AWV) Medicare Advantage Annual Wellness Visit (AWV) [facility] Start: 1935 Screening for osteoporosis Bone Density Scan [facility] End: 12-07-2023 Bacteria identified in Lower respiratory specimen by Aerobe culture Respiratory culture and Stain Microbiology Routine Once (Lab) for 1 Occurrences starting 12/07/2023 until 12/07/2023 [employer] [facility] Comment on above: Once (Lab) for 1 Occ urrences starting 12/07/2023 until 12/07/2023 Patient Education ED Head Injury (Adult) [facility] Work Phone: Patient referral [facility] Work Phone: End: 12-07-2023 Respiratory pathogens DNA and RNA panel - Lower respiratory specimen by LISANDRO with non-probe detection Pneumonia PCR Panel Microbiology Routine Once (Lab) for 1 Occurrences starting 12/07/2023 until 12/07/2023 [employer] [facility] Work Phone: Comment on above: Once (Lab) for 1 Occ urrences starting 12/07/2023 until 12/07/2023 End: 04-02-2025 RF videography Hypopharynx and Esophagus Views for swallowing function W speech and W barium contrast PO [employer] Work Phone: Comment on above: Once for 1 Occurrenc es starting 04/02/2025 until 04/02/2025 Immunizations Immunization Date Immunization Notes Care Provider Elinor hayward 09-11-2023 Influenza Vac A&B SA Adj quadrivalent (Fluad) vaccine 0.5 mL Bernard Phillips MD Work Phone: [employer] NEGATED: Highlighted row has not occurred!01-18-2023 Influenza,seasonal,sout [place],quad,preserv Free Karel Ghosh DO Work Phone: [employer] Comment on above: Deferred: Not availa ble from director labor standards Payers Date Payer Category Payer Self-pay 2021 Medicare A[employer]NA MEDICARE A DVANTAGE AETNA MEDICARE [id number] 2021-Present [address] [place] [phone] Medicare O [id number] 2021 Medicare O A[employer]NA MEDICARE M emb [id number] 2021 Private Health Insurance [facility] [id number] 1935 Unknown [id number] Medicare MEDICARE PART A B [id number] Private Health Insurance Unknown [id number]. 462 Unknown [id number] [id number]. 462 Unknown [id number] [id number]. 462 Unknown [id number] 2.16840.1.031902.3.579.2. 462 Unknown [id number] 2.16840.1.731866.3.579.2. 462 Unknown [id number] 2.16840.1.469112.3.579.2. 462 Unknown [id number] 2.16840.1.425183.3.579.2. 462 Unknown [id number] 2.16.840.1.969922.3.579.2. 462 Unknown [id number] 2.16.840.1.663720.3.579.2. 462 Unknown [id number] 2.16.840.1.767160.3.579.2. 462 Unknown [id number] 2.16.840.1.368800.3.579.2. 462 Unknown [id number] 2.16.840.1.672987.3.579.2. 462 Unknown [id number] 2.16.840.1.912759.3.579.2. 462 Unknown [id number] 2.16.840.1.184495.3.579.2. 462 Unknown [id number] [id number]. 462 Social History Date Type Detail Facility Start: 09-23-2023 Tobacco smoking status NHIS Never smoked tobacco [facility] Start: 01-05-2023 End: 04-02-2025 Alcohol intake Ex-drinker (finding) [facility] Start: 1935 Sex Assigned At Not on file [facility] Start: 12-26-2022 End: 01-17-2023 Exposure to SARS-CoV-2 (event) Not sure [facility] Start: 01-18-2023 History SDOH IPV Fear 2 [facility] Start: 09-11-2023 End: 12-07-2023 History of Social function [facility] Start: 09-11-2023 End: 12-07-2023 Humiliation, Afraid, Rape, and Kick questionnaire [HARK] [facility] Within the last year , have you been afraid of your partner or ex-partner? Patient refused [facility] How often to you hav e a drink containing alcohol? Never [facility] In the past 12 month s, was there a time when you were not able to pay the mortgage or rent on time? No [facility] Start: 01-18-2023 Sexual orientation Heterosexual (finding) [facility] Start: 09-23-2023 End: 09-23-2023 Tobacco smoking status NHIS Unknown if ever smoked [facility] Start: 1935 Sex Assigned At Male [facility] Start: 03-31-2025 Tobacco smoking status NHIS Ex-smoker [facility] History of tobacco use Current smoker [facility] History of tobacco use Cigarette Smoker [facility] Start: 03-31-2025 Tobacco use and exposure Smokeless tobacco non-user [facility] Start: 05-22-2022 Sex Male (finding) [facility] Medical Equipment Procedure Code Equipment Code Equipment Origin al Text Equipment Identifier Dates USE TO INJECT LA NTUS NIGHTLY [id number] Start: 03-06-2022 End: 03-06-2023 Nail Intertan 10 x440 125deg R - [id number] ()[id number], [id number] FDA Start: 03-31-2025 Set Bn 85mm 11mm 7mm Intertan - [id number] ()[id number], [id number] FDA Start: 03-31-2025 Screw Bn 5mm 42. 5mm Trgn Fem - [id number] ()[id number] [id number], [id number] FDA Start: 03-31-2025 Goals Date Patient Goal Desired Activity /State Personal health goal Functional Status Date Assessment Result Facility 01-25-2023 Are you deaf, or do you have serious difficulty hearing Yes 01/25/2023 11:47 AM Edis Rodriguez RN Yes [facility] 01-25-2023 Are you blind, or do you have serious difficulty seeing, even when wearing glasses Yes 01/25/2023 11:47 AM Edis Rodriguez RN Yes [facility] 01-25-2023 Do you have serious difficulty walking or climbing stairs Yes 01/25/2023 11:47 AM Edis Rodriguez RN Yes [facility] 01-25-2023 Do you have difficul ty dressing or bathing Yes 01/25/2023 11:47 AM Edis Rodriguez RN Yes [facility] 01-25-2023 Because of a physica l, mental, or emotional condition, do you have difficulty doing errands alone such as visiting a physician's office or shopping Yes 01/25/2023 11:47 AM EDT Edis Palomino RN Yes [facility] Mental Status Date Assessment Result Facility 01-25-2023 Because of a physica l, mental, or emotional condition, do you have serious difficulty concentrating, remembering, or making decisions Yes 01/25/2023 11:47 AM EDT Edis Palomino RN Yes [facility] Clinical Notes 03-06-2022 to 04-21-2025 Telephone Encounter - Eboni Jimenez LPN - 04/21/2025 2:57 PM EDTTelephone Encounter - Eboni Jimenez LPN - 04/21/2025 2:57 PM EDTAddendum Note - Eboni Jimenez LPN - 04/21/2025 2:56 PM EDTAttachments Note Date & Type Note Facility 04-21-2025 Telephone encounter Note Faxed orders to number provided. [facility] 04-21-2025 Miscellaneous Notes Faxed orders to [...] and wound care/post op as needed to [phone]. Thank you! DOS: 03/31/25 R ORIF documented in this encounter [facility] 04-21-2025 Note Addended by: EBONI JIMENEZ on: 04/21/2025 02:56 PM Modules accepted: Orders [facility] 04-21-2025 Note Addended by: EBONI JIMENEZ on: 04/21/2025 02:56 PM Modules accepted: Orders [facility] 04-21-2025 Note Addended by: EBONI JIMENEZ on: 04/21/2025 02:56 PM Modules accepted: Orders [facility] 04-21-2025 Telephone encounter Note Let me know what to send over. [facility] 04-21-2025 Telephone encounter Note Kerline calling due to family request to cancel in office appointment, due to it being difficult on the patient who is has advanced alzheimer's. IPO was cancelled per their request. Please fax orders for imaging and wound care/post op as needed to [phone]. Thank you! DOS: 03/31/25 R ORIF [facility] 04-15-2025 History of Presen t illness Narrative Images from the original note were not included. DOS: 03/31/25 Surgery: intertan nailing of right hip Surgeon: Victoriano 4 Week Follow-up Scheduled: Yes Called patient to check in at 2 week post-op jj. Patient did not answer, left a voice message stating to call our office or reach out via [employer] with further questions or concerns. We will plan on seeing them in office at the 4 week post-op visit. Joselito Liu PA-C Orthopedic Surgery Hip and Knee Reconstruction [facility] documented in this encounter [facility] 04-03-2025 Telephone encounter Note I called and spoke with the facility and got the patient scheduled for the appointment. The facility requested the [place] location. [facility] 04-03-2025 Miscellaneous Notes I called and spoke with the facility and got the patient scheduled for the appointment. The facility requested the [place] location. Name of Caller: Isa Contact Reason for Appointment: Facility calling to schedule IPO for Pt. Please call to schedule thank you. documented in this encounter [facility] 04-02-2025 Telephone encounter Note Name of Caller: Isa Contact Reason for Appointment: Facility calling to schedule IPO for Pt. Please call to schedule thank you. [facility] 04-02-2025 Nurse Note Reported called over the Apostolic to Carlotta. [facility] 04-02-2025 Nurse Note Reported called over the Apostolic to Carlotta. documented in this encounter [facility] 04-02-2025 Note Formatting of this n ote might be different from the original. Transport confirmed for 12 PM CM notified Kayleigh Jackelinemaddison via phone of transport time. [facility] 04-02-2025 Note Formatting of this n ote might be different from the original. Transport confirmed for 12 PM CM notified Kayleigh Viverosmaddison via phone of transport time. [facility] 04-02-2025 Miscellaneous Notes Transport confirmed for 12 PM CM notified Kayleigh Scott via phone of transport time. Confirmed pickup time of NOON by transport [employer] at phone number [phone]. Location of facility drop off is return back to [facility]. Facility notified via [facility]port, TCC notified on secure chat. Transport requested NOON in Roundtrip. Awaiting time confirmation. Discharge med list transmitted to TO RETURN BACK TO [facility] via Careport per TCC request. Careport response [...] at bedside. Confirmed pt has been at [facility] for 2 yrs and was at another [...] Documented Referral placed to RETURN BACK TO [facility] via Careport per TCC request. Await review and response regarding ability to accept. TCC notified. Problem: Potential for Falls Goal: I will remain free of falls Outcome: Progressing Problem: Safety Goal: I will remain free of falls Outcome: Progressing Problem: Daily Care Goal: Daily care needs are met Outcome: Progressing Care Management Progress Note Pts chart reviewed by BIANCA Pt admitted from [facility] resident s/p fall w acute femur fx. Orthopedic consult completed with radiology readings interpreted To OR for ORIF by Dr. Deleon 03/31/25. WBAT though 2/2 severe dementia unable to follow commands. Call by cm placed to Kayleigh Scott/daughter to discuss PLOF and dc plans. CM tasked STEREOTYPE MOLDER to place referral to [facility] for anticipated return. Call back number left for Daughter Kayleigh to return call. CM will contact again in the AM. DCP: Return to [facility] when stable. Length of Stay (Days): 2 [...] Procedure(s): Intertan nailing of right hip (CPT 48206) Surgeon: Trae Deleon M.D. Operational Test Mechanic(s): Verna PGY-I Anesthesia: Nerve Block and General [...] as well as medical complications such as ID, stroke, PE, DVT, and even . Patient [...] was impacted using the depth tower to mold finisher the depth of placement. The proximal femur [...] at this time documented in this encounter [facility] 04-02-2025 Note Formatting of this n ote might be different from the original. Confirmed pickup time of NOON by transport [employer] at phone number [phone]. Location of facility drop off is return back to [facility]. Facility notified via Careport, TCC notified on secure chat. [facility] 04-02-2025 Note Formatting of this n ote might be different from the original. Confirmed pickup time of NOON by transport [employer] at phone number [phone]. Location of facility drop off is return back to [facility]. Facility notified via Careport, TCC notified on secure chat. [facility] 04-02-2025 Note Formatting of this n ote might be different from the original. Transport requested NOON in Roundtrip. Awaiting time confirmation. [facility] 04-02-2025 Note Formatting of this n ote might be different from the original. Transport requested NOON in Roundtrip. Awaiting time confirmation. T [facility] 04-02-2025 Note Formatting of this n ote might be different from the original. Discharge med list transmitted to TO RETURN BACK TO [facility] via Careport per TCC request. T [facility] 04-02-2025 Note Formatting of this n ote might be different from the original. Discharge med list transmitted to TO RETURN BACK TO [facility] via Careport per TCC request. [facility] 04-02-2025 Note Formatting of this n ote might be different from the original. [facility]port response received from facility that pt may dc today and return ICF . Spoke w and DC orders placed and RON completed. CM tasked for transport and for dc PW MAR to be sent to facility. Dtr to be updated via phone of Transport time. [facility] 04-02-2025 Note Formatting of this n ote might be different from the original. [facility] response received from facility that pt may dc today and return ICF . Spoke cedric DRUMMOND and DC orders placed and RON completed. CM tasked for transport and for dc PW MAR to be sent to facility. Dtr to be updated via phone of Transport time. [facility] 04-02-2025 History of Presen t illness Narrative Images from the original note were not included. Speech-Language Pathology SPEECH LANGUAGE PATHOLOGY [facility] Modified Barium Swallow Study Patient Name: Tita Keith Evaluation Date: 04/02/2025 Date of : 1935 Admission Date: 03/30/2025 5:49 PM Age: 89 y.o. Room/Bed: B1155/[facility]155 A IMPRESSION: The patient presents with mild [...] solids and Thin liquids (continue trials with [employer] to determine benefit of mildly thick liquids) [...] effort. Pt would benefit from skilled acute [employer] services oropharyngeal strengthening trial and Formal instruction [...] Vellecular residuals with all-moderate thin, severe pudding, vsdhfrqf-yjwzot-imqpmy (difficulty to determine d/t unable to completely [...] intertrochanteric fracture of right femur, initial encounter ([facility]) 03/30/2025 Severe malnutrition ([facility]/HCC) ([facility]) 12/07/2023 Pneumonia due to infectious organism, unspecified laterality, unspecified part of lung 12/06/2023 Dementia without behavioral disturbance ([facility]) 09/17/2023 COVID-19 09/10/2023 Hyperglycemia 01/19/2023 Hyperosmolar hyperglycemic state (HHS) ([facility]) 01/17/2023 New onset type 2 diabetes mellitus (CMS/HCC) ([facility]) 03/01/2022 Pain: Pt denies any current pain. [...] as well as medical complications such as ID, stroke, PE, DVT, and even . Patient [...] Start: 04/01/25 Expected End: 04/15/25 Therapy Time [employer] Individual Minutes Time In: 0820 Time Out: [...] original note were not included. OCCUPATIONAL THERAPY [facility] Name/MRN: Tita Keith ([id number]) Date: 04/02/2025 Chart reviewed. Attempted to see [...] Tita Keith Date of : 1935 Acct: [id number] PCP: Marj Plasencia Date of Admission: 03/30/2025 [...] when clears PT -Ortho following, please page bus person dishwasher resident with questions or concerns. Judy Anderson 04/02/2025 Images from the original note were not included. PHYSICAL THERAPY [facility] Initial Evaluation Name/MRN: Tita Keith ([id number]) Evaluation Date: 04/01/2025 Date of : 1935 Admission Date: 03/30/2025 5:49 PM Age: 89 y.o. Room/Bed: B1-155/B1-155 A Discharge Recommendation: Fdc Facility Equipment Needed: No Assessment IMPRESSION: Patient [...] intertrochanteric fracture of right femur, initial encounter ([facility]) 03/30/2025 Severe malnutrition (CMS/HCC) ([facility]) 12/07/2023 Pneumonia due to infectious organism, unspecified laterality, unspecified part of lung 12/06/2023 Dementia without behavioral disturbance ([facility]) 09/17/2023 COVID-19 09/10/2023 Hyperglycemia 01/19/2023 Hyperosmolar hyperglycemic state (HHS) ([facility]) 01/17/2023 New onset type 2 diabetes mellitus (CMS/HCC) ([facility]) 03/01/2022 Medical Precautions: No active isolations Proper [...] Oriented to Person, Reports he is in [place] but unaware he is in the hospital. [...] Raw Score (No Stairs) : 5 JH-HLM -M Score: Static standing (1 or more minutes) [...] of Care supervision is transferred to a [facility] Physical Therapist. Goals and/or treatment plan was established in collaboration with patient/family/other representatives. [1] Past Medical History: Diagnosis Date Awareness under anesthesia lateral Benign prostatic hyperplasia Cataract Dementia (HCC) Diabetes mellitus (HCC) Dysphagia Hyperlipidemia Hypertension Major depressive disorder [2] Past Surgical History: Procedure Laterality Date BACK SURGERY ORIF FEMUR FRACTURE Right 03/31/2025 with intramedullary implant insertion Speech-Language Pathology SPEECH LANGUAGE PATHOLOGY [facility] Bedside Swallow Evaluation Patient Name: Tita Keith Evaluation Date: 04/01/2025 Date of : 1935 Admission Date: 03/30/2025 5:49 PM Age: 89 y.o. Room/Bed: B1155/B1-155 A IMPRESSION: S/s oropharyngeal dysphagia. + overt [...] required. Pt would benefit from skilled acute [employer] services to determine the safest route and [...] Visitors at bedside - daughter. Spoke with RN Mar who cleared pt to be evaluated. RN stated that pt coughed on water earlier in the morning. Dysphagia History: Retrospective chart review revealed a history of J[employer] SAL[employer]OCIATE services as follows: 01/18/23-09/19/23. Pt demonstrated prolonged [...] vallecular residuals with moderate thin, severe pudding, ersdpsgv-rcwlbz-cmsnqw. Transient spillage accumulating in laryngeal vestibule with [...] intertrochanteric fracture of right femur, initial encounter ([facility]) 03/30/2025 Severe malnutrition ([facility]) ([facility]) 12/07/2023 Pneumonia due to infectious organism, unspecified laterality, unspecified part of lung 12/06/2023 Dementia without behavioral disturbance ([facility]) 09/17/2023 COVID-19 09/10/2023 Hyperglycemia 01/19/2023 Hyperosmolar hyperglycemic state (HHS) ([facility]) 01/17/2023 New onset type 2 diabetes mellitus ([facility]) ([facility]) 03/01/2022 History of Present Illness: Patient Complaint: None stated. Pain: Pt denies any current pain. PPE Worn: gloves Objective Bedside swallow eval completed. Oral Motor Mechanism Facial Movement (CN VII) - Generalized weakness Labial Structure/Function (CN VII) - Reduced retraction, Reduced protrusion, Generalized weakness Lingual Structure/Function (CN XII) - Generalized weakness, reduced elevation and depression, reduced lateralization (kqyt-gt-egur tongue movement) Velopharyngeal Structure/Function (CN X & [...] Start: 04/01/25 Expected End: 04/15/25 Therapy Time [employer] SALES ASSOCIATE Individual Minutes Time In: 1030 Time Out: 1049 Minutes: 19 Lexi Reynolds J[employer]ELRY SALES ASSOCIATE Graduate Clinician [1] Past Medical History: Diagnosis [...] diabetes, hypertension, hyperlipidemia. [facility] from [facility] he [facility] to ED status post [...] exists for component: LABALBU PT/INR: Recent Labs 03/31/25 0314 PROTIME 10.9 INR 1.0 CARDIAC ENZYMES: No [...] Antonio Cardona DO Division of Hospitalist Medicine [facility] [1] Past Medical History: Diagnosis [...] original note were not included. 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 Subjective: Patient [...] diabetes, hypertension, hyperlipidemia. Patient was sent from [facility] ([facility] he [facility] to ED status post [...] Intake/Output Summary (Last 24 hours) at 03/31/2025 0840 Last data filed at 03/31/2025 0626 Gross [...] DO Division of Hospitalist Medicine [employer] [1] Past Medical History: Diagnosis Date Dementia [...] medicine -Consent obtained over phone from Kayleigh Mendez, [facility] power of state attorney -Pre-op workup complete -Ice -APS consulted -Bedrest -Admit to medicine -Pain control & medical management per primary -Please hold DVT prophylaxis in anticipation of OR -Please comment on clearance in case of OR, page ortho bus person dishwasher with clearance status documented in this encounter [facility] 04-02-2025 Note Hospitalist Discharg e Summary Tita Keith : 1935 Admit date: 03/30/2025 Discharge date: 04/02/2025 Admitting Physician: Shay Velazco MD Primary Care Physician: Marj Plasencia Visit Status: inpatient Code Status: DNR-CCA BRIEF HOSPITAL COURSE: 89 y.o. male with PMHx of severe dementia (Aox0-1), type 2 diabetes, hypertension, hyperlipidemia. Patient was sent from [facility] (where he [facility] to ED status post fall. XR showed right proximal femur intertrochanteric fracture. Patient is disoriented and unable to provide any history. Orthopedic surgery completed successful ORIF with right hip cephalomedullary nail on 03/31 without complications. Patient was slated for SNF per PT and OT; patient is to return [facility] [place] [facility]. Acute, acute on chronic, [...] on a dysphagia diet at the facility J[employer] SALES ASSOCIATE recommended MBS This is currently pending, will [...] or doctor a (more content not included)... [facility] 04-02-2025 Hospital course Narrative Hospitalist Discharge Summary Tita Keith : 1935 Admit date: 03/30/2025 Discharge date: 04/02/2025 Admitting Physician: Shay Velazco MD Primary Care Physician: Marj Plasencia Visit Status: inpatient Code Status: DNR-CCA BRIEF HOSPITAL COURSE: 89 y.o. male with PMHx of severe dementia (Aox0-1), type 2 diabetes, hypertension, hyperlipidemia. Patient was sent from [facility] ([facility] he [facility] to ED status post fall. XR showed right proximal femur intertrochanteric fracture. Patient is disoriented and unable to provide any history. Orthopedic surgery completed successful ORIF with right hip cephalomedullary nail on 03/31 without complications. Patient was slated for SNF per PT and OT; [facility]. Acute, acute on chronic, [...] on a dysphagia diet at the facility JEWELRY SALES ASSOCIATE recommended MBS This is currently pending, will [...] mild tenderness to palpation LABS: Recent Labs 03/31/2531303/31/25 1031 04/01/25 0821 NA 139 137 141 K 4.4 4.2 5.0 CL 103 102 103 CO2 26 27 27 BUN 35* 30* 30* CREATININE 1.33* 1.22 1.35* GLUCOSE 295* 299* 308* CALCIUM 9.0 9.1 9.3 Recent Labs 03/31/2531303/31/25 1031 04/01/25 0821 WBC [...] EC tablet Recommended Follow-up: Trae Deleon MD [address] [place] [address] Follow up Complexity of Follow up: [] Moderate Complexity: follow up within 7-14 calendar days (39912) [x] Severe Complexity: follow up within 7 calendar days (69940) Follow up Testing, Pending results or Referrals [...] Antonio Cardona DO Division of Hospitalist Medicine [facility] 04/02/2025, 9:32 AM [1] Past Medical History: Diagnosis Date Awareness under anesthesia lateral Benign prostatic hyperplasia Cataract Dementia (HCC) Diabetes mellitus (HCC) Dysphagia Hyperlipidemia Hypertension Major depressive disorder documented in this encounter [facility] 04-02-2025 Note Formatting of this n ote might be different from the original. Care Management Progress Note Pt's chart reviewed. Received call back from pt's daughter who is in pt's room. CM met with family member at bedside. Confirmed pt has been at [facility] for 2 yrs and was at another [...] (Days): 3 GMLOS: No GMLOS Documented T [facility] 04-02-2025 Note Formatting of this n ote might be different from the original. Care Management Progress Note Pt's chart reviewed. Received call back from pt's daughter who is in pt's room. CM met with family member at bedside. Confirmed pt has been at [facility] for 2 yrs and was at another [...] (Days): 3 GMLOS: No GMLOS Documented T [facility] 04-02-2025 Note Care Management Prog ress Note Pt's chart reviewed. Received call back from pt's daughter who is in pt's room. CM met with family member at bedside. Confirmed pt has been at [facility] for 2 yrs and was at another [...] Stay (Days): 3 GMLOS: No GMLOS Documented [facility] 04-02-2025 Note Formatting of this n ote might be different from the original. Referral placed to RETURN BACK TO [facility] via Careport per TCC request. Await review and response regarding ability to accept. TCC notified. T [facility] 04-02-2025 Note Formatting of this n ote might be different from the original. Referral placed to [facility] via [facility] per TCC request. Await review and response regarding ability to accept. TCC notified. [facility] 04-02-2025 Note Referral placed to R ETURN BACK TO [facility] via [facility] per TCC request. Await review and response regarding ability to accept. TCC notified. 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 Judy Anderson 04/02/2025 [facility] 04-02-2025 Note Problem: Potential f or Falls Goal: I will remain free of falls Outcome: Progressing Problem: Safety Goal: I will remain free of falls Outcome: Progressing Problem: Daily Care Goal: Daily care needs are met Outcome: Progressing [facility] 04-02-2025 Plan of care note Problem: Potential for Falls Goal: I will remain free of falls Outcome: Progressing Problem: Safety Goal: I will remain free of falls Outcome: Progressing Problem: Daily Care Goal: Daily care needs are met Outcome: Progressing [facility] 04-01-2025 Note Formatting of this n ote might be different from the original. Care Management Progress Note Pts chart reviewed by CM Pt admitted from [facility] resident s/p fall w acute femur fx. Orthopedic consult completed with radiology readings interpreted To OR for ORIF by Dr. Deleon 03/31/25. WBAT though 2/2 severe dementia unable to follow commands. Call by cm placed to Kayleigh Scott/daughter to discuss PLOF and dc plans. CM tasked STEREOTYPE MOLDER to place referral to [facility] for anticipated return. Call back number left for Daughter Kayleigh to return call. CM will contact again in the AM. DCP: Return to [facility] when stable. Length of Stay (Days): 2 GMLOS: No GMLOS Documented [facility] 04-01-2025 Note Formatting of this n ote might be different from the original. Care Management Progress Note Pts chart reviewed by BIANCA Pt admitted from [facility] resident s/p fall w acute femur fx. Orthopedic consult completed with radiology readings interpreted To OR for ORIF by Dr. Deleon 03/31/25. WBAT though 2/2 severe dementia unable to follow commands. Call by cm placed to Kayleigh Scott/daughter to discuss PLOF and dc plans. CM tasked STEREOTYPE MOLDER to place referral to [facility] for anticipated return. Call back number left for Daughter Kayleigh to return call. CM will contact again in the AM. DCP: Return to [facility] when stable. Length of Stay (Days): 2 GMLOS: No GMLOS Documented T [facility] 04-01-2025 Note Care Management Prog ress Note Pts chart reviewed by BIANCA Pt admitted from [facility] resident s/p fall w acute femur fx. Orthopedic consult completed with radiology readings interpreted To OR for ORIF by Dr. Deleon 03/31/25. WBAT though 2/2 severe dementia unable to follow commands. Call by cm placed to Kayleigh Scott/daughter to discuss PLOF and dc plans. CM tasked STEREOTYPE MOLDER to place referral to [facility] for anticipated return. Call back number left for Daughter Kayleigh to return call. CM will contact again in the AM. DCP: Return to [facility] when stable. Length of Stay (Days): 2 GMLOS: No GMLOS Documented [facility] 04-01-2025 Note PHYSICAL THERAPY [facility] Initial Evaluation Name/MRN: Tita Keith ([id number]) Evaluation Date: 04/01/2025 Date of : 1935 Admission Date: 03/30/2025 5:49 PM Age: 89 y.o. Room/Bed: B1-155/B1-155 A Discharge Recommendation: Fdc Facility Equipment Needed: No Assessment IMPRESSION: Patient [...] intertrochanteric fracture of right femur, initial encounter ([facility]) 03/30/2025 Severe malnutrition ([facility]) ([facility]) 12/07/2023 Pneumonia due to infectious organism, unspecified laterality, unspecified part of lung 12/06/2023 Dementia without behavioral disturbance ([facility]) 09/17/2023 COVID-19 09/10/2023 Hyperglycemia 01/19/2023 Hyperosmolar hyperglycemic state (HHS) ([facility]) 01/17/2023 New onset type 2 diabetes mellitus ([facility]) ([facility]) 03/01/2022 Medical Precautions: No active isolations Proper [...] Oriented to Person, Reports he is in [place] but unaware he is in the hospital. [...] initial 25% the (more content not included)... [facility] 04-01-2025 Note Hospitalist Progress Note 04/01/2025 Subjective: Admit Date: 03/30/2025 PCP: Marj Plasencia Room#: B1-155/B1-155 A BRIEF HOSPITAL COURSE: 89 y.o. male with PMHx of severe dementia (Aox0-1), type 2 diabetes, hypertension, hyperlipidemia. [facility] to ED status post [...] Extended Emergency Contact Information Primary Emergency Contact: KristinamarielleKayleigh lester Mobile Relation: Child Secondary Emergency Contact: Mike Keith Mobile Relation: Child Antonio Cardona DO Division of Hospitalist Medicine [facility] [1] Past Medical History: Diagnosis Date Awareness under anesthesia lateral Benign prostatic hyperplasia Cataract Dementia (HCC) Diabetes mellitus (HCC) Dysphagia Hyperlipidemia Hypertension Major depressive disorder [2] cholec (more content not included)... [facility] 04-01-2025 Note Problem: Potential f or Compromised Skin Integrity Goal: Skin Integrity is Maintained or Improved Outcome: Progressing Problem: Urinary Incontinence Goal: Perineal skin integrity is maintained or improved Outcome: Progressing [facility] 04-01-2025 Plan of care note Problem: Potential for Compromised Skin Integrity Goal: Skin Integrity is Maintained or Improved Outcome: Progressing Problem: Urinary Incontinence Goal: Perineal skin integrity is maintained or improved Outcome: Progressing [facility] 03-31-2025 Note Problem: Potential f or Falls Goal: I will remain free of falls Outcome: Progressing Problem: Pain Goal: My pain/discomfort is manageable Outcome: Progressing [facility] 03-31-2025 Plan of care note Problem: Potential for Falls Goal: I will remain free of falls Outcome: Progressing Problem: Pain Goal: My pain/discomfort is manageable Outcome: Progressing [facility] 03-31-2025 Hospital Discharg e instructions Antonio [...] Unit/Room#: B1-155/B1-155 A Discharging Unit Phone Number: [phone] Emergency Contact: Extended Emergency Contact Information Primary [...] intertrochanteric fracture of right femur, initial encounter ([facility]) New onset type 2 diabetes mellitus (CMS/HCC) (HCC) Hyperosmolar hyperglycemic state (HHS) (HCC) Hyperglycemia Severe malnutrition (CMS/HCC) ([facility]) (Chronic) COVID-19 Dementia without behavioral disturbance ([facility]) Pneumonia due to infectious organism, unspecified laterality, [...] assistance Toileting Total assistance Feeding Minimal assistance 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 Teacher Minimal assistance Med Delivery yes Wound Care [...] output data in the 24 hours ending 04/02/25 0923 I/O last 3 completed shifts: In: - [...] Status Date: Discharging to Facility/ Agency Name: [facility] Address: [address] [place] [address] Fax: Fur Ironer/Board Finisher signature: ICIAN SECTION Name: Tita Keith Prognosis: poor Condition at Discharge: stable Rehab Potential (if transferring to Rehab): poor Recommended Labs or Other Treatments After Discharge: The individual is being admitted to a nursing facility directly from an [facility] or a unit of a [facility] that is not operated by or licensed by [facility] under section 5119.14 or 5160-3-15.1 5 The individual requires the level of services provided by a nursing facility for the condition for which he or she was treated in the hospital and, Physician Certification: I certify the above information and transfer of Tita Keith is necessary for the continuing treatment of the diagnosis listed and that he requires fdc facility for less than 30 days. Update Admission H&P: No change in H&P PHYSICIAN SIGNATURE: documented in this encounter [facility] 03-31-2025 Note Patient: Tita coates Procedure Summary Date: 03/31/25 Room / Location: [address] Operating Room Anesthesia Start: 1445 Anesthesia Stop: 165 Procedure: RIGHT ORIF, FRACTURE, FEMUR, INTERTROCHANTERIC, WITH INTRAMEDULLARY IMPLANT INSERTION (Right: Hip) Diagnosis: Closed nondisplaced intertrochanteric fracture of right femur, initial encounter ([facility]) Surgeons: Trae Deleon MD Responsible Provider: Jayden [...] factors for PONV (4556F) Patient received at aset 2 prophylactic Rx PONV anti-emtic agents of [...] opportunity for questions and acknowledgement of understanding. [facility] 03-31-2025 Note Patient: Tita coates Procedure Summary Date: 03/31/25 Room / Location: [address] Operating Room Anesthesia Start: 1445 Anesthesia Stop: 1650 Procedure: RIGHT ORIF, FRACTURE, FEMUR, INTERTROCHANTERIC, WITH INTRAMEDULLARY IMPLANT INSERTION (Right: Hip) Diagnosis: Closed nondisplaced intertrochanteric fracture of right femur, initial encounter ([facility]) Surgeons: Trae Deleon MD Responsible Provider: Jayden [...] once all PACU criteria has been met. [facility] 03-31-2025 Note Airway Date/Time: 03/31/2025 2:47 PM Reason: emergent General Information and Staff Patient location during procedure: Procedural Resident/TETRYL BLENDER OPERATOR: Jj Barakat RUG SHAMPOOER - TETRYL BLENDER OPERATOR Performed: SRNA Patient Condition Indications for airway management: anesthesia Patient position: sniffing Sedation level: Asleep Final Airway Details Preoxygenated: yes Final airway type: supraglottic airway Successful airway: Igel Size: 4 ETT size (mm): 7.5 Number of attempts at approach: 1 [facility] 03-31-2025 Procedure note Images from the original note were not included. Operative Report Patient Name: Tita Keith Date of : 1935 Date of Surgery: 03/31/25 Pre-operative diagnosis: Right peritrochanteric femur fracture Post-operative diagnosis: Same Procedure(s): Intertan nailing of right hip (CPT 36808) Surgeon: Trae Deleon M.D. Operational Test Mechanic(s): Verna PGY-I Anesthesia: Nerve Block and General [...] as well as medical complications such as ID, stroke, PE, DVT, and even . Patient [...] was impacted using the depth tower to mold finisher the depth of placement. The proximal femur [...] Trae Deleon MD at 03/31/25, 8:18 PM [employer] Phone: 03-31-2025 Note Peripheral Block Time Out: 03/31/2025 1:58 PM Patient location during procedure: pre-op Start time: 03/31/2025 1:58 PM End time: 03/31/2025 2:03 PM Reason for block: at surgeon's request and post-op pain management Staffing Performed: TETRYL BLENDER OPERATOR Resident/TETRYL BLENDER OPERATOR: Martin Leonard APRN - ANN MARIE Preanesthetic Checklist Completed: patient identified, IV checked, [...] No paresthesias reported by patient during injectionMedications jvrGXPFSzaltu-byzeuirtyno-voxcsjc rine (TAP) syringe - Injection 30 mL - 03/31/2025 1:58:00 PM [facility] 03-31-2025 Nurse Note Pt bgl 277. Dr ngo notified and insulin order placed at this time [facility] 03-31-2025 Note Patient: Tita coates Procedure Information Date/Time: 03/31/25 1230 Procedure: RIGHT ORIF, FRACTURE, FEMUR, INTERTROCHANTERIC, WITH INTRAMEDULLARY IMPLANT INSERTION (Right: Hip) Location: [address] Operating Room Surgeons: Trae Deleon MD Relevant [...] Onset Heart attack Mother Heart failure Father [facility] 03-31-2025 Consult note Associated Order (s): IP CONSULT TO ORTHOPAEDIC SURGERY Please see previously dictated consult note Cosigned by Trae Deleon MD at 03/31/2025 1:38 PM EDT [facility] Myla Work Phone: 03-31-2025 Consult note Associated Order (s): IP CONSULT TO ORTHOPAEDIC SURGERY Please see previously dictated consult note Cosigned by Trae Deleon MD at 03/31/2025 1:38 PM EDT Associated Order(s): IP CONSULT TO ORTHOPAEDIC SURGERY Ortho Consult Patient: Tita Keith Date of : 1935 Acct: [id number] PCP: Marj Plasencia Date of Admission: 03/30/2025 [...] under the skin Nightly. 12/12/23 12/11/24 Ruiz Barun MD lisinopril 20 MG tablet Take 20 [...] -Consent obtained over phone from Kayleigh Mendez [facility] power of state attorney -Pre-op workup complete -Ice -APS consulted -Bedrest -Admit to medicine -Pain control & medical management per primary -Please hold DVT prophylaxis in anticipation of OR -Please comment on clearance in case of OR, page ortho bus person dishwasher with clearance status Jay Rodriguez MD Orthopaedic [...] as necessary. I discussed patient concerns with Judtih Newell and instructions were given. Please see our orders for the updated patient care plan. Risks of fracture surgery in general were reviewed including, but not limited to, infection, non-union, need for additional procedures, painful or prominent hardware which could require additional surgery, failure of fixation which would require revision, damage to normal structures, as well as medical complications such as ID, stroke, PE, DVT, and even . Patient/family was given opportunity to ask questions and consider his options. They ultimately elected to proceed with surgery. No guarantees were stated or implied. documented in this encounter [facility] 03-31-2025 Note Hospitalist Progress Note 03/31/2025 Subjective: Admit Date: 03/30/2025 PCP: Marj Plasencia Room#: BRIEF HOSPITAL COURSE: 89 y.o. male with PMHx of severe dementia (Aox0-1), type 2 diabetes, hypertension, hyperlipidemia. Patient was sent from [facility] (where he lives) to ED status post [...] History[1] LABS: CBC: Recent Labs 03/31/25 0314 WBC 6.8 RBC 3.76* HGB 11.4* HCT 33.7* MCV 89.6 RDW 12.7 PLT 120* BMP: Recent Labs 03/31/25 0314 NA 139 K 4.4 CL 103 CO2 26 BUN 35* CREATININE 1.33* GLUCOSE 295* CALCIUM 9.0 ANIONGAP 10 LIVER PROFILE:No results for input(s): "AST", "ALT", "BILITOT", "ALKPHOS", "PROT" in the last 72 hours. No lab exists for component: LABALBU PT/INR: Recent Labs 03/31/25 0314 PROTIME 10.9 INR 1.0 CARDIAC ENZYMES: No [...] Antonio Cardona DO Division of Hospitalist Medicine [facility] [1] Past Medical History: Diagnosis Date Dementia (HCC) Diabetes mellitus (HCC) Hyperlipidemia Hypertension [2] [3] [4] dextrose 5 % and sodium chloride 0.45 %, 75 mL/hr, Last Rate: 75 mL/hr (03/31/25 0141) [facility] 03-31-2025 Emergency department Note Patient was incontinent of stool. Cleaned up and silverio placed as ordered. Patient repositioned to comfort. Confused to situation and date. [facility] 03-31-2025 Emergency department Note Patient was incontinent of stool. Cleaned up and silverio placed as ordered. Patient repositioned to comfort. Confused to situation and date. EMERGENCY DEPARTMENT ENCOUNTER Pt Name: Tita Keith Birthdate 1935 Date of evaluation: 03/30/2025 ED Provider: jJ Lara MD CHIEF COMPLAINT Chief Complaint Patient presents with Fall Pt had a fall last night at [facility]. [facility] performed an X-Ray that shows a [...] with other clinicians: Admitting team hospitalist and Front Maker Lockstitch orthopedic resident Admission Criteria: The patient needs [...] intertrochanteric fracture of right femur, initial encounter ([facility]) DISPOSITION Admit 03/30/2025 08:00:24 PM PATIENT REFERRED [...] Lara MD 03/30/251999 documented in this encounter [facility] 03-30-2025 Consult note Associated Order (s): IP CONSULT TO ORTHOPAEDIC SURGERY Ortho Consult Patient: Tita Keith Date of : 1935 Acct: [id number] PCP: Marj Plasencia Date of Admission: 03/30/2025 [...] as needed for severe pain (7-10). Historical Provider QUEtiapine (SEROquel) 25 MG tablet Take 0.5 [...] -Consent obtained over phone from Kayleigh Mendez [facility] power of state attorney -Pre-op workup complete -Ice -APS consulted -Bedrest -Admit to medicine -Pain control & medical management per primary -Please hold DVT prophylaxis in anticipation of OR -Please comment on clearance in case of OR, page ortho bus person dishwasher with clearance status Jay Rodriguez MD Orthopaedic [...] as necessary. I discussed patient concerns with iTta's R.N. and instructions were given. Please see our orders for the updated patient care plan. Risks of fracture surgery in general were reviewed including, but not limited to, infection, non-union, need for additional procedures, painful or prominent hardware which could require additional surgery, failure of fixation which would require revision, damage to normal structures, as well as medical complications such as ID, stroke, PE, DVT, and even . Patient/family was given opportunity to ask questions and consider his options. They ultimately elected to proceed with surgery. No guarantees were stated or implied. [facility] 03-30-2025 History and physical note Attending [...] home Accu-Cheks ACHS with sliding scale coverage drug abuse social worker consult - delirium precautions: limit nighttime disturbances - DVT prophylaxis: enoxaparin Complexity: Acute illness with systemic symptoms (MOD). Risk: Admission to hospital-level care was considered or occurred (HIGH). Advance Directive: Prior Anticipated Discharge - Date - 04/01/2025 - Location [facility] (Non-Skilled) - Pending the following [...] - DO NOT do CPR, intubation] [_] [DNR-OPERATIONS LOGISTICS ANALYST - Comfort care only] [_] DNR form [...] Shay Velazco MD Division of Hospitalist Medicine [facility] [1] Past Medical History: Diagnosis Date Dementia [...] Disp: , Rfl: [5] No Known Allergies [employer] Phone: 03-30-2025 Note Attending History an d [...] ordered by anot (more content not included)... [facility] 03-30-2025 History and physical note Attending [...] home Accu-Cheks ACHS with sliding scale coverage drug abuse social worker consult - delirium precautions: limit nighttime disturbances - DVT prophylaxis: enoxaparin Complexity: Acute illness with systemic symptoms (MOD). Risk: Admission to hospital-level care was considered or occurred (HIGH). Advance Directive: Prior Anticipated Discharge - Date - 04/01/2025 - Location - [facility] (Non-Skilled) - Pending the following [...] Keith : 1935 Primary Care Physician: Marj Plasenica The patient and/or family/surrogate voluntarily agreed to participate in ACP services. Patient s cognitive capacity: Alert, Orientedx3 Code Status: [_] [FULL CODE - Continue all advanced life support: CPR,intubation,invasive procedures] [x_] [DNR-CCA - DO NOT do CPR, intubation] [_] [DNR-OPERATIONS LOGISTICS ANALYST - Comfort care only] [_] DNR form [...] Shay Velazco MD Division of Hospitalist Medicine [facility] [1] Past Medical History: Diagnosis Date Dementia [...] No Known Allergies documented in this encounter [facility] 03-30-2025 Physician Emergency department Note EMERGENCY DEPARTMENT ENCOUNTER Pt Name: Tita Keith Birthdate 1935 Date of evaluation: 03/30/2025 ED Provider: Jj Lara MD CHIEF COMPLAINT Chief Complaint Patient presents with Fall Pt had a fall last night at [facility]. [facility] performed an X-Ray that shows a [...] right intertrochanteric fracture Diagnostics interpreted by me: Xrjennifer(s) right intertrochanteric fracture Discussions with other clinicians: Admitting team hospitalist and Front Maker Lockstitch orthopedic resident Admission Criteria: The patient needs [...] Last Year: No Jj Lara MD 03/30/251999 [facility] 12-12-2023 History of Presen t illness Narrative Patients daughter was informed that the patient is set up for transfer to [facility] at 1:00pm. Report was called to [facility]. They were notified of cotton picking machine operator time of 1300. They did request a covid test before discharge. Will contact Dr Braun for an order and obtain prior to leaving. Images from the original note were not included. OCCUPATIONAL THERAPY [facility] Treatment Note Name/MRN: Tita Keith ([id number]) Date of : 1935 Age: 88 y.o. Room/Bed: B2-260/B2-260 A Visit #: 2 out of 7 visits Discharge Recommendation: Fdc Facility Equipment Needed: No Prior Level of [...] max assist to start pants and then farmworker pullet farm hips. Fair tolerance. Bed Mobility Supine to sit: Max Assist Sit to supine: Mod Assist Transfers/Mobility Sit to stand: Max Assist Stand to sit: Mod Assist Sitting balance: SBA Standing balance: Min Assist Functional mobility: Mod Assist Once standing at the [facility], pt was able to stand for a [...] Memory: decreased short term memory and decreased shelter memory - Safety judgement: decreased awareness of [...] from the original note were not included. [facility] - Infectious Diseases SLAT BASKET MAKER MACHINE Progress Note Subjective: Following for pneumococcal pneumonia [...] -- -- 86 18 94 % -- 12/11/23 2021 149/91 36.9 C (98.5 F) Temporal 82 [...] standpoint. Carola Raines NP Student 11:51am 12/12/23 [facility] Infectious Disease Advance Practice Provider Note Patient seen and evaluated with BUGGY MAN student. I performed/re-performed a history and physical [...] clinically Improved. Plans to discharge back to [facility] today. Based on diagnoses and management, combination of acute and chronic problems, exacerbations and/or acuity, this visit should be considered to be of moderate complexity. Nusrat Conde CNP [facility] - Infectious Diseases 2:10 PM 12/12/2023 Nutrition Assessment Type and Reason for Visit: Reassess Nutrition Recommendations/Plan: Continue with Adult diet Dysphagia - Minced and Moist; 5 carb choices (75 gm/meal); No Drinking Straws Monitor need to consult JEWELRY SALES ASSOCIATE. Pt currently denies any further deficits, but [...] (interosseous), Scapula (trapezius) Fluid Accumulation: Mild Extremities Laundrette Owner Strength: Not Performed Nutrition Assessment: Pt is [...] (kg): 56 kg Total Energy Requirements (kcals/day): 9072-7737 kcals (30-35 kcals/kg) Weight Used for Protein [...] at facility) % Weight Change (Calculated): -3.1 Holden Body Weight (lbs) (Calculated): 190 lbs Holden Body Weight (Kg) (Calculated): 86 kg % Holden Body Weight (Calculated): 68.2 % BMI (kg/m2) [...] Oral Nutrition Supplement Dian Tipton RD Contact: *[phone] or via Secure Chat Images from the original note were not included. Hospitalist Progress Note 12/11/2023 Subjective: Admit Date: 12/06/2023 PCP: Marj Plasencia Room#: B2-260/B2260 A Brief Hospital course: Interval History: Alert, [...] Hyperlipidemia Hypertension LABS: CBC: Recent Labs 12/09/23 0407 12/10/23 0348 12/11/23 [...] Ruiz Braun MD Division of Hospitalist Medicine [facility] Images from the original note were not included. [facility] - Infectious Diseases SLAT BASKET MAKER MACHINE Progress Note Subjective: Following for pneumococcal pneumonia [...] follow; plan d/w Dr. Favian Conde CNP [facility] - Infectious Diseases 10:58 AM 12/11/2023 Based on diagnoses and management, combination of acute and chronic problems, exacerbations and/or acuity, this visit should be considered to be of moderate complexity. Images from the original note were not included. Hospitalist Progress Note 12/10/[id number]: Please secure chat me for patient care issues. [phone]: Please secure chat [facility] Hospitalist for any issues. Subjective: Admit Date: 12/06/2023 PCP: Marj Plasencia Room#: B2-260/B2260 A Brief History: Patient is 88-year-old gentleman [...] carb choices (75 gm/meal); No Drinking Straws @[id number]@ 24HR INTAKE/OUTPUT: Intake/Output Summary (Last 24 hours) at 12/10/2023 1314 Last data filed at 12/10/2023 0838 Gross per 24 hour Intake 850 ml Output 1000 ml Net -150 ml Past Medical History: Past Medical History: Diagnosis Date Dementia (HCC) Diabetes mellitus (HCC) Hyperlipidemia Hypertension LABS: CBC: Recent Labs 12/08/23 0323 12/09/23 0407 12/10/23 0348 WBC 6.0 4.3 4.3 RBC 3.89* 3.97* 3.93* HGB 11.7* 11.8* 11.8* HCT 35.0* 35.3* 34.7* MCV 90.0 89.0 88.3 RDW 13.9 13.9 13.7 PLT 146 166 185 BMP: Recent Labs 12/08/2332212/09/237 12/10/23 0348 NA 138 141 137 K 3.9 3.3* 3.6 CL 105 108* 104 CO2 28 26 25 BUN 35* 22* 19 CREATININE 1.29* 1.01 0.99 GLUCOSE 143* 42* 124* CALCIUM 9.2 9.1 9.3 ANIONGAP 4 8 8 LIVER PROFILE: Recent Labs 12/08/2332212/09/2340612/10/23 034 AST 34 27 24 ALT 23 22 [...] - Date -December 12 or - Location -fdc facility - Pending the following -sitter free [...] RAY MD, MD Division of Hospitalist Medicine [facility]D[employer] [facility] PAGER: Epic chat Images from the original note were not included. PHYSICAL THERAPY [facility] Treatment Note Name/MRN: Tita Keith ([id number]) Date of : 1935 Age: 88 y.o. Room/Bed: [facility]260/[facility]260 A Visit #: 1 out of 5 visits Discharge Recommendation: Fdc Facility Equipment Needed: No Prior Level of [...] from the original note were not included. [facility] - Infectious Diseases SLAT BASKET MAKER MACHINE Progress Note Subjective: Following for pneumococcal pneumonia [...] Behavior normal. Labs: Recent Labs 12/07/23 1227 12/08/2332212/09/2340612/10/23347 NA -- 138 141 137 K -- [...] -- 3.53* -- Recent Labs 12/08/23 0323 12/09/2340612/10/23 0348 WBC 6.0 4.3 4.3 HGB 11.7* [...] follow; plan d/w Dr. Favian Conde CNP [facility] - Infectious Diseases 2:27 PM 12/10/2023 Based on diagnoses and management, combination of acute and chronic problems, exacerbations and/or acuity, this visit should be considered to be of moderate complexity. Images from the original note were not included. OCCUPATIONAL THERAPY [facility] Treatment Note Name/MRN: Tita Keith ([id number]) Date of : 1935 Age: 88 y.o. Room/Bed: B2-260/B2-260 A Visit #: 1 out of 7 visits Discharge Recommendation: Fdc Facility Equipment Needed: No Prior Level of [...] Memory: decreased short term memory and decreased shelter memory - Safety judgement: decreased awareness of need for assistance - Sequencing: requires cues for some Exceptions Plan Continue acute OT per plan of care. Safety/Education Safety Safety Devices in place: All fall risk precautions in place, call light within reach, left in bed, bed alarm in place, gait belt, patient at risk for falls, nurse notified, video monitor, and special education resource room teacher present Restraints: No Education Education Given To: [...] care of this patient's treatment with the RANDALL student and agree with the above note. [...] decision making capacity - met with daughter/HCPOA Kayleigh Scott,at bedside - Kayleigh's goal for patient is for [facility] - Code status at this [...] is a 88 y.o. male admitted to [facility] on 12/06/23 for altered mental status. Patient [...] be obtained due to patient's mental status [place] Symptom Assessment Score [place] Score Pain Score 0 Tiredness Score [...] status: no Marital status: single Living status: intermediate Work history: retired Family Meeting: (if discussing [...] note were not included. Hospitalist Progress Note 12/09/[id number]: Please secure chat me for patient care issues. [phone]: Please secure chat [facility] Hospitalist for any issues. Subjective: Admit Date: 12/06/2023 PCP: Marj Plasencia Room#: B2260/B2260 A Brief History: Patient is 88-year-old gentleman [...] carb choices (75 gm/meal); No Drinking Straws @[id number]@ 24HR INTAKE/OUTPUT: Intake/Output Summary (Last 24 hours) at 12/09/2023 1011 Last data filed at 12/08/2023 1846 Gross per 24 hour Intake 2050 ml Output -- Net 2050 ml Past Medical History: Past Medical History: Diagnosis Date Dementia (HCC) Diabetes mellitus (HCC) Hyperlipidemia Hypertension LABS: CBC: Recent Labs 12/06/23 1621 12/08/23 0323 12/09/23 0407 WBC 8.4 6.0 4.3 RBC 4.11* [...] Discharge - Date -December 10 - Location -fdc facility - Pending the following -clinical improvement [...] RAY MD, MD Division of Hospitalist Medicine [facility] PAGER: Epic chat Repositioned with skin care. Pt attempting to get OOB, Remains pleasantly confused, nonredirectable at times. Refusing breakfast but taking sips fluids. Will continue to monitor. Images from the original note were not included. Hospitalist Progress Note 12/08/2023 [phone]: Please secure chat me for patient care issues. [phone]: Please secure chat [facility] Hospitalist for any issues. Subjective: Admit Date: [...] carb choices (75 gm/meal); No Drinking Straws @[id number]@ 24HR INTAKE/OUTPUT: Intake/Output Summary (Last 24 hours) at 12/08/2023 1339 Last data filed at 12/08/2023 0505 Gross per 24 hour Intake -- Output 460 ml Net -460 ml Past Medical History: Past Medical History: Diagnosis Date Dementia (HCC) Diabetes mellitus (HCC) Hyperlipidemia Hypertension LABS: CBC: Recent Labs 12/06/23 1621 12/08/23 0323 WBC 8.4 6.0 RBC 4.11* 3.89* HGB 12.6* 11.7* HCT 36.4* 35.0* MCV 88.5 90.0 RDW 14.0 13.9 PLT 144 146 BMP: Recent Labs 12/06/23 16212/08/23 0323 NA 136 138 K 4.5 3.9 [...] - Date -December 09 or - Location -fdc facility - Pending the following -PT and [...] RAY MD, MD Division of Hospitalist Medicine PLAYD8 [facility] PAGER: Epic chat [facility] Respiratory Care Department Progress Note As [...] this patient, Pharmacy Vancomycin Consult Follow-Up Note Non-RADIO NEWS WRITER Patients Current Dosing: Vanc 750mg every 24 [...] Straws per MNT protocol. Monitor need for JEWELRY SALES ASSOCIATE consult. Initiate Ensure high protein TID per [...] (gastrocnemius), Hand (interosseous) Fluid Accumulation: Mild Extremities Laundrette Owner Strength: Not Performed Nutrition Assessment: Pt was [...] (kg): 56 kg Total Energy Requirements (kcals/day): 5212-6483 kcals (30-35 kcals/kg) Weight Used for Protein [...] at facility) % Weight Change (Calculated): -3.1 Holden Body Weight (lbs) (Calculated): 190 lbs Holden Body Weight (Kg) (Calculated): 86 kg % [place]en Body Weight (Calculated): 64.7 % BMI (kg/m2) [...] Oral Nutrition Supplement Dian Tipton RD Contact: *[phone] or via Secure Chat Images from the original note were not included. PHYSICAL THERAPY [facility] Initial Evaluation Name/MRN: Tita Keith ([id number]) Evaluation Date: 12/07/2023 Date of : 1935 Admission Date: 12/06/2023 3:50 PM Age: 88 y.o. Room/Bed: Discharge Recommendation: Fdc Facility Equipment Needed: No Assessment IMPRESSION: Pt [...] History: Past Medical History: Diagnosis Date Dementia ([facility]) Diabetes mellitus ([facility]) Hyperlipidemia Hypertension Past Surgical History: Past Surgical History: Procedure Laterality Date BACK SURGERY Admission Diagnosis: Patient Active Problem List Diagnosis Date Noted Pneumonia due to infectious organism, unspecified laterality, unspecified part of lung 12/06/2023 Dementia without behavioral disturbance ([facility]) 09/17/2023 COVID-19 09/10/2023 Severe malnutrition ([facility]) ([facility]) 01/20/2023 Hyperglycemia 01/19/2023 Hyperosmolar hyperglycemic state (HHS) ([facility]) 01/17/2023 New onset type 2 diabetes mellitus ([facility]) ([facility]) 03/01/2022 Medical Precautions: Droplet Proper PPE donned/doffed [...] 12/13/23 Therapy Time Individual Co-treatment Time In 08 Time Out 09 Minutes 28 Timed Code Treatment Minutes: 10 Minutes (1 TA) Marry Mendoza PT Patient's Physical Therapy Plan of Care supervision is transferred to a [facility] Physical Therapist. Goals and/or treatment plan was established in collaboration with patient/family/other representatives. Images from the original note were not included. OCCUPATIONAL THERAPY [facility] Initial Evaluation Name/MRN: Tita Keith ([id number]) Evaluation Date: 12/07/2023 Date of : 1935 Admission Date: 12/06/2023 3:50 PM Age: 88 y.o. Room/Bed: Discharge Recommendation: Fdc Facility Equipment Needed: No (TBD at next [...] History: Past Medical History: Diagnosis Date Dementia ([facility]) Diabetes mellitus ([facility]) Hyperlipidemia Hypertension Past Surgical History: Past Surgical History: Procedure Laterality Date BACK SURGERY Admission Diagnosis: Patient Active Problem List Diagnosis Date Noted Pneumonia due to infectious organism, unspecified laterality, unspecified part of lung 12/06/2023 Dementia without behavioral disturbance ([facility]) 09/17/2023 COVID-19 09/10/2023 Severe malnutrition ([facility]/HCC) ([facility]) 01/20/2023 Hyperglycemia 01/19/2023 Hyperosmolar hyperglycemic state (HHS) ([facility]) 01/17/2023 New onset type 2 diabetes mellitus ([facility]) ([facility]) 03/01/2022 Medical Precautions: Droplet Proper PPE donned/doffed [...] Daily Activity Raw Score: 13 ADL Inpatient [facility] G-Code Modifier: CL Plan Pt would benefit [...] of Care supervision is transferred to a [facility] Occupational Therapist. Goals and/or treatment plan was established in collaboration with patient/family/other representatives. documented in this encounter [facility] 12-12-2023 Note Formatting of this n ote might be different from the original. Dc to [facility] this afternoon at 1:00. [facility] to transport. [facility] messaged the facility with cotton picking machine operator time. Ambulance form completed and report number provided to the bedside nurse. Spoke with patients daughter Kayleigh to discuss dc arrangements and the cotton picking machine operator time. [facility] 12-12-2023 Note Formatting of this n ote might be different from the original. Dc to [facility] this afternoon at 1:00. [facility] to transport. [facility] messaged the facility with cotton picking machine operator time. Ambulance form completed and report number provided to the bedside nurse. Spoke with patients daughter Kayleigh to discuss dc arrangements and the cotton picking machine operator time. [facility] 12-12-2023 Miscellaneous Notes Dc to [facility] this afternoon at 1:00. [facility] to transport. [facility] messaged the facility with cotton picking machine operator time. Ambulance form completed and report number provided to the bedside nurse. Spoke with patients daughter Kayleigh to discuss dc arrangements and the cotton picking machine operator time. Images from the original note were not included. Care Management Progress Note Pt has discharge order. Pt to return to [facility]. MAINTENANCE TRUCK DRIVER notified to set up transport. [facility] tasked to send discharge paperwork. Discharge Milestones and Delays Expected Date/Time: 12/12/2023 Disposition: Fdc Facility Transport status: No current request Discharge Milestones Completed Place discharge order Complete med reconciliation Case mgmt discharge readiness Expected Discharge History Expected Date/Time Set By Reviewed At 12/12/2023 Lara Russell RN 12/12/2023 10:47 AM [facility] 12/12/2023 Ruiz Braun MD 12/12/2023 10:10 AM [facility]" 12/12/2023 MITCHELL Graham 12/11/2023 9:11 AM 12/12/2023 Mi Titus RN 12/10/2023 10:56 AM From [facility]. Dysphasia. telesitter." 12/11/2023 MITCHELL Graham 12/10/2023 9:30 AM 12/08/2023 Cody Lerma MD 12/07/2023 6:39 PM 12/08/2023 Cody Lerma MD 12/06/2023 6:39 PM Length of Stay (Days): 6 GMLOS: 5.1 Discharge med list transmitted to return back to [facility] via [facility] per TCC request. Problem: Knowledge [...] for 24 hours before discharge back to [facility]. 1220: Spoke with Mckenzie at [facility]. Confirms patient will need to be sitter [...] MITCHELL Graham 12/11/2023 9:11 AM Dysphasia. telesitter. [facility] when stable" 12/12/2023 Mi Titus RN 12/10/2023 10:56 AM From [facility]. Dysphasia. telesitter." 12/11/2023 MITCHELL Graham 12/10/2023 9:30 AM 12/08/2023 Cody Lerma MD 12/07/2023 6:39 PM 12/08/2023 Cody Lerma MD 12/06/2023 6:39 PM Length of [...] Droplet Isolation. Received call from Mckenzie at [facility]; [phone]. She states patient is a technician terminal and repeater care bedhold and can return when ready. She states patient does not need authorization started before discharge. She did state patient will need to be tele sitter free for 24 hours; bedside Rn and Dr. Ray updated via secure [employer] chat. DC plan: Return to [facility], needs to be tele sitter free 24 hours before discharge. Discharge Milestones and Delays Expected Date/Time: 12/12/[address] discharge order Complete med reconciliation Case mgmt discharge readiness Clinical Stability Diagnsotic Workup Expected Discharge History Expected Date/Time Set By Reviewed At 12/12/2023 Mi Titus RN 12/10/2023 10:56 AM From [facility]. Dysphasia. telesitter." 12/11/2023 MITCHELL Graham 12/10/2023 9:30 AM 12/08/2023 Cody Lerma MD 12/07/2023 6:39 PM 12/08/2023 Cody Lerma MD 12/06/2023 6:39 PM Length of Stay (Days): 4 GMLOS: No GMLOS Documented Care Managment Initial Assessment Date: 12/08/2023 Patient Name: Tita Keith : 1935 Patient Information Source of Information: Patient Conveyor Belt Installer Name/Contact Information: Kayleigh Scott dtr & HCPOA Cognition/Language: Confused at baseline Permission given to speak with patient agricultural sales representative/caregiver as indicated: Confirmation of Payer with patient/family: Yes Payer Name: Aetna Medicare [place]: Yes Confirmation of Primary Care Physician: Confirmed PCP Name: Marj Plasencia Seen in last 2 years?: Yes Primary Caregiver: Other (Comment) (ECF staff) If assistance needed, confirmed caregiver ready, willing and able to care for patient at discharge: Yes Confirmed with: F staff Living Arrangements Current Residence: Number of Floors Number of Entry Steps: Bed/Bath Levels: Facility: [facility] Facility Name: [facility] Plan to Return: Yes Lives with: (other residents of [facility]) Support Systems: Children, Family members, Comments (Other) (ECF staff) Activities of Daily Living Ambulation: Assistance (FWW) Bathing/Dressing: Assistance Elimination/Continence/Toileting: Assistance Feeding: Independent Who Assists with Activities of Daily Living: ECF staff Instrumental Activities of Daily Living Prescription Coverage: Yes Pharmacy Used: [facility] pharmacy Medication Management: Medication dispenser Who assists [...] to: Discharge Planning Actions: Continue to follow, [facility] Facility referral indicated [facility]: [facility] of choice discussed Patient's Choice Rights and [employer] and Collaborative Relationships Disclosed as Indicated for Post-Acute Care: Yes Interdisciplinary Team Engagement: Social Work Referral for: Additional Information: Spoke with patient's daughter, Kayleigh cSott, at [phone]. Introduced self and role. Patient admitted for [...] PT/OT recommending SNF LOC. Return referral to [facility] ECF submitted via [facility]. TCC will continue to follow. Ru Duckworth RN documented in this encounter [facility] 12-12-2023 Note Formatting of this n ote is different from the original. Images from the original note were not included. Care Management Progress Note Pt has discharge order. Pt to return to [facility]. MAINTENANCE TRUCK DRIVER notified to set up transport. STEREOTYPE MOLDER tasked to send discharge paperwork. Discharge Milestones and Delays Expected Date/Time: 12/12/2023 Disposition: Fdc Facility Transport status: No current request Discharge Milestones Completed Place discharge order Complete med reconciliation Case mgmt discharge readiness Expected Discharge History Expected Date/Time Set By Reviewed At 12/12/2023 Lara Russell RN 12/12/2023 10:47 AM [facility] 12/12/2023 Ruiz Braun MD 12/12/2023 10:10 AM Dysphasia. telesitter. [facility] when stable" 12/12/2023 MITCHELL Graham 12/11/2023 9:11 AM 12/12/2023 Mi Titus RN 12/10/2023 10:56 AM From [facility]. Dysphasia. telesitter." 12/11/2023 MITCHELL Graham 12/10/2023 9:30 AM 12/08/2023 Cody Lerma MD 12/07/2023 6:39 PM 12/08/2023 Cody Lerma MD 12/06/2023 6:39 PM Length of Stay (Days): 6 GMLOS: 5.1 [facility] 12-12-2023 Note Formatting of this n ote is different from the original. Images from the original note were not included. Care Management Progress Note Pt has discharge order. Pt to return to [facility]. MAINTENANCE TRUCK DRIVER notified to set up transport. STEREOTYPE MOLDER tasked to send discharge paperwork. Discharge Milestones and Delays Expected Date/Time: 12/12/2023 Disposition: Fdc Facility Transport status: No current request Discharge Milestones Completed Place discharge order Complete med reconciliation Case mgmt discharge readiness Expected Discharge History Expected Date/Time Set By Reviewed At 12/12/2023 Lara Russell RN 12/12/2023 10:47 AM [facility] 12/12/2023 Ruiz Braun MD 12/12/2023 10:10 AM Dysphasia. telesitter. [facility] when stable" 12/12/2023 MITCHELL Graham 12/11/2023 9:11 AM 12/12/2023 Mi Titus RN 12/10/2023 10:56 AM From [facility]. Dysphasia. telesitter." 12/11/2023 MITCHELL Graham 12/10/2023 9:30 AM 12/08/2023 Cody Lerma MD 12/07/2023 6:39 PM 12/08/2023 Cody Lerma MD 12/06/2023 6:39 PM Length of Stay (Days): 6 GMLOS: 5.1 [facility] 12-12-2023 Note Formatting of this n ote might be different from the original. Discharge med list transmitted to return back to [facility] via [facility] per TCC request. [facility] 12-12-2023 Note Formatting of this n ote might be different from the original. Discharge med list transmitted to return back to [facility] via [facility] per TCC request. [facility] 12-12-2023 Hospital course Narrative Images from the [...] 12/07/2023 1610 Legionella and Streptococcus Urine Antigen [[id number]] (Abnormal) Urine, Clean Catch Final result Component Value Legionella pneumophila Ag Not Detected Streptococcus pneumoniae Ag Detected Abnormal SARS-CoV-2, Flu A/B, and RSV Combo [[id number]] (Abnormal) Swab from Nasopharynx Final result Component [...] Your Medications These medications were sent to [facility] [address] [place] [id number] Hours: Sunday to Sunday 10 am to 6 pm cefdinir 300 MG capsule insulin glargine 100 UNIT/ML injection DIET: Adult diet Dysphagia - Minced and Moist; 5 carb choices (75 gm/meal); No Drinking Straws ACTIVITY: No restriction. COMPLEXITY OF FOLLOW UP: [x] Moderate Complexity: follow up within 7-14 calendar days (30650) [] Severe Complexity: follow up within 7 calendar days (66145) FOLLOW UP TESTING, PENDING RESULTS OR REFERRALS [...] 12/12/2023, 10:16 AM documented in this encounter [facility] 12-12-2023 Hospital Discharg e instructions Candace Eastman RN - 12/12/2023 10:12 AM EST Continuity of Care Form Patient Name: Tita Keith : 1935 Admit date: 12/06/2023 Discharge date: 12-12-23 Code Status Order: DNR-CCA Advance Directives: Y Admitting Physician: Kayleigh Stout DO PCP: Marj Plasencia Discharging Nurse: BP HALL Discharging Hospital Unit/Room#: B2-260/B2-260 A Discharging Unit Emergency Contact: Extended Emergency Contact Information Primary Emergency Contact: ArmaanKayleigh lester Mobile Relation: Child Secondary Emergency Contact: [...] (HCC) (Chronic) COVID-19 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) Isolation/Infection: Droplet Pneumonia rule out Nurse Assessment: [...] assistance Toileting Total assistance Feeding Minimal assistance 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 Teacher Total assistance Med Delivery yes Wound Care [...] at 12/12/2023 1012 Last data filed at 12/11/20232040 Gross per 24 hour Intake 360 ml [...] Score: @READMISSIONRISKDETAILS@ Discharging to Facility/ Agency Name: [facility] Address: [address], [place] [address] Dialysis Facility (if applicable) Name: Address: Dialysis Schedule: Phone: Fax: Fur Ironer/Board Finisher signature: ICIAN SECTION Prognosis: fair Condition at Discharge: stable Rehab Potential (if transferring to Rehab): fair Recommended Labs or Other Treatments After Discharge: Cbc/bmp in 3 days Physician Certification: I certify the above information and transfer of Tita eKith is necessary for the continuing treatment of the diagnosis listed and that he requires fdc facility for less than 30 days. Update Admission H&P: No change in H&P PHYSICIAN SIGNATURE: documented in this encounter [facility] 12-12-2023 Nurse Note Pt refused labs this am [facility] 12-12-2023 Nurse Note Pt refused labs this am documented in this encounter [facility] 12-11-2023 Plan of care note Problem: [...] Recommendations to address these barriers include . [facility] 12-11-2023 Note Formatting of this n ote is different from the original. Images from the original note were not included. Care Management Progress Note Chart reviewed. Patient remains on [facility] for treatment of Pnemonia and RSV. On IVF and IV Rocephin. PT/OT. Droplet Isolation. Discussed patient in rounds; will need to be video monitor free for 24 hours before discharge back to [facility]. 1220: Spoke with Mckenzie at [facility]. Confirms patient will need to be sitter [...] MITCHELL Graham 12/11/2023 9:11 AM Dysphasia. telesitter. [facility] when stable" 12/12/2023 Mi Titus RN 12/10/2023 10:56 AM From [facility]. Dysphasia. telesitter." 12/11/2023 MITCHELL Graham 12/10/2023 9:30 AM 12/08/2023 Cody Lerma MD 12/07/2023 6:39 PM 12/08/2023 Cody Lerma MD 12/06/2023 6:39 PM Length of Stay (Days): 5 GMLOS: 5.1 [facility] 12-11-2023 Note Formatting of this n ote is different from the original. Images from the original note were not included. Care Management Progress Note Chart reviewed. Patient remains on for treatment of Pnemonia and RSV. On IVF and IV Rocephin. PT/OT. Droplet Isolation. Discussed patient in rounds; will need to be video monitor free for 24 hours before discharge back to [facility]. 1220: Spoke with Mckenzie at [facility]. Confirms patient will need to be sitter [...] MITCHELL Graham 12/11/2023 9:11 AM Dysphasia. telesitter. [facility] when stable" 12/12/2023 Mi Titus RN 12/10/2023 10:56 AM From [facility]. Dysphasia. telesitter." 12/11/2023 MITCHELL Graham 12/10/2023 9:30 AM 12/08/2023 Cody Lerma MD 12/07/2023 6:39 PM 12/08/2023 Cody Lerma MD 12/06/2023 6:39 PM Length of Stay (Days): 5 GMLOS: 5.1 [facility] 12-10-2023 Plan of care note Problem: Knowledge [...] Recommendations to address these barriers include . Wunsch-Brautkleid 12-10-2023 Note Formatting of this n ote is different from the original. Images from the original note were not included. Care Management Progress Note Chart reviewed. Patient remains on [facility] [place] for treatment of Pnemonia and RSV. On IVF and IV Rocephin. PT/OT. Droplet Isolation. Received call from Mckenzie at [facility]; [phone]. She states patient is a shelter care bedhold and can return when ready. She states patient does not need authorization started before discharge. She did state patient will need to be tele sitter free for 24 hours; bedside Rn and Dr. Ray updated via secure [employer] chat. DC plan: Return to [facility], needs to be tele sitter free 24 hours before discharge. Discharge Milestones and Delays Expected Date/Time: 12/12/[address] discharge order Complete med reconciliation Case mgmt discharge readiness Clinical Stability Diagnsotic Workup Expected Discharge History Expected Date/Time Set By Reviewed At 12/12/2023 Mi Titus RN 12/10/2023 10:56 AM From [facility]. Dysphasia. telesitter." 12/11/2023 MITCHELL Graham 12/10/2023 9:30 AM 12/08/2023 Cody Lerma MD 12/07/2023 6:39 PM 12/08/2023 Cody Lerma MD 12/06/2023 6:39 PM Length of Stay (Days): 4 GMLOS: No GMLOS Documented Wunsch-Brautkleid 12-10-2023 Note Formatting of this n ote is different from the original. Images from the original note were not included. Care Management Progress Note Chart reviewed. Patient remains on [facility] [place] for treatment of Pnemonia and RSV. On IVF and IV Rocephin. PT/OT. Droplet Isolation. Received call from Mckenzie at [facility]; [phone]. She states patient is a shelter care bedhold and can return when ready. She states patient does not need authorization started before discharge. She did state patient will need to be tele sitter free for 24 hours; bedside Rn and Dr. Ray updated via secure [employer] chat. DC plan: Return to [facility], needs to be tele sitter free 24 hours before discharge. Discharge Milestones and Delays Expected Date/Time: 12/12/[address] discharge order Complete med reconciliation Case mgmt discharge readiness Clinical Stability Diagnsotic Workup Expected Discharge History Expected Date/Time Set By Reviewed At 12/12/2023 Mi Titus RN 12/10/2023 10:56 AM From [facility]. Dysphasia. telesitter." 12/11/2023 MITCHELL Graham 12/10/2023 9:30 AM 12/08/2023 Cody Lerma MD 12/07/2023 6:39 PM 12/08/2023 Cody Lerma MD 12/06/2023 6:39 PM Length of Stay (Days): 4 GMLOS: No GMLOS Documented Wunsch-Brautkleid 12-09-2023 Consult note Associated Order (s): PHARMACY TO DOSE VANCO Vancomycin therapy has been discontinued by Dr. Ray on 12/08/23. Thank you for the consult. Pharmacy signing off for vancomycin dosing. Dior Whitaker RPh, PharmD Date: 12/09/23 Time: 7:05 AM Wunsch-Brautkleid 12-09-2023 Consult note Associated Order (s): PHARMACY [...] Straws per MNT protocol. Monitor need for JEWELRY SALES ASSOCIATE consult. Initiate Ensure high protein TID per [...] (gastrocnemius), Hand (interosseous) Fluid Accumulation: Mild Extremities Laundrette Owner Strength: Not Performed Nutrition Assessment: Pt was [...] (kg): 56 kg Total Energy Requirements (kcals/day): 5114-2572 kcals (30-35 kcals/kg) Weight Used for Protein [...] at facility) % Weight Change (Calculated): -3.1 Holden Body Weight (lbs) (Calculated): 190 lbs Holden Body Weight (Kg) (Calculated): 86 kg % Holden Body Weight (Calculated): 64.7 % BMI (kg/m2) [...] Oral Nutrition Supplement Dian Tipton RD Contact: *[phone] or via Secure Chat Associated Order(s): IP CONSULT TO INFECTIOUS DISEASES Images from the original note were not included. [facility] - Infectious Diseases Advanced Practice Provider Consult Note Reason for Consult: Bilateral pna History of Present Illness: This is an 88 yo M with a PMH of dementia, DM, HLD and HTN who presents to [facility] ED on 12/06 from his nursing facility [...] M Esterle, DO 100 mg at 12/07/23 09 enoxaparin (Lovenox) syringe 30 mg 30 mg SubCUTAneous Daily Kayleigh M Esterle, DO 30 mg at 12/07/23 09 glucagon (human recombinant) injection 1 mg 1 [...] accounting for open encounter. SIDNEY Faulkner, TARA Associated Order(s): IP CONSULT TO PALLIATIVE CARE [...] capacity - reached out to daughter/HCPOA Kayleigh Scott, introduced self and role - Kayleigh stated that patient has 4 children, 2 boys 2 girls - stated 2 of patient's children live out of town - Kayleigh stated that patient was in hospice at [facility] and they revoked hospice for him to be treated for skin cancer - kayleigh stated that patient likes it at [facility] and she would like him to go [...] HLP, DM 2 who was admitted to [facility] on 12/06/23 from [facility] for altered mental status. Per daughter patient was previously on hospice at [facility], hospice was revoked to seek treatment for [...] be obtained due to patient's mental status [place] Symptom Assessment Score [place] Score Pain Score 0 per FLACC [...] status: no Marital status: single Living status: intermediate Work history: retired Advance Care Planning: The [...] - see A and P We discussed aeosdfh-[id number] concerns identified by the patient/surrogate, including - see A and P Interventions reviewed: Resuscitation procedures (CPR), Mechanical ventilator support, and Diagnostic testing Advance Care Planning Documents: Healthcare Power of Price Economist: Completed Financial Power of Price Economist: Other Unknown Living Will: Other Unknown Code Status: DNR-CCA In addition to the time spent evaluating and managing the patient's medical diagnoses above, 15 minutes of this encounter was spent discussing advanced care planning documented above. Please bill [id number] for 16-46 minutes and add additional [phone] for >46 minutes. Family Meeting: Participants: child [...] Note Initiated: yes. 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 year old male ordered vancomycin for Pneumonia (CAP); consult from Dr. Stout to manage therapy. Patient Active Problem List Diagnosis Date Noted Pneumonia due to infectious organism, unspecified laterality, unspecified part of lung 12/06/2023 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) 09/17/2023 COVID-19 09/10/2023 Severe malnutrition (CMS/HCC) ([facility]) 01/20/2023 Hyperglycemia 01/19/2023 Hyperosmolar hyperglycemic state (HHS) ([facility]) 01/17/2023 New onset type 2 diabetes mellitus (CMS/HCC) ([facility]) 03/01/2022 Patient has no known allergies. CREATININE [...] continue to follow. documented in this encounter [facility] 12-08-2023 Note Formatting of this n ote might be different from the original. Care Managment Initial Assessment Date: 12/08/2023 Patient Name: Tita Keith : 1935 Patient Information Source of Information: Patient Conveyor Belt Installer Name/Contact Information: Kayleigh Scott dtr & MAY Cognition/Language: Confused at baseline Permission given to speak with patient agricultural sales representative/caregiver as indicated: Confirmation of Payer with patient/family: Yes Payer Name: [place] Medicare [place]: Yes Confirmation of Primary Care Physician: Confirmed PCP Name: Marj Plasencia Seen in last 2 years?: Yes Primary Caregiver: Other (Comment) (ECF staff) If assistance needed, confirmed caregiver ready, willing and able to care for patient at discharge: Yes Confirmed with: ECF staff Living Arrangements Current Residence: Number of Floors Number of Entry Steps: Bed/Bath Levels: Facility: [facility] Facility Name: [facility] Plan to Return: Yes Lives with: (other residents of [facility]) Support Systems: Children, Family members, Comments (Other) (ECF staff) Activities of Daily Living Ambulation: Assistance (FWW) Bathing/Dressing: Assistance Elimination/Continence/Toileting: Assistance Feeding: Independent Who Assists with Activities of Daily Living: ECF staff Instrumental Activities of Daily Living Prescription Coverage: Yes Pharmacy Used: [facility] pharmacy Medication Management: Medication dispenser Who assists [...] to: Discharge Planning Actions: Continue to follow, [facility] Facility referral indicated [place] of choice: [place] of choice discussed Patient's Choice Rights and [employer] and Collaborative Relationships Disclosed as Indicated for Post-Acute Care: Yes Interdisciplinary Team Engagement: Social Work Referral for: Additional Information: Spoke with patient's daughter, Kayleigh Scott, at [phone]. Introduced self and role. Patient admitted for [...] PT/OT recommending SNF LOC. Return referral to [facility] ECF submitted via [employer]. TCC will continue to follow. Ru Duckworth RN [facility] 12-08-2023 Note Formatting of this n ote might be different from the original. Care Managment Initial Assessment Date: 12/08/2023 Patient Name: Tita Keith : 1935 Patient Information Source of Information: Patient Conveyor Belt Installer Name/Contact Information: Kayleigh Scott dtr & RAHELOA Cognition/Language: Confused at baseline Permission given to speak with patient agricultural sales representative/caregiver as indicated: Confirmation of Payer with patient/family: Yes Payer Name: [place] Medicare [place]: Yes Confirmation of Primary Care Physician: Confirmed PCP Name: Marj Plasencia Seen in last 2 years?: Yes Primary Caregiver: Other (Comment) (ECF staff) If assistance needed, confirmed caregiver ready, willing and able to care for patient at discharge: Yes Confirmed with: ECF staff Living Arrangements Current Residence: Number of Floors Number of Entry Steps: Bed/Bath Levels: Facility: [facility] Facility Name: [facility] Plan to Return: Yes Lives with: (other residents of [facility]) Support Systems: Children, Family members, Comments (Other) (ECF staff) Activities of Daily Living Ambulation: Assistance (FWW) Bathing/Dressing: Assistance Elimination/Continence/Toileting: Assistance Feeding: Independent Who Assists with Activities of Daily Living: ECF staff Instrumental Activities of Daily Living Prescription Coverage: Yes Pharmacy Used: [facility] pharmacy Medication Management: Medication dispenser Who assists [...] Assistance Provider Finances/Bill Payer Assistance Provider Name: Kayleigh Contreras Communication: Independent Types of Care Services/Equipment Utilized Care Services: (N/A) Dialysis Type: NA Durable Medical Equipment: Walker, Glucometer Patient's Goal/Discharge Plan Patient expects to be discharged to: Discharge Planning Actions: Continue to follow, [facility] Facility referral indicated [place] of choice: [place] of choice discussed Patient's Choice Rights and [employer] and Collaborative Relationships Disclosed as Indicated for Post-Acute Care: Yes Interdisciplinary Team Engagement: Social Work Referral for: Additional Information: Spoke with patient's daughter, Kayleigh Scott, at [phone]. Introduced self and role. Patient admitted for [...] PT/OT recommending SNF LOC. Return referral to [facility] ECF submitted via [facility]. TCC will continue to follow. Ru Duckworth RN [facility] 12-07-2023 Emergency department Note Dietary bringing pt's tray to 2 east. Radha Torres RN 12/07/23 184 [facility] 12-07-2023 Emergency department Note Dietary bringing pt's tray to 2 east. Radha Torres RN 12/07/23 184 Pt received ensure and is drinking it independently. Radha Torres RN 12/07/23 8306 Updated pt's RN Carly. Radha Torres RN [...] gauze for protection. KB White 12/07/23 1231 Let physician know about pt's agitation and non-cooperation. Radha Torres RN 12/07/23 1213 Rounded on pt. Pt removed last IV and took self off all telemetry. Pt refusing IV. Radha Torres RN 12/07/23 1210 Pt removed all monitoring devices and is not cooperative with staff in replacing them. Pt removes again before radio news writer able to complete replacing all devices. Corina Osorio, EMT 12/07/23 1204 ID and daughter @ bedside. Radha Torres RN 12/07/23 0943 PT @ bedside. Radha Torres RN 12/07/23 0840 [place] (SNF) staff notified about pt admission and [...] 1935 Date of evaluation: 12/06/2023 ED Provider: Cody Lerma MD CHIEF COMPLAINT Chief Complaint Patient [...] of a pneumonia. He presents from his intermediate. Recently, he was hospice, but this was [...] Inappropriate words Best Motor Response: Localizes pain Elmer Coma Scale Score: 11 PHYSICAL EXAM ED [...] In compliance with this authorization, please visit www.fda.gov/media/823133/download or www.fda.gov/media/968623/download to access the applicable information sheets. CBC [...] Culture. Procedure Abnormality Status --------- ------ Complete Urinalysis[[id number]] Please view results for these tests on the individual orders. COMPLETE URINALYSIS TROPONIN, WITH SERIAL REFLEX All other labs were within normal range or not returned as of this dictation. EMERGENCY DEPARTMENT COURSE/Reval Vitals: Vitals: 12/06/23 1802 12/06/23 1810 12/06/23 1832 12/06/23 190 BP: 133/74 133/74 136/82 123/82 BP [...] Mini-Bag Plus (0 g IntraVENous Stopped 12/06/23 171) vancomycin IVPB 1500 mg in 250 mL [...] injection 75 mL (75 mL IntraVENous Given 12/06/231743) SEP-1 CORE MEASURE DATA SIRS Criteria Sepsis [...] applicable. Patient does not have Septic Shock. Cody Lerma MD EKG interpreted by mi: 12-06-2023. Time 1936. Rate 95 normal sinus rhythm. Normal axis. TERE 169, QRS 74, QTc 420. No STEMI. Discussions with other clinicians: hospitalist, about admission Medical conditions impacting care: dementia Social determinants of health affecting care: Resides at intermediate Escalation of care, appropriate for: Admission MDM: 88-year-old male presenting with concerns about treatment failure for pneumonia from his intermediate. He was hemodynamically stable, but not met [...] to contact the dictating provider for clarification.) Cody Lerma MD (electronically signed) Emergency Medicine Physician Cody Lerma MD 12/06/231949 Patient is from [facility] and was sent due to Mental status change, fever of 105 oral, rigors, and is being treated for pneumonia. Patient was started on Cefdinar 300 mg PO BID. Family state X-ray at the [facility] showed infiltrates. Patient was given Tylenol suppository while EMS was enroute. documented in this encounter [facility] 12-07-2023 Emergency department Note Pt received ensure and is drinking it independently. Radha Torres RN 12/07/23 979 [facility] 12-07-2023 Emergency department Note Updated pt's RN Carly. Radha Torres RN 12/07/23 1818 [facility] 12-07-2023 Emergency department Note Ordered pt dinner. Radha Torres RN 12/07/23 1801 [facility] 12-07-2023 Emergency department Note Pt sleeping with non-labored respirations. Radha Torres RN 12/07/23 1656 [facility] 12-07-2023 Consult note Associated Order (s): IP CONSULT TO DIETITIAN Nutrition Assessment Type and Reason for Visit: Initial, Consult (poor PO) Nutrition Recommendations/Plan: Modify diet to Adult diet Dysphagia - Minced and Moist; 5 carb choices (75 gm/meal); No Drinking Straws per MNT protocol. Monitor need for JEWELRY SALES ASSOCIATE consult. Initiate Ensure high protein TID per [...] (gastrocnemius), Hand (interosseous) Fluid Accumulation: Mild Extremities Laundrette Owner Strength: Not Performed Nutrition Assessment: Pt was [...] (kg): 56 kg Total Energy Requirements (kcals/day): 7038-4541 kcals (30-35 kcals/kg) Weight Used for Protein [...] at facility) % Weight Change (Calculated): -3.1 Holden Body Weight (lbs) (Calculated): 190 lbs Holden Body Weight (Kg) (Calculated): 86 kg % Holden Body Weight (Calculated): 64.7 % BMI (kg/m2) [...] Oral Nutrition Supplement Dian Tipton RD Contact: *[phone] or via Secure Chat [facility] 12-07-2023 Emergency department Note Pt ate about 30% of tray. Pt pulling at leads again. Radha Torres RN 12/07/23 1420 [facility] 12-07-2023 Consult note Associated Order (s): IP CONSULT TO INFECTIOUS DISEASES Images from the original note were not included. [facility] - Infectious Diseases Advanced Practice Provider Consult Note Reason for Consult: Bilateral pna History of Present Illness: This is an 88 yo M with a PMH of dementia, DM, HLD and HTN who presents to [facility] ED on 12/06 from his nursing facility [...] accounting for open encounter. SIDNEY Faulkner PA-C [facility] Myla Work Phone: 12-07-2023 Emergency department Note Pt more calm post medication. Assisted pt to eat lunch. Radha Torres RN 12/07/23 1254 [facility] 12-07-2023 Emergency department Note #20 left posterior forearm placed in 1 attempt after pt removed his IV. Pt tolerated well. Site wrapped in gauze for protection. KB White 12/07/23 1231 [facility] 12-07-2023 Emergency department Note Let physician know about pt's agitation and non-cooperation. Radha Torres RN 12/07/23 1213 [facility] 12-07-2023 Emergency department Note Rounded on pt. Pt removed last IV and took self off all telemetry. Pt refusing IV. Radha Torres RN 12/07/23 1210 [facility] 12-07-2023 Emergency department Note Pt removed all monitoring devices and is not cooperative with staff in replacing them. Pt removes again before radio news writer able to complete replacing all devices. KB White 12/07/23 1204 [facility] 12-07-2023 History and physical note Images [...] he was sent here from the nursing intermediate, he was a hospice care patient until [...] hours. CARDIAC ENZYMES: Recent Labs 12/06/23 1621 12/06/23202312/07/23 0104 TROPONINI 0.031 0.080* 0.070* Procalcitonin: No [...] RAY MD, MD Division of Hospitalist Medicine [facility] History and physical note Images from [...] he was sent here from the nursing intermediate, he was a hospice care patient until [...] RAI RAY MD, Division of Hospitalist Medicine Acute care [facility] documented in this encounter [facility] 12-07-2023 Emergency department Note ID and daughter @ bedside. Radha Torres RN 12/07/23 0943 [facility] 12-07-2023 Emergency department Note PT @ bedside. Radha Torres RN 12/07/23 0840 [facility] 12-07-2023 Emergency department Note [place] (SNF) staff notified about pt admission and status. Daughter @ bedside feeding pt. Daughter updated on POC. Radha Torres RN 12/07/23 0822 [facility] 12-07-2023 Emergency department Note Rounded on pt. [...] pt breakfast. Radha Torres RN 12/07/23 0757 [facility] 12-07-2023 Consult note Associated Order (s): IP [...] decision making capacity - reached out to daughter/HCPISACC Scott, introduced self and role - Kayleigh stated that patient has 4 children, 2 boys 2 girls - stated 2 of patient's children live out of town - Kayleigh stated that patient was in hospice at [facility] and they revoked hospice for him to be treated for skin cancer - kayleigh stated that patient likes it at [facility] and she would like him to go [...] HLP, DM 2 who was admitted to [facility] on 12/06/23 from [facility] for altered mental status. Per daughter patient was previously on hospice at [facility], hospice was revoked to seek treatment for [...] be obtained due to patient's mental status [place] Symptom Assessment Score [place] Score Pain Score 0 per FLACC [...] status: no Marital status: single Living status: intermediate Work history: retired Advance Care Planning: The [...] - see A and P We discussed [id number] concerns identified by the patient/surrogate, including - see A and P Interventions reviewed: Resuscitation procedures (CPR), Mechanical ventilator support, and Diagnostic testing Advance Care Planning Documents: Healthcare Power of Price Economist: Completed Financial Power of Price Economist: Other Unknown Living Will: Other Unknown Code Status: DNR-CCA In addition to the time spent evaluating and managing the patient's medical diagnoses above, 15 minutes of this encounter was spent discussing advanced care planning documented above. Please bill [id number] for 16-46 minutes and add additional [phone] for >46 minutes. Family Meeting: Participants: child [...] hospice appropriate? TBD Transition Note Initiated: yes. [facility] 12-07-2023 Consult note Formatting of th is note is different from the original. 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 year old male ordered vancomycin for Pneumonia (CAP); consult from Dr. Stout to manage therapy. Patient Active Problem List Diagnosis Date Noted Pneumonia due to infectious organism, unspecified laterality, unspecified part of lung 12/06/2023 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) 09/17/2023 COVID-19 09/10/2023 Severe malnutrition (CMS/HCC) (HCC) 01/20/2023 Hyperglycemia 01/19/2023 Hyperosmolar hyperglycemic state (HHS) ([facility]) 01/17/2023 New onset type 2 diabetes mellitus (CMS/HCC) ([facility]) 03/01/2022 Patient has no known allergies. CREATININE [...] for the consult. Will continue to follow. [facility] 12-06-2023 Emergency department Triage note Patient is from [facility] and was sent due to Mental status change, fever of 105 oral, rigors, and is being treated for pneumonia. Patient was started on Cefdinar 300 mg PO BID. [facility] X-ray at the [facility] showed infiltrates. Patient was given Tylenol suppository while EMS was enroute. [facility] 12-06-2023 Physician Emergency department Note EMERGENCY DEPARTMENT ENCOUNTER Pt Name: Tita Keith Birthdate 1935 Date of evaluation: 12/06/2023 ED Provider: Cody Lerma MD CHIEF COMPLAINT Chief Complaint Patient [...] of a pneumonia. He presents from his intermediate. Recently, he was hospice, but this was [...] Inappropriate words Best Motor Response: Localizes pain Elmer Coma Scale Score: 11 PHYSICAL EXAM ED [...] In compliance with this authorization, please visit www.fda.gov/media/867935/download or www.fda.gov/media/862421/download to access the applicable information sheets. CBC [...] Culture. Procedure Abnormality Status --------- ------ Complete Urinalysis[[id number]] Please view results for these tests on the individual orders. COMPLETE URINALYSIS TROPONIN, WITH SERIAL REFLEX All other labs were within normal range or not returned as of this dictation. EMERGENCY DEPARTMENT COURSE/Reval Vitals: Vitals: 12/06/23 1802 12/06/23 1810 12/06/23 1832 12/06/23 190 BP: 133/74 133/74 136/82 123/82 BP [...] IVPB Mini-Bag Plus (0 g IntraVENous Stopped 12/06/231715) vancomycin IVPB 1500 mg in 250 mL [...] IVPB Mini-Bag Plus (0 g IntraVENous Stopped 2/15/24 1716) vancomycin IVPB 1500 mg in 250 mL NS (premix) (1,500 mg IntraVENous New Bag 12/06/23 1640) sodium chloride 0.9 % bolus 1,674 mL (0 mL IntraVENous Stopped 12/06/23 1740) iopamidol (Isovue-370) 76 % injection 75 mL (75 mL IntraVENous Given 12/06/23 1744) SEP-1 CORE MEASURE DATA SIRS Criteria Sepsis [...] applicable. Patient does not have Septic Shock. Cody Lerma MD EKG interpreted by mi: 12-06-2023. Time 1936. Rate 95 normal sinus rhythm. Normal axis. TERE 169, QRS 74, QTc 420. No STEMI. Discussions with other clinicians: hospitalist, about admission Medical conditions impacting care: dementia Social determinants of health affecting care: Resides at intermediate Escalation of care, appropriate for: Admission MDM: 88-year-old male presenting with concerns about treatment failure for pneumonia from his intermediate. He was hemodynamically stable, but not met [...] to contact the dictating provider for clarification.) Cody Lerma MD (electronically signed) Emergency Medicine Physician Cody Lerma MD 12/06/231949 [facility] 09-19-2023 Nurse Note Report given to [facility] receiving [facility]. All questions answered. Waiting on transport [facility] 09-19-2023 Nurse Note Report given to [facility] receiving nurse. All questions answered. Waiting on transport documented in this encounter [facility] 09-19-2023 History of Presen t illness Narrative Images from the original note were not included. Speech-Language Pathology SPEECH LANGUAGE PATHOLOGY [facility] Dysphagia Treatment Note Patient Name: Tita Keith Evaluation Date: 09/19/2023 Date of : 1935 Admission Date: 09/10/2023 11:21 AM Age: 87 y.o. Room/Bed: [facility] A Subjective Patient alert and restless, fidgeting with sock on his arm. Seen upright, after pulling up in bed.. No visitors at bedside. Pt able to state name only. JEWELRY SALES ASSOCIATE oriented pt to place and time. Reference current date on the white board. Pain: RN managing pain. No indication or c/o pain. PPE Worn: n95, face shield, gown, gloves Objective & Assessment Dysphagia Treatment Dysphagia Activity 1: Assess cough and clearing ability (abdomenal/deep breathing) Dysphagia Activity 2: Assess advanced diet trials. Pt was alert when JEWELRY SALES ASSOCIATE entered. He did eat most of his breakfast tray per discussion with vocational nursing instructor. He took depend off and was putting [...] for repeat instrumentation. Clinically improved. Continue acute JEWELRY SALES ASSOCIATE therapy per initial plan of care and [...] Start: 09/13/23 Expected End: 09/27/23 Therapy Time JEWELRY SALES ASSOCIATE Individual Minutes Time In: 1006 Time Out: 1025 Minutes: 19 BRITTNY Mattson Images from the original note were not included. OCCUPATIONAL THERAPY [facility] Treatment Note Name/MRN: Tita Keith ([id number]) Date of : 1935 Age: 87 y.o. Room/Bed: -651/O9-840 A Visit #: 1 out of 8 [...] original note were not included. PHYSICAL THERAPY [facility] Treatment Note Name/MRN: Tita Keith ([id number]) Date of : 1935 Age: 87 y.o. Room[facility]Bed: B4453[facility] A Visit #: 1 out of 5 [...] not included. Speech-Language Pathology SPEECH LANGUAGE PATHOLOGY [facility] Dysphagia Treatment Note Patient Name: Tita Keith Evaluation Date: 09/18/2023 Date of : 1935 Admission Date: 09/10/2023 11:21 AM Age: 87 y.o. Room[facility]Bed: [facility] A Subjective Patient alert and restless. [...] Start: 09/13/23 Expected End: 09/27/23 Therapy Time JEWELRY SALES ASSOCIATE Individual Minutes Time In: 1118 Time Out: [...] at this time. Will re-attempt as able. CARMINA Carbone Images from the original note were not included. [facility] - Infectious Diseases SLAT BASKET MAKER MACHINE Progress Note Subjective: Following for COVID-19. Weaned [...] the last 72 hours. 09/11 blood cx 1/2 + MRSE 09/11 sputum culture- mod respiratory [...] agreement with plan. Aliyah Raines APRN, CNP [facility] Infectious Disease 12:40 PM 09/17/2023 Images from the original note were not included. Speech-Language Pathology SPEECH LANGUAGE PATHOLOGY [facility] Dysphagia Treatment Note Patient Name: Tita Keith Evaluation Date: 09/17/2023 Date of : 1935 Admission Date: 09/10/2023 11:21 AM Age: 87 y.o. Room[facility]Bed: [facility] A Subjective Patient confused and cooperative. Seen upright in bed. Answers some basic questions with weak vocal quality. Follows some basic commands. No visitors at bedside. Spoke with RN, Karel, who cleared pt for treatment. Current Diet: Dietary Orders (From admission, onward) Start Ordered 09/14/23 1134 Supplement:Lunch; Chocolate Magic Cup Until discontinued Question [...] with current diet and trial upgrades with JEWELRY SALES ASSOCIATE only. Plan & Recommendations Plan: Continue acute JEWELRY SALES ASSOCIATE therapy per initial plan of care and [...] of aspirations (Progressing) Start: 09/13/23 Therapy Time JEWELRY SALES ASSOCIATE Individual Minutes Time In: 1055 Time Out: 1105 Minutes: 10 RENE Astorga Department of Family Medicine Daily Progress Note [...] billing): COVID-19 Pt doing ok today no new issues [...] Pending the following - KAYLEIGH STOUT DO 09/16/23 9:32 AM Department of Family [...] Nutrition Recommendations/Plan: Continue diet as recommended by JEWELRY SALES ASSOCIATE during admit: Puree diet with thin liquids [...] deltoids) Fluid Accumulation: No significant fluid accumulation Laundrette Owner Strength: Not Performed Nutrition Assessment: 87 year old man with PMHx: dementia, HLD, HTN, DMII(A1C=8.6% on 01/18/23), and Dysphagia (MBSS 01/22/23 with mild oral and moderate pharyngeal deficits. Recommended Minced and Moist diet +pureed meats, and thin liquids). Recently family revoked DNR-CC for dermatology procedure scheduled on 09/25/23. He presented to [facility] ED with shortness of breath from nursing facility. Significant labs on admit: WBC(3.5), Hbg(12.3), Hct(36.7), Na+(134), BUN(50), Creatinine(1.63), BGL(289). Imaging on admit without acute process. +COVID and Respiratory PCR. Continues on IV fluid and decadron, final dose of remdesivir today. Noted difficulty eating, and JEWELRY SALES ASSOCIATE consulted and recommended: Pureed solids and Thin liquids with meds crushed in puree". RDN donned appropriate, required PPE to assess patient [id number]. Sitting up in bed at time of [...] (kg): 54.5 kg Total Energy Requirements (kcals/day): 0845-1527 (30-35 kcal/kg CBW) Weight Used for Protein Requirements: Current Weight in Kg Used for Protein Requirements: 54.5 kg Estimated Total Protein (g/day): 65-82 (1.2-1.5 g protein/kg CBW) Estimated Daily Total Fluid (ml/day): per EMR Nutrition Related Findings: A+Ox1, +generalized Non-pitting edema. Inna score=11. +head tear. Meds: remdesivir, decadron, remeron, insulin, +IVF. Labs reviewed: CRP(60.0), BGL(238), PO minimal, +Puree diet per JEWELRY SALES ASSOCIATE Wound Type: Skin Tears (+skin tear to [...] his admit) % Weight Change (Calculated): -2.9 Holden Body Weight (lbs) (Calculated): 190 lbs Holden Body Weight (Kg) (Calculated): 86 kg % Holden Body Weight (Calculated): 63.2 % BMI (kg/m2) [...] current diet Xuan Hogan RDN, LDN, Contact: *[phone] Images from the original note were not included. Speech-Language Pathology SPEECH LANGUAGE PATHOLOGY [facility] Dysphagia Treatment Note Patient Name: Tita Keith Evaluation Date: 09/14/2023 Date of : 1935 Admission Date: 09/10/2023 11:21 AM Age: 87 y.o. Room/Bed: B4453/B4453 A Subjective Patient somnolent, confused and cooperative. Seen upright in bed. Answers few basic questions with weak vocal quality. Follows some basic commands. No visitors at bedside . Spoke with RN, Colleen, who cleared pt for treatment. Current Diet: [...] and required short, 1 step directions from JEWELRY SALES ASSOCIATE. Tolerated thin liquids via straw & cup [...] of aspirations (Progressing) Start: 09/13/23 Therapy Time JEWELRY SALES ASSOCIATE Individual Minutes Time In: 954 Time Out: 1005 Minutes: 10 TRE AstorgaJEWELRY SALES ASSOCIATE Department of Family Medicine Daily Progress Note [...] not included. Speech-Language Pathology SPEECH LANGUAGE PATHOLOGY [facility] Bedside Swallow Evaluation Patient Name: Tita Keith Evaluation Date: 09/13/2023 Date of : 1935 Admission Date: 09/10/2023 11:21 AM Age: 87 y.o. Room[facility]Bed: [facility] A IMPRESSION: S/s oropharyngeal dysphagia. No [...] bolus Pt would benefit from skilled acute JEWELRY SALES ASSOCIATE services to address oropharyngeal dysphagia. Frequency: 3 [...] Retrospective chart review revealed a history of JEWELRY SALES ASSOCIATE services as follows: Pt was seen from [...] 01/20/2023 Hyperglycemia 01/19/2023 Hyperosmolar hyperglycemic state (HHS) (HCC) 01/17/2023 New onset type 2 diabetes mellitus (CMS/HCC) (HCC) 03/01/2022 History of Present Illness: Tita Ketih is a 87 y.o. person who presents [...] more somnolent. Discussed with patient's power of state attorney and daughter who noted that she [...] symptoms of aspirations Start: 09/13/23 Therapy Time JEWELRY SALES ASSOCIATE Individual Minutes Time In: 923 Time Out: 934 Minutes: 11 TRE WhittenJEWELRY SALES ASSOCIATE Images from the original note were not included. [facility] - Infectious Diseases Attending Progress Note Subjective: [...] Blood culture Site #1 - Suspected Infection [[id number]] Blood, Venous Preliminary result Component Value Blood Culture No growth at 24 hours P 09/11/2023 1013 09/12/2023 0502 Blood culture Site #2 - Suspected Infection [[id number]] (Abnormal) Blood, Venous Preliminary result Component Value Blood Culture Gram-positive cocci Panic P 09/11/2023 1013 09/12/2023 0502 Blood Culture Identification - Anaerobic [[id number]] (Abnormal) Blood, Venous Final result Component Value Staphylococcus epidermidis Detected Abnormal mecA/C (MRSE/MRSL) Detected Abnormal 09/11/2023 0635 09/12/2023 0708 Respiratory culture and Stain [[id number]] (Abnormal) Sputum Preliminary result Component Value Respiratory [...] 1318 SARS-CoV-2, Flu A/B, and RSV Combo [[id number]] (Abnormal) Swab from Nasopharynx Final result Component Value SARS-CoV-2 Detected Abnormal Respiratory Syncytial Virus Not Detected Influenza A Not Detected Influenza B Not Detected Lines: PIV site ok Radiography/Echo/Other: XR chest 1 view [[id number]] Collected: 09/10/23 1228 Order Status: Completed Updated: 09/10/23 1230 Narrative: Patient Name: TITA KEITH : 1935 [facility]#: [id number] Exam Date/Time: 09/10/2023 12:21 Procedure: XR CHEST [...] 09/10/23 - droplet isolation - resides in ECF--they are aware of covid status, his roommate has continued to test negative for covid as has all residents and staff - per primary: dexamethasone, remdesivir 12/24--suspect completion before returning to intermediate - on room air without concerns, admits to breathing easy - was on morphine concentrate at facility will order prn, 5mg q2h and monitor needs for pain or air hunger--without need since ordering Dementia - resides at [facility] - with behaviors as per primary and [...] there Palliative Care Encounter -full code--changed to [id number] icu transfer, if decompensates and needs hospice here will do that - call to dtr Kayleigh at [phone], introduced myself and service, why consulted provided medical updates, and plans. - without LW or HCPOA in epic - dtr Kayleigh is primary emergency contact - goals clear, without symptoms will sign off at this time. Tita Keith has been seen in consultation by [facility] during their admission to [facility]. They currently have no uncontrolled symptoms and have established goals of care and we have signed off of their case. The patient has [place] . Total of 40 minutes spent on [...] Subjective: Subjective/Events Since last seen: admitted to . Awake in bed in NAD, without pain, CP, abdominal pain, breathing easy and not labored, no nausea, vomiting, unknown BM, tells me ate eggs for breakfast. No family at bedside Tita Keith is a 87 y.o. male residing at [facility] for 24 hour care and supervision for [...] other systems were reviewed and are negative. [place] Symptom Assessment Score [place] Score Pain Score 0 Tiredness Score [...] Assessed by: patient and provider. 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 PHYSICAL THERAPY [facility] Initial Evaluation Name/MRN: Tita Keith ([id number]) Evaluation Date: 09/11/2023 Date of : 1935 Admission Date: 09/10/2023 11:21 AM Age: 87 y.o. Room/Bed: B4453/B4453 A Discharge Recommendation: SNF Equipment Needed: TBD [...] History: Past Medical History: Diagnosis Date Dementia ([facility]) Diabetes mellitus ([facility]) Hyperlipidemia Hypertension Past Surgical History: Past Surgical History: Procedure Laterality Date BACK SURGERY Admission Diagnosis: Patient Active Problem List Diagnosis Date Noted COVID-19 09/10/2023 Severe malnutrition ([facility]) ([facility]) 01/20/2023 Hyperglycemia 01/19/2023 Hyperosmolar hyperglycemic state (HHS) ([facility]) 01/17/2023 New onset type 2 diabetes mellitus ([facility]) ([facility]) 03/01/2022 Medical Precautions: Droplet Plus Proper PPE donned/doffed in accordance with facility standards. Fall Risk: [place] Fall Risk Score: 60 (High Risk) Precautions/Restrictions: N/A Family/Caregiver Present: none Overall Cognitive Status: Exceptions - Arousal/alertness: delayed responses to stimuli - Following commands: inconsistently follows commands - Attention span: difficulty dividing attention - Memory: decreased recall of recent events, decreased short term memory, and decreased shelter memory - Safety judgement: decreased awareness of [...] Time In 0945 Time Out 1006 Minutes Kerline Bhat PT Patient's Physical Therapy Plan of Care supervision is transferred to a [facility] Therapy Services Physical Therapist. Goals and/or treatment plan was established in collaboration with patient/family/other representatives. Images from the original note were not included. OCCUPATIONAL THERAPY [facility] Initial Evaluation Name/MRN: Tita Keith ([id number]) Evaluation Date: 09/11/2023 Date of : 1935 [...] History: Past Medical History: Diagnosis Date Dementia ([facility]) Diabetes mellitus ([facility]) Hyperlipidemia Hypertension Past Surgical History: Past Surgical History: Procedure Laterality Date BACK SURGERY Admission Diagnosis: Patient Active Problem List Diagnosis Date Noted COVID-19 09/10/2023 Severe malnutrition ([facility]) ([facility]) 01/20/2023 Hyperglycemia 01/19/2023 Hyperosmolar hyperglycemic state (HHS) ([facility]) 01/17/2023 New onset type 2 diabetes mellitus ([facility]) ([facility]) 03/01/2022 Medical Precautions: Droplet Plus Proper PPE [...] events, decreased short term memory, and decreased shelter memory - Safety judgement: decreased awareness of [...] of Care supervision is transferred to a [facility] Therapy Services Occupational Therapist. Goals and/or treatment plan was established in collaboration with patient/family/other representatives. documented in this encounter [facility] 09-19-2023 Note Formatting of this n ote might be different from the original. Transportation arranged through [facility] by cot set for 11:30 am, however, since an ambulance is near by they may arrive at 11 am. Informed RN of this and she will call report. Notified patient's daughter of this as well. Attempted to speak with [facility] admissions to notify them as well. Sent message in iVengo. SW remains available if any other needs or concerns arise. [facility] 09-19-2023 Note Formatting of this n ote might be different from the original. Transportation arranged through [facility] by cot set for 11:30 am, however, since an ambulance is near by they may arrive at 11 am. Informed RN of this and she will call report. Notified patient's daughter of this as well. Attempted to speak with [facility] admissions to notify them as well. Sent message in [facility]. SW remains available if any other needs or concerns arise. [facility] 09-19-2023 Miscellaneous Notes Transportation arranged through [facility] by cot set for 11:30 am, however, since an ambulance is near by they may arrive at 11 am. Informed RN of this and she will call report. Notified patient's daughter of this as well. Attempted to speak with [facility] admissions to notify them as well. Sent message in [facility]port. SW remains available if any other needs or concerns arise. Discharge med list [facility]. Patient is able to discharge to [facility] today. . Number for report is [phone]. Attending aware. Did update primary care nurse and rn social work. Did task STEREOTYPE MOLDER to send discharge packet to [facility]. . Per Mckenzie at [facility] patient is able to return to facility tomorrow morning.Will update attending in the am. . Sent updated notes including MAR to return back to [facility] via [facility] per TCC request. Await review and response regarding ability to accept. TCC notified. Tasked STEREOTYPE MOLDER to send MAR to [facility]. Received call from Mckenzie at [facility] and they are agreeable to accepting patient back under skilled level of care tomorrow. She wants to verify that his Medicare is his primary payor, before TCC updates attending of this. Anticipate patient to return to [facility] tomorrow. . Did call and update Mckenzie at [facility] that Covid PCR is still positive. She will speak with [facility] administrator and call TCC back with update regarding requirements for him to return to facility. . Images from the original note were not included. Care Management Progress Note Covid PCR requested by [facility] was positive yesterday afternoon. Will call and speak with Mckenzie in admissions later this morning to discuss next steps regarding return to their facility. Pulse ox is 94% on room air. Remains on iv decadron and iv fluids. Discharge plan is return to [facility] home when cleared by facility. . Discharge Milestones and Delays Expected Date/Time: 09/21/[address] discharge order Complete med reconciliation Case mgmt discharge readiness Clinical Stability Diagnsotic Workup Expected Discharge History Expected Date/Time Set By Reviewed At 09/21/2023 MITCHELL Rhodes 09/17/2023 10:00 AM will need to negative covid tests within 48 hours to return to [facility] due to hx of wandering. out of Covid iso" 09/21/2023 Mayra Lundberg RN 09/17/2023 8:55 AM will need to negative covid tests within 48 hours to return to [facility] due to hx of wandering." 09/21/2023 Mayra Lundberg RN 09/14/2023 9:03 AM iv decadron and remdesivir. will need to negative covid tests within [facility] hours [facility]." 09/15/2023 Mayra Lundberg RN 09/12/2023 8:44 AM iv decadron and remdesivir 09/13/2023 Kayleigh Stout, DO 09/11/2023 12:51 PM 09/13/2023 Kayleigh Stout, 09/10/2023 8:04 PM 09/12/2023 Bernard Phillips MD 09/10/2023 2:03 PM Length of Stay (Days): 8 GMLOS: 5.1 Spoke with Mckenzie at [facility]. Requesting covid PCR be completed today and one on day 10. If both are negative will be able to return on day 11. If not will have to wait/check again with her [facility] administrator. Must be PCR and not antigens. Did update attending and primary care nurse of this. Did call and spoke with Mckenzie at [facility] to determine if patient is able to return once out of 10 days of isolation period and she is checking with her [facility] administrator and will updated TCC with response... Images from the original note were not included. Care Management Progress Note Remains on iv decadron and cont ivf. Did require iv apresoline x 1 last pm for elevated blood pressure. Blood pressures have been elevated. Remains off of oxygen. Will contact admissions at [facility] to determine if will require 2 negative [...] tests within 48 hours to return to [facility] due to hx of wandering." 09/15/2023 aMyra Lundberg RN 09/12/2023 8:44 AM iv decadron and remdesivir 09/13/2023 Kayleigh Stout DO 09/11/2023 12:51 PM 09/13/2023 Kayleigh Stout, 09/10/2023 8:04 PM 09/12/2023 Bernard Phillips MD 09/10/2023 2:03 PM Length of Stay (Days): 7 GMLOS: 5.1 .. Remains on iv fluid and iv decadron. Will receive final dose of remdesivr tonight. Pulse ox is 95% on room air. Crp is improved this am. Is on pureed diet. Due to fact patient wanders at [facility]. Will need to have two negative rapid covid test within 48 hours of each other prior to returning. Did update attending of this. . 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: Patient Conveyor Belt Installer Name/Contact Information: KAYLEIGH SCOTT [phone] DAUGHTER Cognition/Language: Confused at baseline Permission given to speak with patient agricultural sales representative/caregiver as indicated: Yes Confirmation of Payer with patient/family: Yes Payer Name: [employer]IC[employer] [place]: Yes Confirmation of Primary Care Physician: Confirmed PCP Name: MARJ PLASENCIA Seen in last 2 years?: Yes Primary Caregiver: Other (Comment) If assistance needed, confirmed caregiver ready, willing and able to care for patient at discharge: Yes Confirmed with: STAFF AT [facility] Living Arrangements Current Residence: ([facility]) Number of Floors 1 Number of Entry Steps: (LEVEL ENTRY) Bed/Bath Levels: Both first floor Facility: [facility] Facility Name: [facility] Plan to Return: Lives with: Other (Comment) (FACILITY) Support Systems: Family members, Comments (Other) (FACILITY) Activities of Daily Living Ambulation: Assistance (WITH FWW) Bathing/Dressing: Assistance Elimination/Continence/Toileting: Assistance Feeding: Independent Who Assists with Activities of Daily Living: staff at [facility] Instrumental Activities of Daily Living Prescription Coverage: Yes Pharmacy Used: [facility] Medication Management: Medication dispenser Who assists with medication securing and setup?: staff at [facility] Transportation/Shopping: Assistance Provider Transportation/Shopping Assistance Provider Name: payor provided transport Transportation Mode: Payer provided transport service Needs Assistance with Transportation at Discharge: Yes Meal Preparation: Assistance Provider Meal Prep Assistance Provider Name: [facility] Laundry/Cleaning: Assistance Provider Laundry/Cleaning Assistance Provider Name: [facility] Finances/Bill Paying: Assistance Provider Finances/Bill Payer Assistance Provider Name: ben Communication: Emergency Call System Types of Care Services/Equipment Utilized Care Services: Dialysis Type: NA Durable Medical Equipment: Walker, Glucometer Patient's Goal/Discharge Plan Patient expects to be discharged to: return to [facility] Discharge Planning Actions: Continue to follow Patient's Choice Rights and [employer] and Collaborative Relationships Disclosed as Indicated for Post-Acute Care: Interdisciplinary Team Engagement: PT/OT, Palliative Care Social Work Referral for: Additional Information: Inpatient status from [facility] with covid. Receiving iv decadron and remdesivr. Did call and speak with ben Martell to complete case management initial assessment. Patient has been at facility since January. Was active with [facility] hospice services until last week, but had skin cancer that needed removed and due to billing, hospice services were revoked last week and plan to remain revoked until skin cancer is removed. Tentative date of removal is 09/25. Kayleigh would like patient to return to [facility] upon discharge. Spoke with Mckenzie [phone] group reservations coordinator at [facility], due to patient wandering at their facility and not staying in his room. They are unable to take him back until he has 2 negative rapid covid test within 48 hours of each other or until his appt on 09/25. Did call and speak with [facility] manager flight and will honor [facility] infection control policies. Patient's initial covid diagnosis was 09/10. Will continue to work with [facility] and attending for return back to their facility. Did provide Mckenzie with [facility]'s direct contact number.. Mayra Lundberg RN Admitted from [facility] with covid. Admitted to medical. Iv remdesivir and decadron, supplemental oxygen. Per documentation is 93% on ra. 10/23 bc positive. Anticipate contaminate. Palliative care following. Tentative discharge plan is to return to [facility] when medically stable. Will need to determine if will be returning under skilled services or under hospice care. Will contact daughter to complete case management initial assessment and also speak with admissions at [facility] and continue to follow with palliative care.. Called and left message for daughter to assist with completing case management initial assessment. . Referral placed to return back to [facility] via [facility] per TCC request. Await review and response regarding ability to accept. TCC notified. documented in this encounter [facility] 09-19-2023 Note Formatting of this n ote might be different from the original. Discharge med list transmitted to return back to [facility] via [facility] per TCC request. [facility] 09-19-2023 Note Formatting of this n ote might be different from the original. Discharge med list transmitted to return back to [facility] via [facility] per TCC request. [facility] 09-19-2023 Note Formatting of this n ote might be different from the original. Patient is able to discharge to [facility] home today. . Number for report is [phone]. Attending aware. Did update primary care nurse and rn social work. Did task [employer] to send discharge packet to [facility]. . [facility] 09-19-2023 Note Formatting of this n ote might be different from the original. Patient is able to discharge to [facility] today. . Number for report is [phone]. Attending aware. Did update primary care nurse and rn social work. Did task STEREOT[employer] MOLDER to send discharge packet to [facility]. . [facility] 09-18-2023 Note Formatting of this n ote might be different from the original. Per Mckenzie [facility] patient is able to return to facility tomorrow morning.Will update attending in the am. . [facility] 09-18-2023 Note Formatting of this n ote might be different from the original. Per Mckenzie [facility] patient is able to return to facility tomorrow morning.Will update attending in the am. . [facility] 09-18-2023 Note Formatting of this n ote might be different from the original. Sent updated notes including MAR [facility] per TCC request. Await review and response regarding ability to accept. TCC notified. [facility] 09-18-2023 Note Formatting of this n ote might be different from the original. Sent updated notes including [facility] per TCC request. Await review and response regarding ability to accept. TCC notified. [facility] 09-18-2023 Note Formatting of this n ote might be different from the original. Tasked [facility] to send MAR to [facility]. Received call from Mckenzie at [facility] and they are agreeable to accepting patient back under skilled level of care tomorrow. She wants to verify that his Medicare is his primary payor, before TCC updates attending of this. Anticipate patient to return to [facility] nursing facility tomorrow. . [facility] 09-18-2023 Note Formatting of this n ote might be different from the original. Tasked [employer] to send MAR to [facility]. Received call from Mckenzie at [facility] and they are agreeable to accepting patient back under skilled level of care tomorrow. She wants to verify that his Medicare is his primary payor, before TCC updates attending of this. Anticipate patient to return to [facility] nursing facility tomorrow. . [facility] 09-18-2023 Note Formatting of this n ote might be different from the original. Did call and update Mckenzie at [facility] that Covid PCR is still positive. She will speak with [employer] administrator and call TCC back with update regarding requirements for him to return to facility. . [facility] 09-18-2023 Note Formatting of this n ote might be different from the original. Did call and update Mckenzie at [facility] that Covid PCR is still positive. She will speak with [employer] administrator and call TCC back with update regarding requirements for him to return to facility. . [facility] 09-18-2023 Note Formatting of this n ote is different from the original. Images from the original note were not included. Care Management Progress Note Covid PCR requested by [facility] was positive yesterday afternoon. Will call and speak with Mckenzie in admissions later this morning to discuss next steps regarding return to their facility. Pulse ox is 94% on room air. Remains on iv decadron and iv fluids. Discharge plan is return to [facility] home when cleared by facility. . Discharge [...] Length of Stay (Days): 8 GMLOS: 5.1 [facility] 09-18-2023 Note Formatting of this n ote is different from the original. Images from the original note were not included. Care Management Progress Note [facility] Will call and speak with Mckenzie in admissions later this morning to discuss next steps regarding return to their facility. Pulse ox is 94% on room air. Remains on iv decadron and iv fluids. Discharge plan is return to [facility] home when cleared by facility. . Discharge Milestones and Delays Expected Date/Time: 09/21/[address] discharge order Complete med reconciliation Case mgmt discharge readiness Clinical Stability Diagnsotic Workup Expected Discharge History Expected Date/Time Set By Reviewed At 09/21/2023 MITCHELL Rhodes 09/17/2023 10:00 AM will need to negative covid tests within 48 hours to return to [facility] due to hx of wandering. out of Covid iso" 09/21/2023 Mayra Lundberg RN 09/17/2023 8:55 AM will need to negative covid tests within 48 hours to return to [facility] due to hx of wandering." 09/21/2023 Mayra Lundberg RN 09/14/2023 9:03 AM iv decadron and remdesivir. will need to negative covid tests within [facility] due to hx of wandering." 09/15/2023 Mayra Lundberg RN 09/12/2023 8:44 AM iv decadron and remdesivir 09/13/2023 Kayleigh Stout, DO 09/11/2023 12:51 PM 09/13/2023 Kayleigh Stout, DO 09/10/2023 8:04 PM 09/12/2023 Bernard Phillips MD 09/10/2023 2:03 PM Length of Stay (Days): 8 GMLOS: 5.1 [facility] 09-17-2023 Note Formatting of this n ote might be different from the original. Spoke with Mckenzie at [facility]. Requesting covid PCR be completed today and one on day 10. If both are negative will be able to return on day 11. If not will have to wait/check again with her [employer] administrator. Must be PCR and not antigens. Did update attending and primary care nurse of this. [facility] 09-17-2023 Note Formatting of this n ote might be different from the original. Spoke with Mckenzie at [facility]. Requesting covid PCR be completed today and one on day 10. If both are negative will be able to return on day 11. If not will have to wait/check again with her [employer] administrator. Must be PCR and not antigens. Did update attending and primary care nurse of this. [facility] 09-17-2023 Note Formatting of this n ote might be different from the original. Did call and spoke with Mckenzie at [facility] to determine if patient is able to return once out of 10 days of isolation period and she is checking with her [facility] administrator and will updated TCC with response... [facility] 09-17-2023 Note Formatting of this n ote might be different from the original. Did call and spoke with Mckenzie at [facility] to determine if patient is able to return once out of 10 days of isolation period and she is checking with her [facility] administrator and will updated TCC with response... [facility] 09-17-2023 Note Formatting of this n ote is different from the original. Images from the original note were not included. Care Management Progress Note Remains on iv decadron and cont ivf. Did require iv apresoline x 1 last pm for elevated blood pressure. Blood pressures have been elevated. Remains off of oxygen. Will contact admissions at [facility] to determine if will require 2 negative [...] tests within 48 hours to return to [facility] due to hx of wandering." 09/15/2023 Mayra Lundberg RN 09/12/2023 8:44 AM iv decadron and remdesivir 09/13/2023 Kayleigh Stout DO 09/11/2023 12:51 PM 09/13/2023 Kayleigh Stout DO 09/10/2023 8:04 PM 09/12/2023 Bernard Phillips MD 09/10/2023 2:03 PM Length of Stay (Days): 7 GMLOS: 5.1 .. [facility] 09-17-2023 Note Formatting of this n ote is different from the original. Images from the original note were not included. Care Management Progress Note Remains on iv decadron and cont ivf. Did require iv apresoline x 1 last pm for elevated blood pressure. Blood pressures have been elevated. Remains off of oxygen. Will contact admissions at [facility] to determine if will require 2 negative [...] tests within 48 hours to return to [facility] due to hx of wandering." 09/15/2023 Mayra Lundberg RN 09/12/2023 8:44 AM iv decadron and remdesivir 09/13/2023 Kayleigh Stout, DO 09/11/2023 12:51 PM 09/13/2023 Kayleigh Stout, DO 09/10/2023 8:04 PM 09/12/2023 Bernard Phillips MD 09/10/2023 2:03 PM Length of Stay (Days): 7 GMLOS: 5.1 .. [facility] Myla 09-14-2023 Note Formatting of this n ote might be different from the original. Remains on iv fluid and iv decadron. Will receive final dose of remdesivr tonight. Pulse ox is 95% on room air. Crp is improved this am. Is on pureed diet. Due to fact patient wanders at [facility] home. Will need to have two negative rapid covid test within 48 hours of each other prior to returning. Did update attending of this. . [facility] Myla 09-14-2023 Note Formatting of this n ote might be different from the original. Remains on iv fluid and iv decadron. Will receive final dose of remdesivr tonight. Pulse ox is 95% on room air. Crp is improved this am. Is on pureed diet. Due to fact patient wanders at [facility] home. Will need to have two negative rapid covid test within 48 hours of each other prior to returning. Did update attending of this. . [facility] 09-12-2023 Hospital Discharg e instructions Yue Ludwig RN - 09/12/2023 12:13 PM EST Continuity of Care Form Patient Name: Tita Keith : 1935 Admit date: 09/10/2023 Discharge date: [id number] Code Status Order: DNR-CCA Advance Directives: N [...] assistance Toileting Total assistance Feeding Total assistance 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 Teacher Total assistance Med Delivery no Wound Care Documentation and Therapy: Wound/Incision 11/21/23 Skin Tear Face Upper (Active) Number of [...] with Video (Video Swallowing Test): {done not done:61978} Treatments at the Time of Hospital Discharge: Respiratory Treatments: Oxygen Therapy: is not on home oxygen therapy. Ventilator: No ventilator support Rehab Therapies: {GEN THERAPY DISCIPLINE SCAL:3605541} Weight Bearing Status/Restrictions: {POD WEIGHT BEARIN} Other Medical Equipment (for information only, NOT a DME order): {Assistive Devices DME:49224} Other Treatments: Patient's personal belongings (please select all that are sent with patient): {RON Patient Belongings:57885} RN SIGNATURE: {E-signature:76033} CASE MANAGEMENT/SOCIAL WORK SECTION Inpatient Status Date: Readmission Risk Assessment Score: @READMISSIONRISKDETAILS@ Discharging to Facility/ Agency Name: [facility] Address:[address] [place] [address] Dialysis Facility (if applicable) Name: Address: Dialysis Schedule: Phone: Fax: Fur Ironer/Board Finisher signature: ICIAN SECTION Prognosis: fair Condition at Discharge: stable Rehab Potential (if transferring to Rehab): fair Recommended Labs or Other Treatments After Discharge: none Physician Certification: I certify the above information and transfer of Tita Keith is necessary for the continuing treatment of the diagnosis listed and that he requires fdc facility for greater than 30 days. Update Admission H&P: No change in H&P PHYSICIAN SIGNATURE: documented in this encounter [facility] 09-12-2023 Note Formatting of this n ote might be different from the original. Care Managment Initial Assessment Date: 09/12/2023 Patient Name: Tiat Keith : 1935 Patient Information Source of Information: Patient Conveyor Belt Installer Name/Contact Information: KAYLEIGH SCOTT [phone] DAUGHTER Cognition/Language: Confused at baseline Permission given to speak with patient agricultural sales representative/caregiver as indicated: Yes Confirmation of Payer with patient/family: Yes Payer Name: [employer] MEDICARE : Yes Confirmation of Primary Care Physician: Confirmed PCP Name: MARJ PLASENCIA Seen in last 2 years?: Yes Primary Caregiver: Other (Comment) If assistance needed, confirmed caregiver ready, willing and able to care for patient at discharge: Yes Confirmed with: STAFF AT [facility] Living Arrangements Current Residence: ([facility]) Number of Floors 1 Number of Entry Steps: (LEVEL ENTRY) Bed/Bath Levels: Both first floor Facility: [facility] Facility Name: [facility] Plan to Return: Lives with: Other (Comment) (FACILITY) Support Systems: Family members, Comments (Other) (FACILITY) Activities of Daily Living Ambulation: Assistance (WITH FWW) Bathing/Dressing: Assistance Elimination/Continence/Toileting: Assistance Feeding: Independent Who Assists with Activities of Daily Living: staff at [facility] Instrumental Activities of Daily Living Prescription Coverage: Yes Pharmacy Used: [facility] Medication Management: Medication dispenser Who assists with medication securing and setup?: staff at [facility] Transportation/Shopping: Assistance Provider Transportation/Shopping Assistance Provider Name: payor provided transport Transportation Mode: Payer provided transport service Needs Assistance with Transportation at Discharge: Yes Meal Preparation: Assistance Provider Meal Prep Assistance Provider Name: [facility] Laundry/Cleaning: Assistance Provider Laundry/Cleaning Assistance Provider Name: [facility] Finances/Bill Paying: Assistance Provider Finances/Bill Payer Assistance Provider Name: daughter Communication: Emergency Call System Types of Care Services/Equipment Utilized Care Services: Dialysis Type: NA Durable Medical Equipment: Walker, Glucometer Patient's Goal/Discharge Plan Patient expects to be discharged to: return to [facility] Discharge Planning Actions: Continue to follow Patient's Choice Rights and [employer] and Collaborative Relationships Disclosed as Indicated for Post-Acute Care: Interdisciplinary Team Engagement: PT/OT, Palliative Care Social Work Referral for: Additional Information: Inpatient status from [facility] with covid. Receiving iv decadron and remdesivr. Did call and speak with daughter Kayleigh to complete case management initial assessment. Patient has been at facility since January. Was active with [facility] hospice services until last week, but had skin cancer that needed removed and due to billing, hospice services were revoked last week and plan to remain revoked until skin cancer is removed. Tentative date of removal is 09/25. Kayleigh would like patient to return to [facility] upon discharge. Spoke with Mckenzie [phone] group reservations coordinator at [facility], due to patient wandering at their facility and not staying in his room. They are unable to take him back until he has 2 negative rapid covid test within 48 hours of each other or until his appt on 09/25. Did call and speak with [facility] manager flight and will honor [facility] infection control policies. Patient's initial covid diagnosis was 09/10. Will continue to work with [facility] and attending for return back to their facility. Did provide Mckenzie with [facility]'s direct contact number.. Mayra Lundberg RN [facility] 09-12-2023 Note Formatting of this n ote might be different from the original. 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: Patient Conveyor Belt Installer Name/Contact Information: KAYLEIGH SCOTT [phone] DAUGHTER Cognition/Language: Confused at baseline Permission given to speak with patient agricultural sales representative/caregiver as indicated: Yes Confirmation of Payer with patient/family: Yes Payer Name: [employer] MEDICARE [place]: Yes Confirmation of Primary Care Physician: Confirmed PCP Name: MARJ PLASENCIA Seen in last 2 years?: Yes Primary Caregiver: Other (Comment) If assistance needed, confirmed caregiver ready, willing and able to care for patient at discharge: Yes Confirmed with: STAFF AT [facility] Living Arrangements Current Residence: ([facility]) Number of Floors 1 Number of Entry Steps: (LEVEL ENTRY) Bed/Bath Levels: Both first floor Facility: [facility] Facility Name: [facility] Plan to Return: Lives with: Other (Comment) (FACILITY) Support Systems: Family members, Comments (Other) (FACILITY) Activities of Daily Living Ambulation: Assistance (WITH FWW) Bathing/Dressing: Assistance Elimination/Continence/Toileting: Assistance Feeding: Independent Who Assists with Activities of Daily Living: staff at [facility] Instrumental Activities of Daily Living Prescription Coverage: Yes Pharmacy Used: [facility] Medication Management: Medication dispenser Who assists with medication securing and setup?: staff at [facility] Transportation/Shopping: Assistance Provider Transportation/Shopping Assistance Provider Name: payor provided transport Transportation Mode: Payer provided transport service Needs Assistance with Transportation at Discharge: Yes Meal Preparation: Assistance Provider Meal Prep Assistance Provider Name: [facility] Laundry/Cleaning: Assistance Provider Laundry/Cleaning Assistance Provider Name: [facility] Finances/Bill Paying: Assistance Provider Finances/Bill Payer Assistance Provider Name: daughter Communication: Emergency Call System Types of Care Services/Equipment Utilized Care Services: Dialysis Type: NA Durable Medical Equipment: Walker, Glucometer Patient's Goal/Discharge Plan Patient expects to be discharged to: return to [facility] Discharge Planning Actions: Continue to follow Patient's Choice Rights and [employer] and Collaborative Relationships Disclosed as Indicated for Post-Acute Care: Interdisciplinary Team Engagement: PT/OT, Palliative Care Social Work Referral for: Additional Information: Inpatient status from [facility] with ldid. Receiving iv decadron and remdesivr. Did call and speak with daughter Kayleigh to complete case management initial assessment. Patient has been at facility since January. Was active with [facility] hospice services until last week, but had skin cancer that needed removed and due to billing, hospice services were revoked last week and plan to remain revoked until skin cancer is removed. Tentative date of removal is 09/25. Kayleigh would like patient to return to [facility] upon discharge. Spoke with Mckenzie [phone] group reservations coordinator at [facility], due to patient wandering at their facility and not staying in his room. They are unable to take him back until he has 2 negative rapid covid test within 48 hours of each other or until his appt on 09/25. Did call and speak with [facility] manager flight and will honor [facility] infection control policies. Patient's initial covid diagnosis was 09/10. Will continue to work with [facility] and attending for return back to their facility. Did provide Mckenzie with [facility]'s direct contact number.. Mayra Lundberg RN [facility] 09-12-2023 Note Formatting of this n ote might be different from the original. Admitted from [facility] with covid. Admitted to medical. Iv remdesivir and decadron, supplemental oxygen. Per documentation is 93% on ra. 12 bc positive. Anticipate contaminate. Palliative care following. Tentative discharge plan is to return to [facility] when medically stable. Will need to determine if will be returning under skilled services or under hospice care. Will contact daughter to complete case management initial assessment and also speak with admissions at [facility] and continue to follow with palliative care.. [facility] 09-12-2023 Note Formatting of this n ote might be different from the original. Admitted from [facility] with covid. Admitted to medical. Iv remdesivir and decadron, supplemental oxygen. Per documentation is 93% on ra. 12 bc positive. Anticipate contaminate. Palliative care following. Tentative discharge plan [facility] when medically [facility]. Will need to determine if will be returning under skilled services or under hospice care. Will contact daughter to complete case management initial assessment and also speak with admissions at [facility] and continue to follow with palliative care.. [facility] 09-11-2023 Note Formatting of this n ote might be different from the original. Called and left message for daughter to assist with completing case management initial assessment. . [facility] 09-11-2023 Note Formatting of this n ote might be different from the original. Called and left message for daughter to assist with completing case management initial assessment. . [facility] 09-11-2023 Note Formatting of this n ote might be different from the original. Referral placed to return back to [facility] per T[facility] request. Await review and response regarding ability to accept. TCC notified. [facility] 09-11-2023 Note Formatting of this n ote might be different from the original. Referral placed to return back to [facility] via [facility] per T[facility] request. Await review and response regarding ability to accept. TCC notified. [facility] 09-11-2023 Consult note Associated Order (s): IP CONSULT TO INFECTIOUS DISEASES Images from the original note were not included. [facility] - Infectious Diseases Attending [...] 5 Units 5 Units SubCUTAneous Nightly Radha Guy Hoiles, RUG SHAMPOOER - SLAT BASKET MAKER MACHINE LORazepam (Ativan) tablet 0.25 mg 0.25 mg Oral q4h PRN Radha L Hoiles, RUG SHAMPOOER - SLAT BASKET MAKER MACHINE Melatonin disintegrating tablet 5 mg 5 mg Oral Nightly PRN Kayleigh M Esterle, DO mirtazapine (Remeron) tablet 15 mg 15 mg Oral Nightly Kayleigh M Esterle, DO morphine 10 MG/0.5ML concentrated solution 5 mg 5 mg Oral q2h PRN Radha L Hoiles, RUG SHAMPOOER - SLAT BASKET MAKER MACHINE naloxone (Narcan) injection 0.4 mg 0.4 mg IntraVENous PRN Radha L Hoiles, RUG SHAMPOOER - SLAT BASKET MAKER MACHINE ondansetron ODT (Zofran-ODT) disintegrating tablet 4 mg [...] Dispense Refill cholecalciferol (Vitamin D-3) 50 MCG (1999) capsule Take 2,000 Units by mouth. docusate [...] Blood culture Site #1 - Suspected Infection [[id number]] Blood, Venous In process Component Value No component results 09/11/2023 1013 09/11/2023 1019 Blood culture Site #2 - Suspected Infection [[id number]] Blood, Venous In process Component Value No component results 09/11/2023 0635 09/11/2023 1302 Respiratory culture and Stain [[id number]] (Abnormal) Sputum Preliminary result Component Value Respiratory [...] 1318 SARS-CoV-2, Flu A/B, and RSV Combo [[id number]] (Abnormal) Swab from Nasopharynx Final result Component Value SARS-CoV-2 Detected Abnormal Respiratory Syncytial Virus Not Detected Influenza A Not Detected Influenza B Not Detected Lines: PIV site ok Radiography/Echo/Other: XR chest 1 view [[id number]] Collected: 09/10/23 1228 Order Status: Completed Updated: 09/10/23 1230 Narrative: [facility] 1935 [id number] Exam Date/Time: 09/10/2023 12:21 Procedure: XR CHEST [...] time stamp for accounting for open encounter. [facility] 09-11-2023 Consult note Associated Order (s): IP CONSULT TO INFECTIOUS DISEASES Images from the original note were not included. [facility] - Infectious Diseases Attending [...] 5 Units 5 Units SubCUTAneous Nightly Radha Arreguin APRN - [place] LORazepam (Ativan) tablet 0.25 mg 0.25 mg Oral q4h PRN Radha L Hoiles, RUG SHAMPOOER - SLAT BASKET MAKER MACHINE Melatonin disintegrating tablet 5 mg 5 mg Oral Nightly PRN Kayleigh M Esterle, DO mirtazapine (Remeron) tablet 15 mg 15 mg Oral Nightly Kayleigh M Esterle, DO morphine 10 MG/0.5ML concentrated solution 5 mg 5 mg Oral q2h PRN Radha L Hoiles, RUG SHAMPOOER - SLAT BASKET MAKER MACHINE naloxone (Narcan) injection 0.4 mg 0.4 mg IntraVENous PRN Radha L Hoiles, RUG SHAMPOOER - SLAT BASKET MAKER MACHINE ondansetron ODT (Zofran-ODT) disintegrating tablet 4 mg [...] Blood culture Site #1 - Suspected Infection [[id number]] Blood, Venous In process Component Value No component results 09/11/2023 1013 09/11/2023 1019 Blood culture Site #2 - Suspected Infection [[id number]] Blood, Venous In process Component Value No component results 09/11/2023 0635 09/11/2023 1302 Respiratory culture and Stain [[id number]] (Abnormal) Sputum Preliminary result Component Value Respiratory [...] 1318 SARS-CoV-2, Flu A/B, and RSV Combo [[id number]] (Abnormal) Swab from Nasopharynx Final result Component Value SARS-CoV-2 Detected Abnormal Respiratory Syncytial Virus Not Detected Influenza A Not Detected Influenza B Not Detected Lines: PIV site ok Radiography/Echo/Other: XR chest 1 view [[id number]] Collected: 09/10/23 1228 Order Status: Completed Updated: 09/10/23 1230 Narrative: Patient Name: TITA KEITH : 1935 Exam Date/Time: 09/10/2023 12:21 Procedure: XR CHEST [...] 09/10/23 - droplet isolation - resides in [facility]--they are aware of covid status, his roommate has continued to test negative for covid as has all residents and staff - per primary: dexamethasone, remdesivir 2/5, - HFNC-->N/C 4L---> RA was 90%, replaced on 4L - was on morphine concentrate at facility will order prn, 5mg q2h and monitor needs for pain or air hunger Dementia - resides at [facility] - with behaviors as per primary and [...] hungry Palliative Care Encounter -full code--changed to [id number] icu transfer, if decompensates and needs hospice here will do that - call to dtr Kayleigh at [phone], introduced myself and service, why consulted provided medical updates, and plans. 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 - will continue to [...] with primary attending or other consultants, Electronic order entry clerk of medications, tests or procedures, and Counseling [...] is a 87 y.o. male residing at [facility] for 24 hour care and supervision for [...] hungry Off hospice for squamous cell carcinoma. [facility], [facility] Pain Assessment (If Pain Scale >0) [...] other systems were reviewed and are negative. [place] Symptom Assessment Score [place] Score Pain Score 0 Tiredness Score [...] is verbal Assessed by: provider. 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 TBD Transition Note Initiated: yes. documented in this encounter [facility] 09-11-2023 Emergency department Note Patient up in bed at this time, speaking with this RN. Patient VS updated, patient being afebrile at this time and 92% on RA. Call light within reach. Nick Branham RN 09/11/23 115 [facility] 09-11-2023 Emergency department Note Patient up in bed at this time, speaking with this RN. Patient VS updated, patient being afebrile at this time and 92% on RA. Call light within reach. Nick Branham RN 09/11/[address] Stout notified that pt has not been alert enough to take PO medications. Per Dr Stout, ok to hold PO medications as well as lantus because pt is not eating meals. Molly Garcia RN 09/10/232043 Dr Stout contacted and asked for admission orders. States they will be put in shortly. Molly Garcia RN 09/10/231958 [facility] to fax over DNR Perla Sousa RN 09/10/[address] Jm mckinley. Pt to be transitioned to high flow [place] Molly Garcia RN 09/10/231137 EMERGENCY DEPARTMENT ENCOUNTER Pt Name: Tita Keith [...] more somnolent. Discussed with patient's power of state attorney and daughter who noted that she [...] In compliance with this authorization, please visit www.fda.gov/media/544451/download or www.fda.gov/media/543847/download to access the applicable information sheets. CBC [...] Phillips MD (electronically signed) Emergency Medicine Provider [id number] Bernard Phillips MD 09/10/23 1436 Pt arrived [...] RN 09/10/23 1122 documented in this encounter [facility] 09-11-2023 History and physical note Department [...] more somnolent. Discussed with patient's power of state attorney and daughter who noted that she [...] decadron KAYLEIGH STOUT DO 09/11/23 9:04 AM [facility] 09-11-2023 History and physical note [...] more somnolent. Discussed with patient's power of state attorney and daughter who noted that she [...] 09/11/23 9:04 AM documented in this encounter [facility] 09-11-2023 Consult note Associated Order (s): IP CONSULT TO PALLIATIVE CARE Images from the original note were not included. Palliative Care Initial Consult Chief Complaint: Tita Keith is a 87 y.o. male with chief complaint of increased work of breathing. Palliative Care is actively following. Assessment/Plan Covid - dx 09/10/23 - droplet isolation - resides in [facility]--they are aware of covid status, his roommate has continued to test negative for covid as has all residents and staff - per primary: dexamethasone, remdesivir 2/, - HFNC-->N/C 4L---> RA was 90%, replaced on 4L - was on morphine concentrate at facility will order prn, 5mg q2h and monitor needs for pain or air hunger Dementia - resides at [facility] - with behaviors as per primary and [...] hungry Palliative Care Encounter -full code--changed to [id number] icu transfer, if decompensates and needs hospice here will do that - call to dtr Kayleigh at [phone], introduced myself and service, why consulted provided medical updates, and plans. 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 - will continue to [...] with primary attending or other consultants, Electronic order entry clerk of medications, tests or procedures, and Counseling [...] is a 87 y.o. male residing at [facility] for 24 hour care and supervision for [...] hungry Off hospice for squamous cell carcinoma. [facility] Pain Assessment (If Pain Scale >0) [...] other systems were reviewed and are negative. 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 TBD Transition Note Initiated: yes. [facility] 09-10-[address] Stout notified that pt has not been alert enough to take PO medications. Per Dr Stout, ok to hold PO medications as well as lantus because pt is not eating meals. Molly Garcia RN 09/10/232043 [facility] 09-10-[address] Stout contacted and asked for admission orders. States they will be put in shortly. Molly Garcia RN 09/10/231958 [facility] 09-10-2023 Emergency department Note [facility] to fax over DNR Perla Sousa RN 09/10/23 1138 [facility] 09-10-2023 Emergency department Note RT and Dr Jm mckinley. Pt to be transitioned to high flow [place] Molly Garcia RN 09/10/23 1138 [facility] 09-10-2023 Emergency department Note Bed: 08 Expected date: Expected time: Means of arrival: Comments: Nathaniel Garcia RN 09/10/23 1122 [facility] 09-10-2023 Emergency department Triage note Pt [...] call facility to have it faxed over [facility] 09-10-2023 Physician Emergency department Note EMERGENCY [...] more somnolent. Discussed with patient's power of state attorney and daughter who noted that she [...] In compliance with this authorization, please visit www.fda.gov/media/107347/download or www.fda.gov/media/886879/download to access the applicable information sheets. CBC [...] Phillips MD (electronically signed) Emergency Medicine Provider [facility] Bernard Phillips MD 09/10/23 1436 [facility] 01-26-2023 History of Presen t illness Narrative Speech-Language Pathology Facility/Department: [address] DYSPHAGIA TREATMENT NAME: Tita Keith : 1935 ADMISSION DATE: 01/17/2023 ADMITTING DIAGNOSIS: has New onset type 2 diabetes mellitus (CMS/HCC) ([facility]); Hyperosmolar hyperglycemic state (HHS) (HCC); Hyperglycemia; and Severe malnutrition (CMS/HCC) ([facility]) on their problem list. No Known Allergies [...] up and pulling self forward. Assisted by JEWELRY SALES ASSOCIATE to push bottom back in chair from [...] P: Continue dysphagia POC. Treatment Plan Requires JEWELRY SALES ASSOCIATE Intervention: Yes Frequency/Duration: Frequency of Treatment: 3 days/wk for Duration of Treatment: 2 weeks Therapy Time JEWELRY SALES ASSOCIATE Individual Minutes Time In: 1003 Time Out: 1022 Minutes: 19 BRITTNY Mattson 01/26/2023 12:36 PM Report given to Lauren at [facility]. Occupational Therapy Facility/Department: [facility] Occupational Therapy Treatment NAME: Tiat Keith : 1935 Date of Service: 01/26/2023 Discharge Recommendations: Subacute/Fdc Facility Assessment Performance deficits / Impairments: Decreased [...] assisted with ~5 mins of breakfast before vocational nursing instructor was addressed to finish assisting if needed. 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 JEWELRY SALES ASSOCIATE attempted to reposition pt upright for the [...] unable to squeeze towel resistance independently, required JEWELRY SALES ASSOCIATE to hold towel and break was provided [...] potential upgrade as tolerated. Treatment Plan Requires JEWELRY SALES ASSOCIATE Intervention: Yes Frequency/Duration: Frequency of Treatment: 3 days/wk for Duration of Treatment: 2 weeks Therapy Time JEWELRY SALES ASSOCIATE Individual Minutes Time In: 0950 Time Out: 1005 Minutes: 15 RENE Astorga 01/25/2023 10:12 AM Department of Family Medicine [...] DO 01/25/23 7:27 PM Speech-Language Pathology Facility/Department: [address] DYSPHAGIA TREATMENT NAME: Tita Keith : 1935 ADMISSION DATE: 01/17/2023 ADMITTING DIAGNOSIS: has New onset type 2 diabetes mellitus (CMS/HCC) ([facility]); Hyperosmolar hyperglycemic state (HHS) ([facility]); Hyperglycemia; and Severe malnutrition (CMS/HCC) ([facility]) on their problem list. No Known Allergies [...] treatment Therapeutic Interventions: Therapeutic PO trials with JEWELRY SALES ASSOCIATE Compensatory Swallowing Strategies Compensatory Swallowing Strategies : [...] Response: Needs reinforcement P: Treatment Plan Requires JEWELRY SALES ASSOCIATE Intervention: Yes Frequency/Duration: Frequency of Treatment: 3 days/wk for Duration of Treatment: 2 weeks Therapy Time JEWELRY SALES ASSOCIATE Individual Minutes Time In: 1341 Time Out: [...] Pending the following - chantal STOUT DO 04/05/23 8:43 PM Physical Therapy Facility/Department: [facility] Physical Therapy Daily Treatment Note NAME: Tita Keith : 1935 Date of Service: 01/23/2023 Discharge Recommendations: Subacute/Fdc Facility PT Equipment Recommendations Equipment Needed: (TBD [...] Inpatient Mobility Raw Score: 10 Mobility Inpatient [facility] G-Code Modifier: CL Goals Encounter Problems [...] (gait) Juliette Aguillon PTA Occupational Therapy Facility/Department: [facility] Occupational Therapy Treatment NAME: Tita Keith : 1935 Date of Service: 01/23/2023 Discharge Recommendations: Subacute/Fdc Facility Assessment Performance deficits / Impairments: Decreased [...] needed Therapy Time Individual Co-treatment Time In 0958 Time Out 1021 Minutes 23 Timed Code Treatment Minutes: 23 Minutes (2 ADL) CARMINA Christianson Speech-Language Pathology Facility/Department: [address] DYSPHAGIA TREATMENT NAME: Tita Keith : 1935 ADMISSION DATE: 01/17/2023 ADMITTING DIAGNOSIS: has New onset type 2 diabetes mellitus (CMS/HCC) ([facility]); Hyperosmolar hyperglycemic state (HHS) ([facility]); Hyperglycemia; and Severe malnutrition (CMS/HCC) ([facility]) on their problem list. No Known Allergies [...] Dinner Select supplement: Chocolate Ensure Plus 01/20/23 1021 Pain: no current complaints. S: Pt was [...] treatment Therapeutic Interventions: Therapeutic PO trials with JEWELRY SALES ASSOCIATE Compensatory Swallowing Strategies Compensatory Swallowing Strategies : [...] to assist with clearing. Treatment Plan Requires JEWELRY SALES ASSOCIATE Intervention: Yes Frequency/Duration: Frequency of Treatment: 3 days/wk for Duration of Treatment: 2 weeks Therapy Time JEWELRY SALES ASSOCIATE Individual Minutes Time In: 824 Time Out: 0845 Minutes: 20 BRITTNY Mattson 01/23/2023 9:40 AM Department of Family Medicine Daily Progress Note Subjective Chief Complaint (required for billing): Hyperosmolar hyperglycemic state (HHS) (HCC) Pt doing ok today daughter at the [...] lovenox # Anticipated Discharge - Date - -2 d - Location - Skilled Facility - Pending the following - chantal STOUT DO 01/23/23 8:03 PM Speech-Language Pathology This JEWELRY SALES ASSOCIATE was able to reach pt's daughter to discuss MBS. She verbalized understanding of aspiration risk (food getting into airway). She was ok with current diet, assistance with eating and changing his meats to puree. He is not able to chew even the ground/chopped meats. Recommend continue po with assist and strategies as previously stated in MBS note. Kirsty Ray MA, [facility]/JEWELRY SALES ASSOCIATE Speech Language Pathologist Department of Family Medicine [...] DO 01/22/23 9:54 PM Occupational Therapy Facility/Department: [address] Occupational Therapy Treatment NAME: Tita Keith : 1935 Date of Service: 01/21/2023 Discharge Recommendations: Subacute/ [facility] facility Assessment Performance deficits / Impairments: Decreased [...] DO 01/21/23 7:58 PM Physical Therapy Facility/Department: [facility]S Physical Therapy Daily Treatment Note NAME: Tita Keith : 1935 Date of Service: 01/21/2023 Discharge Recommendations: Subacute/Fdc Facility PT Equipment Recommendations Equipment Needed: (TBD [...] encounter diagnosis was Hyperosmolar hyperglycemic state (HHS) ([facility]). has a past medical history of Dementia [...] Inpatient Mobility Raw Score: 10 Mobility Inpatient [facility] G-Code Modifier: CL Goals Encounter Problems [...] Aguillon PTA This nurse was informed by nursing administrator that patient BG this morning was 52. 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 male who presents to the emergency department with chief complaint of generalized weakness. He has a history of dementia, but is baseline oriented to what only. He comes from fdc facility. Reportedly at his facility the last [...] questions answered.Principal Problem: Hyperosmolar hyperglycemic state (HHS) ([facility]) Active Problems: Hyperglycemia DM 2 with hyperglycemia Dysphagia HTN HPL Plan MBS on Sunday Plan is for snf placementTO HAVE MBS Estimated Daily Nutrient Needs: Energy Requirements Based On: Kcal/kg Weight Used for Energy Requirements: [place] Weight for Energy Calculation (kg): 86 kg Total Energy Requirements (kcals/day): 22-25 or 3053-2817 Weight Used for Protein Requirements: [place] Weight in Kg Used for Protein Requirements: [...] lb 14.3 oz) Weight Source: Bed Scale [place] Body Weight (lbs) (Calculated): 190 lbs [place] Body Weight (Kg) (Calculated): 86 kg % [place] Body Weight (Calculated): 58.4 % BMI (kg/m2) [...] Oral Nutrition Supplement Mayra Man RD Contact: *[phone] or secure chat Department of Family Medicine [...] DO 01/20/23 3:16 PM Speech-Language Pathology Facility/Department: [facility] [id number] DYSPHAGIA TREATMENT NAME: Tita Keith : 1935 ADMISSION DATE: 01/17/2023 ADMITTING DIAGNOSIS: has New onset type 2 diabetes mellitus (CMS/HCC) (HCC); Hyperosmolar hyperglycemic state (HHS) (HCC); and Hyperglycemia on their problem list. No [...] Diet tolerance monitoring, Therapeutic PO trials with JEWELRY SALES ASSOCIATE, Patient/Family education Compensatory Swallowing Strategies Compensatory Swallowing [...] of the swallow/determine LRD. Treatment Plan Requires JEWELRY SALES ASSOCIATE Intervention: Yes Frequency/Duration: Frequency of Treatment: 3 days/wk for Duration of Treatment: 2 weeks Therapy Time JEWELRY SALES ASSOCIATE Individual Minutes Time In: 1240 Time Out: 1300 Minutes: 20 RENE Astorga 01/19/2023 1:01 PM Physical Therapy Facility/Department: [address] Physical Therapy Daily Treatment Note NAME: Tita Keith : 1935 Date of Service: 01/19/2023 Discharge Recommendations: Subacute/Fdc Facility PT Equipment Recommendations Equipment Needed: (TBD [...] Inpatient Mobility Raw Score: 8 Mobility Inpatient CMS G-Code Modifier: CM Goals Encounter Problems Encounter [...] 1935 Date of Service: 01/19/2023 Discharge Recommendations: Subacute/Fdc Facility Assessment Performance deficits / Impairments: Decreased [...] cachexia & uncontrolled DM. Physical Therapy Facility/Department: [address] Physical Therapy Initial Evaluation NAME: Tita Keith : 1935 Date of Service: 01/18/2023 Discharge Recommendations: Subacute/Fdc Facility PT Equipment Recommendations Equipment Needed: (TBD [...] encounter diagnosis was Hyperosmolar hyperglycemic state (HHS) ([facility]). has a past medical history of Dementia [...] device?: Yes Transfer Assistance: Needs assistance Active Dot Compliance Coordinator: No Occupation: Retired Objective Observation/Palpation Posture: Fair [...] Inpatient Mobility Raw Score: 8 Mobility Inpatient CMS G-Code Modifier: CM Goals Encounter Problems Encounter [...] needed Therapy Time Individual Co-treatment Time In 0916 (co-eval with OT) Time Out 0935 Minutes 19 Fatou Emanuel PT Occupational Therapy Facility/Department: ED Occupational Therapy Initial Evaluation NAME: Tita Keith : 1935 Date of Service: 01/18/2023 Having reviewed the treatment plan and goals for this patient, I certify that the plan of care below is medically necessary and appropriate. Discharge Recommendations: Subacute/Fdc Facility OT Equipment Recommendations Equipment Needed: No Assessment Performance deficits / Impairments: Decreased functional mobility , Decreased endurance, Decreased ADL status, Decreased strength, Decreased balance, Decreased safe awareness, Decreased cognition Assessment: Pt admitted to ED on 01/17 with high blood sugars (>500). Pt dx with JUDICIAL ASSISTANT. At baseline, pt is A&O x1. Per his daughter, pt was at [facility] and was ambulating independently but requiring [...] device?: Yes Transfer Assistance: Needs assistance Active Dot Compliance Coordinator: No Occupation: Retired Objective Gross Assessment: Yes [...] OT Sent for cosign: Speech-Language Pathology Facility/Department: [facility] ED CLINICAL BEDSIDE SWALLOW EVALUATION NAME: Tita [...] water and while taking medications since in [place]. Pain: Pain Assessment Pain Assessment: No/denies pain Pain Score: 0 - No pain Reason for Referral ED Note: 87 y.o. male who presents to the emergency department with chief complaint of generalized weakness. He has a history of dementia, but is baseline oriented to what only. He comes from fdc facility. Reportedly at his facility the last [...] time. Principal Problem: Hyperosmolar hyperglycemic state (HHS) ([facility]) Tita Keith was referred for a bedside [...] and single drinks. Throat clear and reswallow. JEWELRY SALES ASSOCIATE will assess need for further testing. (daughter indicated periods of spitting up food at times). Treatment Plan Requires JEWELRY SALES ASSOCIATE Intervention: Yes Frequency/Duration: 3 days/wk for 2 weeks Recommended Diet and Intervention Diet Solids Recommendation: Dysphagia Minced and Moist (Dysphagia II) Liquid Consistency Recommendation: Thin Recommended Form of Meds: Crushed in puree as able Recommendations: Dysphagia treatment Therapeutic Interventions: Diet tolerance monitoring, Patient/Family education, Therapeutic PO trials with JEWELRY SALES ASSOCIATE Compensatory Swallowing Strategies Compensatory Swallowing Strategies : [...] water and while taking medications since in [facility]. Consistencies Administered: Reg solid, Dysphagia Soft and [...] foods decreased overt pharyngeal deficits. Therapy Time JEWELRY SALES ASSOCIATE Individual Minutes Time In: 0956 Time Out: [...] in correct syringe. documented in this encounter [facility] 01-26-2023 Note Formatting of this n ote might be different from the original. Patient has active discharge order in place. Patient to discharge to [facility] today. [employer] Principal set up transport for 11 am. Ben Martell notified. PIZZA [employer] to send pasrr through [employer]. [facility] 01-26-2023 Note Formatting of this n ote might be different from the original. Patient has active discharge order in place. Patient to discharge to [facility] today. [employer] Principal set up transport for 11 am. Ben Martell notified. PIZZA MAKER to send pasrr through [employer]. [facility] 01-25-2023 Plan of care note The [...] Progressing Goal: Promote nutritional intake Outcome: Progressing [facility] 01-25-2023 Note Formatting of this n ote might be different from the original. Notified by [facility] that they are not willing to accept patient back at this time, ben Martell notified. I faxed over confidential line the therapy notes that was used for the insurance to deny SNF level of care to the [place]. Talked to ben Martell and stated I will request for therapy to re-evaluate on 01/26 and I will fax an appeal to [facility] [phone], reference number [id number] and will wait up to 72 hours for the appeal process do be either approved or denied. [facility] states they have a LTC bed available if the family is interested. The family will discuss possible move from the [place] and call me tomorrow with decision. Dr Stout updated. Transport discontinued and discharge held. T [facility] 01-25-2023 Note Formatting of this n ote might be different from the original. Notified by [facility] that they are not willing to accept patient back at this time, ben Martell notified. I faxed over confidential line the therapy notes that was used for the insurance to deny SNF level of care to the [place]. Talked to ben Martell and stated I will request for therapy to re-evaluate on 01/26 and I will fax an appeal to [facility] [phone], reference number [id number] and will wait up to 72 hours for the appeal process do be either approved or denied. [facility] states they have a LTC bed available if the family is interested. The family will discuss possible move from the [place] and call me tomorrow with decision. Dr Stout updated. Transport discontinued and discharge held. [facility] Myla 01-25-2023 Nurse Note Pt is heavy 2 assistance to chair. Inconsistent with prior PT notes. PT to re-evaluate tomorrow 01/26. [facility] 01-25-2023 Nurse Note Pt is heavy 2 assistance to chair. Inconsistent with prior PT notes. PT to re-evaluate tomorrow 01/26. documented in this encounter [facility] 01-25-2023 Note Formatting of this n ote might be different from the original. S/W, follow up TCC indicated patient needs transport to [facility]. Transport set via [facility] at 3p. Staff aware Patient placed on cot due to Dementia, Aox1-2, Cot for Safety. Family aware. Transport has been cancelled as AL not accepting patient back. [facility] 01-25-2023 Note Formatting of this n ote might be different from the original. S/W, follow up TCC indicated patient needs transport to [facility]. Transport set via [facility] at 3p. Staff aware Patient placed on cot due to Dementia, Aox1-2, Cot for Safety. Family aware. Transport has been cancelled as AL not accepting patient back. [facility] 01-25-2023 Plan of care note Problem: Knowledge Deficit [...] is maintained or improved Outcome: Not Progressing [facility] 01-25-2023 Note Formatting of this n ote might be different from the original. [facility] notified me that [employer] is requesting a P2P today by noon. The phone number provided is option 4. Dr Stout notified via confidential message. [facility] states they got the call yesterday, but left message with the weekend TCC. Dr Stout notified me that she is in the office today seeing patients and is unable to complete the P2P. Call placed to ben Cordero and explained that patient will return today to [facility] with HHC. Updated [facility] Aleshia to assist with setting up HHC at the facility. Kayleigh states she would like a ambulance transport to be set up. I explained that patient could be charged some out of pocket costs for the transport and she is verbalizes understanding and is agreeable with us setting up transport to the [place]. [facility] 01-25-2023 Note Formatting of this n ote might be different from the original. [facility] notified me that [employer] is requesting a P2P today by noon. The phone number provided is option 4. Dr Stout notified via confidential message. [facility] Jeffrey Dailey states they got the call yesterday, but left message with the weekend TCC. Dr Stout notified me that she is in the office today seeing patients and is unable to complete the P2P. Call placed to Kayleigh Scott, ben and explained that patient will return today to [facility] with C. Updated [facility] Aleshia to assist with setting up HHC at the facility. Kayleigh states she would like a ambulance transport to be set up. I explained that patient could be charged some out of pocket costs for the transport and she is verbalizes understanding and is agreeable with us setting up transport to the [place]. [facility] 01-25-2023 Plan of care note The [...] Progressing Goal: Promote nutritional intake Outcome: Progressing [facility] 01-24-2023 Plan of care note The [...] 01/24/20231754 by Edis Palomino RN Outcome: Progressing [facility] 01-24-2023 Note Formatting of this n ote might be different from the original. Sent updated notes (PT/OT/Md) to [facility] via [facility] per TCC request. Await review and response regarding ability to accept. TCC notified. [facility] 01-24-2023 Note Formatting of this n ote might be different from the original. Sent updated notes (PT/OT/Md) to [facility] via [employer] per TCC request. Await review and response regarding ability to accept. TCC notified. [facility] 01-24-2023 Note Formatting of this n ote might be different from the original. Patient Choice Patient Name: TITA KEITH Date of : 1935 All Providers Sent Referral Name: [employer]. Address: [address] [place] [address] Name: [facility] Address: [address] [place] [address] Name: [facility] Phone: [phone] Address: [address] [place] [address] [facility] 01-24-2023 Note Formatting of this n ote might be different from the original. Patient Choice Patient Name: TITA KEITH Date of : 1935 All Providers Sent Referral Name: [employer]. Address: [address] [place] [address] Name: [facility] Address: [address] [place] [address] Name: [facility] Phone: [phone] Address: [address] [place] [address] [facility] 01-24-2023 Note Formatting of this n ote is different from the original. Images from the original note were not included. Care Management Progress Note Patient medically stable for discharge today with active discharge in place since Monday 01/22. Medication management per medical team. Chronic silverio in place. Therapy seen on 01/23. [facility] requesting updated therapy notes. Request for STEREOTYPE MOLDER to send via [employer] today. Auth has been pending since 01/19 through [employer]. [facility] to receive approval today. Discharge Milestones and Delays Expected Date/Time: 01/23/2023 Midday Disposition: Fdc Facility Transport status: No current request Discharge [...] Stay (Days): 0 GMLOS: No GMLOS Documented [facility] 01-24-2023 Note Formatting of this n ote is different from the original. Images from the original note were not included. Care Management Progress Note Patient medically stable for discharge today with active discharge in place since Monday 01/22. Medication management per medical team. Chronic silverio in place. Therapy seen on 01/23. [facility] requesting updated therapy notes. Request for STEREOTYPE MOLDER to send via [employer] today. Auth has been pending since 01/19 through [employer]. [facility] to receive approval today. Discharge Milestones and Delays Expected Date/Time: 01/23/2023 Midday Disposition: Fdc Facility Transport status: No current request Discharge [...] Stay (Days): 0 GMLOS: No GMLOS Documented [facility] [employer] Myla 01-24-2023 Plan of care note The patient [...] Progressing Goal: Promote nutritional intake Outcome: Progressing [facility] [employer] [facility] 01-23-2023 Note Formatting of this n ote might be different from the original. Spoke to Mckenzie with admissions today at [facility] and she states that insurance auth is still pending. Will continue to await approval/denial. Will update Dr Stout via confidential message. T [facility] 01-23-2023 Note Formatting of this n ote might be different from the original. Spoke to Mckenzie with admissions today at [facility] and she states that insurance auth is still pending. Will continue to await approval/denial. Will update Dr Stout via confidential message. T [facility] 01-22-2023 Plan of care note The patient [...] Progressing Goal: Promote nutritional intake Outcome: Progressing [facility] 01-22-2023 Note Formatting of this n ote might be different from the original. S/W, follow up After Hours Forms placed on patient chart in the event insurance approval come back later today. PAS-ID completed in [facility] 01-22-2023 Note Formatting of this n ote might be different from the original. S/W, follow up After Hours Forms placed on patient chart in the event insurance approval come back later today. PAS-ID completed in [facility]ENS [facility] 01-22-2023 Plan of care note Problem: [...] following goals. Barriers to progression include cognition. [facility] 01-22-2023 Procedure note Images from the original note were not included. SPEECH LANGUAGE PATHOLOGY MODIFIED BARIUM SWALLOW STUDY Patient Name: Tita Keith : 1935 Today's Date: 01/22/2023 Visit Info / [facility] ADMISSION DATE: 01/17/2023 ADMITTING DIAGNOSIS: has New onset type 2 diabetes mellitus (CMS/HCC) ([facility]); Hyperosmolar hyperglycemic state (HHS) (HCC); Hyperglycemia; and Severe malnutrition (CMS/HCC) ([facility]) on their problem list. General Information Ordering Physician: Dr. Kayleigh Stout MD Radiologist: Dr. Christiano Larson Date of Onset: 01/17/23 Type of Study: Initial MBS Current Diet Solid Consistency: Dysphagia Pureed (Dysphagia I) Current Diet Liquid Consistency: Mildly Thick ([place]) Patient complaints: Pt without complaints. Pt with intermittent coughing with po. Referring Diagnosis: Dysphagia, dementia, hyperglycemic Consistencies Administered: Dysphagia Pureed (Dysphagia I), [place] cup, Thin cup Procedure Method: Cup, Feed [...] Vellecular residuals with all-moderate thin, severe pudding, [id number]-[id number] (difficulty to determine d/t unable to completely [...] able. Plan & Recommendations Recommendations/Treatment: Recommendations/Treat Requires JEWELRY SALES ASSOCIATE Intervention: Yes Recommendations comment: Recommend Palliative diet [...] intake Therapeutic Interventions: Therapeutic PO trials with JEWELRY SALES ASSOCIATE Education Given: diet recommendations Education Response: Needs reinforcement Prognosis: Prognosis Prognosis for safe diet advancement: fair Barriers to reach goals: cognitive deficits, age Barriers/Prognosis Comment: Pt is at risk for aspiration with pharyngeal residuals. Individuals consulted Consulted and agree with results and recommendations: Patient, Physician (Call/message to Call JEWELRY SALES ASSOCIATE left for pt's daughter.) The patient was [...] Expected End: 02/02/23 Met: 01/22/23 Therapy Time JEWELRY SALES ASSOCIATE Individual Minutes Time In: 1005 Time Out: 1025 Minutes: 20 BRITTNY Mattson [facility] 01-22-2023 Procedure note Images from the original note were not included. SPEECH LANGUAGE PATHOLOGY MODIFIED BARIUM SWALLOW STUDY Patient Name: Tita Keith : 1935 Today's Date: 01/22/2023 Visit Info / [facility] ADMISSION DATE: 01/17/2023 ADMITTING DIAGNOSIS: has New [...] I) Current Diet Liquid Consistency: Mildly Thick ([place]) Patient complaints: Pt without complaints. Pt with intermittent coughing with po. Referring Diagnosis: Dysphagia, dementia, hyperglycemic Consistencies Administered: Dysphagia Pureed (Dysphagia I), [place] cup, Thin cup Procedure Method: Cup, Feed [...] Vellecular residuals with all-moderate thin, severe pudding, vejvaave-unfyjq-kthojy (difficulty to determine d/t unable to completely [...] able. Plan & Recommendations Recommendations/Treatment: Recommendations/Treat Requires JEWELRY SALES ASSOCIATE Intervention: Yes Recommendations comment: Recommend Palliative diet [...] intake Therapeutic Interventions: Therapeutic PO trials with JEWELRY SALES ASSOCIATE Education Given: diet recommendations Education Response: Needs reinforcement Prognosis: Prognosis Prognosis for safe diet advancement: fair Barriers to reach goals: cognitive deficits, age Barriers/Prognosis Comment: Pt is at risk for aspiration with pharyngeal residuals. Individuals consulted Consulted and agree with results and recommendations: Patient, Physician (Call/message to Call JEWELRY SALES ASSOCIATE left for pt's daughter.) The patient was [...] Expected End: 02/02/23 Met: 01/22/23 Therapy Time JEWELRY SALES ASSOCIATE Individual Minutes Time In: 1005 Time Out: 1025 Minutes: 20 BRITTNY Mattson documented in this encounter [facility] 01-22-2023 Note Formatting of this n ote is different from the original. Images from the original note were not included. Care Management Progress Note Patient remains on [address] today with generalized weakness, Hyperglycemia, improving. MBS today for difficulty, JEWELRY SALES ASSOCIATE following. Patient plans to discharge to [facility] with insurance authorization pending. Called and spoke to Mckenzie in Admissions today and she states auth is still pending. Discharge Milestones and Delays Expected Date/Time: 01/19/2023 Disposition: Fdc Facility Discharge Milestones Place discharge order Complete [...] Stay (Days): 0 GMLOS: No GMLOS Documented [facility] 01-22-2023 Note Formatting of this n ote is different from the original. Images from the original note were not included. Care Management Progress Note Patient remains on 4 [facility] today with generalized weakness, Hyperglycemia, improving. MBS today for difficulty, JEWELRY SALES ASSOCIATE following. Patient plans to discharge to [facility] with insurance authorization pending. Called and spoke to Mckenzie in Admissions today and she states auth is still pending. Discharge Milestones and Delays Expected Date/Time: 01/19/2023 Disposition: Fdc Facility Discharge Milestones Place discharge order Complete [...] Stay (Days): 0 GMLOS: No GMLOS Documented [facility] 01-21-2023 Note Formatting of this n ote might be different from the original. Reviewed [employer]. NO authorization has been obtained a this time. Will update attending and primary care nurse if auth obtained over the weekend. [facility] 01-21-2023 Note Formatting of this n ote might be different from the original. Reviewed [employer]. NO authorization has been obtained a this time. Will update attending and primary care nurse if auth obtained over the weekend. [facility] 01-20-2023 Hospital Discharg e instructions Margarita Herrera RN - 01/19/2023 9:05 AM EDT Continuity of Care Form Patient Name: Tita Keith : 1935 Admit date: 01/17/2023 Discharge date: 01/26 Code Status Order: DNR-CCA Advance Directives: N Admitting Physician: Kayleigh Stout DO PCP: No primary care provider on file. 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 Minimal assistance Med Delivery yes Wound Care [...] Score: @READMISSIONRISKDETAILS@ Discharging to Facility/ Agency Name: [facility] Address: [address] [place] [address] Fax: Dialysis Facility (if applicable) Name: Address: Dialysis Schedule: Phone: Fax: Fur Ironer/Board Finisher signature: ICIAN SECTION Prognosis: fair Condition at Discharge: stable Rehab Potential (if transferring to Rehab): fair Recommended Labs or Other Treatments After Discharge: none Physician Certification: I certify the above information and transfer of Tita Keith is necessary for the continuing treatment of the diagnosis listed and that he requires fdc facility for greater than 30 days. Update Admission H&P: No change in H&P PHYSICIAN SIGNATURE: documented in this encounter [facility] 01-20-2023 Miscellaneous Notes Patient has active discharge order in place. Patient to discharge to [facility] today. [employer] Principal set up transport for 11 am. Daughter Kayleigh notified. [facility] to send pasrr through [facility]. The patient is Moderately Stable - Low [...] nutritional intake Outcome: Progressing Notified by [facility] that they are not willing to accept patient back at this time, daughter Kayleigh notified. I faxed over confidential line the therapy notes that was used for the insurance to deny SNF level of care to the [place]. Talked to daughter Kayleigh and stated I will request for therapy to re-evaluate on 01/26 and I will fax an appeal to [facility] [phone], reference number [id number] and will wait up to 72 hours for the appeal process do be either approved or denied. [facility] states they have a LTC bed available if the family is interested. The family will discuss possible move from the [place] and call me tomorrow with decision. Dr Stout updated. Transport discontinued and discharge held. S/W, follow up TCC indicated patient needs transport to [facility]. Transport set [facility] at [...] is maintained or improved Outcome: Not [facility]ing [facility] [place] notified me that [facility] is requesting a P2P today by noon. The phone number provided is option 4. Dr Stout notified via confidential message. [facility] states they got the call yesterday, but left message with the weekend TCC. Dr Stout notified me that she is in the office today seeing patients and is unable to complete the P2P. Call placed to Kayleigh Scott, daughter and explained that patient will return today to [facility] with [facility]. Updated [facility] Aleshia to assist with setting up HHC at the facility. Kayleigh states she would like a ambulance transport to be set up. I explained that patient could be charged some out of pocket costs for the transport and she is verbalizes understanding and is agreeable with us setting up transport to the [place]. The patient is Moderately Stable - Low [...] Outcome: Progressing Sent updated notes (PT/OT/Md) to [facility] via [employer] per TCC request. Await review and response regarding ability to accept. TCC notified. Patient Choice Patient Name: TITA KEITH Date of : 1935 All Providers Sent Referral Name: [facility], [facility]. Address: [address] [place] [address] Name: [facility] Address: [address] [place] [address] Name: [facility] Phone: [phone] Address: [address] [id number] Images from the original note were not included. Care Management Progress Note Patient medically stable for discharge today with active discharge in place since Monday 01/22. Medication management per medical team. Chronic silverio in place. Therapy seen on 01/23. [facility] requesting updated therapy notes. Request for STEREOTYPE MOLDER to send via [employer] today. Auth has been pending since 01/19 through [employer]. Hope to receive approval today. Discharge Milestones and Delays Expected Date/Time: 01/23/2023 Midday Disposition: Fdc Facility Transport status: No current request Discharge [...] Spoke to Mckenzie with admissions today at [facility] and she states that insurance auth is [...] come back later today. PAS-ID completed in [facility] Problem: Knowledge Deficit Goal: Patient/family/caregiver demonstrates understanding [...] weakness, Hyperglycemia, improving. MBS today for difficulty, JEWELRY SALES ASSOCIATE following. Patient plans to discharge to [facility] with insurance authorization pending. Called and spoke to Mckenzie in Admissions today and she states auth is still pending. Discharge Milestones and Delays Expected Date/Time: 01/19/2023 Disposition: Fdc Facility Discharge Milestones Place discharge order Complete [...] (Days): 0 GMLOS: No GMLOS Documented Reviewed careport. NO authorization has been obtained a this time. Will update attending and primary care nurse if auth obtained over the weekend. Reviewed careport. No authorization obtained. Did call and speak with Linh at [facility] [phone] and request that she call me if auth obtained.. [facility], Mckenzie called today and stated they are willing to accept and that they are going to proceed with starting insurance authorization. Dr Stout notified via confidential message. Referral placed to [facility]- [facility] via Care[employer] per TCC request. Await review and response regarding ability to accept. TCC notified. Request for STEREOTYPE MOLDER to place referrals to [facility], [facility], and [facility]. Will wait for accepting facility to start insurance auth. Weekend TCC to be updated via [employer] for possible weekend discharge. Tasked weekend therapy to request patient to have updated notes on Sunday via Care[employer]. Care Managment Initial Assessment Date: 01/19/2023 Patient Name: Tita Keith : 1935 Patient Information Source of Information: Patient Conveyor Belt Installer Name/Contact Information: Kayleigh Soctt Cognition/Language: Confused at baseline (history of dementia) Permission given to speak with patient agricultural sales representative/caregiver as indicated: Yes Confirmation of Payer with patient/family: Yes Payer Name: [employer]elf[employer] Medicare [place]: No Confirmation of Primary Care Physician: Confirmed PCP Name: Marj Plasencia Seen in last 2 years?: Yes Primary Caregiver: Other (Comment) (Staff at facility) If assistance needed, confirmed caregiver ready, willing and able to care for patient at discharge: Yes Confirmed with: [place] staff at [facility] Living Arrangements Current Residence: (Assisted Living) Number of Floors 1 Number of Entry Steps: (Level Entry) Bed/Bath Levels: Both first floor Facility: Assisted Living Facility Name: [facility] in [place], [place] memory care Plan to Return: Yes (after rehab) Lives with: Alone Support Systems: commercial manager/rn social work, Family members, Children, Therapist Activities of Daily [...] Yes (Transport to be set up by [facility] for rehab) Meal Preparation: Assistance Provider Meal [...] be discharged to: SNF Vs Home with [facility] Discharge Planning Actions: Continue to follow, Fdc Facility referral indicated [place] of choice: [place] of choice discussed Patient's Choice Rights and [employer] and Collaborative Relationships Disclosed as Indicated for Post-Acute Care: Yes Interdisciplinary Team Engagement: PT/OT, Home Health Care Social Work Referral for: Additional Information: Patient is from [facility] with memory care. He at baseline uses a rollator/WC to ambulate. He has medical insurance with prescription coverage. Admitted for generalized weakness/falls. Reports of patient being non ambulatory. Difficulty swallowing, JEWELRY SALES ASSOCIATE seen and Dysphagia diet. Hyperglycemia, DM2. IVF. CT head neg. CXR neg. UA neg. Therapy recommending SNF. Called daughter to review discharge plan and possible need for rehab prior to returning to [facility]. I left contact information via confidential voice mail and awaiting return call. Margarita Herrera RN documented in this encounter [facility] 01-20-2023 Note Formatting of this n ote might be different from the original. Reviewed careport. No authorization obtained. Did call and speak with Linh at [facility] [phone] and request that she call me if auth obtained.. [facility] 01-20-2023 Note Formatting of this n ote might be different from the original. Reviewed careport. No authorization obtained. Did call and speak with Linh at [facility] [phone] and request that she call me if auth obtained.. [facility] 01-19-2023 Note Formatting of this n ote might be different from the original. [facility] and that they are going to proceed with starting insurance authorization. Dr Stout notified via confidential message. [facility] 01-19-2023 Note Formatting of this n ote might be different from the original. [facility] are willing to [facility] and that they are going to proceed with starting insurance authorization. Dr Stout notified via confidential message. [facility] 01-19-2023 Note Formatting of this n ote might be different from the original. Referral placed to [facility] via [facility] per [facility] request. Await review and response regarding ability to accept. [facility] notified. T [facility] 01-19-2023 Note Formatting of this n ote might be different from the original. Referral placed to SNF- [facility] via Careport per TCC request. Await review and response regarding ability to accept. TCC notified. T [facility] 01-19-2023 Note Formatting of this n ote might be different from the original. Request for STEREOTYPE MOLDER to place referrals to [facility], [facility], and [facility]. Will wait for accepting facility to start insurance auth. Weekend TCC to be updated via Careport for possible weekend discharge. Tasked weekend therapy to request patient to have updated notes on Sunday via Careport. [facility] 01-19-2023 Note Formatting of this n ote might be different from the original. Request for STEREOTYPE MOLDER to place referrals to [facility], [facility], and [facility]. Will wait for accepting facility to start insurance auth. Weekend TCC to be updated via Careport for possible weekend discharge. Tasked weekend therapy to request patient to have updated notes on Sunday via Careport. [facility] 01-19-2023 Note Formatting of this n ote might be different from the original. Care Managment Initial Assessment Date: 01/19/2023 Patient Name: Tita Keith : 1935 Patient Information Source of Information: Patient Conveyor Belt Installer Name/Contact Information: Kayleigh Scott Cognition/Language: Confused at baseline (history of dementia) Permission given to speak with patient agricultural sales representative/caregiver as indicated: Yes Confirmation of Payer with patient/family: Yes Payer Name: Remi Medicare [place]: No Confirmation of Primary Care Physician: Confirmed PCP Name: Marj Plasencia Seen in last 2 years?: Yes Primary Caregiver: Other (Comment) (Staff at facility) If assistance needed, confirmed caregiver ready, willing and able to care for patient at discharge: Yes Confirmed with: [place] staff at [facility] Living Arrangements Current Residence: (Assisted Living) Number of Floors 1 Number of Entry Steps: (Level Entry) Bed/Bath Levels: Both first floor Facility: Assisted Living Facility Name: [facility] in [place], [place] memory care Plan to Return: Yes (after rehab) Lives with: Alone Support Systems: commercial manager/rn social work, Family members, Children, Therapist Activities of Daily [...] Yes (Transport to be set up by [facility] for rehab) Meal Preparation: Assistance Provider Meal [...] be discharged to: SNF Vs Home with [facility] Discharge Planning Actions: Continue to follow, [facility] Facility referral indicated [place] of choice: [place] of choice discussed Patient's Choice Rights and [employer] and Collaborative Relationships Disclosed as Indicated for Post-Acute Care: Yes Interdisciplinary Team Engagement: PT/OT, Home Health Care Social Work Referral for: Additional Information: Patient is from [facility] with memory care. He at baseline uses a rollator/WC to ambulate. He has medical insurance with prescription coverage. Admitted for generalized weakness/falls. Reports of patient being non ambulatory. Difficulty swallowing, JEWELRY SALES ASSOCIATE seen and Dysphagia diet. Hyperglycemia, DM2. IVF. CT head neg. CXR neg. UA neg. Therapy recommending SNF. Called daughter to review discharge plan and possible need for rehab prior to returning to [facility]. I left contact information via confidential voice mail and awaiting return call. Margarita Herrera RN [facility] 01-19-2023 Note Formatting of this n ote might be different from the original. Care Managment Initial Assessment Date: 01/19/2023 Patient Name: Tita Keith : 1935 Patient Information Source of Information: Patient Conveyor Belt Installer Name/Contact Information: Kayleigh Scott Cognition/Language: Confused at baseline (history of dementia) Permission given to speak with patient agricultural sales representative/caregiver as indicated: Yes Confirmation of Payer with patient/family: Yes Payer Name: [employer]elf[employer]isco Medicare [place]: No Confirmation of Primary Care Physician: Confirmed PCP Name: Marj Plasencia Seen in last 2 years?: Yes Primary Caregiver: Other (Comment) (Staff at facility) If assistance needed, confirmed caregiver ready, willing and able to care for patient at discharge: Yes Confirmed with: [place] staff at [facility] Living Arrangements Current Residence: (Assisted Living) Number of Floors 1 Number of Entry Steps: (Level Entry) Bed/Bath Levels: Both first floor Facility: Assisted Living Facility Name: [facility] in [place], [place] memory care Plan to Return: Yes (after rehab) Lives with: Alone Support Systems: commercial manager/rn social work, Family members, Children, Therapist Activities of Daily [...] Yes (Transport to be set up by [facility] for rehab) Meal Preparation: Assistance Provider Meal [...] be discharged to: SNF Vs Home with [facility] Discharge Planning Actions: Continue to follow, Fdc Facility referral indicated [place] of choice: [place] of choice discussed Patient's Choice Rights and [employer] and Collaborative Relationships Disclosed as Indicated for Post-Acute Care: Yes Interdisciplinary Team Engagement: PT/OT, Home Health Care Social Work Referral for: Additional Information: Patient is from [facility] with memory care. He at baseline uses a rollator/WC to ambulate. He has medical insurance with prescription coverage. Admitted for generalized weakness/falls. Reports of patient being non ambulatory. Difficulty swallowing, JEWELRY SALES ASSOCIATE seen and Dysphagia diet. Hyperglycemia, DM2. IVF. CT head neg. CXR neg. UA neg. Therapy recommending SNF. Called daughter to review discharge plan and possible need for rehab prior to returning to [facility]. I left contact information via confidential voice mail and awaiting return call. Margarita Herrera RN [facility] 01-18-2023 Emergency department Note Pt found again undressed with all wires pulled off. Moved patient to a closer room to nurses station. Fela Jameson RN 01/18/23 5601 [facility] 01-18-2023 Emergency department Note Pt found [...] Dr. Stout informed. Fela Jameson RN 01/18/23 0805 Introduced myself to patient and explained role. [...] us his birthday. Fela Jameson RN 01/18/23 3999 This RN called and spoke with Dr Stout to advise that pt is unable to swallow pills. Per Dr Stout hold patients PO meds. Chelsie Kelley RN 01/18/23 0318 Patient was able to void. Shira James [...] oriented to what only. He comes from fdc facility. Reportedly at his facility the last [...] Abnormal Glucose >450 (*) Narrative: Performed by: [facility], [address] [place] [address] CLIA ID: [id number] POCT VENOUS BLOOD GAS UNSOLICITED RESULTS - Abnormal pH, Venous 7.373 pCO2, Venous 48.8 pO2, Venous <29.6 (*) TCO2, Venous 29.9 (*) HCO3, Venous 28.4 (*) Base Excess, Venous 2.6 SO2, Venous 35.0 (*) FIO2 21 Narrative: Performed by: [facility], [address] [place] [address] CLIA ID: [id number] MANUAL DIFFERENTIAL - Abnormal Adjusted WBC 8.90 Polychromasia Rare (*) Ovalocytes Slight (*) [place] Cells Slight (*) WBC Morphology Normal PLT [...] Culture. Procedure Abnormality Status --------- ------ Complete Urinalysis[[id number]] Abnormal Final result Please view results for [...] Global volume loss with small vessel ischemia. [FL] 2107 XR chest 1 view IMPRESSION: No acute cardiopulmonary process identified. [FL] 2130 GLUCOSE(!!): 533 [FL] ED Course User Index [FL] Janet Lomeli MD Diagnoses as of 01/17/232148 [...] well determine disposition based off diagnostic testing. Wvcpl-ix-sjqn glucose is 450. Medications sodium chloride 0.9 [...] Lomeli MD Resident 01/17/232148 Emergency Department Encounter [facility] ED Patient: Tita Keith : 1935 Date of Evaluation: 01/17/2023 ED Supervising Physician: Karel Ghosh DO I independently examined and evaluated Tita Keith. This will serve as my Supervisory note as the stage driver of record and shared attestation. I did [...] for clarification.) Karel Ghosh DO [employer] Karel Ghosh DO 01/17/232141 Bed: 15 Expected date: Expected time: Means of arrival: Comments: Latasha Kelley RN 01/17/231954 Bed: 16 Expected date: Expected time: Means of arrival: Comments: Room 15 Chelsie Kelley RN 01/17/232134 documented in this encounter [facility] 01-18-2023 Emergency department Note Pt pulled male external catheter off himself by mistake. Provided patient with full bed change and new gown and pericare was performed. I did order lunch for patient and once it is here, will assist him with eating. New male external catheter was placed. No further concerns at this time. Fela Jameson RN 01/18/23 1236 [facility] 01-18-2023 History and physical note Department [...] oriented to what only. He comes from fdc facility. Reportedly at his facility the last [...] to med floor Cover with ssi Speech geni Pt/ot geni STOUT DO 01/18/23 9:27 AM T [facility] 01-18-2023 History and physical note Department [...] oriented to what only. He comes from fdc facility. Reportedly at his facility the last [...] to med floor Cover with ssi Speech geni Pt/ot geni STOUT DO 01/18/23 9:27 AM documented in this encounter [facility] 01-18-2023 Emergency department Note Gave patient a small sip of water. Patient tolerated fairly well but did display some trouble swallowing. Will continue to hold PO meds, Dr. Esterle informed. Fela Jameson RN 01/18/23 0832 [facility] 01-18-2023 Emergency department Note Introduced myself to patient and explained role. On arrival into patient room with JON Shira patient was undressed and needed slid back up in bed. Adjusted patient correctly, provided new gown for patient and placed a new male external catheter. Patient bed in lowest position, side rails x2, call light within reach. Pt is AxOx1- only to himself and is unable to tell us his birthday. Fela Jameson RN 01/18/23 0739 [facility] 01-17-2023 Emergency department Note This RN called and spoke with Dr Stout to advise that pt is unable to swallow pills. Per Dr Stout hold patients PO meds. Chelsie Kelley RN 01/18/23317 [facility] 01-17-2023 Emergency department Note Patient was able to void. Shira James LPN 01/17/232119 [facility] 01-17-2023 Emergency department Note Pt BGL was 577 on BGT machine. Confirmation drawn with patient initial bloodwork. Chelsie Kelley RN 01/17/232021 [facility] 01-17-2023 Emergency department Note Bed: 15 Expected date: Expected time: Means of arrival: Comments: Latasha Kelley RN 01/17/231954 [facility] 01-17-2023 Emergency department Note Bed: 16 Expected date: Expected time: Means of arrival: Comments: Room 15 Chelsie Kelley RN 01/17/232134 [facility] 01-17-2023 Physician Emergency department Note EMERGENCY [...] oriented to what only. He comes from fdc facility. Reportedly at his facility the last [...] Abnormal Glucose >450 (*) Narrative: Performed by: [facility], [address] [place] [id number] CLIA ID: [id number] POCT VENOUS BLOOD GAS UNSOLICITED RESULTS - Abnormal pH, Venous 7.373 pCO2, Venous 48.8 pO2, Venous <29.6 (*) TCO2, Venous 29.9 (*) HCO3, Venous 28.4 (*) Base Excess, Venous 2.6 SO2, Venous 35.0 (*) FIO2 21 Narrative: Performed by: [facility], [address] [place] [id number] CLIA ID: [id number] MANUAL DIFFERENTIAL - Abnormal Adjusted WBC 8.90 Polychromasia Rare (*) Ovalocytes Slight (*) [place] Cells Slight (*) WBC Morphology Normal PLT [...] Culture. Procedure Abnormality Status --------- ------ Complete Urinalysis[[id number]] Abnormal Final result Please view results for [...] Global volume loss with small vessel ischemia. [FL] 2107 XR chest 1 view IMPRESSION: No acute cardiopulmonary process identified. [FL] 2130 GLUCOSE(!!): 533 [FL] ED Course User Index [FL] Janet Lomeli MD Diagnoses as of 01/17/232148 [...] well determine disposition based off diagnostic testing. Ribgb-wk-sehe glucose is 450. Medications sodium chloride 0.9 [...] Emergency Medicine Provider Janet Lomeli MD Resident 01/17/23 2141 [facility] 01-17-2023 Physician Emergency department Note Emergency Department Encounter [facility] ED Patient: Tita Keith : 1935 Date of Evaluation: 01/17/2023 ED Supervising Physician: Karel Ghosh DO I independently examined and evaluated Tita Keith. This will serve as my Supervisory note as the stage driver of record and shared attestation. I did [...] for clarification.) Karel Ghosh DO [employer] Karel Ghosh DO 01/17/232141 [facility] Work Phone: 01-05-2023 Emergency department Note [facility] bedside to transport patient to facility. Discharge Packet provided to ambulance to return to facility. Chrystal Melendez RN 01/05/23421 [facility] 01-05-2023 Emergency department Note [facility] bedside to transport patient to facility. Discharge [...] Melendez RN 01/05/23 0324 Emergency Department Encounter [facility] ED Patient: Tita Keith : 1935 Date of Evaluation: 01/05/2023 ED Provider: Kee Mishra MD Note: I wore an N95 mask and gloves during this encounter. CHIEF COMPLAINT: Ground-level fall HPI: Tita Keith is a 87 y.o. male with PMH Per accompanying documentation and production tool engineer report history of dementia, hypertension, diabetes, not on antiplatelet or anticoagulation medication, presents from assisted living facility by production tool engineer with concern for ground-level fall. Paramedics provide [...] dictating provider for clarification. Kee Mishra MD [facility] Kee Mishra MD 01/05/23 0422 Patient brought via EMS to room 7 presenting with c/o of fall at facility; patient was up going to the bathroom and had an unwitnessed fall. Per intermediate patient is at cognitive baseline, upon assessment [...] handed to physician. documented in this encounter [facility] 01-05-2023 Emergency department Note Patient ambulated with two RN's and a walker, able to bear weight without complaints of pain. Chrystal Melendez RN 01/05/23 0346 [facility] 01-05-2023 Hospital Discharg e instructions Kee [...] through Care Everywhere.Closed Head Injury Discharge Instructions ([place])Contusion Discharge Instructions ([place])Conjunctivitis ([facility]) ED ([place])documented in this encounter [facility] 01-05-2023 Emergency department Note Family called RN into the room, patient requested a urinal, RN provided patient with a urinal, patient was able to urinate about 100mL into urinal but depends was soaked as well. RN got patient cleaned up and placed a new goan and new depends on patient; family remains bedside. Call light in reach. Chrystal Melendez RN 01/05/23 0324 [facility] 01-05-2023 Emergency department Triage note Patient brought via EMS to room 7 presenting with c/o of fall at facility; patient was up going to the bathroom and had an unwitnessed fall. Per intermediate patient is at cognitive baseline, upon assessment [...] reach. EKG completed and handed to physician. [facility] 01-05-2023 Physician Emergency department Note Emergency Department Encounter [facility] ED Patient: Tita Keith : 1935 Date of Evaluation: 01/05/2023 ED Provider: Kee Mishra MD Note: I wore an N95 mask and gloves during this encounter. CHIEF COMPLAINT: Ground-level fall HPI: Tita Keith is a 87 y.o. male with PMH Per accompanying documentation and production tool engineer report history of dementia, hypertension, diabetes, not on antiplatelet or anticoagulation medication, presents from assisted living facility by production tool engineer with concern for ground-level fall. Paramedics provide [...] for clarification. Kee Mishra MD Acute [facility] Kee Mishra MD 01/05/23421 [facility] 03-06-2022 Note Discharge Summary Tita Keith : [...] DIAGNOSTIC STUDIES: None CONSULTANTS: IP CONSULT TO OPERATIONAL TEST MECHANIC IP CONSULT TO ENDOCRINOLOGY MEDICATION CHANGES: Lantus and Seroquel were added , see med rec for details RECOMMENDED NEXT STEPS: Follow up with endocrine and PCP DISCHARGE MEDICATIONS: Medication List START taking these medications Insulin Pen Needle 32G X 6 MM [facility] Give lantus 8 units nightly Lantus SoloStar [...] Your Medications These medications were sent to [address] P [phone] - F [phone] [address] [place] [address] [place] [id number] ? Insulin Pen Needle 32G X 6 [...] Complexity: follow up within 7-14 calendar days (26914) [] Severe Complexity: follow up within 7 calendar days (64661) FOLLOW UP TESTING, PENDING RESULTS OR REFERRALS AT TRANSITIONAL CARE VISIT: [] Yes [] No PENDING STUDIES: No DISPOSITION: Home FACILITY/HOME CARE AGENCY NAME: Home health agency Follow up with Dudley Cobb MD [address] [place], [place] [id number] Schedule an appointment as soon as possible [...] SIGNED: Ilene Willingham MD 03/06/2022, 2:29 PM [facility] Evaluation note Diagnosis Fall from ground level- Primary Discharge of left eye [facility] Diagnosis Hyperosmolar hyperglycemic state (HHS) (HCC)- Primary Hyperosmolar hyperglycemic state (HHS) (HCC) Hyperglycemia Other abnormal glucose Severe malnutrition (CMS/HCC) (HCC) Nutritional marasmus [facility] Diagnosis COVID-19- Primary COVID-19 Hypoxia Hypoxemia Edema of right upper arm 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) [facility] noteNo assessment information availableWSelect Medical [facility] Work Phone: Evaluation note* Diagnosis Pneumonia [...] (HCC) Nutritional marasmus [facility] Diagnosis Closed nondisplaced intertrochanteric fracture of right femur, initial encounter ([facility])- Primary Closed nondisplaced intertrochanteric fracture of right femur, initial encounter ([facility]) [facility]* Diagnosis Closed nondisplaced intertrochanteric fracture of right femur, initial encounter ([facility])- Primary S/P ORIF (open reduction internal fixation) fracture [facility]* Diagnosis Closed nondisplaced intertrochanteric fracture of right femur, initial encounter ([facility])- Primary [facility] (n[facility]ative)* Consultation (Urgent) - Pending Review Specialty Diagnoses / Procedures Referred By Darlene t Referred To Contact Ophthalmology Diagnoses Fall from ground level Discharge of left eye Procedures FL OFFICE/OUTPATIENT [facility] 60-74 MINUTES Kee Mishra MD [address] [place] [address] [facility] [address] [facility] [address] [place] [address] Referral ID Status Reason Start Date Expiration Date Visits Requested Visits Authorized [id number] Pending Review Specialty Services Required 01/05/2023 01/05/2024 1 1 D[facility]ne [facility] (narrative)No reason for referral information availableWSelect Medical [facility] Work Phone: Summary Purpose Family History [...] Agents on File Name Relationship Healthcare Agent Cynhi p Communication [facility] Latest Code Status on File [...] Agents on File Name Relationship Healthcare Agent Cynok p Communication [facility] Advance Directive Response Recorded Date/ Time Living Will No September 23 3:59pm Power of Price Economist No September 23, 2023 3:59pm Documents on File Type Date Recorded 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 Advance Directives and Livin g [...] Communication Kayleigh Scott Child Health Care Agent Advance Directive Response Recorded Date/ Time Living Will No September 23 4:59pm Power of Price Economist No September 23, 2023 4:59pm Documents on File Type Date Recorded 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 Advance Directives and Living Will 12/13/2023 9:02 AM Advance Directives and Living Will 09/20/2023 11:51 AM DNR (Do Not Resuscitate) 04/02/2025 9:24 AM [place] DNR Form DNR (Do Not Resuscitate) 12/06/2023 [...] Relationship Healthcare Agent Relationshi p Communication Kayleigh Gonzalez Health Care Agent Chief Complaint and Reason for Visit Chief Complaint FALL Chief Complaint FALL LAB WORK LAB WORK LABWORK Chief Complaint FALL LAB WORK LAB WORK LABWORK LABWORK Chief Complaint LAB WORK LABWORK LABWORK LABWORK LAB WORK LABWORK LONG-TERM LAB WORK Chief Complaint LABWORK LABWORK LABWORK LAB WORK LABWORK LONG-TERM LAB WORK LONG-TERM LAB WORK Chief Complaint Admit Date LONG-TERM LAB WORK November 07, 2024 5:00am LABWORK February 12, 2025 5:0 0am Chief Complaint Admit Date LONG-TERM LAB WORK February 11, 2025 1 :40pm LABWORK February 12, 2025 5:0 0am LABWORK March 02, 2025 5:00a m Chief Complaint Admit Date LONG-TERM LAB WORK February 11, 2025 1 :40pm LABWORK February 12, 2025 5:0 0am LONG-TERM LAB WORK February 17, 2025 4 :00am LABWORK March 02, 2025 5:00a m Reason for Referral Specialty Diagnoses / Procedures Referred By Darlene robertson Referred To Contact Ruiz Braun MD [address] [facility], [facility] [address] [place] [address] Referral ID Status Reason Start Date Expiration Date V isits Requested Visits Authorized [id number] Pending Review 1 1 Additional Source Comments (unrecognized sect ion and content) No Status Records FoundNo Status Records FoundNo Status Records Found INFORMATION SOURCE (unrecogn ized section and content) DATE CREATED AUTHOR 08/17/2022 [facility] DATE CREATED AUTHOR AUTHOR'S ORGANIZ ATION 04/23/2025 [facility] DATE CREATED AUTHOR AUTHOR'S ORGANIZ ATION 08/19/2025 [facility] Reason for Visit (unrecogniz ed section and [...] Referred To Contact Diagnoses Hyperosmolar hyperglycemic state ([facility]) ([facility]) Procedures . Kayleigh Stout, DO [address] [place] [address] [facility] [address] [place] [address] Referral ID Status Reason Start Date Expiration Date Visits Re quested Visits Authorized [id number] 1 1 Reason Comments Shortness of Breath Specialty Diagnoses / Procedures Referred By Contac t Referred To Contact Diagnoses COVID-19 Procedures . Kayleigh Stout, DO [address] [place] [address] [facility] [address] [place] [address] Referral ID Status Reason Start Date Expiration Date Visits Re quested Visits Authorized [id number] 1 1 Reason Comments Shortness of Breath Fever Pnuemonia Specialty Diagnoses / Procedures Referred By Contac t Referred To Contact Diagnoses Pneumonia due to infectious organism, unspecified laterality, unspecified part of lung Procedures [id number] due to infectious organism, unspecified laterality, unspecified part of lung Kayleigh Stout, DO [address] [place] [address] [facility] [address] [place] [address] Referral ID Status Reason Start Date Expiration Date Visits Re quested Visits Authorized [id number] 1 1 Reason Comments Fall Pt had a fall last n ight at [facility]. [facility] performed an X-Ray that shows a right femur fracture. Pt is AxOx0 at baseline. Hip Pain Confirmed right femu r fracture. Specialty Diagnoses / Procedures Referred By Contac t Referred To Contact Diagnoses Closed nondisplaced intertrochanteric fracture of right femur, initial encounter ([facility]) Procedures . Shay Velazco MD [address] [place] [address] Phone: tel: fax: [facility] OR [address] [place] [address] Phone: tel: Referral ID Status Reason Start Date Expiration Date Visits Re quested Visits Authorized [id number] 22 Reason Onset Date Comments Other 04/02/2025 IPO [...] dose. 0358 (Given - Provid er: Chrystal Melendez RN) sodium chloride 0.9 % bolus 1,000 mL [...] or break. 1222 (Given - Provider: Edis Palomino, ISABEL)2020 (Not Given - Provider: Jana Silverio RN - Reason: Patient/family refused) 0805 (Given - Provider: Edis Palomino, ISABEL)2042 (Given - Provider: Maty Michael, ISABEL) 0920 (Not Given - Provider: Sherry Permetti, RN - Reason: Patient/family refused) enoxaparin (Lovenox) syringe 30 mg 30 mg, SubCUTAneous, Every 24 hours scheduled (Daily), First dose (after last modification) on Sun01/18/23 at 0900, Indication of Use: Prophylaxis-DVT/PE, Indications: [...] Palomino RN) 0029 (Given - Provider: Maty Michael RN)0523 (Given - Provider: Maty Michael RN)1200 (Canceled Entry - Provider: Automatic Discharge Provider - Comment: Automatically canceled at discontinue of medication order) insulin glargine (Lantus) injection 14 Units 14 Units, SubCUTAneous, Nightly, First dose on Sun01/17/23 at 2355 2020 (Given - Provider: Jana Silverio RN - Comment: 2049 (Given - Provider: Maty Michael, ISABEL) Insulin Lispro (Humalog) injection 0-18 Units(Linked Group [...] 203) 2048 (Given - Provider: Maty Michael, ISABEL) lisinopril tablet 20 mg 20 mg, Oral, Daily, First dose on Sun01/18/23 at 0900 1220 (Given - Provider: Edis Palomino, ISABEL) 0805 (Given - Provider: Edis Palomino RN) 09 (Given - Provider: Sherry Renteria, ISABEL) mirtazapine (Remeron) tablet 15 mg 15 mg, Oral, Nightly, First dose on Sun01/17/23 at 2355 2021 (Given - Provider: Jana Silverio, ISABEL) 2043 (Given - Provider: Maty Michael, ISABEL) QUEtiapine (SEROquel) tablet 12.5 mg 12.5 mg, Oral, 2 times daily, First dose (after last modification) on Sun01/19/23 at 1330 1222 (Given - Provider: Edis Palomino, RN)2021 (Given - Provider: Jana Silverio, ISABEL) 0805 (Given - Provider: Edis Palomino, ISABEL)2042 (Given - Provider: Maty Michael, RN) 0920 (Given - Provider: Sherry Renteria RN) sodium chloride 0.9 % infusion 100 mL/hr, [...] Starting on Sun01/17/23 at 2353, 1st Line. If inadequate response [...] on Sun09/10/23 at 2200, For 10 doses 2203 (Given [...] crush)2129 (Given - Provider: Marina Salazar RN) 0805 (Not Given - Provider: Yue Ludwig RN - Reason: Other - Comment: unable to crash) Influenza Vac A&B SA Adj quadrivalent (Fluad) vaccine 0.5 mL 0.5 mL, IntraMUSCular, Prior to discharge, Starting on Sun09/11/23 at 0900, For 1 dose insulin glargine (Lantus) injection 10 Units 10 Units, SubCUTAneous, Nightly, First dose (after last modification) on 09/16/23 at 2100 2151 (Given - Provider: Marina Salazar, ISABEL) 2131 (Given - Provider: Marina Salazar RN) Insulin Lispro (Humalog) injection 0-18 Units(Linked [...] 0-18 Units, SubCUTAneous, Nightly, First dose on 09/16/23 at 2100, If continuous tube feedings/TPN/NPO, give correction dose based on result, no reduction in dose. If eating or bolus tube feeding: High Dose Correction Algorithm Glucose: Dose: LESS than 139 No Insulin 140-199 3 Unit 200-249 6 Units 250-299 9 Units 300-349 12 Units 350-400 15 Units Above 400 18 Units 2202 (Given - Provider: Marina Salazar RN) 2130 [...] RN)2203 (Given - Provider: Marina Salazar RN) 09 (Not Given - Provider: Karel Maldonado RN [...] low blood sugar, Starting on Sun09/10/23 at 2030, If [...] provider. 0120 (Given - Provider: Peter Fernando, ISABEL)0208 (Given - Provider: Peter Fernando, ISABEL) hydrALAZINE (Apresoline) injection 10 mg 10 mg, [...] pupils, RR < 8; notify primary team bus person dishwasher if used ondansetron (Zofran) injection 4 mg(Linked [...] no bowel movement in past 24 hours. 09 (Given - Provider: Karel Maldonado RN) 09 (Given - Provider: Karel Maldonado RN) sodium [...] Minutes, Every 24 hours, First dose on Sun12/08/23 at 1500, For 5 doses, Mini-Bag Plus bag, Suspected Indication (Select all that apply): Pneumonia (CAP) 1454 (New Bag - Provider: Chelsey Robles RN)1524 (Stopped - Provider: Chelsey Robles RN) 1544 (New Bag - Provider: Chelsey [...] Other - Comment: pt agitated. pt refusing.) 09 (Given - Provider: Candace Eastman RN) haloperidol [...] 2224 (Given - Provider: Angel Dean RN) 2037 (Given - Provider: Angel Dean RN) Insulin [...] 5 Units 5 Units, SubCUTAneous, Once, On 12/09/23 at 0715, For 1 dose, BG 449 per latest reading in chart ipratropium-albuterol (Duo-Neb) 0.5-2.5 mg/3 mL nebulizer solution 3 mL 3 mL, Nebulization, 3 times daily, First dose on 12/08/23 at 0900 0840 (Given - Provider: Renea Neely RCP)1255 (Given - Provider: Renea Neely RCP)203 (Given - Provider: Fabby Cm RCP) 0820 (Given - Provider: Lolis Noel RCP)1705 (Given - Provider: Lolis Noel RCP)2148 (Given - Provider: Fabby Cm RCP) 0826 (Given - Provider: Jada Thomason RCP)1220 (Given - Provider: Jada Thomason RCP) lisinopril tablet 20 mg 20 mg, Oral, Daily, First dose on Sun12/07/23 at 0900 0826 (Given - Provider: Chelsey Robles RN) 0956 (Given - Provider: Chelsey Robles RN) 0943 (Given - Provider: Candace Eastman, RN) Melatonin disintegrating tablet 5 mg 5 mg, Oral, Nightly, First dose on Sun12/07/23 at 2099 2013 (Given - Provider: Angel Dean RN) 2036 (Given - Provider: Angel Dean RN) mirtazapine (Remeron) tablet 15 mg 15 mg, Oral, Nightly, First dose on Sun12/07/23 at 2099 2013 (Given - Provider: Angel Dean RN) 2035 (Given - Provider: Angel Dean RN) QUEtiapine (SEROquel) tablet 12.5 mg 12.5 [...] Dean RN) 1000 (Given - Provider: Chelsey Robles RN)2040 (Given - Provider: Angel Dean RN) 0948 (Given - Provider: Candace Eastman RN) tamsulosin (Flomax) 24 hr capsule 0.8 mg 0.8 mg, Oral, Nightly, First dose on Sun12/07/23 at 2099, Do not crush, chew, or split. 2013 [...] Chelsey Robles, RN) 0952 (Given - Provider: Cehlsey Robles, RN) hydrALAZINE (Apresoline) injection 10 mg [...] sedation for opioid reversal - MUST notify bus person dishwasher provider immediately after first dose, may give [...] or split. 1741 (Given - Provider: Mar Lee RN) 0606 (Given - Provider: Magdy Griffin RN)1500 (Canceled Entry - Provider: Automatic Discharge Provider - Comment: Automatically canceled at discontinue of medication order) barium sulfate (Varibar [place], Varibar Honey) 40 % suspension 5 mL [...] Prophylaxis 0023 (New Bag - Provider: Magdy Griffin RN)0053 (Stopped - Provider: Magdy Griffin RN)0624 (New Bag - Provider: Magdy Griffin RN)0700 (Stopped - Provider: Magdy Griffin RN) cholecalciferol (Vitamin D-3) tablet 2,000 Units 2,000 Units, Oral, Daily, First dose on Sun03/31/25 at 0915 1018 (Not Given - Provider: Nate Davis RN - Reason: NPO - Comment: pt cannot tolerate meds without pudding/crushed pt has dementia and is NPO)1310 (DEC Hold - Provider: Automatic Transfer Provider - Reason: Patient not available)1753 (DEC Unhold - Provider: Automatic Transfer Provider) 0829 (Given - Provider: Mar Lee RN) 0958 (Given - Provider: Lianet Claire RN) docusate sodium (Colace) capsule 100 mg 100 mg, Oral, 2 times daily, First dose on Sun03/31/25 at 1000, Do not crush or break. 1018 (Not Given - Provider: Nate Davis RN - Reason: Other - Comment: pt cannot tolerate meds without pudding/crushed pt has dementia and is NPODR aware)1310 (DEC Hold - Provider: Automatic Transfer Provider - Reason: Patient not available)1753 ([facility] Unhold - Provider: Automatic Transfer [...] 0.5 inch (~1 cm) per dose. 1310 ([facility] Hold - Provider: Automatic Transfer Provider - Reason: Patient not available)175 ([facility] Unhold - Provider: Automatic Transfer Provider)2206 (Given - Provider: Magdy Griffin, RN) 2019 (Given - Provider: Magdy Griffin, ISABEL) insulin glargine (Lantus) injection 4 Units 4 Units, SubCUTAneous, Nightly, First dose on Sun03/31/25 at 2100 1310 ([facility] Hold - Provider: Automatic Transfer Provider - Reason: Patient not available)175 ([facility] Unhold - Provider: Automatic Transfer Provider)2204 (Given - Provider: Magdy Griffin, ISABEL) 2014 (Given - Provider: Magdy Griffin, RN) Insulin Lispro (Humalog) injection 0-12 Units 0-12 Units, SubCUTAneous, 3 times daily with meals, First dose on Sun04/01/25 at 1200, Medium Dose Correction Algorithm Glucose: Dose: LESS than 150 No Insulin 150-199 2 Units 200-249 4 Units 250-299 6 Units 300-349 8 Units 350-400 10 Units Above 400 12 Units 1141 (Given - Provider: Mar Lee, ISABEL)174 (Given - Provider: Mar Lee, ISABEL) 0958 (Given - Provider: Lianet Claire, ISABEL)1200 [...] dilaidid IV for pain/bp elevation Dr aware)1310 (MAR Hold - Provider: Automatic Transfer Provider - Reason: Patient not available)175 (DEC Unhold - Provider: Automatic Transfer Provider) 0827 (Given - Provider: Mar Lee RN) 0958 (Given - Provider: Lianet Claire RN) Melatonin disintegrating tablet 5 mg 5 mg, Oral, Nightly, First dose on Sun03/31/25 at 2100 1310 (MAR Hold - Provider: Automatic Transfer Provider - Reason: Patient not available)175 ([facility] Unhold - Provider: Automatic Transfer Provider)221 (Not Given - Provider: Magdy Griffin RN - Reason: Patient/family refused - Comment: patient unable to take) 2016 (Given - Provider: Magdy Griffin, ISABEL) mirtazapine (Remeron) tablet 15 mg 15 mg, Oral, Nightly, First dose on Sun03/31/25 at 2100 1310 (MAR Hold - Provider: Automatic Transfer Provider - Reason: Patient not available)175 (MAR Unhold - Provider: Automatic Transfer Provider)221 (Not Given - Provider: Magdy Griffin RN - Reason: Patient/family refused - Comment: patient unable to take meds) 2018 (Given - Provider: Magdy Griffin RN) QUEtiapine (SEROquel) tablet 12.5 mg 12.5 mg, Oral, 2 times daily, First dose on Sun03/31/25 at 1000 1019 (Not Given - Provider: Nate Davis, ISABEL - Reason: Other - Comment: pt cannot tolerate meds without pudding/crushed pt has dementia and is NPODR aware)1310 (MAR Hold - Provider: Automatic Transfer Provider - Reason: Patient not available)1753 (MAR Unhold - Provider: Automatic Transfer Provider)2210 (Not [...] mL/lumen 1017 (Given - Provider: Nate Davis RN)1310 ([facility] Hold - Provider: Automatic Transfer Provider - Reason: Patient not available)1752 ([facility] Unhold - Provider: Automatic Transfer Provider)2212 (Not Given - Provider: Magdy Griffin RN - Reason: IV Fluids Infusing) 08 (Given - Provider: Mar Lee, ISABEL)2025 (Not Given - Provider: Magdy Griffin RN - Reason: Loss of IV access) 0958 (Not Given - Provider: Lianet Claire RN - Reason: Other - Comment: no iv access) tamsulosin (Flomax) 24 hr capsule 0.8 mg 0.8 mg, Oral, Nightly, First dose on Sun03/31/25 at 2100, Do not crush, chew, or split. 1310 ([facility] Hold - Provider: Automatic Transfer Provider - Reason: Patient not available)1753 ([facility] Unhold - Provider: Automatic Transfer Provider)221 (Not [...] 0141 (New Bag - Provider: Flakita Tenorio, ISABEL) 1315 (Stopped - Provider: Mar Lee, RN) dextrose 5 % and sodium chloride 0.45 % infusion () 75 mL/hr, IntraVENous, Continuous, Starting on Sun03/31/25 at 0915, For 12 hours 1016 (New Bag - Provider: Nate Davis, RN)1300 (Stopped - Provider: Emil Huber RN - Comment: going to OR)1810 (Restarted - Provider: Emil Huber RN)2300 (Stopped - Provider: Magdy Griffin, RN) PRN Medication Order 03/31/2025 04/01/2025 04/02/2025 acetaminophen (Tylenol) tablet 650 mg 650 mg, Oral, Every 6 hours PRN, mild pain (1-3), Starting on Sun04/01/25 at 0845, Maximum dose of acetaminophen is 4000 mg from all sources in 24 hours. 1338 (Given - Provider: Mar Lee, ISABEL)2354 (Given - Provider: Magdy Griffin, ISABEL) dextrose 5 % infusion 100 mL/hr, IntraVENous, [...] Glucostabilizer, dose as instructed per system. 1310 (DEC Hold - Provider: Automatic Transfer Provider - Reason: Patient not available)1753 ([facility] Unhold - Provider: Automatic Transfer [...] 15 minutes x2 and notify provider. 1310 ([facility] Hold - Provider: Automatic Transfer Provider - Reason: Patient not available)175 ([facility] Unhold - Provider: Automatic Transfer [...] 15 minutes x2 and notify provider. 1310 ([facility] Hold - Provider: Automatic Transfer Provider - Reason: Patient not available)175 ([facility] Unhold - Provider: Automatic Transfer [...] 1024 (Given - Provider: Nate Davis RN)1310 ([facility] Hold - Provider: Automatic Transfer Provider - Reason: Patient not available)175 ([facility] Unhold - Provider: Automatic Transfer [...] anxiety, Starting on Sun03/31/25 at 0911 1310 ([facility] Hold - Provider: Automatic Transfer Provider - Reason: Patient not available)175 ([facility] Unhold - Provider: Automatic Transfer Provider) naloxone (Narcan) injection 0.4 mg 0.4 mg, IntraVENous, Every 5 min PRN, opioid reversal, respiratory depression, Starting on Sun03/31/25 at 1006, +++ For RR <10, pinpoint pupils, over sedation for opioid reversal - MUST notify bus person dishwasher provider immediately after first dose, may give IM or SQ if no IV access +++ 1310 ([facility] Hold - Provider: Automatic Transfer Provider - Reason: Patient not available)175 ([facility] Unhold - Provider: Automatic Transfer Provider) ondansetron (Zofran) injection 4 mg(Linked Group 1) 4 mg, IntraVENous, Every 6 hours PRN, nausea, vomiting, Starting on Sun03/31/25 at 0911, 1st Line. Give IV if patient is unable to take orally. If inadequate response within 60 minutes, proceed to next-line agent or contact provider if no further options ordered. 1310 ([facility] Hold - Provider: Automatic Transfer Provider - Reason: Patient not available)175 ([facility] Unhold - Provider: Automatic Transfer [...] blister pack until just before administering. 1310 ([facility] Hold - Provider: Automatic Transfer Provider - Reason: Patient not available)175 ([facility] Unhold - Provider: Automatic Transfer [...] less into rate field of order. 1310 ([facility] Hold - Provider: Automatic Transfer Provider - Reason: Patient not available)1753 ([facility] Unhold - Provider: Automatic Transfer [...] or Central Line = 20 mL/lumen 1310 ([facility] Hold - Provider: Automatic Transfer Provider - Reason: Patient not available)1753 ([facility] Unhold - Provider: Automatic Transfer [...] Provider Active Start: February 11, 2025 Javy ERDDY MD Attending Provider Active S tart: February [...] S tart: March 03, 2025 Director Of Community Life Relationship Specialty Start Date End Date Dudley Cobb MD [address] [place] [phone] PCP - General 12/07/16 Director Of Community Life Relationship Specialty Start Date End Date Dudley Cobb MD [address] [place] [phone] PCP - General 12/07/16 Director Of Community Life Relationship Specialty Start Date End Date Dudley Cobb MD [address] [place] [address] PCP - General 12/07/16 Director Of Community Life Relationship Specialty Start Date End Date Marj Plasencia [address] [place] [address] PCP - General Internal Medicine 01/19/23 Director Of Community Life Relationship Specialty Start Date End Date Marj Plasencia [address] [place] [address] PCP - General Internal Medicine [...] REDDY MD Attending Provider Active Director Of Community Life Relationship Specialty Start Date End Date GokulMarj pena [address] [place] [address] PCP - General Internal Medicine [...] February 11, 2025 End: February 11, 2025 Jayv REDDY MD Attending Provider Active S tart: February 11, 2025 End: February 11, 2025 Team Status: Inactive Member Role Status Dates Dr. Javy Lynn Sr. , DO Primary Care Provider Active Start: March 02, 2025 End: March 02, 2025 Javy REDDY MD Attending Provider Active S tart: March 02, 2025 End: March 02, 2025 Director Of Community Life Relationship Specialty Start Date End Date Marj Plasencia [address] [address] [place] [id number] PCP - General Internal Medicine 01/19/23 Director Of [employer] Life Relationship Specialty Start Date End Date Mraj Plasencia [address] [place] [id number] PCP - General Internal Medicine 01/19/23 Team Status: Inactive Member Role Status Dates Dr. Javy Lynn Sr. , DO Primary Care Provider Active Start: February 17, 2025 End: February 17, 2025 Javy REDDY MD Attending Provider Active S tart: February 17, 2025 End: February 17, 2025 Javy REDDY MD Referring Provider Active S tart: February 17, 2025 End: February 17, 2025 Director Of [employer] Relationship Specialty Start Date End Date Marj Plasencia [address] [place] [phone] PCP - General Internal Medicine 01/19/23 Director Of Community Life Relationship Specialty Start Date End Date Marj Plasencia [address] [facility] [address] [place] [phone] PCP - General Internal Medicine 01/19/23 Goals [...] BE BASED ON THE PRIMARY CLINICAL RECORDS. [facility]. provides no warranty or guarantee of the accuracy or completeness of information in this document.
[2025-08-20 09:22] LABS: Hematocrit 35.5 % (40-54); Hemoglobin 12.0 g/dL (13.0-16.5); Mean Corp Hgb Conc 33.8 g/dL (32-36); Mean Corpuscular Volume 88.8 fL (80-94); Mean Platelet Vol. 11.2 fl (6.2-12.0); Platelet Count 168 K/mm3 (150-450); RBC Distribution Width CV 13.4 % (11.6-14.6); RBC Distribution Width SD 43.6 fl (35.1-43.9); Red Blood Count 4.00 M/mm3 (4.6-6.2); White Blood Count 5.7 K/mm3 (4.4-11.0)
[2025-08-20 09:35] LABS: Valproic Acid (Depakene) Level 20 ug/mL (50-100)
[2025-08-20 09:53] LABS: AST(SGOT) 20 U/L (<=37); Alanine Aminotransfer ALT/SGPT 12 U/L (<=46); Albumin, Serum 3.5 g/dL (3.4-4.8); Alkaline Phosphatase 122 U/L (40-129); Anion Gap 8 (5-15); BUN 23 mg/dL (4-19); BUN/Creat Ratio 20.6 RATIO (10-20); Calcium,Total 9.5 mg/dL (7.6-11.0); Carbon Dioxide 29.1 mmol/L (21.0-32.0); Chloride 103 mmol/L (98-108); Globulin 2.7 g/dL (2.2-4.2); Glucose 79 mg/dL (70-99); Potassium 4.2 mmol/L (3.3-5.1); Vitamin D,25 Hydroxy 64.4 ng/mL (30-100)
== END ==
LOC: OLS.ACH 05:00
PROVIDERS: PCP Internal Medicine; Visit Provider Internal Medicine
DX: I10 Essential (primary) hypertension (principal); J96.11 Chronic respiratory failure with hypoxia; E11.51 Type 2 diabetes mellitus with diabetic peripheral angiopathy without gangrene; E43 Unspecified severe protein-calorie malnutrition
CPT/HCPCS: 36415; 80053; 80164; 82306; 85027

== ENCOUNTER → 2025-08-31 05:00 | Outpatient (REF) | payer MEDICARE, SELFPAY ==
--- OUTSIDE RECORDS SUMMARY | 2025-08-31 04:15 | XMS RPT_ITS | CCD ---
Author Organization [facility] ion [facility] Care Team Providers Care Retail Planning Manager Name Role Phone Dudley Cobb Primary Care Unavailable Dudley Cobb Referring Unavailable ZAIN SAMAYOA Attending Unavailjenni Cobb MD, Dudley Primary Care Provider [phone] Marj Plasencia Primary Care Provider Marj Plasencia [...] OLS, Javy Attending Unavailable Deperro OLS, Javy Referring Unavailable Deperro [...] Care Unavailable Deperro OLS, Javy Attending Unavailable Medications Current Medications Medication Drug Class(es) [...] on Sun12/07/23 at 0600 barium sulfate (Varibar [place], Varibar Honey) 40 % suspension 5 mL [...] needed, low b lood sugar, Starting on 09/10/23 at 2030, If blood glucose less than [...] Start: 03-31-2025 End: 03-31-2025 0-12 Units, SubCUTAneous, [place] N, high blood sugar, Surgery patient, Starting [...] mL IVPB Mini-Bag Plus polyethylene glycol 3350 44693 mg powder for oral solution (6 sources) [...] Facility CBC-Complete Blood Cnt No Di ffon 08-20-2025 Erythrocyte distribution width (RBC) [Ratio] 13.4 % Normal 11.6-14.6 [facility] Comment on above: Order Comment: 206.2 Performed By: #### M 100.220, L4, L500.2500, L100.0500 #### [facility] [address] [place], [address] Hematocrit (Bld) [Volume fraction] 35.5 % Low 40-54 [facility] Comment on above: Order Comment: 206.2 Performed By: #### M 100.2199, , L500.2500, L100.0500 #### [facility] [address] [place], [address] Hemoglobin (Bld) [Mass/Vol] 12.0 g/dL Low 13.0-16.5 [facility] Comment on above: Order Comment: 206.2 Performed By: #### M 100.2199, L4, L500.2500, L100.0500 #### [facility] [address] [place], [address] MCH (RBC) [Entitic mass] 30.0 pg Normal 27.0-32.0 [facility] Comment on above: Order Comment: 206.2 Performed By: #### M 100.2199, , L500.2500, L100.0500 #### [facility] [address] [place], [address] MCHC (RBC) [Mass/Vol] 33.8 g/dL Normal 32-36 [facility] Comment on above: Order Comment: 206.2 Performed By: #### M 100.2200, L400, L500.2500, L100.0500 #### [facility] [address] [place], [address] MCV (RBC) [Entitic vol] 88.8 fL Normal 80-94 [facility] Comment on above: Order Comment: 206.2 Performed By: #### M 100.2199, , L500.2500, L100.0500 #### [facility] [address] [place], [address] Platelet mean volume (Bld) [Entitic vol] 11.2 fL Normal 6.2-12.0 [facility] Comment on above: Order Comment: 206.2 Performed By: #### M 100.2199, , L500.2500, L100.0500 #### [facility] [address] [place], [address] Platelets (Bld) [#/Vol] 168 10*3/uL Normal 150-450 [facility] Comment on above: Order Comment: 206.2 Performed By: #### M .2199, , L500.2500, L100.0500 #### [facility] [address] [place], [address] RBC (Bld) [#/Vol] 4.00 10*6/uL Low 4.6-6.2 [facility] Comment on above: Order Comment: 206.2 Performed By: #### M 100.2199, , L500.2500, L100.0500 #### [facility] [address] [place], [address] RDW SD 43.6 fl Normal 35.1-43.9 [facility] Comment on above: Order Comment: 206.2 Performed By: #### M 100.2199, , L500.2500, L100.0500 #### [facility] [address] [place], [address] WBC (Bld) [#/Vol] 5.7 10*3/uL Normal 4.4-11.0 [facility] Comment on above: Order Comment: 206.2 Performed By: #### M 100.2200, L400.2011, L500.2500, L100.0500 #### [facility] [address] [place], [address] Comprehensive Metabolic Prof ilon 08-20-2025 Albumin [Mass/Vol] 3.5 g/dL Normal 3.4-4.8 [facility] Comment on above: Order Comment: 206.2 Performed By: #### L 501.9985 #### [facility] [address] [place], [address] Albumin/Globulin [Mass ratio] 1.3 {ratio} Normal 0.9-2.4 [facility] Comment on above: Order Comment: 206.2 Performed By: #### L 501.9985 #### [facility] [address] [place], [address] ALK PHOS 122 U/L Normal 40-129 [facility] Comment on above: Order Comment: 206.2 Performed By: #### L 501.9985 #### [facility] [address] [place], [address] ALT [Catalytic activity/Vol] 12 U/L Normal <=46 [facility] Comment on above: Order Comment: 206.2 Performed By: #### L 501.9985 #### [facility] [address] [place], [address] AST [Catalytic activity/Vol] 20 U/L Normal <=37 [facility] Comment on above: Order Comment: 206.2 Performed By: #### L 501.9985 #### [facility] [address] [place], [address] Bilirubin [Mass/Vol] 0.36 mg/dL Normal 0.00-1.30 [facility] Comment on above: Order Comment: 206.2 Performed By: #### L 501.9985 #### [facility] [address] [place], [address] BUN/CRE 20.6 RATIO High 10-20 [facility] Comment on above: Order Comment: 206.2 Performed By: #### L 501.9985 #### [facility] [address] [place], [address] Calcium [Mass/Vol] 9.5 mg/dL Normal 7.6-11.0 [facility] Comment on above: Order Comment: 206.2 Performed By: #### L 501.9985 #### [facility] [address] [place], [address] Chloride [Moles/Vol] 103 mmol/L Normal 98-108 [facility] Comment on above: Order Comment: 206.2 Performed By: #### L 501.9985 #### [facility] [address] [place], [address] CO2 [Moles/Vol] 29.1 mmol/L Normal 21.0-32.0 [facility] Comment on above: Order Comment: 206.2 Performed By: #### L 501.9985 #### [facility] [address] [place], [address] Creatinine [Mass/Vol] 1.13 mg/dL Normal 0.70-1.20 [facility] Comment on above: Order Comment: 206.2 Performed By: #### L 501.9985 #### [facility] [address] [place], [address] GAP 8 Normal 5-15 [facility] Comment on above: Order Comment: 206.2 Performed By: #### L 501.9985 #### [facility] [address] [place], [address] GFR/1.73 sq M.predicted among non-blacks MDRD (S/P/Bld) [Vol rate/Area] 62 mL/min/{1.73_m2} Normal >60 [facility] Comment on above: Order Comment: 206.2 Result Comment: mL/m in/1.73m2 CKD-EPI Creatinine Equation (2020) Performed By: #### L 501.9985 #### [facility] [address] [place], [address] Globulin (S) [Mass/Vol] 2.7 g/dL Normal 2.2-4.2 [facility] Comment on above: Order Comment: 206.2 Performed By: #### L 501.9985 #### [facility] [address] [place], [address] Glucose [Mass/Vol] 79 mg/dL Normal 70-99 [facility] Comment on above: Order Comment: 206.2 Performed By: #### L 501.9985 #### [facility] [address] [place], [address] Potassium [Moles/Vol] 4.2 mmol/L Normal 3.3-5.1 [facility] Comment on above: Order Comment: 206.2 Performed By: #### L 501.9985 #### [facility] [address] [place], [address] Sodium [Moles/Vol] 141 mmol/L Normal 133-145 [facility] Comment on above: Order Comment: 206.2 Performed By: #### L 501.9985 #### [facility] [address] [place], [address] T PROT 6.2 g/dL Normal 5.9-8.4 [facility] Comment on above: Order Comment: 206.2 Performed By: #### L 501.9985 #### [facility] [address] [place], [address] Urea nitrogen [Mass/Vol] 23 mg/dL High 4-19 [facility] Comment on above: Order Comment: 206.2 Performed By: #### L 501.9985 #### [facility] [address] [place], [place], [address] Valproic Acid (Depakene) Lev angel 08-20-2025 VALPROIC ACID 20 ug/mL Low 50-100 [facility] Comment on above: Order Comment: Result Comment: Valp roic Acid concentrations >100 ug/mL are potentially toxic. Performed By: #### L 501.9985 #### [facility] [address] [place], [place], [address] Vitamin D,25 Hydroxyon 08-20 Vitamin D 25-OH 64.4 ng/mL Normal 30-100 [facility] Comment on above: Order Comment: Result Comment: Betzaida min D Status Deficiency: <20 ng/mL (50nmol/L) Insufficiency: 20-30 ng/mL (50-75 nmol/L) Sufficiency: 30-100 ng/mL (75-250 nmol/L) Toxicity: >100 ng/mL (>250 nmol/L) Performed By: #### L 501.9985 #### [facility] [address] [place], [place], [address] CBC-Complete Blood Cnt No Di ffon 08-18-2025 Erythrocyte distribution width (RBC) [Ratio] 13.5 % Normal 11.6-14.6 [facility] Comment on above: Order Comment: Performed By: #### M 100.2199, L4, L500.2500, L100.0500 #### [facility] [address] [place], [place], [address] Hematocrit (Bld) [Volume fraction] 34.1 % Low 40-54 [facility] Comment on above: Order Comment: Performed By: #### M 100.2200, L4, L500.2500, L100.0500 #### [facility] [address] [place], [address] Hemoglobin (Bld) [Mass/Vol] 11.4 g/dL Low 13.0-16.5 [facility] Comment on above: Order Comment: 206.2 Performed By: #### M 100.2199, , L500.2500, L100.0500 #### [facility] [address] [place], [address] MCH (RBC) [Entitic mass] 29.9 pg Normal 27.0-32.0 [facility] Comment on above: Order Comment: 206.2 Performed By: #### M 100.2199, L4, L500.2500, L100.0500 #### [facility] [address] [place], [address] MCHC (RBC) [Mass/Vol] 33.4 g/dL Normal 32-36 [facility] Comment on above: Order Comment: 206.2 Performed By: #### M , , L500.2500, L100.0500 #### [facility] [address] [place], [address] MCV (RBC) [Entitic vol] 89.5 fL Normal 80-94 [facility] Comment on above: Order Comment: 206.2 Performed By: #### M .2199, , L500.2500, L100.0500 #### [facility] [address] [place], [address] Platelet mean volume (Bld) [Entitic vol] 11.2 fL Normal 6.2-12.0 [facility] Comment on above: Order Comment: 206.2 Performed By: #### M .2199, , L500.2500, L100.0500 #### [facility] [address] [place], [address] Platelets (Bld) [#/Vol] 141 10*3/uL Low 150-450 [facility] Comment on above: Order Comment: 206.2 Performed By: #### M 100.2200, L4, L500.2500, L100.0500 #### [facility] [address] [place], [address] RBC (Bld) [#/Vol] 3.81 10*6/uL Low 4.6-6.2 [facility] Comment on above: Order Comment: 206.2 Performed By: #### M 100.2199, L4, L500.2500, L100.0500 #### [facility] [address] [place], [address] RDW SD 44.3 fl High 35.1-43.9 [facility] Comment on above: Order Comment: 206.2 Performed By: #### M 100.2199, , L500.2500, L100.0500 #### [facility] [address] [place], [address] WBC (Bld) [#/Vol] 4.0 10*3/uL Low 4.4-11.0 [facility] Comment on above: Order Comment: 206.2 Performed By: #### M .2199, , L500.2500, L100.0500 #### [facility] [address] [place], [address] Comprehensive Metabolic Prof pasarmad 08-18-2025 Albumin [Mass/Vol] 3.4 g/dL Normal 3.4-4.8 [facility] Comment on above: Order Comment: 206.2 Performed By: #### M 100.2199, L4, L500.2500, L100.0500 #### [facility] [address] [place], [address] Albumin/Globulin [Mass ratio] 1.3 {ratio} Normal 0.9-2.4 [facility] Comment on above: Order Comment: 206.2 Performed By: #### M 100.2199, , L500.2500, L100.0500 #### [facility] [address] [place], [address] ALK PHOS 113 U/L Normal 40-129 [facility] Comment on above: Order Comment: 206.2 Performed By: #### M 100.2199, , L500.2500, L100.0500 #### [facility] [address] [place], [address] ALT [Catalytic activity/Vol] 13 U/L Normal <=46 [facility] Comment on above: Order Comment: 206.2 Performed By: #### M .2199, , L500.2500, L100.0500 #### [facility] [address] [place], [address] AST [Catalytic activity/Vol] 20 U/L Normal <=37 [facility] Comment on above: Order Comment: 206.2 Performed By: #### M .2199, , L500.2500, L100.0500 #### [facility] [address] [place], [address] Bilirubin [Mass/Vol] 0.27 mg/dL Normal 0.00-1.30 [facility] Comment on above: Order Comment: 206.2 Performed By: #### M .2199, , L500.2500, L100.0500 #### [facility] [address] [place], [address] BUN/CRE 29.0 RATIO High 10-20 [facility] Comment on above: Order Comment: 206.2 Performed By: #### M 100.2199, , L500.2500, L100.0500 #### [facility] [address] [place], [address] Calcium [Mass/Vol] 9.4 mg/dL Normal 7.6-11.0 [facility] Comment on above: Order Comment: 206.2 Performed By: #### M 100.2200, L4, L500.2500, L100.0500 #### [facility] [address] [place], [address] Chloride [Moles/Vol] 103 mmol/L Normal 98-108 [facility] Comment on above: Order Comment: 206.2 Performed By: #### M 100.2199, L4, L500.2500, L100.0500 #### [facility] [address] [place], [address] CO2 [Moles/Vol] 30.0 mmol/L Normal 21.0-32.0 [facility] Comment on above: Order Comment: 206.2 Performed By: #### M 100.2199, , L500.2500, L100.0500 #### [facility] [address] [place], [address] Creatinine [Mass/Vol] 1.16 mg/dL Normal 0.70-1.20 [facility] Comment on above: Order Comment: 206.2 Performed By: #### M 100.2199, , L500.2500, L100.0500 #### [facility] [address] [place], [address] GAP 7 Normal 5-15 [facility] Comment on above: Order Comment: 206.2 Performed By: #### M 100.2200, L4, L500.2500, L100.0500 #### [facility] [address] [place], [address] GFR/1.73 sq M.predicted among non-blacks MDRD (S/P/Bld) [Vol rate/Area] 60 mL/min/{1.73_m2} Normal >60 [facility] Comment on above: Order Comment: 206.2 Result Comment: mL/m in/1.73m2 CKD-EPI Creatinine Equation (2020) Performed By: #### M 100.2199, , L500.2500, L100.0500 #### [facility] [address] [place], [address] Globulin (S) [Mass/Vol] 2.7 g/dL Normal 2.2-4.2 [facility] Comment on above: Order Comment: 206.2 Performed By: #### M 100.2199, , L500.2500, L100.0500 #### [facility] [address] [place], [address] Glucose [Mass/Vol] 105 mg/dL High 70-99 [facility] Comment on above: Order Comment: 206.2 Performed By: #### M 100.2199, , L500.2500, L100.0500 #### [facility] [address] [place], [address] Potassium [Moles/Vol] 4.3 mmol/L Normal 3.3-5.1 [facility] Comment on above: Order Comment: 206.2 Performed By: #### M .2199, , L500.2500, L100.0500 #### [facility] [address] [place], [address] Sodium [Moles/Vol] 141 mmol/L Normal 133-145 [facility] Comment on above: Order Comment: 206.2 Performed By: #### M 100.2199, L4, L500.2500, L100.0500 #### [facility] [address] [place], [address] T PROT 6.1 g/dL Normal 5.9-8.4 [facility] Comment on above: Order Comment: 206.2 Performed By: #### M .2199, , L500.2500, L100.0500 #### [facility] [address] [place], [address] Urea nitrogen [Mass/Vol] 34 mg/dL High 02-07 [facility] Comment on above: Order Comment: . Performed By: #### M 100.2199, L4, L500.2500, L100.0500 #### [facility] [address] [place], [address] Valproic Acid (Depakene) Lev angel 08-18-2025 VALPROIC ACID 17 ug/mL Low 50-100 [facility] Comment on above: Order Comment: Result Comment: Valp roic Acid concentrations >100 ug/mL are potentially toxic. Performed By: #### M .2199, , L500.2500, L100.0500 #### [facility] [address] [place], [address] Urine Cultureon 07-10-2025 [facility] Enterococcus faecalis Beta Lactamase-Reportable Negative [place] Count >100,000 Enterococcus faecalis: REACTION Ampicillin Islt PAVEL <=2 S Ciprofloxacin Islt PAVEL <=0.5 Gentamicin Synergy Susc Islt SYN-S S levoFLOXacin Islt PAVEL 1 S Linezolid Islt PAVEL 2 S Nitrofurantoin Islt PAVEL <=16 S Streptomycin High Pot Susc Islt SYN-S S Tetracycline Islt PAVEL >=16 R Vancomycin Islt PAVEL 1 S Normal [facility] Comment on above: Performed By: #### M , , L500.2500, L100.0500 #### [facility] [address] [place], [address] Basic Metabolic Profile (BMP )on 07-08-2025 Glucose [Mass/Vol] 111 mg/dL High 70-99 [facility] Comment on above: Order Comment: CLEAN CATCH Performed By: #### M 100.2199, L4, L500.2500, L100.0500 #### [facility] [address] [place], [address] CBC-Complete Blood Cnt No Di ffon 07-08-2025 Erythrocyte distribution width (RBC) [Ratio] 13.7 % Normal 11.6-14.6 [facility] Comment on above: Order Comment: CLEAN CATCH Performed By: #### M 100.2200, L4.2010, L500.2500, L100.0500 #### [facility] [address] [place], [address] Hematocrit (Bld) [Volume fraction] 33.4 % Low 40-54 [facility] Comment on above: Order Comment: CLEAN CATCH Performed By: #### M 100.2199, , L500.2500, L100.0500 #### [facility] [address] [place], [address] Hemoglobin (Bld) [Mass/Vol] 11.1 g/dL Low 13.0-16.5 [facility] Comment on above: Order Comment: CLEAN CATCH Performed By: #### M 100.2199, , L500.2500, L100.0500 #### [facility] [address] [place], [address] MCH (RBC) [Entitic mass] 29.9 pg Normal 27.0-32.0 [facility] Comment on above: Order Comment: CLEAN CATCH Performed By: #### M 100.2199, , L500.2500, L100.0500 #### [facility] [address] [place], [address] MCHC (RBC) [Mass/Vol] 33.2 g/dL Normal 32-36 [facility] Comment on above: Order Comment: CLEAN CATCH Performed By: #### M 100.220, L400, L500.2500, L100.0500 #### [facility] [address] [place], [address] MCV (RBC) [Entitic vol] 90.0 fL Normal 80-94 [facility] Comment on above: Order Comment: CLEAN CATCH Performed By: #### M 100.2199, L4.2010, L500.2500, L100.0500 #### [facility] [address] [place], [address] Platelet mean volume (Bld) [Entitic vol] 11.4 fL Normal 6.2-12.0 [facility] Comment on above: Order Comment: CLEAN CATCH Performed By: #### M 100.2199, L4, L500.2500, L100.0500 #### [facility] [address] [place], [address] Platelets (Bld) [#/Vol] 151 10*3/uL Normal 150-450 [facility] Comment on above: Order Comment: CLEAN CATCH Performed By: #### M , , L500.2500, L100.0500 #### [facility] [address] [place], [address] RBC (Bld) [#/Vol] 3.71 10*6/uL Low 4.6-6.2 [facility] Comment on above: Order Comment: CLEAN CATCH Performed By: #### M 100.2199, , L500.2500, L100.0500 #### [facility] [address] [place], [address] RDW SD 44.7 fl High 35.1-43.9 [facility] Comment on above: Order Comment: CLEAN CATCH Performed By: #### M 100.2199, L4, L500.2500, L100.0500 #### [facility] [address] [place], [address] WBC (Bld) [#/Vol] 4.7 10*3/uL Normal 4.4-11.0 [facility] Comment on above: Order Comment: CLEAN CATCH Performed By: #### M 100.2200, L400.2010, L500.2500, L100.0500 #### [facility] [address] [place], [address] Urinalysis, Completeon 07-08 WBC 0-5 SEEN Normal 0-5 [facility] Comment on above: Order Comment: CLEAN CATCH Performed By: #### M 100.220, L400.2010, L500.2500, L100.0500 #### [facility] [address] [place], [address] BACTERIA 0 SEEN Normal None Seen [facility] Comment on above: Order Comment: CLEAN CATCH Performed By: #### M 100.220, L400.2010, L500.2500, L100.0500 #### [facility] [address] [place], [address] EPI,SQUAMOUS 0 SEEN Normal 0-5 [facility] Comment on above: Order Comment: CLEAN CATCH Performed By: #### M 100.220, L400.2010, L500.2500, L100.0500 #### [facility] [address] [place], [address] Mucus Ql (Urine sed) 0 SEEN Normal [facility] Comment on above: Order Comment: CLEAN CATCH Performed By: #### M 100.220, L400.2010, L500.2500, L100.0500 #### [facility] [address] [place], [address] RBC 0 SEEN Normal 0-5 [facility] Comment on above: Order Comment: CLEAN CATCH Performed By: #### M 100.220, L400.2010, L500.2500, L100.0500 #### [facility] [address] [place], [address] 29on 04-21-2025 29 Addended by: EBONI JIMENEZ on: 04/21/2025 02:56 PM Modules accepted: Orders [facility] 36on 04-21-2025 36 Faxed orders to number provided. [facility] 36 Let me know what to send over. [facility] 36 Kerline calling due to family request to cancel in office appointment, due to it being difficult on the patient who is has advanced alzheimer's. IPO was cancelled per their request. Please fax orders for imaging and wound care/post op as needed to [phone]. Thank you! DOS: 03/31/25 R ORIF Normal [facility] 36on 04-20-2025 36 Faxed to number provided [facility] Urine Cultureon 04-18-2025 [facility] Enterococcus faecalis [place] Count 11,000-25,000 Enterococcus faecalis: REACTION Ampicillin Islt PAVEL <=2 Ciprofloxacin Islt PAVEL 1 S Gentamicin Synergy Susc Islt SYN-S S levoFLOXacin Islt PAVEL 1 S Linezolid Islt PAVEL 2 S Nitrofurantoin Islt PAVEL <=16 S Streptomycin High Pot Susc Islt SYN-S S Tetracycline Islt PAVEL >=16 R Vancomycin Islt PAVEL 1 S Normal [facility] Comment on above: Performed By: #### M 100.2200, L400.2010, L500.2500, L100.0500 #### [facility] [address] [place], [address] 36on 04-17-2025 36 Name of caller: Carlotta Contact phone number: [phone] Relationship to Patient: [facility] Provider: Dr. Deleon Practice: Ortho Chief Complaint/Reason for Call: Carlotta called in asking if they can do the XR for the 05/06/2025 appointment in house. If yes, please fax orders to [phone]. Please advise. Best time of day caller can be reached: Any Patient advised that office/PCP has 24-48 business hours to return their call: Yes [facility] [facility] CBC W/Diff, Automatedon 06- Absolute Lymph 1.50 X10 3/uL Normal 0.83-4.51 [facility] Comment on above: Performed By: #### M 100.2200, L4, L500.2500, L100.0500 #### [facility] [address] [place], [address] Absolute Neut 4.6 X10 3/uL Normal 2.0-7.7 [facility] Comment on above: Performed By: #### M 100.2199, , L500.2500, L100.0500 #### [facility] [address] [place], [address] Basophils/100 WBC (Bld) 0.4 % Normal 0-1 [facility] Comment on above: Performed By: #### M 100.2199, , L500.2500, L100.0500 #### [facility] [address] [place], [address] Eosinophils/100 WBC (Bld) 3.2 % Normal 0-5 [facility] Comment on above: Performed By: #### M 100.2199, , L500.2500, L100.0500 #### [facility] [address] [place], [address] Erythrocyte distribution width (RBC) [Ratio] 14.2 % Normal 11.6-14.6 [facility] Comment on above: Performed By: #### M 100.2199, , L500.2500, L100.0500 #### [facility] [address] [place], [address] Hematocrit (Bld) [Volume fraction] 34.6 % Low 40-54 [facility] Comment on above: Performed By: #### M 100.2199, , L500.2500, L100.0500 #### [facility] [address] [place], [address] Hemoglobin (Bld) [Mass/Vol] 11.3 g/dL Low 13.0-16.5 [facility] Comment on above: Performed By: #### M 100.2199, L4, L500.2500, L100.0500 #### [facility] [address] [place], [address] IG% 0.300 Normal 0.0-0.9 [facility] Comment on above: Result Comment: IG% - Immature Granulocytes (promyelocytes, myelocytes and metamyelocytes) > 1% indicates that a LEFT SHIFT is Present. Performed By: #### M 100.2199, , L500.2500, L100.0500 #### [facility] [address] [place], [address] Lymphocytes/100 WBC (Bld) 21.8 % Normal 19-41 [facility] Comment on above: Performed By: #### M .2199, , L500.2500, L100.0500 #### [facility] [address] [place], [address] MCH (RBC) [Entitic mass] 30.6 pg Normal 27.0-32.0 [facility] Comment on above: Performed By: #### M 100.2199, , L500.2500, L100.0500 #### [facility] [address] [place], [address] MCHC (RBC) [Mass/Vol] 32.7 g/dL Normal 32-36 [facility] Comment on above: Performed By: #### M 100.2199, , L500.2500, L100.0500 #### [facility] [address] [place], [address] MCV (RBC) [Entitic vol] 93.8 fL Normal 80-94 [facility] Comment on above: Performed By: #### M 100.2199, L4, L500.2500, L100.0500 #### [facility] [address] [place], [address] Monocytes/100 WBC (Bld) 7.1 % Normal 0-10 [facility] Comment on above: Performed By: #### M 100.2199, , L500.2500, L100.0500 #### [facility] [address] [place], [address] Neutrophils/100 WBC (Bld) 67.2 % Normal 47-70 [facility] Comment on above: Performed By: #### M 100.2199, , L500.2500, L100.0500 #### [facility] [address] [place], [address] Nucleated RBC (Bld) [#/Vol] 0 10*3/uL Normal 0-5 [facility] Comment on above: Performed By: #### M , , L500.2500, L100.0500 #### [facility] [address] [place], [address] Platelet mean volume (Bld) [Entitic vol] 11.5 fL Normal 6.2-12.0 [facility] Comment on above: Performed By: #### M , , L500.2500, L100.0500 #### [facility] [address] [place], [address] Platelets (Bld) [#/Vol] 231 10*3/uL Normal 150-450 [facility] Comment on above: Performed By: #### M 100.2199, , L500.2500, L100.0500 #### [facility] [address] [place], [address] RBC (Bld) [#/Vol] 3.69 10*6/uL Low 4.6-6.2 [facility] Comment on above: Performed By: #### M .2199, , L500.2500, L100.0500 #### [facility] [address] [place], [address] RDW SD 48.2 fl High 35.1-43.9 [facility] Comment on above: Performed By: #### M 100.2199, L4, L500.2500, L100.0500 #### [facility] [address] [place], [address] WBC (Bld) [#/Vol] 6.9 10*3/uL Normal 4.4-11.0 [facility] Comment on above: Performed By: #### M .2199, , L500.2500, L100.0500 #### [facility] [address] [place], [address] Comprehensive Metabolic Prof [facility] 04-16-2025 Albumin [Mass/Vol] 3.2 g/dL Low 3.4-4.8 [facility] Comment on above: Performed By: #### M 100.2199, , L500.2500, L100.0500 #### [facility] [address] [place], [address] Albumin/Globulin [Mass ratio] 1.1 {ratio} Normal 0.9-2.4 [facility] Comment on above: Performed By: #### M 100.2199, , L500.2500, L100.0500 #### [facility] [address] [place], [address] ALK PHOS 177 U/L High 40-129 [facility] Comment on above: Performed By: #### M 100.2199, , L500.2500, L100.0500 #### [facility] [address] [place], [address] ALT [Catalytic activity/Vol] 13 U/L Normal <=46 [facility] Comment on above: Performed By: #### M 100.2199, , L500.2500, L100.0500 #### [facility] [address] [place], [address] AST [Catalytic activity/Vol] 20 U/L Normal <=37 [facility] Comment on above: Performed By: #### M .2199, , L500.2500, L100.0500 #### [facility] [address] [place], [address] Bilirubin [Mass/Vol] 0.41 mg/dL Normal 0.00-1.30 [facility] Comment on above: Performed By: #### M .2199, , L500.2500, L100.0500 #### [facility] [address] [place], [address] BUN/CRE 29.7 RATIO High 10-20 [facility] Comment on above: Performed By: #### M .2199, , L500.2500, L100.0500 #### [facility] [address] [place], [address] Calcium [Mass/Vol] 9.4 mg/dL Normal 7.6-11.0 [facility] Comment on above: Performed By: #### M , , L500.2500, L100.0500 #### [facility] [address] [place], [address] Chloride [Moles/Vol] 104 mmol/L Normal 98-108 [facility] Comment on above: Performed By: #### M 100.2199, , L500.2500, L100.0500 #### [facility] [address] [place], [address] CO2 [Moles/Vol] 28.6 mmol/L Normal 21.0-32.0 [facility] Comment on above: Performed By: #### M 100.2199, , L500.2500, L100.0500 #### [facility] [address] [place], [address] Creatinine [Mass/Vol] 1.52 mg/dL High 0.70-1.20 [facility] Comment on above: Performed By: #### M .2199, , L500.2500, L100.0500 #### [facility] [address] [place], [address] GAP 10 Normal 5-15 [facility] Comment on above: Performed By: #### M .2199, , L500.2500, L100.0500 #### [facility] [address] [place], [address] GFR/1.73 sq M.predicted among non-blacks MDRD (S/P/Bld) [Vol rate/Area] 44 mL/min/{1.73_m2} Low >60 [facility] Comment on above: Result Comment: mL/m in/1.73m2 CKD-EPI Creatinine Equation (2020) Performed By: #### M .2199, , L500.2500, L100.0500 #### [facility] [address] [place], [address] Globulin (S) [Mass/Vol] 3.0 g/dL Normal 2.2-4.2 [facility] Comment on above: Performed By: #### M .2199, , L500.2500, L100.0500 #### [facility] [address] [place], [address] Glucose [Mass/Vol] 144 mg/dL High 70-99 [facility] Comment on above: Performed By: #### M 100.2199, , L500.2500, L100.0500 #### [facility] [address] [place], [address] Potassium [Moles/Vol] 4.5 mmol/L Normal 3.3-5.1 [facility] Comment on above: Performed By: #### M 100.2199, , L500.2500, L100.0500 #### [facility] [address] [place], [address] Sodium [Moles/Vol] 143 mmol/L Normal 133-145 [facility] Comment on above: Performed By: #### M 100.2199, , L500.2500, L100.0500 #### [facility] [address] [place], [address] T PROT 6.2 g/dL Normal 5.9-8.4 [facility] Comment on above: Performed By: #### M .2199, , L500.2500, L100.0500 #### [facility] [address] [place], [address] Urea nitrogen [Mass/Vol] 45 mg/dL High 4-19 [facility] Comment on above: Performed By: #### M 100.2199, , L500.2500, L100.0500 #### [facility] [address] [place], [address] Urinalysis, Completeon 04-16 RBC > 100 SEEN Normal 0-5 [facility] Comment on above: Order Comment: ZACH TER SPECIMEN Performed By: #### M 100.2199, , L500.2500, L100.0500 #### [facility] [address] [place], [address] WBC >100 SEEN Normal 0-5 [facility] Comment on above: Order Comment: ZACH TER SPECIMEN Performed By: #### M 100.2200, L400.2010, L500.2500, L100.0500 #### [facility] [address] [place], [address] BACTERIA 0 SEEN Normal None Seen [facility] Comment on above: Order Comment: ZACH TER SPECIMEN Performed By: #### M 100.2200, L400.2010, L500.2500, L100.0500 #### [facility] [address] [place], [address] EPI,SQUAMOUS 0 SEEN Normal 0-5 [facility] Comment on above: Order Comment: ZACH TER SPECIMEN Performed By: #### M 100.220, L400.2010, L500.2500, L100.0500 #### [facility] [address] [place], [address] Mucus Ql (Urine sed) 0 SEEN Normal [facility] Comment on above: Order Comment: ZACH TER SPECIMEN Performed By: #### M 100.2199, L4.2010, L500.2500, L100.0500 #### [facility] [address] [place], [address] Progress Noteon 04-15-2025 Progress Note DOS: 03/31/25 Surgery: intertan nailing of right hip Surgeon: Victoriano 4 Week Follow-up Scheduled: Yes Called patient to check in at 2 week post-op jj. Patient did not answer, left a voice message stating to call our office or reach out via [employer] with further questions or concerns. We will plan on seeing them in office at the 4 week post-op visit. Joselito Liu PA-C Orthopedic Surgery Hip and Knee Reconstruction [facility] Normal [facility] Basic Metabolic Profile (BMP )on 04-07-2025 BUN/CRE 32.6 RATIO High 10-20 [facility] Comment on above: Order Comment: 206.2 Performed By: #### M 100.2200, L400.2010, L500.2500, L100.0500 #### [facility] [address] [place], [address] Calcium [Mass/Vol] 9.2 mg/dL Normal 7.6-11.0 [facility] Comment on above: Order Comment: 206.2 Performed By: #### M 100.2200, L4, L500.2500, L100.0500 #### [facility] [address] [place], [address] Chloride [Moles/Vol] 104 mmol/L Normal 98-108 [facility] Comment on above: Order Comment: 206.2 Performed By: #### M 100.2199, , L500.2500, L100.0500 #### [facility] [address] [place], [address] CO2 [Moles/Vol] 27.5 mmol/L Normal 21.0-32.0 [facility] Comment on above: Order Comment: 206.2 Performed By: #### M 100.2199, , L500.2500, L100.0500 #### [facility] [address] [place], [address] Creatinine [Mass/Vol] 1.33 mg/dL High 0.70-1.20 [facility] Comment on above: Order Comment: 206.2 Performed By: #### M 100.2199, , L500.2500, L100.0500 #### [facility] [address] [place], [address] GAP 11 Normal 5-15 [facility] Comment on above: Order Comment: 206.2 Performed By: #### M 100.2199, , L500.2500, L100.0500 #### [facility] [address] [place], [address] GFR/1.73 sq M.predicted among non-blacks MDRD (S/P/Bld) [Vol rate/Area] 51 mL/min/{1.73_m2} Low >60 [facility] Comment on above: Order Comment: 206.2 Result Comment: mL/m in/1.73m2 CKD-EPI Creatinine Equation (2020) Performed By: #### M 100.2200, L4, L500.2500, L100.0500 #### [facility] [address] [place], [address] Glucose [Mass/Vol] 227 mg/dL High 70-99 [facility] Comment on above: Order Comment: 206.2 Performed By: #### M 100.2199, L4, L500.2500, L100.0500 #### [facility] [address] [place], [address] Potassium [Moles/Vol] 4.5 mmol/L Normal 3.3-5.1 [facility] Comment on above: Order Comment: 206.2 Performed By: #### M 100.2199, , L500.2500, L100.0500 #### [facility] [address] [place], [address] Sodium [Moles/Vol] 142 mmol/L Normal 133-145 [facility] Comment on above: Order Comment: 206.2 Performed By: #### M 100.2199, L4, L500.2500, L100.0500 #### [facility] [address] [place], [address] Urea nitrogen [Mass/Vol] 43 mg/dL High 4-19 [facility] Comment on above: Order Comment: 206.2 Performed By: #### M 100.2199, L4, L500.2500, L100.0500 #### [facility] [address] [place], [address] CBC-Complete Blood Cnt No Di ffon 04-07-2025 Erythrocyte distribution width (RBC) [Ratio] 12.9 % Normal 11.6-14.6 [facility] Comment on above: Order Comment: 206.2 Performed By: #### M 100.2199, , L500.2500, L100.0500 #### [facility] [address] [place], [address] Hematocrit (Bld) [Volume fraction] 33.5 % Low 40-54 [facility] Comment on above: Order Comment: 206.2 Performed By: #### M 100.2199, , L500.2500, L100.0500 #### [facility] [address] [place], [address] Hemoglobin (Bld) [Mass/Vol] 10.8 g/dL Low 13.0-16.5 [facility] Comment on above: Order Comment: 206.2 Performed By: #### M .2199, , L500.2500, L100.0500 #### [facility] [address] [place], [address] MCH (RBC) [Entitic mass] 29.7 pg Normal 27.0-32.0 [facility] Comment on above: Order Comment: 206.2 Performed By: #### M .2199, , L500.2500, L100.0500 #### [facility] [address] [place], [address] MCHC (RBC) [Mass/Vol] 32.2 g/dL Normal 32-36 [facility] Comment on above: Order Comment: 206.2 Performed By: #### M 100.2199, , L500.2500, L100.0500 #### [facility] [address] [place], [address] MCV (RBC) [Entitic vol] 92.0 fL Normal 80-94 [facility] Comment on above: Order Comment: 206.2 Performed By: #### M .2199, , L500.2500, L100.0500 #### [facility] [address] [place], [address] Platelet mean volume (Bld) [Entitic vol] 10.8 fL Normal 6.2-12.0 [facility] Comment on above: Order Comment: 206.2 Performed By: #### M 100.2199, , L500.2500, L100.0500 #### [facility] [address] [place], [address] Platelets (Bld) [#/Vol] 229 10*3/uL Normal 150-450 [facility] Comment on above: Order Comment: 206.2 Performed By: #### M .2199, , L500.2500, L100.0500 #### [facility] [address] [place], [address] RBC (Bld) [#/Vol] 3.64 10*6/uL Low 4.6-6.2 [facility] Comment on above: Order Comment: 206.2 Performed By: #### M .2199, , L500.2500, L100.0500 #### [facility] [address] [place], [address] RDW SD 43.5 fl Normal 35.1-43.9 [facility] Comment on above: Order Comment: 206.2 Performed By: #### M 100.2199, , L500.2500, L100.0500 #### [facility] [address] [place], [address] WBC (Bld) [#/Vol] 5.4 10*3/uL Normal 4.4-11.0 [facility] Comment on above: Order Comment: 206.2 Performed By: #### M 100.2199, , L500.2500, L100.0500 #### [facility] [address] [place], [address] 36on 04-03-2025 36 I called and spoke with the facility and got the patient scheduled for the appointment. The facility requested the [place] location. [facility] [id number] [id number] Next Site of Care Admission Date: 03/30/2025 05:49 PM Patient Name: TITA KEITH Location: [address] [id number] Date of : 1935 Placement Information Referral Type:Halfway ICF - Return Referral ID:[id number] [facility] Address 1:[address] [facility] Address 2: City:[place] Selection Factors:Returning to Facility State:[place] Normal [facility] [phone] Transport confirmed for 12 PM CM notified Kayleigh Scott via phone of transport time. [facility] [phone] Confirmed pickup time of NOON by transport company Jonathan Santiago at phone number [phone]. Location of facility drop off is return back to [facility]. Facility notified via [employer], TCC notified on secure chat. [facility] [phone] Transport requested NOON in [employer]. Awaiting time confirmation. [facility] [phone] Discharge med list transmitted to TO [facility]URN BACK TO [facility] via [employer] per TCC request. [facility] [phone] [employer] response received from facility that pt may dc today and return ICF . Spoke w MD and DC orders placed and RON completed. CM tasked for transport and for dc PW MAR to be sent to facility. Dtr to be updated via phone of Transport time. [facility] 36on 04-02-2025 36 Name of Caller: Isa Contact Reason for Appointment: Facility calling to schedule IPO for Pt. Please call to schedule thank you. Normal [facility] Laboratory - Chemistry and C hemistry - challengeon 04-02-2025 Glucose [Mass/Vol] 227 mg/dL High 70 - 100 mg/dL [facility] No Panel Informationon 04-02 Interpretation and review of laboratory results Abnormal [facility] Performed by: Gibson Velázquez, [address] [place], [place] [address] CLIA ID: [id number] [facility] Nursing Noteon 04-02-2025 Nursing Note Reported called over the Apostolic to Carlotta. [facility] Progress Noteon 04-02-2025 Progress Note Physician Response Please review the following and provide your response below. Please clarify which of the following accurately describes the patient's DM: Hyperglycemia due to Decadron This documentation will become part of the patient's medical record. [facility] Progress Note Physician Response Please review the following and provide your response below. Please clarify which of the following accurately describes the patient's respiratory status: Other - please specify no hypoxia per hospitalist This documentation will become part of the patient's medical record. [facility] Progress Note Speech-Language Pathology SPEECH LANGUAGE PATHOLOGY [facility] Modified Barium Swallow Study Patient Name: Tita Keith Evaluation Date: 04/02/2025 Date of : 1935 Admission Date: 03/30/2025 5:49 PM Age: 89 y.o. Room[facility]: [facility] A IMPRESSION: The patient presents [...] solids and Thin liquids (continue trials with [employer] to determine benefit of mildly thick liquids) [...] effort. Pt would benefit from skilled acute [employer] services oropharyngeal strengthening trial and Formal instruction [...] Vellecular residuals with all-moderate thin, severe pudding, sipzjefr-[id number] ar (difficulty to determine d/t unable to [...] intertrochanteric fracture of right femur, initial encounter ([facility]) 03/30/2025 Severe malnutrition ([facility]) ([facility]) 12/07/2023 Pneumonia due to infectious organism, unspecified laterality, unspecified part of lung 12/06/2023 Dementia without behavioral disturbance ([facility]) 09/17/2023 COVID-19 09/10/2023 Hyper (more content not included)... Normal [facility] Progress Note OCCUPATIONAL THERAPY [facility] Name/MRN: Tita Keith ([id number]) Date: 04/02/2025 Chart reviewed. Attempted to see pt today. Daughter at bedside, reporting that he had his cookie swallow this AM and has been more drowsy and agitated this AM. Plan to re-attempt therapy evaluation as schedule permits, once pt is more alert. Reema Barrios, OT Normal [facility] BASIC METABOLIC PANELon 06- Anion gap [Moles/Vol] 11 mmol/L Normal 3-13 [facility] Comment on above: Performed By: #### L AB15 ####[place]: GISSEL SHAW ([id number])[facility] ([facility])[address] [place] [address] Calcium [Mass/Vol] 9.3 mg/dL Normal 8.8-10.0 [facility] Comment on above: Performed By: #### L AB15 ####[place]: GISSEL SHAW ([id number])[facility] ([facility])[address] Chloride [Moles/Vol] 103 mmol/L Normal 98-107 [facility] Comment on above: Performed By: #### L AB15 ####[place]: GISSEL BAHOLAF ([id number])[facility] ([facility])[address] CO2 [Moles/Vol] 27 mmol/L Normal 23-31 [facility] Comment on above: Performed By: #### L AB15 ####[place]: GISSEL MCCORMICKJENS ([id number])[facility] ([facility])[address] Creatinine [Mass/Vol] 1.35 mg/dL High 0.72-1.25 [facility] Comment on above: Performed By: #### L AB15 ####[place]: GISSEL MCCORMICKJENS ([id number])[facility] ([facility] [place] [address] GLOMERULAR FILTRATION RATE ML/MIN/1.73 SQ M.PREDICTED 50.2 mL/min/1.73m*2 Low >60.0 [facility] Comment on above: Result Comment: Calc ulation based on the Chronic Kidney Disease Epidemiology Collaboration (CKD-EPI) equation refit without adjustment for race Performed By: #### L AB15 ####[place]: GISSEL BAHOLAF ([id number])[facility] ([facility] [place] [address] Glucose [Mass/Vol] 308 mg/dL High 82-115 [facility] Comment on above: Performed By: #### L AB15 ####[place]: GISSEL BAHOLAF ([id number])[facility] ([facility])[address] Potassium [Moles/Vol] 5.0 mmol/L Normal 3.5-5.1 [facility] Comment on above: Result Comment: [facility] potassium values may be up to 0.5 mmol/L lower than serum values. Performed By: #### L AB15 ####[place]: GISSEL BAHOLAF ([id number])[facility] ([facility])[address] [place] [address] [place] Sodium [Moles/Vol] 141 mmol/L Normal 136-145 [facility] Comment on above: Performed By: #### L AB15 ####[place]: GISSEL MCCORMICKClaudetteOLAF ([id number])[facility] ([facility])[address] Urea nitrogen [Mass/Vol] 30 mg/dL High 9-23 [facility] Comment on above: Performed By: #### L AB15 ####[place]: GISSEL VALERIA ([id number])[facility] ([facility])[address] Basic metabolic 1998 panelon 04-01-2025 Anion gap [Moles/Vol] 11 mmol/L 3 - 13 mmol/L [facility] Calcium [Mass/Vol] 9.3 mg/dL 8.8 - 10. 0 mg/dL [facility] [facility] Chloride [Moles/Vol] 103 mmol/L 98 - 10 7 mmol/L [facility] CO2 [Moles/Vol] 27 mmol/L 23 - 31 mmol/L [facility] Creatinine [Mass/Vol] 1.35 mg/dL High 0.72 - 1.25 mg/dL [facility] GFR/1.73 sq M.predicted (S/P/Bld) [Vol rate/Area] 50.2 mL/min Low - PINF [facility] Comment on above: Calculation based on the Chronic Kidney Disease Epidemiology Collaboration (CKD-EPI) equation refit without adjustment for race Glucose [Mass/Vol] 308 mg/dL High 82 - 115 mg/dL [facility] Interpretation and review of laboratory results Abnormal [facility] Potassium [Moles/Vol] 5 mmol/L 3.5 - 5.1 mmol/L [facility] Comment on above: Plasma potassium jacky ues may be up to 0.5 mmol/L lower than serum values. Sodium [Moles/Vol] 141 mmol/L 136 - 145 mmol/L [facility] Urea nitrogen [Mass/Vol] 30 mg/dL High 9 - 23 mg/d L [facility] CBC (HEMOGRAM)on 04-01-2025 Erythrocyte distribution width (RBC) [Ratio] 12.3 % Normal 11.5-15.0 [facility] Comment on above: Performed By: #### L [id number] ####[place]: GISSEL SHAW ([id number])[facility] (SBHLAB)[address] [place] [address] Hematocrit (Bld) [Volume fraction] 33.6 % Low 40.0-52.0 [facility] Comment on above: Performed By: #### L [id number] ####[place]: GISSEL SHAW ([id number])[facility] [place] (SBHLAB)[address] Hemoglobin (Bld) [Mass/Vol] 10.9 g/dL Low 13.0-18.0 [facility] Comment on above: Performed By: #### L [id number] ####[place]: GISSEL SHAW ([id number])[facility] ([facility])[address] [place] [address] IPF 5 Normal [facility] Comment on above: Performed By: #### L [id number] ####[place]: GISSEL SHAW ([id number])[facility] [place] (SBHLAB)[address] [place] [address] MCH (RBC) [Entitic mass] 30.1 pg Normal 26.0-34.0 [facility] Comment on above: Performed By: #### L AB294 ####[place]: GISSEL SHAW ([id number])[facility] (SBHLAB)[address] [place] [address] MCHC 32.4 % Normal 30.5-36.0 [facility] Comment on above: Performed By: #### L [id number] ####[place]: GISSEL SHAW ([id number])[facility] (SBHLAB)[address] [place] [address] MCV (RBC) [Entitic vol] 92.8 fL Normal 77.0-99.0 [facility] Comment on above: Performed By: #### L [id number] ####[place]: GISSEL SHAW ([id number])[facility] [place] (SBHLAB)[address] Platelet mean volume (Bld) [Entitic vol] 11.0 fL Normal 9.0-12.7 [facility] Comment on above: Performed By: #### L [id number] ####[place]: GISSEL VALERIA ([id number])[facility] ([facility])[address] Platelets (Bld) [#/Vol] 144 10*3/uL Normal 140-440 [facility] Comment on above: Performed By: #### L [id number] ####[place]: GISSEL BAHOLAF ([id number])[facility] (SBHLAB)[address] RBC (Bld) [#/Vol] 3.62 10*6/uL Low 4.40-5.90 [facility] Comment on above: Performed By: #### L [id number] ####[place]: GISSEL BAHOLAF ([id number])[facility] (SBHLAB)[address] WBC (Bld) [#/Vol] 6.4 10*3/uL Normal 3.6-10.7 [facility] Comment on above: Performed By: #### L [id number] ####[place]: GISSEL SHAW ([id number])[facility] ([facility])[address] CBC panel Auto (Bld)on 04-01 Erythrocyte distribution width (RBC) [Ratio] 12.3 % 11.5 - 15.0 % [facility] Hematocrit (Bld) [Volume fraction] 33.6 % Low 40.0 - 52.0 % [facility] Hemoglobin (Bld) [Mass/Vol] 10.9 g/dL Low 13.0 - 18.0 g/dL [facility] Interpretation and review of laboratory results Abnormal [facility] IPF 5 [facility] MCH (RBC) [Entitic mass] 30.1 pg 26. 0 - 34.0 pg [facility] MCHC (RBC) [Mass/Vol] 32.4 % 30.5 - 36.0 % [facility] MCV (RBC) [Entitic vol] 92.8 fL 77.0 - 99.0 fL [facility] Platelet mean volume (Bld) [Entitic vol] 11 fL 9.0 - 12.7 fL [facility] Platelets (Bld) [#/Vol] 144 10*3/uL 140 - 440 10*3/uL [facility] RBC (Bld) [#/Vol] 3.62 10*6/uL Low 4.40 - 5.9 0 10*6/uL [facility] WBC (Bld) [#/Vol] 6.4 10*3/uL 3.6 - 10.7 10*3/uL [facility] HEMOGLOBIN A1Con 04-01-2025 Glucose [Mass/Vol] 154 mg/dL Normal [facility] Comment on above: Result Comment: PRITESH [...] repeat testing. Performed By: #### L AB90 ####[place]: GISSEL SHAW ([id number])[facility] ([facility])[address] [place] [address] HEMOGLOBIN A1C 7.0 %HbA1C High <5.7 [facility] Comment on above: Result Comment: Norm al less than 5.7% Prediabetes 5.7% to 6.4% Diabetes 6.5% or higher --HgbA1C levels may not be accurate in patients who have renal disease, received recent blood transfusions, are anemic, or who have dyshemoglobinemia. Performed By: #### L AB90 ####[place]: GISSEL SHAW ([id number])[facility] ([facility])[address] [place] [address] Laboratory - Chemistry and C hemistry - challengeon 04-01-2025 Glucose [Mass/Vol] 231 mg/dL High 70 - 100 mg/dL [facility] Glucose [Mass/Vol] 221 mg/dL High 70 - 100 mg/dL [facility] Glucose [Mass/Vol] 291 mg/dL High 70 - 100 mg/dL [facility] Average glucose Estimated from glycated hemoglobin (Bld) [Mass/Vol] 154 mg/dL [facility] Glucose [Mass/Vol] 310 mg/dL High 70 - 100 mg/dL [facility] Laboratory - Hematology and Cell countson 04-01-2025 HbA1c (Bld) [Mass fraction] 7 % High NINF [facility] Comment on above: Normal less than [...] Electronically Signed Date/Time: 04/01/2025 8:32 PM T [facility] Interpretation and review of laboratory results Abnormal [facility] Performed by: Gibson Velázquez [address] [place] [place] [address] CLIA ID: [id number] [facility] Interpretation and review of laboratory results Abnormal [facility] Performed by: Gibson Velázquez [address] [place] [address] CLIA ID: [id number] [facility] Interpretation and review of laboratory results Abnormal [facility] Performed by: Gibson Velázquez [address] [place] [address] CLIA ID: [id number] [facility] Interpretation and review of laboratory results Abnormal [facility] HbA1c values of 5.7-6.4 percent indicate an increased risk for developing diabetes mellitus. HbA1c values greater than or equal to 6.5 percent are diagnostic of diabetes mellitus. For diagnosis of diabetes in individuals without unequivocal hyperglycemia, results should be confirmed by repeat testing. [facility] Interpretation and review of laboratory results Abnormal [facility] Performed by: Gibson Velázquez [address] [place] [address] CLIA ID: [id number] [facility] No Panel InformationOrdered By: Christiano Brandy on 04-01-2025 [employer] Work Phone: Progress Noteon 04-01-2025 Progress Note Speech-Language Pathology SPEECH LANGUAGE PATHOLOGY [facility] Bedside Swallow Evaluation Patient Name: Tita Keith Evaluation Date: 04/01/2025 Date of : 1935 Admission Date: 03/30/2025 5:49 PM Age: 89 y.o. Room/Bed: B1-155/-155 A IMPRESSION: S/s oropharyngeal dysphagia. + overt [...] required. Pt would benefit from skilled acute [employer] services to determine the safest route and [...] Retrospective chart review revealed a history of [employer] services as follows: 01/18/23-09/19/23. Pt demonstrated prolonged [...] vallecular residuals with moderate thin, severe pudding, [id number]-[id number] ar. Transient spillage accumulating in laryngeal vestibule [...] intertrochanteric fracture of right femur, initial encounter ([facility]) 03/30/2025 Severe malnutrition (CMS/HCC) ([facility]) 12/07/2023 Pneumonia due to infectious organism, unspecified laterality, unspecified part of lung 12/06/2023 Dementia without behavioral disturbance ([facility]) 09/17/2023 COVID-19 09/10/2023 Hyperglycemia 01/19/2023 Hyperosmolar hyperglycemic state (HHS) ([facility]) 01/17/2023 New onset type 2 diabetes mellitus (CMS/HCC) ([facility]) 03/01/2022 History of Present Illness: Patient Complaint: None stated. Pain: Pt denies any current pain. PPE Worn: gloves Objective Bedside swallow eval completed. Oral Motor Mechanism Facial Movement (CN VII) - Generalized weakness Labial Structure/Function (CN VII) - Reduced retraction, Reduced protrusion, Generalized weakness Lingual Structure/Function (CN XII) - Generalized weakness, reduced elevation and depression, reduced lateralization (mebs-ty-kjqf tongue movement) Velopharyngeal Structure/Function (CN X & XI) - Pt had difficulty opening his mouth and sticking tongue out to visualize palate. Oral Hygiene: dried secretions, xerostomia Swallowing Examination PO Trials - (more content not included)... Normal [facility] Progress Note Nutrition rescreen completed. Patient referred to the Dietitian. BMI 16.69. Normal [facility] Progress Note OCCUPATIONAL THERAPY [facility]'s Name/MRN: Tita Keith ([id number]) Date: 04/01/2025 OT orders received and chart [...] A&Ox 0 at baseline. 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 Subjective: Patient [...] q12h tamsulosin, 0.8 mg, Oral, Nightly Normal [facility] XR FEMUR 2+ VW RIGHTon 04-01 [...] Signed Date/Time: 04/01/2025 8:32 PM EDT Normal [facility] XR Femur - right 2 Viewson [...] lesion is identified. Arterial calcifications are noted. [facility] Christiano aNva MD - 04/01/2025 Patient Name: TITA KEITH [...] Electronically Signed Date/Time: 04/01/2025 8:32 PM EDT [employer] XR PELVIS 1-2 VIEWSon 2024 XR PELVIS [...] Electronically Signed Date/Time: 04/01/2025 8:32 PM EDT [facility] XR Pelvis 1 or 2 Viewson Patient [...] lesion is identified. Arterial calcifications are noted. [facility] Christiano Nava MD - 04/01/2025 Patient Name: [...] Electronically Signed Date/Time: 04/01/2025 8:32 PM EDT [facility] ABO and Rh group Confirm Nom (Bld)on 03-31-2025 ABO group Nom (Bld) A [facility] D Ag Ql (RBC) Positive [facility] APTTon 03-31-2025 aPTT Coag (Bld) [Time] 28.6 s Normal 20.0-30.5 [facility] Comment on above: Result Comment: PRITESH Maxwell COMMENTS: NOTE: The therapeutic time for Heparin anticoagulation, based on Xa activity inhibition, is an APTT of 46-80 seconds. Performed By: #### L [id number], [id number] ####[place]: GISSEL SHAW ([id number])[facility] [place] [address] BASIC METABOLIC PANELon 03-22 Anion gap [Moles/Vol] 8 mmol/L Normal 3-13 [facility] Comment on above: Performed By: #### L AB15 ####[place]: GISSEL SHAW ([id number])[facility] ([facility])[address] [place] [address] Calcium [Mass/Vol] 9.1 mg/dL Normal 8.8-10.0 [facility] Comment on above: Performed By: #### L AB15 ####[place]: GISSEL SHAW ([id number])[facility] (SBHLAB)[address] Chloride [Moles/Vol] 102 mmol/L Normal 98-107 [facility] Comment on above: Performed By: #### L AB15 ####[place]: GISSEL SHAW ([id number])[facility] (SB[facility])[address] CO2 [Moles/Vol] 27 mmol/L Normal 23-31 [facility] Comment on above: Performed By: #### L AB15 ####[place]: GISSEL SHAW ([id number])[facility] (SBHLAB)[address] Creatinine [Mass/Vol] 1.22 mg/dL Normal 0.72-1.25 [facility] Comment on above: Performed By: #### L AB15 ####[place]: GISSEL SHAW ([id number])[facility] (SBHLAB)[address] GLOMERULAR FILTRATION RATE ML/MIN/1.73 SQ M.PREDICTED 56.7 mL/min/1.73m*2 Low >60.0 [facility] Comment on above: Result Comment: Calc ulation based on the Chronic Kidney Disease Epidemiology Collaboration (CKD-EPI) equation refit without adjustment for race Performed By: #### L AB15 ####[place]: GISSEL SHAW ([id number])[facility] (SB[facility])[address] Glucose [Mass/Vol] 299 mg/dL High 82-115 [facility] Comment on above: Performed By: #### L AB15 ####[place]: GISSEL SHAW ([id number])[facility] (HLAB)[address] Potassium [Moles/Vol] 4.2 mmol/L Normal 3.5-5.1 [facility] Comment on above: Result Comment: [facility] potassium values may be up to 0.5 mmol/L lower than serum values. Performed By: #### L AB15 ####[place]: GISSEL SHAW ([id number])[facility] (SBHLAB)[address] [place] [address] [place] Sodium [Moles/Vol] 137 mmol/L Normal 136-145 [facility] Comment on above: Performed By: #### L AB15 ####[place]: GISSEL SHAW ([id number])[facility] (SB[facility])[address] Urea nitrogen [Mass/Vol] 30 mg/dL High 9-23 [facility] Comment on above: Performed By: #### L AB15 ####[place]: GISSEL SHAW ([id number])[facility] (SBHLAB)[address] Anion gap [Moles/Vol] 10 mmol/L Normal 3-13 [facility] Comment on above: Performed By: #### L AB15 ####[place]: GISSEL SHAW ([id number])[facility] [place] (SBHLAB)[address] Calcium [Mass/Vol] 9.0 mg/dL Normal 8.8-10.0 [facility] Comment on above: Performed By: #### L AB15 ####[place]: GISSEL SHAW ([id number])[facility] [place] (SBHLAB)[address] Chloride [Moles/Vol] 103 mmol/L Normal 98-107 [facility] Comment on above: Performed By: #### L AB15 ####[place]: GISSEL SHAW ([id number])[facility] [place] (SB[facility]AB)[address] CO2 [Moles/Vol] 26 mmol/L Normal 23-31 [facility] Comment on above: Performed By: #### L AB15 ####[place]: GISSEL SHAW ([id number])[facility] [place] (SBHLAB)[address] [place] [address] [place] Creatinine [Mass/Vol] 1.33 mg/dL High 0.72-1.25 [facility] Comment on above: Performed By: #### L AB15 ####[place]: GISSEL SHAW ([id number])[facility] [place] (SBHLAB)[address] GLOMERULAR FILTRATION RATE ML/MIN/1.73 SQ M.PREDICTED 51.1 mL/min/1.73m*2 Low >60.0 [facility] Comment on above: Result Comment: Calc ulation based on the Chronic Kidney Disease Epidemiology Collaboration (CKD-EPI) equation refit without adjustment for race Performed By: #### L AB15 ####[place]: GISSEL SHAW ([id number])[facility] (SBHLAB)[address] Glucose [Mass/Vol] 295 mg/dL High 82-115 [facility] Comment on above: Performed By: #### L AB15 ####[place]: GISSEL SHAW ([id number])[facility] (SBHLAB)[address] Potassium [Moles/Vol] 4.4 mmol/L Normal 3.5-5.1 [facility] Comment on above: Result Comment: [facility] potassium values may be up to 0.5 mmol/L lower than serum values. Performed By: #### L AB15 ####[place]: GISSEL SHAW ([id number])[facility] (SB[facility])[address] Sodium [Moles/Vol] 139 mmol/L Normal 136-145 [facility] Comment on above: Performed By: #### L AB15 ####[place]: GISSEL SHAW ([id number])[facility] (SBHLAB)[address] Urea nitrogen [Mass/Vol] 35 mg/dL High 9-23 [facility] Comment on above: Performed By: #### L AB15 ####[place]: GISSEL SHAW ([id number])[facility] (SB[facility]AB)[address] BLOOD TYPE AND SCREEN GELon 03-31-2025 ABO GROUPING A Normal [facility] Comment on above: Performed By: #### L AB276 ####[place]: GISSEL SHAW ([id number])[facility] ([facility])[address] RH TYPE IN BLOOD Positive Normal [facility] Comment on above: Performed By: #### L [id number] ####[place]: GISSEL SHAW ([id number])[facility] ([facility])[address] [place] [address] [facility] Basic metabolic 1998 panelon 03-31-2025 Anion gap [Moles/Vol] 8 mmol/L 3 - 13 mmol/L [facility] [employer] Calcium [Mass/Vol] 9.1 mg/dL 8.8 - 10. 0 mg/dL [facility] [employer] Chloride [Moles/Vol] 102 mmol/L 98 - 10 7 mmol/L [facility] CO2 [Moles/Vol] 27 mmol/L 23 - 31 mmol/L [facility] Creatinine [Mass/Vol] 1.22 mg/dL 0.72 - 1.25 mg/dL [facility] GFR/1.73 sq M.predicted (S/P/Bld) [Vol rate/Area] 56.7 mL/min Low - PINF [facility] Comment on above: Calculation based on the Chronic Kidney Disease Epidemiology Collaboration (CKD-EPI) equation refit without adjustment for race Glucose [Mass/Vol] 299 mg/dL High 82 - 115 mg/dL [facility] [employer] Interpretation and review of laboratory results Abnormal [facility] Potassium [Moles/Vol] 4.2 mmol/L 3.5 - 5.1 mmol/L [facility] Comment on above: Plasma potassium jacky ues may be up to 0.5 mmol/L lower than serum values. Sodium [Moles/Vol] 137 mmol/L 136 - 145 mmol/L [facility] Urea nitrogen [Mass/Vol] 30 mg/dL High 9 - 23 mg/d L [employer] [facility] [facility] Anion gap [Moles/Vol] 10 mmol/L 3 - 13 mmol/L [employer] [facility] Calcium [Mass/Vol] 9 mg/dL 8.8 - 10. 0 mg/dL [employer] [facility] Chloride [Moles/Vol] 103 mmol/L 98 - 10 7 mmol/L [facility] CO2 [Moles/Vol] 26 mmol/L 23 - 31 mmol/L [employer] [facility] Creatinine [Mass/Vol] 1.33 mg/dL High 0.72 - 1.25 mg/dL [facility] [facility] GFR/1.73 sq M.predicted (S/P/Bld) [Vol rate/Area] 51.1 mL/min Low - PINF [facility] Comment on above: Calculation based on the Chronic Kidney Disease Epidemiology Collaboration (CKD-EPI) equation refit without adjustment for race Glucose [Mass/Vol] 295 mg/dL High 82 - 115 mg/dL [facility] Interpretation and review of laboratory results Abnormal [facility] Potassium [Moles/Vol] 4.4 mmol/L 3.5 - 5.1 mmol/L [facility] Comment on above: Plasma potassium jacky ues may be up to 0.5 mmol/L lower than serum values. Sodium [Moles/Vol] 139 mmol/L 136 - 145 mmol/L [facility] Urea nitrogen [Mass/Vol] 35 mg/dL High 9 - 23 mg/d L [facility] Blood type and Crossmatch pa zabrina (Bld)on 03-31-2025 ABO group Nom (Bld) A [facility] Blood group antibody screen GEL Ql Negative [facility] D Ag Ql (RBC) Positive [facility] CBC (HEMOGRAM)on 03-31-2025 Erythrocyte distribution width (RBC) [Ratio] 12.6 % Normal 11.5-15.0 [facility] Comment on above: Performed By: #### L [id number] ####[place]: GISSEL SHAW ([id number])[facility] ([facility])[address] [place] [address] Hematocrit (Bld) [Volume fraction] 35.2 % Low 40.0-52.0 [facility] Comment on above: Performed By: #### L AB294 ####[place]: GISSEL SHAW ([id number])[facility] (SB[facility])[address] [place] [address] Hemoglobin (Bld) [Mass/Vol] 11.8 g/dL Low 13.0-18.0 [facility] Comment on above: Performed By: #### L AB294 ####[place]: GISSEL SHAW ([id number])[facility] (SBAB)[address] IPF 4 Normal [facility] Comment on above: Performed By: #### L AB294 ####[place]: GISSEL SHAW ([id number])[facility] (SBHLAB)[address] MCH (RBC) [Entitic mass] 29.9 pg Normal 26.0-34.0 [facility] Comment on above: Performed By: #### L AB294 ####[place]: GISSEL SHAW ([id number])[facility] (SBHLAB)[address] MCHC 33.5 % Normal 30.5-36.0 [facility] Comment on above: Performed By: #### L AB294 ####[place]: GISSEL SHAW ([id number])[facility] (SBHLAB)[address] [place] [address] MCV (RBC) [Entitic vol] 89.3 fL Normal 77.0-99.0 [facility] Comment on above: Performed By: #### L AB294 ####[place]: GISSEL SHAW ([id number])[facility] (SBHLAB)[address] Platelet mean volume (Bld) [Entitic vol] 11.4 fL Normal 9.0-12.7 [facility] Comment on above: Performed By: #### L AB294 ####[place]: GISSEL SHAW ([id number])[facility]LLN (SBHLAB)[address] Platelets (Bld) [#/Vol] 119 10*3/uL Low 140-440 [facility] Comment on above: Performed By: #### L AB294 ####[place]: GISSEL SHAW ([id number])[facility] (SBHLAB)[address] RBC (Bld) [#/Vol] 3.94 10*6/uL Low 4.40-5.90 [facility] Comment on above: Performed By: #### L AB294 ####[place]: GISSEL SHAW ([id number])[facility] (SB[facility])[address] WBC (Bld) [#/Vol] 6.8 10*3/uL Normal 3.6-10.7 [facility] Comment on above: Performed By: #### L AB294 ####[place]: GISSEL SHAW ([id number])[facility] (SB[facility])[address] CBC W Auto Differential pane l (Bld)on 03-31-2025 Basophils (Bld) [#/Vol] 0 10*3/uL 0.0 - 0.2 10*3/uL [facility] [employer] Basophils/100 WBC (Bld) 0.1 % 0.0 - 2.0 % [facility] Eosinophils (Bld) [#/Vol] 0 10*3/uL 0.0 - 0.5 10*3/uL [facility] Eosinophils/100 WBC (Bld) 0.3 % 0.0 - 6.0 % [facility] Erythrocyte distribution width (RBC) [Ratio] 12.7 % 11.5 - 15.0 % [facility] [facility] Hematocrit (Bld) [Volume fraction] 33.7 % Low 40.0 - 52.0 % [facility] Hemoglobin (Bld) [Mass/Vol] 11.4 g/dL Low 13.0 - 18.0 g/dL [facility] [facility] Immature granulocytes (Bld) [#/Vol] 0 10*3/uL NINF - 0.1 10*3/uL [facility] [employer] Immature granulocytes/100 WBC (Bld) 0.3 % 0.0 - 2.0 % [facility] Interpretation and review of laboratory results Abnormal [facility] IPF 3 [facility] Lymphocytes (Bld) [#/Vol] 1.1 10*3/uL 1.0 - 4.3 10*3/uL [facility] Lymphocytes/100 WBC (Bld) 15.4 % 15.0 - 45.0 % [facility] MCH (RBC) [Entitic mass] 30.3 pg 26. 0 - 34.0 pg [facility] MCHC (RBC) [Mass/Vol] 33.8 % 30.5 - 36.0 % [facility] MCV (RBC) [Entitic vol] 89.6 fL 77.0 - 99.0 fL [facility] Monocytes (Bld) [#/Vol] 0.8 10*3/uL 0.0 - 0.9 10*3/uL [facility] Monocytes/100 WBC (Bld) 11.2 % 5.0 - 13.0 % [facility] Neutrophils (Bld) [#/Vol] 4.9 10*3/uL 1.8 - 7.5 10*3/uL [facility] Neutrophils/100 WBC (Bld) 72.7 % 38.0 - 82.0 % [facility] Nucleated RBC/100 WBC (Bld) [Ratio] 0 % [facility] Platelet mean volume (Bld) [Entitic vol] 11.1 fL 9.0 - 12.7 fL [facility] Platelets (Bld) [#/Vol] 120 10*3/uL Low 140 - 440 10*3/uL [facility] RBC (Bld) [#/Vol] 3.76 10*6/uL Low 4.40 - 5.9 0 10*6/uL [facility] [facility] WBC (Bld) [#/Vol] 6.8 10*3/uL 3.6 - 10.7 10*3/uL [facility] CBC WITH AUTO DIFFERENTIALon 03-31-2025 Basophils (Bld) [#/Vol] 0.0 10*3/uL Normal 0.0-0.2 [facility] Comment on above: Performed By: #### L [id number] ####[place]: GISSEL SHAW ([id number])[facility] ([facility])[address] Basophils/100 WBC (Bld) 0.1 % Normal 0.0-2.0 [facility] Comment on above: Performed By: #### L [id number] ####[place]: GISSEL SHAW ([id number])[facility] (SBHLAB)155 [place] [address] [place] Eosinophils (Bld) [#/Vol] 0.0 10*3/uL Normal 0.0-0.5 [facility] Comment on above: Performed By: #### L [id number] ####[place]: GISSEL BAHOLAF ([id number])[facility] (SB[facility])[address] Eosinophils/100 WBC (Bld) 0.3 % Normal 0.0-6.0 [facility] Comment on above: Performed By: #### L [id number] ####[place]: GISSEL BAHOLAF ([id number])[facility] ([facility])[address] Erythrocyte distribution width (RBC) [Ratio] 12.7 % Normal 11.5-15.0 [facility] Comment on above: Performed By: #### L [id number] ####[place]: GISSEL BAHOLAF ([id number])[facility] ([facility])[address] Hematocrit (Bld) [Volume fraction] 33.7 % Low 40.0-52.0 [facility] Comment on above: Performed By: #### L [id number] ####[place]: GISSEL BAHOLAF ([id number])[facility] ([facility])[address] [place] [address] Hemoglobin (Bld) [Mass/Vol] 11.4 g/dL Low 13.0-18.0 [facility] Comment on above: Performed By: #### L [id number] ####[place]: GISSEL SHAW ([id number])[facility] (SBAB)[address] IMMATURE GRANS % 0.3 % Normal 0.0-2.0 [facility] Comment on above: Performed By: #### L [id number] ####[place]: GISSEL SHAW ([id number])[facility] ([facility])[address] IMMATURE GRANS ABSOLUTE 0.0 10*3/uL Normal <0.1 [facility] Comment on above: Performed By: #### L [id number] ####[place]: GISSEL SHAW ([id number])[facility] ([facility])[address] IPF 3 Normal [facility] Comment on above: Performed By: #### L [id number] ####[place]: GISSEL BAHOLAF ([id number])[facility] ([facility])[address] Lymphocytes (Bld) [#/Vol] 1.1 10*3/uL Normal 1.0-4.3 [facility] Comment on above: Performed By: #### L [id number] ####[place]: GISSEL BAHOLAF ([id number])[facility] ([facility])[address] [place] [address] Lymphocytes/100 WBC (Bld) 15.4 % Normal 15.0-45.0 [facility] Comment on above: Performed By: #### L [id number] ####[place]: GISSEL SHAW ([id number])[facility] ([facility])[address] [place] [address] MCH (RBC) [Entitic mass] 30.3 pg Normal 26.0-34.0 [facility] Comment on above: Performed By: #### L [id number] ####[place]: GISSEL SHAW ([id number])[facility] ([facility])[address] [place] [address] MCHC 33.8 % Normal 30.5-36.0 [facility] Comment on above: Performed By: #### L [id number] ####[place]: GISSEL SHAW ([id number])[facility] ([facility])[address] [place] [address] MCV (RBC) [Entitic vol] 89.6 fL Normal 77.0-99.0 [facility] Comment on above: Performed By: #### L [id number] ####[place]: GISSEL MCCORMICKClaudetteOLAF ([id number])[facility] [place] (SBHLAB)[address] Monocytes (Bld) [#/Vol] 0.8 10*3/uL Normal 0.0-0.9 [facility] Comment on above: Performed By: #### L [id number] ####[place]: GISSEL MCCORMICKJENS ([id number])[facility] [place] (SBHLAB)[address] Monocytes/100 WBC (Bld) 11.2 % Normal 5.0-13.0 [facility] Comment on above: Performed By: #### L [id number] ####[place]: GISSEL MCCORMICKJENS ([id number])[facility] [place] (SBHLAB)[address] NEUTROPHILS ABSOLUTE 4.9 10*3/uL Normal 1.8-7.5 [facility] Comment on above: Performed By: #### L [id number] ####[place]: GISSEL BAHOLAF ([id number])[facility] [place] (SBHLAB)[address] Neutrophils/100 WBC (Bld) 72.7 % Normal 38.0-82.0 [facility] Comment on above: Performed By: #### L [id number] ####[place]: GISSEL SHAW ([id number])[facility] [place] (SBHLAB)[address] NRBC 0.0 /100 WBCs Normal 0.0-2.0 [facility] Comment on above: Performed By: #### L [id number] ####[place]: GISSEL SHAW ([id number])[facility] [place] (SBHLAB)[address] Platelet mean volume (Bld) [Entitic vol] 11.1 fL Normal 9.0-12.7 [facility] Comment on above: Performed By: #### L [id number] ####[place]: GISSEL SHAW ([id number])[facility]ITAL[facility]amp DOBSONN (SBHLAB)[address] Platelets (Bld) [#/Vol] 120 10*3/uL Low 140-440 [facility] Comment on above: Performed By: #### L [id number] ####[place]: GISSEL SHAW ([id number])[facility]OVEL[facility]N (SBHLAB)[address] RBC (Bld) [#/Vol] 3.76 10*6/uL Low 4.40-5.90 [facility] Comment on above: Performed By: #### L [id number] ####[place]: GISSEL SHAW ([id number])[facility]ITAL[facility] [place] (SBHLAB)[address] [place] [address] WBC (Bld) [#/Vol] 6.8 10*3/uL Normal 3.6-10.7 [facility] Comment on above: Performed By: #### L [id number] ####[place]: GISSEL SHAW ([id number])[facility] (HLAB)[address] [place] [address] CBC panel Auto (Bld)on 03-31 Erythrocyte distribution width (RBC) [Ratio] 12.6 % 11.5 - 15.0 % [facility] [employer] Hematocrit (Bld) [Volume fraction] 35.2 % Low 40.0 - 52.0 % [facility] Hemoglobin (Bld) [Mass/Vol] 11.8 g/dL Low 13.0 - 18.0 g/dL [facility] Interpretation and review of laboratory results Abnormal [facility] [employer] IPF 4 [facility] [employer] MCH (RBC) [Entitic mass] 29.9 pg 26. 0 - 34.0 pg [facility] MCHC (RBC) [Mass/Vol] 33.5 % 30.5 - 36.0 % [facility] MCV (RBC) [Entitic vol] 89.3 fL 77.0 - 99.0 fL [facility] Platelet mean volume (Bld) [Entitic vol] 11.4 fL 9.0 - 12.7 fL [facility] Platelets (Bld) [#/Vol] 119 10*3/uL Low 140 - 440 10*3/uL [facility] RBC (Bld) [#/Vol] 3.94 10*6/uL Low 4.40 - 5.9 0 10*6/uL [facility] WBC (Bld) [#/Vol] 6.8 10*3/uL 3.6 - 10.7 10*3/uL [facility] Consulton 03-31-2025 Consult Please see previously dictated consult note Normal [facility] ECG 12-LEADon 03-31-2025 ECG 12-LEAD IMPRESSION: Sinus rhythm Nonspecific T abnormalities, anterior leads Electronically Signed On 03-31-2025 08:56:56 EDT by Pawan Chin Normal [facility] ED Nursing Noteon 03-31-2025 ED Nursing Note Patient was incontinent of stool. Cleaned up and silverio placed as ordered. Patient repositioned to comfort. Confused to situation and date. Normal [facility] Laboratory - Chemistry and C hemistry - challengeon 03-31-2025 Glucose [Mass/Vol] 254 mg/dL High 70 - 100 mg/dL [facility] Glucose [Mass/Vol] 193 mg/dL High 70 - 100 mg/dL [facility] Glucose [Mass/Vol] 165 mg/dL High 70 - 100 mg/dL [facility] Glucose [Mass/Vol] 277 mg/dL High 70 - 100 mg/dL [facility] Glucose [Mass/Vol] 294 mg/dL High 70 - 100 mg/dL [facility] Laboratory - Coagulationon 0 03-31-2025 PT Coag (Bld) [Time] 10.9 s 9.0 - 12.0 s [facility] No Panel Informationon 03-31 Interpretation and review of laboratory results Abnormal [facility] Performed by: Gibson Velázquez, [address] [place] [place] [address] CLIA ID: [id number] [facility] Interpretation and review of laboratory results Abnormal [facility] Performed by: Gibson Velázquez, [address] [place] [address] CLIA ID: [id number] [facility] Interpretation and review of laboratory results Abnormal [facility] Performed by: Tonachamp Velázquez, [address] [facility], [facility] [address] CLIA ID: [id number] [facility] There is no interpretation needed for this exam. IMAGING Interpretation and review of laboratory results Abnormal [facility] Performed by: Tonachamp Velázquez, [address] [facility] [place], [facility] [address] CLIA ID: [id number] [facility] Interpretation and review of laboratory results Abnormal [facility] Performed by: Tonacahmp Velázquez, [address] [facility] [place], [facility] [address] CLIA ID: [id number] [facility] Sinus rhythm Nonspecific T abnormalities, anterior leads Electronically Signed On 03-31-2025 08:56:56 EDT by Pawan Chin CV Pawan Wright MD - 03/31/2025 IMPRESSION: Sinus rhythm Nonspecific T abnormalities, anterior leads Electronically Signed On 03-31-2025 08:56:56 EDT by Pawan Chin [facility] Interpretation and review of laboratory results Normal [facility] No Panel InformationOrdered By: Pawan Chin on 03-31-2025 P [place] 34 degrees [facility] [employer] Work Phone: [place] Interval 174 ms [facility] [employer] Work Phone: QRS [place] 48 degrees [facility] [employer] Work Phone: QRSD Interval 88 ms [facility] Work Phone: QT Interval 339 ms [facility] [employer] Work Phone: QTC Interval 400 ms [facility] [employer] Work Phone: T Wave [place] -5 degrees [facility] [employer] Work Phone: [facility] [employer] Work Phone: Nursing Noteon 03-31-2025 Nursing Note Pt bgl 277. Dr ngo notified and insulin order placed at this time Normal [facility] Op Noteon 03-31-2025 Op Note Operative Report Patient Name: Tita Keith Date of : 1935 Date of Surgery: 03/31/25 Pre-operative diagnosis: Right peritrochanteric femur fracture Post-operative diagnosis: Same Procedure(s): Intertan nailing of right hip (CPT 61947) Surgeon: Trae Deleon M.D. Inserting Press Operator(s): Verna PGY-I Anesthesia: Nerve Block and General [...] as well as medical complications such as [place], stroke, PE, DVT, and even . Patient [...] was impacted using the depth tower to extrusion die template maker the depth of placement. The proximal femur was prepared for the lag and worm screws with excellent compression achieved. Based on the patient's fracture pattern, the preloaded setscrew did not require locking. The distal screw was placed using perfect [place] technique. Final films were obtained and saved. [...] Deleon MD at 03/31/25, 8:18 PM Normal [facility] PROTHROMBIN TIMEon INR Coag (PPP) [Relative time] 1.0 {INR} Normal 0.9-1.1 [facility] Comment on above: Result Comment: Marquise [...] to prevent Myocardial Infarction Performed By: #### Peggy [id number], [id number] ####[place]: GISSEL SHAW ([id number])[facility] ([facility])[address] [place] [address] PT Coag (PPP) [Time] 10.9 s Normal 9.0-12.0 [facility] Comment on above: Performed By: #### L [id number], [id number] ####[place]: GISSEL SHAW ([id number])[facility] ([facility])[address] PT Coag (Bld) [Time]on 03-31 INR Coag (PPP) [Relative time] 1 {INR} 0.9 - 1.1 [facility] Comment on above: Recommended Anticoag ulant [...] -Consent obtained over phone from Kayleigh Mendez, [facility] power of energy attorney -Pre-op workup complete -Ice -APS consulted -Bedrest -Admit to medicine -Pain control & medical management per primary -Please hold DVT prophylaxis in anticipation of OR -Please comment on clearance in case of OR, 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 Scattered vascular calcification is noted. [facility] Minh Sylvester MD - 03/31/2025 Patient Name: TITA KEITH : 1935 [facility]#: [id number] Exam Date/Time: 03/30/2025 23:50 Procedure: XR KNEE [...] Electronically Signed Date/Time: 03/31/2025 12:10 AM EDT [employer] XR Knee - right 1 or 2 Views Ordered By: Minh Sylvester on 03-31-2025 [employer] XR Pelvis 1 or 2 Viewson Radiology Study observation (narrative) [facility] aPTT Coag (Bld) [Time]on aPTT Coag (PPP) [Time] 28.6 s 20.0 - 30.5 s [facility] NOTE: The therapeutic time for Heparin anticoagulation, based on Xa activity inhibition, is an APTT of 46-80 seconds. [facility] Consulton 03-30-2025 Consult Attestation signed by Trae [...] as well as medical complications such as [place], stroke, PE, DVT, and even . Patient/family was given opportunity to ask questions and consider his options. They ultimately elected to proceed with surgery. No guarantees were stated or implied. Ortho Consult Patient: Tita Keith Date of : 1935 Acct: [id number] PCP: Marj Plasencia Date of Admission: 03/30/2025 [...] Physically Abused: (more content not included)... Normal [facility] ED Provider Noteon ED Provider Note EMERGENCY DEPARTMENT ENCOUNTER Pt Name: Tita Keith Birthdate 1935 Date of evaluation: 03/30/2025 ED Provider: Jj Lara MD CHIEF COMPLAINT Chief Complaint Patient presents with Fall Pt had a fall last night at [facility]. [facility] performed an X-Ray that shows a right [...] right intertrochanter (more content not included)... [facility] No Panel InformationOrdered By: Gerhard Hannah on 03-30-2025 [employer] Work Phone: XR Chest Single viewon 03-30 Normal examination. Report Dictated on Electronically Signed By: Gerhard Hannah MD Electronically Signed Date/Time: 03/30/2025 7:24 PM EDT [facility] Patient Name: TITA KEITH : 1935 Exam Date/Time: 03/30/2025 18:52 Procedure: XR CHEST 1 VIEW Ordering Provider: LARA MARK Reason For Exam: sob Chest one view History: Short of breath The heart, mediastinum, pulmonary vasculature, lungs and pleural spaces are normal. [facility] Gerhard Hannah MD - 03/30/2025 [...] Electronically Signed Date/Time: 03/30/2025 7:24 PM EDT [facility] Radiology Study observation (narrative) [facility] al[facility] XR Femur - right 2 Viewson [...] Electronically Signed Date/Time: 03/30/2025 7:25 PM EDT [facility] Gerhard Hannah MD - 03/30/2025 [...] Electronically Signed Date/Time: 03/30/2025 7:25 PM EDT [facility] Radiology Study observation (narrative) [facility] XR Knee - right 1 or 2 Views on 03-30-2025 Radiology Study observation (narrative) [facility] XR Pelvis 1 or 2 Viewson [...] Electronically Signed Date/Time: 03/30/2025 7:25 PM EDT [facility] Gerhard Hannah MD - 03/30/2025 [...] Electronically Signed Date/Time: 03/30/2025 7:25 PM EDT [facility] Radiology Study observation (narrative) Gibson ralph Anion gap in Serum or Plasma Ordered By: Javy Lynn on 03-03-2025 Anion gap [Moles/Vol] 9 mmol/L 5-15 [facility] BUN/creatinine ratioOrdered By: Javy Lynn on 03-03-2025 Urea nitrogen/Creatinine [Mass ratio] 24.7 mg/mg High 10-20 [facility] Bilirubin, totalOrdered By: Javy Lynn on 03-03-2025 Bilirubin [Mass/Vol] 0.48 mg/dL 0.00-1.30 [facility] CBC-Complete Blood Cnt No Di ffon 03-03-2025 Erythrocyte distribution width (RBC) [Ratio] 12.7 % Normal 11.6-14.6 [facility] Comment on above: Performed By: #### M 100.2199, L4, L500.2500, L100.0500 #### [facility] Laboratory [address] [place], [address] Hematocrit (Bld) [Volume fraction] 37.6 % Low 40-54 [facility] Comment on above: Performed By: #### M 100.2199, , L500.2500, L100.0500 #### [facility] [address] [place], [address] Hemoglobin (Bld) [Mass/Vol] 12.5 g/dL Low 13.0-16.5 [facility] Comment on above: Performed By: #### M 100.2200, L4, L500.2500, L100.0500 #### [facility] [address] [place], [address] MCH (RBC) [Entitic mass] 30.6 pg Normal 27.0-32.0 [facility] Comment on above: Performed By: #### M 100.220, L4, L500.2500, L100.0500 #### [facility] [address] [place], [address] MCHC (RBC) [Mass/Vol] 33.2 g/dL Normal 32-36 [facility] Comment on above: Performed By: #### M 100.2199, , L500.2500, L100.0500 #### [facility] [address] [place], [address] MCV (RBC) [Entitic vol] 91.9 fL Normal 80-94 [facility] Comment on above: Performed By: #### M 100.2199, L4, L500.2500, L100.0500 #### [facility] [address] [place], [address] Platelet mean volume (Bld) [Entitic vol] 11.1 fL Normal 6.2-12.0 [facility] Comment on above: Performed By: #### M .2199, , L500.2500, L100.0500 #### [facility] [address] [place], [address] Platelets (Bld) [#/Vol] 163 10*3/uL Normal 150-450 [facility] Comment on above: Performed By: #### M 100.2199, , L500.2500, L100.0500 #### [facility] [address] [place], [address] RBC (Bld) [#/Vol] 4.09 10*6/uL Low 4.6-6.2 [facility] Comment on above: Performed By: #### M 100.2199, , L500.2500, L100.0500 #### [facility] [address] [place], [address] RDW SD 42.8 fl Normal 35.1-43.9 [facility] Comment on above: Performed By: #### M 100.2199, , L500.2500, L100.0500 #### [facility] [address] [place], [address] WBC (Bld) [#/Vol] 7.4 10*3/uL Normal 4.4-11.0 [facility] Comment on above: Performed By: #### M 100.2199, , L500.2500, L100.0500 #### [facility] [address] [place], [address] Carbon dioxide, total [Moles /volume] in Central venous bloodOrdered By: Javy Lynn on 03-03-2025 CO2 [Moles/Vol] 27.1 mmol/L 21.0-32.0 [facility] Chloride assayOrdered By: Manzanares on 03-03-2025 Chloride [Moles/Vol] 102 mmol/L 98-108 [facility] Comprehensive Metabolic Prof ilon 03-03-2025 Albumin [Mass/Vol] 3.7 g/dL Normal 3.4-4.8 [facility] Comment on above: Performed By: #### M .2199, , L500.2500, L100.0500 #### [facility] [address] [place], [address] Albumin/Globulin [Mass ratio] 1.2 {ratio} Normal 0.9-2.4 [facility] Comment on above: Performed By: #### M 100.2199, , L500.2500, L100.0500 #### [facility] [address] [place], [address] ALK PHOS 133 U/L High 40-129 [facility] Comment on above: Performed By: #### M 100.220, L4, L500.2500, L100.0500 #### [facility] [address] [place], [address] ALT [Catalytic activity/Vol] 12 U/L Normal <=46 [facility] Comment on above: Performed By: #### M 100.2199, , L500.2500, L100.0500 #### [facility] [address] [place], [address] AST [Catalytic activity/Vol] 18 U/L Normal <=37 [facility] Comment on above: Performed By: #### M 100.2199, , L500.2500, L100.0500 #### [facility] [address] [place], [address] Bilirubin [Mass/Vol] 0.48 mg/dL Normal 0.00-1.30 [facility] Comment on above: Performed By: #### M .2199, , L500.2500, L100.0500 #### [facility] [address] [place], [address] BUN/CRE 24.7 RATIO High 10-20 [facility] Comment on above: Performed By: #### M .2199, , L500.2500, L100.0500 #### [facility] [address] [place], [address] Calcium [Mass/Vol] 9.8 mg/dL Normal 7.6-11.0 [facility] Comment on above: Performed By: #### M .2199, , L500.2500, L100.0500 #### [facility] [address] [place], [address] Chloride [Moles/Vol] 102 mmol/L Normal 98-108 [facility] Comment on above: Performed By: #### M 100.2199, , L500.2500, L100.0500 #### [facility] [address] [place], [address] CO2 [Moles/Vol] 27.1 mmol/L Normal 21.0-32.0 [facility] Comment on above: Performed By: #### M 100.2199, , L500.2500, L100.0500 #### [facility] [address] [place], [address] Creatinine [Mass/Vol] 1.08 mg/dL Normal 0.70-1.20 [facility] Comment on above: Performed By: #### M .2199, , L500.2500, L100.0500 #### [facility] [address] [place], [address] GAP 9 Normal 5-15 [facility] Comment on above: Performed By: #### M .2199, , L500.2500, L100.0500 #### [facility] [address] [place], [address] GFR/1.73 sq M.predicted among non-blacks MDRD (S/P/Bld) [Vol rate/Area] 66 mL/min/{1.73_m2} Normal >60 [facility] Comment on above: Result Comment: mL/m in/1.73m2 CKD-EPI Creatinine Equation (2020) Performed By: #### M .2199, , L500.2500, L100.0500 #### [facility] [address] [place], [address] Globulin (S) [Mass/Vol] 3.2 g/dL Normal 2.2-4.2 [facility] Comment on above: Performed By: #### M .2199, , L500.2500, L100.0500 #### [facility] [address] [place], [address] Glucose [Mass/Vol] 162 mg/dL High 70-99 [facility] Comment on above: Performed By: #### M 0, L4, L500.2500, L100.0500 #### [facility] [address] [place], [address] Potassium [Moles/Vol] 5.1 mmol/L Normal 3.3-5.1 [facility] Comment on above: Performed By: #### M 100.2200, L400.2010, L500.2500, L100.0500 #### [facility] [address] [place], [address] Sodium [Moles/Vol] 138 mmol/L Normal 133-145 [facility] Comment on above: Performed By: #### M 100.220, L4, L500.2500, L100.0500 #### [facility] [address] [place], [address] T PROT 6.8 g/dL Normal 5.9-8.4 [facility] Comment on above: Performed By: #### M 100.2199, L4, L500.2500, L100.0500 #### [facility] [address] [place], [address] Urea nitrogen [Mass/Vol] 27 mg/dL High 4-19 [facility] Comment on above: Performed By: #### M 100.2199, L4, L500.2500, L100.0500 #### [facility] [address] [place], [address] Erythrocyte distribution wid th ratioOrdered By: Javy Lynn on 03-03-2025 Erythrocyte distribution width (RBC) [Ratio] 12.7 % 11.6-14.6 [facility] Erythrocyte distribution wid th standard deviationOrdered By: Javy Lynn on 03-03-2025 Erythrocyte distribution width (RBC) [Ratio] 42.8 fl 35.1-43.9 [facility] Glomerular filtration rate ( GFR) estimation/1.73 sq m using serum, plasma, or whole bOrdered By: Javy Lynn on 03-03-2025 GFR/1.73 sq M.predicted among non-blacks MDRD (S/P/Bld) [Vol rate/Area] 66 mL/min/{1.73_m2} >60 [facility] Comment on above: mL/min/1.73m2 CKD-EP I Creatinine Equation (2020) Hematocrit Auto (Bld) [Volum e fraction]Ordered By: Javy Lynn on 03-03-2025 Hematocrit (Bld) [Volume fraction] 37.6 % Low 40-54 [facility] Hemoglobin measurementOrdere d By: Javy Lynn on 03-03-2025 Hemoglobin (Bld) [Mass/Vol] 12.5 g/dL Low 13.0-16.5 [facility] Laboratory - Chemistry and C hemistry - challengeOrdered By: Javy Lynn on 03-03-2025 AST [Catalytic activity/Vol] 18 U/L <38 [facility] MCV (mean corpuscular volume ) determinationOrdered By: Javy Lynn on 03-03-2025 MCV (RBC) [Entitic vol] 91.9 fL 80-94 [facility] Mean corpuscular hemoglobin (MCH) determinationOrdered By: Javy Lynn on 03-03-2025 MCH (RBC) [Entitic mass] 30.6 pg 27.0-32.0 [facility] Mean corpuscular hemoglobin concentration (MCHC) determinationOrdered By: Javy Lynn on 03-03-2025 MCHC (RBC) [Mass/Vol] 33.2 g/dL 32-36 [facility] Mean platelet volume determi nationOrdered By: Javy Lynn on 03-03-2025 Platelet mean volume (Bld) [Entitic vol] 11.1 fL 6.2-12.0 [facility] Platelet countOrdered By: Manzanares on 03-03-2025 Platelets (Bld) [#/Vol] 163 10*3/uL 150-450 [facility] Potassium measurement (mass/ volume)Ordered By: Javy Lynn on 03-03-2025 Potassium (Unsp spec) [Mass/Vol] 5.1 mmol/L 3.3-5.1 [facility] RBC Auto (Bld) [#/Vol]Ordere d By: Javy Lynn on 03-03-2025 RBC (Bld) [#/Vol] 4.09 10*6/uL Low 4.6-6.2 [facility] Serum creatinine measurement (mass/volume)Ordered By: Javy Lynn on 03-03-2025 Creatinine [Mass/Vol] 1.08 mg/dL 0.70-1.20 [facility] Serum globulin measurementOr dered By: Javy Lynn on 03-03-2025 Globulin (S) [Mass/Vol] 3.2 g/dL 2.2-4.2 [facility] Serum glucose measurement (m ass/volume)Ordered By: Javy Lynn on 03-03-2025 Glucose [Mass/Vol] 162 mg/dL High 70-99 [facility] Serum or plasma alanine romano otransferase (ALT) measurementOrdered By: Javy Lynn on 03-03-2025 ALT [Catalytic activity/Vol] 12 U/L <47 [facility] Serum or plasma albumin saud urement (mass/volume)Ordered By: Javy Lynn on 03-03-2025 Albumin [Mass/Vol] 3.7 g/dL 3.4-4.8 [facility] Serum or plasma albumin/glob ulin mass ratioOrdered By: Javy Lynn 03-03-2025 Albumin/Globulin [Mass ratio] 1.2 {ratio} 0.9-2.4 [facility] Serum or plasma alkaline wiliam sphatase measurementOrdered By: Javy Lynn on 03-03-2025 ALP [Catalytic activity/Vol] 133 U/L High 40-129 [facility] Serum or plasma calcium saud urement (mass/volume)Ordered By: Javy Lynn 03-03-2025 Calcium [Mass/Vol] 9.8 mg/dL 7.6-11.0 [facility] Serum or plasma urea nitroge n measurement (mass/volume)Ordered By: Javy Lynn on 03-03-2025 Urea nitrogen [Mass/Vol] 27 mg/dL High 4-19 [facility] Serum or plasma valproate me asurement (mass/volume)Ordered By: Javy Lynn on 03-03-2025 Valproate [Mass/Vol] 19 ug/mL Low 50-100 [facility] Comment on above: Valproic Acid concen trations >100 ug/mL are potentially toxic. Sodium levelOrdered By: Javy Lynn on 03-03-2025 Sodium [Moles/Vol] 138 mmol/L 133-145 [facility] Total proteinOrdered By: Sunitha Lynn on 03-03-2025 Protein [Mass/Vol] 6.8 g/dL 5.9-8.4 [facility] Valproic Acid (Depakene) Lev angel 03-03-2025 VALPROIC ACID 19 ug/mL Low 50-100 [facility] Comment on above: Result Comment: Valp roic Acid concentrations >100 ug/mL are potentially toxic. Performed By: #### M 100.2200, L400.2010, L500.2500, L100.0500 #### [facility] [address] [place], [place], [id number] White blood cell (WBC) count Ordered By: Javy Lynn on 03-03-2025 WBC (Bld) [#/Vol] 7.4 10*3/uL 4.4-11.0 [facility] Hemoglobin A1con 03-02-2025 HbA1c (Bld) [Mass fraction] 6.9 % High <=5.6 [facility] Comment on above: Order Comment: 206-2 Result Comment: Norm al < 5.7 % Prediabetic 5.7 - 6.4 % Diabetic >or= 6.5 % Please note range changes. Performed By: #### M 100.2200, L400.2010, L500.2500, L100.0500 #### [facility] [address] [place], [place], [address] Hemoglobin A1c percentageOrd ered By: Javy Lynn on 03-02-2025 HbA1c (Bld) [Mass fraction] 6.9 % High <5.7 [facility] Comment on above: Normal < 5.7 % Predi abetic 5.7 - 6.4 % Diabetic >or= 6.5 % Please note range changes. Hemoglobin A1con 02-17-2025 HbA1c (Bld) [Mass fraction] 6.9 % High <=5.6 [facility] Comment on above: Order Comment: CLEAN CATCH Result Comment: Norm al < 5.7 % Prediabetic 5.7 - 6.4 % Diabetic >or= 6.5 % Please note range changes. Performed By: #### M 100.2199, L4, L500.2500, L100.0500 #### [facility] [address] [place], [place], [id number] Hemoglobin A1c percentageOrd ered By: Javy Lynn on 02-17-2025 HbA1c (Bld) [Mass fraction] 6.9 % High <5.7 [facility] Comment on above: Normal < 5.7 % Predi abetic 5.7 - 6.4 % Diabetic >or= 6.5 % Please note range changes. Urine Cultureon 02-15-2025 [facility] Enterococcus faecalis [place] Count 11,000-25,000 Enterococcus faecalis: REACTION Ampicillin Islt PAVEL <=2 Ciprofloxacin Islt PAVEL <=0.5 S Gentamicin Synergy Susc Islt SYN-S S levoFLOXacin Islt PAVEL 1 S Linezolid Islt PAVEL 2 S Nitrofurantoin Islt PAVEL <=16 S Streptomycin High Pot Susc Islt SYN-S S Tetracycline Islt PAVEL >=16 R Vancomycin Islt PAVEL 1 S Normal [facility] Comment on above: Performed By: #### M 100, , L500.2499, L100.0500 #### [facility] [address] [place], [address] Urinalysis, Completeon 02-13 RBC 0-5 SEEN Normal 0-5 [facility] Comment on above: Order Comment: 206.2 Performed By: #### M 100.220, L4, L500.2500, L100.0500 #### [facility] [address] [place], [address] WBC 10-25 SEEN Normal 0-5 [facility] Comment on above: Order Comment: 206.2 Performed By: #### M 100.220, L4, L500.2500, L100.0500 #### [facility] [address] [place], [address] BACTERIA 0 SEEN Normal None Seen [facility] Comment on above: Order Comment: 206.2 Performed By: #### M 100.2199, , L500.2500, L100.0500 #### [facility] [address] [place], [address] EPI,SQUAMOUS 0 SEEN Normal 0-5 [facility] Comment on above: Order Comment: 206.2 Performed By: #### M 100.2199, , L500.2500, L100.0500 #### [facility] [address] [place], [address] Mucus Ql (Urine sed) 0 SEEN Normal [facility] Comment on above: Order Comment: 206.2 Performed By: #### M 100.2199, , L500.2500, L100.0500 #### [facility] [address] [place], [address] Anion gap in Serum or Plasma Ordered By: Javy Lynn on 02-12-2025 Anion gap [Moles/Vol] 10 mmol/L 5-15 [facility] BUN/creatinine ratioOrdered By: Javy Lynn on 02-12-2025 Urea nitrogen/Creatinine [Mass ratio] 27.2 mg/mg High 10-20 [facility] Basic Metabolic Profile (BMP )on 02-12-2025 BUN/CRE 27.2 RATIO High -20 [facility] Comment on above: Order Comment: 206-2 Performed By: #### M 100.220, L4, L500.2500, L100.0500 #### [facility] [address] [place], [address] Calcium [Mass/Vol] 9.0 mg/dL Normal 7.6-11.0 [facility] Comment on above: Order Comment: 206-2 Performed By: #### M 100.2199, L4, L500.2500, L100.0500 #### [facility] [address] [place], [address] Chloride [Moles/Vol] 103 mmol/L Normal 98-108 [facility] Comment on above: Order Comment: 206-2 Performed By: #### M 100.2199, L4, L500.2500, L100.0500 #### [facility] [address] [place], [address] CO2 [Moles/Vol] 26.1 mmol/L Normal 21.0-32.0 [facility] Comment on above: Order Comment: 206-2 Performed By: #### Alvaro 100.2199, , L500.2500, L100.0500 #### [facility] [address] [place], [address] Creatinine [Mass/Vol] 1.25 mg/dL High 0.70-1.20 [facility] Comment on above: Order Comment: 206-2 Performed By: #### M 100.2199, , L500.2500, L100.0500 #### [facility] [address] [place], [address] GAP 10 Normal 5-15 [facility] Comment on above: Order Comment: 206-2 Performed By: #### M 100.2199, L4, L500.2500, L100.0500 #### [facility] [address] [place], [address] GFR/1.73 sq M.predicted among non-blacks MDRD (S/P/Bld) [Vol rate/Area] 55 mL/min/{1.73_m2} Low >60 [facility] Comment on above: Order Comment: Result Comment: mL/m in/1.73m2 CKD-EPI Creatinine Equation (2020) Performed By: #### M 100.2199, L4, L500.2500, L100.0500 #### [facility] [address] [place], [address] Glucose [Mass/Vol] 154 mg/dL High 70-99 [facility] Comment on above: Order Comment: -2 Performed By: #### M 100.2199, L4, L500.2500, L100.0500 #### [facility] [address] [place], [address] Potassium [Moles/Vol] 4.4 mmol/L Normal 3.3-5.1 [facility] Comment on above: Order Comment: -2 Performed By: #### M .2199, , L500.2500, L100.0500 #### [facility] [address] [place], [address] Sodium [Moles/Vol] 139 mmol/L Normal 133-145 [facility] Comment on above: Order Comment: -2 Performed By: #### M 100.2199, , L500.2500, L100.0500 #### [facility] [address] [place], [address] Urea nitrogen [Mass/Vol] 34 mg/dL High 4-19 [facility] Comment on above: Order Comment: -2 Performed By: #### M 100.2199, L4, L500.2500, L100.0500 #### [facility] [address] [place], [address] CBC-Complete Blood Cnt No Di ffon 02-12-2025 Erythrocyte distribution width (RBC) [Ratio] 13.2 % Normal 11.6-14.6 [facility] Comment on above: Order Comment: CLEAN CATCH Performed By: #### M 100.2199, L4, L500.2500, L100.0500 #### [facility] [address] [place], [address] Hematocrit (Bld) [Volume fraction] 32.8 % Low 40-54 [facility] Comment on above: Order Comment: CLEAN CATCH Performed By: #### M 100.2199, , L500.2500, L100.0500 #### [facility] [address] [place], [address] Hemoglobin (Bld) [Mass/Vol] 10.9 g/dL Low 13.0-16.5 [facility] Comment on above: Order Comment: CLEAN CATCH Performed By: #### M 100.2199, , L500.2500, L100.0500 #### [facility] [address] [place], [address] MCH (RBC) [Entitic mass] 30.6 pg Normal 27.0-32.0 [facility] Comment on above: Order Comment: CLEAN CATCH Performed By: #### M .2199, , L500.2500, L100.0500 #### [facility] [address] [place], [address] MCHC (RBC) [Mass/Vol] 33.2 g/dL Normal 32-36 [facility] Comment on above: Order Comment: CLEAN CATCH Performed By: #### M 100.2199, , L500.2500, L100.0500 #### [facility] [address] [place], [address] MCV (RBC) [Entitic vol] 92.1 fL Normal 80-94 [facility] Comment on above: Order Comment: CLEAN CATCH Performed By: #### M 100.2199, , L500.2500, L100.0500 #### [facility] [address] [place], [address] Platelet mean volume (Bld) [Entitic vol] 11.7 fL Normal 6.2-12.0 [facility] Comment on above: Order Comment: CLEAN CATCH Performed By: #### M 100.2200, L400.2010, L500.2500, L100.0500 #### [facility] [address] [place], [address] Platelets (Bld) [#/Vol] 142 10*3/uL Low 150-450 [facility] Comment on above: Order Comment: CLEAN CATCH Performed By: #### M 100.2199, L4.2010, L500.2500, L100.0500 #### [facility] [address] [place], [address] RBC (Bld) [#/Vol] 3.56 10*6/uL Low 4.6-6.2 [facility] Comment on above: Order Comment: CLEAN CATCH Performed By: #### M 100.2199, L4.2010, L500.2500, L100.0500 #### [facility] [address] [place], [address] RDW SD 44.4 fl High 35.1-43.9 [facility] Comment on above: Order Comment: CLEAN CATCH Performed By: #### M 100.2199, L4.2010, L500.2500, L100.0500 #### [facility] [address] [place], [address] WBC (Bld) [#/Vol] 5.7 10*3/uL Normal 4.4-11.0 [facility] Comment on above: Order Comment: CLEAN CATCH Performed By: #### M 100.2200, L400.2010, L500.2500, L100.0500 #### [facility] [address] [place], [address] Carbon dioxide, total [Moles /volume] in Central venous bloodOrdered By: Javy Lynn on 02-12-2025 CO2 [Moles/Vol] 26.1 mmol/L 21.0-32.0 [facility] Chloride assayOrdered By: Manzanares on 02-12-2025 Chloride [Moles/Vol] 103 mmol/L 98-[address] [facility] Erythrocyte distribution wid th ratioOrdered By: Javy Lynn on 02-12-2025 Erythrocyte distribution width (RBC) [Ratio] 13.2 % 11.6-14.6 [facility] Erythrocyte distribution wid th standard deviationOrdered By: Javy Lynn on 02-12-2025 Erythrocyte distribution width (RBC) [Ratio] 44.4 fl High 35.1-43.9 [facility] Glomerular filtration rate ( GFR) estimation/1.73 sq m using serum, plasma, or whole bOrdered By: Javy Lynn on 02-12-2025 GFR/1.73 sq M.predicted among non-blacks MDRD (S/P/Bld) [Vol rate/Area] 55 mL/min/{1.73_m2} Low >60 [facility] Comment on above: mL/min/1.73m2 CKD-EP I Creatinine Equation (2020) Hematocrit Auto (Bld) [Volum e fraction]Ordered By: Javy Lynn on 02-12-2025 Hematocrit (Bld) [Volume fraction] 32.8 % Low 40-54 [facility] Hemoglobin measurementOrdere d By: Javy Lynn on 02-12-2025 Hemoglobin (Bld) [Mass/Vol] 10.9 g/dL Low 13.0-16.5 [facility] MCV (mean corpuscular volume ) determinationOrdered By: Javy Lynn on 02-12-2025 MCV (RBC) [Entitic vol] 92.1 fL 80-94 [facility] Mean corpuscular hemoglobin (MCH) determinationOrdered By: Javy Lynn on 02-12-2025 MCH (RBC) [Entitic mass] 30.6 pg 27.0-32.0 [facility] Mean corpuscular hemoglobin concentration (MCHC) determinationOrdered By: Javy Lynn on 02-12-2025 MCHC (RBC) [Mass/Vol] 33.2 g/dL 32-36 [facility] Mean platelet volume determi nationOrdered By: Javy Lynn on 02-12-2025 Platelet mean volume (Bld) [Entitic vol] 11.7 fL 6.2-12.0 [facility] Platelet countOrdered By: Manzanares on 02-12-2025 Platelets (Bld) [#/Vol] 142 10*3/uL Low 150-450 [facility] Potassium measurement (mass/ volume)Ordered By: Javy Lynn on 02-12-2025 Potassium (Unsp spec) [Mass/Vol] 4.4 mmol/L 3.3-5.1 [facility] RBC Auto (Bld) [#/Vol]Ordere d By: Javy Lynn on 02-12-2025 RBC (Bld) [#/Vol] 3.56 10*6/uL Low 4.6-6.2 [facility] Serum creatinine measurement (mass/volume)Ordered By: Javy Lynn on 02-12-2025 Creatinine [Mass/Vol] 1.25 mg/dL High 0.70-1.20 [facility] Serum glucose measurement (m ass/volume)Ordered By: Javy Lynn on 02-12-2025 Glucose [Mass/Vol] 154 mg/dL High 70-99 [facility] Serum or plasma calcium saud urement (mass/volume)Ordered By: Javy Lynn on 02-12-2025 Calcium [Mass/Vol] 9.0 mg/dL 7.6-11.0 [facility] Serum or plasma urea nitroge n measurement (mass/volume)Ordered By: Javy Lynn on 02-12-2025 Urea nitrogen [Mass/Vol] 34 mg/dL High 4-19 [facility] Sodium levelOrdered By: Javy Lynn on 02-12-2025 Sodium [Moles/Vol] 139 mmol/L 133-145 [facility] White blood cell (WBC) count Ordered By: Javy Lynn on 02-12-2025 WBC (Bld) [#/Vol] 5.7 10*3/uL 4.4-11.0 [facility] Bilirubin Test strip Ql (U)O rdered By: Javy Lynn on 02-11-2025 Bilirubin Ql (U) Negative Negative [facility] Ketones Test strip Ql (U)Ord ered By: Javy Lynn on 02-11-2025 Ketones Ql (U) Negative Negative [facility] Microscopic analysis of urin e for red blood cells (RBC)Ordered By: Javy Lynn on 02-11-2025 Microscopic analysis of urine for red blood cells (RBC) 0-5 SEEN /hpf 0-5 [facility] Mucus LM Ql (Urine sed)Order ed By: Javy Lynn on 02-11-2025 Mucus Ql (Urine sed) 0 SEEN /hpf [facility] Nitrite Test strip Ql (U)Ord ered By: Javy Lynn on 02-11-2025 Nitrite Ql (U) Negative Negative [facility] Protein Test strip Ql (U)Ord ered By: Javy Lynn on 02-11-2025 Protein Ql (U) 100 mg/dl High Negative [facility] Squamous epithelial cells de tection in urine sediment by light microscopyOrdered By: Javy Lynn on 02-11-2025 Epithelial cells.squamous LM Ql (Urine sed) 0 SEEN /hpf 0-5 [facility] Urine clarityOrdered By: Sunitha Lynn on 02-11-2025 Clarity (U) Sl. Cloudy Clear [facility] Urine color determinationOrd ered By: Javy Lynn on 02-11-2025 Color (U) Yellow Yellow [facility] Urine cultureOrdered By: Sunitha Lynn on 02-11-2025 Bacteria identified Cx Nom (U) Enterococcus faecalis Abnormal [facility] Urine glucose detectionOrder ed By: Javy Lynn on 02-11-2025 Glucose Ql (U) Normal mg/dl Normal [facility] Urine leukocyte esterase det ection by dipstickOrdered By: Javy Lynn on 02-11-2025 Leukocyte esterase Test strip Ql (U) 500 /ul High Negative [facility] Urine pHOrdered By: Javy gordon on 02-11-2025 pH (U) 6.0 [pH] 5.0 - 8.0 [facility] Urine sediment bacteria coun t by microscopy (number/high power field)Ordered By: Javy Lynn on 02-11-2025 Bacteria LM.HPF (Urine sed) [#/Area] 0 /[HPF] None Seen [facility] Urine specific gravity measu rementOrdered By: Javy Lynn on 02-11-2025 Specific gravity (U) [Rel density] 1.015 1.002-1.030 [facility] Urine urobilinogen measureme ntOrdered By: Javy Lynn on 02-11-2025 Urobilinogen Ql (U) Normal mg/dl Normal [facility] White blood cell countOrdere d By: Javy Lynn on 02-11-2025 White blood cell count 10-25 SEEN /hpf 0-5 [facility] Hemoglobin A1c percentageOrd ered By: Javy Lynn on 11-26-2024 HbA1c (Bld) [Mass fraction] 7.7 % High 3.8-5.6 [facility] Comment on above: Normal < 5.7 % Predi abetic 5.7 - 6.4 % Diabetic >or= 6.5 % Please note range changes. Order Comment: 206.2 Result Comment: Norm al < 5.7 % Prediabetic 5.7 - 6.4 % Diabetic >or= 6.5 % Please note range changes. Performed By: #### L 501.9985 #### [facility] [address] [place], [address] Basic Metabolic Profile (BMP )on 11-07-2024 BUN/CRE 21.4 RATIO High 10-20 [facility] Comment on above: Order Comment: CLEAN CATCH Performed By: #### M 100.2200, L400.2010, L500.2500, L100.0500 #### [facility] [address] [place], [address] CA,Total 9.5 mg/dL Normal 8.5-10.1 [facility] Comment on above: Order Comment: CLEAN CATCH Performed By: #### M 100.2200, L400.2010, L500.2500, L100.0500 #### [facility] [address] [place], [address] Chloride [Moles/Vol] 106 mmol/L Normal 98-107 [facility] Comment on above: Order Comment: CLEAN CATCH Performed By: #### M 100.2200, L4.2010, L500.2500, L100.0500 #### [facility] [address] [place], [address] CO2 [Moles/Vol] 27.0 mmol/L Normal 21.0-32.0 [facility] Comment on above: Order Comment: CLEAN CATCH Performed By: #### M 100.2199, L4, L500.2500, L100.0500 #### [facility] [address] [place], [address] Creatinine [Mass/Vol] 1.54 mg/dL High 0.70-1.30 [facility] Comment on above: Order Comment: CLEAN CATCH Result Comment: The validity of the calculated GFR GFRAA in patients over 70 years has not been determined. Clinical correlation is essential. Performed By: #### M 100.2199, , L500.2500, L100.0500 #### [facility] [address] [place], [address] EST GFR - AA 55 mL/min Low >60 [facility] Comment on above: Order Comment: CLEAN CATCH Result Comment: Afri can Hungarian GFR Calc Performed By: #### M 100.2199, , L500.2500, L100.0500 #### [facility] [address] [place], [address] GAP 6 Normal 5-15 [facility] Comment on above: Order Comment: CLEAN CATCH Performed By: #### M 100.220, L4.2010, L500.2500, L100.0500 #### [facility] [address] [place], [address] GFR/1.73 sq M.predicted among non-blacks MDRD (S/P/Bld) [Vol rate/Area] 45 mL/min/{1.73_m2} Low >60 [facility] Comment on above: Order Comment: CLEAN CATCH Result Comment: Non- GFR Calc Performed By: #### M , , L500.2500, L100.0500 #### [facility] [address] [place], [address] Glucose [Mass/Vol] 173 mg/dL High 74-106 [facility] Comment on above: Order Comment: CLEAN CATCH Result Comment: Fast ing Glucose result greater than or equal to 126 mg/dL suggests DIABETES MELLITUS per A.D.A. criteria. Performed By: #### M , , L500.2500, L100.0500 #### [facility] [address] [place], [address] Potassium [Moles/Vol] 4.7 mmol/L Normal 3.5-5.1 [facility] Comment on above: Order Comment: CLEAN CATCH Performed By: #### M , , L500.2500, L100.0500 #### [facility] [address] [place], [address] Sodium [Moles/Vol] 139 mmol/L Normal 136-145 [facility] Comment on above: Order Comment: CLEAN CATCH Performed By: #### M , , L500.2500, L100.0500 #### [facility] [address] [place], [address] Urea nitrogen [Mass/Vol] 33 mg/dL High 7-18 [facility] Comment on above: Order Comment: CLEAN CATCH Performed By: #### M , , L500.2500, L100.0500 #### [facility] [address] [place], [address] Blood urea nitrogen (BUN)/cr eatinine ratioOrdered By: Javy Lynn on 11-07-2024 Urea nitrogen/Creatinine [Mass ratio] 21.4 mg/mg High 10-20 [facility] CBC-Complete Blood Cnt No Di ffon 11-07-2024 Erythrocyte distribution width (RBC) [Ratio] 13.0 % Normal 11.6-14.6 [facility] Comment on above: Order Comment: 206.2 Performed By: #### M 100.2199, , L500.2500, L100.0500 #### [facility] [address] [place], [address] Hematocrit (Bld) [Volume fraction] 40.2 % Normal 40-54 [facility] Comment on above: Order Comment: 206.2 Performed By: #### M 100.2199, , L500.2500, L100.0500 #### [facility] [address] [place], [address] Hemoglobin (Bld) [Mass/Vol] 12.8 g/dL Low 13.0-16.5 [facility] Comment on above: Order Comment: 206.2 Performed By: #### M 100.2199, , L500.2500, L100.0500 #### [facility] [address] [place], [address] MCH (RBC) [Entitic mass] 29.5 pg Normal 27.0-32.0 [facility] Comment on above: Order Comment: 206.2 Performed By: #### M 100.2199, , L500.2500, L100.0500 #### [facility] [address] [place], [address] MCHC (RBC) [Mass/Vol] 31.8 g/dL Low 32-36 [facility] Comment on above: Order Comment: 206.2 Performed By: #### M .2199, , L500.2500, L100.0500 #### [facility] [address] [place], [address] MCV (RBC) [Entitic vol] 92.6 fL Normal 80-94 [facility] Comment on above: Order Comment: 206.2 Performed By: #### M 100.2200, L400.2010, L500.2500, L100.0500 #### [facility] [address] [place], [address] Platelet mean volume (Bld) [Entitic vol] 11.6 fL Normal 6.2-12.0 [facility] Comment on above: Order Comment: 206.2 Performed By: #### M 100.2199, , L500.2500, L100.0500 #### [facility] [address] [place], [address] Platelets (Bld) [#/Vol] 111 10*3/uL Low 150-450 [facility] Comment on above: Order Comment: 206.2 Performed By: #### M 100.2199, , L500.2500, L100.0500 #### [facility] [address] [place], [address] RBC (Bld) [#/Vol] 4.34 10*6/uL Low 4.6-6.2 [facility] Comment on above: Order Comment: 206.2 Performed By: #### M 100.2199, , L500.2500, L100.0500 #### [facility] [address] [place], [address] RDW SD 44.2 fl High 35.1-43.9 [facility] Comment on above: Order Comment: 206.2 Performed By: #### M 100.2200, L4, L500.2500, L100.0500 #### [facility] [address] [place], [address] WBC (Bld) [#/Vol] 5.6 10*3/uL Normal 4.4-11.0 [facility] Comment on above: Order Comment: 206.2 Performed By: #### M 100.2200, L400.2010, L500.2500, L100.0500 #### [facility] [address] [place], [address] Carbon dioxide measurementOr dered By: Javy Lynn on 11-07-2024 CO2 [Moles/Vol] 27.0 mmol/L 21.0-32.0 [facility] Chloride measurementOrdered By: Javy Lynn on 11-07-2024 Chloride [Moles/Vol] 106 mmol/L 98-107 [facility] Erythrocyte distribution wid th ratioOrdered By: Javy Lynn on 11-07-2024 Erythrocyte distribution width (RBC) [Ratio] 13.0 % 11.6-14.6 [facility] Erythrocyte distribution wid th standard deviationOrdered By: Javy Lynn on 11-07-2024 Erythrocyte distribution width (RBC) [Ratio] 44.2 fl High 35.1-43.9 [facility] Glomerular filtration rate ( GFR) estimationOrdered By: Javy Lynn on 11-07-2024 GFR/1.73 sq M.predicted among non-blacks MDRD (S/P/Bld) [Vol rate/Area] 45 mL/min/{1.73_m2} Low >60 [facility] Comment on above: Non- GFR Calc Glucose measurementOrdered B y: Javy Lynn on 11-07-2024 Glucose [Mass/Vol] 173 mg/dL High 74-106 [facility] Comment on above: Fasting Glucose resu lt greater than or equal to 126 mg/dL suggests DIABETES MELLITUS per A.D.A. criteria. Hematocrit Auto (Bld) [Volum e fraction]Ordered By: Javy Lynn on 11-07-2024 Hematocrit (Bld) [Volume fraction] 40.2 % 40-54 [facility] Hemoglobin measurementOrdere d By: Javy Lynn on 11-07-2024 Hemoglobin (Bld) [Mass/Vol] 12.8 g/dL Low 13.0-16.5 [facility] MCV (mean corpuscular volume ) determinationOrdered By: Javy Lynn on 11-07-2024 MCV (RBC) [Entitic vol] 92.6 fL 80-94 [facility] Mean corpuscular hemoglobin (MCH) determinationOrdered By: Javy Lynn on 11-07-2024 MCH (RBC) [Entitic mass] 29.5 pg 27.0-32.0 [facility] Mean corpuscular hemoglobin concentration (MCHC) determinationOrdered By: Javy Lynn on 11-07-2024 MCHC (RBC) [Mass/Vol] 31.8 g/dL Low 32-36 [facility] Mean platelet volume determi nationOrdered By: Javy Lynn on 11-07-2024 Platelet mean volume (Bld) [Entitic vol] 11.6 fL 6.2-12.0 [facility] Platelet countOrdered By: Manzanares on 11-07-2024 Platelets (Bld) [#/Vol] 111 10*3/uL Low 150-450 [facility] Potassium measurementOrdered By: Javy Lynn on 11-07-2024 Potassium [Moles/Vol] 4.7 mmol/L 3.5-5.1 [facility] RBC Auto (Bld) [#/Vol]Ordere d By: Javy Lynn on 11-07-2024 RBC (Bld) [#/Vol] 4.34 10*6/uL Low 4.6-6.2 [facility] Serum anion gap measurementO rdered By: Javy Lynn on 11-07-2024 Anion gap [Moles/Vol] 6 mmol/L 5-15 [facility] Serum or plasma calcium saud urement (mass/volume)Ordered By: Javy Lynn on 11-07-2024 Calcium [Mass/Vol] 9.5 mg/dL 8.5-10.1 [facility] Serum or plasma creatinine m easurement (mass/volume)Ordered By: Javy Lynn on 11-07-2024 Creatinine [Mass/Vol] 1.54 mg/dL High 0.70-1.30 [facility] Comment on above: The validity of the calculated GFR & GFRAA in patients over 70 years has not been determined. Clinical correlation is essential. Serum or plasma urea nitroge n measurement (mass/volume)Ordered By: Javy Lynn on 11-07-2024 Urea nitrogen [Mass/Vol] 33 mg/dL High 7-18 [facility] Sodium levelOrdered By: Javy Lynn on 11-07-2024 Sodium [Moles/Vol] 139 mmol/L 136-145 [facility] White blood cell (WBC) count Ordered By: Javy Lynn on 11-07-2024 WBC (Bld) [#/Vol] 5.6 10*3/uL 4.4-11.0 [facility] CBC-Complete Blood Cnt No Di ffon 10-07-2024 Erythrocyte distribution width (RBC) [Ratio] 12.9 % Normal 11.6-14.6 [facility] Comment on above: Order Comment: 206.2 Performed By: #### M , , L500.2500, L100.0500 #### [facility] [address] [place], [address] Hematocrit (Bld) [Volume fraction] 38.2 % Low 40-54 [facility] Comment on above: Order Comment: 206.2 Performed By: #### M 100.2199, , L500.2500, L100.0500 #### [facility] [address] [place], [address] Hemoglobin (Bld) [Mass/Vol] 12.2 g/dL Low 13.0-16.5 [facility] Comment on above: Order Comment: 206.2 Performed By: #### M 100.2199, L4, L500.2500, L100.0500 #### [facility] [address] [place], [address] MCH (RBC) [Entitic mass] 29.9 pg Normal 27.0-32.0 [facility] Comment on above: Order Comment: 206.2 Performed By: #### M 100.2199, , L500.2500, L100.0500 #### [facility] [address] [place], [address] MCHC (RBC) [Mass/Vol] 31.9 g/dL Low 32-36 [facility] Comment on above: Order Comment: 206.2 Performed By: #### M 100.2199, , L500.2500, L100.0500 #### [facility] [address] [place], [address] MCV (RBC) [Entitic vol] 93.6 fL Normal 80-94 [facility] Comment on above: Order Comment: 206.2 Performed By: #### M , , L500.2500, L100.0500 #### [facility] [address] [place], [address] Platelet mean volume (Bld) [Entitic vol] 11.6 fL Normal 6.2-12.0 [facility] Comment on above: Order Comment: 206.2 Performed By: #### M , , L500.2500, L100.0500 #### [facility] [address] [place], [address] Platelets (Bld) [#/Vol] 173 10*3/uL Normal 150-450 [facility] Comment on above: Order Comment: 206.2 Performed By: #### M , , L500.2500, L100.0500 #### [facility] [address] [place], [address] RBC (Bld) [#/Vol] 4.08 10*6/uL Low 4.6-6.2 [facility] Comment on above: Order Comment: 206.2 Performed By: #### M , , L500.2500, L100.0500 #### [facility] [address] [place], [address] RDW SD 44.7 fl High 35.1-43.9 [facility] Comment on above: Order Comment: 206.2 Performed By: #### M 100.2200, L400.2010, L500.2500, L100.0500 #### [facility] [address] [place], [address] WBC (Bld) [#/Vol] 3.9 10*3/uL Low 4.4-11.0 [facility] Comment on above: Order Comment: 206.2 Performed By: #### M .2199, , L500.2500, L100.0500 #### [facility] [address] [place], [address] Comprehensive Metabolic Prof [facility] 10-07-2024 Albumin [Mass/Vol] 2.8 g/dL Low 3.2-5.0 [facility] Comment on above: Order Comment: 206.2 Performed By: #### M 100.2199, , L500.2500, L100.0500 #### [facility] [address] [place], [address] Albumin/Globulin [Mass ratio] 0.8 {ratio} Low 0.9-2.4 [facility] Comment on above: Order Comment: 206.2 Performed By: #### M 100.220, L4, L500.2500, L100.0500 #### [facility] [address] [place], [address] ALK P 112 U/L Normal 45-117 [facility] Comment on above: Order Comment: 206.2 Performed By: #### M 100.2200, L400.2010, L500.2500, L100.0500 #### [facility] [address] [place], [address] ALT [Catalytic activity/Vol] 18 U/L Normal 16-61 [facility] Comment on above: Order Comment: .2 Performed By: #### M .2199, , L500.2500, L100.0500 #### [facility] [address] [place], [address] AST [Catalytic activity/Vol] 20 U/L Normal 15-37 [facility] Comment on above: Order Comment: 206.2 Result Comment: Slig ht Hemolysis, Result may be falsely increased. Performed By: #### M .2199, , L500.2500, L100.0500 #### [facility] [address] [place], [address] Bilirubin [Mass/Vol] 0.30 mg/dL Normal 0.20-1.00 [facility] Comment on above: Order Comment: .2 Result Comment: For patients on eltrombopag therapy, use of Dimension [place] TBIL is not recommended. Performed By: #### M .2199, , L500.2500, L100.0500 #### [facility] [address] [place], [address] BUN/CRE 31.9 RATIO High 10-20 [facility] Comment on above: Order Comment: .2 Performed By: #### M .2199, , L500.2500, L100.0500 #### [facility] [address] [place], [address] CA,Total 9.1 mg/dL Normal 8.5-10.1 [facility] Comment on above: Order Comment: .2 Performed By: #### M .2199, , L500.2500, L100.0500 #### [facility] [address] [place], [address] Chloride [Moles/Vol] 109 mmol/L High 98-107 [facility] Comment on above: Order Comment: .2 Performed By: #### M 100.2199, L4, L500.2500, L100.0500 #### [facility] [address] [place], [address] CO2 [Moles/Vol] 26.0 mmol/L Normal 21.0-32.0 [facility] Comment on above: Order Comment: .2 Performed By: #### M .2199, , L500.2500, L100.0500 #### [facility] [address] [place], [address] Creatinine [Mass/Vol] 1.19 mg/dL Normal 0.70-1.30 [facility] Comment on above: Order Comment: .2 Result Comment: The validity of the calculated GFR GFRAA in patients over 70 years has not been determined. Clinical correlation is essential. Performed By: #### M .2199, , L500.2500, L100.0500 #### [facility] [address] [place], [address] EST GFR - AA 74 mL/min Normal >60 [facility] Comment on above: Order Comment: .2 Result Comment: Afri can Hungarian GFR Calc Performed By: #### M .2199, , L500.2500, L100.0500 #### [facility] [address] [place], [address] GAP 5 Normal 5-15 [facility] Comment on above: Order Comment: .2 Performed By: #### M 100.2199, , L500.2500, L100.0500 #### [facility] [address] [place], [address] GFR/1.73 sq M.predicted among non-blacks MDRD (S/P/Bld) [Vol rate/Area] 61 mL/min/{1.73_m2} Normal >60 [facility] Comment on above: Order Comment: 206.2 Result Comment: Non- GFR Calc Performed By: #### M .2199, , L500.2500, L100.0500 #### [facility] [address] [place], [address] Globulin (S) [Mass/Vol] 3.7 g/dL Normal 2.2-4.2 [facility] Comment on above: Order Comment: 206.2 Performed By: #### M .2199, , L500.2500, L100.0500 #### [facility] [address] [place], [address] Glucose [Mass/Vol] 89 mg/dL Normal 74-106 [facility] Comment on above: Order Comment: .2 Performed By: #### M , , L500.2500, L100.0500 #### [facility] [address] [place], [address] Potassium [Moles/Vol] 4.4 mmol/L Normal 3.5-5.1 [facility] Comment on above: Order Comment: .2 Result Comment: Slig ht Hemolysis, Result may be falsely increased. Performed By: #### M .2199, , L500.2500, L100.0500 #### [facility] [address] [place], [address] Sodium [Moles/Vol] 139 mmol/L Normal 136-145 [facility] Comment on above: Order Comment: 206.2 Performed By: #### M , , L500.2500, L100.0500 #### [facility] [address] [place], [address] T PROT 6.5 g/dL Normal 6.4-8.2 [facility] Comment on above: Order Comment: 206.2 Performed By: #### M 100.2200, L4, L500.2500, L100.0500 #### [facility] [address] [place], [address] Urea nitrogen [Mass/Vol] 38 mg/dL High 7-18 [facility] Comment on above: Order Comment: 206.2 Performed By: #### M 100.2199, , L500.2500, L100.0500 #### [facility] [address] [place], [address] Urine Cultureon 09-21-2024 URC Organism is too fastidious for routine susceptibility studies. Urine Culture Urine Culture Urine Culture Aerococcus sanguinicola [place] Count >100,000 Normal [facility] Comment on above: Performed By: #### M 100.2199, L400.0001 #### [facility] [address] [place], [address] CBC-Complete Blood Cnt No Di ffon 09-17-2024 Erythrocyte distribution width (RBC) [Ratio] 13.2 % Normal 11.6-14.6 [facility] Comment on above: Order Comment: 206.2 Performed By: #### M 100.2199, , L500.2500, L100.0500 #### [facility] [address] [place], [address] Hematocrit (Bld) [Volume fraction] 36.0 % Low 40-54 [facility] Comment on above: Order Comment: 206.2 Performed By: #### M 100.2200, L4, L500.2500, L100.0500 #### [facility] [address] [place], [address] Hemoglobin (Bld) [Mass/Vol] 12.0 g/dL Low 13.0-16.5 [facility] Comment on above: Order Comment: 206.2 Performed By: #### M 100.220, , L500.2500, L100.0500 #### [facility] [address] [place], [address] MCH (RBC) [Entitic mass] 30.5 pg Normal 27.0-32.0 [facility] Comment on above: Order Comment: 206.2 Performed By: #### M 100.2199, , L500.2500, L100.0500 #### [facility] [address] [place], [address] MCHC (RBC) [Mass/Vol] 33.3 g/dL Normal 32-36 [facility] Comment on above: Order Comment: 206.2 Performed By: #### M 100.2199, , L500.2500, L100.0500 #### [facility] [address] [place], [address] MCV (RBC) [Entitic vol] 91.6 fL Normal 80-94 [facility] Comment on above: Order Comment: 206.2 Performed By: #### M 100.2199, , L500.2500, L100.0500 #### [facility] [address] [place], [address] Platelet mean volume (Bld) [Entitic vol] 12.0 fL Normal 6.2-12.0 [facility] Comment on above: Order Comment: 206.2 Performed By: #### M 100.2199, , L500.2500, L100.0500 #### [facility] [address] [place], [address] Platelets (Bld) [#/Vol] 119 10*3/uL Low 150-450 [facility] Comment on above: Order Comment: 206.2 Performed By: #### M 100.2199, , L500.2500, L100.0500 #### [facility] [address] [place], [address] RBC (Bld) [#/Vol] 3.93 10*6/uL Low 4.6-6.2 [facility] Comment on above: Order Comment: 206.2 Performed By: #### M 100.2200, L4, L500.2500, L100.0500 #### [facility] [address] [place], [address] RDW SD 44.2 fl High 35.1-43.9 [facility] Comment on above: Order Comment: 206.2 Performed By: #### M 100.2199, L4, L500.2500, L100.0500 #### [facility] [address] [place], [address] WBC (Bld) [#/Vol] 14.0 10*3/uL High 4.4-11.0 [facility] Comment on above: Order Comment: 206.2 Performed By: #### M .2199, , L500.2500, L100.0500 #### [facility] [address] [place], [address] Comprehensive Metabolic Prof [facility] 09-17-2024 Albumin [Mass/Vol] 2.9 g/dL Low 3.2-5.0 [facility] Comment on above: Order Comment: 206.2 Performed By: #### M .2199, , L500.2500, L100.0500 #### [facility] [address] [place], [address] Albumin/Globulin [Mass ratio] 0.8 {ratio} Low 0.9-2.4 [facility] Comment on above: Order Comment: 206.2 Performed By: #### M 100.2200, L4, L500.2500, L100.0500 #### [facility] [address] [place], [address] ALK P 97 U/L Normal 45-117 [facility] Comment on above: Order Comment: 206.2 Performed By: #### M 100.2200, , L500.2500, L100.0500 #### [facility] [address] [place], [address] ALT [Catalytic activity/Vol] 24 U/L Normal 16-61 [facility] Comment on above: Order Comment: 206.2 Performed By: #### M 100.220, , L500.2500, L100.0500 #### [facility] [address] [place], [address] AST [Catalytic activity/Vol] 17 U/L Normal 15-37 [facility] Comment on above: Order Comment: 206.2 Performed By: #### M 100.2199, , L500.2500, L100.0500 #### [facility] [address] [place], [address] Bilirubin [Mass/Vol] 0.60 mg/dL Normal 0.20-1.00 [facility] Comment on above: Order Comment: 206.2 Result Comment: For patients on eltrombopag therapy, use of Dimension [place] TBIL is not recommended. Performed By: #### M 100.2199, , L500.2500, L100.0500 #### [facility] [address] [place], [address] BUN/CRE 26.8 RATIO High 10-20 [facility] Comment on above: Order Comment: 206.2 Performed By: #### M 100.2199, , L500.2500, L100.0500 #### [facility] [address] [place], [address] CA,Total 9.0 mg/dL Normal 8.5-10.1 [facility] Comment on above: Order Comment: 206.2 Performed By: #### M 100.2199, , L500.2500, L100.0500 #### [facility] [address] [place], [address] Chloride [Moles/Vol] 104 mmol/L Normal 98-107 [facility] Comment on above: Order Comment: .2 Performed By: #### M 100.2199, , L500.2500, L100.0500 #### [facility] [address] [place], [address] CO2 [Moles/Vol] 29.0 mmol/L Normal 21.0-32.0 [facility] Comment on above: Order Comment: .2 Performed By: #### M , , L500.2500, L100.0500 #### [facility] [address] [place], [address] Creatinine [Mass/Vol] 1.53 mg/dL High 0.70-1.30 [facility] Comment on above: Order Comment: .2 Result Comment: The validity of the calculated GFR GFRAA in patients over 70 years has not been determined. Clinical correlation is essential. Performed By: #### M , , L500.2500, L100.0500 #### [facility] [address] [place], [address] EST GFR - AA 55 mL/min Low >60 [facility] Comment on above: Order Comment: .2 Result Comment: Afri can Hungarian GFR Calc Performed By: #### M 100.2199, , L500.2500, L100.0500 #### [facility] [address] [place], [address] GAP 5 Normal 5-15 [facility] Comment on above: Order Comment: .2 Performed By: #### M 100.2199, , L500.2500, L100.0500 #### [facility] [address] [place], [address] GFR/1.73 sq M.predicted among non-blacks MDRD (S/P/Bld) [Vol rate/Area] 46 mL/min/{1.73_m2} Low >60 [facility] Comment on above: Order Comment: 206.2 Result Comment: Non- GFR Calc Performed By: #### M , , L500.2500, L100.0500 #### [facility] [address] [place], [address] Globulin (S) [Mass/Vol] 3.5 g/dL Normal 2.2-4.2 [facility] Comment on above: Order Comment: .2 Performed By: #### M , , L500.2500, L100.0500 #### [facility] [address] [place], [address] Glucose [Mass/Vol] 172 mg/dL High 74-106 [facility] Comment on above: Order Comment: .2 Result Comment: Fast ing Glucose result greater than or equal to 126 mg/dL suggests DIABETES MELLITUS per A.D.A. criteria. Performed By: #### M , , L500.2500, L100.0500 #### [facility] [address] [place], [address] Potassium [Moles/Vol] 4.4 mmol/L Normal 3.5-5.1 [facility] Comment on above: Order Comment: .2 Performed By: #### M 100, , L500.2500, L100.0500 #### [facility] [address] [place], [address] Sodium [Moles/Vol] 138 mmol/L Normal 136-145 [facility] Comment on above: Order Comment: .2 Performed By: #### M , , L500.2500, L100.0500 #### [facility] [address] [place], [address] T PROT 6.4 g/dL Normal 6.4-8.2 [facility] Comment on above: Order Comment: 206.2 Performed By: #### M 100.220, L4, L500.2500, L100.0500 #### [facility] [address] [place], [address] Urea nitrogen [Mass/Vol] 41 mg/dL High 7-18 [facility] Comment on above: Order Comment: 206.2 Performed By: #### M , , L500.2500, L100.0500 #### [facility] [address] [place], [address] Urinalysis, Completeon 09-17 RBC > 100 SEEN Normal 0-5 [facility] Comment on above: Order Comment: COLOR OF URINE MAY AFFECT DIPSTICK RESULTS. SC CATHETER SPECIMEN Result Comment: Micr oscopic field is filled. Other elements may be obscured. Performed By: #### M 100.2199, L400.0001 #### [facility] [address] [place], [address] WBC >100 SEEN Normal 0-5 [facility] Comment on above: Order Comment: COLOR OF URINE MAY AFFECT DIPSTICK RESULTS. SC CATHETER SPECIMEN Result Comment: Micr oscopic field is filled. Other elements may be obscured. Performed By: #### M 100.2200, L400.0001 #### [facility] [address] [place], [address] BACTERIA 0 SEEN Normal None Seen [facility] Comment on above: Order Comment: COLOR OF URINE MAY AFFECT DIPSTICK RESULTS. SC CATHETER SPECIMEN Performed By: #### M 100.2200, L400.0001 #### [facility] [address] [place], [address] EPI,SQUAMOUS 0 SEEN Normal 0-5 [facility] Comment on above: Order Comment: COLOR OF URINE MAY AFFECT DIPSTICK RESULTS. SC CATHETER SPECIMEN Performed By: #### M 100.2200, L400.0001 #### [facility] [address] [place], [address] Mucus Ql (Urine sed) 0 SEEN Normal [facility] Comment on above: Order Comment: COLOR OF URINE MAY AFFECT DIPSTICK RESULTS. SC CATHETER SPECIMEN Performed By: #### M 100.2200, L400.0001 #### [facility] [address] [place], [address] Valproic Acid (Depakene) Lev angel 09-17-2024 VALPROIC ACID 10 ug/mL Low 50-100 [facility] Comment on above: Order Comment: .2 Performed By: #### M 100.2200, L400.2010, L500.2500, L100.0500 #### [facility] [address] [place], [address] CBC-Complete Blood Cnt No Di ffon 09-16-2024 HCT Normal 40-54 [facility] Comment on above: Order Comment: .2 Result Comment: UTO X1 Performed By: #### L 100.0500, L500.4050 #### [facility] [address] [place], [address] HGB Normal 13.0-16.5 [facility] Comment on above: Order Comment: .2 Result Comment: UTO X1 Performed By: #### L 100.0500, L500.4050 #### [facility] [address] [place], [address] MCH Normal 27.0-32.0 [facility] Comment on above: Order Comment: . Result Comment: UTO X1 Performed By: #### L 100.0500, L500.4050 #### [facility] [address] [place], [address] MCHC Normal 32-36 [facility] Comment on above: Order Comment: Result Comment: UTO X1 Performed By: #### L 100.0500, L500.4050 #### [facility] [address] [place], [address] MCV Normal 80-94 [facility] Comment on above: Order Comment: Result Comment: UTO X1 Performed By: #### L 100.0500, L500.4050 #### [facility] [address] [place], [address] PLT Normal 150-450 [facility] Comment on above: Order Comment: Result Comment: UTO X1 Performed By: #### L 100.0500, L500.4050 #### [facility] [address] [place], [address] RBC Normal 4.6-6.2 [facility] Comment on above: Order Comment: Result Comment: UTO X1 Performed By: #### L 100.0500, L500.4050 #### [facility] [address] [place], [address] RDW CV Normal 11.6-14.6 [facility] Comment on above: Order Comment: Result Comment: UTO X1 Performed By: #### L 100.0500, L500.4050 #### [facility] [address] [place], [address] RDW SD Normal 35.1-43.9 [facility] Comment on above: Order Comment: Result Comment: UTO X1 Performed By: #### L 100.0500, L500.4050 #### [facility] [address] [place], [address] WBC Normal 4.4-11.0 [facility] Comment on above: Order Comment: Result Comment: UTO X1 Performed By: #### L 100.0500, L500.4050 #### [facility] [address] [place], [address] Comprehensive Metabolic Prof dione 09-16-2024 ALB Normal 3.2-5.0 [facility] Comment on above: Order Comment: Result Comment: UTO X1 Performed By: #### L 100.0500, L500.4050 #### [facility] [address] [place], [address] ALK P Normal 45-117 [facility] Comment on above: Order Comment: Result Comment: UTO X1 Performed By: #### L 100.0500, L500.4050 #### [facility] [address] [place], [address] ALT Normal 16-61 [facility] Comment on above: Order Comment: Result Comment: UTO X1 Performed By: #### L 100.0500, L500.4050 #### [facility] [address] [place], [address] AST Normal 15-37 [facility] Comment on above: Order Comment: . Result Comment: UTO X1 Performed By: #### L 100.0500, L500.4050 #### [facility] [address] [place], [address] BUN Normal 7-18 [facility] Comment on above: Order Comment: . Result Comment: UTO X1 Performed By: #### L 100.0500, L500.4050 #### [facility] [address] [place], [address] BUN/CRE Normal 10-20 [facility] Comment on above: Order Comment: Result Comment: UTO X1 Performed By: #### L 100.0500, L500.4050 #### [facility] [address] [place], [address] CA,Total Normal 8.5-10.1 [facility] Comment on above: Order Comment: Result Comment: UTO X1 Performed By: #### L 100.0500, L500.4050 #### [facility] [address] [place], [address] CL Normal 98-107 [facility] Comment on above: Order Comment: Result Comment: UTO X1 Performed By: #### L 100.0500, L500.4050 #### [facility] [address] [place], [address] CO2 Normal 21.0-32.0 [facility] Comment on above: Order Comment: Result Comment: UTO X1 Performed By: #### L 100.0500, L500.4050 #### [facility] [address] [place], [address] CREAT,SERUM Normal 0.70-1.30 [facility] Comment on above: Order Comment: Result Comment: UTO X1 Performed By: #### L 100.0500, L500.4050 #### [facility] [address] [place], [address] EST GFR Normal >60 [facility] Comment on above: Order Comment: Result Comment: UTO X1 Performed By: #### L 100.0500, L500.4050 #### [facility] [address] [place], [address] EST GFR - AA Normal >60 [facility] Comment on above: Order Comment: Result Comment: UTO X1 Performed By: #### L 100.0500, L500.4050 #### [facility] [address] [place], [address] GAP Normal 5-15 [facility] Comment on above: Order Comment: Result Comment: UTO X1 Performed By: #### L 100.0500, L500.4050 #### [facility] [address] [place], [address] GLU Normal 74-106 [facility] Comment on above: Order Comment: Result Comment: UTO X1 Performed By: #### L 100.0500, L500.4050 #### [facility] [address] [place], [address] Potassium Normal 3.5-5.1 [facility] Comment on above: Order Comment: Result Comment: UTO X1 Performed By: #### L 100.0500, L500.4050 #### [facility] [address] [place], [address] T BILI Normal 0.20-1.00 [facility] Comment on above: Order Comment: Result Comment: UTO X1 Performed By: #### L 100.0500, L500.4050 #### [facility] [address] [place], [address] T PROT Normal 6.4-8.2 [facility] Comment on above: Order Comment: Result Comment: UTO X1 Performed By: #### L 100.0500, L500.4050 #### [facility] [address] [place], [address] Comprehensive Metabolic Profil Normal 136-145 [facility] Comment on above: Order Comment: Result Comment: UTO X1 Performed By: #### L 100.0500, L500.4050 #### [facility] [address] [place], [address] Hemoglobin A1con 09-02-2024 HbA1c (Bld) [Mass fraction] 8.6 % High 3.8-5.6 [facility] Comment on above: Order Comment: Result Comment: Norm al < 5.7 % Prediabetic 5.7 - 6.4 % Diabetic >or= 6.5 % Please note range changes. Performed By: #### L 501.9985 #### [facility] [address] [place], [address] Urine Cultureon 08-29-2024 URC Enterococcus faecalis [place] Count 80,000-100,000 Enterococcus faecalis: REACTION Ampicillin Islt PAVEL <=2 Ciprofloxacin Islt PAVEL <=0.5 S levoFLOXacin Islt PAVEL 2 S Linezolid Islt PAVEL 2 S Nitrofurantoin Islt PAVEL 32 S Tetracycline Islt PAVEL >=16 R Vancomycin Islt PAVEL 1 S Normal [facility] Comment on above: Performed By: #### M 100.2199, , L500.2500, L100.0500 #### [facility] [address] [place], [address] Basic Metabolic Profile (BMP )on 08-27-2024 BUN/CRE 28.1 RATIO High 10-20 [facility] Comment on above: Order Comment: 206.2 Performed By: #### M 100.2199, , L500.2500, L100.0500 #### [facility] [address] [place], [address] CA,Total 9.1 mg/dL Normal 8.5-10.1 [facility] Comment on above: Order Comment: 206.2 Performed By: #### M 100, , L500.2500, L100.0500 #### [facility] [address] [place], [address] Chloride [Moles/Vol] 104 mmol/L Normal 98-107 [facility] Comment on above: Order Comment: 206.2 Performed By: #### M 100.220, L4, L500.2500, L100.0500 #### [facility] [address] [place], [address] CO2 [Moles/Vol] 29.0 mmol/L Normal 21.0-32.0 [facility] Comment on above: Order Comment: . Performed By: #### M .2199, , L500.2500, L100.0500 #### [facility] [address] [place], [address] Creatinine [Mass/Vol] 1.21 mg/dL Normal 0.70-1.30 [facility] Comment on above: Order Comment: .2 Result Comment: The validity of the calculated GFR GFRAA in patients over 70 years has not been determined. Clinical correlation is essential. Performed By: #### M 100.2199, L4, L500.2500, L100.0500 #### [facility] [address] [place], [address] EST GFR - AA 73 mL/min Normal >60 [facility] Comment on above: Order Comment: Result Comment: Afri can Hungarian GFR Calc Performed By: #### M .2199, , L500.2500, L100.0500 #### [facility] [address] [place], [address] GAP 5 Normal 5-15 [facility] Comment on above: Order Comment: . Performed By: #### M .2199, , L500.2500, L100.0500 #### [facility] [address] [place], [address] GFR/1.73 sq M.predicted among non-blacks MDRD (S/P/Bld) [Vol rate/Area] 60 mL/min/{1.73_m2} Normal >60 [facility] Comment on above: Order Comment: Result Comment: Non- GFR Calc Performed By: #### M 100.220, L4, L500.2500, L100.0500 #### [facility] [address] [place], [address] Glucose [Mass/Vol] 181 mg/dL High 74-106 [facility] Comment on above: Order Comment: 206.2 Result Comment: Fast ing Glucose result greater than or equal to 126 mg/dL suggests DIABETES MELLITUS per A.D.A. criteria. Performed By: #### M 100.2200, L4, L500.2500, L100.0500 #### [facility] [address] [place], [address] Potassium [Moles/Vol] 4.6 mmol/L Normal 3.5-5.1 [facility] Comment on above: Order Comment: 206.2 Performed By: #### M .2199, , L500.2500, L100.0500 #### [facility] [address] [place], [address] Sodium [Moles/Vol] 137 mmol/L Normal 136-145 [facility] Comment on above: Order Comment: 206.2 Performed By: #### Alvaro .2199, , L500.2500, L100.0500 #### [facility] [address] [place], [address] Urea nitrogen [Mass/Vol] 34 mg/dL High 7-18 [facility] Comment on above: Order Comment: 206.2 Performed By: #### M 100.2199, , L500.2500, L100.0500 #### [facility] [address] [place], [address] CBC-Complete Blood Cnt No Di ffon 08-27-2024 Erythrocyte distribution width (RBC) [Ratio] 13.2 % Normal 11.6-14.6 [facility] Comment on above: Order Comment: 206.2 Performed By: #### M 100.220, L4, L500.2500, L100.0500 #### [facility] [address] [place], [address] Hematocrit (Bld) [Volume fraction] 33.9 % Low 40-54 [facility] Comment on above: Order Comment: 206.2 Performed By: #### M .2199, , L500.2500, L100.0500 #### [facility] [address] [place], [address] Hemoglobin (Bld) [Mass/Vol] 11.0 g/dL Low 13.0-16.5 [facility] Comment on above: Order Comment: 206.2 Performed By: #### M 100.2199, , L500.2500, L100.0500 #### [facility] [address] [place], [address] MCH (RBC) [Entitic mass] 29.6 pg Normal 27.0-32.0 [facility] Comment on above: Order Comment: 206.2 Performed By: #### M , , L500.2500, L100.0500 #### [facility] [address] [place], [address] MCHC (RBC) [Mass/Vol] 32.4 g/dL Normal 32-36 [facility] Comment on above: Order Comment: 206.2 Performed By: #### M , , L500.2500, L100.0500 #### [facility] [address] [place], [address] MCV (RBC) [Entitic vol] 91.4 fL Normal 80-94 [facility] Comment on above: Order Comment: 206.2 Performed By: #### M 100.2199, , L500.2500, L100.0500 #### [facility] [address] [place], [address] Platelet mean volume (Bld) [Entitic vol] 11.2 fL Normal 6.2-12.0 [facility] Comment on above: Order Comment: 206.2 Performed By: #### M 100.2200, L4, L500.2500, L100.0500 #### [facility] [address] [place], [address] Platelets (Bld) [#/Vol] 153 10*3/uL Normal 150-450 [facility] Comment on above: Order Comment: 206.2 Performed By: #### M 100.2199, , L500.2500, L100.0500 #### [facility] [address] [place], [address] RBC (Bld) [#/Vol] 3.71 10*6/uL Low 4.6-6.2 [facility] Comment on above: Order Comment: 206.2 Performed By: #### M 100.2199, , L500.2500, L100.0500 #### [facility] [address] [place], [address] RDW SD 43.2 fl Normal 35.1-43.9 [facility] Comment on above: Order Comment: 206.2 Performed By: #### M .2199, , L500.2500, L100.0500 #### [facility] [address] [place], [address] WBC (Bld) [#/Vol] 5.2 10*3/uL Normal 4.4-11.0 [facility] Comment on above: Order Comment: 206.2 Performed By: #### M 100.2199, L4, L500.2500, L100.0500 #### [facility] [address] [place], [address] Urinalysis, Routine (Dipstic k)on 08-27-2024 BILIRUBIN URINE Negative Normal Negative [facility] Comment on above: Order Comment: CLEAN CATCH Performed By: #### M 100.220, L4, L500.2500, L100.0500 #### [facility] [address] [place], [address] Clarity (U) Sl. Cloudy Normal Clear [facility] Comment on above: Order Comment: CLEAN CATCH Performed By: #### M 100.2200, L400.2010, L500.2500, L100.0500 #### [facility] [address] [place], [address] Color (U) Yellow Normal Yellow [facility] Comment on above: Order Comment: CLEAN CATCH Performed By: #### M 100.2199, L400.2010, L500.2500, L100.0500 #### [facility] [address] [place], [address] GLUCOSE, UR 250 mg/dl Abnormal Normal [facility] Comment on above: Order Comment: CLEAN CATCH Performed By: #### M 100.2199, , L500.2500, L100.0500 #### [facility] [address] [place], [address] KETONE UR Negative Normal Negative [facility] Comment on above: Order Comment: CLEAN CATCH Performed By: #### M 100.2199, L4.2010, L500.2500, L100.0500 #### [facility] [address] [place], [address] LEUK ESTERASE 500 /ul Abnormal Negative [facility] Comment on above: Order Comment: CLEAN CATCH Performed By: #### M 100.2199, L400.2010, L500.2500, L100.0500 #### [facility] [address] [place], [address] Nitrite Ql (U) Negative Normal Negative [facility] Comment on above: Order Comment: CLEAN CATCH Performed By: #### M 100.2200, L400.2010, L500.2500, L100.0500 #### [facility] [address] [place], [address] OCCULT BLOOD-UR 250 /ul Abnormal Negative [facility] Comment on above: Order Comment: CLEAN CATCH Performed By: #### M 100.2200, L400.2010, L500.2500, L100.0500 #### [facility] [address] [place], [address] pH UR 7.0 Normal 5.0 - 8.0 [facility] Comment on above: Order Comment: CLEAN CATCH Performed By: #### M 100.220, L400.2010, L500.2500, L100.0500 #### [facility] [address] [place], [address] PROT DIPSTX 30 mg/dl Abnormal Negative [facility] Comment on above: Order Comment: CLEAN CATCH Performed By: #### M 100.2199, L4, L500.2500, L100.0500 #### [facility] [address] [place], [address] SP.GR. DIPSTX 1.005 Normal 1.002-1.030 [facility] Comment on above: Order Comment: CLEAN CATCH Performed By: #### M 100.2200, L400.2010, L500.2500, L100.0500 #### [facility] [address] [place], [address] UROBILI Normal Normal Normal [facility] Comment on above: Order Comment: CLEAN CATCH Performed By: #### M 100.2200, L400.2010, L500.2500, L100.0500 #### [facility] [address] [place], [address] Basophil percentageOrdered B y: Javy Lynn on 01-24-2024 Hemoglobin (Bld) [Mass/Vol] 11.6 g/dL 13.0-16.5 [facility] WBC (Bld) [#/Vol] 4.1 10*3/uL 4.4-11.0 [facility] Determination of erythrocyte mean corpuscular volume (MCV)Ordered By: Javy Lynn on 01-24-2024 MCV (RBC) [Entitic vol] 91.1 fL 80-94 [facility] Erythrocyte distribution wid th ratioOrdered By: Javy Lynn on 01-24-2024 Erythrocyte distribution width (RBC) [Ratio] 13.0 % 11.6-14.6 [facility] Erythrocyte distribution wid th standard deviationOrdered By: Javy Lynn on 01-24-2024 Erythrocyte distribution width (RBC) [Entitic vol] 43.4 fL 35.1-43.9 [facility] Hematocrit Auto (Bld) [Volum e fraction]Ordered By: Javy Lynn on 01-24-2024 Hematocrit (Bld) [Volume fraction] 36.0 % 40-54 [facility] - Hematology and Cell countsOrdered By: Javy Lynn on 01-24-2024 MCH (RBC) [Entitic mass] 29.4 pg 27.0-32.0 [facility] MCHC (RBC) [Mass/Vol] 32.2 g/dL 32-36 [facility] Platelet mean volume (Bld) [Entitic vol] 11.8 fL 6.2-12.0 [facility] Platelets (Bld) [#/Vol] 155 10*3/uL 150-450 [facility] RBC Auto (Bld) [#/Vol]Ordere d By: Javy Lynn on 01-24-2024 RBC (Bld) [#/Vol] 3.95 10*6/uL 4.6-6.2 [facility] Basophil percentageOrdered B y: Javy Lynn on 01-14-2024 Chloride [Moles/Vol] 108 mmol/L 98-107 [facility] Glucose [Mass/Vol] 114 mg/dL 74-106 [facility] Comment on above: Fasting Glucose resu lt from 100 to 125 mg/dL suggests IMPAIRED HOMEOSTASIS per A.D.A. criteria. Hemoglobin (Bld) [Mass/Vol] 12.3 g/dL 13.0-16.5 [facility] Potassium [Moles/Vol] 4.9 mmol/L 3.5-5.1 [facility] Sodium [Moles/Vol] 143 mmol/L 136-145 [facility] WBC (Bld) [#/Vol] 4.9 10*3/uL 4.4-11.0 [facility] Determination of erythrocyte mean corpuscular volume (MCV)Ordered By: Javy Lynn on 01-14-2024 MCV (RBC) [Entitic vol] 93.3 fL 80-94 [facility] Erythrocyte distribution wid th ratioOrdered By: Javy Lynn on 01-14-2024 Erythrocyte distribution width (RBC) [Ratio] 13.3 % 11.6-14.6 [facility] Erythrocyte distribution wid th standard deviationOrdered By: Javy Lynn on 01-14-2024 Erythrocyte distribution width (RBC) [Entitic vol] 45.5 fL 35.1-43.9 [facility] Hematocrit Auto (Bld) [Volum e fraction]Ordered By: Javy Lynn on 01-14-2024 Hematocrit (Bld) [Volume fraction] 39.3 % 40-54 [facility] - Chemistry and C hemistry - challengeOrdered By: Javy Lynn on 01-14-2024 CO2 [Moles/Vol] 32.0 mmol/L 21.0-32.0 [facility] Urea nitrogen/Creatinine [Mass ratio] 28.1 mg/mg 10-20 [facility] - Hematology and Cell countsOrdered By: Javy Lynn on 01-14-2024 MCH (RBC) [Entitic mass] 29.2 pg 27.0-32.0 [facility] MCHC (RBC) [Mass/Vol] 31.3 g/dL 32-36 [facility] Platelet mean volume (Bld) [Entitic vol] 12.2 fL 6.2-12.0 [facility] Platelets (Bld) [#/Vol] 131 10*3/uL 150-450 [facility] No Panel InformationOrdered By: Javy Lynn on 01-14-2024 Estimated GFR (MDRD) Amer 68 mL/min >60 [facility] Comment on above: GFR Calc Estimated GFR (MDRD) Non-Af Amer 56 mL/min >60 [facility] Comment on above: Non- GFR Calc RBC Auto (Bld) [#/Vol]Ordere d By: Javy Lynn on 01-14-2024 RBC (Bld) [#/Vol] 4.21 10*6/uL 4.6-6.2 [facility] Serum or plasma calcium saud urement (mass/volume)Ordered By: Javy Lynn on 01-14-2024 Calcium [Mass/Vol] 9.8 mg/dL 8.5-10.1 [facility] Serum or plasma creatinine m easurement (mass/volume)Ordered By: Javy Lynn on 01-14-2024 Creatinine [Mass/Vol] 1.28 mg/dL 0.70-1.30 [facility] Comment on above: The validity of the calculated GFR & GFRAA in patients over 70 years has not been determined. Clinical correlation is essential. Serum or plasma urea nitroge n measurement (mass/volume)Ordered By: Javy Lynn on 01-14-2024 Urea nitrogen [Mass/Vol] 36 mg/dL 7-18 [facility] Thin prep Papanicolaou smear with manual screeningOrdered By: Javy Lynn on 01-14-2024 Thin prep Papanicolaou smear with manual screening 3 5-15 [facility] Basophil percentageOrdered B y: Javy Lynn on 12-25-2023 Bilirubin [Mass/Vol] 0.40 mg/dL 0.20-1.00 [facility] Comment on above: For patients on eltr ombopag therapy, use of Dimension [place] TBIL is not recommended. Chloride [Moles/Vol] 107 mmol/L 98-107 [facility] Glucose [Mass/Vol] 132 mg/dL 74-106 [facility] Comment on above: Fasting Glucose resu lt greater than or equal to 126 mg/dL suggests DIABETES MELLITUS per A.D.A. criteria. Hemoglobin (Bld) [Mass/Vol] 13.2 g/dL 13.0-16.5 [facility] Potassium [Moles/Vol] 4.3 mmol/L 3.5-5.1 [facility] Protein [Mass/Vol] 7.4 g/dL 6.4-8.2 [facility] Sodium [Moles/Vol] 139 mmol/L 136-145 [facility] WBC (Bld) [#/Vol] 5.1 10*3/uL 4.4-11.0 [facility] Determination of erythrocyte mean corpuscular volume (MCV)Ordered By: Javy Lynn on 12-25-2023 MCV (RBC) [Entitic vol] 91.5 fL 80-94 [facility] Erythrocyte distribution wid th ratioOrdered By: Javy Lynn on 12-25-2023 Erythrocyte distribution width (RBC) [Ratio] 13.0 % 11.6-14.6 [facility] Erythrocyte distribution wid th standard deviationOrdered By: Javy Lynn on 12-25-2023 Erythrocyte distribution width (RBC) [Entitic vol] 43.4 fL 35.1-43.9 [facility] Hematocrit Auto (Bld) [Volum e fraction]Ordered By: Javy Lynn on 12-25-2023 Hematocrit (Bld) [Volume fraction] 40.9 % 40-54 [facility] - Chemistry and C hemistry - challengeOrdered By: Javy Lynn on 12-25-2023 Albumin/Globulin [Mass ratio] 0.9 {ratio} 0.9-2.4 [facility] ALP [Catalytic activity/Vol] 132 U/L 45-117 [facility] ALT [Catalytic activity/Vol] 32 U/L 16-61 [facility] CO2 [Moles/Vol] 28.0 mmol/L 21.0-32.0 [facility] Globulin (S) [Mass/Vol] 3.8 g/dL 2.2-4.2 [facility] Urea nitrogen/Creatinine [Mass ratio] 28.0 mg/mg 10-20 [facility] - Hematology and Cell countsOrdered By: Javy Lynn on 12-25-2023 MCH (RBC) [Entitic mass] 29.5 pg 27.0-32.0 [facility] MCHC (RBC) [Mass/Vol] 32.3 g/dL 32-36 [facility] Platelet mean volume (Bld) [Entitic vol] 12.0 fL 6.2-12.0 [facility] Platelets (Bld) [#/Vol] 193 10*3/uL 150-450 [facility] No Panel InformationOrdered By: Javy Lynn on 12-25-2023 Estimated GFR (MDRD) Amer 66 mL/min >60 [facility] Comment on above: GFR Calc Estimated GFR (MDRD) Non-Af Amer 54 mL/min >60 [facility] Comment on above: Non- GFR Calc RBC Auto (Bld) [#/Vol]Ordere d By: Javy Lynn on 12-25-2023 RBC (Bld) [#/Vol] 4.47 10*6/uL 4.6-6.2 [facility] Serum or plasma calcium saud urement (mass/volume)Ordered By: Javy Lynn on 12-25-2023 Calcium [Mass/Vol] 9.7 mg/dL 8.5-10.1 [facility] Serum or plasma creatinine m easurement (mass/volume)Ordered By: Javy Lynn on 12-25-2023 Creatinine [Mass/Vol] 1.32 mg/dL 0.70-1.30 [facility] Comment on above: The validity of the calculated GFR & GFRAA in patients over 70 years has not been determined. Clinical correlation is essential. Serum or plasma urea nitroge n measurement (mass/volume)Ordered By: Javy Lynn on 12-25-2023 Urea nitrogen [Mass/Vol] 37 mg/dL 7-18 [facility] Thin prep Papanicolaou smear with manual screeningOrdered By: Javy Lynn on 12-25-2023 Thin prep Papanicolaou smear with manual screening 3.6 g/dL 3.2-5.0 [facility] Thin prep Papanicolaou smear with manual screening 18 U/L 15-37 [facility] Thin prep Papanicolaou smear with manual screening 4 5-15 [facility] Whole blood hemoglobin A1c/t otal hemoglobin ratio (mass fraction)Ordered By: Javy Lynn on 12-24-2023 HbA1c (Bld) [Mass fraction] 6.6 % 3.8-5.6 [facility] Comment on above: Normal < 5.7 % Predi abetic 5.7 - 6.4 % Diabetic >or= 6.5 % Please note range changes. Basophil percentageOrdered B y: Javy Lynn on 12-19-2023 Bilirubin [Mass/Vol] 0.30 mg/dL 0.20-1.00 [facility] Comment on above: For patients on eltr ombopag therapy, use of Dimension [place] TBIL is not recommended. Chloride [Moles/Vol] 108 mmol/L 98-107 [facility] Glucose [Mass/Vol] 136 mg/dL 74-106 [facility] Comment on above: Fasting Glucose resu lt greater than or equal to 126 mg/dL suggests DIABETES MELLITUS per A.D.A. criteria. Hemoglobin (Bld) [Mass/Vol] 11.9 g/dL 13.0-16.5 [facility] Potassium [Moles/Vol] 4.3 mmol/L 3.5-5.1 [facility] Comment on above: Slight Hemolysis, Re sult may be falsely increased. Protein [Mass/Vol] 6.6 g/dL 6.4-8.2 [facility] Sodium [Moles/Vol] 139 mmol/L 136-145 [facility] WBC (Bld) [#/Vol] 4.4 10*3/uL 4.4-11.0 [facility] Determination of erythrocyte mean corpuscular volume (MCV)Ordered By: Javy Lynn on 12-19-2023 MCV (RBC) [Entitic vol] 91.0 fL 80-94 [facility] Erythrocyte distribution wid th ratioOrdered By: Javy Lynn on 12-19-2023 Erythrocyte distribution width (RBC) [Ratio] 12.6 % 11.6-14.6 [facility] Erythrocyte distribution wid th standard deviationOrdered By: Javy Lynn on 12-19-2023 Erythrocyte distribution width (RBC) [Entitic vol] 41.8 fL 35.1-43.9 [facility] Hematocrit Auto (Bld) [Volum e fraction]Ordered By: Javy Lynn on 12-19-2023 Hematocrit (Bld) [Volume fraction] 37.2 % 40-54 [facility] Laboratory - Chemistry and C hemistry - challengeOrdered By: Javy Lynn on 02-28-2024 Albumin/Globulin [Mass ratio] 0.8 {ratio} 0.9-2.4 [facility] ALP [Catalytic activity/Vol] 109 U/L 45-117 [facility] ALT [Catalytic activity/Vol] 31 U/L 16-61 [facility] CO2 [Moles/Vol] 28.0 mmol/L 21.0-32.0 [facility] Globulin (S) [Mass/Vol] 3.6 g/dL 2.2-4.2 [facility] Urea nitrogen/Creatinine [Mass ratio] 30.2 mg/mg 10-20 [facility] Laboratory - Hematology and Cell countsOrdered By: Javy Lynn on 12-19-2023 MCH (RBC) [Entitic mass] 29.1 pg 27.0-32.0 [facility] MCHC (RBC) [Mass/Vol] 32.0 g/dL 32-36 [facility] Platelet mean volume (Bld) [Entitic vol] 11.1 fL 6.2-12.0 [facility] Platelets (Bld) [#/Vol] 234 10*3/uL 150-450 [facility] No Panel InformationOrdered By: Javy Lynn on 12-19-2023 Estimated GFR (MDRD) Amer 68 mL/min >60 [facility] Comment on above: GFR Calc Estimated GFR (MDRD) Non-Af Amer 56 mL/min >60 [facility] Comment on above: Non- GFR Calc RBC Auto (Bld) [#/Vol]Ordere d By: Javy Lynn on 12-19-2023 RBC (Bld) [#/Vol] 4.09 10*6/uL 4.6-6.2 [facility] Serum or plasma calcium saud urement (mass/volume)Ordered By: Javy Lynn on 12-19-2023 Calcium [Mass/Vol] 9.6 mg/dL 8.5-10.1 [facility] Serum or plasma creatinine m easurement (mass/volume)Ordered By: Javy Lynn on 12-19-2023 Creatinine [Mass/Vol] 1.29 mg/dL 0.70-1.30 [facility] Comment on above: The validity of the calculated GFR & GFRAA in patients over 70 years has not been determined. Clinical correlation is essential. Serum or plasma urea nitroge n measurement (mass/volume)Ordered By: Javy Lynn on 12-19-2023 Urea nitrogen [Mass/Vol] 39 mg/dL 7-18 [facility] Thin prep Papanicolaou smear with manual screeningOrdered By: Javy Lynn on 12-19-2023 Thin prep Papanicolaou smear with manual screening 3.0 g/dL 3.2-5.0 [facility] Thin prep Papanicolaou smear with manual screening 25 U/L [facility] Comment on above: Slight Hemolysis, Re sult may be falsely increased. Thin prep Papanicolaou smear with manual screening 3 5-15 [facility] Laboratory - Chemistry and C hemistry - challengeon 12-12-2023 Glucose [Mass/Vol] 174 mg/dL High 70 - 100 mg/dL [facility] Glucose [Mass/Vol] 101 mg/dL High 70 - 100 mg/dL [facility] Laboratory - Microbiology an d Antimicrobial susceptibilityOrdered By: Tatyana Cedillo on 12-12-2023 SARS-CoV-2 (COVID-19) Ag IA.rapid Ql (Resp) Negative Negative [facility] Comment on above: A negative result do es not rule out the possibility of SARS-CoV-2 infection. NAAT-based methods should be considered for symptomatic patients presenting greater than seven days after onset of symptoms. Method: Lateral flow immunoassay. Fact sheets for healthcare providers and patients can be found at the following sites: https://www.fda.gov/media/742792/download https://www.fda.gov/media/196475/download No Panel Informationon 12-12 Interpretation and review of laboratory results Abnormal [facility] Performed by: [facility] [facility], [address] [facility] [address] CLIA ID: [id number] [facility] Interpretation and review of laboratory results Abnormal [facility] Performed by: [facility], [address] [facility] [address] CLIA ID: [id number] [facility] Radiology Study observation (narrative) [facility] Radiology Study observation (narrative) [facility] SARS-CoV-2 (COVID-19) Ag IA. rapid Ql (Resp)Ordered By: Tatyana Cedillo on 12-12-2023 Interpretation and review of laboratory results Normal [facility] Bacteria identified Cx Nom ( Bld)on 12-11-2023 Interpretation and review of laboratory results Normal [facility] Blood Collection Site: Left Arm [facility] Blood Collection Site: Left Forearm [facility] CBC panel Auto (Bld)Ordered By: Osman Cadena on 12-11-2023 Erythrocyte distribution width (RBC) [Ratio] 13.7 % 11.5 - 14.5 % [facility] Hematocrit (Bld) [Volume fraction] 36.0 % Low 40.0 - 52.0 % [facility] Hemoglobin (Bld) [Mass/Vol] 12.1 g/dL Low 13.0 - 18.0 g/dL [facility] Interpretation and review of laboratory results Abnormal [facility] MCH (RBC) [Entitic mass] 29.8 pg 26. 0 - 34.0 pg [facility] MCHC (RBC) [Mass/Vol] 33.7 % 32.0 - 36.0 % [facility] MCV (RBC) [Entitic vol] 88.2 fL 80.0 - 98.0 fL [facility] Platelet mean volume (Bld) [Entitic vol] 8.4 fL 7.4 - 12.4 fL [facility] Platelets (Bld) [#/Vol] 204 10*3/uL 140 - 440 10*3/uL [facility] RBC (Bld) [#/Vol] 4.08 10*6/uL Low 4.40 - 5.9 0 10*6/uL [facility] WBC (Bld) [#/Vol] 4.6 10*3/uL 3.6 - 10.7 10*3/uL [facility] Comprehensive metabolic 1998 panelon 12-11-2023 Albumin [Mass/Vol] 3.6 g/dL 3.5 - 5.0 g/dL [facility] ALP [Catalytic activity/Vol] 104 U/L 38 - 126 U/L [facility] ALT [Catalytic activity/Vol] 24 U/L 0 - 49 U/L [facility] Anion gap [Moles/Vol] 9 mmol/L 3 - 13 mmol/L [facility] AST [Catalytic activity/Vol] 27 U/L 15 - 46 U/L [facility] Bilirubin [Mass/Vol] 0.3 mg/dL 0.2 - 1 .3 mg/dL [facility] Calcium [Mass/Vol] 9.5 mg/dL 8.4 - 10. 4 mg/dL [facility] Chloride [Moles/Vol] 105 mmol/L 98 - 10 7 mmol/L [facility] CO2 [Moles/Vol] 23 mmol/L 22 - 30 mmol/L [facility] Creatinine [Mass/Vol] 1.02 mg/dL 0.66 - 1.25 mg/dL [facility] GFR/1.73 sq M.predicted MDRD (S/P/Bld) [Vol rate/Area] 70.7 mL/min/{1.73_m2} - PINF [facility] Comment on above: Calculation based on the Chronic Kidney Disease Epidemiology Collaboration (CKD-EPI) equation refit without adjustment for race Glucose [Mass/Vol] 117 mg/dL High 70 - 100 mg/dL [facility] Interpretation and review of laboratory results Abnormal [facility] Potassium [Moles/Vol] 3.6 mmol/L 3.5 - 5.1 mmol/L [facility] Protein [Mass/Vol] 6.9 g/dL 6.3 - 8.2 g/dL [facility] Sodium [Moles/Vol] 137 mmol/L 135 - 145 mmol/L [facility] Urea nitrogen [Mass/Vol] 18 mg/dL 9 - 20 mg/d L [facility] Laboratory - Chemistry and C hemistry - challengeon 12-11-2023 Glucose [Mass/Vol] 214 mg/dL High 70 - 100 mg/dL [facility] Glucose [Mass/Vol] 123 mg/dL High 70 - 100 mg/dL [facility] Glucose [Mass/Vol] 137 mg/dL High 70 - 100 mg/dL [facility] Glucose [Mass/Vol] 226 mg/dL High 70 - 100 mg/dL [facility] Laboratory - Microbiology an d Antimicrobial susceptibilityon 12-11-2023 Bacteria identified Cx Nom (Bld) No growth at 5 days [facility] No Panel Informationon 12-11 Interpretation and review of laboratory results Abnormal [facility] Performed by: [facility], [address] [place] [address] [place] [address] CLIA ID: [id number] [facility] Interpretation and review of laboratory results Abnormal [facility]formed by: [facility], [address] [facility], [facility] [address] CLIA ID: [id number] [facility] Interpretation and review of laboratory results Abnormal [facility] Performed by: [facility], [address] [facility] [place], [facility] [address] CLIA ID: [id number] [facility] Interpretation and review of laboratory results Abnormal [facility] Performed by: [facility], [address] [facility] [place], [facility] [address] CLIA ID: [id number] [facility] Radiology Study observation (narrative) [facility] Radiology Study observation (narrative) [facility] (narrative) [facility] CBC panel Auto (Bld)Ordered By: Davina Ramos on 12-10-2023 Erythrocyte distribution width (RBC) [Ratio] 13.7 % 11.5 - 14.5 % [facility] Hematocrit (Bld) [Volume fraction] 34.7 % Low 40.0 - 52.0 % [facility] Hemoglobin (Bld) [Mass/Vol] 11.8 g/dL Low 13.0 - 18.0 g/dL [facility] Interpretation and review of laboratory results Abnormal [facility] MCH (RBC) [Entitic mass] 30.0 pg 26. 0 - 34.0 pg [facility] MCHC (RBC) [Mass/Vol] 33.9 % 32.0 - 36.0 % [facility] MCV (RBC) [Entitic vol] 88.3 fL 80.0 - 98.0 fL [facility] Platelet mean volume (Bld) [Entitic vol] 8.8 fL 7.4 - 12.4 fL [facility] Platelets (Bld) [#/Vol] 185 10*3/uL 140 - 440 10*3/uL [facility] RBC (Bld) [#/Vol] 3.93 10*6/uL Low 4.40 - 5.9 0 10*6/uL [facility] WBC (Bld) [#/Vol] 4.3 10*3/uL 3.6 - 10.7 10*3/uL [facility] Comprehensive metabolic 1998 panelon 12-10-2023 Albumin [Mass/Vol] 3.5 g/dL 3.5 - 5.0 g/dL [facility] ALP [Catalytic activity/Vol] 93 U/L 38 - 126 U/L [facility] ALT [Catalytic activity/Vol] 24 U/L 0 - 49 U/L [facility] Anion gap [Moles/Vol] 8 mmol/L 3 - 13 mmol/L [facility] AST [Catalytic activity/Vol] 24 U/L 15 - 46 U/L [facility] Bilirubin [Mass/Vol] 0.2 mg/dL 0.2 - 1 .3 mg/dL [facility] Calcium [Mass/Vol] 9.3 mg/dL 8.4 - 10. 4 mg/dL [facility] Chloride [Moles/Vol] 104 mmol/L 98 - 10 7 mmol/L [facility] CO2 [Moles/Vol] 25 mmol/L 22 - 30 mmol/L [facility] Creatinine [Mass/Vol] 0.99 mg/dL 0.66 - 1.25 mg/dL [facility] GFR/1.73 sq M.predicted MDRD (S/P/Bld) [Vol rate/Area] 73.3 mL/min/{1.73_m2} - PINF [facility] Comment on above: Calculation based on the Chronic Kidney Disease Epidemiology Collaboration (CKD-EPI) equation refit without adjustment for race Glucose [Mass/Vol] 124 mg/dL High 70 - 100 mg/dL [facility] Interpretation and review of laboratory results Abnormal [facility] Potassium [Moles/Vol] 3.6 mmol/L 3.5 - 5.1 mmol/L [facility] Protein [Mass/Vol] 6.8 g/dL 6.3 - 8.2 g/dL [facility] Sodium [Moles/Vol] 137 mmol/L 135 - 145 mmol/L [facility] Urea nitrogen [Mass/Vol] 19 mg/dL 9 - 20 mg/d L [facility] Laboratory - Chemistry and C hemistry - challengeon 12-10-2023 Glucose [Mass/Vol] 142 mg/dL High 70 - 100 mg/dL [facility] Glucose [Mass/Vol] 112 mg/dL High 70 - 100 mg/dL [facility] Glucose [Mass/Vol] 223 mg/dL High 70 - 100 mg/dL [facility] Glucose [Mass/Vol] 136 mg/dL High 70 - 100 mg/dL [facility] Glucose [Mass/Vol] 141 mg/dL High 70 - 100 mg/dL [facility] No Panel Informationon 12-10 Interpretation and review of laboratory results Abnormal [facility] Performed by: [facility], [address] [facility] [place], [facility] [address] CLIA ID: [id number] [facility] Interpretation and review of laboratory results Abnormal [facility] Performed by: [facility], [address] [place], [facility] [address] CLIA ID: [id number] [facility] Interpretation and review of laboratory results Abnormal [facility] Performed by: [facility], [address] [facility] [place], [facility] [address] CLIA ID: [id number] [facility] Interpretation and review of laboratory results Abnormal [facility] Performed by: [facility], [address] [facility] [place], [facility] [address] CLIA ID: [id number] [facility] Interpretation and review of laboratory results Abnormal [facility] Performed by: [facility], [address] [facility] [place], [facility] [address] CLIA ID: [id number] [facility] Radiology Study observation (narrative) [facility] Radiology Study observation (narrative) [facility] Radiology Study observation (narrative) [facility] Radiology Study observation (narrative) [facility] CBC panel Auto (Bld)on 12-09 Erythrocyte distribution width (RBC) [Ratio] 13.9 % 11.5 - 14.5 % [facility] Hematocrit (Bld) [Volume fraction] 35.3 % Low 40.0 - 52.0 % [facility] Hemoglobin (Bld) [Mass/Vol] 11.8 g/dL Low 13.0 - 18.0 g/dL [facility] Interpretation and review of laboratory results Abnormal [facility] MCH (RBC) [Entitic mass] 29.8 pg 26. 0 - 34.0 pg [facility] MCHC (RBC) [Mass/Vol] 33.4 % 32.0 - 36.0 % [facility] MCV (RBC) [Entitic vol] 89.0 fL 80.0 - 98.0 fL [facility] Platelet mean volume (Bld) [Entitic vol] 8.4 fL 7.4 - 12.4 fL [facility] Platelets (Bld) [#/Vol] 166 10*3/uL 140 - 440 10*3/uL [facility] RBC (Bld) [#/Vol] 3.97 10*6/uL Low 4.40 - 5.9 0 10*6/uL [facility] WBC (Bld) [#/Vol] 4.3 10*3/uL 3.6 - 10.7 10*3/uL [facility] Comprehensive metabolic 1998 panelon 12-09-2023 Albumin [Mass/Vol] 3.4 g/dL Low 3.5 - 5.0 g/dL [facility] ALP [Catalytic activity/Vol] 90 U/L 38 - 126 U/L [facility] ALT [Catalytic activity/Vol] 22 U/L 0 - 49 U/L [facility] Anion gap [Moles/Vol] 8 mmol/L 3 - 13 mmol/L [facility] AST [Catalytic activity/Vol] 27 U/L 15 - 46 U/L [facility] Bilirubin [Mass/Vol] 0.3 mg/dL 0.2 - 1 .3 mg/dL [facility] Calcium [Mass/Vol] 9.1 mg/dL 8.4 - 10. 4 mg/dL [facility] Chloride [Moles/Vol] 108 mmol/L High 98 - 10 7 mmol/L [facility] CO2 [Moles/Vol] 26 mmol/L 22 - 30 mmol/L [facility] Creatinine [Mass/Vol] 1.01 mg/dL 0.66 - 1.25 mg/dL [facility] GFR/1.73 sq M.predicted MDRD (S/P/Bld) [Vol rate/Area] 71.5 mL/min/{1.73_m2} - PINF [facility] Comment on above: Calculation based on the Chronic Kidney Disease Epidemiology Collaboration (CKD-EPI) equation refit without adjustment for race Glucose [Mass/Vol] 42 mg/dL Critically low 70 - 10 0 mg/dL [facility] Interpretation and review of laboratory results Abnormal [facility] Potassium [Moles/Vol] 3.3 mmol/L Low 3.5 - 5.1 mmol/L [facility] Protein [Mass/Vol] 6.4 g/dL 6.3 - 8.2 g/dL [facility] Sodium [Moles/Vol] 141 mmol/L 135 - 145 mmol/L [facility] Urea nitrogen [Mass/Vol] 22 mg/dL High 9 - 20 mg/d L [facility] Laboratory - Chemistry and C hemistry - challengeon 12-09-2023 Glucose [Mass/Vol] 137 mg/dL High 70 - 100 mg/dL [facility] Procalcitonin [Mass/Vol] 3.53 ng/mL High 0.0 0 - 0.09 ng/mL [facility] Glucose [Mass/Vol] 111 mg/dL High 70 - 100 mg/dL [facility] Glucose [Mass/Vol] 173 mg/dL High 70 - 100 mg/dL [facility] Glucose [Mass/Vol] 449 mg/dL High 70 - 100 mg/dL [facility] Glucose [Mass/Vol] 101 mg/dL High 70 - 100 mg/dL [facility] Glucose [Mass/Vol] 60 mg/dL Low 70 - 100 mg/dL [facility] Magnesium [Mass/Vol] 1.9 mg/dL 1.6 - 2 .3 mg/dL [facility] Glucose [Mass/Vol] mg/dL Low 70 - 100 mg/dL [facility] Comment on above: Repeated Test; Magnesium [Mass/Vol]on 12-09 Interpretation and review of laboratory results Normal [facility] No Panel Informationon 12-09 Interpretation and review of laboratory results Abnormal [facility]formed by: [facility], [address] [place] [place] [address] CLIA ID: [id number] [facility] Interpretation and review of laboratory results Abnormal [facility] Performed by: [facility], [address] [facility] [address] CLIA ID: [id number] [facility] Interpretation and review of laboratory results Abnormal [facility] Performed by: [facility], [address] [facility] [address] CLIA ID: [id number] [facility] Interpretation and review of laboratory results Abnormal [facility] Performed by: [facility], [address] [facility] [address] CLIA ID: [id number] [facility] Interpretation and review of laboratory results Abnormal [facility] Performed by: [facility], [address] [facility] [place], [facility] [address] CLIA ID: [id number] [facility] Interpretation and review of laboratory results Abnormal [facility] Performed by: [facility], [address] [place], [facility] [address] CLIA ID: [id number] [facility] Interpretation and review of laboratory results Abnormal [facility] Performed by: [facility], [address] [facility] [place], [facility] [address] CLIA ID: [id number] [facility] [Mass/Vol]on 12-09-2023 Interpretation and review of laboratory results Abnormal [facility] PCT <0.50 = Low risk of severe sepsis and/or septic shock. PCT >2.00 = High risk of severe sepsis and/or septic shock. [facility] CBC panel Auto (Bld)Ordered By: Waylon Fajardo on 12-08-2023 Erythrocyte distribution width (RBC) [Ratio] 13.9 % 11.5 - 14.5 % [facility] Hematocrit (Bld) [Volume fraction] 35.0 % Low 40.0 - 52.0 % [facility] Hemoglobin (Bld) [Mass/Vol] 11.7 g/dL Low 13.0 - 18.0 g/dL [facility] Interpretation and review of laboratory results Abnormal [facility] MCH (RBC) [Entitic mass] 30.0 pg 26. 0 - 34.0 pg [facility] MCHC (RBC) [Mass/Vol] 33.4 % 32.0 - 36.0 % [facility] MCV (RBC) [Entitic vol] 90.0 fL 80.0 - 98.0 fL [facility] Platelet mean volume (Bld) [Entitic vol] 8.9 fL 7.4 - 12.4 fL [facility] Platelets (Bld) [#/Vol] 146 10*3/uL 140 - 440 10*3/uL [facility] RBC (Bld) [#/Vol] 3.89 10*6/uL Low 4.40 - 5.9 0 10*6/uL [facility] WBC (Bld) [#/Vol] 6.0 10*3/uL 3.6 - 10.7 10*3/uL [facility] Comprehensive metabolic 1998 panelon 12-08-2023 Albumin [Mass/Vol] 3.4 g/dL Low 3.5 - 5.0 g/dL [facility] ALP [Catalytic activity/Vol] 92 U/L 38 - 126 U/L [facility] ALT [Catalytic activity/Vol] 23 U/L 0 - 49 U/L [facility] Anion gap [Moles/Vol] 4 mmol/L 3 - 13 mmol/L [facility] AST [Catalytic activity/Vol] 34 U/L 15 - 46 U/L [facility] Bilirubin [Mass/Vol] 0.6 mg/dL 0.2 - 1 .3 mg/dL [facility] Calcium [Mass/Vol] 9.2 mg/dL 8.4 - 10. 4 mg/dL [facility] Chloride [Moles/Vol] 105 mmol/L 98 - 10 7 mmol/L [facility] CO2 [Moles/Vol] 28 mmol/L 22 - 30 mmol/L [facility] Creatinine [Mass/Vol] 1.29 mg/dL High 0.66 - 1.25 mg/dL [facility] GFR/1.73 sq M.predicted MDRD (S/P/Bld) [Vol rate/Area] 53.3 mL/min/{1.73_m2} Low - PINF [facility] Comment on above: Calculation based on the Chronic Kidney Disease Epidemiology Collaboration (CKD-EPI) equation refit without adjustment for race Glucose [Mass/Vol] 143 mg/dL High 70 - 100 mg/dL [facility] Interpretation and review of laboratory results Abnormal [facility] Potassium [Moles/Vol] 3.9 mmol/L 3.5 - 5.1 mmol/L [facility] Protein [Mass/Vol] 6.5 g/dL 6.3 - 8.2 g/dL [facility] Sodium [Moles/Vol] 138 mmol/L 135 - 145 mmol/L [facility] Urea nitrogen [Mass/Vol] 35 mg/dL High 9 - 20 mg/d L [facility] Laboratory - Chemistry and C hemistry - challengeon 12-08-2023 Glucose [Mass/Vol] 138 mg/dL High 70 - 100 mg/dL [facility] Glucose [Mass/Vol] 141 mg/dL High 70 - 100 mg/dL [facility] Glucose [Mass/Vol] 222 mg/dL High 70 - 100 mg/dL [facility] Glucose [Mass/Vol] 136 mg/dL High 70 - 100 mg/dL [facility] Glucose [Mass/Vol] 122 mg/dL High 70 - 100 mg/dL [facility] Laboratory - Drug toxicology on 12-08-2023 Vancomycin [Mass/Vol] 11.3 ug/mL Low 15.0 - 20.0 ug/mL [facility] MRSA DNA LISANDRO+probe Ql (Nose) on 12-08-2023 Interpretation and review of laboratory results Normal [facility] mecA gene Not detected Not Detected [facility] Staphylococcus aureus Not detected Not Detected [facility] No Staphylococcus aureus detected. Negative nasal MRSA PCR has a high negative predictive value for MRSA pneumonia. Consider stopping Vancomycin if no other clinical indication. Contact Antimicrobial Stewardship for further recommendations. Staphylococcus aureus nasal screen by real-time PCR. This test was modified and its performance characteristics determined by [facility]. The U. S. Food and Drug Administration has not approved or cleared this test; however, FDA clearance or approval is not currently required for clinical use. The results are not intended to be used as the sole means for clinical diagnosis or patient management decisions. [facility] No Panel Informationon 12-08 Interpretation and review of laboratory results Abnormal [facility] Performed by: [facility], [address] [place] [id number] CLIA ID: [id number] [facility] Interpretation and review of laboratory results Abnormal [facility] Performed by: [facility], [address] [place] [place] [address] CLIA ID: [id number] [facility] Interpretation and review of laboratory results Abnormal [facility] Performed by: [facility], [address] [place] [place] [address] CLIA ID: [id number] [facility] Interpretation and review of laboratory results Abnormal [facility] Performed by: [facility], [address] [place] [place] [id number] CLIA ID: [id number] [facility] Interpretation and review of laboratory results Abnormal [facility] Performed by: [facility], [address] [facility] [address] CLIA ID: [id number] [facility] Interpretation and review of laboratory results Abnormal [facility] Radiology Study observation (narrative) [facility] Radiology Study observation (narrative) [facility] Rad[facility] Study observation (narrative) [facility] Radiology Study observation (narrative) [facility] (narrative) [facility] - Chemistry and C hemistry - challengeon 12-07-2023 Glucose [Mass/Vol] 143 mg/dL High 70 - 100 mg/dL [facility] Glucose [Mass/Vol] 93 mg/dL 70 - 100 mg/dL [facility] Procalcitonin [Mass/Vol] 7.13 ng/mL High 0.0 0 - 0.09 ng/mL [facility] Glucose [Mass/Vol] 158 mg/dL High 70 - 100 mg/dL [facility] Glucose [Mass/Vol] 108 mg/dL High 70 - 100 mg/dL [facility] Average glucose Estimated from glycated hemoglobin (Bld) [Mass/Vol] 128 mg/dL [facility] Troponin I.cardiac [Mass/Vol] 0.070 ng/mL High NINF - 0.034 ng/mL [facility] - Hematology and Cell countson 12-07-2023 HbA1c (Bld) [Mass fraction] 6.1 % High NINF - 5.7 % [facility] Comment on above: Normal less than 5.7 % Prediabetes 5.7% to 6.4% Diabetes 6.5% or higher --HgbA1C levels may not be accurate in patients who have renal disease, received recent blood transfusions, are anemic, or who have dyshemoglobinemia. No Panel Informationon 12-07 Interpretation and review of laboratory results Abnormal [facility] Performed by: [facility], [address] [facility] [address] CLIA ID: [id number] [facility] Interpretation and review of laboratory results Normal [facility] Performed by: [facility], [address] [facility] [address] CLIA ID: [id number] [facility] Interpretation and review of laboratory results Abnormal [facility] Performed by: [facility], [address] [facility] [address] CLIA ID: [id number] [facility] Interpretation and review of laboratory results Abnormal [facility] Performed by: [facility], [address] [facility] [address] CLIA ID: [id number] [facility] Sinus rhythm Compared to ECG 09/10/23 Grossly unchanged Electronically Signed On 12-07-2023 06:37:55 EST by Thanh Howard DO - 12/07/2023 IMPRESSION: Sinus rhythm Compared to ECG 09/10/23 Grossly unchanged Electronically Signed On 12-07-2023 06:37:55 EST by Thanh Polanco [facility] Interpretation and review of laboratory results Abnormal [facility] Radiology Study observation (narrative) [facility] Rad[facility] ([facility]arrative) [facility] (narrative) [facility] Rad[facility] (narrative) [facility] No Panel InformationOrdered By: Melissa Bui on 12-07-2023 Interpretation and review of laboratory results Abnormal [facility] Legionella pneumophila Ag Not detected Not Detected [facility] Streptococcus pneumoniae Ag Detected Abnormal Not Detected [facility] Methodology: Lateral flow enzyme immunoassay This assay is approved for detection of antigens to Streptococcus pneumoniae and Legionella pneumophila serogroup 1; however, other L. pneumophila serogroups may also be detected. [facility] No Panel InformationOrdered By: Thanh Polanco on 12-07-2023 P [place] 54 degrees [facility] [employer] Work Phone: [phone] [place] Interval 169 ms [facility] Work Phone: QRS [place] 60 degrees [facility] Work Phone: QRSD Interval 74 ms [facility] [employer] Work Phone: QT Interval 334 ms [facility] Work Phone: QTC Interval 420 ms [facility] Work Phone: T Wave [place] 23 degrees [facility] Work Phone: [facility] Work Phone: Procalcitonin [Mass/Vol]on 0 12-07-2023 Interpretation and review of laboratory results Abnormal [facility] PCT <0.50 = Low risk of severe sepsis and/or septic shock. PCT >2.00 = High risk of severe sepsis and/or septic shock. [facility] Troponin I.cardiac [Mass/Vol ]on 12-07-2023 Interpretation and review of laboratory results Abnormal [facility] Patients with high levels of Biotin oral intake (ie >5 mg/day) may have falsely decreased Troponin levels. [facility] Urinalysis complete panel (U )Ordered By: Corina Hoffman on 12-07-2023 Bacteria LM.HPF (Urine sed) [#/Area] Negative Negative /HPF [facility] Bilirubin Ql (U) Negative Negative mg/dL [facility] Clarity (U) Clear Clear [facility] Color (U) Light Yellow Lt. Yellow [facility] Epithelial cells.squamous LM.HPF (Urine sed) [#/Area] Negative [facility] Glucose Ql (U) Normal Normal (<70) mg/dL [facility] Hemoglobin Ql (U) 0.03 mg/dL Abnormal Negative [facility] Interpretation and review of laboratory results Abnormal [facility] Ketones (U) [Mass/Vol] Negative Negat kate mg/dL [facility] Leukocyte esterase Test strip Ql (U) Negative Negative Rosales/uL [facility] Nitrite Ql (U) Negative Negative [facility] th pH (U) 6.0 [pH] 5.0 - 8.0 pH [facility] Protein (U) [Mass/Vol] 30 mg/dL Abnormal Negative [facility] RBC LM.HPF (Urine sed) [#/Area] 0-2 [facility] Specific gravity (U) [Rel density] 1.025 1.005 - 1.030 [facility] Urobilinogen (U) [Mass/Vol] Normal Normal (0-1) mg/dL [facility] WBC LM.HPF (Urine sed) [#/Area] 0-2 [facility] Vital signsOrdered By: Leticia Polanco on 12-07-2023 Heart rate 95 /min bpm [facility] Work Phone: CBC W Auto Differential pane l (Bld)Ordered By: Brianna Stokes on 12-06-2023 Basophils (Bld) [#/Vol] 0.0 10*3/uL 0.0 - 0.2 10*3/uL [facility] Basophils/100 WBC (Bld) 0.1 % 0.0 - 2.0 % [facility] Eosinophils (Bld) [#/Vol] 0.0 10*3/uL 0.0 - 0.5 10*3/uL [facility] Eosinophils/100 WBC (Bld) 0.1 % Low 1.0 - 6.0 % [facility] Erythrocyte distribution width (RBC) [Ratio] 14.0 % 11.5 - 14.5 % [facility] Hematocrit (Bld) [Volume fraction] 36.4 % Low 40.0 - 52.0 % [facility] Hemoglobin (Bld) [Mass/Vol] 12.6 g/dL Low 13.0 - 18.0 g/dL [facility] Interpretation and review of laboratory results Abnormal [facility] Lymphocytes (Bld) [#/Vol] 0.5 10*3/uL Low 1.0 - 4.3 10*3/uL [facility] Lymphocytes/100 WBC (Bld) 5.8 % Low 20.0 - 40.0 % [facility] MCH (RBC) [Entitic mass] 30.6 pg 26. 0 - 34.0 pg [facility] MCHC (RBC) [Mass/Vol] 34.6 % 32.0 - 36.0 % [facility] MCV (RBC) [Entitic vol] 88.5 fL 80.0 - 98.0 fL [facility] Monocytes (Bld) [#/Vol] 0.6 10*3/uL 0.0 - 0.8 10*3/uL [facility] Monocytes/100 WBC (Bld) 7.3 % 2.0 - 10.0 % [facility] Neutrophils (Bld) [#/Vol] 7.3 10*3/uL High 1.8 - 7.0 10*3/uL [facility] Neutrophils/100 WBC (Bld) 86.7 % High 40.0 - 80.0 % [facility] Nucleated RBC/100 WBC (Bld) [Ratio] 0.0 % [facility] Platelet mean volume (Bld) [Entitic vol] 8.9 fL 7.4 - 12.4 fL [facility] Platelets (Bld) [#/Vol] 144 10*3/uL 140 - 440 10*3/uL [facility] RBC (Bld) [#/Vol] 4.11 10*6/uL Low 4.40 - 5.9 0 10*6/uL [facility] WBC (Bld) [#/Vol] 8.4 10*3/uL 3.6 - 10.7 10*3/uL [facility] CTA Chest vessels WO and W c [...] MD Electronically Signed Date/Time: 12/06/2023 6:26 PM [facility] 1935 [id number] Exam Date/Time: 12/06/2023 17:45 Procedure: CT CHEST ANGIOGRAM W AND/OR WO IV CONTRAST Ordering Provider: [facility] Reason For Exam: Pulmonary embolism (PE) suspected, [...] level. Degenerative change scattered in thoracic spine. [facility] Mrak Murrell MD - 12/06/2023 Patient Name: [facility]ITA [facility]ITH : 1935 [id number] Exam Date/Time: 12/06/2023 17:45 Procedure: CT CHEST ANGIOGRAM W AND/OR WO IV CONTRAST Ordering Provider: [facility] [place] Reason For Exam: Pulmonary embolism (PE) suspected, [...] MD Electronically Signed Date/Time: 12/06/2023 6:26 PM [facility] Radiology Study observation (narrative) [facility] CTA Chest vessels WO and W c ontrast IVOrdered By: Mark Murrell on 12-06-2023 [facility] [employer] Work Phone: Comprehensive metabolic 1998 panelon 12-06-2023 Albumin [Mass/Vol] 3.8 g/dL 3.5 - 5.0 g/dL [facility] ALP [Catalytic activity/Vol] 99 U/L 38 - 126 U/L [facility] ALT [Catalytic activity/Vol] 28 U/L 0 - 49 U/L [facility] Anion gap [Moles/Vol] 10 mmol/L 3 - 13 mmol/L [facility] AST [Catalytic activity/Vol] 29 U/L 15 - 46 U/L [facility] Bilirubin [Mass/Vol] 0.7 mg/dL 0.2 - 1 .3 mg/dL [facility] Calcium [Mass/Vol] 9.4 mg/dL 8.4 - 10. 4 mg/dL [facility] Chloride [Moles/Vol] 101 mmol/L 98 - 10 7 mmol/L [facility] CO2 [Moles/Vol] 25 mmol/L 22 - 30 mmol/L [facility] Creatinine [Mass/Vol] 1.35 mg/dL High 0.66 - 1.25 mg/dL [facility] GFR/1.73 sq M.predicted MDRD (S/P/Bld) [Vol rate/Area] 50.5 mL/min/{1.73_m2} Low - PINF [facility] Comment on above: Calculation based on the Chronic Kidney Disease Epidemiology Collaboration (CKD-EPI) equation refit without adjustment for race Glucose [Mass/Vol] 200 mg/dL High 70 - 100 mg/dL [facility] Interpretation and review of laboratory results Abnormal [facility] Potassium [Moles/Vol] 4.5 mmol/L 3.5 - 5.1 mmol/L [facility] Protein [Mass/Vol] 7.1 g/dL 6.3 - 8.2 g/dL [facility] Sodium [Moles/Vol] 136 mmol/L 135 - 145 mmol/L [facility] Urea nitrogen [Mass/Vol] 47 mg/dL High 9 - 20 mg/d L [facility] Laboratory - Chemistry and C hemistry - challengeon 12-06-2023 Troponin I.cardiac [Mass/Vol] 0.080 ng/mL High NINF - 0.034 ng/mL [facility] Troponin I.cardiac [Mass/Vol] 0.031 ng[facility]mL [facility] ng/mL [facility] Lactate [Moles/Vol] 1.4 mmol/L 0.7 - 2. 0 mmol/L [facility] - Microbiology an d Antimicrobial susceptibilityon 12-06-2023 FLUAV RNA LISANDRO+probe Ql (Resp) Not detected Not Detected [facility] FLUBV RNA LISANDRO+probe Ql (Resp) Not detected Not Detected [facility] RSV RNA LISANDRO+probe Ql (Resp) Detected Abnormal Not Detected [facility] SARS-CoV-2 (COVID-19) RNA LISANDRO+probe Ql (Resp) Not detected Not Detected [facility] SARS-CoV-2 (COVID-19) RNA LISANDRO+probe Ql (Unsp spec) Methodology: real-time, RT-PCR The SARS-CoV-2, Flu A/B, and RSV Combo assay is intended for in vitro diagnostic use under the FDA Emergency Use Authorization (EUA). This test has not been FDA cleared or approved. In compliance with this authorization, please visit www.fda.gov/media/24 4173/download or www.fda.gov/media/83 4255/download to access the applicable information sheets. [facility] No Panel Informationon 12-06 Interpretation and review of laboratory results Normal [facility] SARS-CoV-2, Flu A/B, and RSV Comboon 12-06-2023 Interpretation and review of laboratory results Abnormal [facility] Troponin I.cardiac [Mass/Vol ]on 12-06-2023 Interpretation and review of laboratory results Abnormal [facility] Patients with high levels of Biotin oral intake (ie >5 mg/day) may have falsely decreased Troponin levels. [facility] Interpretation and review of laboratory results Normal [facility] Patients with high levels of Biotin oral intake (ie >5 mg/day) may have falsely decreased Troponin levels. [facility] XR Chest Single viewon 12-06 No radiographic acute cardiopulmonary process. Report Dictated on Electronically Signed By: Iman Arriaga MD Electronically Signed Date/Time: 12/06/2023 4:36 PM [facility] Patient Name: TITA KEITH : 1935 Exam Date/Time: 12/06/2023 16:35 Procedure: XR CHEST 1 VIEW Ordering Provider: [facility] [place] Reason For Exam: pna INDICATION: 88-year-old male; pneumonia. VIEWS: Portable AP upright chest-one image COMPARISON: 09/10/2023 FINDINGS: Cardiac monitoring wires and leads are present. The trachea is midline. The cardiac silhouette is within normal limits. There is no confluent consolidation. [facility] Iman Arriaga MD - 12/06/2023 Patient Name: TITA KEITH : 1935 Exam Date/Time: 12/06/2023 16:35 Procedure: XR CHEST 1 VIEW Ordering Provider: [facility] [place] Reason For Exam: pna INDICATION: 88-year-old male; pneumonia. VIEWS: Portable AP upright chest-one image COMPARISON: 09/10/2023 FINDINGS: Cardiac monitoring wires and leads are present. The trachea is midline. The cardiac silhouette is within normal limits. There is no confluent consolidation. IMPRESSION: No radiographic acute cardiopulmonary process. Report Dictated on Electronically Signed By: Iman Arriaga MD Electronically Signed Date/Time: 12/06/2023 4:36 PM [facility] Radiology Study observation (narrative) [facility] XR Chest Single viewOrdered By: Iman Arriaga on 12-06-2023 [facility] Work Phone: Basophil percentageOrdered B y: Javy Deperro on 12-05-2023 Bilirubin [Mass/Vol] 0.50 mg/dL 0.20-1.00 [facility] Comment on above: For patients on eltr ombopag therapy, use of Dimension [place] TBIL is not recommended. Chloride [Moles/Vol] 107 mmol/L 98-107 [facility] Glucose [Mass/Vol] 109 mg/dL 74-106 [facility] Comment on above: Fasting Glucose resu lt from 100 to 125 mg/dL suggests IMPAIRED HOMEOSTASIS per A.D.A. criteria. Hemoglobin (Bld) [Mass/Vol] 12.2 g/dL 13.0-16.5 [facility] Potassium [Moles/Vol] 4.6 mmol/L 3.5-5.1 [facility] Comment on above: Slight Hemolysis, Re sult may be falsely increased. Protein [Mass/Vol] 6.8 g/dL 6.4-8.2 [facility] Sodium [Moles/Vol] 140 mmol/L 136-145 [facility] WBC (Bld) [#/Vol] 7.0 10*3/uL 4.4-11.0 [facility] Determination of erythrocyte mean corpuscular volume (MCV)Ordered By: Javy Lynn on 12-05-2023 MCV (RBC) [Entitic vol] 91.2 fL 80-94 [facility] Erythrocyte distribution wid th ratioOrdered By: Javy Lynn on 12-05-2023 Erythrocyte distribution width (RBC) [Ratio] 13.2 % 11.6-14.6 [facility] Erythrocyte distribution wid th standard deviationOrdered By: Javy Lynn on 12-05-2023 Erythrocyte distribution width (RBC) [Entitic vol] 44.0 fL 35.1-43.9 [facility] Hematocrit Auto (Bld) [Volum e fraction]Ordered By: Javy Lynn on 12-05-2023 Hematocrit (Bld) [Volume fraction] 37.4 % 40-54 [facility] Laboratory - Chemistry and C hemistry - challengeOrdered By: Javy Lynn on 12-05-2023 Albumin/Globulin [Mass ratio] 0.8 {ratio} 0.9-2.4 [facility] ALP [Catalytic activity/Vol] 114 U/L 45-117 [facility] ALT [Catalytic activity/Vol] 32 U/L 16-61 [facility] CO2 [Moles/Vol] 25.0 mmol/L 21.0-32.0 [facility] Globulin (S) [Mass/Vol] 3.7 g/dL 2.2-4.2 [facility] Urea nitrogen/Creatinine [Mass ratio] 33.1 mg/mg 10-20 [facility] Laboratory - Hematology and Cell countsOrdered By: Javy Lynn on 12-05-2023 MCH (RBC) [Entitic mass] 29.8 pg 27.0-32.0 [facility] MCHC (RBC) [Mass/Vol] 32.6 g/dL 32-36 [facility] Platelet mean volume (Bld) [Entitic vol] 11.9 fL 6.2-12.0 [facility] Platelets (Bld) [#/Vol] 138 10*3/uL 150-450 [facility] No Panel InformationOrdered By: Javy Lynn on 12-05-2023 Estimated GFR (MDRD) Amer 73 mL/min >60 [facility] Comment on above: GFR Calc Estimated GFR (MDRD) Non-Af Amer 60 mL/min >60 [facility] Comment on above: Non- GFR Calc RBC Auto (Bld) [#/Vol]Ordere d By: Javy Lynn on 12-05-2023 RBC (Bld) [#/Vol] 4.10 10*6/uL 4.6-6.2 [facility] Serum or plasma calcium saud urement (mass/volume)Ordered By: Javy Lynn on 12-05-2023 Calcium [Mass/Vol] 9.4 mg/dL 8.5-10.1 [facility] Serum or plasma creatinine m easurement (mass/volume)Ordered By: Javy Lynn on 12-05-2023 Creatinine [Mass/Vol] 1.21 mg/dL 0.70-1.30 [facility] Comment on above: The validity of the calculated GFR & GFRAA in patients over 70 years has not been determined. Clinical correlation is essential. Serum or plasma urea nitroge n measurement (mass/volume)Ordered By: Javy Lynn on 12-05-2023 Urea nitrogen [Mass/Vol] 40 mg/dL 7-18 [facility] Thin prep Papanicolaou smear with manual screeningOrdered By: Javy Lynn on 12-05-2023 Thin prep Papanicolaou smear with manual screening 3.1 g/dL 3.2-5.0 [facility] Thin prep Papanicolaou smear with manual screening 26 U/L 15-37 [facility] Comment on above: Slight Hemolysis, Re sult may be falsely increased. Thin prep Papanicolaou smear with manual screening 8 5-15 [facility] Basophil percentageOrdered B y: Javy Lynn on 11-02-2023 Basophil percentage 10-25 SEEN /hpf 0-5 [facility] Bilirubin Test strip Ql (U)O rdered By: Javy Lynn on 11-02-2023 Bilirubin Ql (U) Negative Negative [facility] Culture, urineOrdered By: Manzanares on 11-02-2023 Bacteria identified Cx Nom (U) Enterococcus faecalis [facility] Bacteria identified Cx Nom (U) Corynebacterium striatum [facility] Bacteria identified Cx Nom (U) Staphylococcus simulans [facility] Ketones Test strip Ql (U)Ord ered By: Javy Lynn on 11-02-2023 Ketones Ql (U) Negative Negative [facility] Mucus LM Ql (Urine sed)Order ed By: Javy Lynn on 11-02-2023 Mucus Ql (Urine sed) 0 SEEN /hpf [facility] Nitrite Test strip Ql (U)Ord ered By: Javy Lynn on 11-02-2023 Nitrite Ql (U) Negative Negative [facility] Protein Test strip Ql (U)Ord ered By: Javy Lynn on 11-02-2023 Protein Ql (U) 15 mg/dl Negative [facility] Squamous epithelial cells de tection in urine sediment by light microscopyOrdered By: Javy Lynn on 11-02-2023 Epithelial cells.squamous LM Ql (Urine sed) 0 SEEN /hpf 0-5 [facility] Urine blood detectionOrdered By: Javy Lynn on 11-02-2023 RBC Ql (U) 10 /ul Negative [facility] RBC Ql (U) 0 SEEN /hpf 0-5 [facility] Urine clarityOrdered By: Sunitha Lynn on 11-02-2023 Clarity (U) Clear Clear [facility] Urine color determinationOrd ered By: Javy Lynn on 11-02-2023 Color (U) Yellow Yellow [facility] Urine glucose detectionOrder ed By: Javy Lynn on 11-02-2023 Glucose Ql (U) Normal mg/dl Normal [facility] Urine leukocyte esterase det ection by dipstickOrdered By: Javy Lynn on 11-02-2023 Leukocyte esterase Test strip Ql (U) 100 /ul Negative [facility] Urine pHOrdered By: Javy gordon on 11-02-2023 pH (U) 6.5 [pH] 5.0 - 8.0 [facility] Urine sediment bacteria coun t by microscopy (number/high power field)Ordered By: Javy Lynn on 11-02-2023 Bacteria LM.HPF (Urine sed) [#/Area] 1 /[HPF] None Seen [facility] Urine specific gravity measu rementOrdered By: Javy Lynn on 11-02-2023 Specific gravity (U) [Rel density] 1.015 1.002-1.030 [facility] Urobilinogen Auto test strip Ql (U)Ordered By: Javy Lynn on 11-02-2023 Urobilinogen Ql (U) Normal mg/dl Normal [facility] Whole blood hemoglobin A1c/t otal hemoglobin ratio (mass fraction)Ordered By: Javy Lynn on 10-01-2023 HbA1c (Bld) [Mass fraction] 8.0 % 3.8-5.6 [facility] Comment on above: Normal < 5.7 % Predi abetic 5.7 - 6.4 % Diabetic >or= 6.5 % Please note range changes. Basophil percentageOrdered B y: Javy Lynn on 09-25-2023 Bilirubin [Mass/Vol] 0.50 mg/dL 0.20-1.00 [facility] Comment on above: For patients on eltr ombopag therapy, use of Dimension [place] TBIL is not recommended. Chloride [Moles/Vol] 104 mmol/L 98-107 [facility] Glucose [Mass/Vol] 63 mg/dL 74-106 [facility] Potassium [Moles/Vol] 4.1 mmol/L 3.5-5.1 [facility] Comment on above: Slight Hemolysis, Re sult may be falsely increased. Protein [Mass/Vol] 6.2 g/dL 6.4-8.2 [facility] Sodium [Moles/Vol] 137 mmol/L 136-145 [facility] WBC (Bld) [#/Vol] 4.6 10*3/uL 4.4-11.0 [facility] Blood erythrocytes count (nu mber/volume)Ordered By: Javy Lynn on 09-25-2023 RBC (Bld) [#/Vol] 4.37 10*6/uL 4.6-6.2 [facility] Blood hemoglobin measurement (mass/volume)Ordered By: Javy Lynn on 09-25-2023 Hemoglobin (Bld) [Mass/Vol] 12.7 g/dL 13.0-16.5 [facility] Blood platelet mean volumeOr dered By: Javy Lynn on 09-25-2023 Platelet mean volume (Bld) [Entitic vol] 11.9 fL 6.2-12.0 [facility] Determination of erythrocyte mean corpuscular volume (MCV)Ordered By: Javy Lynn on 09-25-2023 MCV (RBC) [Entitic vol] 91.8 fL 80-94 [facility] Hematocrit Auto (Bld) [Volum e fraction]Ordered By: Javy Lynn on 09-25-2023 Hematocrit (Bld) [Volume fraction] 40.1 % 40-54 [facility] Laboratory - Chemistry and C hemistry - challengeOrdered By: Javy Lynn on 09-25-2023 ALP [Catalytic activity/Vol] 110 U/L 45-117 [facility] ALT [Catalytic activity/Vol] 19 U/L 16-61 [facility] CO2 [Moles/Vol] 29.0 mmol/L 21.0-32.0 [facility] Globulin (S) [Mass/Vol] 3.5 g/dL 2.2-4.2 [facility] Urea nitrogen/Creatinine [Mass ratio] 29.8 mg/mg 10-20 [facility] Laboratory - Hematology and Cell countsOrdered By: Javy Lynn on 09-25-2023 Erythrocyte distribution width (RBC) [Entitic vol] 43.8 fL 35.1-43.9 [facility] Erythrocyte distribution width (RBC) [Ratio] 13.2 % 11.6-14.6 [facility] MCH (RBC) [Entitic mass] 29.1 pg 27.0-32.0 [facility] MCHC Auto (RBC) [Mass/Vol]Or dered By: Javy Lynn on 09-25-2023 MCHC (RBC) [Mass/Vol] 31.7 g/dL 32-36 [facility] No Panel InformationOrdered By: Javy Lynn on 09-25-2023 Estimated GFR (MDRD) Amer 66 mL/min >60 [facility] Comment on above: GFR Calc Estimated GFR (MDRD) Non-Af Amer 55 mL/min >60 [facility] Comment on above: Non- GFR Calc Platelets bldOrdered By: Sunitha Lynn on 09-25-2023 Platelets (Bld) [#/Vol] 225 10*3/uL 150-450 [facility] Serum or plasma albumin saud urement (mass/volume)Ordered By: Javy Lynn on 09-25-2023 Albumin [Mass/Vol] 2.7 g/dL 3.2-5.0 [facility] Serum or plasma albumin/glob ulin mass ratioOrdered By: Javy Lynn on 09-25-2023 Albumin/Globulin [Mass ratio] 0.8 {ratio} 0.9-2.4 [facility] Serum or plasma calcium saud urement (mass/volume)Ordered By: Javy Lynn on 09-25-2023 Calcium [Mass/Vol] 9.2 mg/dL 8.5-10.1 [facility] Serum or plasma creatinine m easurement (mass/volume)Ordered By: Javy Lynn on 09-25-2023 Creatinine [Mass/Vol] 1.31 mg/dL 0.70-1.30 [facility] Comment on above: The validity of the calculated GFR & GFRAA in patients over 70 years has not been determined. Clinical correlation is essential. Serum or plasma urea nitroge n measurement (mass/volume)Ordered By: Javy Lynn on 09-25-2023 Urea nitrogen [Mass/Vol] 39 mg/dL 7-18 [facility] Thin prep Papanicolaou smear with manual screeningOrdered By: Javy Lynn on 09-25-2023 Thin prep Papanicolaou smear with manual screening 16 U/L 15-37 [facility] Comment on above: Slight Hemolysis, Re sult may be falsely increased. Thin prep Papanicolaou smear with manual screening 4 5-15 [facility] Laboratory - Chemistry and C hemistry - challengeon 09-19-2023 Glucose [Mass/Vol] 236 mg/dL High 70 - 100 mg/dL [facility] No Panel Informationon 09-19 Interpretation and review of laboratory results Abnormal [facility]formed by: [facility], [address] [facility] [address] CLIA ID: [id number] [facility] Laboratory - Chemistry and C hemistry - challengeon 09-18-2023 Glucose [Mass/Vol] 155 mg/dL High 70 - 100 mg/dL [facility] Glucose [Mass/Vol] 169 mg/dL High 70 - 100 mg/dL [facility] Glucose [Mass/Vol] 282 mg/dL High 70 - 100 mg/dL [facility] Glucose [Mass/Vol] 124 mg/dL High 70 - 100 mg/dL [facility] No Panel Informationon 09-18 Interpretation and review of laboratory results Abnormal [facility] Performed by: [facility], [address] [place] [address] CLIA ID: [id number] [facility] Interpretation and review of laboratory results Abnormal [facility] Performed by: [facility], [address] [facility] [address] CLIA ID: [id number] [facility] Interpretation and review of laboratory results Abnormal [facility] Performed by: [facility], [address] [place] [place] [address] CLIA ID: [id number] [facility] Interpretation and review of laboratory results Abnormal [facility] Performed by: [facility], [address] [facility] [address] CLIA ID: [id number] [facility] Basic metabolic 1998 panelon 09-17-2023 Anion gap [Moles/Vol] 6 mmol/L 3 - 13 mmol/L [facility] Calcium [Mass/Vol] 9.2 mg/dL 8.4 - 10. 4 mg/dL [facility] Chloride [Moles/Vol] 109 mmol/L High 98 - 10 7 mmol/L [facility] CO2 [Moles/Vol] 25 mmol/L 22 - 30 mmol/L [facility] Creatinine [Mass/Vol] 0.95 mg/dL 0.66 - 1.25 mg/dL [facility] GFR/1.73 sq M.predicted MDRD (S/P/Bld) [Vol rate/Area] 77.5 mL/min/{1.73_m2} - PINF [facility] Comment on above: Calculation based on the Chronic Kidney Disease Epidemiology Collaboration (CKD-EPI) equation refit without adjustment for race Glucose [Mass/Vol] 50 mg/dL Low 70 - 100 mg/dL [facility] Interpretation and review of laboratory results Abnormal [facility] Potassium [Moles/Vol] 3.1 mmol/L Low 3.5 - 5.1 mmol/L [facility] Sodium [Moles/Vol] 140 mmol/L 135 - 145 mmol/L [facility] Urea nitrogen [Mass/Vol] 37 mg/dL High 9 - 20 mg/d L [facility] CBC panel Auto (Bld)Ordered By: Davina Ramos on 09-17-2023 Erythrocyte distribution width (RBC) [Ratio] 14.0 % 11.5 - 14.5 % [facility] Hematocrit (Bld) [Volume fraction] 39.5 % Low 40.0 - 52.0 % [facility] Hemoglobin (Bld) [Mass/Vol] 13.7 g/dL 13.0 - 18.0 g/dL [facility] Interpretation and review of laboratory results Abnormal [facility] MCH (RBC) [Entitic mass] 29.9 pg 26. 0 - 34.0 pg [facility] MCHC (RBC) [Mass/Vol] 34.6 % 32.0 - 36.0 % [facility] MCV (RBC) [Entitic vol] 86.4 fL 80.0 - 98.0 fL [facility] Platelet mean volume (Bld) [Entitic vol] 8.9 fL 7.4 - 12.4 fL [facility] Platelets (Bld) [#/Vol] 182 10*3/uL 140 - 440 10*3/uL [facility] RBC (Bld) [#/Vol] 4.57 10*6/uL 4.40 - 5.9 0 10*6/uL [facility] WBC (Bld) [#/Vol] 7.0 10*3/uL 3.6 - 10.7 10*3/uL [facility] Laboratory - Chemistry and C hemistry - challengeon 09-17-2023 Glucose [Mass/Vol] 238 mg/dL High 70 - 100 mg/dL [facility] Glucose [Mass/Vol] 126 mg/dL High 70 - 100 mg/dL [facility] Glucose [Mass/Vol] 257 mg/dL High 70 - 100 mg/dL [facility] Glucose [Mass/Vol] 287 mg/dL High 70 - 100 mg/dL [facility] Glucose [Mass/Vol] 235 mg/dL High 70 - 100 mg/dL [facility] Glucose [Mass/Vol] 82 mg/dL 70 - 100 mg/dL [facility] Glucose [Mass/Vol] 65 mg/dL Low 70 - 100 mg/dL [facility] Glucose [Mass/Vol] 58 mg/dL Low 70 - 100 mg/dL [facility] Average glucose Estimated from glycated hemoglobin (Bld) [Mass/Vol] 174 mg/dL [facility] Laboratory - Hematology and Cell countson 09-17-2023 HbA1c (Bld) [Mass fraction] 7.7 % High NINF - 5.7 % [facility] Comment on above: Normal less than 5.7 % Prediabetes 5.7% to 6.4% Diabetes 6.5% or higher --HgbA1C levels may not be accurate in patients who have renal disease, received recent blood transfusions, are anemic, or who have dyshemoglobinemia. No Panel Informationon 09-17 Interpretation and review of laboratory results Abnormal [facility] Performed by: [facility], [address] [place] [address] CLIA ID: [id number] [facility] Interpretation and review of laboratory results Abnormal [facility] Performed by: [facility], [address] [place] [address] CLIA ID: [id number] [facility] No evidence of deep vein or [...] showed phasic, spontaneous and somewhat pulsatile flow. Contractor Buyer Details A rodriguez scale, color Doppler imaging, [...] Interpretation and review of laboratory results Abnormal [facility] Performed by: [facility], [address] [place] [place] [address] CLIA ID: [id number] [facility] Interpretation and review of laboratory results Abnormal [facility] Performed by: [facility], [address] [place] [address] CLIA ID: [id number] [facility] Interpretation and review of laboratory results Abnormal [facility] Performed by: [facility], [address] [place] [place] [address] CLIA ID: [id number] [facility] Interpretation and review of laboratory results Normal [facility] Performed by: [facility], [address] [place] [address] CLIA ID: [id number] [facility] Interpretation and review of laboratory results Abnormal [facility] Performed by: [facility], [address] [place] [address] CLIA ID: [id number] [facility] Interpretation and review of laboratory results Abnormal [facility] Performed by: [facility], [address] [place] [address] CLIA ID: [id number] [facility] Interpretation and review of laboratory results Abnormal [facility] SARS-CoV-2 (COVID-19) RNA pa zabrina LISANDRO+probe (Resp)Ordered By: Katelyn Vail on 09-17-2023 Interpretation and review of laboratory results Abnormal [facility] SARS-CoV-2 (COVID-19) RNA LISANDRO+probe Ql (Resp) Detected Abnormal Not Detected [facility] SARS-CoV-2 (COVID-19) RNA LISANDRO+probe Ql (Unsp spec) Methodology: real-time, RT-PCR The SARS-CoV-2 assay is intended for in vitro diagnostic use under the FDA Emergency Use Authorization (EUA). This test has not been FDA cleared or approved. In compliance with this authorization, please visit www.fda.gov/media/00 4011/download or www.Pet [employer] Quotes.gov/ecomom/ 6552/download to access the applicable information sheets. [facility] Bacteria identified Cx Nom ( Bld)on 09-16-2023 Interpretation and review of laboratory results Normal [facility] Blood Collection Site: Left Arm [facility] Laboratory - Chemistry and C hemistry - challengeon 09-16-2023 Glucose [Mass/Vol] mg/dL High 70 - 100 mg/dL [facility] Comment on above: Caregiver Notified; Glucose [Mass/Vol] 405 mg/dL High 70 - 100 mg/dL [facility] Laboratory - Microbiology an d Antimicrobial susceptibilityon 09-16-2023 Bacteria identified Cx Nom (Bld) No growth at 5 days [facility] No Panel Informationon 09-16 Interpretation and review of laboratory results Abnormal [facility] Performed by: [facility], [address] [facility] [address] CLIA ID: [id number] [facility] Interpretation and review of laboratory results Abnormal [facility] Performed by: [facility], [address] [facility] [address] CLIA ID: [id number] [facility] Laboratory - Chemistry and C hemistry - challengeon 09-15-2023 Glucose [Mass/Vol] 334 mg/dL High 70 - 100 mg/dL [facility] Glucose [Mass/Vol] 320 mg/dL High 70 - 100 mg/dL [facility] No Panel Informationon 09-15 Interpretation and review of laboratory results Abnormal [facility] Performed by: [facility], [address] [facility] [address] CLIA ID: [id number] [facility] Interpretation and review of laboratory results Abnormal [facility] Performed by: [facility], [address] [facility] [address] CLIA ID: [id number] [facility] CBC W Auto Differential pane l (Bld)Ordered By: Pérez Holm on 09-14-2023 Basophils (Bld) [#/Vol] 0.0 10*3/uL 0.0 - 0.2 10*3/uL [facility] Basophils/100 WBC (Bld) 0.1 % 0.0 - 2.0 % [facility] Eosinophils (Bld) [#/Vol] 0.0 10*3/uL 0.0 - 0.5 10*3/uL [facility] Eosinophils/100 WBC (Bld) 0.0 % Low 1.0 - 6.0 % [facility] Erythrocyte distribution width (RBC) [Ratio] 14.2 % 11.5 - 14.5 % [facility] Hematocrit (Bld) [Volume fraction] 41.7 % 40.0 - 52.0 % [facility] Hemoglobin (Bld) [Mass/Vol] 14.1 g/dL 13.0 - 18.0 g/dL [facility] Interpretation and review of laboratory results Abnormal [facility] Lymphocytes (Bld) [#/Vol] 0.6 10*3/uL Low 1.0 - 4.3 10*3/uL [facility] Lymphocytes/100 WBC (Bld) 11.0 % Low 20.0 - 40.0 % [facility] MCH (RBC) [Entitic mass] 29.4 pg 26. 0 - 34.0 pg [facility] MCHC (RBC) [Mass/Vol] 33.7 % 32.0 - 36.0 % [facility] MCV (RBC) [Entitic vol] 87.4 fL 80.0 - 98.0 fL [facility] Monocytes (Bld) [#/Vol] 0.2 10*3/uL 0.0 - 0.8 10*3/uL [facility] Monocytes/100 WBC (Bld) 3.9 % 2.0 - 10.0 % [facility] Neutrophils (Bld) [#/Vol] 4.5 10*3/uL 1.8 - 7.0 10*3/uL [facility] Neutrophils/100 WBC (Bld) 85.0 % High 40.0 - 80.0 % [facility] Nucleated RBC/100 WBC (Bld) [Ratio] 0.1 % [facility] Platelet mean volume (Bld) [Entitic vol] 9.6 fL 7.4 - 12.4 fL [facility] Platelets (Bld) [#/Vol] 133 10*3/uL Low 140 - 440 10*3/uL [facility] RBC (Bld) [#/Vol] 4.77 10*6/uL 4.40 - 5.9 0 10*6/uL [facility] WBC (Bld) [#/Vol] 5.3 10*3/uL 3.6 - 10.7 10*3/uL [facility] CRP [Mass/Vol]on 09-14-2023 Interpretation and review of laboratory results Abnormal [facility] Laboratory - Chemistry and C hemistry - challengeon 09-14-2023 Glucose [Mass/Vol] 263 mg/dL High 70 - 100 mg/dL [facility] Glucose [Mass/Vol] 279 mg/dL High 70 - 100 mg/dL [facility] Glucose [Mass/Vol] 262 mg/dL High 70 - 100 mg/dL [facility] Glucose [Mass/Vol] 238 mg/dL High 70 - 100 mg/dL [facility] CRP [Mass/Vol] 60.0 mg/L High NINF - 10.0 mg/L [facility] No Panel Informationon 09-14 Interpretation and review of laboratory results Abnormal [facility] Performed by: [facility], [address] [place] [address] CLIA ID: [id number] [facility] Interpretation and review of laboratory results Abnormal [facility] Performed by: [facility], [address] [place] [address] CLIA ID: [id number] [facility] Interpretation and review of laboratory results Abnormal [facility] Performed by: [facility], [address] [place] [address] CLIA ID: [id number] [facility] Interpretation and review of laboratory results Abnormal [facility] Performed by: [facility], [address] [place] [address] CLIA ID: [id number] [facility] Bacteria identified Aer cx N om (Lower resp)Ordered By: Loy Alcantar on 09-13-2023 Gram Stain Result Many Polymorphonuclear leukocytes per low power field Abnormal [facility] Gram Stain Result Few Epithelial cells per low power field Abnormal [facility] Gram Stain Result Positive Abnormal [facility] Gram Stain Result Negative Abnormal [facility] Interpretation and review of laboratory results Abnormal [facility] Bacteria identified Cx Nom ( Bld)Ordered By: Lexi Pineda on 09-13-2023 Interpretation and review of laboratory results Abnormal [facility] Blood Collection Site: Right Arm [facility] CBC W Auto Differential pane l (Bld)on 09-13-2023 Basophils (Bld) [#/Vol] 0.0 10*3/uL 0.0 - 0.2 10*3/uL [facility] Basophils/100 WBC (Bld) 0.1 % 0.0 - 2.0 % [facility] Eosinophils (Bld) [#/Vol] 0.0 10*3/uL 0.0 - 0.5 10*3/uL [facility] Eosinophils/100 WBC (Bld) 0.0 % Low 1.0 - 6.0 % [facility] Erythrocyte distribution width (RBC) [Ratio] 14.1 % 11.5 - 14.5 % [facility] Hematocrit (Bld) [Volume fraction] 37.1 % Low 40.0 - 52.0 % [facility] Hemoglobin (Bld) [Mass/Vol] 12.5 g/dL Low 13.0 - 18.0 g/dL [facility] Interpretation and review of laboratory results Abnormal [facility] Lymphocytes (Bld) [#/Vol] 0.5 10*3/uL Low 1.0 - 4.3 10*3/uL [facility] Lymphocytes/100 WBC (Bld) 10.6 % Low 20.0 - 40.0 % [facility] MCH (RBC) [Entitic mass] 29.7 pg 26. 0 - 34.0 pg [facility] MCHC (RBC) [Mass/Vol] 33.8 % 32.0 - 36.0 % [facility] MCV (RBC) [Entitic vol] 88.0 fL 80.0 - 98.0 fL [facility] Monocytes (Bld) [#/Vol] 0.1 10*3/uL 0.0 - 0.8 10*3/uL [facility] Monocytes/100 WBC (Bld) 1.9 % Low 2.0 - 10.0 % [facility] Neutrophils (Bld) [#/Vol] 4.1 10*3/uL 1.8 - 7.0 10*3/uL [facility] Neutrophils/100 WBC (Bld) 87.4 % High 40.0 - 80.0 % [facility] Nucleated RBC/100 WBC (Bld) [Ratio] 0.2 % [facility] Platelet mean volume (Bld) [Entitic vol] 10.2 fL 7.4 - 12.4 fL [facility] Platelets (Bld) [#/Vol] 115 10*3/uL Low 140 - 440 10*3/uL [facility] RBC (Bld) [#/Vol] 4.21 10*6/uL Low 4.40 - 5.9 0 10*6/uL [facility] WBC (Bld) [#/Vol] 4.7 10*3/uL 3.6 - 10.7 10*3/uL [facility] CRP [Mass/Vol]on 09-13-2023 Interpretation and review of laboratory results Abnormal [facility] Comprehensive metabolic 1998 panelon 09-13-2023 Albumin [Mass/Vol] 3.3 g/dL Low 3.5 - 5.0 g/dL [facility] ALP [Catalytic activity/Vol] 81 U/L 38 - 126 U/L [facility] ALT [Catalytic activity/Vol] 40 U/L 0 - 49 U/L [facility] Anion gap [Moles/Vol] 6 mmol/L 3 - 13 mmol/L [facility] AST [Catalytic activity/Vol] 45 U/L 15 - 46 U/L [facility] Bilirubin [Mass/Vol] 0.5 mg/dL 0.2 - 1 .3 mg/dL [facility] Calcium [Mass/Vol] 8.7 mg/dL 8.4 - 10. 4 mg/dL [facility] Chloride [Moles/Vol] 106 mmol/L 98 - 10 7 mmol/L [facility] CO2 [Moles/Vol] 25 mmol/L 22 - 30 mmol/L [facility] Creatinine [Mass/Vol] 0.89 mg/dL 0.66 - 1.25 mg/dL [facility] GFR/1.73 sq M.predicted MDRD (S/P/Bld) [Vol rate/Area] 82.9 mL/min/{1.73_m2} - PINF [facility] Comment on above: Calculation based on the Chronic Kidney Disease Epidemiology Collaboration (CKD-EPI) equation refit without adjustment for race Glucose [Mass/Vol] 296 mg/dL High 70 - 100 mg/dL [facility] Interpretation and review of laboratory results Abnormal [facility] Potassium [Moles/Vol] 4.0 mmol/L 3.5 - 5.1 mmol/L [facility] Protein [Mass/Vol] 6.4 g/dL 6.3 - 8.2 g/dL [facility] Sodium [Moles/Vol] 136 mmol/L 135 - 145 mmol/L [facility] Urea nitrogen [Mass/Vol] 39 mg/dL High 9 - 20 mg/d L [facility] Laboratory - Chemistry and C hemistry - challengeon 09-13-2023 Glucose [Mass/Vol] 229 mg/dL High 70 - 100 mg/dL [facility] Glucose [Mass/Vol] 275 mg/dL High 70 - 100 mg/dL [facility] Glucose [Mass/Vol] 291 mg/dL High 70 - 100 mg/dL [facility] Glucose [Mass/Vol] 306 mg/dL High 70 - 100 mg/dL [facility] CRP [Mass/Vol] 80.7 mg/L High NINF - 10.0 mg/L [facility] Laboratory - Microbiology an d Antimicrobial susceptibilityOrdered By: Loy Alcantar on 09-13-2023 Bacteria identified Aer cx Nom (Lower resp) Many respiratory ro[place] present. [facility] Laboratory - Microbiology an d Antimicrobial susceptibilityOrdered By: Lexi Pineda on 09-13-2023 Bacteria identified Cx Nom (Bld) Staphylococcus epidermidis Critically abnormal [facility] Comment on above: Contamination likely unless additional blood culture sets are found to be positive with the same organism. This is an edited result. Previous organism was Gram-positive cocci on 09/12/2023 at 0502 EST. No Panel Informationon 09-13 Interpretation and review of laboratory results Abnormal [facility] Performed by: [facility], [address] [place] [address] CLIA ID: [id number] [facility] Interpretation and review of laboratory results Abnormal [facility] Performed by: [facility], [address] [place] [address] CLIA ID: [id number] [facility] Interpretation and review of laboratory results Abnormal [facility] Performed by: [facility], [address] [place] [address] CLIA ID: [id number] [facility] Interpretation and review of laboratory results Abnormal [facility] Performed by: [facility], [address] [place] [address] CLIA ID: [id number] [facility] Urinalysis complete panel (U )Ordered By: Brinana Stokes on 09-13-2023 Bacteria LM.HPF (Urine sed) [#/Area] Moderate Abnormal Negative /HPF [facility] Bilirubin Ql (U) Negative Negative mg/dL [facility] Clarity (U) Clear Clear [facility] Color (U) Light Yellow Lt. Yellow [facility] Epithelial cells.squamous LM.HPF (Urine sed) [#/Area] Negative [facility] h Glucose Ql (U) >1,000 Abnormal Normal (<70) mg/dL [facility] Hemoglobin Ql (U) >1.0 Abnormal Negative mg/dL [facility] Interpretation and review of laboratory results Abnormal [facility] Ketones (U) [Mass/Vol] Negative Negat kate mg/dL [facility] Leukocyte esterase Test strip Ql (U) 25 Abnormal Negative Rosales/uL [facility] Nitrite Ql (U) Negative Negative [facility] th pH (U) 5.5 [pH] 5.0 - 8.0 pH [facility] Protein (U) [Mass/Vol] 30 mg/dL Abnormal Negative [facility] RBC LM.HPF (Urine sed) [#/Area] 51-100 Abnormal [facility] Specific gravity (U) [Rel density] 1.022 1.005 - 1.030 [facility] Urobilinogen (U) [Mass/Vol] Normal Normal (0-1) mg/dL [facility] WBC LM.HPF (Urine sed) [#/Area] 11-25 Abnormal [facility] CBC W Auto Differential pane l (Bld)Ordered By: Osman Cadena on 09-12-2023 Basophils (Bld) [#/Vol] 0.0 10*3/uL 0.0 - 0.2 10*3/uL [facility] Basophils/100 WBC (Bld) 0.3 % 0.0 - 2.0 % [facility] Eosinophils (Bld) [#/Vol] 0.0 10*3/uL 0.0 - 0.5 10*3/uL [facility] Eosinophils/100 WBC (Bld) 0.0 % Low 1.0 - 6.0 % [facility] Erythrocyte distribution width (RBC) [Ratio] 14.4 % 11.5 - 14.5 % [facility] Hematocrit (Bld) [Volume fraction] 34.6 % Low 40.0 - 52.0 % [facility] Hemoglobin (Bld) [Mass/Vol] 11.9 g/dL Low 13.0 - 18.0 g/dL [facility] Interpretation and review of laboratory results Abnormal [facility] Lymphocytes (Bld) [#/Vol] 0.5 10*3/uL Low 1.0 - 4.3 10*3/uL [facility] Lymphocytes/100 WBC (Bld) 11.2 % Low 20.0 - 40.0 % [facility] MCH (RBC) [Entitic mass] 30.1 pg 26. 0 - 34.0 pg [facility] MCHC (RBC) [Mass/Vol] 34.4 % 32.0 - 36.0 % [facility] MCV (RBC) [Entitic vol] 87.6 fL 80.0 - 98.0 fL [facility] Monocytes (Bld) [#/Vol] 0.1 10*3/uL 0.0 - 0.8 10*3/uL [facility] Health Monocytes/100 WBC (Bld) 2.2 % 2.0 - 10.0 % [facility] Neutrophils (Bld) [#/Vol] 4.2 10*3/uL 1.8 - 7.0 10*3/uL [facility] Neutrophils/100 WBC (Bld) 86.3 % High 40.0 - 80.0 % [facility] Nucleated RBC/100 WBC (Bld) [Ratio] 0.1 % [facility] Platelet mean volume (Bld) [Entitic vol] 9.3 fL 7.4 - 12.4 fL [facility] Platelets (Bld) [#/Vol] 96 10*3/uL Low 140 - 440 10*3/uL [facility] RBC (Bld) [#/Vol] 3.95 10*6/uL Low 4.40 - 5.9 0 10*6/uL [facility] WBC (Bld) [#/Vol] 4.8 10*3/uL 3.6 - 10.7 10*3/uL [facility] CRP [Mass/Vol]on 09-12-2023 Interpretation and review of laboratory results Abnormal [facility] Comprehensive metabolic 1998 panelon 09-12-2023 Albumin [Mass/Vol] 3.3 g/dL Low 3.5 - 5.0 g/dL [facility] ALP [Catalytic activity/Vol] 79 U/L 38 - 126 U/L [facility] ALT [Catalytic activity/Vol] 48 U/L 0 - 49 U/L [facility] Anion gap [Moles/Vol] 5 mmol/L 3 - 13 mmol/L [facility] AST [Catalytic activity/Vol] 70 U/L High 15 - 46 U/L [facility] Bilirubin [Mass/Vol] 0.4 mg/dL 0.2 - 1 .3 mg/dL [facility] Calcium [Mass/Vol] 8.2 mg/dL Low 8.4 - 10. 4 mg/dL [facility] Chloride [Moles/Vol] 107 mmol/L 98 - 10 7 mmol/L [facility] CO2 [Moles/Vol] 23 mmol/L 22 - 30 mmol/L [facility] Creatinine [Mass/Vol] 1.06 mg/dL 0.66 - 1.25 mg/dL [facility] GFR/1.73 sq M.predicted MDRD (S/P/Bld) [Vol rate/Area] 67.9 mL/min/{1.73_m2} - PINF [facility] Comment on above: Calculation based on the Chronic Kidney Disease Epidemiology Collaboration (CKD-EPI) equation refit without adjustment for race Glucose [Mass/Vol] 254 mg/dL High 70 - 100 mg/dL [facility] Interpretation and review of laboratory results Abnormal [facility] Potassium [Moles/Vol] 4.4 mmol/L 3.5 - 5.1 mmol/L [facility] Protein [Mass/Vol] 6.5 g/dL 6.3 - 8.2 g/dL [facility] Sodium [Moles/Vol] 135 mmol/L 135 - 145 mmol/L [facility] Urea nitrogen [Mass/Vol] 45 mg/dL High 9 - 20 mg/d L [facility] Laboratory - Chemistry and C hemistry - challengeon 09-12-2023 Glucose [Mass/Vol] 272 mg/dL High 70 - 100 mg/dL [facility] CRP [Mass/Vol] 193.8 mg/L High NINF - 10.0 mg/L [facility] No Panel Informationon 09-12 Interpretation and review of laboratory results Abnormal [facility]formed by: [facility], [address] [place] [address] CLIA ID: [id number] [facility] No Panel InformationOrdered By: Earnest De Anda on 09-12-2023 Interpretation and review of laboratory results Abnormal [facility] mecA/C (MRSE/MRSL) Detected Abnormal Not Detected [facility] Staphylococcus epidermidis Detected Abnormal Not Detected [facility] Methodology: Multiplex PCR The [employer] BCID panel can detect the following organisms: [...] IMP, KPC, NDM, OXA-48-like, VIM, and mcr-1. [facility] CBC W Auto Differential pane l (Bld)Ordered By: Tatyana Cedillo on 09-11-2023 Basophils (Bld) [#/Vol] 0.0 10*3/uL 0.0 - 0.2 10*3/uL [facility] Basophils/100 WBC (Bld) 0.2 % 0.0 - 2.0 % [facility] Eosinophils (Bld) [#/Vol] 0.0 10*3/uL 0.0 - 0.5 10*3/uL [facility] Eosinophils/100 WBC (Bld) 0.0 % Low 1.0 - 6.0 % [facility] Erythrocyte distribution width (RBC) [Ratio] 14.5 % 11.5 - 14.5 % [facility] Hematocrit (Bld) [Volume fraction] 36.9 % Low 40.0 - 52.0 % [facility] Hemoglobin (Bld) [Mass/Vol] 12.2 g/dL Low 13.0 - 18.0 g/dL [facility] Interpretation and review of laboratory results Abnormal [facility] Lymphocytes (Bld) [#/Vol] 0.7 10*3/uL Low 1.0 - 4.3 10*3/uL [facility] Lymphocytes/100 WBC (Bld) 10.8 % Low 20.0 - 40.0 % [facility] MCH (RBC) [Entitic mass] 29.7 pg 26. 0 - 34.0 pg [facility] MCHC (RBC) [Mass/Vol] 33.1 % 32.0 - 36.0 % [facility] MCV (RBC) [Entitic vol] 89.7 fL 80.0 - 98.0 fL [facility] Monocytes (Bld) [#/Vol] 0.3 10*3/uL 0.0 - 0.8 10*3/uL [facility] Monocytes/100 WBC (Bld) 4.0 % 2.0 - 10.0 % [facility] Neutrophils (Bld) [#/Vol] 5.5 10*3/uL 1.8 - 7.0 10*3/uL [facility] Neutrophils/100 WBC (Bld) 85.0 % High 40.0 - 80.0 % [facility] Nucleated RBC/100 WBC (Bld) [Ratio] 0.1 % [facility] Platelet mean volume (Bld) [Entitic vol] 9.1 fL 7.4 - 12.4 fL [facility] Platelets (Bld) [#/Vol] 97 10*3/uL Low 140 - 440 10*3/uL [facility] RBC (Bld) [#/Vol] 4.12 10*6/uL Low 4.40 - 5.9 0 10*6/uL [facility] WBC (Bld) [#/Vol] 6.5 10*3/uL 3.6 - 10.7 10*3/uL [facility] CRP [Mass/Vol]on 09-11-2023 Interpretation and review of laboratory results Abnormal [facility] Interpretation and review of laboratory results Abnormal [facility] Comprehensive metabolic 1998 panelon 09-11-2023 Albumin [Mass/Vol] 3.8 g/dL 3.5 - 5.0 g/dL [facility] ALP [Catalytic activity/Vol] 77 U/L 38 - 126 U/L [facility] ALT [Catalytic activity/Vol] 70 U/L High 0 - 49 U/L [facility] Anion gap [Moles/Vol] 10 mmol/L 3 - 13 mmol/L [facility] AST [Catalytic activity/Vol] 41 U/L 15 - 46 U/L [facility] Bilirubin [Mass/Vol] 0.5 mg/dL 0.2 - 1 .3 mg/dL [facility] Calcium [Mass/Vol] 8.8 mg/dL 8.4 - 10. 4 mg/dL [facility] Chloride [Moles/Vol] 106 mmol/L 98 - 10 7 mmol/L [facility] CO2 [Moles/Vol] 23 mmol/L 22 - 30 mmol/L [facility] Creatinine [Mass/Vol] 1.27 mg/dL High 0.66 - 1.25 mg/dL [facility] GFR/1.73 sq M.predicted MDRD (S/P/Bld) [Vol rate/Area] 54.7 mL/min/{1.73_m2} Low - PINF [facility] Comment on above: Calculation based on the Chronic Kidney Disease Epidemiology Collaboration (CKD-EPI) equation refit without adjustment for race Glucose [Mass/Vol] 232 mg/dL High 70 - 100 mg/dL [facility] Interpretation and review of laboratory results Abnormal [facility] Potassium [Moles/Vol] 4.6 mmol/L 3.5 - 5.1 mmol/L [facility] Protein [Mass/Vol] 7.3 g/dL 6.3 - 8.2 g/dL [facility] Sodium [Moles/Vol] 138 mmol/L 135 - 145 mmol/L [facility] Urea nitrogen [Mass/Vol] 42 mg/dL High 9 - 20 mg/d L [facility] Ferritin [Mass/Vol]on 2022 Interpretation and review of laboratory results Normal [facility] LDH Lactate to pyruvate reac tion [Catalytic activity/Vol]on 09-11-2023 Interpretation and review of laboratory results Normal [facility] Laboratory - Chemistry and C hemistry - challengeon 09-11-2023 Glucose [Mass/Vol] 203 mg/dL High 70 - 100 mg/dL [facility] CRP [Mass/Vol] 207.3 mg/L High NINF - 10.0 mg/L [facility] LDH Lactate to pyruvate reaction [Catalytic activity/Vol] 182 U/L 120 - 246 U/L [facility] Ferritin [Mass/Vol] 238 ng/mL 18 - 464 ng/mL [facility] CRP [Mass/Vol] 221.0 mg/L High NINF - 10.0 mg/L [facility] Glucose [Mass/Vol] 190 mg/dL High 70 - 100 mg/dL [facility] No Panel Informationon 09-11 Interpretation and review of laboratory results Abnormal [facility]formed by: [facility], [address] [place] [place] [address] CLIA ID: [id number] [facility] Interpretation and review of laboratory results Abnormal [facility] Performed by: [facility] [facility], [address] [facility] [address] CLIA ID: [id number] [facility] Basic metabolic 1998 panelon 09-10-2023 Anion gap [Moles/Vol] 8 mmol/L 3 - 13 mmol/L [facility] Calcium [Mass/Vol] 8.4 mg/dL 8.4 - 10. 4 mg/dL [facility] Chloride [Moles/Vol] 102 mmol/L 98 - 10 7 mmol/L [facility] CO2 [Moles/Vol] 23 mmol/L 22 - 30 mmol/L [facility] Creatinine [Mass/Vol] 1.63 mg/dL High 0.66 - 1.25 mg/dL [facility] [employer] GFR/1.73 sq M.predicted MDRD (S/P/Bld) [Vol rate/Area] 40.5 mL/min/{1.73_m2} Low - PINF [facility] Comment on above: Calculation based on the Chronic Kidney Disease Epidemiology Collaboration (CKD-EPI) equation refit without adjustment for race Glucose [Mass/Vol] 289 mg/dL High 70 - 100 mg/dL [facility] Interpretation and review of laboratory results Abnormal [facility] [employer] Potassium [Moles/Vol] 4.2 mmol/L 3.5 - 5.1 mmol/L [facility] [employer] Sodium [Moles/Vol] 134 mmol/L Low 135 - 145 mmol/L [facility] [employer] Urea nitrogen [Mass/Vol] 50 mg/dL High 9 - 20 mg/d L [facility] CBC W Auto Differential pane l (Bld)Ordered By: Wilmar Salazar on 09-10-2023 Basophils (Bld) [#/Vol] 0.0 10*3/uL 0.0 - 0.2 10*3/uL [facility] [employer] Basophils/100 WBC (Bld) 0.2 % 0.0 - 2.0 % [facility] [employer] Eosinophils (Bld) [#/Vol] 0.0 10*3/uL 0.0 - 0.5 10*3/uL [facility] [employer] Eosinophils/100 WBC (Bld) 0.0 % Low 1.0 - 6.0 % [facility] [employer] Erythrocyte distribution width (RBC) [Ratio] 14.1 % 11.5 - 14.5 % [facility] [employer] Hematocrit (Bld) [Volume fraction] 36.7 % Low 40.0 - 52.0 % [facility] Hemoglobin (Bld) [Mass/Vol] 12.3 g/dL Low 13.0 - 18.0 g/dL [facility] Interpretation and review of laboratory results Abnormal [facility] [employer] Lymphocytes (Bld) [#/Vol] 0.5 10*3/uL Low 1.0 - 4.3 10*3/uL [facility] [employer] Lymphocytes/100 WBC (Bld) 13.3 % Low 20.0 - 40.0 % [facility] MCH (RBC) [Entitic mass] 29.9 pg 26. 0 - 34.0 pg [facility] MCHC (RBC) [Mass/Vol] 33.5 % 32.0 - 36.0 % [facility] MCV (RBC) [Entitic vol] 89.3 fL 80.0 - 98.0 fL [facility] Monocytes (Bld) [#/Vol] 0.1 10*3/uL 0.0 - 0.8 10*3/uL [facility] Monocytes/100 WBC (Bld) 3.5 % 2.0 - 10.0 % [facility] Neutrophils (Bld) [#/Vol] 2.9 10*3/uL 1.8 - 7.0 10*3/uL [facility] Neutrophils/100 WBC (Bld) 83.0 % High 40.0 - 80.0 % [facility] Nucleated RBC/100 WBC (Bld) [Ratio] 0.2 % [facility] Platelet mean volume (Bld) [Entitic vol] 9.2 fL 7.4 - 12.4 fL [facility] Platelets (Bld) [#/Vol] 99 10*3/uL Low 140 - 440 10*3/uL [facility] RBC (Bld) [#/Vol] 4.11 10*6/uL Low 4.40 - 5.9 0 10*6/uL [facility] WBC (Bld) [#/Vol] 3.5 10*3/uL Low 3.6 - 10.7 10*3/uL [facility] Laboratory - Chemistry and C hemistry - challengeon 09-10-2023 Lactate [Moles/Vol] 2.0 mmol/L 0.7 - 2. 0 mmol/L [facility] Laboratory - Microbiology an d Antimicrobial susceptibilityon 09-10-2023 FLUAV RNA LISANDRO+probe Ql (Resp) Not detected Not Detected [facility] FLUBV RNA LISANDRO+probe Ql (Resp) Not detected Not Detected [facility] RSV RNA LISANDRO+probe Ql (Resp) Not detected Not Detected [facility] SARS-CoV-2 (COVID-19) RNA LISANDRO+probe Ql (Resp) Detected Abnormal Not Detected [facility] SARS-CoV-2 (COVID-19) RNA LISANDRO+probe Ql (Unsp spec) Methodology: real-time, RT-PCR The SARS-CoV-2, Flu A/B, and RSV Combo assay is intended for in vitro diagnostic use under the FDA Emergency Use Authorization (EUA). This test has not been FDA cleared or approved. In compliance with this authorization, please visit www.fda.gov/media/26 4866/download or www.fda.gov/media/75 2197/download to access the applicable information sheets. [employer] No Panel InformationOrdered By: Jayden Briseno on 09-10-2023 P [place] 62 degrees [employer] Work Phone: [place] Interval 158 ms [employer] Work Phone: QRS [place] 60 degrees [employer] Work Phone: QRSD Interval 83 ms [employer] Work Phone: QT Interval 333 ms [employer] Work Phone: QTC Interval 420 ms [employer] Work Phone: T Wave [place] 35 degrees [employer] Phone: [employer] Phone: No Panel Informationon 09-10 Sinus rhythm [...] On 09-10-2023 22:12:38 EST by Jayden Briseno [facility] [employer] Interpretation and review of laboratory results Normal [facility] [employer] SARS-CoV-2, Flu A/B, and RSV Comboon 09-10-2023 Interpretation and review of laboratory results Abnormal [facility] [employer] Vital signsOrdered By: David Briseno on 09-10-2023 Heart rate 95 /min bpm [employer] Work Phone: XR Chest Single viewon 09-10 No acute process. Report Dictated on Electronically Signed By: Tal Patterson DO Electronically Signed Date/Time: 09/10/2023 12:29 PM [facility] Patient Name: TITA KEITH : [...] pleural thickening. The osseous structures are unremarkable. [facility] Tal Patterson DO - 09/10/2023 Patient Name: TITA KEITH : 1935 Exam [...] DO Electronically Signed Date/Time: 09/10/2023 12:29 PM [facility] Radiology Study observation (narrative) [facility] Chest Single viewOrdered By: Tal Patterson on 09-10-2023 [facility] [employer] Work Phone: Laboratory - Chemistry and C hemistry - challengeon 01-26-2023 Glucose [Mass/Vol] 84 mg/dL 70 - 100 mg/dL [facility] No Panel Informationon 01-26 Interpretation and review of laboratory results Normal [facility] Performed by: [facility], [address] [place] [address] CLIA ID: [id number] [facility] Laboratory - Chemistry and C hemistry - challengeon 01-25-2023 Glucose [Mass/Vol] 167 mg/dL High 70 - 100 mg/dL [facility] Glucose [Mass/Vol] 137 mg/dL High 70 - 100 mg/dL [facility] Glucose [Mass/Vol] 167 mg/dL High 70 - 100 mg/dL [facility] Glucose [Mass/Vol] 163 mg/dL High 70 - 100 mg/dL [facility] Glucose [Mass/Vol] 70 mg/dL 70 - 100 mg/dL [facility] No Panel Informationon 01-25 Interpretation and review of laboratory results Abnormal [facility]formed by: [facility], [address] [place] [place] [address] CLIA ID: [id number] [facility] Interpretation and review of laboratory results Abnormal [facility] Performed by: [facility], [address] [place] [address] CLIA ID: [id number] [facility] Interpretation and review of laboratory results Abnormal [facility] Performed by: [facility], [address] [place] [place] [address] CLIA ID: [id number] [facility] Interpretation and review of laboratory results Abnormal [facility] Performed by: [facility], [address] [place] [place] [address] CLIA ID: [id number] [facility] Interpretation and review of laboratory results Normal [facility] Performed by: [facility], [address] [place] [address] CLIA ID: [id number] [facility] Laboratory - Chemistry and C hemistry - challengeon 01-24-2023 Glucose [Mass/Vol] 203 mg/dL High 70 - 100 mg/dL [facility] Glucose [Mass/Vol] 129 mg/dL High 70 - 100 mg/dL [facility] Glucose [Mass/Vol] 248 mg/dL High 70 - 100 mg/dL [facility] Glucose [Mass/Vol] 120 mg/dL High 70 - 100 mg/dL [facility] Laboratory - Microbiology an d Antimicrobial susceptibilityOrdered By: Chelsey Muro on 01-24-2023 SARS-CoV-2 (COVID-19) Ag IA.rapid Ql (Resp) Negative Negative [facility] Comment on above: A negative result do es not rule out the possibility of SARS-CoV-2 infection. NAAT-based methods should be considered for symptomatic patients presenting greater than seven days after onset of symptoms. Method: Lateral flow immunoassay. Fact sheets for healthcare providers and patients can be found at the following sites: https://www.Pet [employer] Quotes.gov/media/043011/download https://www.[employer].gov/media/879547/download No Panel Informationon 01-24 Interpretation and review of laboratory results Abnormal [facility] Performed by: [facility], [address] [place] [address] CLIA ID: [id number] [facility] Interpretation and review of laboratory results Abnormal [facility] Performed by: [facility], [address] [place] [address] CLIA ID: [id number] [facility] Interpretation and review of laboratory results Abnormal [facility] Performed by: [facility], [address] [place] [address] CLIA ID: [id number] [facility] Interpretation and review of laboratory results Abnormal [facility] Performed by: [facility], [address] [place] [address] CLIA ID: [id number] [facility] SARS-CoV-2 (COVID-19) Ag IA. rapid Ql (Resp)Ordered By: Chelsey Muro on 01-24-2023 Interpretation and review of laboratory results Normal [facility] SARS-CoV-2 (COVID-19) RNA pa zabrina LISANDRO+probe (Resp)on 01-24-2023 Interpretation and review of laboratory results Normal [facility] SARS-CoV-2 (COVID-19) RNA LISANDRO+probe Ql (Resp) Not detected Not Detected [facility] SARS-CoV-2 (COVID-19) RNA LISANDRO+probe Ql (Unsp spec) Methodology: real-time, RT-PCR The SARS-CoV-2 assay is intended for in vitro diagnostic use under the FDA Emergency Use Authorization (EUA). This test has not been FDA cleared or approved. In compliance with this authorization, please visit www.fda.gov/media 644/download or www.fda.gov/media/ 732/download to access the applicable information sheets. [facility] [employer] [facility] [employer] Laboratory - Chemistry and C hemistry - challengeon 01-23-2023 Glucose [Mass/Vol] 288 mg/dL High 70 - 100 mg/dL [facility] Glucose [Mass/Vol] 122 mg/dL High 70 - 100 mg/dL [facility] Glucose [Mass/Vol] 230 mg/dL High 70 - 100 mg/dL [facility] Glucose [Mass/Vol] 168 mg/dL High 70 - 100 mg/dL [employer] No Panel Informationon 01-23 Interpretation and review of laboratory results Abnormal [facility] [employer] Performed by: [facility], [address] [place] [address] CLIA ID: [id number] [facility] [employer] [facility] Interpretation and review of laboratory results Abnormal [facility] Performed by: [facility], [address] [place] [address] CLIA ID: [id number] [facility] [employer] [facility] Interpretation and review of laboratory results Abnormal [facility] Performed by: [facility], [address] [place] [address] CLIA ID: [id number] [facility] [employer] [facility] Interpretation and review of laboratory results Abnormal [facility] [employer] Performed by: [facility], [address] [place] [address] CLIA ID: [id number] [facility] [employer] [facility] [employer] Laboratory - Chemistry and C hemistry - challengeon 01-22-2023 Glucose [Mass/Vol] 307 mg/dL High 70 - 100 mg/dL [facility] Glucose [Mass/Vol] 109 mg/dL High 70 - 100 mg/dL [facility] Glucose [Mass/Vol] 160 mg/dL High 70 - 100 mg/dL [facility] Glucose [Mass/Vol] 93 mg/dL 70 - 100 mg/dL [facility] Glucose [Mass/Vol] 83 mg/dL 70 - 100 mg/dL [facility] No Panel Informationon 01-22 Interpretation and review of laboratory results Abnormal [facility]formed by: [facility], [address] [facility] [address] CLIA ID: [id number] [facility] Interpretation and review of laboratory results Abnormal [facility] Performed by: [facility], [address] [facility] [address] CLIA ID: [id number] [facility] Interpretation and review of laboratory results Abnormal [facility] Performed by: [facility], [address] [facility] [address] CLIA ID: [id number] [facility] Interpretation and review of laboratory results Normal [facility] Performed by: [facility], [address] [facility] [address] CLIA ID: [id number] [facility] Interpretation and review of laboratory results Normal [facility] Performed by: [facility], [address] [place] [address] CLIA ID: [id number] [facility] RF videography Hypopharynx a nd Esophagus Views for swallowing function W speech and W barium contrast Viji 01-22-2023 1. Penetration and geovanny aspiration during the study. Please refer to the speech pathologist's report for additional details and recommendations. Report Dictated on Electronically Signed By: Christiano Stacy Electronically Signed Date/Time: 01/22/2023 10:44 AM [facility] Patient Name: TITA KEITH : 1935 [facility]#: [id number] Exam Date/Time: 01/22/2023 10:25 Procedure: FL MODIFIED [...] pooling in the vallecula was also aspirated. [facility] Christiano Stacy MD - 01/22/2023 [facility] : 1935 [id number] Exam Date/Time: 01/22/2023 10:25 Procedure: FL MODIFIED [...] Electronically Signed Date/Time: 01/22/2023 10:44 AM EDT [facility] Radiology Study observation (narrative) [facility] RF videography Hypopharynx a nd Esophagus Views for swallowing function W speech and W barium contrast POOrdered By: Christiano Stacy on 01-22-2023 [facility] [employer] Work Phone: Laboratory - Chemistry and C hemistry - challengeon 01-21-2023 Glucose [Mass/Vol] 66 mg/dL Low 70 - 100 mg/dL [facility] Glucose [Mass/Vol] 256 mg/dL High 70 - 100 mg/dL [facility] Glucose [Mass/Vol] 126 mg/dL High 70 - 100 mg/dL [facility] Glucose [Mass/Vol] 158 mg/dL High 70 - 100 mg/dL [facility] Glucose [Mass/Vol] 59 mg/dL Low 70 - 100 mg/dL [facility] Glucose [Mass/Vol] 52 mg/dL Low 70 - 100 mg/dL [facility] No Panel Informationon 01-21 Interpretation and review of laboratory results Abnormal [facility]formed by: [facility], [address] [place] [address], [facility] [address] CLIA ID: [id number] [facility] Interpretation and review of laboratory results Abnormal [facility] Performed by: [facility], [address] [place] [address], [facility] [address] CLIA ID: [id number] [facility] Interpretation and review of laboratory results Abnormal [facility] Performed by: [facility], [address] [place] [address], [facility] [address] CLIA ID: [id number] [facility] Interpretation and review of laboratory results Abnormal [facility] Performed by: [facility], [address] [place] [address], [facility] [address] CLIA ID: [id number] [facility] Interpretation and review of laboratory results Abnormal [facility] Performed by: [facility], [address] [place] [address], [facility] [address] CLIA ID: [id number] [facility] Interpretation and review of laboratory results Abnormal [facility] Performed by: [facility], [address] [place] [address], [facility] [address] CLIA ID: [id number] [facility] [employer] [facility] [employer] Basic metabolic 1998 panelon 01-20-2023 Anion gap [Moles/Vol] 5 mmol/L 3 - 13 mmol/L [facility] Calcium [Mass/Vol] 8.7 mg/dL 8.4 - 10. 4 mg/dL [facility] Chloride [Moles/Vol] 106 mmol/L 98 - 10 7 mmol/L [facility] CO2 [Moles/Vol] 26 mmol/L 22 - 30 mmol/L [facility] Creatinine [Mass/Vol] 1.02 mg/dL 0.66 - 1.25 mg/dL [facility] GFR/1.73 sq M.predicted MDRD (S/P/Bld) [Vol rate/Area] 71.1 mL/min/{1.73_m2} - PINF [facility] Comment on above: Calculation based on the Chronic Kidney Disease Epidemiology Collaboration (CKD-EPI) equation refit without adjustment for race Glucose [Mass/Vol] 75 mg/dL 70 - 100 mg/dL [facility] Interpretation and review of laboratory results Abnormal [facility] Potassium [Moles/Vol] 3.7 mmol/L 3.5 - 5.1 mmol/L [facility] Sodium [Moles/Vol] 137 mmol/L 135 - 145 mmol/L [facility] Urea nitrogen [Mass/Vol] 23 mg/dL High 9 - 20 mg/d L [facility] CBC W Auto Differential pane l (Bld)Ordered By: Davina Ramos on 01-20-2023 Basophils (Bld) [#/Vol] 0.0 10*3/uL 0.0 - 0.2 10*3/uL [facility] Basophils/100 WBC (Bld) 0.5 % 0.0 - 2.0 % [facility] Eosinophils (Bld) [#/Vol] 0.1 10*3/uL 0.0 - 0.5 10*3/uL [facility] Eosinophils/100 WBC (Bld) 0.6 % Low 1.0 - 6.0 % [facility] Erythrocyte distribution width (RBC) [Ratio] 12.9 % 11.5 - 14.5 % [facility] Hematocrit (Bld) [Volume fraction] 35.0 % Low 40.0 - 52.0 % [facility] Hemoglobin (Bld) [Mass/Vol] 12.0 g/dL Low 13.0 - 18.0 g/dL [facility] Interpretation and review of laboratory results Abnormal [facility] Lymphocytes (Bld) [#/Vol] 0.8 10*3/uL Low 1.0 - 4.3 10*3/uL [facility] Lymphocytes/100 WBC (Bld) 8.9 % Low 20.0 - 40.0 % [facility] MCH (RBC) [Entitic mass] 30.1 pg 26. 0 - 34.0 pg [facility] MCHC (RBC) [Mass/Vol] 34.1 % 32.0 - 36.0 % [facility] MCV (RBC) [Entitic vol] 88.3 fL 80.0 - 98.0 fL [facility] Monocytes (Bld) [#/Vol] 0.6 10*3/uL 0.0 - 0.8 10*3/uL [facility] Monocytes/100 WBC (Bld) 6.5 % 2.0 - 10.0 % [facility] Neutrophils (Bld) [#/Vol] 7.9 10*3/uL High 1.8 - 7.0 10*3/uL [facility] Neutrophils/100 WBC (Bld) 83.5 % High 40.0 - 80.0 % [facility] Nucleated RBC/100 WBC (Bld) [Ratio] 0.0 % [facility] [employer] Platelet mean volume (Bld) [Entitic vol] 9.1 fL 7.4 - 12.4 fL [facility] Platelets (Bld) [#/Vol] 366 10*3/uL 140 - 440 10*3/uL [facility] RBC (Bld) [#/Vol] 3.97 10*6/uL Low 4.40 - 5.9 0 10*6/uL [facility] WBC (Bld) [#/Vol] 9.4 10*3/uL 3.6 - 10.7 10*3/uL [facility] Laboratory - Chemistry and C hemistry - challengeon 01-20-2023 Glucose [Mass/Vol] 218 mg/dL High 70 - 100 mg/dL [facility] Glucose [Mass/Vol] 120 mg/dL High 70 - 100 mg/dL [facility] Glucose [Mass/Vol] 126 mg/dL High 70 - 100 mg/dL [facility] Glucose [Mass/Vol] 70 mg/dL 70 - 100 mg/dL [facility] No Panel Informationon 01-20 Interpretation and review of laboratory results Abnormal [facility]: [facility], [address] [place] [place] [address] CLIA ID: [id number] [facility] Interpretation and review of laboratory results Abnormal [facility]formed by: [facility], [address] [facility] [address] CLIA ID: [id number] [facility] Interpretation and review of laboratory results Abnormal [facility]: [facility], [address] [facility] [address] CLIA ID: [id number] [facility] Interpretation and review of laboratory results Normal [facility] Performed by: [facility], [address] [facility] [address] CLIA ID: [id number] [facility] Basic metabolic 1998 panelon 01-19-2023 Anion gap [Moles/Vol] 3 mmol/L 3 - 13 mmol/L [facility] Calcium [Mass/Vol] 8.8 mg/dL 8.4 - 10. 4 mg/dL [facility] Chloride [Moles/Vol] 111 mmol/L High 98 - 10 7 mmol/L [facility] CO2 [Moles/Vol] 29 mmol/L 22 - 30 mmol/L [facility] Creatinine [Mass/Vol] 1.19 mg/dL 0.66 - 1.25 mg/dL [facility] GFR/1.73 sq M.predicted MDRD (S/P/Bld) [Vol rate/Area] 59.1 mL/min/{1.73_m2} Low - PINF [facility] Comment on above: Calculation based on the Chronic Kidney Disease Epidemiology Collaboration (CKD-EPI) equation refit without adjustment for race Glucose [Mass/Vol] 65 mg/dL Low 70 - 100 mg/dL [facility] Interpretation and review of laboratory results Abnormal [facility] Potassium [Moles/Vol] 3.9 mmol/L 3.5 - 5.1 mmol/L [facility] Sodium [Moles/Vol] 144 mmol/L 135 - 145 mmol/L [facility] Urea nitrogen [Mass/Vol] 34 mg/dL High 9 - 20 mg/d L [facility] CBC W Auto Differential pane l (Bld)on 01-19-2023 Basophils (Bld) [#/Vol] 0.0 10*3/uL 0.0 - 0.2 10*3/uL [facility] Basophils/100 WBC (Bld) 0.4 % 0.0 - 2.0 % [facility] Eosinophils (Bld) [#/Vol] 0.1 10*3/uL 0.0 - 0.5 10*3/uL [facility] Eosinophils/100 WBC (Bld) 1.0 % 1.0 - 6.0 % [facility] Erythrocyte distribution width (RBC) [Ratio] 13.2 % 11.5 - 14.5 % [facility] Hematocrit (Bld) [Volume fraction] 33.3 % Low 40.0 - 52.0 % [facility] Hemoglobin (Bld) [Mass/Vol] 11.2 g/dL Low 13.0 - 18.0 g/dL [facility] Interpretation and review of laboratory results Abnormal [facility] Lymphocytes (Bld) [#/Vol] 0.8 10*3/uL Low 1.0 - 4.3 10*3/uL [facility] Lymphocytes/100 WBC (Bld) 10.3 % Low 20.0 - 40.0 % [facility] MCH (RBC) [Entitic mass] 30.2 pg 26. 0 - 34.0 pg [facility] MCHC (RBC) [Mass/Vol] 33.8 % 32.0 - 36.0 % [facility] MCV (RBC) [Entitic vol] 89.5 fL 80.0 - 98.0 fL [facility] Monocytes (Bld) [#/Vol] 0.6 10*3/uL 0.0 - 0.8 10*3/uL [facility] Monocytes/100 WBC (Bld) 7.6 % 2.0 - 10.0 % [facility] Neutrophils (Bld) [#/Vol] 6.6 10*3/uL 1.8 - 7.0 10*3/uL [facility] Neutrophils/100 WBC (Bld) 80.7 % High 40.0 - 80.0 % [facility] Nucleated RBC/100 WBC (Bld) [Ratio] 0.0 % [facility] Platelet mean volume (Bld) [Entitic vol] 8.8 fL 7.4 - 12.4 fL [facility] Platelets (Bld) [#/Vol] 305 10*3/uL 140 - 440 10*3/uL [facility] RBC (Bld) [#/Vol] 3.72 10*6/uL Low 4.40 - 5.9 0 10*6/uL [facility] WBC (Bld) [#/Vol] 8.2 10*3/uL 3.6 - 10.7 10*3/uL [facility] Laboratory - Chemistry and C hemistry - challengeon 01-19-2023 Glucose [Mass/Vol] 119 mg/dL High 70 - 100 mg/dL [facility] [employer] Glucose [Mass/Vol] 91 mg/dL 70 - 100 mg/dL [facility] [employer] Glucose [Mass/Vol] 173 mg/dL High 70 - 100 mg/dL [facility] Glucose [Mass/Vol] 90 mg/dL 70 - 100 mg/dL [facility] Glucose [Mass/Vol] 68 mg/dL Low 70 - 100 mg/dL [facility] [employer] No Panel Informationon 01-19 Interpretation and review of laboratory results Abnormal [facility] Performed by: [facility], [address] [place] [address] CLIA ID: [id number] [facility] [employer] [facility] Interpretation and review of laboratory results Normal [facility] Performed by: [facility], [address] [place] [address] CLIA ID: [id number] [facility] [employer] [facility] Interpretation and review of laboratory results Abnormal [facility] Performed by: [facility], [address] [place] [place] [address] CLIA ID: [id number] [facility] Interpretation and review of laboratory results Normal [facility] Performed by: [facility], [address] [place] [place] [address] CLIA ID: [id number] [facility] Interpretation and review of laboratory results Abnormal [facility] Performed by: [facility], [address] [place] [address] CLIA ID: [id number] [facility] Basic metabolic 1998 panelOr dered By: Osman Cadena on 01-18-2023 Anion gap [Moles/Vol] 4 mmol/L 3 - 13 mmol/L [facility] [employer] Calcium [Mass/Vol] 8.8 mg/dL 8.4 - 10. 4 mg/dL [facility] [employer] Chloride [Moles/Vol] 110 mmol/L High 98 - 10 7 mmol/L [facility] CO2 [Moles/Vol] 27 mmol/L 22 - 30 mmol/L [facility] Creatinine [Mass/Vol] 1.44 mg/dL High 0.66 - 1.25 mg/dL [facility] GFR/1.73 sq M.predicted MDRD (S/P/Bld) [Vol rate/Area] 47.0 mL/min/{1.73_m2} Low - PINF [facility] Comment on above: Calculation based on the Chronic Kidney Disease Epidemiology Collaboration (CKD-EPI) equation refit without adjustment for race Glucose [Mass/Vol] 94 mg/dL 70 - 100 mg/dL [facility] Interpretation and review of laboratory results Abnormal [facility] Potassium [Moles/Vol] 3.8 mmol/L 3.5 - 5.1 mmol/L [facility] Sodium [Moles/Vol] 141 mmol/L 135 - 145 mmol/L [facility] Urea nitrogen [Mass/Vol] 54 mg/dL High 9 - 20 mg/d L [facility] CBC W Auto Differential pane l (Bld)Ordered By: Waylon Fajardo on 01-18-2023 Basophils (Bld) [#/Vol] 0.0 10*3/uL 0.0 - 0.2 10*3/uL [facility] Basophils/100 WBC (Bld) 0.2 % 0.0 - 2.0 % [facility] Eosinophils (Bld) [#/Vol] 0.0 10*3/uL 0.0 - 0.5 10*3/uL [facility] Eosinophils/100 WBC (Bld) 0.3 % Low 1.0 - 6.0 % [facility] Erythrocyte distribution width (RBC) [Ratio] 12.9 % 11.5 - 14.5 % [facility] Hematocrit (Bld) [Volume fraction] 30.8 % Low 40.0 - 52.0 % [facility] Hemoglobin (Bld) [Mass/Vol] 10.6 g/dL Low 13.0 - 18.0 g/dL [facility] Interpretation and review of laboratory results Abnormal [facility] Lymphocytes (Bld) [#/Vol] 0.7 10*3/uL Low 1.0 - 4.3 10*3/uL [facility] Lymphocytes/100 WBC (Bld) 7.3 % Low 20.0 - 40.0 % [facility] MCH (RBC) [Entitic mass] 30.8 pg 26. 0 - 34.0 pg [facility] MCHC (RBC) [Mass/Vol] 34.5 % 32.0 - 36.0 % [facility] MCV (RBC) [Entitic vol] 89.2 fL 80.0 - 98.0 fL [facility] [employer] Monocytes (Bld) [#/Vol] 0.7 10*3/uL 0.0 - 0.8 10*3/uL [facility] [employer] Monocytes/100 WBC (Bld) 7.4 % 2.0 - 10.0 % [facility] [employer] Neutrophils (Bld) [#/Vol] 7.8 10*3/uL High 1.8 - 7.0 10*3/uL [facility] [employer] Neutrophils/100 WBC (Bld) 84.8 % High 40.0 - 80.0 % [facility] Nucleated RBC/100 WBC (Bld) [Ratio] 0.0 % [facility] Platelet mean volume (Bld) [Entitic vol] 9.4 fL 7.4 - 12.4 fL [facility] [employer] Platelets (Bld) [#/Vol] 289 10*3/uL 140 - 440 10*3/uL [facility] [employer] RBC (Bld) [#/Vol] 3.45 10*6/uL Low 4.40 - 5.9 0 10*6/uL [facility] WBC (Bld) [#/Vol] 9.2 10*3/uL 3.6 - 10.7 10*3/uL [facility] HbA1c (Bld) [Mass fraction]o n 01-18-2023 Glucose [Mass/Vol] 200 mg/dL [facility] HbA1c (Bld) [Mass/Vol] 8.6 % High NINF - 5.7 % [facility] Comment on above: Normal less than 5.7 % Prediabetes 5.7% to 6.4% Diabetes 6.5% or higher --HgbA1C levels may not be accurate in patients who have renal disease, received recent blood transfusions, are anemic, or who have dyshemoglobinemia. Interpretation and review of laboratory results Abnormal [facility] - Chemistry and C hemistry - challengeon 01-18-2023 Glucose [Mass/Vol] 202 mg/dL High 70 - 100 mg/dL [facility] Procalcitonin [Mass/Vol] 0.26 ng/mL High 0.0 0 - 0.09 ng/mL [facility] Glucose [Mass/Vol] 74 mg/dL 70 - 100 mg/dL [facility] Glucose [Mass/Vol] 210 mg/dL High 70 - 100 mg/dL [facility] Glucose [Mass/Vol] 139 mg/dL High 70 - 100 mg/dL [facility] Glucose [Mass/Vol] 99 mg/dL 70 - 100 mg/dL [facility] No Panel Informationon 01-18 Interpretation and review of laboratory results Abnormal [facility] Performed by: [facility], [address] [facility], [facility] [address] CLIA ID: [id number] [facility] Interpretation and review of laboratory results Normal [facility] Performed by: [facility], [address] [facility], [facility] [address] CLIA ID: [id number] [facility] Interpretation and review of laboratory results Abnormal [facility]formed by: [facility], [address] [facility], [facility] [address] CLIA ID: [id number] [facility] Interpretation and review of laboratory results Abnormal [facility]formed by: [facility], [address] [facility], [facility] [address] CLIA ID: [id number] [facility] Interpretation and review of laboratory results Normal [facility] Performed by: [facility], [address] [place] [address], [facility] [address] CLIA ID: [id number] [facility] Procalcitonin [Mass/Vol]on 0 01-18-2023 Interpretation and review of laboratory results Abnormal [facility] PCT <0.50 = Low risk of severe sepsis and/or septic shock. PCT >2.00 = High risk of severe sepsis and/or septic shock. [facility] CBC W Auto Differential pane l (Bld)Ordered By: Sania Grigsby on 01-17-2023 Basophils (Bld) [#/Vol] 0.0 10*3/uL 0.0 - 0.2 10*3/uL [facility] Basophils/100 WBC (Bld) 0.5 % 0.0 - 2.0 % [facility] Eosinophils (Bld) [#/Vol] 0.1 10*3/uL 0.0 - 0.5 10*3/uL [facility] Eosinophils/100 WBC (Bld) 0.6 % Low 1.0 - 6.0 % [facility] [employer] Erythrocyte distribution width (RBC) [Ratio] 13.4 % 11.5 - 14.5 % [facility] [employer] Hematocrit (Bld) [Volume fraction] 33.3 % Low 40.0 - 52.0 % [facility] [employer] Hemoglobin (Bld) [Mass/Vol] 11.0 g/dL Low 13.0 - 18.0 g/dL [facility] Lymphocytes (Bld) [#/Vol] 0.9 10*3/uL Low 1.0 - 4.3 10*3/uL [facility] Lymphocytes/100 WBC (Bld) 10.0 % Low 20.0 - 40.0 % [facility] [employer] MCH (RBC) [Entitic mass] 29.8 pg 26. 0 - 34.0 pg [facility] [employer] MCHC (RBC) [Mass/Vol] 33.2 % 32.0 - 36.0 % [facility] MCV (RBC) [Entitic vol] 89.7 fL 80.0 - 98.0 fL [facility] [employer] Monocytes (Bld) [#/Vol] 0.6 10*3/uL 0.0 - 0.8 10*3/uL [facility] Monocytes/100 WBC (Bld) 6.9 % 2.0 - 10.0 % [facility] Neutrophils (Bld) [#/Vol] 7.3 10*3/uL High 1.8 - 7.0 10*3/uL [facility] Neutrophils/100 WBC (Bld) 82.0 % High 40.0 - 80.0 % [facility] Nucleated RBC/100 WBC (Bld) [Ratio] 0.2 % [facility] [employer] Platelet mean volume (Bld) [Entitic vol] 9.9 fL 7.4 - 12.4 fL [facility] [employer] Platelets (Bld) [#/Vol] 296 10*3/uL 140 - 440 10*3/uL [facility] Comment on above: Occasional fibrin st rands noted on smear, no clot detected in tube, may affect platelet count, suggest repeat draw RBC (Bld) [#/Vol] 3.71 10*6/uL Low 4.40 - 5.9 0 10*6/uL [facility] WBC (Bld) [#/Vol] 8.9 10*3/uL 3.6 - 10.7 10*3/uL [facility] CT Head WO contraston 2022 1. No acute intracranial process. 2. Global volume loss with small vessel ischemia. Report Dictated on Electronically Signed By: Iman Arriaga Electronically Signed Date/Time: 01/17/2023 8:59 PM EDT [facility] Patient Name: TITA KEITH : 1935 Exam Date/Time: 01/17/2023 20:43 Procedure: CT HEAD [...] globes are symmetric. The sinuses are pneumatized. [facility] Iman Arriaga MD - 01/17/2023 Patient Name: TITA KEITH : 1935 Exam Date/Time: 01/17/2023 20:43 Procedure: CT HEAD [...] Electronically Signed Date/Time: 01/17/2023 8:59 PM EDT [facility] Radiology Study observation (narrative) [facility] He alth CT Head WO contrastOrdered B y: Iman Arriaga on 01-17-2023 [facility] Work Phone: Comprehensive metabolic 1998 panelOrdered By: Alexey Jackson on 01-17-2023 Albumin [Mass/Vol] 3.2 g/dL Low 3.5 - 5.0 g/dL [facility] ALP [Catalytic activity/Vol] 103 U/L 38 - 126 U/L [facility] ALT [Catalytic activity/Vol] 31 U/L 0 - 49 U/L [facility] Anion gap [Moles/Vol] 4 mmol/L 3 - 13 mmol/L [facility] AST [Catalytic activity/Vol] 45 U/L 15 - 46 U/L [facility] Bilirubin [Mass/Vol] 0.6 mg/dL 0.2 - 1 .3 mg/dL [facility] Calcium [Mass/Vol] 8.7 mg/dL 8.4 - 10. 4 mg/dL [facility] Chloride [Moles/Vol] 99 mmol/L 98 - 10 7 mmol/L [facility] CO2 [Moles/Vol] 28 mmol/L 22 - 30 mmol/L [facility] Creatinine [Mass/Vol] 1.77 mg/dL High 0.66 - 1.25 mg/dL [facility] GFR/1.73 sq M.predicted MDRD (S/P/Bld) [Vol rate/Area] 36.7 mL/min/{1.73_m2} Low - PINF [facility] Comment on above: Calculation based on the Chronic Kidney Disease Epidemiology Collaboration (CKD-EPI) equation refit without adjustment for race Glucose [Mass/Vol] 533 mg/dL Critically high 70 - 1 00 mg/dL [facility] Interpretation and review of laboratory results Abnormal [facility] Potassium [Moles/Vol] 5.4 mmol/L High 3.5 - 5.1 mmol/L [facility] Protein [Mass/Vol] 6.6 g/dL 6.3 - 8.2 g/dL [facility] Sodium [Moles/Vol] 131 mmol/L Low 135 - 145 mmol/L [facility] Urea nitrogen [Mass/Vol] 68 mg/dL High 9 - 20 mg/d L [facility] Specimen slightly hemolyzed please interpret with caution [facility] - Chemistry and C hemistry - challengeon 01-17-2023 Lactate [Moles/Vol] 1.6 mmol/L 0.7 - 2. 0 mmol/L [facility] Base excess Calc (BldV) [Moles/Vol] 2.6 mmol/L -3 - 3 mmol/L [facility] CO2 (BldV) [Partial pressure] 48.8 mm[Hg] [facility] CO2 [Moles/Vol] 29.9 mmol/L High 24.0 - 28.0 mmol/L [facility] HCO3 (Bld) [Moles/Vol] 28.4 mmol/L High 23.0 - 27.0 mmol/L [facility] Oxygen (BldV) [Partial pressure] Low [facility] pH (BldV) 7.373 [pH] 7.330 - 7.430 pH [facility] Troponin I.cardiac [Mass/Vol] 0.016 ng/mL 0.000 - 0.034 ng/mL [facility] Beta hydroxybutyrate [Mass/Vol] 1.16 mg/dL 0.20 - 2.81 mg/dL [facility] Lipase [Catalytic activity/Vol] 86 U/L 23 - 300 U/L [facility] Glucose [Mass/Vol] mg/dL High 70 - 100 mg/dL [facility] Comment on above: Confirmation Drawn; Lipase [Catalytic activity/V ol]on 01-17-2023 Interpretation and review of laboratory results Normal [facility] Manual differential performe d Ql (Bld)on 01-17-2023 [place] cells LM Ql (Bld) Slight Abnormal (none) [facility] Leukocyte morphology finding Nom (Bld) Normal [facility] Ovalocytes LM Ql (Bld) Slight Abnormal (none) [facility] Platelet morphology finding Nom (Bld) Normal [facility] Polychromasia LM Ql (Bld) Rare Abnormal (none) [facility] WBC corrected for nucl RBC (Bld) [#/Vol] 8.90 10*3/uL 3.60 - 10.70 10*3/uL [facility] No Panel Informationon 01-17 P [place] -45 degrees [facility] [place] Interval 136 ms [facility] QRS [place] 64 degrees [facility] QRSD Interval 84 ms [facility] QT Interval 372 ms [facility] QTC Interval 424 ms [facility] T Wave [place] 46 degrees [facility] SINUS OR ECTOPIC ATRIAL RHYTHM BASELINE [...] On 01-17-2023 23:24:28 EDT by Karel Ghosh [facility] Interpretation and review of laboratory results Normal [facility] FIO2 21 [facility] Comment on above: Performed by CLIA ID : [id number] [place], [place] ?Device: [id number] International Sourcing Manager ID: [id number] Interpretation and review of laboratory results Abnormal [facility] Performed by: [facility], [address] [place] [address] CLIA ID: [id number] [facility] Interpretation and review of laboratory results Normal [facility] Interpretation and review of laboratory results Abnormal [facility] Performed by: [facility], [address] [facility] [address] CLIA ID: [id number] [facility] No Panel InformationOrdered By: Sania Grigsby on 01-17-2023 Interpretation and review of laboratory results Abnormal [facility] Troponin I.cardiac [Mass/Vol ]on 01-17-2023 Interpretation and review of laboratory results Normal [facility] Patients with high levels of Biotin oral intake (ie >5 mg/day) may have falsely decreased Troponin levels. [facility] Urinalysis complete panel (U )Ordered By: Lilian Mata on 01-17-2023 Amorphous Crystals, Urine Few Abnormal Negative /HPF [facility] Bacteria LM.HPF (Urine sed) [#/Area] Few Abnormal Negative /HPF [facility] Bilirubin Ql (U) Negative Negative mg/dL [facility] Clarity (U) Clear Clear [facility] Color (U) Light Yellow Lt. Yellow [facility] Epithelial cells.squamous LM.HPF (Urine sed) [#/Area] 0-2 [facility] h Glucose Ql (U) >1,000 Abnormal Normal (<70) mg/dL [facility] Hemoglobin Ql (U) Negative Negative mg/dL [facility] Hyaline casts Auto (Urine sed) [#/Area] 0-2 Abnormal Negative /LPF [facility] Interpretation and review of laboratory results Abnormal [facility] Ketones (U) [Mass/Vol] Negative Negat kate mg/dL [facility] Leukocyte esterase Test strip Ql (U) Negative Negative [place]/uL [facility] Mucus LM.HPF (Urine sed) [#/Area] Few Negative /LPF [facility] Nitrite Ql (U) Negative Negative [facility] th Non-Squamous Epithalial Cells, Urine 0-2 Abnormal Negative /HPF [facility] pH (U) 5.0 [pH] 5.0 - 8.0 pH [facility] Protein (U) [Mass/Vol] 10 mg/dL Abnormal Negative [facility] RBC LM.HPF (Urine sed) [#/Area] 0-2 [facility] Specific gravity (U) [Rel density] 1.020 1.005 - 1.030 [facility] Urobilinogen (U) [Mass/Vol] Normal Normal (0-1) mg/dL [facility] WBC LM.HPF (Urine sed) [#/Area] 0-2 [facility] Vital signson 01-17-2023 Heart rate 78 /min bpm [facility] Oxygen saturation in Venous blood 35.0 % Low 60.0 - 80.0 % [facility] XR Chest Single viewon 01-17 No acute cardiopulmonary process identified. Report Dictated on Electronically Signed By: Deniz Kelly Electronically Signed Date/Time: 01/17/2023 9:00 PM EDT [facility] Patient Name: TITA KEITH : [...] unremarkable. Bones: No acute osseous process identified. [facility] Deniz eKlly MD - 01/17/2023 Patient Name: TITA KEITH [...] Electronically Signed Date/Time: 01/17/2023 9:00 PM EDT [facility] Radiology Study observation (narrative) [facility] XR Chest Single viewOrdered By: Deniz Kelly on 01-17-2023 [facility] [employer] Work Phone: Basic metabolic 1998 panelon 01-05-2023 Anion gap [Moles/Vol] 2 mmol/L Low 3 - 13 mmol/L [facility] Calcium [Mass/Vol] 8.4 mg/dL 8.4 - 10. 4 mg/dL [facility] Chloride [Moles/Vol] 105 mmol/L 98 - 10 7 mmol/L [facility] CO2 [Moles/Vol] 29 mmol/L 22 - 30 mmol/L [facility] Creatinine [Mass/Vol] 1.23 mg/dL 0.66 - 1.25 mg/dL [facility] GFR/1.73 sq M.predicted MDRD (S/P/Bld) [Vol rate/Area] 56.8 mL/min/{1.73_m2} Low - PINF [facility] Comment on above: Calculation based on the Chronic Kidney Disease Epidemiology Collaboration (CKD-EPI) equation refit without adjustment for race Glucose [Mass/Vol] 127 mg/dL High 70 - 100 mg/dL [facility] Interpretation and review of laboratory results Abnormal [facility] Potassium [Moles/Vol] 4.0 mmol/L 3.5 - 5.1 mmol/L [facility] Sodium [Moles/Vol] 136 mmol/L 135 - 145 mmol/L [facility] Urea nitrogen [Mass/Vol] 35 mg/dL High 9 - 20 mg/d L [facility] CBC panel Auto (Bld)Ordered By: Chad Navarro on 01-05-2023 Erythrocyte distribution width (RBC) [Ratio] 12.4 % 11.5 - 14.5 % [facility] Hematocrit (Bld) [Volume fraction] 36.7 % Low 40.0 - 52.0 % [facility] Hemoglobin (Bld) [Mass/Vol] 12.6 g/dL Low 13.0 - 18.0 g/dL [facility] Interpretation and review of laboratory results Abnormal [facility] MCH (RBC) [Entitic mass] 31.2 pg 26. 0 - 34.0 pg [facility] MCHC (RBC) [Mass/Vol] 34.3 % 32.0 - 36.0 % [facility] MCV (RBC) [Entitic vol] 90.8 fL 80.0 - 98.0 fL [facility] Platelet mean volume (Bld) [Entitic vol] 10.4 fL 7.4 - 12.4 fL [facility] Comment on above: MPV is a calculated measurement using platelet volume ratio Platelets (Bld) [#/Vol] 141 10*3/uL 140 - 440 10*3/uL [facility] RBC (Bld) [#/Vol] 4.04 10*6/uL Low 4.40 - 5.9 0 10*6/uL [facility] WBC (Bld) [#/Vol] 9.6 10*3/uL 3.6 - 10.7 10*3/uL [facility] CT Cervical spine WO contras ton 01-05-2023 No cervical spine fracture. Report Dictated on Electronically Signed By: Otf Gutierrez Electronically Signed Date/Time: 01/05/2023 2:19 AM EDT [facility] Patient Name: TITA KEITH : 1935 [...] soft tissues and lung apices are unremarkable. [facility] Otf Gutierrez MD - 01/05/2023 Patient [...] Electronically Signed Date/Time: 01/05/2023 2:19 AM EDT [facility] Radiology Study observation (narrative) [facility] CT Head WO contraston 2022 No acute intracranial hemorrhage or mass effect. Report Dictated on Electronically Signed By: Otf Gutierrez Electronically Signed Date/Time: 01/05/2023 2:17 AM EDT [facility] 1935 [id number] Exam Date/Time: 01/05/2023 01:57 Procedure: CT HEAD [...] cells are well aerated. Calvarium is unremarkable. [facility] Otf Gutierrez MD - 01/05/2023 Patient Name: TITA KEITH : 1935 [facility]#: [id number] Exam Date/Time: 01/05/2023 01:57 Procedure: CT HEAD [...] Electronically Signed Date/Time: 01/05/2023 2:17 AM EDT [facility] Radiology Study observation (narrative) [facility] Comprehensive metabolic 1998 panelon 01-05-2023 Albumin [Mass/Vol] 4.2 g/dL 3.5 - 5.0 g/dL [facility] ALP [Catalytic activity/Vol] 107 U/L 38 - 126 U/L [facility] ALT [Catalytic activity/Vol] 19 U/L 0 - 49 U/L [facility] Anion gap [Moles/Vol] 4 mmol/L 3 - 13 mmol/L [facility] AST [Catalytic activity/Vol] 26 U/L 15 - 46 U/L [facility] Bilirubin [Mass/Vol] 0.7 mg/dL 0.2 - 1 .3 mg/dL [facility] Calcium [Mass/Vol] 9.5 mg/dL 8.4 - 10. 4 mg/dL [facility] Chloride [Moles/Vol] 104 mmol/L 98 - 10 7 mmol/L [facility] CO2 [Moles/Vol] 32 mmol/L High 22 - 30 mmol/L [facility] Creatinine [Mass/Vol] 1.35 mg/dL High 0.66 - 1.25 mg/dL [facility] GFR/1.73 sq M.predicted MDRD (S/P/Bld) [Vol rate/Area] 50.8 mL/min/{1.73_m2} Low - PINF [facility] Comment on above: Calculation based on the Chronic Kidney Disease Epidemiology Collaboration (CKD-EPI) equation refit without adjustment for race Glucose [Mass/Vol] 141 mg/dL High 70 - 100 mg/dL [facility] Interpretation and review of laboratory results Abnormal [facility] Potassium [Moles/Vol] 5.3 mmol/L High 3.5 - 5.1 mmol/L [facility] Protein [Mass/Vol] 7.5 g/dL 6.3 - 8.2 g/dL [facility] Sodium [Moles/Vol] 139 mmol/L 135 - 145 mmol/L [facility] Urea nitrogen [Mass/Vol] 38 mg/dL High 9 - 20 mg/d L [facility] Laboratory - Chemistry and C hemistry - challengeon 01-05-2023 Troponin I.cardiac [Mass/Vol] ng/mL 0.000 - 0.034 ng/mL [facility] No Panel Informationon 01-05 P [place] degrees [facility] [place] Interval 183 ms [facility] QRS [place] 70 degrees [facility] QRSD Interval 88 ms [facility] QT Interval 330 ms [facility] QTC Interval 400 ms [facility] T Wave [place] 57 degrees [facility] SINUS RHYTHM Electronically Signed On 01-05-2023 1:26:20 EDT by Kee Dietz MD - 01/05/2023 IMPRESSION: SINUS RHYTHM Electronically Signed On 01-05-2023 1:26:20 EDT by Kee Mishra [facility] Troponin I.cardiac [Mass/Vol ]on 01-05-2023 Interpretation and review of laboratory results Normal [facility] Patients with high levels of Biotin oral intake (ie >5 mg/day) may have falsely decreased Troponin levels. [facility] Vital signson 01-05-2023 Heart rate 88 /min bpm [facility] XR Chest Single viewon 01-05 No focal consolidation or pulmonary edema. Report Dictated on Electronically Signed By: Otf Gutierrez Electronically Signed Date/Time: 01/05/2023 2:13 AM EDT [facility] Patient Name: TITA KEITH : 1935 Exam Date/Time: 01/05/2023 01:56 Procedure: XR CHEST 1 VIEW Ordering Provider: MISHRA NICHOLAS Reason For Exam: TRAUMA PORTABLE CHEST CLINICAL INDICATION: Chest pain, trauma TECHNIQUE: Portable AP COMPARISON: None FINDINGS: No focal consolidation or pulmonary edema. No pleural effusions or pneumothorax. The cardiac and mediastinal silhouettes are normal. Degenerative change of the thoracic spine is noted. [facility] Otf Gutierrez MD - 01/05/2023 Patient [...] Electronically Signed Date/Time: 01/05/2023 2:13 AM EDT [facility] Radiology Study observation (narrative) [facility] XR Chest Single viewOrdered By: Otf Gutierrez on 01-05-2023 [facility] Work Phone: XR Hip - right 3 Viewson No fracture or dislocation. Report Dictated on Electronically Signed By: Otf Gutierrez Electronically Signed Date/Time: 01/05/2023 2:14 AM EDT [facility] Patient Name: TITA KEITH : 1935 [...] identified. There is no soft tissue abnormality. [facility] Otf Gutierrez MD - 01/05/2023 Patient [...] Electronically Signed Date/Time: 01/05/2023 2:14 AM EDT [facility] Radiology Study observation (narrative) [facility] Bhanu ralph Glucose,Bedsideon 03-06-2022 Glucose [Mass/Vol] 183 mg/dL High 70-100 [facility] [employer] [facility] Comment on above: Result Comment: Test performed by glucose meter. Results may be 10%-15% lower than serum/plasma values. (CLIA ID [id number]) Performed By: #### B GLU #### [facility] [address] [place] [address] Glucose [Mass/Vol] 145 mg/dL High [address] [facility] Comment on above: Result Comment: Test performed by glucose meter. Results may be 10%-15% lower than serum/plasma values. (CLIA ID [id number]) Performed By: #### B GLU #### [facility] [address] [place] [address] Glucose,Bedsideon 03-05-2022 Glucose [Mass/Vol] 190 mg/dL High [address] [facility] Comment on above: Result Comment: Test performed by glucose meter. Results may be 10%-15% lower than serum/plasma values. (CLIA ID [id number]) Performed By: #### B GLU #### [facility] [address] [place] [address] Glucose [Mass/Vol] 210 mg/dL [address] Comment on above: Result Comment: Test performed by glucose meter. Results may be 10%-15% lower than serum/plasma values. (CLIA ID [id number]) Performed By: #### B GLU #### [facility] [address] [place] [place] [address] Glucose [Mass/Vol] 112 mg/dL [address] Comment on above: Result Comment: Test performed by glucose meter. Results may be 10%-15% lower than serum/plasma values. (CLIA ID [id number]) Performed By: #### B GLU #### [facility] [address] [place] [address] Glucose,Bedsideon 03-04-2022 Glucose [Mass/Vol] 186 mg/dL High [address] Comment on above: Result Comment: Test performed by glucose meter. Results may be 10%-15% lower than serum/plasma values. (CLIA ID [id number]) Performed By: #### B GLU #### [facility] [address] [place] [address] Glucose [Mass/Vol] 127 mg/dL [facility] [address] Comment on above: Result Comment: Test performed by glucose meter. Results may be 10%-15% lower than serum/plasma values. (CLIA ID [id number]) Performed By: #### B GLU #### [facility] [address] [place] [address] Glucose [Mass/Vol] 192 mg/dL High 70-100 [facility] Comment on above: Result Comment: Test performed by glucose meter. Results may be 10%-15% lower than serum/plasma values. (CLIA ID [id number]) Performed By: #### B GLU #### [facility] [address] [place] [address] Glucose [Mass/Vol] 128 mg/dL High 70-100 [facility] Comment on above: Result Comment: Test performed by glucose meter. Results may be 10%-15% lower than serum/plasma values. (CLIA ID [id number]) Performed By: #### B GLU #### [place] [address] [place] [address] Basic Metabolic Panelon 05-1 -2021 Anion gap [Moles/Vol] 4 mmol/L Normal 3-13 [facility] Comment on above: Performed By: #### B MP3 #### [place] [address] [place] [address] Calcium [Mass/Vol] 8.9 mg/dL Normal 8.4-10.4 [facility] Comment on above: Performed By: #### B MP3 #### [place] [address] [place] [address] CO2 [Moles/Vol] 25 mmol/L Normal 22-30 [facility] Comment on above: Performed By: #### B MP3 #### [facility] [address] [place] [address] Glucose [Mass/Vol] 125 mg/dL High 70-100 [facility] Comment on above: Performed By: #### B MP3 #### [place] [address] [place] [address] Urea nitrogen [Mass/Vol] 15 mg/dL Normal 7-17 [facility] Comment on above: Performed By: #### B MP3 #### [facility] [address] [place] [address] Creatinine [Mass/Vol] 1.12 mg/dL Normal 0.52-1.25 [facility] Comment on above: Performed By: #### B MP3 #### [facility] [address] [place] [address] GFR/1.73 sq M.predicted among blacks MDRD (S/P/Bld) [Vol rate/Area] 68.4 mL/min/{1.73_m2} Normal >60 [facility] Comment on above: Performed By: #### B MP3 #### [facility] [address] [place] [address] GFR/1.73 sq M.predicted among non-blacks MDRD (S/P/Bld) [Vol rate/Area] 59.1 mL/min/{1.73_m2} Abnormal >60 [facility] Comment on above: Result Comment: KDIG O [...] secretion. Performed By: #### B MP3 #### [facility] [address] [place] [address] Chloride [Moles/Vol] 106 mmol/L Normal 98-107 [facility] Comment on above: Performed By: #### B MP3 #### [facility] [address] [place] [place] [address] Potassium [Moles/Vol] 4.2 mmol/L Normal 3.5-5.1 [facility] Comment on above: Performed By: #### B MP3 #### [facility] [address] [place] [address] Sodium [Moles/Vol] 136 mmol/L Normal 135-145 [facility] Comment on above: Performed By: #### B MP3 #### [facility] [address] [place] [address] CULTURE URINEon 03-03-2022 CULTURE URINE CULTURE URINE --> Status: F No growth (<1,000 CFU/ml). Normal [facility] Comment on above: Performed By: #### B GLU #### [facility] [address] [place] [address] Glucose,Bedsideon 03-03-2022 Glucose [Mass/Vol] 235 mg/dL High 70-100 [facility] Comment on above: Result Comment: Test performed by glucose meter. Results may be 10%-15% lower than serum/plasma values. (CLIA ID [id number]) Performed By: #### B GLU #### [facility] [address] [place] [address] Glucose [Mass/Vol] 156 mg/dL High 70-100 [facility] Comment on above: Result Comment: Test performed by glucose meter. Results may be 10%-15% lower than serum/plasma values. (CLIA ID [id number]) Performed By: #### B GLU #### [facility] [address] [place] [address] Glucose [Mass/Vol] 119 mg/dL High 70-100 [facility] Comment on above: Result Comment: Test performed by glucose meter. Results may be 10%-15% lower than serum/plasma values. (CLIA ID [id number]) Performed By: #### B GLU #### [facility] [address] [place] [address] Glucose [Mass/Vol] 110 mg/dL High 70-100 [facility] Comment on above: Result Comment: Test performed by glucose meter. Results may be 10%-15% lower than serum/plasma values. (CLIA ID [id number]) Performed By: #### B GLU #### [facility] [address] [place] [address] Basic Metabolic Panelon 05- Anion gap [Moles/Vol] 10 mmol/L Normal 3-13 [facility] Comment on above: Performed By: #### B GLU #### [facility] [address] [place] [address] Calcium [Mass/Vol] 9.6 mg/dL Normal 8.4-10.4 [facility] Comment on above: Performed By: #### B GLU #### [facility] [address] [place] [address] CO2 [Moles/Vol] 24 mmol/L Normal 22-30 [facility] Comment on above: Performed By: #### B GLU #### [facility] [address] [place] [place] [address] Glucose [Mass/Vol] 196 mg/dL High 70-100 [facility] Comment on above: Performed By: #### B GLU #### [facility] [address] [place] [address] Urea nitrogen [Mass/Vol] 23 mg/dL High 7-17 [facility] Comment on above: Performed By: #### B GLU #### [facility] [address] [place] [address] Creatinine [Mass/Vol] 1.27 mg/dL High 0.52-1.25 [facility] Comment on above: Performed By: #### B GLU #### [facility] [address] [place] [place] [address] GFR/1.73 sq M.predicted among blacks MDRD (S/P/Bld) [Vol rate/Area] 58.8 mL/min/{1.73_m2} Abnormal >60 [facility] Comment on above: Performed By: #### B GLU #### [facility] [address] [place] [address] GFR/1.73 sq M.predicted among non-blacks MDRD (S/P/Bld) [Vol rate/Area] 50.7 mL/min/{1.73_m2} Abnormal >60 [facility] Comment on above: Result Comment: KDIG O [...] secretion. Performed By: #### B GLU #### [facility] [address] [place] [place] [address] Potassium [Moles/Vol] 3.7 mmol/L Normal 3.5-5.1 [facility] Comment on above: Performed By: #### B GLU #### [facility] [address] [place] [address] Chloride [Moles/Vol] 103 mmol/L Normal 98-107 [facility] Comment on above: Performed By: #### B GLU #### [facility] [address] [place] [address] Sodium [Moles/Vol] 137 mmol/L Normal 135-145 [facility] Comment on above: Performed By: #### B GLU #### [facility] [address] [place] [place] [address] Glucose,Bedsideon 03-02-2022 Glucose [Mass/Vol] 112 mg/dL High 70-100 [facility] Comment on above: Result Comment: Test performed by glucose meter. Results may be 10%-15% lower than serum/plasma values. (CLIA ID [id number]) Performed By: #### B GLU #### [facility] [address] [place] [address] Glucose [Mass/Vol] 347 mg/dL High 70-100 [facility] Comment on above: Result Comment: Test performed by glucose meter. Results may be 10%-15% lower than serum/plasma values. (CLIA ID [id number]) Performed By: #### B GLU #### [facility] [address] [place] [place] [address] Glucose [Mass/Vol] 240 mg/dL High 70-100 [facility] Comment on above: Result Comment: Test performed by glucose meter. Results may be 10%-15% lower than serum/plasma values. (CLIA ID [id number]) Performed By: #### B GLU #### [facility] [address] [place] [address] Glucose [Mass/Vol] 156 mg/dL High 70-[address] [place] [address] Comment on above: Result Comment: Test performed by glucose meter. Results may be 10%-15% lower than serum/plasma values. (CLIA ID [id number]) Performed By: #### B GLU #### [facility] [address] [place] [address] Glucose [Mass/Vol] 202 mg/dL [address] Comment on above: Result Comment: Test performed by glucose meter. Results may be 10%-15% lower than serum/plasma values. (CLIA ID [id number]) Performed By: #### B GLU #### [facility] [address] [place] [address] Glucose [Mass/Vol] 364 mg/dL [address] Comment on above: Result Comment: Test performed by glucose meter. Results may be 10%-15% lower than serum/plasma values. (CLIA ID [id number]) Performed By: #### B GLU #### [facility] [address] [place] [address] Hemogram w/ Autodiffon 03-02 Abs Baso Cnt 0.0 10*3/uL Normal 0.0-0.2 [facility] Comment on above: Performed By: #### B GLU #### [facility] [address] [place] [address] Abs Neutrophile Cnt 2.8 10*3/uL Normal 1.8-7.0 [facility] Comment on above: Performed By: #### B GLU #### [facility] [address] [place] [address] Basophils/100 WBC (Bld) 0.4 % Normal 0.0-2.0 [facility] Comment on above: Performed By: #### B GLU #### [facility] [address] [place] [address] Eosinophils (Bld) [#/Vol] 0.1 10*3/uL Normal 0.0-0.5 [facility] Comment on above: Performed By: #### B GLU #### [facility] [address] [place] [place] [address] Eosinophils/100 WBC (Bld) 2.0 % Normal 1.0-6.0 [facility] Comment on above: Performed By: #### B GLU #### [facility] [address] [place] [place] [address] Erythrocyte distribution width (RBC) [Ratio] 13.3 % Normal 11.5-14.5 [facility] Comment on above: Performed By: #### B GLU #### [facility] [address] [place] [address] Granulocytes/100 WBC (Bld) 59.3 % Normal 40.0-80.0 [facility] Comment on above: Performed By: #### B GLU #### [facility] [address] [place] [address] Hematocrit (Bld) [Volume fraction] 39.0 % Low 40.0-52.0 [facility] Comment on above: Performed By: #### B GLU #### [facility] [address] [place] [address] Hemoglobin (Bld) [Mass/Vol] 13.2 g/dL Normal 13.0-18.0 [facility] Comment on above: Performed By: #### B GLU #### [facility] [address] [place] [address] Lymphocytes (Bld) [#/Vol] 1.4 10*3/uL Normal 1.0-4.3 [facility] Comment on above: Performed By: #### B GLU #### [facility] [address] [place] [place] [address] Lymphocytes/100 WBC (Bld) 28.6 % Normal 20.0-40.0 [facility] Comment on above: Performed By: #### B GLU #### [facility] [address] [place] [address] MCH (RBC) [Entitic mass] 29.6 pg Normal 26.0-34.0 [facility] Comment on above: Performed By: #### B GLU #### [facility] [address] [place] [address] MCHC 33.8 % Normal 32.0-36.0 [facility] Comment on above: Performed By: #### B GLU #### [facility] [address] [place] [address] MCV (RBC) [Entitic vol] 87.7 fL Normal 80.0-98.0 [facility] Comment on above: Performed By: #### B GLU #### [facility] [address] [place] [address] Monocytes (Bld) [#/Vol] 0.5 10*3/uL Normal 0.0-0.8 [facility] Comment on above: Performed By: #### B GLU #### [facility] [address] [place] [address] Monocytes/100 WBC (Bld) 9.7 % Normal 2.0-10.0 [facility] Comment on above: Performed By: #### B GLU #### [facility] [address] [place] [address] Platelet mean volume (Bld) [Entitic vol] 9.0 fL Normal 7.4-12.4 [facility] Comment on above: Result Comment: MPV is a calculated measurement using platelet volume ratio. Performed By: #### B GLU #### [facility] [address] [place] [address] Platelets (Bld) [#/Vol] 163 10*3/uL Normal 140-440 [facility] Comment on above: Performed By: #### B GLU #### [facility] [address] [place] [address] RBC (Bld) [#/Vol] 4.45 10*6/uL Normal 4.40-5.90 [facility] Comment on above: Performed By: #### B GLU #### [facility] [address] [place] [address] WBC (Bld) [#/Vol] 4.7 10*3/uL Normal 3.6-10.7 [facility] Comment on above: Performed By: #### B GLU #### [facility] [address] [place] [address] Beta Hydroxybutyrateon 03-01 Beta Hydroxybutyrate 5.06 mg/dL High 0.20-2.81 [facility] Comment on above: Performed By: #### B GLU #### [facility] [address] [place] [address] Comp Metabolic Panelon 03-01 ALP [Catalytic activity/Vol] 118 U/L Normal 38-126 [facility] Comment on above: Performed By: #### B GLU #### [facility] [address] [place] [address] ALT [Catalytic activity/Vol] 27 U/L Normal 0-49 [facility] Comment on above: Result Comment: The ALT test is performed by an updated assay method. Please note that the reference intervals have been changed and are now sex specific. Performed By: #### B GLU #### [facility] [address] [place] [address] Anion gap [Moles/Vol] 7 mmol/L Normal 3-13 [facility] Comment on above: Performed By: #### B GLU #### [facility] [address] [place] [address] AST [Catalytic activity/Vol] 28 U/L Normal 15-46 [facility] Comment on above: Performed By: #### B GLU #### [facility] [address] [place] [address] Calcium [Mass/Vol] 9.2 mg/dL Normal 8.4-10.4 [facility] Comment on above: Performed By: #### B GLU #### [facility] [address] [place] [place] [address] CO2 [Moles/Vol] 26 mmol/L Normal 22-30 [facility] Comment on above: Performed By: #### B GLU #### [facility] [address] [place] [address] Glucose [Mass/Vol] 544 mg/dL Critically high 70-100 [facility] Comment on above: Performed By: #### B GLU #### [facility] [address] [place] [address] Protein [Mass/Vol] 7.0 g/dL Normal 6.3-8.2 [facility] Comment on above: Performed By: #### B GLU #### [facility] [address] [place] [address] Urea nitrogen [Mass/Vol] 26 mg/dL High 7-17 [facility] Comment on above: Performed By: #### B GLU #### [facility] [address] [place] [place] [address] Bilirubin [Mass/Vol] 0.7 mg/dL Normal 0.2-1.3 [facility] Comment on above: Performed By: #### B GLU #### [facility] [address] [place] [address] Creatinine [Mass/Vol] 1.33 mg/dL High 0.52-1.25 [facility] Comment on above: Performed By: #### B GLU #### [facility] [address] [place] [address] GFR/1.73 sq M.predicted among blacks MDRD (S/P/Bld) [Vol rate/Area] 55.6 mL/min/{1.73_m2} Abnormal >60 [facility] Comment on above: Performed By: #### B GLU #### [facility] [address] [place] [place] [address] GFR/1.73 sq M.predicted among non-blacks MDRD (S/P/Bld) [Vol rate/Area] 48.0 mL/min/{1.73_m2} Abnormal >60 [facility] Comment on above: Result Comment: KDIG O [...] secretion. Performed By: #### B GLU #### [facility] [address] [place] [place] [address] Albumin [Mass/Vol] 4.2 g/dL Normal 3.5-5.0 [facility] Comment on above: Performed By: #### B GLU #### [facility] [address] [place] [address] Chloride [Moles/Vol] 97 mmol/L Low 98-107 [facility] Comment on above: Performed By: #### B GLU #### [facility] [address] [place] [address] Potassium [Moles/Vol] 4.9 mmol/L Normal 3.5-5.1 [facility] Comment on above: Performed By: #### B GLU #### [facility] [address] [place] [address] Sodium [Moles/Vol] 130 mmol/L Low 135-145 [facility] Comment on above: Performed By: #### B GLU #### [facility] [address] [place] [address] Complete Urinalysison 2021 Appearance (U) Clear Normal Clear [facility] Comment on above: Result Comment: . Performed By: #### B GLU #### [facility] [address] [place] [address] Bilirubin,Urine Negative Normal Negative [facility] Comment on above: Result Comment: . Performed By: #### B GLU #### [facility] [address] [place] [address] Color (U) LIGHT YELLOW Normal Lt. Yellow [facility] Comment on above: Result Comment: . Performed By: #### B GLU #### [facility] [address] [place] [address] Glucose Ql (U) > 1,000 Abnormal Normal (<70) [facility] Comment on above: Result Comment: . Performed By: #### B GLU #### [facility] [address] [place] [address] Ketone,Urine Negative Normal Negative [facility] Comment on above: Result Comment: . Performed By: #### B GLU #### [facility] [address] [place] [address] Leukocytes,Urine Negative Normal Negative [facility] Comment on above: Result Comment: . Performed By: #### B GLU #### [facility] [address] [place] [address] Nitrites,Urine Negative Normal Negative [facility] Comment on above: Result Comment: . Performed By: #### B GLU #### [facility] [address] [place] [address] Occult Blood,Urine Negative Normal Negative [facility] Comment on above: Result Comment: . Performed By: #### B GLU #### [facility] [address] [place] [address] pH,Urine 5.5 Normal 5.0-8.0 [facility] Comment on above: Result Comment: . Performed By: #### B GLU #### [facility] [address] [place] [address] Specific [place],Urine 1.026 Normal 1.005 - 1.030 [facility] Comment on above: Result Comment: . Performed By: #### B GLU #### [facility] [address] [place] [address] Total Protein,Urine Negative Normal Negative [facility] Comment on above: Result Comment: . Performed By: #### B GLU #### [facility] [address] [place] [place] [address] Urobilinogen,Urine Normal Normal Normal (0-1) [facility] Comment on above: Result Comment: . Performed By: #### B GLU #### [facility] [address] [place] [place] [address] Glucose,Bedsideon 03-01-2022 Glucose [Mass/Vol] 323 mg/dL High 70-100 [facility] Comment on above: Result Comment: Test performed by glucose meter. Results may be 10%-15% lower than serum/plasma values. (CLIA ID [id number]) Performed By: #### B GLU #### [facility] [address] [place] [place] [address] Glucose [Mass/Vol] 275 mg/dL High 70-100 [facility] Comment on above: Result Comment: quantitative associate Notified; Test performed by glucose meter. Results may be 10%-15% lower than serum/plasma values. (CLIA ID [id number]) Performed By: #### B GLU #### [facility] [address] [place] [place] [address] Hemoglobin A1Con 03-01-2022 Glucose [Mass/Vol] 355 mg/dL Normal [facility] Comment on above: Performed By: #### B GLU #### [facility] [address] [place] [place] [address] HbA1c (Bld) [Mass fraction] % Abnormal [facility] Comment on above: Result Comment: Norm al less than 5.7% Prediabetes 5.7% to 6.4% Diabetes 6.5% or higher --HgbA1C levels may not be accurate in patients who have renal disease, received recent blood transfusions, are anemic, or who have dyshemoglobinemia. Performed By: #### B GLU #### [facility] [address] [place] [place] [address] Hemogram w/ Autodiffon 03-01 Abs Baso Cnt 0.0 10*3/uL Normal 0.0-0.2 [facility] Comment on above: Performed By: #### B GLU #### [facility] [address] [place] [address] Abs Neutrophile Cnt 2.5 10*3/uL Normal 1.8-7.0 [facility] Comment on above: Performed By: #### B GLU #### [facility] [address] [place] [address] Basophils/100 WBC (Bld) 0.3 % Normal 0.0-2.0 [facility] Comment on above: Performed By: #### B GLU #### [facility] [address] [place] [address] Eosinophils (Bld) [#/Vol] 0.0 10*3/uL Normal 0.0-0.5 [facility] Comment on above: Performed By: #### B GLU #### [facility] [address] [place] [address] Eosinophils/100 WBC (Bld) 0.5 % Low 1.0-6.0 [facility] Comment on above: Performed By: #### B GLU #### [facility] [address] [place] [place] [address] Erythrocyte distribution width (RBC) [Ratio] 12.4 % Normal 11.5-14.5 [facility] Comment on above: Performed By: #### B GLU #### [facility] [address] [place] [address] Granulocytes/100 WBC (Bld) 67.7 % Normal 40.0-80.0 [facility] Comment on above: Performed By: #### B GLU #### [facility] [address] [place] [address] Hematocrit (Bld) [Volume fraction] 35.8 % Low 40.0-52.0 [facility] Comment on above: Performed By: #### B GLU #### [facility] [address] [place] [address] Hemoglobin (Bld) [Mass/Vol] 12.5 g/dL Low 13.0-18.0 [facility] Comment on above: Performed By: #### B GLU #### [facility] [address] [place] [address] Lymphocytes (Bld) [#/Vol] 0.8 10*3/uL Low 1.0-4.3 [facility] Comment on above: Performed By: #### B GLU #### [facility] [address] [place] [place] [address] Lymphocytes/100 WBC (Bld) 21.5 % Normal 20.0-40.0 [facility] Comment on above: Performed By: #### B GLU #### [facility] [address] [place] [place] [address] MCH (RBC) [Entitic mass] 30.5 pg Normal 26.0-34.0 [facility] Comment on above: Performed By: #### B GLU #### [facility] [address] [place] [address] MCHC 34.9 % Normal 32.0-36.0 [facility] Comment on above: Performed By: #### B GLU #### [facility] [address] [place] [address] MCV (RBC) [Entitic vol] 87.3 fL Normal 80.0-98.0 [facility] Comment on above: Performed By: #### B GLU #### [facility] [address] [place] [address] Monocytes (Bld) [#/Vol] 0.4 10*3/uL Normal 0.0-0.8 [facility] Comment on above: Performed By: #### B GLU #### [facility] [address] [place] [address] Monocytes/100 WBC (Bld) 9.7 % Normal 2.0-10.0 [facility] Comment on above: Performed By: #### B GLU #### [facility] [address] [place] [address] Platelet mean volume (Bld) [Entitic vol] 10.8 fL Normal 7.4-12.4 [facility] Comment on above: Result Comment: MPV is a calculated measurement using platelet volume ratio. Performed By: #### B GLU #### [facility] [address] [place] [address] Platelets (Bld) [#/Vol] 152 10*3/uL Normal 140-440 [facility] Comment on above: Performed By: #### B GLU #### [facility] [address] [place] [address] RBC (Bld) [#/Vol] 4.10 10*6/uL Low 4.40-5.90 [facility] Comment on above: Performed By: #### B GLU #### [facility] [address] [place] [address] WBC (Bld) [#/Vol] 3.7 10*3/uL Normal 3.6-10.7 [facility] Comment on above: Performed By: #### B GLU #### [facility] [address] [place] [address] Osmolality,Serumon 2 Osmolality,Serum 303 mosm/kg High 280-300 [facility] Comment on above: Order Comment: Speci men moderately hemolyzed. Performed By: #### B GLU #### [facility] [address] [place] [place] [address] Venous Blood Gas Respiratory on 03-01-2022 Base Excess 0.9 mmol/L Normal -3.0-3.0 [facility] Comment on above: Performed By: #### B GLU #### [facility] [address] [place] [address] CO2 [Moles/Vol] 27.0 mmol/L Normal 24.0-28.0 [facility] Comment on above: Result Comment: Perf ormed by BEAT[employer] ID: [id number] [place] Performed By: #### B GLU #### [facility] [address] [place] [address] HCO3 (Bld) [Moles/Vol] 25.7 mmol/L Normal 23.0-27.0 [facility] Comment on above: Performed By: #### B GLU #### [facility] [address] [place] [address] Oxygen (Bld) [Partial pressure] 105.1 mm[Hg] High 30.0-50.0 [facility] Comment on above: Performed By: #### B GLU #### [facility] [address] [place] [address] Oxygen saturation in Blood 98.1 % High 60.0-80.0 [facility] Comment on above: Performed By: #### B GLU #### [facility] [address] [place] [place] [address] pCO2 41.0 mm[Hg] Normal 40.0-55.0 [facility] Comment on above: Performed By: #### B GLU #### [facility] [address] [place] [address] pH 7.405 Normal 7.330-7.430 [facility] Comment on above: Performed By: #### B GLU #### [facility] [address] [place] [address] Vital Signs Date Time Vital Sign Value Performing Clinician Facility 04-02-2025 08:11-0400 Body temperature 97.3 [degF] Jj Lara MD Work Phone: [facility] 04-02-2025 08:11-0400 Diastolic blood pressure 107 mm[Hg] Jj Lara MD Work Phone: [facility] 04-02-2025 08:11-0400 Heart rate 71 /min Jj Lara MD Work Phone: [facility] 04-02-2025 08:11-0400 Respiratory rate 16 /min Jj Lara MD Work Phone: [facility] 04-02-2025 08:11-0400 SaO2% (BldA) [Mass fraction] 95 % Jj Lara MD Work Phone: [facility] 04-02-2025 08:11-0400 Systolic blood pressure 165 mm[Hg] Jj Lara MD Work Phone: [facility] 03-30-2025 17:58-0400 Body height 188 cm Jj Lara MD Work Phone: [facility] 03-30-2025 17:58-0400 Body mass index (BMI) [Ratio] 16.69 kg/m2 Jj Lara MD Work Phone: [facility] 03-30-2025 17:58-0400 Body weight 58.97 kg Jj Lara MD Work Phone: [facility] 12-12-2023 12:22-0500 Heart rate 79 /min Cody Lerma MD Work Phone: [facility] 12-12-2023 12:22-0500 Respiratory rate 18 /min Cody Lerma MD Work Phone: [facility] 12-12-2023 12:22-0500 SaO2% (BldA) [Mass fraction] 93 % Cody Lerma MD Work Phone: [facility] 12-12-2023 09:42-0500 Body temperature 98.1 [degF] Cody Lerma MD Work Phone: [facility] 12-12-2023 09:42-0500 Diastolic blood pressure 77 mm[Hg] Cody Lerma MD Work Phone: [facility] 12-12-2023 09:42-0500 Systolic blood pressure 143 mm[Hg] Cody Lerma MD Work Phone: [facility] 12-11-2023 14:54-0500 Body height 188 cm Cody Lerma MD Work Phone: [facility] 12-07-2023 14:38-0500 Body mass index (BMI) [Ratio] 16.63 kg/m2 Cody Lerma MD Work Phone: [facility] 12-07-2023 14:38-0500 Body weight 58.74 kg Cody Lerma MD Work Phone: [facility] 09-23-2023 16:01-0500 Body height 185.42 cm [facility] 09-23-2023 16:01-0500 Body mass index (BMI) [Ratio] 15.9 kg/m2 [facility] 09-23-2023 16:01-0500 Body temperature 97.6 [degF] [facility] 09-23-2023 16:01-0500 Body weight 54.8 kg [facility] 09-23-2023 16:01-0500 Diastolic blood pressure 86 mm[Hg] [facility] 09-23-2023 16:01-0500 Heart rate 76 /min [facility] 09-23-2023 16:01-0500 Respiratory rate 16 /min [facility] 09-23-2023 16:01-0500 SaO2% (BldA) [Mass fraction] 95 % [facility] 09-23-2023 16:01-0500 Systolic blood pressure 150 mm[Hg] [facility] 09-19-2023 08:02-0500 Body temperature 97 [degF] Bernard Phillips MD Work Phone: [facility] 09-19-2023 08:02-0500 Diastolic blood pressure 69 mm[Hg] Bernard Phillips MD Work Phone: [facility] 09-19-2023 08:02-0500 Heart rate 62 /min Bernard Phillips MD Work Phone: [facility] 09-19-2023 08:02-0500 Respiratory rate 16 /min Bernard Phillips MD Work Phone: [facility] 09-19-2023 08:02-0500 SaO2% (BldA) [Mass fraction] 97 % Bernard Phillips MD Work Phone: [facility] 09-19-2023 08:02-0500 Systolic blood pressure 128 mm[Hg] Bernard Phillips MD Work Phone: [facility] 09-14-2023 09:31-0500 Body height 188 cm Bernard Phillips MD Work Phone: [facility] 01-26-2023 08:41-0400 Diastolic blood pressure 73 mm[Hg] Karel Ghosh DO Work Phone: [facility] 01-26-2023 08:41-0400 Heart rate 116 /min Karel Ghosh DO Work Phone: [facility] 01-26-2023 08:41-0400 Systolic blood pressure 111 mm[Hg] Karel Ghosh DO Work Phone: [facility] 01-26-2023 08:33-0400 Body temperature 97.5 [degF] Karel Ghosh DO Work Phone: [facility] 01-26-2023 08:33-0400 Respiratory rate 17 /min Karel Ghosh DO Work Phone: [facility] 01-26-2023 08:33-0400 SaO2% (BldA) [Mass fraction] 97 % Karel Ghosh DO Work Phone: [facility] 01-20-2023 16:13-0400 Body height 188 cm Karel Ghosh DO Work Phone: [facility] 01-20-2023 16:13-0400 Body mass index (BMI) [Ratio] 15.88 kg/m2 Karel Jabour DO Work Phone: [facility] 01-20-2023 16:13-0400 Body weight 56.11 kg Karel Ghosh DO Work Phone: [facility] 01-05-2023 04:22-0400 Diastolic blood pressure 88 mm[Hg] Kee Mishra MD Work Phone: [facility] 01-05-2023 04:22-0400 Heart rate 90 /min Kee Mishra MD Work Phone: [facility] 01-05-2023 04:22-0400 Respiratory rate 17 /min Kee Mishra MD Work Phone: [facility] 01-05-2023 04:22-0400 SaO2% (BldA) [Mass fraction] 98 % Kee Mishra MD Work Phone: [facility] 01-05-2023 04:22-0400 Systolic blood pressure 147 mm[Hg] Kee Mishra MD Work Phone: [facility] 01-05-2023 01:35-0400 Body height 188 cm Kee Mishra MD Work Phone: [facility] 01-05-2023 01:35-0400 Body mass index (BMI) [Ratio] 20.54 kg/m2 Kee Mishra MD Work Phone: [facility] 01-05-2023 01:35-0400 Body weight 72.58 kg Kee Mishra MD Work Phone: [facility] 01-05-2023 01:15-0400 Body temperature 98.49 [degF] Kee Mishra MD Work Phone: [facility] Encounters Encounter Date Encounter Type Care Provider Facility Start: 08-20-2025 ambulatory Javy Deperro OLS Facili ty:[facility] Start: 08-18-2025 ambulatory Javy Deperro OLS Facili ty:[facility] Start: 07-08-2025 ambulatory Javy Deperro OLS Facili ty:[facility] Start: 04-21-2025 End: 04-21-2025 Telephone encounter Trae Deleon MD Work Phone: [facility] Clinical Communication Comment on above: Request For Order(s) ; Cancelled Appointment Start: 04-16-2025 ambulatory Javy Ross ty:[facility] Start: 04-15-2025 End: 04-15-2025 Postop follow up visit related to original px Joselito Liu PA-C Work Phone: [facility] Comment on above: Closed nondisplaced intertrochanteric fracture of right femur, initial encounter (HCC) (Primary Dx); S/P ORIF (open reduction internal fixation) fracture Start: 04-15-2025 End: 04-15-2025 ambulatory [facility] Start: 04-07-2025 ambulatory Javy Ross ty:[facility] Start: 04-02-2025 End: 04-03-2025 Telephone encounter Trae Deleon MD Work Phone: [facility] Clinical Communication Comment on above: Other (IPO needs shraddha eduled) Start: 03-30-2025 End: 04-02-2025 Evaluation and management of inpatient Jj Lara MD Work Phone: [facility] Medical Surgical Unit MSU 1E Comment on above: Closed nondisplaced intertrochanteric fracture of right femur, initial encounter (HCC) (Primary Dx) Start: 03-03-2025 ambulatory Javy Ross ty:[facility] Start: 03-03-2025 Registered Referred Javy Lynn MD -[facility] Start: 03-02-2025 End: 03-02-[address] Javy Lynn Sr. DO Work Phone: [facility] Work Phone: Start: 03-02-2025 End: 03-02-2025 Departed Referred Jvay Lynn MD -[facility] Start: 03-02-2025 Registered Referred Javy [facility] MD -[facility] Start: 03-02-2025 End: 03-02-2025 ambulatory Javy Lynn Sr. Facility:[facility] Start: 02-17-2025 End: 02-17-[address] Javy Lynn Sr. DO Work Phone: [facility] Work Phone: Start: 02-17-2025 End: 02-17-2025 Departed Referred Javy [facility] Start: 02-17-2025 Registered Referred Javy [facility] Start: 02-17-2025 End: 02-17-2025 ambulatory Javy Lynn Sr. Facility:[facility] Start: 02-12-2025 End: 02-12-[address] Javy Lynn Sr. DO Work Phone: [facility] Work Phone: Start: 02-12-2025 End: 02-12-2025 Departed Referred Javy [facility] Start: 02-12-2025 End: 02-12-2025 ambulatory Javy REDDY Facility:[facility] Start: 02-11-2025 End: 02-11-2025 [facility] Start: 02-11-2025 [facility] Start: 02-11-2025 End: 02-11-2025 ambulatory Javy Lynn Sr. Facility:[facility] Start: 11-26-2024 ambulatory Javy Franklini ty:[facility] Start: 11-26-2024 [facility] Start: 11-07-2024 ambulatory Javy REDDY Facili ty:[facility] Start: 11-07-2024 Registered Referred Javy [facility] Start: 10-07-2024 End: 10-07-2024 ambulatory Javy REDDY Facility:[facility] Start: 09-17-2024 ambulatory Javy REDDY Facili ty:[facility] Start: 09-02-2024 End: 09-02-2024 ambulatory Javy REDDY Facility:[facility] Start: 08-27-2024 End: 08-27-2024 ambulatory Javy REDDY Facility:[facility] Start: 01-24-2024 End: 01-24-2024 ambulatory [facility] Work Phone: Start: 01-24-2024 End: 01-24-2024 Departed Referred [facility] Start: 01-24-2024 Registered Referred [facility] Start: 01-14-2024 End: 01-14-2024 ambulatory [facility] Work Phone: Start: 01-14-2024 End: 01-14-2024 Departed Referred [facility] Start: 12-25-2023 Registered Referred [facility] Start: 12-24-2023 Registered Referred [facility] Start: 12-19-2023 Registered Referred [facility] Start: 12-06-2023 End: 12-12-2023 Evaluation and management of inpatient Cody Lerma MD Work Phone: [facility] Cardiac Progressive Care Unit PCU 2E Comment on above: Pneumonia due to inf ectious organism, unspecified laterality, unspecified part of lung (Primary Dx); Sepsis, due to unspecified organism, unspecified whether acute organ dysfunction present (HCC); RSV (acute bronchiolitis due to respiratory syncytial virus) Start: 12-05-2023 End: 12-05-2023 ambulatory [facility] Work Phone: Start: 12-05-2023 End: 12-05-2023 Departed Referred [facility] Start: 11-02-2023 End: 11-02-2023 ambulatory [facility] Work Phone: Start: 11-02-2023 End: 11-02-2023 Departed Referred [facility] Start: 10-01-2023 Registered Referred [facility] Start: 09-25-2023 Registered Referred [facility] Start: 09-23-2023 End: 09-23-2023 Emergency department patient visit [facility]-Emergency Department Work Phone: Start: 09-10-2023 End: 09-19-2023 Evaluation and management of inpatient Bernard Phillips MD Work Phone: [facility] Medical Surgical Unit MSU 4S Comment on above: COVID-19 (Primary Dx ); Hypoxia; Edema of right upper arm; 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 [address] Comment on above: Arrived Start: 01-05-2023 End: 01-05-2023 Emergency department patient visit Kee Mishra MD Work Phone: [facility] ED Comment on above: Fall from ground lev el (Primary Dx); Discharge of left eye Start: 03-01-2022 End: 03-06-2022 Evaluation and management of inpatient Dudley Cobb [facility] Procedures Date Procedure Procedure Detail Performing Clinician Start: 04-02-2025 Glucose quantitative blood xcpt reagent strip Antonio C Zay DO Work Phone: Start: 04-01-2025 Glucose quantitative blood xcpt reagent strip Antonio C Azy DO Work Phone: Start: 04-01-2025 Glucose quantitative blood xcpt reagent strip Antonio C Zay DO Work Phone: Start: 04-01-2025 Glucose quantitative blood xcpt reagent strip Antonio C Zay DO Work Phone: Start: 04-01-2025 End: 04-01-2025 Basic metabolic panel calcium total Antonio Sainzer DO Work Phone: Start: 03-31-2025 Glucose quantitative blood xcpt reagent strip Antonio Sainzer DO Work Phone: Start: 03-31-2025 End: 03-31-2025 Glucose quantitative blood xcpt reagent strip Antonio Daly Zay DO Work Phone: Start: 03-31-2025 End: [...] on above: Performed By: #### L [id number] ####[place]: GISSEL BABIN ([id number])[facility] ([facility])[address] Start: 03-31-2025 ABO and Rh group [...] et reagent auto microscopy Dr. Javy Lynn . DO Work Phone: Start: 11-07-2024 Measurement of renal function Dr. Javy Lynn . DO Work Phone: Comment on above: GFR [...] 12-07-2023 Urinalysis complete panel - Urine Kayleigh M Esterle DO Work Phone: Start: 12-07-2023 Urnls [...] Glucose quantitative blood xcpt reagent strip Kayleigh Luisle DO Work Phone: Start: 09-17-2023 Sars-cov-2 detection by dna/rna Kayleigh John Esteraminata DO Work Phone: Start: 09-17-2023 Glucose quantitative blood xcpt reagent strip Kayleigh John Esterle DO Work Phone: Start: 09-17-2023 Dup-scan xtr veins unilateral/limited study Kayleigh John Esteraminata DO Work Phone: Start: 09-17-2023 Glucose quantitative blood xcpt reagent strip Kayleigh John Esteraminata DO Work Phone: Start: 09-17-2023 Glucose quantitative blood xcpt reagent strip Kayleigh Stout DO Work Phone: Start: 09-17-2023 End: 09-17-2023 Glucose quantitative blood xcpt reagent strip Kayleigh Stout DO Work Phone: Start: 09-17-2023 End: 09-17-2023 Basic metabolic panel calcium total Kayleigh John Esteraminata DO Work Phone: Start: 09-16-2023 POCT GLUCOSE METER UNSOLICITED RESULTS Kayleigh Stout DO Work Phone: Start: 09-16-2023 Glucose quantitative blood xcpt reagent strip Kayleigh Stout DO Work Phone: Start: 09-15-2023 Glucose quantitative blood xcpt reagent strip Kayleigh John Esteraminata DO Work Phone: Start: 09-15-2023 Glucose quantitative blood xcpt reagent strip Kayleigh Alvaro Esterle DO Work Phone: Start: 09-14-2023 Glucose quantitative blood xcpt reagent strip Kayleigh Alvaro Esterle DO Work Phone: Start: 09-14-2023 Glucose quantitative blood xcpt reagent strip Kayleigh M Esterle DO Work Phone: Start: 09-14-2023 Glucose [...] John Esterle DO Work Phone: Start: 09-13-2023 C-reactive protein Sandy León MD Work Phone: Start: 09-13-2023 Comprehensive metabo lic panel Kayleigh John Esterle DO Work Phone: Start: 09-12-2023 Glucose quantitative blood xcpt reagent strip Kayleigh John Esterle DO Work Phone: Start: 09-12-2023 C-reactive protein Sandy León MD Work Phone: Start: 09-12-2023 Comprehensive metabo lic panel Kayleigh M Esterle DO Work Phone: Start: 09-11-2023 Glucose quantitative blood xcpt reagent strip Kayleigh M Esterle DO Work Phone: Start: 09-11-2023 C-reactive protein Sandy León MD Work Phone: Start: 11-21-2023 Lactate dehydrogenase ldh Kalpana León MD Work [...] Kayleigh John Esteraminata DO Work Phone: Start: 01-19-2023 End: 01-19-2023 Basic metabolic panel calcium total Kayleigh John Esterle DO Work Phone: Start: 01-18-2023 Glucose quantitative blood xcpt reagent strip Kayleigh M Esterle DO Work Phone: Start: 01-18-2023 Glucose quantitative blood xcpt reagent strip Kayleigh John Esteraminata DO Work Phone: Start: 01-18-2023 Procalcitonin (pct) Ellie John Esteraminata DO Work Phone: Start: 01-18-2023 Glucose quantitative blood xcpt reagent strip Karel Ghosh DO Work Phone: Start: 01-18-2023 Glucose quantitative blood xcpt reagent strip Karel Ghosh DO Work Phone: Start: 01-18-2023 Basic metabolic pane l calcium total Kayleigh John Esteraminata DO Work Phone: Start: 01-18-2023 Glucose quantitative [...] Detail Author Start: 06-22-2025 Influenza vaccination S [facility] Start: 05-06-2025 End: 05-06-2025 Patient encounter procedure 05/06/2025 3:00 PM EDT Office Visit [facility] [place] [address] [place] [address] [place] [phone] Joselito Liu, PA-C [address] [place] [id number] [facility] [place] Start: 04-28-2025 End: 05-22-2025 XR Femur - right 2 Views XR femur right 2+ views Imaging Routine Closed nondisplaced intertrochanteric fracture of right femur, initial encounter ([facility]) Expected: 04/28/2025, Expires: 05/22/2025 [facility] [employer] Work Phone: Comment on above: Expected: 04/28/2025 , Expires: 05/22/2025 Start: 10-22-2024 Medicare Advantage Annual Wellness Visit Medicare Advantage Annual Wellness Visit [facility] Start: 06-22-2024 COVID-19 Vaccine ( season) COVID-19 Vaccine ( season) [facility] Start: 09-23-[address] [facility] Start: 06-22-2023 COVID-19 Vaccine ( season) COVID-19 Vaccine ( season) [facility] Start: 06-22-2023 Influenza vaccination S [facility] Start: 04-20-2023 Hemoglobin A1c measurement Diabetes: Hemoglobin A1C [facility] Start: 06-22-2022 Influenza vaccination Influenza Vacc ine (#1) [facility] Start: 06-01-2022 Hemoglobin A1c measurement Diabetes: Hemoglobin A1C [facility] Start: 05-06-2022 COVID-19 Vaccine (2 - Booster for Jadyn series) COVID-19 Vaccine (2 - Booster for Jadyn series) [facility] Start: 2010 RSV Immunization for Adults (1 - 1-dose 75+ series) RSV Immunization for Adults (1 - 1-dose 75+ series) [facility] Start: 1995 RSV Immunization age d 60 or older (1 - 1-dose 60+ series) RSV Immunization aged 60 or older (1 - 1-dose 60+ series) [facility] Start: 1985 Zoster Vaccines (1 o f 2) Zoster Vaccines (1 of 2) [facility] Start: 1954 DTaP/Tdap/Td Vaccine s (1 - Tdap) DTaP/Tdap/Td Vaccines (1 - Tdap) [facility] Start: 1954 Pneumococcal Vaccine : 50+ Years (1 of 2 - PCV) Pneumococcal Vaccine: 50+ Years (1 of 2 - PCV) [facility] Start: 1954 Urine screening for protein Diabetes: Urine Protein Screening [facility] Start: 1947 Depression Monitoring Depression Mon itoring [facility] Start: 1947 Depression Screening Depression Scre ening [facility] Start: 1945 Diabetic foot examination Diabetes: Foot Exam [facility] Start: 1945 Glaucoma screening Diabetes: R etinopathy Screening [facility] Start: 1945 Preventive dental service Diabetes: Dental Exam [facility] Start: 1941 Pneumococcal Vaccine : 65+ Years (1 - PCV) Pneumococcal Vaccine: 65+ Years (1 - PCV) [facility] Start: 1941 Pneumococcal Vaccine : 65+ Years (1 of 2 - PCV) Pneumococcal Vaccine: 65+ Years (1 of 2 - PCV) [facility] Start: 1935 Hepatitis B Vaccines (1 of 3 - 3-dose series) Hepatitis B Vaccines (1 of 3 - 3-dose series) [facility] Start: 1935 Lipid panel Lipid Panel [facility] Start: 1935 Medicare Advantage Annual Wellness Visit (AWV) Medicare Advantage Annual Wellness Visit (AWV) [facility] Start: 1935 Screening for osteoporosis Bone Density Scan [facility] End: 12-07-2023 Bacteria identified in Lower respiratory specimen by Aerobe culture Respiratory culture and Stain Microbiology Routine Once (Lab) for 1 Occurrences starting 12/07/2023 until 12/07/2023 [facility] Comment on above: Once (Lab) for 1 Occ urrences starting 12/07/2023 until 12/07/2023 Patient Education ED Head Injury (Adult) [facility] Work Phone: Patient referral [facility] Work Phone: End: 12-07-2023 Respiratory pathogens DNA and RNA panel - Lower respiratory specimen by LISANDRO with non-probe detection Pneumonia PCR Panel Microbiology Routine Once (Lab) for 1 Occurrences starting 12/07/2023 until 12/07/2023 [facility] Work Phone: Comment on above: Once (Lab) for 1 Occ urrences starting 12/07/2023 until 12/07/2023 End: 04-02-2025 RF videography Hypopharynx and Esophagus Views for swallowing function W speech and W barium contrast PO [employer] [facility] Work Phone: Comment on above: Once for 1 Occurrenc es starting 04/02/2025 until 04/02/2025 Immunizations Immunization Date Immunization Notes Care Provider Elinor hayward 09-11-2023 Influenza Vac A&B SA Adj quadrivalent (Fluad) vaccine 0.5 mL Bernard Phillips MD Work Phone: [employer] NEGATED: Highlighted row has not occurred!01-18-2023 Influenza,seasonal,[place],quad,preserv Free Karel Ghosh DO Work Phone: [employer] Comment on above: 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 2021 Medicare HMO AETNA MEDICARE [id number] 2021 Private Health Insurance [id number] 1935 Unknown [id number]. 668 Medicare MEDICARE PART A B [id number] Private Health Insurance Unknown [id number]. 462 Unknown [id number] [id number]. 462 Unknown [id number] [id number]. 462 Unknown [id number] 2.16.840.1.478941.3.579.2. 462 Unknown [id number] 2.16.840.1.699643.3.579.2. 462 Unknown [id number] 2.16.840.1.288595.3.579.2. 462 Unknown [id number] [id number]. 462 Unknown [id number] [id number]. 462 Unknown [id number] 2.16.840.1.085707.3.579.2. 462 Unknown [id number] 2.16.840.1.219725.3.579.2. 462 Unknown [id number] 2.16.840.1.562012.3.579.2. 462 Unknown [id number] 2.16.840.1.148946.3.579.2. 462 Unknown [id number] [id number]. 462 Unknown [id number] 2.16.840.1.572518.3.579.2. 462 Unknown [id number] [id number]. 462 Unknown [id number]. 462 Social History Date Type Detail Facility Start: 09-23-2023 Tobacco smoking status NHIS Never smoked tobacco [facility] Start: 01-05-2023 End: 04-02-2025 Alcohol intake Ex-drinker (finding) [facility] Start: 1935 Sex Assigned At Not on file [facility] Start: 12-26-2022 End: 01-17-2023 Exposure to SARS-CoV-2 (event) Not sure [facility] Start: 01-18-2023 History SDOH IPV Fear 2 [facility] Start: 09-11-2023 End: 12-07-2023 History of Social function [facility] Start: 09-11-2023 End: 12-07-2023 Humiliation, Afraid, Rape, and Kick questionnaire [HARK] [facility] Within the last year , have you been afraid of your partner or ex-partner? Patient refused [facility] How often to you hav e a drink containing alcohol? Never [facility] In the past 12 month s, was there a time when you were not able to pay the mortgage or rent on time? No [facility] Start: 01-18-2023 Sexual orientation Heterosexual (finding) [facility] Start: 09-23-2023 End: 09-23-2023 Tobacco smoking status KSIS Unknown if ever smoked [facility] Start: 1935 Sex Assigned At Male [facility] Start: 03-31-2025 Tobacco smoking status NHIS Ex-smoker [facility] History of tobacco use Current smoker [facility] History of tobacco use Cigarette Smoker [facility] Start: 03-31-2025 Tobacco use and exposure Smokeless tobacco non-user [facility] Start: 05-22-2022 Sex Male (finding) [facility] Medical Equipment Procedure Code Equipment Code Equipment Origin al Text Equipment Identifier Dates USE TO INJECT LA NTUS NIGHTLY [id number] Start: 03-06-2022 End: 03-06-2023 Nail Intertan 10 x440 125deg R - [id number], [id number] FDA Start: 03-31-2025 Set Bn 85mm 11mm 7mm Intertan - [id number], [id number] [facility] Start: 03-31-2025 Screw Bn 5mm 42. 5mm [facility] - [id number], [id number] [facility] Start: 03-31-2025 Goals Date Patient Goal Desired Activity /State Personal health goal Functional Status Date Assessment Result Facility 01-25-2023 Are you deaf, or do you have serious difficulty hearing Yes 01/25/2023 11:47 AM Edis Rodriguez RN Yes [facility] 01-25-2023 Are you blind, or do you have serious difficulty seeing, even when wearing glasses Yes 01/25/2023 11:47 AM Edis Rodriguez RN Yes [facility] 01-25-2023 Do you have serious difficulty walking or climbing stairs Yes 01/25/2023 11:47 AM Edis Rodriguez RN Yes [facility] 01-25-2023 Do you have difficul ty dressing or bathing Yes 01/25/2023 11:47 AM Edis Rodriguez RN Yes [facility] 01-25-2023 Because of a physica l, mental, or emotional condition, do you have difficulty doing errands alone such as visiting a physician's office or shopping Yes 01/25/2023 11:47 AM Edis Rodriguez RN Yes [facility] Mental Status Date Assessment Result Facility 01-25-2023 Because of a physica l, mental, or emotional condition, do you have serious difficulty concentrating, remembering, or making decisions Yes 01/25/2023 11:47 AM Edis Rodriguez RN Yes [facility] Clinical Notes 03-06-2022 to 04-21-2025 Telephone Encounter - Eboni Jimenez LPN - 04/21/2025 2:57 PM EDTTelephone Encounter - Eboni Jimenez LPN - 04/21/2025 2:57 PM EDTAddendum Note - Eboni Jimenez LPN - 04/21/2025 2:56 PM EDTAttachments Note Date & Type Note Facility 04-21-2025 Telephone encounter Note Faxed orders to number provided. [facility] 04-21-2025 Miscellaneous Notes Faxed orders to [...] and wound care/post op as needed to [phone]. Thank you! DOS: 03/31/25 R ORIF documented in this encounter [facility] 04-21-2025 Note Addended by: EBONI JIMENEZ on: 04/21/2025 02:56 PM Modules accepted: Orders [facility] 04-21-2025 Note Addended by: EBONI JIMENEZ on: 04/21/2025 02:56 PM Modules accepted: Orders [facility] 04-21-2025 Note Addended by: EBONI JIMENEZ on: 04/21/2025 02:56 PM Modules accepted: Orders [facility] 04-21-2025 Telephone encounter Note Let me know what to send over. [facility] 04-21-2025 Telephone encounter Note Kerline calling due to family request to cancel in office appointment, due to it being difficult on the patient who is has advanced alzheimer's. IPO was cancelled per their request. Please fax orders for imaging and wound care/post op as needed to [phone]. Thank you! DOS: 03/31/25 R ORIF [facility] 04-15-2025 History of Presen t illness Narrative Images from the original note were not included. DOS: 03/31/25 Surgery: intertan nailing of right hip Surgeon: Victoriano 4 Week Follow-up Scheduled: Yes Called patient to check in at 2 week post-op jj. Patient did not answer, left a voice message stating to call our office or reach out via [employer] with further questions or concerns. We will plan on seeing them in office at the 4 week post-op visit. Joselito Liu PA-C Orthopedic Surgery Hip and Knee Reconstruction [facility] documented in this encounter [facility] 04-03-2025 Telephone encounter Note I called and spoke with the facility and got the patient scheduled for the appointment. The facility requested the [place] location. [facility] 04-03-2025 Miscellaneous Notes I called and spoke with the facility and got the patient scheduled for the appointment. The facility requested the [place] location. Name of Caller: Isa Contact Reason for Appointment: Facility calling to schedule IPO for Pt. Please call to schedule thank you. documented in this encounter [facility] 04-02-2025 Telephone encounter Note Name of Caller: Isa Contact Reason for Appointment: Facility calling to schedule IPO for Pt. Please call to schedule thank you. [facility] 04-02-2025 Nurse Note Reported called over the [facility] to [facility]. [facility] 04-02-2025 Nurse Note Reported called over the [facility] to [place]. documented in this encounter [facility] 04-02-2025 Note Formatting of this n ote might be different from the original. Transport confirmed for 12 PM CM notified Kayleigh Scott via phone of transport time. [facility] 04-02-2025 Note Formatting of this n ote might be different from the original. Transport confirmed for 12 PM CM notified Kayleigh Scott via phone of transport time. [facility] 04-02-2025 Miscellaneous Notes Transport confirmed for 12 PM CM notified Kayleigh Scott via phone of transport time. Confirmed pickup time of NOON by transport [employer] Jonathan Santiago at phone number [phone]. Location of facility drop off is return back to [facility]. Facility notified via [facility], [facility] notified on secure chat. Transport requested NOON in Roundtrip. Awaiting time confirmation. Discharge med list transmitted to TO RETURN BACK TO [facility] via [facility] per [facility] request. [facility] response received from facility that pt may [...] at bedside. Confirmed pt has been at [facility] for 2 yrs and was at [...] Documented Referral placed to RETURN BACK TO [facility] via [facility] per [facility] request. Await review and response regarding ability to accept. [facility] notified. Problem: Potential for Falls Goal: I will remain free of falls Outcome: Progressing Problem: Safety Goal: I will remain free of falls Outcome: Progressing Problem: Daily Care Goal: Daily care needs are met Outcome: Progressing Care Management Progress Note Pts chart reviewed by BIANCA Pt admitted from [facility] LTC resident s/p fall w acute femur fx. Orthopedic consult completed with radiology readings interpreted To OR for ORIF by Dr. Deleon 03/31/25. WBAT though 2/2 severe dementia unable to follow commands. Call by cm placed to Kayleigh Scott/daughter to discuss PLOF and dc plans. CM tasked [employer]ER[employer] to place referral to [facility] for anticipated return. Call back number left for Daughter Kayleigh to return call. CM will contact again in the AM. DCP: Return to [facility] when stable. Length of Stay (Days): [...] Procedure(s): Intertan nailing of right hip (CPT 33827) Surgeon: Trae Deleon M.D. Inserting Press Operator(s): Verna PGY-I Anesthesia: Nerve Block and General [...] as well as medical complications such as [place], stroke, PE, DVT, and even . Patient [...] was impacted using the depth tower to extrusion die template maker the depth of placement. The proximal femur was prepared for the lag and worm screws with excellent compression achieved. Based on the patient's fracture pattern, the preloaded setscrew did not require locking. The distal screw was placed using perfect [place] technique. Final films were obtained and saved. [...] at this time documented in this encounter [facility] 04-02-2025 Note Formatting of this n ote might be different from the original. Confirmed pickup time of NOON by transport [employer] at phone number [phone]. Location of facility drop off is return back to [facility]. Facility notified via [facility], [facility] notified on secure chat. [facility] 04-02-2025 Note Formatting of this n ote might be different from the original. Confirmed pickup time of NOON by transport company Jonathan Santiago at phone number [phone]. Location of facility drop off is return back to [facility]. Facility notified via [facility], [facility] notified on secure chat. [facility] 04-02-2025 Note Formatting of this n ote might be different from the original. Transport requested NOON in Roundtrip. Awaiting time confirmation. [facility] 04-02-2025 Note Formatting of this n ote might be different from the original. Transport requested NOON in Roundtrip. Awaiting time confirmation. [facility] 04-02-2025 Note Formatting of this n ote might be different from the original. Discharge med list transmitted to TO RETURN BACK TO [facility] via [facility] per [facility] request. [facility] 04-02-2025 Note Formatting of this n ote might be different from the original. Discharge med list transmitted to TO RETURN BACK TO [facility] via [facility] per [facility] request. [facility] 04-02-2025 Note Formatting of this n ote might be different from the original. [facility] response received from facility that pt may dc today and return ICF . Spoke w MD and DC orders placed and RON completed. CM tasked for transport and for dc PW MAR to be sent to facility. Dtr to be updated via phone of Transport time. T [facility] 04-02-2025 Note Formatting of this n ote might be different from the original. [facility] response received from facility that pt may dc today and return ICF . Spoke w MD and DC orders placed and RON completed. CM tasked for transport and for dc PW MAR to be sent to facility. Dtr to be updated via phone of Transport time. [facility] 04-02-2025 History of Presen t illness Narrative Images from the original note were not included. Speech-Language Pathology SPEECH LANGUAGE PATHOLOGY [facility] Modified Barium Swallow Study Patient Name: Tita Keith Evaluation Date: 04/02/2025 Date of : 1935 Admission Date: 03/30/2025 5:49 PM Age: 89 y.o. Room[facility]Bed: [facility] A IMPRESSION: The patient presents [...] solids and Thin liquids (continue trials with [employer] to determine benefit of mildly thick liquids) [...] effort. Pt would benefit from skilled acute [employer] services oropharyngeal strengthening trial and Formal instruction [...] Vellecular residuals with all-moderate thin, severe pudding, himytwzk-glbqiy-[id number] (difficulty to determine d/t unable to completely [...] intertrochanteric fracture of right femur, initial encounter ([facility]) 03/30/2025 Severe malnutrition ([facility]) ([facility]) 12/07/2023 Pneumonia due to infectious organism, unspecified laterality, unspecified part of lung 12/06/2023 Dementia without behavioral disturbance ([facility]) 09/17/2023 COVID-19 09/10/2023 Hyperglycemia 01/19/2023 Hyperosmolar hyperglycemic state (HHS) ([facility]) 01/17/2023 New onset type 2 diabetes mellitus ([facility]) ([facility]) 03/01/2022 Pain: Pt denies any current pain. [...] as well as medical complications such as AZ, stroke, PE, DVT, and even . Patient [...] Start: 04/01/25 Expected End: 04/15/25 Therapy Time [employer] Individual Minutes Time In: 0820 Time Out: [...] were not included. OCCUPATIONAL THERAPY [facility] Name/MRN: Tita Keith ([id number]) Date: 04/02/2025 Chart reviewed. 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 Judy Anderson 04/02/2025 Images from the original note were not included. PHYSICAL THERAPY [facility] Initial Evaluation Name/MRN: Tita Keith ([id number]) Evaluation Date: 04/01/2025 Date of : 1935 Admission Date: 03/30/2025 5:49 PM Age: 89 y.o. Room/Bed: B1-155/B1-155 A Discharge Recommendation: Intermediate Facility Equipment Needed: No Assessment IMPRESSION: Patient [...] intertrochanteric fracture of right femur, initial encounter ([facility]) 03/30/2025 Severe malnutrition ([facility]) ([facility]) 12/07/2023 Pneumonia due to infectious organism, unspecified laterality, unspecified part of lung 12/06/2023 Dementia without behavioral disturbance ([facility]) 09/17/2023 COVID-19 09/10/2023 Hyperglycemia 01/19/2023 Hyperosmolar hyperglycemic state (HHS) ([facility]) 01/17/2023 New onset type 2 diabetes mellitus ([facility]) ([facility]) 03/01/2022 Medical Precautions: No active isolations Proper [...] Oriented to Person, Reports he is in [place] but unaware he is in the hospital. [...] Raw Score (No Stairs) : 5 [id number]-[id number] -HLM Score: Static standing (1 or more minutes) [...] of Care supervision is transferred to a [facility] Physical Therapist. Goals and/or [...] Speech-Language Pathology SPEECH LANGUAGE PATHOLOGY [facility] Bedside Swallow Evaluation Patient Name: Tita Keith Evaluation Date: 04/01/2025 Date of : 1935 Admission Date: 03/30/2025 5:49 PM Age: 89 y.o. Room[facility]Bed: [facility] A IMPRESSION: S/s oropharyngeal dysphagia. + overt [...] required. Pt would benefit from skilled acute [employer] services to determine the safest route and [...] Retrospective chart review revealed a history of [employer] services as follows: 01/18/23-09/19/23. Pt demonstrated prolonged [...] vallecular residuals with moderate thin, severe pudding, dvibbbli-sxrqfd-zxhrlh. Transient spillage accumulating in laryngeal vestibule with vocal fold penetration. Osteophytes were noted throughout cervical spine. Baseline Diet: mildly thick liquids with regular solids Current Diet: Dietary Orders (From admission, onward) Start Ordered 03/31/251756 Adult diet Regular Diet effective now Question: Diet type Answer: Regular 03/31/25 1757 Tube Feeding: no Tracheostomy: no Recent Chest [...] intertrochanteric fracture of right femur, initial encounter ([facility]) 03/30/2025 Severe malnutrition (CMS/FORMERLY [facility]) ([facility]) 12/07/2023 Pneumonia due to infectious organism, unspecified laterality, unspecified part of lung 12/06/2023 Dementia without behavioral disturbance ([facility]) 09/17/2023 COVID-19 09/10/2023 Hyperglycemia 01/19/2023 Hyperosmolar hyperglycemic state (HHS) ([facility]) 01/17/2023 New onset type 2 diabetes mellitus ([facility]) ([facility]) 03/01/2022 History of Present Illness: Patient Complaint: None stated. Pain: Pt denies any current pain. PPE Worn: gloves Objective Bedside swallow eval completed. Oral Motor Mechanism Facial Movement (CN VII) - Generalized weakness Labial Structure/Function (CN VII) - Reduced retraction, Reduced protrusion, Generalized weakness Lingual Structure/Function (CN XII) - Generalized weakness, reduced elevation and depression, reduced lateralization (zlol-ok-pbqa tongue movement) Velopharyngeal Structure/Function (CN X & [...] Start: 04/01/25 Expected End: 04/15/25 Therapy Time [employer] Individual Minutes Time In: 1030 Time Out: 1049 Minutes: 19 Lexi Reynolds [employer] Graduate Clinician [1] Past Medical History: Diagnosis [...] diabetes, hypertension, hyperlipidemia. Patient was sent from senior care (where he lives[facility] to ED status post [...] Intake/Output Summary (Last 24 hours) at 04/01/2025 09 Last data filed at 04/01/2025 0620 Gross [...] Antonio Cardona DO Division of Hospitalist Medicine [employer] care [facility] [1] Past Medical History: Diagnosis [...] were not included. 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 Subjective: Patient [...] Rads: Radiological Procedure reviewed. Signed by: Rahel Redamn PA-C [1] cholecalciferol, 2,000 Units, Oral, Daily [...] diabetes, hypertension, hyperlipidemia. 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 male with PMHx of severe dementia (Aox0-1), type 2 diabetes, hypertension, hyperlipidemia. Patient was sent from senior care (where he lives) to ED status post fall. XR showed right proximal femur intertrochanteric fracture. Patient is disoriented and unable to provide any history. Orthopedic surgery completed successful ORIF with right hip cephalomedullary nail on 03/31 without complications. Patient was slated for SNF per PT and OT; [facility] [place] [facility]. Acute, acute on chronic, [...] on a dysphagia diet at the facility [employer] recommended MBS This is currently pending, will [...] or doctor a (more content not included)... [facility] 04-02-2025 Hospital course Narrative Hospitalist Discharge Summary Tita Keith : 1935 Admit date: 03/30/2025 Discharge date: 04/02/2025 Admitting Physician: Shay Velazco MD Primary Care Physician: Marj Plasencia Visit Status: inpatient Code Status: DNR-CCA BRIEF HOSPITAL COURSE: 89 y.o. male with PMHx of severe dementia (Aox0-1), type 2 diabetes, hypertension, hyperlipidemia. Patient was sent from senior care (where he lives) to ED status post fall. XR showed right proximal femur intertrochanteric fracture. Patient is disoriented and unable to provide any history. Orthopedic surgery completed successful ORIF with right hip cephalomedullary nail on 03/31 without complications. Patient was slated for SNF per PT and OT; patient is to return to [facility] [place] where he lives. Acute, acute on chronic, [...] on a dysphagia diet at the facility [employer] recommended MBS This is currently pending, will [...] tablet Recommended Follow-up: Trae Deleon MD [address] [place] [id number] Follow up Complexity of Follow up: [] Moderate Complexity: follow up within 7-14 calendar days (04245) [x] Severe Complexity: follow up within 7 calendar days (14103) Follow up Testing, Pending results or Referrals [...] Antonio Cardona DO Division of Hospitalist Medicine [facility] 04/02/2025, 9:32 AM [1] Past Medical History: Diagnosis Date Awareness under anesthesia lateral Benign prostatic hyperplasia Cataract Dementia (HCC) Diabetes mellitus (HCC) Dysphagia Hyperlipidemia Hypertension Major depressive disorder documented in this encounter [facility] 04-02-2025 Note Formatting of this n ote might be different from the original. Care Management Progress Note Pt's chart reviewed. Received call back from pt's daughter who is in pt's room. CM met with family member at bedside. Confirmed pt has been at [facility] for 2 yrs and was at [...] Stay (Days): 3 GMLOS: No GMLOS Documented [facility] 04-02-2025 Note Formatting of this n ote might be different from the original. Care Management Progress Note Pt's chart reviewed. Received call back from pt's daughter who is in pt's room. CM met with family member at bedside. Confirmed pt has been at [facility] for 2 yrs and was at [...] Stay (Days): 3 GMLOS: No GMLOS Documented [facility] 04-02-2025 Note Care Management Prog ress Note Pt's chart reviewed. Received call back from pt's daughter who is in pt's room. CM met with family member at bedside. Confirmed pt has been at [facility] for 2 yrs and was at [...] Stay (Days): 3 GMLOS: No GMLOS Documented [facility] 04-02-2025 Note Formatting of this n ote might be different from the original. Referral placed to RETURN BACK TO [facility] via [facility] per TCC request. Await review and response regarding ability to accept. TCC notified. [facility] 04-02-2025 Note Formatting of this n ote might be different from the original. Referral placed to [facility] via [facility] per TCC request. Await review and response regarding ability to accept. TCC notified. [facility] 04-02-2025 Note Referral placed to R ETURN BACK TO [facility] via [facility] per TCC request. Await review and response regarding ability to accept. TCC notified. 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 Judy Anderson 04/02/2025 [facility] 04-02-2025 Note Problem: Potential f or Falls Goal: I will remain free of falls Outcome: Progressing Problem: Safety Goal: I will remain free of falls Outcome: Progressing Problem: Daily Care Goal: Daily care needs are met Outcome: Progressing [facility] 04-02-2025 Plan of care note Problem: Potential for Falls Goal: I will remain free of falls Outcome: Progressing Problem: Safety Goal: I will remain free of falls Outcome: Progressing Problem: Daily Care Goal: Daily care needs are met Outcome: Progressing [facility] 04-01-2025 Note Formatting of this n ote might be different from the original. Care Management Progress Note Pts chart reviewed by CM Pt admitted from [facility] resident s/p fall w acute femur fx. Orthopedic consult completed with radiology readings interpreted To OR for ORIF by Dr. Deleon 03/31/25. WBAT though 2/2 severe dementia unable to follow commands. Call by cm placed to Kayleigh Scott/daughter to discuss PLOF and dc plans. CM tasked LINER INSERTER to place referral to [facility] for anticipated return. Call back number left for Daughter Kayleigh to return call. CM will contact again in the AM. DCP: Return to [facility] when stable. Length of Stay (Days): 2 GMLOS: No GMLOS Documented [facility] 04-01-2025 Note Formatting of this n ote might be different from the original. Care Management Progress Note Pts chart reviewed by BIANCA Pt admitted from [facility] resident s/p fall w acute femur fx. Orthopedic consult completed with radiology readings interpreted To OR for ORIF by Dr. Deleon 03/31/25. WBAT though 2/2 severe dementia unable to follow commands. Call by cm placed to Kayleigh Scott/daughter to discuss PLOF and dc plans. CM tasked LINER INSERTER to place referral to [facility] for anticipated return. Call back number left for Daughter Kayleigh to return call. CM will contact again in the AM. DCP: Return to [facility] when stable. Length of Stay (Days): 2 GMLOS: No GMLOS Documented [facility] 04-01-2025 Note Care Management Prog ress Note Pts chart reviewed by CM Pt admitted from [facility] resident s/p fall w acute femur fx. Orthopedic consult completed with radiology readings interpreted To OR for ORIF by Dr. Deleon 03/31/25. WBAT though 2/2 severe dementia unable to follow commands. Call by cm placed to Kayleigh Scott/daughter to discuss PLOF and dc plans. CM tasked LINER INSERTER to place referral to [facility] for anticipated return. Call back number left for Daughter Kayleigh to return call. CM will contact again in the AM. DCP: Return to [facility] when stable. Length of Stay (Days): 2 GMLOS: No GMLOS Documented [facility] 04-01-2025 Note PHYSICAL THERAPY [facility] Initial Evaluation Name/MRN: Tita Keith ([id number]) Evaluation Date: 04/01/2025 Date of : 1935 Admission Date: 03/30/2025 5:49 PM Age: 89 y.o. Room/Bed: B1-155/B1-155 A Discharge Recommendation: Intermediate Facility Equipment Needed: No Assessment IMPRESSION: Patient [...] intertrochanteric fracture of right femur, initial encounter ([facility]) 03/30/2025 Severe malnutrition ([facility]) ([facility]) 12/07/2023 Pneumonia due to infectious organism, unspecified laterality, unspecified part of lung 12/06/2023 Dementia without behavioral disturbance ([facility]) 09/17/2023 COVID-19 09/10/2023 Hyperglycemia 01/19/2023 Hyperosmolar hyperglycemic state (HHS) ([facility]) 01/17/2023 New onset type 2 diabetes mellitus ([facility]) ([facility]) 03/01/2022 Medical Precautions: No active isolations Proper [...] Oriented to Person, Reports he is in [place] but unaware he is in the hospital. [...] initial 25% the (more content not included)... [facility] 04-01-2025 Note Hospitalist Progress Note 04/01/2025 Subjective: Admit Date: 03/30/2025 PCP: Marj Plasencia Room#: B1-155/B1-155 A BRIEF HOSPITAL COURSE: 89 y.o. male with PMHx of severe dementia (Aox0-1), type 2 diabetes, hypertension, hyperlipidemia. Patient was sent from senior care (where he lives) to ED status post [...] Intake/Output Summary (Last 24 hours) at 04/01/2025 09 Last data filed at 04/01/2025 0620 Gross [...] Antonio Cardona DO Division of Hospitalist Medicine [facility] [1] Past Medical History: Diagnosis Date Awareness under anesthesia lateral Benign prostatic hyperplasia Cataract Dementia (HCC) Diabetes mellitus (HCC) Dysphagia Hyperlipidemia Hypertension Major depressive disorder [2] cholec (more content not included)... [facility] 04-01-2025 Note Problem: Potential f or Compromised Skin Integrity Goal: Skin Integrity is Maintained or Improved Outcome: Progressing Problem: Urinary Incontinence Goal: Perineal skin integrity is maintained or improved Outcome: Progressing [facility] 04-01-2025 Plan of care note Problem: Potential for Compromised Skin Integrity Goal: Skin Integrity is Maintained or Improved Outcome: Progressing Problem: Urinary Incontinence Goal: Perineal skin integrity is maintained or improved Outcome: Progressing [facility] 03-31-2025 Note Problem: Potential f or Falls Goal: I will remain free of falls Outcome: Progressing Problem: Pain Goal: My pain/discomfort is manageable Outcome: Progressing [facility] 03-31-2025 Plan of care note Problem: Potential for Falls Goal: I will remain free of falls Outcome: Progressing Problem: Pain Goal: My pain/discomfort is manageable Outcome: Progressing [facility] 03-31-2025 Hospital Discharg e instructions Antonio [...] Unit/Room#: B1-155/B1-155 A Discharging Unit Phone Number: [phone] Emergency Contact: Extended Emergency Contact Information Primary [...] (Chronic) COVID-19 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) Pneumonia due to infectious organism, unspecified laterality, [...] assistance Toileting Total assistance Feeding Minimal assistance Programming Equipment Operator Minimal assistance Med Delivery yes Wound Care [...] Status Date: Discharging to Facility/ Agency Name: [facility] Address: [address] [place] [address] Fax: [employer] Range Tender/Machine Bander And Cellophaner Helper signature: ICIAN SECTION Name: Tita Keith Prognosis: poor Condition at Discharge: stable Rehab Potential (if transferring to Rehab): poor Recommended Labs or Other Treatments After Discharge: The individual is being admitted to a nursing facility directly from an [facility] or a unit of a [facility] that is not operated by or licensed by [facility] under section 5119.14 or 5160-3-15.1 5 The individual requires the level of services provided by a nursing facility for the condition for which he or she was treated in the hospital and, Physician Certification: I certify the above information and transfer of Tita Keith is necessary for the continuing treatment of the diagnosis listed and that he requires [facility] facility for less than 30 days. Update Admission H&P: No change in H&P PHYSICIAN SIGNATURE: documented in this encounter [facility] 03-31-2025 Note Patient: Tita coates Procedure Summary Date: 03/31/25 Room / Location: [address] Operating Room Anesthesia Start: 1445 Anesthesia Stop: 1651 Procedure: RIGHT ORIF, FRACTURE, FEMUR, INTERTROCHANTERIC, WITH INTRAMEDULLARY IMPLANT INSERTION (Right: Hip) Diagnosis: Closed nondisplaced intertrochanteric fracture of right femur, initial encounter ([facility]) Surgeons: Trae Deleon MD Responsible Provider: Jayden [...] opportunity for questions and acknowledgement of understanding. [facility] 03-31-2025 Note Patient: Tita coates Procedure Summary Date: 03/31/25 Room / Location: [address] Operating Room Anesthesia Start: 1445 Anesthesia Stop: 165 Procedure: RIGHT ORIF, FRACTURE, FEMUR, INTERTROCHANTERIC, WITH INTRAMEDULLARY IMPLANT INSERTION (Right: Hip) Diagnosis: Closed nondisplaced intertrochanteric fracture of right femur, initial encounter ([facility]) Surgeons: Trae Deleon MD Responsible Provider: Jayden [...] once all PACU criteria has been met. [facility] 03-31-2025 Note Airway Date/Time: 03/31/2025 2:47 PM Reason: emergent General Information and Staff Patient location during procedure: Procedural Resident/TRAY SERVER: Jj Barakat APRN - TRAY SERVER Performed: SRNA Patient Condition Indications for airway management: anesthesia Patient position: sniffing Sedation level: Asleep Final Airway Details Preoxygenated: yes Final airway type: supraglottic airway Successful airway: Igel Size: 4 ETT size (mm): 7.5 Number of attempts at approach: 1 [facility] 03-31-2025 Procedure note Images from the original note were not included. Operative Report Patient Name: Tita Keith Date of : 1935 Date of Surgery: 03/31/25 Pre-operative diagnosis: Right peritrochanteric femur fracture Post-operative diagnosis: Same Procedure(s): Intertan nailing of right hip (CPT 76988) Surgeon: Trae Deleon M.D. Inserting Press Operator(s): Verna PGY-I Anesthesia: Nerve Block and General [...] as well as medical complications such as AZ, stroke, PE, DVT, and even . Patient [...] was impacted using the depth tower to extrusion die template maker the depth of placement. The proximal femur was prepared for the lag and worm screws with excellent compression achieved. Based on the patient's fracture pattern, the preloaded setscrew did not require locking. The distal screw was placed using perfect [place] technique. Final films were obtained and saved. [...] Trae Deleon MD at 03/31/25, 8:18 PM [place] Phone: 03-31-2025 Note Peripheral Block Time Out: 03/31/2025 1:58 PM Patient location during procedure: pre-op Start time: 03/31/2025 1:58 PM End time: 03/31/2025 2:03 PM Reason for block: at surgeon's request and post-op pain management Staffing Performed: TRAY SERVER Resident/TRAY SERVER: Martin Leonard APRN - ANN MARIE Preanesthetic [...] No paresthesias reported by patient during injectionMedications hpzZADMFlkhxe-zhuwmwzprzy-xptzebi rine (TAP) syringe - Injection 30 mL - 03/31/2025 1:58:00 PM [facility] 03-31-2025 Nurse Note Pt bgl 277. Dr ngo notified and insulin order placed at this time [facility] 03-31-2025 Note Patient: Tita coates Procedure Information Date/Time: 03/31/25 1230 Procedure: RIGHT ORIF, FRACTURE, FEMUR, INTERTROCHANTERIC, WITH INTRAMEDULLARY IMPLANT INSERTION (Right: Hip) Location: [address] Operating Room Surgeons: Trae Deleon MD [...] Onset Heart attack Mother Heart failure Father [facility] 03-31-2025 Consult note Associated Order (s): IP CONSULT TO ORTHOPAEDIC SURGERY Please see previously dictated consult note Cosigned by Trae Deleon MD at 03/31/2025 1:38 PM EDT [facility] [employer] Phone: 03-31-2025 Consult note Associated Order (s): IP CONSULT TO ORTHOPAEDIC SURGERY Please see previously dictated consult note Cosigned by Trae Deleon MD at 03/31/2025 1:38 PM EDT Associated Order(s): IP CONSULT TO ORTHOPAEDIC SURGERY Ortho Consult Patient: Tita Keith Date of : 1935 Acct: [id number] PCP: Marj Plasencia Date of Admission: 03/30/2025 [...] -Consent obtained over phone from Kayleigh Mendez [facility] power of energy attorney -Pre-op workup complete -Ice -APS consulted -Bedrest -Admit to medicine -Pain control & medical management per primary -Please hold DVT prophylaxis in anticipation of OR -Please comment on clearance in case of OR, page ortho rock mason apprentice with clearance status Jay Rodriguez MD Orthopaedic [...] as well as medical complications such as AZ, stroke, PE, DVT, and even . Patient/family was given opportunity to ask questions and consider his options. They ultimately elected to proceed with surgery. No guarantees were stated or implied. documented in this encounter [facility] 03-31-2025 Note Hospitalist Progress Note 03/31/2025 Subjective: Admit Date: 03/30/2025 PCP: Marj Plasencia Room#: BRIEF HOSPITAL COURSE: 89 y.o. male with PMHx of severe dementia (Aox0-1), type 2 diabetes, hypertension, hyperlipidemia. Patient was sent from senior care (where he [facility]) to ED status post [...] Contact: Mike Keith Mobile Relation: Child Antonio Homero Cardona DO Division of Hospitalist Medicine [employer] [1] Past Medical History: Diagnosis Date Dementia (HCC) Diabetes mellitus (HCC) Hyperlipidemia Hypertension [2] [3] [4] dextrose 5 % and sodium chloride 0.45 %, 75 mL/hr, Last Rate: 75 mL/hr (03/31/25 0141) [facility] 03-31-2025 Emergency department Note Patient was incontinent of stool. Cleaned up and silverio placed as ordered. Patient repositioned to comfort. Confused to situation and date. [facility] 03-31-2025 Emergency department Note Patient was incontinent of stool. Cleaned up and silverio placed as ordered. Patient repositioned to comfort. Confused to situation and date. EMERGENCY DEPARTMENT ENCOUNTER Pt Name: Tita Keith Birthdate 1935 Date of evaluation: 03/30/2025 ED Provider: Jj Lara MD CHIEF COMPLAINT Chief Complaint Patient presents with Fall Pt had a fall last night at [facility]. [facility] performed an X-Ray that shows a right [...] with other clinicians: Admitting team hospitalist and Dry Can Tender orthopedic resident Admission Criteria: The patient needs [...] Lara MD 03/30/251999 documented in this encounter [facility] 03-30-2025 Consult note Associated Order (s): IP CONSULT TO ORTHOPAEDIC SURGERY Ortho Consult Patient: Tita Keith Date of : 1935 Acct: [id number] PCP: aMrj Plasencia Date of Admission: 03/30/2025 Date of [...] -Consent obtained over phone from Kayleigh Mendez [facility] power of energy attorney -Pre-op workup complete -Ice -APS consulted -Bedrest -Admit to medicine -Pain control & medical management per primary -Please hold DVT prophylaxis in anticipation of OR -Please comment on clearance in case of OR, page ortho rock mason apprentice with clearance status Jay Rodriguez MD Orthopaedic [...] necessary. I discussed patient concerns with Tita's R.N. and instructions were given. Please see our orders for the updated patient care plan. Risks of fracture surgery in general were reviewed including, but not limited to, infection, non-union, need for additional procedures, painful or prominent hardware which could require additional surgery, failure of fixation which would require revision, damage to normal structures, as well as medical complications such as AZ, stroke, PE, DVT, and even . Patient/family was given opportunity to ask questions and consider his options. They ultimately elected to proceed with surgery. No guarantees were stated or implied. [facility] 03-30-2025 History and physical note Attending [...] home Accu-Cheks ACHS with sliding scale coverage barrow worker helper consult - delirium precautions: limit nighttime disturbances - DVT prophylaxis: enoxaparin Complexity: Acute illness with systemic symptoms (MOD). Risk: Admission to hospital-level care was considered or occurred (HIGH). Advance Directive: Prior Anticipated Discharge - Date - 04/01/2025 - Location - [facility] (Non-Skilled) - Pending the following [...] - DO NOT do CPR, intubation] [_] [DNR-CONTINUOUS IMPROVEMENT LEAD - Comfort care only] [_] DNR form [...] Shay Velazco MD Division of Hospitalist Medicine [facility] [1] Past Medical History: Diagnosis Date Dementia [...] Disp: , Rfl: [5] No Known Allergies [employer] Work Phone: 03-30-2025 Note Attending History an d Physical Admit Date: 03/30/2025 PCP: Majr Plasencia CHIEF COMPLAINT: Fall Reason for Admission: [...] ordered by anot (more content not included)... [facility] 03-30-2025 History and physical note Attending [...] home Accu-Cheks ACHS with sliding scale coverage barrow worker helper consult - delirium precautions: limit nighttime disturbances - DVT prophylaxis: enoxaparin Complexity: Acute illness with systemic symptoms (MOD). Risk: Admission to hospital-level care was considered or occurred (HIGH). Advance Directive: Prior Anticipated Discharge - Date - 04/01/2025 - [facility] ([facility]-Skilled) - Pending the following [...] - DO NOT do CPR, intubation] [_] [DNR-CONTINUOUS IMPROVEMENT LEAD - Comfort care only] [_] DNR form [...] Shay Velazco MD Division of Hospitalist Medicine [facility] [1] Past Medical History: Diagnosis Date Dementia [...] No Known Allergies documented in this encounter [facility] 03-30-2025 Physician Emergency department Note EMERGENCY DEPARTMENT ENCOUNTER Pt Name: Tita Keith Birthdate 1935 Date of evaluation: 03/30/2025 ED Provider: Jj Lara MD CHIEF COMPLAINT Chief Complaint Patient presents with Fall Pt had a fall last night at [facility]. [facility] performed an X-Ray that shows a right [...] Report Dictated on Electronically Signed By: Gerhard Hananh MD Electronically Signed Date/Time: 03/30/2025 7:24 PM [...] with other clinicians: Admitting team hospitalist and Dry Can Tender orthopedic resident Admission Criteria: The patient needs [...] intertrochanteric fracture of right femur, initial encounter ([facility]) DISPOSITION Admit 03/30/2025 08:00:24 PM PATIENT REFERRED [...] Last Year: No Jj Lara MD 03/30/251999 [facility] 12-12-2023 History of Presen t illness Narrative Patients daughter was informed that the patient is set up for transfer to [facility] at 1:00pm. Report was called to [facility]. They were notified of corn picker time of 1300. They did request a covid test before discharge. Will contact Dr Braun for an order and obtain prior to leaving. Images from the original note were not included. OCCUPATIONAL THERAPY [facility] Treatment Note Name/MRN: Tita Keith ([id number]) Date of : 1935 Age: 88 y.o. Room/Bed: B2-260/B2-260 A Visit #: 2 out of 7 visits Discharge Recommendation: Intermediate Facility Equipment Needed: No Prior Level of [...] max assist to start pants and then thread pulling machine attendant hips. Fair tolerance. Bed Mobility Supine to sit: Max Assist Sit to supine: Mod Assist Transfers/Mobility Sit to stand: Max Assist Stand to sit: Mod Assist Sitting balance: SBA Standing balance: Min Assist Functional mobility: Mod Assist Once standing at the W, pt was able to stand for a [...] Memory: decreased short term memory and decreased group home memory - Safety judgement: decreased awareness of [...] from the original note were not included. [facility] - Infectious Diseases ELECTRONIC SCIENCE TEACHER Progress Note Subjective: Following for pneumococcal pneumonia [...] phase of care from ID standpoint. Carola Raines, DIANA Student 11:51am 12/12/23 [facility] Infectious Disease Advance Practice Provider Note Patient seen and evaluated with WELCOME WAGON HOSTESS student. I performed/re-performed a history and physical [...] clinically Improved. Plans to discharge back to [facility] today. Based on diagnoses and management, combination of acute and chronic problems, exacerbations and/or acuity, this visit should be considered to be of moderate complexity. Nusrat Conde CNP [facility] - Infectious Diseases 2:10 PM 12/12/2023 Nutrition Assessment Type and Reason for Visit: Reassess Nutrition Recommendations/Plan: Continue with Adult diet Dysphagia - Minced and Moist; 5 carb choices (75 gm/meal); No Drinking Straws Monitor need to consult SETTER AUTOMATIC SPINNING LATHE. Pt currently denies any further deficits, but [...] (interosseous), Scapula (trapezius) Fluid Accumulation: Mild Extremities Fuel Tank Sealer And Tester Strength: Not Performed Nutrition Assessment: Pt is [...] (kg): 56 kg Total Energy Requirements (kcals/day): 9200-6897 kcals (30-35 kcals/kg) Weight Used for Protein [...] at facility) % Weight Change (Calculated): -3.1 [place] Body Weight (lbs) (Calculated): 190 lbs [place] Body Weight (Kg) (Calculated): 86 kg % [place] Body Weight (Calculated): 68.2 % BMI (kg/m2) [...] Oral Nutrition Supplement Dian Tipton RD Contact: *[phone] or via Secure Chat Images from the [...] lester Mobile Relation: Child Secondary Emergency Contact: KeithMike Mobile Relation: Child Ruiz Braun MD Division of Hospitalist Medicine [facility] Images from the original note were not included. [facility] - Infectious Diseases ELECTRONIC SCIENCE TEACHER Progress Note Subjective: Following for pneumococcal pneumonia [...] follow; plan d/w Dr. Favian Conde CNP [facility] - Infectious Diseases 10:58 AM 12/11/2023 Based on diagnoses and management, combination of acute and chronic problems, exacerbations and/or acuity, this visit should be considered to be of moderate complexity. Images from the original note were not included. Hospitalist Progress Note 12/10/2023 [phone]: Please secure chat me for patient care issues. [phone]: Please secure chat [facility] Hospitalist for any issues. Subjective: Admit Date: 12/06/2023 PCP: Marj Plasencia Room#: B2260/B2-582 A Brief History: Patient is 88-year-old gentleman [...] carb choices (75 gm/meal); No Drinking Straws @[id number]@ 24HR INTAKE/OUTPUT: Intake/Output Summary (Last 24 hours) at 12/10/2023 1314 Last data filed at 12/10/2023 0838 Gross per 24 hour Intake 850 ml Output 1000 ml Net -150 ml Past Medical History: Past Medical History: Diagnosis Date Dementia (HCC) Diabetes mellitus (HCC) Hyperlipidemia Hypertension LABS: CBC: Recent Labs 12/08/2332212/09/2340612/10/23 0348 WBC 6.0 4.3 4.3 RBC 3.89* 3.97* 3.93* HGB 11.7* 11.8* 11.8* HCT 35.0* 35.3* 34.7* MCV 90.0 89.0 88.3 RDW 13.9 13.9 13.7 PLT 146 166 185 BMP: Recent Labs 12/08/2332212/09/23 0407 12/10/23 0348 NA 138 141 137 K 3.9 3.3* 3.6 CL 105 108* 104 CO2 28 26 25 BUN 35* 22* 19 CREATININE 1.29* 1.01 0.99 GLUCOSE 143* 42* 124* CALCIUM 9.2 9.1 9.3 ANIONGAP 4 8 8 LIVER PROFILE: Recent Labs 12/08/2332212/09/23 0407 12/10/23 0348 AST 34 27 24 ALT 23 22 [...] - Date -December 12 or - Location -[facility] facility - Pending the following -sitter free [...] RAY MD, MD Division of Hospitalist Medicine [facility] PAGER: Epic chat Images from the original note were not included. PHYSICAL THERAPY [facility] Treatment Note Name/MRN: Tita Keith ([id number]) Date of : 1935 Age: 88 y.o. Room/Bed: B2-260/B2-260 A Visit #: 1 out of 5 visits Discharge Recommendation: Intermediate Facility Equipment Needed: No Prior Level of [...] Treatment Minutes: 15 Minutes (1 Gt) Marry Mendoaz PT Images from the original note were not included. [facility] - Infectious Diseases ELECTRONIC SCIENCE TEACHER Progress Note Subjective: Following for pneumococcal pneumonia [...] acute cardiopulmonary process. Antimicrobials, Start/End Dates: Vancomycin: 2/15 Pip/tazo: 12/06-12/07 Ceftriaxone: 12/08-present Impression: Bilateral pneumococcal pneumonia Acute RSV infection Fevers- resolved Bilateral conjunctival eye drainage; likely viral Dementia DM Plan: Continue Ceftriaxone Plan for 7 days total through 12/13; can be transitioned to Cefdinir 300 mg bid to complete course at discharge ID service will continue to follow; plan d/w Dr. Favian Conde CNP [facility] - Infectious Diseases 2:27 PM 12/10/2023 Based on diagnoses and management, combination of acute and chronic problems, exacerbations and/or acuity, this visit should be considered to be of moderate complexity. Images from the original note were not included. OCCUPATIONAL THERAPY [facility] Treatment Note Name/MRN: Tita Keith ([id number]) Date of : 1935 Age: 88 y.o. Room/Bed: [facility]260/[facility]260 A Visit #: 1 out of 7 visits Discharge Recommendation: Intermediate Facility Equipment Needed: No Prior Level of [...] Memory: decreased short term memory and decreased intermediate designer memory - Safety judgement: decreased awareness of need for assistance - Sequencing: requires cues for some Exceptions Plan Continue acute OT per plan of care. Safety/Education Safety Safety Devices in place: All fall risk precautions in place, call light within reach, left in bed, bed alarm in place, gait belt, patient at risk for falls, nurse notified, video monitor, and cement and concrete plant worker present Restraints: No Education Education Given To: [...] care of this patient's treatment with the TELEVISION PRESENTER student and agree with the above note. Alexus SHEIKH/Peggy Images from the original note were not [...] making capacity - met with daughter/HCPOA Kayleigh Jackelinemaddison,at bedside - Kayleigh's goal for patient is [...] is a 88 y.o. male admitted to [facility] on 12/06/23 for altered mental status. Patient [...] be obtained due to patient's mental status [place] Symptom Assessment Score [place] Score Pain Score 0 Tiredness Score 8 [...] but confused Assessed by: provider. Social history: [place] status: no Marital status: single Living status: senior care Work history: retired Family Meeting: (if discussing [...] were not included. Hospitalist Progress Note 12/09/2023 [phone]: Please secure chat me for patient care issues. : Please secure chat [facility] Hospitalist for any issues. Subjective: Admit Date: 12/06/2023 PCP: Marj Plasencia Room#: B2260/B2-489 A Brief History: Patient is 88-year-old gentleman [...] carb choices (75 gm/meal); No Drinking Straws @[id number]@ 24HR INTAKE/OUTPUT: Intake/Output Summary (Last 24 hours) at 12/09/2023 1011 Last data filed at 12/08/2023 1846 Gross per 24 hour Intake 2050 ml Output -- Net 2050 ml Past Medical History: Past Medical History: Diagnosis Date Dementia (HCC) Diabetes mellitus (HCC) Hyperlipidemia Hypertension LABS: CBC: Recent Labs 12/06/23162012/08/233 12/09/23 0407 WBC 8.4 6.0 4.3 RBC 4.11* 3.89* 3.97* HGB 12.6* 11.7* 11.8* HCT 36.4* 35.0* 35.3* MCV 88.5 90.0 89.0 RDW 14.0 13.9 13.9 PLT 144 146 166 BMP: Recent Labs 12/06/23162012/08/23 0323 12/09/23 0407 NA 136 138 141 K 4.5 3.9 3.3* CL 101 105 108* CO2 25 28 26 BUN 47* 35* 22* CREATININE 1.35* 1.29* 1.01 GLUCOSE 200* 143* 42* CALCIUM 9.4 9.2 9.1 ANIONGAP 10 4 8 LIVER PROFILE: Recent Labs 12/06/23162012/08/23 0323 12/09/23 0407 AST 29 34 27 ALT 28 23 22 BILITOT 0.7 0.6 0.3 ALKPHOS 99 92 90 PROT 7.1 6.5 6.4 PT/INR: No results for input(s): "PROTIME", "INR" in the last 72 hours. CARDIAC ENZYMES: Recent Labs 12/06/23 1621 12/06/23202312/07/23 0104 TROPONINI 0.031 0.080* 0.070* Procalcitonin: Lab [...] Discharge - Date -December 10 - Location -[facility] facility - Pending the following -clinical improvement [...] RAY MD, MD Division of Hospitalist Medicine [facility] PAGER: Epic chat Repositioned with skin care. Pt attempting to get OOB, Remains pleasantly confused, nonredirectable at times. Refusing breakfast but taking sips fluids. Will continue to monitor. Images from the original note were not included. Hospitalist Progress Note 12/08/2023 [phone]: Please secure chat me for patient care issues. [phone]: Please secure chat [facility] Hospitalist for any issues. Subjective: Admit [...] carb choices (75 gm/meal); No Drinking Straws @[id number]@ 24HR INTAKE/OUTPUT: Intake/Output Summary (Last 24 hours) [...] PLT 144 146 BMP: Recent Labs 12/06/23 1621 12/08/23 0323 NA 136 138 K 4.5 3.9 CL 101 105 CO2 25 28 BUN 47* 35* CREATININE 1.35* 1.29* GLUCOSE 200* 143* CALCIUM 9.4 9.2 ANIONGAP 10 4 LIVER PROFILE: Recent Labs 12/06/23 1621 12/08/23 0323 AST 29 34 ALT 28 23 BILITOT 0.7 0.6 ALKPHOS 99 92 PROT 7.1 6.5 PT/INR: No results for input(s): "PROTIME", "INR" in the last 72 hours. CARDIAC ENZYMES: Recent Labs 12/06/23 1621 12/06/23202312/07/23 0104 TROPONINI 0.031 0.080* 0.070* Procalcitonin: Lab [...] - Date -December 09 or - Location -[facility] facility - Pending the following -PT and [...] Scott Mobile Relation: Child Secondary Emergency Contact: KeithMike Mobile Relation: Child RAI RAY MD, MD Division of Hospitalist Medicine [facility] PAGER: Epic chat [facility] Respiratory Care Department Progress Note As part [...] this patient, Pharmacy Vancomycin Consult Follow-Up Note Non-INVESTOR RELATIONS MANAGER Patients Current Dosing: Vanc 750mg every 24 [...] Straws per MNT protocol. Monitor need for SETTER AUTOMATIC SPINNING LATHE consult. Initiate Ensure high protein TID per [...] (gastrocnemius), Hand (interosseous) Fluid Accumulation: Mild Extremities Fuel Tank Sealer And Tester Strength: Not Performed Nutrition Assessment: Pt was [...] (kg): 56 kg Total Energy Requirements (kcals/day): 1176-5797 kcals (30-35 kcals/kg) Weight Used for Protein [...] at facility) % Weight Change (Calculated): -3.1 [place] Body Weight (lbs) (Calculated): 190 lbs [place] Body Weight (Kg) (Calculated): 86 kg % [place] Body Weight (Calculated): 64.7 % BMI (kg/m2) [...] Oral Nutrition Supplement Dian Tipton RD Contact: *[phone] or via Secure Chat Images from the original note were not included. PHYSICAL THERAPY [facility] Initial Evaluation Name/MRN: Tita Keith ([id number]) Evaluation Date: 12/07/2023 Date of : 1935 Admission Date: 12/06/2023 3:50 PM Age: 88 y.o. Room/Bed: Discharge Recommendation: Intermediate Facility Equipment Needed: No Assessment IMPRESSION: Pt [...] 01/20/2023 Hyperglycemia 01/19/2023 Hyperosmolar hyperglycemic state (HHS) ([facility]) 01/17/2023 New onset type 2 diabetes mellitus ([facility]) ([facility]) 03/01/2022 Medical Precautions: Droplet Proper PPE donned/doffed [...] Treatment Minutes: 10 Minutes (1 TA) Marry Mendoza, PT Patient's Physical Therapy Plan of Care supervision is transferred to a [facility] Physical Therapist. Goals and/or treatment plan was established in collaboration with patient/family/other representatives. Images from the original note were not included. OCCUPATIONAL THERAPY [facility] Initial Evaluation Name/MRN: Tita Keith ([id number]) Evaluation Date: 12/07/2023 Date of : 1935 Admission Date: 12/06/2023 3:50 PM Age: 88 y.o. Room/Bed: Discharge Recommendation: Intermediate Facility Equipment Needed: No (TBD at next [...] 01/20/2023 Hyperglycemia 01/19/2023 Hyperosmolar hyperglycemic state (HHS) ([facility]) 01/17/2023 New onset type 2 diabetes mellitus (CMS/HCC) (HCC) 03/01/2022 Medical Precautions: Droplet Proper PPE donned/doffed [...] Individual Co-treatment Time In 0840 Time Out 09 Minutes 25 Timed Code Treatment Minutes: 8 Minutes (ADL) Margarito Hicks OT Patient's Occupational Therapy Plan of Care supervision is transferred to a [facility] Occupational Therapist. Goals and/or treatment plan was established in collaboration with patient/family/other representatives. documented in this encounter [facility] 12-12-2023 Note Formatting of this n ote might be different from the original. Dc to [facility] this afternoon at 1:00. [facility] to transport. [facility] messaged the facility with corn picker time. Ambulance form completed and report number provided to the bedside nurse. Spoke with patients daughter Kayleigh to discuss dc arrangements and the corn picker time. [facility] 12-12-2023 Note Formatting of this n ote might be different from the original. Dc to [facility] this afternoon at 1:00. [facility] to transport. [facility] messaged the facility with corn picker time. Ambulance form completed and report number provided to the bedside nurse. Spoke with patients daughter Kayleigh to discuss dc arrangements and the corn picker time. [facility] 12-12-2023 Miscellaneous Notes Dc to [facility] this afternoon at 1:00. [facility] to transport. [facility] messaged the facility with corn picker time. Ambulance form completed and report number provided to the bedside nurse. Spoke with patients daughter Kayleigh to discuss dc arrangements and the corn picker time. Images from the original note were not included. Care Management Progress Note Pt has discharge order. Pt to return to [facility]. AMBULANCE DISPATCHER notified to set up transport. LINER INSERTER tasked to send discharge paperwork. Discharge Milestones and Delays Expected Date/Time: 12/12/2023 Disposition: Intermediate Facility Transport status: No current request Discharge Milestones Completed Place discharge order Complete med reconciliation Case mgmt discharge readiness Expected Discharge History Expected Date/Time Set By Reviewed At 12/12/2023 Lara Russell RN 12/12/2023 10:47 AM [facility] 12/12/2023 Ruiz Braun MD 12/12/2023 10:10 AM Dysphasia. telesitter. [facility] when stable" 12/12/2023 MITCHELL Graham 12/11/2023 9:11 AM 12/12/2023 Mi Titus RN 12/10/2023 10:56 AM From [facility]. Dysphasia. telesitter." 12/11/2023 MITCHELL Graham 12/10/2023 9:30 AM 12/08/2023 Cody Lerma MD 12/07/2023 6:39 PM 12/08/2023 Cody Lerma MD 12/06/2023 6:39 PM Length of Stay (Days): 6 GMLOS: 5.1 Discharge med list transmitted to return back to [facility] via [facility] per [facility] request. Problem: [...] for 24 hours before discharge back to [facility]. 1220: Spoke with Mckenzie at [facility]. Confirms patient will need to be [...] MITCHELL Graham 12/11/2023 9:11 AM Dysphasia. telesitter. [facility] when stable" 12/12/2023 Mi Titus RN 12/10/2023 10:56 AM From [facility]. Dysphasia. telesitter." 12/11/2023 MITCHELL Graham 12/10/2023 [...] Droplet Isolation. Received call from Mckenzie at [facility]; [phone]. She states patient is a intermediate designer care bedhold and can return when ready. She states patient does not need authorization started before discharge. She did state patient will need to be tele sitter free for 24 hours; bedside Rn and Dr. Ray updated via secure [employer] chat. DC plan: Return to [facility], needs to be tele sitter free 24 hours before discharge. Discharge Milestones and Delays Expected Date/Time: 12/12/[address] discharge order Complete med reconciliation Case mgmt discharge readiness Clinical Stability Diagnsotic Workup Expected Discharge History Expected Date/Time Set By Reviewed At 12/12/2023 Mi Titus RN 12/10/2023 10:56 AM From [facility]. Dysphasia. 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 Name/Contact Information: Kayleigh Scott dtr & HCPOA Cognition/Language: Confused at baseline Permission given to speak with patient statement services representative/caregiver as indicated: Confirmation of Payer with patient/family: Yes Payer Name: [employer]: Yes Confirmation of Primary Care Physician: Confirmed PCP Name: Marj Plasecnia Seen in last 2 years?: Yes Primary Caregiver: Other (Comment) ([facility] staff) If assistance needed, confirmed caregiver ready, willing and able to care for patient at discharge: Yes Confirmed with: F staff Living Arrangements Current Residence: Number of Floors Number of Entry Steps: Bed/Bath Levels: Facility: [facility] Facility Name: [facility] Plan to Return: Yes Lives with: (other residents of [facility]) Support Systems: Children, Family members, Comments (Other) (F staff) Activities of Daily Living Ambulation: Assistance (FWW) Bathing/Dressing: Assistance Elimination/Continence/Toileting: Assistance Feeding: Independent Who Assists with Activities of Daily Living: ECF staff Instrumental Activities of Daily Living Prescription Coverage: Yes Pharmacy Used: [facility] pharmacy Medication Management: Medication dispenser Who assists with medication securing and setup?: ECF staff Transportation/Shopping: Assistance Provider Transportation Mode: Wheelchair van, Senior/disability transport service Needs Assistance with Transportation at Discharge: Yes ( will setup transport for return to facility) Meal Preparation: Assistance Provider Meal Prep Assistance Provider Name: ECF staff Laundry/Cleaning: Assistance Provider Laundry/Cleaning Assistance Provider Name: [facility] staff Finances/Bill Paying: Assistance Provider Finances/Bill Payer Assistance Provider Name: Kayleigh Contreras Communication: Independent Types of Care Services/Equipment Utilized Care Services: (N/A) Dialysis Type: NA Durable Medical Equipment: Walker, Glucometer Patient's Goal/Discharge Plan Patient expects to be discharged to: Discharge Planning Actions: Continue to follow, Intermediate Facility referral indicated [place] of choice: [place] of choice discussed Patient's Choice Rights and [employer] and Collaborative Relationships Disclosed as Indicated for Post-Acute Care: Yes Interdisciplinary Team Engagement: Social Work Referral for: Additional Information: Spoke with patient's daughter, Kayleigh Scott, at [phone]. Introduced self and role. Patient admitted for [...] PT/OT recommending SNF LOC. Return referral to [facility] ECF submitted via [facility]. TCC will continue to follow. Ru Duckworth RN documented in this encounter [facility] 12-12-2023 Note Formatting of this n ote is different from the original. Images from the original note were not included. Care Management Progress Note Pt has discharge order. Pt to return to [facility]. AMBULANCE DISPATCHER notified to set up transport. LINER INSERTER tasked to send discharge paperwork. Discharge Milestones and Delays Expected Date/Time: 12/12/2023 Disposition: Intermediate Facility Transport status: No current request Discharge Milestones Completed Place discharge order Complete med reconciliation Case mgmt discharge readiness Expected Discharge History Expected Date/Time Set By Reviewed At 12/12/2023 Lara Russell RN 12/12/2023 10:47 AM [facility] 12/12/2023 Ruiz Braun MD 12/12/2023 10:10 AM Dysphasia. telesitter. [facility] Home when stable" 12/12/2023 MITCHELL Graham 12/11/2023 9:11 AM 12/12/2023 Mi Titus RN 12/10/2023 10:56 AM From [facility]. Dysphasia. telesitter." 12/11/2023 MITCHELL Graham 12/10/2023 9:30 AM 12/08/2023 Cody Lerma MD 12/07/2023 6:39 PM 12/08/2023 Cody Lerma MD 12/06/2023 6:39 PM Length of Stay (Days): 6 GMLOS: 5.1 [employer] 12-12-2023 Note Formatting of this n ote is different from the original. Images from the original note were not included. Care Management Progress Note Pt has discharge order. Pt to return to [facility]. AMBULANCE DISPATCHER notified to set up transport. LINER INSERTER tasked to send discharge paperwork. Discharge Milestones and Delays Expected Date/Time: 12/12/2023 Disposition: Intermediate Facility Transport status: No current request Discharge Milestones Completed Place discharge order Complete med reconciliation Case mgmt discharge readiness Expected Discharge History Expected Date/Time Set By Reviewed At 12/12/2023 Lara Russell RN 12/12/2023 10:47 AM [facility] 12/12/2023 Ruiz Braun MD 12/12/2023 10:10 AM Dysphasia. telesitter. [facility] when stable" 12/12/2023 MITCHELL Graham 12/11/2023 9:11 AM 12/12/2023 Mi Titus RN 12/10/2023 10:56 AM From [facility]. Dysphasia. telesitter." 12/11/2023 MITCHELL Graham 12/10/2023 9:30 AM 12/08/2023 Cody Lerma MD 12/07/2023 6:39 PM 12/08/2023 Cody Lerma MD 12/06/2023 6:39 PM Length of Stay (Days): 6 GMLOS: 5.1 [facility] 12-12-2023 Note Formatting of this n ote might be different from the original. Discharge med list transmitted to return back to [facility] via [facility] per [facility] request. [facility] 12-12-2023 Note Formatting of this n ote might be different from the original. Discharge med list transmitted to return back to [facility] via [facility] per [facility] request. [facility] 12-12-2023 Hospital course Narrative Images from the original note were not included. Discharge Summary Tita Keith : 1935 ADMIT DATE: 12/06/2023 DISCHARGE DATE: 12/12/2023 PRIMARY CARE PHYSICIAN: Marj Plasencia VISIT STATUS: Admission CODE STATUS: DNR-CCA DISCHARGE DIAGNOSES: Principal Problem: Pneumonia due to infectious organism, unspecified laterality, unspecified part of lung Active Problems: Severe malnutrition (CMS/HCC) ([facility]) Acute, acute on chronic, unstable/uncontrolled chronic problems/diagnoses: [...] 12/07/2023 1610 Legionella and Streptococcus Urine Antigen [[id number]] (Abnormal) Urine, Clean Catch Final result Component Value Legionella pneumophila Ag Not Detected Streptococcus pneumoniae Ag Detected Abnormal SARS-CoV-2, Flu A/B, and RSV Combo [[id number]] (Abnormal) Swab from Nasopharynx Final result Component [...] Your Medications These medications were sent to [facility] [address] [facility] [place] [address] Hours: Sunday to Sunday 10 am to 6 pm cefdinir 300 MG capsule insulin glargine 100 UNIT/ML injection DIET: Adult diet Dysphagia - Minced and Moist; 5 carb choices (75 gm/meal); No Drinking Straws ACTIVITY: No restriction. COMPLEXITY OF FOLLOW UP: [x] Moderate Complexity: follow up within 7-14 calendar days (93241) [] Severe Complexity: follow up within 7 calendar days (74142) FOLLOW UP TESTING, PENDING RESULTS OR REFERRALS [...] 12/12/2023, 10:16 AM documented in this encounter [facility] 12-12-2023 Hospital Discharg e joleen Eastman RN - 12/12/2023 10:12 AM EST [...] (HCC) (Chronic) COVID-19 Dementia without behavioral disturbance ([facility]) Isolation/Infection: Droplet Pneumonia rule out Nurse Assessment: [...] assistance Toileting Total assistance Feeding Minimal assistance Programming Equipment Operator Total assistance Med Delivery yes Wound Care [...] Score: @READMISSIONRISKDETAILS@ Discharging to Facility/ Agency Name: [facility] Address: [id number] [place], [place] [id number] Dialysis Facility (if applicable) Name: Address: Dialysis Schedule: Phone: Fax: [employer] Imp[employer]ating Range Tender/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 Update Admission H&P: No change in H&P PHYSICIAN SIGNATURE: documented in this encounter [facility] 12-12-2023 Nurse Note Pt refused labs this am [facility] 12-12-2023 Nurse Note Pt refused labs this am documented in this encounter [facility] 12-11-2023 Plan of care note Problem: [...] Recommendations to address these barriers include . [facility] 12-11-2023 Note Formatting of this n [...] for 24 hours before discharge back to [facility]. 1220: Spoke with Mckenzie at [facility]. Confirms patient will need to be [...] MITCHELL Graham 12/11/2023 9:11 AM Dysphasia. telesitter. [facility] when stable" 12/12/2023 Mi Titus RN 12/10/2023 10:56 AM From [facility]. Dysphasia. telesitter." 12/11/2023 MITCHELL Graham 12/10/2023 9:30 AM 12/08/2023 Cody Lerma MD 12/07/2023 6:39 PM 12/08/2023 Cody Lerma MD 12/06/2023 6:39 PM Length of Stay (Days): 5 GMLOS: 5.1 [facility] 12-11-2023 Note Formatting of this n [...] for 24 hours before discharge back to [facility]. 1220: Spoke with Mckenzie at [facility]. Confirms patient will need to be [...] MITCHELL Graham 12/11/2023 9:11 AM Dysphasia. telesitter. [facility] when stable" 12/12/2023 Mi Titus RN 12/10/2023 10:56 AM From [facility]. Dysphasia. telesitter." 12/11/2023 MITCHELL Graham 12/10/2023 9:30 AM 12/08/2023 Cody Lerma MD 12/07/2023 6:39 PM 12/08/2023 Cody Lerma MD 12/06/2023 6:39 PM Length of Stay (Days): 5 GMLOS: 5.1 [facility] 12-10-2023 Plan of care note Problem: Knowledge [...] Recommendations to address these barriers include . [facility] 12-10-2023 Note Formatting of this n ote is different from the original. Images from the original note were not included. Care Management Progress Note Chart reviewed. Patient remains on 2 east for treatment of Pnemonia and RSV. On IVF and IV Rocephin. PT/OT. Droplet Isolation. Received call from Mckenzie at [facility]; [phone]. She states patient is a group home care bedhold and can return when ready. She states patient does not need authorization started before discharge. She did state patient will need to be tele sitter free for 24 hours; bedside Rn and Dr. Ray updated via secure [employer] chat. DC plan: Return to [facility], needs to be tele sitter free 24 hours before discharge. Discharge Milestones and Delays Expected Date/Time: 12/12/[address] discharge order Complete med reconciliation Case mgmt discharge readiness Clinical Stability Diagnsotic Workup Expected Discharge History Expected Date/Time Set By Reviewed At 12/12/2023 Mi Titus RN 12/10/2023 10:56 AM From [facility]. Dysphasia. telesitter." 12/11/2023 MITCHELL Graham 12/10/2023 9:30 AM 12/08/2023 Cody Lerma MD 12/07/2023 6:39 PM 12/08/2023 Cody Lerma MD 12/06/2023 6:39 PM Length of Stay (Days): 4 GMLOS: No GMLOS Documented [facility] 12-10-2023 Note Formatting of this n ote is different from the original. Images from the original note were not included. Care Management Progress Note Chart reviewed. Patient remains on 2 east for treatment of Pnemonia and RSV. On IVF and IV Rocephin. PT/OT. Droplet Isolation. Received call from Mckenzie at [facility]; [phone]. She states patient is a group home care bedhold and can return when ready. She states patient does not need authorization started before discharge. She did state patient will need to be tele sitter free for 24 hours; bedside Rn and Dr. Ray updated via secure [employer] chat. DC plan: Return to [facility], needs to be tele sitter free 24 hours before discharge. Discharge Milestones and Delays Expected Date/Time: 12/12/[address] discharge order Complete med reconciliation Case mgmt discharge readiness Clinical Stability Diagnsotic Workup Expected Discharge History Expected Date/Time Set By Reviewed At 12/12/2023 Mi Titus RN 12/10/2023 10:56 AM From [facility]. Dysphasia. telesitter." 12/11/2023 MITCHELL Graham 12/10/2023 9:30 AM 12/08/2023 Cody Lerma MD 12/07/2023 6:39 PM 12/08/2023 Cody Lerma MD 12/06/2023 6:39 PM Length of Stay (Days): 4 GMLOS: No GMLOS Documented [facility] 12-09-2023 Consult note Associated Order (s): PHARMACY TO DOSE VANCO Vancomycin therapy has been discontinued by Dr. Ray on 12/08/23. Thank you for the consult. Pharmacy signing off for vancomycin dosing. Dior Whitaker RPh, PharmD Date: 12/09/23 Time: 7:05 AM [facility] 12-09-2023 Consult note Associated Order (s): [...] Straws per MNT protocol. Monitor need for SETTER AUTOMATIC SPINNING LATHE consult. Initiate Ensure high protein TID per [...] (gastrocnemius), Hand (interosseous) Fluid Accumulation: Mild Extremities Fuel Tank Sealer And Tester Strength: Not Performed Nutrition Assessment: Pt was [...] (kg): 56 kg Total Energy Requirements (kcals/day): 4300-2653 kcals (30-35 kcals/kg) Weight Used for Protein [...] at facility) % Weight Change (Calculated): -3.1 [place] Body Weight (lbs) (Calculated): 190 lbs [place] Body Weight (Kg) (Calculated): 86 kg % [place] Body Weight (Calculated): 64.7 % BMI (kg/m2) [...] Oral Nutrition Supplement Dian Tipton RD Contact: *[phone] or via Secure Chat Associated Order(s): IP CONSULT TO INFECTIOUS DISEASES Images from the original note were not included. [facility] - Infectious Diseases Advanced Practice Provider Consult Note Reason for Consult: Bilateral pna History of Present Illness: This is an 88 yo M with a PMH of dementia, DM, HLD and HTN who presents to [facility] ED on 12/06 from his nursing facility [...] mL IVPB 750 mg IntraVENous q24h Kayleigh Stout, DO Current Outpatient Medications Medication [...] at this time ID to follow Dr Rao to cover this weekend Total time 80 [...] capacity - reached out to daughter/HCPOA Kayleigh Tyler, introduced self and role - Kayleigh stated that patient has 4 children, 2 boys 2 girls - stated 2 of patient's children live out of town - Kayleigh stated that patient was in hospice at [facility] and they revoked hospice for him to be treated for skin cancer - kayleigh stated that patient likes it at [facility] and she would like him to [...] Trauma Consult: no. (If yes, please add .traumapalpeggy chris for tracking purposes.) Subjective/Events Tita Keith is a 88 y.o. male with PMHx of Dementia, HTN, HLP, DM 2 who was admitted to [facility] on 12/06/23 from [facility] for altered mental status. Per daughter patient was previously on hospice at [facility], hospice was revoked to seek treatment [...] be obtained due to patient's mental status [place] Symptom Assessment Score [place] Score Pain Score 0 per FLACC Tiredness [...] status: no Marital status: single Living status: senior care Work history: retired Advance Care Planning: The [...] - see A and P We discussed [id number] concerns identified by the patient/surrogate, including - see A and P Interventions reviewed: Resuscitation procedures (CPR), Mechanical ventilator support, and Diagnostic testing Advance Care Planning Documents: Healthcare Power of Systems Eng: Completed Financial Power of Systems Eng: Other Unknown Living Will: Other Unknown Code Status: DNR-CCA In addition to the time spent evaluating and managing the patient's medical diagnoses above, 15 minutes of this encounter was spent discussing advanced care planning documented above. Please bill [id number] for 16-46 minutes and add additional [phone] for >46 minutes. Family Meeting: Participants: child [...] Note Initiated: yes. Pharmacy Note Vancomycin Consult Non-INVESTOR RELATIONS MANAGER Tita Keith is a 88 y.o. year old male ordered vancomycin for Pneumonia (CAP); consult from Dr. Stout to manage therapy. Patient Active Problem List Diagnosis Date Noted Pneumonia due to infectious organism, unspecified laterality, unspecified part of lung 12/06/2023 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) 09/17/2023 COVID-19 09/10/2023 Severe malnutrition (CMS/HCC) ([facility]) 01/20/2023 Hyperglycemia 01/19/2023 Hyperosmolar hyperglycemic state (HHS) ([facility]) 01/17/2023 New onset type 2 diabetes mellitus (CMS/HCC) ([facility]) 03/01/2022 Patient has no known allergies. CREATININE [...] continue to follow. documented in this encounter [facility] 12-08-2023 Note Formatting of this n ote might be different from the original. 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 Name/Contact Information: Kayleigh Scott dtr & HCPOA Cognition/Language: Confused at baseline Permission given to speak with patient statement services representative/caregiver as indicated: Confirmation of Payer with patient/family: Yes Payer Name: [place] Medicare [place]: Yes Confirmation of Primary Care Physician: Confirmed PCP Name: Marj Plasencia Seen in last 2 years?: Yes Primary Caregiver: Other (Comment) ([facility] staff) If assistance needed, confirmed caregiver ready, willing and able to care for patient at discharge: Yes Confirmed with: [facility] staff Living Arrangements Current Residence: Number of Floors Number of Entry Steps: Bed/Bath Levels: Facility: [facility] Facility Name: [facility] Plan to Return: Yes Lives with: (other residents of [facility]) Support Systems: Children, Family members, Comments (Other) ([facility] staff) Activities of Daily Living Ambulation: Assistance (FWW) Bathing/Dressing: Assistance Elimination/Continence/Toileting: Assistance Feeding: Independent Who Assists with Activities of Daily Living: ECF staff Instrumental Activities of Daily Living Prescription Coverage: Yes Pharmacy Used: [facility] pharmacy Medication Management: Medication dispenser Who assists [...] to: Discharge Planning Actions: Continue to follow, Intermediate Facility referral indicated [place] of choice: [place] of choice discussed Patient's Choice Rights and [employer] and Collaborative Relationships Disclosed as Indicated for Post-Acute Care: Yes Interdisciplinary Team Engagement: Social Work Referral for: Additional Information: Spoke with patient's daughter, Kayleigh Scott, at [phone]. Introduced self and role. Patient admitted for [...] PT/OT recommending SNF LOC. Return referral to [facility] ECF submitted via [facility]. [facility] will continue to follow. Ru Duckworth RN [facility] 12-08-2023 Note Formatting of this n ote might be different from the original. 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 Name/Contact Information: Kayleigh Scott dtr & MAY Cognition/Language: Confused at baseline Permission given to speak with patient statement services representative/caregiver as indicated: Confirmation of Payer with patient/family: Yes Payer Name: [place] Medicare : Yes Confirmation of Primary Care Physician: Confirmed PCP Name: Marj Plasencia Seen in last 2 years?: Yes Primary Caregiver: Other (Comment) ([facility] staff) If assistance needed, confirmed caregiver ready, willing and able to care for patient at discharge: Yes Confirmed with: ECF staff Living Arrangements Current Residence: Number of Floors Number of Entry Steps: Bed/Bath Levels: Facility: [facility] Facility Name: [facility] Plan to Return: Yes Lives with: (other residents of [facility]) Support Systems: Children, Family members, Comments (Other) ([facility] staff) Activities of Daily Living Ambulation: Assistance (FWW) Bathing/Dressing: Assistance Elimination/Continence/Toileting: Assistance Feeding: Independent Who Assists with Activities of Daily Living: ECF staff Instrumental Activities of Daily Living Prescription Coverage: Yes Pharmacy Used: [facility] pharmacy Medication Management: Medication dispenser Who assists [...] to: Discharge Planning Actions: Continue to follow, Intermediate Facility referral indicated [place] of choice: [place] of choice discussed Patient's Choice Rights and [employer] and Collaborative Relationships Disclosed as Indicated for Post-Acute Care: Yes Interdisciplinary Team Engagement: Social Work Referral for: Additional Information: Spoke with patient's daughter, Kayleigh Scott, at [phone]. Introduced self and role. Patient admitted for [...] PT/OT recommending SNF LOC. Return referral to [facility] ECF submitted via [facility]. [facility] will continue to follow. Ru Duckworth RN [facility] 12-07-2023 Emergency department Note Dietary bringing pt's tray to 2 east. Radha Torres RN 12/07/23 184 [facility] 12-07-2023 Emergency department Note Dietary bringing [...] in replacing them. Pt removes again before designer writer able to complete replacing all devices. KB White 12/07/23 1204 ID and daughter @ bedside. Radha Torres RN 12/07/23 0943 PT @ bedside. Radha Torres RN 12/07/23 0840 [facility] (S[facility]) staff notified about pt admission and [...] 1935 Date of evaluation: 12/06/2023 ED Provider: Coyd Lerma MD CHIEF COMPLAINT Chief Complaint Patient [...] of a pneumonia. He presents from his senior care. Recently, he was hospice, but this was [...] Housing in the Last Year: No SCREENINGS [place] Coma Scale Best Eye Response: To verbal stimuli Best Verbal Response: Inappropriate words Best Motor Response: Localizes pain [place] Coma Scale Score: 11 PHYSICAL EXAM ED [...] In compliance with this authorization, please visit www.fda.gov/media/671737/download or www.fda.gov/media/112217/download to access the applicable information sheets. CBC [...] Culture. Procedure Abnormality Status --------- ------ Complete Urinalysis[[id number]] Please view results for these tests on the individual orders. COMPLETE URINALYSIS TROPONIN, WITH SERIAL REFLEX All other labs were within normal range or not returned as of this dictation. EMERGENCY DEPARTMENT COURSE/Reval Vitals: Vitals: 12/06/23 1802 12/06/23 1810 12/06/23 1832 12/06/23 1902 BP: 133/74 133/74 136/82 123/82 BP Location: Patient Position: Pulse: 95 93 89 84 Resp: 20 19 20 25 Temp: SpO2: 92% 93% 93% [...] 12/06/23 1802 12/06/23 1810 12/06/23 1832 12/06/23 1902 BP: 133/74 133/74 136/82 123/82 BP Location: [...] bolus 1,674 mL (0 mL IntraVENous Stopped 12/06/231739) iopamidol (Isovue-370) 76 % injection 75 mL [...] Shock. Cody Lerma MD EKG interpreted by me: 12-06-2023. Time 1936. Rate 95 normal sinus rhythm. Normal axis. TERE 169, QRS 74, QTc 420. No STEMI. Discussions with other clinicians: hospitalist, about admission Medical conditions impacting care: dementia Social determinants of health affecting care: Resides at senior care Escalation of care, appropriate for: Admission MDM: 88-year-old male presenting with concerns about treatment failure for pneumonia from his senior care. He was hemodynamically stable, but not met [...] signed) Emergency Medicine Physician Cody Lerma MD 12/06/23 1950 Patient is from [facility] and was sent due to Mental status change, fever of 105 oral, rigors, and is being treated for pneumonia. Patient was started on Cefdinar 300 mg PO BID. [facility] X-ray at the [facility] showed infiltrates. Patient was given Tylenol suppository while EMS was enroute. documented in this encounter [facility] 12-07-2023 Emergency department Note Pt received ensure and is drinking it independently. Radha Torres RN 12/07/23 1826 [facility] 12-07-2023 Emergency department Note Updated pt's RN Carly. Radha Torres RN 12/07/23 1818 [facility] 12-07-2023 Emergency department Note Ordered pt dinner. Radha Torres RN 12/07/23 1801 [facility] 12-07-2023 Emergency department Note Pt sleeping with non-labored respirations. Radha Torres RN 12/07/23 1656 [facility] 12-07-2023 Consult note Associated Order (s): IP CONSULT TO DIETITIAN Nutrition Assessment Type and Reason for Visit: Initial, Consult (poor PO) Nutrition Recommendations/Plan: Modify diet to Adult diet Dysphagia - Minced and Moist; 5 carb choices (75 gm/meal); No Drinking Straws per MNT protocol. Monitor need for SETTER AUTOMATIC SPINNING LATHE consult. Initiate Ensure high protein TID per [...] (gastrocnemius), Hand (interosseous) Fluid Accumulation: Mild Extremities Fuel Tank Sealer And Tester Strength: Not Performed Nutrition Assessment: Pt was [...] (kg): 56 kg Total Energy Requirements (kcals/day): 4334-4944 kcals (30-35 kcals/kg) Weight Used for Protein [...] at facility) % Weight Change (Calculated): -3.1 [place] Body Weight (lbs) (Calculated): 190 lbs [place] Body Weight (Kg) (Calculated): 86 kg % [place] Body Weight (Calculated): 64.7 % BMI (kg/m2) [...] Oral Nutrition Supplement Dian Tipton RD Contact: *[phone] or via Secure Chat [employer] 12-07-2023 Emergency department Note Pt ate about 30% of tray. Pt pulling at leads again. Radha Torres RN 12/07/23 1423 [facility] 12-07-2023 Consult note Associated Order (s): IP CONSULT TO INFECTIOUS DISEASES Images from the original note were not included. [facility] - Infectious Diseases Advanced Practice Provider Consult Note Reason for Consult: Bilateral pna History of Present Illness: This is an 88 yo M with a PMH of dementia, DM, HLD and HTN who presents to [facility] ED on 12/06 from his nursing facility [...] for accounting for open encounter. SIDNEY Faulkner, PAClaudetteC [employer] Work Phone: 12-07-2023 Emergency department Note Pt more calm post medication. Assisted pt to eat lunch. Radha Torres RN 12/07/23 1254 [facility] 12-07-2023 Emergency department Note #20 left posterior forearm placed in 1 attempt after pt removed his IV. Pt tolerated well. Site wrapped in gauze for protection. KB White 12/07/23 1231 [facility] 12-07-2023 Emergency department Note Let physician know about pt's agitation and non-cooperation. Radha Torres RN 12/07/23 1213 [facility] 12-07-2023 Emergency department Note Rounded on pt. Pt removed last IV and took self off all telemetry. Pt refusing IV. Radha Torres RN 12/07/23 1210 [facility] 12-07-2023 Emergency department Note Pt removed all monitoring devices and is not cooperative with staff in replacing them. Pt removes again before designer writer able to complete replacing all devices. KB White 12/07/23 1204 [facility] 12-07-2023 History and physical note Images [...] he was sent here from the nursing senior care, he was a hospice care patient until [...] RAY MD, MD Division of Hospitalist Medicine [facility] [employer] 12-07-2023 History and physical note Images from [...] he was sent here from the nursing senior care, he was a hospice care patient until [...] Child RAI RAY MD, MD [facility] documented in this encounter [facility] 12-07-2023 Emergency department Note ID and daughter @ bedside. Radha Torres RN 12/07/23 0943 [facility] 12-07-2023 Emergency department Note PT @ bedside. Radha Torres RN 12/07/23 0840 [facility] 12-07-2023 Emergency department Note [facility] ([facility]) staff notified about pt admission and status. Daughter @ bedside feeding pt. Daughter updated on POC. Radha Torres RN 12/07/23 0822 [facility] 12-07-2023 Emergency department Note Rounded on [...] pt breakfast. Radha Torres RN 12/07/23 0757 [facility] 12-07-2023 Consult note Associated Order (s): IP [...] capacity - reached out to daughter/HCPOA Kayleigh Tyler, introduced self and role - Kayleigh stated that patient has 4 children, 2 boys 2 girls - stated 2 of patient's children live out of town - Kayleigh stated that patient was in hospice at [facility] and they revoked hospice for him to be treated for skin cancer - kayleigh stated that patient likes it at [facility] and she would like him to [...] HLP, DM 2 who was admitted to [facility] on 12/06/23 from [facility] for altered mental status. Per daughter patient was previously on hospice at [facility], hospice was revoked to seek treatment [...] be obtained due to patient's mental status [place] Symptom Assessment Score [place] Score Pain Score 0 per FLACC Tiredness [...] status: no Marital status: single Living status: senior care Work history: retired Advance Care Planning: The [...] - see A and P We discussed [id number] concerns identified by the patient/surrogate, including - see A and P Interventions reviewed: Resuscitation procedures (CPR), Mechanical ventilator support, and Diagnostic testing Advance Care Planning Documents: Healthcare Power of Systems Eng: Completed Financial Power of Systems Eng: Other Unknown Living Will: Other Unknown Code Status: DNR-CCA In addition to the time spent evaluating and managing the patient's medical diagnoses above, 15 minutes of this encounter was spent discussing advanced care planning documented above. Please bill [id number] for 16-46 minutes and add additional [id number] for >46 minutes. Family Meeting: Participants: child [...] hospice appropriate? TBD Transition Note Initiated: yes. [facility] 12-07-2023 Consult note Formatting of th is note is different from the original. Pharmacy Note Vancomycin Consult Non-INVESTOR RELATIONS MANAGER Tiat Keith is a 88 y.o. year old male ordered vancomycin for Pneumonia (CAP); consult from Dr. Stout to manage therapy. Patient Active Problem List Diagnosis Date Noted Pneumonia due to infectious organism, unspecified laterality, unspecified part of lung 12/06/2023 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) 09/17/2023 COVID-19 09/10/2023 Severe malnutrition (CMS/HCC) ([facility]) 01/20/2023 Hyperglycemia 01/19/2023 Hyperosmolar hyperglycemic state (HHS) ([facility]) 01/17/2023 New onset type 2 diabetes mellitus ([facility]/HCC) (FORM[facility]LY [facility]) 03/01/2022 Patient has no known allergies. CREATININE [...] for the consult. Will continue to follow. [facility] 12-06-2023 Emergency department Triage note Patient is from [facility] and was sent due to Mental status change, fever of 105 oral, rigors, and is being treated for pneumonia. Patient was started on Cefdinar 300 mg PO BID. [facility] X-ray at the [facility] showed infiltrates. Patient was given Tylenol suppository while EMS was enroute. [facility] 12-06-2023 Physician Emergency department Note EMERGENCY [...] of a pneumonia. He presents from his senior care. Recently, he was hospice, but this was [...] Inappropriate words Best Motor Response: Localizes pain [place] Coma Scale Score: 11 PHYSICAL EXAM ED [...] In compliance with this authorization, please visit www.fda.gov/media/991714/download or www.fda.gov/media/601863/download to access the applicable information sheets. CBC [...] Culture. Procedure Abnormality Status --------- ------ Complete Urinalysis[[id number]] Please view results for these tests on the individual orders. COMPLETE URINALYSIS TROPONIN, WITH SERIAL REFLEX All other labs were within normal range or not returned as of this dictation. EMERGENCY DEPARTMENT COURSE/Reval Vitals: Vitals: 12/06/23 1802 12/06/23 1810 12/06/23 1832 12/06/23 1902 BP: 133/74 133/74 136/82 123/82 BP Location: Patient Position: Pulse: 95 93 89 84 Resp: 20 19 20 25 Temp: SpO2: 92% 93% 93% [...] 12/06/23 1802 12/06/23 1810 12/06/23 1832 12/06/23 1902 BP: 133/74 133/74 136/82 123/82 BP Location: [...] Shock. Cody Lerma MD EKG interpreted by me: 12-06-2023. Time 1936. Rate 95 normal sinus rhythm. Normal axis. TERE 169, QRS 74, QTc 420. No STEMI. Discussions with other clinicians: hospitalist, about admission Medical conditions impacting care: dementia Social determinants of health affecting care: Resides at senior care Escalation of care, appropriate for: Admission MDM: 88-year-old male presenting with concerns about treatment failure for pneumonia from his senior care. He was hemodynamically stable, but not met [...] Emergency Medicine Physician Cody Lerma MD 12/06/231949 [facility] 09-19-2023 Nurse Note Report given to apostolic receiving nurse. All questions answered. Waiting on transport [facility] 09-19-2023 Nurse Note Report given to apostolic receiving nurse. All questions answered. Waiting on transport documented in this encounter [facility] 09-19-2023 History of Presen t illness Narrative Images from the original note were not included. Speech-Language Pathology SPEECH LANGUAGE PATHOLOGY [facility] Dysphagia Treatment Note Patient Name: Tita Keith Evaluation Date: 09/19/2023 Date of : 1935 Admission Date: 09/10/2023 11:21 AM Age: 87 y.o. Room/Bed: [facility] A Subjective Patient alert and restless, fidgeting with sock on his arm. Seen upright, after pulling up in bed.. No visitors at bedside. Pt able to state name only. SETTER AUTOMATIC SPINNING LATHE oriented pt to place and time. Reference current date on the white board. Pain: RN managing pain. No indication or c/o pain. PPE Worn: n95, face shield, gown, gloves Objective & Assessment Dysphagia Treatment Dysphagia Activity 1: Assess cough and clearing ability (abdomenal/deep breathing) Dysphagia Activity 2: Assess advanced diet trials. Pt was alert when SETTER AUTOMAT[employer] SPINNING LATHE entered. He did eat most of his breakfast tray per discussion with nursing officer. He took depend off and was putting [...] for repeat instrumentation. Clinically improved. Continue acute SETTER AUTOM[employer]INNING LATHE therapy per initial plan of care and [...] Start: 09/13/23 Expected End: 09/27/23 Therapy Time [employer]HE Individual Minutes Time In: 1006 Time Out: 1025 Minutes: 19 BRITTNY Mattson Images from the original note were not included. OCCUPATIONAL THERAPY [facility] Treatment Note Name/MRN: Tita Keith ([id number]) Date of : 1935 Age: 87 y.o. Room/Bed: [facility] A Visit #: 1 out of 8 [...] in accordance with facility standards. Fall Risk: [place] Fall Risk Score: 75 (High Risk) Precautions/Restrictions: [...] original note were not included. PHYSICAL THERAPY [facility] Treatment Note Name/MRN: Tita Keith ([id number]) Date of : 1935 Age: 87 y.o. Room/Bed: B4-453/B4-453 A Visit #: 1 out of 5 [...] Speech-Language Pathology SPEECH LANGUAGE PATHOLOGY [facility] Dysphagia Treatment Note Patient Name: Tita Keith Evaluation Date: 09/18/2023 Date of : 1935 Admission Date: 09/10/2023 11:21 AM Age: 87 y.o. Room/Bed: B4453/B4-842 A Subjective Patient alert and restless. Seen repositioned to most upright in bed. No visitors at bedside. Spoke with ISABEL Michaud who cleared pt for treatment. Pt was [...] Start: 09/13/23 Expected End: 09/27/23 Therapy Time [employer] LATHE Individual Minutes Time In: 1118 Time Out: [...] from the original note were not included. 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 Weaned to RA. Denies cough or dyspnea Denies f/c/n/v/d, tolerating PO Awaiting dispo plans to return to SNF Objective: Vitals: Patient Vitals for the past 24 hrs: BP Temp Temp src Pulse Resp SpO2 09/17/23 0745 (!) 145/75 36.9 C (98.5 F) Temporal 77 16 93 % 09/16/232228 135/76 -- -- 69 -- -- 09/16/232043 (!) 169/90 36.1 C (96.9 F) Temporal [...] normal. Behavior is cooperative. Labs: Recent Labs 09/17/23 0031 NA 140 K 3.1* CL 109* CO2 25 BUN 37* CREATININE 0.95 GLUCOSE 50* CALCIUM 9.2 Recent Labs 09/17/23 0031 WBC 7.0 HGB 13.7 HCT 39.5* PLT [...] agreement with plan. Aliyah Raines APRN, CNP [facility] Infectious Disease 12:40 PM 09/17/2023 Images from the original note were not included. Speech-Language Pathology SPEECH LANGUAGE PATHOLOGY [facility] Dysphagia Treatment Note Patient Name: Tita Keith Evaluation Date: 09/17/2023 Date of : 1935 Admission Date: 09/10/2023 11:21 AM Age: 87 y.o. Room/Bed: [facility] A Subjective Patient confused and cooperative. Seen upright in bed. Answers some basic questions with weak vocal quality. Follows some basic commands. No visitors at bedside. Spoke with RNKarel, who cleared pt for treatment. Current Diet: [...] with current diet and trial upgrades with SETTER AUTOMAT[employer]INNING LATHE only. Plan & Recommendations Plan: Continue acute SETTER AUTOMAT[employer] SPINNING LATHE therapy per initial plan of care and [...] of aspirations (Progressing) Start: 09/13/23 Therapy Time [employer]TER AUTOMAT[employer] SPINNING LATHE Individual Minutes Time In: 1055 Time Out: 1105 Minutes: 10 TRE AstorgaSETTER AUTOMATIC SPINNING LATHE Department of Family Medicine Daily Progress Note [...] Nutrition Recommendations/Plan: Continue diet as recommended by SETTER AUTOMAT[employer] SPINNING LATHE during admit: Puree diet with thin liquids [...] deltoids) Fluid Accumulation: No significant fluid accumulation Fuel Tank Sealer And Tester Strength: Not Performed Nutrition Assessment: 87 year old man with PMHx: dementia, HLD, HTN, DMII(A1C=8.6% on 01/18/23), and Dysphagia (MBSS 01/22/23 with mild oral and moderate pharyngeal deficits. Recommended Minced and Moist diet +pureed meats, and thin liquids). Recently family revoked DNR-CC for dermatology procedure scheduled on 09/25/23. He presented to [facility] ED with shortness of breath from nursing facility. Significant labs on admit: WBC(3.5), Hbg(12.3), Hct(36.7), Na+(134), BUN(50), Creatinine(1.63), BGL(289). Imaging on admit without acute process. +COVID and Respiratory PCR. Continues on IV fluid and decadron, final dose of remdesivir today. Noted difficulty eating, and [employer] AUT[employer] SPINNING LATHE consulted and recommended: Pureed solids and Thin liquids with meds crushed in puree". RDN donned appropriate, required PPE to assess patient [id number]. Sitting up in bed at time of [...] (kg): 54.5 kg Total Energy Requirements (kcals/day): 3227-8209 (30-35 kcal/kg CBW) Weight Used for Protein Requirements: Current Weight in Kg Used for Protein Requirements: 54.5 kg Estimated Total Protein (g/day): 65-82 (1.2-1.5 g protein/kg CBW) Estimated Daily Total Fluid (ml/day): per EMR Nutrition Related Findings: A+Ox1, +generalized Non-pitting edema. Inna score=11. +head tear. Meds: remdesivir, decadron, remeron, insulin, +IVF. Labs reviewed: CRP(60.0), BGL(238), PO minimal, +Puree diet per SETTER AUTOMAT[employer] SPINNING LATHE Wound Type: Skin Tears (+skin tear to [...] his admit) % Weight Change (Calculated): -2.9 [place] Body Weight (lbs) (Calculated): 190 lbs [place] Body Weight (Kg) (Calculated): 86 kg % [place] Body Weight (Calculated): 63.2 % BMI (kg/m2) [...] current diet Xuan Hogan RDN, LDN, Contact: *[phone] Images from the original note were not included. Speech-Language Pathology SPEECH LANGUAGE PATHOLOGY [facility] Dysphagia Treatment Note Patient Name: Tita Keith Evaluation Date: 09/14/2023 Date of : 1935 Admission Date: 09/10/2023 11:21 AM Age: 87 y.o. Room/Bed: [facility] A Subjective Patient somnolent, confused and cooperative. [...] and required short, 1 step directions from SETTER AUTOMATIC SPINNING LATHE. Tolerated thin liquids via straw & cup [...] of aspirations (Progressing) Start: 09/13/23 Therapy Time SETTER AUTOM[employer]INNING LATHE Individual Minutes Time In: 0955 Time Out: 1005 Minutes: 10 Janet Lauren CCC-SETTER AUTOM[employer]INNING LATHE Department of Family Medicine Daily Progress Note [...] Pending the following - chantal STOUT DO 09/13/23 9:57 AM Images from the original note were not included. Speech-Language Pathology SPEECH LANGUAGE PATHOLOGY [facility] Bedside Swallow Evaluation Patient Name: Tita Keith Evaluation Date: 09/13/2023 Date of : 1935 Admission Date: 09/10/2023 11:21 AM Age: 87 y.o. Room/Bed: B4-598/B4-496 A IMPRESSION: S/s oropharyngeal dysphagia. No overt [...] bolus Pt would benefit from skilled acute SETTER AUTOMAT[employer] SPINNING LATHE services to address oropharyngeal dysphagia. Frequency: 3 [...] Retrospective chart review revealed a history of SETTER AUTOMATIC SPINNING LATHE services as follows: Pt was seen from [...] History: Past Medical History: Diagnosis Date Dementia ([facility]) Diabetes mellitus (HCC) Hyperlipidemia Hypertension Past Surgical History: Past Surgical History: Procedure Laterality Date BACK SURGERY Admission Diagnosis: Patient Active Problem List Diagnosis Date Noted COVID-19 09/10/2023 Severe malnutrition (CMS/HCC) ([facility]) 01/20/2023 Hyperglycemia 01/19/2023 Hyperosmolar hyperglycemic state (HHS) ([facility]) 01/17/2023 New onset type 2 diabetes mellitus (CMS/HCC) ([facility]) 03/01/2022 History of Present Illness: Tita Keith [...] more somnolent. Discussed with patient's power of energy attorney and daughter who noted that she [...] symptoms of aspirations Start: 09/13/23 Therapy Time [employer] LATHE Individual Minutes Time In: 923 Time Out: 934 Minutes: 11 Shannon Badillo CCC-SETTER AUTOM[employer]IC SPINNING LATHE Images from the original note were not included. [facility] - Infectious Diseases Attending [...] Blood culture Site #1 - Suspected Infection [[id number]] Blood, Venous Preliminary result Component Value Blood Culture No growth at 24 hours P 09/11/2023 1013 09/12/2023 0502 Blood culture Site #2 - Suspected Infection [[id number]] (Abnormal) Blood, Venous Preliminary result Component Value Blood Culture Gram-positive cocci Panic P 09/11/2023 1013 09/12/2023 0502 Blood Culture Identification - Anaerobic [[id number]] (Abnormal) Blood, Venous Final result Component Value Staphylococcus epidermidis Detected Abnormal mecA/C (MRSE/MRSL) Detected Abnormal 09/11/2023 0635 09/12/2023 0708 Respiratory culture and Stain [[id number]] (Abnormal) Sputum Preliminary result Component Value Respiratory [...] 1318 SARS-CoV-2, Flu A/B, and RSV Combo [[id number]] (Abnormal) Swab from Nasopharynx Final result Component Value SARS-CoV-2 Detected Abnormal Respiratory Syncytial Virus Not Detected Influenza A Not Detected Influenza B Not Detected Lines: PIV site ok Radiography/Echo/Other: XR chest 1 view [[id number]] Collected: 09/10/23 1228 Order Status: Completed Updated: [...] may be discontinued. Pancytopenia improved. MRSE in 1/2 blood cx may not be significant. Please [...] 09/10/23 - droplet isolation - resides in [facility]--they are aware of covid status, his roommate has continued to test negative for covid as has all residents and staff - per primary: dexamethasone, remdesivir 12/24--suspect completion before returning to senior care - on room air without concerns, admits to breathing easy - was on morphine concentrate at facility will order prn, 5mg q2h and monitor needs for pain or air hunger--without need since ordering Dementia - resides at [facility] - with behaviors as per primary [...] there Palliative Care Encounter -full code--changed to [id number] icu transfer, if decompensates and needs hospice here will do that - call to dtr Kayleigh at [phone], introduced myself and service, why consulted provided medical updates, and plans. - without LW or HCPOA in epic - dtr Kayleigh is primary emergency contact - goals clear, without symptoms will sign off at this time. Tita Keith has been seen in consultation by [facility] Palliative Care during their admission to [facility]. They currently have no uncontrolled symptoms and have established goals of care and we have signed off of their case. The patient has established follow-up with [facility] at [facility] . Total of 40 minutes spent on [...] is a 87 y.o. male residing at [facility] for 24 hour care and supervision [...] other systems were reviewed and are negative. [place] Symptom Assessment Score [place] Score Pain Score 0 Tiredness Score 0 [...] Assessed by: patient and provider. 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 PHYSICAL THERAPY [facility] Initial Evaluation Name/MRN: Tita Keith ([id number]) Evaluation Date: 09/11/2023 Date of : 1935 [...] History: Past Medical History: Diagnosis Date Dementia ([facility]) Diabetes mellitus ([facility]) Hyperlipidemia Hypertension Past Surgical History: Past Surgical History: Procedure Laterality Date BACK SURGERY Admission Diagnosis: Patient Active Problem List Diagnosis Date Noted COVID-19 09/10/2023 Severe malnutrition ([facility]) ([facility]) 01/20/2023 Hyperglycemia 01/19/2023 Hyperosmolar hyperglycemic state (HHS) ([facility]) 01/17/2023 New onset type 2 diabetes mellitus ([facility]) ([facility]) 03/01/2022 Medical Precautions: Droplet Plus Proper PPE donned/doffed in accordance with facility standards. Fall Risk: [place] Fall Risk Score: 60 (High Risk) Precautions/Restrictions: N/A Family/Caregiver Present: none Overall Cognitive Status: Exceptions - Arousal/alertness: delayed responses to stimuli - Following commands: inconsistently follows commands - Attention span: difficulty dividing attention - Memory: decreased recall of recent events, decreased short term memory, and decreased group home memory - Safety judgement: decreased awareness of [...] 09/18/23 Therapy Time Individual Co-treatment Time In 45 Time Out 1006 Minutes Kerline Bhat PT Patient's Physical Therapy Plan of Care supervision is transferred to a [facility] Physical Therapist. Goals and/or treatment plan was established in collaboration with patient/family/other representatives. Images from the original note were not included. OCCUPATIONAL THERAPY [facility] Initial Evaluation Name/MRN: Tita Keith ([id number]) Evaluation Date: 09/11/2023 Date of : 1935 [...] Diagnosis Date Noted COVID-19 09/10/2023 Severe malnutrition ([facility]/HCC) ([facility]) 01/20/2023 Hyperglycemia 01/19/2023 Hyperosmolar hyperglycemic state (HHS) ([facility]) 01/17/2023 New onset type 2 diabetes mellitus ([facility]/HCC) ([facility]) 03/01/2022 Medical Precautions: Droplet Plus Proper PPE [...] events, decreased short term memory, and decreased intermediate designer memory - Safety judgement: decreased awareness of [...] of Care supervision is transferred to a [facility] Occupational Therapist. Goals and/or treatment plan was established in collaboration with patient/family/other representatives. documented in this encounter [facility] 09-19-2023 Note Formatting of this n ote might be different from the original. Transportation arranged through [facility] by cot set for 11:30 am, however, since an ambulance is near by they may arrive at 11 am. Informed RN of this and she will call report. Notified patient's daughter of this as well. Attempted to speak with [facility] admissions to notify them as well. Sent message in [employer]. SW remains available if any other needs or concerns arise. [facility] 09-19-2023 Note Formatting of this n ote might be different from the original. Transportation arranged through [facility] by cot set for 11:30 am, however, since an ambulance is near by they may arrive at 11 am. Informed RN of this and she will call report. Notified patient's daughter of this as well. Attempted to speak with [facility] admissions to notify them as well. Sent message in [employer]. SW remains available if any other needs or concerns arise. [facility] 09-19-2023 Miscellaneous Notes Transportation arranged through [facility] by cot set for 11:30 am, however, since an ambulance is near by they may arrive at 11 am. Informed RN of this and she will call report. Notified patient's daughter of this as well. Attempted to speak with [facility] admissions to notify them as well. Sent message in [employer]. SW remains available if any other needs or concerns arise. Discharge med list transmitted to return back to [facility] via [facility] per [facility] request. Patient is able to discharge to [facility] today. . Number for report is [phone]. Attending aware. Did update primary care nurse and social staff worker. Did task LINER INSERTER to send discharge packet to [facility]. . Per Mckenzie at [facility] patient is able to return to facility tomorrow morning.Will update attending in the am. . Sent updated notes including MAR to return back to [facility] via [facility] per [facility] request. Await review and response regarding ability to accept. TCC notified. Tasked [facility] to send MAR to [facility]. Received call from Mckenzie at [facility] and they are agreeable to accepting patient back under skilled level of care tomorrow. She wants to verify that his Medicare is his primary payor, before [facility] updates attending of this. Anticipate patient to return to [facility] tomorrow. . Did call and update Mckenzie at [facility] that Covid PCR is still positive. She will speak with web administrator and call TCC back with update regarding requirements for him to return to facility. . Images from the original note were not included. Care Management Progress Note Covid PCR requested by [facility] was positive yesterday afternoon. Will call and speak with Mckenzie in admissions later this morning to discuss next steps regarding return to their facility. Pulse ox is 94% on room air. Remains on iv decadron and iv fluids. Discharge plan is return to [facility] when cleared by facility. . Discharge Milestones [...] tests within 48 hours to return to [facility] due to hx of wandering." 09/15/2023 Mayra Lundberg RN 09/12/2023 8:44 AM iv decadron and remdesivir 09/13/2023 Kayleigh Stout, DO 09/11/2023 12:51 PM 09/13/2023 Kayleigh Stout, DO 09/10/2023 8:04 PM 09/12/2023 Bernard Phililps MD 09/10/2023 2:03 PM Length of Stay (Days): 8 GMLOS: 5.1 Spoke with Mckenzie at [facility]. Requesting covid PCR be completed today and one on day 10. If both are negative will be able to return on day 11. If not will have to wait/check again with her web administrator. Must be PCR and not antigens. Did update attending and primary care nurse of this. Did call and spoke with Mckenzie at [facility] to determine if patient is able to return once out of 10 days of isolation period and she is checking with her web administrator and will updated TCC with response... Images from the original note were not included. Care Management Progress Note Remains on iv decadron and cont ivf. Did require iv apresoline x 1 last pm for elevated blood pressure. Blood pressures have been elevated. Remains off of oxygen. Will contact admissions at [facility] to determine if will require 2 [...] tests within 48 hours to return to [facility] due to hx of wandering." 09/15/2023 [...] diet. Due to fact patient wanders at [facility] home. Will need to have two negative rapid covid test within 48 hours of each other prior to returning. Did update attending of this. . 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 Name/Contact Information: KAYLEIGH SCOTT [phone] DAUGHTER Cognition/Language: Confused at baseline Permission given to speak with patient statement services representative/caregiver as indicated: Yes Confirmation of Payer with patient/family: Yes Payer Name: [employer] MEDICARE : Yes Confirmation of Primary Care Physician: Confirmed PCP Name: MARJ PLASENCIA Seen in last 2 years?: Yes Primary Caregiver: Other (Comment) If assistance needed, confirmed caregiver ready, willing and able to care for patient at discharge: Yes Confirmed with: STAFF AT [facility] Living Arrangements Current Residence: ([facility]) Number of Floors 1 Number of Entry Steps: (LEVEL ENTRY) Bed/Bath Levels: Both first floor Facility: [facility] Facility Name: [facility] Plan to Return: Lives with: Other (Comment) (FACILITY) Support Systems: Family members, Comments (Other) (FACILITY) Activities of Daily Living Ambulation: Assistance (WITH FWW) Bathing/Dressing: Assistance Elimination/Continence/Toileting: Assistance Feeding: Independent Who Assists with Activities of Daily Living: staff at [facility] Instrumental Activities of Daily Living Prescription Coverage: Yes Pharmacy Used: [facility] Medication Management: Medication dispenser Who assists with medication securing and setup?: staff at [facility] Transportation/Shopping: Assistance Provider Transportation/Shopping Assistance Provider Name: payor provided transport Transportation Mode: Payer provided transport service Needs Assistance with Transportation at Discharge: Yes Meal Preparation: Assistance Provider Meal Prep Assistance Provider Name: [facility] Laundry/Cleaning: Assistance Provider Laundry/Cleaning Assistance Provider Name: [facility] Finances/Bill Paying: Assistance Provider Finances/Bill Payer Assistance Provider Name: daughter Communication: Emergency Call System Types of Care Services/Equipment Utilized Care Services: Dialysis Type: NA Durable Medical Equipment: Walker, Glucometer Patient's Goal/Discharge Plan Patient expects to be discharged to: return to [facility] Discharge Planning Actions: Continue to follow Patient's Choice Rights and [employer] and Collaborative Relationships Disclosed as Indicated for Post-Acute Care: Interdisciplinary Team Engagement: PT/OT, Palliative Care Social Work Referral for: Additional Information: Inpatient status from [facility] with freddie. Receiving iv decadron and remdesivr. Did call and speak with daughter Kayleigh to complete case management initial assessment. Patient has been at facility since January. Was active with [facility] hospice services until last week, but had skin cancer that needed removed and due to billing, hospice services were revoked last week and plan to remain revoked until skin cancer is removed. Tentative date of removal is 09/25. Kayleigh would like patient to return to [facility] upon discharge. Spoke with Mckenzie [phone] international logistics coordinator at [facility], due to patient wandering at their facility and not staying in his room. They are unable to take him back until he has 2 negative rapid covid test within 48 hours of each other or until his appt on 09/25. Did call and speak with [facility] manager field investigations and will honor [facility] infection control policies. Patient's initial covid diagnosis was 09/10. Will continue to work with [facility] and attending for return back to their facility. Did provide Mckenzie with [facility]'s direct contact number.. Mayra Lundberg RN Admitted from [facility] with covid. Admitted to medical. Iv remdesivir and decadron, supplemental oxygen. Per documentation is 93% on ra. 10/23 bc positive. Anticipate contaminate. Palliative care following. Tentative discharge plan is to return to [facility] when medically stable. Will need to determine if will be returning under skilled services or under hospice care. Will contact daughter to complete case management initial assessment and also speak with admissions at [facility] and continue to follow with palliative care.. Called and left message for daughter to assist with completing case management initial assessment. . Referral placed to return back to [facility] via [facility] per TCC request. Await review and response regarding ability to accept. TCC notified. documented in this encounter [facility] 09-19-2023 Note Formatting of this n ote might be different from the original. Discharge med list transmitted to return back to [facility] via [facility] per TCC request. [facility] 09-19-2023 Note Formatting of this n ote might be different from the original. Discharge med list transmitted to return back to [facility] via [facility] per TCC request. [facility] 09-19-2023 Note Formatting of this n ote might be different from the original. Patient is able to discharge to [facility] today. . Number for report is [phone]. Attending aware. Did update primary care nurse and social staff worker. Did task LINER INSERTER to send discharge packet to [facility]. . [facility] 09-19-2023 Note Formatting of this n ote might be different from the original. Patient is able to discharge to [facility] today. . Number for report is [phone]. Attending aware. Did update primary care nurse and social staff worker. Did task LINER INSERTER to send discharge packet to [facility]. . [facility] 09-18-2023 Note Formatting of this n ote might be different from the original. Per Mckenzie at [facility] patient is able to return to facility tomorrow morning.Will update attending in the am. . [facility] 09-18-2023 Note Formatting of this n ote might be different from the original. Per Mckenzie at [facility] patient is able to return to facility tomorrow morning.Will update attending in the am. . [facility] 09-18-2023 Note Formatting of this n ote might be different from the original. Sent updated notes including MAR to return back to [facility] via [facility] per TCC request. Await review and response regarding ability to accept. TCC notified. [facility] 09-18-2023 Note Formatting of this n ote might be different from the original. Sent updated notes including MAR to return back to [facility] via [facility] per TCC request. Await review and response regarding ability to accept. TCC notified. [facility] 09-18-2023 Note Formatting of this n ote might be different from the original. Tasked LINER INSERTER to send MAR to [facility]. Received call from Mckenzie at [facility] and they are agreeable to accepting patient back under skilled level of care tomorrow. She wants to verify that his Medicare is his primary payor, before [facility] updates attending of this. Anticipate patient to return to [facility] facility tomorrow. . [facility] 09-18-2023 Note Formatting of this n ote might be different from the original. Tasked LINER INSERTER to send MAR to [facility]. Received call from Mckenzie at [facility] and they are agreeable to accepting patient back under skilled level of care tomorrow. She wants to verify that his Medicare is his primary payor, before [facility] updates attending of this. Anticipate patient to return to [facility] tomorrow. . [facility] 09-18-2023 Note Formatting of this n ote might be different from the original. Did call and update Mckenzie at [facility] that Covid PCR is still positive. She will speak with web administrator and call [facility] back with update regarding requirements for him to return to facility. . [facility] 09-18-2023 Note Formatting of this n ote might be different from the original. Did call and update Mckenzie at [facility] that Covid PCR is still positive. She will speak with web administrator and call TCC back with update regarding requirements for him to return to facility. . [facility] 09-18-2023 Note Formatting of this n ote is different from the original. Images from the original note were not included. Care Management Progress Note Covid PCR requested by [facility] was positive yesterday afternoon. Will call and speak with Mckenzie in admissions later this morning to discuss next steps regarding return to their facility. Pulse ox is 94% on room air. Remains on iv decadron and iv fluids. Discharge plan is return to [facility] when cleared by facility. . Discharge Milestones [...] Length of Stay (Days): 8 GMLOS: 5.1 [facility] 09-18-2023 Note Formatting of this n ote is different from the original. Images from the original note were not included. Care Management Progress Note Covid PCR requested by [facility] was positive yesterday afternoon. Will call [...] Length of Stay (Days): 8 GMLOS: 5.1 [employer] [facility] 09-17-2023 Note Formatting of this n ote might be different from the original. Spoke with Mckenzie at [facility]. Requesting covid PCR be completed today and one on day 10. If both are negative will be able to return on day 11. If not will have to wait/check again with her web administrator. Must be PCR and not antigens. Did update attending and primary care nurse of this. [employer] [facility] 09-17-2023 Note Formatting of this n ote might be different from the original. Spoke with Mckenzie at [facility]. Requesting covid PCR be completed today and one on day 10. If both are negative will be able to return on day 11. If not will have to wait/check again with her web administrator. Must be PCR and not antigens. Did update attending and primary care nurse of this. [facility] 09-17-2023 Note Formatting of this n ote might be different from the original. Did call and spoke with Mckenzie at [facility] to determine if patient is able to return once out of 10 days of isolation period and she is checking with her web administrator and will updated TCC with response... [facility] 09-17-2023 Note Formatting of this n ote might be different from the original. Did call and spoke with Mckenzie at [facility] to determine if patient is able to return once out of 10 days of isolation period and she is checking with her web administrator and will updated TCC with response... [facility] 09-17-2023 Note Formatting of this n ote is different from the original. Images from the original note were not included. Care Management Progress Note Remains on iv decadron and cont ivf. Did require iv apresoline x 1 last pm for elevated blood pressure. Blood pressures have been elevated. Remains off of oxygen. Will contact admissions at [facility] to determine if will require 2 [...] tests within 48 hours to return to [facility] due to hx of wandering." 09/15/2023 Mayra Lundberg RN 09/12/2023 8:44 AM iv decadron and remdesivir 09/13/2023 Kayleigh Stout, DO 09/11/2023 12:51 PM 09/13/2023 Kayleigh Stout DO 09/10/2023 8:04 PM 09/12/2023 Bernard Phillips MD 09/10/2023 2:03 PM Length of Stay (Days): 7 GMLOS: 5.1 .. [facility] 09-17-2023 Note Formatting of this n ote is different from the original. Images from the original note were not included. Care Management Progress Note Remains on iv decadron and cont ivf. Did require iv apresoline x 1 last pm for elevated blood pressure. Blood pressures have been elevated. Remains off of oxygen. Will contact admissions at [facility] to determine if will require 2 [...] tests within 48 hours to return to [facility] due to hx of wandering." 09/15/2023 Mayra Lundberg RN 09/12/2023 8:44 AM iv decadron and remdesivir 09/13/2023 Kayleigh Stout DO 09/11/2023 12:51 PM 09/13/2023 Kayleigh Stout, 09/10/2023 8:04 PM 09/12/2023 Bernard Phillips MD 09/10/2023 2:03 PM Length of Stay (Days): 7 GMLOS: 5.1 .. [facility] 09-14-2023 Note Formatting of this n [...] returning. Did update attending of this. . [facility] 09-14-2023 Note Formatting of this n [...] returning. Did update attending of this. . [facility] 09-12-2023 Hospital Discharg e instructions Yue Ludwig RN - 09/12/2023 12:13 PM EST Continuity of Care Form Patient Name: Tita Keith : 1935 Admit date: 09/10/2023 Discharge date: Code Status Order: DNR-CCA Advance Directives: N Admitting Physician: Kayleigh Stout DO PCP: Marj Plasencia Discharging Nurse: Discharging Hospital Unit/Room#: B4-259/B4453 A Discharging Unit Emergency Contact: Extended Emergency [...] assistance Toileting Total assistance Feeding Total assistance Programming Equipment Operator Total assistance Med Delivery no Wound Care [...] with Video (Video Swallowing Test): {done not done:37088} Treatments at the Time of Hospital Discharge: Respiratory Treatments: Oxygen Therapy: is not on home oxygen therapy. Ventilator: No ventilator support Rehab Therapies: {GEN THERAPY DISCIPLINE SCAL:9300216} Weight Bearing Status/Restrictions: {POD WEIGHT BEARIN} Other Medical Equipment (for information only, NOT a DME order): {Assistive Devices DME:16208} Other Treatments: Patient's personal belongings (please select all that are sent with patient): {RON Patient Belongings:98042} RN SIGNATURE: {E-signature:34171} CASE MANAGEMENT/SOCIAL WORK SECTION Inpatient Status Date: Readmission Risk Assessment Score: @READMISSIONRISKDETAILS@ Discharging to Facility/ Agency Name: [facility] Address:[address] [place] [address] Dialysis Facility (if applicable) Name: Address: Dialysis Schedule: Phone: Fax: [employer] 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 Update Admission H&P: No change in H&P PHYSICIAN SIGNATURE: documented in this encounter [facility] 09-12-2023 Note Formatting of this n ote might be different from the original. 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 Name/Contact Information: KAYLEIGH SCOTT [phone] DAUGHTER Cognition/Language: Confused at baseline Permission given to speak with patient statement services representative/caregiver as indicated: Yes Confirmation of Payer with patient/family: Yes Payer Name: [employer] [place]: Yes Confirmation of Primary Care Physician: Confirmed PCP Name: MARJ PLASENCIA Seen in last 2 years?: Yes Primary Caregiver: Other (Comment) If assistance needed, confirmed caregiver ready, willing and able to care for patient at discharge: Yes Confirmed with: STAFF AT [facility] Living Arrangements Current Residence: ([facility]) Number of Floors 1 Number of Entry Steps: (LEVEL ENTRY) Bed/Bath Levels: Both first floor Facility: [facility] Facility Name: [facility] Plan to Return: Lives with: Other (Comment) (FACILITY) Support Systems: Family members, Comments (Other) (FACILITY) Activities of Daily Living Ambulation: Assistance (WITH FWW) Bathing/Dressing: Assistance Elimination/Continence/Toileting: Assistance Feeding: Independent Who Assists with Activities of Daily Living: staff at [facility] Instrumental Activities of Daily Living Prescription Coverage: Yes Pharmacy Used: [facility] Medication Management: Medication dispenser Who assists with medication securing and setup?: staff at [facility] Transportation/Shopping: Assistance Provider Transportation/Shopping Assistance Provider Name: payor provided transport Transportation Mode: Payer provided transport service Needs Assistance with Transportation at Discharge: Yes Meal Preparation: Assistance Provider Meal Prep Assistance Provider Name: [facility] Laundry/Cleaning: Assistance Provider Laundry/Cleaning Assistance Provider Name: [facility] Finances/Bill Paying: Assistance Provider Finances/Bill Payer Assistance Provider Name: daughter Communication: Emergency Call System Types of Care Services/Equipment Utilized Care Services: Dialysis Type: NA Durable Medical Equipment: Walker, Glucometer Patient's Goal/Discharge Plan Patient expects to be discharged to: return to [facility] Discharge Planning Actions: Continue to follow Patient's Choice Rights and [employer] and Collaborative Relationships Disclosed as Indicated for Post-Acute Care: Interdisciplinary Team Engagement: PT/OT, Palliative Care Social Work Referral for: Additional Information: Inpatient status from [facility] with freddie. Receiving iv decadron and remdesivr. Did call and speak with daughter Kayleigh to complete case management initial assessment. Patient has been at facility since January. Was active with [facility] hospice services until last week, but had skin cancer that needed removed and due to billing, hospice services were revoked last week and plan to remain revoked until skin cancer is removed. Tentative date of removal is 09/25. Kayleigh would like patient to return to [facility] upon discharge. Spoke with Mckenzie [phone] international logistics coordinator at [facility], due to patient wandering at their facility and not staying in his room. They are unable to take him back until he has 2 negative rapid covid test within 48 hours of each other or until his appt on 09/25. Did call and speak with [facility] manager field investigations and will honor [facility] infection control policies. Patient's initial covid diagnosis was 09/10. Will continue to work with [facility] and attending for return back to their facility. Did provide Mckenzie with [facility]'s direct contact number.. Mayra Lundberg RN [facility] 09-12-2023 Note Formatting of this n ote might be different from the original. 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 Name/Contact Information: KAYLEIGH SCOTT [phone] DAUGHTER Cognition/Language: Confused at baseline Permission given to speak with patient statement services representative/caregiver as indicated: Yes Confirmation of Payer with patient/family: Yes Payer Name: [employer] [place]: Yes Confirmation of Primary Care Physician: Confirmed PCP Name: MARJ PLASENCIA Seen in last 2 years?: Yes Primary Caregiver: Other (Comment) If assistance needed, confirmed caregiver ready, willing and able to care for patient at discharge: Yes Confirmed with: STAFF AT [facility] Living Arrangements Current Residence: ([facility]) Number of Floors 1 Number of Entry Steps: (LEVEL ENTRY) Bed/Bath Levels: Both first floor Facility: [facility] Facility Name: [facility] Plan to Return: Lives with: Other (Comment) (FACILITY) Support Systems: Family members, Comments (Other) (FACILITY) Activities of Daily Living Ambulation: Assistance (WITH FWW) Bathing/Dressing: Assistance Elimination/Continence/Toileting: Assistance Feeding: Independent Who Assists with Activities of Daily Living: staff at [facility] Instrumental Activities of Daily Living Prescription Coverage: Yes Pharmacy Used: [facility] Medication Management: Medication dispenser Who assists with medication securing and setup?: staff at [facility] Transportation/Shopping: Assistance Provider Transportation/Shopping Assistance Provider Name: payor provided transport Transportation Mode: Payer provided transport service Needs Assistance with Transportation at Discharge: Yes Meal Preparation: Assistance Provider Meal Prep Assistance Provider Name: [facility] Laundry/Cleaning: Assistance Provider Laundry/Cleaning Assistance Provider Name: [facility] Finances/Bill Paying: Assistance Provider Finances/Bill Payer Assistance Provider Name: daughter Communication: Emergency Call System Types of Care Services/Equipment Utilized Care Services: Dialysis Type: NA Durable Medical Equipment: Walker, Glucometer Patient's Goal/Discharge Plan Patient expects to be discharged to: return to [facility] Discharge Planning Actions: Continue to follow Patient's Choice Rights and [employer] and Collaborative Relationships Disclosed as Indicated for Post-Acute Care: Interdisciplinary Team Engagement: PT/OT, Palliative Care Social Work Referral for: Additional Information: Inpatient status from [facility] with covid. Receiving iv decadron and remdesivr. Did call and speak with ben Martell to complete case management initial assessment. Patient has been at facility since January. Was active with [facility] hospice services until last week, but had skin cancer that needed removed and due to billing, hospice services were revoked last week and plan to remain revoked until skin cancer is removed. Tentative date of removal is 09/25. Kayleigh would like patient to return to [facility] upon discharge. Spoke with Mckenzie [phone] international logistics coordinator at [facility], due to patient wandering at their facility and not staying in his room. They are unable to take him back until he has 2 negative rapid covid test within 48 hours of each other or until his appt on 09/25. Did call and speak with [facility] manager field investigations and will honor [facility] infection control policies. Patient's initial covid diagnosis was 09/10. Will continue to work with [facility] and attending for return back to their facility. Danica provide Mckenzie with [facility]'s direct contact number.. Mayra Lundberg RN [facility] 09-12-2023 Note Formatting of this n ote might be different from the original. Admitted from [facility] home with covid. Admitted to medical. Iv remdesivir and decadron, supplemental oxygen. Per documentation is 93% on ra. 12 bc positive. Anticipate contaminate. Palliative care following. [facility] Will need to determine if will be returning under skilled services or under hospice care. Will contact daughter to complete case management initial assessment and also speak with admissions at [facility] and continue to follow with palliative care.. [facility] 09-12-2023 Note Formatting of this n ote might be different from the original. Admitted from [facility] home with covid. Admitted to medical. Iv remdesivir and decadron, supplemental oxygen. Per documentation is 93% on ra. 10/23 bc positive. Anticipate contaminate. Palliative care following. Tentative discharge [facility] medically [facility]. Will need to determine if will be returning under skilled services or under hospice care. Will contact daughter to complete case management initial assessment and also speak with admissions at [facility] and continue to follow with palliative care.. [employer] 09-11-2023 Note Formatting of this n ote might be different from the original. Called and left message for daughter to assist with completing case management initial assessment. . [employer] 09-11-2023 Note Formatting of this n ote might be different from the original. Called and left message for daughter to assist with completing case management initial assessment. . [employer] 09-11-2023 Note Formatting of this n ote might be different from the original. Referral placed to return back to [facility] via [facility] per [facility] request. Await review and response regarding ability to accept. [facility] notified. [facility] 09-11-2023 Note Formatting of this n ote might be different from the original. Referral placed to return back to [facility] via [facility] per [facility] request. Await review and response regarding ability to accept. [facility] notified. [facility] 09-11-2023 Consult note Associated Order (s): IP CONSULT TO INFECTIOUS DISEASES Images from the original note were not included. [facility] - Infectious Diseases Attending [...] Units 5 Units SubCUTAneous Nightly Radha L Kallie, BLEACHER OPERATOR - ELECTRONIC SCIENCE TEACHER LORazepam (Ativan) tablet 0.25 mg 0.25 mg Oral q4h PRN Radha L Kallie, BLEACHER OPERATOR - ELECTRONIC SCIENCE TEACHER Melatonin disintegrating tablet 5 mg 5 mg Oral Nightly PRN Kayleigh M Esterle, DO mirtazapine (Remeron) tablet 15 mg 15 mg Oral Nightly Kayleigh M Esterle, DO morphine 10 MG/0.5ML concentrated solution 5 mg 5 mg Oral q2h PRN Radha L Kallie, BLEACHER OPERATOR - ELECTRONIC SCIENCE TEACHER naloxone (Narcan) injection 0.4 mg 0.4 mg IntraVENous PRN Radha L Kallie, BLEACHER OPERATOR - ELECTRONIC SCIENCE TEACHER ondansetron ODT (Zofran-ODT) disintegrating tablet 4 mg [...] 0.9 % infusion 5-250 mL/hr IntraVENous PRN Kaylegih M Esterle, DO sodium chloride 0.9 % [...] Blood culture Site #1 - Suspected Infection [[id number]] Blood, Venous In process Component Value No component results 09/11/2023 1013 09/11/2023 1019 Blood culture Site #2 - Suspected Infection [[id number]] Blood, Venous In process Component Value No component results 09/11/2023 0635 09/11/2023 1302 Respiratory culture and Stain [[id number]] (Abnormal) Sputum Preliminary result Component Value Respiratory [...] 1318 SARS-CoV-2, Flu A/B, and RSV Combo [[id number]] (Abnormal) Swab from Nasopharynx Final result Component Value SARS-CoV-2 Detected Abnormal Respiratory Syncytial Virus Not Detected Influenza A Not Detected Influenza B Not Detected Lines: PIV site ok Radiography/Echo/Other: XR chest 1 view [[id number]] Collected: 09/10/23 1228 Order Status: Completed Updated: 09/10/23 1230 Narrative: [facility] 1935 [id number] Exam Date/Time: 09/10/2023 12:21 Procedure: XR CHEST [...] time stamp for accounting for open encounter. [facility] 09-11-2023 Consult note Associated Order (s): IP CONSULT TO INFECTIOUS DISEASES Images from the original note were not included. [facility] - Infectious Diseases Attending [...] Units 5 Units SubCUTAneous Nightly Radha L Kallie, BLEACHER OPERATOR - ELECTRONIC SCIENCE TEACHER LORazepam (Ativan) tablet 0.25 mg 0.25 mg Oral q4h PRN Radha L Hoiles, BLEACHER OPERATOR - ELECTRONIC SCIENCE TEACHER Melatonin disintegrating tablet 5 mg 5 mg Oral Nightly PRN Kayleigh M Esterle, DO mirtazapine (Remeron) tablet 15 mg 15 mg Oral Nightly Kayleigh M Esterle, DO morphine 10 MG/0.5ML concentrated solution 5 mg 5 mg Oral q2h PRN Radha L Hoiles, BLEACHER OPERATOR - ELECTRONIC SCIENCE TEACHER naloxone (Narcan) injection 0.4 mg 0.4 mg IntraVENous PRN Radha L Hoiles, BLEACHER OPERATOR - ELECTRONIC SCIENCE TEACHER ondansetron ODT (Zofran-ODT) disintegrating tablet 4 mg [...] Blood culture Site #1 - Suspected Infection [[id number]] Blood, Venous In process Component Value No component results 09/11/2023 1013 09/11/2023 1019 Blood culture Site #2 - Suspected Infection [[id number]] Blood, Venous In process Component Value No component results 09/11/2023 0635 09/11/2023 1302 Respiratory culture and Stain [[id number]] (Abnormal) Sputum Preliminary result Component Value Respiratory [...] 1318 SARS-CoV-2, Flu A/B, and RSV Combo [[id number]] (Abnormal) Swab from Nasopharynx Final result Component Value SARS-CoV-2 Detected Abnormal Respiratory Syncytial Virus Not Detected Influenza A Not Detected Influenza B Not Detected Lines: PIV site ok Radiography/Echo/Other: XR chest 1 view [[id number]] Collected: 09/10/23 1228 Order Status: Completed Updated: 09/10/23 1230 Narrative: [facility] 1935 [id number] Exam Date/Time: 09/10/2023 12:21 Procedure: XR CHEST [...] 09/10/23 - droplet isolation - resides in [facility]--they are aware of covid status, his roommate has continued to test negative for covid as has all residents and staff - per primary: dexamethasone, remdesivir 11/26, - HFNC-->N/C 4L---> RA was 90%, replaced on 4L - was on morphine concentrate at facility will order prn, 5mg q2h and monitor needs for pain or air hunger Dementia - resides at [facility] - with behaviors as per primary [...] hungry Palliative Care Encounter -full code--changed to [id number] icu transfer, if decompensates and needs hospice here will do that - call to dtr Akyleigh at [phone], introduced myself and service, why consulted provided medical updates, and plans. 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 - will continue to [...] primary attending or other consultants, Electronic order checker packer processer of medications, tests or procedures, and Counseling [...] is a 87 y.o. male residing at [facility] for 24 hour care and supervision [...] hungry Off hospice for squamous cell carcinoma[facility] Pain Assessment (If Pain Scale [...] other systems were reviewed and are negative. [place] Symptom Assessment Score [place] Score Pain Score 0 Tiredness Score 0 Nausea Score 0 Depression Score 0 Anxiety Score 0 Drowsiness Score 0 Anorexia Score (0= eating well, 10= not eating) 5 Wellbeing Score (10= worst sense of well-being) 0 Constipation 0 Dyspnea Score (0= no shortness of breath) 4 FLACC Scale (For Pain Assessment of the Non-Verbal Patient) Patient is verbal Assessed by: provider. 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 documented in this encounter [facility] 09-11-2023 Emergency department Note Patient up in bed at this time, speaking with this RN. Patient VS updated, patient being afebrile at this time and 92% on RA. Call light within reach. Nick Branham RN 09/11/23 1153 [facility] 09-11-2023 Emergency department Note Patient up in bed at this time, speaking with this RN. Patient VS updated, patient being afebrile at this time and 92% on RA. Call light within reach. Nick Branham RN 09/11/[address] Stout notified that pt has not been alert enough to take PO medications. Per Dr Stout, ok to hold PO medications as well as lantus because pt is not eating meals. Molly Garcia RN 09/10/232043 Dr Stout contacted and asked for admission orders. States they will be put in shortly. Molly Garcia RN 09/10/231958 [facility] to fax over DNR Perla Sousa RN 09/10/231137 RT and Dr Jm mckinley. Pt to [...] more somnolent. Discussed with patient's power of energy attorney and daughter who noted that she [...] In compliance with this authorization, please visit www.fda.gov/media/041422/download or www.fda.gov/media/026467/download to access the applicable information sheets. CBC [...] Phillips MD (electronically signed) Emergency Medicine Provider [facility] Bernard Phillips MD 09/10/23 1436 Pt arrived [...] RN 09/10/23 1122 documented in this encounter [facility] 09-11-2023 History and physical note Department [...] more somnolent. Discussed with patient's power of energy attorney and daughter who noted that she [...] decadron KAYLEIGH STOUT DO 09/11/23 9:04 AM [facility] 09-11-2023 History and physical note Department [...] more somnolent. Discussed with patient's power of energy attorney and daughter who noted that she [...] 09/11/23 9:04 AM documented in this encounter [facility] 09-11-2023 Consult note Associated Order (s): IP CONSULT TO PALLIATIVE CARE Images from the original note were not included. Palliative Care Initial Consult Chief Complaint: Tita Keith is a 87 y.o. male with chief complaint of increased work of breathing. Palliative Care is actively following. Assessment/Plan Covid - dx 09/10/23 - droplet isolation - resides in [facility]--they are aware of covid status, his roommate has continued to test negative for covid as has all residents and staff - per primary: dexamethasone, remdesivir 2/5, - HFNC-->N/C 4L---> RA was 90%, replaced on 4L - was on morphine concentrate at facility will order prn, 5mg q2h and monitor needs for pain or air hunger Dementia - resides at [facility] - with behaviors as per primary [...] hungry Palliative Care Encounter -full code--changed to [id number] icu transfer, if decompensates and needs hospice here will do that - call to dtr Kayleigh at [phone], introduced myself and service, why consulted provided medical updates, and plans. 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 - will continue to [...] primary attending or other consultants, Electronic order checker packer processer of medications, tests or procedures, and Counseling [...] is a 87 y.o. male residing at [facility] for 24 hour care and supervision [...] hungry Off hospice for squamous cell carcinoma. [facility] Pain Assessment (If Pain Scale [...] other systems were reviewed and are negative. [place] Symptom Assessment Score [place] Score Pain Score 0 Tiredness Score 0 Nausea Score 0 Depression Score 0 Anxiety Score 0 Drowsiness Score 0 Anorexia Score (0= eating well, 10= not eating) 5 Wellbeing Score (10= worst sense of well-being) 0 Constipation 0 Dyspnea Score (0= no shortness of breath) 4 FLACC Scale (For Pain Assessment of the Non-Verbal Patient) Patient is verbal Assessed by: provider. 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 TBD Transition Note Initiated: yes. [facility] 09-10-[address] Stout notified that pt has not been alert enough to take PO medications. Per Dr Stout, ok to hold PO medications as well as lantus because pt is not eating meals. Molly Garcia RN 09/10/232043 [facility] 09-10-[address] Stout contacted and asked for admission orders. States they will be put in shortly. Molly Garcia RN 09/10/231958 [facility] 09-10-2023 [facility] Perla Sousa RN 09/10/23 1138 [facility] 09-10-2023 Emergency department Note RT and Dr Jm mckinley. Pt to be transitioned to high flow [place] Molly Garcia RN 09/10/23 1138 [facility] 09-10-2023 Emergency department Note Bed: 08 Expected date: Expected time: Means of arrival: Comments: Nathaniel Garcia RN 09/10/23 1122 [facility] 09-10-2023 Emergency department Triage note Pt [...] call facility to have it faxed over [facility] 09-10-2023 Physician Emergency department Note EMERGENCY [...] more somnolent. Discussed with patient's power of energy attorney and daughter who noted that she [...] In compliance with this authorization, please visit www.fda.gov/media/832886/download or www.fda.gov/media/749393/download to access the applicable information sheets. CBC [...] MD (electronically signed) Emergency Medicine Provider Acute [facility] Bernard Phillips MD 09/10/23 1436 [facility] [employer] 01-26-2023 History of Presen t illness Narrative Speech-Language Pathology Facility/Department: [address] DYSPHAGIA TREATMENT NAME: Tita Keith : 1935 ADMISSION DATE: 01/17/2023 ADMITTING DIAGNOSIS: has New onset type 2 diabetes mellitus (CMS/HCC) (FORMERLY [facility]); Hyperosmolar hyperglycemic state (HHS) (HCC); Hyperglycemia; and Severe malnutrition (CMS/HCC) (FORMERLY [facility]) on their problem list. No Known Allergies [...] up and pulling self forward. Assisted by SETTER AUTOMATIC SPINNING LATHE to push bottom back in chair from [...] P: Continue dysphagia POC. Treatment Plan Requires SETTER AUTOMATIC SPINNING LATHE Intervention: Yes Frequency/Duration: Frequency of Treatment: 3 days/wk for Duration of Treatment: 2 weeks Therapy Time SETTER AUTOMATIC SPINNING LATHE Individual Minutes Time In: 1003 Time Out: 1022 Minutes: 19 BRITTNY Mattson 01/26/2023 12:36 PM Report given to Lauren at [facility]. Occupational Therapy Facility/Department: [facility] Occupational Therapy Treatment NAME: Tita Keith : 1935 Date of Service: 01/26/2023 Discharge Recommendations: Subacute/Intermediate Facility Assessment Performance deficits / Impairments: Decreased [...] with ~5 mins of breakfast before nursing officer was addressed to finish assisting if needed. [...] recliner post session to eat breakfast, Nurse kindergarten assistant aware and stating she will asssit with [...] No significant fluid accumulation Chronic Illness - Fuel Tank Sealer And Tester Strength: Not Performed Chronic Illness - Malnutrition Score: 21 Malnutrition Status: Severe malnutrition Medical Nutrition Therapy: Adult diet Dysphagia - Minced and Moist; No Drinking Straws with Pureed meats and Ensure Plus TID Speech-Language Pathology Facility/Department: [address] DYSPHAGIA TREATMENT NAME: Tita Keith : 1935 ADMISSION DATE: 01/17/2023 ADMITTING DIAGNOSIS: has New onset type 2 diabetes mellitus (CMS/HCC) ([facility]); Hyperosmolar hyperglycemic state (HHS) ([facility]ER[facility]); Hyperglycemia; and Severe malnutrition (CMS/HCC) ([facility]) on their problem list. No Known Allergies [...] pain S: Alert and reclined in bed. SETTER AUTOMATIC SPINNING LATHE attempted to reposition pt upright for the [...] unable to squeeze towel resistance independently, required SETTER AUTOMATIC SPINNING LATHE to hold towel and break was provided [...] potential upgrade as tolerated. Treatment Plan Requires SETTER AUTOMATIC SPINNING LATHE Intervention: Yes Frequency/Duration: Frequency of Treatment: 3 days/wk for Duration of Treatment: 2 weeks Therapy Time SETTER AUTOMATIC SPINNING LATHE Individual Minutes Time In: 0950 Time Out: [...] DO 01/25/23 7:27 PM Speech-Language Pathology Facility/Department: [address] DYSPHAGIA TREATMENT NAME: Tita Keith : 1935 ADMISSION DATE: 01/17/2023 ADMITTING DIAGNOSIS: has New onset type 2 diabetes mellitus (CMS/HCC) (HCC); Hyperosmolar hyperglycemic state (HHS) (FORMER[facility]); Hyperglycemia; and Severe malnutrition (CMS/HCC) ([facility]) on their problem list. No Known Allergies [...] treatment Therapeutic Interventions: Therapeutic PO trials with SETTER AUTOMATIC SPINNING LATHE Compensatory Swallowing Strategies Compensatory Swallowing Strategies : [...] Response: Needs reinforcement P: Treatment Plan Requires SETTER AUTOMATIC SPINNING LATHE Intervention: Yes Frequency/Duration: Frequency of Treatment: 3 days/wk for Duration of Treatment: 2 weeks Therapy Time SETTER AUTOMATIC SPINNING LATHE Individual Minutes Time In: 1341 Time Out: [...] DO 01/24/23 8:43 PM Physical Therapy Facility/Department: [facility] Physical Therapy Daily Treatment Note NAME: Tita Keith : 1935 Date of Service: 01/23/2023 Discharge Recommendations: Subacute/Intermediate Facility PT Equipment Recommendations Equipment Needed: (TBD [...] Inpatient Mobility Raw Score: 10 Mobility Inpatient [facility] G-Code Modifier: CL Goals Encounter Problems Encounter [...] (gait) Juliette Aguillon PTA Occupational Therapy Facility/Department: [facility] Occupational Therapy Treatment NAME: Tita Keith : 1935 Date of Service: 01/23/2023 Discharge Recommendations: Subacute/Intermediate Facility Assessment Performance deficits / Impairments: Decreased [...] Code Treatment Minutes: 23 Minutes (2 ADL) KORI Christianson/Peggy Speech-Language Pathology Facility/Department: [address] DYSPHAGIA TREATMENT NAME: Tita Keith : 1935 ADMISSION DATE: 01/17/2023 ADMITTING DIAGNOSIS: has New onset type 2 diabetes mellitus (CMS/HCC) ([facility]); Hyperosmolar hyperglycemic state (HHS) ([facility]); Hyperglycemia; and Severe malnutrition (CMS/HCC) ([facility]) on their problem list. No Known Allergies [...] treatment Therapeutic Interventions: Therapeutic PO trials with SETTER AUTOMATIC SPINNING LATHE Compensatory Swallowing Strategies Compensatory Swallowing Strategies : [...] to assist with clearing. Treatment Plan Requires SETTER AUTOMATIC SPINNING LATHE Intervention: Yes Frequency/Duration: Frequency of Treatment: 3 days/wk for Duration of Treatment: 2 weeks Therapy Time SETTER AUTOMATIC SPINNING LATHE Individual Minutes Time In: 08 Time Out: 0845 Minutes: 20 BRITTNY Mattson [...] lovenox # Anticipated Discharge - Date - 10-23 d - Location - Skilled Facility - Pending the following - auth KAYLEIGH STOUT DO 01/23/23 8:03 PM Speech-Language Pathology This SETTER AUTOMATIC SPINNING LATHE was able to reach pt's daughter to discuss MBS. She verbalized understanding of aspiration risk (food getting into airway). She was ok with current diet, assistance with eating and changing his meats to puree. He is not able to chew even the ground/chopped meats. Recommend continue po with assist and strategies as previously stated in MBS note. Kirsty Ray MA, [facility]/SETTER AUTOMATIC SPINNING LATHE Speech Language Pathologist Department of Family Medicine [...] DO 01/22/23 9:54 PM Occupational Therapy Facility/Department: [address] Occupational Therapy Treatment NAME: Tita Keith : 1935 Date of Service: 01/21/2023 Discharge Recommendations: Subacute/ [facility] facility Assessment Performance deficits / Impairments: Decreased [...] lovenox # Anticipated Discharge - Date - 10-23 d - Location - Skilled Facility - Pending the following - auth KAYLEIGH STOUT DO 01/21/23 7:58 PM Physical Therapy Facility/Department: [facility] Physical Therapy Daily Treatment Note NAME: Tita Keith : 1935 Date of Service: 01/21/2023 Discharge Recommendations: Subacute/Intermediate Facility PT Equipment Recommendations Equipment Needed: (TBD [...] Inpatient Mobility Raw Score: 10 Mobility Inpatient [facility] G-Code Modifier: CL Goals Encounter Problems Encounter [...] Aguillon PTA This nurse was informed by director nursing service that patient BG this morning was 52. [...] and moist no straw dysphagia diet per SETTER AUTOMATIC SPINNING LATHE -for MBS 4/3 per MNT protocol ,will initiate chocolate Ensure [...] (quadraceps) Fluid Accumulation: No significant fluid accumulation Fuel Tank Sealer And Tester Strength: Not Performed Nutrition Assessment: per md-CHIEF COMPLAINT: generalized weakness Reason for Admission: hyperglycemia History Obtained From: patient History of Present Illness Tita Keith is a 87 y.o. male who presents to the emergency department with chief complaint of generalized weakness. He has a history of dementia, but is baseline oriented to what only. He comes from [facility] facility. Reportedly at his facility the last [...] questions answered.Principal Problem: Hyperosmolar hyperglycemic state (HHS) (FORMERLY [facility]) Active Problems: Hyperglycemia DM 2 with hyperglycemia Dysphagia HTN HPL Plan MBS on Sunday Plan is for snf placementTO HAVE MBS Estimated Daily Nutrient Needs: Energy Requirements Based On: Kcal/kg Weight Used for Energy Requirements: [place] Weight for Energy Calculation (kg): 86 kg Total Energy Requirements (kcals/day): 22-25 or [id number] Weight Used for Protein Requirements: [place] Weight in Kg Used for Protein Requirements: [...] lb 14.3 oz) Weight Source: Bed Scale [place] Body Weight (lbs) (Calculated): 190 lbs [place] Body Weight (Kg) (Calculated): 86 kg % [place] Body Weight (Calculated): 58.4 % BMI (kg/m2) [...] Oral Nutrition Supplement Mayra Man RD Contact: *[phone] or secure chat Department of Family Medicine [...] 3:16 PM Speech-Language Pathology Facility/Department: [facility] [id number] DYSPHAGIA TREATMENT NAME: Tita Keith : 1935 ADMISSION DATE: 01/17/2023 ADMITTING DIAGNOSIS: has New onset type 2 diabetes mellitus (CMS/HCC) (FORMER[facility]); Hyperosmolar hyperglycemic state (HHS) ([facility]ER[facility]); and Hyperglycemia on their problem list. No [...] Diet tolerance monitoring, Therapeutic PO trials with SETTER AUTOMATIC SPINNING LATHE, Patient/Family education Compensatory Swallowing Strategies Compensatory Swallowing [...] of the swallow/determine LRD. Treatment Plan Requires SETTER AUTOMATIC SPINNING LATHE Intervention: Yes Frequency/Duration: Frequency of Treatment: 3 days/wk for Duration of Treatment: 2 weeks Therapy Time SETTER AUTOMATIC SPINNING LATHE Individual Minutes Time In: 1240 Time Out: 1300 Minutes: 20 RENE Astorga 01/19/2023 1:01 PM Physical Therapy Facility/Department: [address] Physical Therapy Daily Treatment Note NAME: Tita Keith : 1935 Date of Service: 01/19/2023 Discharge Recommendations: Subacute/Intermediate Facility PT Equipment Recommendations Equipment Needed: (TBD [...] Inpatient Mobility Raw Score: 8 Mobility Inpatient [facility] G-Code Modifier: CM Goals Encounter Problems Encounter [...] Minutes: 25 Minutes (theract x 2) Kerline Bhat, PT Per Dr. Stout, okay to leave tele off and IV out as pt keeps pulling IV out and tele off. Okay to stop continuous fluids. Occupational Therapy Facility/Department: Occupational Therapy Treatment NAME: Tita Keith : 1935 Date of Service: 01/19/2023 Discharge Recommendations: Subacute/Intermediate Facility Assessment Performance deficits / Impairments: Decreased [...] encounter diagnosis was Hyperosmolar hyperglycemic state (HHS) (FORMERLY [facility]). has a past medical history of Dementia [...] cachexia & uncontrolled DM. Physical Therapy Facility/Department: [address] Physical Therapy Initial Evaluation NAME: Tita Keith : 1935 Date of Service: 01/18/2023 Discharge Recommendations: Subacute/Intermediate Facility PT Equipment Recommendations Equipment Needed: (TBD [...] device?: Yes Transfer Assistance: Needs assistance Active Chairman & Chief Executive Officer: No Occupation: Retired Objective Observation/Palpation Posture: [...] No LOB, step to pattern, shuffling, slow diaen, instability throughout all phases Quality of Gait [...] Inpatient Mobility Raw Score: 8 Mobility Inpatient [facility] G-Code Modifier: CM Goals Encounter Problems Encounter [...] is medically necessary and appropriate. Discharge Recommendations: Subacute/Intermediate Facility OT Equipment Recommendations Equipment Needed: No Assessment Performance deficits / Impairments: Decreased functional mobility , Decreased endurance, Decreased ADL status, Decreased strength, Decreased balance, Decreased safe awareness, Decreased cognition Assessment: Pt admitted to ED on 01/17 with high blood sugars (>500). 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 At baseline, pt is A&O x1. Per his daughter, pt was at [facility] and was ambulating independently but requiring some [...] encounter diagnosis was Hyperosmolar hyperglycemic state (HHS) (FORMERLY [facility]). has a past medical history of Dementia [...] device?: Yes Transfer Assistance: Needs assistance Active Chairman & Chief Executive Officer: No Occupation: Retired Objective Gross Assessment: [...] Daily Activity Raw Score: 9 ADL Inpatient [facility] G-Code Modifier: CL Goals Encounter Problems Encounter [...] for cosign: Speech-Language Pathology Facility/Department: [facility] ED CLINICAL BEDSIDE SWALLOW EVALUATION NAME: Tita Keith : 1935 ADMISSION DATE: 01/17/2023 ADMITTING DIAGNOSIS: has New onset type 2 diabetes mellitus (CMS/HCC) (FORMERLY [facility]) and Hyperosmolar hyperglycemic state (HHS) (FORMERLY [facility]) on their problem list. Recent Chest Xray/CT [...] Ordered 01/17/232353 NPO diet Diet effective now 01/17/232352 Primary Complaint Patient Complaint: Pt had coughing with drinks of water and while taking medications since in [facility]. Pain: Pain Assessment Pain Assessment: No/denies pain Pain Score: 0 - No pain Reason for Referral ED Note: 87 y.o. male who presents to the emergency department with chief complaint of generalized weakness. He has a history of dementia, but is baseline oriented to what only. He comes from [facility]. Reportedly at his facility the last [...] and single drinks. Throat clear and reswallow. SETTER AUTOMATIC SPINNING LATHE will assess need for further testing. (daughter indicated periods of spitting up food at times). Treatment Plan Requires SETTER AUTOMATIC SPINNING LATHE Intervention: Yes Frequency/Duration: 3 days/wk for 2 weeks Recommended Diet and Intervention Diet Solids Recommendation: Dysphagia Minced and Moist (Dysphagia II) Liquid Consistency Recommendation: Thin Recommended Form of Meds: Crushed in puree as able Recommendations: Dysphagia treatment Therapeutic Interventions: Diet tolerance monitoring, Patient/Family education, Therapeutic PO trials with SETTER AUTOMATIC SPINNING LATHE Compensatory Swallowing Strategies Compensatory Swallowing Strategies : [...] water and while taking medications since in [facility]. Consistencies Administered: Reg solid, Dysphagia Soft and [...] foods decreased overt pharyngeal deficits. Therapy Time SETTER AUTOMATIC SPINNING LATHE Individual Minutes Time In: 0956 Time Out: [...] in correct syringe. documented in this encounter [facility] 01-26-2023 Note Formatting of this n ote might be different from the original. Patient has active discharge order in place. Patient to discharge to [facility] today. Electrical Development Engineer set up transport for 11 am. Daughter Kayleigh notified. ONLINE MERCHANDISING SPECIALIST to send pasrr through [facility]. [facility] 01-26-2023 Note Formatting of this n ote might be different from the original. Patient has active discharge order in place. Patient to discharge to [facility] today. Electrical Development Engineer set up transport for 11 am. Daughter Kayleigh notified. ONLINE MERCHANDISING SPECIALIST to send pasrr through [facility]. [facility] 01-25-2023 Plan of care note The patient [...] Progressing Goal: Promote nutritional intake Outcome: Progressing [facility] 01-25-2023 Note Formatting of this n ote might be different from the original. Notified by The [facility] that they are not willing to accept patient back at this time, ben Martell notified. I faxed over confidential line the therapy notes that was used for the insurance to deny SNF level of care to the [place]. Talked to ben Martell and stated I will request for therapy to re-evaluate on 01/26 and I will fax an appeal to [facility] [phone], reference number [id number] and will wait up to 72 hours for the appeal process do be either approved or denied. [facility] states they have a LTC bed available if the family is interested. The family will discuss possible move from the AL and call me tomorrow with decision. Dr Stout updated. Transport discontinued and discharge held. [facility] 01-25-2023 Note Formatting of this n ote might be different from the original. Notified by The [facility] that they are not willing to accept patient back at this time, ben Martell notified. I faxed over confidential line the therapy notes that was used for the insurance to deny SNF level of care to the [place]. Talked to ben Martell and stated I will request for therapy to re-evaluate on 01/26 and I will fax an appeal to Lauren [phone], reference number [id number] and will wait up to 72 hours for the appeal process do be either approved or denied. [facility] states they have a LTC bed available if the family is interested. The family will discuss possible move from the AL and call me tomorrow with decision. Dr Stout updated. Transport discontinued and discharge held. [facility] 01-25-2023 Nurse Note Pt is heavy 2 assistance to chair. Inconsistent with prior PT notes. PT to re-evaluate tomorrow 01/26. [facility] 01-25-2023 Nurse Note Pt is heavy 2 assistance to chair. Inconsistent with prior PT notes. PT to re-evaluate tomorrow 01/26. documented in this encounter [facility] 01-25-2023 Note Formatting of this n ote might be different from the original. S/W, follow up TCC indicated patient needs transport to [facility]. Transport set via [facility] at 3p. Staff aware Patient placed on cot due to Dementia, Aox1-2, Cot for Safety. Family aware. Transport has been cancelled as AL not accepting patient back. [facility] 01-25-2023 Note Formatting of this n ote might be different from the original. S/W, follow up TCC indicated patient needs transport to [facility]. Transport set via [facility] at 3p. Staff aware Patient placed on cot due to Dementia, Aox1-2, Cot for Safety. Family aware. Transport has been cancelled as AL not accepting patient back. [facility] 01-25-2023 Plan of care note Problem: Knowledge [...] is maintained or improved Outcome: Not Progressing [facility] 01-25-2023 Note Formatting of this n ote might be different from the original. [facility] notified me that Lauren is requesting a P2P today by noon. The phone number provided is option 4. Dr Stout notified via confidential message. [facility] states they got the call yesterday, but left message with the weekend TCC. Dr Stout notified me that she is in the office today seeing patients and is unable to complete the P2P. Call placed to Kayleigh Scott, ben and explained that patient will return today to [facility] with HHC. Updated [facility] to assist with setting up HHC at the facility. Kayleigh states she would like a ambulance transport to be set up. I explained that patient could be charged some out of pocket costs for the transport and she is verbalizes understanding and is agreeable with us setting up transport to the AL. [facility] 01-25-2023 Note Formatting of this n ote might be different from the original. [facility] notified me that Lauren is requesting a P2P today by noon. The phone number provided is option 4. Dr Stout notified via confidential message. [facility] states they got the call yesterday, but left message with the weekend TCC. Dr Stout notified me that she is in the office today seeing patients and is unable to complete the P2P. Call placed to Kayleigh Scott, ben and explained that patient will return today to [facility] with C. Updated [facility] to assist with setting up HHC at the facility. Kayleigh states she would like a ambulance transport to be set up. I explained that patient could be charged some out of pocket costs for the transport and she is verbalizes understanding and is agreeable with us setting up transport to the AL. [facility] 01-25-2023 Plan of care note The patient [...] Progressing Goal: Promote nutritional intake Outcome: Progressing [facility] 01-24-2023 Plan of care note The patient [...] by Edis Palomino RN Outcome: Not Progressing 01/24/2023 175 by Edis Palomino RN Outcome: Progressing Goal: Dietary Supplements 01/24/2023 175 by Edis Palomino RN Outcome: Not Progressing 01/24/2023 175 by Edis Palomino RN Outcome: Progressing Goal: Promote nutritional intake 01/24/2023 175 by Edis Palomino RN Outcome: Not Progressing 01/24/2023 175 by Edis Palomino RN Outcome: Progressing T [facility] 01-24-2023 Note Formatting of this n ote might be different from the original. Sent updated notes (PT/OT/Md) to [facility] via [facility] per TCC request. Await review and response regarding ability to accept. TCC notified. [facility] 01-24-2023 Note Formatting of this n ote might be different from the original. Sent updated notes (PT/OT/Md) to [facility] via [facility] per TCC request. Await review and response regarding ability to accept. TCC notified. [facility] 01-24-2023 Note Formatting of this n ote might be different from the original. Patient Choice Patient Name: TITA KEITH Date of : 1935 All Providers Sent Referral Name: [facility], [facility]. Address: [address] [place] [address] Name: [facility] Address: [address] [place], [place] [id number] Name: [facility] Phone: [phone] Address: [address] [id number] T [facility] 01-24-2023 Note Formatting of this n ote might be different from the original. Patient Choice Patient Name: TITA KEITH Date of : 1935 All Providers Sent [facility] Address: [address] [place] [address] Name: [facility] Address: [address] [place], [place] [id number] Name: [facility] Phone: [phone] Address: [address] [place] [address] [facility] 01-24-2023 Note Formatting of this n ote is different from the original. Images from the original note were not included. Care Management Progress Note Patient medically stable for discharge today with active discharge in place since Monday 01/22. Medication management per medical team. Chronic silverio in place. Therapy seen on 01/23. [facility] requesting updated therapy notes. Request for LINER INSERTER to send via [employer] today. Auth has been pending since 01/19 through [employer]. [facility] to receive approval today. Discharge Milestones and Delays Expected Date/Time: 01/23/2023 Midday Disposition: Intermediate Facility Transport status: No current request Discharge [...] (Days): 0 GMLOS: No GMLOS Documented T [facility] 01-24-2023 Note Formatting of this n ote is different from the original. Images from the original note were not included. Care Management Progress Note Patient medically stable for discharge today with active discharge in place since Monday 01/22. Medication management per medical team. Chronic silverio in place. Therapy seen on 01/23. [facility] requesting updated therapy notes. Request for LINER INSERTER to send via [employer] today. Auth has been pending since 01/19 through [employer]. [facility] to receive approval today. Discharge Milestones and Delays Expected Date/Time: 01/23/2023 Midday Disposition: Intermediate Facility Transport status: No current request Discharge [...] (Days): 0 GMLOS: No GMLOS Documented T [facility] 01-24-2023 Plan of care note The [...] Progressing Goal: Promote nutritional intake Outcome: Progressing [facility] 01-23-2023 Note Formatting of this n ote might be different from the original. Spoke to Mckenzie with admissions today at [facility] and she states that insurance auth is still pending. Will continue to await approval/denial. Will update Dr Stout via confidential message. [facility] 01-23-2023 Note Formatting of this n ote might be different from the original. Spoke to Mckenzie with admissions today at [facility] and she states that insurance auth is still pending. Will continue to await approval/denial. Will update Dr Stout via confidential message. [facility] 01-22-2023 Plan of care note The patient [...] Goal: Promote nutritional intake Outcome: Progressing T [facility] 01-22-2023 Note Formatting of this n ote might be different from the original. S/W, follow up After Hours Forms placed on patient chart in the event insurance approval come back later today. PAS-ID completed in HENS T [facility] 01-22-2023 Note Formatting of this n ote might be different from the original. S/W, follow up After Hours Forms placed on patient chart in the event insurance approval come back later today. PAS-ID completed in HENS T [facility] 01-22-2023 Plan of care note Problem: [...] goals. Barriers to progression include cognition. T [facility] 01-22-2023 Procedure note Images from the original note were not included. SPEECH LANGUAGE PATHOLOGY MODIFIED BARIUM SWALLOW STUDY Patient Name: Tita Keith : 1935 Today's Date: 01/22/2023 Visit Info / [facility] ADMISSION DATE: 01/17/2023 ADMITTING DIAGNOSIS: has [...] I) Current Diet Liquid Consistency: Mildly Thick ([place]) Patient complaints: Pt without complaints. Pt with intermittent coughing with po. Referring Diagnosis: Dysphagia, dementia, hyperglycemic Consistencies Administered: Dysphagia Pureed (Dysphagia I), [place] cup, Thin cup Procedure Method: Cup, Feed [...] Vellecular residuals with all-moderate thin, severe pudding, [id number] (difficulty to determine d/t unable to completely [...] able. Plan & Recommendations Recommendations/Treatment: Recommendations/Treat Requires SETTER AUTOMATIC SPINNING LATHE Intervention: Yes Recommendations comment: Recommend Palliative diet [...] intake Therapeutic Interventions: Therapeutic PO trials with SETTER AUTOMATIC SPINNING LATHE Education Given: diet recommendations Education Response: Needs reinforcement Prognosis: Prognosis Prognosis for safe diet advancement: fair Barriers to reach goals: cognitive deficits, age Barriers/Prognosis Comment: Pt is at risk for aspiration with pharyngeal residuals. Individuals consulted Consulted and agree with results and recommendations: Patient, Physician (Call/message to Call SETTER AUTOMATIC SPINNING LATHE left for pt's daughter.) The patient was [...] Expected End: 02/02/23 Met: 01/22/23 Therapy Time SETTER AUTOMATIC SPINNING LATHE Individual Minutes Time In: 1005 Time Out: 1025 Minutes: 20 BRITTNY Mattson [facility] 01-22-2023 Procedure note Images from the original note were not included. SPEECH LANGUAGE PATHOLOGY MODIFIED BARIUM SWALLOW STUDY Patient Name: Tita Keith : 1935 Today's Date: 01/22/2023 Visit Info / [facility] ADMISSION DATE: 01/17/2023 ADMITTING DIAGNOSIS: has [...] I) Current Diet Liquid Consistency: Mildly Thick ([place]) Patient complaints: Pt without complaints. Pt with intermittent coughing with po. Referring Diagnosis: Dysphagia, dementia, hyperglycemic Consistencies Administered: Dysphagia Pureed (Dysphagia I), [place] cup, Thin cup Procedure Method: Cup, Feed [...] Vellecular residuals with all-moderate thin, severe pudding, [id number] (difficulty to determine d/t unable to completely [...] able. Plan & Recommendations Recommendations/Treatment: Recommendations/Treat Requires SETTER AUTOMATIC SPINNING LATHE Intervention: Yes Recommendations comment: Recommend Palliative diet [...] intake Therapeutic Interventions: Therapeutic PO trials with SETTER AUTOMATIC SPINNING LATHE Education Given: diet recommendations Education Response: Needs reinforcement Prognosis: Prognosis Prognosis for safe diet advancement: fair Barriers to reach goals: cognitive deficits, age Barriers/Prognosis Comment: Pt is at risk for aspiration with pharyngeal residuals. Individuals consulted Consulted and agree with results and recommendations: Patient, Physician (Call/message to Call SETTER AUTOMATIC SPINNING LATHE left for pt's daughter.) The patient was [...] Expected End: 02/02/23 Met: 01/22/23 Therapy Time SETTER AUTOMATIC SPINNING LATHE Individual Minutes Time In: 1005 Time Out: 1025 Minutes: 20 BRITTNY Mattson documented in this encounter [facility] 01-22-2023 Note Formatting of this n ote is different from the original. Images from the original note were not included. Care Management Progress Note Patient remains on 4 South today with generalized weakness, Hyperglycemia, improving. MBS today for difficulty, SETTER AUTOMATIC SPINNING LATHE following. Patient plans to discharge to [facility] with insurance authorization pending. Called and spoke to Mckenzie in Admissions today and she states auth is still pending. Discharge Milestones and Delays Expected Date/Time: 01/19/2023 Disposition: Intermediate Facility Discharge Milestones Place discharge order Complete med reconciliation Request transport Case mgmt discharge readiness Expected Discharge History Expected Date/Time Set By Reviewed At 01/19/2023 Kayleigh Stout DO 01/19/2023 11:01 AM 01/20/2023 Afternoon Kayleigh Stout DO 01/19/2023 9:05 AM 01/20/2023 Kayleigh Stout DO 01/18/2023 3:40 PM 01/20/2023 Kayleigh Stout, DO 01/17/2023 10:11 PM 01/19/2023 Janet Lomeli MD 01/17/2023 9:39 PM Length of Stay (Days): 0 GMLOS: No GMLOS Documented [facility] 01-22-2023 Note Formatting of this n ote is different from the original. Images from the original note were not included. Care Management Progress Note Patient remains on 4 South today with generalized weakness, Hyperglycemia, improving. MBS today for difficulty, SETTER AUTOMATIC SPINNING LATHE following. Patient plans to discharge to [facility] with insurance authorization pending. Called and spoke to Mckenzie in Admissions today and she states auth is still pending. Discharge Milestones and Delays Expected Date/Time: 01/19/2023 Disposition: Intermediate Facility Discharge Milestones Place discharge order Complete med reconciliation Request transport Case mgmt discharge readiness Expected Discharge History Expected Date/Time Set By Reviewed At 01/19/2023 Kayleigh Stout, DO 01/19/2023 11:01 AM 01/20/2023 Afternoon Kayleigh Stout, DO 01/19/2023 9:05 AM 01/20/2023 Kayleigh Stout, DO 01/18/2023 3:40 PM 01/20/2023 Kayleigh Stout DO 01/17/2023 10:11 PM 01/19/2023 Janet Lomeli MD 01/17/2023 9:39 PM Length of Stay (Days): 0 GMLOS: No GMLOS Documented [facility] 01-21-2023 Note Formatting of this n ote might be different from the original. Reviewed careport. NO authorization has been obtained a this time. Will update attending and primary care nurse if auth obtained over the weekend. [facility] 01-21-2023 Note Formatting of this n ote might be different from the original. Reviewed careport. NO authorization has been obtained a this time. Will update attending and primary care nurse if auth obtained over the weekend. [facility] 01-20-2023 Hospital Discharg e instructions Margarita Herrera RN - 01/19/2023 9:05 AM EDT Continuity of Care Form Patient Name: Tita Keith : 1935 Admit date: 01/17/2023 Discharge date: 01/26 Code Status Order: DNR-CCA Advance Directives: N Admitting Physician: Kayleigh Stout DO PCP: No primary care provider on file. Discharging Nurse: Sherry Discharging Hospital Unit/Room#: B4-460/B4-460 A Discharging Unit Phone Number: [phone] Emergency Contact: Extended Emergency Contact Information Primary Emergency Contact: TylerKayleigh Mobile Relation: Child Secondary Emergency Contact: Mike [...] Minimal assistance Toileting Minimal assistance Feeding Independent Programming Equipment Operator Minimal assistance Med Delivery yes Wound Care Documentation and Therapy: Elimination: Continence: Bowel: no Bladder: no Urinary Catheter: None Colostomy/Ileostomy/Ileal Conduit: None Date of Last BM: unk Intake/Output Summary (Last 24 hours) at 01/19/2023 09 Last data filed at 01/18/2023 2352 Gross [...] Score: @READMISSIONRISKDETAILS@ Discharging to Facility/ Agency Name: [facility] Address: [address] [place], [place] [id number] Fax: Dialysis Facility (if applicable) Name: Address: Dialysis Schedule: Phone: Fax: [employer] 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 Update Admission H&P: No change in H&P PHYSICIAN SIGNATURE: documented in this encounter [facility] 01-20-2023 Miscellaneous Notes Patient has active discharge order in place. Patient to discharge to [facility] today. Electrical Development Engineer set up transport for 11 am. Ben Martell notified. ONLINE MERCHANDISING SPECIALIST to send pasrr through [facility]. The patient is Moderately Stable - [...] nutritional intake Outcome: Progressing Notified by [facility] that they are not willing to accept patient back at this time, ben Martell notified. I faxed over confidential line the therapy notes that was used for the insurance to deny SNF level of care to the AL. Talked to ben Martell and stated I will request for therapy to re-evaluate on 04/07 and I will fax an appeal to Lauren [phone], reference number [id number] and will wait up to 72 hours for the appeal process do be either approved or denied. [facility] states they have a LTC bed available if the family is interested. The [place] will discuss possible move from the [place] and call me tomorrow with decision. Dr Stout updated. Transport discontinued and discharge held. S/W, follow up TCC indicated patient needs transport to [facility]. Transport set via [facility] [...] is maintained or improved Outcome: Not Progressing [facility] notified me that Lauren is requesting a P2P today by noon. The phone number provided is option 4. Dr Stout notified via confidential message. [facility] states they got the call yesterday, but left message with the weekend TCC. Dr Stout notified me that she is in the office today seeing patients and is unable to complete the P2P. Call placed to Kayleigh Scott, daughter and explained that patient will return today to [facility] with HHC. Updated [facility] to assist with setting up HHC at the facility. Kayleigh states she would like a ambulance transport to be set up. I explained that patient could be charged some out of pocket costs for the transport and she is verbalizes understanding and is agreeable with us setting up transport to the [place]. The patient is Moderately Stable - Low [...] Outcome: Progressing Sent updated notes (PT/OT/Md) to [facility] via [facility] per [facility] request. Await review and response regarding ability to accept. TCC notified. Patient Choice Patient Name: TITA KEITH Date of : 1935 All Providers Sent [email or web address] Address: [id number] [place] [address] Name: [facility] Address: [address] [place], [place] [id number] Name: [facility] Phone: [phone] Address: [address] [id number] Images from the original note were not included. Care Management Progress Note Patient medically stable for discharge today with active discharge in place since Monday 01/22. Medication management per medical team. Chronic silverio in place. Therapy seen on 01/23. [facility] requesting updated therapy notes. Request for LINER INSERTER to send via [employer] today. Auth has been pending since 01/19 through [employer]. Hope to receive approval today. Discharge Milestones and Delays Expected Date/Time: 01/23/2023 Midday Disposition: Intermediate Facility Transport status: No current request Discharge [...] Spoke to Mckenzie with admissions today at [facility] and she states that insurance auth is [...] come back later today. PAS-ID completed in [facility] Problem: Knowledge Deficit Goal: Patient/family/caregiver demonstrates [...] weakness, Hyperglycemia, improving. MBS today for difficulty, SETTER AUTOMATIC SPINNING LATHE following. Patient plans to discharge to [facility] with insurance authorization pending. Called and spoke to Mckenzie in Admissions today and she states auth is still pending. Discharge Milestones and Delays Expected Date/Time: 01/19/2023 Disposition: Intermediate Facility Discharge Milestones Place discharge order Complete med reconciliation Request transport Case mgmt discharge readiness Expected Discharge History Expected Date/Time Set By Reviewed At 01/19/2023 Kayleigh Stout DO 01/19/2023 11:01 AM 01/20/2023 Afternoon Kayleigh Stout, 01/19/2023 9:05 AM 01/20/2023 Kayleigh Stout, DO 01/18/2023 3:40 PM 01/20/2023 Kayleigh Stout DO 01/17/2023 10:11 PM 01/19/2023 Janet Lomeli MD 01/17/2023 9:39 PM Length of Stay (Days): 0 GMLOS: No GMLOS Documented Reviewed careport. NO authorization has been obtained a this time. Will update attending and primary care nurse if auth obtained over the weekend. Reviewed careport. No authorization obtained. Did call and speak with Linh at [facility] [phone] and request that she call me if auth obtained.. [facility] and that they are going to proceed with starting insurance authorization. Dr Stout notified via confidential message. Referral placed to [facility] per TCC request. Await review and response regarding ability to accept. TCC notified. Request for LINER INSERTER to place referrals to [facility], [facility], and [facility]. Will wait for accepting facility to start insurance auth. Weekend TCC to be updated via [facility] for possible weekend discharge. Tasked weekend therapy to request patient to have updated notes on Sunday via Careport. Care Managment Initial Assessment Date: 01/19/2023 Patient Name: Tita Keith : 1935 Patient Information Source of Information: Patient Wire Turning Machine Operator Name/Contact Information: Kayleigh Viverosmaddison Cognition/Language: Confused at baseline (history of dementia) Permission given to speak with patient statement services representative/caregiver as indicated: Yes Confirmation of Payer with patient/family: Yes Payer Name: Lauren Medicare [place]: No Confirmation of Primary Care Physician: Confirmed PCP Name: Marj Plasencia Seen in last 2 years?: Yes Primary Caregiver: Other (Comment) (Staff at facility) If assistance needed, confirmed caregiver ready, willing and able to care for patient at discharge: Yes Confirmed with: [place] [facility] Arrangements Current Residence: (Assisted Living) Number of Floors 1 Number of Entry Steps: (Level Entry) Bed/Bath Levels: Both first floor Facility: Assisted Living Facility Name: [facility] in [place], [place] memory care Plan to Return: Yes (after rehab) Lives with: Alone Support Systems: technical support manager/social staff worker, Family members, Children, Therapist Activities of [...] Yes ([facility]) Meal Preparation: Assistance Provider Meal [...] be discharged to: SNF Vs Home with C Discharge Planning Actions: Continue to follow, Intermediate Facility referral indicated [place] of choice: [place] of choice discussed Patient's Choice Rights and [employer] and Collaborative Relationships Disclosed as Indicated for Post-Acute Care: Yes Interdisciplinary Team Engagement: PT/OT, Home Health Care Social Work Referral for: Additional Information: Patient is from [facility] with memory care. He at baseline uses a rollator/WC to ambulate. He has medical insurance with prescription coverage. Admitted for generalized weakness/falls. Reports of patient being non ambulatory. Difficulty swallowing, SETTER AUTOMATIC SPINNING LATHE seen and Dysphagia diet. Hyperglycemia, DM2. IVF. CT head neg. CXR neg. UA neg. Therapy recommending SNF. Called daughter to review discharge plan and possible need for rehab prior to returning to [facility]. I left contact information via confidential voice mail and awaiting return call. Margarita Herrera RN documented in this encounter [facility] 01-20-2023 Note Formatting of this n ote might be different from the original. [facility]. No authorization obtained. Did call and speak with Linh at [facility] [phone] and request that she call me if auth obtained.. [facility] 01-20-2023 Note Formatting of this n ote might be different from the original. Reviewed careport. No authorization obtained. Did call and speak with Linh at [facility] [phone] and request that she call me if auth obtained.. [facility] 01-19-2023 Note Formatting of this n ote might be different from the original. [facility] and stated they are willing to accept and that they are going to proceed with starting insurance authorization. Dr Stout notified via confidential message. [facility] 01-19-2023 Note Formatting of this n ote might be different from the original. [facility] Mckenzie Melendez called today and stated they are willing to accept and that they are going to proceed with starting insurance authorization. Dr Stout notified via confidential message. [facility] 01-19-2023 Note Formatting of this n ote might be different from the original. Referral placed to [facility] via Careport per TCC request. Await review and response regarding ability to accept. TCC notified. T [facility] 01-19-2023 Note Formatting of this n ote might be different from the original. Referral placed to [facility] via Careport per TCC request. Await review and response regarding ability to accept. TCC notified. [facility] 01-19-2023 Note Formatting of this n ote might be different from the original. Request for LINER INSERTER to place referrals to [facility], [facility], and [facility]. Will wait for accepting facility to start insurance auth. Weekend TCC to be updated via Careport for possible weekend discharge. Tasked weekend therapy to request patient to have updated notes on Sunday via Careport. [facility] 01-19-2023 Note Formatting of this n ote might be different from the original. Request for [facility] to place referrals to [facility], [facility], and [facility]. Will wait for accepting facility to start insurance auth. Weekend TCC to be updated via Careport for possible weekend discharge. Tasked weekend therapy to request patient to have updated notes on Sunday via Careport. [facility] 01-19-2023 Note Formatting of this n ote might be different from the original. Care Managment Initial Assessment Date: 01/19/2023 Patient Name: Tita Keith : 1935 Patient Information Source of Information: Patient Wire Turning Machine Operator Name/Contact Information: Kayleigh Scott Cognition/Language: Confused at baseline (history of dementia) Permission given to speak with patient statement services representative/caregiver as indicated: Yes Confirmation of Payer with patient/family: Yes Payer Name: [employer]na Medicare [place]: No Confirmation of Primary Care Physician: Confirmed PCP Name: Marj Plasencia Seen in last 2 years?: Yes Primary Caregiver: Other (Comment) (Staff at facility) If assistance needed, confirmed caregiver ready, willing and able to care for patient at discharge: Yes Confirmed with: [place] [facility] Arrangements Current Residence: (Assisted Living) Number of Floors 1 Number of Entry Steps: (Level Entry) Bed/Bath Levels: Both first floor Facility: Assisted Living Facility Name: [facility] in [place], [place] memory care Plan to Return: Yes (after rehab) Lives with: Alone Support Systems: technical support manager/social staff worker, Family members, Children, Therapist Activities of [...] Yes (Transport to be set up by [facility] for rehab) Meal Preparation: Assistance Provider [...] be discharged to: SNF Vs Home with [facility] Discharge Planning Actions: Continue to follow, Intermediate Facility referral indicated [place] of choice: [place] of choice discussed Patient's Choice Rights and [employer] and Collaborative Relationships Disclosed as Indicated for Post-Acute Care: Yes Interdisciplinary Team Engagement: PT/OT, Home Health Care Social Work Referral for: Additional Information: Patient is from [facility] with memory care. He at baseline uses a rollator/WC to ambulate. He has medical insurance with prescription coverage. Admitted for generalized weakness/falls. Reports of patient being non ambulatory. Difficulty swallowing, SETTER AUTOMATIC SPINNING LATHE seen and Dysphagia diet. Hyperglycemia, DM2. IVF. CT head neg. CXR neg. UA neg. Therapy recommending SNF. Called daughter to review discharge plan and possible need for rehab prior to returning to [facility]. I left contact information via confidential voice mail and awaiting return call. Margarita Herrera RN [facility] 01-19-2023 Note Formatting of this n ote might be different from the original. Care Managment Initial Assessment Date: 01/19/2023 Patient Name: Tita Keith : 1935 Patient Information Source of Information: Patient Wire Turning Machine Operator Name/Contact Information: Kayleigh Acevedomarielletrevon Cognition/Language: Confused at baseline (history of dementia) Permission given to speak with patient statement services representative/caregiver as indicated: Yes Confirmation of Payer with patient/family: Yes Payer Name: Lauren Medicare [place]: No Confirmation of Primary Care Physician: Confirmed PCP Name: Marj Plasencia Seen in last 2 years?: Yes Primary Caregiver: Other (Comment) (Staff at facility) If assistance needed, confirmed caregiver ready, willing and able to care for patient at discharge: Yes Confirmed with: [place] [facility] Ar[facility]ements Current Residence: (Assisted Living) Number of Floors 1 Number of Entry Steps: (Level Entry) Bed/Bath Levels: Both first floor Facility: Assisted Living Facility Name: [facility] in [place], [place] memory care Plan to Return: Yes (after rehab) Lives with: Alone Support Systems: technical support manager/social staff worker, Family members, Children, Therapist Activities of [...] Yes (Transport to be set up by [facility] for rehab) Meal Preparation: Assistance Provider [...] be discharged to: SNF Vs Home with [facility] Discharge Planning Actions: Continue to follow, Intermediate Facility referral indicated [place] of choice: [place] of choice discussed Patient's Choice Rights and [employer] and Collaborative Relationships Disclosed as Indicated for Post-Acute Care: Yes Interdisciplinary Team Engagement: PT/OT, Home Health Care Social Work Referral for: Additional Information: Patient is from [facility] with memory care. He at baseline uses a rollator/WC to ambulate. He has medical insurance with prescription coverage. Admitted for generalized weakness/falls. Reports of patient being non ambulatory. Difficulty swallowing, SETTER AUTOMATIC SPINNING LATHE seen and Dysphagia diet. Hyperglycemia, DM2. IVF. CT head neg. CXR neg. UA neg. Therapy recommending SNF. Called daughter to review discharge plan and possible need for rehab prior to returning to [facility]. I left contact information via confidential voice mail and awaiting return call. Margarita Herrera RN [facility] 01-18-2023 Emergency department Note Pt found again undressed with all wires pulled off. Moved patient to a closer room to nurses station. Fela Jameson RN 01/18/23 1501 [facility] 01-18-2023 Emergency department Note Pt found [...] 01/18/23317 Patient was able to void. Shira Jaems LPN 01/17/232119 Pt BGL was 577 on [...] oriented to what only. [facility]. Reportedly at his facility the last [...] INSULIN PEN NEEDLE 31G X 6 MM [facility] USE TO INJECT LANTUS NIGHTLY LISINOPRIL 20 [...] Abnormal Glucose >450 (*) Narrative: Performed by: [facility], [address] [place] [address] CLIA ID: [id number] POCT VENOUS BLOOD GAS UNSOLICITED RESULTS - Abnormal pH, Venous 7.373 pCO2, Venous 48.8 pO2, Venous <29.6 (*) TCO2, Venous 29.9 (*) HCO3, Venous 28.4 (*) Base Excess, Venous 2.6 SO2, Venous 35.0 (*) FIO2 21 Narrative: Performed by: [facility], [address] [place] [address] CLIA ID: [id number] MANUAL DIFFERENTIAL - Abnormal Adjusted WBC 8.90 [...] Culture. Procedure Abnormality Status --------- ------ Complete Urinalysis[[id number]] Abnormal Final result Please view results for [...] Global volume loss with small vessel ischemia. [WY] 2107 XR chest 1 view IMPRESSION: No acute cardiopulmonary process identified. [WY] 2130 GLUCOSE(!!): 533 [WY] ED Course User Index [WY] Janet Lomeli MD Diagnoses as of 01/17/232148 [...] well determine disposition based off diagnostic testing. Fsxzr-la-fzek glucose is 450. Medications sodium chloride 0.9 [...] Lomeli MD Resident 01/17/232148 Emergency Department Encounter [facility] ED Patient: Tita Keith : 1935 Date of Evaluation: 01/17/2023 ED Supervising Physician: Karel Ghosh DO I independently examined and evaluated Tita Keith. This will serve as my Supervisory note as the music producer of record and shared attestation. I did [...] Kelley RN 01/17/232134 documented in this encounter [facility] 01-18-2023 Emergency department Note Pt pulled male external catheter off himself by mistake. Provided patient with full bed change and new gown and pericare was performed. I did order lunch for patient and once it is here, will assist him with eating. New male external catheter was placed. No further concerns at this time. Fela Jameson RN 01/18/23 1236 [facility] 01-18-2023 History and physical note Department [...] oriented to what only. [facility]. Reportedly at his facility the last [...] Pt/ot geni STOUT DO 01/18/23 9:27 AM [facility] 01-18-2023 History and physical note Department [...] oriented to what only. [facility]. Reportedly at his facility the last [...] floor Cover with ssi Speech eval Pt/ot geni STOUT DO 01/18/23 9:27 AM documented in this encounter [facility] 01-18-2023 Emergency department Note Gave patient a small sip of water. Patient tolerated fairly well but did display some trouble swallowing. Will continue to hold PO meds, Dr. Stout informed. Fela Jameson RN 01/18/23 0832 [facility] 01-18-2023 Emergency department Note Introduced myself [...] us his birthday. Fela Jameson RN 01/18/23 0702 [facility] 01-17-2023 Emergency department Note This RN called and spoke with Dr Stout to advise that pt is unable to swallow pills. Per Dr Stout hold patients PO meds. Chelsie Kelley RN 01/18/23317 [facility] 01-17-2023 Emergency department Note Patient was able to void. Shira James LPN 01/17/232119 [facility] 01-17-2023 Emergency department Note Pt BGL was 577 on BGT machine. Confirmation drawn with patient initial bloodwork. Chelsie Kelley RN 01/17/232021 [facility] 01-17-2023 Emergency department Note Bed: 15 Expected date: Expected time: Means of arrival: Comments: Latasha Kelley RN 01/17/231954 [facility] 01-17-2023 Emergency department Note Bed: 16 Expected date: Expected time: Means of arrival: Comments: Room 15 Chelsie Kelley RN 01/17/232134 [facility] 01-17-2023 Physician Emergency department Note EMERGENCY [...] oriented to what only. [facility]. Reportedly at his facility the last [...] INSULIN PEN NEEDLE 31G X 6 MM [facility] USE TO INJECT LANTUS NIGHTLY LISINOPRIL 20 [...] Abnormal Glucose >450 (*) Narrative: Performed by: [facility], [address] [place] [address] CLIA ID: [id number] POCT VENOUS BLOOD GAS UNSOLICITED RESULTS - Abnormal pH, Venous 7.373 pCO2, Venous 48.8 pO2, Venous <29.6 (*) TCO2, Venous 29.9 (*) HCO3, Venous 28.4 (*) Base Excess, Venous 2.6 SO2, Venous 35.0 (*) FIO2 21 Narrative: Performed by: [facility], [address] [place] [address] CLIA ID: [id number] MANUAL DIFFERENTIAL - Abnormal Adjusted WBC 8.90 [...] Culture. Procedure Abnormality Status --------- ------ Complete Urinalysis[[id number]] Abnormal Final result Please view results for [...] Global volume loss with small vessel ischemia. [WY] 2107 XR chest 1 view IMPRESSION: No acute cardiopulmonary process identified. [WY] 2130 GLUCOSE(!!): 533 [WY] ED Course User Index [WY] Janet Lomeli MD Diagnoses as of 01/17/232148 [...] well determine disposition based off diagnostic testing. Rgwav-xv-twdw glucose is 450. Medications sodium chloride 0.9 [...] Medicine Provider Janet Lomeli MD Resident 01/17/232148 [facility] 01-17-2023 Physician Emergency department Note Emergency Department Encounter [facility] ED Patient: Tita Keith : 1935 Date of Evaluation: 01/17/2023 ED Supervising Physician: Karel Ghosh DO I independently examined and evaluated Tita Keith. This will serve as my Supervisory note as the music producer of record and shared attestation. I did [...] [employer] Karel Ghosh DO 01/17/232141 T [facility] Work Phone: 01-05-2023 Emergency department Note [facility] bedside to transport patient to facility. Discharge Packet provided to ambulance to return to facility. Chrystal Melendez RN 01/05/23421 [facility] 01-05-2023 Emergency department Note [facility] bedside to transport patient to facility. Discharge Packet provided to ambulance to return to facility. Chrystal Melendez RN 01/05/23 0422 Patient ambulated with two RN's and a [...] Melendez RN 01/05/23 0324 Emergency Department Encounter [facility] ED Patient: Tita Keith : 1935 Date of Evaluation: 01/05/2023 ED Provider: Kee Mishra MD Note: I wore an N95 mask and gloves during this encounter. CHIEF COMPLAINT: Ground-level fall HPI: Tita Keith is a 87 y.o. male with PMH Per accompanying documentation and veterans employment representative report history of dementia, hypertension, diabetes, not on antiplatelet or anticoagulation medication, presents from assisted living facility by veterans employment representative with concern for ground-level fall. Paramedics provide [...] ophthalmic ointment ( Left Eye Given 01/05/23 8081) Tita Keith is a 87 y.o. male [...] for clarification. Kee Mishra MD Acute Care [facility] Kee Mishra MD 01/05/23 0422 Patient brought via EMS to room 7 presenting with c/o of fall at facility; patient was up going to the bathroom and had an unwitnessed fall. Per senior care patient is at cognitive baseline, upon assessment [...] handed to physician. documented in this encounter [facility] 01-05-2023 Emergency department Note Patient ambulated with two RN's and a walker, able to bear weight without complaints of pain. Chrystal Melendez RN 01/05/23 0346 [facility] 01-05-2023 Hospital Discharg e instructions Kee [...] through Care Everywhere.Closed Head Injury Discharge Instructions (Martiniquais)Contusion Discharge Instructions (Martiniquais)Conjunctivitis ([facility]) ED (Martiniqu[place])documented in this encounter [facility] 01-05-2023 Emergency department Note Family called RN into the room, patient requested a urinal, RN provided patient with a urinal, patient was able to urinate about 100mL into urinal but depends was soaked as well. RN got patient cleaned up and placed a new goan and new depends on patient; family remains bedside. Call light in reach. Chrystal Melendez RN 01/05/23 0324 [facility] 01-05-2023 Emergency department Triage note Patient brought via EMS to room 7 presenting with c/o of fall at facility; patient was up going to the bathroom and had an unwitnessed fall. Per senior care patient is at cognitive baseline, upon assessment [...] reach. EKG completed and handed to physician. [facility] 01-05-2023 Physician Emergency department Note Emergency Department Encounter [facility] ED Patient: Tita Keith : 1935 Date of Evaluation: 01/05/2023 ED Provider: Kee Mishra MD Note: I wore an N95 mask and gloves during this encounter. CHIEF COMPLAINT: Ground-level fall HPI: Tita Keith is a 87 y.o. male with PMH Per accompanying documentation and veterans employment representative report history of dementia, hypertension, diabetes, not on antiplatelet or anticoagulation medication, presents from assisted living facility by veterans employment representative with concern for ground-level fall. Paramedics provide [...] for clarification. Kee Mishra MD Acute Care [facility] Kee Mishra MD 01/05/23421 [facility] 03-06-2022 Note Discharge Summary Tita Keith [...] DIAGNOSTIC STUDIES: None CONSULTANTS: IP CONSULT TO BLOWER INSTALLER IP CONSULT TO ENDOCRINOLOGY MEDICATION CHANGES: Lantus [...] Your Medications These medications were sent to [address] [phone] - [phone] [place] [id number] ? Insulin Pen Needle 32G X 6 [...] Complexity: follow up within 7-14 calendar days (46638) [] Severe Complexity: follow up within 7 calendar days (64706) FOLLOW UP TESTING, PENDING RESULTS OR REFERRALS AT TRANSITIONAL CARE VISIT: [] Yes [] No PENDING STUDIES: No DISPOSITION: Home FACILITY/HOME CARE AGENCY NAME: Home health agency Follow up with Dudley Cobb MD [address] [place] [phone] Schedule an appointment as soon as possible [...] SIGNED: Ilene Willingham MD 03/06/2022, 2:29 PM [facility] Evaluation note Diagnosis Fall from ground level- Primary Discharge of left eye [facility] Diagnosis Hyperosmolar hyperglycemic state (HHS) (HCC)- Primary Hyperosmolar hyperglycemic state (HHS) (HCC) Hyperglycemia Other abnormal glucose Severe malnutrition (CMS/HCC) (HCC) Nutritional marasmus documented in this encounter [facility] note* Diagnosis COVID-19- Primary COVID-19 Hypoxia Hypoxemia Edema of right upper arm 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) [facility]No assessment information availableWAs[facility] Work Phone: Evaluation note* Diagnosis Pneumonia [...] (HCC) Nutritional marasmus [facility]* Diagnosis Closed nondisplaced intertrochanteric fracture of right femur, initial encounter ([facility])- Primary Closed nondisplaced intertrochanteric fracture of right femur, initial encounter ([facility]) documented in this encounter [facility] note* Diagnosis Closed nondisplaced intertrochanteric fracture of right femur, initial encounter (HCC)- Primary S/P ORIF (open reduction internal fixation) fracture documented in this encounter [facility] note* Diagnosis Closed nondisplaced intertrochanteric fracture of right femur, initial encounter (HCC)- Primary documented in this encounter [facility] for referral (narrative)* Consultation (Urgent) - Pending Review Specialty Diagnoses / Procedures Referred By Darlene t Referred To Contact Ophthalmology Diagnoses Fall from ground level Discharge of left eye Procedures [place] OFFICE/OUTPATIENT [facility] 60-74 MINUTES Kee Mishra MD [address] [place] [address] [facility] [address] [place] [address] Referral ID Status Reason Start Date Expiration Date Visits Requested Visits Authorized [id number] Pending Review Specialty Services Required 01/05/2023 01/05/2024 1 1 [facility] for referral (narrative)No reason for referral information availableWAshtabula [facility] Hospital Work Phone: Summary Purpose Family History [...] Relationship Healthcare Agent Relationshi p Communication Kayleigh Acevedoinnamaddison Child Health Care Agent Latest Code Status [...] Agents on File Name Relationship Healthcare Agent [facility] Communication Kayleigh [facility] Agent Advance Directive Response Recorded Date/ Time Living Will No September 23 3:59pm Power of Systems Eng No September 23, 2023 3:59pm Documents on File Type Date Recorded Patient Wire Turning Machine Operator Expl anation Advance Directives and Livin g [...] Agents on File Name Relationship Healthcare Agent [facility] Communication [facility] Advance Directive Response Recorded Date/ Time Living Will No September 23 4:59pm Power of Systems Eng No September 23, 2023 4:59pm Documents on File Type Date Recorded Patient Wire Turning Machine Operator Expl anation Advance Directives and Living Will 12/13/2023 9:02 AM Advance Directives and Living Will 09/20/2023 11:51 AM DNR (Do Not Resuscitate) 04/02/2025 9:24 AM [place] DNR Form DNR (Do Not Resuscitate) 12/06/2023 [...] Relationship Healthcare Agent Relationshi p Communication Kayleigh [place] healthcare Child Health Care Agent Healthcare Agents on File Name Relationship Healthcare Agent Relationshi p Communication Kayleigh [place] healthcare Child Health Care Agent Healthcare Agents on File Name Relationship Healthcare Agent Relationshi p Communication Kayleigh [place] healthcare Child Health Care Agent Healthcare Agents on File Name Relationship Healthcare Agent Relationshi p Communication Kayleigh [place] healthcare Child Health Care Agent Chief Complaint and Reason for Visit Chief Complaint FALL Chief Complaint FALL LAB WORK LAB WORK LABWORK Chief Complaint FALL LAB WORK LAB WORK LABWORK LABWORK Chief Complaint LAB WORK LABWORK LABWORK LABWORK LAB WORK LABWORK CARE HOME LAB WORK Chief Complaint LABWORK LABWORK LABWORK LAB WORK LABWORK CARE HOME LAB WORK CARE HOME LAB WORK Chief Complaint Admit Date CARE HOME LAB WORK November 07, 2024 5:00am LABWORK February 12, 2025 5:0 0am Chief Complaint Admit Date CARE HOME LAB WORK February 11, 2025 1 :40pm LABWORK February 12, 2025 5:0 0am LABWORK March 02, 2025 5:00a m Chief Complaint Admit Date CARE HOME LAB WORK February 11, 2025 1 :40pm LABWORK February 12, 2025 5:0 0am CARE HOME LAB WORK February 17, 2025 4 :00am LABWORK March 02, 2025 5:00a m Reason for Referral Specialty Diagnoses / Procedures Referred By Contac t Referred To Contact uRiz Braun MD [address], [address] [address] Referral ID Status Reason Start Date Expiration Date V isits Requested Visits Authorized [id number] Pending Review 1 1 Additional Source Comments (unrecognized sect ion and content) No Status Records FoundNo Status Records FoundNo Status Records Found INFORMATION SOURCE (unrecogn ized section and content) DATE CREATED AUTHOR 08/17/2022 [facility] DATE CREATED AUTHOR AUTHOR'S ORGANIZ ATION 04/23/2025 [facility] DATE CREATED AUTHOR AUTHOR'S ORGANIZ ATION 08/21/2025 [facility] Reason for Visit (unrecogniz ed [...] To Contact Diagnoses Hyperosmolar hyperglycemic state (HHS) (HCC) Procedures . Kayleigh Stout DO [address] [place] [address] [facility] [address] [place] [address] Referral ID Status Reason Start Date Expiration Date Visits Re quested Visits Authorized [id number] 1 1 Reason Comments Shortness of Breath Specialty Diagnoses / Procedures Referred By Contac t Referred To Contact Diagnoses COVID-19 Procedures . Kayleigh Stout DO [address] [place] [address] [facility] [address] [place] [address] Referral ID Status Reason Start Date Expiration Date Visits Re quested Visits Authorized [id number] 1 1 Reason Comments Shortness of Breath Fever Pnuemonia Specialty Diagnoses / Procedures Referred By Contac t Referred To Contact Diagnoses Pneumonia due to infectious organism, unspecified laterality, unspecified part of lung Procedures [id number] due to infectious organism, unspecified laterality, unspecified part of lung Kayleigh Stout, DO [address] [place] [address] [facility] [address] [place] [address] Referral ID Status Reason Start Date Expiration Date Visits Re quested Visits Authorized [id number] 1 1 Reason Comments Fall Pt had a fall last n ight at [facility]. [facility] performed an X-Ray that shows a right femur fracture. Pt is AxOx0 at baseline. Hip Pain Confirmed right femu r fracture. Specialty Diagnoses / Procedures Referred By Contac t Referred To Contact Diagnoses Closed nondisplaced intertrochanteric fracture of right femur, initial encounter ([facility]) Procedures . Shay Velazco MD [address] [place] [address] Phone: tel: fax: [facility] [address] [place] [phone] Phone: tel: Referral ID Status Reason Start Date Expiration Date Visits Re quested Visits Authorized [id number] 1 1 Reason Onset Date Comments Other [...] (New Bag - Prov ider: Chrystal Melendez, RN)0252 (Stopped - Provider: Chrystal Melendez, RN) Scheduled Medication Order 01/24/2023 01/25/2023 01/26/2023 docusate sodium (Colace) capsule 100 mg 100 mg, Oral, 2 times daily, First dose on Sun01/17/23 at 2355, Do not crush or break. 1222 (Given - Provider: Edis Palomino RN)2020 (Not Given - Provider: Jana Silverio RN - Reason: Patient/family refused) 0805 (Given - Provider: Edis Palomino RN)2043 (Given - Provider: Maty Michael RN) 0920 (Not Given - Provider: Sherry Renteria, ISABEL - Reason: Patient/family refused) enoxaparin (Lovenox) syringe 30 mg 30 mg, SubCUTAneous, Every 24 hours scheduled (Daily), First dose (after last modification) on Judith 01/18/23 at 0900, Indication of Use: Prophylaxis-DVT/PE, Indications: Prophylaxis of Venous Thromboembolism 1218 (Given - Provider: Edis Palomino RN) 0805 (Given - Provider: Edis Palomino RN) 0920 (Given - Provider: Sherry Renteria, ISABEL) erythromycin (Romycin) 5 MG/GM ophthalmic ointment Left [...] RN) 0029 (Given - Provider: Maty Michael, RN)0523 (Given - Provider: Maty Michael RN)1200 (Canceled Entry - Provider: Automatic Discharge Provider - Comment: Automatically canceled at discontinue of medication order) insulin glargine (Lantus) injection 14 Units 14 Units, SubCUTAneous, Nightly, First dose on Sun01/17/23 at 2355 2020 (Given - Provider: Jana Silverio RN - Comment: 203) 2049 (Given - Provider: Maty Michael RN) Insulin Lispro (Humalog) injection 0-18 Units(Linked [...] 20 mg, Oral, Daily, First dose on Judith 01/18/23 at 0900 1220 (Given - Provider: Edis Palomino RN) 0805 (Given - Provider: Edis Palomino RN) 09 (Given - Provider: Sherry Renteria, ISABEL) mirtazapine (Remeron) tablet 15 mg 15 mg, Oral, Nightly, First dose on Sun01/17/23 at 2355 2021 (Given - Provider: Jana Silverio RN) 2043 (Given - Provider: Maty Michael, ISABEL) QUEtiapine (SEROquel) tablet 12.5 mg 12.5 mg, Oral, 2 times daily, First dose (after last modification) on Sun01/19/23 at 1330 1222 (Given - Provider: Edis Palomino RN)2021 (Given - Provider: Jana Silverio RN) 08 (Given - Provider: Edis Palomino RN)2042 (Given - Provider: Maty Michael, ISABEL) 0920 (Given - Provider: Sherry Renteria, ISABEL) sodium chloride 0.9 % infusion 100 mL/hr, IntraVENous, Once, On Sun01/17/23 at 2150, For 1 dose tamsulosin (Flomax) 24 hr capsule 0.8 mg 0.8 mg, Oral, Nightly, First dose on Sun01/17/23 at 2355, Do not crush, chew, or split. 2023 (Given - Provider: Jana Silverio RN) 2042 (Given - Provider: Maty Michael, ISABEL) [...] with meals, First dose on Sun01/18/23 at 0800
High Dose Correction Algorithm Glucose: [...] 2130 (Given - Provider: Marina Salazar RN) Insulin [...] Salazar RN) 2130 (Given - Provider: Marina Salazar, ISABEL) mirtazapine (Remeron) tablet 15 mg 15 mg, Oral, Nightly, First dose on Sun09/10/23 at 2100 2151 (Given - Provider: Marina Salazar RN) 2129 (Given - Provider: Marina Salazar RN) sodium chloride 0.9% (NS) flush 10 mL 10 mL, IntraVENous, Every 12 hours scheduled (2 times per day), First dose on Sun09/10/23 at 2100 0928 (Given - Provider: Karel Maldonado RN)2204 (Given - Provider: Marina Salazar RN) 0900 (Not Given - Provider: Karel Maldonado RN - Reason: IV Fluids Infusing)213 (Given - Provider: Marina Salazar RN) 0806 [...] Peter Fernando, ISABEL)0208 (Given - Provider: Peter Fernanod, ISABEL) hydrALAZINE (Apresoline) injection 10 mg 10 mg, IntraVENous, Every 4 hours PRN, high blood pressure, >150, Starting on Sun09/10/23 at 2030 0052 (Given - Provider: Marina Salazar, ISABEL) LORazepam (Ativan) tablet 0.25 mg 0.25 mg, [...] pupils, RR < 8; notify primary team rock mason apprentice if used ondansetron (Zofran) injection 4 mg(Linked [...] Maldonado RN) 925 (Given - Provider: Karel Maldonado, ISABEL) sodium chloride 0.9 % infusion 5-250 mL/hr, [...] Use: Prophylaxis-DVT/PE, Indications: Prophylaxis of Venous Thromboembolism 0826 (Given - Provider: Chelsey Robles RN) 0900 [...] at 2215 2224 (Given - Provider: Angel Dean, ISABEL) 2037 (Given - Provider: Angel Dean RN) [...] 350-400 10 Units Above 400 12 Units 2099 (Not Given - Provider: Angel Dean RN [...] at 0900 0825 (Given - Provider: Chelsey Rolbes RN)2013 (Given - Provider: Angel Dean RN) 0956 (Given - Provider: Chelsey Robles RN)2036 (Given - Provider: Angel Dean RN) 0943 (Given - Provider: Candace Eastman RN) sodium chloride 0.9% (NS) flush 10 mL 10 mL, IntraVENous, Every 12 hours scheduled (2 times per day), First dose on Sun12/07/23 at 0900 0826 (Given - Provider: Chelsey Robles, RN)2014 (Given - Provider: Angel Dean RN) 999 (Given - Provider: Chelsey Robles RN)2040 (Given [...] have IV access., Starting on Sun12/07/23 at 044, After administration, attempt intravenous access and start [...] given IV 1214 (Given - Provider: Chelsey Robles RN) 0952 (Given - Provider: Chelsey Robles RN) hydrALAZINE (Apresoline) injection 10 mg 10 [...] sedation for opioid reversal - MUST notify rock mason apprentice provider immediately after first dose, may give [...] split. 1741 (Given - Provider: Mar Lee, ISABEL) 0606 (Given - Provider: Magdy Griffin RN)1500 (Canceled Entry - Provider: Automatic Discharge Provider - Comment: Automatically canceled at discontinue of medication order) barium sulfate (Varibar [place], Varibar Honey) 40 % suspension 5 mL [...] Magdy Griffin RN)0053 (Stopped - Provider: Magdy Griffni, ISABEL)0624 (New Bag - Provider: Magdy Griffin RN)0700 [...] - Comment: patient unable to take oral) 0827 (Given - Provider: Mar Lee RN)2016 (Not Given - Provider: Magdy Griffin RN - Reason: Patient/family refused) 0958 (Given - Provider: Lianet Claire, ISABEL) erythromycin (Romycin) 5 MG/GM ophthalmic ointment 1 Application 1 Application, Left Eye, Nightly, First dose on Sun03/31/25 at 2100, Apply Amount per Dose: 0.5 inch (~1 cm) per dose. 1310 (DEC Hold - Provider: Automatic Transfer Provider - Reason: Patient not available)1752 (DEC Unhold - Provider: Automatic Transfer Provider)2206 (Given - Provider: Magdy Griffin, RN) 2019 (Given - Provider: Magdy Griffin, RN) insulin glargine (Lantus) injection 4 Units 4 Units, SubCUTAneous, Nightly, First dose on Sun03/31/25 at 2100 1310 (DEC Hold - Provider: Automatic Transfer Provider - Reason: Patient not available)175 (DEC Unhold - Provider: Automatic Transfer Provider)2204 (Given - Provider: Magdy Griffin, RN) 2014 (Given - Provider: Magdy Griffin, RN) Insulin Lispro (Humalog) injection 0-12 Units 0-12 Units, SubCUTAneous, 3 times daily with meals, First dose on Sun04/01/25 at 1200, Medium Dose Correction Algorithm Glucose: Dose: LESS than 150 No Insulin 150-199 2 Units 200-249 4 Units 250-299 6 Units 300-349 8 Units 350-400 10 Units Above 400 12 Units 1141 (Given - Provider: Mar Lee, ISABEL)1741 (Given - Provider: Mar Lee, ISABEL) 0958 [...] available)1752 (DEC Unhold - Provider: Automatic Transfer Provider) 0827 (Given - Provider: Mar Lee, ISABEL) 0958 (Given - Provider: Lianet Claire, ISABEL) Melatonin disintegrating tablet 5 mg 5 mg, Oral, Nightly, First dose on Sun03/31/25 at 2100 1310 (DEC Hold - Provider: Automatic Transfer Provider - Reason: Patient not available)175 (DEC Unhold - Provider: Automatic Transfer Provider)2211 (Not Given - Provider: Magdy Griffin RN - Reason: Patient/family refused - Comment: patient unable to take) 2016 (Given - Provider: Magdy Griffin RN) mirtazapine (Remeron) tablet 15 mg 15 mg, Oral, Nightly, First dose on Sun03/31/25 at 2100 1310 (DEC Hold - Provider: Automatic Transfer Provider - Reason: Patient not available)175 (DEC Unhold - Provider: Automatic Transfer Provider)2210 [...] Transfer Provider - Reason: Patient not available)1752 ([facility] Unhold - Provider: Automatic Transfer Provider)2210 (Not Given - Provider: Magdy Griffin RN - Reason: Patient/family refused - Comment: patient unable to take) 0827 (Given - Provider: Mar Lee, ISABEL)2015 (Given - Provider: Magdy Griffin RN) 0958 (Given - Provider: Lianet Claire RN) sodium chloride 0.9% (NS) flush 5-40 mL [...] 1017 (Given - Provider: Nate Davis RN)1310 (DEC Hold - Provider: Automatic Transfer Provider - Reason: Patient not available)175 (DEC Unhold - Provider: Automatic Transfer Provider)2212 (Not Given - Provider: Magdy Griffin RN - Reason: IV Fluids Infusing) 0830 (Given - Provider: Mar Lee, ISABEL)2025 (Not [...] Transfer Provider)2211 (Not Given - Provider: Magdy Griffin RN - Reason: Patient/family refused - Comment: patient unable to take) 2016 (Not Given - Provider: Magdy Griffin RN - Reason: Patient/family refused) Continuous Medication Order 03/31/2025 04/01/2025 04/02/2025 dextrose 5 % and sodium chloride 0.45 % infusion (CANCELED) 75 mL/hr, IntraVENous, Continuous, Starting on Sun03/30/25 at 2350 0141 (New Bag - Provider: Flakita Tenorio RN) 1315 (Stopped - Provider: Mar Lee, ISABEL) dextrose 5 % and sodium chloride 0.45 % infusion () 75 mL/hr, IntraVENous, Continuous, Starting on Sun03/31/25 at 0915, For 12 hours 1016 (New Bag - Provider: Nate Davis RN)1300 (Stopped - Provider: Emil Huber RN - Comment: going to OR)1810 (Restarted - Provider: Emil Huber, RN)2300 (Stopped - Provider: Magdy Griffin, ISABEL) PRN Medication Order 03/31/2025 04/01/2025 04/02/2025 acetaminophen (Tylenol) tablet 650 mg 650 mg, Oral, Every 6 hours PRN, mild pain (1-3), Starting on Sun04/01/25 at 0845, Maximum dose of acetaminophen is 4000 mg from all sources in 24 hours. 1338 (Given - Provider: Mar Lee, RN)2354 (Given - Provider: Magdy Griffin, ISABEL) dextrose 5 % infusion 100 mL/hr, IntraVENous, PRN, Blood sugar less than 70mg/dL, Starting on Sun03/31/25 at 0911, Start infusion following administration of dextrose 50% or glucagon. 1310 ([facility] Hold - Provider: Automatic Transfer Provider - Reason: Patient not available)175 ([facility] Unhold - Provider: Automatic Transfer Provider) dextrose [...] Glucostabilizer, dose as instructed per system. 1310 ([facility] Hold - Provider: Automatic Transfer Provider - Reason: Patient not available)175 ([facility] Unhold - Provider: Automatic Transfer Provider) glucagon [...] 15 minutes x2 and notify provider. 1310 ([facility] Hold - Provider: Automatic Transfer Provider - Reason: Patient not available)175 ([facility] Unhold - Provider: Automatic Transfer Provider) glucose [...] 15 minutes x2 and notify provider. 1310 ([facility] Hold - Provider: Automatic Transfer Provider - Reason: Patient not available)175 ([facility] Unhold - Provider: Automatic Transfer Provider) HYDROmorphone [...] 1024 (Given - Provider: Nate Davis RN)1310 ([facility] Hold - Provider: Automatic Transfer Provider - Reason: Patient not available)175 ([facility] Unhold - Provider: Automatic Transfer Provider) Insulin [...] anxiety, Starting on Sun03/31/25 at 0911 1310 ([facility] Hold - Provider: Automatic Transfer Provider - Reason: Patient not available)175 ([facility] Unhold - Provider: Automatic Transfer Provider) naloxone (Narcan) injection 0.4 mg 0.4 mg, IntraVENous, Every 5 min PRN, opioid reversal, respiratory depression, Starting on Sun03/31/25 at 1006, +++ For RR <10, pinpoint pupils, over sedation for opioid reversal - MUST notify rock mason apprentice provider immediately after first dose, may give IM or SQ if no IV access +++ 1310 ([facility] Hold - Provider: Automatic Transfer Provider - Reason: Patient not available)175 ([facility] Unhold - Provider: Automatic Transfer Provider) ondansetron (Zofran) injection 4 mg(Linked Group 1) 4 mg, IntraVENous, Every 6 hours PRN, nausea, vomiting, Starting on Sun03/31/25 at 0911, 1st Line. Give IV if patient is unable to take orally. If inadequate response within 60 minutes, proceed to next-line agent or contact provider if no further options ordered. 1310 ([facility] Hold - Provider: Automatic Transfer Provider - Reason: Patient not available)1753 ([facility] Unhold - Provider: Automatic Transfer Provider) ondansetron [...] blister pack until just before administering. 1310 ([facility] Hold - Provider: Automatic Transfer Provider - Reason: Patient not available)1753 ([facility] Unhold - Provider: Automatic Transfer Provider) sodium [...] less into rate field of order. 1310 ([facility] Hold - Provider: Automatic Transfer Provider - Reason: Patient not available)1753 ([facility] Unhold - Provider: Automatic Transfer Provider) sodium [...] or Central Line = 20 mL/lumen 1310 (DEC Hold - Provider: Automatic Transfer Provider - Reason: Patient not available)1753 (DEC Unhold - Provider: Automatic Transfer Provider) Linked [...] Provider Active S tart: March 03, 2025 Retail Planning Manager Relationship Specialty Start Date End Date Dudley Cobb MD [address] [place] [address] PCP - General 12/07/16 Retail Planning Manager Relationship Specialty Start Date End Date Dudley Cobb MD [address] [place] [phone] PCP - General 12/07/16 Retail Planning Manager Relationship Specialty Start Date End Date Dudley Cobb MD [address] [place] [phone] PCP - General 12/07/16 Retail Planning Manager Relationship Specialty Start Date End Date Marj Plasencia [address] [place] [address] PCP - General Internal Medicine 01/19/23 Retail Planning Manager Relationship Specialty Start Date End Date Marj Plasencia [address] [place] [phone] PCP - General Internal Medicine 01/19/23 Team [...] Active Javy REDDY MD Attending Provider Active Retail Planning Manager Relationship Specialty Start Date End Date Marj Plasencia [address] [place] [phone] PCP - General Internal Medicine 01/19/23 Team [...] March 02, 2025 End: March 02, 2025 Retail Planning Manager Relationship Specialty Start Date End Date GokulMarj pena [address] [place] [address] PCP - General Internal Medicine 01/19/23 Retail Planning Manager Relationship Specialty Start Date End Date Marj Plasencia [address] [place] [phone] PCP - General Internal Medicine 01/19/23 Team Status: Inactive Member Role Status Dates Dr. Javy Lynn Sr. , DO Primary Care Provider Active Start: February 17, 2025 End: February 17, 2025 Javy REDDY MD Attending Provider Active S tart: February 17, 2025 End: February 17, 2025 Javy REDDY MD Referring Provider Active S tart: February 17, 2025 End: February 17, 2025 Retail Planning Manager Relationship Specialty Start Date End Date Marj Plasencia [address] [place] [phone] PCP - General Internal Medicine 01/19/23 Retail Planning Manager Relationship Specialty Start Date End Date Marj Plasencia [address] [place] [phone] PCP - General Internal Medicine 01/19/23 Goals [...] BE BASED ON THE PRIMARY CLINICAL RECORDS. [facility] [employer] [facility] provides no warranty or guarantee of the accuracy or completeness of information in this document.
== END ==
LOC: OLS.ACH 05:00
PROVIDERS: PCP Internal Medicine; Visit Provider Internal Medicine
DX: E11.3293 Type 2 diabetes mellitus with mild nonproliferative diabetic retinopathy without macular edema, bilateral (principal)
CPT/HCPCS: 36415; 83036